=== PATIENT | male | born 1950 | race Caucasian/White ===

== ENCOUNTER 2017-06-16 20:15 | Emergency (ER) | payer OTHER ==
[~2017-06-16] VITALS: Ht 182.9 cm; Wt 80.1 kg
[~2017-06-16 20:15] MED LIST: ALLO100T PO; AMLO5TAB2 PO; ERGO500037 PO; HYDR12.55 PO; LOSA1TAB PO; NICO1DIS8 TD
[2017-06-16 20:16] VITALS: Ht 182.9 cm; Wt 80.1 kg
[2017-06-16] MEDS ORDERED: SODIUM CHLORIDE 0.9% 1000ML 1,000 ML IV STA (20:25)
[2017-06-16 20:27] VITALS: O2SAT 96
[2017-06-16 20:42] VITALS: TEMP 36.6
[2017-06-16 20:54] LABS: BASO % 0.5 %; BASO ABS # 0.05 K/uL (0-0.2); EOS % 7.1 %; EOS ABS # 0.75 K/uL (0-0.5); HEMATOCRIT 31.7 % (42-52); HEMOGLOBIN 10.7 g/dL (14.0-18.0); IG# 0.03 K/uL (0.00-0.02); LYMPH % 9.6 %; LYMPH ABS # 1.02 K/uL (1.2-3.4); MEAN CELL VOLUME 81.5 fL (80-100); MEAN CORPUSCULAR HEMOGLOBIN 27.5 pg (25-34); MEAN CORPUSCULAR HGB CONC 33.8 g/dl (32-36); MONO % 5.6 %; NEUT % 76.9 %; NEUT ABS # 8.18 K/uL (1.4-6.5); PLATELET COUNT 267 K/uL (130-400); RED CELL DISTRIBUTION WIDTH CV 16.9 % (11.5-14.5); RED CELL DISTRIBUTION WIDTH SD 50.8 fL (36.4-46.3); WHITE BLOOD COUNT 10.63 K/uL (4.8-10.8)
[2017-06-16 21:08] LABS: INR 0.9 (0.9-1.1); PTT PATIENT 24.5 SECONDS (21.0-31.0)
[2017-06-16 21:13] LABS: ALBUMIN 3.4 gm/dl (3.4-5.0); ALT/SGPT 14 U/L (12-78); BLOOD UREA NITROGEN 49 mg/dl (7-18); CALCIUM 8.6 mg/dl (8.5-10.1); CARBON DIOXIDE 22 mmol/L (21-32); CREATININE 3.49 mg/dl (0.60-1.40); GLUCOSE 79 mg/dl (70-99); LIPASE 309 U/L (73-393); POTASSIUM 4.6 mmol/L (3.5-5.1); SODIUM 133 mmol/L (136-145)
--- NOTE | 2017-06-16 21:14 | DIAGNOSTIC IMAGING REPORT ---
CT SCAN OF THE BRAIN WITHOUT IV CONTRAST CLINICAL HISTORY: Near syncope. COMPARISON STUDY: CT of the brain dated 09/03/2012. TECHNIQUE: Unenhanced axial CT scan of the brain is performed from the vertex to the skull base. A dose lowering technique was utilized adhering to the principles of ALARA. CT DOSE: 614.27 mGy.cm FINDINGS: Brain parenchyma: There are age-related involutional changes noting minimal subcortical and periventricular microangiopathic change. Left frontal and left temporal encephalomalacia is consistent with a remote insult. There is associated ex vacuo dilatation of the anterior horn of left lateral ventricle. There is no hemorrhage, mass effect, or evidence of acute territorial ischemia by CT criteria. Rosas-white matter is preserved. No extra-axial fluid collection is seen. Ventricles, sulci, cisterns: Prominent secondary to involutional change. Intracranial vasculature: There is minimal atherosclerotic calcification of the cavernous carotid arteries. Coils are suggested in the sylvian fissure along the course of the left middle cerebral artery. Calvarium: There are postoperative changes from left temporal craniotomy and craniectomy. Sinuses and mastoids: The visualized paranasal sinuses are clear. The mastoid air cells are well pneumatized. Orbits: The bony orbits are grossly intact. IMPRESSION: 1. There is no hemorrhage, mass effect, or evidence of acute territorial ischemia by CT criteria. 2. Postoperative changes involving the left convexity with foci of left frontal and left temporal encephalomalacia as above. Correlation with the patient's medical history will be required. Electronically signed by: Jeet Ramirez M.D. 06/16/2017 9:13 PM Dictated Date/Time: 06/16/2017 9:09 PM
[2017-06-16 21:24] LABS: ALKALINE PHOSPHATASE 60 U/L (45-117); AST/SGOT 10 U/L (15-37)
--- NOTE | 2017-06-16 21:30 | DIAGNOSTIC IMAGING REPORT ---
SINGLE VIEW CHEST CLINICAL HISTORY: Generalized weakness. Syncope. FINDINGS: An AP, portable, upright chest radiograph is compared to study dated 10/19/2011. The examination is degraded by portable technique and patient rotation. The heart is enlarged and there is atherosclerotic calcification of the thoracic aorta. Chronic interstitial thickening and apical scarring are similar to previous. Emphysematous change is suspected. No airspace consolidation or large pleural effusion is identified. Apparent density projecting over the left lateral lung base is likely related to overlying soft tissue density. No pneumothorax is seen. The skeletal structures are osteopenic. The bony thorax is grossly intact. IMPRESSION: 1. Cardiomegaly and suspect emphysema. No acute cardiopulmonary abnormality is seen. 2. Apparent increase in density overlying the lateral left lung bases is likely related to overlying soft tissue. Follow-up with a PA and lateral examination is recommended for reassessment. Electronically signed by: Jeet Ramirez M.D. 06/16/2017 9:29 PM Dictated Date/Time: 06/16/2017 9:27 PM
[2017-06-16] MEDS ORDERED: CALC0.2510 PO (21:50)
[2017-06-16 23:27] VITALS: BP 132/77; PULSE 75; O2SAT 95
--- NOTE | 2017-06-17 00:41 | EMERGENCY ROOM VISIT NOTE ---
History Report prepared by Joaquim: Robby Hoang Under the Supervision of: Dr. Melchor Whaley M.D. First contact with patient: 20:22 Chief Complaint: SYNCOPE (NEAR SYNCOPE) Stated Complaint: SYNCOPE - HX BRAIN ANEURISM History of Present Illness The patient is a 66 year old male who presents to the Emergency Room with complaints of a resolved near syncopal episode that occurred earlier today. The patient states that he was drinking some alcohol today and has not eaten food. He reports that he has been cold all day and has been sitting in front of the wood burner. The patient states that he felt like he had to burp, but reports he was not able to. He states that he went to play darts with his family, but was not able to hit near the dart board, which is unusual. The patient is accompanied by his daughter who states that the patient's nephew saw the patient fall to one knee and lower himself to the floor. He states that during this episode, he felt nauseous. She states that his eyes were glassy and his speech was slightly slurred. His daughter states that the patient's episode lasted for 15 minutes. The patient states that he is currently complaining of back pain, which he reports has been happening for two weeks. He reports that his legs have also been swelling more than normal for the last couple of weeks. The patient denies LOC, headache, fevers, chills, diaphoresis, visual changes, neck pain, chest pain, breathing difficulties, vomiting, abdominal pain, melena , hematochezia, urinary symptoms, numbness, weakness, lymphadenopathy, rash, or other complaints. He reports a history of PKD and an aneurysm in 2012. Source of History: patient, family Onset: earlier today Position: other (global) Quality: other (global) Timing: resolved Associated Symptoms: + nausea, + back pain Review of Systems See HPI for pertinent positives and negatives. A total of ten systems were reviewed and were otherwise negative. Past Medical & Surgical Medical Problems: (1) Benign hypertension (2) Emphysema (3) Polycystic kidney disease, adult type Family History Patient reports no known family medical history. Social History Smoking Status: Current Every Day Smoker Alcohol Use: occasionally Housing Status: lives with family Occupation Status: unemployed Current/Historical Medications Scheduled Amlodipine Besylate (Norvasc), 10 MG PO DAILY Calcitriol (Rocaltrol Cap), 0.25 MCG PO DAILY Sodium Bicarbonate (Antacid) (Sodium Bicarbonate), 1,300 MG PO TID Allergies Coded Allergies: Lisinopril (Unverified Adverse Reaction, Unknown, COUGH, 06/16/17) Physical Exam Vital Signs Date Time Temp Pulse Resp B/P (MAP) Pulse Ox O2 Delivery O2 Flow Rate FiO2 06/16/17 23:27 75 15 132/77 95 Room Air 06/16/17 23:20 74 21 06/16/17 23:05 74 20 06/16/17 23:00 72 18 06/16/17 22:32 77 16 132/87 98 Room Air 06/16/17 21:38 70 16 135/75 78 130/74 77 153/78 06/16/17 20:43 69 06/16/17 20:42 36.6 67 16 143/78 96 Room Air 06/16/17 20:27 96 Room Air 06/16/17 20:16 75 18 185/88 98 Room Air Physical Exam GENERAL: Awake, alert, well-appearing, in no distress HENT: Normocephalic, atraumatic. Oropharynx unremarkable. EYES: Normal conjunctiva. Sclera non-icteric. NECK: Supple. No nuchal rigidity. FROM. No JVD. RESPIRATORY: Clear to auscultation. CARDIAC: Regular rate, normal rhythm. Extremities warm and well perfused. Pulses equal. ABDOMEN: Soft, non-distended. No tenderness to palpation. No rebound or guarding. No masses. RECTAL: Deferred. MUSCULOSKELETAL: Chest examination reveals no tenderness. The back is symmetrical on inspection without obvious abnormality. There is no CVA tenderness to palpation. No joint edema. LOWER EXTREMITIES: Calves are equal size bilaterally and non-tender. 1+ edema. Chronic venous discoloration. NEURO: Normal sensorium. No sensory or motor deficits noted. SKIN: No rash or jaundice noted. Medical Decision & Procedures ER Provider Diagnostic Interpretation: Radiology results as stated below per my review and radiologist interpretation: SINGLE VIEW CHEST CLINICAL HISTORY: Generalized weakness. Syncope. FINDINGS: An AP, portable, upright chest radiograph is compared to study dated 10/19/2011. The examination is degraded by portable technique and patient rotation. The heart is enlarged and there is atherosclerotic calcification of the thoracic aorta. Chronic interstitial thickening and apical scarring are similar to previous. Emphysematous change is suspected. No airspace consolidation or large pleural effusion is identified. Apparent density projecting over the left lateral lung base is likely related to overlying soft tissue density. No pneumothorax is seen. The skeletal structures are osteopenic. The bony thorax is grossly intact. IMPRESSION: 1. Cardiomegaly and suspect emphysema. No acute cardiopulmonary abnormality is seen. 2. Apparent increase in density overlying the lateral left lung bases is likely related to overlying soft tissue. Follow-up with a PA and lateral examination is recommended for reassessment. Electronically signed by: Jeet Ramirez M.D. 06/16/2017 9:29 PM Dictated Date/Time: 06/16/2017 9:[address] SCAN OF THE BRAIN WITHOUT IV CONTRAST CLINICAL HISTORY: Near syncope. COMPARISON STUDY: CT of the brain dated 09/03/2012. TECHNIQUE: Unenhanced axial CT scan of the brain is performed from the vertex to the skull base. A dose lowering technique was utilized adhering to the principles of ALARA. CT DOSE: 614.27 mGy.cm FINDINGS: Brain parenchyma: There are age-related involutional changes noting minimal subcortical and periventricular microangiopathic change. Left frontal and left temporal encephalomalacia is consistent with a remote insult. There is associated ex vacuo dilatation of the anterior horn of left lateral ventricle. There is no hemorrhage, mass effect, or evidence of acute territorial ischemia by CT criteria. Rosas-white matter is preserved. No extra-axial fluid collection is seen. Ventricles, sulci, cisterns: Prominent secondary to involutional change. Intracranial vasculature: There is minimal atherosclerotic calcification of the cavernous carotid arteries. Coils are suggested in the sylvian fissure along the course of the left middle cerebral artery. Calvarium: There are postoperative changes from left temporal craniotomy and craniectomy. Sinuses and mastoids: The visualized paranasal sinuses are clear. The mastoid air cells are well pneumatized. Orbits: The bony orbits are grossly intact. IMPRESSION: 1. There is no hemorrhage, mass effect, or evidence of acute territorial ischemia by CT criteria. 2. Postoperative changes involving the left convexity with foci of left frontal and left temporal encephalomalacia as above. Correlation with the patient's medical history will be required. Electronically signed by: Jeet Ramirez M.D. 06/16/2017 9:13 PM Dictated Date/Time: 06/16/2017 9:09 PM Laboratory Results 06/16/17 20:35 Red Blood Count 3.89, Mean Corpuscular Volume 81.5, Mean Corpuscular Hemoglobin 27.5, Mean Corpuscular Hemoglobin Concent 33.8, Mean Platelet Volume 8.0, Neutrophils (%) (Auto) 76.9, Lymphocytes (%) (Auto) 9.6, Monocytes (%) (Auto) 5.6, Eosinophils (%) (Auto) 7.1, Basophils (%) (Auto) 0.5, Neutrophils # (Auto) 8.18, Lymphocytes # (Auto) 1.02, Monocytes # (Auto) 0.60, Eosinophils # (Auto) 0.75, Basophils # (Auto) 0.05 06/16/17 20:35 Test 06/16/17 20:35 White Blood Count 10.63 K/uL (4.8-10.8) Red Blood Count 3.89 M/uL (4.7-6.1) Hemoglobin 10.7 g/dL (14.0-18.0) Hematocrit 31.7 % (42-52) Mean Corpuscular Volume 81.5 fL (80-100) Mean Corpuscular Hemoglobin 27.5 pg (25-34) Mean Corpuscular Hemoglobin Concent 33.8 g/dl (32-36) Platelet Count 267 K/uL (130-400) Mean Platelet Volume 8.0 fL (7.4-10.4) Neutrophils (%) (Auto) 76.9 % Lymphocytes (%) (Auto) 9.6 % Monocytes (%) (Auto) 5.6 % Eosinophils (%) (Auto) 7.1 % Basophils (%) (Auto) 0.5 % Neutrophils # (Auto) 8.18 K/uL (1.4-6.5) Lymphocytes # (Auto) 1.02 K/uL (1.2-3.4) Monocytes # (Auto) 0.60 K/uL (0.11-0.59) Eosinophils # (Auto) 0.75 K/uL (0-0.5) Basophils # (Auto) 0.05 K/uL (0-0.2) RDW Standard Deviation 50.8 fL (36.4-46.3) RDW Coefficient of Variation 16.9 % (11.5-14.5) Immature Granulocyte % (Auto) 0.3 % Immature Granulocyte # (Auto) 0.03 K/uL (0.00-0.02) Prothrombin Time 9.9 SECONDS (9.0-12.0) Prothromb Time International Ratio 0.9 (0.9-1.1) Activated Partial Thromboplast Time 24.5 SECONDS (21.0-31.0) Partial Thromboplastin Ratio 0.9 Urine Color YELLOW Urine Appearance CLEAR (CLEAR) Urine pH 5.0 (4.5-7.5) Urine Specific Kennedy 1.015 (1.000-1.030) Urine Protein 2+ (NEG) Urine Glucose (UA) NEG (NEG) Urine Ketones NEG (NEG) Urine Occult Blood 1+ (NEG) Urine Nitrite NEG (NEG) Urine Bilirubin NEG (NEG) Urine Urobilinogen NEG (NEG) Urine Leukocyte Esterase TRACE (NEG) Urine WBC (Auto) 1-5 /hpf (0-5) Urine RBC (Auto) 0-4 /hpf (0-4) Urine Hyaline Casts (Auto) 0 /lpf (0-5) Urine Epithelial Cells (Auto) 5-10 /lpf (0-5) Urine Bacteria (Auto) NEG (NEG) Anion Gap 8.0 mmol/L (3-11) Est Creatinine Clear Calc Drug Dose 22.9 ml/min Estimated GFR () 20.0 Estimated GFR (Non- 17.2 BUN/Creatinine Ratio 14.2 (10-20) Calcium Level 8.6 mg/dl (8.5-10.1) Magnesium Level 2.5 mg/dl (1.8-2.4) Total Bilirubin 0.3 mg/dl (0.2-1) Direct Bilirubin < 0.1 mg/dl (0-0.2) Aspartate Amino Transf (AST/SGOT) 10 U/L (15-37) Alanine Aminotransferase (ALT/SGPT) 14 U/L (12-78) Alkaline Phosphatase 60 U/L (45-117) Total Protein 7.0 gm/dl (6.4-8.2) Albumin 3.4 gm/dl (3.4-5.0) Lipase 309 U/L (73-393) Thyroid Stimulating Hormone (TSH) 1.830 uIu/ml (0.300-4.500) Laboratory results reviewed by me Medications Administered Medications (Trade) Dose Ordered Sig/Santy Route Start Time Stop Time Status Last Admin Dose Admin Sodium Chloride 1,000 ml @ 125 mls/hr Q8H STAT IV 06/16/17 20:25 06/16/17 23:58 DC 06/16/17 21:43 125 MLS/HR ECG Indication: syncope Rate (beats per minute): 71 Rhythm: normal sinus Findings: 1st degree AV block, no acute ischemic change, other (Nonspecific IVCD) ED Course 2024: Ordered Sodium Chloride 1000 ml @ 125 mls/hr IV. 2034: The patient was evaluated in room B05. A complete history and physical exam was performed. 2325: I reevaluated the patient. Discussed results and discharge instructions: He verbalized understanding and agreement. The patient is ready for discharge. Medical Decision Prior records/ancillary studies reviewed. Triage Nursing notes reviewed and agree them. Additional history obtained from the family. The patient's history was concerning for near syncope. The patient did not eat today. He did consume some alcohol. This occurred after rising from a seated position. Differential diagnosis: Etiologies such as vasovagal event, infection, hypoglycemia, electrolyte abnormalities, cardiac sources, intracerebral event, toxicologic, neurologic, as well as others were entertained. Physical examination: As above. Nonfocal. ER treatment provided: IV hydration with normal saline On reassessment the patient felt better. The patient was able to ambulate without any recurrent symptoms. Diagnostics interpretation by me: ECG: Normal, without ischemia. No ectopy. The labs revealed an unremarkable CBC. Chemistry panel revealed chronic renal insufficiency. His creatinine is 3.4 and family states that is much better than usual. Urinalysis unremarkable. Imaging studies: CT scan and X-ray as above. No acute findings. The patient does not have any respiratory symptoms at this time. Patient was then notified of the recommended follow-up x-ray after discharge. This seems to be consistent with a near-syncopal event that likely occurred secondary to his not eating and consuming alcohol. He was not intoxicated in the emergency department. Clinically he did well. He was observed. He had resolution of symptoms prior to my seeing him. Family states he is doing well and it as at his baseline. He had no headache or symptoms to suggest subarachnoid hemorrhage. By the evaluation outlined above emergent etiologies such as infection, hypoglycemia, electrolyte abnormalities, cardiac sources, intracerebral event, toxicologic, neurologic,as well as others were deemed relatively unlikely. The patient and family were informed about the findings as listed above. All questions were answered and they were pleased with the treatment. Return instructions were outlined and the patient was discharged in stable condition. Outpatient prescription management: No change Referral: The patient was referred back to his primary care physician for follow-up in 2 to 3 days for a recheck of the current condition. Medication Reconcilliation Current Medication List: was personally reviewed by me Blood Pressure Screening Patient's blood pressure: Elevated blood pressure Blood pressure disposition: Referred to PCP Impression Primary Impression: Near syncope Scribe Attestation The scribe's documentation has been prepared under my direction and personally reviewed by me in its entirety. I confirm that the note above accurately reflects all work, treatment, procedures, and medical decision making performed by me. Departure Information Dispostion Home / Self-Care Referrals No Doctor, Assigned (PCP) José Jaime PA-C Forms HOME CARE DOCUMENTATION FORM, IMPORTANT VISIT INFORMATION Patient Instructions My [facility] Additional Instructions Rest. Drink plenty of fluids. Do not skip meals. Follow-up with your primary physician this week. Return to the ER for headache, passing out, difficulty breathing, chest pain, fevers, numbness, tingling, worsening of your condition, or as needed.
[2017-11-22] MEDS ORDERED: CALC0.5C2 PO (17:56)
[2017-11-22] MEDS ORDERED: METO50TA16 PO (17:58)
[2017-11-22] MEDS ORDERED: SODI650T8 PO (20:06)
[2017-12-14] MEDS ORDERED: AMLO10TA3 PO (10:57)
[2017-12-15] MEDS ORDERED: FLM4 PO (12:39)
== END 2017-06-16 23:45 | disposition home or self-care (01) ==
LOC: C.EDB 20:16
DX: R55 Syncope and collapse (principal); I44.0 Atrioventricular block, first degree; I10 Essential (primary) hypertension; J43.9 Emphysema, unspecified; Q61.3 Polycystic kidney, unspecified; F17.200 Nicotine dependence, unspecified, uncomplicated; Z79.899 Other long term (current) drug therapy; Z88.8 Allergy status to other drugs, medicaments and biological substances

== ENCOUNTER → 2017-09-09 | Outpatient (CLI) | payer OTHER ==
[~2017-09-09] MED LIST changes: -ALLO100T PO; +CALC0.2510 PO; -ERGO500037 PO; -HYDR12.55 PO; -LOSA1TAB PO; -NICO1DIS8 TD; +SODI650T8 PO
[2017-09-09 17:20] LABS: HEMATOCRIT 30.7 % (42-52); HEMOGLOBIN 10.3 g/dL (14.0-18.0); MEAN CELL VOLUME 79.9 fL (80-100); MEAN CORPUSCULAR HEMOGLOBIN 26.8 pg (25-34); MEAN CORPUSCULAR HGB CONC 33.6 g/dl (32-36); MEAN PLATELET VOLUME 8.5 fL (7.4-10.4); PLATELET COUNT 193 K/uL (130-400); RED CELL DISTRIBUTION WIDTH CV 18.9 % (11.5-14.5); RED CELL DISTRIBUTION WIDTH SD 55.3 fL (36.4-46.3); WHITE BLOOD COUNT 6.85 K/uL (4.8-10.8)
[2017-09-09 17:41] LABS: ALBUMIN 3.8 gm/dl (3.4-5.0); BLOOD UREA NITROGEN 57 mg/dl (7-18); CALCIUM 8.6 mg/dl (8.5-10.1); CARBON DIOXIDE 23 mmol/L (21-32); CREATININE 4.18 mg/dl (0.60-1.40); GLUCOSE 88 mg/dl (70-99); POTASSIUM 4.7 mmol/L (3.5-5.1); SODIUM 136 mmol/L (136-145)
[2017-09-09 17:46] LABS: PHOSPHORUS 4.2 mg/dl (2.5-4.9); TRANSFERRIN 243 mg/dl (200-360)
== END | disposition home or self-care (01) ==
LOC: C.LAB1850 15:55
PROVIDERS: ATTEND Internal Medicine Nephrology
DX: N18.9 Chronic kidney disease, unspecified (principal); E55.9 Vitamin D deficiency, unspecified

== ENCOUNTER → 2017-10-07 | Outpatient (CLI) | payer OTHER ==
[2017-10-07 17:20] LABS: HEMATOCRIT 29.6 % (42-52); HEMOGLOBIN 9.7 g/dL (14.0-18.0); MEAN CORPUSCULAR HEMOGLOBIN 26.9 pg (25-34); MEAN CORPUSCULAR HGB CONC 32.8 g/dl (32-36); MEAN PLATELET VOLUME 8.7 fL (7.4-10.4); PLATELET COUNT 208 K/uL (130-400); RED CELL DISTRIBUTION WIDTH CV 18.4 % (11.5-14.5); RED CELL DISTRIBUTION WIDTH SD 55.8 fL (36.4-46.3); WHITE BLOOD COUNT 5.14 K/uL (4.8-10.8)
[2017-10-07 21:07] LABS: ALBUMIN 3.6 gm/dl (3.4-5.0); BLOOD UREA NITROGEN 70 mg/dl (7-18); CALCIUM 8.4 mg/dl (8.5-10.1); CARBON DIOXIDE 25 mmol/L (21-32); CREATININE 4.67 mg/dl (0.60-1.40); GLUCOSE 81 mg/dl (70-99); PHOSPHORUS 5.4 mg/dl (2.5-4.9); POTASSIUM 4.9 mmol/L (3.5-5.1); SODIUM 137 mmol/L (136-145); URIC ACID 8.2 mg/dl (2.6-7.2)
== END | disposition home or self-care (01) ==
LOC: C.LABPBG 11:23
PROVIDERS: ATTEND Internal Medicine Nephrology
DX: M10.9 Gout, unspecified (principal); N18.9 Chronic kidney disease, unspecified

== ENCOUNTER 2019-04-28 16:46 | Inpatient (IN) ==
[2019-04-28] MEDS ORDERED: ALBUT/IPRATROP 3MG/0.5MG NEB 3 ML VIAL NEB ONE (16:55)
[2019-04-28] MEDS ORDERED: PIPERACILLIN/TAZOBACTAM 4.5 GM/120 ML BAG IV ONE (17:00)
[2019-04-28] MEDS ORDERED: LEVOFLOXACIN/D5W 750 MG/150 ML BAG IV STA (17:00)
[2019-04-28] MEDS ORDERED: PIPERACILL/TAZOBAC CONSULT ACTIVE PRN ×2 (17:00→20:06)
[2019-04-28] MEDS ORDERED: SODIUM CHLORIDE 0.9% 1000ML 500 ML IV ONE (17:00)
--- NOTE | 2019-04-28 17:08 | XRay Report ---
XR chest 1V portable CLINICAL HISTORY: Sepsis COMPARISON STUDY: 01/04/2019 FINDINGS: The heart is normal in size. There are right lower lung zone airspace opacities suspicious for pneumonia. There is no overt failure. 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 IMPRESSION: Right lower lobe airspace opacities suspicious for pneumonia. Clinical and radiographic f ollow-up is recommended. Electronically signed by: Gianfranco Mar M.D. 04/28/2019 5:07 PM
[2019-04-28 17:40] LABS: Basophils # (auto) 0.02 K/uL (0-0.2); Basophils % (auto) 0.2 %; Eosinophils # (auto) 0.03 K/uL (0-0.5); Eosinophils % (auto) 0.2 %; Hematocrit (blood only) 33.7 % (42-52); Hemoglobin 11.3 g/dL (14.0-18.0); Immature Granulocytes # (auto) 0.07 K/uL (0.00-0.02); Immature Granulocytes % (auto) 0.6 %; Lymphocytes # (auto) 0.82 K/uL (1.2-3.4); Lymphocytes % (auto) 6.5 %; Mean Corpuscular Hemoglobin 29.5 pg (25-34); Mean Corpuscular Hgb Conc 33.5 g/dL (32-36); Monocytes # (auto) 0.91 K/uL (0.11-0.59); Monocytes % (auto) 7.3 %; Neutrophils # (auto) 10.67 K/uL (1.4-6.5); Neutrophils % (auto) 85.2 %; Platelet Count 258 K/uL (130-400); RDW Coefficient of Variation 16.4 % (11.5-14.5); RDW Standard Deviation 53.3 fL (36.4-46.3); Red Blood Count 3.83 M/uL (4.7-6.1); White Blood Count 12.52 K/uL (4.8-10.8)
[2019-04-28 17:48] LABS: INR 1.1 (0.9-1.1); Partial Thromboplastin Time 26.9 Seconds (21.0-31.0); Prothrombin Time 10.9 Seconds (9.0-12.0)
[2019-04-28 17:48] LABS: Influenza A virus by PCR Neg for Influ A (Neg); Influenza B virus by PCR Neg for Influ B (Neg)
[2019-04-28 17:50] LABS: iSTAT Creatinine 12.9 mg/dl (0.6-1.3); iSTAT Hemoglobin 10.5 g/dl (14.0-18.0); iSTAT Ionized Calcium 1.22 mmol/l (1.12-1.32); iSTAT Potassium 3.3 mEq/L (3.3-5.0)
[2019-04-28 18:08] LABS: Alanine Aminotransferase 11 U/L (12-78); Albumin Globulin Ratio 0.7 (0.9-2); Albumin Level 2.6 gm/dl (3.4-5.0); Alkaline Phosphatase 43 U/L (45-117); Aspartate Aminotransferase 4 U/L (15-37); BUN Creatinine Ratio 5.6 (10-20); Bilirubin,Total 0.3 mg/dl (0.2-1); Blood Urea Nitrogen 67 mg/dl (7-18); Calcium 10.1 mg/dl (8.5-10.1); Carbon Dioxide 24 mmol/L (21-32); Chloride 99 mmol/L (98-107); Creatine Kinase 42 U/L (39-308); Creatinine Clr Calc Pharmacy 5.7 ml/min; Est GFR (African American) 4.4; Est GFR (Non-African American) 3.8; Globulin 3.8 gm/dl (2.5-4.0); Glucose 178 mg/dl (70-99); Magnesium 1.8 mg/dl (1.8-2.4); NT Pro B Type Natriuretic Pept 10883 pg/ml (0-900); Phosphorus 4.3 mg/dl (2.5-4.9); Potassium 3.3 mmol/L (3.5-5.1); Sodium 135 mmol/L (136-145); Total Protein 6.4 gm/dl (6.4-8.2); Troponin I < 0.015 ng/ml (0-0.045)
--- NOTE | 2019-04-28 18:46 | History & Physical Report ---
Date of Service April 28, 2019 Assessment & Plan (1) PNA (pneumonia): Noted on CXR Started on levaquin/zosyn in the ED, will continue zosyn Blood cx pending WBC elevated, monitor Flu neg (2) COPD (chronic obstructive pulmonary disease): No formal dx, but noted for wheezing and likely in exacerbation due to PNA nebs with BID mucomyst solumedrol 40mg BID Will need formal PFTs as outpt once recovered from PNA (3) Polycystic kidney disease, adult type: Currently awaiting transplant (4) Chronic kidney disease, stage 5: PD HS Follows with Dr. Cordon and Dr. Romo PD as at home Nephro c/s pending Has been working with nephro for elevated cr Cr 12.0 on admission, which is improved from recent 13.6 (5) PTSD (post-traumatic stress disorder): Pt has hx of marijuana use, started when he was in [place]. He states that he smokes 3-4x/day. Family is in the room and states that he tried to quit smoking completely and had terrible flashbacks. It was determined that the [facility] [place] helps control his PTSD and this should be continued. [facility] as [facility]. Pt states that he can go without for a few days and have no issues. Family states he will be fine during his admission without it. (6) Hypokalemia: Mild, will leave management to nephro (7) HTN (hypertension): continue home meds (8) Tobacco use disorder: Currently working towards cessation and down to 10 cigs/day Declines nicotine patch (9) DVT prophylaxis: Heparin for DVT proph History of Present Illness Primary Care Provider: Tj Avalos MD 68 y/o M c/o SOB and cough. Pt states he has been having issues for about the last 4 days and getting worse. He has been getting SOB with all ambulation and lately at rest. He is even SOB with prolonged conversation prior to arrival. He has not had any appetite and has had nothing to eat x2 days, which is not typical for him. Family states that he is usually quite active but he has not been able to do anything the last 2 days. Pt states he has never been sick like this in the past. Pt denies fever, chest pain, abd pain, n/v/c/d, LE pain or swelling. Pt was given abx, nebs, steroids in the ED and states that he feels a bit better than prior, but not much. He is no longer SOB with conversation, but has not been OOB. Pt does not wear home O2 or have hx of inhaler use. Pt has hx of marijuana use, started when he was in [place]. He states that he smokes 3-4x/day. Family is in the room and states that he tried to quit smoking completely and had terrible flashbacks. It was determined that the [place] helps control his PTSD and this should be continued. [facility] and [facility] are [facility] of his use as well. Pt states that he can go without for a few days and have no issues. Family states he will be fine during his admission without it. Allergies Allergy/AdvReac Type Severity Reaction Status Date / Time lisinopril AdvReac Unknown COUGH Verified 04/28/19 17:56 Home Medications Home Medications Medication Instructions Recorded Confirmed Type amlodipine 10 mg tablet 10 mg PO QAM 02/17/19 04/28/19 History acetaminophen [Tylenol Arthritis 1,300 mg PO QAM 04/19/19 04/28/19 History Pain] bumetanide 1 mg PO BID 04/19/19 04/28/19 History losartan 50 mg PO QAM 04/19/19 04/28/19 History sevelamer carbonate [Renvela] 2,400 mg PO TIDM 04/19/19 04/28/19 History tizanidine 4 mg PO Q6H PRN 04/19/19 04/28/19 History metoprolol tartrate 25 mg PO BID 04/28/19 04/28/19 History Past Med/Surg History Medical History CKD (chronic kidney disease) Social History Preferred Language: Nepali Feels Safe at Home: Yes Smoking Status: Current every day smoker Cigarettes Per Day: 10 ; Hx Alcohol Use: Yes Alcohol Intake Frequency Comment: None x2 years Hx Substance Use: Yes (daily marijuana use for PTSD) Review of Systems Review of Systems: Pertinent positives and negatives reviewed in HPI--all others negative Physical Exam Constitutional: WD/WN, vitals as above Eyes: normal visual munson by confrontation and + anicteric sclerae Neck: normal visual inspection and trachea midline Respiratory: normal respiratory effort; no respiratory distress Auscultation: + crackles and + wheezes Cardiovascular: Rate/Rhythm: regular rate and regular rhythm Gastrointestinal (Abdomen): Inspection/Auscultation: abdomen not distended Percussion/Palpation: abdomen soft; abdomen nontender Musculoskeletal: Head/Neck/Chest: normocephalic and head atraumatic negative for edema, peripheral pulses intact Skin: no rashes, warm and dry Neurologic: awake; not confused Speech / Cognition: normal speech Psychiatric: A+Ox3, euthymic affect Results & Data Vital Signs (Past 12 Hours) Vital Signs Temp Pulse Pulse Resp BP BP Pulse Ox 04/28/19 17:27 77 20 93 04/28/19 17:11 82 14 139/86 95 04/28/19 17:06 96 04/28/19 17:04 96 04/28/19 16:51 37.0 C 83 30 H 126/79 99 Diagnostic Findings CXR: RLL PNA Code Status & VTE Plan Code Status Full code. Daughter states he has a living will VTE Prophylaxis Plan VTE Prophylaxis will be ordered: Yes PG Care Time/CCT Total # of Minutes Spent Total Time Spent with Patient: Total time spent is greater than 50% in coordination of care (as documented) at patient's floor/unit and/or counseling patient:
[2019-04-28] MEDS: SEVELAMER HCL 800 MG TABLET PO SCH (19:07)
--- NOTE | 2019-04-28 19:42 | Emergency Department Note ---
Entered by Anh Chery acting as a scribe for History of Present Illness General Chief complaint: Shortness of Breath/Dyspnea Stated complaint: SOB,COUGH Time Seen by Provider: 04/28/19 16:47 History of Present Illness Provider complaint: shortness of breath Onset (ago): day(s) 2 Pain Consistency: + other (worsening) Maximum Pain Intensity: 0 Quality: + other (shortness of breath) Associated symptoms: + cough (productive cough with yellow phlegm), + weakness and + other (dialysis at night, still makes some urine, oxygen saturation 88% wh en he walks) Treatments prior to arrival: none The patient is a 68 year old male who presents to the ED with complaints of worsening shortness of breath that started 2 days ago. Per daughter, the patient has been weaker than usual for the past 2 days as well. The patient notes that he is on dialysis at night. The patient states that he still makes a little bit of urine. The patient states that he has had a productive cough with yellow phlegm. Per daughter, the patients oxygen saturation has been 88% when he walks. The patient denies receiving any treatments prior to arrival. Home Medications Home Medications Medication Instructions Recorded Confirmed Type amlodipine 10 mg tablet 10 mg PO QAM 02/17/19 04/28/19 History acetaminophen [Tylenol Arthritis 1,300 mg PO QAM 04/19/19 04/28/19 History Pain] bumetanide 1 mg PO BID 04/19/19 04/28/19 History losartan 50 mg PO QAM 04/19/19 04/28/19 History sevelamer carbonate [Renvela] 2,400 mg PO TIDM 04/19/19 04/28/19 History tizanidine 4 mg PO Q6H PRN 04/19/19 04/28/19 History metoprolol tartrate 25 mg PO BID 04/28/19 04/28/19 History Allergies Allergy/AdvReac Type Severity Reaction Status Date / Time lisinopril AdvReac Unknown COUGH Verified 04/28/19 17:56 Past Med/Surg History Medical History Polycystic kidney disease, adult type (Chronic 09/03/12) Benign prostate hyperplasia (Chronic) Secondary hyperparathyroidism (of renal origin) (Chronic) Intracranial hemorrhage (Resolved ~2014) Chronic kidney disease, stage 5 (Chronic) Anemia (Chronic) CKD (chronic kidney disease) Social History Preferred Language: Bruneian Communication Ability: Effective Genetic Technologist Required: No Beliefs That Will Affect Care: None marital status: Unknown Current Living Situation: Family Feels Safe at Home: Yes Smoking Status: Current every day smoker Tobacco Type: cigarettes ; Cigarettes Per Day: 10 ; Hx Alcohol Use: No Hx Substance Use: Yes substance use type: marijuana Last Used Substance: Hours (ago) Review of Systems See HPI for pertinent positives & negatives. and A total of 10 systems reviewed and were otherwise negative Physical Exam Vital Signs Vital Signs - 24 hr 04/28/19 16:51 04/28/19 17:04 04/28/19 17:06 Temperature 37.0 C Temperature Source Oral Sepsis Recent Fever Within 48 Hours No Sepsis New/Unexplained Change in Mental Status No Sepsis Action Taken by Nursing No Action Required Oxygen Flow Rate - Titration Pulse Oximetry Post Tiitration Pulse Rate 83 Pulse Rate [Apical] Pulse Rhythm Regular Pulse Rhythm [Apical] Pulse Strength Normal Pulse Strength [Apical] Respiratory Rate 30 H Respiratory Effort / Characteristics Non-Labored Respiratory Depth Normal Respiratory Pattern Regular Blood Pressure 126/79 Blood Pressure [Right Arm] Blood Pressure Mean 94 Blood Pressure Mean [Right Arm] Blood Pressure Position Sitting Blood Pressure Position [Right Arm] Pulse Oximetry 99 96 96 Oxygen Delivery Method Nasal Cannula Nasal Cannula Nasal Cannula Oxygen Flow Rate 2 2 2 04/28/19 17:11 04/28/19 17:27 04/28/19 18:48 Temperature Temperature Source Sepsis Recent Fever Within 48 Hours Sepsis New/Unexplained Change in Mental Status Sepsis Action Taken by Nursing Oxygen Flow Rate - Titration 3 Pulse Oximetry Post Tiitration 91 Pulse Rate Pulse Rate [Apical] 82 77 Pulse Rhythm Pulse Rhythm [Apical] Regular Pulse Strength Pulse Strength [Apical] Normal Respiratory Rate 14 20 Respiratory Effort / Characteristics Spontaneous Non-Labored Spontaneous Respiratory Depth Normal Respiratory Pattern Regular Blood Pressure Blood Pressure [Right Arm] 139/86 Blood Pressure Mean Blood Pressure Mean [Right Arm] 103 Blood Pressure Position Blood Pressure Position [Right Arm] Sitting Pulse Oximetry 95 93 88 L Oxygen Delivery Method Room Air Nasal Cannula Room Air Oxygen Flow Rate 3 GENERAL: Awake, alert, cachectic appearing, in no acute distress HENT: Normocephalic, atraumatic. Oropharynx unremarkable. EYES: Normal conjunctiva. Sclera non-icteric. NECK: Supple. No nuchal rigidity. FROM. No JVD. RESPIRATORY: Bilateral wheezing present. CARDIAC: Regular rate, normal rhythm. Extremities warm and well perfused. Pulses equal. ABDOMEN: Soft, non-distended. No tenderness to palpation. No rebound or guarding. No masses. RECTAL: Deferred. MUSCULOSKELETAL: Chest examination reveals no tenderness. The back is symmetrical on inspection without obvious abnormality. There is no CVA tenderness to palpation. No joint edema. LOWER EXTREMITIES: Calves are equal size bilaterally and non-tender. No edema. No discoloration. NEURO: Normal sensorium. No sensory or motor deficits noted. SKIN: No rash or jaundice noted. Course 1649: Past medical records reviewed. The patient was evaluated in room B12B. A complete history and physical exam was performed. 1815: I [facility] the [facility] She will evaluate the patient for further management. Consultations Consultation #1: I discussed the patient's case with Dr. Jung [facility] Hospitalist. She will evaluate the patient for further management. Time: 18:16 Administered Medications Acetaminophen (Tylenol) 1,000 mg PO QAM [facility] Stop: 05/29/19 08:59 Last Admin: 04/30/19 09:26 Dose: 1,000 mg Documented by: [id number] Admin: 04/29/19 08:35 Dose: 1,000 mg Documented by: [id number] Acetylcysteine (Mucomyst 20%) 5 ml INH BIDR [facility] Stop: 05/28/19 20:59 Last Admin: 04/30/19 19:18 Dose: 5 ml Documented by: [id number] Admin: 04/30/19 06:57 Dose: 5 ml Documented by: [id number] Admin: 04/29/19 19:24 Dose: 5 ml Documented by: [id number] Admin: 04/29/19 10:59 Dose: Not Given Documented by: [id number] Admin: 04/28/19 20:28 Dose: 5 ml Documented by: [id number] Albuterol (Duoneb) 3 ml NEB Q4R [facility] Stop: 05/28/19 20:05 Last Admin: 05/01/19 02:43 Dose: Not Given Documented by: [id number] Admin: 04/30/19 23:05 Dose: 3 ml Documented by: [id number] Admin: 04/30/19 19:18 Dose: 3 ml Documented by: [id number] Admin: 04/30/19 15:01 Dose: 3 ml Documented by: [id number] Admin: 04/30/19 10:46 Dose: 3 ml Documented by: [id number] Admin: 04/30/19 06:57 Dose: 3 ml Documented by: [id number] Admin: 04/30/19 03:16 Dose: 3 ml Documented by: [id number] Admin: 04/29/19 23:34 Dose: 3 ml Documented by: [id number] Admin: 04/29/19 19:25 Dose: 3 ml Documented by: [id number] Admin: 04/29/19 14:56 Dose: 3 ml Documented by: [id number] Admin: 04/29/19 10:59 Dose: 3 ml Documented by: [id number] Admin: 04/29/19 07:04 Dose: 3 ml Documented by: [id number] Admin: 04/29/19 03:36 Dose: 3 ml Documented by: [id number] Admin: 04/28/19 23:19 Dose: 3 ml Documented by: [id number] Admin: 04/28/19 20:27 Dose: 3 ml Documented by: [id number] Amlodipine Besylate (Norvasc) 10 mg PO QAM [facility] Stop: 05/29/19 08:59 Last Admin: 04/30/19 09:26 Dose: 10 mg Documented by: [id number] Admin: 04/29/19 08:34 Dose: 10 mg Documented by: [id number] Bumetanide (Bumex) 1 mg PO BID17 [facility] Stop: 05/28/19 20:59 Last Admin: 04/30/19 17:09 Dose: 1 mg Documented by: [id number] Admin: 04/30/19 09:28 Dose: 1 mg Documented by: [id number] Admin: 04/29/19 17:03 Dose: 1 mg Documented by: [id number] Admin: 04/29/19 08:34 Dose: 1 mg Documented by: [id number] Admin: 04/28/19 21:07 Dose: 1 mg Documented by: [id number] Heparin Sodium (Porcine) (Heparin Sodium (Porcine)) 5,000 units SQ Q8 [facility] Stop: 05/28/19 21:59 Last Admin: 04/30/19 22:34 Dose: 5,000 units Documented by: [id number] Cosigned by: [id number] Admin: 04/30/19 14:05 Dose: 5,000 units Documented by: [id number] Cosigned by: [id number] Admin: 04/30/19 06:20 Dose: 5,000 units Documented by: [id number] Cosigned by: [id number] Admin: 04/29/19 21:37 Dose: 5,000 units Documented by: [id number] Cosigned by: [id number] Admin: 04/29/19 14:22 Dose: 5,000 units Documented by: [id number] Cosigned by: [id number] Admin: 04/29/19 05:02 Dose: 5,000 units Documented by: [id number] Cosigned by: [id number] Admin: 04/28/19 21:07 Dose: 5,000 units Documented by: [id number] Cosigned by: [id number] Losartan Potassium (Cozaar) 50 mg PO QAM [facility] Stop: 05/29/19 08:59 Last Admin: 04/30/19 09:26 Dose: 50 mg Documented by: [id number] Admin: 04/29/19 08:34 Dose: 50 mg Documented by: [id number] Metoprolol Tartrate (Lopressor) 25 mg PO BID [facility] Stop: 05/28/19 20:59 Last Admin: 04/30/19 20:16 Dose: 25 mg Documented by: [id number] Admin: 04/30/19 09:27 Dose: 25 mg Documented by: [id number] Admin: 04/29/19 20:41 Dose: 25 mg Documented by: [id number] Admin: 04/29/19 08:34 Dose: 25 mg Documented by: [id number] Admin: 04/28/19 21:07 Dose: 25 mg Documented by: [id number] Ondansetron HCl (Zofran) 4 mg IV Q6H PRN PRN Reason: Nausea Stop: 05/28/19 20:05 Last Admin: 04/30/19 02:02 Dose: 4 mg Documented by: [id number] Sevelamer HCl (Renagel) 2,400 mg PO TIDM [facility] Stop: 05/29/19 07:59 Last Admin: 04/30/19 17:09 Dose: 2,400 mg Documented by: [id number] Admin: 04/30/19 11:54 Dose: 2,400 mg Documented by: [id number] Admin: 04/30/19 09:27 Dose: 2,400 mg Documented by: [id number] Admin: 04/29/19 17:04 Dose: 2,400 mg Documented by: [id number] Admin: 04/29/19 11:59 Dose: 2,400 mg Documented by: [id number] Admin: 04/28/19 19:07 Dose: 2,400 mg Documented by: [id number] Discontinued Medications Albuterol (Duoneb) 12 ml NEB ONE ONE Stop: 04/28/19 16:56 Last Admin: 04/28/19 17:27 Dose: 12 ml Documented by: [id number] Levofloxacin/Dextrose (Levaquin/D5w) 750 mg in 150 mls @ 100 mls/hr IV NOW STA Stop: 04/28/19 18:29 Last Infusion: 04/28/19 19:37 Dose: 0 mls/hr Documented by: [id number] Admin: 04/28/19 18:05 Dose: 100 mls/hr Documented by: [id number] Piperacillin Sod/Tazobactam Sod (Zosyn) 4.5 gm in 120 mls @ 240 mls/hr IV NOW ONE Stop: 04/28/19 17:29 Last Infusion: 04/28/19 18:05 Dose: 0 mls/hr Documented by: [id number] Admin: 04/28/19 17:25 Dose: 240 mls/hr Documented by: [id number] Sodium Chloride (Nss 1000ml) 500 mls @ 999 mls/hr IV .Q31M ONE Stop: 04/28/19 17:30 Last Infusion: 04/28/19 18:37 Dose: 0 mls/hr Documented by: [id number] Admin: 04/28/19 17:25 Dose: 999 mls/hr Documented by: [id number] Methylprednisolone 40 mg/ (Syringe) 0.64 mls @ 1.5 mls/min IV BID [facility] Stop: 05/28/19 20:59 Last Admin: 04/30/19 09:28 Dose: 1.5 mls/min Documented by: [id number] Admin: 04/29/19 20:42 Dose: 1.5 mls/min Documented by: [id number] Admin: 04/29/19 08:35 Dose: 1.5 mls/min Documented by: [id number] Admin: 04/28/19 21:06 Dose: 1.5 mls/min Documented by: [id number] Piperacillin Sod/Tazobactam (Sod 3.375 gm/ Dextrose) 115 mls @ 28.75 mls/hr IV Q12H [facility]; Protocol Stop: 04/30/19 23:55 Last Infusion: 04/30/19 18:07 Dose: 0 mls/hr Documented by: [id number] Admin: 04/30/19 14:05 Dose: 28.8 mls/hr Documented by: [id number] Infusion: 04/30/19 06:12 Dose: 0 mls/hr Documented by: [id number] Admin: 04/30/19 01:56 Dose: 28.8 mls/hr Documented by: [id number] Infusion: 04/29/19 18:36 Dose: 0 mls/hr Documented by: [id number] Admin: 04/29/19 14:28 Dose: 28.8 mls/hr Documented by: [id number] Infusion: 04/29/19 05:05 Dose: 0 mls/hr Documented by: [id number] Admin: 04/29/19 01:05 Dose: 28.8 mls/hr Documented by: [id number] Bumetanide 4 mg/ Syringe 16 mls @ 4 mls/min IV ONE ONE Stop: 04/28/19 20:43 Last Admin: 04/28/19 21:13 Dose: 4 mls/min Documented by: [id number] Magnesium Oxide (Mag-Ox) 400 mg PO ONE ONE Stop: 04/29/19 17:01 Last Admin: 04/29/19 17:21 Dose: 400 mg Documented by: [id number] Medical Decision Making Differential Diagnosis Differential diagnosis: Etiologies such as infections, reactive airway disease, COPD, pneumonia, pleural effusion, pulmonary edema, ARDS, pneumothorax, CHF, cardiac ischemia, cardiac tamponade, dysrhythmia, anemia, pulmonary embolism, musculoskeletal, gastrointestinal process, as well as others were entertained. Medical Records Attestation: I reviewed the patient's medical records. Home Medications Current Medication List: was personally reviewed by me Laboratory Data Attestation: I reviewed the patient's lab results. Result diagrams: 04/30/19 06:22 04/30/19 06:22 Lab Results 04/28/19 04/28/19 04/28/19 Range/Units 17:02 17:20 17:20 WBC 12.52 H (4.8-10.8) K/uL RBC 3.83 L (4.7-6.1) M/uL Hgb 11.3 L (14.0-18.0) g/dL POC Hgb (14.0-18.0) g/dl Hct 33.7 L (42-52) % POC Hct (42-52) % MCV 88.0 (80-100) fL MCH 29.5 (25-34) pg MCHC 33.5 (32-36) g/dL RDW Std Deviation 53.3 H (36.4-46.3) fL RDW Coeff of Giovana 16.4 H (11.5-14.5) % Plt Count 258 (130-400) K/uL MPV 9.0 (7.4-10.4) fL Immature Gran % (Auto) 0.6 % Neut % (Auto) 85.2 % Lymph % (Auto) 6.5 % Thayer % (Auto) 7.3 % Eos % (Auto) 0.2 % Baso % (Auto) 0.2 % Immature Gran # (Auto) 0.07 H (0.00-0.02) K/uL Neut # (Auto) 10.67 H (1.4-6.5) K/uL Lymph # (Auto) 0.82 L (1.2-3.4) K/uL Thayer # (Auto) 0.91 H (0.11-0.59) K/uL Eos # (Auto) 0.03 (0-0.5) K/uL Baso # (Auto) 0.02 (0-0.2) K/uL PT 10.9 (9.0-12.0) Seconds INR 1.1 (0.9-1.1) APTT 26.9 (21.0-31.0) Seconds PTT Ratio 1.0 POC Sodium (135-144) mEq/L Sodium (136-145) mmol/L POC Potassium (3.3-5.0) mEq/L Potassium (3.5-5.1) mmol/L POC Chloride (101-112) mEq/L Chloride (98-107) mmol/L Carbon Dioxide (21-32) mmol/L POC Total CO2 (24-31) mEq/l Anion Gap (3-11) POC Anion Gap (16-25) mmol/L POC BUN (7-18) mg/dl BUN (7-18) mg/dl Creatinine (0.6-1.4) mg/dl POC Creatinine (0.6-1.3) mg/dl Est Cr Clr Drug Dosing ml/min Est GFR ( Amer) Est GFR (Non-Af Amer) BUN/Creatinine Ratio (10-20) Glucose (70-99) mg/dl POC Glucose (other) (70-99) mg/dl Lactate (0.4-2.0) mmol/L Calcium (8.5-10.1) mg/dl POC Ioniz Calcium Sesar (1.12-1.32) mmol/l Phosphorus (2.5-4.9) mg/dl Magnesium (1.8-2.4) mg/dl Total Bilirubin (0.2-1) mg/dl AST (15-37) U/L ALT (12-78) U/L Alkaline Phosphatase (45-117) U/L Total Creatine Kinase (39-308) U/L CK-MB (CK-2) (0.5-3.6) ng/ml CK/CKMB % Calc (0-3.0) Troponin I (0-0.045) ng/ml NT-Pro-B Natriuret Pep (0-900) pg/ml Total Protein (6.4-8.2) gm/dl Albumin (3.4-5.0) gm/dl Globulin (2.5-4.0) gm/dl Albumin/Globulin Ratio (0.9-2) Influenza Type A (PCR) Neg for Influ A (Neg) Influenza Type B (PCR) Neg for Influ B (Neg) 04/28/19 04/28/19 04/28/19 Range/Units 17:20 17:20 17:36 WBC (4.8-10.8) K/uL RBC (4.7-6.1) M/uL Hgb (14.0-18.0) g/dL POC Hgb 10.5 L (14.0-18.0) g/dl Hct (42-52) % POC Hct 31 L (42-52) % MCV (80-100) fL MCH (25-34) pg MCHC (32-36) g/dL RDW Std Deviation (36.4-46.3) fL RDW Coeff of Giovana (11.5-14.5) % Plt Count (130-400) K/uL MPV (7.4-10.4) fL Immature Gran % (Auto) % Neut % (Auto) % Lymph % (Auto) % Thayer % (Auto) % Eos % (Auto) % Baso % (Auto) % Immature Gran # (Auto) (0.00-0.02) K/uL Neut # (Auto) (1.4-6.5) K/uL Lymph # (Auto) (1.2-3.4) K/uL Thayer # (Auto) (0.11-0.59) K/uL Eos # (Auto) (0-0.5) K/uL Baso # (Auto) (0-0.2) K/uL PT (9.0-12.0) Seconds INR (0.9-1.1) APTT (21.0-31.0) Seconds PTT Ratio POC Sodium 134 L (135-144) mEq/L Sodium 135 L (136-145) mmol/L POC Potassium 3.3 (3.3-5.0) mEq/L Potassium 3.3 L (3.5-5.1) mmol/L POC Chloride 98 L (101-112) mEq/L Chloride 99 (98-107) mmol/L Carbon Dioxide 24 (21-32) mmol/L POC Total CO2 23 L (24-31) mEq/l Anion Gap 12.0 H (3-11) POC Anion Gap 18.0 (16-25) mmol/L POC BUN 62 H (7-18) mg/dl BUN 67 H (7-18) mg/dl Creatinine 12.00 H* (0.6-1.4) mg/dl POC Creatinine 12.9 H* (0.6-1.3) mg/dl Est Cr Clr Drug Dosing 5.7 ml/min Est GFR ( Amer) 4.4 Est GFR (Non-Af Amer) 3.8 BUN/Creatinine Ratio 5.6 L (10-20) Glucose 178 H (70-99) mg/dl POC Glucose (other) 161 H (70-99) mg/dl Lactate 2.8 H* (0.4-2.0) mmol/L Calcium 10.1 (8.5-10.1) mg/dl POC Ioniz Calcium Sesar 1.22 (1.12-1.32) mmol/l Phosphorus 4.3 (2.5-4.9) mg/dl Magnesium 1.8 (1.8-2.4) mg/dl Total Bilirubin 0.3 (0.2-1) mg/dl AST 4 L (15-37) U/L ALT 11 L (12-78) U/L Alkaline Phosphatase 43 L (45-117) U/L Total Creatine Kinase 42 (39-308) U/L CK-MB (CK-2) 1.0 (0.5-3.6) ng/ml CK/CKMB % Calc 2.4 (0-3.0) Troponin I < 0.015 (0-0.045) ng/ml NT-Pro-B Natriuret Pep 23439 H (0-900) pg/ml Total Protein 6.4 (6.4-8.2) gm/dl Albumin 2.6 L (3.4-5.0) gm/dl Globulin 3.8 (2.5-4.0) gm/dl Albumin/Globulin Ratio 0.7 L (0.9-2) Influenza Type A (PCR) (Neg) Influenza Type B (PCR) (Neg) Imaging Data Radiologist's Impression: Radiology results as stated below per my review and the radiologist's interpretation: XR chest 1V portable CLINICAL HISTORY: Sepsis COMPARISON STUDY: 01/04/2019 FINDINGS: The heart is normal in size. There are right lower lung zone airspace opacities suspicious for pneumonia. There is no overt failure. There are no significant pleural effusions.[Underlying chronic lung disease is suspected. IMPRESSION: Right lower lobe airspace opacities suspicious for pneumonia. Clinical and radiographic follow-up is recommended. Electronically signed by: Gianfranco Mar M.D. 04/28/2019 5:07 PM Blood Pressure Blood Pressure Findings: Elevated blood pressure Blood Pressure Disposition: further management by hospitalist AP Narrative This is a 68-year-old male who presents emergency department in acute distress. Patient was placed into a trauma room and placed on oxygen. X-ray was immediately called and the patient appears to have a infiltrate on chest x-ray. For this reason blood cultures were obtained and the patient was started on breathing treatments. He was started on broad-spectrum antibiotics including Zosyn and Levaquin. I did discuss the case with the hospitalist service who agreed to admit the patient. Patient and family were in agreement with the treatment plan. Impression & Plan HTN (hypertension), PNA (pneumonia), COPD (chronic obstructive pulmonary disease), End-stage renal disease on peritoneal dialysis Discharge Plan Visit Data *Final* Discharge Date/Time: 04/28/19 19:36 Chief Complaint: Shortness of Breath/Dyspnea Stated Complaint: SOB,COUGH ED Provider: Pankaj Casillas Discharge Problem: HTN (hypertension), PNA (pneumonia), COPD (chronic obstructive pulmonary disease), End-stage renal disease on peritoneal dialysis Patient Disposition: Admitted As Inpatient Discharge Instructions Interventions: ED Discharge Assessment Last Done: 04/28/19 19:36 The scribe's documentation has been prepared under my direction and personally reviewed by me in its entirety. I confirm that the note above accurately reflects all work, treatment, procedures, and medical decision making performed by me.
[2019-04-28] MEDS ORDERED: ACETAMINOPHEN 325 MG TAB PO PRN (20:06)
[2019-04-28] MEDS ORDERED: ONDANSETRON INJ 2 MG/ML 2 ML VIAL IV PRN (20:06)
[2019-04-28] MEDS ORDERED: PIPERACILLIN/TAZOBACTAM 4.5 GM in DEXTROSE 5% 100 ML IV STA (20:06)
[2019-04-28] MEDS ORDERED: MAGNESIUM HYDROXIDE SUSP 30 ML UDC PO PRN (20:06)
[2019-04-28] MEDS ORDERED: TIZANIDINE HCL 4 MG TABLET PO PRN (20:06)
[2019-04-28] MEDS: ALBUT/IPRATROP 3MG/0.5MG NEB 3 ML VIAL NEB SCH ×2 (20:27→23:19)
[2019-04-28] MEDS: ACETYLCYSTEINE 20% INHAL SOLN 30ML***DISPENSED BY RESP. INH SCH (20:28)
[2019-04-28] MEDS ORDERED: BUMETANIDE 4 MG in SYRINGE 0 ML IV ONE (20:40)
[2019-04-28] MEDS: methylPREDNISolone 40 MG in SYRINGE 0 ML IV SCH (21:06)
[2019-04-28] MEDS: METOPROLOL TARTRATE 25 MG TAB PO SCH (21:07)
[2019-04-28] MEDS: HEPARIN SOD 5,000 UNIT/0.5 ML VIAL SQ SCH (21:07)
[2019-04-28] MEDS: BUMETANIDE 1 MG TAB PO SCH (21:07)
[2019-04-28 23:14] LABS: Appearance Urine Clear (Clear); Bilirubin Urine Negative (Negative); Blood Urine Trace (Negative); Color Urine Yellow; Glucose Urine UA Negative (Negative); Ketones Urine Negative (Negative); Leukocyte Esterase Urine Negative (Negative); Nitrite Urine Negative (Negative); Protein Urine 2+ (Negative); RBC Urine Automated 0-4 /hpf (0-4); Specific Gravity Urine 1.015 (1.000-1.030); Urobilinogen Urine Negative (Negative); pH Urine 5.5 (4.5-7.5)
[2019-04-28 23:46] LABS: Bacteria Urine Automated 1+ (Negative)
[2019-04-29] MEDS: PIPERACILLIN/TAZOBACTAM 3.375 GM in DEXTROSE 5% 100 ML IV SCH ×2 (01:05→14:28)
[2019-04-29] MEDS: ALBUT/IPRATROP 3MG/0.5MG NEB 3 ML VIAL NEB SCH ×6 (03:36→23:34)
[2019-04-29] MEDS: HEPARIN SOD 5,000 UNIT/0.5 ML VIAL SQ SCH ×3 (05:02→21:37)
[2019-04-29 07:17] LABS: Basophils # (auto) 0.01 K/uL (0-0.2); Basophils % (auto) 0.1 %; Hematocrit (blood only) 31.7 % (42-52); Hemoglobin 10.6 g/dL (14.0-18.0); Immature Granulocytes # (auto) 0.09 K/uL (0.00-0.02); Immature Granulocytes % (auto) 0.7 %; Lymphocytes # (auto) 0.83 K/uL (1.2-3.4); Lymphocytes % (auto) 6.4 %; Mean Corpuscular Hgb Conc 33.4 g/dL (32-36); Mean Corpuscular Volume 86.8 fL (80-100); Mean Platelet Volume 9.1 fL (7.4-10.4); Monocytes # (auto) 0.38 K/uL (0.11-0.59); Neutrophils # (auto) 11.56 K/uL (1.4-6.5); Neutrophils % (auto) 89.8 %; Platelet Count 258 K/uL (130-400); RDW Coefficient of Variation 15.9 % (11.5-14.5); RDW Standard Deviation 51.2 fL (36.4-46.3); Red Blood Count 3.65 M/uL (4.7-6.1); White Blood Count 12.87 K/uL (4.8-10.8)
[2019-04-29 07:59] LABS: BUN Creatinine Ratio 6.7 (10-20); Creatinine Clr Calc Pharmacy 6.4 ml/min; Est GFR (African American) 4.4; Est GFR (Non-African American) 3.8; Magnesium 1.7 mg/dl (1.8-2.4); Phosphorus 5.7 mg/dl (2.5-4.9)
[2019-04-29] MEDS: BUMETANIDE 1 MG TAB PO SCH ×2 (08:34→17:03)
[2019-04-29] MEDS: AMLODIPINE BESYLATE 5 MG TAB PO SCH (08:34)
[2019-04-29] MEDS: LOSARTAN POTASSIUM 50 MG TAB PO SCH (08:34)
[2019-04-29] MEDS: METOPROLOL TARTRATE 25 MG TAB PO SCH ×2 (08:34→20:41)
[2019-04-29] MEDS: ACETAMINOPHEN 500 MG TAB PO SCH (08:35)
[2019-04-29] MEDS: methylPREDNISolone 40 MG in SYRINGE 0 ML IV SCH ×2 (08:35→20:42)
[2019-04-29] MEDS: ACETYLCYSTEINE 20% INHAL SOLN 30ML***DISPENSED BY RESP. INH SCH ×2 (10:59→19:24)
--- NOTE | 2019-04-29 11:14 | Nephrology Consultation ---
Date of Consultation April 29, 2019 Assessment & Plan (1) End-stage renal disease on peritoneal dialysis: Sisi Redmond 68-year-old gentlemen with end-stage renal disease secondary to polycystic kidney disease, on CCPD for last almost 2 years. Dialysis has been has regular. His residual renal function has been decreasing lately and as a result BUN creatinine has been staying high. Recent PET test showed high average transporter and dialysis prescription was changed accordingly. Admitted to the hospital with right lower lobe pneumonia and currently on empiric antibiotic. --schedule for dialysis tonight with his home prescription with 5 exchanges, 2.5 liter dwell volume, feels time 10 minutes and drain time 25 minutes. Will use delflex 2.5 percent tonight and then continue on 1.5 percent from tomorrow as he missed dialysis yesterday. --avoid IV fluid, continue on renal diet, dose medications for GFR less than 10 --continue phosphate binder meal --start on boost 1 can t.i.d. Will follow Thank you for allowing me to participate in your patient's care. It was a pleasure to see Sisi (2) HTN (hypertension): (3) PNA (pneumonia): (4) Anemia: (5) Secondary hyperparathyroidism (of renal origin): (6) Polycystic kidney disease, adult type: History of Present Illness Reason for Consultation: End-stage renal disease, on peritoneal dialysis. Attending Physician: Otoniel Butts, History of Present Illness Sisi berry is a 68-year-old gentlemen with end-stage renal disease on PD, hypertension, polycystic kidney disease admitted to the hospital with pneumonia. Nephrology consult was requested to manage peritoneal dialysis while inpatient. Electronic medical records including labs and imaging are reviewed in detail during patient's visit. Sisi presented to the hospital yesterday with cough, fever, shortness of breath and generalized weakness. On admission chest x-ray showed right lower lobe infiltrate suggestive of pneumonia. He was found to have leukocytosis and was febrile with temperature 37.2. Started on empiric antibiotic with Zosyn and Levaquin. He continues to have cough and shortness of breath. Afebrile this morning. Has end-stage renal disease secondary to polycystic kidney disease, has been on peritoneal dialysis for last almost 2 years. He is also active on transplant list at [facility]. He dialysis via cycler with 5 exchanges per night. Still makes some urine however over last few months urine output somewhat dropped and BUN creatinine has been staying slightly higher than usual. Recent PET test showed high average transporter. His PD regimen was recently changed. Blood pressure and volume status has been acceptable. He did not have PD last night as he came [facility] floor late from ER and no one was notified prior to 8:30 pm. Allergies Allergy/AdvReac Type Severity Reaction Status Date / Time lisinopril AdvReac Unknown COUGH Verified 04/28/19 17:56 Home Medications Home Medications Medication Instructions Recorded Confirmed Type amlodipine 10 mg tablet 10 mg PO QAM 02/17/19 04/28/19 History acetaminophen [Tylenol Arthritis 1,300 mg PO QAM 04/19/19 04/28/19 History Pain] bumetanide 1 mg PO BID 04/19/19 04/28/19 History losartan 50 mg PO QAM 04/19/19 04/28/19 History sevelamer carbonate [Renvela] 2,400 mg PO TIDM 04/19/19 04/28/19 History tizanidine 4 mg PO Q6H PRN 04/19/19 04/28/19 History metoprolol tartrate 25 mg PO BID 04/28/19 04/28/19 History Patient History Medical History Polycystic kidney disease, adult type (Chronic 09/03/12) Benign prostate hyperplasia (Chronic) Secondary hyperparathyroidism (of renal origin) (Chronic) Intracranial hemorrhage (Resolved ~2014) Chronic kidney disease, stage 5 (Chronic) Anemia (Chronic) CKD (chronic kidney disease) Social History Preferred Language: Vietnamese Communication Ability: Effective Booth Manager Required: No Beliefs That Will Affect Care: None marital status: Unknown Current Living Situation: Family Feels Safe at Home: Yes Smoking Status: Current every day smoker Tobacco Type: cigarettes ; Cigarettes Per Day: 10 ; Hx Alcohol Use: No Hx Substance Use: Yes substance use type: marijuana Last Used Substance: Hours (ago) Review of Systems Review of Systems: All systems reviewed & are unremarkable except as noted in HPI & below Physical Exam Constitutional: WD/WN, vitals as above well developed and well nourished; no acute distress Eyes: PERRL, conjunctivae normal, anicteric sclerae ENMT: external ear and nose normal, oropharynx normal Ears: no hearing impairment Neck: trachea midline Respiratory: normal respiratory effort, lungs clear to auscultation no cough Auscultation: no crackles, no rales and no wheezes Cardiovascular: RRR, no murmur, no edema Gastrointestinal (Abdomen): normal bowel sounds, soft, nontender, no h epatosplenomegaly Percussion/Palpation: abdomen nontender, no guarding and abdomen not rigid Musculoskeletal: Extremities: extremities normal to inspection Gait: normal gait Skin: no rashes, warm and dry Neurologic: moves all extremities and awake Psychiatric: A+Ox3, euthymic affect Results & Data Vital Signs (Past 12 Hours) Vital Signs Temp Pulse Pulse Pulse Resp BP Pulse Ox 04/29/19 11:01 89 20 95 04/29/19 10:33 86 04/29/19 08:27 36.6 C 85 20 122/72 96 04/29/19 07:07 20 94 04/29/19 04:00 36.6 C 84 18 117/63 93 04/29/19 03:37 78 18 95 04/28/19 23:19 75 20 94 04/28/19 23:15 86 PG Care Time/CCT Total # of Minutes Spent Total Time Spent with Patient: Total time spent is greater than 50% in coordination of care (as documented) at patient's floor/unit and/or counseling patient:
[2019-04-29] MEDS: SEVELAMER HCL 800 MG TABLET PO SCH ×2 (11:59→17:04)
[2019-04-29] MEDS ORDERED: MAGNESIUM OXIDE 400 MG TAB PO ONE (17:00)
--- NOTE | 2019-04-29 17:06 | Hospitalist Progress Note ---
Date of Service April 29, 2019 Assessment & Plan (1) PNA (pneumonia): 68-year-old female was admitted on April 28, 2019 for cough and shortness of breath. Pneumonia: Progressive worsening for 4 days prior to admission. CXR suggestive of RLL PNA. Blood and urine cultures pending. Influenza negative. - Started on Zosyn q12h. Added flutter valve use TID. Suspected COPD: History of daily cigarette and marijuana use. Unclear if has formal prior diagnosis. Is not on supplemental oxygen at home. - Started on scheduled albuterol nebs as well as Mucomyst twice daily. Solu- Medrol 40 mg twice daily. - Likely benefit from repeat PFTs once pneumonia has resolved. Hypokalemia, hypomagnesemia: Admit K 3.3, monitoring. Admit mag 1.7, replaced, monitoring. At home is on sevelamer. Ongoing medical issues: - Hypertension: Continue home Bumex, metoprolol, amlodipine, losartan. - CKD stage V, polycystic kidney disease: Peritoneal dialysis nightly (overnight) at home. Currently awaiting transplant via [place]. Follows with Drs. Cordon and Clarissa. See related nephrology notes here. --- Recommended avoiding IVF. Start on Boost TID. - PTSD, tobacco use disorder: Related to service in [place]. Marijuana helps with flashbacks. Follows with [place]. Family notes he will be okay off of marijuana during this admission. Presently also on 10 cigarettes/day (down from prior approx. 2 ppd). - Back pain, arthritis: Tylenol prn. Code status: Full code. Diet: Regular. DVT prophy: Heparin. PT/OT: Deferred. Disbo: Admit to [facility] telemetry. (2) COPD (chronic obstructive pulmonary disease): (3) Hypokalemia: (4) Hypomagnesemia: (5) HTN (hypertension): (6) End-stage renal disease on peritoneal dialysis: (7) Polycystic kidney disease, adult type: (8) PTSD (post-traumatic stress disorder): (9) Tobacco use disorder: (10) Back pain: Supervising Physician Co-Signing Physician Notes Patient seen and examined with PGY-3 Dr. Duenas. Agree with history, exam findings, assessment and plan of care. In brief, Mr. Redmond is a 68 year old male male with hx of polycystic kidney with end-stage kidney disease doing PD each night, COPD, HTN, tobacco use admitted with community acquired pneumonia and COPD exacerbation. He is currently on zosyn to cover for pulmonary organisms. We have added azithro to cover atypicals as well as for COPD exacerbation. He is on scheduled and PRN nebs, steroids. Will start to taper steroids down to 40mg pred as he improves. Will start flutter valve. [facility], but would recommend having repeat PFTs once he is clinically improved. Hyponatremia (Na 131) likely secondary to lung process. Will continue to monitor. Will continue to try to wean O2 as his pulmonary status improves. Continue with PD per nephrology. Monitor electrolytes. Dispo: pending clinical improvement. Subjective Found patient both this morning and this afternoon resting very comfortably, wa tching television. Overall he says that he no longer has any chest pain. He says that his breathing has improved but is not anywhere near normal. He continues to cough up some yellowish phlegm. He does ask about the status of his peritoneal dialysis. Otherwise, he denies any acute overnight or other medical concerns. Review of Systems Review of Systems: General Appearance: Awake, alert & oriented, comfortable in general, NAD. CV: +S1S2 RRR, no murmur. Pulm: Diffuse wheezing and rhonchi throughout all lung [place]. Nasal cannula oxygen in place. Abdomen: +BS, soft, non-tender, non-distended. Extremities: No pedal edema or calf tenderness. Moving all extremities naturally and easily. Neuro: No gross neuro deficits. Physical Exam Physical Exam: 68-year-old female was admitted on April 28, 2019 for cough and shortness of breath. Pneumonia: Progressive worsening for 4 days prior to admission. CXR suggestive of RLL PNA. Blood and urine cultures pending. Influenza negative. - Started on Zosyn q12h. Added flutter valve use TID. Suspected COPD: History of daily cigarette and marijuana use. Unclear if has formal prior diagnosis. Is not on supplemental oxygen at home. - Started on scheduled albuterol nebs as well as Mucomyst twice daily. Solu- Medrol 40 mg twice daily. - Likely benefit from repeat PFTs once pneumonia has resolved. Hypokalemia, hypomagnesemia: Admit K 3.3, monitoring. Admit mag 1.7, replaced, monitoring. At home is on sevelamer. Ongoing medical issues: - Hypertension: Continue home Bumex, metoprolol, amlodipine, losartan. - CKD stage V, polycystic kidney disease: Peritoneal dialysis nightly (overnight) at home. Currently awaiting transplant via [place]. Follows with Drs. Cordon and Clarissa. See related nephrology notes here. --- Recommended avoiding IVF. Start on Boost TID. - PTSD, tobacco use disorder: Related to service in [employer]. Marijuana helps with flashbacks. Follows with [place]. Family notes he will be okay off of [employer] during this admission. Presently also on 10 cigarettes/day (down from prior approx. 2 ppd). - Back pain, arthritis: Tylenol prn. Code status: Full code. Diet: Regular. DVT prophy: Heparin. PT/OT: Deferred. Disbo: Admit to [facility] telemetry. Results & Data Vital Signs (Past 12 Hours) Vital Signs Temp Pulse Pulse Resp BP Pulse Ox 04/29/19 15:00 36.4 C L 81 18 126/70 04/29/19 14:57 74 16 90 04/29/19 12:00 36.3 C L 74 20 153/82 H 93 04/29/19 11:01 89 20 95 04/29/19 10:33 86 04/29/19 08:27 36.6 C 85 20 122/72 96 04/29/19 07:07 20 94 Laboratory Results 04/29/19 04/29/19 04/28/19 Range/Units 06:45 06:45 Unknown WBC 12.87 H (4.8-10.8) K/uL RBC 3.65 L (4.7-6.1) M/uL Hgb 10.6 L (14.0-18.0) g/dL POC Hgb (14.0-18.0) g/dl Hct 31.7 L (42-52) % POC Hct (42-52) % MCV 86.8 (80-100) fL MCH 29.0 (25-34) pg MCHC 33.4 (32-36) g/dL RDW Std Deviation 51.2 H (36.4-46.3) fL RDW Coeff of Giovana 15.9 H (11.5-14.5) % Plt Count 258 (130-400) K/uL MPV 9.1 (7.4-10.4) fL Immature Gran % (Auto) 0.7 % Neut % (Auto) 89.8 % Lymph % (Auto) 6.4 % Hays % (Auto) 3.0 % Eos % (Auto) 0.0 % Baso % (Auto) 0.1 % Immature Gran # (Auto) 0.09 H (0.00-0.02) K/uL Neut # (Auto) 11.56 H (1.4-6.5) K/uL Lymph # (Auto) 0.83 L (1.2-3.4) K/uL H[place] # (Auto) 0.38 (0.11-0.59) K/uL Eos # (Auto) 0.00 (0-0.5) K/uL Baso # (Auto) 0.01 (0-0.2) K/uL PT (9.0-12.0) Seconds INR (0.9-1.1) APTT (21.0-31.0) Seconds PTT Ratio POC Sodium (135-144) mEq/L Sodium 131 L (136-145) mmol/L POC Potassium (3.3-5.0) mEq/L Potassium 4.0 D (3.5-5.1) mmol/L POC Chloride (101-112) mEq/L Chloride 95 L (98-107) mmol/L Carbon Dioxide 21 (21-32) mmol/L POC Total CO2 (24-31) mEq/l Anion Gap 15.0 H (3-11) POC Anion Gap (16-25) mmol/L POC BUN (7-18) mg/dl BUN 81 H (7-18) mg/dl Creatinine 12.10 H* (0.6-1.4) mg/dl POC Creatinine (0.6-1.3) mg/dl Est Cr Clr Drug Dosing 6.4 ml/min Est GFR ( Amer) 4.4 Est GFR (Non-Af Amer) 3.8 BUN/Creatinine Ratio 6.7 L (10-20) Glucose 152 H (70-99) mg/dl POC Glucose (other) (70-99) mg/dl Lactate (0.4-2.0) mmol/L Calcium 10.0 (8.5-10.1) mg/dl POC Ioniz Calcium Sesar (1.12-1.32) mmol/l Phosphorus 5.7 H D (2.5-4.9) mg/dl Magnesium 1.7 L (1.8-2.4) mg/dl Total Bilirubin (0.2-1) mg/dl AST (15-37) U/L ALT (12-78) U/L Alkaline Phosphatase (45-117) U/L Total Creatine Kinase (39-308) U/L CK-MB (CK-2) (0.5-3.6) ng/ml CK/CKMB % Calc (0-3.0) Troponin I (0-0.045) ng/ml NT-Pro-B Natriuret Pep (0-900) pg/ml Total Protein (6.4-8.2) gm/dl Albumin (3.4-5.0) gm/dl Globulin (2.5-4.0) gm/dl Albumin/Globulin Ratio (0.9-2) Urine Color Yellow Urine Appearance Clear (Clear) Urine pH 5.5 (4.5-7.5) Ur Specific [place] 1.015 (1.000-1.030) Urine Protein 2+ H (Negative) Urine Glucose (UA) Negative (Negative) Urine Ketones Negative (Negative) Urine Blood Trace H (Negative) Urine Nitrite Negative (Negative) Urine Bilirubin Negative (Negative) Urine Urobilinogen Negative (Negative) Ur Leukocyte Esterase Negative (Negative) Urine WBC (Auto) 1-5 (0-5) /hpf Urine RBC (Auto) 0-4 (0-4) /hpf U Hyaline Cast (Auto) 1-5 (0-5) /lpf U Epithel Cells (Auto) 5-10 H (0-5) /lpf Urine Bacteria (Auto) 1+ H (Negative) Urine Yeast Not Reportable Influenza Type A (PCR) (Neg) Influenza Type B (PCR) (Neg) 04/28/19 04/28/19 04/28/19 Range/Units 19:11 17:36 17:20 WBC (4.8-10.8) K/uL RBC (4.7-6.1) M/uL Hgb (14.0-18.0) g/dL POC Hgb 10.5 L (14.0-18.0) g/dl Hct (42-52) % POC Hct 31 L (42-52) % MCV (80-100) fL MCH (25-34) pg MCHC (32-36) g/dL RDW Std Deviation (36.4-46.3) fL RDW Coeff of Giovana (11.5-14.5) % Plt Count (130-400) K/uL MPV (7.4-10.4) fL Immature Gran % (Auto) % Neut % (Auto) % Lymph % (Auto) % Hays % (Auto) % Eos % (Auto) % Baso % (Auto) % Immature Gran # (Auto) (0.00-0.02) K/uL Neut # (Auto) (1.4-6.5) K/uL Lymph # (Auto) (1.2-3.4) K/uL Hays # (Auto) (0.11-0.59) K/uL Eos # (Auto) (0-0.5) K/uL Baso # (Auto) (0-0.2) K/uL PT (9.0-12.0) Seconds INR (0.9-1.1) APTT (21.0-31.0) Seconds PTT Ratio POC Sodium 134 L (135-144) mEq/L Sodium (136-145) mmol/L POC Potassium 3.3 (3.3-5.0) mEq/L Potassium (3.5-5.1) mmol/L POC Chloride 98 L (101-112) mEq/L Chloride (98-107) mmol/L Carbon Dioxide (21-32) mmol/L POC Total CO2 23 L (24-31) mEq/l Anion Gap (3-11) POC Anion Gap 18.0 (16-25) mmol/L POC BUN 62 H (7-18) mg/dl BUN (7-18) mg/dl Creatinine (0.6-1.4) mg/dl POC Creatinine 12.9 H* (0.6-1.3) mg/dl Est Cr Clr Drug Dosing ml/min Est GFR ( Amer) Est GFR (Non-Af Amer) BUN/Creatinine Ratio (10-20) Glucose (70-99) mg/dl POC Glucose (other) 161 H (70-99) mg/dl Lactate 2.1 H* 2.8 H* (0.4-2.0) mmol/L Calcium (8.5-10.1) mg/dl POC Ioniz Calcium Sesar 1.22 (1.12-1.32) mmol/l Phosphorus (2.5-4.9) mg/dl Magnesium (1.8-2.4) mg/dl Total Bilirubin (0.2-1) mg/dl AST (15-37) U/L ALT (12-78) U/L Alkaline Phosphatase (45-117) U/L Total Creatine Kinase (39-308) U/L CK-MB (CK-2) (0.5-3.6) ng/ml CK/CKMB % Calc (0-3.0) Troponin I (0-0.045) ng/ml NT-Pro-B Natriuret Pep (0-900) pg/ml Total Protein (6.4-8.2) gm/dl Albumin (3.4-5.0) gm/dl Globulin (2.5-4.0) gm/dl Albumin/Globulin Ratio (0.9-2) Urine Color Urine Appearance (Clear) Urine pH (4.5-7.5) Ur Specific [place] (1.000-1.030) Urine Protein (Negative) Urine Glucose (UA) (Negative) Urine Ketones (Negative) Urine Blood (Negative) Urine Nitrite (Negative) Urine Bilirubin (Negative) Urine Urobilinogen (Negative) Ur Leukocyte Esterase (Negative) Urine WBC (Auto) (0-5) /hpf Urine RBC (Auto) (0-4) /hpf U Hyaline Cast (Auto) (0-5) /lpf U Epithel Cells (Auto) (0-5) /lpf Urine Bacteria (Auto) (Negative) Urine Yeast Influenza Type A (PCR) (Neg) Influenza Type B (PCR) (Neg) 04/28/19 04/28/19 04/28/19 Range/Units 17:20 17:20 17:20 WBC 12.52 H (4.8-10.8) K/uL RBC 3.83 L (4.7-6.1) M/uL Hgb 11.3 L (14.0-18.0) g/dL POC Hgb (14.0-18.0) g/dl Hct 33.7 L (42-52) % POC Hct (42-52) % MCV 88.0 (80-100) fL MCH 29.5 (25-34) pg MCHC 33.5 (32-36) g/dL RDW Std Deviation 53.3 H (36.4-46.3) fL RDW Coeff of Giovana 16.4 H (11.5-14.5) % Plt Count 258 (130-400) K/uL MPV 9.0 (7.4-10.4) fL Immature Gran % (Auto) 0.6 % Neut % (Auto) 85.2 % Lymph % (Auto) 6.5 % Hays % (Auto) 7.3 % Eos % (Auto) 0.2 % Baso % (Auto) 0.2 % Immature Gran # (Auto) 0.07 H (0.00-0.02) K/uL Neut # (Auto) 10.67 H (1.4-6.5) K/uL Lymph # (Auto) 0.82 L (1.2-3.4) K/uL [place] # (Auto) 0.91 H (0.11-0.59) K/uL Eos # (Auto) 0.03 (0-0.5) K/uL Baso # (Auto) 0.02 (0-0.2) K/uL PT 10.9 (9.0-12.0) Seconds INR 1.1 (0.9-1.1) APTT 26.9 (21.0-31.0) Seconds PTT Ratio 1.0 POC Sodium (135-144) mEq/L Sodium 135 L (136-145) mmol/L POC Potassium (3.3-5.0) mEq/L Potassium 3.3 L (3.5-5.1) mmol/L POC Chloride (101-112) mEq/L Chloride 99 (98-107) mmol/L Carbon Dioxide 24 (21-32) mmol/L POC Total CO2 (24-31) mEq/l Anion Gap 12.0 H (3-11) POC Anion Gap (16-25) mmol/L POC BUN (7-18) mg/dl BUN 67 H (7-18) mg/dl Creatinine 12.00 H* (0.6-1.4) mg/dl POC Creatinine (0.6-1.3) mg/dl Est Cr Clr Drug Dosing 5.7 ml/min Est GFR ( Amer) 4.4 Est GFR (Non-Af Amer) 3.8 BUN/Creatinine Ratio 5.6 L (10-20) Glucose 178 H (70-99) mg/dl POC Glucose (other) (70-99) mg/dl Lactate (0.4-2.0) mmol/L Calcium 10.1 (8.5-10.1) mg/dl POC Ioniz Calcium Sesar (1.12-1.32) mmol/l Phosphorus 4.3 (2.5-4.9) mg/dl Magnesium 1.8 (1.8-2.4) mg/dl Total Bilirubin 0.3 (0.2-1) mg/dl AST 4 L (15-37) U/L ALT 11 L (12-78) U/L Alkaline Phosphatase 43 L (45-117) U/L Total Creatine Kinase 42 (39-308) U/L CK-MB (CK-2) 1.0 (0.5-3.6) ng/ml CK/CKMB % Calc 2.4 (0-3.0) Troponin I < 0.015 (0-0.045) ng/ml NT-Pro-B Natriuret Pep 57693 H (0-900) pg/ml Total Protein 6.4 (6.4-8.2) gm/dl Albumin 2.6 L (3.4-5.0) gm/dl Globulin 3.8 (2.5-4.0) gm/dl Albumin/Globulin Ratio 0.7 L (0.9-2) Urine Color Urine Appearance (Clear) Urine pH (4.5-7.5) Ur Specific [place] (1.000-1.030) Urine Protein (Negative) Urine Glucose (UA) (Negative) Urine Ketones (Negative) Urine Blood (Negative) Urine Nitrite (Negative) Urine Bilirubin (Negative) Urine Urobilinogen (Negative) Ur Leukocyte Esterase (Negative) Urine WBC (Auto) (0-5) /hpf Urine RBC (Auto) (0-4) /hpf U Hyaline Cast (Auto) (0-5) /lpf U Epithel Cells (Auto) (0-5) /lpf Urine Bacteria (Auto) (Negative) Urine Yeast Influenza Type A (PCR) (Neg) Influenza Type B (PCR) (Neg) 04/28/19 Range/Units 17:02 WBC (4.8-10.8) K/uL RBC (4.7-6.1) M/uL Hgb (14.0-18.0) g/dL POC Hgb (14.0-18.0) g/dl Hct (42-52) % POC Hct (42-52) % MCV (80-100) fL MCH (25-34) pg MCHC (32-36) g/dL RDW Std Deviation (36.4-46.3) fL RDW Coeff of Giovana (11.5-14.5) % Plt Count (130-400) K/uL MPV (7.4-10.4) fL Immature Gran % (Auto) % Neut % (Auto) % Lymph % (Auto) % [place] % (Auto) % Eos % (Auto) % Baso % (Auto) % Immature Gran # (Auto) (0.00-0.02) K/uL Neut # (Auto) (1.4-6.5) K/uL Lymph # (Auto) (1.2-3.4) K/uL [place] # (Auto) (0.11-0.59) K/uL Eos # (Auto) (0-0.5) K/uL Baso # (Auto) (0-0.2) K/uL PT (9.0-12.0) Seconds INR (0.9-1.1) APTT (21.0-31.0) Seconds PTT Ratio POC Sodium (135-144) mEq/L Sodium (136-145) mmol/L POC Potassium (3.3-5.0) mEq/L Potassium (3.5-5.1) mmol/L POC Chloride (101-112) mEq/L Chloride (98-107) mmol/L Carbon Dioxide (21-32) mmol/L POC Total CO2 (24-31) mEq/l Anion Gap (3-11) POC Anion Gap (16-25) mmol/L POC BUN (7-18) mg/dl BUN (7-18) mg/dl Creatinine (0.6-1.4) mg/dl POC Creatinine (0.6-1.3) mg/dl Est Cr Clr Drug Dosing ml/min Est GFR ( Amer) Est GFR (Non-Af Amer) BUN/Creatinine Ratio (10-20) Glucose (70-99) mg/dl POC Glucose (other) (70-99) mg/dl Lactate (0.4-2.0) mmol/L Calcium (8.5-10.1) mg/dl POC Ioniz Calcium Sesar (1.12-1.32) mmol/l Phosphorus (2.5-4.9) mg/dl Magnesium (1.8-2.4) mg/dl Total Bilirubin (0.2-1) mg/dl AST (15-37) U/L ALT (12-78) U/L Alkaline Phosphatase (45-117) U/L Total Creatine Kinase (39-308) U/L CK-MB (CK-2) (0.5-3.6) ng/ml CK/CKMB % Calc (0-3.0) Troponin I (0-0.045) ng/ml NT-Pro-B Natriuret Pep (0-900) pg/ml Total Protein (6.4-8.2) gm/dl Albumin (3.4-5.0) gm/dl Globulin (2.5-4.0) gm/dl Albumin/Globulin Ratio (0.9-2) Urine Color Urine Appearance (Clear) Urine pH (4.5-7.5) Ur Specific [place] (1.000-1.030) Urine Protein (Negative) Urine Glucose (UA) (Negative) Urine Ketones (Negative) Urine Blood (Negative) Urine Nitrite (Negative) Urine Bilirubin (Negative) Urine Urobilinogen (Negative) Ur Leukocyte Esterase (Negative) Urine WBC (Auto) (0-5) /hpf Urine RBC (Auto) (0-4) /hpf U Hyaline Cast (Auto) (0-5) /lpf U Epithel Cells (Auto) (0-5) /lpf Urine Bacteria (Auto) (Negative) Urine Yeast Influenza Type A (PCR) Neg for Influ A (Neg) Influenza Type B (PCR) Neg for Influ B (Neg) Medications Administered Current Inpatient Medications [facility] [place]: 05/29/19 08:59 Last Admin: 04/29/19 08:35 Dose: 1,000 mg Documented by: Acetaminophen (Tylenol) 650 mg PO Q4H PRN PRN Reason: Pain or Fever Stop: 05/28/19 20:05 Acetylcysteine (Mucomyst 20%) 5 ml INH BIDR [facility] Stop: 05/28/19 20:59 Last Admin: 04/29/19 10:59 Dose: Not Given Documented by: Albuterol (Duoneb) 3 ml NEB Q4R [facility] Stop: 05/28/19 20:05 Last Admin: 04/29/19 14:56 Dose: 3 ml Documented by: Amlodipine Besylate (Norvasc) 10 mg PO QAM [facility] Stop: 05/29/19 08:59 Last Admin: 04/29/19 08:34 Dose: 10 mg Documented by: Bumetanide (Bumex) 1 mg PO BID17 [facility] Stop: 05/28/19 20:59 Last Admin: 04/29/19 08:34 Dose: 1 mg Documented by: Heparin Sodium (Porcine) (Heparin Sodium (Porcine)) 5,000 units SQ Q8 [facility] Stop: 05/28/19 21:59 Last Admin: 04/29/19 14:22 Dose: 5,000 units Documented by: Methylprednisolone 40 mg/ (Syringe) 0.64 mls @ 1.5 mls/min IV BID [facility] Stop: 05/28/19 20:59 Last Admin: 04/29/19 08:35 Dose: 1.5 mls/min Documented by: Piperacillin Sod/Tazobactam (Sod 3.375 gm/ Dextrose) 115 mls @ 28.75 mls/hr IV Q12H [facility]; Protocol Stop: 05/06/19 01:59 Last Admin: 04/29/19 14:28 Dose: 28.8 mls/hr Documented by: Losartan Potassium (Cozaar) 50 mg PO QAM [facility] Stop: 05/29/19 08:59 Last Admin: 04/29/19 08:34 Dose: 50 mg Documented by: Magnesium Hydroxide (Milk Of Magnesia) 30 ml PO Q12H PRN PRN Reason: Constipation Stop: 05/28/19 20:05 Metoprolol Tartrate (Lopressor) 25 mg PO BID [facility] Stop: 05/28/19 20:59 Last Admin: 04/29/19 08:34 Dose: 25 mg Documented by: Miscellaneous Information (Consult) 1 ea N/A UD PRN PRN Reason: Consult Stop: 05/28/19 20:05 Ondansetron HCl (Zofran) 4 mg IV Q6H PRN PRN Reason: Nausea Stop: 05/28/19 20:05 Sevelamer HCl (Renagel) 2,400 mg PO TIDM [facility] Stop: 05/29/19 07:59 Last Admin: 04/29/19 11:59 Dose: 2,400 mg Documented by: Tizanidine HCl (Zanaflex) 4 mg PO Q6H PRN PRN Reason: Muscle Spasm Stop: 05/28/19 20:05 Resident Activity Tracking Resident Involvement: Resident Care Provided Care Provided: Adult Hospital Medicine
[2019-04-30] MEDS: PIPERACILLIN/TAZOBACTAM 3.375 GM in DEXTROSE 5% 100 ML IV SCH ×2 (01:56→14:05)
[2019-04-30] MEDS: ALBUT/IPRATROP 3MG/0.5MG NEB 3 ML VIAL NEB SCH ×6 (03:16→23:05)
[2019-04-30] MEDS: HEPARIN SOD 5,000 UNIT/0.5 ML VIAL SQ SCH ×3 (06:20→22:34)
[2019-04-30 06:37] LABS: Hematocrit (blood only) 31.2 % (42-52); Hemoglobin 10.6 g/dL (14.0-18.0); Mean Corpuscular Hemoglobin 29.3 pg (25-34); Mean Corpuscular Volume 86.2 fL (80-100); Mean Platelet Volume 8.9 fL (7.4-10.4); Platelet Count 263 K/uL (130-400); RDW Coefficient of Variation 15.9 % (11.5-14.5); RDW Standard Deviation 51.4 fL (36.4-46.3); Red Blood Count 3.62 M/uL (4.7-6.1); White Blood Count 14.37 K/uL (4.8-10.8)
[2019-04-30] MEDS: ACETYLCYSTEINE 20% INHAL SOLN 30ML***DISPENSED BY RESP. INH SCH ×2 (06:57→19:18)
[2019-04-30 07:24] LABS: Albumin Level 2.4 gm/dl (3.4-5.0); BUN Creatinine Ratio 8.4 (10-20); Calcium 10.3 mg/dl (8.5-10.1); Creatinine Clr Calc Pharmacy 6.4 ml/min; Est GFR (African American) 4.8; Est GFR (Non-African American) 4.1; Phosphorus 6.3 mg/dl (2.5-4.9); Potassium 4.2 mmol/L (3.5-5.1)
[2019-04-30] MEDS: LOSARTAN POTASSIUM 50 MG TAB PO SCH (09:26)
[2019-04-30] MEDS: AMLODIPINE BESYLATE 5 MG TAB PO SCH (09:26)
[2019-04-30] MEDS: ACETAMINOPHEN 500 MG TAB PO SCH (09:26)
[2019-04-30] MEDS: METOPROLOL TARTRATE 25 MG TAB PO SCH ×2 (09:27→20:16)
[2019-04-30] MEDS: SEVELAMER HCL 800 MG TABLET PO SCH ×3 (09:27→17:09)
[2019-04-30] MEDS: BUMETANIDE 1 MG TAB PO SCH ×2 (09:28→17:09)
[2019-04-30] MEDS: methylPREDNISolone 40 MG in SYRINGE 0 ML IV SCH (09:28)
--- NOTE | 2019-04-30 11:28 | Nephrology Progress Note ---
Date of Service April 30, 2019 Assessment & Plan (1) End-stage renal disease on peritoneal dialysis: Sisi Redmond 68-year-old gentlemen with end-stage renal disease secondary to polycystic kidney disease, on CCPD for last almost 2 years. Dialysis has been has regular. His residual renal function has been decreasing lately and as a result BUN creatinine has been staying high. Recent PET test showed high average transporter and dialysis prescription was changed accordingly. Admitted to the hospital with right lower lobe pneumonia and currently on empiric antibiotic, overall doing better. --continue peritoneal dialysis with cycler with his home prescription with 5 exchanges, 2.5 liter dwell volume, fill time 10 minutes and drain time 25 minutes. Will use delflex 1.5 percent --avoid IV fluid, continue on renal diet, dose medications for GFR less than 10 --continue phosphate binder meal --conitnue on boost 1 can t.i.d. Will follow (2) HTN (hypertension): (3) PNA (pneumonia): (4) Anemia: (5) Secondary hyperparathyroidism (of renal origin): (6) Polycystic kidney disease, adult type: Subjective Sisi was seen and examined in his room this morning. Overall he is feeling better, denies any further episode of cough, shortness of Breath. Has been afebrile. Had dialysis last night Review of Systems Review of Systems: All systems reviewed & are unremarkable except as noted in HPI & below Physical Exam Constitutional: WD/WN, vitals as above no acute distress Eyes: PERRL, conjunctivae normal, anicteric sclerae ENMT: Ears: no hearing impairment Respiratory: no respiratory distress and no cough Auscultation: + rhonchi Cardiovascular: RRR, no murmur, no edema Gastrointestinal (Abdomen): Percussion/Palpation: abdomen nontender, no guarding and abdomen not rigid Skin: no rashes, warm and dry Neurologic: moves all extremities and awake Results & Data Vital Signs (Past 12 Hours) Vital Signs Temp Pulse Pulse Resp BP BP Pulse Ox 04/30/19 10:50 77 18 91 04/30/19 08:07 80 04/30/19 07:04 72 18 94 04/30/19 07:00 36.3 C L 85 18 122/58 L 91 04/30/19 04:14 36.4 C L 89 20 113/73 92 04/30/19 03:18 87 18 95 04/30/19 00:00 103 H 04/29/19 23:34 95 H 16 98 04/29/19 23:31 36.7 C 94 H 20 143/58 H 95 PG Care Time/CCT Total # of Minutes Spent Total Time Spent with Patient: Total time spent is greater than 50% in coordination of care (as documented) at patient's floor/unit and/or counseling patient:
--- NOTE | 2019-04-30 13:20 | Hospitalist Progress Note ---
Date of Service April 30, 2019 Assessment & Plan (1) PNA (pneumonia): 68-year-old female was admitted on April 28, 2019 for cough and shortness of breath. Pneumonia: Progressive worsening for 4 days prior to admission. CXR suggestive of RLL PNA. BCx with NGTD. UCx pending. Influenza negative. Ordered flutter valve use TID. 09Nov started on Zosyn q12h. 11Nov switch to Levaquin PO (renal dosing is 750 mg x 1 then 500 mg q 48h). Suspected COPD: History of daily cigarette and marijuana use. Unclear if he has formal prior diagnosis. Is not on supplemental oxygen at home. Admitted on scheduled albuterol nebs, Mucomyst BID, and solumedrol 40 mg BID. - Stopped solumedrol IV, switch to prednisone 40 mg PO daily. - Likely benefit from repeat PFTs once pneumonia has resolved. Hypokalemia, hypomagnesemia: Admit K 3.3, monitoring. Admit mag 1.7, replaced, monitoring. At home is on sevelamer. Ongoing medical issues: - Hypertension: Continue home Bumex, metoprolol, amlodipine, losartan. - CKD stage V, polycystic kidney disease: Peritoneal dialysis nightly (overnig ht) at home. Currently awaiting transplant via [place]. Follows with Drs. Cordon and Clarissa. See related nephrology notes here. --- Recommended avoiding IVF. Start on Boost TID. - PTSD, tobacco use disorder: Related to service in [place]. Marijuana helps with flashbacks. Follows with [place]. Family notes he will be okay off of marijuana during this admission. Presently also on 10 cigarettes/day (down from prior approx. 2 ppd). - Back pain, arthritis: Tylenol prn. Code status: Full code. Diet: Regular. DVT prophy: Heparin. PT/OT: Deferred. Dispo: [facility]. DC pending clinical improvement. (2) COPD (chronic obstructive pulmonary disease): (3) Hypokalemia: (4) Hypomagnesemia: (5) HTN (hypertension): (6) End-stage renal disease on peritoneal dialysis: (7) Polycystic kidney disease, adult type: (8) PTSD (post-traumatic stress disorder): (9) Tobacco use disorder: (10) Back pain: Supervising Physician Co-Signing Physician Notes Patient seen and examined with PGY-3 Dr. Duenas. Agree with history, exam findings, assessment and plan of care. In brief, Mr. Redmond is a 68 year old male male with hx of polycystic kidney with end-stage kidney disease doing PD each night, ?COPD, HTN, current tobacco use admitted with community acquired pneumonia and COPD exacerbation. He is cur rently on zosyn to cover for pulmonary organisms. He is clinically improving and off supplemental O2. Will plan to switch to levaquin tomorrow. Scheduled and prn nebs. Stop IV solumedrol and switch to PO prednisone 40mg. Given unclear hx of COPD and whether or not he has had formal PFTs recently, recommend PFTs once he is clinically improved. Hyponatremia stable likely secondary to ongoing pulmona ry process. Continue to monitor. Continue with PD per nephrology. Monitor electrolytes. Dispo: pending clinical improvement. If continues to improve, anticipate discharge Wednesday. Subjective Earlier this morning found the patient sleeping comfortably. On re-rounding, patient is awake, alert, eating some breakfast. He said overall that he still h as no chest pain. He notes his breathing continues to improve and that he is no longer coughing up yellowish phlegm. He says he continues to have some wheezing. He notes that his peritoneal dialysis went well and he denies any other acute concerns. Review of Systems Review of Systems: Per HPI as above. Physical Exam Physical Exam: General Appearance: Awake, alert & oriented, comfortable in general, NAD. CV: +S1S2 RRR, no murmur. Pulm: Diffuse wheezing throughout all lung munson (improved since yesterday). On room air. Abdomen: +BS, soft, non-tender, non-distended. Extremities: No pedal edema or calf tenderness. Moving all extremities naturally and easily. Neuro: No gross neuro deficits. Results & Data Vital Signs (Past 12 Hours) Vital Signs Temp Pulse Pulse Resp BP Pulse Ox 04/30/19 11:51 36.4 C L 77 18 136/72 91 04/30/19 10:50 77 18 91 04/30/19 08:07 80 04/30/19 07:04 72 18 94 04/30/19 07:00 36.3 C L 85 18 122/58 L 91 04/30/19 04:14 36.4 C L 89 20 113/73 92 04/30/19 03:18 87 18 95 Laboratory Results 04/30/19 04/30/19 04/30/19 Range/Units 06:22 06:22 06:22 WBC 14.37 H (4.8-10.8) K/uL RBC 3.62 L (4.7-6.1) M/uL Hgb 10.6 L (14.0-18.0) g/dL Hct 31.2 L (42-52) % MCV 86.2 (80-100) fL MCH 29.3 (25-34) pg MCHC 34.0 (32-36) g/dL RDW Std Deviation 51.4 H (36.4-46.3) fL RDW Coeff of Giovana 15.9 H (11.5-14.5) % Plt Count 263 (130-400) K/uL MPV 8.9 (7.4-10.4) fL Sodium 132 L (136-145) mmol/L Potassium 4.2 (3.5-5.1) mmol/L Chloride 95 L (98-107) mmol/L Carbon Dioxide 21 (21-32) mmol/L Anion Gap 16.0 H (3-11) BUN 94 H (7-18) mg/dl Creatinine 11.20 H* D (0.6-1.4) mg/dl Est Cr Clr Drug Dosing 6.4 ml/min Est GFR ( Amer) 4.8 Est GFR (Non-Af Amer) 4.1 BUN/Creatinine Ratio 8.4 L (10-20) Glucose 134 H (70-99) mg/dl Lactate 1.6 (0.4-2.0) mmol/L Calcium 10.3 H (8.5-10.1) mg/dl Phosphorus 6.3 H (2.5-4.9) mg/dl Magnesium 2.0 (1.8-2.4) mg/dl Albumin 2.4 L (3.4-5.0) gm/dl Medications Administered Current Inpatient Medications Acetamin[facility] ([facility]) [facility] Stop: 05/29/19 08:59 Last Admin: 04/30/19 09:26 Dose: 1,000 mg Documented by: Acetaminophen (Tylenol) 650 mg PO Q4H PRN PRN Reason: Pain or Fever Stop: 05/28/19 20:05 Acetylcysteine (Mucomyst 20%) 5 ml INH BIDR [facility] Stop: 05/28/19 20:59 Last Admin: 04/30/19 06:57 Dose: 5 ml Documented by: Albuterol (Duoneb) 3 ml NEB Q4R [facility] Stop: 05/28/19 20:05 Last Admin: 04/30/19 10:46 Dose: 3 ml Documented by: Amlodipine Besylate (Norvasc) 10 mg PO QAM [facility] Stop: 05/29/19 08:59 Last Admin: 04/30/19 09:26 Dose: 10 mg Documented by: Bumetanide (Bumex) 1 mg PO BID17 [facility] Stop: 05/28/19 20:59 Last Admin: 04/30/19 09:28 Dose: 1 mg Documented by: Heparin Sodium (Porcine) (Heparin Sodium (Porcine)) 5,000 units SQ Q8 [facility] Stop: 05/28/19 21:59 Last Admin: 04/30/19 06:20 Dose: 5,000 units Documented by: Piperacillin Sod/Tazobactam (Sod 3.375 gm/ Dextrose) 115 mls @ 28.75 mls/hr IV Q12H [facility]; Protocol Stop: 04/30/19 23:55 Last Infusion: 04/30/19 06:12 Dose: Infused Documented by: Levofloxacin (Levaquin) 750 mg PO TODAY@1100 N[place]ST[place]; Protocol Stop: 05/01/19 15:00 Levofloxacin (Levaquin) 500 mg PO Q2D@1100 N[place]STOR; Protocol Stop: 05/07/19 23:59 Losartan Potassium (Cozaar) 50 mg PO QAM [facility] Stop: 05/29/19 08:59 Last Admin: 04/30/19 09:26 Dose: 50 mg Documented by: Magnesium Hydroxide (Milk Of Magnesia) 30 ml PO Q12H PRN PRN Reason: Constipation Stop: 05/28/19 20:05 Metoprolol Tartrate (Lopressor) 25 mg PO BID [facility] Stop: 05/28/19 20:59 Last Admin: 04/30/19 09:27 Dose: 25 mg Documented by: Miscellaneous Information (Consult) 1 ea N/A UD PRN PRN Reason: Consult Stop: 04/30/19 23:55 Ondansetron HCl (Zofran) 4 mg IV Q6H PRN PRN Reason: Nausea Stop: 05/28/19 20:05 Last Admin: 04/30/19 02:02 Dose: 4 mg Documented by: Prednisone (Prednisone) 40 mg PO QAM [facility] Stop: 05/31/19 08:59 Sevelamer HCl (Renagel) 2,400 mg PO TIDM [facility] Stop: 05/29/19 07:59 Last Admin: 04/30/19 11:54 Dose: 2,400 mg Documented by: Tizanidine HCl (Zanaflex) 4 mg PO Q6H PRN PRN Reason: Muscle Spasm Stop: 05/28/19 20:05 Resident Activity Tracking Resident Involvement: Resident Care Provided Care Provided: Adult Hospital Medicine
[2019-05-01] MEDS: ALBUT/IPRATROP 3MG/0.5MG NEB 3 ML VIAL NEB SCH ×4 (02:43→14:53)
[2019-05-01] MEDS: HEPARIN SOD 5,000 UNIT/0.5 ML VIAL SQ SCH ×2 (05:37→13:55)
[2019-05-01 06:30] LABS: Hemoglobin 11.2 g/dL (14.0-18.0); Mean Corpuscular Hemoglobin 29.4 pg (25-34); Mean Corpuscular Hgb Conc 33.9 g/dL (32-36); Mean Corpuscular Volume 86.6 fL (80-100); Mean Platelet Volume 9.1 fL (7.4-10.4); Platelet Count 306 K/uL (130-400); RDW Coefficient of Variation 16.1 % (11.5-14.5); RDW Standard Deviation 50.6 fL (36.4-46.3); Red Blood Count 3.81 M/uL (4.7-6.1)
[2019-05-01] MEDS: ACETYLCYSTEINE 20% INHAL SOLN 30ML***DISPENSED BY RESP. INH SCH (07:06)
[2019-05-01 07:21] LABS: Albumin Level 2.4 gm/dl (3.4-5.0); BUN Creatinine Ratio 9.3 (10-20); Calcium 9.8 mg/dl (8.5-10.1); Creatinine Clr Calc Pharmacy 6.8 ml/min; Est GFR (African American) 5.1; Est GFR (Non-African American) 4.4; Phosphorus 6.4 mg/dl (2.5-4.9); Potassium 4.1 mmol/L (3.5-5.1)
[2019-05-01] MEDS: METOPROLOL TARTRATE 25 MG TAB PO SCH (07:56)
[2019-05-01] MEDS: SEVELAMER HCL 800 MG TABLET PO SCH ×3 (07:56→16:54)
[2019-05-01] MEDS: BUMETANIDE 1 MG TAB PO SCH ×2 (07:57→16:54)
[2019-05-01] MEDS: AMLODIPINE BESYLATE 5 MG TAB PO SCH (07:57)
[2019-05-01] MEDS: LOSARTAN POTASSIUM 50 MG TAB PO SCH (07:57)
[2019-05-01] MEDS: ACETAMINOPHEN 500 MG TAB PO SCH (08:02)
[2019-05-01] MEDS ORDERED: predniSONE 20 MG TAB PO SCH (09:00)
[2019-05-01] MEDS ORDERED: levoFLOXacin 750 MG TAB PO SCH (11:00)
--- NOTE | 2019-05-01 12:11 | Nephrology Progress Note ---
Date of Service May 01, 2019 Assessment & Plan (1) End-stage renal disease on peritoneal dialysis: Sisi Redmond 68-year-old male with end-stage renal disease secondary to polycystic kidney disease. Sisi has been on CCPD for approximately 2 years. Dialysis has been has regular. His residual renal function has been decreasing lately and as a result BUN creatinine has been staying high. Recent PET test showed high average transporter and dialysis prescription was changed accordingly. Admitted to the hospital with right lower lobe pneumonia and currently on empiric antibiotic, overall doing better. --Continue peritoneal dialysis with cycler with his home prescription with 5 ex changes, 2.5 liter dwell volume, fill time 10 minutes and drain time 25 minutes. Delflex 1.5%. --Renal diet --Medications appropriate for kidney function --Continue phosphate binder meal --Continue on boost 1 can t.i.d. (2) HTN (hypertension): (3) PNA (pneumonia): (4) Anemia: (5) Secondary hyperparathyroidism (of renal origin): (6) Polycystic kidney disease, adult type: Subjective No acute events overnight. PD exchanges were without complication. Overall, the patient feels well. The fluid was clear. No acute complaints or concerns. Tentative discharge today. Review of Systems Review of Systems: All systems reviewed & are unremarkable except as noted in HPI & below Physical Exam Constitutional: well developed; no acute distress Eyes: no scleral abnormality and no corneal abnormality ENMT: Mouth: no oral mucosal abnormality and oral mucous membranes not dry Neck: normal visual inspection Respiratory: normal respiratory effort Auscultation: lungs clear to auscultation bilaterally Cardiovascular: Rate/Rhythm: regular rate Heart Sounds: normal S1 and normal S2 Extremities: no edema Gastrointestinal (Abdomen): Percussion/Palpation: abdomen soft; abdomen nontender PD catheter intact Musculoskeletal: Extremities: no cyanosis and no clubbing Skin: normal turgor; no lesions Neurologic: Motor/Sensory: no tremor and no asterixis Psychiatric: Orientation: alert and oriented x 3 Results & Data Vital Signs (Past 12 Hours) Vital Signs Temp Pulse Pulse Pulse Pulse Pulse Pulse 05/01/19 11:41 75 05/01/19 11:30 77 76 74 79 05/01/19 09:35 05/01/19 07:25 76 05/01/19 07:20 36.9 C 91 H 05/01/19 07:06 85 05/01/19 04:00 36.6 C 87 Pulse Pulse Resp Resp Resp Resp Resp 05/01/19 11:41 18 05/01/19 11:30 75 78 18 24 24 24 05/01/19 09:35 05/01/19 07:25 05/01/19 07:20 20 05/01/19 07:06 18 05/01/19 04:00 20 Resp Resp BP BP Pulse Ox Pulse Ox Pulse Ox 05/01/19 11:41 91 05/01/19 11:30 20 18 90 84 L 05/01/19 09:35 92 05/01/19 07:25 05/01/19 07:20 135/75 90 05/01/19 07:06 91 05/01/19 04:00 135/69 90 Pulse Ox Pulse Ox Pulse Ox Pulse Ox 05/01/19 11:41 05/01/19 11:30 89 L 82 L 91 85 L 05/01/19 09:35 05/01/19 07:25 05/01/19 07:20 05/01/19 07:06 05/01/19 04:00 PG Care Time/CCT Total # of Minutes Spent Total Time Spent with Patient: Total time spent is greater than 50% in coordination of care (as documented) at patient's floor/unit and/or counseling patient: (1) HTN (hypertension) Hypertension type: unspecified Qualified Code(s): I10 - Essential (primary) hypertension (2) PNA (pneumonia) Laterality: right Lung location: middle lobe of lung Pneumonia type: due to unspecified organism Qualified Code(s): J18.1 - Lobar pneumonia, unspecified organism
--- NOTE | 2019-05-01 16:51 | Discharge Summary ---
Date of Service May 01, 2019 Admission HPI Per Admitting Provider 68 y/o M c/o SOB and cough. Pt states he has been having issues for about the last 4 days and getting worse. He has been getting SOB with all ambulation and lately at rest. He is even SOB with prolonged conversation prior to arrival. He has not had any appetite and has had nothing to eat x2 days, which is not typical for him. Family states that he is usually quite active but he has not been able to do anything the last 2 days. Pt states he has never been sick like this in the past. Pt denies fever, chest pain, abd pain, n/v/c/d, LE pain or swelling. Pt was given abx, nebs, steroids in the ED and states that he feels a bit better than prior, but not much. He is no longer SOB with conversation, but has not been OOB. Pt does not wear home O2 or have hx of inhaler use. Pt has hx of marijuana use, started when he was in [place]. He states that he smokes 3-4x/day. Family is in the room and states that he tried to quit smoking completely and had terrible flashbacks. It was determined that the marjuana helps control his PTSD and this should be continued. [facility] as well. Pt states that he can go without for a few days and have no issues. Family states he will be fine during his admission without it. Principal Diagnosis pna, copd Discharge Exam Constitutional WD/WN, vitals as above Eyes PERRL, conjunctivae normal, anicteric sclerae ENMT external ear and nose normal, oropharynx normal Respiratory normal respiratory effort Auscultation: + wheezes Cardiovascular RRR, no murmur, no edema Gastrointestinal (Abdomen) normal bowel sounds, soft, nontender, no hepatosplenomegaly Skin no rashes, warm and dry Psychiatric A+Ox3, euthymic affect Discharge Data Allergies Allergy/AdvReac Type Severity Reaction Status Date / Time lisinopril AdvReac Unknown COUGH Verified 04/28/19 17:56 Consultations 04/28/19 18:08 ED Decision to Admit Stat 04/28/19 20:06 Consult Case Management - Discharge Planning Routine Consult Nephrology Routine 05/01/19 10:42 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 The following is the medical management during stay here: Pneumonia: Progressive worsening for 4 days prior to admission. CXR suggestive of RLL PNA. BCx with NGTD. Influenza negative. Ordered flutter valve use TID. 09Nov started on Zosyn q12h. 11Nov switch to Levaquin PO. On d/c, 5 day course of Azithromycin. Suspected COPD: History of daily cigarette and marijuana use. Unclear if he has formal prior diagnosis. Is not on supplemental oxygen at home. Admitted on scheduled albuterol nebs, Mucomyst BID, and solumedrol 40 mg BID. - Stopped solumedrol IV, switch to prednisone 40 mg PO daily. Will do 12 day prednisone taper - Likely benefit from repeat PFTs once pneumonia has resolved. -given Rx for Spiriva for daily use and albuterol rescue inhaler -f/u appt with pulmonology 05/09 Ongoing medical issues: - Hypertension: Continue home Bumex, metoprolol, amlodipine, losartan. - CKD stage V, polycystic kidney disease: Currently awaiting transplant via [place]. Follows with Drs. Cordon and Clarissa. Nephrology was consulted and cont. peritoneal dialysis with cycler with his home prescription with 5 exchanges, 2.5 liter dwell volume, fill time 10 minutes and drain time 25 minutes. Delflex 1.5% - PTSD, tobacco use disorder: Related to service in [place]. Marijuana helps with flashbacks. Follows with [place]. Family noted he will be okay off of marijuana during this admission. Presently also on 10 cigarettes/day (down from prior approx. 2 ppd). - Back pain, arthritis: Tylenol prn. DVT prophy: Heparin. At time of d/c, pt had no other acute concerns or complaints. Total Time Total Time Spent Total Time Spent (In Minutes): >30 Discharge Plan Discharge Items Patient Disposition: Home - Self-Care Reason For Visit: PNA/COPD Discharge Diagnosis: copd exacerbation Activity: Per Instructions section Non-emergency contact: Primary Care Provider Call non-emergency contact if: you have any medication questions and your symptoms worsen Follow-up/Referrals: Kamilah Rush CRNP [Nurse Practitioner] - 05/09/19 2:00 pm (Please, follow up at [facility] Pulmonology Office with Kamilah Rush JEROME on WednesdayMay 09 at 2:00 pm (arrive 1:45 pm). *The office is located in [address] of [facility], next to this hospital. If you need to change or cancel this appointment, call the office at [phone].) Tj Avalos MD [Primary Care Provider] - Diet: Regular Addtl Attending Provider Instructions: You were admitted for concern of cough and shortness of breath. You were treated with antibiotics and steriods, which you will continue on discharge. Please follow the below instructions on discharge: -continue azithromycin antibiotic for 5 additional days (sent to [facility] pharmacy) -continue steroids in a tapered fashion as follows: 2 days of 40 mg, 3 days of 30 mg, 3 days of 20 mg, 3 days of 10 mg (sent to [facility] pharmacy) -you will start a new daily inhaler Spiriva and will also be given an albuterol (proair) rescue inhaler (sent to [facility] pharmacy) -you will require home Oxygen at 2L at rest and 4L on exertion/movement. This is a new requirement for you -you will follow up with your PCP within one week. They will coordinate any possible pulmonary function testing as an outpatient -you have a pulmonology appt 05/09 at 2pm Pending Studies at Discharge: No Stand-Alone Forms: My [facility], Smoking Cessation Medications and DC Order Prescriptions: New azithromycin 250 mg tablet See Rx Instructions .ROUTE .COMPLEX Qty: 6 RF: 0 prednisone 10 mg tablet 10 mg PO DAILY Qty: 30 RF: 0 Spiriva Respimat 1.25 mcg/actuation mist 2 puffs INH DAILY Qty: 4 RF: 2 albuterol sulfate [ProAir HFA] 90 mcg/actuation HFA aerosol inhaler 1 puffs INH Q6H PRN (Reason: shortness of breath or wheezing) Qty: 18 RF: 0 Continued amlodipine 10 mg tablet 10 mg PO QAM RF: 0 acetaminophen [Tylenol Arthritis Pain] 650 mg tablet extended release 1,300 mg PO QAM RF: 0 losartan 50 mg tablet 50 mg PO QAM RF: 0 tizanidine 4 mg Tablet 4 mg PO Q6H PRN (Reason: Muscle Spasm) RF: 0 bumetanide 1 mg tablet 1 mg PO BID RF: 0 sevelamer carbonate [Renvela] 800 mg tablet 2,400 mg PO TIDM RF: 0 metoprolol tartrate 50 mg tablet 25 mg PO BID RF: 0 Discharge Orders: Discharge Order (Routine); Ordered 05/01/19 Ordered By: Pipe Sharpe Admission Data Admit Date/Time: 04/28/19 18:42 Attending Provider: Trent Christianson Admit Provider: Payton Garza Primary Care Provider: Tj Avalos Other Providers: Payton Garza ; Pankaj Cordon ; Otoniel Butts Other Interventions: Discharge Summary Assessment (RN) Last Done: 05/01/19 17:24 Supervising Physician Co-Signing Physician Notes I personally examined the patient and verified all reyes points of history and exam, discussed case, and agree with decision making with Dr Sharpe. feeling better no SOB. discussed home oxygen, inhalers, etc for COPD he expressed good understanding. d/w respiratory after walk-test and set up home O2. dr sharpe called dtr at pt's request. vitals noted nad heent nc at mmm lungs overall clear no accessory muscles good effort no pallor or icterus COPD exacerbation -symmetric lung exam, questionable infiltrate on CXR at worst, overall picture behaving more as COPD exac than COPD exac'd by pneumonia -- and given his rather significant risks for quinolone related ADRs, will descalate Rx to zithromax to cover for atypicals but does not appear to need typical gram negative coverage -home on zithromax, tapering steroids -spiriva daily, albuterol prn -O2 -close PCP f/u Resident Activity Tracking Resident Involvement: Resident Care Provided Care Provided: Adult Hospital Medicine
--- NOTE | 2019-05-01 17:39 | Billing Data ---
Coding Level of Care Code D/C Day Management >30 mins
[2019-05-03] MEDS ORDERED: levoFLOXacin 500 MG TAB PO SCH (11:00)
== END 2019-05-01 18:02 | disposition home or self-care (01) | DRG 193 ==
LOC: ED 16:46 → 2N 18:42 → SUATTDRO 18:42 → 2N 19:36

== ENCOUNTER 2021-06-30 08:07 | Inpatient (IN) ==
[2021-06-30] MEDS ORDERED: PIPERACILL/TAZOBAC CONSULT ACTIVE PRN (08:15)
[2021-06-30] MEDS ORDERED: PIPERACILLIN/TAZOBACTAM 4.5 GM/120 ML BAG IV ONE (08:15)
--- NOTE | 2021-06-30 08:21 | Emergency Department Note ---
Impression & Plan PNA (pneumonia), Hypoxia, Chest pain, Acute renal failure ED Provider Note NAME: ALEX LAMAS AGE: 70 SEX: M : 1950 ARRIVES VIA: Ambulance INFORMANT: Patient, EMS, the patient's family ED PROVIDER(S): Michael Schulte DO CHIEF COMPLAINT: Difficulty breathing HPI: The patient is a 70-year-old male who presented to emergency department by ambulance for an evaluation of difficulty breathing. The patient has had subjective fever and rigors. He is also had multiple episodes where his legs became very weak and he fell to the ground. The patient has a history of cerebral aneurysm in the past but also has chronic renal failure on peritoneal dialysis. He also has a history of COPD. He was noted to have significant h ypoxia prior to arrival. He states he has had a cough. He called his primary care physician who recommended a COVID test. He was not seen by his primary care physician. He denies having any lower extremity swelling or pain. He does complain of significant right-sided chest and flank pain. He states he has had dialysis at night. He is noticed no cloudy or bloody fluid when he did his dialysis. He denies having any headache or neck pain. He states he has been taking all of his medications but did not take his medications this morning. He was noted to have an oxygen saturation of 70%. ALS placed supplemental oxygen and gave the patient a DuoNeb. ROS: See above HPI for pertinent positives & negatives. A total of 10 systems reviewed and were otherwise negative. PAST MEDICAL HISTORY: See Below PAST SURGICAL HISTORY: See Below FAMILY HISTORY: See Below SOCIAL HISTORY: See Below HOME MEDICATIONS: See Below ALLERGIES: See Below VITALS: See Below PHYSICAL EXAMINATION: GENERAL: The patient is awake and alert. He is very anxious appearing. EYES: The conjunctivae are clear. The pupils are round and reactive. EARS, NOSE, MOUTH AND THROAT: The nose is without any evidence of any deformity. NECK: The neck is nontender and supple. RESPIRATORY: Diminished breath sounds are noted in the left lung field. There were rales noted in the right lung field. There was tachypnea as well as mild conversational dyspnea. There appeared to be some crepitus over the right lower chest wall. CARDIOVASCULAR: Regular rate and rhythm noted there no murmurs rubs or gallops normal S1 normal S2. GASTROINTESTINAL: The abdomen is soft and nondistended. Dialysis catheter was noted in the lower abdomen. MUSCULOSKELETAL/EXTREMITIES: There is no evidence of gross deformity full range of motion is noted in the hips and shoulders. SKIN: Skin tear was noted in the upper arm. There was pedal edema bilaterally. NEUROLOGIC: Patient is awake alert and oriented x3. Strength is symmetric. MEDICAL DECISION MAKING: The patient is a 70-year-old male who presented to emergency department for an evaluation of difficulty breathing. The patient's daughter did provide most of the history prior to the patient's arrival. The patient was noted to have a fever and cough. He was noted to have hypoxia prior to arrival. He has been complaining of right-sided chest pain. He had a fall today because of generalized weakness. The patient suffered a skin tear to his right upper extremity. I discussed patient's laboratory and radiographic studies with him and his daughter. The patient was found no signs of pneumonia on chest x-ray. He was also found to have hypoxia with any exertion. Blood pressure was fluctuating he was treated with IV fluid and IV antibiotics in the emergency department but given his history of renal failure IV fluids were watched closely. The patient was feeling somewhat better on reevaluation. [facility] have agreed to evaluate the patient in the emergency department for further management and disposition. 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 Dialysis orders were placed. Triage Nursing notes reviewed. Prior medical records reviewed Vital Signs: reviewed and remarkable for hypoxia and hypotension. Differential diagnosis: Viral syndrome, otitis, pharyngitis, pneumonia, influenza, meningitis, urinary tract infection, sepsis, bacteremia, as well as other pathologies. ER treatment provided: See below Diagnostics interpreted by me: ECG: EKG was obtained in the emergency department. My interpretation is sinus tachycardia at 108 bpm. No PVCs were noted. Nonspecific ST segment depressions were noted. LVH was suggested by voltage criteria. This was compared to a tracing from October 01, 2019. No significant changes were noted. Cardiac Monitoring: An order was placed for continuous cardiac monitoring. The monitor shows a rate of 88 bpm with sinus rhythm. Laboratory studies: As stated above and show below. Imaging studies: See below Consultation(s): I discussed this case with Dr. Klein who [facility] ED COURSE: Procedures: none PDMP:reviewed and no issues Critical Care: I have personally spent greater than 45 minutes of critical care time in the direct management of this patient. This includes bedside care, interpretation of diagnostic studies, and testing, discussion with consultants, patient, and family members, and other required patient management activities. This 45 minutes is in excess of all separately billable procedures. Past Med/Surg History Medical History (Updated 06/30/21 @ 15:08 by Michael Schulte DO) Alzheimer disease Anemia Benign neoplasm of skin of nose Benign prostate hyperplasia CCPD (continuous cycling peritoneal dialysis) status port in place left abdomen--dialysis daily at home Chronic kidney disease, stage 5 Chronic obstructive pulmonary disease inhaler/nebulizer daily Gout Hemorrhoids Hypertension Intracranial hemorrhage 2013 [place] Low back pain On home oxygen therapy 2L N/C at hs Polycystic kidney disease, adult type (09/03/12) Rotator cuff sprain Secondary hyperparathyroidism (of renal origin) Tremor of both hands Surgical History History of cerebral aneurysm repair 2012 [facility] [place]--clips/coils in place History of colonoscopy History of tooth extraction all teeth Family History Other No family history of adverse response to anesthesia Denies family history of Myocardial infarction Social History Smoking Status: Former smoker Cigarettes Per Day: 10; Second Hand Exposure: Yes (granddaughter smokes); Hx Alcohol Use: No Hx Substance Use: No Preferred Language: Citizen Of [place] Communication Ability: Effective Medical Concierge Required: No Beliefs That Will Affect Care: None marital status: Unknown Current Living Situation: Family Current Living Situation Comment: Lives with granddaughter Feels Safe at Home: Yes Safety Concerns: Feels Safe At This Time Assistive Devices: Oxygen - Continuous Allergies Allergies Allergy/AdvReac Type Severity Reaction Status Date / Time lisinopril Allergy Mild COUGH Verified 06/30/21 09:32 Home Meds Home Medications Medication Instructions Recorded Confirmed sevelamer carbonate 800 mg tablet 2,400 mg PO TIDM 04/19/19 06/30/21 (Renvela) cetirizine 10 mg tablet 10 mg PO QAM 07/26/20 06/30/21 calcitriol 0.5 mcg capsule 1.5 mcg PO UD 06/30/21 06/30/21 gabapentin 100 mg capsule 100 mg PO HS 06/30/21 06/30/21 guaifenesin 600 mg tablet, 600 mg PO BID 06/30/21 06/30/21 extended release 12 hr (Mucinex) metoprolol succinate 50 mg 25 mg PO DAILY 06/30/21 06/30/21 tablet,extended release 24 hr polyethylene glycol 3350 17 17 g PO BID 06/30/21 06/30/21 gram/dose oral powder (Miralax) Previous Rx's Medication Instructions Recorded nebulizer accessories #1 ea 10/30/19 albuterol sulfate 90 mcg/actuation 1 inh INH Q6H PRN #18 gm 02/18/21 aerosol inhaler (ProAir HFA) ipratropium 0.5 mg-albuterol 3 mg 3 ml INH QAM #180 ml 02/18/21 (2.5 mg base)/3 mL nebulization soln tiotropium 2.5 mcg-olodaterol 2.5 2 puff INH QAM #4 g 02/18/21 mcg/actuation mist for inhalation (Stiolto Respimat) Results & Data (ED) Vital Signs Vital Signs - 24 hr 06/30/21 08:15 06/30/21 08:30 06/30/21 08:35 Temperature 37.8 C H Temperature Source Oral Pulse Rate 107 H Pulse Rate from SpO2 Sensor Respiratory Rate 23 Respiratory Effort / Characteristics Non-Labored Spontaneous Respiratory Depth Shallow Respiratory Pattern Tachypnea Blood Pressure 113/61 114/75 Blood Pressure Mean 78 88 Blood Pressure Position Lying Pulse Oximetry 83 L 83 L 88 L Oxygen Delivery Method Room Air Room Air Nasal Cannula Nasal Cannula Oxymask Oxygen Flow Rate 0 4 Sepsis Recent Fever Within 48 Hours Yes Sepsis New/Unexplained Change in Mental Status N/A Sepsis Action Taken by Nursing Physician Notified Oxygen Flow Rate - Titration 4 4 Pulse Oximetry Post Tiitration 88 L 91 06/30/21 08:45 06/30/21 09:15 06/30/21 09:30 Temperature Temperature Source Pulse Rate 102 H Pulse Rate from SpO2 Sensor 98 H Respiratory Rate 19 19 21 Respiratory Effort / Characteristics Non-Labored Spontaneous Non-Labored Spontaneous Respiratory Depth Respiratory Pattern Blood Pressure 95/55 L Blood Pressure Mean 68 Blood Pressure Position Pulse Oximetry 89 L 92 91 Oxygen Delivery Method Oxymask Oxymask Oxymask Oxygen Flow Rate 4 4 4 Sepsis Recent Fever Within 48 Hours Sepsis New/Unexplained Change in Mental Status Sepsis Action Taken by Nursing Oxygen Flow Rate - Titration Pulse Oximetry Post Tiitration 06/30/21 09:45 06/30/21 10:00 06/30/21 10:15 Temperature Temperature Source Pulse Rate 100 H Pulse Rate from SpO2 Sensor 100 H Respiratory Rate 19 17 19 Respiratory Effort / Characteristics Non-Labored Spontaneous Non-Labored Spontaneous Respiratory Depth Respiratory Pattern Blood Pressure 84/53 L Blood Pressure Mean 63 Blood Pressure Position Pulse Oximetry 92 86 L 90 Oxygen Delivery Method Oxymask Oxymask Oxymask Oxygen Flow Rate 4 5 4 Sepsis Recent Fever Within 48 Hours Sepsis New/Unexplained Change in Mental Status Sepsis Action Taken by Nursing Oxygen Flow Rate - Titration Pulse Oximetry Post Tiitration 06/30/21 10:30 06/30/21 10:45 06/30/21 11:00 Temperature Temperature Source Pulse Rate 101 H 93 H Pulse Rate from SpO2 Sensor 97 H 93 H Respiratory Rate 18 16 Respiratory Effort / Characteristics Non-Labored Spontaneous Respiratory Depth Respiratory Pattern Blood Pressure 81/49 L 89/52 L Blood Pressure Mean 59 64 Blood Pressure Position Pulse Oximetry 88 L 91 91 Oxygen Delivery Method Oxymask Oxymask Oxymask Oxygen Flow Rate 5 4 5 Sepsis Recent Fever Within 48 Hours Sepsis New/Unexplained Change in Mental Status Sepsis Action Taken by Nursing Oxygen Flow Rate - Titration Pulse Oximetry Post Tiitration 06/30/21 11:05 06/30/21 11:30 06/30/21 12:00 Temperature Temperature Source Pulse Rate 95 H 95 H 95 H Pulse Rate from SpO2 Sensor 96 H 95 H 95 H Respiratory Rate 22 16 17 Respiratory Effort / Characteristics Respiratory Depth Respiratory Pattern Blood Pressure 97/56 L 113/66 98/59 L Blood Pressure Mean 69 81 72 Blood Pressure Position Pulse Oximetry 91 92 92 Oxygen Delivery Method Oxygen Flow Rate Sepsis Recent Fever Within 48 Hours Sepsis New/Unexplained Change in Mental Status Sepsis Action Taken by Nursing Oxygen Flow Rate - Titration Pulse Oximetry Post Tiitration Home Medications Current Medication List: was personally reviewed by me Laboratory Data Attestation: I reviewed the patient's lab results. Result diagrams: 06/30/21 08:20 06/30/21 08:20 Lab Results 06/30/21 06/30/21 06/30/21 Range/Units 08:20 08:20 08:20 WBC 23.34 H (4.8-10.8) K/uL RBC 3.35 L (4.7-6.1) M/uL Hgb 10.3 L (14.0-18.0) g/dL Hct 30.6 L (42-52) % MCV 91.3 (80-100) fL MCH 30.7 (25-34) pg MCHC 33.7 (32-36) g/dL RDW Std Deviation 53.7 H (36.4-46.3) fL RDW Coeff of Giovana 16.0 H (11.5-14.5) % Plt Count 343 (130-400) K/uL MPV 10.4 (7.4-10.4) fL Immature Gran % (Auto) 1.0 % Neut % (Auto) 84.6 % Lymph % (Auto) 5.2 % [place] % (Auto) 6.8 % Eos % (Auto) 2.3 % Baso % (Auto) 0.1 % Neut # (Auto) 19.74 H (1.4-6.5) K/uL Lymph # (Auto) 1.22 (1.2-3.4) K/uL [place] # (Auto) 1.59 H (0.11-0.59) K/uL Eos # (Auto) 0.53 H (0-0.5) K/uL Baso # (Auto) 0.02 (0-0.2) K/uL Immature Gran # (Auto) 0.24 H (0.00-0.02) K/uL ESR 109 H (0-20) mm/hr PT 10.2 (9.0-12.0) Seconds INR 1.0 (0.9-1.1) APTT 27.2 (21.0-31.0) Seconds PTT Ratio 1.0 VBG pH (7.36-7.41) VBG pCO2 (38-50) mmHg VBG pO2 mmHg VBG HCO3 mmol/L VBG O2 Saturation % VBG Base Excess mEq/L Barometric Pressure mm/Hg Sodium (136-145) mmol/L Potassium (3.5-5.1) mmol/L Chloride (98-107) mmol/L Carbon Dioxide (21-32) mmol/L Anion Gap (3-11) BUN (7-18) mg/dl Creatinine (0.6-1.4) mg/dl Est Cr Clr Drug Dosing ml/min Est GFR ( Amer) ml/min Est GFR (Non-Af Amer) ml/min BUN/Creatinine Ratio (10-20) Glucose (70-99) mg/dl Lactate (0.4-2.0) mmol/L Calcium (8.5-10.1) mg/dl Magnesium (1.8-2.4) mg/dl Total Bilirubin (0.2-1) mg/dl AST (15-37) U/L ALT (12-78) Alkaline Phosphatase (45-117) U/L Troponin I (0-0.045) ng/ml C-Reactive Protein (0-0.29) mg/dl Total Protein (6.4-8.2) gm/dl Albumin (3.4-5.0) gm/dl Globulin (2.5-4.0) gm/dl Albumin/Globulin Ratio (0.9-2) Procalcitonin (0-0.5) ng/ml Specimen Hemolysis SARS-CoV-2 (PCR) (Negative) Influenza Type A (PCR) (Neg) Influenza Type B (PCR) (Neg) RSV (RT-PCR) (Neg) 06/30/21 06/30/21 06/30/21 Range/Units 08:20 08:20 08:20 WBC (4.8-10.8) K/uL RBC (4.7-6.1) M/uL Hgb (14.0-18.0) g/dL Hct (42-52) % MCV (80-100) fL MCH (25-34) pg MCHC (32-36) g/dL RDW Std Deviation (36.4-46.3) fL RDW Coeff of Giovana (11.5-14.5) % Plt Count (130-400) K/uL MPV (7.4-10.4) fL Immature Gran % (Auto) % Neut % (Auto) % Lymph % (Auto) % [place] % (Auto) % Eos % (Auto) % Baso % (Auto) % Neut # (Auto) (1.4-6.5) K/uL Lymph # (Auto) (1.2-3.4) K/uL [place] # (Auto) (0.11-0.59) K/uL Eos # (Auto) (0-0.5) K/uL Baso # (Auto) (0-0.2) K/uL Immature Gran # (Auto) (0.00-0.02) K/uL ESR (0-20) mm/hr PT (9.0-12.0) Seconds INR (0.9-1.1) APTT (21.0-31.0) Seconds PTT Ratio VBG pH (7.36-7.41) VBG pCO2 (38-50) mmHg VBG pO2 mmHg VBG HCO3 mmol/L VBG O2 Saturation % VBG Base Excess mEq/L Barometric Pressure mm/Hg Sodium 132 L (136-145) mmol/L Potassium (3.5-5.1) mmol/L Chloride 96 L (98-107) mmol/L Carbon Dioxide 24 (21-32) mmol/L Anion Gap 12.0 H (3-11) BUN 88 H (7-18) mg/dl Creatinine 8.85 H* (0.6-1.4) mg/dl Est Cr Clr Drug Dosing 8.4 ml/min Est GFR ( Amer) 6.3 ml/min Est GFR (Non-Af Amer) 5.4 ml/min BUN/Creatinine Ratio 9.8 L (10-20) Glucose 117 H (70-99) mg/dl Lactate 1.3 (0.4-2.0) mmol/L Calcium 9.5 (8.5-10.1) mg/dl Magnesium (1.8-2.4) mg/dl Total Bilirubin 0.7 (0.2-1) mg/dl AST (15-37) U/L ALT 20 (12-78) Alkaline Phosphatase 120 H (45-117) U/L Troponin I < 0.015 (0-0.045) ng/ml C-Reactive Protein 44.00 H (0-0.29) mg/dl Total Protein 6.4 (6.4-8.2) gm/dl Albumin 1.8 L (3.4-5.0) gm/dl Globulin 4.6 H (2.5-4.0) gm/dl Albumin/Globulin Ratio 0.4 L (0.9-2) Procalcitonin 20.61 H (0-0.5) ng/ml Specimen Hemolysis SARS-CoV-2 (PCR) (Negative) Influenza Type A (PCR) (Neg) Influenza Type B (PCR) (Neg) RSV (RT-PCR) (Neg) 06/30/21 06/30/21 06/30/21 Range/Units 08:20 09:26 09:30 WBC (4.8-10.8) K/uL RBC (4.7-6.1) M/uL Hgb (14.0-18.0) g/dL Hct (42-52) % MCV (80-100) fL MCH (25-34) pg MCHC (32-36) g/dL RDW Std Deviation (36.4-46.3) fL RDW Coeff of Giovana (11.5-14.5) % Plt Count (130-400) K/uL MPV (7.4-10.4) fL Immature Gran % (Auto) % Neut % (Auto) % Lymph % (Auto) % [place] % (Auto) % Eos % (Auto) % Baso % (Auto) % Neut # (Auto) (1.4-6.5) K/uL Lymph # (Auto) (1.2-3.4) K/uL [place] # (Auto) (0.11-0.59) K/uL Eos # (Auto) (0-0.5) K/uL Baso # (Auto) (0-0.2) K/uL Immature Gran # (Auto) (0.00-0.02) K/uL ESR (0-20) mm/hr PT (9.0-12.0) Seconds INR (0.9-1.1) APTT (21.0-31.0) Seconds PTT Ratio VBG pH 7.39 (7.36-7.41) VBG pCO2 38 (38-50) mmHg VBG pO2 40 mmHg VBG HCO3 22 mmol/L VBG O2 Saturation 73.1 % VBG Base Excess -2.2 mEq/L Barometric Pressure 737.5 mm/Hg Sodium (136-145) mmol/L Potassium 3.5 (3.5-5.1) mmol/L Chloride (98-107) mmol/L Carbon Dioxide (21-32) mmol/L Anion Gap (3-11) BUN (7-18) mg/dl Creatinine (0.6-1.4) mg/dl Est Cr Clr Drug Dosing ml/min Est GFR ( Amer) ml/min Est GFR (Non-Af Amer) ml/min BUN/Creatinine Ratio (10-20) Glucose (70-99) mg/dl Lactate (0.4-2.0) mmol/L Calcium (8.5-10.1) mg/dl Magnesium 2.0 (1.8-2.4) mg/dl Total Bilirubin (0.2-1) mg/dl AST 15 (15-37) U/L ALT (12-78) Alkaline Phosphatase (45-117) U/L Troponin I (0-0.045) ng/ml C-Reactive Protein (0-0.29) mg/dl Total Protein (6.4-8.2) gm/dl Albumin (3.4-5.0) gm/dl Globulin (2.5-4.0) gm/dl Albumin/Globulin Ratio (0.9-2) Procalcitonin (0-0.5) ng/ml Specimen Hemolysis SARS-CoV-2 (PCR) NEGATIVE (Negative) Influenza Type A (PCR) Negative (Neg) Influenza Type B (PCR) Negative (Neg) RSV (RT-PCR) Negative (Neg) Administered Medications Albuterol (Albut/Ipratrop 3mg/0.5mg Neb 3 Ml Vial) 3 ml INH QDR [facility]; Protocol Stop: 07/30/21 12:59 Last Admin: 06/30/21 15:01 Dose: 3 ml Documented by: [id number] Calcitriol (Calcitriol 0.25 Mcg Capsule) 1.5 mcg PO [id number] [facility] Stop: 07/30/21 12:59 Last Admin: 06/30/21 16:20 Dose: 1.5 mcg Documented by: [id number] Cetirizine HCl (Cetirizine Hcl 10 Mg Tablet) 10 mg PO QAM [facility] Stop: 07/30/21 12:54 Last Admin: 06/30/21 14:59 Dose: 10 mg Documented by: [id number] Guaifenesin (Guaifenesin 600 Mg Tabcr) 600 mg PO BID [facility] Stop: 07/30/21 12:54 Last Admin: 06/30/21 15:00 Dose: 600 mg Documented by: [id number] Sevelamer HCl (Sevelamer Hcl 800 Mg Tablet) 2,400 mg PO TIDM NÉSTOR Stop: 07/30/21 16:59 Last Admin: 06/30/21 16:24 Dose: 2,400 mg Documented by: [id number] Discontinued Medications Piperacillin Sod/Tazobactam Sod (Zosyn) 4.5 gm in 120 mls @ 240 mls/hr IV NOW ONE Stop: 06/30/21 08:44 Last Infusion: 06/30/21 10:06 Dose: 0 mls/hr Documented by: [id number] Admin: 06/30/21 09:30 Dose: 240 mls/hr Documented by: [id number] Sodium Chloride (Nss) 500 mls @ 999 mls/hr IV .Q31M ONE Stop: 06/30/21 09:15 Last Infusion: 06/30/21 10:06 Dose: 0 mls/hr Documented by: [id number] Admin: 06/30/21 09:36 Dose: 999 mls/hr Documented by: [id number] Vancomycin HCl 1,500 mg/ (Sodium Chloride) 530 mls @ 200 mls/hr IV NOW ONE Stop: 06/30/21 12:17 Last Infusion: 06/30/21 15:09 Dose: 0 mls/hr Documented by: [id number] Admin: 06/30/21 12:18 Dose: 200 mls/hr Documented by: [id number] Sodium Chloride (Nss 1000ml) 500 mls @ 999 mls/hr IV .Q31M ONE Stop: 06/30/21 10:57 Last Infusion: 06/30/21 11:09 Dose: 0 mls/hr Documented by: [id number] Admin: 06/30/21 10:37 Dose: 999 mls/hr Documented by: [id number] Azithromycin 500 mg/ Dextrose 255 mls @ 125 mls/hr IV ONE STA Stop: 06/30/21 13:25 Last Infusion: 06/30/21 15:09 Dose: 0 mls/hr Documented by: [id number] Admin: 06/30/21 12:18 Dose: 125 mls/hr Documented by: [id number] Morphine Sulfate (Morphine Sulfate 4 Mg/Ml 1 Ml Carp\Vial) 4 mg IV NOW STA Stop: 06/30/21 08:46 Last Admin: 06/30/21 09:35 Dose: 4 mg Documented by: [id number] Ondansetron HCl (Ondansetron Inj 2 Mg/Ml 2 Ml Vial) 4 mg IV NOW STA Stop: 06/30/21 08:46 Last Admin: 06/30/21 09:35 Dose: 4 mg Documented by: [id number] Imaging Data Radiologist's Impression: Abdomen/Pelvis CT 06/30/21 08:15 CT abd pelvis wo con CLINICAL HISTORY: right flank pain TECHNIQUE: Helical axial images of the abdomen and pelvis were obtained. Automated dose lowering techniques and/or adjustment according to patient size were utilized for this exam. This exam was performed without intravenous contrast. COMPARISON: Comparison is made to CT abdomen pelvis 02/03/2019 FINDINGS: Lower chest: For findings above the diaphragm, please see CT chest performed same day. Liver: Unremarkable. No focal lesions are seen. Gallbladder and biliary tree: No calcified gallstones. Normal caliber wall. No intra- or extrahepatic biliary ductal dilation. Pancreas: Unremarkable, no focal lesions. Spleen: Unremarkable. Adrenals: Bilateral adrenal thickening is unchanged. Kidneys and ureters: Multiple renal cysts are again seen, some with calcific components. Calcific components in a medial right renal cysts is new from prior exam. Bladder: Unremarkable. Reproductive organs: Unremarkable. Bowel: Unremarkable appearance of the bowel. The appendix is normal. Lymph nodes Retroperitoneal: Unremarkable. Mesenteric: Unremarkable. Pelvic: Unremarkable. Peritoneum: There is moderate ascites. A peritoneal drain is seen with its tip coiled in the pelvis. Vessels: Atherosclerotic calcifications are seen. Abdominal wall: Unremarkable. Bones: Unremarkable. IMPRESSION: 1. No evidence of hydronephrosis. Multiple cysts are again seen with some calcifications which have developed from the prior exam. 2. Moderate ascites. Peritoneal drain is in place. ACT 112: Negative or not required by law. Electronically signed by: Arthur Taylor M.D. 06/30/2021 9:[address] 06/30/21 08:15 CT OF THE CHEST WITHOUT IV CONTRAST CLINICAL HISTORY: Cough. Fall. COMPARISON STUDY: Chest CT February 03, 2019. Chest radiograph performed earlier today. TECHNIQUE: Axial images of the chest were obtained without IV contrast. Images were reviewed in the axial, sagittal, and coronal planes. IV contrast was not administered for this examination. Automated exposure control was utilized for the study. A dose lowering technique was utilized adhering to the principles of ALARA. FINDINGS: Moderate cardiomegaly is noted. There is no pericardial effusion. A enlarged right paratracheal lymph node on axial image 106 of 301 measures 2.3 x 1.9 cm. Mildly enlarged right hilar lymph node is present. There is no pneumothorax. A small right pleural effusion is noted. Lungs are suboptimally assessed due to respiratory motion. There is severe upper lobe predominant emphysema. Multifocal airspace opacities throughout the lungs are noted, most pronounced within the right middle and right lower lobes. Note is made of confluent airspace opacity within the right middle lobe or anterior segment of the right upper lobe. This likely has associated fissural fluid. Apparent locules of gas within this opacity likely reflect emphysematous lung although cavitation could appear similar. Additional nodular airspace opacities within the upper lobes are likely infectious. No acute fractures identified within visualized skeletal structures. Numerous cysts within visualized portions of the kidneys are noted. There is upper abdominal ascites. The abdomen and pelvis will be reported separately. Thoracic aorta is suboptimally assessed on this unenha nced exam but no evidence for traumatic injury. Mild dilatation of the ascending aorta, measuring 4.2 cm, is noted. IMPRESSION: 1. No acute traumatic findings within the chest on unenhanced exam. 2. Multiple foci of consolidation within the lungs suggestive of multifocal pneumonia. Confluent airspace opacity within the right middle lobe or anterior segment of the right upper lobe has associated fissural fluid and apparent locules of gas. This gas likely reflects emphysematous lung outlined by pleural fluid/consolidation. However, cavitation could appear similar. Additional airspace opacities are also likely infectious however are indeterminate. A follow-up chest CT in 2 months to ensure resolution is recommended to exclude the less likely possibility of a neoplastic process. 3. Mildly enlarged mediastinal and right hilar lymph nodes. These are likely reactive but can be assessed on follow-up CT. 4. Emphysema. 5. Small right pleural effusion. ACT 112: Negative or not required by law. Electronically signed by: Yunior Arroyo M.D. 06/30/2021 9:[address] 06/30/21 08:23 CT OF THE CERVICAL SPINE WITHOUT CONTRAST CLINICAL HISTORY: Fall. COMPARISON STUDY: Cervical spine CT September 03, 2012. TECHNIQUE: Helical axial images of the cervical spine were obtained without IV contrast. Sagittal and coronal reconstructions were viewed. Automated exposure control was utilized for the study. A dose lowering technique was utilized adhering to the principles of ALARA. FINDINGS: Alignment of the cervical spine is anatomic. Vertebral body heights are maintained. No acute cervical spine fracture or subluxation is present. There is no prevertebral edema. Facet joints are intact. Note is made of severe multilevel facet arthrosis. There is moderate multilevel disc space narrowing and osteophytosis within the cervical spine. Emphysema and suspected biapical scarring within the lung apices is partially imaged on this examination. The chest CT will be reported separately. IMPRESSION: No acute cervical spine fracture or subluxation. ACT 112: Negative or not required by law. Electronically signed by: Yunior Arroyo M.D. 06/30/2021 9:[address] 06/30/21 08:23 CT head/brain wo con CLINICAL HISTORY: fall Technique: Contiguous axial CT images of the head were acquired from the base of the skull to the vertex without intravenous contrast administration. Images were viewed in brain, subdural and bone windows. Automated dose lowering techniques and/or adjustment according to patient size were utilized for this exam. Comparison: Comparison is made to CT head 10/01/2019 Findings: The ventricles, basal cisterns, and cerebral sulci are normal. There is no acute intracranial hemorrhage or evidence of acute territorial infarction. Neither mass effect, shift of the midline structures, nor abnormal extra-axial fluid collections are shown. Encephalomalacia in the left periorbital frontal lobe is unchanged. Postsurgical changes are noted in the left frontal lobe, unchanged. Imaged portions of the paranasal sinuses and mastoid air cells are clear. The orbits appear normal. There are no acute fractures of the calvaria or scalp swelling. Impression: No acute intracranial hemorrhage, skull fractures, or scalp swelling. ACT 112: Negative or not required by law. Electronically signed by: Arthur Taylor M.D. 06/30/2021 9:30 AM Discharge Plan Visit Data Chief Complaint: Illness ED Provider: Michael Schulte Discharge Problem: PNA (pneumonia), Hypoxia, Chest pain, Acute renal failure Patient Disposition: Admitted As Inpatient Discharge Instructions Interventions: ED Discharge Assessment Last Done: 06/30/21 12:57 Discharge Problem: PNA (pneumonia) Qualifiers: Pneumonia type: due to unspecified organism Laterality: bilateral Lung location: unspecified part of lung Qualified Code(s): J18.9 - Pneumonia, unspecified organism Chest pain Qualifiers: Chest pain type: unspecified Qualified Code(s): R07.9 - Chest pain, unspecified Acute renal failure Qualifiers: Acute renal failure type: unspecified Qualified Code(s): N17.9 - Acute kidney failure, unspecified
[2021-06-30 08:37] LABS: Basophils # (auto) 0.02 K/uL (0-0.2); Basophils % (auto) 0.1 %; Eosinophils # (auto) 0.53 K/uL (0-0.5); Eosinophils % (auto) 2.3 %; Hematocrit (blood only) 30.6 % (42-52); Hemoglobin 10.3 g/dL (14.0-18.0); Immature Granulocytes # (auto) 0.24 K/uL (0.00-0.02); Lymphocytes # (auto) 1.22 K/uL (1.2-3.4); Lymphocytes % (auto) 5.2 %; Mean Corpuscular Hemoglobin 30.7 pg (25-34); Mean Corpuscular Hgb Conc 33.7 g/dL (32-36); Mean Corpuscular Volume 91.3 fL (80-100); Mean Platelet Volume 10.4 fL (7.4-10.4); Monocytes # (auto) 1.59 K/uL (0.11-0.59); Monocytes % (auto) 6.8 %; Neutrophils # (auto) 19.74 K/uL (1.4-6.5); Neutrophils % (auto) 84.6 %; Platelet Count 343 K/uL (130-400); RDW Standard Deviation 53.7 fL (36.4-46.3); Red Blood Count 3.35 M/uL (4.7-6.1); White Blood Count 23.34 K/uL (4.8-10.8)
[2021-06-30] MEDS ORDERED: ONDANSETRON INJ 2 MG/ML 2 ML VIAL IV STA (08:45)
[2021-06-30] MEDS ORDERED: MoRPHine SULFATE 4 MG/ML 1 ML CARP\\VIAL IV STA (08:45)
[2021-06-30] MEDS ORDERED: SODIUM CHLORIDE 0.9% 500 ML IV ONE (08:45)
[2021-06-30 08:47] LABS: Partial Thromboplastin Time 27.2 Seconds (21.0-31.0); Prothrombin Time 10.2 Seconds (9.0-12.0)
--- NOTE | 2021-06-30 08:50 | XRay Report ---
XR chest 1V portable HISTORY: 70 years-old Male SEPSIS sepsis. Acute chest trauma status post fall COMPARISON: Chest radiograph 10/01/2019 TECHNIQUE: Portable AP view of the chest FINDINGS: Cardiac silhouette is upper limits of normal in size. Atherosclerosis of the aorta. No pneumothorax o r large pleural effusion. Bilateral ill-defined interstitial opacities are similar to prior. There ar e patchy bilateral airspace densities, most pronounced within the right perihilar distribution and ri ght lung base. Degenerative changes of the shoulders and spine. IMPRESSION: Right infrahilar and right basilar predominant airspace opacities are suggestive of multi focal pneumonia. ACT 112: Negative or not required by law. The above report was generated using voice recognition software. It may contain grammatical, syntax o r spelling errors. Electronically signed by: Bethel Logan M.D. 06/30/2021 8:48 AM
[2021-06-30 09:30] LABS: Alanine Aminotransferase 20 (12-78); Albumin Globulin Ratio 0.4 (0.9-2); Albumin Level 1.8 gm/dl (3.4-5.0); Alkaline Phosphatase 120 U/L (45-117); BUN Creatinine Ratio 9.8 (10-20); Bilirubin,Total 0.7 mg/dl (0.2-1); Blood Urea Nitrogen 88 mg/dl (7-18); Calcium 9.5 mg/dl (8.5-10.1); Carbon Dioxide 24 mmol/L (21-32); Chloride 96 mmol/L (98-107); Creatinine Clr Calc Pharmacy 8.4 ml/min; Est GFR (African American) 6.3 ml/min; Est GFR (Non-African American) 5.4 ml/min; Globulin 4.6 gm/dl (2.5-4.0); Glucose 117 mg/dl (70-99); Sodium 132 mmol/L (136-145); Total Protein 6.4 gm/dl (6.4-8.2); Troponin I < 0.015 ng/ml (0-0.045)
--- NOTE | 2021-06-30 09:31 | CT Scan Report ---
CT head/brain wo con CLINICAL HISTORY: fall Technique: Contiguous axial CT images of the head were acquired from the base of the skull to the neena yesenia without intravenous contrast administration. Images were viewed in brain, subdural and [facility]. Automated dose lowering techniques and/or adjustment according to patient size were utilized for this exam. Comparison: Comparison is made to CT head 10/01/2019 Findings: The ventricles, basal cisterns, and cerebral sulci are normal. There is no acute intracranial hemorrh age or evidence of acute territorial infarction. Neither mass effect, shift of the midline structures , nor abnormal extra-axial fluid collections are shown. Encephalomalacia in the left periorbital fron ehsan lobe is unchanged. Postsurgical changes are noted in the left frontal lobe, unchanged. Imaged portions of the paranasal sinuses and mastoid air cells are clear. The orbits appear normal. There are no acute fractures of the calvaria or scalp swelling. Impression: No acute intracranial hemorrhage, skull fractures, or scalp swelling. ACT 112: Negative or not required by law. Electronically signed by: Arthur Taylor M.D. 06/30/2021 9:30 AM
--- NOTE | 2021-06-30 09:31 | CT Scan Report ---
CT OF THE CERVICAL SPINE WITHOUT CONTRAST CLINICAL HISTORY: Fall. COMPARISON STUDY: Cervical spine CT September 03, 2012. TECHNIQUE: Helical axial images of the cervical spine were obtained without IV contrast. Sagittal a nd coronal reconstructions were viewed. Automated exposure control was utilized for the study. A do se lowering technique was utilized adhering to the principles of ALARA. FINDINGS: Alignment of the cervical spine is anatomic. Vertebral body heights are maintained. No acut e cervical spine fracture or subluxation is present. There is no prevertebral edema. Facet joints are intact. Note is made of severe multilevel facet arthrosis. There is moderate multilevel disc space narrowing and osteophytosis within the cervical spine. Emphysema and suspected biapical scarring with in the lung apices is partially imaged on this examination. The chest CT will be reported separately. IMPRESSION: No acute cervical spine fracture or subluxation. ACT 112: Negative or not required by law. Electronically signed by: Yunior Arroyo M.D. 06/30/2021 9:29 AM
[2021-06-30] MEDS ORDERED: VANCOMYCIN HCL 1,500 MG in SODIUM CHLORIDE 0.9% 500 ML IV ONE (09:39)
[2021-06-30] MEDS ORDERED: VANCOMYCIN CONSULT ACTIVE PRN (09:39)
--- NOTE | 2021-06-30 09:46 | CT Scan Report ---
CT abd pelvis wo con CLINICAL HISTORY: right flank pain TECHNIQUE: Helical axial images of the abdomen and pelvis were obtained. Automated dose lowering tech niques and/or adjustment according to patient size were utilized for this exam. This exam was perfor med without intravenous contrast. COMPARISON: Comparison is made to CT abdomen pelvis 02/03/2019 FINDINGS: Lower chest: For findings above the diaphragm, please see CT chest performed same day. Liver: Unremarkable. No focal lesions are seen. Gallbladder and biliary tree: No calcified gallstones. Normal caliber wall. No intra- or extrahepatic biliary ductal dilation. Pancreas: Unremarkable, no focal lesions. Spleen: Unremarkable. Adrenals: Bilateral adrenal thickening is unchanged. Kidneys and ureters: Multiple renal cysts are again seen, some with calcific components. Calcific com ponents in a medial right renal cysts is new from prior exam. Bladder: Unremarkable. Reproductive organs: Unremarkable. Bowel: Unremarkable appearance of the bowel. The appendix is normal. Lymph nodes Retroperitoneal: Unremarkable. Mesenteric: Unremarkable. Pelvic: Unremarkable. Peritoneum: There is moderate ascites. A peritoneal drain is seen with its tip coiled in the pelvis. Vessels: Atherosclerotic calcifications are seen. Abdominal wall: Unremarkable. Bones: Unremarkable. IMPRESSION: 1. No evidence of hydronephrosis. Multiple cysts are again seen with some calcifications which have developed from the prior exam. 2. Moderate ascites. Peritoneal drain is in place. ACT 112: Negative or not required by law. Electronically signed by: Arthur Taylor M.D. 06/30/2021 9:44 AM
--- NOTE | 2021-06-30 09:53 | CT Scan Report ---
CT OF THE CHEST WITHOUT IV CONTRAST CLINICAL HISTORY: Cough. Fall. COMPARISON STUDY: Chest CT February 03, 2019. Chest radiograph performed earlier today. TECHNIQUE: Axial images of the chest were obtained without IV contrast. Images were reviewed in the axial, sagittal, and coronal planes. IV contrast was not administered for this examination. Automat ed exposure control was utilized for the study. A dose lowering technique was utilized adhering to t he principles of ALARA. FINDINGS: Moderate cardiomegaly is noted. There is no pericardial effusion. A enlarged right paratra cheal lymph node on axial image 106 of 301 measures 2.3 x 1.9 cm. Mildly enlarged right hilar lymph n ode is present. There is no pneumothorax. A small right pleural effusion is noted. Lungs are suboptim ally assessed due to respiratory motion. There is severe upper lobe predominant emphysema. Multifocal airspace opacities throughout the lungs are noted, most pronounced within the right middle and right lower lobes. Note is made of confluent airspace opacity within the right middle lobe or anterior seg ment of the right upper lobe. This likely has associated fissural fluid. Apparent locules of gas with in this opacity likely reflect emphysematous lung although cavitation could appear similar. Additiona l nodular airspace opacities within the upper lobes are likely infectious. No acute fractures identif ied within visualized skeletal structures. Numerous cysts within visualized portions of the kidneys a re noted. There is upper abdominal ascites. The abdomen and pelvis will be reported separately. Thora cic aorta is suboptimally assessed on this unenhanced exam but no evidence for traumatic injury. Mild dilatation of the ascending aorta, measuring 4.2 cm, is noted. IMPRESSION: 1. No acute traumatic findings within the chest on unenhanced exam. 2. Multiple foci of consolidation within the lungs suggestive of multifocal pneumonia. Confluent airs pace opacity within the right middle lobe or anterior segment of the right upper lobe has associated fissural fluid and apparent locules of gas. This gas likely reflects emphysematous lung outlined by p leural fluid/consolidation. However, cavitation could appear similar. Additional airspace opacities a re also likely infectious however are indeterminate. A follow-up chest CT in 2 months to ensure resol ution is recommended to exclude the less likely possibility of a neoplastic process. 3. Mildly enlarged mediastinal and right hilar lymph nodes. These are likely reactive but can be asse ssed on follow-up CT. 4. Emphysema. 5. Small right pleural effusion. ACT 112: Negative or not required by law. Electronically signed by: Yunior Arroyo M.D. 06/30/2021 9:52 AM
[2021-06-30 10:04] LABS: Base Excess VBG -2.2 mEq/L; Oxygen Saturation VBG 73.1 %; pH VBG 7.39 (7.36-7.41)
--- NOTE | 2021-06-30 10:09 | History & Physical Report ---
Date of Service June 30, 2021 Assessment & Plan (1) Sepsis: Plan: Lactate 1.3, avoiding aggressive fluid resuscitation given ESRD on dialysis Empiric antibiotics with vancomycin and Zosyn. Will add azithromycin given source suspected to be pneumonia. No abdominal pain to suggest SBP Follow up blood, urine and sputum cultures SARS-COV-2, RSV and influenza negative (2) Multifocal pneumonia: Plan: MRSA nose swab - if negative can discontinue vancomycin Continue Zosyn and azithromycin Incentive spirometry (3) Acute respiratory failure with hypoxia: Plan: Secondary to pneumonia as above. Aim O2 sats > 90% (4) COPD (chronic obstructive pulmonary disease): Plan: Continue Stiolto respimat or hospital formulary equivalent Does note appear to be in acute exacerbation therefore no need for routine nebulizers or steroids at this time (5) HTN (hypertension): Plan: Hold metoprolol in setting of relative hypotension (6) End-stage renal disease on peritoneal dialysis: Plan: Consult nephrology for dialysis management. Continue sevelamer Plan: VTE Prophylaxis - heparin 5000 units SQ BID Diet - Dialysis renal Disposition - admit to PCU Admission and Anticipated Discharge Date Admission Date: May 30, 2021 History of Present Illness Chief Complaint: Generalized illness, fall Primary Care Provider: Tj Avalos MD Sisi Redmond is a 70 year old male iwth ESRD on peritoneal dialysis who presents to the ER after a fall this morning and generalized illness. He reports first feeling unwell on (4 days ago) with a fever. Reportedly he was feeling better the next day just with taking Tylenol. However on Wednesday started having fevers again therefore took an influenza and COVID-19 test at [facility] with was subsequently negative. He slowly became more short of breath with pleuritic right anterior chest pain. he became increasingly weak in both legs and fell yesterday and today. Today he was so weak he was unable to lift himself back up therefore his daughter advised calling 911. He did not take any of his medications this morning. He has end stage renal disease on peritoneal dialysis with Dr Romo. He also has COPD with FEV1/FVC 56%. He denies any abdominal pain, change in bowels. In the ER he is currently requiring 4LPM O2 via nasal cannula. He was referred to medicine for admission and ongoing management of pneumonia and hypoxia. Allergies Allergy/AdvReac Type Severity Reaction Status Date / Time lisinopril Allergy Mild COUGH Verified 06/30/21 09:32 Home Medications Medication Instructions Recorded Confirmed Type sevelamer carbonate 800 mg tablet 2,400 mg PO TIDM 04/19/19 06/30/21 History (Renvela) nebulizer accessories #1 ea 10/30/19 11/27/20 Rx cetirizine 10 mg tablet 10 mg PO QAM 07/26/20 06/30/21 History albuterol sulfate 90 mcg/actuation 1 inh INH Q6H PRN #18 gm 02/18/21 06/30/21 Rx aerosol inhaler (ProAir HFA) ipratropium 0.5 mg-albuterol 3 mg 3 ml INH QAM #180 ml 02/18/21 06/30/21 Rx (2.5 mg base)/3 mL nebulization soln tiotropium 2.5 mcg-olodaterol 2.5 2 puff INH QAM #4 g 02/18/21 06/30/21 Rx mcg/actuation mist for inhalation (Stiolto Respimat) calcitriol 0.5 mcg capsule 1.5 mcg PO UD 06/30/21 06/30/21 History gabapentin 100 mg capsule 100 mg PO HS 06/30/21 06/30/21 History guaifenesin 600 mg tablet, 600 mg PO BID 06/30/21 06/30/21 History extended release 12 hr (Mucinex) metoprolol succinate 50 mg 25 mg PO DAILY 06/30/21 06/30/21 History tablet,extended release 24 hr polyethylene glycol 3350 17 17 g PO BID 06/30/21 06/30/21 History gram/dose oral powder (Miralax) Past Med/Surg History Medical History (Updated 07/01/21 @ 08:09 by Catrachito Klein MD) Alzheimer disease Anemia Benign neoplasm of skin of nose Benign prostate hyperplasia CCPD (continuous cycling peritoneal dialysis) status port in place left abdomen--dialysis daily at home Chronic kidney disease, stage 5 Chronic obstructive pulmonary disease inhaler/nebulizer daily Gout Hemorrhoids Hypertension Intracranial hemorrhage 2012 [place] Low back pain On home oxygen therapy 2L N/C at hs Polycystic kidney disease, adult type (09/03/12) Rotator cuff sprain Secondary hyperparathyroidism (of renal origin) Tremor of both hands Surgical History History of cerebral aneurysm repair 2012 [facility] [place]--clips/coils in place History of colonoscopy History of tooth extraction all teeth Family History Other No family history of adverse response to anesthesia Denies family history of Myocardial infarction Social History Smoking Status: Former smoker Cigarettes Per Day: 10; Second Hand Exposure: Yes (granddaughter smokes); Hx Alcohol Use: No Hx Substance Use: No Preferred Language: Japanese Communication Ability: Effective Shactor Required: No Beliefs That Will Affect Care: None marital status: Unknown Current Living Situation: Family Current Living Situation Comment: Lives with granddaughter Feels Safe at Home: Yes Safety Concerns: Feels Safe At This Time Assistive Devices: Oxygen - Continuous Review of Systems Review of Systems: All systems reviewed & are unremarkable except as noted in HPI & below Physical Exam Constitutional: WD/WN, vitals as above Neck: trachea midline, no thyromegaly Respiratory: Auscultation: + rhonchi (bilaterally throughout); no wheezes Cardiovascular: Rate/Rhythm: regular rhythm and + tachycardic Heart Sounds: no murmur Extremities: normal capillary refill; no calf tenderness and no pedal edema Gastrointestinal (Abdomen): Inspection/Auscultation: abdomen normal to inspection (peritoneal catheter in place without surrounding erythema) and normal bowel sounds Percussion/Palpation: + abdomen tender (mild right sided) and abdomen soft; no guarding and abdomen not rigid Musculoskeletal: no cyanosis or clubbing, extremities motor strength 5/5 Skin: no rashes, warm and dry Neurologic: moves all extremities and awake; no focal motor deficits (no lateralizing deficit) and not confused Psychiatric: A+Ox3, euthymic affect Results & Data Results & Data ([facility]) Vital Signs (Past 12 Hours) Vital Signs Temp Pulse Resp BP Pulse Ox 06/30/21 08:45 19 89 L 06/30/21 08:35 88 L 06/30/21 08:30 83 L 06/30/21 08:15 37.8 C H 107 H 23 113/61 83 L Laboratory Results Abnormal lab results 06/30/21 06/30/21 06/30/21 Range/Units 08:20 08:20 08:20 WBC 23.34 H (4.8-10.8) K/uL RBC 3.35 L (4.7-6.1) M/uL Hgb 10.3 L (14.0-18.0) g/dL Hct 30.6 L (42-52) % RDW Std Deviation 53.7 H (36.4-46.3) fL RDW Coeff of Giovana 16.0 H (11.5-14.5) % Neut # (Auto) 19.74 H (1.4-6.5) K/uL [place] # (Auto) 1.59 H (0.11-0.59) K/uL Eos # (Auto) 0.53 H (0-0.5) K/uL Immature Gran # (Auto) 0.24 H (0.00-0.02) K/uL ESR 109 H (0-20) mm/hr Sodium 132 L (136-145) mmol/L Chloride 96 L (98-107) mmol/L Anion Gap 12.0 H (3-11) BUN 88 H (7-18) mg/dl Creatinine 8.85 H* (0.6-1.4) mg/dl BUN/Creatinine Ratio 9.8 L (10-20) Glucose 117 H (70-99) mg/dl Alkaline Phosphatase 120 H (45-117) U/L C-Reactive Protein 44.00 H (0-0.29) mg/dl Albumin 1.8 L (3.4-5.0) gm/dl Globulin 4.6 H (2.5-4.0) gm/dl Albumin/Globulin Ratio 0.4 L (0.9-2) Procalcitonin (0-0.5) ng/ml 06/30/21 Range/Units 08:20 WBC (4.8-10.8) K/uL RBC (4.7-6.1) M/uL Hgb (14.0-18.0) g/dL Hct (42-52) % RDW Std Deviation (36.4-46.3) fL RDW Coeff of Giovana (11.5-14.5) % Neut # (Auto) (1.4-6.5) K/uL [place] # (Auto) (0.11-0.59) K/uL Eos # (Auto) (0-0.5) K/uL Immature Gran # (Auto) (0.00-0.02) K/uL ESR (0-20) mm/hr Sodium (136-145) mmol/L Chloride (98-107) mmol/L Anion Gap (3-11) BUN (7-18) mg/dl Creatinine (0.6-1.4) mg/dl BUN/Creatinine Ratio (10-20) Glucose (70-99) mg/dl Alkaline Phosphatase (45-117) U/L C-Reactive Protein (0-0.29) mg/dl Albumin (3.4-5.0) gm/dl Globulin (2.5-4.0) gm/dl Albumin/Globulin Ratio (0.9-2) Procalcitonin 20.61 H (0-0.5) ng/ml Diagnostic Findings CT head/brain wo con CLINICAL HISTORY: fall Technique: Contiguous axial CT images of the head were acquired from the base of the skull to the vertex without intravenous contrast administration. Images were viewed in brain, subdural and bone windows. Automated dose lowering techniques and/or adjustment according to patient size were utilized for this exam. Comparison: Comparison is made to CT head 10/01/2019 Findings: The ventricles, basal cisterns, and cerebral sulci are normal. There is no acute intracranial hemorrhage or evidence of acute territorial infarction. Neither mass effect, shift of the midline structures, nor abnormal extra-axial fluid collections are shown. Encephalomalacia in the left periorbital frontal lobe is unchanged. Postsurgical changes are noted in the left frontal lobe, unchanged. Imaged portions of the paranasal sinuses and mastoid air cells are clear. The orbits appear normal. There are no acute fractures of the calvaria or scalp swelling. Impression: No acute intracranial hemorrhage, skull fractures, or scalp swelling. CT OF THE CERVICAL SPINE WITHOUT CONTRAST CLINICAL HISTORY: Fall. COMPARISON STUDY: Cervical spine CT September 03, 2012. TECHNIQUE: Helical axial images of the cervical spine were obtained without IV contrast. Sagittal and coronal reconstructions were viewed. Automated exposure control was utilized for the study. A dose lowering technique was utilized adhering to the principles of ALARA. FINDINGS: Alignment of the cervical spine is anatomic. Vertebral body heights are maintained. No acute cervical spine fracture or subluxation is present. There is no prevertebral edema. Facet joints are intact. Note is made of severe multilevel facet arthrosis. There is moderate multilevel disc space narrowing and osteophytosis within the cervical spine. Emphysema and suspected biapical scarring within the lung apices is partially imaged on this examination. The chest CT will be reported separately. IMPRESSION: No acute cervical spine fracture or subluxation. XR chest 1V portable HISTORY: 70 years-old Male SEPSIS sepsis. Acute chest trauma status post fall COMPARISON: Chest radiograph 10/01/2019 TECHNIQUE: Portable AP view of the chest FINDINGS: Cardiac silhouette is upper limits of normal in size. Atherosclerosis of the aorta. No pneumothorax or large pleural effusion. Bilateral ill-defined interstitial opacities are similar to prior. There are patchy bilateral airspace densities, most pronounced within the right perihilar distribution and right lung base. Degenerative changes of the shoulders and spine. IMPRESSION: Right infrahilar and right basilar predominant airspace opacities are suggestive of multifocal pneumonia. CT OF THE CHEST WITHOUT IV CONTRAST CLINICAL HISTORY: Cough. Fall. COMPARISON STUDY: Chest CT February 03, 2019. Chest radiograph performed earlier today. TECHNIQUE: Axial images of the chest were obtained without IV contrast. Images were reviewed in the axial, sagittal, and coronal planes. IV contrast was not administered for this examination. Automated exposure control was utilized for the study. A dose lowering technique was utilized adhering to the principles of ALARA. FINDINGS: Moderate cardiomegaly is noted. There is no pericardial effusion. A enlarged right paratracheal lymph node on axial image 106 of 301 measures 2.3 x 1.9 cm. Mildly enlarged right hilar lymph node is present. There is no pneumothorax. A small right pleural effusion is noted. Lungs are suboptimally assessed due to respiratory motion. There is severe upper lobe predominant emphysema. Multifocal airspace opacities throughout the lungs are noted, most pronounced within the right middle and right lower lobes. Note is made of confluent airspace opacity within the right middle lobe or anterior segment of the right upper lobe. This likely has associated fissural fluid. Apparent locules of gas within this opacity likely reflect emphysematous lung although cavitation could appear similar. Additional nodular airspace opacities within the upper lobes are likely infectious. No acute fractures identified within visualized skeletal structures. Numerous cysts within visualized portions of the kidneys are noted. There is upper abdominal ascites. The abdomen and pelvis will be reported separately. Thoracic aorta is suboptimally assessed on this unenhanced exam but no evidence for traumatic injury. Mild dilatation of the ascending aorta, measuring 4.2 cm, is noted. IMPRESSION: 1. No acute traumatic findings within the chest on unenhanced exam. 2. Multiple foci of consolidation within the lungs suggestive of multifocal pneumonia. Confluent airspace opacity within the right middle lobe or anterior segment of the right upper lobe has associated fissural fluid and apparent locules of gas. This gas likely reflects emphysematous lung outlined by pleural fluid/consolidation. However, cavitation could appear similar. Additional airspace opacities are also likely infectious however are indeterminate. A follow-up chest CT in 2 months to ensure resolution is recommended to exclude the less likely possibility of a neoplastic process. 3. Mildly enlarged mediastinal and right hilar lymph nodes. These are likely reactive but can be assessed on follow-up CT. 4. Emphysema. 5. Small right pleural effusion. CT abd pelvis wo con CLINICAL HISTORY: right flank pain TECHNIQUE: Helical axial images of the abdomen and pelvis were obtained. Automated dose lowering techniques and/or adjustment according to patient size were utilized for this exam. This exam was performed without intravenous contrast. COMPARISON: Comparison is made to CT abdomen pelvis 02/03/2019 FINDINGS: Lower chest: For findings above the diaphragm, please see CT chest performed same day. Liver: Unremarkable. No focal lesions are seen. Gallbladder and biliary tree: No calcified gallstones. Normal caliber wall. No intra- or extrahepatic biliary ductal dilation. Pancreas: Unremarkable, no focal lesions. Spleen: Unremarkable. Adrenals: Bilateral adrenal thickening is unchanged. Kidneys and ureters: Multiple renal cysts are again seen, some with calcific components. Calcific components in a medial right renal cysts is new from prior exam. Bladder: Unremarkable. Reproductive organs: Unremarkable. Bowel: Unremarkable appearance of the bowel. The appendix is normal. Lymph nodes Retroperitoneal: Unremarkable. Mesenteric: Unremarkable. Pelvic: Unremarkable. Peritoneum: There is moderate ascites. A peritoneal drain is seen with its tip coiled in the pelvis. Vessels: Atherosclerotic calcifications are seen. Abdominal wall: Unremarkable. Bones: Unremarkable. IMPRESSION: 1. No evidence of hydronephrosis. Multiple cysts are again seen with some calcifications which have developed from the prior exam. 2. Moderate ascites. Peritoneal drain is in place. Medications Administered ER Medications Given: Zosyn 4.5g IV NSS 500ml bolus Morphine 4mg IV Ondansetron 4mg IV Vancomycin 1500mg IV ECG Indication: tachycardia Rate (beats per minute): 108 Findings: + PAC Comparison ECG Date: from (October 01, 2019) Change: the following changes noted (PACs now present) Code Status & VTE Plan Code Status Full VTE Prophylaxis Plan VTE Prophylaxis will be ordered: Yes PG Care Time/CCT Total # of Minutes Spent Total Time Spent with Patient: Total time spent is greater than 50% in coordination of care (as documented) at patient's floor/unit and/or counseling patient: Coding Level of Care Code 38909 Initial Inpt Care Lvl 3 Diagnoses Sepsis A41.9 Multifocal pneumonia J18.9 HTN (hypertension) I10 Hypertension type: unspecified COPD (chronic obstructive pulmonary disease) J44.9 COPD type: unspecified COPD End-stage renal disease on peritoneal dialysis N18.6; Z99.2 Acute respiratory failure with hypoxia J96.01 (1) COPD (chronic obstructive pulmonary disease) COPD type: unspecified COPD Qualified Code(s): J44.9 - Chronic obstructive pulmonary disease, unspecified (2) HTN (hypertension) Hypertension type: unspecified Qualified Code(s): I10 - Essential (primary) hypertension
[2021-06-30 10:18] LABS: Potassium 3.5 mmol/L (3.5-5.1)
[2021-06-30] MEDS ORDERED: SODIUM CHLORIDE 0.9% 1000ML 500 ML IV ONE (10:27)
--- NOTE | 2021-06-30 10:35 | Nephrology Consultation ---
Date of Consultation June 30, 2021 Assessment & Plan (1) End-stage renal disease on peritoneal dialysis: (2) HTN (hypertension): (3) PNA (pneumonia): Sisi Redmond 70-year-old gentlemen with ESRD secondary to polycystic kidney disease, on CCPD. Dialysis has been has regular. His residual renal function has been decreasing lately and as a result BUN creatinine has been staying high. Admitted to the hospital with fall with no fracture, right sided multifocal pneumonia and currently on empiric antibiotic. -- discussed with dialysis nurse, will drain the dwell which has been there from last night and change the transfer set as there has been concern for breech in sterile technique after a fall last night. Will schedule for dialysis tonight with his home prescription with 5 exchanges, 3 liter dwell volume, feels time 20 minutes and drain time 25 minutes. Will use delflex 1.5% --continue on renal diet, dose medications for GFR less than 10 --continue phosphate binder meal --Empiric antibiotic Will follow Thank you for allowing me to participate in your patient's care. It was a pleasure to see Sisi History of Present Illness Reason for Consultation: End-stage renal disease on peritoneal dialysis, admitted with pneumonia. History of Present Illness Sisi Redmond is a 70-year-old gentlemen with ESRD on PD, hypertension, polycystic kidney disease admitted to the hospital with pneumonia and fall at home. Nephrology consult was requested to manage peritoneal dialysis while inpatient. EMR records including labs and imaging are reviewed in detail during patient's visit, daughter and granddaughter was at bedside. Sisi presented to the hospital with 3-4 days history low-grade fever, cough, rigor, generalized weakness, shaking and tremor off and on. He also had several episodes of vomiting on and Wednesday. Symptoms started last but by Wednesday he was feeling better. he reports having normal p.o. intake. Did not have any significant cough or shortness of breath. However, last night around midnight he had a fall in his bathroom in EMS was called. His oxygen saturation was found to be in 70s. He also has been having some right-sided chest pain specially with cough. Did not have lower extremity swelling. He was placed on nasal cannula oxygen and oxygen saturation on arrival to ER was 83. CT head neck was negative for fracture. CT chest abdomen pelvis showed right-sided multifocal pneumonia, mildly enlarged mediastinal lymph node and some new calcification in cyst in right kidney since prior i maging. COVID test was negative. His still febrile with temperature of 37.8. Started on empiric antibiotic with Zosyn and Levaquin. Has ESRD secondary to polycystic kidney disease, has been on peritoneal dialysis for last almost 4 years. He is also active on transplant list at [facility]. He dialysis via cycler with 5 exchanges per night, 3 L dwell volume, dwell time [id number], fill time 20 min and drain time 25 min. Still makes some urine. He did have dialysis last night but his last dwell was still in while and he came to the hospital. PD effluent has been clear, denies abdomi nal pain. Denies constipation. Blood pressure and volume status has been acceptable. He is still febrile and feels shaky. also feels thirsty. Allergies Allergy/AdvReac Type Severity Reaction Status Date / Time lisinopril Allergy Mild COUGH Verified 06/30/21 09:32 Home Medications Medication Instructions Recorded Confirmed Type sevelamer carbonate 800 mg tablet 2,400 mg PO TIDM 04/19/19 06/30/21 History (Renvela) nebulizer accessories #1 ea 10/30/19 11/27/20 Rx cetirizine 10 mg tablet 10 mg PO QAM 07/26/20 06/30/21 History albuterol sulfate 90 mcg/actuation 1 inh INH Q6H PRN #18 gm 02/18/21 06/30/21 Rx aerosol inhaler (ProAir HFA) ipratropium 0.5 mg-albuterol 3 mg 3 ml INH QAM #180 ml 02/18/21 06/30/21 Rx (2.5 mg base)/3 mL nebulization soln tiotropium 2.5 mcg-olodaterol 2.5 2 puff INH QAM #4 g 02/18/21 06/30/21 Rx mcg/actuation mist for inhalation (Stiolto Respimat) calcitriol 0.5 mcg capsule 1.5 mcg PO UD 06/30/21 06/30/21 History gabapentin 100 mg capsule 100 mg PO HS 06/30/21 06/30/21 History guaifenesin 600 mg tablet, 600 mg PO BID 06/30/21 06/30/21 History extended release 12 hr (Mucinex) metoprolol succinate 50 mg 25 mg PO DAILY 06/30/21 06/30/21 History tablet,extended release 24 hr polyethylene glycol 3350 17 17 g PO BID 06/30/21 06/30/21 History gram/dose oral powder (Miralax) Patient History Medical History (Updated 06/30/21 @ 10:16 by Catrachito Klein MD) Alzheimer disease Anemia Benign neoplasm of skin of nose Benign prostate hyperplasia CCPD (continuous cycling peritoneal dialysis) status port in place left abdomen--dialysis daily at home Chronic kidney disease, stage 5 Chronic obstructive pulmonary disease inhaler/nebulizer daily Gout Hemorrhoids Hypertension Intracranial hemorrhage 2012 [place] Low back pain On home oxygen therapy 2L N/C at hs Polycystic kidney disease, adult type (09/03/12) Rotator cuff sprain Secondary hyperparathyroidism (of renal origin) Tremor of both hands Surgical History History of cerebral aneurysm repair 2012 [facility] [place]--clips/coils in place History of colonoscopy History of tooth extraction all teeth Family History Other No family history of adverse response to anesthesia Denies family history of Myocardial infarction Social History Smoking Status: Former smoker Cigarettes Per Day: 10; Second Hand Exposure: Yes (granddaughter smokes); Hx Alcohol Use: No Hx Substance Use: Yes Last Used Substance: Hours (ago) Preferred Language: Azeri Communication Ability: Effective Business Ethics Professor Required: No Beliefs That Will Affect Care: None marital status: Unknown Current Living Situation: Family Current Living Situation Comment: Lives with granddaughter Feels Safe at Home: Yes Assistive Devices: Denture - Upper, Denture - Lower, Glasses and Oxygen - at Night Review of Systems Review of Systems: detailed review of system was done and pertinent positives and negatives were mentioned above. Physical Exam Constitutional: WD/WN, vitals as above + ill appearing; no acute distress Eyes: + anicteric sclerae ENMT: Ears: no hearing impairment and no external ear abnormality Nose: nasal mucous membranes not dry Mouth: + dry oral mucous membranes Neck: normal visual inspection Thyroid: no thyromegaly Respiratory: normal respiratory effort and + cough; no respiratory distress Auscultation: + crackles ( At right base and mid lung field) Cardiovascular: Rate/Rhythm: regular rate and regular rhythm Heart Sounds: normal S1 and normal S2 Extremities: no edema Gastrointestinal (Abdomen): Inspection/Auscultation: abdomen normal to inspection and normal bowel sounds Percussion/Palpation: abdomen soft; abdomen nontender Musculoskeletal: Extremities: extremities normal to inspection Skin: normal turgor; no rashes Neurologic: no focal motor deficits and not confused Psychiatric: Orientation: alert and oriented x 3 Affect: euthymic affect Results & Data ([facility]) Vital Signs (Past 12 Hours) Vital Signs Temp Pulse Resp BP Pulse Ox 06/30/21 08:45 19 89 L 06/30/21 08:35 88 L 06/30/21 08:30 83 L 06/30/21 08:15 37.8 C H 107 H 23 113/61 83 L PG Care Time/CCT Total # of Minutes Spent Total Time Spent with Patient: Total time spent is greater than 50% in coordination of care (as documented) at patient's floor/unit and/or counseling patient: Coding Level of Care Code 03620 Inpt Consult Level 5 Diagnoses End-stage renal disease on peritoneal dialysis N18.6; Z99.2 HTN (hypertension) I10 Hypertension type: unspecified PNA (pneumonia) J18.1 Laterality: right Lung location: middle lobe of lung Pneumonia type: due to unspecified organism (1) HTN (hypertension) Hypertension type: unspecified Qualified Code(s): I10 - Essential (primary) hypertension (2) PNA (pneumonia) Laterality: right Lung location: middle lobe of lung Pneumonia type: due to unspecified organism Qualified Code(s): J18.1 - Lobar pneumonia, unspecified organism
[2021-06-30] MEDS ORDERED: AZITHROMYCIN 500 MG in DEXTROSE 5% 250 ML IV STA (11:23)
[2021-06-30 11:55] LABS: Influenza A virus by PCR Negative (Neg); Influenza B virus by PCR Negative (Neg); RSV by PCR Negative (Neg); SARS CoV2 RNA(COVID-19) InHosp NEGATIVE (Negative)
--- NOTE | 2021-06-30 11:59 | Electrocardiogram Report ---
Test Reason : Blood Pressure : / mmHG Vent. Rate : 108 BPM Atrial Rate : 108 BPM P-R Int : 190 ms QRS Dur : 124 ms QT Int : 350 ms P-R-T Axes : 033 031 065 degrees QTc Int : 469 ms Sinus tachycardia with Premature atrial complexes Non-specific intra-ventricular conduction delay Nonspecific T wave abnormality Anterolateral leads Abnormal ECG When compared with ECG of 01-OCT-2019 13:13, Premature atrial complexes are now Present Vent. rate has increased BY 46 BPM Confirmed by Serjio Overton ([id number]) on 06/30/2021 11:59:17 AM Referred By: REFERRED SELF Confirmed By:Serjio Overton
[2021-06-30] MEDS ORDERED: ONDANSETRON INJ 2 MG/ML 2 ML VIAL IV PRN (12:55)
[2021-06-30] MEDS ORDERED: POLYETHYLENE (MIRALAX) 17 GM PACK PO PRN (12:55)
[2021-06-30 14:15] LABS: Appearance Urine Clear (Clear); Bilirubin Urine Negative (Negative); Blood Urine Negative (Negative); Cast Urine Automated 0 /lpf (0-5); Color Urine Yellow; Glucose Urine UA Negative (Negative); Ketones Urine Trace (Negative); Leukocyte Esterase Urine Trace (Negative); Nitrite Urine Negative (Negative); Protein Urine 1+ (Negative); RBC Urine Automated 0-4 /hpf (0-4); Specific Gravity Urine 1.018 (1.000-1.030); Urobilinogen Urine Negative (Negative)
[2021-06-30 14:31] LABS: Bacteria Urine Automated 1+ (Negative)
[2021-06-30] MEDS: CETIRIZINE HCL 10 MG TABLET PO SCH (14:59)
[2021-06-30] MEDS: guaiFENesin 600 MG TABCR PO SCH ×2 (15:00→21:32)
[2021-06-30] MEDS: ALBUT/IPRATROP 3MG/0.5MG NEB 3 ML VIAL INH SCH (15:01)
[2021-06-30] MEDS: CALCITRIOL 0.25 MCG CAPSULE PO SCH (16:20)
[2021-06-30] MEDS: SEVELAMER HCL 800 MG TABLET PO SCH (16:24)
[2021-06-30] MEDS: PIPERACILLIN/TAZOBACTAM 3.375 GM in DEXTROSE 5% 100 ML IV SCH (20:00)
[2021-06-30] MEDS: GABAPENTIN 100 MG CAP PO SCH (21:32)
[2021-06-30] MEDS: HEPARIN SOD 5,000 UNIT/0.5 ML VIAL SQ SCH (21:32)
[2021-06-30] MEDS: POLYETHYLENE (MIRALAX) 17 GM PACK PO SCH (21:32)
[2021-07-01 05:02] LABS: Basophils # (auto) 0.02 K/uL (0-0.2); Basophils % (auto) 0.1 %; Eosinophils # (auto) 0.38 K/uL (0-0.5); Eosinophils % (auto) 2.1 %; Hematocrit (blood only) 29.4 % (42-52); Hemoglobin 9.6 g/dL (14.0-18.0); Immature Granulocytes # (auto) 0.35 K/uL (0.00-0.02); Immature Granulocytes % (auto) 1.9 %; Lymphocytes # (auto) 1.07 K/uL (1.2-3.4); Lymphocytes % (auto) 5.9 %; Mean Corpuscular Hgb Conc 32.7 g/dL (32-36); Mean Corpuscular Volume 91.9 fL (80-100); Mean Platelet Volume 9.9 fL (7.4-10.4); Neutrophils # (auto) 15.36 K/uL (1.4-6.5); Platelet Count 282 K/uL (130-400); RDW Coefficient of Variation 15.8 % (11.5-14.5); RDW Standard Deviation 53.7 fL (36.4-46.3); White Blood Count 18.28 K/uL (4.8-10.8)
[2021-07-01] MEDS: ACETAMINOPHEN 325 MG TAB PO PRN ×2 (05:03→20:29)
[2021-07-01 05:34] LABS: BUN Creatinine Ratio 9.5 (10-20); Calcium 9.4 mg/dl (8.5-10.1); Creatinine Clr Calc Pharmacy 8.3 ml/min; Est GFR (African American) 6.3 ml/min; Est GFR (Non-African American) 5.4 ml/min; Potassium 3.5 mmol/L (3.5-5.1)
[2021-07-01] MEDS: ALBUT/IPRATROP 3MG/0.5MG NEB 3 ML VIAL INH SCH ×4 (07:41→20:00)
[2021-07-01] MEDS: POLYETHYLENE (MIRALAX) 17 GM PACK PO SCH ×3 (09:07→20:12)
[2021-07-01] MEDS: PIPERACILLIN/TAZOBACTAM 3.375 GM in DEXTROSE 5% 100 ML IV SCH (09:07)
[2021-07-01] MEDS: HEPARIN SOD 5,000 UNIT/0.5 ML VIAL SQ SCH ×2 (09:08→20:12)
[2021-07-01] MEDS: UMECLIDINIUM/VILANTEROL 62.5/25MCG 7 PUFFS/INHALER INH SCH (09:08)
[2021-07-01] MEDS: AZITHROMYCIN 250 MG TAB PO SCH (09:09)
[2021-07-01] MEDS: SEVELAMER HCL 800 MG TABLET PO SCH ×3 (09:09→17:54)
[2021-07-01] MEDS: CETIRIZINE HCL 10 MG TABLET PO SCH (09:09)
[2021-07-01] MEDS: guaiFENesin 600 MG TABCR PO SCH ×2 (09:09→20:12)
--- NOTE | 2021-07-01 11:09 | Hospitalist Progress Note ---
Date of Service July 01, 2021 Assessment & Plan (1) Sepsis: Plan: 2nd to #2. Follow blood and sputum cultures. Treat pneumonia with zosyn and azithromycin. Watch QTc carefully with latter antibiotic in light of ESRD. COVID, RSV, flu testing negative. (2) Multifocal pneumonia: Plan: Continue Zosyn and azithromycin. MRSA swab neg - stop vanco. RUL, RML, and MAURICE on CT. COVID/RSV/Flu negative. Cont supportive care. Follow cultures. (3) Acute respiratory failure with hypoxia: Plan: Secondary to pneumonia. Cont NC O2 or oxymask. Sats in low 90s given his COPD are acceptable. Schedule nebs qid to help with bronchospasm from COPD. (4) COPD (chronic obstructive pulmonary disease): Plan: Make nebs qid scheduled. Flutter valve. Incentive mark. Mucinex BID. Cont home inhalers. Not much in the way of wheeze/rhonchi this am; thus, defer on systemic IV ster oids. (5) HTN (hypertension): Plan: Cont to hold metoprolol in setting of sepsis BPs this am acceptable (6) End-stage renal disease on peritoneal dialysis: Plan: Appreciate [facility] for peritoneal dialysis management. Continue sevelamer. (7) Fall: Plan: 2nd to weakness in setting of sepsis/pneumonia. will need PT/OT when able. (8) Chest pain: Plan: he struck his chest when he fell at home in the bathroom. he also is having a component of pleuritic pain on the right c/w the location of his pneumonia. treat the pain as needed. pain is noncardiac. CT chest did not show bony injury/rib fractures. 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 again - suspect it is chronic. acute illness will make the tremor worse. No Rx. Treat the pneumonia. (11) DVT prophylaxis: Plan: heparin 5000 BID (12) Metabolic encephalopathy: Plan: vs baseline cognitive impairment?? supportive care, follow Plan: updated pt's daughter, Jenny, by phone repeat labs am Admission and Anticipated Discharge Date Admission Date: June 30, 2021 Subjective tele stable overnight patient reports cough and mild dyspnea has right-sided chest pain, pleuritic he did strike the right side of his chest when he fell at home yesterday did not hit head he states his "arms and legs are weak - especially his arms/hands" "I had to be fed this morning because of my hands" blames his weakness on his tremor, which he states has been present "only a few days" denies L sided chest pain prior to admission he was actively smoking at home declined nicoderm patch appetite fair no recent sick contacts no travel Review of Systems Review of Systems: gen - no fevers this am; ? chills vs tremors cv - chest pain, right sided pulm - cough, dyspnea; no hemoptysis GI - no abd pain or nausea or vomiting Physical Exam Physical Exam: gen - looks chronically unwell, frail, no distress, mild confusion HENT - MMM neck - no JVD heart - RRR, s1 s2 lungs - decreased BS right base, rales right base, clear on left, no wheeze abd - soft but protuberant (PD fluid), PD catheter c/d/i; NT, BS+ ext - pulses 1-2+ b/l, no edema psych - modestly confused neuro - tremors arms, but able to move all 4 limbs - no proximal or distal strength issues musculo - right shoulder - tender with active flexion/extension - chronic per patient Results & Data Results & Data ([facility]) Vital Signs (Past 12 Hours) Vital Signs Temp Pulse Pulse Resp BP BP Pulse Ox 07/01/21 10:40 90 20 98 07/01/21 08:44 36.6 C 90 24 07/01/21 08:13 36.6 C 90 24 114/63 92 07/01/21 07:44 91 H 20 89 L 07/01/21 03:30 84 15 94 07/01/21 03:00 84 14 91/53 L 92 07/01/21 01:34 37 C 07/01/21 00:45 80 07/01/21 00:30 89 24 93 07/01/21 00:00 91 H 15 103/57 L 91 06/30/21 23:30 89 16 90 Laboratory Results Laboratory Results - last 24 hr 06/30/21 06/30/21 06/30/21 09:30 13:45 19:45 WBC RBC Hgb Hct MCV MCH MCHC RDW Std Deviation RDW Coeff of Giovana Plt Count MPV Immature Gran % (Auto) Neut % (Auto) Lymph % (Auto) [place] % (Auto) Eos % (Auto) Baso % (Auto) Neut # (Auto) Lymph # (Auto) [place] # (Auto) Eos # (Auto) Baso # (Auto) Immature Gran # (Auto) Sodium Potassium Chloride Carbon Dioxide Anion Gap BUN Creatinine Est Cr Clr Drug Dosing Est GFR ( Amer) Est GFR (Non-Af Amer) BUN/Creatinine Ratio Glucose Calcium Urine Color Yellow Urine Appearance Clear Urine pH 5.0 Ur Specific [place] 1.018 Urine Protein 1+ H Urine Glucose (UA) Negative Urine Ketones Trace H Urine Blood Negative Urine Nitrite Negative Urine Bilirubin Negative Urine Urobilinogen Negative Ur Leukocyte Esterase Trace H Urine WBC (Auto) 1-5 Urine RBC (Auto) 0-4 U Hyaline Cast (Auto) 0 U Epithel Cells (Auto) 5-10 H Urine Bacteria (Auto) 1+ H Urine Yeast Not Reportable Nasal Screen MRSA (PCR) Negative SARS-CoV-2 (PCR) NEGATIVE Influenza Type A (PCR) Negative Influenza Type B (PCR) Negative RSV (RT-PCR) Negative 07/01/21 07/01/21 04:34 04:34 WBC 18.28 H RBC 3.20 L Hgb 9.6 L Hct 29.4 L MCV 91.9 MCH 30.0 MCHC 32.7 RDW Std Deviation 53.7 H RDW Coeff of Giovana 15.8 H Plt Count 282 MPV 9.9 Immature Gran % (Auto) 1.9 Neut % (Auto) 84.0 Lymph % (Auto) 5.9 [place] % (Auto) 6.0 Eos % (Auto) 2.1 Baso % (Auto) 0.1 Neut # (Auto) 15.36 H Lymph # (Auto) 1.07 L [place] # (Auto) 1.10 H Eos # (Auto) 0.38 Baso # (Auto) 0.02 Immature Gran # (Auto) 0.35 H Sodium 132 L Potassium 3.5 Chloride 97 L Carbon Dioxide 25 Anion Gap 10.0 BUN 85 H Creatinine 8.91 H* Est Cr Clr Drug Dosing 8.3 Est GFR ( Amer) 6.3 Est GFR (Non-Af Amer) 5.4 BUN/Creatinine Ratio 9.5 L Glucose 136 H Calcium 9.4 Urine Color Urine Appearance Urine pH Ur Specific [place] Urine Protein Urine Glucose (UA) Urine Ketones Urine Blood Urine Nitrite Urine Bilirubin Urine Urobilinogen Ur Leukocyte Esterase Urine WBC (Auto) Urine RBC (Auto) U Hyaline Cast (Auto) U Epithel Cells (Auto) Urine Bacteria (Auto) Urine Yeast Nasal Screen MRSA (PCR) SARS-CoV-2 (PCR) Influenza Type A (PCR) Influenza Type B (PCR) RSV (RT-PCR) PG Care Time/CCT Total # of Minutes Spent Total Time Spent with Patient: Total time spent is greater than 50% in coordination of care (as documented) at patient's floor/unit and/or counseling patient: Coding Level of Care Code 51800 Subseq Hosp Care Lvl 3 Diagnoses Sepsis A41.9 Multifocal pneumonia J18.9 Acute respiratory failure with hypoxia J96.01 COPD (chronic obstructive pulmonary disease) J44.9 COPD type: unspecified COPD HTN (hypertension) I10 Hypertension type: unspecified End-stage renal disease on peritoneal dialysis N18.6; Z99.2 Fall W19.XXXA Chest pain R07.9 Chest pain type: unspecified Tobacco use disorder F17.200 DVT prophylaxis Z29.9 Tremor R25.1 Metabolic encephalopathy G93.41 (1) COPD (chronic obstructive pulmonary disease) COPD type: unspecified COPD Qualified Code(s): J44.9 - Chronic obstructive pulmonary disease, unspecified (2) Chest pain Chest pain type: unspecified Qualified Code(s): R07.9 - Chest pain, unspecified (3) HTN (hypertension) Hypertension type: unspecified Qualified Code(s): I10 - Essential (primary) hypertension
--- NOTE | 2021-07-01 11:50 | Nephrology Progress Note ---
Date of Service July 01, 2021 Assessment & Plan (1) End-stage renal disease on peritoneal dialysis: (2) HTN (hypertension): (3) PNA (pneumonia): Plan: Sisi Redmond is a 70-year-old gentlemen with ESRD secondary to polycystic kidney disease, on CCPD. Dialysis has been has regular. His residual renal function has been decreasing lately and as a result BUN creatinine has been staying high. Admitted to the hospital with fall with no fracture, right sided multifocal pneumonia and currently on empiric antibiotic, negative COVID. --CCPD tonight with his home prescription with 5 exchanges, 3 liter dwell volume, feels time 20 minutes and drain time 25 minutes with delflex 1.5% --continue on renal diet, dose medications for GFR less than 10 --continue phosphate binder with meat meal, Boost 1 can TID --Epogen 23024 units x 1 dose today. Will follow Admission and Anticipated Discharge Date Admission Date: June 30, 2021 Subjective Sisi was seen and examined in ICU this morning. No overnight events. He continues to feel poorly but denies any significant shortness of breath. Blood pressure has been relatively stable. Appetite decent. Had dialysis overnight and had 1.4 L UF. Physical Exam Constitutional: WD/WN, vitals as above + ill appearing; no acute distress Eyes: + anicteric sclerae ENMT: Ears: no hearing impairment Mouth: + dry oral mucous membranes Neck: normal visual inspection Respiratory: no respiratory distress Auscultation: + crackles ( At right base and mid lung field) Cardiovascular: Rate/Rhythm: regular rate and regular rhythm Heart Sounds: normal S1 and normal S2 Extremities: no edema Musculoskeletal: Extremities: extremities normal to inspection Skin: + turgor decreased and + skin atrophy Neurologic: no focal motor deficits and not confused Psychiatric: Orientation: alert and oriented x 3 Affect: euthymic affect Results & Data ([facility]) Vital Signs (Past 12 Hours) Vital Signs Temp Pulse Pulse Resp BP BP Pulse Ox 07/01/21 10:40 90 20 98 07/01/21 08:44 36.6 C 90 24 07/01/21 08:13 36.6 C 90 24 114/63 92 07/01/21 07:44 91 H 20 89 L 07/01/21 03:30 84 15 94 07/01/21 03:00 84 14 91/53 L 92 07/01/21 01:34 37 C 07/01/21 00:45 80 07/01/21 00:30 89 24 93 07/01/21 00:00 91 H 15 103/57 L 91 PG Care Time/CCT Total # of Minutes Spent Total Time Spent with Patient: Total time spent is greater than 50% in coordination of care (as documented) at patient's floor/unit and/or counseling patient: Coding Level of Care Code 09230 Subseq Hosp Care Lvl 3 Diagnoses End-stage renal disease on peritoneal dialysis N18.6; Z99.2 HTN (hypertension) I10 Hypertension type: unspecified PNA (pneumonia) J18.9 Laterality: bilateral Lung location: unspecified part of lung Pneumonia type: due to unspecified organism (1) HTN (hypertension) Hypertension type: unspecified Qualified Code(s): I10 - Essential (primary) hypertension (2) PNA (pneumonia) Laterality: bilateral Lung location: unspecified part of lung Pneumonia type: due to unspecified organism Qualified Code(s): J18.9 - Pneumonia, unspecified organism
[2021-07-01] MEDS ORDERED: EPOETIN ALFA 10,000 UNITS/ML VIAL SQ SCH (12:00)
[2021-07-01] MEDS: PIPERACILLIN/TAZOBACTAM 4.5 GM in DEXTROSE 5% 100 ML IV SCH (20:11)
[2021-07-01] MEDS: GABAPENTIN 100 MG CAP PO SCH (20:13)
[2021-07-02] MEDS ORDERED: METOPROLOL TARTRATE 1 MG/ML VIAL IV PRN (02:33)
[2021-07-02] MEDS ORDERED: METOPROLOL TARTRATE 1 MG/ML VIAL IV ONE (02:33)
--- NOTE | 2021-07-02 02:40 | Communication Note ---
Date of Service: July 02, 2021 Called to bedside by nursing staff following sudden development of elevated heart rate to the 140s with an irregular rhythm and demonstration of concerns regarding STEMI on new EKG. Open my presentation to bedside, patient with heart rate maintained >130 with an irregular rhythm. Denying chest pain or shortness of breath, does have hip pain that has been present for several days and is unchanged at this time. Given this elevated HR and EKG concerns ordered stat Troponin, BMP, and Mag level. Additionally, ordered 5mg of IV lopressor to be given for HR maintained greater than 110. After first dose, patient had rapid improvement in his heart rate to the 80-100s with improvement in BP. EKG findings were discussed with the night attending and repeat EKG was taken at the lowered HR which remained relatively unchanged. Will await the lab studies, but in the setting of no chest pain think that the changes visualized on EKG are rate related at this time. Resident Activity Tracking Resident Involvement: Resident Care Provided Care Provided: Adult [facility]
[2021-07-02 02:59] LABS: Hematocrit (blood only) 31.1 % (42-52); Hemoglobin 10.3 g/dL (14.0-18.0); Mean Corpuscular Hemoglobin 30.5 pg (25-34); Mean Corpuscular Hgb Conc 33.1 g/dL (32-36); Mean Platelet Volume 10.2 fL (7.4-10.4); Platelet Count 294 K/uL (130-400); RDW Coefficient of Variation 15.8 % (11.5-14.5); RDW Standard Deviation 53.6 fL (36.4-46.3); Red Blood Count 3.38 M/uL (4.7-6.1)
[2021-07-02 03:38] LABS: BUN Creatinine Ratio 9.5 (10-20); Calcium 8.9 mg/dl (8.5-10.1); Creatinine Clr Calc Pharmacy 8.3 ml/min; Est GFR (African American) 6.2 ml/min; Est GFR (Non-African American) 5.4 ml/min; Magnesium 1.8 mg/dl (1.7-2.4); Potassium 3.5 mmol/L (3.5-5.1); Troponin I 0.05 ng/ml (0-0.04)
[2021-07-02] MEDS: ALBUT/IPRATROP 3MG/0.5MG NEB 3 ML VIAL INH SCH ×4 (07:38→20:13)
[2021-07-02] MEDS: CALCITRIOL 0.25 MCG CAPSULE PO SCH (07:51)
[2021-07-02] MEDS: AZITHROMYCIN 250 MG TAB PO SCH (07:52)
[2021-07-02] MEDS: CETIRIZINE HCL 10 MG TABLET PO SCH (07:52)
[2021-07-02] MEDS: SEVELAMER HCL 800 MG TABLET PO SCH ×3 (07:52→18:26)
[2021-07-02] MEDS: HEPARIN SOD 5,000 UNIT/0.5 ML VIAL SQ SCH ×2 (07:53→21:48)
[2021-07-02] MEDS: UMECLIDINIUM/VILANTEROL 62.5/25MCG 7 PUFFS/INHALER INH SCH (07:53)
[2021-07-02] MEDS: guaiFENesin 600 MG TABCR PO SCH ×2 (07:53→21:48)
[2021-07-02] MEDS: PIPERACILLIN/TAZOBACTAM 4.5 GM in DEXTROSE 5% 100 ML IV SCH ×2 (07:57→21:46)
[2021-07-02] MEDS: POLYETHYLENE (MIRALAX) 17 GM PACK PO SCH ×2 (07:57→21:50)
--- NOTE | 2021-07-02 08:26 | Electrocardiogram Report ---
Test Reason : Blood Pressure : / mmHG Vent. Rate : 114 BPM Atrial Rate : 094 BPM P-R Int : 000 ms QRS Dur : 118 ms QT Int : 344 ms P-R-T Axes : 000 044 078 degrees QTc Int : 474 ms Atrial fibrillation with rapid ventricular response Non-specific intra-ventricular conduction delay Minor ST elevation in multiple leads, consdier pericarditis Abnormal ECG When compared with ECG of 30-JUN-2021 08:16, Atrial fibrillation has replaced Sinus rhythm ST elevation in multiple leads now present Confirmed by Serjio Overton ([id number]) on 07/02/2021 8:26:10 AM Referred By: REFERRED SELF Confirmed By:Serjio Overton
--- NOTE | 2021-07-02 08:27 | Electrocardiogram Report ---
Test Reason : Blood Pressure : / mmHG Vent. Rate : 099 BPM Atrial Rate : 066 BPM P-R Int : 000 ms QRS Dur : 124 ms QT Int : 366 ms P-R-T Axes : 000 029 073 degrees QTc Int : 469 ms Atrial fibrillation Non-specific intra-ventricular conduction delay Minor ST elevation in multiple leads, consdier pericarditis Abnormal ECG When compared with ECG of 02-JUL-2021 02:16, No significant change was found Confirmed by Serjio Overton ([id number]) on 07/02/2021 8:26:51 AM Referred By: REFERRED SELF Confirmed By:Serjio Overton
[2021-07-02] MEDS ORDERED: POTASSIUM CHLORIDE CRTAB 20 MEQ TABCR PO STA (08:33)
[2021-07-02] MEDS ORDERED: MAGNESIUM OXIDE 400 MG TAB PO ONE (08:33)
--- NOTE | 2021-07-02 11:19 | XCELERA ---
[id number]
--- NOTE | 2021-07-02 11:43 | Nephrology Progress Note ---
Date of Service July 02, 2021 Assessment & Plan (1) End-stage renal disease on peritoneal dialysis: (2) HTN (hypertension): (3) PNA (pneumonia): Plan: Sisi Redmond is a 70-year-old gentlemen with ESRD secondary to polycystic kidney disease, on CCPD. Dialysis has been has regular. His residual renal function has been decreasing lately and as a result BUN creatinine has been staying high. Admitted to the hospital with fall with no fracture, right sided multifocal pneumonia and currently on empiric antibiotic, negative COVID. Peritoneal dialysis has been uneventful, has been having more than 1 L of UF with their flex 1.5%. Blood pressure slightly improved and staying relatively stable. Overall clinically doing better. --CCPD tonight with with 5 exchanges, 3 liter dwell volume, feels time 20 minutes and drain time 25 minutes with delflex 1.5% --continue on renal diet, dose medications for GFR less than 10 --continue phosphate binder with meat meal, Boost 1 can TID --Epogen [id number] units x 1 dose given on 07/01/2021 Will follow Admission and Anticipated Discharge Date Admission Date: June 30, 2021 Abraham Laird was seen in ICU this morning. Had an episode of AFib with RVR last night, rate became controlled with metoprolol and converted to sinus rhythm. Still requiring around 5 L of nasal cannula oxygen to maintain saturation above 92 however clinically seems doing better. Leukocytosis improving. Blood pressure stable. Review of Systems Review of Systems: detailed review of system was done and pertinent positives and negatives were mentioned above. Physical Exam Constitutional: WD/WN, vitals as above + ill appearing; no acute distress Eyes: + anicteric sclerae ENMT: Ears: no hearing impairment Neck: normal visual inspection Respiratory: no respiratory distress Auscultation: + crackles ( At right base and mid lung field) Cardiovascular: Rate/Rhythm: regular rate and regular rhythm Heart Sounds: normal S1 and normal S2 Extremities: no edema Musculoskeletal: Extremities: extremities normal to inspection Skin: + turgor decreased and + skin atrophy Neurologic: no focal motor deficits and not confused Psychiatric: Orientation: alert and oriented x 3 Affect: euthymic affect Results & Data ([facility]) Vital Signs (Past 12 Hours) Vital Signs Temp Pulse Pulse Resp BP Pulse Ox 07/02/21 11:32 92 H 23 95 07/02/21 09:09 96 07/02/21 08:05 36.5 C 93 H 22 07/02/21 08:00 94 H 21 108/65 07/02/21 07:38 90 18 95 07/02/21 07:00 90 14 118/65 94 07/02/21 06:00 91 H 14 103/67 94 07/02/21 05:00 93 H 14 110/69 95 07/02/21 04:16 36.7 C 07/02/21 04:05 102 H 15 91/57 L 93 07/02/21 04:00 95 H 15 94 07/02/21 03:00 94 H 19 115/65 93 07/02/21 02:49 91 H 24 101/69 93 07/02/21 02:45 103 H 21 94 07/02/21 02:44 88 29 H 94 07/02/21 02:43 99 H 21 94 07/02/21 02:42 100 H 22 94 07/02/21 02:41 100 H 20 93 07/02/21 02:40 88 23 104/64 92 07/02/21 02:39 103 H 27 H 91 07/02/21 02:38 110 H 27 H 90 07/02/21 02:37 116 H 25 H 89 L 07/02/21 02:36 122 H 26 H 104/64 87 L 07/02/21 02:35 125 H 31 H 95/68 L 07/02/21 02:34 123 H 32 H 07/02/21 02:33 129 H 25 H 07/02/21 02:32 124 H 28 H 90 07/02/21 02:31 119 H 25 H 90 07/02/21 02:30 133 H 22 90 07/02/21 02:29 117 H 18 91 07/02/21 02:28 122 H 19 90 07/02/21 02:27 123 H 24 90 07/02/21 02:26 121 H 20 90 07/02/21 02:25 122 H 19 90 07/02/21 02:24 125 H 17 90 07/02/21 02:23 130 H 23 89 L 07/02/21 02:22 115 H 18 89 L 07/02/21 02:21 121 H 19 89 L 07/02/21 02:20 111 H 23 90 07/02/21 02:19 129 H 24 89 L 07/02/21 02:18 124 H 21 89 L 07/02/21 02:17 128 H 27 H 89 L 07/02/21 02:16 123 H 25 H 89 L 07/02/21 02:15 119 H 27 H 89 L 07/02/21 00:59 84 PG Care Time/CCT Total # of Minutes Spent Total Time Spent with Patient: Total time spent is greater than 50% in coordination of care (as documented) at patient's floor/unit and/or counseling patient: Coding Level of Care Code 83656 Subseq Hosp Care Lvl 3 Diagnoses End-stage renal disease on peritoneal dialysis N18.6; Z99.2 HTN (hypertension) I10 Hypertension type: unspecified PNA (pneumonia) J18.9 Laterality: bilateral Lung location: unspecified part of lung Pneumonia type: due to unspecified organism (1) HTN (hypertension) Hypertension type: unspecified Qualified Code(s): I10 - Essential (primary) hypertension (2) PNA (pneumonia) Laterality: bilateral Lung location: unspecified part of lung Pneumonia type: due to unspecified organism Qualified Code(s): J18.9 - Pneumonia, unspecified organism
--- NOTE | 2021-07-02 12:03 | Hospitalist Progress Note ---
Date of Service July 02, 2021 Assessment & Plan (1) Sepsis: Plan: 2nd to #2. WBC count improved. Blood and sputum cultures are negative. Cont zosyn. Stop azithromycin - QTc borderline prolonged. use doxycycline 100mg BID in koffi for atypical coverage. COVID, RSV, flu testing negative. (2) Multifocal pneumonia: Plan: No significant clinical improvement yet but expect such in the next 24 hours. Continue Zosyn. Convert azithromycin over to doxycycline. RUL, RML, and MAURICE on CT. COVID/RSV/Flu negative. Cont supportive care. Follow cultures. (3) PAF (paroxysmal atrial fibrillation): Plan: occurred overnight - spontaneously resolved obtain EKG now that he is in sinus rhythm keep on telemetry uncertain if he is anticoagulant candidate given his prior intracerebral aneurysm and he does have remaining aneurysms resume metoprolol when able (4) Acute respiratory failure with hypoxia: Plan: Secondary to pneumonia. Cont NC O2 or oxymask. Sats in low 90s given his COPD are acceptable. Cont Schedule nebs qid. (5) COPD (chronic obstructive pulmonary disease): Plan: Albuterol nebs qid. Flutter valve. Incentive mark. Mucinex BID. Cont home inhalers. Cont to defer on systemic IV steroids. (6) HTN (hypertension): Plan: Cont to hold metoprolol in setting of sepsis BPs this am remain acceptable Given his PAF hopefully we can resume the metoprolol soon (7) End-stage renal disease on peritoneal dialysis: Plan: Appreciate [facility] nephrology for peritoneal dialysis management. Continue sevelamer. (8) Fall: Plan: Just prior to admission. 2nd to weakness in setting of sepsis/pneumonia. PT, OT. (9) Chest pain: Plan: he struck his chest when he fell at home in the bathroom. pain is over the right chest. he also is having a component of pleuritic pain on the right c/w the location of his pneumonia. treat the pain as needed. CT chest did not show bony injury/rib fractures. minimal troponin rise - likely myocardial demand ischemia rather than ACS. 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 acute illness will make the tremor worse. No Rx. Treat the pneumonia. could consider primidone or similar. (12) DVT prophylaxis: Plan: heparin 5000 BID (13) Metabolic encephalopathy: Plan: vs baseline cognitive impairment cont supportive care (14) History of cerebral aneurysm repair: Plan: early , at [facility], [place], operated by [facility] previous CTA head with small 3x4mm aneurysm nothing to do at this time (15) Abnormal EKG: Plan: mild ST segment elevation in lead I, inferior leads, and minimally the anterior leads when he was in rapid a.fib never had ischemic symptoms troponin scantly elevated recheck EKG now that he is in NSR Plan: updated pt's daughter, Jenny, by phone once again this evening Admission and Anticipated Discharge Date Admission Date: June 30, 2021 Subjective patient had episode of rapid a.fib last pm. converted to NSR spontaneously. rapid a.fib lasted about 1 hour. during the episode never had chest pain or ischemic symptoms. this am during rounds he denies any substernal chest pain or left-sided chest pain. he has mild pleuritic pain over the right chest. continues with cough. no dyspnea at rest. some sputum production. appetite remains poor. he is very weak. spoke with daughter - patient had ruptured intracerebral aneurysm requiring coiling procedure years ago at [facility], [place], operated by [facility]. Review of Systems Review of Systems: gen - no fevers, no chills pulm - no hemoptysis GI - no vomiting or pain CV - mild pleuritic pain over right chest w/ deep breaths Physical Exam Physical Exam: gen - looks chronically unwell, frail, no distress, mild confusion still HENT - MMM neck - no JVD heart - RRR, s1 s2, no murmur lungs - markedly decreased BS right base, minimal rales right base, clear on left, no wheeze abd - soft but protuberant 2nd PD fluid, PD catheter c/d/i; NT, BS+ ext - pulses 1-2+ b/l, no edema psych - still confused neuro - tremors arms Results & Data Results & Data ([facility]) Vital Signs (Past 12 Hours) Vital Signs Temp Pulse Pulse Resp BP Pulse Ox 07/02/21 11:32 92 H 23 95 07/02/21 09:09 96 07/02/21 08:05 36.5 C 93 H 22 07/02/21 08:00 94 H 21 108/65 07/02/21 07:38 90 18 95 07/02/21 07:00 90 14 118/65 94 07/02/21 06:00 91 H 14 103/67 94 07/02/21 05:00 93 H 14 110/69 95 07/02/21 04:16 36.7 C 07/02/21 04:05 102 H 15 91/57 L 93 07/02/21 04:00 95 H 15 94 07/02/21 03:00 94 H 19 115/65 93 07/02/21 02:49 91 H 24 101/69 93 07/02/21 02:45 103 H 21 94 07/02/21 02:44 88 29 H 94 07/02/21 02:43 99 H 21 94 07/02/21 02:42 100 H 22 94 07/02/21 02:41 100 H 20 93 07/02/21 02:40 88 23 104/64 92 07/02/21 02:39 103 H 27 H 91 07/02/21 02:38 110 H 27 H 90 07/02/21 02:37 116 H 25 H 89 L 07/02/21 02:36 122 H 26 H 104/64 87 L 07/02/21 02:35 125 H 31 H 95/68 L 07/02/21 02:34 123 H 32 H 07/02/21 02:33 129 H 25 H 07/02/21 02:32 124 H 28 H 90 07/02/21 02:31 119 H 25 H 90 07/02/21 02:30 133 H 22 90 07/02/21 02:29 117 H 18 91 07/02/21 02:28 122 H 19 90 07/02/21 02:27 123 H 24 90 07/02/21 02:26 121 H 20 90 07/02/21 02:25 122 H 19 90 07/02/21 02:24 125 H 17 90 07/02/21 02:23 130 H 23 89 L 07/02/21 02:22 115 H 18 89 L 07/02/21 02:21 121 H 19 89 L 07/02/21 02:20 111 H 23 90 07/02/21 02:19 129 H 24 89 L 07/02/21 02:18 124 H 21 89 L 07/02/21 02:17 128 H 27 H 89 L 07/02/21 02:16 123 H 25 H 89 L 07/02/21 02:15 119 H 27 H 89 L 07/02/21 00:59 84 Laboratory Results Laboratory Results - last 24 hr 07/01/21 07/01/21 07/02/21 04:34 13:54 02:45 WBC 13.20 H RBC 3.38 L Hgb 10.3 L Hct 31.1 L MCV 92.0 MCH 30.5 MCHC 33.1 RDW Std Deviation 53.6 H RDW Coeff of Giovana 15.8 H Plt Count 294 MPV 10.2 Sodium Potassium Chloride Carbon Dioxide Anion Gap BUN Creatinine Est Cr Clr Drug Dosing Est GFR ( Amer) Est GFR (Non-Af Amer) BUN/Creatinine Ratio Glucose Calcium Magnesium Total Creatine Kinase 78 Troponin I C-Reactive Protein TSH Random Vancomycin 12.8 07/02/21 07/02/21 07/02/21 02:45 10:21 10:21 WBC RBC Hgb Hct MCV MCH MCHC RDW Std Deviation RDW Coeff of Giovana Plt Count MPV Sodium 133 L Potassium 3.5 Chloride 93 L Carbon Dioxide 24 Anion Gap 16 H BUN 85 H Creatinine 8.94 H* Est Cr Clr Drug Dosing 8.3 Est GFR ( Amer) 6.2 Est GFR (Non-Af Amer) 5.4 BUN/Creatinine Ratio 9.5 L Glucose 137 H Calcium 8.9 Magnesium 1.8 Total Creatine Kinase Troponin I 0.05 H* 0.05 H* C-Reactive Protein 41.89 H TSH 1.155 Random Vancomycin Diagnostic Findings echo - normal EF, normal wall motion, mild , mildly dilated inferior vena cava PG Care Time/CCT Total # of Minutes Spent Total Time Spent with Patient: Total time spent is greater than 50% in coordination of care (as documented) at patient's floor/unit and/or counseling patient: Coding Level of Care Code 77289 Subseq Hosp Care Lvl 3 Diagnoses Sepsis A41.9 Multifocal pneumonia J18.9 Acute respiratory failure with hypoxia J96.01 COPD (chronic obstructive pulmonary disease) J44.9 COPD type: unspecified COPD HTN (hypertension) I10 Hypertension type: unspecified End-stage renal disease on peritoneal dialysis N18.6; Z99.2 Fall W19.XXXA Chest pain R07.9 Chest pain type: unspecified Tobacco use disorder F17.200 Tremor R25.1 DVT prophylaxis Z29.9 Metabolic encephalopathy G93.41 PAF (paroxysmal atrial fibrillation) I48.0 History of cerebral aneurysm repair Z98.890; Z86.79 Abnormal EKG R94.31 (1) COPD (chronic obstructive pulmonary disease) COPD type: unspecified COPD Qualified Code(s): J44.9 - Chronic obstructive pulmonary disease, unspecified (2) Chest pain Chest pain type: unspecified Qualified Code(s): R07.9 - Chest pain, unspecified (3) HTN (hypertension) Hypertension type: unspecified Qualified Code(s): I10 - Essential (primary) hypertension
[2021-07-02] MEDS: GABAPENTIN 100 MG CAP PO SCH (21:48)
[2021-07-03 05:58] LABS: Hematocrit (blood only) 29.7 % (42-52); Hemoglobin 9.6 g/dL (14.0-18.0); Mean Corpuscular Hemoglobin 29.9 pg (25-34); Mean Corpuscular Hgb Conc 32.3 g/dL (32-36); Mean Corpuscular Volume 92.5 fL (80-100); Mean Platelet Volume 9.8 fL (7.4-10.4); Platelet Count 337 K/uL (130-400); RDW Coefficient of Variation 15.4 % (11.5-14.5); RDW Standard Deviation 52.5 fL (36.4-46.3); Red Blood Count 3.21 M/uL (4.7-6.1); White Blood Count 11.99 K/uL (4.8-10.8)
[2021-07-03 06:44] LABS: BUN Creatinine Ratio 9.5 (10-20); Calcium 9.1 mg/dl (8.5-10.1); Creatinine Clr Calc Pharmacy 7.2 ml/min; Est GFR (African American) 6.7 ml/min; Est GFR (Non-African American) 5.7 ml/min; Potassium 3.7 mmol/L (3.5-5.1)
[2021-07-03] MEDS: ALBUT/IPRATROP 3MG/0.5MG NEB 3 ML VIAL INH SCH ×4 (07:15→20:44)
[2021-07-03] MEDS: SEVELAMER HCL 800 MG TABLET PO SCH ×3 (07:56→16:35)
[2021-07-03] MEDS: PIPERACILLIN/TAZOBACTAM 4.5 GM in DEXTROSE 5% 100 ML IV SCH ×2 (07:56→21:00)
[2021-07-03] MEDS: UMECLIDINIUM/VILANTEROL 62.5/25MCG 7 PUFFS/INHALER INH SCH (07:57)
[2021-07-03] MEDS: DOXYCYCLINE HYCLATE 100 MG in DEXTROSE 5% 100 ML IV SCH ×2 (08:02→22:22)
[2021-07-03] MEDS: guaiFENesin 600 MG TABCR PO SCH ×2 (08:03→21:08)
[2021-07-03] MEDS: CETIRIZINE HCL 10 MG TABLET PO SCH (08:03)
[2021-07-03] MEDS: HEPARIN SOD 5,000 UNIT/0.5 ML VIAL SQ SCH ×2 (08:06→21:09)
[2021-07-03] MEDS: POLYETHYLENE (MIRALAX) 17 GM PACK PO SCH ×2 (08:07→21:32)
--- NOTE | 2021-07-03 09:58 | Nephrology Progress Note ---
Date of Service July 03, 2021 Assessment & Plan (1) End-stage renal disease on peritoneal dialysis: (2) HTN (hypertension): (3) PNA (pneumonia): Plan: Sisi Redmond is a 70-year-old gentlemen with ESRD secondary to polycystic kidney disease, on CCPD. Dialysis has been has regular. His residual renal function has been decreasing lately and as a result BUN creatinine has been staying high. Admitted to the hospital with fall with no fracture, right sided multifocal pneumonia and currently on Zosyn, negative COVID. Peritoneal dialysis has been uneventful, has been having more than 1 L of UF with their flex 1.5%. Blood pressure staying relatively stable. --CCPD tonight with with 5 exchanges, 3 liter dwell volume, feels time 20 minutes and drain time 25 minutes with delflex 1.5% --continue on renal diet, dose medications for GFR less than 10 --change calcitriol to 0.25 mcg MWF, continue Renvela 3 tab TID with meat meal, Boost 1 can TID --Epogen 08437 units x 1 dose given on 07/01/2021 Will follow Admission and Anticipated Discharge Date Admission Date: June 30, 2021 Abraham Laird was seen in ICU this morning. Still requiring around 5 L of nasal cannula oxygen to maintain saturation above 92 and easily desaturates off of NC O2. c/o back pain , minimally responsive to Tylenol. Still feels shaky. Blood pressure stable. Review of Systems Review of Systems: detailed review of system was done and pertinent positives and negatives were mentioned above. Physical Exam Constitutional: WD/WN, vitals as above + ill appearing; no acute distress Eyes: + anicteric sclerae ENMT: Ears: no hearing impairment Neck: normal visual inspection Respiratory: no respiratory distress Auscultation: + crackles ( At right base and mid lung field) Cardiovascular: Rate/Rhythm: regular rate and regular rhythm Heart Sounds: normal S1 and normal S2 Extremities: no edema Musculoskeletal: Extremities: extremities normal to inspection Skin: + turgor decreased and + skin atrophy Neurologic: no focal motor deficits and not confused Psychiatric: Orientation: alert and oriented x 3 Affect: euthymic affect Results & Data ([facility]) Vital Signs (Past 12 Hours) Vital Signs Temp Pulse Pulse Resp BP Pulse Ox 07/03/21 07:57 36.6 C 96 H 22 07/03/21 07:15 90 20 91 07/03/21 00:57 96 H 07/03/21 00:00 36.7 C 98 H 19 104/57 L 92 PG Care Time/CCT Total # of Minutes Spent Total Time Spent with Patient: Total time spent is greater than 50% in coordination of care (as documented) at patient's floor/unit and/or counseling patient: Coding Level of Care Code 07601 Subseq Hosp Care Lvl 3 Diagnoses End-stage renal disease on peritoneal dialysis N18.6; Z99.2 HTN (hypertension) I10 Hypertension type: unspecified PNA (pneumonia) J18.9 Laterality: bilateral Lung location: unspecified part of lung Pneumonia type: due to unspecified organism (1) HTN (hypertension) Hypertension type: unspecified Qualified Code(s): I10 - Essential (primary) hypertension (2) PNA (pneumonia) Laterality: bilateral Lung location: unspecified part of lung Pneumonia type: due to unspecified organism Qualified Code(s): J18.9 - Pneumonia, unspecified organism
--- NOTE | 2021-07-03 11:42 | XRay Report ---
XR chest 1V portable CLINICAL HISTORY: R sided pneumonia, b/l wheeze; eval effusion/edema. COMPARISON STUDY: 06/30/[address] of the chest from 06/30/2021 TECHNIQUE: 1 view of the chest FINDINGS: Single frontal view of the chest demonstrates the cardiomediastinal silhouette to be within normal li mits. Compared to the previous examination, sharply defined fluid is seen within the minor fissure. T his also evidence for left pleural effusion. There is evidence for minimal left basilar atelectasis. No definite confluent alveolar opacities are identified. There is no evidence for vascular congestion . There is no acute osseous pathology. IMPRESSION: Compared to the previous studies, fluid is again seen within the right minor fissure whic h is now sharply defined. Small left pleural effusion is also present with left basilar atelectasis. There are no focal alveolar opacities. ACT 112: Negative or not required by law. Electronically signed by: Da Samson M.D. 07/03/2021 11:41 AM
[2021-07-03] MEDS: methylPREDNISolone 40 MG in SYRINGE 0 ML IV SCH ×2 (11:47→21:08)
[2021-07-03] MEDS: METOPROLOL TARTRATE 1 MG/ML VIAL IV PRN ×4 (12:30→23:55)
--- NOTE | 2021-07-03 13:01 | Hospitalist Progress Note ---
Date of Service July 03, 2021 Assessment & Plan (1) Sepsis: Plan: 2nd to #2. WBC count markedly improved. Blood and sputum cultures are negative. Cont zosyn. Day #4. Doxycycline 100mg BID in koffi for atypical coverage. Day #1. COVID, RSV, flu testing negative. will repeat a cxr today. repeat CRP in am. (2) Multifocal pneumonia: Plan: Slight/modest improvement overnight. Continue Zosyn. Start doxycycline. Cont supportive care. (3) PAF (paroxysmal atrial fibrillation): Plan: 2 episodes since admission. Symptomatic from such. Responds nicely to lopressor for rate control, but BPs are low-normal, and AV jose eduardo agents may be difficult to continue. Likely NOT an anticoagulation candidate given prior cerebral aneurysm w rupture. He also has a 2nd aneurysm on prior CTA head. Will consult cardiology - antiarrhythmic? (4) Paroxysmal atrial flutter: Plan: 2:1 conduction. Good response to lopressor IV, but ongoing use of such may be challenging due to low-normal BPs. Consult cardiology for their opinion. See #3 above. (5) Acute respiratory failure with hypoxia: Plan: Secondary to pneumonia. Cont NC O2 or oxymask. Sats in low 90s given his COPD are acceptable. Cont Schedule nebs qid. Add IV solumedrol for bronchospasm/wheezing/COPD exacerbation. (6) COPD (chronic obstructive pulmonary disease): Plan: with exacerbation. Add solumedrol 40mg IV BID. Cont albuterol nebs qid. Cont Flutter valve and incentive mark. Mucinex BID. Cont home inhalers. NC O2. (7) HTN (hypertension): Plan: If BPs will allow would resume his beta spencer. Hold for now. (8) End-stage renal disease on peritoneal dialysis: Plan: Appreciate [facility] [place] for [place] dialysis management. Continue sevelamer. (9) Fall: Plan: Just prior to admission. 2nd to weakness in setting of sepsis/pneumonia. PT, OT. Fortunately no bony injuries from this fall. (10) Chest pain: Plan: he struck his chest when he fell at home in the bathroom. pain is primarily over the right chest. he also is having a component of pleuritic pain on the right c/w the location of his pneumonia. treat the pain as needed. CT chest did not show bony injury/rib fractures. minimal troponin rise - likely myocardial demand ischemia rather than ACS. (11) Tobacco use disorder: Plan: declines nicoderm patch field counsel to quit (12) Tremor: Plan: per the EMR this is chronic. acute illness will make the tremor worse. No Rx at this time but could consider primidone or similar as outpatient. (13) DVT prophylaxis: Plan: heparin 5000 BID (14) Metabolic encephalopathy: Plan: vs baseline cognitive impairment cont supportive care mental status was stable today (15) History of cerebral aneurysm repair: Plan: early , at [facility] previous CTA head with small 3x4mm aneurysm nothing to do at this time (16) Abnormal EKG: Plan: mild ST segment elevation in lead I, inferior leads, and minimally the anterior leads when he was in rapid a.fib never had ischemic symptoms troponin scantly elevated repeat EKG this am - minimal ST segment elevation inferior leads EKG findings not c/w acute [place] cardiology will be consulting for PAFib/flutter Plan: updated pt's daughter, Jenny, by phone last pm left message for Jenny this evening Admission and Anticipated Discharge Date Admission Date: June 30, 2021 Subjective pt had uneventful night slept comfortably no orthopnea continues to cough energy modestly better appetite modestly better only has chest tightness/discomfort when he takes a deep breath or cough (R chest more so than L chest) following my AM rounds I was contacted by the pt's nurse patient developed rapid a.flutter, 2:1 conduction lopressor 5mg IV x 1 was given HR improved to <100 by the time of my reassessment upon my arrival it appeared he had gone from a.flutter to a.fib he stated he had palpitations when he went into rapid a.flutter he also felt a little dizzy NO chest pain Review of Systems Review of Systems: gen - no fevers or chills pulm - no hemoptysis, mild sputum otherwise CV - no central chest pain GI - no abd pain, N/V or diarrhea Physical Exam Physical Exam: gen - mild comfortable tachypnea, coughing, awake, alert; he overall looks better to me today HENT - MMM neck - no JVD heart - tachy, irregular, s1 s2, no murmur lungs - markedly decreased BS right base, minimal rales right base; b/l wheezes today (expiratory); tachypnea, subtle retractions chest - no reproducible chest wall tenderness to palpation abd - soft, PD catheter c/d/i, NT, BS+, no HSM ext - pulses 2+ b/l, no edema neuro - less tremors of arms today Results & Data Results & Data ([facility]) Vital Signs (Past 12 Hours) Vital Signs Temp Pulse Pulse Resp BP Pulse Ox 07/03/21 12:30 147 H 108/76 07/03/21 11:19 93 H 18 92 07/03/21 07:57 36.6 C 96 H 22 07/03/21 07:15 90 20 91 Laboratory Results Laboratory Results - last 24 hr 07/02/21 07/03/21 07/03/21 19:03 05:32 05:32 WBC 11.99 H RBC 3.21 L Hgb 9.6 L Hct 29.7 L MCV 92.5 MCH 29.9 MCHC 32.3 RDW Std Deviation 52.5 H RDW Coeff of Giovana 15.4 H Plt Count 337 MPV 9.8 Sodium 135 L Potassium 3.7 Chloride 95 L Carbon Dioxide 24 Anion Gap 16 H BUN 80 H Creatinine 8.46 H* D Est Cr Clr Drug Dosing 7.2 Est GFR ( Amer) 6.7 Est GFR (Non-Af Amer) 5.7 BUN/Creatinine Ratio 9.5 L Glucose 132 H Calcium 9.1 Troponin I 0.05 H* Diagnostic Findings EKG early this am - NSR, [address] segment elevation inferior leads EKG mid-day - rapid a.flutter PG Care Time/CCT Total # of Minutes Spent Total Time Spent with Patient: Total time spent is greater than 50% in coordination of care (as documented) at patient's floor/unit and/or counseling patient: Coding Level of Care Code 30782 Subseq Hosp Care Lvl 3 Diagnoses Sepsis A41.9 Multifocal pneumonia J18.9 PAF (paroxysmal atrial fibrillation) I48.0 Acute respiratory failure with hypoxia J96.01 COPD (chronic obstructive pulmonary disease) J44.9 COPD type: unspecified COPD HTN (hypertension) I10 Hypertension type: unspecified End-stage renal disease on peritoneal dialysis N18.6; Z99.2 Fall W19.XXXA Chest pain R07.9 Chest pain type: unspecified Tobacco use disorder F17.200 Tremor R25.1 DVT prophylaxis Z29.9 Metabolic encephalopathy G93.41 History of cerebral aneurysm repair Z98.890; Z86.79 Abnormal EKG R94.31 Paroxysmal atrial flutter I48.92 (1) COPD (chronic obstructive pulmonary disease) COPD type: unspecified COPD Qualified Code(s): J44.9 - Chronic obstructive pulmonary disease, unspecified (2) Chest pain Chest pain type: unspecified Qualified Code(s): R07.9 - Chest pain, unspecified (3) HTN (hypertension) Hypertension type: unspecified Qualified Code(s): I10 - Essential (primary) hypertension
--- NOTE | 2021-07-03 14:26 | Electrocardiogram Report ---
Test Reason : Blood Pressure : / mmHG Vent. Rate : 093 BPM Atrial Rate : 093 BPM P-R Int : 172 ms QRS Dur : 144 ms QT Int : 366 ms P-R-T Axes : -19 015 081 degrees QTc Int : 455 ms Normal sinus rhythm Non-specific intra-ventricular conduction block Minor ST elevation in Inferior leads Abnormal ECG When compared with ECG of 02-JUL-2021 02:43, Sinus rhythm has replaced Atrial fibrillation ST elevation in multiple leads less pronounced Confirmed by Serjio Overton ([id number]) on 07/03/2021 2:26:26 PM Referred By: REFERRED SELF Confirmed By:Serjio Overton
--- NOTE | 2021-07-03 14:44 | Electrocardiogram Report ---
Test Reason : Blood Pressure : / mmHG Vent. Rate : 147 BPM Atrial Rate : 294 BPM P-R Int : 000 ms QRS Dur : 114 ms QT Int : 370 ms P-R-T Axes : 000 -20 198 degrees QTc Int : 579 ms Atrial flutter with 2:1 A-V conduction Low voltage QRS Minor Non-specific intra-ventricular conduction delay Minor ST elevation in Inferior leads Abnormal ECG When compared with ECG of 03-JUL-2021 05:04, Atrial flutter has replaced Sinus rhythm Vent. rate has increased BY 54 BPM Confirmed by Serjio Overton ([id number]) on 07/03/2021 2:44:19 PM Referred By: REFERRED SELF Confirmed By:Serjio Overton
[2021-07-03] MEDS: SENNA 8.6 MG TAB PO SCH (14:57)
--- NOTE | 2021-07-03 16:35 | Cardiology Consultation ---
Date of Consultation July 03, 2021 Assessment & Plan (1) PAF (paroxysmal atrial fibrillation): (2) Acute respiratory failure with hypoxia: (3) Pulmonary emphysema: (4) PNA (pneumonia): (5) End-stage renal disease on peritoneal dialysis: 70-year-old man with COPD admitted with pneumonia who has experienced recurrent atrial tachydysrhythmias (atrial fibrillation then atrial flutter). Although his symptoms are not severe (palpitations), his episode of atrial flutter today is particular concerning, since he would not likely tolerate an extended period of marked tachycardia (147 bpm) with his respiratory failure and comorbidities. He is not an anticoagulation candidate due to intracranial coils to treat a cerebral aneurysm/hemorrhage. Given the likelihood he would poorly tolerate sustained atrial tachydysrhythmias as well as contraindication to anticoagulation, feel he is best managed by proceeding directly to antiarrhythmic therapy. Recommend amiodarone loading at 200 mg 3 times daily while in hospital, could be discharged on 200 mg twice daily with further tapering in the future. If he has recurrent atrial tachydysrhythmia while orally loading amiodarone, he could receive additional IV metoprolol (which was effective today) or if necessary IV amiodarone. Dr. Serna will be rounding tomorrow, I will ask him to check on this patient's rhythm status. History of Present Illness Reason for Consultation: PAF/flutter Requesting Physician: Catrachito Kennedy Attending Physician: Catrachito Kennedy History of Present Illness 70-year-old man with with no apparent cardiac history but with end-stage renal disease (peritoneal dialysis), COPD, intracranial hemorrhage secondary to aneurysm (Rx with coils/anticoagulation contraindicated), who was admitted 06/30/2021 with pneumonia and subsequently demonstrated several episodes of atrial fibrillation/flutter with rapid ventricular response. His last episode was mid-day today, atrial flutter with ventricular rate 147 bpm persisting for about an hour before responding to a single dose of IV metoprolol. He has been in sinus rhythm since that time. He notes a sense of tachypalpitations during the dysrhythmia but denies chest pain. He is dyspneic due to his pneumonia, not obviously worsened during dysrhythmia. At the time of my evaluation he was resting quietly, he felt fatigued and mildly dyspneic but was in no acute distress. Allergies Allergy/AdvReac Type Severity Reaction Status Date / Time lisinopril Allergy Mild COUGH Verified 06/30/21 09:32 Home Medications Medication Instructions Recorded Confirmed Type sevelamer carbonate 800 mg tablet 2,400 mg PO TIDM 04/19/19 06/30/21 History (Renvela) nebulizer accessories #1 ea 10/30/19 11/27/20 Rx cetirizine 10 mg tablet 10 mg PO QAM 07/26/20 06/30/21 History albuterol sulfate 90 mcg/actuation 1 inh INH Q6H PRN #18 gm 02/18/21 06/30/21 Rx aerosol inhaler (ProAir HFA) ipratropium 0.5 mg-albuterol 3 mg 3 ml INH QAM #180 ml 02/18/21 06/30/21 Rx (2.5 mg base)/3 mL nebulization soln tiotropium 2.5 mcg-olodaterol 2.5 2 puff INH QAM #4 g 02/18/21 06/30/21 Rx mcg/actuation mist for inhalation (Stiolto Respimat) calcitriol 0.5 mcg capsule 1.5 mcg PO UD 06/30/21 06/30/21 History gabapentin 100 mg capsule 100 mg PO HS 06/30/21 06/30/21 History guaifenesin 600 mg tablet, 600 mg PO BID 06/30/21 06/30/21 History extended release 12 hr (Mucinex) metoprolol succinate 50 mg 25 mg PO DAILY 06/30/21 06/30/21 History tablet,extended release 24 hr polyethylene glycol 3350 17 17 g PO BID 06/30/21 06/30/21 History gram/dose oral powder (Miralax) Patient History Medical History (Updated 07/03/21 @ 16:17 by Serjio Overton MD) Alzheimer disease Anemia Benign neoplasm of skin of nose Benign prostate hyperplasia CCPD (continuous cycling peritoneal dialysis) status port in place left abdomen--dialysis daily at home Chronic kidney disease, stage 5 Chronic obstructive pulmonary disease inhaler/nebulizer daily Diverticulosis Gout Hemorrhoids Hypercalcemia Hypertension Intracranial hemorrhage 2013 [place] Low back pain On home oxygen therapy 2L N/C at hs Polycystic kidney disease, adult type (09/03/12) Rotator cuff sprain Secondary hyperparathyroidism (of renal origin) Secondary hyperparathyroidism of renal origin Tremor of both hands Vitamin D deficiency Surgical History (Updated 07/02/21 @ 12:03 by Catrachito Kennedy) History of cerebral aneurysm repair 2012 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 Hemoglobin 9.6. Serial troponins <0.015, 0.05, 0.05, 0.05. Diagnostic Findings ECG on admission showed sinus tachycardia 108 bpm, minor interventricular conduction delay, PACs, nonspecific T wave abnormality anterolateral leads. Compared with 10/01/2019 ECG, PACs were new and ventricular rate increased by 46 bpm. Second ECG 2 days later showed atrial fibrillation with rapid ventricular response of 114 bpm, minor ST elevation in multiple leads noted, consider pericarditis. ECG early today showed sinus rhythm with minor ST elevation in the inferior leads (less pronounced than prior ECG). ECG midday today showed atrial flutter with 2 1 AV conduction and ventricular rate of 147 bpm. Echocardiogram yesterday showed EF 60 to 65% with mild LVH, mild/MR, mildly dilated IVC. PG Care Time/CCT Total # of Minutes Spent Total Time Spent with Patient: Total time spent is greater than 50% in coordination of care (as documented) at patient's floor/unit and/or counseling patient: Coding Level of Care Code 27287 Inpt Consult Level 4 Diagnoses PAF (paroxysmal atrial fibrillation) I48.0 Pulmonary emphysema J43.9 PNA (pneumonia) J18.9 Laterality: bilateral Lung location: unspecified part of lung Pneumonia type: due to unspecified organism Acute respiratory failure with hypoxia J96.01 End-stage renal disease on peritoneal dialysis N18.6; Z99.2 (1) PNA (pneumonia) Laterality: bilateral Lung location: unspecified part of lung Pneumonia type: due to unspecified organism Qualified Code(s): J18.9 - Pneumonia, unspecified organism
[2021-07-03] MEDS: AMIODARONE 200 MG TAB PO SCH (19:19)
[2021-07-03] MEDS: GABAPENTIN 100 MG CAP PO SCH (21:09)
[2021-07-03] MEDS: ACETAMINOPHEN 325 MG TAB PO PRN (22:01)
[2021-07-04] MEDS ORDERED: METOPROLOL TARTRATE 1 MG/ML VIAL IV PRN (00:19)
[2021-07-04] MEDS ORDERED: LACTATED RINGER'S 500 ML IV ONE (01:01)
[2021-07-04] MEDS ORDERED: 0.2 MICRON FILTER SET 1 EA IV ONE ×3 (01:44→08:30)
[2021-07-04] MEDS ORDERED: AMIODARONE / D5W 150 MG/100 ML BAG IV STA ×2 (01:44→02:46)
[2021-07-04 03:57] LABS: BUN Creatinine Ratio 10.1 (10-20); Calcium 9.4 mg/dl (8.5-10.1); Creatinine Clr Calc Pharmacy 7.2 ml/min; Est GFR (African American) 6.7 ml/min; Est GFR (Non-African American) 5.8 ml/min; Potassium 4.2 mmol/L (3.5-5.1)
[2021-07-04 03:58] LABS: BUN Creatinine Ratio 10.2 (10-20); Calcium 9.4 mg/dl (8.5-10.1); Creatinine Clr Calc Pharmacy 7.2 ml/min; Est GFR (African American) 6.7 ml/min; Est GFR (Non-African American) 5.8 ml/min; Magnesium 1.9 mg/dl (1.7-2.4); Phosphorus 6.3 mg/dl (2.5-4.9); Potassium 4.2 mmol/L (3.5-5.1)
[2021-07-04] MEDS: ALBUT/IPRATROP 3MG/0.5MG NEB 3 ML VIAL INH SCH ×4 (07:18→19:56)
[2021-07-04] MEDS ORDERED: EPOETIN ALFA 10,000 UNITS/ML VIAL SQ ONE (08:30)
[2021-07-04] MEDS: DOXYCYCLINE HYCLATE 100 MG in DEXTROSE 5% 100 ML IV SCH ×2 (08:30→21:26)
[2021-07-04] MEDS: methylPREDNISolone 40 MG in SYRINGE 0 ML IV SCH (08:34)
[2021-07-04] MEDS: SENNA 8.6 MG TAB PO SCH (08:34)
[2021-07-04] MEDS: SEVELAMER HCL 800 MG TABLET PO SCH ×3 (08:34→17:28)
[2021-07-04] MEDS: guaiFENesin 600 MG TABCR PO SCH ×2 (08:34→20:26)
[2021-07-04] MEDS: UMECLIDINIUM/VILANTEROL 62.5/25MCG 7 PUFFS/INHALER INH SCH (08:35)
[2021-07-04] MEDS: CALCITRIOL 0.25 MCG CAPSULE PO SCH (08:35)
[2021-07-04] MEDS: CETIRIZINE HCL 10 MG TABLET PO SCH (08:36)
[2021-07-04] MEDS: HEPARIN SOD 5,000 UNIT/0.5 ML VIAL SQ SCH ×2 (08:36→20:27)
[2021-07-04] MEDS: AMIODARONE / D5W 360 MG/200 ML BAG IV SCH ×2 (08:37→20:22)
[2021-07-04] MEDS: POLYETHYLENE (MIRALAX) 17 GM PACK PO SCH ×2 (08:47→20:31)
[2021-07-04] MEDS: AMIODARONE 200 MG TAB PO SCH ×3 (09:27→17:29)
--- NOTE | 2021-07-04 09:53 | Cardiology Progress Note ---
Date of Service July 04, 2021 Assessment & Plan (1) Paroxysmal atrial flutter: (2) PAF (paroxysmal atrial fibrillation): Plan: 1. He has intermittent atrial flutter and atrial fibrillation, no sinus rhythm since yesterday. During atrial flutter the rate is quite fast as he is in 2-1 atrial flutter, with atrial fibrillation the rate is little bit better but still fast. At this point I would agree with using intravenous amiodarone, that is more likely to hold him in sinus rhythm and more likely to convert him. Agree with using 0.5mg/h without a load since he got several 150 mg loads during the night. If given with oral amiodarone 200 mg 3 times daily that will be 1320 mg/day which is acceptable and will bring him to a therapeutic level more quickly, hopefully in several days although it can take longer. His blood pressure is little bit on the low side so I would avoid diltiazem, he probably has elevated catecholamines under the situation so a little bit of beta-blockade might be beneficial but we should avoid high doses I am going to place him on low doses of intravenous metoprolol which hopefully will not affect his blood pressure much. Admission and Anticipated Discharge Date Admission Date: June 30, 2021 Subjective He is supine in bed with a oxygen mask on, he tells me he is feeling fairly well, at least from the cardiac standpoint. He denies palpitations, chest discomfort. He does not appear to be in respiratory distress. Physical Exam Physical Exam: Constitutional: Alert, cooperative and in only mild distress. Pulmonary: Scattered crackles and rhonchi bilaterally. Cardiac: Irregular rapid rhythm with no murmur, gallop or rub. Abdomen: Soft, nontender with normal bowel sounds. Extremities: No edema. Results & Data ([facility]) Vital Signs (Past 12 Hours) Vital Signs Temp Pulse Pulse Resp BP BP BP 07/04/21 07:49 36.6 C 136 H 22 97/75 L 07/04/21 07:18 108 H 20 07/04/21 06:22 94 H 17 94/57 L 07/04/21 06:19 86 15 07/04/21 06:00 126 H 25 H 84/66 L 07/04/21 05:40 92 H 18 07/04/21 05:30 121 H 17 07/04/21 05:20 108 H 16 07/04/21 05:10 123 H 14 07/04/21 05:01 122 H 15 95/67 L 07/04/21 05:00 122 H 20 07/04/21 04:00 119 H 19 99/76 L 07/04/21 03:21 93 H 07/04/21 03:05 120 H 18 99/71 L 07/04/21 03:00 121 H 20 07/04/21 02:35 120 H 15 92/64 L 07/04/21 02:21 115 H 99/70 L 07/04/21 02:00 126 H 17 99/70 L 07/04/21 01:41 127 H 14 105/69 07/04/21 01:26 127 H 102/74 07/04/21 01:25 127 H 15 102/74 07/04/21 01:00 128 H 23 78/59 L 07/04/21 00:52 126 H 78/59 L 07/04/21 00:43 97 H 21 87/57 L 07/04/21 00:25 130 H 07/04/21 00:03 101/64 07/04/21 00:00 117 H 21 101/64 07/03/21 23:59 36.8 C 101 H 24 93/62 L 07/03/21 23:58 99 H 17 93/62 L 07/03/21 23:57 135 H 21 89/69 L 07/03/21 23:55 136 H 07/03/21 23:34 100 H 07/03/21 23:00 109 H 18 101/52 L 07/03/21 22:01 126 H 112/66 07/03/21 22:00 125 H 29 H Pulse Ox 07/04/21 07:49 89 L 07/04/21 07:18 97 07/04/21 06:22 92 07/04/21 06:19 90 07/04/21 06:00 91 07/04/21 05:40 90 07/04/21 05:30 90 07/04/21 05:20 92 07/04/21 05:10 92 07/04/21 05:01 93 07/04/21 05:00 93 07/04/21 04:00 91 07/04/21 03:21 07/04/21 03:05 91 07/04/21 03:00 91 07/04/21 02:35 93 07/04/21 02:21 07/04/21 02:00 93 07/04/21 01:41 93 07/04/21 01:26 07/04/21 01:25 93 07/04/21 01:00 91 07/04/21 00:52 07/04/21 00:43 92 07/04/21 00:25 07/04/21 00:03 07/04/21 00:00 92 07/03/21 23:59 91 07/03/21 23:58 91 07/03/21 23:57 90 07/03/21 23:55 07/03/21 23:34 07/03/21 23:00 89 L 07/03/21 22:01 07/03/21 22:00 86 L Laboratory Results Comprehensive Metabolic Panel 07/04/21 07/04/21 Range/Units 02:58 02:58 Sodium 130 L 129 L (136-145) mmol/L Potassium 4.2 4.2 (3.5-5.1) mmol/L Chloride 92 L 92 L (98-107) mmol/L Carbon Dioxide 22 22 (21-32) mmol/L BUN 85 H 86 H (6-23) mg/dl Creatinine 8.45 H* 8.45 H* (0.6-1.4) mg/dl Glucose 185 H 185 H (70-99) mg/dl Calcium 9.4 9.4 (8.5-10.1) mg/dl Intake and Output 07/03/21 07/04/21 07/04/21 22:59 06:59 14:59 Intake Total 360 / 1640 810 / 1640 Output Total 350 / 1338 Balance 810 / 302 Intake: IV 120 / 1160 810 / 1160 Amiodarone / D5w 150 mg In 100 200 / 200 ml @ 600 mls/hr IV NOW STA Rx#: [id number] Doxycycline Hyclate 100 mg In 110 / 220 Dextrose 5% 100 ml @ 50 mls/hr IV BID [facility] Rx#:[id number] Lactated Ringer's 500 ml @ 999 500 / 500 mls/hr IV .Q31M ONE Rx#: [id number] Piperacillin/Tazobactam 4.5 gm 120 / 240 In Dextrose 5% 100 ml @ 200 mls /hr IV Q12H [facility] Rx#:[id number] Oral 240 / 480 Output: Urine 350 / 425 Other: Weight 62.8 kg Diagnostic Findings Telemetry: Atrial fibrillation and atrial flutter overnight, during atrial flutter the rate is quite fast, during atrial fibrillation it is somewhat rapid as well. PG Care Time/CCT Total # of Minutes Spent Total Time Spent with Patient: Total time spent is greater than 50% in coordination of care (as documented) at patient's floor/unit and/or counseling patient: Coding Level of Care Code 48140 Subseq Hosp Care Lvl 3 Diagnoses Paroxysmal atrial flutter I48.92 PAF (paroxysmal atrial fibrillation) I48.0
[2021-07-04] MEDS ORDERED: METOPROLOL TARTRATE 1 MG/ML VIAL IV SCH (10:00)
--- NOTE | 2021-07-04 10:05 | Nephrology Progress Note ---
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 Dialysis has been has regular. His residual renal function has been decreasing lately and as a result BUN creatinine has been staying high. Admitted to the hospital with fall with no fracture, right sided multifocal pneumonia and currently on Zosyn, negative COVID. Peritoneal dialysis has been uneventful, has been having more than 1 L of UF with their flex 1.5%. Blood pressure staying relatively stable. -- had 2.4 L of UF overnight with double flex 1.5%. Since he has been having decent UF with Delflex 1.5%, will continue with that. CCPD tonight with with 5 exchanges, 3 liter dwell volume, feels time 20 minutes and drain time 25 minutes with delflex 1.5% --continue on renal diet, dose medications for GFR less than 10 -- calcitriol to 0.25 mcg MWF, continue Renvela 3 tab TID with meat meal, Boost 1 can TID --Epogen 99259 units x 1 dose given on 07/01/2021 and 07/04/20 Will follow Admission and Anticipated Discharge Date Admission Date: June 30, 2021 Subjective Sisi was seen in ICU this morning.He feels his breathing is slightly better today although his oxygen requirement went up to 7 L. started on amiodarone for a flutter with heart rate around 120's. did not have any bowel movement since admission, although on multiple stool softener and Laxative. Blood pressure relatively low stable. UF around 1 to 1.5 L on Delflex 1.5%, last night UF 2.4 L. Review of Systems Review of Systems: detailed review of system was done and pertinent positives and negatives were mentioned above. Physical Exam Constitutional: WD/WN, vitals as above + ill appearing; no acute distress Eyes: + anicteric sclerae ENMT: Ears: no hearing impairment Neck: normal visual inspection Respiratory: no respiratory distress Auscultation: + crackles ( At right base and mid lung field) Cardiovascular: Rate/Rhythm: regular rate and regular rhythm Heart Sounds: normal S1 and normal S2 Extremities: no edema Musculoskeletal: Extremities: extremities normal to inspection Skin: + turgor decreased and + skin atrophy Neurologic: no focal motor deficits and not confused Psychiatric: Orientation: alert and oriented x 3 Affect: euthymic affect Results & Data ([facility]) Vital Signs (Past 12 Hours) Vital Signs Temp Pulse Pulse Resp BP BP BP 07/04/21 09:00 95 H 26 H 105/70 07/04/21 08:00 138 H 28 H 95/63 L 07/04/21 07:49 36.6 C 136 H 22 97/75 L 07/04/21 07:43 136 H 27 H 97/75 L 07/04/21 07:18 108 H 20 07/04/21 07:00 96 H 17 98/67 L 07/04/21 06:22 94 H 17 94/57 L 07/04/21 06:19 86 15 07/04/21 06:00 126 H 25 H 84/66 L 07/04/21 05:40 92 H 18 07/04/21 05:30 121 H 17 07/04/21 05:20 108 H 16 07/04/21 05:10 123 H 14 07/04/21 05:01 122 H 15 95/67 L 07/04/21 05:00 122 H 20 07/04/21 04:00 119 H 19 99/76 L 07/04/21 03:21 93 H 07/04/21 03:05 120 H 18 99/71 L 07/04/21 03:00 121 H 20 07/04/21 02:35 120 H 15 92/64 L 07/04/21 02:21 115 H 99/70 L 07/04/21 02:00 126 H 17 99/70 L 07/04/21 01:41 127 H 14 105/69 07/04/21 01:26 127 H 102/74 07/04/21 01:25 127 H 15 102/74 07/04/21 01:00 128 H 23 78/59 L 07/04/21 00:52 126 H 78/59 L 07/04/21 00:43 97 H 21 87/57 L 07/04/21 00:25 130 H 07/04/21 00:03 101/64 07/04/21 00:00 117 H 21 101/64 07/03/21 23:59 36.8 C 101 H 24 93/62 L 07/03/21 23:58 99 H 17 93/62 L 07/03/21 23:57 135 H 21 89/69 L 07/03/21 23:55 136 H 07/03/21 23:34 100 H 07/03/21 23:00 109 H 18 101/52 L Pulse Ox 07/04/21 09:00 89 L 07/04/21 08:00 89 L 07/04/21 07:49 89 L 07/04/21 07:43 87 L 07/04/21 07:18 97 07/04/21 07:00 91 07/04/21 06:22 92 07/04/21 06:19 90 07/04/21 06:00 91 07/04/21 05:40 90 07/04/21 05:30 90 07/04/21 05:20 92 07/04/21 05:10 92 07/04/21 05:01 93 07/04/21 05:00 93 07/04/21 04:00 91 07/04/21 03:21 07/04/21 03:05 91 07/04/21 03:00 91 07/04/21 02:35 93 07/04/21 02:21 07/04/21 02:00 93 07/04/21 01:41 93 07/04/21 01:26 07/04/21 01:25 93 07/04/21 01:00 91 07/04/21 00:52 07/04/21 00:43 92 07/04/21 00:25 07/04/21 00:03 07/04/21 00:00 92 07/03/21 23:59 91 07/03/21 23:58 91 07/03/21 23:57 90 07/03/21 23:55 07/03/21 23:34 07/03/21 23:00 89 L PG Care Time/CCT Total # of Minutes Spent Total Time Spent with Patient: Total time spent is greater than 50% in coordination of care (as documented) at patient's floor/unit and/or counseling patient: Coding Level of Care Code 63950 Subseq Hosp Care Lvl 3 Diagnoses End-stage renal disease on peritoneal dialysis N18.6; Z99.2 HTN (hypertension) I10 Hypertension type: unspecified PNA (pneumonia) J18.9 Laterality: bilateral Lung location: unspecified part of lung Pneumonia type: due to unspecified organism (1) HTN (hypertension) Hypertension type: unspecified Qualified Code(s): I10 - Essential (primary) hypertension (2) PNA (pneumonia) Laterality: bilateral Lung location: unspecified part of lung Pneumonia type: due to unspecified organism Qualified Code(s): J18.9 - Pneumonia, unspecified organism
--- NOTE | 2021-07-04 10:29 | Hospitalist Progress Note ---
Date of Service July 04, 2021 Assessment & Plan (1) Sepsis: Plan: 2nd to #2. resolving. wbc count normalized. CRP had been 44; now 20 today. Blood and sputum cultures are negative. Cont zosyn. Day #5. Doxycycline 100mg BID in koffi for atypical coverage. Day #2. COVID, RSV, flu testing negative. (2) Multifocal pneumonia: Plan: Improving clinically - lung exam is improved, CRP is down significantly, no fevers, appetite better, strength is better. Cont Zosyn - day #5. Leave until tomorrow then can likely narrow the spectrum whether IV/PO. Continue doxycycline, day #2. had received 2 doses of zithromax prior to the doxycycline. Cont supportive care. Cont pulmonary toilet. Treat COPD exacerbation. I had on-call pulmonary review his CT scan - lobar pneumonia present; no locu lated gas. He will need repeat CT chest in 6-8 weeks, however, to re-evaluate the right lung. (3) PAF (paroxysmal atrial fibrillation): Plan: Multiple episodes since admission. He does seem symptomatic from such. Responds nicely to lopressor for rate control, but BPs are low-normal, and AV jose eduardo agents may be difficult to continue. Likely NOT an anticoagulation candidate given prior cerebral aneurysm w rupture. He also has a 2nd aneurysm on prior CTA head. Appreciate cardiology consult and recs. PO amiodarone 200mg TID started 07/03/21. Ongoing runs of meaghan/pool - spoke with Dr Stokes - start amiodarone infusion at 0.5mg/min; ok to cont the PO amiodarone. Best option is to try to keep him in NSR since we cannot anticoagulate. (4) Paroxysmal atrial flutter: Plan: 2:1 conduction. Good response to lopressor IV, but ongoing use of such may be challenging due to low-normal BPs. See #3 above. (5) Acute respiratory failure with hypoxia: Plan: Secondary to pneumonia. Cont NC O2 or oxymask. Sats in low 90s given his COPD are acceptable. Cont Schedule nebs qid. Cont IV abx. Cont IV steroids. Slight increase in FiO2 requirements today, but he looks better than yesterday and feels much better. (6) COPD (chronic obstructive pulmonary disease): Plan: with exacerbation. Solumedrol 40mg IV BID started 07/03. Due to clinical improvement and less wheezing - lower dose to 30mg IV BID. Cont albuterol nebs qid. Cont Flutter valve and incentive mark. Mucinex BID. Cont home inhalers. NC O2. Sats 90-92% are acceptable on supplemental O2. (7) HTN (hypertension): Plan: Dr Stokes placing him on lopressor 2.5mg IV q6h for #3/#4 which will also Rx his HTN. (8) End-stage renal disease on peritoneal dialysis: Plan: Appreciate [facility] nephrology for peritoneal dialysis management. Continue sevelamer. Volume status looks appropriate/euvolemic. (9) Fall: Plan: Just prior to admission. 2nd to weakness in setting of sepsis/pneumonia. PT, OT when able. Fortunately no bony injuries from this fall. I spoke with nursing - hoping to get him OOB to chair today. (10) Chest pain: Plan: he struck his chest when he fell at home in the bathroom. pain is primarily over the right chest. he also is having a component of pleuritic pain on the right c/w the location of his pneumonia. treat the pain as needed. CT chest did not show bony injury/rib fractures. minimal troponin rise - likely myocardial demand ischemia rather than ACS. (11) Tobacco use disorder: Plan: declines nicoderm patch outreach counselor to quit (12) Tremor: Plan: per the EMR this is chronic. acute illness will make the tremor worse. No Rx at this time but could consider primidone or similar as outpatient. (13) DVT prophylaxis: Plan: heparin 5000 BID (14) Metabolic encephalopathy: Plan: resolved (15) History of cerebral aneurysm repair: Plan: early , at [facility] previous CTA head with small 3x4mm aneurysm nothing to do at this time (16) Abnormal EKG: Plan: mild ST segment elevation in lead I, inferior leads, and minimally the anterior leads when he was in rapid a.fib never had ischemic symptoms troponin scantly elevated repeat EKG this am - minimal ST segment elevation inferior leads EKG findings not c/w acute VT troponin not c/w STEMI (17) Elevated troponin: Plan: likely myocardial demand ischemia from rapid a.fib/flutter, sepsis, and pneumonia doubt ACS Plan: left message for Jenny his daughter last evening will attempt to call her today and give her update Admission and Anticipated Discharge Date Admission Date: June 30, 2021 Subjective events of overnight noted converted back into a.flutter and some fib; mainly flutter amiodarone 150mg IV x 2 doses given overnight multiple doses of IV lopressor also given rates this am still high I spoke with Dr Stokes - plan - start amiodarone drip at 0.5mg/min; cont PO amiodarone during my rounds patient states he slept well overnight ate a decent breakfast "I feel better today" more energy legs/arms feel stronger tremors are better - was able to feed himself today cough - some sputum but no hemoptysis "I'm not huffing and puffing as much" no chest pain no abd pain Review of Systems Review of Systems: gen - no fevers or chills cv - no orthopnea pulm - no dyspnea at rest GI - constipation; no N/V musculo - less aches neuro - generalized weakness is better Physical Exam Physical Exam: gen - looks better today; tachypnea improved; constitution seems better today HENT - MMM, no thrush neck - no JVD heart - regular rate, irregular, s1 s2, 1/6 systolic murmur RUSB lungs - improved airation right base, mild rales right base; b/l wheezes improved today; tachypnea resolved; scant rales L base abd - soft, PD catheter c/d/i, NT, BS+, no HSM ext - pulses 2+ b/l, no edema neuro - less tremors of arms today; strength 5/5 of b/l legs; left arm strength 5/5; right arm strength 4-5/5 (mainly due to R shoulder pain) psych - very awake, very alert Results & Data Results & Data ([facility]) Vital Signs (Past 12 Hours) Vital Signs Temp Pulse Pulse Resp BP BP BP 07/04/21 09:00 95 H 26 H 105/70 07/04/21 08:00 138 H 28 H 95/63 L 07/04/21 07:49 36.6 C 136 H 22 97/75 L 07/04/21 07:43 136 H 27 H 97/75 L 07/04/21 07:18 108 H 20 07/04/21 07:00 96 H 17 98/67 L 01/14/22 06:22 94 H 17 94/57 L 07/04/21 06:19 86 15 07/04/21 06:00 126 H 25 H 84/66 L 07/04/21 05:40 92 H 18 07/04/21 05:30 121 H 17 07/04/21 05:20 108 H 16 07/04/21 05:10 123 H 14 07/04/21 05:01 122 H 15 95/67 L 07/04/21 05:00 122 H 20 07/04/21 04:00 119 H 19 99/76 L 07/04/21 03:21 93 H 07/04/21 03:05 120 H 18 99/71 L 07/04/21 03:00 121 H 20 07/04/21 02:35 120 H 15 92/64 L 07/04/21 02:21 115 H 99/70 L 07/04/21 02:00 126 H 17 99/70 L 07/04/21 01:41 127 H 14 105/69 07/04/21 01:26 127 H 102/74 07/04/21 01:25 127 H 15 102/74 07/04/21 01:00 128 H 23 78/59 L 07/04/21 00:52 126 H 78/59 L 07/04/21 00:43 97 H 21 87/57 L 07/04/21 00:25 130 H 07/04/21 00:03 101/64 07/04/21 00:00 117 H 21 101/64 07/03/21 23:59 36.8 C 101 H 24 93/62 L 07/03/21 23:58 99 H 17 93/62 L 07/03/21 23:57 135 H 21 89/69 L 07/03/21 23:55 136 H 07/03/21 23:34 100 H 07/03/21 23:00 109 H 18 101/52 L Pulse Ox 07/04/21 09:00 89 L 07/04/21 08:00 89 L 07/04/21 07:49 89 L 07/04/21 07:43 87 L 07/04/21 07:18 97 07/04/21 07:00 91 07/04/21 06:22 92 07/04/21 06:19 90 07/04/21 06:00 91 07/04/21 05:40 90 07/04/21 05:30 90 07/04/21 05:20 92 07/04/21 05:10 92 07/04/21 05:01 93 07/04/21 05:00 93 07/04/21 04:00 91 07/04/21 03:21 07/04/21 03:05 91 07/04/21 03:00 91 07/04/21 02:35 93 07/04/21 02:21 07/04/21 02:00 93 07/04/21 01:41 93 07/04/21 01:26 07/04/21 01:25 93 07/04/21 01:00 91 07/04/21 00:52 07/04/21 00:43 92 07/04/21 00:25 07/04/21 00:03 07/04/21 00:00 92 07/03/21 23:59 91 07/03/21 23:58 91 07/03/21 23:57 90 07/03/21 23:55 07/03/21 23:34 07/03/21 23:00 89 L Laboratory Results Laboratory Results - last 24 hr 07/04/21 07/04/21 02:58 02:58 Sodium 130 L 129 L Potassium 4.2 4.2 Chloride 92 L 92 L Carbon Dioxide 22 22 Anion Gap 16 H 15 H BUN 85 H 86 H Creatinine 8.45 H* 8.45 H* Est Cr Clr Drug Dosing 7.2 7.2 Est GFR ( Amer) 6.7 6.7 Est GFR (Non-Af Amer) 5.8 5.8 BUN/Creatinine Ratio 10.1 10.2 Glucose 185 H 185 H Calcium 9.4 9.4 Phosphorus 6.3 H Magnesium 1.9 C-Reactive Protein 20.77 H Diagnostic Findings blood cx's negative PG Care Time/CCT Total # of Minutes Spent Total Time Spent with Patient: Total time spent is greater than 50% in coordination of care (as documented) at patient's floor/unit and/or counseling patient: Coding Level of Care Code 23980 Subseq Hosp Care Lvl 3 Diagnoses Sepsis A41.9 Multifocal pneumonia J18.9 PAF (paroxysmal atrial fibrillation) I48.0 Paroxysmal atrial flutter I48.92 Acute respiratory failure with hypoxia J96.01 COPD (chronic obstructive pulmonary disease) J44.9 COPD type: unspecified COPD HTN (hypertension) I10 Hypertension type: unspecified End-stage renal disease on peritoneal dialysis N18.6; Z99.2 Fall W19.XXXA Chest pain R07.9 Chest pain type: unspecified Tobacco use disorder F17.200 Tremor R25.1 DVT prophylaxis Z29.9 Metabolic encephalopathy G93.41 History of cerebral aneurysm repair Z98.890; Z86.79 Abnormal EKG R94.31 Elevated troponin R77.8 (1) COPD (chronic obstructive pulmonary disease) COPD type: unspecified COPD Qualified Code(s): J44.9 - Chronic obstructive pulmonary disease, unspecified (2) Chest pain Chest pain type: unspecified Qualified Code(s): R07.9 - Chest pain, unspecified (3) HTN (hypertension) Hypertension type: unspecified Qualified Code(s): I10 - Essential (primary) hypertension
[2021-07-04] MEDS: PIPERACILLIN/TAZOBACTAM 4.5 GM in DEXTROSE 5% 100 ML IV SCH ×2 (10:52→20:21)
[2021-07-04 12:47] LABS: Estimated Average Glucose 120 mg/dl; Hemoglobin A1C 5.8 % (4.5-5.6)
[2021-07-04] MEDS: ADVANCED PROBIOTIC 1250 MG CAPSULE PO SCH (13:43)
[2021-07-04] MEDS: METOPROLOL TARTRATE 1 MG/ML VIAL IV SCH (17:29)
--- NOTE | 2021-07-04 18:16 | Electrocardiogram Report ---
Test Reason : Blood Pressure : / mmHG Vent. Rate : 078 BPM Atrial Rate : 078 BPM P-R Int : 200 ms QRS Dur : 076 ms QT Int : 384 ms P-R-T Axes : 050 -09 -09 degrees QTc Int : 437 ms Poor data quality, interpretation may be adversely affected Normal sinus rhythm Nonspecific ST abnormality Abnormal ECG When compared with ECG of 02-JUL-2021 02:43, Sinus rhythm has replaced Atrial fibrillation Questionable change in QRS duration Confirmed by Quinn Stokes ([id number]) on 07/04/2021 6:16:17 PM Referred By: REFERRED SELF Confirmed By:Quinn Stokes
[2021-07-04] MEDS: GABAPENTIN 100 MG CAP PO SCH (20:26)
[2021-07-04] MEDS: methylPREDNISolone 30 MG in SYRINGE 0 ML IV SCH (20:26)
[2021-07-05] MEDS: METOPROLOL TARTRATE 1 MG/ML VIAL IV SCH ×4 (00:05→17:31)
[2021-07-05 05:30] LABS: Hematocrit (blood only) 32.2 % (42-52); Hemoglobin 10.6 g/dL (14.0-18.0); Mean Corpuscular Hgb Conc 32.9 g/dL (32-36); Mean Corpuscular Volume 91.2 fL (80-100); Mean Platelet Volume 10.1 fL (7.4-10.4); Platelet Count 497 K/uL (130-400); RDW Coefficient of Variation 15.1 % (11.5-14.5); RDW Standard Deviation 50.4 fL (36.4-46.3); Red Blood Count 3.53 M/uL (4.7-6.1); White Blood Count 17.37 K/uL (4.8-10.8)
[2021-07-05 06:01] LABS: BUN Creatinine Ratio 10.4 (10-20); Calcium 9.4 mg/dl (8.5-10.1); Creatinine Clr Calc Pharmacy 7.9 ml/min; Est GFR (African American) 7.3 ml/min; Est GFR (Non-African American) 6.3 ml/min
[2021-07-05] MEDS: ALBUT/IPRATROP 3MG/0.5MG NEB 3 ML VIAL INH SCH ×4 (07:21→19:55)
[2021-07-05] MEDS: AMIODARONE / D5W 360 MG/200 ML BAG IV SCH (07:31)
[2021-07-05] MEDS: ADVANCED PROBIOTIC 1250 MG CAPSULE PO SCH (07:32)
[2021-07-05] MEDS: methylPREDNISolone 30 MG in SYRINGE 0 ML IV SCH (07:32)
[2021-07-05] MEDS: POLYETHYLENE (MIRALAX) 17 GM PACK PO SCH ×2 (07:32→20:30)
[2021-07-05] MEDS: SENNA 8.6 MG TAB PO SCH (07:32)
[2021-07-05] MEDS: HEPARIN SOD 5,000 UNIT/0.5 ML VIAL SQ SCH ×2 (07:33→20:30)
[2021-07-05] MEDS: DOXYCYCLINE HYCLATE 100 MG in DEXTROSE 5% 100 ML IV SCH ×2 (07:33→20:28)
[2021-07-05] MEDS: guaiFENesin 600 MG TABCR PO SCH ×2 (07:33→20:29)
[2021-07-05] MEDS: SEVELAMER HCL 800 MG TABLET PO SCH ×3 (07:33→17:31)
[2021-07-05] MEDS: CETIRIZINE HCL 10 MG TABLET PO SCH (07:33)
[2021-07-05] MEDS: PIPERACILLIN/TAZOBACTAM 4.5 GM in DEXTROSE 5% 100 ML IV SCH ×2 (07:34→19:40)
[2021-07-05] MEDS: UMECLIDINIUM/VILANTEROL 62.5/25MCG 7 PUFFS/INHALER INH SCH (07:34)
[2021-07-05] MEDS: AMIODARONE 200 MG TAB PO SCH ×3 (07:34→17:31)
--- NOTE | 2021-07-05 07:56 | Hospitalist Progress Note ---
Date of Service July 05, 2021 Assessment & Plan (1) Sepsis: Plan: 2nd to #2. resolving. wbc count up slightly at 17k, due to Solu Medrol?, no fever CRP had been 44; now 20 today. Blood and sputum cultures are negative. Cont zosyn. Day #6 Doxycycline 100mg BID in koffi for atypical coverage. Day #3 COVID, RSV, flu testing negative. (2) Multifocal pneumonia: Plan: Improving clinically - lung exam is improved, CRP is down significantly, no fevers, appetite better, strength is better. Cont Zosyn - day #6 of 7 Continue doxycycline, day #3 Cont supportive care. Cont pulmonary toilet. Treat COPD exacerbation. He will need repeat CT chest in 6-8 weeks he has lobar pneumonia, but not loculated, no air pockets (3) PAF (paroxysmal atrial fibrillation): Plan: Multiple episodes since admission. He does seem symptomatic from such. Responds nicely to lopressor for rate control, but BPs are low-normal, and AV jose eduardo agents may be difficult to continue. Likely NOT an anticoagulation candidate given prior cerebral aneurysm w rupture (HIGH RISK) He also has a 2nd aneurysm on prior CTA head. Appreciate cardiology consult and recs. PO amiodarone 200mg TID started 07/03/21, continue drip today per Dr. Ramirez and attempt to stop drip tomorrow Best option is to try to keep him in NSR since we cannot anticoagulate. (4) Paroxysmal atrial flutter: Plan: 2:1 conduction. Good response to lopressor IV, but ongoing use of such may be challenging due to low-normal BPs. continue Amiodarone See #3 above. (5) Acute respiratory failure with hypoxia: Plan: Secondary to pneumonia. Cont NC O2 or oxymask. Sats in low 90s given his COPD are acceptable. Cont Schedule nebs qid. Cont IV abx. Cont IV steroids, Solu Medrol 30q12, cut to 20 q12 today stable on 5L (6) COPD (chronic obstructive pulmonary disease): Plan: with exacerbation. Solumedrol 40mg IV BID started 07/03. Due to clinical improvement and less wheezing - lower dose to 20mg IV BID. Cont albuterol nebs qid. Cont Flutter valve and incentive mark. Mucinex BID. Cont home inhalers. NC O2. Sats 90-92% are acceptable on supplemental O2. (7) HTN (hypertension): Plan: Dr Stokes placing him on lopressor 2.5mg IV q6h for #3/#4 which will also Rx his HTN. (8) End-stage renal disease on peritoneal dialysis: Plan: Appreciate [facility] nephrology for peritoneal dialysis management. Continue sevelamer. Volume status looks appropriate/euvolemic. (9) Fall: Plan: Just prior to admission. 2nd to weakness in setting of sepsis/pneumonia. PT, OT when able. Fortunately no bony injuries from this fall. (10) Chest pain: Plan: he struck his chest when he fell at home in the bathroom. pain is primarily over the right chest. he also is having a component of pleuritic pain on the right c/w the location of his pneumonia. treat the pain as needed. CT chest did not show bony injury/rib fractures. minimal troponin rise - likely myocardial demand ischemia rather than ACS. (11) Tobacco use disorder: Plan: declines nicoderm patch financial services counselor to quit (12) Tremor: Plan: per the EMR this is chronic. acute illness will make the tremor worse. No Rx at this time but could consider primidone or similar as outpatient. (13) DVT prophylaxis: Plan: heparin 5000 BID (14) Metabolic encephalopathy: Plan: resolved (15) History of cerebral aneurysm repair: Plan: early , at [facility] previous CTA head with small 3x4mm aneurysm nothing to do at this time (16) Abnormal EKG: Plan: mild ST segment elevation in lead I, inferior leads, and minimally the anterior leads when he was in rapid a.fib never had ischemic symptoms troponin scantly elevated repeat EKG this am - minimal ST segment elevation inferior leads EKG findings not c/w acute MN troponin not c/w STEMI (17) Elevated troponin: Plan: likely myocardial demand ischemia from rapid a.fib/flutter, sepsis, and pneumonia doubt ACS Admission and Anticipated Discharge Date Admission Date: June 30, 2021 Subjective patient having a good day he is breathing easier, eating better, had a BM today and last night no fever, he has an intermittent cough with yellow sputum appreciate note from Dr. Ramirez, keep on Amio drip today appreciate note from Dr. Cordon, tolerating PD well, plan for session this evening Review of Systems Review of Systems: All systems reviewed & are unremarkable except as noted in Subjective Physical Exam Physical Exam: General: well developed, thin male, no acute distress, comfortable Neck: supple, trachea midline, normal thyroid Lungs: clear to auscultation bilaterally, no wheezing, normal respiratory effort, no accessory muscle use, no distress, + barrel chested Heart: regular S1 and S2, no murmur, peripheral pulses normal, capillary refill normal, no edema Abdomen: soft, NT, ND, + BS, no hepatomegaly, normal to percussion Extremities: normal in appearance, no cyanosis, no petechiae, strength is 5/5 bilaterally Neuro: awake, cooperative, moves all extremities, no focal motor deficits, CN II-XII intact, sensation in extremities intact, normal speech Skin: warm, dry, no rash, normal turgor Psych: Awake, alert oriented x 3, euthymic affect Results & Data Results & Data ([facility]) Vital Signs (Past 12 Hours) Vital Signs Temp Pulse Pulse Resp BP BP BP 07/05/21 07:24 64 18 07/05/21 05:23 91 H 109/83 07/05/21 04:30 36.4 C L 91 H 17 109/83 07/05/21 01:49 85 07/05/21 00:05 128 H 110/62 07/05/21 00:00 36.4 C L 129 H 16 110/62 07/04/21 19:58 36.3 C L 118 H 18 99/61 L 07/04/21 19:56 109 H 22 Pulse Ox 07/05/21 07:24 99 07/05/21 05:23 07/05/21 04:30 93 07/05/21 01:49 07/05/21 00:05 07/05/21 00:00 94 07/04/21 19:58 94 07/04/21 19:56 89 L Laboratory Results Laboratory Results - last 24 hr 07/03/21 07/05/21 07/05/21 05:32 05:18 05:18 WBC 17.37 H RBC 3.53 L Hgb 10.6 L Hct 32.2 L MCV 91.2 MCH 30.0 MCHC 32.9 RDW Std Deviation 50.4 H RDW Coeff of Giovana 15.1 H Plt Count 497 H MPV 10.1 Sodium 130 L Potassium 4.0 Chloride 91 L Carbon Dioxide 23 Anion Gap 16 H BUN 81 H Creatinine 7.81 H* D Est Cr Clr Drug Dosing 7.9 Est GFR ( Amer) 7.3 Est GFR (Non-Af Amer) 6.3 BUN/Creatinine Ratio 10.4 Glucose 170 H Estimat Average Glucose 120 Hemoglobin A1c 5.8 H Calcium 9.4 Medications Administered Current Inpatient Medications Acetaminophen (Acetaminophen 325 Mg Tab) 650 mg PO Q4H PRN PRN Reason: Pain or Fever Stop: 07/30/21 12:54 Last Admin: 07/03/21 22:01 Dose: 650 mg Documented by: Albuterol (Albut/Ipratrop 3mg/0.5mg Neb 3 Ml Vial) 3 ml INH QIDR [facility]; Protocol Stop: 07/31/21 10:59 Last Admin: 07/05/21 07:21 Dose: 3 ml Documented by: Amiodarone HCl (Amiodarone 200 Mg Tab) 200 mg PO TIDM [facility] Stop: 08/02/21 16:59 Last Admin: 07/05/21 07:34 Dose: 200 mg Documented by: Calcitriol (Calcitriol 0.25 Mcg Capsule) 0.25 mcg PO MoWeFr@0900 [facility] Stop: 08/03/21 08:59 Last Admin: 07/04/21 08:35 Dose: 0.25 mcg Documented by: Cetirizine HCl (Cetirizine Hcl 10 Mg Tablet) 10 mg PO QAM [facility] Stop: 07/30/21 12:54 Last Admin: 07/05/21 07:33 Dose: 10 mg Documented by: Gabapentin (Gabapentin 100 Mg Cap) 100 mg PO HS [facility] Stop: 07/30/21 20:59 Last Admin: 07/04/21 20:26 Dose: 100 mg Documented by: Guaifenesin (Guaifenesin 600 Mg Tabcr) 600 mg PO BID [facility] Stop: 07/30/21 12:54 Last Admin: 07/05/21 07:33 Dose: 600 mg Documented by: Heparin Sodium (Porcine) (Heparin Sod 5,000 Unit/0.5 Ml Vial) 5,000 units SQ BID [facility] Stop: 07/30/21 20:59 Last Admin: 07/05/21 07:33 Dose: 5,000 units Documented by: Doxycycline Hyclate 100 mg/ (Dextrose) 110 mls @ 50 mls/hr IV BID [facility] Stop: 07/10/21 08:59 Last Admin: 07/05/21 07:33 Dose: 50 mls/hr Documented by: Piperacillin Sod/Tazobactam (Sod 4.5 gm/ Dextrose) 120 mls @ 200 mls/hr IV Q12H [facility]; Protocol Stop: 07/07/21 19:59 Last Admin: 07/05/21 07:34 Dose: 200 mls/hr Documented by: Amiodarone HCl/Dextrose (Nexterone / D5w) 360 mg in 200 mls @ 16.667 mls/hr IV .Q12H [facility] Stop: 08/03/21 08:29 Last Admin: 07/05/21 07:31 Dose: 0.5 mg/min, 16.7 mls/hr Documented by: Methylprednisolone 30 mg/ (Syringe) 0.48 mls @ 1.5 mls/min IV BID [facility] Stop: 08/03/21 20:59 Last Admin: 07/05/21 07:32 Dose: 1.5 mls/min Documented by: Lactobacillus Acidoph/Casei/Rhamnos (Advanced Probiotic 1250 Mg Capsule) 2 cap PO DAILY [facility] Stop: 08/03/21 10:59 Last Admin: 07/05/21 07:32 Dose: 2 cap Documented by: Metoprolol Tartrate (Metoprolol Tartrate 1 Mg/Ml Vial) 5 mg IV Q6 [facility] Stop: 08/03/21 17:59 Last Admin: 07/05/21 05:23 Dose: 5 mg Documented by: Miscellaneous Information (Piperacill/Tazobac Consult Active) 1 ea N/A UD PRN PRN Reason: Consult Stop: 07/30/21 08:14 Ondansetron HCl (Ondansetron Inj 2 Mg/Ml 2 Ml Vial) 4 mg IV Q6H PRN PRN Reason: Nausea Stop: 07/30/21 12:54 Polyethylene Glycol (Polyethylene (Miralax) 17 Gm Pack) 17 gm PO BID [facility] Stop: 07/30/21 20:59 Last Admin: 07/05/21 07:32 Dose: 17 gm Documented by: Polyethylene Glycol (Polyethylene (Miralax) 17 Gm Pack) 17 gm PO DAILY PRN PRN Reason: Constipation Stop: 07/30/21 12:54 Sennosides (Senna 8.6 Mg Tab) 17.2 mg PO QAM [facility] Stop: 08/02/21 11:14 Last Admin: 07/05/21 07:32 Dose: 17.2 mg Documented by: Sevelamer HCl (Sevelamer Hcl 800 Mg Tablet) 2,400 mg PO TIDM [facility] Stop: 07/30/21 16:59 Last Admin: 07/05/21 07:33 Dose: 2,400 mg Documented by: Umeclidinium/Vilanterol (Umeclidinium/Vilanterol 62.5/25mcg 7 Puffs/Inhaler) 1 puffs INH QAM [facility] Stop: 07/31/21 08:59 Last Admin: 07/05/21 07:34 Dose: 1 puffs Documented by: PG Care Time/CCT Total # of Minutes Spent Total Time Spent with Patient: Total time spent is greater than 50% in coordination of care (as documented) at patient's floor/unit and/or counseling patient: Coding Level of Care Code 11219 Subseq Hosp Care Lvl 3 Diagnoses Sepsis A41.9 Multifocal pneumonia J18.9 PAF (paroxysmal atrial fibrillation) I48.0 Paroxysmal atrial flutter I48.92 Acute respiratory failure with hypoxia J96.01 COPD (chronic obstructive pulmonary disease) J44.9 COPD type: unspecified COPD HTN (hypertension) I10 Hypertension type: unspecified End-stage renal disease on peritoneal dialysis N18.6; Z99.2 Fall W19.XXXA Chest pain R07.9 Chest pain type: unspecified Tobacco use disorder F17.200 Tremor R25.1 DVT prophylaxis Z29.9 Metabolic encephalopathy G93.41 History of cerebral aneurysm repair Z98.890; Z86.79 Abnormal EKG R94.31 Elevated troponin R77.8 (1) COPD (chronic obstructive pulmonary disease) COPD type: unspecified COPD Qualified Code(s): J44.9 - Chronic obstructive pulmonary disease, unspecified (2) Chest pain Chest pain type: unspecified Qualified Code(s): R07.9 - Chest pain, unspecified (3) HTN (hypertension) Hypertension type: unspecified Qualified Code(s): I10 - Essential (primary) hypertension
--- NOTE | 2021-07-05 10:11 | Nephrology Progress Note ---
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 Maintained on CCPD. Admitted s/p fall with right sided multifocal pneumonia. PD clearances have been acceptable. Tolerating HD well. Rx 1.5% Deflex x 5 exchanges of 2 L dwell. Calcitriol to 0.25 mcg MWF, continue Renvela 3 tab TID with meat meal, Boost 1 can TID Epogen 56248 units x 1 dose given on 07/01/2021 and 07/04/20 Medications are appropriately dosed for PD. (2) HTN (hypertension): Plan: Volume status acceptable. BP running slightly low but acceptable following adjustement per cardiology. Amio gtt infusing. (3) PNA (pneumonia): Plan: Medications appropriate for PD. Admission and Anticipated Discharge Date Admission Date: June 30, 2021 Subjective No acute events overnight. Tolerated complete PD treatment without complications. No fevers or chills. No chest pain or palpitations. Sisi reports some improvement in breathing. Review of Systems Review of Systems: All systems reviewed & are unremarkable except as noted in HPI & below Physical Exam Constitutional: well developed and + thin; no acute distress Eyes: no scleral abnormality and no corneal abnormality ENMT: Mouth: no oral mucosal abnormality and oral mucous membranes not dry Neck: normal visual inspection and trachea midline Respiratory: + tachypneic Auscultation: lungs clear to auscultation bilaterally Cardiovascular: Rate/Rhythm: + tachycardic Heart Sounds: normal S1 and normal S2 Extremities: no edema Gastrointestinal (Abdomen): Percussion/Palpation: abdomen nontender PD catheter exit site clean Musculoskeletal: Extremities: no cyanosis and no clubbing Skin: normal turgor; no lesions Neurologic: Motor/Sensory: no tremor and no asterixis Psychiatric: Orientation: alert and oriented x 3 Results & Data ([facility]) Vital Signs (Past 12 Hours) Vital Signs Temp Pulse Pulse Resp BP BP BP 07/05/21 09:06 63 07/05/21 08:01 36.5 C 105 H 18 07/05/21 07:24 64 18 07/05/21 05:23 91 H 109/83 07/05/21 04:30 36.4 C L 91 H 17 109/83 07/05/21 01:49 85 07/05/21 00:05 128 H 110/62 07/05/21 00:00 36.4 C L 129 H 16 110/62 Pulse Ox 07/05/21 09:06 07/05/21 08:01 07/05/21 07:24 99 07/05/21 05:23 07/05/21 04:30 93 07/05/21 01:49 07/05/21 00:05 07/05/21 00:00 94 Laboratory Results Laboratory Results - last 24 hr 07/03/21 07/05/21 07/05/21 05:32 05:18 05:18 WBC 17.37 H RBC 3.53 L Hgb 10.6 L Hct 32.2 L MCV 91.2 MCH 30.0 MCHC 32.9 RDW Std Deviation 50.4 H RDW Coeff of Giovana 15.1 H Plt Count 497 H MPV 10.1 Sodium 130 L Potassium 4.0 Chloride 91 L Carbon Dioxide 23 Anion Gap 16 H BUN 81 H Creatinine 7.81 H* D Est Cr Clr Drug Dosing 7.9 Est GFR ( Amer) 7.3 Est GFR (Non-Af Amer) 6.3 BUN/Creatinine Ratio 10.4 Glucose 170 H Estimat Average Glucose 120 Hemoglobin A1c 5.8 H Calcium 9.4 PG Care Time/CCT Total # of Minutes Spent Total Time Spent with Patient: Total time spent is greater than 50% in coordination of care (as documented) at patient's floor/unit and/or counseling patient: Coding Level of Care Code 97476 Subseq Hosp Care Lvl 3 Diagnoses End-stage renal disease on peritoneal dialysis N18.6; Z99.2 HTN (hypertension) I10 Hypertension type: unspecified PNA (pneumonia) J18.9 Laterality: bilateral Lung location: unspecified part of lung Pneumonia type: due to unspecified organism (1) HTN (hypertension) Hypertension type: unspecified Qualified Code(s): I10 - Essential (primary) hypertension (2) PNA (pneumonia) Laterality: bilateral Lung location: unspecified part of lung Pneumonia type: due to unspecified organism Qualified Code(s): J18.9 - Pneumonia, unspecified organism
--- NOTE | 2021-07-05 10:31 | Cardiology Progress Note ---
Date of Service July 05, 2021 Assessment & Plan Admission and Anticipated Discharge Date Admission Date: June 30, 2021 Subjective Patient was seen for Dr. Baptiste. He denies any chest pain chest pressure chest heaviness. He notes his shortness of breath seems to be improving. Denies any lightheadedness or dizziness. He is unaware of any palpitations or fluttering. He denies any chest tightness or chest pressure. He has no lower extremity edema. I did inquire as to whether he has been able to get volume off with his peritoneal dialysis and he notes he just plugs himself and and wakes up in the morning. Results & Data ([facility]) Vital Signs (Past 12 Hours) Vital Signs Temp Pulse Pulse Resp BP BP BP 07/05/21 09:06 63 07/05/21 08:01 36.5 C 105 H 18 07/05/21 07:24 64 18 07/05/21 05:23 91 H 109/83 07/05/21 04:30 36.4 C L 91 H 17 109/83 07/05/21 01:49 85 07/05/21 00:05 128 H 110/62 07/05/21 00:00 36.4 C L 129 H 16 110/62 Pulse Ox 07/05/21 09:06 07/05/21 08:01 07/05/21 07:24 99 07/05/21 05:23 07/05/21 04:30 93 07/05/21 01:49 07/05/21 00:05 07/05/21 00:00 94 He is awake alert and oriented x3 he looks chronically ill HEENT: 2+ carotid upstrokes Lungs: Globally decreased breath sounds no rales rhonchi or wheezing Heart: Irregular rate and rhythm there were no appreciable murmurs Abdomen: Soft nontender nondistended positive bowel sounds Extremities: No clubbing cyanosis or edema IMPRESSIONS: (1) PAF (paroxysmal atrial fibrillation) and Atrial flutter (2) Acute respiratory failure with hypoxia: (3) Pulmonary emphysema: (4) PNA (pneumonia): (5) End-stage renal disease on peritoneal dialys6. 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 I would continue with another 24 hours of IV amiodarone overlapped with p.o. amiodarone. He is receiving 200 mg 3 times daily. At rest his rates have improved when he starts to move around his heart rates in atrial flutter due to increase. We cannot use digoxin given his end-stage renal disease and With his borderline blood pressures and need for peritoneal dialysis the use of AV jose eduardo blockers may be challenging. In reviewing the notes anticoagulation given his history of intracranial hemorrhage has been considered too high risk. Hopefully his rates will continue to remain relatively stable and we can stop his IV amiodarone tomorrow and just leave him on p.o. amiodarone. Overall he appears euvolemic. He notes he had about a 10 pound weight loss at home before he came to the hospital and notes he just had no appetite is unclear as to the etiology of this.
[2021-07-05] MEDS: GABAPENTIN 100 MG CAP PO SCH (20:29)
[2021-07-05] MEDS: methylPREDNISolone 20 MG in SYRINGE 0 ML IV SCH (20:31)
[2021-07-06] MEDS: AMIODARONE / D5W 360 MG/200 ML BAG IV SCH ×2 (00:01→10:38)
[2021-07-06] MEDS: METOPROLOL TARTRATE 1 MG/ML VIAL IV SCH ×2 (00:01→05:57)
[2021-07-06] MEDS: POLYETHYLENE (MIRALAX) 17 GM PACK PO SCH ×2 (08:09→21:29)
[2021-07-06] MEDS: UMECLIDINIUM/VILANTEROL 62.5/25MCG 7 PUFFS/INHALER INH SCH (08:11)
[2021-07-06] MEDS: SENNA 8.6 MG TAB PO SCH (08:11)
[2021-07-06] MEDS: PIPERACILLIN/TAZOBACTAM 4.5 GM in DEXTROSE 5% 100 ML IV SCH ×2 (08:12→20:20)
[2021-07-06] MEDS: CETIRIZINE HCL 10 MG TABLET PO SCH (08:12)
[2021-07-06] MEDS: DOXYCYCLINE HYCLATE 100 MG in DEXTROSE 5% 100 ML IV SCH ×2 (08:12→21:22)
[2021-07-06] MEDS: ADVANCED PROBIOTIC 1250 MG CAPSULE PO SCH (08:12)
[2021-07-06] MEDS: HEPARIN SOD 5,000 UNIT/0.5 ML VIAL SQ SCH ×2 (08:12→21:26)
[2021-07-06] MEDS: AMIODARONE 200 MG TAB PO SCH ×3 (08:12→16:34)
[2021-07-06] MEDS: guaiFENesin 600 MG TABCR PO SCH ×2 (08:12→21:26)
[2021-07-06] MEDS: SEVELAMER HCL 800 MG TABLET PO SCH ×3 (08:12→16:34)
[2021-07-06] MEDS: methylPREDNISolone 20 MG in SYRINGE 0 ML IV SCH ×2 (08:12→21:26)
[2021-07-06] MEDS: ALBUT/IPRATROP 3MG/0.5MG NEB 3 ML VIAL INH SCH ×2 (08:19→19:57)
[2021-07-06 08:20] LABS: Hematocrit (blood only) 34.2 % (42-52); Hemoglobin 11.1 g/dL (14.0-18.0); Mean Corpuscular Hemoglobin 29.4 pg (25-34); Mean Corpuscular Hgb Conc 32.5 g/dL (32-36); Mean Corpuscular Volume 90.7 fL (80-100); Mean Platelet Volume 10.1 fL (7.4-10.4); Platelet Count 524 K/uL (130-400); RDW Coefficient of Variation 15.1 % (11.5-14.5); RDW Standard Deviation 49.6 fL (36.4-46.3); Red Blood Count 3.77 M/uL (4.7-6.1); White Blood Count 13.97 K/uL (4.8-10.8)
[2021-07-06 08:54] LABS: Creatinine Clr Calc Pharmacy 8.4 ml/min; Est GFR (African American) 7.8 ml/min; Est GFR (Non-African American) 6.8 ml/min
[2021-07-06 09:07] LABS: BUN Creatinine Ratio 12.2 (10-20); Calcium 9.1 mg/dl (8.5-10.1); Magnesium 1.9 mg/dl (1.7-2.4); Phosphorus 6.9 mg/dl (2.5-4.9)
--- NOTE | 2021-07-06 11:30 | Cardiology Progress Note ---
Date of Service July 06, 2021 Assessment & Plan Admission and Anticipated Discharge Date Admission Date: June 30, 2021 Subjective He is feeling much better this morning. He notes his shortness of breath has improved. He does describe feeling that he is thirsty and that his mouth is dry. He denies any lightheadedness or dizziness. He denies any chest tightness or chest pressure. He has no lower extremity edema. Results & Data ([facility]) Vital Signs (Past 12 Hours) Vital Signs Temp Pulse Pulse Resp BP BP Pulse Ox 07/06/21 09:07 37.6 C H 68 18 07/06/21 08:43 66 18 96 07/06/21 08:39 36.6 C 67 20 80/59 L 90 07/06/21 05:57 68 98/56 L 07/06/21 04:20 36.4 C L 86 20 109/66 91 07/06/21 00:26 80 07/06/21 00:01 107 H 122/83 He is awake alert and oriented x3 he looks chronically ill HEENT: 2+ carotid upstrokes Lungs: Globally decreased breath sounds no rales rhonchi or wheezing Heart: Irregular rate and rhythm there were no appreciable murmurs Abdomen: Soft nontender nondistended positive bowel sounds Extremities: No clubbing cyanosis or edema; significant decrease skin turgor IMPRESSIONS: (1) PAF (paroxysmal atrial fibrillation) and Atrial flutter (2) Acute respiratory failure with hypoxia: (3) Pulmonary emphysema: (4) PNA (pneumonia): (5) End-stage renal disease on peritoneal dialys6. 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 amiodarone. His blood pressure is low and if you look at his skin turgor which in which he appears very dry as well as he is -1400 cc he probably needs some v olume back. We will wait for nephrology to see him this morning to make a recommendation. In the meantime with his low blood pressure his beta-blockers are being held. Currently there are IV we can switch him over to p.o. with appropriate blood pressure holds. He is not on anticoagulation due to his history of intracranial hemorrhage. Clinically he does not sound like he is in heart failure nor does he look like he is in heart failure. Not any cardiology will return tomorrow to continue his care.
--- NOTE | 2021-07-06 12:53 | Nephrology Progress Note ---
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 Maintained on CCPD. Admitted s/p fall with right sided multifocal pneumonia. PD clearances have been acceptable. Tolerating dialysis well. Rx 1.5% Deflex x 5 exchanges of 2 L dwell. No change to current Rx. Minimal dextrose solution to discourage UF. Calcitriol to 0.25 mcg MWF, continue Renvela 3 tab TID with meat meal, Boost 1 can TID Epogen 59590 units x 1 dose given on 07/01/2021 and 07/04/20 Medications are appropriately dosed for PD. Encourage oral fluids. IVF can be added as needed for orthostatic hypotension or signs of dehydration. (2) HTN (hypertension): Plan: Volume status acceptable. BP running slightly low but acceptable. Out of bed and monitor for orthostatic symptoms. (3) PNA (pneumonia): Plan: Medications appropriate for PD. Admission and Anticipated Discharge Date Admission Date: June 30, 2021 Subjective No acute events overnight. Dyspnea continues to improve. Overall, Sisi feels well. No complications with PD overnight. Tolerating exchanges well. Effluent clear. No chest pain or palpitations. No edema. No fevers or chills. Review of Systems Review of Systems: All systems reviewed & are unremarkable except as noted in HPI & below Physical Exam Constitutional: well developed and + thin; no acute distress Eyes: no scleral abnormality and no corneal abnormality ENMT: Mouth: no oral mucosal abnormality and oral mucous membranes not dry Neck: normal visual inspection and trachea midline Respiratory: normal respiratory effort Auscultation: lungs clear to auscultation bilaterally Cardiovascular: Rate/Rhythm: regular rate Heart Sounds: normal S1 and normal S2 Vessels: + JVD Extremities: no edema Gastrointestinal (Abdomen): Percussion/Palpation: abdomen nontender Musculoskeletal: Extremities: no cyanosis and no clubbing Skin: + turgor decreased; no lesions Neurologic: Motor/Sensory: no tremor and no asterixis Psychiatric: Orientation: alert and oriented x 3 Results & Data ([facility]) Vital Signs (Past 12 Hours) Vital Signs Temp Pulse Pulse Resp BP BP Pulse Ox 07/06/21 12:32 36.5 C 66 18 107/65 92 07/06/21 09:07 37.6 C H 68 18 07/06/21 08:43 66 18 96 07/06/21 08:39 36.6 C 67 20 80/59 L 90 07/06/21 05:57 68 98/56 L 07/06/21 04:20 36.4 C L 86 20 109/66 91 Laboratory Results Laboratory Results - last 24 hr 07/06/21 07/06/21 08:07 08:07 WBC 13.97 H RBC 3.77 L Hgb 11.1 L Hct 34.2 L MCV 90.7 MCH 29.4 MCHC 32.5 RDW Std Deviation 49.6 H RDW Coeff of Giovana 15.1 H Plt Count 524 H MPV 10.1 Sodium 131 L Potassium 4.0 Chloride 92 L Carbon Dioxide 24 Anion Gap 15 H BUN 90 H Creatinine 7.40 H* D Est Cr Clr Drug Dosing 8.4 Est GFR ( Amer) 7.8 Est GFR (Non-Af Amer) 6.8 BUN/Creatinine Ratio 12.2 Glucose 128 H Calcium 9.1 Phosphorus 6.9 H Magnesium 1.9 PG Care Time/CCT Total # of Minutes Spent Total Time Spent with Patient: Total time spent is greater than 50% in coordination of care (as documented) at patient's floor/unit and/or counseling patient: Coding Level of Care Code 85753 Subseq Hosp Care Lvl 3 Diagnoses End-stage renal disease on peritoneal dialysis N18.6; Z99.2 HTN (hypertension) I10 Hypertension type: unspecified PNA (pneumonia) J18.9 Laterality: bilateral Lung location: unspecified part of lung Pneumonia type: due to unspecified organism (1) HTN (hypertension) Hypertension type: unspecified Qualified Code(s): I10 - Essential (primary) hypertension (2) PNA (pneumonia) Laterality: bilateral Lung location: unspecified part of lung Pneumonia type: due to unspecified organism Qualified Code(s): J18.9 - Pneumonia, unspecified organism
--- NOTE | 2021-07-06 14:57 | Hospitalist Progress Note ---
Date of Service July 06, 2021 Assessment & Plan (1) Sepsis: Plan: 2nd to #2. resolving. wbc down to 13k Blood and sputum cultures are negative. Cont zosyn. Day #7 Doxycycline 100mg BID in koffi for atypical coverage. Day #4 COVID, RSV, flu testing negative complete 10 days of antibiotics given lobar pneumonia, need 3 more days (2) Multifocal pneumonia: Plan: Improving clinically - lung exam is improved, CRP is down significantly, no fevers, appetite better, strength is better. Cont Zosyn - day #7 of 10 Continue doxycycline, day #4 of 7 (had 3 days of Zithromax prior) Cont supportive care. Cont pulmonary toilet. Treat COPD exacerbation. He will need repeat CT chest in 6-8 weeks he has lobar pneumonia, but not loculated, no air pockets (3) PAF (paroxysmal atrial fibrillation): Plan: Multiple episodes since admission. He does seem symptomatic from such. Responds nicely to lopressor for rate control, but BPs are low-normal, and AV jose eduardo agents may be difficult to continue. Likely NOT an anticoagulation candidate given prior cerebral aneurysm w rupture (HIGH RISK) He also has a 2nd aneurysm on prior CTA head. Appreciate cardiology consult and recs. PO amiodarone 200mg TID started 07/03/21 amiodarone drip stopped 07/05/21 Best option is to try to keep him in NSR since we cannot anticoagulate. (4) Paroxysmal atrial flutter: Plan: 2:1 conduction. Good response to lopressor IV, but ongoing use of such may be challenging due to low-normal BPs. continue Amiodarone See #3 above. (5) Acute respiratory failure with hypoxia: Plan: Secondary to pneumonia. Cont NC O2 or oxymask. Sats in low 90s given his COPD are acceptable. Cont Schedule nebs qid. Cont IV abx. Cont IV steroids, Solu Medrol 30q12, cut to 20 q12 on 07/04/21 stable on 5L again today (6) COPD (chronic obstructive pulmonary disease): Plan: with exacerbation. Solumedrol 40mg IV BID started 07/03. Due to clinical improvement and less wheezing - lower dose to 20mg IV BID. Cont albuterol nebs qid. Cont Flutter valve and incentive mark. Mucinex BID. Cont home inhalers. NC O2. Sats 90-92% are acceptable on supplemental O2. (7) HTN (hypertension): Plan: metoprolol 12.5mg BID (8) End-stage renal disease on peritoneal dialysis: Plan: Appreciate [facility] nephrology for peritoneal dialysis management. Continue sevelamer. Volume status looks appropriate/euvolemic. (9) Fall: Plan: Just prior to admission. 2nd to weakness in setting of sepsis/pneumonia. PT, OT Fortunately no bony injuries from this fall. (10) Tobacco use disorder: Plan: declines nicoderm patch apprise counselor to quit (11) Tremor: Plan: per the EMR this is chronic. acute illness will make the tremor worse. No Rx at this time but could consider primidone or similar as outpatient. (12) DVT prophylaxis: Plan: heparin 5000 BID (13) Metabolic encephalopathy: Plan: resolved (14) History of cerebral aneurysm repair: Plan: early , at [facility], [place] previous CTA head with small 3x4mm aneurysm nothing to do at this time (15) Abnormal EKG: Plan: mild ST segment elevation in lead I, inferior leads, and minimally the anterior leads when he was in rapid a.fib never had ischemic symptoms troponin scantly elevated repeat EKG this am - minimal ST segment elevation inferior leads EKG findings not c/w acute AL troponin not c/w STEMI (16) Elevated troponin: Plan: likely myocardial demand ischemia from rapid a.fib/flutter, sepsis, and pneumon ia doubt ACS Admission and Anticipated Discharge Date Admission Date: June 30, 2021 Subjective patient doing well, stable on 5L, eating well off amiodarone drip BP stable, no fever had a BM yesterday, nothing today did not get OOB today Review of Systems Review of Systems: All systems reviewed & are unremarkable except as noted in Subjective Constitutional: + fatigue and + weakness Respiratory: + cough and + dyspnea on exertion; no sputum production Physical Exam Physical Exam: General: well developed, thin male, no acute distress, comfortable Neck: supple, trachea midline, normal thyroid Lungs: clear to auscultation bilaterally, no wheezing, normal respiratory effort, no accessory muscle use, no distress, + barrel chested Heart: regular S1 and S2, no murmur, peripheral pulses normal, capillary refill normal, no edema Abdomen: soft, NT, ND, + BS, no hepatomegaly, normal to percussion Extremities: normal in appearance, no cyanosis, no petechiae, strength is 5/5 bilaterally Neuro: awake, cooperative, moves all extremities, no focal motor deficits, CN II-XII intact, sensation in extremities intact, normal speech Skin: warm, dry, no rash, normal turgor Psych: Awake, alert oriented x 3, euthymic affect Results & Data Results & Data ([facility]) Vital Signs (Past 12 Hours) Vital Signs Temp Pulse Pulse Resp BP BP Pulse Ox 07/06/21 12:32 36.5 C 66 18 107/65 92 07/06/21 09:07 37.6 C H 68 18 07/06/21 08:43 66 18 96 07/06/21 08:39 36.6 C 67 20 80/59 L 90 07/06/21 05:57 68 98/56 L 07/06/21 04:20 36.4 C L 86 20 109/66 91 Laboratory Results Laboratory Results - last 24 hr 07/06/21 07/06/21 08:07 08:07 WBC 13.97 H RBC 3.77 L Hgb 11.1 L Hct 34.2 L MCV 90.7 MCH 29.4 MCHC 32.5 RDW Std Deviation 49.6 H RDW Coeff of Giovana 15.1 H Plt Count 524 H MPV 10.1 Sodium 131 L Potassium 4.0 Chloride 92 L Carbon Dioxide 24 Anion Gap 15 H BUN 90 H Creatinine 7.40 H* D Est Cr Clr Drug Dosing 8.4 Est GFR ( Amer) 7.8 Est GFR (Non-Af Amer) 6.8 BUN/Creatinine Ratio 12.2 Glucose 128 H Calcium 9.1 Phosphorus 6.9 H Magnesium 1.9 Medications Administered Current Inpatient Medications Acetaminophen (Acetaminophen 325 Mg Tab) 650 mg PO Q4H PRN PRN Reason: Pain or Fever Stop: 07/30/21 12:54 Last Admin: 07/03/21 22:01 Dose: 650 mg Documented by: Albuterol (Albut/Ipratrop 3mg/0.5mg Neb 3 Ml Vial) 3 ml INH BIDR [facility]; Protocol Stop: 08/05/21 18:59 Amiodarone HCl (Amiodarone 200 Mg Tab) 200 mg PO TIDM [facility] Stop: 08/02/21 16:59 Last Admin: 07/06/21 11:41 Dose: 200 mg Documented by: Calcitriol (Calcitriol 0.25 Mcg Capsule) 0.25 mcg PO MoWeFr@0900 NÉSTOR Stop: 08/03/21 08:59 Last Admin: 07/04/21 08:35 Dose: 0.25 mcg Documented by: Cetirizine HCl (Cetirizine Hcl 10 Mg Tablet) 10 mg PO QAM NÉSTOR Stop: 07/30/21 12:54 Last Admin: 07/06/21 08:12 Dose: 10 mg Documented by: Gabapentin (Gabapentin 100 Mg Cap) 100 mg PO HS NÉSTOR Stop: 07/30/21 20:59 Last Admin: 07/05/21 20:29 Dose: 100 mg Documented by: Guaifenesin (Guaifenesin 600 Mg Tabcr) 600 mg PO BID [facility] Stop: 07/30/21 12:54 Last Admin: 07/06/21 08:12 Dose: 600 mg Documented by: Heparin Sodium (Porcine) (Heparin Sod 5,000 Unit/0.5 Ml Vial) 5,000 units SQ BID NÉSTOR Stop: 07/30/21 20:59 Last Admin: 07/06/21 08:12 Dose: 5,000 units Documented by: Doxycycline Hyclate 100 mg/ (Dextrose) 110 mls @ 50 mls/hr IV BID NÉSTOR Stop: 07/10/21 08:59 Last Infusion: 07/06/21 10:38 Dose: Infused Documented by: Piperacillin Sod/Tazobactam (Sod 4.5 gm/ Dextrose) 120 mls @ 200 mls/hr IV Q12H [facility]; Protocol Stop: 07/07/21 19:59 Last Infusion: 07/06/21 08:56 Dose: Infused Documented by: Methylprednisolone 20 mg/ (Syringe) 0.32 mls @ 1.5 mls/min IV BID [facility] Stop: 08/04/21 20:59 Last Admin: 07/06/21 08:12 Dose: 1.5 mls/min Documented by: Lactobacillus Acidoph/Casei/Rhamnos (Advanced Probiotic 1250 Mg Capsule) 2 cap PO DAILY NÉSTOR Stop: 08/03/21 10:59 Last Admin: 07/06/21 08:12 Dose: 2 cap Documented by: Metoprolol Tartrate (Metoprolol Tartrate 25 Mg Tab) 12.5 mg PO BID [facility] Stop: 08/05/21 20:59 Miscellaneous Information (Piperacill/Tazobac Consult Active) 1 ea N/A UD PRN PRN Reason: Consult Stop: 07/30/21 08:14 Ondansetron HCl (Ondansetron Inj 2 Mg/Ml 2 Ml Vial) 4 mg IV Q6H PRN PRN Reason: Nausea Stop: 07/30/21 12:54 Polyethylene Glycol (Polyethylene (Miralax) 17 Gm Pack) 17 gm PO BID [facility] Stop: 07/30/21 20:59 Last Admin: 07/06/21 08:09 Dose: Not Given Documented by: Polyethylene Glycol (Polyethylene (Miralax) 17 Gm Pack) 17 gm PO DAILY PRN PRN Reason: Constipation Stop: 07/30/21 12:54 Sennosides (Senna 8.6 Mg Tab) 17.2 mg PO QAM [facility] Stop: 08/02/21 11:14 Last Admin: 07/06/21 08:11 Dose: 17.2 mg Documented by: Sevelamer HCl (Sevelamer Hcl 800 Mg Tablet) 2,400 mg PO TIDM [facility] Stop: 07/30/21 16:59 Last Admin: 07/06/21 11:42 Dose: 2,400 mg Documented by: Umeclidinium/Vilanterol (Umeclidinium/Vilanterol 62.5/25mcg 7 Puffs/Inhaler) 1 puffs INH QAM [facility] Stop: 07/31/21 08:59 Last Admin: 07/06/21 08:11 Dose: 1 puffs Documented by: PG Care Time/CCT Total # of Minutes Spent Total Time Spent with Patient: Total time spent is greater than 50% in coordination of care (as documented) at patient's floor/unit and/or counseling patient: Coding Level of Care Code 88633 Subseq Hosp Care Lvl 3 Diagnoses Sepsis A41.9 Multifocal pneumonia J18.9 PAF (paroxysmal atrial fibrillation) I48.0 Paroxysmal atrial flutter I48.92 Acute respiratory failure with hypoxia J96.01 COPD (chronic obstructive pulmonary disease) J44.9 COPD type: unspecified COPD HTN (hypertension) I10 Hypertension type: unspecified End-stage renal disease on peritoneal dialysis N18.6; Z99.2 Fall W19.XXXA Tobacco use disorder F17.200 Tremor R25.1 DVT prophylaxis Z29.9 Metabolic encephalopathy G93.41 History of cerebral aneurysm repair Z98.890; Z86.79 Abnormal EKG R94.31 Elevated troponin R77.8 (1) COPD (chronic obstructive pulmonary disease) COPD type: unspecified COPD Qualified Code(s): J44.9 - Chronic obstructive pulmonary disease, unspecified (2) HTN (hypertension) Hypertension type: unspecified Qualified Code(s): I10 - Essential (primary) hypertension
[2021-07-06] MEDS: GABAPENTIN 100 MG CAP PO SCH (21:25)
[2021-07-06] MEDS: METOPROLOL TARTRATE 25 MG TAB PO SCH (21:26)
[2021-07-07] MEDS: ALBUT/IPRATROP 3MG/0.5MG NEB 3 ML VIAL INH SCH ×2 (07:16→19:34)
[2021-07-07] MEDS: guaiFENesin 600 MG TABCR PO SCH ×2 (09:02→21:18)
[2021-07-07] MEDS: SEVELAMER HCL 800 MG TABLET PO SCH ×3 (09:03→17:18)
[2021-07-07] MEDS: ADVANCED PROBIOTIC 1250 MG CAPSULE PO SCH (09:03)
[2021-07-07] MEDS: METOPROLOL TARTRATE 25 MG TAB PO SCH ×2 (09:03→21:16)
[2021-07-07] MEDS: SENNA 8.6 MG TAB PO SCH (09:03)
[2021-07-07] MEDS: CETIRIZINE HCL 10 MG TABLET PO SCH (09:04)
[2021-07-07] MEDS: AMIODARONE 200 MG TAB PO SCH ×3 (09:04→17:18)
[2021-07-07] MEDS: HEPARIN SOD 5,000 UNIT/0.5 ML VIAL SQ SCH ×2 (09:05→21:18)
[2021-07-07] MEDS: CALCITRIOL 0.25 MCG CAPSULE PO SCH (09:08)
[2021-07-07] MEDS: UMECLIDINIUM/VILANTEROL 62.5/25MCG 7 PUFFS/INHALER INH SCH (09:09)
[2021-07-07] MEDS: PIPERACILLIN/TAZOBACTAM 4.5 GM in DEXTROSE 5% 100 ML IV SCH ×2 (09:16→22:04)
[2021-07-07] MEDS: methylPREDNISolone 20 MG in SYRINGE 0 ML IV SCH ×2 (09:17→21:16)
[2021-07-07] MEDS: DOXYCYCLINE HYCLATE 100 MG in DEXTROSE 5% 100 ML IV SCH ×3 (09:18→19:57)
[2021-07-07] MEDS: POLYETHYLENE (MIRALAX) 17 GM PACK PO SCH ×2 (09:19→21:18)
--- NOTE | 2021-07-07 09:44 | Hospitalist Progress Note ---
Date of Service July 07, 2021 Assessment & Plan (1) Sepsis: Plan: 2nd to #2. resolving. Blood and sputum cultures are negative. Cont zosyn. Day #8 Doxycycline 100mg BID in koffi for atypical coverage. Day #5 COVID, RSV, flu testing negative complete 10 days of antibiotics given lobar pneumonia, need 2 more days (2) Multifocal pneumonia: Plan: Improving clinically - lung exam is improved, CRP is down significantly, no fevers, appetite better, strength is better. Cont Zosyn - day #8 of 10 Continue doxycycline, day #5 of 7 (had 3 days of Zithromax prior) Cont supportive care. Cont pulmonary toilet. Treat COPD exacerbation. He will need repeat CT chest in 6-8 weeks he has lobar pneumonia, but not loculated, no air pockets still on 5L, will get portable CXR today to assess consolidation (3) PAF (paroxysmal atrial fibrillation): Plan: Multiple episodes since admission. He does seem symptomatic from such. Responds nicely to lopressor for rate control, but BPs are low-normal, and AV jose eduardo agents may be difficult to continue. Likely NOT an anticoagulation candidate given prior cerebral aneurysm w rupture (HIGH RISK) He also has a 2nd aneurysm on prior CTA head. Appreciate cardiology consult and recs. PO amiodarone 200mg TID started 07/03/21 amiodarone drip stopped 07/05/21 metoprolol 12.5mg BID he remains in afib/aflutter today, rates in 60-70's (4) Paroxysmal atrial flutter: Plan: 2:1 conduction and 3:1 conduction continue Amiodarone 200mg TID Lopressor 12.5mg BID See #3 above. (5) Acute respiratory failure with hypoxia: Plan: Secondary to pneumonia. Cont NC O2 or oxymask. Sats in low 90s given his COPD are acceptable. Cont Schedule nebs qid. Cont IV abx. Cont IV steroids, Solu Medrol 30q12, cut to 20 q12 on 07/04/21 stable on 5L again today repeat CXR (6) COPD (chronic obstructive pulmonary disease): Plan: with exacerbation. Solumedrol 20mg IV BID. Cont albuterol nebs qid. Cont Flutter valve and incentive mark. Mucinex BID. Cont home inhalers. NC O2. Sats 90-92% are acceptable on supplemental O2. (7) HTN (hypertension): Plan: metoprolol 12.5mg BID (8) End-stage renal disease on peritoneal dialysis: Plan: Appreciate [facility] [place] dialysis management. Continue sevelamer. Volume status looks appropriate/euvolemic check BMP today (9) Fall: Plan: Just prior to admission. 2nd to weakness in setting of sepsis/pneumonia. PT, OT Fortunately no bony injuries from this fall. (10) Tobacco use disorder: Plan: declines nicoderm patch family and marriage counsellor to quit (11) History of cerebral aneurysm repair: Plan: early , at [facility] previous CTA head with small 3x4mm aneurysm nothing to do at this time (12) DVT prophylaxis: Plan: heparin 5000 BID Admission and Anticipated Discharge Date Admission Date: June 30, 2021 Subjective patient doing well, he is eating more, breathing easier, has a dry cough no fever/chills, he is sleeping well, tolerating PD he sat up in a chair, says he is not comfortable in a chair will get labs and CXR today on monitor he continues to be in aflutter with 2:1 and 3:1 conduction Review of Systems Review of Systems: All systems reviewed & are unremarkable except as noted in Subjective Constitutional: + fatigue and + weakness; no fever Respiratory: + cough and + dyspnea on exertion; no dyspnea and no sputum production Cardiovascular: no chest pain, no palpitations and no edema Gastrointestinal: no abdominal pain, no nausea, no vomiting, no constipation and no diarrhea/loose stools Physical Exam Physical Exam: General: well developed, thin male, no acute distress, comfortable Neck: supple, trachea midline, normal thyroid Lungs: clear to auscultation bilaterally, no wheezing, normal respiratory effort, no accessory muscle use, no distress, + barrel chested Heart: irregular irregular S1 and S2, no murmur, peripheral pulses normal, capillary refill normal, no edema Abdomen: soft, NT, ND, + BS, no hepatomegaly, normal to percussion Extremities: normal in appearance, no cyanosis, no petechiae, strength is 5/5 bilaterally Neuro: awake, cooperative, moves all extremities, no focal motor deficits, CN II-XII intact, sensation in extremities intact, normal speech Skin: warm, dry, no rash, normal turgor Psych: Awake, alert oriented x 3, euthymic affect Results & Data Results & Data ([facility]) Vital Signs (Past 12 Hours) Vital Signs Temp Pulse Pulse Resp BP Pulse Ox 07/07/21 09:00 36.5 C 85 17 07/07/21 07:37 89 L 07/07/21 07:34 36.5 C 85 17 107/65 85 L 07/07/21 07:17 66 07/07/21 07:16 80 18 95 07/07/21 04:33 36.5 C 79 20 124/75 96 07/07/21 00:10 108 H 07/06/21 23:47 36.5 C 75 18 153/55 H 94 Medications Administered Current Inpatient Medications Acetaminophen (Acetaminophen 325 Mg Tab) 650 mg PO Q4H PRN PRN Reason: Pain or Fever Stop: 07/30/21 12:54 Last Admin: 07/03/21 22:01 Dose: 650 mg Documented by: Albuterol (Albut/Ipratrop 3mg/0.5mg Neb 3 Ml Vial) 3 ml INH BIDR [facility]; Protocol Stop: 08/05/21 18:59 Last Admin: 07/07/21 07:16 Dose: 3 ml Documented by: Amiodarone HCl (Amiodarone 200 Mg Tab) 200 mg PO TIDM [facility] Stop: 08/02/21 16:59 Last Admin: 07/07/21 09:04 Dose: 200 mg Documented by: Calcitriol (Calcitriol 0.25 Mcg Capsule) 0.25 mcg PO MoWeFr@0900 [facility] Stop: 08/03/21 08:59 Last Admin: 07/07/21 09:08 Dose: 0.25 mcg Documented by: Cetirizine HCl (Cetirizine Hcl 10 Mg Tablet) 10 mg PO QAM [facility] Stop: 07/30/21 12:54 Last Admin: 07/07/21 09:04 Dose: 10 mg Documented by: Gabapentin (Gabapentin 100 Mg Cap) 100 mg PO HS [facility] Stop: 07/30/21 20:59 Last Admin: 07/06/21 21:25 Dose: 100 mg Documented by: Guaifenesin (Guaifenesin 600 Mg Tabcr) 600 mg PO BID [facility] Stop: 07/30/21 12:54 Last Admin: 07/07/21 09:02 Dose: 600 mg Documented by: Heparin Sodium (Porcine) (Heparin Sod 5,000 Unit/0.5 Ml Vial) 5,000 units SQ BID [facility] Stop: 07/30/21 20:59 Last Admin: 07/07/21 09:05 Dose: 5,000 units Documented by: Doxycycline Hyclate 100 mg/ (Dextrose) 110 mls @ 50 mls/hr IV BID [facility] Stop: 07/10/21 08:59 Last Admin: 07/07/21 09:18 Dose: Not Given Documented by: Piperacillin Sod/Tazobactam (Sod 4.5 gm/ Dextrose) 120 mls @ 200 mls/hr IV Q12H [facility]; Protocol Stop: 07/07/21 19:59 Last Admin: 07/07/21 09:16 Dose: 200 mls/hr Documented by: Methylprednisolone 20 mg/ (Syringe) 0.32 mls @ 1.5 mls/min IV BID [facility] Stop: 08/04/21 20:59 Last Admin: 07/07/21 09:17 Dose: 1.5 mls/min Documented by: Lactobacillus Acidoph/Casei/Rhamnos (Advanced Probiotic 1250 Mg Capsule) 2 cap PO DAILY [facility] Stop: 08/03/21 10:59 Last Admin: 07/07/21 09:03 Dose: 2 cap Documented by: Metoprolol Tartrate (Metoprolol Tartrate 25 Mg Tab) 12.5 mg PO BID [facility] Stop: 08/05/21 20:59 Last Admin: 07/07/21 09:03 Dose: 12.5 mg Documented by: Miscellaneous Information (Piperacill/Tazobac Consult Active) 1 ea N/A UD PRN PRN Reason: Consult Stop: 07/30/21 08:14 Ondansetron HCl (Ondansetron Inj 2 Mg/Ml 2 Ml Vial) 4 mg IV Q6H PRN PRN Reason: Nausea Stop: 07/30/21 12:54 Polyethylene Glycol (Polyethylene (Miralax) 17 Gm Pack) 17 gm PO BID [facility] Stop: 07/30/21 20:59 Last Admin: 07/07/21 09:19 Dose: Not Given Documented by: Polyethylene Glycol (Polyethylene (Miralax) 17 Gm Pack) 17 gm PO DAILY PRN PRN Reason: Constipation Stop: 07/30/21 12:54 Sennosides (Senna 8.6 Mg Tab) 17.2 mg PO QAM [facility] Stop: 08/02/21 11:14 Last Admin: 07/07/21 09:03 Dose: 17.2 mg Documented by: Sevelamer HCl (Sevelamer Hcl 800 Mg Tablet) 2,400 mg PO TIDM [facility] Stop: 07/30/21 16:59 Last Admin: 07/07/21 09:03 Dose: 2,400 mg Documented by: Umeclidinium/Vilanterol (Umeclidinium/Vilanterol 62.5/25mcg 7 Puffs/Inhaler) 1 puffs INH QAM [facility] Stop: 07/31/21 08:59 Last Admin: 07/07/21 09:09 Dose: 1 puffs Documented by: PG Care Time/CCT Total # of Minutes Spent Total Time Spent with Patient: Total time spent is greater than 50% in coordination of care (as documented) at patient's floor/unit and/or counseling patient: Coding Level of Care Code 88827 Subseq Hosp Care Lvl 3 Diagnoses Sepsis A41.9 Multifocal pneumonia J18.9 PAF (paroxysmal atrial fibrillation) I48.0 Paroxysmal atrial flutter I48.92 Acute respiratory failure with hypoxia J96.01 COPD (chronic obstructive pulmonary disease) J44.9 COPD type: unspecified COPD HTN (hypertension) I10 Hypertension type: unspecified End-stage renal disease on peritoneal dialysis N18.6; Z99.2 Fall W19.XXXA Tobacco use disorder F17.200 DVT prophylaxis Z29.9 History of cerebral aneurysm repair Z98.890; Z86.79 (1) COPD (chronic obstructive pulmonary disease) COPD type: unspecified COPD Qualified Code(s): J44.9 - Chronic obstructive pulmonary disease, unspecified (2) HTN (hypertension) Hypertension type: unspecified Qualified Code(s): I10 - Essential (primary) hypertension
--- NOTE | 2021-07-07 10:21 | XRay Report ---
XR chest 1V portable CLINICAL HISTORY: follow up lobar pneumonia TECHNIQUE: Single frontal radiograph of the chest was obtained. Comparison: Comparison is made to chest one view 07/03/2021 FINDINGS: No lines and tubes are seen. Calcified aortic knob is seen. Diffuse emphysematous changes are again s een. Redemonstration of focal opacity in the right midlung which may represent atelectasis or consoli dation. No evidence of pleural effusion or pneumothorax. IMPRESSION: Stable exam with redemonstration of right midlung focal opacity. ACT 112: Negative or not required by law. Electronically signed by: Arthur Taylor M.D. 07/07/2021 10:19 AM
[2021-07-07 10:31] LABS: Hematocrit (blood only) 33.6 % (42-52); Hemoglobin 10.9 g/dL (14.0-18.0); Mean Corpuscular Hemoglobin 29.5 pg (25-34); Mean Corpuscular Hgb Conc 32.4 g/dL (32-36); Mean Corpuscular Volume 90.8 fL (80-100); Mean Platelet Volume 10.3 fL (7.4-10.4); Platelet Count 612 K/uL (130-400); RDW Coefficient of Variation 15.2 % (11.5-14.5); RDW Standard Deviation 50.2 fL (36.4-46.3); White Blood Count 11.25 K/uL (4.8-10.8)
[2021-07-07 10:56] LABS: BUN Creatinine Ratio 10.3 (10-20); Calcium 9.3 mg/dl (8.5-10.1); Creatinine Clr Calc Pharmacy 8.3 ml/min; Est GFR (African American) 6.5 ml/min; Est GFR (Non-African American) 5.6 ml/min; Potassium 4.1 mmol/L (3.5-5.1)
[2021-07-07 11:15] LABS: C Reactive Protein 41.89 mg/dl (0-0.5)
--- NOTE | 2021-07-07 11:15 | Cardiology Progress Note ---
Date of Service July 07, 2021 Assessment & Plan (1) Paroxysmal atrial flutter: (2) History of cerebral aneurysm repair: (3) Multifocal pneumonia: (4) End-stage renal disease on peritoneal dialysis: Plan: Rhythm remains atrial flutter but with good rate control. Switched from IV to oral amiodarone 200 mg 3 times daily. Depending upon degree of rate control, could reduce amiodarone to 200 mg twice daily sometime in the next week. Not an anticoagulation candidate given cerebral aneurysm/hemorrhage history. Since he had been in and out of atrial fibrillation/flutter during this hospitalization, continue amiodarone with hopes of reverting to sinus. If he d oes not, would need to weigh the risks/benefits of a short period of anticoagulation (few weeks) followed by electrical cardioversion vs. allowing chronic atrial dysrhythmia (better lower risk than A. fib for thromboembolic event). Admission and Anticipated Discharge Date Admission Date: June 30, 2021 Subjective No complaints, states that he is steadily feeling better. He was able to have his oxygen flow rate reduced earlier today. Denies chest pain, palpitations, or dyspnea at rest. Telemetry showed atrial flutter with controlled ventricular response (70-80 bpm). Physical Exam Physical Exam: Appears chronically ill but not acutely distressed. BP normotensive today. Pulse 80 bpm and slightly irregular. Skin: no generalized lesions. HEENT: unremarkable. Neck: no JVD or carotid bruits. Lungs: Barrel chest with decreased/tubular breath sounds, no obvious wheezing or crackles. No accessory muscle use. Cardiac: Slightly irregular rhythm, no obvious murmur or gallop. Abdomen: benign. Extremities: no edema, pulses intact. Neurologic: normal affect and interaction, nonfocal. Results & Data ([facility]) Vital Signs (Past 12 Hours) Vital Signs Temp Pulse Pulse Resp BP Pulse Ox 07/07/21 09:00 97.7 F 85 17 07/07/21 07:37 89 L 07/07/21 07:34 97.7 F 85 17 107/65 85 L 07/07/21 07:17 66 07/07/21 07:16 80 18 95 07/07/21 04:33 97.7 F 79 20 124/75 96 07/07/21 00:10 108 H 07/06/21 23:47 97.7 F 75 18 153/55 H 94 Laboratory Results Sodium 131, potassium 4.1, BUN 89, creatinine 8.64. PG Care Time/CCT Total # of Minutes Spent Total Time Spent with Patient: Total time spent is greater than 50% in coordination of care (as documented) at patient's floor/unit and/or counseling patient: Coding Level of Care Code 12193 Subseq Hosp Care Lvl 3 Diagnoses Paroxysmal atrial flutter I48.92 History of cerebral aneurysm repair Z98.890; Z86.79 Multifocal pneumonia J18.9 End-stage renal disease on peritoneal dialysis N18.6; Z99.2
--- NOTE | 2021-07-07 11:15 | Nephrology Progress Note ---
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 Maintained on CCPD. Admitted s/p fall with right sided multifocal pneumonia. PD clearances have been acceptable. Tolerating dialysis well. Rx 1.5% Deflex x 5 exchanges of 2 L dwell. No change to current Rx. Minimal dextrose solution to discourage UF. Calcitriol to 0.25 mcg MWF. Continue Renvela 3 tab TID with meals. Boost 1 can TID. Epogen 10239 units x 1 dose given on 07/01/2021 and 07/04/20. Medications are appropriately dosed for PD. Encourage oral fluids. IVF can be added as needed for orthostatic hypotension or signs of dehydration. (2) HTN (hypertension): Plan: Volume status acceptable. BP running slightly low but acceptable. Out of bed and monitor for orthostatic symptoms. (3) PNA (pneumonia): Plan: Medications appropriate for PD. Admission and Anticipated Discharge Date Admission Date: June 30, 2021 Subjective No acute events overnight. No complications with PD. Exchanges comfortable. Effluent clear. Abdomen benign. +BM. No constipation. No chest pain or palpitations. Weakness noted. Denies lightheadedness, dizziness, syncope, or presyncope. Review of Systems Review of Systems: All systems reviewed & are unremarkable except as noted in HPI & below Physical Exam Constitutional: well developed and + thin; no acute distress Eyes: no scleral abnormality and no corneal abnormality ENMT: Mouth: no oral mucosal abnormality and oral mucous membranes not dry Neck: normal visual inspection and trachea midline Respiratory: normal respiratory effort Auscultation: lungs clear to auscultation bilaterally Cardiovascular: Rate/Rhythm: regular rate Heart Sounds: normal S1 and normal S2 Vessels: + JVD Extremities: no edema Gastrointestinal (Abdomen): Percussion/Palpation: abdomen nontender Musculoskeletal: Extremities: no cyanosis and no clubbing Skin: + turgor decreased; no lesions Neurologic: Motor/Sensory: no tremor and no asterixis Psychiatric: Orientation: alert and oriented x 3 Results & Data ([facility]) Vital Signs (Past 12 Hours) Vital Signs Temp Pulse Pulse Resp BP Pulse Ox 07/07/21 09:00 36.5 C 85 17 07/07/21 07:37 89 L 07/07/21 07:34 36.5 C 85 17 107/65 85 L 07/07/21 07:17 66 07/07/21 07:16 80 18 95 07/07/21 04:33 36.5 C 79 20 124/75 96 07/07/21 00:10 108 H 07/06/21 23:47 36.5 C 75 18 153/55 H 94 Laboratory Results Laboratory Results - last 24 hr 07/07/21 07/07/21 09:54 09:54 WBC 11.25 H RBC 3.70 L Hgb 10.9 L Hct 33.6 L MCV 90.8 MCH 29.5 MCHC 32.4 RDW Std Deviation 50.2 H RDW Coeff of Giovana 15.2 H Plt Count 612 H MPV 10.3 Sodium 131 L Potassium 4.1 Chloride 90 L Carbon Dioxide 25 Anion Gap 16 H BUN 89 H Creatinine 8.64 H* D Est Cr Clr Drug Dosing 8.3 Est GFR ( Amer) 6.5 Est GFR (Non-Af Amer) 5.6 BUN/Creatinine Ratio 10.3 Glucose 147 H Calcium 9.3 PG Care Time/CCT Total # of Minutes Spent Total Time Spent with Patient: Total time spent is greater than 50% in coordination of care (as documented) at patient's floor/unit and/or counseling patient: Coding Level of Care Code 50516 Subseq Hosp Care Lvl 3 Diagnoses End-stage renal disease on peritoneal dialysis N18.6; Z99.2 HTN (hypertension) I10 Hypertension type: unspecified PNA (pneumonia) J18.9 Laterality: bilateral Lung location: unspecified part of lung Pneumonia type: due to unspecified organism (1) HTN (hypertension) Hypertension type: unspecified Qualified Code(s): I10 - Essential (primary) hypertension (2) PNA (pneumonia) Laterality: bilateral Lung location: unspecified part of lung Pneumonia type: due to unspecified organism Qualified Code(s): J18.9 - Pneumonia, unspecified organism
[2021-07-07 12:12] LABS: C Reactive Protein 20.77 mg/dl (0-0.5)
[2021-07-07] MEDS: GABAPENTIN 100 MG CAP PO SCH (21:18)
[2021-07-08 06:36] LABS: Hematocrit (blood only) 33.3 % (42-52); Hemoglobin 11.1 g/dL (14.0-18.0); Mean Corpuscular Hemoglobin 29.9 pg (25-34); Mean Corpuscular Hgb Conc 33.3 g/dL (32-36); Mean Corpuscular Volume 89.8 fL (80-100); Mean Platelet Volume 10.4 fL (7.4-10.4); Platelet Count 697 K/uL (130-400); RDW Coefficient of Variation 15.3 % (11.5-14.5); RDW Standard Deviation 49.6 fL (36.4-46.3); Red Blood Count 3.71 M/uL (4.7-6.1); White Blood Count 12.89 K/uL (4.8-10.8)
[2021-07-08 07:09] LABS: BUN Creatinine Ratio 10.6 (10-20); Calcium 8.9 mg/dl (8.5-10.1); Creatinine Clr Calc Pharmacy 8.2 ml/min; Est GFR (African American) 7.1 ml/min; Est GFR (Non-African American) 6.1 ml/min
[2021-07-08] MEDS: ALBUT/IPRATROP 3MG/0.5MG NEB 3 ML VIAL INH SCH ×2 (07:32→19:46)
[2021-07-08] MEDS: UMECLIDINIUM/VILANTEROL 62.5/25MCG 7 PUFFS/INHALER INH SCH (07:37)
[2021-07-08] MEDS: guaiFENesin 600 MG TABCR PO SCH ×2 (07:39→21:15)
[2021-07-08] MEDS: AMIODARONE 200 MG TAB PO SCH ×3 (07:39→16:38)
[2021-07-08] MEDS: SEVELAMER HCL 800 MG TABLET PO SCH ×3 (07:39→16:38)
[2021-07-08] MEDS: CETIRIZINE HCL 10 MG TABLET PO SCH (07:40)
[2021-07-08] MEDS: METOPROLOL TARTRATE 25 MG TAB PO SCH ×2 (07:40→21:15)
[2021-07-08] MEDS: HEPARIN SOD 5,000 UNIT/0.5 ML VIAL SQ SCH ×2 (07:40→21:15)
[2021-07-08] MEDS: ADVANCED PROBIOTIC 1250 MG CAPSULE PO SCH (07:40)
[2021-07-08] MEDS: SENNA 8.6 MG TAB PO SCH (07:41)
[2021-07-08] MEDS: POLYETHYLENE (MIRALAX) 17 GM PACK PO SCH (07:41)
[2021-07-08] MEDS: methylPREDNISolone 20 MG in SYRINGE 0 ML IV SCH (07:46)
[2021-07-08] MEDS: DOXYCYCLINE HYCLATE 100 MG in DEXTROSE 5% 100 ML IV SCH ×2 (07:46→22:25)
--- NOTE | 2021-07-08 09:07 | Hospitalist Progress Note ---
Date of Service July 08, 2021 Assessment & Plan (1) Sepsis: Plan: 2nd to #2. resolving. Blood and sputum cultures are negative. Cont zosyn. Day #9 Doxycycline 100mg BID in koffi for atypical coverage. Day #6 COVID, RSV, flu testing negative complete 10 days of antibiotics given lobar pneumonia, need 1 more day (2) Multifocal pneumonia: Plan: Improving clinically - lung exam is improved, CRP is down significantly, no fevers, appetite better, strength is better. Cont Zosyn - day #9 of 10 Continue doxycycline, day #6 of 7 (had 3 days of Zithromax prior) Cont supportive care. Cont pulmonary toilet. Treat COPD exacerbation. He will need repeat CT chest in 6-8 weeks he has lobar pneumonia, but not loculated, no air pockets down to room air repeat CXR on 07/07 showed improvement in consolidation (3) PAF (paroxysmal atrial fibrillation): Plan: Multiple episodes since admission. He does seem symptomatic from such. Responds nicely to lopressor for rate control, but BPs are low-normal, and AV jose eduardo agents may be difficult to continue. Likely NOT an anticoagulation candidate given prior cerebral aneurysm w rupture (HIGH RISK) He also has a 2nd aneurysm on prior CTA head. Appreciate cardiology consult and recs. PO amiodarone 200mg TID started 07/03/21 amiodarone drip stopped 07/05/21 metoprolol 12.5mg BID he remains in afib/aflutter today, rates in 60-70's (4) Paroxysmal atrial flutter: Plan: 2:1 conduction and 3:1 conduction continue Amiodarone 200mg TID Lopressor 12.5mg BID See #3 above. (5) Acute respiratory failure with hypoxia: Plan: Secondary to pneumonia. Cont NC O2 or oxymask. Sats in low 90s given his COPD are acceptable. Cont Schedule nebs qid. Cont IV abx. Cont IV steroids, Solu Medrol 30q12, cut to 20 q12 on 07/04/21 down to room air today repeat CXR (6) COPD (chronic obstructive pulmonary disease): Plan: with exacerbation. Solumedrol 20mg IV BID, cut to 10mg BID this evening and tomorrow AM and then stop Cont albuterol nebs qid. Cont Flutter valve and incentive mark. Mucinex BID. Cont home inhalers. NC O2. Sats are stable on room air (7) HTN (hypertension): Plan: metoprolol 12.5mg BID (8) End-stage renal disease on peritoneal dialysis: Plan: Appreciate [facility] nephrology for peritoneal dialysis management. Continue sevelamer. Volume status looks appropriate/euvolemic check BMP daily, Na is a little low today (9) Fall: Plan: Just prior to admission. 2nd to weakness in setting of sepsis/pneumonia. PT, OT Fortunately no bony injuries from this fall therapy recommending rehab, try for [facility] tomorrow (10) Tobacco use disorder: Plan: declines nicoderm patch counseling psychologist to quit (11) History of cerebral aneurysm repair: Plan: early , at [facility], [place], operated by [facility] previous CTA head with small 3x4mm aneurysm nothing to do at this time no anticoagulation (12) DVT prophylaxis: Plan: heparin 5000 BID Admission and Anticipated Discharge Date Admission Date: June 30, 2021 Subjective patient looks great today, he is on room air, sitting up in a chair, breathing comfortably, minimal cough no fever/chills, no nausea, has some loose stools past two days eating well, no complaints he said he felt weak with therapy, discussed that we are getting him to [facility] if he is approved sent message to case management Review of Systems Review of Systems: All systems reviewed & are unremarkable except as noted in Subjective Constitutional: + weakness; no fever, no chills and no fatigue Respiratory: no cough and no dyspnea Cardiovascular: no chest pain and no edema Gastrointestinal: + diarrhea/loose stools; no abdominal pain, no nausea, no vomiting and no constipation Musculoskeletal: + muscle weakness Physical Exam Physical Exam: General: well developed, thin male, no acute distress, comfortable Neck: supple, trachea midline, normal thyroid Lungs: clear to auscultation bilaterally, no wheezing, normal respiratory effort, no accessory muscle use, no distress, + barrel chested Heart: irregular irregular S1 and S2, no murmur, peripheral pulses normal, capillary refill normal, no edema Abdomen: soft, NT, ND, + BS, no hepatomegaly, normal to percussion Extremities: normal in appearance, no cyanosis, no petechiae, strength is 5/5 bilaterally Neuro: awake, cooperative, moves all extremities, no focal motor deficits, CN II-XII intact, sensation in extremities intact, normal speech Skin: warm, dry, no rash, normal turgor Psych: Awake, alert oriented x 3, euthymic affect Results & Data Results & Data ([facility]) Vital Signs (Past 12 Hours) Vital Signs Temp Pulse Pulse Resp BP BP Pulse Ox 07/08/21 08:27 36.4 C L 65 19 07/08/21 08:06 36.4 C L 65 19 107/66 93 07/08/21 07:32 63 18 90 07/08/21 04:21 36.6 C 87 18 140/70 92 07/08/21 02:43 92 07/08/21 00:00 89 07/07/21 23:05 36.4 C L 75 20 109/68 92 Laboratory Results Laboratory Results - last 24 hr 07/02/21 07/04/21 07/07/21 02:45 02:58 09:54 WBC 11.25 H RBC 3.70 L Hgb 10.9 L Hct 33.6 L MCV 90.8 MCH 29.5 MCHC 32.4 RDW Std Deviation 50.2 H RDW Coeff of Giovana 15.2 H Plt Count 612 H MPV 10.3 Sodium Potassium Chloride Carbon Dioxide Anion Gap BUN Creatinine Est Cr Clr Drug Dosing Est GFR ( Amer) Est GFR (Non-Af Amer) BUN/Creatinine Ratio Glucose Calcium C-Reactive Protein 41.89 H 20.77 H 07/07/21 07/08/21 07/08/21 09:54 05:49 05:49 WBC 12.89 H RBC 3.71 L Hgb 11.1 L Hct 33.3 L MCV 89.8 MCH 29.9 MCHC 33.3 RDW Std Deviation 49.6 H RDW Coeff of Giovana 15.3 H Plt Count 697 H MPV 10.4 Sodium 131 L 128 L Potassium 4.1 4.0 Chloride 90 L 91 L Carbon Dioxide 25 22 Anion Gap 16 H 15 H BUN 89 H 85 H Creatinine 8.64 H* D 8.05 H* D Est Cr Clr Drug Dosing 8.3 8.2 Est GFR ( Amer) 6.5 7.1 Est GFR (Non-Af Amer) 5.6 6.1 BUN/Creatinine Ratio 10.3 10.6 Glucose 147 H 170 H Calcium 9.3 8.9 C-Reactive Protein Medications Administered Current Inpatient Medications Acetaminophen (Acetaminophen 325 Mg Tab) 650 mg PO Q4H PRN PRN Reason: Pain or Fever Stop: 07/30/21 12:54 Last Admin: 07/03/21 22:01 Dose: 650 mg Documented by: Albuterol (Albut/Ipratrop 3mg/0.5mg Neb 3 Ml Vial) 3 ml INH BIDR [facility]; Protocol Stop: 08/05/21 18:59 Last Admin: 07/08/21 07:32 Dose: 3 ml Documented by: Amiodarone HCl (Amiodarone 200 Mg Tab) 200 mg PO TIDM [facility] Stop: 08/02/21 16:59 Last Admin: 07/08/21 07:39 Dose: 200 mg Documented by: Calcitriol (Calcitriol 0.25 Mcg Capsule) 0.25 mcg PO MoWeFr@0900 [facility] Stop: 08/03/21 08:59 Last Admin: 07/07/21 09:08 Dose: 0.25 mcg Documented by: Cetirizine HCl (Cetirizine Hcl 10 Mg Tablet) 10 mg PO QAM [facility] Stop: 07/30/21 12:54 Last Admin: 07/08/21 07:40 Dose: 10 mg Documented by: Gabapentin (Gabapentin 100 Mg Cap) 100 mg PO HS [facility] Stop: 07/30/21 20:59 Last Admin: 07/07/21 21:18 Dose: 100 mg Documented by: Guaifenesin (Guaifenesin 600 Mg Tabcr) 600 mg PO BID [facility] Stop: 07/30/21 12:54 Last Admin: 07/08/21 07:39 Dose: 600 mg Documented by: Heparin Sodium (Porcine) (Heparin Sod 5,000 Unit/0.5 Ml Vial) 5,000 units SQ BID [facility] Stop: 07/30/21 20:59 Last Admin: 07/08/21 07:40 Dose: 5,000 units Documented by: Doxycycline Hyclate 100 mg/ (Dextrose) 110 mls @ 50 mls/hr IV BID [facility] Stop: 07/10/21 08:59 Last Admin: 07/08/21 07:46 Dose: 50 mls/hr Documented by: Piperacillin Sod/Tazobactam (Sod 4.5 gm/ Dextrose) 120 mls @ 200 mls/hr IV Q12H [facility]; Protocol Stop: 07/10/21 23:59 Last Infusion: 07/07/21 22:52 Dose: Infused Documented by: Methylprednisolone 20 mg/ (Syringe) 0.32 mls @ 1.5 mls/min IV BID [facility] Stop: 08/04/21 20:59 Last Admin: 07/08/21 07:46 Dose: 1.5 mls/min Documented by: Lactobacillus Acidoph/Casei/Rhamnos (Advanced Probiotic 1250 Mg Capsule) 2 cap PO DAILY [facility] Stop: 08/03/21 10:59 Last Admin: 07/08/21 07:40 Dose: 2 cap Documented by: Metoprolol Tartrate (Metoprolol Tartrate 25 Mg Tab) 12.5 mg PO BID [facility] Stop: 08/05/21 20:59 Last Admin: 07/08/21 07:40 Dose: 12.5 mg Documented by: Miscellaneous Information (Piperacill/Tazobac Consult Active) 1 ea N/A UD PRN PRN Reason: Consult Stop: 07/30/21 08:14 Ondansetron HCl (Ondansetron Inj 2 Mg/Ml 2 Ml Vial) 4 mg IV Q6H PRN PRN Reason: Nausea Stop: 07/30/21 12:54 Polyethylene Glycol (Polyethylene (Miralax) 17 Gm Pack) 17 gm PO BID [facility] Stop: 07/30/21 20:59 Last Admin: 07/08/21 07:41 Dose: Not Given Documented by: Polyethylene Glycol (Polyethylene (Miralax) 17 Gm Pack) 17 gm PO DAILY PRN PRN Reason: Constipation Stop: 07/30/21 12:54 Sennosides (Senna 8.6 Mg Tab) 17.2 mg PO QAM [facility] Stop: 08/02/21 11:14 Last Admin: 07/08/21 07:41 Dose: Not Given Documented by: Sevelamer HCl (Sevelamer Hcl 800 Mg Tablet) 2,400 mg PO TIDM [facility] Stop: 07/30/21 16:59 Last Admin: 07/08/21 07:39 Dose: 2,400 mg Documented by: Umeclidinium/Vilanterol (Umeclidinium/Vilanterol 62.5/25mcg 7 Puffs/Inhaler) 1 puffs INH QAM [facility] Stop: 07/31/21 08:59 Last Admin: 07/08/21 07:37 Dose: 1 puffs Documented by: PG Care Time/CCT Total # of Minutes Spent Total Time Spent with Patient: Total time spent is greater than 50% in coordination of care (as documented) at patient's floor/unit and/or counseling patient: Coding Level of Care Code 19829 Subseq Hosp Care Lvl 3 Diagnoses Sepsis A41.9 Multifocal pneumonia J18.9 PAF (paroxysmal atrial fibrillation) I48.0 Paroxysmal atrial flutter I48.92 Acute respiratory failure with hypoxia J96.01 COPD (chronic obstructive pulmonary disease) J44.9 COPD type: unspecified COPD HTN (hypertension) I10 Hypertension type: unspecified End-stage renal disease on peritoneal dialysis N18.6; Z99.2 Fall W19.XXXA Tobacco use disorder F17.200 History of cerebral aneurysm repair Z98.890; Z86.79 DVT prophylaxis Z29.9 (1) COPD (chronic obstructive pulmonary disease) COPD type: unspecified COPD Qualified Code(s): J44.9 - Chronic obstructive pulmonary disease, unspecified (2) HTN (hypertension) Hypertension type: unspecified Qualified Code(s): I10 - Essential (primary) hypertension
--- NOTE | 2021-07-08 10:18 | Cardiology Progress Note ---
Date of Service July 08, 2021 Assessment & Plan (1) Paroxysmal atrial flutter: (2) History of cerebral aneurysm repair: (3) Multifocal pneumonia: (4) End-stage renal disease on peritoneal dialysis: Plan: Rhythm remains atrial flutter but with good rate control. On oral amiodarone 200 mg 3 times daily. Around 07/10/2021 he will have received loading doses of amiodarone for a week, could then decrease to amiodarone 200 mg twice daily. Not an anticoagulation candidate given cerebral aneurysm/hemorrhage history. Since he had been in and out of atrial fibrillation/flutter during this hospitalization, continue amiodarone both for rate control and with hopes of reverting to sinus. Will sign off from cardiology standpoint, please have patient follow-up with me 1 to 3 weeks post-hospital discharge for adjustment of his rate/rhythm control medication regimen. Thank you. Admission and Anticipated Discharge Date Admission Date: June 30, 2021 Subjective Patient had no complaints, notes that he continues to improve. Denies chest pain, palpitations, or dyspnea at rest. Telemetry continues to show atrial flutter with controlled ventricular response (70-80 bpm). Physical Exam Physical Exam: Appears chronically ill but not acutely distressed. BP normotensive. Pulse 80 bpm and slightly irregular. Skin: no generalized lesions. HEENT: unremarkable. Neck: no JVD or carotid bruits. Lungs: Barrel chest with decreased/tubular breath sounds, no obvious wheezing or crackles. No accessory muscle use. Cardiac: Slightly irregular rhythm, no obvious murmur or gallop. Abdomen: benign. Extremities: no edema, pulses intact. Neurologic: normal affect and interaction, nonfocal. Results & Data ([facility]) Vital Signs (Past 12 Hours) Vital Signs Temp Pulse Pulse Resp BP BP Pulse Ox 07/08/21 08:27 97.5 F L 65 19 07/08/21 08:06 97.5 F L 65 19 107/66 93 07/08/21 07:32 63 18 90 07/08/21 04:21 97.9 F 87 18 140/70 92 07/08/21 02:43 92 07/08/21 00:00 89 07/07/21 23:05 97.5 F L 75 20 109/68 92 Laboratory Results Sodium 128, potassium 4.0, BUN 85, creatinine 8.05. PG Care Time/CCT Total # of Minutes Spent Total Time Spent with Patient: Total time spent is greater than 50% in coordination of care (as documented) at patient's floor/unit and/or counseling patient: Coding Level of Care Code 53914 Subseq Hosp Care Lvl 3 Diagnoses Paroxysmal atrial flutter I48.92 History of cerebral aneurysm repair Z98.890; Z86.79 Multifocal pneumonia J18.9 End-stage renal disease on peritoneal dialysis N18.6; Z99.2
--- NOTE | 2021-07-08 10:45 | Nephrology Progress Note ---
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 Maintained on CCPD. Admitted s/p fall with right sided multifocal pneumonia. PD clearances have been acceptable. Tolerating dialysis well. Rx 1.5% Deflex x 5 exchanges of 2 L dwell. No change to current Rx. Minimal dextrose solution to discourage UF. Calcitriol to 0.25 mcg MWF. Continue Renvela 3 tab TID with meals. Boost 1 can TID. Epogen 50848 units x 1 dose given on 07/01/2021 and 07/04/20. Medications are appropriately dosed for PD. Encourage oral fluids. IVF can be added as needed for orthostatic hypotension or signs of dehydration. (2) HTN (hypertension): Plan: Volume status acceptable. BP running slightly low but acceptable. Out of bed and monitor for orthostatic symptoms. (3) PNA (pneumonia): Plan: Medications appropriate for PD. Admission and Anticipated Discharge Date Admission Date: June 30, 2021 Subjective No acute events overnight. No complications with PD. No complaints this AM. Rate controlled flutter on monitor. Review of Systems Review of Systems: All systems reviewed & are unremarkable except as noted in HPI & below Physical Exam Constitutional: well developed and + thin; no acute distress Eyes: no scleral abnormality and no corneal abnormality ENMT: Mouth: no oral mucosal abnormality and oral mucous membranes not dry Neck: normal visual inspection and trachea midline Respiratory: normal respiratory effort Auscultation: lungs clear to auscultation bilaterally Cardiovascular: Rate/Rhythm: regular rate Heart Sounds: normal S1 and normal S2 Vessels: + JVD Extremities: no edema Gastrointestinal (Abdomen): Percussion/Palpation: abdomen nontender Musculoskeletal: Extremities: no cyanosis and no clubbing Skin: + turgor decreased; no lesions Neurologic: Motor/Sensory: no tremor and no asterixis Psychiatric: Orientation: alert and oriented x 3 Results & Data ([facility]) Vital Signs (Past 12 Hours) Vital Signs Temp Pulse Pulse Resp BP BP Pulse Ox 07/08/21 08:27 36.4 C L 65 19 07/08/21 08:06 36.4 C L 65 19 107/66 93 07/08/21 07:32 63 18 90 07/08/21 04:21 36.6 C 87 18 140/70 92 07/08/21 02:43 92 01/18/22 00:00 89 07/07/21 23:05 36.4 C L 75 20 109/68 92 Laboratory Results Laboratory Results - last 24 hr 07/02/21 07/04/21 07/07/21 02:45 02:58 09:54 WBC RBC Hgb Hct MCV MCH MCHC RDW Std Deviation RDW Coeff of Giovana Plt Count MPV Sodium 131 L Potassium 4.1 Chloride 90 L Carbon Dioxide 25 Anion Gap 16 H BUN 89 H Creatinine 8.64 H* D Est Cr Clr Drug Dosing 8.3 Est GFR ( Amer) 6.5 Est GFR (Non-Af Amer) 5.6 BUN/Creatinine Ratio 10.3 Glucose 147 H Calcium 9.3 C-Reactive Protein 41.89 H 20.77 H 07/08/21 07/08/21 05:49 05:49 WBC 12.89 H RBC 3.71 L Hgb 11.1 L Hct 33.3 L MCV 89.8 MCH 29.9 MCHC 33.3 RDW Std Deviation 49.6 H RDW Coeff of Giovana 15.3 H Plt Count 697 H MPV 10.4 Sodium 128 L Potassium 4.0 Chloride 91 L Carbon Dioxide 22 Anion Gap 15 H BUN 85 H Creatinine 8.05 H* D Est Cr Clr Drug Dosing 8.2 Est GFR ( Amer) 7.1 Est GFR (Non-Af Amer) 6.1 BUN/Creatinine Ratio 10.6 Glucose 170 H Calcium 8.9 C-Reactive Protein PG Care Time/CCT Total # of Minutes Spent Total Time Spent with Patient: Total time spent is greater than 50% in coordination of care (as documented) at patient's floor/unit and/or counseling patient: Coding Level of Care Code 86995 Subseq Hosp Care Lvl 3 Diagnoses End-stage renal disease on peritoneal dialysis N18.6; Z99.2 HTN (hypertension) I10 Hypertension type: unspecified PNA (pneumonia) J18.9 Laterality: bilateral Lung location: unspecified part of lung Pneumonia type: due to unspecified organism (1) HTN (hypertension) Hypertension type: unspecified Qualified Code(s): I10 - Essential (primary) hypertension (2) PNA (pneumonia) Laterality: bilateral Lung location: unspecified part of lung Pneumonia type: due to unspecified organism Qualified Code(s): J18.9 - Pneumonia, unspecified organism
[2021-07-08] MEDS: PIPERACILLIN/TAZOBACTAM 4.5 GM in DEXTROSE 5% 100 ML IV SCH ×2 (10:51→21:11)
[2021-07-08] MEDS ORDERED: methylPREDNISolone 10 MG in SYRINGE 0 ML IV SCH (21:00)
[2021-07-08] MEDS: GABAPENTIN 100 MG CAP PO SCH (21:17)
[2021-07-09] MEDS: methylPREDNISolone 10 MG in SYRINGE 0 ML IV SCH ×3 (00:40→21:13)
[2021-07-09] MEDS: ADVANCED PROBIOTIC 1250 MG CAPSULE PO SCH (07:16)
[2021-07-09] MEDS: CETIRIZINE HCL 10 MG TABLET PO SCH (07:16)
[2021-07-09] MEDS: guaiFENesin 600 MG TABCR PO SCH ×2 (07:16→21:11)
[2021-07-09] MEDS: METOPROLOL TARTRATE 25 MG TAB PO SCH ×2 (07:16→21:13)
[2021-07-09] MEDS: DOXYCYCLINE HYCLATE 100 MG in DEXTROSE 5% 100 ML IV SCH ×2 (07:16→21:49)
[2021-07-09] MEDS: CALCITRIOL 0.25 MCG CAPSULE PO SCH (07:16)
[2021-07-09] MEDS: SEVELAMER HCL 800 MG TABLET PO SCH ×3 (07:17→16:35)
[2021-07-09] MEDS: HEPARIN SOD 5,000 UNIT/0.5 ML VIAL SQ SCH ×2 (07:17→21:13)
[2021-07-09] MEDS: UMECLIDINIUM/VILANTEROL 62.5/25MCG 7 PUFFS/INHALER INH SCH (07:17)
[2021-07-09] MEDS: ALBUT/IPRATROP 3MG/0.5MG NEB 3 ML VIAL INH SCH ×2 (07:35→19:16)
[2021-07-09] MEDS: PIPERACILLIN/TAZOBACTAM 4.5 GM in DEXTROSE 5% 100 ML IV SCH ×2 (09:43→21:00)
[2021-07-09] MEDS: AMIODARONE 200 MG TAB PO SCH ×3 (09:43→16:35)
[2021-07-09 10:34] LABS: Albumin Level 2.7 gm/dl (3.4-5.0); Calcium 8.8 mg/dl (8.5-10.1); Creatinine Clr Calc Pharmacy 8.7 ml/min; Est GFR (African American) 6.9 ml/min; Potassium 4.2 mmol/L (3.5-5.1)
--- NOTE | 2021-07-09 12:11 | Hospitalist Progress Note ---
Date of Service July 09, 2021 Assessment & Plan (1) Sepsis: Plan: 2nd to #2. resolving. Blood and sputum cultures are negative. Cont zosyn. Day #10 Doxycycline 100mg BID in koffi for atypical coverage. Day #7 COVID, RSV, flu testing negative complete 10 days of antibiotics today (2) Multifocal pneumonia: Plan: Improving clinically - lung exam is improved, CRP is down significantly, no f iesha, appetite better, strength is better. Cont Zosyn - day #10 Continue doxycycline, day #7 (had 3 days of Zithromax prior) Cont supportive care. Cont pulmonary toilet. Treat COPD exacerbation. He will need repeat CT chest in 6-8 weeks he has lobar pneumonia, but not loculated, no air pockets down to room air repeat CXR on 07/07 showed improvement in consolidation (3) PAF (paroxysmal atrial fibrillation): Plan: Multiple episodes since admission. He does seem symptomatic from such. Responds nicely to lopressor for rate control, but BPs are low-normal, and AV jose eduardo agents may be difficult to continue. Likely NOT an anticoagulation candidate given prior cerebral aneurysm w rupture (HIGH RISK) He also has a 2nd aneurysm on prior CTA head. Appreciate cardiology consult and recs. PO amiodarone 200mg TID started 07/03/21 amiodarone drip stopped 07/05/21 metoprolol 12.5mg BID he remains in afib/aflutter today, rates in 60-70's (4) Paroxysmal atrial flutter: Plan: 2:1 conduction and 3:1 conduction continue Amiodarone 200mg TID Lopressor 12.5mg BID See #3 above. (5) Acute respiratory failure with hypoxia: Plan: Secondary to pneumonia. Cont NC O2 or oxymask. Sats in low 90s given his COPD are acceptable. Cont Schedule nebs qid. Cont IV abx. Cont IV steroids, Solu Medrol 10 q12, stop on discharge down to room air today repeat CXR (6) COPD (chronic obstructive pulmonary disease): Plan: with exacerbation. Solumedrol 10mg IV BID, stop on discharge Cont albuterol nebs qid. Cont Flutter valve and incentive mark. Mucinex BID. Cont home inhalers. NC O2. Sats are stable on room air (7) HTN (hypertension): Plan: metoprolol 12.5mg BID (8) End-stage renal disease on peritoneal dialysis: Plan: Appreciate [facility] nephrology for peritoneal dialysis management. Continue sevelamer. Volume status looks appropriate/euvolemic check BMP daily, Na is a little low at 127 but stable (9) Fall: Plan: Just prior to admission. 2nd to weakness in setting of sepsis/pneumonia. PT, OT Fortunately no bony injuries from this fall therapy recommending rehab, try for [facility] tomorrow, no beds today (10) Tobacco use disorder: Plan: declines nicoderm patch tariff counsel to quit (11) History of cerebral aneurysm repair: Plan: early , at [facility] previous CTA head with small 3x4mm aneurysm nothing to do at this time no anticoagulation (12) DVT prophylaxis: Plan: heparin 5000 BID Admission and Anticipated Discharge Date Admission Date: June 30, 2021 Subjective patient doing great, no fever, breathing well on room air, minimal cough eating well, c/o loose stools, will give a dose of Imodium labs reviewed no beds at [facility] today, try to get him there tomorrow Review of Systems Review of Systems: All systems reviewed & are unremarkable except as noted in Subjective Gastrointestinal: + diarrhea/loose stools Physical Exam Physical Exam: General: well developed, thin male, no acute distress, comfortable Neck: supple, trachea midline, normal thyroid Lungs: clear to auscultation bilaterally, no wheezing, normal respiratory effort, no accessory muscle use, no distress, + barrel chested Heart: irregular irregular S1 and S2, no murmur, peripheral pulses normal, capillary refill normal, no edema Abdomen: soft, NT, ND, + BS, no hepatomegaly, normal to percussion Extremities: normal in appearance, no cyanosis, no petechiae, strength is 5/5 bilaterally Neuro: awake, cooperative, moves all extremities, no focal motor deficits, CN II-XII intact, sensation in extremities intact, normal speech Skin: warm, dry, no rash, normal turgor Psych: Awake, alert oriented x 3, euthymic affect Results & Data Results & Data ([facility]) Vital Signs (Past 12 Hours) Vital Signs Temp Pulse Pulse Resp BP Pulse Ox 07/09/21 08:15 36.8 C 61 18 07/09/21 08:00 36.8 C 61 18 130/67 93 07/09/21 07:35 64 18 91 07/09/21 03:53 36.6 C 82 18 120/75 90 07/09/21 02:16 81 Laboratory Results Laboratory Results - last 24 hr 07/09/21 09:42 Sodium 127 L Potassium 4.2 Chloride 90 L Carbon Dioxide 23 Anion Gap 14 H BUN 82 H Creatinine 8.20 H* Est Cr Clr Drug Dosing 8.7 Est GFR ( Amer) 6.9 Est GFR (Non-Af Amer) 6.0 BUN/Creatinine Ratio 10.0 Glucose 102 H Calcium 8.8 Phosphorus 6.0 H Albumin 2.7 L Medications Administered Current Inpatient Medications Acetaminophen (Acetaminophen 325 Mg Tab) 650 mg PO Q4H PRN PRN Reason: Pain or Fever Stop: 07/30/21 12:54 Last Admin: 07/03/21 22:01 Dose: 650 mg Documented by: Albuterol (Albut/Ipratrop 3mg/0.5mg Neb 3 Ml Vial) 3 ml INH BIDR [facility]; Protocol Stop: 08/05/21 18:59 Last Admin: 07/09/21 07:35 Dose: 3 ml Documented by: Amiodarone HCl (Amiodarone 200 Mg Tab) 200 mg PO TIDM [facility] Stop: 08/02/21 16:59 Last Admin: 07/09/21 09:43 Dose: 200 mg Documented by: Calcitriol (Calcitriol 0.25 Mcg Capsule) 0.25 mcg PO MoWeFr@0900 [facility] Stop: 08/03/21 08:59 Last Admin: 07/09/21 07:16 Dose: 0.25 mcg Documented by: Cetirizine HCl (Cetirizine Hcl 10 Mg Tablet) 10 mg PO QAM [facility] Stop: 07/30/21 12:54 Last Admin: 07/09/21 07:16 Dose: 10 mg Documented by: Gabapentin (Gabapentin 100 Mg Cap) 100 mg PO HS [facility] Stop: 07/30/21 20:59 Last Admin: 07/08/21 21:17 Dose: 100 mg Documented by: Guaifenesin (Guaifenesin 600 Mg Tabcr) 600 mg PO BID [facility] Stop: 07/30/21 12:54 Last Admin: 07/09/21 07:16 Dose: 600 mg Documented by: Heparin Sodium (Porcine) (Heparin Sod 5,000 Unit/0.5 Ml Vial) 5,000 units SQ BID [facility] Stop: 07/30/21 20:59 Last Admin: 07/09/21 07:17 Dose: 5,000 units Documented by: Doxycycline Hyclate 100 mg/ (Dextrose) 110 mls @ 50 mls/hr IV BID [facility] Stop: 07/10/21 08:59 Last Infusion: 07/09/21 09:28 Dose: Infused Documented by: Piperacillin Sod/Tazobactam (Sod 4.5 gm/ Dextrose) 120 mls @ 200 mls/hr IV Q12H [facility]; Protocol Stop: 07/10/21 23:59 Last Infusion: 07/09/21 10:19 Dose: Infused Documented by: Methylprednisolone 10 mg/ (Syringe) 0.25 mls @ 1.5 mls/min IV BID [facility] Stop: 08/07/21 20:59 Last Admin: 07/09/21 07:21 Dose: 1.5 mls/min Documented by: Lactobacillus Acidoph/Casei/Rhamnos (Advanced Probiotic 1250 Mg Capsule) 2 cap PO DAILY [facility] Stop: 08/03/21 10:59 Last Admin: 07/09/21 07:16 Dose: 2 cap Documented by: Metoprolol Tartrate (Metoprolol Tartrate 25 Mg Tab) 12.5 mg PO BID [facility] Stop: 08/05/21 20:59 Last Admin: 07/09/21 07:16 Dose: 12.5 mg Documented by: Miscellaneous Information (Piperacill/Tazobac Consult Active) 1 ea N/A UD PRN PRN Reason: Consult Stop: 07/30/21 08:14 Ondansetron HCl (Ondansetron Inj 2 Mg/Ml 2 Ml Vial) 4 mg IV Q6H PRN PRN Reason: Nausea Stop: 07/30/21 12:54 Polyethylene Glycol (Polyethylene (Miralax) 17 Gm Pack) 17 gm PO DAILY PRN PRN Reason: Constipation Stop: 07/30/21 12:54 Sevelamer HCl (Sevelamer Hcl 800 Mg Tablet) 2,400 mg PO TIDM [facility] Stop: 07/30/21 16:59 Last Admin: 07/09/21 07:17 Dose: 2,400 mg Documented by: Umeclidinium/Vilanterol (Umeclidinium/Vilanterol 62.5/25mcg 7 Puffs/Inhaler) 1 puffs INH QAM [facility] Stop: 07/31/21 08:59 Last Admin: 07/09/21 07:17 Dose: 1 puffs Documented by: PG Care Time/CCT Total # of Minutes Spent Total Time Spent with Patient: Total time spent is greater than 50% in coordination of care (as documented) at patient's floor/unit and/or counseling patient: Coding Level of Care Code 62082 Subseq Hosp Care Lvl 2 Diagnoses Sepsis A41.9 Multifocal pneumonia J18.9 PAF (paroxysmal atrial fibrillation) I48.0 Paroxysmal atrial flutter I48.92 Acute respiratory failure with hypoxia J96.01 COPD (chronic obstructive pulmonary disease) J44.9 COPD type: unspecified COPD HTN (hypertension) I10 Hypertension type: unspecified End-stage renal disease on peritoneal dialysis N18.6; Z99.2 Fall W19.XXXA Tobacco use disorder F17.200 History of cerebral aneurysm repair Z98.890; Z86.79 DVT prophylaxis Z29.9 (1) COPD (chronic obstructive pulmonary disease) COPD type: unspecified COPD Qualified Code(s): J44.9 - Chronic obstructive pulmonary disease, unspecified (2) HTN (hypertension) Hypertension type: unspecified Qualified Code(s): I10 - Essential (primary) hypertension
[2021-07-09] MEDS ORDERED: LOPERAMIDE HCL 2 MG CAP PO PRN (12:13)
--- NOTE | 2021-07-09 12:42 | Nephrology Progress Note ---
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 Maintained on CCPD. PD clearances have been acceptable. Tolerating dialysis well. Rx 1.5% Deflex x 5 exchanges w/ 2 L x 90 min dwell. No change to current Rx. Calcitriol to 0.25 mcg MWF. Continue Renvela 3 tab TID with meals. Boost 1 can TID. Epogen 36644 units x 1 dose given on 07/01/2021 and 07/04/20. Medications are appropriately dosed for PD. (2) HTN (hypertension): Plan: Volume status acceptable. BP acceptable. (3) PNA (pneumonia): Plan: Medications appropriate for PD. Admission and Anticipated Discharge Date Admission Date: June 30, 2021 Subjective No acute events overnight. No complications with PD. Overall, feels well. Weakness noted. Review of Systems Review of Systems: All systems reviewed & are unremarkable except as noted in HPI & below Physical Exam Constitutional: well developed and + thin; no acute distress Eyes: no scleral abnormality and no corneal abnormality ENMT: Mouth: no oral mucosal abnormality and oral mucous membranes not dry Neck: normal visual inspection and trachea midline Respiratory: normal respiratory effort Auscultation: lungs clear to auscultation bilaterally Cardiovascular: Rate/Rhythm: regular rate Heart Sounds: normal S1 and normal S2 Vessels: + JVD Extremities: no edema Gastrointestinal (Abdomen): Percussion/Palpation: abdomen nontender Musculoskeletal: Extremities: no cyanosis and no clubbing Skin: + turgor decreased; no lesions Neurologic: Motor/Sensory: no tremor and no asterixis Psychiatric: Orientation: alert and oriented x 3 Results & Data ([facility]) Vital Signs (Past 12 Hours) Vital Signs Temp Pulse Pulse Resp BP Pulse Ox 07/09/21 08:15 36.8 C 61 18 07/09/21 08:00 36.8 C 61 18 130/67 93 07/09/21 07:35 64 18 91 07/09/21 03:53 36.6 C 82 18 120/75 90 07/09/21 02:16 81 Laboratory Results Laboratory Results - last 24 hr 07/09/21 09:42 Sodium 127 L Potassium 4.2 Chloride 90 L Carbon Dioxide 23 Anion Gap 14 H BUN 82 H Creatinine 8.20 H* Est Cr Clr Drug Dosing 8.7 Est GFR ( Amer) 6.9 Est GFR (Non-Af Amer) 6.0 BUN/Creatinine Ratio 10.0 Glucose 102 H Calcium 8.8 Phosphorus 6.0 H Albumin 2.7 L PG Care Time/CCT Total # of Minutes Spent Total Time Spent with Patient: Total time spent is greater than 50% in coordination of care (as documented) at patient's floor/unit and/or counseling patient: Coding Level of Care Code 80289 Subseq Hosp Care Lvl 3 Diagnoses End-stage renal disease on peritoneal dialysis N18.6; Z99.2 HTN (hypertension) I10 Hypertension type: unspecified PNA (pneumonia) J18.9 Laterality: bilateral Lung location: unspecified part of lung Pneumonia type: due to unspecified organism (1) HTN (hypertension) Hypertension type: unspecified Qualified Code(s): I10 - Essential (primary) hypertension (2) PNA (pneumonia) Laterality: bilateral Lung location: unspecified part of lung Pneumonia type: due to unspecified organism Qualified Code(s): J18.9 - Pneumonia, unspecified organism
[2021-07-09] MEDS: GABAPENTIN 100 MG CAP PO SCH (21:11)
[2021-07-10] MEDS: ALBUT/IPRATROP 3MG/0.5MG NEB 3 ML VIAL INH SCH ×2 (07:45→19:30)
[2021-07-10] MEDS: CETIRIZINE HCL 10 MG TABLET PO SCH (08:12)
[2021-07-10] MEDS: ADVANCED PROBIOTIC 1250 MG CAPSULE PO SCH (08:12)
[2021-07-10] MEDS: guaiFENesin 600 MG TABCR PO SCH ×2 (08:12→20:53)
[2021-07-10] MEDS: SEVELAMER HCL 800 MG TABLET PO SCH ×3 (08:12→17:19)
[2021-07-10] MEDS: METOPROLOL TARTRATE 25 MG TAB PO SCH ×2 (08:13→20:55)
[2021-07-10] MEDS: methylPREDNISolone 10 MG in SYRINGE 0 ML IV SCH (08:13)
[2021-07-10] MEDS: PIPERACILLIN/TAZOBACTAM 4.5 GM in DEXTROSE 5% 100 ML IV SCH ×2 (08:13→20:50)
[2021-07-10] MEDS: HEPARIN SOD 5,000 UNIT/0.5 ML VIAL SQ SCH ×2 (08:13→20:54)
[2021-07-10] MEDS: AMIODARONE 200 MG TAB PO SCH ×3 (08:13→17:18)
[2021-07-10] MEDS: UMECLIDINIUM/VILANTEROL 62.5/25MCG 7 PUFFS/INHALER INH SCH (08:13)
--- NOTE | 2021-07-10 09:47 | Nephrology Progress Note ---
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 Maintained on CCPD. PD clearances have been acceptable. Tolerating dialysis well. Rx 1.5% Deflex x 5 exchanges w/ 2 L x 90 min dwell. No change to current Rx. Calcitriol to 0.25 mcg MWF. Continue Renvela 3 tab TID with meals. Boost 1 can TID. Epogen 37894 units x 1 dose given on 07/01/2021 and 07/04/20. Medications are appropriately dosed for PD. (2) HTN (hypertension): Plan: Volume status acceptable. BP controlled. (3) PNA (pneumonia): Plan: Medications appropriate for PD. Admission and Anticipated Discharge Date Admission Date: June 30, 2021 Subjective No acute events overnight. No complications with PD. Overall, feels well. Hoping to be discharged to rehab. 3/5 exchanges performed overnight due to power loss during treatment. Drained empty this AM. Effluent clear. Plan of care reviewed with strategic sourcing manager. Review of Systems Review of Systems: All systems reviewed & are unremarkable except as noted in HPI & below Physical Exam Constitutional: well developed and + thin; no acute distress Eyes: no scleral abnormality and no corneal abnormality ENMT: Mouth: no oral mucosal abnormality and oral mucous membranes not dry Neck: normal visual inspection and trachea midline Respiratory: normal respiratory effort Auscultation: lungs clear to auscultation bilaterally Cardiovascular: Rate/Rhythm: regular rate Heart Sounds: normal S1 and normal S2 Vessels: + JVD Extremities: no edema Gastrointestinal (Abdomen): Percussion/Palpation: abdomen nontender Musculoskeletal: Extremities: no cyanosis and no clubbing Skin: + turgor decreased; no lesions Neurologic: Motor/Sensory: no tremor and no asterixis Psychiatric: Orientation: alert and oriented x 3 Results & Data ([facility]) Vital Signs (Past 12 Hours) Vital Signs Temp Pulse Pulse Resp BP Pulse Ox 07/10/21 07:46 72 18 94 07/10/21 07:05 36.4 C L 112 H 16 126/73 93 07/09/21 21:52 36.3 C L 103 H 18 139/79 91 Laboratory Results Laboratory Results - last 24 hr 07/09/21 09:42 Sodium 127 L Potassium 4.2 Chloride 90 L Carbon Dioxide 23 Anion Gap 14 H BUN 82 H Creatinine 8.20 H* Est Cr Clr Drug Dosing 8.7 Est GFR ( Amer) 6.9 Est GFR (Non-Af Amer) 6.0 BUN/Creatinine Ratio 10.0 Glucose 102 H Calcium 8.8 Phosphorus 6.0 H Albumin 2.7 L PG Care Time/CCT Total # of Minutes Spent Total Time Spent with Patient: Total time spent is greater than 50% in coordination of care (as documented) at patient's floor/unit and/or counseling patient: Coding Level of Care Code 27465 Subseq Hosp Care Lvl 3 Diagnoses End-stage renal disease on peritoneal dialysis N18.6; Z99.2 HTN (hypertension) I10 Hypertension type: unspecified PNA (pneumonia) J18.9 Laterality: bilateral Lung location: unspecified part of lung Pneumonia type: due to unspecified organism (1) HTN (hypertension) Hypertension type: unspecified Qualified Code(s): I10 - Essential (primary) hypertension (2) PNA (pneumonia) Laterality: bilateral Lung location: unspecified part of lung Pneumonia type: due to unspecified organism Qualified Code(s): J18.9 - Pneumonia, unspecified organism
--- NOTE | 2021-07-10 12:12 | Hospitalist Progress Note ---
Date of Service July 10, 2021 Assessment & Plan (1) Sepsis: Plan: 2nd to #2. resolving. Blood and sputum cultures are negative. completed full course of Zosyn and Doxycycline COVID, RSV, flu testing negative (2) Multifocal pneumonia: Plan: Improving clinically - lung exam is improved, CRP is down significantly, no fevers, appetite better, strength is better. completed full course of Zosyn and Doxycycline while admitted Treat COPD exacerbation. He will need repeat CT chest in 6-8 weeks he has lobar pneumonia, but not loculated, no air pockets down to room air repeat CXR on 07/07 showed improvement in consolidation (3) PAF (paroxysmal atrial fibrillation): Plan: Multiple episodes since admission. He does seem symptomatic from such. Responds nicely to lopressor for rate control, but BPs are low-normal, and AV jose eduardo agents may be difficult to continue. Likely NOT an anticoagulation candidate given prior cerebral aneurysm w rupture (HIGH RISK) He also has a 2nd aneurysm on prior CTA head. Appreciate cardiology consult and recs. PO amiodarone 200mg TID started 07/03/21 will decrease to 200mg BID today, 07/10 amiodarone drip stopped 07/05/21 metoprolol 12.5mg BID he remains in afib/aflutter today, rates in 60-70's should follow up with [facility] cardiology (4) Paroxysmal atrial flutter: Plan: 2:1 conduction and 3:1 conduction continue Amiodarone 200mg bid Lopressor 12.5mg BID See #3 above. (5) Acute respiratory failure with hypoxia: Plan: Secondary to pneumonia. Cont NC O2 or oxymask. Sats in low 90s given his COPD are acceptable. Cont Schedule nebs qid. Cont IV abx. stop Solu Medrol today down to room air (6) COPD (chronic obstructive pulmonary disease): Plan: with exacerbation. Solumedrol 10mg IV BID, stop 07/10 Cont albuterol nebs qid. Cont Flutter valve and incentive mark. Mucinex BID. Cont home inhalers. NC O2. Sats are stable on room air (7) HTN (hypertension): Plan: metoprolol 12.5mg BID (8) End-stage renal disease on peritoneal dialysis: Plan: Appreciate [facility] nephrology for peritoneal dialysis management. Continue sevelamer. Volume status looks appropriate/euvolemic check BMP daily (9) Fall: Plan: Just prior to admission. 2nd to weakness in setting of sepsis/pneumonia. PT, OT Fortunately no bony injuries from this fall therapy recommending rehab, try for [facility] tomorrow, no beds today (10) Tobacco use disorder: Plan: declines nicoderm patch certified travel counselor to quit (11) History of cerebral aneurysm repair: Plan: early , at [facility] previous CTA head with small 3x4mm aneurysm nothing to do at this time no anticoagulation (12) DVT prophylaxis: Plan: heparin 5000 BID Admission and Anticipated Discharge Date Admission Date: June 30, 2021 Subjective patient doing well, sitting up in chair, breathing comfortably on room air vitals and labs stable d/w CM, now [facility] cannot take him due to PD, looking into alternative options Review of Systems Review of Systems: All systems reviewed & are unremarkable except as noted in Subjective Constitutional: + weakness Musculoskeletal: + muscle weakness Physical Exam Physical Exam: General: well developed, thin male, no acute distress, comfortable Neck: supple, trachea midline, normal thyroid Lungs: clear to auscultation bilaterally, no wheezing, normal respiratory effort, no accessory muscle use, no distress, + barrel chested Heart: irregular irregular S1 and S2, no murmur, peripheral pulses normal, capillary refill normal, no edema Abdomen: soft, NT, ND, + BS, no hepatomegaly, normal to percussion Extremities: normal in appearance, no cyanosis, no petechiae, strength is 5/5 bilaterally Neuro: awake, cooperative, moves all extremities, no focal motor deficits, CN II-XII intact, sensation in extremities intact, normal speech Skin: warm, dry, no rash, normal turgor Psych: Awake, alert oriented x 3, euthymic affect Results & Data Results & Data ([facility]) Vital Signs (Past 12 Hours) Vital Signs Temp Pulse Pulse Resp BP Pulse Ox 07/10/21 08:15 36.4 C L 72 18 07/10/21 07:46 72 18 94 07/10/21 07:05 36.4 C L 112 H 16 126/73 93 PG Care Time/CCT Total # of Minutes Spent Total Time Spent with Patient: Total time spent is greater than 50% in coordination of care (as documented) at patient's floor/unit and/or counseling patient: Coding Level of Care Code 70613 Subseq Hosp Care Lvl 3 Diagnoses Sepsis A41.9 Multifocal pneumonia J18.9 PAF (paroxysmal atrial fibrillation) I48.0 Paroxysmal atrial flutter I48.92 Acute respiratory failure with hypoxia J96.01 COPD (chronic obstructive pulmonary disease) J44.9 COPD type: unspecified COPD HTN (hypertension) I10 Hypertension type: unspecified End-stage renal disease on peritoneal dialysis N18.6; Z99.2 Fall W19.XXXA Tobacco use disorder F17.200 History of cerebral aneurysm repair Z98.890; Z86.79 DVT prophylaxis Z29.9 (1) COPD (chronic obstructive pulmonary disease) COPD type: unspecified COPD Qualified Code(s): J44.9 - Chronic obstructive pulmonary disease, unspecified (2) HTN (hypertension) Hypertension type: unspecified Qualified Code(s): I10 - Essential (primary) hypertension
[2021-07-10] MEDS: GABAPENTIN 100 MG CAP PO SCH (20:53)
[2021-07-11] MEDS: ALBUT/IPRATROP 3MG/0.5MG NEB 3 ML VIAL INH SCH ×2 (07:11→19:54)
[2021-07-11] MEDS: CALCITRIOL 0.25 MCG CAPSULE PO SCH (07:44)
[2021-07-11] MEDS: ADVANCED PROBIOTIC 1250 MG CAPSULE PO SCH (07:44)
[2021-07-11] MEDS: CETIRIZINE HCL 10 MG TABLET PO SCH (07:44)
[2021-07-11] MEDS: AMIODARONE 200 MG TAB PO SCH ×2 (07:44→16:28)
[2021-07-11] MEDS: guaiFENesin 600 MG TABCR PO SCH ×2 (07:45→20:52)
[2021-07-11] MEDS: SEVELAMER HCL 800 MG TABLET PO SCH ×3 (07:45→16:28)
[2021-07-11] MEDS: HEPARIN SOD 5,000 UNIT/0.5 ML VIAL SQ SCH ×2 (07:45→20:52)
[2021-07-11] MEDS: METOPROLOL TARTRATE 25 MG TAB PO SCH ×2 (07:45→20:51)
[2021-07-11] MEDS: UMECLIDINIUM/VILANTEROL 62.5/25MCG 7 PUFFS/INHALER INH SCH (08:32)
--- NOTE | 2021-07-11 10:03 | Nephrology Progress Note ---
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 Maintained on CCPD. PD clearances have been acceptable. Tolerating dialysis well. Rx 1.5% Deflex x 5 exchanges w/ 2 L x 90 min dwell. No change to current Rx. Calcitriol to 0.25 mcg MWF. Continue Renvela 3 tab TID with meals. Boost 1 can TID. Epogen 82822 units x 1 dose given on 07/01/2021 and 07/04/20. Medications are appropriately dosed for PD. (2) HTN (hypertension): Plan: Volume status acceptable. BP controlled. (3) Debility: Plan: Care coordination working on placement at rehab but unfortunately I do not know of any facilities able to support PD. Admission and Anticipated Discharge Date Admission Date: June 30, 2021 Subjective No acute events overnight. Tolerated PD without complications. Unfortunately, PD not able to be provided at [facility]. Sisi remains hopeful that he can arrange rehab prior to returning home due to notable weakness. Review of Systems Review of Systems: All systems reviewed & are unremarkable except as noted in HPI & below Physical Exam Constitutional: well developed and + thin; no acute distress Eyes: no scleral abnormality and no corneal abnormality ENMT: Mouth: no oral mucosal abnormality and oral mucous membranes not dry Neck: normal visual inspection and trachea midline Respiratory: normal respiratory effort Auscultation: lungs clear to auscultation bilaterally Cardiovascular: Rate/Rhythm: regular rate Heart Sounds: normal S1 and normal S2 Extremities: no edema Gastrointestinal (Abdomen): Percussion/Palpation: abdomen nontender Musculoskeletal: Extremities: no cyanosis and no clubbing PD catheter with clean exit site Skin: + turgor decreased; no lesions Neurologic: Motor/Sensory: no tremor and no asterixis Psychiatric: Orientation: alert and oriented x 3 Results & Data ([facility]) Vital Signs (Past 12 Hours) Vital Signs Temp Pulse Resp BP Pulse Ox 07/11/21 07:39 36.2 C L 60 18 107/61 94 07/11/21 07:11 60 18 93 07/10/21 22:14 36.3 C L 102 H 18 113/67 91 PG Care Time/CCT Total # of Minutes Spent Total Time Spent with Patient: Total time spent is greater than 50% in coordination of care (as documented) at patient's floor/unit and/or counseling patient: Coding Level of Care Code 92984 Subseq Hosp Care Lvl 3 Diagnoses End-stage renal disease on peritoneal dialysis N18.6; Z99.2 HTN (hypertension) I10 Hypertension type: unspecified Debility R53.81 (1) HTN (hypertension) Hypertension type: unspecified Qualified Code(s): I10 - Essential (primary) hypertension
[2021-07-11] MEDS: GABAPENTIN 100 MG CAP PO SCH (20:52)
--- NOTE | 2021-07-11 21:42 | Hospitalist Progress Note ---
Date of Service July 11, 2021 Assessment & Plan (1) Sepsis: Plan: 2nd to #2. resolving. Blood and sputum cultures are negative. completed full course of Zosyn and Doxycycline COVID, RSV, flu testing negative (2) Multifocal pneumonia: Plan: Improving clinically - lung exam is improved, CRP is down significantly, no fevers, appetite better, strength is better. completed full course of Zosyn and Doxycycline while admitted Treat COPD exacerbation. He will need repeat CT chest in 6-8 weeks he has lobar pneumonia, but not loculated, no air pockets down to room air repeat CXR on 07/07 showed improvement in consolidation (3) PAF (paroxysmal atrial fibrillation): Plan: Multiple episodes since admission. He does seem symptomatic from such. Responds nicely to lopressor for rate control, but BPs are low-normal, and AV jose eduardo agents may be difficult to continue. NOT an anticoagulation candidate given prior cerebral aneurysm w rupture (HIGH RISK) He also has a 2nd aneurysm on prior CTA head. Appreciate cardiology consult and recs. PO amiodarone 200mg TID started 07/03/21 will decrease to 200mg BID 07/10 amiodarone drip stopped 07/05/21 metoprolol 12.5mg BID he remains in afib/aflutter, rates in 60-70's plan on discharge: amiodarone 200mg BID and metoprolol 12.5mg BID no anticoagulation should follow up with [facility] cardiology (4) Paroxysmal atrial flutter: Plan: 2:1 conduction and 3:1 conduction continue Amiodarone 200mg bid Lopressor 12.5mg BID See #3 above. (5) Acute respiratory failure with hypoxia: Plan: Secondary to pneumonia. Cont NC O2 or oxymask. Sats in low 90s given his COPD are acceptable. Cont Schedule nebs qid. Cont IV abx. stop Solu Medrol today down to room air (6) COPD (chronic obstructive pulmonary disease): Plan: with exacerbation. Solumedrol 10mg IV BID, stop 07/10 Cont albuterol nebs qid. Cont Flutter valve and incentive mark. Mucinex BID. Cont home inhalers. NC O2. Sats are stable on room air (7) HTN (hypertension): Plan: metoprolol 12.5mg BID (8) End-stage renal disease on peritoneal dialysis: Plan: Appreciate [facility] nephrology for peritoneal dialysis management. Continue sevelamer. Volume status looks appropriate/euvolemic check BMP daily (9) Fall: Plan: Just prior to admission. 2nd to weakness in setting of sepsis/pneumonia. PT, OT Fortunately no bony injuries from this fall therapy recommending rehab, looking into SNF options (10) Tobacco use disorder: Plan: declines nicoderm patch christian counselor to quit (11) History of cerebral aneurysm repair: Plan: early , at [facility] previous CTA head with small 3x4mm aneurysm nothing to do at this time no anticoagulation (12) DVT prophylaxis: Plan: heparin 5000 BID Plan: go to SNF once there is a bed available Admission and Anticipated Discharge Date Admission Date: June 30, 2021 Subjective patient doing well, no complaints he understands [facility] cannot provide PD due to nursing issues looking into SNF rehab he is eating well, breathing well, no fever Review of Systems Review of Systems: All systems reviewed & are unremarkable except as noted in Subjective Constitutional: + weakness Musculoskeletal: + muscle weakness Physical Exam Physical Exam: General: well developed, thin male, no acute distress, comforta ble Neck: supple, trachea midline, normal thyroid Lungs: clear to auscultation bilaterally, no wheezing, normal respiratory effort, no accessory muscle use, no distress, + barrel chested Heart: irregular irregular S1 and S2, no murmur, peripheral pulses normal, capillary refill normal, no edema Abdomen: soft, NT, ND, + BS, no hepatomegaly, normal to percussion Extremities: normal in appearance, no cyanosis, no petechiae, strength is 5/5 bilaterally Neuro: awake, cooperative, moves all extremities, no focal motor deficits, CN II-XII intact, sensation in extremities intact, normal speech Skin: warm, dry, no rash, normal turgor Psych: Awake, alert oriented x 3, euthymic affect Results & Data Results & Data ([facility]) Vital Signs (Past 12 Hours) Vital Signs Temp Pulse Pulse Resp BP Pulse Ox 07/11/21 20:40 36.5 C 87 116 H 20 115/78 07/11/21 19:54 87 22 96 07/11/21 15:56 36.4 C L 96 H 17 114/73 96 Medications Administered Current Inpatient Medications Acetaminophen (Acetaminophen 325 Mg Tab) 650 mg PO Q4H PRN PRN Reason: Pain or Fever Stop: 07/30/21 12:54 Last Admin: 07/03/21 22:01 Dose: 650 mg Documented by: Albuterol (Albut/Ipratrop 3mg/0.5mg Neb 3 Ml Vial) 3 ml INH BIDR [facility]; Protocol Stop: 08/05/21 18:59 Last Admin: 07/11/21 19:54 Dose: 3 ml Documented by: Amiodarone HCl (Amiodarone 200 Mg Tab) 200 mg PO BIDM [facility] Stop: 08/09/21 16:59 Last Admin: 07/11/21 16:28 Dose: 200 mg Documented by: Calcitriol (Calcitriol 0.25 Mcg Capsule) 0.25 mcg PO MoWeFr@0900 [facility] Stop: 08/03/21 08:59 Last Admin: 07/11/21 07:44 Dose: 0.25 mcg Documented by: Cetirizine HCl (Cetirizine Hcl 10 Mg Tablet) 10 mg PO QAM [facility] Stop: 07/30/21 12:54 Last Admin: 07/11/21 07:44 Dose: 10 mg Documented by: Gabapentin (Gabapentin 100 Mg Cap) 100 mg PO HS [facility] Stop: 07/30/21 20:59 Last Admin: 07/11/21 20:52 Dose: 100 mg Documented by: Guaifenesin (Guaifenesin 600 Mg Tabcr) 600 mg PO BID [facility] Stop: 07/30/21 12:54 Last Admin: 07/11/21 20:52 Dose: 600 mg Documented by: Heparin Sodium (Porcine) (Heparin Sod 5,000 Unit/0.5 Ml Vial) 5,000 units SQ BID [facility] Stop: 07/30/21 20:59 Last Admin: 07/11/21 20:52 Dose: 5,000 units Documented by: Lactobacillus Acidoph/Casei/Rhamnos (Advanced Probiotic 1250 Mg Capsule) 2 cap PO DAILY [facility] Stop: 08/03/21 10:59 Last Admin: 07/11/21 07:44 Dose: 2 cap Documented by: Loperamide HCl (Loperamide Hcl 2 Mg Cap) 2 mg PO Q6 PRN PRN Reason: Diarrhea Stop: 08/08/21 12:12 Metoprolol Tartrate (Metoprolol Tartrate 25 Mg Tab) 12.5 mg PO BID [facility] Stop: 08/05/21 20:59 Last Admin: 07/11/21 20:51 Dose: 12.5 mg Documented by: Ondansetron HCl (Ondansetron Inj 2 Mg/Ml 2 Ml Vial) 4 mg IV Q6H PRN PRN Reason: Nausea Stop: 07/30/21 12:54 Polyethylene Glycol (Polyethylene (Miralax) 17 Gm Pack) 17 gm PO DAILY PRN PRN Reason: Constipation Stop: 07/30/21 12:54 Sevelamer HCl (Sevelamer Hcl 800 Mg Tablet) 2,400 mg PO TIDM [facility] Stop: 07/30/21 16:59 Last Admin: 07/11/21 16:28 Dose: 2,400 mg Documented by: Umeclidinium/Vilanterol (Umeclidinium/Vilanterol 62.5/25mcg 7 Puffs/Inhaler) 1 puffs INH QAM [facility] Stop: 07/31/21 08:59 Last Admin: 07/11/21 08:32 Dose: 1 puffs Documented by: PG Care Time/CCT Total # of Minutes Spent Total Time Spent with Patient: Total time spent is greater than 50% in coordination of care (as documented) at patient's floor/unit and/or counseling patient: Coding Level of Care Code 47517 Subseq Hosp Care Lvl 2 Diagnoses Sepsis A41.9 Multifocal pneumonia J18.9 PAF (paroxysmal atrial fibrillation) I48.0 Paroxysmal atrial flutter I48.92 Acute respiratory failure with hypoxia J96.01 COPD (chronic obstructive pulmonary disease) J44.9 COPD type: unspecified COPD HTN (hypertension) I10 Hypertension type: unspecified End-stage renal disease on peritoneal dialysis N18.6; Z99.2 Fall W19.XXXA Tobacco use disorder F17.200 History of cerebral aneurysm repair Z98.890; Z86.79 DVT prophylaxis Z29.9 (1) COPD (chronic obstructive pulmonary disease) COPD type: unspecified COPD Qualified Code(s): J44.9 - Chronic obstructive p ulmonary disease, unspecified (2) HTN (hypertension) Hypertension type: unspecified Qualified Code(s): I10 - Essential (primary) hypertension
[2021-07-12] MEDS: ALBUT/IPRATROP 3MG/0.5MG NEB 3 ML VIAL INH SCH ×2 (08:02→20:10)
[2021-07-12] MEDS: ACETAMINOPHEN 325 MG TAB PO PRN (09:37)
[2021-07-12] MEDS: UMECLIDINIUM/VILANTEROL 62.5/25MCG 7 PUFFS/INHALER INH SCH (09:42)
[2021-07-12] MEDS: METOPROLOL TARTRATE 25 MG TAB PO SCH ×2 (09:42→20:40)
[2021-07-12] MEDS: guaiFENesin 600 MG TABCR PO SCH ×2 (09:43→20:37)
[2021-07-12] MEDS: ADVANCED PROBIOTIC 1250 MG CAPSULE PO SCH (09:43)
[2021-07-12] MEDS: CETIRIZINE HCL 10 MG TABLET PO SCH (09:43)
[2021-07-12] MEDS: AMIODARONE 200 MG TAB PO SCH ×2 (09:43→17:23)
[2021-07-12] MEDS: SEVELAMER HCL 800 MG TABLET PO SCH ×3 (09:43→17:23)
[2021-07-12] MEDS: HEPARIN SOD 5,000 UNIT/0.5 ML VIAL SQ SCH ×2 (09:44→20:37)
--- NOTE | 2021-07-12 10:08 | Nephrology Progress Note ---
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 Maintained on NCCPD * Rx 1.5% Deflex x 5 exchanges w/ 2 L x 90 min dwell. No change to current Rx. * Calcitriol to 0.25 mcg MWF. Continue Renvela 3 tab TID with meals. Boost 1 can TID. * Epogen 34068 units x 1 dose given on 07/01/2021 and 07/04/20. (2) HTN (hypertension): Plan: * Volume status acceptable. BP controlled (3) Debility: Plan: * Care coordination working on placement at rehab. May need to explore options near his home in [facility] Admission and Anticipated Discharge Date Admission Date: June 30, 2021 Subjective Mr. Redmond was evaluated in his hospital room this morning. He was completing NCCPD therapy at the time of my evaluation. He reports that his breathing is improved but he still remains weak. He has had no complications w/ NCCPD therapy. He had net 1.1L UF overnight Review of Systems Constitutional: + weakness; no fever Eyes: no problem reported Ear, Nose, Mouth, Throat: no problem reported Respiratory: no cough and no dyspnea Cardiovascular: no chest pain, no palpitations and no edema Gastrointestinal: no abdominal pain, no nausea, no vomiting and no diarrhea/loose stools Genitourinary: no dysuria, no urinary hesitancy or no hematuria Musculoskeletal: no back pain Integumentary: no rash Neurologic: no falls, no dizziness and no confusion Physical Exam Constitutional: + thin and + frail appearing Eyes: PERRL, conjunctivae normal, anicteric sclerae ENMT: external ear and nose normal, oropharynx normal Neck: trachea midline, no thyromegaly Respiratory: Auscultation: + crackles (R base) Cardiovascular: RRR, no murmur, no edema Gastrointestinal (Abdomen): normal bowel sounds, soft, nontender, no hepatosplenomegaly PD exit site is clean and without erythema or drainage Skin: no rashes, warm and dry Neurologic: awake; not confused Results & Data ([facility]) Vital Signs (Past 12 Hours) Vital Signs Temp Pulse Resp BP Pulse Ox 07/12/21 08:04 74 18 92 07/12/21 07:35 36.7 C 109 H 16 125/72 91 07/11/21 22:58 115 H 07/11/21 22:06 36.5 C 121 H 18 122/88 93 Laboratory Results PRP pending PG Care Time/CCT Total # of Minutes Spent Total Time Spent with Patient: Total time spent is greater than 50% in coordination of care (as documented) at patient's floor/unit and/or counseling patient: Coding Level of Care Code 59283 Subseq Hosp Care Lvl 3 Diagnoses End-stage renal disease on peritoneal dialysis N18.6; Z99.2 HTN (hypertension) I10 Hypertension type: unspecified Debility R53.81 (1) HTN (hypertension) Hypertension type: unspecified Qualified Code(s): I10 - Essential (primary) hypertension
[2021-07-12 10:56] LABS: Eosinophils # (auto) 0.29 K/uL (0-0.5); Eosinophils % (auto) 2.9 %; Hematocrit (blood only) 31.3 % (42-52); Hemoglobin 10.4 g/dL (14.0-18.0); Immature Granulocytes # (auto) 0.12 K/uL (0.00-0.02); Immature Granulocytes % (auto) 1.2 %; Lymphocytes # (auto) 0.77 K/uL (1.2-3.4); Lymphocytes % (auto) 7.7 %; Mean Corpuscular Hgb Conc 33.2 g/dL (32-36); Mean Corpuscular Volume 90.2 fL (80-100); Mean Platelet Volume 9.8 fL (7.4-10.4); Monocytes # (auto) 1.09 K/uL (0.11-0.59); Monocytes % (auto) 10.9 %; Neutrophils % (auto) 77.3 %; Platelet Count 556 K/uL (130-400); RDW Coefficient of Variation 16.1 % (11.5-14.5); Red Blood Count 3.47 M/uL (4.7-6.1); White Blood Count 9.97 K/uL (4.8-10.8)
[2021-07-12 11:17] LABS: BUN Creatinine Ratio 11.2 (10-20); Calcium 8.2 mg/dl (8.5-10.1); Creatinine Clr Calc Pharmacy 8.9 ml/min; Est GFR (African American) 7.2 ml/min; Est GFR (Non-African American) 6.2 ml/min; Potassium 4.1 mmol/L (3.5-5.1)
[2021-07-12] MEDS: GABAPENTIN 100 MG CAP PO SCH (20:37)
--- NOTE | 2021-07-12 21:09 | Hospitalist Progress Note ---
Date of Service July 12, 2021 Assessment & Plan (1) Sepsis: Plan: 2nd to #2. resolved. wbc count normalized. CRP normalized. Blood and sputum cultures were negative. Completed full courses of IV zosyn and IV doxycycline. Now off abx. COVID, RSV, flu testing negative at admission. Off O2. (2) Multifocal pneumonia: Plan: Clinically resolved. Completed full course of abx as above. He will need repeat CT chest in 6-8 weeks to re-evaluate the right lung. O2 has been weaned off. (3) PAF (paroxysmal atrial fibrillation): Plan: Multiple symptomatic episodes since admission (was symptomatic at fast rates). Seen by cardiology earlier in stay - s/p amiodarone infusion with PO load. Amiodarone now 200mg BID. Also on low-dose metoprolol 12.5mg BID. Rate control is very good. Still in fib, but again rates are acceptable. Likely NOT an anticoagulation candidate given prior cerebral aneurysm w rupture. He also has a 2nd aneurysm on prior CTA head. (4) Paroxysmal atrial flutter: Plan: 2:1 conduction. See #3 above. (5) Acute respiratory failure with hypoxia: Plan: Secondary to pneumonia. Resolved. (6) COPD (chronic obstructive pulmonary disease): Plan: with exacerbation. resolved. completed IV/PO steroid course. Cont albuterol nebs BID. Cont Flutter valve and incentive mark. Mucinex BID. Cont home inhalers. (7) HTN (hypertension): Plan: controlled (8) End-stage renal disease on peritoneal dialysis: Plan: Appreciate [facility] nephrology for peritoneal dialysis management. Continue sevelamer. Volume status looks appropriate/euvolemic today. (9) Fall: Plan: Just prior to admission. 2nd to weakness in setting of sepsis/pneumonia. cont PT/OT. (10) Chest pain: Plan: resolved was 2nd to trauma from his pre-admission fall (11) Tobacco use disorder: Plan: ip counsel to quit (12) Tremor: Plan: per the EMR this is chronic. No Rx at this time but could consider primidone or similar as outpatient. (13) DVT prophylaxis: Plan: heparin 5000 BID (14) Metabolic encephalopathy: Plan: resolved (15) History of cerebral aneurysm repair: Plan: early , at [facility] previous CTA head with small 3x4mm aneurysm nothing to do at this time (16) Elevated troponin: Plan: likely myocardial demand ischemia from rapid a.fib/flutter, sepsis, and pneumonia doubt ACS this was earlier in his stay (17) Hyponatremia: Plan: defer Rx to nephrology BMP am Plan: update family tomorrow dispo - SNF for rehab Admission and Anticipated Discharge Date Admission Date: June 30, 2021 Subjective pt sitting at side of bed states he feels well wanted to walk to the sink to "take my teeth out" and get ready for bed asked for stool softeners offers no complaints - he feels well Review of Systems Review of Systems: gen - feeling good, appetite is robust cv - no pain pulm - no dyspnea; minimal cough Gi - no abd pain Physical Exam Physical Exam: gen - looks very good, NAD, walked to sink with walker and did well (needed supervision from me only) HENT - MMM, no thrush neck - no JVD heart - regular rate, irregular, s1 s2, 1/6 systolic murmur RUSB lungs - no wheezes; minimal rales R base; CTA otherwise abd - soft, PD catheter c/d/i, NT, BS+, no HSM ext - pulses 2+ b/l, no edema Results & Data Results & Data ([facility]) Vital Signs (Past 12 Hours) Vital Signs Temp Pulse Pulse Resp BP Pulse Ox 07/12/21 20:42 36.5 C 109 H 18 137/79 91 07/12/21 20:10 90 18 93 07/12/21 09:15 36.7 C 109 H 16 Laboratory Results labs reviewed including cbc, bmp crp markedly improved from prior PG Care Time/CCT Total # of Minutes Spent Total Time Spent with Patient: Total time spent is greater than 50% in coordination of care (as documented) at patient's floor/unit and/or counseling patient: Coding Level of Care Code 01299 Subseq Hosp Care Lvl 2 Diagnoses Sepsis A41.9 Multifocal pneumonia J18.9 PAF (paroxysmal atrial fibrillation) I48.0 Paroxysmal atrial flutter I48.92 Acute respiratory failure with hypoxia J96.01 COPD (chronic obstructive pulmonary disease) J44.9 COPD type: unspecified COPD HTN (hypertension) I10 Hypertension type: unspecified End-stage renal disease on peritoneal dialysis N18.6; Z99.2 Fall W19.XXXA Chest pain R07.9 Chest pain type: unspecified Tobacco use disorder F17.200 Tremor R25.1 DVT prophylaxis Z29.9 Metabolic encephalopathy G93.41 History of cerebral aneurysm repair Z98.890; Z86.79 Elevated troponin R77.8 Hyponatremia E87.1 (1) COPD (chronic obstructive pulmonary disease) COPD type: unspecified COPD Qualified Code(s): J44.9 - Chronic obstructive pulmonary disease, unspecified (2) Chest pain Chest pain type: unspecified Qualified Code(s): R07.9 - Chest pain, unspecified (3) HTN (hypertension) Hypertension type: unspecified Qualified Code(s): I10 - Essential (primary) hypertension
[2021-07-13 06:50] LABS: Hematocrit (blood only) 30.5 % (42-52); Hemoglobin 10.1 g/dL (14.0-18.0); Mean Corpuscular Hemoglobin 30.1 pg (25-34); Mean Corpuscular Hgb Conc 33.1 g/dL (32-36); Mean Platelet Volume 9.5 fL (7.4-10.4); Platelet Count 497 K/uL (130-400); RDW Coefficient of Variation 16.2 % (11.5-14.5); Red Blood Count 3.35 M/uL (4.7-6.1); White Blood Count 8.44 K/uL (4.8-10.8)
[2021-07-13 07:19] LABS: BUN Creatinine Ratio 11.3 (10-20); Calcium 8.2 mg/dl (8.5-10.1); Creatinine Clr Calc Pharmacy 9.1 ml/min; Est GFR (African American) 7.1 ml/min; Est GFR (Non-African American) 6.1 ml/min
[2021-07-13] MEDS: ALBUT/IPRATROP 3MG/0.5MG NEB 3 ML VIAL INH SCH ×2 (07:24→19:52)
[2021-07-13] MEDS: UMECLIDINIUM/VILANTEROL 62.5/25MCG 7 PUFFS/INHALER INH SCH (08:18)
[2021-07-13] MEDS: METOPROLOL TARTRATE 25 MG TAB PO SCH ×2 (08:19→20:10)
[2021-07-13] MEDS: SEVELAMER HCL 800 MG TABLET PO SCH ×3 (08:19→17:14)
[2021-07-13] MEDS: CETIRIZINE HCL 10 MG TABLET PO SCH (08:20)
[2021-07-13] MEDS: AMIODARONE 200 MG TAB PO SCH ×2 (08:20→17:13)
[2021-07-13] MEDS: ADVANCED PROBIOTIC 1250 MG CAPSULE PO SCH (08:20)
[2021-07-13] MEDS: guaiFENesin 600 MG TABCR PO SCH ×2 (08:20→20:10)
--- NOTE | 2021-07-13 08:49 | Nephrology Progress Note ---
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 Maintained on NCCPD * Rx 1.5% Deflex x 5 exchanges w/ 2 L x 80 min dwell * Will change to 1.5% + 2.5% dialysate to improve UF. Outpatient EDW 72 kg, patient has hyponatremia * Calcitriol to 0.25 mcg MWF. Continue Renvela 3 tab TID with meals. Boost 1 can TID. (2) Hyponatremia: Plan: * 3 kg above outpatient EDW. Will adjust NCCPD to increase UF * Will provide NaCl 1 g po BID x 2 doses and liberalize Na in diet (3) Anemia: Plan: * Epogen 99450 units x 1 dose given on 07/01/2021 and 07/04/20 (4) HTN (hypertension): Plan: * BP controlled (5) Debility: Plan: * Care coordination working on placement at rehab. May need to explore options near his home in [facility] Admission and Anticipated Discharge Date Admission Date: June 30, 2021 Subjective Mr. Redmond was evaluated in his hospital room this morning. He was completing NCCPD therapy at the time of my evaluation. He reports that his breathing is improved but he still remains weak. He has had no complications w/ NCCPD therapy Review of Systems Constitutional: + weakness; no fever Eyes: no problem reported Ear, Nose, Mouth, Throat: no problem reported Respiratory: no cough and no dyspnea Cardiovascular: no chest pain, no palpitations and no edema Gastrointestinal: no abdominal pain, no nausea, no vomiting and no diarrhea/loose stools Genitourinary: no dysuria, no urinary hesitancy or no hematuria Musculoskeletal: no back pain Integumentary: no rash Neurologic: no falls, no dizziness and no confusion Physical Exam Constitutional: + thin and + frail appearing Eyes: PERRL, conjunctivae normal, anicteric sclerae ENMT: external ear and nose normal, oropharynx normal Neck: trachea midline, no thyromegaly Respiratory: Auscultation: + crackles (R base) Cardiovascular: RRR, no murmur, no edema Gastrointestinal (Abdomen): normal bowel sounds, soft, nontender, no hepatosplenomegaly Skin: no rashes, warm and dry Neurologic: awake; not confused Results & Data ([facility]) Vital Signs (Past 12 Hours) Vital Signs Temp Pulse Pulse Resp BP Pulse Ox 07/13/21 07:25 83 18 93 07/13/21 07:21 36.5 C 92 H 16 129/73 94 07/12/21 22:25 36.5 C 109 H 18 137/79 Laboratory Results Laboratory Tests 07/13/21 07/13/21 05:54 05:54 WBC 8.44 Hgb 10.1 L Hct 30.5 L Plt Count 497 H Sodium 126 L Potassium 4.0 Chloride 96 L Carbon Dioxide 22 BUN 91 H Creatinine 8.06 H* Glucose 111 H Calcium 8.2 L PG Care Time/CCT Total # of Minutes Spent Total Time Spent with Patient: Total time spent is greater than 50% in coordination of care (as documented) at patient's floor/unit and/or counseling patient: Coding Level of Care Code 81103 Subseq Hosp Care Lvl 3 Diagnoses End-stage renal disease on peritoneal dialysis N18.6; Z99.2 HTN (hypertension) I10 Hypertension type: unspecified Debility R53.81 Anemia D64.9 Anemia type: unspecified type Hyponatremia E87.1 (1) HTN (hypertension) Hypertension type: unspecified Qualified Code(s): I10 - Essential (primary) hypertension (2) Anemia Anemia type: unspecified type Qualified Code(s): D64.9 - Anemia, unspecified
[2021-07-13] MEDS: HEPARIN SOD 5,000 UNIT/0.5 ML VIAL SQ SCH ×2 (09:08→20:10)
[2021-07-13] MEDS: DOCUSATE SODIUM 100 MG CAP PO SCH ×2 (10:23→20:10)
[2021-07-13] MEDS: SODIUM CHLORIDE 1 GM TABLET PO SCH ×2 (10:23→20:10)
[2021-07-13] MEDS: SENNA 8.6 MG TAB PO SCH (10:23)
[2021-07-13] MEDS: GABAPENTIN 100 MG CAP PO SCH (20:10)
[2021-07-13] MEDS: MELATONIN 3 MG TAB PO SCH (21:21)
--- NOTE | 2021-07-13 22:19 | Hospitalist Progress Note ---
Date of Service July 13, 2021 Assessment & Plan (1) Sepsis: Plan: 2nd to #2. resolved. Completed full courses of IV zosyn and IV doxycycline. Now off abx. COVID, RSV, flu testing negative at admission. Off O2. (2) Multifocal pneumonia: Plan: b/l, but RML was worst area of infection. Clinically resolved Completed full course of abx as above. He will need repeat CT chest in 6-8 weeks to re-evaluate the right lung. O2 has been weaned off. (3) PAF (paroxysmal atrial fibrillation): Plan: Multiple symptomatic episodes since admission (was symptomatic at fast rates). Seen by cardiology earlier in stay - s/p amiodarone infusion with PO load. Amiodarone now 200mg BID. Also on low-dose metoprolol 12.5mg BID. Rate control is very good. Still in fib, but again rates are acceptable. Likely NOT an anticoagulation candidate given prior cerebral aneurysm w rupture. He also has a 2nd aneurysm on prior CTA head. (4) Paroxysmal atrial flutter: Plan: 2:1 conduction. See #3 above. (5) Acute respiratory failure with hypoxia: Plan: Secondary to pneumonia. Resolved. (6) COPD (chronic obstructive pulmonary disease): Plan: with exacerbation. resolved. completed IV/PO steroid course. Cont albuterol nebs BID. Cont Flutter valve and incentive mark. Mucinex BID. Cont home inhalers. (7) HTN (hypertension): Plan: controlled (8) End-stage renal disease on peritoneal dialysis: Plan: Appreciate [facility] nephrology for peritoneal dialysis management. Continue sevelamer. (9) Fall: Plan: Just prior to admission. 2nd to weakness in setting of sepsis/pneumonia. weakness has improved but needs ongoing PT/OT and rehab post-discharge. (10) Chest pain: Plan: right sided, present on admission. resolved. was 2nd to trauma from his pre-admission fall (11) Tobacco use disorder: Plan: counseled to quit (12) Tremor: Plan: per the EMR this is chronic. No Rx at this time but could consider primidone or similar as outpatient. (13) DVT prophylaxis: Plan: heparin 5000 BID (14) Metabolic encephalopathy: Plan: resolved (15) History of cerebral aneurysm repair: Plan: early , at [facility] previous CTA head with small 3x4mm aneurysm nothing to do at this time (16) Elevated troponin: Plan: likely myocardial demand ischemia from rapid a.fib/flutter, sepsis, and pneumonia doubt ACS this was earlier in his stay (17) Hyponatremia: Plan: defer Rx to nephrology Salt tabs added today BMP am fortunately does not appear symptomatic from the low Na Plan: dispo - SNF for rehab insomnia -- add melatonin 3mg HS scheduled Admission and Anticipated Discharge Date Admission Date: June 30, 2021 Subjective pt only w/ complaints of insomnia last pm otherwise eating well no dyspnea no cough no c/o pain any location watching football during the encounter today Review of Systems Review of Systems: gen - no fevers or chills cv - no chest pain or orthopnea gi - no pain, no N/V pulm - no cough or dyspnea Physical Exam Physical Exam: gen - NAD, sitting in chair comfortably HENT - MMM, no thrush neck - no JVD heart - regular rate, irregular, s1 s2, 1/6 systolic murmur RUSB lungs - no wheezes; no rales; CTA b/l abd - soft, NT, BS+, no HSM ext - pulses 2+ b/l, no edema Results & Data Results & Data ([facility]) Vital Signs (Past 12 Hours) Vital Signs Temp Pulse Pulse Resp BP Pulse Ox 07/13/21 21:24 36.3 C L 84 18 146/80 H 91 07/13/21 19:52 82 18 92 07/13/21 18:52 36.6 C 80 18 133/74 07/13/21 16:55 36.7 C 77 16 131/67 91 07/13/21 10:30 36.3 C L 78 18 Laboratory Results Laboratory Results - last 24 hr 07/13/21 07/13/21 05:54 05:54 WBC 8.44 RBC 3.35 L Hgb 10.1 L Hct 30.5 L MCV 91.0 MCH 30.1 MCHC 33.1 RDW Std Deviation 53.0 H RDW Coeff of Giovana 16.2 H Plt Count 497 H MPV 9.5 Sodium 126 L Potassium 4.0 Chloride 96 L Carbon Dioxide 22 Anion Gap 8 BUN 91 H Creatinine 8.06 H* Est Cr Clr Drug Dosing 9.1 Est GFR ( Amer) 7.1 Est GFR (Non-Af Amer) 6.1 BUN/Creatinine Ratio 11.3 Glucose 111 H Calcium 8.2 L PG Care Time/CCT Total # of Minutes Spent Total Time Spent with Patient: Total time spent is greater than 50% in coordination of care (as documented) at patient's floor/unit and/or counseling patient: Coding Level of Care Code 82722 Subseq Hosp Care Lvl 2 Diagnoses Sepsis A41.9 Multifocal pneumonia J18.9 PAF (paroxysmal atrial fibrillation) I48.0 Paroxysmal atrial flutter I48.92 Acute respiratory failure with hypoxia J96.01 COPD (chronic obstructive pulmonary disease) J44.9 COPD type: unspecified COPD HTN (hypertension) I10 Hypertension type: unspecified End-stage renal disease on peritoneal dialysis N18.6; Z99.2 Fall W19.XXXA Chest pain R07.9 Chest pain type: unspecified Tobacco use disorder F17.200 Tremor R25.1 DVT prophylaxis Z29.9 Metabolic encephalopathy G93.41 History of cerebral aneurysm repair Z98.890; Z86.79 Elevated troponin R77.8 Hyponatremia E87.1 (1) COPD (chronic obstructive pulmonary disease) COPD type: unspecified COPD Qualified Code(s): J44.9 - Chronic obstructive pulmonary disease, unspecified (2) Chest pain Chest pain type: unspecified Qualified Code(s): R07.9 - Chest pain, unspecified (3) HTN (hypertension) Hypertension type: unspecified Qualified Code(s): I10 - Essential (primary) hypertension
[2021-07-14 06:56] LABS: BUN Creatinine Ratio 10.9 (10-20); Calcium 8.3 mg/dl (8.5-10.1); Creatinine Clr Calc Pharmacy 9.2 ml/min; Est GFR (African American) 7.5 ml/min; Est GFR (Non-African American) 6.5 ml/min
[2021-07-14] MEDS: ALBUT/IPRATROP 3MG/0.5MG NEB 3 ML VIAL INH SCH ×2 (07:59→19:28)
--- NOTE | 2021-07-14 08:54 | Hospitalist Progress Note ---
Date of Service July 14, 2021 Assessment & Plan (1) Sepsis: Plan: 2nd to #2. resolved. Completed full courses of IV zosyn and IV doxycycline. Now off abx 93% on RA COVID, RSV, flu testing negative at admission. (2) Multifocal pneumonia: Plan: b/l, but RML was worst area of infection. Clinically resolved Completed full course of abx as above. He will need repeat CT chest in 6-8 weeks to re-evaluate the right lung. O2 has been weaned off and remains stable on room air (3) PAF (paroxysmal atrial fibrillation): Plan: Multiple symptomatic episodes since admission (was symptomatic at fast rates). Seen by cardiology earlier in stay - s/p amiodarone infusion with PO load. Amiodarone now 200mg BID. Also on low-dose metoprolol 12.5mg BID -- previously on metoprolol succinate 25mg daily --? if needing to switch to long acting for rate control. Possibly transition in AM Rate control is very good. Still in fib, but again rates are acceptable. Likely NOT an anticoagulation candidate given prior cerebral aneurysm w rupture. He also has a 2nd aneurysm on prior CTA head. (4) Paroxysmal atrial flutter: Plan: 2:1 conduction. See #3 above. consider switching to succinate in AM as above (5) Acute respiratory failure with hypoxia: Plan: Secondary to pneumonia. Resolved. (6) COPD (chronic obstructive pulmonary disease): Plan: with exacerbation. resolved. completed IV/PO steroid course. Cont albuterol nebs BID. Cont Flutter valve and incentive mark. Mucinex BID. Cont home inhalers. 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 (9) Fall: Plan: Just prior to admission. 2nd to weakness in setting of sepsis/pneumonia. weakness has improved but needs ongoing PT/OT and rehab post-discharge --> may be candidate for home with therapy per most recent eval . Will contact CM and monitor/see if able (10) Chest pain: Plan: right sided, present on admission. resolved. was 2nd to trauma from his pre-admission fall (11) Tobacco use disorder: Plan: counseled to quit (12) Tremor: Plan: per the EMR this is chronic. No Rx at this time but could consider primidone or similar as outpatient. Ammonia wnl. Seems like essential tremor. Able to undertake tasks without difficulty but stated nepho may have mention something about having neuro see in future. --> Discussed with nepho and did not state this but did rec to decrease gabapentin to 100mg QOD/maybe medication related? (13) Metabolic encephalopathy: Plan: resolved (14) History of cerebral aneurysm repair: Plan: early , at [facility] previous CTA head with small 3x4mm aneurysm nothing to do at this time (15) Elevated troponin: Plan: likely myocardial demand ischemia from rapid a.fib/flutter, sepsis, and pneumonia doubt ACS this was earlier in his stay (16) Hyponatremia: Plan: defer Rx to nephrology Salt tabs added 07/13, repeat Na 132 from 126 BMP am fortunately does not appear symptomatic from the low Na (17) DVT prophylaxis: Plan: heparin 5000 BID while inpatient Plan: dispo - SNF for rehab but may be able to go to home with home therapy pending OT eval as PT stated improvement. CM aware and following insomnia -- add melatonin 3mg HS scheduled Admission and Anticipated Discharge Date Admission Date: June 30, 2021 Supervising Physician Co-Signing Physician Notes Attending Attestation - Chart reviewed, care plan d/w KENNEDI Saavedra. I agree with the reyes components of her documentation. Catrachito Kennedy MD Subjective patient evaluated this morning PD last evening, tolerated well seen by nephrology this morning and did discuss tremor has been present for several weeks/months but worsened after fall. decreased with activity, worse at rest. will check mag/ammonia level for completeness but will check with nephro as patient questioned if needed to see neuro? breathing stable, no further sputum production. on room air no fever, chills, chest pain, shortness of breath, abd pain, nausea, vomiting just moved bowels this morning. anxious as awaiting rehab but needing facility to accommodate PD. Review of Systems Review of Systems: All systems reviewed & are unremarkable except as noted in HPI & below Physical Exam Physical Exam: gen - NAD, sitting up at side of the bed, no acute distress HENT - MMM, no thrush neck - no JVD heart - regular rate, irregular, s1 s2, 1/6 systolic murmur RUSB lungs - no wheezes; no rales; CTA b/l abd - soft, NT, BS+, no HSM, +PD catheter intact/no erythema/tenderness ext - pulses 2+ b/l, no edema Results & Data Results & Data ([facility]) Vital Signs (Past 12 Hours) Vital Signs Temp Pulse Pulse Resp BP Pulse Ox 07/14/21 08:10 36.5 C 69 16 07/14/21 07:59 71 16 93 07/14/21 07:39 36.5 C 69 16 146/72 H 94 07/13/21 21:24 36.3 C L 84 18 146/80 H 91 Laboratory Results 07/14/21 07/14/21 07/14/21 Range/Units 10:33 10:33 05:58 Sodium 132 L (136-145) mmol/L Potassium 4.0 (3.5-5.1) mmol/L Chloride 96 L (98-107) mmol/L Carbon Dioxide 23 (21-32) mmol/L Anion Gap 13 H (3-11) BUN 83 H (6-23) mg/dl Creatinine 7.64 H* D (0.6-1.4) mg/dl Est Cr Clr Drug Dosing 9.2 ml/min Est GFR ( Amer) 7.5 ml/min Est GFR (Non-Af Amer) 6.5 ml/min BUN/Creatinine Ratio 10.9 (10-20) Glucose 113 H (70-99(Fasting)) mg/dl Calcium 8.3 L (8.5-10.1) mg/dl Magnesium 1.9 (1.7-2.4) mg/dl Ammonia 15.0 L (18-72) umol/L PG Care Time/CCT Total # of Minutes Spent Total Time Spent with Patient: Total time spent is greater than 50% in coordination of care (as documented) at patient's floor/unit and/or counseling patient: Coding Level of Care Code 59475 Subseq Hosp Care Lvl 2 Diagnoses Sepsis A41.9 Multifocal pneumonia J18.9 PAF (paroxysmal atrial fibrillation) I48.0 Paroxysmal atrial flutter I48.92 Acute respiratory failure with hypoxia J96.01 COPD (chronic obstructive pulmonary disease) J44.9 COPD type: unspecified COPD HTN (hypertension) I10 Hypertension type: unspecified End-stage renal disease on peritoneal dialysis N18.6; Z99.2 Fall W19.XXXA Chest pain R07.9 Chest pain type: unspecified Tobacco use disorder F17.200 Tremor R25.1 DVT prophylaxis Z29.9 Metabolic encephalopathy G93.41 History of cerebral aneurysm repair Z98.890; Z86.79 Elevated troponin R77.8 Hyponatremia E87.1 (1) COPD (chronic obstructive pulmonary disease) COPD type: unspecified COPD Qualified Code(s): J44.9 - Chronic obstructive pulmonary disease, unspecified (2) Chest pain Chest pain type: unspecified Qualified Code(s): R07.9 - Chest pain, unspecified (3) HTN (hypertension) Hypertension type: unspecified Qualified Code(s): I10 - Essential (primary) hypertension
--- NOTE | 2021-07-14 09:22 | Nephrology Progress Note ---
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 Maintained on NCCPD * Rx 1.5% Deflex x 5 exchanges w/ 2 L x 80 min dwell * Will provide NCCPD therapy tonight according to chronic outpatient orders * Patient is high average transporter and still has significant residual renal function contributing to his KT/V * Calcitriol to 0.25 mcg MWF. Continue Renvela 3 tab TID with meals. Boost 1 can TID (2) Hyponatremia: Plan: * Now at EDW. Will reduce dialysate concentration to 1.5% * Will provide NaCl 1 g po BID x 2 doses and liberalize Na in diet (3) Anemia: Plan: * Epogen 87877 units x 1 dose given on 07/01/2021 and 07/04/20 (4) HTN (hypertension): Plan: * BP controlled (5) Tremor: Plan: * Recommend reducing Gabapentin to 100 mg po QOD (6) Debility: Plan: * Care coordination working on placement at rehab. May need to explore options near his home in [facility] Admission and Anticipated Discharge Date Admission Date: June 30, 2021 Subjective Mr. Redmond was evaluated in his hospital room this morning. He completed NCCPD therapy last night w/ 1200 cc UF. Mr. eRdmond is anxious to begin physical therapy. He denies dyspnea but does c/o LE weakness and tremor Review of Systems Constitutional: + weakness; no fever Eyes: no problem reported Ear, Nose, Mouth, Throat: no problem reported Respiratory: no cough and no dyspnea Cardiovascular: no chest pain, no palpitations and no edema Gastrointestinal: no abdominal pain, no nausea, no vomiting and no diarrhea/loose stools Genitourinary: no dysuria, no urinary hesitancy or no hematuria Musculoskeletal: no back pain Integumentary: no rash Neurologic: no falls, no dizziness and no confusion Physical Exam Constitutional: + thin and + frail appearing Eyes: PERRL, conjunctivae normal, anicteric sclerae ENMT: external ear and nose normal, oropharynx normal Neck: trachea midline, no thyromegaly Respiratory: normal respiratory effort, lungs clear to auscultation Cardiovascular: RRR, no murmur, no edema Gastrointestinal (Abdomen): normal bowel sounds, soft, nontender, no hepatosplenomegaly Skin: no rashes, warm and dry Neurologic: awake; not confused Results & Data ([facility]) Vital Signs (Past 12 Hours) Vital Signs Temp Pulse Pulse Resp BP Pulse Ox 07/14/21 08:10 36.5 C 69 16 07/14/21 07:59 71 16 93 07/14/21 07:39 36.5 C 69 16 146/72 H 94 07/13/21 21:24 36.3 C L 84 18 146/80 H 91 Laboratory Results Laboratory Tests 07/14/21 05:58 Sodium 132 L Potassium 4.0 Chloride 96 L Carbon Dioxide 23 BUN 83 H Creatinine 7.64 H* D Glucose 113 H Calcium 8.3 L PG Care Time/CCT Total # of Minutes Spent Total Time Spent with Patient: Total time spent is greater than 50% in coordination of care (as documented) at patient's floor/unit and/or counseling patient: Coding Level of Care Code 14714 Subseq Hosp Care Lvl 3 Diagnoses End-stage renal disease on peritoneal dialysis N18.6; Z99.2 Hyponatremia E87.1 Anemia D64.9 Anemia type: unspecified type HTN (hypertension) I10 Hypertension type: unspecified Debility R53.81 Tremor R25.1 (1) Anemia Anemia type: unspecified type Qualified Code(s): D64.9 - Anemia, unspecified (2) HTN (hypertension) Hypertension type: unspecified Qualified Code(s): I10 - Essential (primary) hypertension
[2021-07-14] MEDS: UMECLIDINIUM/VILANTEROL 62.5/25MCG 7 PUFFS/INHALER INH SCH (09:30)
[2021-07-14] MEDS: METOPROLOL TARTRATE 25 MG TAB PO SCH ×2 (09:31→20:55)
[2021-07-14] MEDS: ADVANCED PROBIOTIC 1250 MG CAPSULE PO SCH (09:31)
[2021-07-14] MEDS: DOCUSATE SODIUM 100 MG CAP PO SCH ×2 (09:32→20:55)
[2021-07-14] MEDS: CALCITRIOL 0.25 MCG CAPSULE PO SCH (09:32)
[2021-07-14] MEDS: CETIRIZINE HCL 10 MG TABLET PO SCH (09:32)
[2021-07-14] MEDS: SENNA 8.6 MG TAB PO SCH (09:32)
[2021-07-14] MEDS: AMIODARONE 200 MG TAB PO SCH ×2 (09:32→17:26)
[2021-07-14] MEDS: SEVELAMER HCL 800 MG TABLET PO SCH ×3 (09:32→17:26)
[2021-07-14] MEDS: SODIUM CHLORIDE 1 GM TABLET PO SCH ×2 (09:48→20:54)
[2021-07-14] MEDS: HEPARIN SOD 5,000 UNIT/0.5 ML VIAL SQ SCH ×2 (09:48→20:55)
[2021-07-14] MEDS: guaiFENesin 600 MG TABCR PO SCH ×2 (10:39→20:54)
[2021-07-14] MEDS: MELATONIN 3 MG TAB PO SCH (20:54)
[2021-07-14] MEDS ORDERED: GABAPENTIN 100 MG CAP PO SCH (21:00)
[2021-07-15 07:01] LABS: BUN Creatinine Ratio 10.8 (10-20); Calcium 8.3 mg/dl (8.5-10.1); Creatinine Clr Calc Pharmacy 9.3 ml/min; Est GFR (African American) 7.3 ml/min; Est GFR (Non-African American) 6.3 ml/min
[2021-07-15] MEDS: ALBUT/IPRATROP 3MG/0.5MG NEB 3 ML VIAL INH SCH (07:37)
--- NOTE | 2021-07-15 08:08 | Hospitalist Progress Note ---
Date of Service July 15, 2021 Assessment & Plan Admission and Anticipated Discharge Date Admission Date: June 30, 2021 Results & Data Results & Data ([facility]) Vital Signs (Past 12 Hours) Vital Signs Temp Pulse Pulse Resp BP Pulse Ox 07/15/21 07:37 68 18 90 07/15/21 07:31 36.3 C L 70 16 123/56 L 91 07/14/21 22:22 36.8 C 81 16 108/57 L 90 Laboratory Results 07/15/21 07/14/21 07/14/21 Range/Units 05:34 10:33 10:33 Sodium 130 L (136-145) mmol/L Potassium 4.0 (3.5-5.1) mmol/L Chloride 97 L (98-107) mmol/L Carbon Dioxide 23 (21-32) mmol/L Anion Gap 10 (3-11) BUN 85 H (6-23) mg/dl Creatinine 7.84 H* (0.6-1.4) mg/dl Est Cr Clr Drug Dosing 9.3 ml/min Est GFR ( Amer) 7.3 ml/min Est GFR (Non-Af Amer) 6.3 ml/min BUN/Creatinine Ratio 10.8 (10-20) Glucose 123 H (70-99(Fasting)) mg/dl Calcium 8.3 L (8.5-10.1) mg/dl Magnesium 1.9 (1.7-2.4) mg/dl Ammonia 15.0 L (18-72) umol/L PG Care Time/CCT Total # of Minutes Spent Total Time Spent with Patient: Total time spent is greater than 50% in coordination of care (as documented) at patient's floor/unit and/or counseling patient: Coding
[2021-07-15] MEDS ORDERED: SODIUM CHLORIDE 1 GM TABLET PO SCH (09:00)
[2021-07-15] MEDS ORDERED: METOPROLOL SUCC 25MG EXT REL TAB PO SCH (09:00)
[2021-07-15] MEDS: AMIODARONE 200 MG TAB PO SCH (09:25)
[2021-07-15] MEDS: CETIRIZINE HCL 10 MG TABLET PO SCH (09:26)
[2021-07-15] MEDS: SEVELAMER HCL 800 MG TABLET PO SCH ×2 (09:26→13:12)
[2021-07-15] MEDS: DOCUSATE SODIUM 100 MG CAP PO SCH (09:27)
[2021-07-15] MEDS: ADVANCED PROBIOTIC 1250 MG CAPSULE PO SCH (09:27)
[2021-07-15] MEDS: HEPARIN SOD 5,000 UNIT/0.5 ML VIAL SQ SCH (09:27)
[2021-07-15] MEDS: guaiFENesin 600 MG TABCR PO SCH (09:27)
[2021-07-15] MEDS: SENNA 8.6 MG TAB PO SCH (09:28)
[2021-07-15] MEDS: UMECLIDINIUM/VILANTEROL 62.5/25MCG 7 PUFFS/INHALER INH SCH (09:28)
--- NOTE | 2021-07-15 09:43 | Nephrology Progress Note ---
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 Maintained on NCCPD * Rx 1.5% Deflex x 5 exchanges w/ 2 L x 80 min dwell, EDW 72 kg * Will provide NCCPD therapy tonight using a combination 1.5% + 2.5% dialysate * Patient is high average transporter and still has significant residual renal function contributing to his KT/V * Calcitriol to 0.25 mcg MWF. Continue Renvela 3 tab TID with meals. Boost 1 can TID (2) Hyponatremia: Plan: * Remains above EDW of 72kg. Will provide NCCPD therapy tonight using a combination 1.5% + 2.5% dialysate * Will provide NaCl 1 g po BID x 2 doses and liberalize Na in diet (3) Anemia: Plan: * Epogen 32319 units x 1 dose given on 07/01/2021 and 07/04/20 (4) HTN (hypertension): Plan: * BP controlled (5) Tremor: Plan: * Gabapentin dose has been reduced to 100 mg po QOD (6) Debility: Plan: * Care coordination working on placement at rehab. May need to explore options near his home in [facility] Admission and Anticipated Discharge Date Admission Date: June 30, 2021 Subjective Mr. Redmond was evaluated in his hospital room this morning. He completed NCCPD therapy last night w/ 980 cc UF. Mr. Redmond continues to experience tremors but was able to ambulate in the hallway yesterday Review of Systems Constitutional: + weakness; no fever Eyes: no problem reported Ear, Nose, Mouth, Throat: no problem reported Respiratory: no cough and no dyspnea Cardiovascular: no chest pain, no palpitations and no edema Gastrointestinal: no abdominal pain, no nausea, no vomiting and no diarrhea/loose stools Genitourinary: no dysuria, no urinary hesitancy or no hematuria Musculoskeletal: no back pain Integumentary: no rash Neurologic: no falls, no dizziness and no confusion Physical Exam Constitutional: + thin and + frail appearing Eyes: PERRL, conjunctivae normal, anicteric sclerae ENMT: external ear and nose normal, oropharynx normal Neck: trachea midline, no thyromegaly Respiratory: normal respiratory effort, lungs clear to auscultation Auscultation: + crackles (R base) Cardiovascular: RRR, no murmur, no edema Gastrointestinal (Abdomen): normal bowel sounds, soft, nontender, no hepatosplenomegaly Skin: no rashes, warm and dry Neurologic: awake; not confused Results & Data ([facility]) Vital Signs (Past 12 Hours) Vital Signs Temp Pulse Pulse Resp BP Pulse Ox 07/15/21 07:37 68 18 90 07/15/21 07:31 36.3 C L 70 16 123/56 L 91 07/14/21 22:22 36.8 C 81 16 108/57 L 90 Laboratory Results Laboratory Tests 07/15/21 05:34 Sodium 130 L Potassium 4.0 Chloride 97 L Carbon Dioxide 23 BUN 85 H Creatinine 7.84 H* Glucose 123 H Calcium 8.3 L PG Care Time/CCT Total # of Minutes Spent Total Time Spent with Patient: Total time spent is greater than 50% in coordination of care (as documented) at patient's floor/unit and/or counseling patient: Coding Level of Care Code 96644 Subseq Hosp Care Lvl 3 Diagnoses End-stage renal disease on peritoneal dialysis N18.6; Z99.2 Hyponatremia E87.1 Anemia D64.9 Anemia type: unspecified type HTN (hypertension) I10 Hypertension type: unspecified Tremor R25.1 Debility R53.81 (1) Anemia Anemia type: unspecified type Qualified Code(s): D64.9 - Anemia, unspecified (2) HTN (hypertension) Hypertension type: unspecified Qualified Code(s): I10 - Essential (primary) hypertension
--- NOTE | 2021-07-15 13:56 | Discharge Summary ---
Date of Service July 15, 2021 Admission HPI Per Admitting Provider Sisi Redmond is a 70 year old male iwth ESRD on peritoneal dialysis who presents to the ER after a fall this morning and generalized illness. He reports first feeling unwell on (4 days ago) with a fever. Reportedly he was feeling better the next day just with taking Tylenol. However on Wednesday started having fevers again therefore took an influenza and COVID-19 test at [facility] with was subsequently negative. He slowly became more short of breath with pleuritic right anterior chest pain. he became increasingly weak in both legs and fell yesterday and today. Today he was so weak he was unable to lift himself back up therefore his daughter advised calling 911. He did not take any of his medications this morning. He has end stage renal disease on peritoneal dialysis with Dr Romo. He also has COPD with FEV1/FVC 56%. He denies any abdominal pain, change in bowels. In the ER he is currently requiring 4LPM O2 via nasal cannula. He was referred to medicine for admission and ongoing management of pneumonia and hypoxia. Admission Exam Per Admitting Provider Constitutional: WD/WN, vitals as above Neck: trachea midline, no thyromegaly Respiratory: Auscultation: + rhonchi (bilaterally throughout); no wheezes Cardiovascular: Rate/Rhythm: regular rhythm and + tachycardic Heart Sounds: no murmur Extremities: normal capillary refill; no calf tenderness and no pedal edema Gastrointestinal (Abdomen): Inspection/Auscultation: abdomen normal to inspection (peritoneal catheter in place without surrounding erythema) and normal bowel sounds Percussion/Palpation: + abdomen tender (mild right sided) and abdomen soft; no guarding and abdomen not rigid Musculoskeletal: no cyanosis or clubbing, extremities motor strength 5/5 Skin: no rashes, warm and dry Neurologic: moves all extremities and awake; no focal motor deficits (no lateralizing deficit) and not confused Psychiatric: A+Ox3, euthymic affect Principal Diagnosis Sepsis, Pneumonia Discharge Exam General-- well developed, chronically ill appearing male sitting up at side of the bed, NAD HEENT: head normocephalic, atraumatic, pupils equal and reactive Neck- no JVD Resp: CTAB, no w/c/r, on room air CV: irregular, 1/6 SEB RUSB, no edema GI: +BS, soft, non-tender, +PD catheter Ext/MSK: moves all extremities, no focal deficits, CN intact Skin: cool, dry Pscyh: alert, oriented x 3, pleasant and cooperative Discharge Data Allergies Allergy/AdvReac Type Severity Reaction Status Date / Time lisinopril AdvReac Mild COUGH Verified 07/08/21 09:22 Consultations 06/30/21 10:38 ED Decision to Admit Stat 06/30/21 10:40 Consult Nephrology Routine 07/03/21 12:58 Consult Cardiology Routine Ordered Studies Abdomen/Pelvis CT 06/30/21 08:15 CT abd pelvis wo con CLINICAL HISTORY: right flank pain TECHNIQUE: Helical axial images of the abdomen and pelvis were obtained. Automated dose lowering techniques and/or adjustment according to patient size were utilized for this exam. This exam was performed without intravenous contrast. COMPARISON: Comparison is made to CT abdomen pelvis 02/03/2019 FINDINGS: Lower chest: For findings above the diaphragm, please see CT chest performed same day. Liver: Unremarkable. No focal lesions are seen. Gallbladder and biliary tree: No calcified gallstones. Normal caliber wall. No intra- or extrahepatic biliary ductal dilation. Pancreas: Unremarkable, no focal lesions. Spleen: Unremarkable. Adrenals: Bilateral adrenal thickening is unchanged. Kidneys and ureters: Multiple renal cysts are again seen, some with calcific components. Calcific components in a medial right renal cysts is new from prior exam. Bladder: Unremarkable. Reproductive organs: Unremarkable. Bowel: Unremarkable appearance of the bowel. The appendix is normal. Lymph nodes Retroperitoneal: Unremarkable. Mesenteric: Unremarkable. Pelvic: Unremarkable. Peritoneum: There is moderate ascites. A peritoneal drain is seen with its tip coiled in the pelvis. Vessels: Atherosclerotic calcifications are seen. Abdominal wall: Unremarkable. Bones: Unremarkable. IMPRESSION: 1. No evidence of hydronephrosis. Multiple cysts are again seen with some calcifications which have developed from the prior exam. 2. Moderate ascites. Peritoneal drain is in place. ACT 112: Negative or not required by law. Electronically signed by: Arthur Taylor M.D. 06/30/2021 9:[address] 06/30/21 08:15 CT OF THE CHEST WITHOUT IV CONTRAST CLINICAL HISTORY: Cough. Fall. COMPARISON STUDY: Chest CT February 03, 2019. Chest radiograph performed earlier today. TECHNIQUE: Axial images of the chest were obtained without IV contrast. Images were reviewed in the axial, sagittal, and coronal planes. IV contrast was not administered for this examination. Automated exposure control was utilized for the study. A dose lowering technique was utilized adhering to the principles of ALARA. FINDINGS: Moderate cardiomegaly is noted. There is no pericardial effusion. A enlarged right paratracheal lymph node on axial image 106 of 301 measures 2.3 x 1.9 cm. Mildly enlarged right hilar lymph node is present. There is no pneumothorax. A small right pleural effusion is noted. Lungs are suboptimally assessed due to respiratory motion. There is severe upper lobe predominant emphysema. Multifocal airspace opacities throughout the lungs are noted, most pronounced within the right middle and right lower lobes. Note is made of confluent airspace opacity within the right middle lobe or anterior segment of the right upper lobe. This likely has associated fissural fluid. Apparent locules of gas within this opacity likely reflect emphysematous lung although cavitation could appear similar. Additional nodular airspace opacities within the upper lobes are likely infectious. No acute fractures identified within visualized skeletal structures. Numerous cysts within visualized portions of the kidneys are noted. There is upper abdominal ascites. The abdomen and pelvis will be reported separately. Thoracic aorta is suboptimally assessed on this unenhanced exam but no evidence for traumatic injury. Mild dilatation of the ascending aorta, measuring 4.2 cm, is noted. IMPRESSION: 1. No acute traumatic findings within the chest on unenhanced exam. 2. Multiple foci of consolidation within the lungs suggestive of multifocal pneumonia. Confluent airspace opacity within the right middle lobe or anterior segment of the right upper lobe has associated fissural fluid and apparent locules of gas. This gas likely reflects emphysematous lung outlined by pleural fluid/consolidation. However, cavitation could appear similar. Additional airspace opacities are also likely infectious however are indeterminate. A follow-up chest CT in 2 months to ensure resolution is recommended to exclude the less likely possibility of a neoplastic process. 3. Mildly enlarged mediastinal and right hilar lymph nodes. These are likely reactive but can be assessed on follow-up CT. 4. Emphysema. 5. Small right pleural effusion. ACT 112: Negative or not required by law. Electronically signed by: Yunior Arroyo M.D. 06/30/2021 9:52 AM Chest X-Ray 06/30/21 08:15 XR chest 1V portable HISTORY: 70 years-old Male SEPSIS sepsis. Acute chest trauma status post fall COMPARISON: Chest radiograph 10/01/2019 TECHNIQUE: Portable AP view of the chest FINDINGS: Cardiac silhouette is upper limits of normal in size. Atherosclerosis of the aorta. No pneumothorax or large pleural effusion. Bilateral ill-defined interstitial opacities are similar to prior. There are patchy bilateral airspace densities, most pronounced within the right perihilar distribution and right lung base. Degenerative changes of the shoulders and spine. IMPRESSION: Right infrahilar and right basilar predominant airspace opacities are suggestive of multifocal pneumonia. ACT 112: Negative or not required by law. The above report was generated using voice recognition software. It may contain grammatical, syntax or spelling errors. Electronically signed by: Bethel Logan M.D. 06/30/2021 8:[address] 06/30/21 08:23 CT OF THE CERVICAL SPINE WITHOUT CONTRAST CLINICAL HISTORY: Fall. COMPARISON STUDY: Cervical spine CT September 03, 2012. TECHNIQUE: Helical axial images of the cervical spine were obtained without IV contrast. Sagittal and coronal reconstructions were viewed. Automated exposure control was utilized for the study. A dose lowering technique was utilized adhering to the principles of ALARA. FINDINGS: Alignment of the cervical spine is anatomic. Vertebral body heights ar e maintained. No acute cervical spine fracture or subluxation is present. There is no prevertebral edema. Facet joints are intact. Note is made of severe multilevel facet arthrosis. There is moderate multilevel disc space narrowing and osteophytosis within the cervical spine. Emphysema and suspected biapical scarring within the lung apices is partially imaged on this examination. The chest CT will be reported separately. IMPRESSION: No acute cervical spine fracture or subluxation. ACT 112: Negative or not required by law. Electronically signed by: Yunior Arroyo M.D. 06/30/2021 9:[address] 06/30/21 08:23 CT head/brain wo con CLINICAL HISTORY: fall Technique: Contiguous axial CT images of the head were acquired from the base of the skull to the vertex without intravenous contrast administration. Images were viewed in brain, subdural and bone windows. Automated dose lowering techniques and/or adjustment according to patient size were utilized for this exam. Comparison: Comparison is made to CT head 10/01/2019 Findings: The ventricles, basal cisterns, and cerebral sulci are normal. There is no acute intracranial hemorrhage or evidence of acute territorial infarction. Neither mass effect, shift of the midline structures, nor abnormal extra-axial fluid collections are shown. Encephalomalacia in the left periorbital frontal lobe is unchanged. Postsurgical changes are noted in the left frontal lobe, unchanged. Imaged portions of the paranasal sinuses and mastoid air cells are clear. The orbits appear normal. There are no acute fractures of the calvaria or scalp swelling. Impression: No acute intracranial hemorrhage, skull fractures, or scalp swelling. ACT 112: Negative or not required by law. Electronically signed by: Arthur Taylor M.D. 06/30/2021 9:30 AM Chest X-Ray 07/03/21 11:12 XR chest 1V portable CLINICAL HISTORY: R sided pneumonia, b/l wheeze; eval effusion/edema. COMPARISON STUDY: 06/30/[address] of the chest from 06/30/2021 TECHNIQUE: 1 view of the chest FINDINGS: Single frontal view of the chest demonstrates the cardiomediastinal silhouette t o be within normal limits. Compared to the previous examination, sharply defined fluid is seen within the minor fissure. This also evidence for left pleural effusion. There is evidence for minimal left basilar atelectasis. No definite confluent alveolar opacities are identified. There is no evidence for vascular congestion. There is no acute osseous pathology. IMPRESSION: Compared to the previous studies, fluid is again seen within the right minor fissure which is now sharply defined. Small left pleural effusion is also present with left basilar atelectasis. There are no focal alveolar opaci ties. ACT 112: Negative or not required by law. Electronically signed by: Da Samson M.D. 07/03/2021 11:41 AM Chest X-Ray 07/07/21 09:38 XR chest 1V portable CLINICAL HISTORY: follow up lobar pneumonia TECHNIQUE: Single frontal radiograph of the chest was obtained. Comparison: Comparison is made to chest one view 07/03/2021 FINDINGS: No lines and tubes are seen. Calcified aortic knob is seen. Diffuse emphysematous changes are again seen. Redemonstration of focal opacity in the right midlung which may represent atelectasis or consolidation. No evidence of pleural effusion or pneumothorax. IMPRESSION: Stable exam with redemonstration of right midlung focal opacity. ACT 112: Negative or not required by law. Electronically signed by: Arthur Taylor M.D. 07/07/2021 10:19 AM Hospital Course (1) Sepsis: 2nd to #2. resolved. Completed full courses of IV zosyn and IV doxycycline while inpatient and remained stable on room air. 2step prior to d/c without needs COVID, RSV, flu testing negative at admission. (2) Multifocal pneumonia: b/l, but RML was worst area of infection. Clinically resolved and received couse Zosyn/Doxy while inpatient Nurse navigator to arrange for repeat CT 6-8 weeks for re-eval R lung O2 has been weaned off and remains stable on room air. 2 step without needs (3) PAF (paroxysmal atrial fibrillation): Multiple symptomatic episodes since admission (was symptomatic at fast rates). Seen by cardiology earlier in stay - s/p amiodarone infusion with PO load. Amiodarone now 200mg BID. Also on low-dose metoprolol 12.5mg BID -- previously on metoprolol succinate 25mg daily -- switched back to succinate prior to discharge Rates controlled, still in afib Likely NOT an anticoagulation candidate given prior cerebral aneurysm w rupture. He also has a 2nd aneurysm on prior CTA head -- needing BP control --> Arrange for follow up with Dr Overton in the next 2 weeks for continued monitoring/adjustments of amiodarone in future (4) Paroxysmal atrial flutter: 2:1 conduction. See #3 above. (5) Acute respiratory failure with hypoxia: Secondary to pneumonia. Resolved. (6) COPD (chronic obstructive pulmonary disease): with exacerbation. resolved. completed IV/PO steroid course. Cont albuterol nebs BID. Cont Flutter valve and incentive mark. Mucinex BID. Cont home inhalers. (7) HTN (hypertension): controlled (8) End-stage renal disease on peritoneal dialysis: Appreciate [facility] [place] management -- adjustm ents made today, liberalized salt given continued hyponatremia and to liberalize at d/c. Patient added ZERO salt to foods prior and only got sodium from the foods. able to increase at d/c Continued sevelamer. To call his RN per Dr Underwood about d/c and they will arrange follow up care (9) Fall: Just prior to admission. 2nd to weakness in setting of sepsis/pneumonia. weakness has improved but needs ongoing PT/OT and rehab post-discharge --> may be candidate for home with therapy per most recent eval and this was arranged. Also provided with rx for walker. (10) Chest pain: right sided, present on admission. resolved. was 2nd to trauma from his pre-admission fall (11) Tobacco use disorder: counseled to quit (12) Tremor: per the EMR this is chronic. No Rx at this time but could consider primidone or similar as outpatient. Ammonia wnl. Seems like essential tremor. Able to undertake tasks without difficulty but stated nepho may have mention something about having neuro see in future. --> Discussed with nepho and did not state this but did rec to decrease gabapentin to 100mg QOD/maybe medication related? -- changed at d/c also could be from the chronic hyponatremia-- to f/u at d/c with nephro. if continues despite improvement with above consider neuro workup but did not seem to interfere with activities (13) Metabolic encephalopathy: resolved (14) History of cerebral aneurysm repair: early , at [facility] [place], operated by [facility] previous CTA head with small 3x4mm aneurysm nothing to do at this time (15) Elevated troponin: likely myocardial demand ischemia from rapid a.fib/flutter, sepsis, and pneumonia doubt ACS this was earlier in his stay (16) Hyponatremia: defer Rx to nephrology Salt tabs added 07/13, repeat Na 130, prior 126 fortunately does not appear symptomatic from the low Na outside of possible tremor? (17) DVT prophylaxis: heparin 5000 BID while inpatient insomnia -- add melatonin 3mg HS scheduled while inpatient I certify that this patient is under my care and that I, or a physicians assistant financial accountant working with me, had a face to-face encounter that meets the home health [id number] encounter requirements with this patient. The encounter with the patient was in whole, or in part, for the following medical condition, which is the primary reason for home health care (list medical condition): RN, PT I certify that, based on my findings, the following services are medically necessary home health services: My clinical findings support the need for the above services because: PT Assessment for Endurance / Balance / Strength PT Eval for Safety and Mobility PT Eval for Safety, Gait Training, Assistive Devices PT Gait and Balance Training, Strengthening and Safety Skilled Nsg Assessment S/S to Report to Provider Further, I certify that my clinical findings support that this patient is homebound (i.e. absences from home require considerable and taxing effort and are for medical reasons or orthodoxy services or infrequently or of short duration when for other reasons) because: Assistance of 1 Person for Ambulation/Activities Certification for Home Health Services: Based on the above findings, I certify that this patient is confined to the home and needs intermittent care home care, physical therapy and/or speech therapy or continues to need occupational therapy. The patient is under my care, and I have initiated the establishment of the plan of care. This patient will be followed by a physician who will periodically review the plan of care. Total Time Total Time Spent Total Time Spent (In Minutes): 50 Discharge Plan Discharge Items Patient Disposition: Home - Home Health Services Reason For Visit: SEPSIS,MULTIFOCAL PNEUMONIA Discharge Diagnosis: Sepsis, Pneumonia Goals: You have been hospitalized for an acute medical problem. During your stay at [facility], we have made an effort to correct the problem that brought you to the hospital while keeping you as comfortable as possible. Medications were used to bring your condition under control and your discharge instructions will include directions for any medications you should take after leaving the hospital. Please make sure you see your Primary Care Provider as part of your follow up plan. Activity: As commented below Activity Comment: advance with therapy as tolerated Non-emergency contact: Primary Care Provider, Carbonation Equipment Operator and Early Childhood Call non-emergency contact if: you have any medication questions, your symptoms worsen, your pain is not controlled and you have a fever Follow-up/Referrals: Serjio Overton MD [Physician] - 07/31/21 10:30 am () Elroy Underwood MD [Physician] - 07/22/21 1:30 pm Tj Avalos MD [Primary Care Provider] - ([facility] Diet: Dialysis Renal and Heart Healthy Addtl Attending Provider Instructions: You have been hospitalized for sepsis due to a multifocal pneumonia. You completed a course of antibiotics while inpatient as well as steroids for COPD, and these have finished without need for further antibiotics at discharge. You should continue to use the incentive spirometer and flutter valve to ensure taking deep breaths, and improvement in breathing. You will need repeat cat scan of your chest in 6-8 weeks to ensure resolution. This can be done by your PCP. You were seen by cardiology for fast heart rate and started on amiodarone which will be continued 200mg by mouth twice daily. You will need to have follow up with Dr Overton in 1-3 weeks after discharge. You were seen by nephrology for your peritoneal dialysis and per Dr Underwood, are able to liberalize salt in your diet as this lower levels have been from reduced intake, and can also be contributing to tremors, which should improve as levels are increasing. You will need to contact your nurse to notify of discharge so that they can continue to assist with needs regarding this. You have been evaluated by therapy and initially during beginning part of the stay had recommendations for acute rehab but you have made progress and arrangements have been made for home health. Your gabapentin has also been decreased to every other night, to help with tremor/falls as well to see if this is effective. If increased pain/neuropathy you may need to increase back to once daily in the evening. Please return to the emergency department for any fever, chest pain, increased shortness of breath, or for any other symptoms concerning for you. Please follow up with PCP in the next 7-10 days to monitor your progress after discharge. It has been a pleasure being a part of the medical team providing for you while you have been in the hospital. Take care! Pending Studies at Discharge: No Stand-Alone Forms: [facility], Smoking Cessation Medications and DC Order Prescriptions: New amiodarone 200 mg Tablet 200 mg PO BIDM 30 Days Qty: 60 RF: 1 Continued (DME) nebulizer accessories Kit See Rx Instructions .ROUTE .MEDSUPPLY Qty: 1 RF: 3 albuterol sulfate [ProAir HFA] 90 mcg/actuation HFA aerosol inhaler 1 inh INH Q6H PRN (Reason: shortness of breath or wheezing) Qty: 18 RF: 3 ipratropium-albuterol 0.5 mg-3 mg(2.5 mg base)/3 mL solution for nebulization 3 ml INH QAM Qty: 180 RF: 5 Stiolto Respimat 2.5-2.5 mcg/actuation mist 2 puff INH QAM Qty: 4 RF: 5 sevelamer carbonate [Renvela] 800 mg tablet 2,400 mg PO TIDM RF: 0 cetirizine 10 mg tablet 10 mg PO QAM RF: 0 metoprolol succinate 50 mg tablet extended release 24 hr 25 mg PO DAILY RF: 0 calcitriol 0.5 mcg capsule 1.5 mcg PO UD RF: 0 polyethylene glycol 3350 [Miralax] 17 gram/dose Powder 17 g PO BID RF: 0 guaifenesin [Mucinex] 600 mg Tablet Extended Release 12hr 600 mg PO BID RF: 0 Changed gabapentin 100 mg capsule 100 mg PO Q2D Qty: 0 RF: 0 Discharge Orders: Discharge Order (Routine); Ordered 07/15/21 Ordered By: Jessica Saavedra Admission Data Admit Date/Time: 06/30/21 12:13 Attending Provider: Catrachito Kennedy Admit Provider: Catrachito Klein Primary Care Provider: Tj Avalos Other Providers: [facility] ; Catrachito Klein ; Radha Romo ; Serjio Overton ; [facility] Other Interventions: Discharge Summary Assessment (RN) Last Done: 07/15/21 13:50 Supervising Physician Co-Signing Physician Notes Attending Attestation and Discharge Note: Pt seen/examined, chart reviewed, discharge care plan d/w PA Jessica Saavedra. I agree with the reyes components of her discharge documentation. 70yo male with ESRD on home PD, prior h/o brain aneurysm with rupture/bleeding, and COPD who presented with acute hypoxic resp failure 2nd to multifocal pneumonia, treated with broad-spectrum IV antibiotics. Peak O2 requirement was 10 Liters. Also treated for COPD exacerbation with steroids/bronchodilators. O2 ultimately weaned to room air. Stay was complicated by rapid a.fib/flutter requiring consultation with cardiology and initiation of IV/PO amiodarone. Rates were controlled with amiodarone/metoprolol. He is not a candidate due to prior intracerebral hemorrhage from aneurysm rupture. Plan initially was for rehab at SNF; however, patient made good improvement in his strength/walking and ultimately was able to return home. [facility] [place] PD recommendations while here. Discharge Exam - gen - NAD mouth - MMM neck - no JVD heart - irregular, s1 s2 lungs - minimal rales on Right, none on Left; no wheezes abd - soft NT ND BS+; PD catheter in place, insertion site clean ext - no edema, pulses 1-2+ b/l Of note - the patient completed his entire course of antibiotics while hospitalized. Catrachito Kennedy MD
== END 2021-07-15 16:13 | disposition home health service (06) | DRG 871 ==
LOC: ED 08:07 → EDINP 12:13 → SUATTDRO 12:13 → 1E 12:57 → 2S 07-06 18:45 → 3E 07-09 15:44

== ENCOUNTER 2022-08-29 14:22 | Inpatient (IN) ==
--- NOTE | 2022-08-29 14:43 | Emergency Department Note ---
Impression & Plan Symptomatic bradycardia, End-stage renal disease on peritoneal dialysis, HTN (hypertension) ED Provider Note NAME: ALEX LAMAS AGE: 72 SEX: M : 1950 ARRIVES VIA: Walk-In INFORMANT: Patient, ED PROVIDER(S): Juancarlos Murrieta MD CHIEF COMPLAINT: Weakness, legs gave out MEDICAL DECISION MAKING: Patient presents from home due to concern for leg weakness. The patient did have blood work completed and IV was established pacer pads were placed as the patient was bradycardic in the 30s. Patient reports that he does not take anything to lower his heart rate. Per review the patient's medication list he is on amiodarone. I did review the patient's medication list with the patient's family member at bedside. The patient was switched to Coreg 2 weeks ago but still takes amiodarone. Patient's blood work shows normal white count hemoglobin of 12.8 normal platelet count. Kidney function creat at 12 but the patient has had received peritoneal dialysis. Potassium is normal. Patient's calcium is low. Patient was ordered a second gram of calcium gluconate. Phosphorus is elevated. Mag is normal. Troponin 128. Chest x-ray is negative. Believe this is likely demand related given the patient's significant bradycardia. COVID-negative. I did speak with the on-call hospitalist service Dr. Rodriguez and the patient was admitted to the medicine service. Patient's heart rate has improved after receiving additional medications from the 30s now into the high 40s low 50s. Given the patient's significant symptomatic bradycardia upon presentation do believe the patient would benefit from admission at this time. Critical Care: I have personally spent 35 minutes of critical care time in direct management of this patient. This includes bedside care, interpretation of diagnostic studies, and testing, discussion with consultants, patient, and family members, and other require inpatient management activities. This 35 minutes is in excess of all separately billable procedures. Prior /Outside records reviewed: Did review the patient's discharge summary from [facility] in June 2021. The patient is a 70-year-old with a known history of ESRD on peritoneal dialysis. Patient does follow with Dr. Dewey and also has a history of COPD. I also did review the patient's most recent potassium completed within the last month which was in the fours. Differential diagnosis: Infection, dehydration, metabolic abnormality, hypo/hyperglycemia, electrolyte disturbance, anemia, hypoxia, arrhythmia, dehydration, hyperkalemia among others were considered Diagnostics, as interpreted by me: ECG: Sinus with bradycardia, ventricular rate of 31, prolonged WA wide QRS, left bundle branch block pattern appear to be P waves before each QRS. Repeat EKG interpreted by me Sinus bradycardia with first-degree AV block, ventricular rate of 39 prolonged WA, wide QRS prolonged QT. Repeat EKG interpreted by me Sinus bradycardia with first-degree AV block, ventricular rate 46 prolonged WA, wide QRS and prolonged QT. Ventricular rate has increased. Cardiac monitoring: An order was placed for continuous cardiac monitoring. The monitor shows a rate of 32 with bradycardic and regular rhythm. Patient was placed on pulse oximetry Medical decision rules: None Imaging studies: See below HPI: Patient presents from home due to concern for weakness. The patient did have some weakness to where his legs gave out today. Patient states that at rest he feels okay but with any sort of exertion or activity seems to worsen. Patient denies any nausea vomiting or diarrhea. The patient does follow with Dr. Romo. Patient does not believe that he takes anything to lower the heart rate. The patient did not take any extra doses but did take his medications today. Review of the patient's medication list does show that he is on metoprolol as well as amiodarone. Patient denies any nausea vomiting or diarrhea no infectious symptoms. The patient does undergo peritoneal dialysis nightly. The patient does not have an AV fistula and does not undergo hemodialysis. The patient does make a small amount of urine. Patient states that his appetite has been okay. PAST MEDICAL HISTORY: See Below PAST SURGICAL HISTORY: See Below SOCIAL HISTORY: See Below HOME MEDICATIONS: See Below ALLERGIES: See Below VITALS: See Below PHYSICAL EXAMINATION: GENERAL: NAD, wearing a mask, non-toxic. Wearing glasses. EYE EXAM: Normal conjunctiva. PERRL, no anisocoria and EOM's grossly intact w/o pain. NECK: Supple, no nuchal rigidity, no adenopathy, non-tender. No signs of meningismus. FROM of the neck with good chin to chest and neck extension. No stridor. LUNGS: Clear to auscultation. Normal chest wall mechanics. HEART: Bradycardic and regular, no MRG. ABDOMEN: Abdomen soft, PD catheter within the left lower quadrant, bandage in place, no active drainage or TTP non-tender, normo-active bowel sounds, no masses, no rebound or guarding. BACK: No CVA TTP. SKIN: No rashes and no bruising. UPPER EXTREMITIES: Upper extremities are grossly normal. LOWER EXTREMITIES: Grossly normal, no edema. NEURO EXAM: A&O x3, cranial nerves II-XII grossly intact, normal speech, moves all 4 extremities. Past Med/Surg History Medical History (Updated 08/30/22 @ 10:52 by Juancarlos Murrieta MD) Alzheimer disease Anemia Benign neoplasm of skin of nose removed once Benign prostate hyperplasia CCPD (continuous cycling peritoneal dialysis) status port in place left abdomen--dialysis daily at home; second port that has been placed for dialysis. Chronic obstructive pulmonary disease inhaler/nebulizer daily Diverticulosis Gout hx Hemorrhoids "not currently flared" History of marijuana use daily Hx of atrial flutter 06/2021, hospitalized w/pneumonia for almost 3 weeks; dx atrial flutter- currently amiodarone; f/u dr. adkins, al Hypercalcemia Hypertension Intracranial hemorrhage 2012 Low back pain On home oxygen therapy 2L N/C at hs Polycystic kidney disease, adult type (09/03/12) Secondary hyperparathyroidism of renal origin Tremor of both hands Vitamin D deficiency Surgical History History of cerebral aneurysm repair 2012 [facility] [place]--clips/coils in place History of colonoscopy History of tooth extraction all teeth Family History Other No family history of adverse response to anesthesia Denies family history of Myocardial infarction Social History Smoking Status: Former smoker Second Hand Exposure: No; Do You Dip or Chew Tobacco: No; Tobacco Cessation Education Requested by Patient: No Hx Alcohol Use: No Hx Substance Use: No Preferred Language: Bengali Communication Ability: Effective Blind Escort Required: No Beliefs That Will Affect Care: None marital status: Single Current Living Situation: Spouse Current Living Situation Comment: Patient lives with granddaughter, Leti, and granddaughter spouse and kids How many Children do You have: 1 Other Information That Helps Us Care for You: No Feels Safe at Home: Yes Safety Concerns: Feels Safe At This Time Assistive Devices: None Allergies Allergies Allergy/AdvReac Type Severity Reaction Status Date / Time lisinopril AdvReac Mild COUGH Verified 08/29/22 17:36 Home Meds Home Medications Medication Instructions Recorded Confirmed calcitriol 0.5 mcg capsule 1 mcg PO QAM 06/30/21 08/29/22 polyethylene glycol 3350 17 17 g PO BID 06/30/21 08/29/22 gram/dose oral powder (Miralax) docusate sodium 100 mg capsule 400 mg PO BID 07/31/21 08/29/22 (Colace) cinacalcet 30 mg tablet (Sensipar) 30 mg PO DAILY 03/27/22 08/29/22 diphenhydramine HCl 50 mg capsule 50 mg PO HS 03/27/22 08/29/22 guaifenesin 1,200 mg tablet, 1,200 mg PO BID 03/27/22 08/29/22 extended release 12 hr (Mucinex) acetaminophen 650 mg 1,300 mg PO Q12H 08/29/22 08/29/22 tablet,extended release albuterol sulfate 90 mcg/actuation 2 inh inhalation Q6H PRN shortness 08/29/22 08/29/22 aerosol inhaler (ProAir HFA) of breath or wheezing amiodarone 200 mg tablet 200 mg PO DAILY 08/29/22 08/29/22 carvedilol 25 mg tablet 25 mg PO BID 08/29/22 08/29/22 epinephrine 0.3 mg/0.3 mL 0.3 mg IM Q4H PRN as directed 08/29/22 08/29/22 injection, auto-injector (EpiPen) ipratropium 0.5 mg-albuterol 3 mg 3 ml inhalation QAM 08/29/22 08/29/22 (2.5 mg base)/3 mL nebulization soln Previous Rx's Medication Instructions Recorded nebulizer accessories #1 ea 10/30/19 tiotropium 2.5 mcg-olodaterol 2.5 2 puff inhalation QAM #4 grams 02/18/21 mcg/actuation mist for inhalation (Stiolto Respimat) gabapentin 100 mg capsule 100 mg PO Q2D #0 caps 07/15/21 Results & Data (ED) Vital Signs Vital Signs - 24 hr 08/29/22 14:26 08/29/22 14:37 08/29/22 14:57 Temperature 36.6 C Temperature Source Temporal Artery Scan Pulse Rate 49 L 35 L Pulse Rate [Finger] Respiratory Rate 18 Respiratory Effort / Characteristics Non-Labored Spontaneous Respiratory Depth Normal Blood Pressure 116/55 L Blood Pressure [Left Arm] Blood Pressure Mean 75 Blood Pressure Mean [Left Arm] Pulse Oximetry 97 Oxygen Delivery Method Room Air Sepsis Recent Fever Within 48 Hours No Sepsis New/Unexplained Change in Mental Status N/A No Sepsis Action Taken by Nursing No Action Required No Action Required 08/29/22 14:23 08/29/22 14:53 Temperature Temperature Source Pulse Rate 43 L Pulse Rate [Finger] 42 L Respiratory Rate 16 16 Respiratory Effort / Characteristics Respiratory Depth Blood Pressure Blood Pressure [Left Arm] 131/63 Blood Pressure Mean Blood Pressure Mean [Left Arm] 85 Pulse Oximetry 95 95 Oxygen Delivery Method Sepsis Recent Fever Within 48 Hours Sepsis New/Unexplained Change in Mental Status Sepsis Action Taken by [facility] Medications Current Medication List: was personally reviewed by me Laboratory Data Attestation: I reviewed the patient's lab results. 08/30/22 04:25 08/30/22 04:25 Lab Results 08/29/22 08/29/22 08/29/22 Range/Units 14:44 14:44 14:44 WBC 6.90 (4.8-10.8) K/ul RBC 4.37 L (4.70-6.10) M/uL Hgb 12.8 L (14.0-18.0) g/dl POC Hgb (14.0-18.0) g/dl Hct 40.4 L (42.0-52.0) % POC Hct (42-52) % MCV 92.4 (80.0-100.0) fL MCH 29.3 (25.0-34.0) pg MCHC 31.7 L (32.0-36.0) g/dL RDW Std Deviation 52.2 H (36.4-46.3) fL RDW Coeff of Giovana 15.3 H (11.5-14.5) % Plt Count 298 (130-400) K/uL MPV 11.1 (9.4-12.4) fL Immature Gran % (Auto) 0.3 % Neut % (Auto) 67.8 % Lymph % (Auto) 12.2 % Sibley % (Auto) 11.4 % Eos % (Auto) 7.0 % Baso % (Auto) 1.3 % Neut # (Auto) 4.68 (1.40-6.50) K/uL Lymph # (Auto) 0.84 L (1.2-3.4) K/uL Sibley # (Auto) 0.79 H (0.11-0.59) K/uL Eos # (Auto) 0.48 (0-0.50) K/uL Baso # (Auto) 0.09 (0-0.2) K/uL Immature Gran # (Auto) 0.02 (0.01-0.20) K/uL POC Sodium (135-144) mmol/L Sodium 140 (136-145) mmol/L POC Potassium (3.3-5.0) mmol/L Potassium 4.3 (3.5-5.1) mmol/L POC Chloride (101-112) mmol/L Chloride 97 L (98-107) mmol/L Carbon Dioxide 27 (21-32) mmol/L POC Total CO2 (24-31) mmol/L Anion Gap 16 H (3-11) POC Anion Gap (16-25) mmol/L POC BUN (7-18) mg/dl BUN 81 H (6-23) mg/dl Creatinine 12.19 H* (0.6-1.4) mg/dl POC Creatinine (0.6-1.3) mg/dl Est Cr Clr Drug Dosing 6.0 ml/min Est GFR ( Amer) 4.2 ml/min Est GFR (Non-Af Amer) 3.6 ml/min BUN/Creatinine Ratio 6.6 L (10-20) Glucose 82 (70-99(Fasting)) mg/dl POC Glucose (other) (70-99) mg/dl Calcium 7.7 L (8.5-10.1) mg/dl POC Ioniz Calcium Sesar (1.12-1.32) mmol/l Phosphorus 7.3 H (2.5-4.9) mg/dl Magnesium 2.1 (1.7-2.4) mg/dl Total Bilirubin 0.4 (0.2-1.0) mg/dl AST 7 L (13-39) U/L ALT 9 (7-52) U/L Alkaline Phosphatase 83 (34-104) U/L Troponin I High Sens 128.1 H* (0-20) pg/ml Total Protein 6.3 (6.0-8.3) gm/dl Albumin 3.6 (3.4-5.0) gm/dl Globulin 2.7 (2.5-4.0) gm/dl Albumin/Globulin Ratio 1.3 (0.9-2) TSH 3.003 (0.300-4.500) uIu/ml SARS-CoV-2, RNA, NAAT (NEGATIVE) 08/29/22 08/29/22 Range/Units 14:49 15:12 WBC (4.8-10.8) K/ul RBC (4.70-6.10) M/uL Hgb (14.0-18.0) g/dl POC Hgb 14.3 (14.0-18.0) g/dl Hct (42.0-52.0) % POC Hct 42 (42-52) % MCV (80.0-100.0) fL MCH (25.0-34.0) pg MCHC (32.0-36.0) g/dL RDW Std Deviation (36.4-46.3) fL RDW Coeff of Giovana (11.5-14.5) % Plt Count (130-400) K/uL MPV (9.4-12.4) fL Immature Gran % (Auto) % Neut % (Auto) % Lymph % (Auto) % Sibley % (Auto) % Eos % (Auto) % Baso % (Auto) % Neut # (Auto) (1.40-6.50) K/uL Lymph # (Auto) (1.2-3.4) K/uL Sibley # (Auto) (0.11-0.59) K/uL Eos # (Auto) (0-0.50) K/uL Baso # (Auto) (0-0.2) K/uL Immature Gran # (Auto) (0.01-0.20) K/uL POC Sodium 139 (135-144) mmol/L Sodium (136-145) mmol/L POC Potassium 4.3 (3.3-5.0) mmol/L Potassium (3.5-5.1) mmol/L POC Chloride 98 L (101-112) mmol/L Chloride (98-107) mmol/L Carbon Dioxide (21-32) mmol/L POC Total CO2 26 (24-31) mmol/L Anion Gap (3-11) POC Anion Gap 20.0 (16-25) mmol/L POC BUN 70 H (7-18) mg/dl BUN (6-23) mg/dl Creatinine (0.6-1.4) mg/dl POC Creatinine 13.7 H* (0.6-1.3) mg/dl Est Cr Clr Drug Dosing ml/min Est GFR ( Amer) ml/min Est GFR (Non-Af Amer) ml/min BUN/Creatinine Ratio (10-20) Glucose (70-99(Fasting)) mg/dl POC Glucose (other) 83 (70-99) mg/dl Calcium (8.5-10.1) mg/dl POC Ioniz Calcium Sesar 0.92 L (1.12-1.32) mmol/l Phosphorus (2.5-4.9) mg/dl Magnesium (1.7-2.4) mg/dl Total Bilirubin (0.2-1.0) mg/dl AST (13-39) U/L ALT (7-52) U/L Alkaline Phosphatase (34-104) U/L Troponin I High Sens (0-20) pg/ml Total Protein (6.0-8.3) gm/dl Albumin (3.4-5.0) gm/dl Globulin (2.5-4.0) gm/dl Albumin/Globulin Ratio (0.9-2) TSH (0.300-4.500) uIu/ml SARS-CoV-2, RNA, NAAT NEGATIVE (NEGATIVE) Administered Medications Amiodarone HCl (Amiodarone 200 Mg Tab) 200 mg PO DAILY NÉSTOR Stop: 09/29/22 08:59 Last Admin: 08/30/22 08:13 Dose: Not Given Documented By: OO Calcitriol (Calcitriol 0.25 Mcg Capsule) 1 mcg PO QAM NÉSTOR Stop: 09/29/22 08:59 Last Admin: 08/30/22 08:10 Dose: 1 mcg Documented By: OO Docusate Sodium (Docusate Sodium 100 Mg Cap) 400 mg PO BID NÉSTOR Stop: 09/28/22 20:59 Last Admin: 08/30/22 08:13 Dose: Not Given Documented By: Admin: 08/29/22 21:38 Dose: 400 mg Documented By: NAHED Gabapentin (Gabapentin 100 Mg Cap) 100 mg PO Q2D NÉSTOR Stop: 09/28/22 19:59 Last Admin: 08/29/22 21:39 Dose: 100 mg Documented By: NAHED Guaifenesin (Guaifenesin 600 Mg Tabcr) 1,200 mg PO BID NÉSTOR Stop: 09/28/22 20:59 Last Admin: 08/30/22 08:11 Dose: 1,200 mg Documented By: Admin: 08/29/22 21:39 Dose: 1,200 mg Documented By: NAHED Polyethylene Glycol (Polyethylene (Miralax) 17 Gm Pack) 17 gm PO BID NÉSTOR Stop: 09/28/22 20:59 Last Admin: 08/30/22 08:13 Dose: Not Given Documented By: Admin: 08/29/22 21:41 Dose: Not Given Documented By: NAHED Umeclidinium/Vilanterol (Umeclidinium/Vilanterol 62.5/25mcg 7 Puffs/Inhaler) 1 puffs INH QAM NÉSTOR Stop: 09/29/22 08:59 Last Admin: 08/30/22 08:13 Dose: 1 puffs Documented By: AUGUSTINA Discontinued Medications Magnesium Sulfate/Dextrose (Magnesium Sulfate / D5w) 1 gm in 100 mls @ 200 mls/hr IV NOW STA Stop: 08/29/22 15:24 Last Infusion: 08/29/22 15:49 Dose: 0 mls/hr Documented By: Admin: 08/29/22 14:58 Dose: 200 mls/hr Documented By: DANNY Calcium Gluconate () 1,000 mg in 60 mls @ 240 mls/hr IV NOW STA Stop: 08/29/22 16:08 Last Infusion: 08/29/22 17:22 Dose: 0 mls/hr Documented By: Admin: 08/29/22 16:06 Dose: 240 mls/hr Documented By: DANNY Calcium Gluconate () 1,000 mg in 60 mls @ 240 mls/hr IV NOW STA Stop: 08/29/22 17:00 Last Infusion: 08/29/22 18:24 Dose: 0 mls/hr Documented By: Admin: 08/29/22 17:15 Dose: 240 mls/hr Documented By: DANNY Magnesium Sulfate/Dextrose (Magnesium Sulfate 1gm / D5w Bag) Confirm Administered Dose 1 gm IV .STK-MED ONE Stop: 08/29/22 14:57 Last Admin: 08/29/22 15:09 Dose: Not Given Documented By: DANNY Imaging Data Radiologist's Impression: Chest X-Ray 08/29/22 14:53 XR chest 1V portable CLINICAL HISTORY: weakness TECHNIQUE: Single frontal radiograph of the chest was obtained. Comparison: Comparison is made to chest radiograph 07/07/2021 FINDINGS: No lines and tubes are seen. Cardiomegaly is noted. The aortic arch is armando cified. The lungs are clear. No evidence of pleural effusion or pneumothorax. IMPRESSION: No acute chest disease. ACT 112: Negative or not required by law. Electronically signed by: Arthur Taylor M.D. 08/29/2022 3:27 PM Discharge Plan Visit Data Chief Complaint: Illness Stated Complaint: WEAKNESS, SHAKY - ON DIALYSIS ED Provider: Juancarlos Murrieta Discharge Problem: Symptomatic bradycardia, End-stage renal disease on peritoneal dialysis, HTN (hypertension) Patient Disposition: Admitted As Inpatient Discharge Instructions Interventions: ED Discharge Assessment Last Done: 08/29/22 18:29
[2022-08-29] MEDS ORDERED: MAGNESIUM SULFATE / D5W 1 GM/100 ML BAG IV STA (14:55)
[2022-08-29] MEDS ORDERED: MAGNESIUM SULFATE 1GM / D5W BAG IV ONE (14:56)
[2022-08-29 15:02] LABS: iSTAT Creatinine 13.7 mg/dl (0.6-1.3); iSTAT Hemoglobin 14.3 g/dl (14.0-18.0); iSTAT Ionized Calcium 0.92 mmol/l (1.12-1.32); iSTAT Potassium 4.3 mmol/L (3.3-5.0)
--- NOTE | 2022-08-29 15:28 | XRay Report ---
XR chest 1V portable CLINICAL HISTORY: weakness TECHNIQUE: Single frontal radiograph of the chest was obtained. Comparison: Comparison is made to chest radiograph 07/07/2021 FINDINGS: No lines and tubes are seen. Cardiomegaly is noted. The aortic arch is calcified. The lungs are clear . No evidence of pleural effusion or pneumothorax. IMPRESSION: No acute chest disease. ACT 112: Negative or not required by law. Electronically signed by: Arthur Taylor M.D. 08/29/2022 3:27 PM
[2022-08-29] MEDS ORDERED: CALCIUM GLUCONATE 1,000 MG/60 ML BAG IV STA ×2 (15:54→16:46)
[2022-08-29 15:57] LABS: Basophils # (auto) 0.09 K/uL (0-0.2); Basophils % (auto) 1.3 %; Eosinophils # (auto) 0.48 K/uL (0-0.50); Hematocrit (blood only) 40.4 % (42.0-52.0); Hemoglobin 12.8 g/dl (14.0-18.0); Immature Granulocytes # (auto) 0.02 K/uL (0.01-0.20); Immature Granulocytes % (auto) 0.3 %; Lymphocytes # (auto) 0.84 K/uL (1.2-3.4); Lymphocytes % (auto) 12.2 %; Mean Corpuscular Hemoglobin 29.3 pg (25.0-34.0); Mean Corpuscular Hgb Conc 31.7 g/dL (32.0-36.0); Mean Corpuscular Volume 92.4 fL (80.0-100.0); Mean Platelet Volume 11.1 fL (9.4-12.4); Monocytes # (auto) 0.79 K/uL (0.11-0.59); Monocytes % (auto) 11.4 %; Neutrophils # (auto) 4.68 K/uL (1.40-6.50); Neutrophils % (auto) 67.8 %; Platelet Count 298 K/uL (130-400); RDW Coefficient of Variation 15.3 % (11.5-14.5); RDW Standard Deviation 52.2 fL (36.4-46.3); Red Blood Count 4.37 M/uL (4.70-6.10)
[2022-08-29 16:24] LABS: Albumin Globulin Ratio 1.3 (0.9-2); Albumin Level 3.6 gm/dl (3.4-5.0); BUN Creatinine Ratio 6.6 (10-20); Bilirubin,Total 0.4 mg/dl (0.2-1.0); Calcium 7.7 mg/dl (8.5-10.1); Est GFR (African American) 4.2 ml/min; Est GFR (Non-African American) 3.6 ml/min; Globulin 2.7 gm/dl (2.5-4.0); Phosphorus 7.3 mg/dl (2.5-4.9); Potassium 4.3 mmol/L (3.5-5.1); Total Protein 6.3 gm/dl (6.0-8.3); Troponin I High Sensitivity 128.1 pg/ml (0-20)
[2022-08-29 17:17] LABS: Magnesium 2.1 mg/dl (1.7-2.4)
--- NOTE | 2022-08-29 18:47 | History & Physical Report ---
Date of Service August 29, 2022 Assessment & Plan (1) Bradycardia: Plan: Noted on admission to have HR 30s, received calcium gluconate and magnesium sulfate IV in ER for electrolyte disturbance and patient's HR in 50s on my exam. Is on Coreg BID, will hold this. Suspect this may be contributory to patient's weakness. However, it is worth noting that patient was recommended for SNF rehab on admission in 2021, however could not find facility willing to assume care of peritoneal dialysis and was discharged home with home health PT. Cardiology consult appreciated. Telemetry for cardiac monitoring, pace if HR <30. (2) End-stage renal disease on peritoneal dialysis: Plan: On nightly peritoneal dialysis, admission creatinine 12 with K of 4.3. Case personally discussed with Nephrology (Dr. Cordon) and appreciate recommendations: for dialysis tomorrow, unable to arrange this evening. Renal dosing for all medications. Dialysis renal diet. (3) COPD (chronic obstructive pulmonary disease): Plan: History, not on supplemental oxygen at home, and not requiring oxygen on admission. CXR without acute process. Continue albuterol prn, formulary equivalent daily inhalers, and Mucinex. 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 On daily amiodarone therapy, will continue this. Telemetry as above. (5) Intracranial hemorrhage: Plan: History of, Hgb stable and in fact higher than it has been in recent checks. Continue Auryxia for iron deficiency. CT Head without evidence of acute process. (6) HTN (hypertension): Plan: BP 150s systolic on admission. Holding Coreg for bradycardia. (7) Alzheimer disease: Plan: Performs most ADLs at home but is forgetful about certain things. Delirium precautions. (8) Secondary hyperparathyroidism (of renal origin): Plan: Continue Sensipar. Plan FULL CODE SCDs for DVT ppx, defer Lovenox given Hx ICH x2 Dialysis renal diet Telemetry status History of Present Illness Chief Complaint: Arm and leg weakness Primary Care Provider: Mia St 72-year-old male past medical history significant for COPD not on chronic oxygen, ESRD on peritoneal dialysis nightly, history of cerebral aneurysm/hemorrhage, paroxysmal A-fib not on chronic anticoagulation, anemia of chronic disease, dementia presented to the ER for 24-48 hours of bilateral leg>arm weakness, without associated vision changes, dysarthria, dysphagia. He also denies associated sensation of lightheadedness, and did not recently passed out. Denies chest pain, shortness of breath, nausea. In the ER patient was noted to be bradycardic in the 30s, did have pacer pads placed but not initiated, was also given magnesium and calcium gluconate. Heart rate improved to the 50s by the time of my evaluation. Chest x-ray did not show any evidence of acute chest disease. Lab work notable for a hemoglobin of 12.8 (actually significantly higher than previous readings), K4.3, creatinine 12.19 (wide baseline on dialysis), calcium 7.7 with an iCal of 0.92, troponin 128.1, TSH normal. On review of MAR, patient has a prior history of being on metoprolol, however do not see any recent fills for this medication. He is on amiodarone 200 mg daily, and carvedilol 25 mg twice daily. Allergies Allergy/AdvReac Type Severity Reaction Status Date / Time lisinopril AdvReac Mild COUGH Verified 08/29/22 17:36 Home Medications Medication Instructions Recorded Confirmed Type nebulizer accessories #1 ea 10/30/19 08/29/22 Rx tiotropium 2.5 mcg-olodaterol 2.5 2 puff inhalation QAM #4 grams 02/18/21 08/29/22 Rx mcg/actuation mist for inhalation (Stiolto Respimat) calcitriol 0.5 mcg capsule 1 mcg PO QAM 06/30/21 08/29/22 History polyethylene glycol 3350 17 17 g PO BID 06/30/21 08/29/22 History gram/dose oral powder (Miralax) gabapentin 100 mg capsule 100 mg PO Q2D #0 caps 07/15/21 08/29/22 Rx docusate sodium 100 mg capsule 400 mg PO BID 07/31/21 08/29/22 History (Colace) cinacalcet 30 mg tablet (Sensipar) 30 mg PO DAILY 03/27/22 08/29/22 History diphenhydramine HCl 50 mg capsule 50 mg PO HS 03/27/22 08/29/22 History ferric citrate 210 mg iron tablet 420 mg PO TIDM 03/27/22 08/29/22 History (Auryxia) guaifenesin 1,200 mg tablet, 1,200 mg PO BID 03/27/22 08/29/22 History extended release 12 hr (Mucinex) acetaminophen 650 mg 1,300 mg PO Q12H 08/29/22 08/29/22 History tablet,extended release albuterol sulfate 90 mcg/actuation 2 inh inhalation Q6H PRN shortness 08/29/22 08/29/22 History aerosol inhaler (ProAir HFA) of breath or wheezing amiodarone 200 mg tablet 200 mg PO DAILY 08/29/22 08/29/22 History carvedilol 25 mg tablet 25 mg PO BID 08/29/22 08/29/22 History epinephrine 0.3 mg/0.3 mL 0.3 mg IM Q4H PRN as directed 08/29/22 08/29/22 History injection, auto-injector (EpiPen) ipratropium 0.5 mg-albuterol 3 mg 3 ml inhalation QAM 08/29/22 08/29/22 History (2.5 mg base)/3 mL nebulization soln Past Med/Surg History Medical History (Updated 08/29/22 @ 19:43 by Estefania Yap DO) Alzheimer disease Anemia Benign neoplasm of skin of nose removed once Benign prostate hyperplasia CCPD (continuous cycling peritoneal dialysis) status port in place left abdomen--dialysis daily at home; second port that has been placed for dialysis. Chronic kidney disease, stage 5 End stage-currently on transplant list for the [place]. Chronic obstructive pulmonary disease inhaler/nebulizer daily Diverticulosis Gout hx Hemorrhoids "not currently flared" History of marijuana use daily Hx of atrial flutter 06/2021, hospitalized w/pneumonia for almost 3 weeks; dx atrial flutter- currently amiodarone; f/u dr. ad[place], [place] Hypercalcemia Hypertension Intracranial hemorrhage 2012 Low back pain On home oxygen therapy 2L N/C at hs Polycystic kidney disease, adult type (09/03/12) Secondary hyperparathyroidism of renal origin Tremor of both hands Vitamin D deficiency Surgical History History of cerebral aneurysm repair 2012 [facility] [place]--clips/coils in place History of colonoscopy History of tooth extraction all teeth Family History Other No family history of adverse response to anesthesia Denies family history of Myocardial infarction Social History Smoking Status: Never smoker Second Hand Exposure: No; Hx Alcohol Use: No Hx Substance Use: No Preferred Language: Thai Communication Ability: Effective Paper Baler Required: No Beliefs That Will Affect Care: None marital status: Single Current Living Situation: Family Current Living Situation Comment: Patient lives with granddaughter, Leti, and granddaughter spouse and kids How many Children do You have: 1 Other Information That Helps Us Care for You: No Feels Safe at Home: Yes Safety Concerns: Feels Safe At This Time Assistive Devices: Denture - Upper, Denture - Lower and Glasses Review of Systems Review of Systems: All systems reviewed & are unremarkable except as noted in Subjective Physical Exam Constitutional: WD/WN, vitals as above Respiratory: normal respiratory effort, lungs clear to auscultation Cardiovascular: RRR, no murmur, no edema (Bradycardia) Gastrointestinal (Abdomen): normal bowel sounds, soft, nontender, no hepatosplenomegaly Skin: no rashes, warm and dry Neurologic: 5 out of 5 strength bilateral upper extremities, 5 out of 5 strength bilateral lower extremities when lying flat, But reports some weakness with standing up Psychiatric: A+Ox3, euthymic affect Results & Data Results & Data ([facility]) Vital Signs (Past 12 Hours) Vital Signs Temp Pulse Pulse Resp BP BP Pulse Ox 08/29/22 14:53 43 L 16 95 08/29/22 14:23 42 L 16 131/63 95 08/29/22 14:57 35 L 08/29/22 14:26 36.6 C 49 L 18 116/55 L 97 O2 Del Method 08/29/22 14:53 08/29/22 14:23 08/29/22 14:57 08/29/22 14:26 Room Air PG Care Time/CCT Total # of Minutes Spent Total Time Spent with Patient: Total time spent is greater than 50% in coordination of care (as documented) at patient's floor/unit and/or counseling patient: Coding Level of Care Code 82648 INT INP/OBS CARE 3/75MIN Diagnoses Bradycardia R00.1 End-stage renal disease on peritoneal dialysis N18.6; Z99.2 COPD (chronic obstructive pulmonary disease) J44.9 COPD type: unspecified COPD PAF (paroxysmal atrial fibrillation) I48.0 Intracranial hemorrhage I62.9 HTN (hypertension) I10 Hypertension type: unspecified Alzheimer disease G30.9; F02.80 Secondary hyperparathyroidism (of renal origin) N25.81 (3) COPD (chronic obstructive pulmonary disease) COPD type: unspecified COPD Qualified Code(s): J44.9 - Chronic obstructive pulmonary disease, unspecified (6) HTN (hypertension) Hypertension type: unspecified Qualified Code(s): I10 - Essential (primary) hypertension
[2022-08-29] MEDS ORDERED: ALBUTEROL HFA 8 GM INHALER INH PRN (19:09)
[2022-08-29] MEDS ORDERED: ACETAMINOPHEN 325 MG TAB PO PRN (19:09)
--- NOTE | 2022-08-29 19:29 | CT Scan Report ---
CT head/brain wo con CLINICAL HISTORY: upper/lower extremity weakness hx ICH Technique: Contiguous axial CT images of the head were acquired from the base of the skull to the neena yesenia without intravenous contrast administration. Images were viewed in brain, subdural and [facility]. Automated dose lowering techniques and/or adjustment according to patient size were utilized for this exam. Comparison: Comparison is made to CT head 06/30/2021 Findings: Areas of decreased attenuation are present in the periventricular and subcortical white matter bilate rally consistent with small vessel ischemic disease. Generalized cerebral atrophy with commensurate e nlargement of the ventricles, sulci, and cisterns is also present. There is no acute intracranial hem orrhage or evidence of acute territorial infarction. No shift of the midline structures, mass effect, or extra-axial abnormalities are shown. Atherosclerotic calcifications are present in the intracran ial segments of the internal carotid arteries. Postresection changes are seen in the left frontotempo ral region. Focal encephalomalacia is also noted in the left frontal lobe, unchanged. Imaged portions of the paranasal sinuses and mastoid air cells are clear. The orbits appear normal. There are no acute fractures of the calvaria or scalp swelling. Impression: No acute intracranial hemorrhage, no evidence of acute territorial infarction or other acute intracra nial disease process. ACT 112: Negative or not required by law. Electronically signed by: Arthur Taylor M.D. 08/29/2022 7:27 PM
--- NOTE | 2022-08-29 20:13 | Nephrology Consultation ---
Date of Consultation August 29, 2022 Assessment & Plan (1) End-stage renal disease on peritoneal dialysis: NCCPD. Rx 5 exchanges with 80 minute dwell. 2.5.%/1.5% split bath. EDW 74 kg. Treatment will be held overnight. Document I/O's and repeat metabolic profile tomorrow AM. Renal diet. Clearance has been acceptable. Electrolytes controlled. Volume status euvolemic. BP slightly elevated at the time of my assessment. Hypotension noted with bradycardia earlier this evening. Carvedilol held. (2) Bradycardia: Cardiology consultation pending. Carvedilol held. (3) Secondary hyperparathyroidism (of renal origin): Continue calcitriol and Sensipar per home Rx. PTH >1100. Low phosphorus diet. may use Phoslo instead of Auryxia while admitted. (4) Anemia: Chronic, stable. Recent screening colonoscopy reviewed. Maintained on Auryxia at home - not formulary at [facility]. History of Present Illness Reason for Consultation: ESRD on PD Requesting Physician: Estefania Guajardo DO Attending Physician: Estefania Guajardo DO History of Present Illness Mr. 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 He is maintained on PD through [facility] under the care of Dr. Romo. Sisi performs CCPD x 7 nights per week. PD Rx is 5 cycles with 3000 ml fill and dwell time of 0 minutes. His EDW is 74 kg. For the past couple weeks, he has been using 1 bag of 2.5% dextrose and 2 bags of 1.5%. Typical nightly UF ~1.5 L. Sisi reports that his weight has been stable but BP low the past couple of days. He denies any bloody, cloudy, or fibrinous effluent. He denies any abdominal pain or discomfort. PD catheter exit site has been clean. Hemoglobin stable at 11.4 earlier this month. Complications of CKD include hyperphosphatemia and sPTH. PTH >1000. Sisi started dialysis in December 2017 following catheter placement by Dr. Yeboah. He is active on the transplant list at [facility] but was inactivated due to issues during follow up. Sisi is actively working on relisting through [facility] and recently completed a cardiac catheterization at the end of July as part of his transplant evaluation. Colonoscopy also recently updated. Medical history also notable for h/o intracranial hemorrhage due to brain aneurysm, hypertension, gout, BPH, atrial fibrillation, and COPD. He presented to the hospital with weakness in his arms and legs. Symptoms started yesterday. Some heaviness predominately in the right arm reported. Throughout the day today, weakness in his legs progressively increased. Sisi presented to the hospital for additional evaluation. Telemetry demonstrating sinus bradycardia. Carvedilol held. Sisi has been admitted for observation. Serum electrolytes normal. Volume status is acceptable. He feels slightly dehydrated. Appetite is good. He denies GI complaints. We discussed dialysis this evening and opted to hold treatment tonight. He was appreciative of this. SNF rehab was recommended on admission in 2021 but there was no facility willing to assume care of peritoneal dialysis and Sisi was discharged home with home health PT. He feels that he has been doing well at home and only started to develop concerns related to weakness in his legs within the past couple of days. I discussed the plan of care with Dr. guajardo this evening. Allergies Allergy/AdvReac Type Severity Reaction Status Date / Time lisinopril AdvReac Mild COUGH Verified 08/29/22 17:36 Home Medications Medication Instructions Recorded Confirmed Type nebulizer accessories #1 ea 10/30/19 08/29/22 Rx tiotropium 2.5 mcg-olodaterol 2.5 2 puff inhalation QAM #4 grams 02/18/21 08/29/22 Rx mcg/actuation mist for inhalation (Stiolto Respimat) calcitriol 0.5 mcg capsule 1 mcg PO QAM 06/30/21 08/29/22 History polyethylene glycol 3350 17 17 g PO BID 06/30/21 08/29/22 History gram/dose oral powder (Miralax) gabapentin 100 mg capsule 100 mg PO Q2D #0 caps 07/15/21 08/29/22 Rx docusate sodium 100 mg capsule 400 mg PO BID 07/31/21 08/29/22 History (Colace) cinacalcet 30 mg tablet (Sensipar) 30 mg PO DAILY 03/27/22 08/29/22 History diphenhydramine HCl 50 mg capsule 50 mg PO HS 03/27/22 08/29/22 History ferric citrate 210 mg iron tablet 420 mg PO TIDM 03/27/22 08/29/22 History (Auryxia) guaifenesin 1,200 mg tablet, 1,200 mg PO BID 03/27/22 08/29/22 History extended release 12 hr (Mucinex) acetaminophen 650 mg 1,300 mg PO Q12H 08/29/22 08/29/22 History tablet,extended release albuterol sulfate 90 mcg/actuation 2 inh inhalation Q6H PRN shortness 08/29/22 08/29/22 History aerosol inhaler (ProAir HFA) of breath or wheezing amiodarone 200 mg tablet 200 mg PO DAILY 08/29/22 08/29/22 History carvedilol 25 mg tablet 25 mg PO BID 08/29/22 08/29/22 History epinephrine 0.3 mg/0.3 mL 0.3 mg IM Q4H PRN as directed 08/29/22 08/29/22 History injection, auto-injector (EpiPen) ipratropium 0.5 mg-albuterol 3 mg 3 ml inhalation QAM 08/29/22 08/29/22 History (2.5 mg base)/3 mL nebulization soln Patient History Medical History (Updated 08/29/22 @ 20:25 by Pankaj Cordon DO) Alzheimer disease Anemia Benign neoplasm of skin of nose removed once Benign prostate hyperplasia CCPD (continuous cycling peritoneal dialysis) status port in place left abdomen--dialysis daily at home; second port that has been placed for dialysis. Chronic obstructive pulmonary disease inhaler/nebulizer daily Diverticulosis Gout hx Hemorrhoids "not currently flared" History of marijuana use daily Hx of atrial flutter 06/2021, hospitalized w/pneumonia for almost 3 weeks; dx atrial flutter- currently amiodarone; f/u dr. adkins, [place] Hypercalcemia Hypertension Intracranial hemorrhage 2012 Low back pain On home oxygen therapy 2L N/C at hs Polycystic kidney disease, adult type (09/03/12) Secondary hyperparathyroidism of renal origin Tremor of both hands Vitamin D deficiency Surgical History History of cerebral aneurysm repair 2012 [facility] [place]--clips/coils in place History of colonoscopy History of tooth extraction all teeth Family History Other No family history of adverse response to anesthesia Denies family history of Myocardial infarction Social History Smoking Status: Never smoker Second Hand Exposure: No; Hx Alcohol Use: No Hx Substance Use: No Preferred Language: [place] Communication Ability: Effective Messenger Floorperson Required: No Beliefs That Will Affect Care: None marital status: Single Current Living Situation: Family Current Living Situation Comment: Patient lives with granddaughter, Leti, and granddaughter spouse and kids How many Children do You have: 1 Other Information That Helps Us Care for You: No Feels Safe at Home: Yes Safety Concerns: Feels Safe At This Time Assistive Devices: Denture - Upper, Denture - Lower and Glasses Review of Systems Review of Systems: All systems reviewed & are unremarkable except as noted in HPI & below Physical Exam Constitutional: well developed and + thin; no acute distress Eyes: + anicteric sclerae; no corneal abnormality ENMT: Mouth: no oral mucosal abnormality and oral mucous membranes not dry Neck: normal visual inspection and trachea midline Respiratory: normal respiratory effort Auscultation: lungs clear to auscultation bilaterally Cardiovascular: Rate/Rhythm: regular rate Heart Sounds: normal S1, normal S2 and + murmur Extremities: no edema Gastrointestinal (Abdomen): Inspection/Auscultation: + abdomen distended and normal bowel sounds Percussion/Palpation: abdomen soft; abdomen nontender PD catheter with clean dressing intact Musculoskeletal: Extremities: no cyanosis and no clubbing Skin: + turgor decreased; no jaundice Neurologic: Motor/Sensory: no tremor and no asterixis Psychiatric: Orientation: alert and oriented x 3 Results & Data ([facility]) Vital Signs (Past 12 Hours) Vital Signs Temp Pulse Pulse Resp BP BP Pulse Ox 08/29/22 18:29 51 L 16 156/96 H 96 08/29/22 14:53 43 L 16 95 08/29/22 14:23 42 L 16 131/63 95 08/29/22 14:57 35 L 08/29/22 14:26 36.6 C 49 L 18 116/55 L 97 O2 Del Method 08/29/22 18:29 Room Air 08/29/22 14:53 08/29/22 14:23 08/29/22 14:57 08/29/22 14:26 Room Air Laboratory Results Laboratory Results - last 24 hr 03/05/1308/29/22 08/29/22 14:44 14:44 14:44 WBC 6.90 RBC 4.37 L Hgb 12.8 L POC Hgb Hct 40.4 L POC Hct MCV 92.4 MCH 29.3 MCHC 31.7 L RDW Std Deviation 52.2 H RDW Coeff of Giovana 15.3 H Plt Count 298 MPV 11.1 Immature Gran % (Auto) 0.3 Neut % (Auto) 67.8 Lymph % (Auto) 12.2 Milam % (Auto) 11.4 Eos % (Auto) 7.0 Baso % (Auto) 1.3 Neut # (Auto) 4.68 Lymph # (Auto) 0.84 L Milam # (Auto) 0.79 H Eos # (Auto) 0.48 Baso # (Auto) 0.09 Immature Gran # (Auto) 0.02 POC Sodium Sodium 140 POC Potassium Potassium 4.3 POC Chloride Chloride 97 L Carbon Dioxide 27 POC Total CO2 Anion Gap 16 H POC Anion Gap POC BUN BUN 81 H Creatinine 12.19 H* POC Creatinine Est Cr Clr Drug Dosing 6.0 Est GFR ( Amer) 4.2 Est GFR (Non-Af Amer) 3.6 BUN/Creatinine Ratio 6.6 L Glucose 82 POC Glucose (other) Calcium 7.7 L POC Ioniz Calcium Sesar Phosphorus 7.3 H Magnesium 2.1 Total Bilirubin 0.4 AST 7 L ALT 9 Alkaline Phosphatase 83 Troponin I High Sens 128.1 H* Total Protein 6.3 Albumin 3.6 Globulin 2.7 Albumin/Globulin Ratio 1.3 TSH 3.003 SARS-CoV-2, RNA, NAAT 08/29/22 08/29/22 08/29/22 14:49 15:12 20:04 WBC RBC Hgb POC Hgb 14.3 Hct POC Hct 42 MCV MCH MCHC RDW Std Deviation RDW Coeff of Giovana Plt Count MPV Immature Gran % (Auto) Neut % (Auto) Lymph % (Auto) Milam % (Auto) Eos % (Auto) Baso % (Auto) Neut # (Auto) Lymph # (Auto) Milam # (Auto) Eos # (Auto) Baso # (Auto) Immature Gran # (Auto) POC Sodium 139 Sodium POC Potassium 4.3 Potassium POC Chloride 98 L Chloride Carbon Dioxide POC Total CO2 26 Anion Gap POC Anion Gap 20.0 POC BUN 70 H BUN Creatinine POC Creatinine 13.7 H* Est Cr Clr Drug Dosing Est GFR ( Amer) Est GFR (Non-Af Amer) BUN/Creatinine Ratio Glucose POC Glucose (other) 83 Calcium POC Ioniz Calcium Sesar 0.92 L Phosphorus Magnesium Total Bilirubin AST ALT Alkaline Phosphatase Troponin I High Sens Pending Total Protein Albumin Globulin Albumin/Globulin Ratio TSH SARS-CoV-2, RNA, NAAT NEGATIVE ECG Rate (beats per minute): 39 Additional Comments: Marked sinus bradycardia with 1st degree A-V block Non-specific intra- ventricular conduction block PG Care Time/CCT Total # of Minutes Spent Total Time Spent with Patient: Total time spent is greater than 50% in coordination of care (as documented) at patient's floor/unit and/or counseling patient: Coding Level of Care Code 01923 IN/OBS CONSULT LVL 4,60M Diagnoses End-stage renal disease on peritoneal dialysis N18.6; Z99.2 Bradycardia R00.1 Secondary hyperparathyroidism (of renal origin) N25.81 Anemia D64.9 Anemia type: unspecified type (4) Anemia Anemia type: unspecified type Qualified Code(s): D64.9 - Anemia, unspecified
[2022-08-29] MEDS: DOCUSATE SODIUM 100 MG CAP PO SCH (21:38)
[2022-08-29] MEDS: GABAPENTIN 100 MG CAP PO SCH (21:39)
[2022-08-29] MEDS: guaiFENesin 600 MG TABCR PO SCH (21:39)
[2022-08-29] MEDS: POLYETHYLENE (MIRALAX) 17 GM PACK PO SCH (21:41)
[2022-08-29 23:38] LABS: Appearance Urine Clear (Clear); Bacteria Urine Automated Negative (Negative); Bilirubin Urine Negative (Negative); Blood Urine Negative (Negative); Color Urine Yellow; Glucose Urine UA Negative (Negative); Ketones Urine Trace (Negative); Leukocyte Esterase Urine Trace (Negative); Nitrite Urine Negative (Negative); Protein Urine 2+ (Negative); RBC Urine Automated 0-4 /hpf (0-4); Specific Gravity Urine 1.019 (1.000-1.030); Urobilinogen Urine Negative (Negative)
[2022-08-30 05:01] LABS: Hematocrit (blood only) 35.5 % (42.0-52.0); Hemoglobin 11.5 g/dl (14.0-18.0); Mean Corpuscular Hemoglobin 29.2 pg (25.0-34.0); Mean Corpuscular Hgb Conc 32.4 g/dL (32.0-36.0); Mean Corpuscular Volume 90.1 fL (80.0-100.0); Mean Platelet Volume 10.4 fL (9.4-12.4); Platelet Count 256 K/uL (130-400); RDW Coefficient of Variation 15.1 % (11.5-14.5); RDW Standard Deviation 49.6 fL (36.4-46.3); Red Blood Count 3.94 M/uL (4.70-6.10); White Blood Count 7.63 K/ul (4.8-10.8)
[2022-08-30 05:21] LABS: BUN Creatinine Ratio 7.8 (10-20); Calcium 7.4 mg/dl (8.5-10.1); Creatinine Clr Calc Pharmacy 5.8 ml/min; Est GFR (African American) 4.2 ml/min; Est GFR (Non-African American) 3.6 ml/min; Magnesium 2.2 mg/dl (1.7-2.4); Phosphorus 8.2 mg/dl (2.5-4.9); Potassium 4.5 mmol/L (3.5-5.1)
--- NOTE | 2022-08-30 07:09 | Hospitalist Progress Note ---
Date of Service August 30, 2022 Assessment & Plan (1) Bradycardia: Plan: Noted on admission to have HR 30s, received calcium gluconate and magnesium sulfate IV in ER for electrolyte disturbance and patient's HR in 50s on my exam. Is on Coreg BID prior to admission, discontinue this. Suspect this may be contributory to patient's weakness. However, it is worth noting that patient was recommended for SNF rehab on admission in 2021, however could not find facility willing to assume care of peritoneal dialysis and was discharged home with home health PT. Telemetry for cardiac monitoring, pace if HR <30. Cardiology consult appreciated, continue monitoring IA interval and see if patient develops worsening heart block, otherwise hold Coreg. (2) End-stage renal disease on peritoneal dialysis: Plan: On nightly peritoneal dialysis, admission creatinine 12 with K of 4.3. Case personally discussed with Nephrology (Dr. Cordon) and appreciate recommendations: Dialysis nightly Renal dosing for all medications. Dialysis renal diet. Given calcium gluconate IV, and will start calcium acetate p.o. 3 times daily. (3) COPD (chronic obstructive pulmonary disease): Plan: History, not on supplemental oxygen at home, and not requiring oxygen on admission. CXR without acute process. Continue albuterol prn, formulary equivalent daily inhalers, and Mucinex. 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 On daily amiodarone therapy, will continue this. Telemetry as above. (5) Intracranial hemorrhage: Plan: History of, Hgb stable and in fact higher than it has been in recent checks. Continue PhosLo (calcium acetate). CT Head without evidence of acute process. (6) HTN (hypertension): Plan: BP 150s systolic on admission. Discontinue Coreg given bradycardia. Have started amlodipine 2.5 mg daily for hypertension. (7) Alzheimer disease: Plan: Performs most ADLs at home but is forgetful about certain things. Delirium precautions. (8) Secondary hyperparathyroidism (of renal origin): Plan: Continue Sensipar. (9) Leg weakness: Plan: New onset leg weakness without back pain, however with history of intermittent leg weakness in the past. Possible source of this is bradycardia, however will also check CT noncon of the L spine (MRI not possible at this time, history of metal/rust in his eyes, history of coils in brain and unknown if MRI safe). If increased concern requiring MRI patient would need orbit X-Rays and record of coils from [facility] [place]). PT and OT evaluations when able. Plan FULL CODE SCDs for DVT ppx, defer Lovenox given Hx ICH x2 Dialysis renal diet Telemetry status Admission and Anticipated Discharge Date Admission Date: August 29, 2022 Subjective No acute events overnight, patient does report that he continues to have bilateral lower extremity weakness compared to his baseline. No reports of back pain or leg pain. No reports of lightheadedness. Review of Systems Review of Systems: All systems reviewed & are unremarkable except as noted in Subjective Physical Exam Constitutional: WD/WN, vitals as above Respiratory: normal respiratory effort, lungs clear to auscultation Cardiovascular: RRR, no murmur, no edema (Bradycardia) Gastrointestinal (Abdomen): normal bowel sounds, soft, nontender, no hepatosplenomegaly Skin: no rashes, warm and dry Neurologic: 4 out of 5 strength bilateral upper extremities, 4 out of 5 strength bilateral lower extremities when lying flat Psychiatric: A+Ox3, euthymic affect Results & Data Results & Data ([facility]) Vital Signs (Past 12 Hours) Vital Signs Temp Pulse Pulse Pulse Resp BP BP 08/30/22 06:17 36.6 C 61 17 132/74 08/30/22 03:55 36.7 C 66 18 119/69 08/30/22 01:50 57 L 08/29/22 23:32 36.5 C 57 L 12 144/80 H 08/29/22 19:09 36.7 C 51 L 12 163/83 H 08/29/22 19:09 08/29/22 21:20 60 12 137/74 08/29/22 18:29 51 L 16 156/96 H Pulse Ox Pulse Ox O2 Del Method O2 Del Method 08/30/22 06:17 94 Room Air 08/30/22 03:55 92 Room Air 08/30/22 01:50 08/29/22 23:32 95 Room Air 08/29/22 19:09 98 Room Air 08/29/22 19:09 98 Room Air 08/29/22 21:20 98 Room Air 08/29/22 18:29 96 Room Air PG Care Time/CCT Total # of Minutes Spent Total Time Spent with Patient: Total time spent is greater than 50% in coordination of care (as documented) at patient's floor/unit and/or counseling patient: Coding Level of Care Code 52157 SUB INP/OBS CARE 3/50MIN Diagnoses Bradycardia R00.1 End-stage renal disease on peritoneal dialysis N18.6; Z99.2 COPD (chronic obstructive pulmonary disease) J44.9 COPD type: unspecified COPD PAF (paroxysmal atrial fibrillation) I48.0 Intracranial hemorrhage I62.9 HTN (hypertension) I10 Hypertension type: unspecified Alzheimer disease G30.9; F02.80 Secondary hyperparathyroidism (of renal origin) N25.81 Leg weakness R29.898 (3) COPD (chronic obstructive pulmonary disease) COPD type: unspecified COPD Qualified Code(s): J44.9 - Chronic obstructive pulmonary disease, unspecified (6) HTN (hypertension) Hypertension type: unspecified Qualified Code(s): I10 - Essential (primary) hypertension
[2022-08-30] MEDS: CALCITRIOL 0.25 MCG CAPSULE PO SCH (08:10)
[2022-08-30] MEDS: guaiFENesin 600 MG TABCR PO SCH ×2 (08:11→20:22)
[2022-08-30] MEDS: POLYETHYLENE (MIRALAX) 17 GM PACK PO SCH ×2 (08:13→20:21)
[2022-08-30] MEDS: AMIODARONE 200 MG TAB PO SCH (08:13)
[2022-08-30] MEDS: DOCUSATE SODIUM 100 MG CAP PO SCH ×2 (08:13→20:21)
[2022-08-30] MEDS: UMECLIDINIUM/VILANTEROL 62.5/25MCG 7 PUFFS/INHALER INH SCH (08:13)
--- NOTE | 2022-08-30 10:29 | Electrocardiogram Report ---
Test Reason : Blood Pressure : / mmHG Vent. Rate : 031 BPM Atrial Rate : 031 BPM P-R Int : 258 ms QRS Dur : 136 ms QT Int : 612 ms P-R-T Axes : 000 071 081 degrees QTc Int : 439 ms Poor data quality, interpretation may be adversely affected Marked sinus bradycardia with 1st degree A-V block Non-specific intra-ventricular conduction block Abnormal ECG When compared with ECG of 03-JUL-2021 12:16, Sinus rhythm has replaced Atrial flutter Vent. rate has decreased BY 116 BPM QRS duration has increased T wave inversion no longer evident in Inferior leads T wave inversion no longer evident in Lateral leads Confirmed by Rene Ramirez ([id number]) on 08/30/2022 10:29:40 AM Referred By: REFERRED SELF Confirmed By:Rene Ramirez
--- NOTE | 2022-08-30 10:31 | Electrocardiogram Report ---
Test Reason : Blood Pressure : / mmHG Vent. Rate : 039 BPM Atrial Rate : 039 BPM P-R Int : 328 ms QRS Dur : 144 ms QT Int : 590 ms P-R-T Axes : 096 061 074 degrees QTc Int : 474 ms Marked sinus bradycardia with 1st degree A-V block Non-specific intra-ventricular conduction block Abnormal ECG When compared with ECG of 03-JUL-2021 12:16, No significant change was found Confirmed by Rene Ramirez ([id number]) on 08/30/2022 10:31:23 AM Referred By: REFERRED SELF Confirmed By:Rene Ramirez
--- NOTE | 2022-08-30 10:34 | Electrocardiogram Report ---
Test Reason : Blood Pressure : / mmHG Vent. Rate : 046 BPM Atrial Rate : 046 BPM P-R Int : 360 ms QRS Dur : 146 ms QT Int : 568 ms P-R-T Axes : 034 046 073 degrees QTc Int : 497 ms Sinus bradycardia with 1st degree A-V block Non-specific intra-ventricular conduction block Abnormal ECG When compared with ECG of 29-AUG-2022 15:13, (unconfirmed) No significant change was found Confirmed by Rene Ramirez ([id number]) on 08/30/2022 10:33:59 AM Referred By: REFERRED SELF Confirmed By:Rene Ramirez
--- NOTE | 2022-08-30 11:53 | Cardiology Consultation ---
Date of Consultation August 30, 2022 History of Present Illness Reason for Consultation: Marked sinus bradycardia with a first-degree AV block with associated weakness Attending Physician: Estefania Yap, DO History of Present Illness The story is obtained both from the patient and his granddaughter who is with him she notes that he has had progressive weakness in his legs over the last 24 to 48 hours. He does not really do much other than walk 20 [address] to their garage. He lives on 1 floor and does not really leave the house otherwise. She notes when he went to get up from bed yesterday his legs were incredibly weak and did not support him. This is happened once before when he had pneumonia but he has had no fevers or chills or cough or any other symptoms to suggest he is having a pneumonia. He was found to be excessively bradycardic in the ER. He denies any chest pain or chest pressure. He has mild chronic dyspnea which is unchanged he does at times. Short of breath talking in sentences which is not unusual for him according to his granddaughter. He is unaware of any palpitations or fluttering when he had atrial flutter earlier in June he had no palpitations that he can remember. He has no lower extremity edema. He denies any abdominal pain on peritoneal dialysis and denies any fevers or chills or redness around his PD catheter sites. Rest of a complete review of systems is negative Allergies Allergy/AdvReac Type Severity Reaction Status Date / Time lisinopril AdvReac Mild COUGH Verified 08/29/22 17:36 Home Medications Medication Instructions Recorded Confirmed Type nebulizer accessories #1 ea 10/30/19 08/29/22 Rx tiotropium 2.5 mcg-olodaterol 2.5 2 puff inhalation QAM #4 grams 02/18/21 08/29/22 Rx mcg/actuation mist for inhalation (Stiolto Respimat) calcitriol 0.5 mcg capsule 1 mcg PO QAM 06/30/21 08/29/22 History polyethylene glycol 3350 17 17 g PO BID 06/30/21 08/29/22 History gram/dose oral powder (Miralax) gabapentin 100 mg capsule 100 mg PO Q2D #0 caps 07/15/21 08/29/22 Rx docusate sodium 100 mg capsule 400 mg PO BID 07/31/21 08/29/22 History (Colace) cinacalcet 30 mg tablet (Sensipar) 30 mg PO DAILY 03/27/22 08/29/22 History diphenhydramine HCl 50 mg capsule 50 mg PO HS 03/27/22 08/29/22 History guaifenesin 1,200 mg tablet, 1,200 mg PO BID 03/27/22 08/29/22 History extended release 12 hr (Mucinex) acetaminophen 650 mg 1,300 mg PO Q12H 08/29/22 08/29/22 History tablet,extended release albuterol sulfate 90 mcg/actuation 2 inh inhalation Q6H PRN shortness 08/29/22 08/29/22 History aerosol inhaler (ProAir HFA) of breath or wheezing amiodarone 200 mg tablet 200 mg PO DAILY 08/29/22 08/29/22 History carvedilol 25 mg tablet 25 mg PO BID 08/29/22 08/29/22 History epinephrine 0.3 mg/0.3 mL 0.3 mg IM Q4H PRN as directed 08/29/22 08/29/22 History injection, auto-injector (EpiPen) ipratropium 0.5 mg-albuterol 3 mg 3 ml inhalation QAM 08/29/22 08/29/22 History (2.5 mg base)/3 mL nebulization soln Patient History Medical History Alzheimer disease Anemia Benign neoplasm of skin of nose removed once Benign prostate hyperplasia CCPD (continuous cycling peritoneal dialysis) status port in place left abdomen--dialysis daily at home; second port that has been placed for dialysis. Chronic obstructive pulmonary disease inhaler/nebulizer daily Diverticulosis Gout hx Hemorrhoids "not currently flared" History of marijuana use daily Hx of atrial flutter 06/2021, hospitalized w/pneumonia for almost 3 weeks; dx atrial flutter- currently amiodarone; f/u dr. [place] Hypercalcemia Hypertension Intracranial hemorrhage 2012 Low back pain On home oxygen therapy 2L N/C at hs Polycystic kidney disease, adult type (09/03/12) Secondary hyperparathyroidism of renal origin Tremor of both hands Vitamin D deficiency Surgical History History of cerebral aneurysm repair 2012 [facility] [place]--clips/coils in place History of colonoscopy History of tooth extraction all teeth Family History Other No family history of adverse response to anesthesia Denies family history of Myocardial infarction Social History Smoking Status: Former smoker Second Hand Exposure: No; Do You Dip or Chew Tobacco: No; Tobacco Cessation Education Requested by Patient: No Hx Alcohol Use: No Hx Substance Use: No Preferred Language: Lao Communication Ability: Effective Collar Sewer Required: No Beliefs That Will Affect Care: None marital status: Single Current Living Situation: Spouse Current Living Situation Comment: Patient lives with granddaughter, Leti, and granddaughter spouse and kids How many Children do You have: 1 Other Information That Helps Us Care for You: No Feels Safe at Home: Yes Safety Concerns: Feels Safe At This Time Assistive Devices: None Results & Data ([facility]) Vital Signs (Past 12 Hours) Vital Signs Temp Pulse Pulse Pulse Resp BP Pulse Ox 08/30/22 07:35 61 08/30/22 06:17 36.6 C 61 17 132/74 94 08/30/22 03:55 36.7 C 66 18 119/69 92 08/30/22 01:50 57 L 08/29/22 23:32 36.5 C 57 L 12 144/80 H 95 O2 Del Method 08/30/22 07:35 08/30/22 06:17 Room Air 08/30/22 03:55 Room Air 08/30/22 01:50 08/29/22 23:32 Room Air he is awake alert and oriented x3 he looks older than his stated age HEENT: 2+ carotid upstrokes Lungs: Markedly decreased breath sounds with rhonchitic sounds bilaterally Heart: Regular rate and rhythm (bradycardic) with a soft 2 out of 6 holosystolic murmur at the apex Abdomen: Soft nontender nondistended positive bowel sounds Extremities: No clubbing cyanosis or edema Psychiatric: His affect appeared appropriate Skin: His skin turgor appeared decreased IMPRESSIONS: A. marked Sinus Bradycardia with a long first degree AVB b. Weakness in his legs c. HTN (1) Paroxysmal atrial flutter: maintaining NSR on Amio (2) History of cerebral aneurysm repair: Can not be on AC (3) End-stage renal disease on peritoneal dialysis: Hopefully his leg weakness is purely related to marked sinus bradycardia. He was on high-dose carvedilol to help with his blood pressure in combination with amiodarone to reduce his risk of 8 recurrent atrial flutter as he cannot be on anticoagulation. I would agree with stopping his beta-blockers completely. At this point his heart rate seems to be coming up and he has no lightheadedness or dizziness. He has not tried to walk though. If you look his baseline AR interval is about 250 ms when he left the hospital previously his first EKG here was about 250 ms now is approaching 350 ms. He is at increased risk of having high degree AV block given his prolonged AR interval. This will need to be watched during this hospitalization and hopefully with holding his beta-spencer as his AR interval will decline. For now I would leave him on amiodarone to reduce his risk of recurrent atrial flutter as he cannot be on anticoagulation and with his multiple risk factors the stroke risk would be high. His granddaughter was concerned that they were using Coreg to treat his blood pressure. I did start amlodipine 2-1/2 mg daily it does not appear that he was allergic to it in any way. He has no lower extremity edema either if he needs a dose tonight he can be started this evening otherwise I would start it tomorrow. His blood pressure today are well controlled. Not any cardiology will return tomorrow to continue with his care
--- NOTE | 2022-08-30 12:51 | Nephrology Progress Note ---
Date of Service August 30, 2022 Assessment & Plan (1) End-stage renal disease on peritoneal dialysis: Plan: NCCPD. Rx 5 exchanges with 80 minute dwell. 2.5.%/1.5% split bath. EDW 74 kg. Orders for this evening entered into the EHR and reviewed with the teacher of the deaf/hard of hearing. Document I/O's and repeat metabolic profile tomorrow AM. Renal diet. Clearance has been acceptable. Electrolytes controlled. Volume status remains euvolemic. (2) Bradycardia: Plan: Cardiology consultation appreciated. Improved heart rate noted. Carvedilol has been held. Remains on amiodarone. (3) Secondary hyperparathyroidism (of renal origin): Plan: Continue calcitriol per home Rx. No Sensipar while inpatient. IV calcium supplementation provided. Discussed the importance of management of hyperphosphatemia. Low phosphorus diet. Phoslo 2 tab QAC instead of Auryxia while inpatient. (4) Anemia: Plan: Chronic, stable. Recent screening colonoscopy reviewed. Maintained on Auryxia at home - not formulary at [facility]. PATRICK therapy not required. Admission and Anticipated Discharge Date Admission Date: August 29, 2022 Subjective No acute events overnight. Sisi was resting comfortably in bed this morning. He continues to endorse lower extremity weakness. No pain. No upper extremity symptoms this AM. Denies lightheadedness, dizziness, syncope, or presyncope. Review of Systems Review of Systems: All systems reviewed & are unremarkable except as noted in HPI & below Physical Exam Constitutional: well developed and + thin; no acute distress Eyes: + anicteric sclerae; no corneal abnormality ENMT: Mouth: no oral mucosal abnormality and oral mucous membranes not dry Neck: normal visual inspection and trachea midline Respiratory: normal respiratory effort Auscultation: lungs clear to auscultation bilaterally Cardiovascular: Rate/Rhythm: regular rate Heart Sounds: normal S1, normal S2 and + murmur Extremities: no edema Gastrointestinal (Abdomen): Inspection/Auscultation: + abdomen distended and normal bowel sounds Percussion/Palpation: abdomen soft; abdomen nontender Musculoskeletal: Extremities: no cyanosis and no clubbing Skin: + turgor decreased; no jaundice Neurologic: Motor/Sensory: no tremor and no asterixis Psychiatric: Orientation: alert and oriented x 3 Results & Data ([facility]) Vital Signs (Past 12 Hours) Vital Signs Temp Pulse Pulse Resp BP Pulse Ox O2 Del Method 03/12/23 12:16 36.5 C 71 19 128/65 93 Room Air 08/30/22 07:35 61 08/30/22 06:17 36.6 C 61 17 132/74 94 Room Air 08/30/22 03:55 36.7 C 66 18 119/69 92 Room Air 08/30/22 01:50 57 L Laboratory Results Laboratory Results - last 24 hr 08/29/22 08/29/22 08/29/22 14:44 14:44 14:44 WBC 6.90 RBC 4.37 L Hgb 12.8 L POC Hgb Hct 40.4 L POC Hct MCV 92.4 MCH 29.3 MCHC 31.7 L RDW Std Deviation 52.2 H RDW Coeff of Giovana 15.3 H Plt Count 298 MPV 11.1 Immature Gran % (Auto) 0.3 Neut % (Auto) 67.8 Lymph % (Auto) 12.2 Stephenson % (Auto) 11.4 Eos % (Auto) 7.0 Baso % (Auto) 1.3 Neut # (Auto) 4.68 Lymph # (Auto) 0.84 L Stephenson # (Auto) 0.79 H Eos # (Auto) 0.48 Baso # (Auto) 0.09 Immature Gran # (Auto) 0.02 POC Sodium Sodium 140 POC Potassium Potassium 4.3 POC Chloride Chloride 97 L Carbon Dioxide 27 POC Total CO2 Anion Gap 16 H POC Anion Gap POC BUN BUN 81 H Creatinine 12.19 H* POC Creatinine Est Cr Clr Drug Dosing 6.0 Est GFR ( Amer) 4.2 Est GFR (Non-Af Amer) 3.6 BUN/Creatinine Ratio 6.6 L Glucose 82 POC Glucose (other) Calcium 7.7 L POC Ioniz Calcium Sesar Ionized Calcium Phosphorus 7.3 H Magnesium 2.1 Total Bilirubin 0.4 AST 7 L ALT 9 Alkaline Phosphatase 83 Troponin I High Sens 128.1 H* Total Protein 6.3 Albumin 3.6 Globulin 2.7 Albumin/Globulin Ratio 1.3 TSH 3.003 Urine Color Urine Appearance Urine pH Ur Specific [place] Urine Protein Urine Glucose (UA) Urine Ketones Urine Blood Urine Nitrite Urine Bilirubin Urine Urobilinogen Ur Leukocyte Esterase Urine WBC (Auto) Urine RBC (Auto) U Hyaline Cast (Auto) U Epithel Cells (Auto) Urine Bacteria (Auto) Urine Yeast SARS-CoV-2, RNA, NAAT 08/29/22 08/29/22 08/29/22 14:49 15:12 20:04 WBC RBC Hgb POC Hgb 14.3 Hct POC Hct 42 MCV MCH MCHC RDW Std Deviation RDW Coeff of Giovana Plt Count MPV Immature Gran % (Auto) Neut % (Auto) Lymph % (Auto) Stephenson % (Auto) Eos % (Auto) Baso % (Auto) Neut # (Auto) Lymph # (Auto) Stephenson # (Auto) Eos # (Auto) Baso # (Auto) Immature Gran # (Auto) POC Sodium 139 Sodium POC Potassium 4.3 Potassium POC Chloride 98 L Chloride Carbon Dioxide POC Total CO2 26 Anion Gap POC Anion Gap 20.0 POC BUN 70 H BUN Creatinine POC Creatinine 13.7 H* Est Cr Clr Drug Dosing Est GFR ( Amer) Est GFR (Non-Af Amer) BUN/Creatinine Ratio Glucose POC Glucose (other) 83 Calcium POC Ioniz Calcium Sesar 0.92 L Ionized Calcium Phosphorus Magnesium Total Bilirubin AST ALT Alkaline Phosphatase Troponin I High Sens 120.8 H* Total Protein Albumin Globulin Albumin/Globulin Ratio TSH Urine Color Urine Appearance Urine pH Ur Specific [place] Urine Protein Urine Glucose (UA) Urine Ketones Urine Blood Urine Nitrite Urine Bilirubin Urine Urobilinogen Ur Leukocyte Esterase Urine WBC (Auto) Urine RBC (Auto) U Hyaline Cast (Auto) U Epithel Cells (Auto) Urine Bacteria (Auto) Urine Yeast SARS-CoV-2, RNA, NAAT NEGATIVE 08/29/22 08/30/22 08/30/22 23:25 04:25 04:25 WBC 7.63 RBC 3.94 L Hgb 11.5 L POC Hgb Hct 35.5 L POC Hct MCV 90.1 MCH 29.2 MCHC 32.4 RDW Std Deviation 49.6 H RDW Coeff of Giovana 15.1 H Plt Count 256 MPV 10.4 Immature Gran % (Auto) Neut % (Auto) Lymph % (Auto) Stephenson % (Auto) Eos % (Auto) Baso % (Auto) Neut # (Auto) Lymph # (Auto) Stephenson # (Auto) Eos # (Auto) Baso # (Auto) Immature Gran # (Auto) POC Sodium Sodium 137 POC Potassium Potassium 4.5 POC Chloride Chloride 99 Carbon Dioxide 21 POC Total CO2 Anion Gap 17 H POC Anion Gap POC BUN BUN 96 H Creatinine 12.27 H* POC Creatinine Est Cr Clr Drug Dosing 5.8 Est GFR ( Amer) 4.2 Est GFR (Non-Af Amer) 3.6 BUN/Creatinine Ratio 7.8 L Glucose 96 POC Glucose (other) Calcium 7.4 L POC Ioniz Calcium Sesar Ionized Calcium Phosphorus 8.2 H Magnesium 2.2 Total Bilirubin AST ALT Alkaline Phosphatase Troponin I High Sens Total Protein Albumin Globulin Albumin/Globulin Ratio TSH Urine Color Yellow Urine Appearance Clear Urine pH 5.0 Ur Specific [place] 1.019 Urine Protein 2+ H Urine Glucose (UA) Negative Urine Ketones Trace H Urine Blood Negative Urine Nitrite Negative Urine Bilirubin Negative Urine Urobilinogen Negative Ur Leukocyte Esterase Trace H Urine WBC (Auto) 1-5 Urine RBC (Auto) 0-4 U Hyaline Cast (Auto) 1-5 U Epithel Cells (Auto) 10-20 H Urine Bacteria (Auto) Negative Urine Yeast Not Reportable SARS-CoV-2, RNA, NAAT 08/30/22 04:25 WBC RBC Hgb POC Hgb Hct POC Hct MCV MCH MCHC RDW Std Deviation RDW Coeff of Giovana Plt Count MPV Immature Gran % (Auto) Neut % (Auto) Lymph % (Auto) Stephen[place] % (Auto) Eos % (Auto) Baso % (Auto) Neut # (Auto) Lymph # (Auto) Stephenson # (Auto) Eos # (Auto) Baso # (Auto) Immature Gran # (Auto) POC Sodium Sodium POC Potassium Potassium POC Chloride Chloride Carbon Dioxide POC Total CO2 Anion Gap POC Anion Gap POC BUN BUN Creatinine POC Creatinine Est Cr Clr Drug Dosing Est GFR ( Amer) Est GFR (Non-Af Amer) BUN/Creatinine Ratio Glucose POC Glucose (other) Calcium POC Ioniz Calcium Sesar Ionized Calcium 0.91 L Phosphorus Magnesium Total Bilirubin AST ALT Alkaline Phosphatase Troponin I High Sens Total Protein Albumin Globulin Albumin/Globulin Ratio TSH Urine Color Urine Appearance Urine pH Ur Specific [place] Urine Protein Urine Glucose (UA) Urine Ketones Urine Blood Urine Nitrite Urine Bilirubin Urine Urobilinogen Ur Leukocyte Esterase Urine WBC (Auto) Urine RBC (Auto) U Hyaline Cast (Auto) U Epithel Cells (Auto) Urine Bacteria (Auto) Urine Yeast SARS-CoV-2, RNA, NAAT PG Care Time/CCT Total # of Minutes Spent Total Time Spent with Patient: Total time spent is greater than 50% in coordination of care (as documented) at patient's floor/unit and/or counseling patient: Coding Level of Care Code 29945 SUB INP/OBS CARE Diagnoses End-stage renal disease on peritoneal dialysis N18.6; Z99.2 Bradycardia R00.1 Secondary hyperparathyroidism (of renal origin) N25.81 Anemia D64.9 Anemia type: unspecified type (4) Anemia Anemia type: unspecified type Qualified Code(s): D64.9 - Anemia, unspecified
[2022-08-30] MEDS ORDERED: STAT IV STA (12:52)
[2022-08-30] MEDS ORDERED: CALCIUM GLUCONATE 10% 1,000 MG in DEXTROSE 5% 50 ML IV ONE (12:52)
--- NOTE | 2022-08-30 17:44 | CT Scan Report ---
CT SCAN OF THE LUMBAR SPINE WITHOUT IV CONTRAST CLINICAL HISTORY: Lower extremity weakness. COMPARISON STUDY: Abdominal CT dated 06/30/2021. TECHNIQUE: CT scan of the lumbar spine is performed from the lower thoracic spine to the sacrum. Imag es are reviewed in the axial, sagittal, and coronal planes. IV contrast was not administered for this examination. A dose lowering technique was utilized adhering to the principles of ALARA. CT DOSE: 714.32 mGy.cm FINDINGS: The skeletal structures are heterogeneously osteopenic. There is no evidence of acute fract ure or malalignment involving the lumbar spine. There is a minimal chronic superior endplate compress ion deformity of L2. Vertebral body height is otherwise maintained throughout the lumbar spine. Align ment is preserved. The transverse and spinous processes appear intact. There is no spondylolysis. No lytic or blastic lesion is seen. There is advanced degenerative disc space narrowing at L4-L5 with pa rtial bony fusion. Moderate to severe disc space narrowing is seen at L5-S1. Mild narrowing is seen a t the remaining lumbar levels. Posterior disc osteophyte complexes are seen at all lumbar levels. The re is a mild central canal stenosis at L4-L5. There is no CT evidence of high-grade central canal yolanda nosis. The visualized sacrum and bony pelvis appear intact. Partial bony fusion is noted in the right sacroiliac joint. The paraspinous soft tissues are normal as imaged. There is advanced atherosclerot ic calcification of the abdominal aorta which is normal in caliber. The kidneys are enlarged and atro phic, and infiltrated by numerous cysts. The appearance is typical for autosomal dominant polycystic kidney disease. Calcifications are noted in both kidneys. There is no retroperitoneal lymphadenopathy . A catheter is partially visualized in the pelvis. IMPRESSION: 1. No acute bony abnormality is seen involving the lumbar spine. 2. Osteopenia with chronic/spondylotic change as above. 3. Again seen is evidence of autosomal dominant polycystic kidney disease. 4. Additional findings as above. ACT 112: Negative or not required by law. Dictated: 08/30/2022 5:02 PM Transcribed: 08/30/2022 5:22 PM Dacia [id number] TO_Yoane Electronically signed by: Jeet Ramirez M.D. 08/30/2022 5:43 PM
[2022-08-30] MEDS: CALCIUM ACETATE 667 MG CAP/TAB PO SCH (18:17)
[2022-08-31 05:53] LABS: Hematocrit (blood only) 37.5 % (42.0-52.0); Hemoglobin 12.3 g/dl (14.0-18.0); Mean Corpuscular Hemoglobin 29.1 pg (25.0-34.0); Mean Corpuscular Hgb Conc 32.8 g/dL (32.0-36.0); Mean Corpuscular Volume 88.9 fL (80.0-100.0); Mean Platelet Volume 10.5 fL (9.4-12.4); Platelet Count 250 K/uL (130-400); RDW Coefficient of Variation 14.9 % (11.5-14.5); RDW Standard Deviation 48.5 fL (36.4-46.3); Red Blood Count 4.22 M/uL (4.70-6.10); White Blood Count 8.32 K/ul (4.8-10.8)
[2022-08-31 06:07] LABS: BUN Creatinine Ratio 7.3 (10-20); Calcium 8.1 mg/dl (8.5-10.1); Creatinine Clr Calc Pharmacy 6.2 ml/min; Est GFR (African American) 4.5 ml/min; Est GFR (Non-African American) 3.9 ml/min; Magnesium 2.1 mg/dl (1.7-2.4); Phosphorus 7.8 mg/dl (2.5-4.9); Potassium 4.1 mmol/L (3.5-5.1)
[2022-08-31] MEDS: guaiFENesin 600 MG TABCR PO SCH ×2 (09:00→20:02)
[2022-08-31] MEDS: POLYETHYLENE (MIRALAX) 17 GM PACK PO SCH ×2 (09:00→20:01)
[2022-08-31] MEDS: amLODIPine BESYLATE 5 MG TAB PO SCH (09:01)
[2022-08-31] MEDS: DOCUSATE SODIUM 100 MG CAP PO SCH ×2 (09:01→20:01)
[2022-08-31] MEDS: CALCITRIOL 0.25 MCG CAPSULE PO SCH (09:01)
[2022-08-31] MEDS: AMIODARONE 200 MG TAB PO SCH (09:01)
[2022-08-31] MEDS: CALCIUM ACETATE 667 MG CAP/TAB PO SCH ×3 (09:02→17:12)
[2022-08-31] MEDS: UMECLIDINIUM/VILANTEROL 62.5/25MCG 7 PUFFS/INHALER INH SCH (09:06)
--- NOTE | 2022-08-31 09:50 | Nephrology Progress Note ---
Date of Service August 31, 2022 Assessment & Plan (1) End-stage renal disease on peritoneal dialysis: Plan: NCCPD. Rx 5 exchanges with 80 minute dwell. 2.5.%/1.5% split bath per home Rx. EDW 74 kg. Orders for this evening entered into the EHR and reviewed with the teddy jones RN. Will resume split bath tonight. Positive fluid balance with 1.5% last evening. Document I/O's and repeat metabolic profile tomorrow AM. Renal diet. Electrolytes controlled. Volume status remains acceptable. (2) Bradycardia: Plan: Cardiology consultation appreciated. Improved heart rate noted. Carvedilol has been held. Remains on amiodarone. (3) Secondary hyperparathyroidism (of renal origin): Plan: Continue calcitriol per home Rx. No Sensipar while inpatient. IV calcium supplementation provided and serum calcium improved. Low phosphorus diet. Phoslo 2 tab QAC while inpatient; resume Auryxia at discharge. (4) Anemia: Plan: Chronic, stable. PATRICK not required. Admission and Anticipated Discharge Date Admission Date: August 29, 2022 Subjective No acute events overnight. Sisi was sleeping comfortably in bed this AM. He denies shortness of breath. No chest pain or palpitations. Out of bed to bathroom this morning and denies any lightheadedness, dizziness, syncope or presyncope. No GI issues. 2 bowel movements yesterday. No constipation reported. PD exchanges uncomplicated. Effluent clear. Positive fluid balance at end of treatment this AM. Review of Systems Review of Systems: All systems reviewed & are unremarkable except as noted in HPI & below Physical Exam Constitutional: well developed and + thin; no acute distress Eyes: + anicteric sclerae Neck: normal visual inspection and trachea midline Respiratory: normal respiratory effort Auscultation: lungs clear to auscultation bilaterally and + rales (few basilar) Cardiovascular: Rate/Rhythm: regular rate Heart Sounds: normal S1, normal S2 and + murmur Extremities: no edema Gastrointestinal (Abdomen): Percussion/Palpation: abdomen soft; abdomen nontender Musculoskeletal: Extremities: no cyanosis and no clubbing Skin: + turgor decreased; no jaundice Neurologic: Motor/Sensory: no tremor and no asterixis Psychiatric: Orientation: alert and cooperative Results & Data ([facility]) Vital Signs (Past 12 Hours) Vital Signs Temp Pulse Pulse Pulse Resp BP Pulse Ox 03/13/23 07:53 36.5 C 78 18 08/31/22 06:55 36.5 C 78 18 159/76 H 95 08/31/22 00:00 62 08/31/22 03:18 36.4 C L 75 18 149/85 H 94 08/30/22 23:25 36.5 C 64 18 160/85 H 94 O2 Del Method 08/31/22 07:53 08/31/22 06:55 Room Air 08/31/22 00:00 08/31/22 03:18 Room Air 08/30/22 23:25 Room Air Laboratory Results Laboratory Results - last 24 hr 08/31/22 08/31/22 05:28 05:28 WBC 8.32 RBC 4.22 L Hgb 12.3 L Hct 37.5 L MCV 88.9 MCH 29.1 MCHC 32.8 RDW Std Deviation 48.5 H RDW Coeff of Giovana 14.9 H Plt Count 250 MPV 10.5 Sodium 136 Potassium 4.1 Chloride 98 Carbon Dioxide 20 L Anion Gap 18 H BUN 84 H Creatinine 11.47 H* D Est Cr Clr Drug Dosing 6.2 Est GFR ( Amer) 4.5 Est GFR (Non-Af Amer) 3.9 BUN/Creatinine Ratio 7.3 L Glucose 137 H Calcium 8.1 L Phosphorus 7.8 H Magnesium 2.1 PG Care Time/CCT Total # of Minutes Spent Total Time Spent with Patient: Total time spent is greater than 50% in coordination of care (as documented) at patient's floor/unit and/or counseling patient: Coding Level of Care Code 73797 SUB INP/OBS CARE 3/50MIN Diagnoses End-stage renal disease on peritoneal dialysis N18.6; Z99.2 Bradycardia R00.1 Secondary hyperparathyroidism (of renal origin) N25.81 Anemia D64.9 Anemia type: unspecified type (4) Anemia Anemia type: unspecified type Qualified Code(s): D64.9 - Anemia, unspecified
--- NOTE | 2022-08-31 14:50 | Hospitalist Progress Note ---
Date of Service August 31, 2022 Assessment & Plan (1) Bradycardia: Plan: Noted on admission to have HR 30s, received calcium gluconate and magnesium sulfate IV in ER for electrolyte disturbance and patient's HR in 50s on my exam. Is on Coreg BID prior to admission, continue to hold this as patient's heart rate is improving with heart rate in the 70s over the last 24 hours. Telemetry for cardiac monitoring, pace if HR <30. Cardiology consult appreciated, continue monitoring ID interval and see if patient develops worsening heart block, continue holding Coreg, can also consider holding amiodarone if develops more significant bradycardia or more evidence of advanced heart block. Suspect bradycardia as primary cause of patient's weakness. However, it is worth noting that patient was recommended for SNF rehab on admission in 2021, however could not find facility willing to assume care of peritoneal dialysis and was discharged home with home health PT. (2) End-stage renal disease on peritoneal dialysis: Plan: On nightly peritoneal dialysis, admission creatinine 12 with K of 4.3. Case personally discussed with Nephrology (Dr. Cordon) and appreciate recommendations: Dialysis nightly Renal dosing for all medications. Dialysis renal diet. Given calcium gluconate IV, and will continue calcium acetate p.o. 3 times daily. (3) COPD (chronic obstructive pulmonary disease): Plan: History, not on supplemental oxygen at home, and not requiring oxygen on admission. CXR without acute process. Continue albuterol prn, formulary equivalent daily inhalers, and Mucinex. 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 On daily amiodarone therapy, will continue this for now and can discontinue if develops clinically significant bradycardia despite holding Coreg. Telemetry as above. (5) Intracranial hemorrhage: Plan: History of, Hgb stable at 12.3 and in fact higher than it has been in recent checks. Continue PhosLo (calcium acetate). CT Head without evidence of acute process. (6) HTN (hypertension): Plan: BP 150s systolic on admission. Discontinue Coreg given bradycardia. Have started amlodipine 2.5 mg daily for hypertension, and can titrate as necessary. (7) Alzheimer disease: Plan: Performs most ADLs at home but is forgetful about certain things. Delirium precautions. PT and OT evaluations prior to discharge. (8) Secondary hyperparathyroidism (of renal origin): Plan: Continue Sensipar. (9) Leg weakness: Plan: New onset leg weakness without back pain, however with history of intermittent leg weakness in the past. CT Noncon of the lumbar spine performed to further evaluate lower extremity weakness, unable to use IV contrast due to renal dysfunction, no acute process identified. PT and OT evaluations when able. Plan FULL CODE SCDs for DVT ppx, defer Lovenox given Hx ICH x2 Dialysis renal diet Telemetry status Admission and Anticipated Discharge Date Admission Date: August 29, 2022 Subjective Overnight without any acute events, patient reports that his leg weakness is somewhat better today than it was yesterday. No symptoms of lightheadedness today. On telemetry last night heart rate was in the 70s per personal review of telemetry Review of Systems Review of Systems: All systems reviewed & are unremarkable except as noted in Subjective Physical Exam Constitutional: WD/WN, vitals as above Respiratory: normal respiratory effort, lungs clear to auscultation Cardiovascular: RRR, no murmur, no edema Gastrointestinal (Abdomen): normal bowel sounds, soft, nontender, no hepatosplenomegaly Skin: no rashes, warm and dry Psychiatric: A+Ox3, euthymic affect Results & Data Results & Data ([facility]) Vital Signs (Past 12 Hours) Vital Signs Temp Pulse Pulse Pulse Resp BP Pulse Ox 08/31/22 12:46 36.4 C L 75 18 117/77 93 08/31/22 08:00 73 08/31/22 07:53 36.5 C 78 18 08/31/22 06:55 36.5 C 78 18 159/76 H 95 08/31/22 03:18 36.4 C L 75 18 149/85 H 94 O2 Del Method 08/31/22 12:46 Room Air 08/31/22 08:00 08/31/22 07:53 08/31/22 06:55 Room Air 08/31/22 03:18 Room Air Coding Level of Care Code 41876 SUB INP/OBS CARE 3/50MIN Diagnoses Bradycardia R00.1 End-stage renal disease on peritoneal dialysis N18.6; Z99.2 COPD (chronic obstructive pulmonary disease) J44.9 COPD type: unspecified COPD PAF (paroxysmal atrial fibrillation) I48.0 Intracranial hemorrhage I62.9 HTN (hypertension) I10 Hypertension type: unspecified Alzheimer disease G30.9; F02.80 Secondary hyperparathyroidism (of renal origin) N25.81 Leg weakness R29.898 (3) COPD (chronic obstructive pulmonary disease) COPD type: unspecified COPD Qualified Code(s): J44.9 - Chronic obstructive pulmonary disease, unspecified (6) HTN (hypertension) Hypertension type: unspecified Qualified Code(s): I10 - Essential (primary) hypertension
--- NOTE | 2022-08-31 16:48 | Cardiology Progress Note ---
Date of Service August 31, 2022 Assessment & Plan (1) Bradycardia: (2) HTN (hypertension): (3) Paroxysmal atrial flutter: (4) PAF (paroxysmal atrial fibrillation): Plan ASSESSMENT/PLAN: 1. Bradycardia: Sinus bradycardia with marked first-degree AV block. Heart rate has improved with discontinuation of beta-spencer. Can continue amiodarone however if has more significant bradycardia or evidence of more advanced heart block, would discontinue amiodarone. Believes that weakness has improved and therefore may have been related to bradycardia. Still has uncontrollable jerking movements of upper and lower extremities. Check Lyme antibodies. No obvious indication for pacemaker at this time but continue to monitor for high grade AV block or pauses. On discharge, would recommend 30-day event monitor and close follow-up with his primary picking supervisor, Dr. Overton. 2. Paroxysmal atrial flutter/fibrillation: Noted during previous hospitalization. This prompted amiodarone. Sinus rhythm currently. Monitor TSH and transaminase levels while on amiodarone. Not on anticoagulation therapy given history of cerebral aneurysm/hemorrhage. Long-term management as per Dr. Overton. 3. Hypertension: Blood pressure has been normotensive and mildly hypertensive. Most recent blood pressure readings today have been normotensive. No changes made at this time. 4. Uncontrollable movements: As per primary service. Lyme titers as above. 5. Disposition: Follow-up with Dr. Overton after discharge. Recommend outpatient event monitor as above. Please call with any other questions or concerns. Plan of care communicated with primary hospitalist, Dr. Yap. Admission and Anticipated Discharge Date Admission Date: August 29, 2022 Subjective Patient seen earlier today. He had no specific cardiology complaints. He denies chest pain, shortness of breath, syncope, near syncope, palpitations, edema, or bleeding. He states that he continues to have jerking/uncontrollable shaking movements and is unsteady on his feet. He believes that the weakness has improved however. He was alone in his hospital room. Physical Exam Physical Exam: Gen.: No acute distress. Alert. HEENT: Anicteric sclera. Neck: No JVD. Cardiac: No ventricular heave. Regular. Normal S1-S2. 1/6 early peaking systolic ejection murmur. No rubs or gallops. Pulmonary: Clear to auscultation bilaterally without wheezes, rales, or rhonchi. Abdomen: Soft, nontender, nondistended, with normoactive bowel sounds. No bruits noted. Extremities: 2+ radial pulses bilaterally. 1+ posterior tibialis pulses bilaterally. No edema or cyanosis. Results & Data ([facility]) Vital Signs (Past 12 Hours) Vital Signs Temp Pulse Pulse Pulse Resp BP Pulse Ox 08/31/22 16:08 36.4 C L 71 20 136/75 92 08/31/22 15:37 73 08/31/22 12:46 36.4 C L 75 18 117/77 93 08/31/22 08:00 73 08/31/22 07:53 36.5 C 78 18 08/31/22 06:55 36.5 C 78 18 159/76 H 95 O2 Del Method 08/31/22 16:08 Room Air 08/31/22 15:37 08/31/22 12:46 Room Air 08/31/22 08:00 08/31/22 07:53 08/31/22 06:55 Room Air Laboratory Results Laboratory Results - last 24 hr 08/31/22 08/31/22 05:28 05:28 WBC 8.32 RBC 4.22 L Hgb 12.3 L Hct 37.5 L MCV 88.9 MCH 29.1 MCHC 32.8 RDW Std Deviation 48.5 H RDW Coeff of Giovana 14.9 H Plt Count 250 MPV 10.5 Sodium 136 Potassium 4.1 Chloride 98 Carbon Dioxide 20 L Anion Gap 18 H BUN 84 H Creatinine 11.47 H* D Est Cr Clr Drug Dosing 6.2 Est GFR ( Amer) 4.5 Est GFR (Non-Af Amer) 3.9 BUN/Creatinine Ratio 7.3 L Glucose 137 H Calcium 8.1 L Phosphorus 7.8 H Magnesium 2.1 Diagnostic Findings Telemetry personally reviewed: No significant pauses. Sinus rhythm. Varying AL interval without obvious dropped beats. First-degree AV block. ECG personally reviewed 08/31/2022 at 8:19 AM: Probable sinus rhythm with first- degree AV block 73 bpm. IVCB. Nephrology and hospitalist progress notes reviewed. Initial cardiology consultation report reviewed. Cardiac cath report from 08/14/2022 reviewed: No significant CAD. Labs reviewed: Mild anemia. End-stage renal disease. Medications Administered Current Inpatient Medications Acetaminophen (Acetaminophen 325 Mg Tab) 650 mg PO Q4H PRN PRN Reason: Pain or Fever Stop: 09/28/22 19:08 Albuterol (Albuterol Hfa 8 Gm Inhaler) 2 puffs INH Q6H PRN PRN Reason: shortness of breath or wheezing Stop: 09/28/22 19:08 Amiodarone HCl (Amiodarone 200 Mg Tab) 200 mg PO DAILY NÉSTOR Stop: 09/29/22 08:59 Last Admin: 08/31/22 09:01 Dose: 200 mg Amlodipine Besylate (Amlodipine Besylate 5 Mg Tab) 2.5 mg PO QAM [facility] Stop: 09/30/22 08:59 Last Admin: 08/31/22 09:01 Dose: 2.5 mg Calcitriol (Calcitriol 0.25 Mcg Capsule) 1 mcg PO QAM [facility] Stop: 09/29/22 08:59 Last Admin: 08/31/22 09:01 Dose: 1 mcg Calcium Acetate (Calcium Acetate 667 Mg Cap/Tab) 1,334 mg PO TIDM [facility] Stop: 09/29/22 16:59 Last Admin: 08/31/22 12:23 Dose: 1,334 mg Docusate Sodium (Docusate Sodium 100 Mg Cap) 400 mg PO BID [facility] Stop: 09/28/22 20:59 Last Admin: 08/31/22 09:01 Dose: 400 mg Gabapentin (Gabapentin 100 Mg Cap) 100 mg PO Q2D [facility] Stop: 09/28/22 19:59 Last Admin: 08/29/22 21:39 Dose: 100 mg Guaifenesin (Guaifenesin 600 Mg Tabcr) 1,200 mg PO BID [facility] Stop: 09/28/22 20:59 Last Admin: 08/31/22 09:00 Dose: 1,200 mg Polyethylene Glycol (Polyethylene (Miralax) 17 Gm Pack) 17 gm PO BID [facility] Stop: 09/28/22 20:59 Last Admin: 08/31/22 09:00 Dose: 17 gm Umeclidinium/Vilanterol (Umeclidinium/Vilanterol 62.5/25mcg 7 Puffs/Inhaler) 1 puffs INH QAM [facility] Stop: 09/29/22 08:59 Last Admin: 08/31/22 09:06 Dose: 1 puffs PG Care Time/CCT Total # of Minutes Spent Total Time Spent with Patient: Total time spent is greater than 50% in coordination of care (as documented) at patient's floor/unit and/or counseling patient: Coding Level of Care Code 38674 SUB INP/OBS CARE 235MIN Diagnoses Bradycardia R00.1 HTN (hypertension) I10 Hypertension type: unspecified Paroxysmal atrial flutter I48.92 PAF (paroxysmal atrial fibrillation) I48.0 (2) HTN (hypertension) Hypertension type: unspecified Qualified Code(s): I10 - Essential (primary) hypertension
[2022-08-31] MEDS: GABAPENTIN 100 MG CAP PO SCH (20:02)
--- NOTE | 2022-09-01 06:04 | Electrocardiogram Report ---
Test Reason : Blood Pressure : / mmHG Vent. Rate : 073 BPM Atrial Rate : 312 BPM P-R Int : 000 ms QRS Dur : 144 ms QT Int : 462 ms P-R-T Axes : 000 078 079 degrees QTc Int : 508 ms Poor data quality, interpretation may be adversely affected Possible Sinus rhythm with 1st degree AV block Non-specific intra-ventricular conduction block Abnormal ECG When compared with ECG of 30-AUG-2022 07:29, No significant change Confirmed by Cruz Godfrey [id number]) on 09/01/2022 6:04:35 AM Referred By: REFERRED SELF Confirmed By:Cruz Godfrey
[2022-09-01 06:44] LABS: BUN Creatinine Ratio 7.1 (10-20); Calcium 8.3 mg/dl (8.5-10.1); Creatinine Clr Calc Pharmacy 6.8 ml/min; Est GFR (African American) 4.9 ml/min; Est GFR (Non-African American) 4.2 ml/min; Phosphorus 7.5 mg/dl (2.5-4.9)
[2022-09-01 07:47] LABS: Lyme Ab IgG w/WB Rflx Negative (Negative); Lyme Ab IgM w/WB Rflx Negative (Negative)
[2022-09-01] MEDS: CALCIUM ACETATE 667 MG CAP/TAB PO SCH ×3 (08:25→17:07)
[2022-09-01] MEDS: amLODIPine BESYLATE 5 MG TAB PO SCH (08:27)
[2022-09-01] MEDS: AMIODARONE 200 MG TAB PO SCH (08:27)
[2022-09-01] MEDS: CALCITRIOL 0.25 MCG CAPSULE PO SCH (08:29)
[2022-09-01] MEDS: guaiFENesin 600 MG TABCR PO SCH ×2 (08:29→19:16)
[2022-09-01] MEDS: DOCUSATE SODIUM 100 MG CAP PO SCH ×2 (08:30→19:17)
[2022-09-01] MEDS: UMECLIDINIUM/VILANTEROL 62.5/25MCG 7 PUFFS/INHALER INH SCH (08:32)
[2022-09-01] MEDS: POLYETHYLENE (MIRALAX) 17 GM PACK PO SCH ×2 (08:33→19:17)
--- NOTE | 2022-09-01 10:01 | Nephrology Progress Note ---
Date of Service September 01, 2022 Assessment & Plan (1) End-stage renal disease on peritoneal dialysis: Plan: NCCPD. Rx 5 exchanges with 80 minute dwell. 2.5.%/1.5% split bath per home Rx. EDW 74 kg. Orders for this evening entered into the EHR and reviewed with the teddy jones RN. Volume status appears reasonably controlled this AM. Document I/O's and daily renal profile while inpatient. Renal diet. Electrolytes controlled. Medications appropriately dosed for PD. (2) Bradycardia: Plan: Cardiology consultation appreciated. Improved heart rate noted. Carvedilol has been held. Remains on amiodarone. (3) Secondary hyperparathyroidism (of renal origin): Plan: Continue calcitriol per home Rx. No Sensipar while inpatient. IV calcium supplementation provided and serum calcium improved. Low phosphorus diet. Phoslo 2 tab QAC while inpatient; resume Auryxia at discharge. (4) Anemia: Plan: Chronic, stable. PATRICK not required. Admission and Anticipated Discharge Date Admission Date: August 29, 2022 Subjective No acute events overnight. PD exchanges completed without complications. Effluent clear. Tolerating dialysis well. Unfortunately, weakness in legs was improving yesterday but Sisi reports some noted unsteadiness this AM. He had difficulty walking to the bathroom. Denies pain. Some increased tremors in his hands also reported. Denies lightheadedness, dizziness, syncope, or presyncope. No chest pain or palpitations. Denies notable dyspnea. No abdominal pain or discomfort. Review of Systems Review of Systems: All systems reviewed & are unremarkable except as noted in HPI & below Physical Exam Constitutional: well developed and + thin; no acute distress Eyes: + anicteric sclerae; no corneal abnormality ENMT: Mouth: no oral mucosal abnormality and oral mucous membranes not dry Neck: normal visual inspection and trachea midline Respiratory: normal respiratory effort Auscultation: lungs clear to auscultation bilaterally and + rales (few basilar) Cardiovascular: Rate/Rhythm: regular rate Heart Sounds: normal S1, normal S2 and + murmur Extremities: no edema Gastrointestinal (Abdomen): Inspection/Auscultation: + abdomen distended and normal bowel sounds Percussion/Palpation: abdomen soft; abdomen nontender Musculoskeletal: Extremities: no cyanosis and no clubbing Skin: + turgor decreased; no jaundice Neurologic: Motor/Sensory: + tremor (subtle resting tremor in hands); no fasciculations and no asterixis Psychiatric: Orientation: alert, oriented x 3 and cooperative Results & Data ([facility]) Vital Signs (Past 12 Hours) Vital Signs Temp Pulse Pulse Pulse Resp BP Pulse Ox 09/01/22 08:07 36.5 C 72 17 09/01/22 08:07 36.5 C 72 17 141/75 H 93 09/01/22 07:25 79 09/01/22 02:46 36.3 C L 79 20 155/81 H 92 08/31/22 23:37 63 144/87 H 08/31/22 23:10 36.3 C L 72 20 184/89 H 93 O2 Del Method 09/01/22 08:07 09/01/22 08:07 Room Air 09/01/22 07:25 09/01/22 02:46 Room Air 08/31/22 23:37 08/31/22 23:10 Room Air Laboratory Results Laboratory Results - last 24 hr 09/01/22 09/01/22 05:55 05:55 Sodium 135 L Potassium 4.0 Chloride 98 Carbon Dioxide 20 L Anion Gap 17 H BUN 76 H Creatinine 10.74 H* D Est Cr Clr Drug Dosing 6.8 Est GFR ( Amer) 4.9 Est GFR (Non-Af Amer) 4.2 BUN/Creatinine Ratio 7.1 L Glucose 118 H Calcium 8.3 L Phosphorus 7.5 H Lyme Disease IgG Ab Negative Lyme Disease IgM Ab Negative PG Care Time/CCT Total # of Minutes Spent Total Time Spent with Patient: Total time spent is greater than 50% in coordination of care (as documented) at patient's floor/unit and/or counseling patient: Coding Level of Care Code 00310 SUB INP/OBS CARE 3/50MIN Diagnoses End-stage renal disease on peritoneal dialysis N18.6; Z99.2 Bradycardia R00.1 Secondary hyperparathyroidism (of renal origin) N25.81 Anemia D64.9 Anemia type: unspecified type (4) Anemia Anemia type: unspecified type Qualified Code(s): D64.9 - Anemia, unspecified
[2022-09-01 14:38] LABS: C Reactive Protein 3.42 mg/dl (0-0.5)
--- NOTE | 2022-09-01 15:14 | CT Scan Report ---
CT SCAN OF THE CERVICAL SPINE CLINICAL HISTORY: Bilateral lower extremity weakness. COMPARISON STUDY: CT of the cervical spine dated 06/30/2021. TECHNIQUE: CT scan of the cervical spine is performed from the skull base to the upper thoracic spine . Images are reviewed in the axial, sagittal, and coronal planes. IV contrast was not administered fo r this examination. A dose lowering technique was utilized adhering to the principles of ALARA. CT DOSE: 1301.63 mGy.cm FINDINGS: Skeletal structures: The skeletal structures are osteopenic. There is no evidence of fracture or subl uxation involving the cervical spine. Vertebral body height and alignment are maintained throughout t he cervical spine. There is a minimal chronic superior endplate compression deformity of T1. There is straightening of the cervical lordosis. Anterior osteophytes are seen throughout. The odontoid proce ss and lateral masses are intact. The atlantoaxial articulation is preserved noting productive degene rative change. The spinous processes appear intact. There is moderate multilevel cervical spondylosis . Uncovertebral and facet arthropathy contributes to neuroforaminal narrowing at several levels. This is moderate to severe bilaterally at C3-C4, on the left at C4-C5, bilaterally at C5-C6, and bilatera lly at C6-C7. Intervertebral discs: There is moderate disc space narrowing at C5-C6 and C6-C7. Mild narrowing is se en at the remaining cervical levels. Central canal: Grossly patent. Soft tissues: The prevertebral and paraspinous soft tissues are within normal limits. There is athero sclerotic calcification of the carotid bulbs. Calvarium: The visualized calvarium at the skull base appears intact. Brain parenchyma: Partially visualized brain parenchyma at the skull base is within normal limits. Sinuses and mastoids: The visualized paranasal sinuses are clear. There is trace right mastoid effusi on. The left mastoid air cells are well pneumatized. Lung apices: Emphysematous change and fibrosis is noted at both apices. IMPRESSION: 1. No acute bony abnormality is seen involving the cervical spine. 2. Osteopenia and spondylitic change as above. ACT 112: Negative or not required by law. Electronically signed by: Jeet Ramirez M.D. 09/01/2022 3:13 PM
--- NOTE | 2022-09-01 15:43 | CT Scan Report ---
CT SCAN OF THE THORACIC SPINE WITHOUT IV CONTRAST CLINICAL HISTORY: Bilateral lower extremity weakness. COMPARISON STUDY: Chest CT dated 06/30/2021. TECHNIQUE: CT scan of the thoracic spine is performed from the lower cervical spine to the upper lumb ar spine. Images are reviewed in the axial, sagittal, and coronal planes. IV contrast was not adminis tered for this examination. A dose lowering technique was utilized adhering to the principles of MUSA Gibbs. FINDINGS: The skeletal structures are osteopenic. There is no evidence of acute fracture or malalignm ent. There are minimal chronic superior endplate compression deformities of T1, T2, T3, T4, T5, and L 1. No retropulsed fragments are identified. Vertebral body height is otherwise maintained. Alignment is preserved. Anterior osteophytes are seen throughout. There is mild hyperkyphosis. The transverse a nd spinous processes appear intact. No lytic or blastic lesion is seen. There is mild multilevel dege nerative disc space narrowing. There is no CT evidence of large disc herniation or high-grade central canal stenosis. Calcification of the posterior aspect of the thecal sac is similar to previous. The paraspinous soft tissues are normal as visualized. The posterior ribs are intact as visualized. The h eart is enlarged and there is advanced atherosclerotic calcification of the visualized thoracic aorta . Advanced emphysematous change is seen throughout both lungs with apical fibrosis. There are adjacen t irregular right upper lobe pulmonary nodules on images #99 and #122. These measure 1.7 and 1.2 cm. There are 1.0 and 0.6 cm nodules in the left upper lobe seen on image #100. These have increased in s ize and confluence as compared to the 06/30/2021 examination. There are enlarged mediastinal nodes whi ch contain calcifications. These measure up to 1.7 cm in short axis. There are also calcification-con taining right hilar nodes. There is a tiny hiatal hernia. The visualized kidneys appear enlarged and are infiltrated by numerous cysts suggestive of autosomal dominant polycystic kidney disease. Nodular ity of the adrenal glands is unchanged. These meet CT criteria for fat-containing adenomas. IMPRESSION: 1. No acute bony abnormality is seen involving the thoracic spine. 2. Mild chronic compression deformities with degenerative change and hyperkyphosis as above. 3. Cardiomegaly and advanced emphysema. 4. Irregular bilateral upper lobe nodular opacities are detailed above. Although these could be on in flammatory basis, these have increased in size and confluence as compared to the 06/30/[address] a nd the appearance is more suspicious for multifocal neoplasm. Pulmonology follow-up is recommended. 5. Findings suggest autosomal dominant polycystic kidney disease. 6. Mildly enlarged mediastinal lymph nodes are pathologically indeterminate. 7. Additional findings as above. ACT 112: Negative or not required by law. Dictated: 09/01/2022 3:20 PM Transcribed: 09/01/2022 3:33 PM Berna [id number] TO_Gerry Electronically signed by: Jeet Ramirez M.D. 09/01/2022 3:41 PM
--- NOTE | 2022-09-01 19:36 | Hospitalist Progress Note ---
Date of Service September 01, 2022 Assessment & Plan (1) Leg weakness: Plan: bilateral legs did have b/l arm weakness prior to admission and/or earlier in the stay but the arms today were normal with respect to the legs - the weakness has been waxing/waning since admission strength was better yesterday than today no evidence that the weakness is due to any joint disease CPK checked - wnl; doubt myopathy or myositis sed rate/crp minimally elevated B12 level wnl Lyme screen negative CT c-spine, t-spine, and l-spine with DJD but no severe spinal stenosis to account for b/l symptoms CT head without acute pathology b/l stroke is possible given prior h/o a.flutter but would be unusual just to affect the legs (and especially bilaterally) no spinal cord level to suggest transverse myelitis patellar reflexes are intact arguing against GBS paraneoplastic syndrome? neuromuscular junction disease? other? I don't see any obvious infectious source/cause that would cause generalized weakness I contacted Dr Hernandez from neurology who will provide consultation in the am MRI brain requested from Dr Hernandez due to the aneurysm clip being 10 years old it is likely non-ferromagnetic however I can't prove that at this time I have contacted her neurosurgeon in [place] to get more information on the aneurysm clip to see if it is MR compatible hopefully it is MR compatible and we can proceed with MR brain (2) History of cerebral aneurysm repair: Plan: 2012 s/p clipping aneurysm was L MCA frontotemporal encephalomalacia on left noted on CT head this admission no ICH on CT head this admission either previous CTA head at [facility] - 2019 - stable L MCA clips; 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 was previous coreg usage masking his symptoms a bit as he reports the jerks have worsened while here?? (4) Bradycardia: Plan: Noted on admission to have HR 30s Now resolved with stopping his coreg remains on amiodarone without any further bradycardia appreciate cardiology assistance (5) End-stage renal disease on peritoneal dialysis: Plan: On nightly peritoneal dialysis appreciate recs from Dr Cordon - [facility] Nephrology Defer calcium/phos management to Dr Cordon noted -- dose adjustments in calcitriol and phoslo trend BMP/ca/phos levels (6) COPD (chronic obstructive pulmonary disease): Plan: no exacerbation at this time mild wheezing but no pulmonary symptoms today cont usual maintenance inhalers. (7) PAF (paroxysmal atrial fibrillation): Plan: Not on chronic anticoagulation due to history of ICH from aneurysm (2012). Cont amiodarone to maintain NSR. Only d/c amiodarone if he develops clinically significant bradycardia despite holding Coreg. (8) HTN (hypertension): Plan: Controlled with use of amlodipine in koffi of coreg. (9) Alzheimer disease: (10) Secondary hyperparathyroidism (of renal origin): Plan: Continue phosphate binders. Noted the change in calcium acetate dose as recommended by Dr Cordon. Plan daughter, grand-daughters updated at bedside Admission and Anticipated Discharge Date Admission Date: August 29, 2022 Subjective tele overnight - HRs now >60 consistently; no further bradycardia no dysrhythmia although patient was able to ambulate with a walker yesterday to the bathroom he had considerable difficulty with such today per PT notes he had tremors/myoclonic type jerks of his arms/legs during therapy he was quite weak during ambulation trials PT notes indicate he walked ~15 feet with rolling walker patient reports his "legs felt rubbery" while walking today and felt like "both legs could go out" states his arms feel pretty good today able to self-feed and perform other ADLs with arms denies any recent illness appetite is robust denies significant back pain, groin pain, hip pain or knee pain denies ankle or foot pain b/l denies neck pain or any injury denies headaches he has h/o intracerebral hemorrhage on left from ruptured aneurysm s/p clipping at [facility] in [address] Jose Armando Gunderson and K[facility]ED[facility] no [facility] since the 2013 event to family's knowledge he has not had a recent MRI brain - just CTs or CTAs with respect to the jerks of his arms/legs he states that this is new as well - started about the time of his arm/leg weakness denies any recent changes in meds or new meds denies myalgias Review of Systems Review of Systems: gen - no fevers or chills cv - no cp, no orthopnea pulm - no cough or dyspnea GI - no abd pain or N/V - on nightly PD, denies abd pain; PD fluid has been clear Physical Exam Physical Exam: gen - NAD, pleasant; occasional myoclonic jerks of arms; none seen in legs mouth - MMM, no lesions neck - no JVD heart - RRR, s1 s2, 1/6 SEB lungs - mild exp wheezing b/l; no rales abd - soft NT ND BS+; PD catheter in place, clean ext - no edema, pulses 2+ b/l neuro - strength b/l arms 5/5; no pronator drift; no proximal muscle weakness of arms/shoulders;; b/l hip flexion about 4/5; b/l ankle dorsiflexion/plantarflexion about 5/5; patellar reflexes 2+ b/l; arm reflexes 2+ b/l; achilles reflexes 0 b/l; sensation intact to light touch x 4 exts; speech clear/fluent; no facial droop musculo - no joint effusions of small/large joints of upper or lower exts skin - no rash psych - a/o x 3 Results & Data Results & Data ([facility]) Vital Signs (Past 12 Hours) Vital Signs Temp Pulse Pulse Pulse Pulse Resp BP 09/01/22 17:55 36.6 C 81 77 18 136/65 09/01/22 15:00 80 09/01/22 15:58 36.6 C 81 18 134/74 09/01/22 11:46 36.7 C 71 18 122/60 09/01/22 08:07 36.5 C 72 17 09/01/22 08:07 36.5 C 72 17 141/75 H Pulse Ox O2 Del Method 09/01/22 17:55 09/01/22 15:00 09/01/22 15:58 94 Room Air 09/01/22 11:46 91 Room Air 09/01/22 08:07 09/01/22 08:07 93 Room Air Laboratory Results Laboratory Results - last 24 hr 03/14/23 03/14/23 03/14/23 05:55 05:55 13:58 ESR 45 H Sodium 135 L Potassium 4.0 Chloride 98 Carbon Dioxide 20 L Anion Gap 17 H BUN 76 H Creatinine 10.74 H* D Est Cr Clr Drug Dosing 6.8 Est GFR ( Amer) 4.9 Est GFR (Non-Af Amer) 4.2 BUN/Creatinine Ratio 7.1 L Glucose 118 H Calcium 8.3 L Phosphorus 7.5 H Total Creatine Kinase C-Reactive Protein Vitamin B12 Lyme Disease IgG Ab Negative Lyme Disease IgM Ab Negative 09/01/22 09/01/22 13:58 13:58 ESR Sodium Potassium Chloride Carbon Dioxide Anion Gap BUN Creatinine Est Cr Clr Drug Dosing Est GFR ( Amer) Est GFR (Non-Af Amer) BUN/Creatinine Ratio Glucose Calcium Phosphorus Total Creatine Kinase 23 L C-Reactive Protein 3.42 H Vitamin B12 653 Lyme Disease IgG Ab Lyme Disease IgM Ab Diagnostic Findings Cervical Spine CT 09/01/22 13:17 CT SCAN OF THE CERVICAL SPINE CLINICAL HISTORY: Bilateral lower extremity weakness. COMPARISON STUDY: CT of the cervical spine dated 06/30/2021. TECHNIQUE: CT scan of the cervical spine is performed from the skull base to the upper thoracic spine. Images are reviewed in the axial, sagittal, and coronal planes. IV contrast was not administered for this examination. A dose lowering technique was utilized adhering to the principles of ALARA. CT DOSE: 1301.63 mGy.cm FINDINGS: Skeletal structures: The skeletal structures are osteopenic. There is no evidence of fracture or subluxation involving the cervical spine. Vertebral body height and alignment are maintained throughout the cervical spine. There is a minimal chronic superior endplate compression deformity of T1. There is straightening of the cervical lordosis. Anterior osteophytes are seen throughout. The odontoid process and lateral masses are intact. The atlantoaxial articulation is preserved noting productive degenerative change. The spinous processes appear intact. There is moderate multilevel cervical spondylosis. Uncovertebral and facet arthropathy contributes to neuroforaminal narrowing at several levels. This is moderate to severe bilaterally at C3-C4, on the left at C4-C5, bilaterally at C5-C6, and bilaterally at C6-C7. Intervertebral discs: There is moderate disc space narrowing at C5-C6 and C6-C7. Mild narrowing is seen at the remaining cervical levels. Central canal: Grossly patent. Soft tissues: The prevertebral and paraspinous soft tissues are within normal limits. There is atherosclerotic calcification of the carotid bulbs. Calvarium: The visualized calvarium at the skull base appears intact. Brain parenchyma: Partially visualized brain parenchyma at the skull base is within normal limits. Sinuses and mastoids: The visualized paranasal sinuses are clear. There is trace right mastoid effusion. The left mastoid air cells are well pneumatized. Lung apices: Emphysematous change and fibrosis is noted at both apices. IMPRESSION: 1. No acute bony abnormality is seen involving the cervical spine. 2. Osteopenia and spondylitic change as above. ACT 112: Negative or not required by law. Electronically signed by: Jeet Ramirez M.D. 09/01/2022 3:[address] 09/01/22 13:17 CT SCAN OF THE THORACIC SPINE WITHOUT IV CONTRAST CLINICAL HISTORY: Bilateral lower extremity weakness. COMPARISON STUDY: Chest CT dated 06/30/2021. TECHNIQUE: CT scan of the thoracic spine is performed from the lower cervical spine to the upper lumbar spine. Images are reviewed in the axial, sagittal, and coronal planes. IV contrast was not administered for this examination. A dose lowering technique was utilized adhering to the principles of ALARA. FINDINGS: The skeletal structures are osteopenic. There is no evidence of acute fracture or malalignment. There are minimal chronic superior endplate compression deformities of T1, T2, T3, T4, T5, and L1. No retropulsed fragments are identified. Vertebral body height is otherwise maintained. Alignment is preserved. Anterior osteophytes are seen throughout. There is mild hyperkyphosis. The transverse and spinous processes appear intact. No lytic or blastic lesion is seen. There is mild multilevel degenerative disc space narrowing. There is no CT evidence of large disc herniation or high-grade central canal stenosis. Calcification of the posterior aspect of the thecal sac is similar to previous. The paraspinous soft tissues are normal as visualized. The posterior ribs are intact as visualized. The heart is enlarged and there is advanced atherosclerotic calcification of the visualized thoracic aorta. Advanced emphysematous change is seen throughout both lungs with apical fibrosis. There are adjacent irregular right upper lobe pulmonary nodules on images #99 and #122. These measure 1.7 and 1.2 cm. There are 1.0 and 0.6 cm nod ules in the left upper lobe seen on image #100. These have increased in size and confluence as compared to the 06/30/2021 examination. There are enlarged mediastinal nodes which contain calcifications. These measure up to 1.7 cm in short axis. There are also calcification-containing right hilar nodes. There is a tiny hiatal hernia. The visualized kidneys appear enlarged and are infiltrated by numerous cysts suggestive of autosomal dominant polycystic kidney disease. Nodularity of the adrenal glands is unchanged. These meet CT criteria for fat- containing adenomas. IMPRESSION: 1. No acute bony abnormality is seen involving the thoracic spine. 2. Mild chronic compression deformities with degenerative change and hyperkyphosis as above. 3. Cardiomegaly and advanced emphysema. 4. Irregular bilateral upper lobe nodular opacities are detailed above. Although these could be on inflammatory basis, these have increased in size and confluence as compared to the 06/30/[address] and the appearance is more suspicious for multifocal neoplasm. Pulmonology follow-up is recommended. 5. Findings suggest autosomal dominant polycystic kidney disease. 6. Mildly enlarged mediastinal lymph nodes are pathologically indeterminate. 7. Additional findings as above. ACT 112: Negative or not required by law. Dictated: 09/01/2022 3:20 PM Transcribed: 09/01/2022 3:33 PM Berna [id number] TO_Gerry Electronically signed by: Jeet Ramirez M.D. 09/01/2022 3:41 PM PG Care Time/CCT Total # of Minutes Spent Total Time Spent with Patient: Total time spent is greater than 50% in coordination of care (as documented) at patient's floor/unit and/or counseling patient: Coding Level of Care Code 60496 SUB INP/OBS CARE 3/50MIN Diagnoses Leg weakness R29.898 History of cerebral aneurysm repair Z98.890; Z86.79 Myoclonic jerking G25.3 Bradycardia R00.1 End-stage renal disease on peritoneal dialysis N18.6; Z99.2 COPD (chronic obstructive pulmonary disease) J44.9 COPD type: unspecified COPD PAF (paroxysmal atrial fibrillation) I48.0 HTN (hypertension) I10 Hypertension type: unspecified Alzheimer disease G30.9; F02.80 Secondary hyperparathyroidism (of renal origin) N25.81 (6) COPD (chronic obstructive pulmonary disease) COPD type: unspecified COPD Qualified Code(s): J44.9 - Chronic obstructive pulmonary disease, unspecified (8) HTN (hypertension) Hypertension type: unspecified Qualified Code(s): I10 - Essential (primary) hypertension
[2022-09-02 06:51] LABS: BUN Creatinine Ratio 7.5 (10-20); Calcium 8.6 mg/dl (8.5-10.1); Creatinine Clr Calc Pharmacy 7.1 ml/min; Est GFR (African American) 5.2 ml/min; Est GFR (Non-African American) 4.5 ml/min; Potassium 4.1 mmol/L (3.5-5.1)
[2022-09-02] MEDS: CALCIUM ACETATE 667 MG CAP/TAB PO SCH ×3 (08:13→17:09)
[2022-09-02] MEDS: guaiFENesin 600 MG TABCR PO SCH ×2 (08:14→21:05)
[2022-09-02] MEDS: amLODIPine BESYLATE 5 MG TAB PO SCH (08:14)
[2022-09-02] MEDS: DOCUSATE SODIUM 100 MG CAP PO SCH ×2 (08:15→21:05)
[2022-09-02] MEDS: AMIODARONE 200 MG TAB PO SCH (08:16)
[2022-09-02] MEDS: UMECLIDINIUM/VILANTEROL 62.5/25MCG 7 PUFFS/INHALER INH SCH (08:16)
[2022-09-02] MEDS: POLYETHYLENE (MIRALAX) 17 GM PACK PO SCH ×2 (08:16→21:04)
[2022-09-02] MEDS: CALCITRIOL 0.25 MCG CAPSULE PO SCH (08:16)
--- NOTE | 2022-09-02 10:40 | Nephrology Progress Note ---
Date of Service September 02, 2022 Assessment & Plan (1) End-stage renal disease on peritoneal dialysis: Plan: NCCPD. Rx 5 exchanges with 80 minute dwell. 2.5.%/1.5% split bath. EDW 74 kg. Orders for this evening entered into the EHR and reviewed with the slate trimmer. Volume status euvolemic. Clearance acceptable. Document I/O's and daily renal profile while inpatient. Renal diet. Electrolytes controlled. Medications appropriately dosed for PD. (2) Bradycardia: Plan: Improved heart rate noted. Carvedilol has been held. Remains on amiodarone. (3) Secondary hyperparathyroidism (of renal origin): Plan: Calcitriol increased to 1.25 daily. No Sensipar while inpatient. Low phosphorus diet. Phoslo 3 tab QAC while inpatient; resume Auryxia at discharge. (4) Anemia: Plan: Chronic, stable. PATRICK not required. Admission and Anticipated Discharge Date Admission Date: August 29, 2022 Subjective No acute events overnight. Sleeping comfortably in bed this AM. Sisi states that he has not been out of bed so he cannot comment on LE weakness this AM. Shakiness and tremor in arms seems to have improved. Appetite is good. To lerating PD well. No complications with dialysis reported. Denies constipation. Review of Systems Review of Systems: All systems reviewed & are unremarkable except as noted in HPI & below Physical Exam Constitutional: well developed; no acute distress Eyes: no scleral abnormality and no corneal abnormality ENMT: Mouth: no oral mucosal abnormality and oral mucous membranes not dry Neck: normal visual inspection and trachea midline Respiratory: normal respiratory effort Auscultation: lungs clear to auscultation bilaterally Cardiovascular: Rate/Rhythm: regular rate Heart Sounds: normal S1 and normal S2 Extremities: no edema Musculoskeletal: Extremities: no cyanosis and no clubbing Skin: normal turgor; no lesions Neurologic: Motor/Sensory: no tremor and no asterixis Psychiatric: Orientation: alert and oriented x 3 Results & Data Vital Signs (Past 12 Hours) Vital Signs Temp Pulse Pulse Pulse Resp BP Pulse Ox 09/02/22 08:18 36.7 C 83 19 09/02/22 07:42 36.7 C 83 19 127/76 91 09/02/22 07:42 76 09/02/22 03:06 36.8 C 83 20 157/81 H 92 09/01/22 23:04 36.4 C L 81 18 157/91 H 93 O2 Del Method 09/02/22 08:18 09/02/22 07:42 Room Air 09/02/22 07:42 09/02/22 03:06 Room Air 09/01/22 23:04 Room Air Laboratory Results Laboratory Results - last 24 hr 09/01/22 09/01/22 09/01/22 13:58 13:58 13:58 ESR 45 H Sodium Potassium Chloride Carbon Dioxide Anion Gap BUN Creatinine Est Cr Clr Drug Dosing Est GFR ( Amer) Est GFR (Non-Af Amer) BUN/Creatinine Ratio Glucose Calcium Total Creatine Kinase 23 L C-Reactive Protein 3.42 H Vitamin B12 653 09/02/22 05:56 ESR Sodium 137 Potassium 4.1 Chloride 99 Carbon Dioxide 22 Anion Gap 16 H BUN 77 H Creatinine 10.29 H* D Est Cr Clr Drug Dosing 7.1 Est GFR ( Amer) 5.2 Est GFR (Non-Af Amer) 4.5 BUN/Creatinine Ratio 7.5 L Glucose 100 H Calcium 8.6 Total Creatine Kinase C-Reactive Protein Vitamin B12 PG Care Time/CCT Total # of Minutes Spent Total Time Spent with Patient: Total time spent is greater than 50% in coordination of care (as documented) at patient's floor/unit and/or counseling patient: Coding Level of Care Code 54969 SUB INP/OBS CARE 3/50MIN Diagnoses End-stage renal disease on peritoneal dialysis N18.6; Z99.2 Bradycardia R00.1 Secondary hyperparathyroidism (of renal origin) N25.81 Anemia D64.9 Anemia type: unspecified type (4) Anemia Anemia type: unspecified type Qualified Code(s): D64.9 - Anemia, unspecified
--- NOTE | 2022-09-02 12:58 | Neurology Consultation ---
Date of Consultation September 02, 2022 Assessment & Plan (1) Leg weakness: Plan NEUROLOGY CONSULTATION Assessment & Plan: Impression: overall picture does not suggestive of central etiology for his subjective mild b/l leg hip flexion weakness. it appears peripheral in nature and suggestion of deconditioning and perhaps his bradycardia contributing to subjective feeling of weak. not suspecting myositis either at this point. As per myoclonic movements, presentation suggestive of benign myoclonic jerks, which is benign in nature and if wants to try med, can try neurontin 300mg po bid-tid prn for symptomatic treatment. Recommendations: -aggressive physical therapy and conditioning exercise to improve general muscle strength. - i do not feel he needs mri brain at this point as his neuro exam and clinical picture does not fit the BREAKER OFF lesion. -no need for EMG at this point, unless his feels still weak in next 2-3 weeks then, can consider outpatient EMG/NCS of lower ext. not much else to add from neurology. please call again if new question. Dr. Melchor Hernandez MD [facility] Neurology Chief Complaint: weakness History of Present Illness: pt feels his strength is improved and arm is no longer weak. his legs are slightly feeling weak but able to move without issue. CT imaging of spine and brain negative. pt with occasional myoclonic like jerks, also in sleep too. normal coordination. no pain in muscles. Admission/Initial HPI documentation: 72-year-old male past medical history significant for COPD not on chronic oxygen, ESRD on peritoneal dialysis nightly, history of cerebral aneurysm/hemorrhage, paroxysmal A-fib not on chronic anticoagulation, anemia of chronic disease, dementia presented to the ER for 24- 48 hours of bilateral leg>arm weakness, without associated vision changes, dysarthria, dysphagia. He also denies associated sensation of lightheadedness, and did not recently passed out. Denies chest pain, shortness of breath, nausea. In the ER patient was noted to be bradycardic in the 30s, did have pacer pads placed but not initiated, was also given magnesium and calcium gluconate. Heart rate improved to the 50s by the time of my evaluation. Chest x-ray did not show any evidence of acute chest disease. Lab work notable for a hemoglobin of 12.8 (actually significantly higher than previous readings), K4.3, creatinine 12.19 (wide baseline on dialysis), calcium 7.7 with an iCal of 0.92, troponin 128.1, TSH normal. On review of MAR, patient has a prior history of being on metoprolol, however do not see any recent fills for this medication. He is on amiodarone 200 mg daily, and carvedilol 25 mg twice daily. Past Medical History: See chart Meds: See chart I personally reviewed all of the medications Social & Family History: See chart Review of Systems: Per initial HPI on admission. Physical Exam: GEN: NAD HEENT: Normocephalic Neuro: Mental status:A & O x 3.No dysarthria or aphasia.No neglect. Fluent speech. No apraxia Cranial Nerves:II-XII intact Motor:reduced muscle mass b/l lower ext.,5/5 strength upper limbs b/l. 5-/5 hip flexion but otherwise 5/5 at the knee and distal feet b/l. no problem sitting to standing without using hands from the bed. Coordination:Intact FTN testing Reflexes:+1 throughout, down going toes molly Sensation: Intact x 4 extremities to touch Gait: able to take few steps without problem. Chart reviewed I have spent more than 50% educating patient about potential diagnosis and neurological evaluation and coordinating care with patient's treatment team. Total time spent (including chart review and coordination of care): 80 min (this includes chart review). History of Present Illness Attending Physician: Catrachito Kennedy Allergies Allergy/AdvReac Type Severity Reaction Status Date / Time lisinopril AdvReac Mild COUGH Verified 08/29/22 17:36 Home Medications Medication Instructions Recorded Confirmed Type nebulizer accessories #1 ea 10/30/19 08/29/22 Rx tiotropium 2.5 mcg-olodaterol 2.5 2 puff inhalation QAM #4 grams 02/18/21 08/29/22 Rx mcg/actuation mist for inhalation (Stiolto Respimat) calcitriol 0.5 mcg capsule 1 mcg PO QAM 06/30/21 08/29/22 History polyethylene glycol 3350 17 17 g PO BID 06/30/21 08/29/22 History gram/dose oral powder (Miralax) gabapentin 100 mg capsule 100 mg PO Q2D #0 caps 07/15/21 08/29/22 Rx docusate sodium 100 mg capsule 400 mg PO BID 07/31/21 08/29/22 History (Colace) cinacalcet 30 mg tablet (Sensipar) 30 mg PO DAILY 03/27/22 08/29/22 History diphenhydramine HCl 50 mg capsule 50 mg PO HS 03/27/22 08/29/22 History guaifenesin 1,200 mg tablet, 1,200 mg PO BID 03/27/22 08/29/22 History extended release 12 hr (Mucinex) acetaminophen 650 mg 1,300 mg PO Q12H 08/29/22 08/29/22 History tablet,extended release albuterol sulfate 90 mcg/actuation 2 inh inhalation Q6H PRN shortness 08/29/22 08/29/22 History aerosol inhaler (ProAir HFA) of breath or wheezing amiodarone 200 mg tablet 200 mg PO DAILY 08/29/22 08/29/22 History carvedilol 25 mg tablet 25 mg PO BID 08/29/22 08/29/22 History epinephrine 0.3 mg/0.3 mL 0.3 mg IM Q4H PRN as directed 08/29/22 08/29/22 Histo ry injection, auto-injector (EpiPen) ipratropium 0.5 mg-albuterol 3 mg 3 ml inhalation QAM 08/29/22 08/29/22 History (2.5 mg base)/3 mL nebulization soln Patient History Medical History Alzheimer disease Anemia Benign neoplasm of skin of nose removed once Benign prostate hyperplasia CCPD (continuous cycling peritoneal dialysis) status port in place left abdomen--dialysis daily at home; second port that has been placed for dialysis. Chronic obstructive pulmonary disease inhaler/nebulizer daily Diverticulosis Gout hx Hemorrhoids "not currently flared" History of marijuana use daily Hx of atrial flutter 06/2021, hospitalized w/pneumonia for almost 3 weeks; dx atrial flutter- currently amiodarone; f/u dr. [place] Hypercalcemia Hypertension Intracranial hemorrhage 2012 Low back pain On home oxygen therapy 2L N/C at hs Polycystic kidney disease, adult type (09/03/12) Secondary hyperparathyroidism of renal origin Tremor of both hands Vitamin D deficiency Surgical History History of cerebral aneurysm repair 2012 [facility] [place]--clips/coils in place History of colonoscopy History of tooth extraction all teeth Family History Other No family history of adverse response to anesthesia Denies family history of Myocardial infarction Social History Smoking Status: Former smoker Second Hand Exposure: No; Do You Dip or Chew Tobacco: No; Tobacco Cessation Education Requested by Patient: No Hx Alcohol Use: No Hx Substance Use: No Preferred Language: Afghan Communication Ability: Effective Pump Operator Required: No Beliefs That Will Affect Care: None marital status: Single Current Living Situation: Spouse Current Living Situation Comment: Patient lives with granddaughter, Leti, and granddaughter spouse and kids How many Children do You have: 1 Other Information That Helps Us Care for You: No Feels Safe at Home: Yes Safety Concerns: Feels Safe At This Time Assistive Devices: None Results & Data Vital Signs (Past 12 Hours) Vital Signs Temp Pulse Pulse Pulse Resp BP Pulse Ox 09/02/22 12:19 36.8 C 79 19 142/75 H 92 09/02/22 08:18 36.7 C 83 19 09/02/22 07:42 36.7 C 83 19 127/76 91 09/02/22 07:42 76 09/02/22 03:06 36.8 C 83 20 157/81 H 92 O2 Del Method 09/02/22 12:19 Room Air 09/02/22 08:18 09/02/22 07:42 Room Air 09/02/22 07:42 09/02/22 03:06 Room Air
--- NOTE | 2022-09-02 20:24 | Hospitalist Progress Note ---
Date of Service September 02, 2022 Assessment & Plan (1) Leg weakness: Plan: bilateral legs IMPROVED/resolved also had b/l arm weakness prior to admission and/or earlier in the stay but the arms remain wnl weakness of legs had been waxing/waning since admission but strength is near- normal today extensive w/u - CT head, CT cervical spine, CT thoracic spine, CT lumbar spine without spinal cord abnormalities/stenosis/impingement and CT head without ICH/acute CVA/etc CPK, B12, Lyme - normal or negative sed rate/crp minimally elevated -- doubt any inflammatory process present causing weakness no spinal cord level to suggest transverse myelitis patellar reflexes are intact arguing against GBS no infectioous process present causing weaknes appreciate neuro consult from Dr Hernandez no further imaging recommended he felt that deconditioning played a role in weakness can't rule out that recently low calcium contributed to the weakness as well as myoclonic jerks cont PT/OT rehab post-d/c (2) History of cerebral aneurysm repair: Plan: 08/[address] - 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 noted by the family's report he likely has had CTAs head/neck at [facility] more recently see #1 above (3) Myoclonic jerking: Plan: recent Fe studies did not show iron deficiency mag and K wnl calcium had been mildly low but improved could consider ammonia level but doubt it would be elevated given his normal mentation, etc the jerking does not look like seizure activity appreciate neurology consultation they recommend modest increase in gabapentin for this benign but bothersome issue will increase to 200mg of gabapentin at HS every other day (4) Bradycardia: Plan: Noted on admission to have HR 30s Now resolved with stopping his coreg remains on amiodarone without any further bradycardia appreciate cardiology assistance (5) End-stage renal disease on peritoneal dialysis: Plan: On nightly peritoneal dialysis appreciate recs from Dr Cordon [place] [facility] [facility] Defer calcium/phos management to Dr Cordon noted -- dose adjustments in calcitriol and phoslo calcium improved while here (6) COPD (chronic obstructive pulmonary disease): Plan: no exacerbation at this time cont usual maintenance inhalers (7) PAF (paroxysmal atrial fibrillation): Plan: Not on chronic anticoagulation due to history of ICH from aneurysm (2012). Cont amiodarone to maintain NSR. Only d/c amiodarone if he develops clinically significant bradycardia despite holding Coreg. (8) HTN (hypertension): Plan: Controlled with use of amlodipine in koffi of coreg. 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 Noted the change in calcium acetate dose as recommended by Dr Cordon. Plan daughter updated by phone this evening dispo - rehab post-d/c Admission and Anticipated Discharge Date Admission Date: August 29, 2022 Subjective patient had a "good day" today walked 70 feet with walker x 2 [address] hallway today strength in legs was much better tremors/myoclonic jerks were better today as well robust appetite denies dyspnea, cp or abd pain tele overnight wnl he is very receptive to obtaining rehab post-d/c Review of Systems Review of Systems: gen - no fevers cv - no cp, no orthopnea pulm - mild baseline wheezing with VAZQUEZ but no change from usual, chronic symptoms GI - no pain/nausea/emesis Physical Exam Physical Exam: gen - NAD, pleasant, sitting at side of bed; looks good today; no myoclonic jerks of any limb noted today mouth - MMM, no lesions neck - no JVD heart - RRR, s1 s2, 1/6 SEB LSB lungs - mild exp wheezing b/l - unchanged; no rales abd - soft NT ND BS+ ext - no edema, pulses 2+ b/l neuro - strength b/l arms 5/5; b/l hip flexion today now normal - just about 5/5; plantarflexion/dorsiflexion of feet 5/5 b/l psych - a/o x 3 Results & Data Results & Data Vital Signs (Past 12 Hours) Vital Signs Temp Pulse Pulse Pulse Resp BP Pulse Ox 09/02/22 19:33 36.5 C 77 18 150/82 H 92 09/02/22 17:45 36.5 C 83 18 134/81 09/02/22 16:46 36.5 C 77 18 134/81 91 09/02/22 15:00 76 09/02/22 12:19 36.8 C 79 19 142/75 H 92 O2 Del Method 09/02/22 19:33 Room Air 09/02/22 17:45 09/02/22 16:46 Room Air 09/02/22 15:00 09/02/22 12:19 Room Air Laboratory Results Laboratory Results - last 24 hr 09/02/22 05:56 Sodium 137 Potassium 4.1 Chloride 99 Carbon Dioxide 22 Anion Gap 16 H BUN 77 H Creatinine 10.29 H* D Est Cr Clr Drug Dosing 7.1 Est GFR ( Amer) 5.2 Est GFR (Non-Af Amer) 4.5 BUN/Creatinine Ratio 7.5 L Glucose 100 H Calcium 8.6 PG Care Time/CCT Total # of Minutes Spent Total Time Spent with Patient: Total time spent is greater than 50% in coordination of care (as documented) at patient's floor/unit and/or counseling patient: Coding Level of Care Code 61543 SUB INP/OBS CARE 2/35MIN Diagnoses Leg weakness R29.898 History of cerebral aneurysm repair Z98.890; Z86.79 Myoclonic jerking G25.3 Bradycardia R00.1 End-stage renal disease on peritoneal dialysis N18.6; Z99.2 COPD (chronic obstructive pulmonary disease) J44.9 COPD type: unspecified COPD PAF (paroxysmal atrial fibrillation) I48.0 HTN (hypertension) I10 Hypertension type: unspecified Alzheimer disease G30.9; F02.80 Secondary hyperparathyroidism (of renal origin) N25.81 (6) COPD (chronic obstructive pulmonary disease) COPD type: unspecified COPD Qualified Code(s): J44.9 - Chronic obstructive pulmonary disease, unspecified (8) HTN (hypertension) Hypertension type: unspecified Qualified Code(s): I10 - Essential (primary) hypertension
[2022-09-02] MEDS ORDERED: GABAPENTIN 100 MG CAP PO SCH (21:00)
[2022-09-02] MEDS: GABAPENTIN 100 MG CAP PO SCH (21:00)
[2022-09-03] MEDS: DOCUSATE SODIUM 100 MG CAP PO SCH ×2 (08:38→21:16)
[2022-09-03] MEDS: guaiFENesin 600 MG TABCR PO SCH ×2 (08:39→21:17)
[2022-09-03] MEDS: AMIODARONE 200 MG TAB PO SCH (08:40)
[2022-09-03] MEDS: CALCIUM ACETATE 667 MG CAP/TAB PO SCH ×3 (08:40→18:03)
[2022-09-03] MEDS: CALCITRIOL 0.25 MCG CAPSULE PO SCH (08:40)
[2022-09-03] MEDS: amLODIPine BESYLATE 5 MG TAB PO SCH (08:40)
[2022-09-03] MEDS: UMECLIDINIUM/VILANTEROL 62.5/25MCG 7 PUFFS/INHALER INH SCH (08:41)
[2022-09-03] MEDS: POLYETHYLENE (MIRALAX) 17 GM PACK PO SCH ×2 (08:44→21:17)
--- NOTE | 2022-09-03 10:03 | Nephrology Progress Note ---
Date of Service September 03, 2022 Assessment & Plan (1) End-stage renal disease on peritoneal dialysis: Plan: NCCPD. Rx 5 exchanges with 80 minute dwell. 2.5.%/1.5% split bath. EDW 74 kg. Orders for this evening entered into the EHR and reviewed with the kick press operator. Volume status euvolemic. Clearance acceptable. Document I/O's and daily weight. Repeat renal profile tomrorow AM. Renal diet. Medications appropriately dosed for PD. (2) Bradycardia: Plan: Carvedilol has been held. Remains on amiodarone. HR acceptable. (3) Secondary hyperparathyroidism (of renal origin): Plan: Calcitriol 1.25 daily. No Sensipar while inpatient. Low phosphorus diet. Phoslo 3 tab QAC while inpatient; resume Auryxia at discharge. (4) Anemia: Plan: Chronic, stable. PATRICK not required. Admission and Anticipated Discharge Date Admission Date: August 29, 2022 Subjective No acute events overnight. Tolerated PD without complications. Weight stable. Denies any fluid retention or edema. Sisi reports a good day yesterday. Tremors have resolved. Strength in his legs improved. Unfortunately, this AM his tremors have returned. He is experiencing some fasciculations in his hands and upper extremities. He slept well last night. Review of Systems Review of Systems: All systems reviewed & are unremarkable except as noted in HPI & below Physical Exam Constitutional: well developed and + thin; no acute distress Eyes: + anicteric sclerae; no corneal abnormality ENMT: Mouth: no oral mucosal abnormality and oral mucous membranes not dry Neck: normal visual inspection and trachea midline Respiratory: normal respiratory effort Auscultation: lungs clear to auscultation bilaterally Cardiovascular: Rate/Rhythm: regular rate Heart Sounds: normal S1, normal S2 and + murmur Extremities: no edema Gastrointestinal (Abdomen): Inspection/Auscultation: + abdomen distended and normal bowel sounds Percussion/Palpation: abdomen soft; abdomen nontender Musculoskeletal: Extremities: no cyanosis and no clubbing Skin: normal turgor and + turgor decreased; no lesions and no jaundice Neurologic: Motor/Sensory: + tremor; no asterixis Psychiatric: Orientation: alert, oriented x 3 and cooperative Results & Data Vital Signs (Past 12 Hours) Vital Signs Temp Pulse Pulse Pulse Pulse Resp BP 09/03/22 07:35 36.6 C 81 18 09/03/22 06:48 36.6 C 81 18 131/78 09/03/22 02:43 36.6 C 88 18 134/72 09/02/22 23:00 84 09/02/22 22:48 36.4 C L 86 18 144/78 H Pulse Ox O2 Del Method 09/03/22 07:35 09/03/22 06:48 92 Room Air 09/03/22 02:43 92 Room Air 09/02/22 23:00 09/02/22 22:48 94 Room Air PG Care Time/CCT Total # of Minutes Spent Total Time Spent with Patient: Total time spent is greater than 50% in coordination of care (as documented) at patient's floor/unit and/or counseling patient: Coding Level of Care Code 66117 SUB INP/OBS CARE 3/50MIN Diagnoses End-stage renal disease on peritoneal dialysis N18.6; Z99.2 Bradycardia R00.1 Secondary hyperparathyroidism (of renal origin) N25.81 Anemia D64.9 Anemia type: unspecified type (4) Anemia Anemia type: unspecified type Qualified Code(s): D64.9 - Anemia, unspecified
--- NOTE | 2022-09-03 19:59 | Hospitalist Progress Note ---
Date of Service September 03, 2022 Assessment & Plan (1) Leg weakness: Plan: bilateral legs resolved also had b/l arm weakness prior to admission and/or earlier in the stay but the arms remain wnl extensive w/u - CT head, CT cervical spine, CT thoracic spine, CT lumbar spine without spinal cord abnormalities/stenosis/impingement and CT head without ICH/acute CVA/etc CPK, B12, Lyme - normal or negative sed rate/crp minimally elevated -- doubt any inflammatory process present causing weakness no spinal cord level to suggest transverse myelitis patellar reflexes are intact arguing against GBS no infectious process present causing weakness appreciate neuro consult from Dr Hernandez no further imaging recommended he felt that deconditioning played a role in weakness as well can't rule out that recently low calcium contributed to the weakness cont PT/OT rehab post-d/c - [facility]? 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 will ask neurology to re-eval in am was coreg masking an essential tremor and now that coreg has been d/c his symptoms are worse??? other? (4) Bradycardia: Plan: Noted on admission to have HR 30s Now resolved with stopping his coreg remains on amiodarone without any further bradycardia appreciate cardiology assistance (5) End-stage renal disease on peritoneal dialysis: Plan: On nightly peritoneal dialysis appreciate recs from Dr Cordon - [facility] [place] [facility] Defer calcium/phos management to Dr Cordon noted -- dose adjustments in calcitriol and phoslo calcium improved/normalized while here (6) COPD (chronic obstructive pulmonary disease): Plan: no exacerbation at this time cont usual maintenance inhalers (7) PAF (paroxysmal atrial fibrillation): Plan: Not on chronic anticoagulation due to history of ICH from aneurysm (2012). Cont amiodarone to maintain NSR. Only d/c amiodarone if he develops clinically significant bradycardia despite holding Coreg. (8) HTN (hypertension): Plan: Controlled with use of amlodipine in koffi of coreg. 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 Noted the change in calcium acetate dose as recommended by Dr Cordon. Plan daughter updated by phone yesterday evening dispo - rehab post-d/c Admission and Anticipated Discharge Date Admission Date: August 29, 2022 Subjective patient states he had a good night overnight but then woke up and have the "twitches" of his arms/legs it lasted a good part of the morning then got better by afternoon despite such his strength remains very good in his legs no new concerns eating well awaiting rehab tele overnight - no bradycardia no dysrhythmia Review of Systems Review of Systems: cv - no chest pain, no orthopnea pulm - no dyspnea; mild chronic cough GI - no abd pain/N/V Physical Exam Physical Exam: gen - NAD, pleasant, no myoclonic jerks during my visit mouth - MMM, no lesions neck - no JVD heart - RRR, s1 s2, 1/6 SEB LSB lungs - mild exp wheezing b/l - scattered; no rales abd - soft NT ND BS+ ext - no edema, pulses 2+ b/l neuro - strength b/l arms 5/5; b/l hip flexion remains 5/5; 5/5 strength b/l feet/ankles psych - a/o x 3 Results & Data Results & Data Vital Signs (Past 12 Hours) Vital Signs Temp Pulse Pulse Resp BP Pulse Ox O2 Del Method 09/03/22 19:12 36.6 C 82 19 165/90 H 93 Room Air 09/03/22 18:18 36.6 C 75 18 149/81 H 09/03/22 15:40 36.6 C 75 18 149/81 H 93 Room Air 09/03/22 11:39 36.5 C 77 18 140/79 92 Room Air PG Care Time/CCT Total # of Minutes Spent Total Time Spent with Patient: Total time spent is greater than 50% in coordination of care (as documented) at patient's floor/unit and/or counseling patient: Coding Level of Care Code 03708 SUB INP/OBS CARE 2/35MIN Diagnoses Leg weakness R29.898 History of cerebral aneurysm repair Z98.890; Z86.79 Myoclonic jerking G25.3 Bradycardia R00.1 End-stage renal disease on peritoneal dialysis N18.6; Z99.2 COPD (chronic obstructive pulmonary disease) J44.9 COPD type: unspecified COPD PAF (paroxysmal atrial fibrillation) I48.0 HTN (hypertension) I10 Hypertension type: unspecified Alzheimer disease G30.9; F02.80 Secondary hyperparathyroidism (of renal origin) N25.81 (6) COPD (chronic obstructive pulmonary disease) COPD type: unspecified COPD Qualified Code(s): J44.9 - Chronic obstructive pulmonary disease, unspecified (8) HTN (hypertension) Hypertension type: unspecified Qualified Code(s): I10 - Essential (primary) hypertension
[2022-09-04 06:30] LABS: Hematocrit (blood only) 35.1 % (42.0-52.0); Hemoglobin 11.5 g/dl (14.0-18.0)
[2022-09-04 06:52] LABS: Albumin Level 3.2 gm/dl (3.4-5.0); BUN Creatinine Ratio 7.5 (10-20); Calcium 8.9 mg/dl (8.5-10.1); Creatinine Clr Calc Pharmacy 7.5 ml/min; Est GFR (African American) 5.5 ml/min; Est GFR (Non-African American) 4.7 ml/min; Phosphorus 5.5 mg/dl (2.5-4.9)
[2022-09-04] MEDS: CALCITRIOL 0.25 MCG CAPSULE PO SCH (08:30)
[2022-09-04] MEDS: amLODIPine BESYLATE 5 MG TAB PO SCH (08:30)
[2022-09-04] MEDS: guaiFENesin 600 MG TABCR PO SCH ×2 (08:30→20:49)
[2022-09-04] MEDS: DOCUSATE SODIUM 100 MG CAP PO SCH ×2 (08:31→20:49)
[2022-09-04] MEDS: AMIODARONE 200 MG TAB PO SCH (08:31)
[2022-09-04] MEDS: CALCIUM ACETATE 667 MG CAP/TAB PO SCH ×3 (08:31→17:28)
[2022-09-04] MEDS: UMECLIDINIUM/VILANTEROL 62.5/25MCG 7 PUFFS/INHALER INH SCH (09:20)
--- NOTE | 2022-09-04 10:45 | Nephrology Progress Note ---
Date of Service September 04, 2022 Assessment & Plan (1) End-stage renal disease on peritoneal dialysis: Plan: NCCPD. Rx 5 exchanges with 80 minute dwell. 2.5.%/1.5% split bath. EDW 74 kg. Orders for this evening entered into the EHR and reviewed with the hotel supplies salesperson. Volume status euvolemic. Clearance acceptable. Document I/O's and daily weight. Monitor daily renal profile while inpatient. Renal diet. Medications appropriately dosed for PD. (2) Bradycardia: Plan: Carvedilol has been held. Remains on amiodarone. HR acceptable. (3) Secondary hyperparathyroidism (of renal origin): Plan: Calcitriol 1.25 daily. No Sensipar while inpatient. Low phosphorus diet. Phoslo 3 tab QAC while inpatient; resume Auryxia at discharge. (4) Anemia: Plan: Chronic, stable. PATRICK not required. Admission and Anticipated Discharge Date Admission Date: August 29, 2022 Subjective No acute events overnight. Sleeping comfortably in bed this morning. No complaints. Tolerated PD well. Review of Systems Review of Systems: All systems reviewed & are unremarkable except as noted in HPI & below Physical Exam Constitutional: well developed and + thin; no acute distress Eyes: + anicteric sclerae; no scleral abnormality and no corneal abnormality ENMT: Mouth: no oral mucosal abnormality and oral mucous membranes not dry Neck: normal visual inspection and trachea midline Respiratory: normal respiratory effort Auscultation: lungs clear to auscultation bilaterally and + rales (few basilar) Cardiovascular: Rate/Rhythm: regular rate Heart Sounds: normal S1, normal S2 and + murmur Extremities: no edema Gastrointestinal (Abdomen): Inspection/Auscultation: + abdomen distended and normal bowel sounds Percussion/Palpation: abdomen soft; abdomen nontender Musculoskeletal: Extremities: no cyanosis and no clubbing Skin: normal turgor and + turgor decreased; no lesions and no jaundice Neurologic: Motor/Sensory: + tremor; no fasciculations and no asterixis Psychiatric: Orientation: alert, oriented x 3 and cooperative Results & Data Vital Signs (Past 12 Hours) Vital Signs Temp Pulse Pulse Pulse Resp BP Pulse Ox 09/04/22 08:13 36.3 C L 81 18 142/77 H 93 09/04/22 07:25 36.5 C 81 18 09/04/22 03:51 36.5 C 81 18 144/85 H 92 09/03/22 23:00 36.5 C 75 18 171/89 H 91 09/03/22 23:00 77 O2 Del Method 09/04/22 08:13 Room Air 09/04/22 07:25 09/04/22 03:51 Room Air 09/03/22 23:00 Room Air 09/03/22 23:00 Laboratory Results Laboratory Results - last 24 hr 09/04/22 09/04/22 09/04/22 05:43 05:43 07:09 Hgb 11.5 L Hct 35.1 L Sodium 135 L Potassium 4.0 Chloride 98 Carbon Dioxide 23 Anion Gap 14 H BUN 74 H Creatinine 9.82 H* D Est Cr Clr Drug Dosing 7.5 Est GFR ( Amer) 5.5 Est GFR (Non-Af Amer) 4.7 BUN/Creatinine Ratio 7.5 L Glucose 105 H Calcium 8.9 Phosphorus 5.5 H Iron 92 TIBC 212 L Unsaturated IBC 120 L Transferrin % Sat 43 Ferritin Pending Ammonia 35.0 Albumin 3.2 L PG Care Time/CCT Total # of Minutes Spent Total Time Spent with Patient: Total time spent is greater than 50% in coordination of care (as documented) at patient's floor/unit and/or counseling patient: Coding Level of Care Code 05554 SUB INP/OBS CARE 3/50MIN Diagnoses End-stage renal disease on peritoneal dialysis N18.6; Z99.2 Bradycardia R00.1 Secondary hyperparathyroidism (of renal origin) N25.81 Anemia D64.9 Anemia type: unspecified type (4) Anemia Anemia type: unspecified type Qualified Code(s): D64.9 - Anemia, unspecified
[2022-09-04] MEDS: POLYETHYLENE (MIRALAX) 17 GM PACK PO SCH ×2 (10:59→20:49)
--- NOTE | 2022-09-04 11:58 | Neurology Progress Note ---
Date of Service September 04, 2022 Assessment & Plan (1) Myoclonic jerking: Plan Myoclonic jerking likely related to metabolic abnormality, chronic renal failure. No evidence of liver disease on recent lab evaluation. Healed area of left frontal encephalomalacia related to previous subarachnoid hemorrhage, aneurysm clipping, not likely responsible for his myoclonic jerking. These movements do not appear to be consistent with seizures. Although I see that gabapentin has been recommended for patient's myoclonus, this medication may not be optimal for this type of abnormal movement. I usually find Keppra more effective and would recommend discontinuing the gabapentin in favor of a low-dose of Keppra, [address] Kennedy. Admission and Anticipated Discharge Date Admission Date: August 29, 2022 Subjective Follow-up for myoclonus I was asked by Dr. Kennedy to reevaluate this patient regarding his abnormal involuntary movements. The patient was seen [address] Hernandez, [facility] neurology regarding leg weakness. Patient also noted to have myoclonic movements and a trial of gabapentin was recommended. Patient's weakness and myoclonic jerking occur in the context of COPD and end-stage renal disease on peritoneal dialysis. History also notable for cerebral aneurysm/hemorrhage, paroxysmal atrial fibrillation, not on anticoagulation, anemia, and perhaps dementia. The patient remarks that his weakness seems to be improving. He denies significant myalgia or generalized muscle pain at this time. He continues to endorse episodic, brief jerking movements of the upper limbs, sometimes the legs, not specifically stimulus induced. Review of Systems Constitutional: + fatigue; no fever Neurologic: as per Subjective / HPI and + abnormal movements; no headache(s) Results & Data Vital Signs (Past 12 Hours) Vital Signs Temp Pulse Pulse Resp BP Pulse Ox O2 Del Method 09/04/22 11:41 36.4 C L 79 18 146/78 H 93 Room Air 09/04/22 08:13 36.3 C L 81 18 142/77 H 93 Room Air 09/04/22 07:25 36.5 C 81 18 09/04/22 03:51 36.5 C 81 18 144/85 H 92 Room Air Laboratory Results Sodium 135, potassium 4.0, BUN 74, creatinine 9.82, glucose 105, calcium 8.9, ammonia 35.0, transaminases 1 week ago normal, total CK23 Diagnostic Findings CT of the head completed August 29, 2022 in the context of weakness, history of intracranial hemorrhage was negative for acute findings, no hemorrhage or acute infarct. There is generalized atrophy and focal encephalomalacia within the left frontal lobe. With evidence of what looks like an old aneurysm clip per my review of the images. Exam (Neuro) Neurologic: Oriented to:: Person and Place; negative Time Memory: Remote Intact; negative Short Term Intact Attention: Span Intact and Concentration Intact Speech Fluency: negative Dysarthria or Dysfluency Fund of Knowledge: Vocabulary Cranial Nerves: Normal II, III, IV, , V, VII, VIII, IX, X, XI and XII Motor Strength: Normal Lower Extremities and Normal Upper Extremities Sensation: Light Touch Intact Coordination: negative Finger- Nose Abnormal Details: Negative myoclonus observed with outstretched arms, both hands PG Care Time/CCT Total # of Minutes Spent Total Time Spent with Patient: Total time spent is greater than 50% in coordination of care (as documented) at patient's floor/unit and/or counseling patient: Coding Level of Care Code 04687 SUB INP/OBS CARE 2/35MIN Diagnoses Myoclonic jerking G25.3
[2022-09-04] MEDS: levETIRAcetam 250 MG TAB PO SCH (15:22)
[2022-09-04 15:30] LABS: Ferritin 515.5 ng/ml (8-388)
--- NOTE | 2022-09-04 18:35 | Hospitalist Progress Note ---
Date of Service September 04, 2022 Assessment & Plan (1) Leg weakness: Plan: bilateral legs resolved also had b/l arm weakness prior to admission and/or earlier in the stay but the arms remain wnl extensive w/u - CT head, CT cervical spine, CT thoracic spine, CT lumbar spine without spinal cord abnormalities/stenosis/impingement and CT head without ICH/acute CVA/etc CPK, B12, Lyme - normal or negative sed rate/crp minimally elevated -- doubt any inflammatory process present causing weakness no spinal cord level to suggest transverse myelitis patellar reflexes are intact arguing against GBS no infectious process present causing weakness appreciate neuro consult no further imaging recommended he felt that deconditioning played a role in weakness as well can't rule out that recently low calcium contributed to the weakness cont PT/OT likely to [facility] rehab early this coming week (2) History of cerebral aneurysm repair: Plan: 08/2012 - [facility] s/p clipping aneurysm was L MCA frontotemporal encephalomalacia on left noted on CT head this admission no ICH on CT head this admission either previous CTA head at [facility] - 2019 - stable L MCA clips; 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 noted by the family's report he likely has had CTAs head/neck at [facility] more recently see #1 above we received information from [place] regarding the clip - it appears it is MR compatible if he ever needed MR imaging (3) Myoclonic jerking: Plan: recent Fe studies did not show iron deficiency mag and K wnl calcium had been mildly low at admission but resolved ammonia level wnl the jerking does not look like seizure activity appreciate neurology consultation today from Dr Fletcher he advised using keppra 250mg daily in koffi of gabapentin may work better for the jerks finally, was coreg masking an essential tremor and now that coreg has been d/c his symptoms are worse??? (4) Bradycardia: Plan: Noted on admission to have HR 30s Now resolved with stopping his coreg remains on amiodarone without any further bradycardia appreciate cardiology assistance (5) End-stage renal disease on peritoneal dialysis: Plan: On nightly peritoneal dialysis appreciate recs from Dr Cordon - [facility] Nephrology Defer calcium/phos management to Dr Cordon noted -- dose adjustments in calcitriol and phoslo calcium improved/normalized while here (6) COPD (chronic obstructive pulmonary disease): Plan: no exacerbation at this time cont usual maintenance inhalers (7) PAF (paroxysmal atrial fibrillation): Plan: Not on chronic anticoagulation due to history of ICH from aneurysm (2012). Cont amiodarone to maintain NSR. Only d/c amiodarone if he develops clinically significant bradycardia despite holding Coreg. (8) HTN (hypertension): Plan: Controlled with use of amlodipine in koffi of coreg. 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 Noted the change in calcium acetate dose as recommended by Dr Cordon. Plan daughter updated in person today re: change in meds for myoclonic jerkings dispo - rehab post-d/c Admission and Anticipated Discharge Date Admission Date: August 29, 2022 Subjective tele - NSR, no bradycardia feels good no muscle weakness twitches/jerks much better today eating well no new complaints Review of Systems Review of Systems: gen - good energy, feels good cv - no cp, no orthopnea pulm - no dyspnea or VAZQUEZ; occasional cough GI - no pain/N/V Physical Exam Physical Exam: gen - NAD, no myoclonic jerks seen during my visit mouth - MMM, no lesions neck - no JVD heart - RRR, s1 s2, 1/6 SEB LSB lungs - mild exp wheezing b/l - scattered - no change from prior exams; no rales abd - soft NT ND BS+; PD catheter hooked up to his PD machine ext - no edema, pulses 2+ b/l neuro - strength b/l arms 5/5; b/l hip flexion remains 5/5; 5/5 strength b/l feet/ankles - no change psych - a/o x 3 Results & Data Results & Data Vital Signs (Past 12 Hours) Vital Signs Temp Pulse Resp BP Pulse Ox O2 Del Method 09/04/22 18:06 36.6 C 79 18 161/86 H 09/04/22 15:46 36.6 C 79 18 161/86 H 91 Room Air 09/04/22 15:41 Room Air 09/04/22 11:41 36.4 C L 79 18 146/78 H 93 Room Air 09/04/22 08:13 36.3 C L 81 18 142/77 H 93 Room Air 09/04/22 07:25 36.5 C 81 18 Laboratory Results Laboratory Results - last 24 hr 09/04/22 09/04/22 09/04/22 05:43 05:43 07:09 Hgb 11.5 L Hct 35.1 L Sodium 135 L Potassium 4.0 Chloride 98 Carbon Dioxide 23 Anion Gap 14 H BUN 74 H Creatinine 9.82 H* D Est Cr Clr Drug Dosing 7.5 Est GFR ( Amer) 5.5 Est GFR (Non-Af Amer) 4.7 BUN/Creatinine Ratio 7.5 L Glucose 105 H Calcium 8.9 Phosphorus 5.5 H Iron 92 TIBC 212 L Unsaturated IBC 120 L Transferrin % Sat 43 Ferritin 515.5 H Ammonia 35.0 Albumin 3.2 L PG Care Time/CCT Total # of Minutes Spent Total Time Spent with Patient: Total time spent is greater than 50% in coordination of care (as documented) at patient's floor/unit and/or counseling patient: Coding Level of Care Code 51561 SUB INP/OBS CARE 2/35MIN Diagnoses Leg weakness R29.898 History of cerebral aneurysm repair Z98.890; Z86.79 Myoclonic jerking G25.3 Bradycardia R00.1 End-stage renal disease on peritoneal dialysis N18.6; Z99.2 COPD (chronic obstructive pulmonary disease) J44.9 COPD type: unspecified COPD PAF (paroxysmal atrial fibrillation) I48.0 HTN (hypertension) I10 Hypertension type: unspecified Alzheimer disease G30.9; F02.80 Secondary hyperparathyroidism (of renal origin) N25.81 (6) COPD (chronic obstructive pulmonary disease) COPD type: unspecified COPD Qualified Code(s): J44.9 - Chronic obstructive pulmonary disease, unspecified (8) HTN (hypertension) Hypertension type: unspecified Qualified Code(s): I10 - Essential (primary) hypertension
[2022-09-05] MEDS: DOCUSATE SODIUM 100 MG CAP PO SCH ×2 (08:21→20:45)
[2022-09-05] MEDS: UMECLIDINIUM/VILANTEROL 62.5/25MCG 7 PUFFS/INHALER INH SCH (08:21)
[2022-09-05] MEDS: levETIRAcetam 250 MG TAB PO SCH (08:21)
[2022-09-05] MEDS: amLODIPine BESYLATE 5 MG TAB PO SCH (08:22)
[2022-09-05] MEDS: AMIODARONE 200 MG TAB PO SCH (08:22)
[2022-09-05] MEDS: guaiFENesin 600 MG TABCR PO SCH ×2 (08:22→20:45)
[2022-09-05] MEDS: CALCIUM ACETATE 667 MG CAP/TAB PO SCH ×3 (08:22→18:20)
[2022-09-05] MEDS: CALCITRIOL 0.25 MCG CAPSULE PO SCH (08:22)
[2022-09-05] MEDS: POLYETHYLENE (MIRALAX) 17 GM PACK PO SCH ×2 (08:27→20:45)
--- NOTE | 2022-09-05 09:17 | Nephrology Progress Note ---
Date of Service September 05, 2022 Assessment & Plan (1) End-stage renal disease on peritoneal dialysis: Plan: * Volume status and electrolyte balance are acceptable this morning * No complications w/ NCCPD therapy overnight. 1.3 L UF obtained * Outpatient NCCPD Rx: 5 exchanges with 80 minute dwell. 2.5.%/1.5% split bath. EDW 74 kg * Will reorder NCCPD tonight using 1.5% Delflex. No change to current prescription (2) Bradycardia: Plan: * Corrected following discontinuation of Carvedilol * Patient remains on Amiodarone for management of atrial fibrillation/flutter (3) Secondary hyperparathyroidism (of renal origin): Plan: * Continue Calcitriol 1.25 daily * Sensipar is not available on hospital formulary * Continue Phoslo 3 tab QAC while inpatient. Resume Auryxia when discharged (4) Anemia: Plan: * Hgb is acceptable. No acute indication for PATRICK therapy Admission and Anticipated Discharge Date Admission Date: August 29, 2022 Subjective Mr. Redmond was evaluated in his hospital room this morning. He reports no complications w/ PD therapy. Effluent is clear. Net 1300 cc UF obtained overnight. No abdominal discomfort or dyspnea Review of Systems Constitutional: no fever Eyes: no problem reported Ear, Nose, Mouth, Throat: no problem reported Respiratory: no problem reported Cardiovascular: no chest pain Physical Exam Constitutional: not in distress Eyes: PERRL, conjunctivae normal, anicteric sclerae ENMT: external ear and nose normal, oropharynx normal Neck: trachea midline, no thyromegaly Respiratory: normal respiratory effort, lungs clear to auscultation Cardiovascular: RRR, no murmur, no edema Gastrointestinal (Abdomen): normal bowel sounds, soft, nontender, no hepatosplenomegaly PD exit site w/ clean, dry dressing applied. PD catheter is capped and appears intact Neurologic: awake; not confused Speech / Cognition: normal speech Results & Data Vital Signs (Past 12 Hours) Vital Signs Temp Pulse Pulse Pulse Resp BP Pulse Ox 09/05/22 07:00 82 09/05/22 08:28 36.8 C 73 18 135/81 95 09/05/22 04:00 36.8 C 76 18 148/80 H 94 09/04/22 23:00 84 09/04/22 23:32 36.5 C 88 18 148/86 H 93 O2 Del Method 09/05/22 07:00 09/05/22 08:28 Room Air 09/05/22 04:00 Room Air 09/04/22 23:00 09/04/22 23:32 Room Air Laboratory Results Laboratory Tests 09/05/22 09/05/22 09:32 09:32 WBC 6.73 Hgb 11.8 L Hct 36.4 L Plt Count 219 Sodium 136 Potassium 4.2 Chloride 98 Carbon Dioxide 25 BUN 80 H Creatinine 10.14 H* D Glucose 126 H Calcium 9.1 PG Care Time/CCT Total # of Minutes Spent Total Time Spent with Patient: Total time spent is greater than 50% in coordination of care (as documented) at patient's floor/unit and/or counseling patient: Coding Level of Care Code 79339 SUB INP/OBS CARE 3/50MIN Diagnoses End-stage renal disease on peritoneal dialysis N18.6; Z99.2 Bradycardia R00.1 Secondary hyperparathyroidism (of renal origin) N25.81 Anemia D64.9 Anemia type: unspecified type (4) Anemia Anemia type: unspecified type Qualified Code(s): D64.9 - Anemia, unspecified
[2022-09-05 10:05] LABS: Hematocrit (blood only) 36.4 % (42.0-52.0); Hemoglobin 11.8 g/dl (14.0-18.0); Mean Corpuscular Hemoglobin 29.4 pg (25.0-34.0); Mean Corpuscular Hgb Conc 32.4 g/dL (32.0-36.0); Mean Corpuscular Volume 90.5 fL (80.0-100.0); Mean Platelet Volume 10.8 fL (9.4-12.4); Platelet Count 219 K/uL (130-400); RDW Coefficient of Variation 14.7 % (11.5-14.5); RDW Standard Deviation 49.1 fL (36.4-46.3); Red Blood Count 4.02 M/uL (4.70-6.10); White Blood Count 6.73 K/ul (4.8-10.8)
[2022-09-05 10:31] LABS: Calcium 9.1 mg/dl (8.5-10.1); Potassium 4.2 mmol/L (3.5-5.1)
[2022-09-05 10:38] LABS: BUN Creatinine Ratio 7.9 (10-20); Creatinine Clr Calc Pharmacy 7.2 ml/min; Est GFR (African American) 5.3 ml/min; Est GFR (Non-African American) 4.5 ml/min
--- NOTE | 2022-09-05 20:16 | Hospitalist Progress Note ---
Date of Service September 05, 2022 Assessment & Plan (1) Leg weakness: Plan: bilateral legs --resolved also had b/l arm weakness prior to admission and/or earlier in the stay -- resolved extensive w/u - CT head, CT cervical spine, CT thoracic spine, CT lumbar spine without spinal cord abnormalities/stenosis/impingement and CT head without ICH/acute CVA/etc CPK, B12, Lyme - normal or negative sed rate/crp minimally elevated no spinal cord level to suggest transverse myelitis patellar reflexes intact arguing against GBS no infectious process present causing weakness recent low calcium may have contributed to the weakness cont PT/OT PT today stated he can likely return home - walked 250 feet x 2, performed all exercises independently, etc (2) History of cerebral aneurysm repair: Plan: 08/2012 - [facility] s/p clipping aneurysm was L MCA frontotemporal encephalomalacia on left noted on CT head this admission no ICH on CT head this admission either previous CTA head at [facility] - 2019 - stable L MCA clips; 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 noted by the family's report he likely has had CTAs head/neck at [facility] more recently see #1 above we received information from [place] regarding the clip - it appears it is MR compatible if he ever needed MR imaging (3) Myoclonic jerking: Plan: recent Fe studies did not show iron deficiency mag and K wnl calcium had been mildly low at admission but resolved ammonia level wnl the jerking does not look like seizure activity appreciate neurology consultation from Dr Fletcher he advised using keppra 250mg daily in koffi of gabapentin this has worked well -- jerks are fully resolved and he is tolerating the keppra w/o side effects finally, was coreg masking an essential tremor and now that coreg has been d/c his symptoms are worse??? (4) Bradycardia: Plan: Noted on admission to have HR 30s Resolved with stopping his coreg remains on amiodarone without any further bradycardia appreciate cardiology assistance (5) End-stage renal disease on peritoneal dialysis: Plan: On nightly peritoneal dialysis appreciate recs from Dr Cordon and Dr Underwood - [facility] Nephrology Defer calcium/phos management to nephrology calcium improved/normalized while here (6) COPD (chronic obstructive pulmonary disease): Plan: no exacerbation at this time cont usual maintenance inhalers (7) PAF (paroxysmal atrial fibrillation): Plan: Not on chronic anticoagulation due to history of ICH from aneurysm (2012). Cont amiodarone to maintain NSR. (8) HTN (hypertension): Plan: Controlled with use of amlodipine in koffi of coreg. 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 Noted the change in calcium acetate dose as recommended by nephrology. Plan daughter updated in person yesterday will ask OT to re-eval tomorrow on Wednesday if OT feels he can return home we may be able to d/c him home rather than having to go to rehab Admission and Anticipated Discharge Date Admission Date: August 29, 2022 Subjective tele overnight - NSR; no sinus cony he "feels great" with PT today walked 250 feet x 2; PT feels he can return home rather than having to attend rehab has not had OT in a couple of days NO LEG weakness NO myoclonic jerks eating well sleeping ok mild wheezing but no significant change from baseline COPD symptoms anxious to go home Review of Systems Review of Systems: gen - no fevers ; no excess sedation from keppra cv - no cp GI - no abd pain, nausea or emesis pulm - no major cough Physical Exam Physical Exam: gen - NAD, no myoclonic jerks seen, looks great mouth - MMM, no lesions neck - no JVD heart - RRR, s1 s2 lungs - mild exp wheezing b/l - scattered - no change from prior exams; no rales ; no increased work of breathing abd - soft NT ND BS+ ext - no edema, pulses 2+ b/l neuro - b/l hip flexion remains 5/5; 5/5 strength b/l feet/ankles psych - a/o x 3 Results & Data Results & Data Vital Signs (Past 12 Hours) Vital Signs Temp Pulse Pulse Resp BP Pulse Ox O2 Del Method 09/05/22 19:46 36.8 C 90 18 149/88 H 93 Room Air 09/05/22 16:57 36.8 C 81 20 146/71 H 92 Room Air 09/05/22 13:15 36.4 C L 76 20 138/77 93 Room Air 09/05/22 08:28 36.8 C 73 18 09/05/22 08:28 36.8 C 73 18 135/81 95 Room Air Laboratory Results Laboratory Results - last 24 hr 09/05/22 09/05/22 09:32 09:32 WBC 6.73 RBC 4.02 L Hgb 11.8 L Hct 36.4 L MCV 90.5 MCH 29.4 MCHC 32.4 RDW Std Deviation 49.1 H RDW Coeff of Giovana 14.7 H Plt Count 219 MPV 10.8 Sodium 136 Potassium 4.2 Chloride 98 Carbon Dioxide 25 Anion Gap 13 H BUN 80 H Creatinine 10.14 H* D Est Cr Clr Drug Dosing 7.2 Est GFR ( Amer) 5.3 Est GFR (Non-Af Amer) 4.5 BUN/Creatinine Ratio 7.9 L Glucose 126 H Calcium 9.1 PG Care Time/CCT Total # of Minutes Spent Total Time Spent with Patient: Total time spent is greater than 50% in coordination of care (as documented) at patient's floor/unit and/or counseling patient: Coding Level of Care Code 60006 SUB INP/OBS CARE 07/15MIN Diagnoses Leg weakness R29.898 History of cerebral aneurysm repair Z98.890; Z86.79 Myoclonic jerking G25.3 Bradycardia R00.1 End-stage renal disease on peritoneal dialysis N18.6; Z99.2 COPD (chronic obstructive pulmonary disease) J44.9 COPD type: unspecified COPD PAF (paroxysmal atrial fibrillation) I48.0 HTN (hypertension) I10 Hypertension type: unspecified Alzheimer disease G30.9; F02.80 Secondary hyperparathyroidism (of renal origin) N25.81 (6) COPD (chronic obstructive pulmonary disease) COPD type: unspecified COPD Qualified Code(s): J44.9 - Chronic obstructive pulmonary disease, unspecified (8) HTN (hypertension) Hypertension type: unspecified Qualified Code(s): I10 - Essential (primary) hypertension
[2022-09-06 07:51] LABS: BUN Creatinine Ratio 8.5 (10-20); Calcium 9.8 mg/dl (8.5-10.1); Creatinine Clr Calc Pharmacy 7.8 ml/min; Est GFR (African American) 5.7 ml/min; Potassium 4.1 mmol/L (3.5-5.1)
[2022-09-06] MEDS: DOCUSATE SODIUM 100 MG CAP PO SCH (09:00)
[2022-09-06] MEDS: UMECLIDINIUM/VILANTEROL 62.5/25MCG 7 PUFFS/INHALER INH SCH (09:00)
[2022-09-06] MEDS: guaiFENesin 600 MG TABCR PO SCH (09:00)
[2022-09-06] MEDS: levETIRAcetam 250 MG TAB PO SCH (09:01)
[2022-09-06] MEDS: CALCITRIOL 0.25 MCG CAPSULE PO SCH (09:01)
[2022-09-06] MEDS: CALCIUM ACETATE 667 MG CAP/TAB PO SCH ×3 (09:01→18:12)
[2022-09-06] MEDS: amLODIPine BESYLATE 5 MG TAB PO SCH (09:01)
[2022-09-06] MEDS: AMIODARONE 200 MG TAB PO SCH (09:02)
[2022-09-06] MEDS: POLYETHYLENE (MIRALAX) 17 GM PACK PO SCH (09:02)
--- NOTE | 2022-09-06 10:01 | Nephrology Progress Note ---
Date of Service September 06, 2022 Assessment & Plan (1) End-stage renal disease on peritoneal dialysis: Plan: * Volume status and electrolyte balance are acceptable this morning * No complications w/ NCCPD therapy overnight * Outpatient NCCPD Rx: 5 exchanges, 80 minute dwell, 2.5%/1.5% split dialysate, EDW 74 kg * Will reorder NCCPD tonight using 1.5% Delflex. No change to current prescription (2) Bradycardia: Plan: * Corrected following discontinuation of Carvedilol * Patient remains on Amiodarone for management of atrial fibrillation/flutter (3) Secondary hyperparathyroidism (of renal origin): Plan: * Serum Ca trending up rapidly. Reduce Calcitriol to 0.5 mcg daily during hospitalization * Sensipar is not available on hospital formulary * Will need to resume Calcitriol 1 mcg po daily once Sensipar 30 mg daily is restarted as outpatient * Continue Phoslo 3 tab QAC while inpatient. Resume Auryxia when discharged (4) Anemia: Plan: * Hgb is acceptable. No acute indication for PATRICK therapy Admission and Anticipated Discharge Date Admission Date: August 29, 2022 Subjective Mr. Redmond was evaluated in his hospital room this morning. He reports no complications w/ PD therapy. Effluent is clear. No abdominal discomfort or dyspnea Review of Systems Constitutional: no fever Eyes: no problem reported Ear, Nose, Mouth, Throat: no problem reported Respiratory: no problem reported Cardiovascular: no chest pain Physical Exam Constitutional: not in distress Eyes: PERRL, conjunctivae normal, anicteric sclerae ENMT: external ear and nose normal, oropharynx normal Neck: trachea midline, no thyromegaly Respiratory: normal respiratory effort, lungs clear to auscultation Cardiovascular: RRR, no murmur, no edema Gastrointestinal (Abdomen): normal bowel sounds, soft, nontender, no hepatosplenomegaly Neurologic: awake; not confused Speech / Cognition: normal speech Results & Data Vital Signs (Past 12 Hours) Vital Signs Temp Pulse Pulse Pulse Resp BP Pulse Ox 09/06/22 08:42 36.4 C L 87 19 148/82 H 93 09/06/22 07:00 75 09/06/22 03:57 36.8 C 88 17 162/82 H 92 09/05/22 23:00 77 09/05/22 23:14 36.5 C 81 18 160/88 H 95 O2 Del Method 09/06/22 08:42 Room Air 09/06/22 07:00 09/06/22 03:57 Room Air 09/05/22 23:00 09/05/22 23:14 Room Air Laboratory Results Laboratory Tests 09/04/22 09/06/22 05:43 06:55 Sodium 136 Potassium 4.1 Chloride 98 Carbon Dioxide 26 BUN 80 H Creatinine 9.45 H* D Glucose 107 H Calcium 9.8 Transferrin % Sat 43 Ferritin 515.5 H PG Care Time/CCT Total # of Minutes Spent Total Time Spent with Patient: Total time spent is greater than 50% in coordination of care (as documented) at patient's floor/unit and/or counseling patient: Coding Level of Care Code 36141 SUB INP/OBS CARE 3/50MIN Diagnoses End-stage renal disease on peritoneal dialysis N18.6; Z99.2 Bradycardia R00.1 Secondary hyperparathyroidism (of renal origin) N25.81 Anemia D64.9 Anemia type: unspecified type (4) Anemia Anemia type: unspecified type Qualified Code(s): D64.9 - Anemia, unspecified
--- NOTE | 2022-09-06 18:16 | Discharge Summary ---
Date of Service September 06, 2022 Admission HPI Per Admitting Provider 72-year-old male past medical history significant for COPD not on chronic oxygen, ESRD on peritoneal dialysis nightly, history of cerebral aneurysm/hemorrhage, paroxysmal A-fib not on chronic anticoagulation, anemia of chronic disease, dementia presented to the ER for 24-48 hours of bilateral leg>arm weakness, without associated vision changes, dysarthria, dysphagia. He also denies associated sensation of lightheadedness, and did not recently passed out. Denies chest pain, shortness of breath, nausea. In the ER patient was noted to be bradycardic in the 30s, did have pacer pads placed but not initiated, was also given magnesium and calcium gluconate. Heart rate improved to the 50s by the time of my evaluation. Chest x-ray did not show any evidence of acute chest disease. Lab work notable for a hemoglobin of 12.8 (actually significantly higher than previous readings), K4.3, creatinine 12.19 (wide baseline on dialysis), calcium 7.7 with an iCal of 0.92, troponin 128.1, TSH normal. On review of MAR, patient has a prior history of being on metoprolol, however do not see any recent fills for this medication. He is on amiodarone 200 mg daily, and carvedilol 25 mg twice daily. Discharge Exam gen - NAD, no myoclonic jerks seen, looks great mouth - MMM, no lesions neck - no JVD heart - RRR, s1 s2 lungs - mild exp wheezing b/l - scattered - no change from prior exams; no rales ; no increased work of breathing abd - soft NT ND BS+ ext - no edema, pulses 2+ b/l neuro - b/l hip flexion remains 5/5; 5/5 strength b/l feet/ankles psych - a/o x 3 Discharge Data Allergies Allergy/AdvReac Type Severity Reaction Status Date / Time lisinopril AdvReac Mild COUGH Verified 08/29/22 17:36 Consultations 08/29/22 17:25 ED Decision to Admit Stat 08/29/22 18:11 Consult Nephrology Routine 08/29/22 19:09 Consult Cardiology Routine 09/01/22 16:00 Consult Neurology Routine Ordered Studies 08/29/22 18:38 CT head/brain wo con Stat 08/30/22 11:09 CT lumbar spine wo con Routine 09/01/22 13:17 CT cervical spine wo con Routine CT thoracic spine wo con Routine Hospital Course (1) Leg weakness: bilateral legs --resolved also had b/l arm weakness prior to admission and/or earlier in the stay -- resolved extensive w/u - CT head, CT cervical spine, CT thoracic spine, CT lumbar spine without spinal cord abnormalities/stenosis/impingement and CT head without ICH/acute CVA/etc CPK, B12, Lyme - normal or negative sed rate/crp minimally elevated no spinal cord level to suggest transverse myelitis patellar reflexes intact arguing against GBS no infectious process present causing weakness recent low calcium may have contributed to the weakness cont PT/OT PT today stated he can likely return home - walked 250 feet x 2, performed all exercises independently, etc (2) History of cerebral aneurysm repair: 08/2012 - [facility] s/p clipping aneurysm was L MCA frontotemporal encephalomalacia on left noted on CT head this admission no ICH on CT head this admission either previous CTA head at [facility] - 2019 - stable L MCA clips; 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 noted by the family's report he likely has had CTAs head/neck at [facility] more recently see #1 above we received information from [place] regarding the clip - it appears it is MR compatible if he ever needed MR imaging (3) Myoclonic jerking: recent Fe studies did not show iron deficiency mag and K wnl calcium had been mildly low at admission but resolved ammonia level wnl the jerking does not look like seizure activity appreciate neurology consultation from Dr Fletcher he advised using keppra 250mg daily in koffi of gabapentin this has worked well -- jerks are fully resolved and he is tolerating the keppra w/o side effects finally, was coreg masking an essential tremor and now that coreg has been d/c his symptoms are worse??? (4) Bradycardia: Noted on admission to have HR 30s Resolved with stopping his coreg remains on amiodarone without any further bradycardia appreciate cardiology assistance (5) End-stage renal disease on peritoneal dialysis: On nightly peritoneal dialysis appreciate recs from Dr Cordon and Dr Underwood - [facility] Nephrology Defer calcium/phos management to nephrology calcium improved/normalized while here (6) COPD (chronic obstructive pulmonary disease): no exacerbation at this time cont usual maintenance inhalers (7) PAF (paroxysmal atrial fibrillation): Not on chronic anticoagulation due to history of ICH from aneurysm (2013). Cont amiodarone to maintain NSR. (8) HTN (hypertension): Controlled with use of amlodipine in koffi of coreg. 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 Noted the change in calcium acetate dose as recommended by nephrology. Plan daughter updated in person yesterday will ask OT to re-eval tomorrow on Wednesday if OT feels he can return home we may be able to d/c him home rather than having to go to rehab Discharge Plan Discharge Items Patient Disposition: Home - Self-Care Reason For Visit: Weakness Discharge Diagnosis: 1. weakness - likely combination of bradycardia (low heart rate) and hypocalcemia (low calcium level) - resolved 2. hypocalcemia - resolved 3. bradycardia - resolved 4. benign myoclonic jerks of arms/legs - improved significantly 5. pulmonary nodules of lungs - follow-up needed for these 6. end-stage renal disease on peritoneal dialysis Activity: Resume your previous activity Non-emergency contact: Primary Care Provider and Open Developer Operator Call non-emergency contact if: you have any medication questions and your symptoms worsen Follow-up/Referrals: [facility] Nephrology [Provider Group] (see one of the providers at [facility] Nep hrology in 1 week) Rian Woods MD [Physician] - (please follow-up with Dr Woods or one of his pulmonary partners at [facility] Pulmonary office for pulmonary nodules & COPD (last seen in 2020)) [address] M.D. [Primary Care Provider] - Diet: Dialysis Renal Fluids: 1500ml (6 cups) Diet Comment: avoid high phosphorus containing foods (see handout) Addtl Attending Provider Instructions: Mr Redmond, You were admitted to [facility] due to significant weakness of your arms & legs - particularly your legs - as well as jerks/twitches of your limbs. Your weakness gradually improved while here with use of PT/OT, correction of low calcium levels, and treatment of your myoclonic jerks. A series of CT scans were taken of your head, neck, middle portion of your back, and your low back. These CTs did not show anything that would have caused your weakness of your legs. You were seen by neurology and it was felt that the weakness may have been a combination of the low heart rate as well as the low calcium levels. Both issues resolved while here. Cardiology recommended discontinuation of your carvedilol medication. Once the carvedilol was stopped your heart rate ret We ultimately substituted a medication called "keppra" (levetiracetam) for your gabapentin. The keppra worked very well at controlling your myoclonic jerks/twitches. You received dialysis assistance by the [facility] nephrology team while here. They also assisted in normalizing your calcium levels that had been low. PT/OT worked with you and initially there was concern you needed to go to rehab after discharge. However, you are now strong and walking well and can return home with your family. Finally, a CT scan during this stay showed nodules in the upper portions of both lungs. These will need to be followed by pulmonary after discharge. We will set you up to see [facility]monary after discharge to address this. Recommendations - 1. keppra (levetiracetam) 250mg once daily to treat myoclonic jerks / muscle twitches. 2. amlodipine 2.5mg once daily for high blood pressure. 3. STOP carvedilol. 4. STOP gabapentin. 5. for calcium and phosphorus management take the following - * Auryxia (ferric citrate) 2 tablets three times daily with meals * calcitriol 1mcg daily * cinacalcet (Sensipar) 30mg daily Your calcium and phosphorus levels will be checked after discharge. I have given you written prescriptions for your the new medications listed above that can be filled at a local pharmacy (while you wait for the [place] pharmacy to send your long-term prescriptions to your home). Return to [facility] if - * your weakness returns * you have worsening shortness of breath * you have chest pains * you have fever over 100 degrees * you have recurrent muscular twitches / myoclonic jerking * any other concerns It was our pleasure to care for you at [facility]! -Dr Kennedy Pending Studies at Discharge: No Stand-Alone Forms: My [facility], Smoking Cessation Medications and DC Order Prescriptions: New amlodipine [Norvasc] 5 mg Tablet 2.5 mg PO QAM Qty: 10 0RF levetiracetam [Keppra] 250 mg Tablet 250 mg PO QAM Qty: 10 0RF Auryxia 210 mg iron tablet 420 mg PO TIDWMEAL Qty: 1 0RF Rx Instructions: administer with a meal amlodipine 2.5 mg tablet 2.5 mg PO DAILY Qty: 30 2RF levetiracetam [Keppra] 250 mg tablet 250 mg PO DAILY Qty: 30 2RF Continued (DME) nebulizer accessories Kit See Rx Instructions .ROUTE .MEDSUPPLY Qty: 1 3RF Rx Instructions: nebulizer kit Stiolto Respimat 2.5-2.5 mcg/actuation mist 2 puff INH QAM Qty: 4 5RF docusate sodium [Colace] 100 mg capsule 400 mg PO BID calcitriol 0.5 mcg capsule 1 mcg PO QAM polyethylene glycol 3350 [Miralax] 17 gram/dose Powder 17 g PO BID amiodarone 200 mg Tablet 200 mg PO DAILY albuterol sulfate [ProAir HFA] 90 mcg/actuation HFA aerosol inhaler 2 inh INH Q6H PRN (Reason: shortness of breath or wheezing) acetaminophen [Tylenol Arthritis] 650 mg Tablet Extended Release 1,300 mg PO Q12H ipratropium-albuterol 0.5 mg-3 mg(2.5 mg base)/3 mL solution for nebulization 3 ml INHALATION QAM epinephrine [EpiPen] 0.3 mg/0.3 mL Auto-Injector 0.3 mg IM Q4H PRN (Reason: as directed) diphenhydramine HCl 50 mg Capsule 50 mg PO HS cinacalcet [Sensipar] 30 mg Tablet 30 mg PO DAILY Mucinex 1,200 mg Tablet Extended Release 12hr 1,200 mg PO BID Discontinued gabapentin 100 mg capsule 100 mg PO Q2D Qty: 0 0RF carvedilol 25 mg Tablet 25 mg PO BID Rx Instructions: must administer with a meal/food Discharge Orders: Discharge Order (Routine); Ordered 09/06/22 Ordered By: Catrachito Tes/Other Patient Handouts: ED Diet for Chronic Kidney Disease Admission Data Admit Date/Time: 08/29/22 17:33 Attending Provider: Catrachito Kennedy Admit Provider: Estefania Yap Primary Care Provider: Mia St Other Providers: Pankaj Cordon ; Estefania Yap ; Rene Ramirez ; [facility] ; Melchor Hernandez Coding Diagnoses Leg weakness R29.898 History of cerebral aneurysm repair Z98.890; Z86.79 Myoclonic jerking G25.3 Bradycardia R00.1 End-stage renal disease on peritoneal dialysis N18.6; Z99.2 COPD (chronic obstructive pulmonary disease) J44.9 COPD type: unspecified COPD PAF (paroxysmal atrial fibrillation) I48.0 HTN (hypertension) I10 Hypertension type: unspecified Alzheimer disease G30.9; F02.80 Secondary hyperparathyroidism (of renal origin) N25.81
[2022-09-07] MEDS ORDERED: CALCITRIOL 0.25 MCG CAPSULE PO SCH ×2 (09:00)
== END 2022-09-06 19:26 | disposition home or self-care (01) | DRG 555 ==
LOC: ED 14:22 → 4W 17:33 → SUATTDRO 17:33 → 4W 18:29

== ENCOUNTER 2022-10-30 19:57 | Inpatient (IN) ==
[2022-10-30 21:31] LABS: Basophils # (auto) 0.11 K/uL (0-0.2); Basophils % (auto) 1.5 %; Eosinophils # (auto) 0.49 K/uL (0-0.50); Eosinophils % (auto) 6.7 %; Hematocrit (blood only) 29.5 % (42.0-52.0); Hemoglobin 9.8 g/dl (14.0-18.0); Immature Granulocytes # (auto) 0.06 K/uL (0.01-0.20); Immature Granulocytes % (auto) 0.8 %; Lymphocytes # (auto) 1.09 K/uL (1.2-3.4); Lymphocytes % (auto) 14.9 %; Mean Corpuscular Hemoglobin 29.6 pg (25.0-34.0); Mean Corpuscular Hgb Conc 33.2 g/dL (32.0-36.0); Mean Corpuscular Volume 89.1 fL (80.0-100.0); Mean Platelet Volume 9.7 fL (9.4-12.4); Monocytes # (auto) 0.74 K/uL (0.11-0.59); Monocytes % (auto) 10.1 %; Neutrophils # (auto) 4.84 K/uL (1.40-6.50); Platelet Count 252 K/uL (130-400); RDW Coefficient of Variation 20.2 % (11.5-14.5); RDW Standard Deviation 65.5 fL (36.4-46.3); Red Blood Count 3.31 M/uL (4.70-6.10); White Blood Count 7.33 K/ul (4.8-10.8)
[2022-10-30 21:48] LABS: Alanine Aminotransferase 7 U/L (7-52); Albumin Globulin Ratio 1.2 (0.9-2); Albumin Level 3.3 gm/dl (3.4-5.0); Alkaline Phosphatase 55 U/L (34-104); Anion Gap 20 (3-11); Aspartate Aminotransferase 8 U/L (13-39); BUN Creatinine Ratio 6.8 (10-20); Bilirubin,Total 0.4 mg/dl (0.2-1.0); Blood Urea Nitrogen 78 mg/dl (6-23); Calcium 8.3 mg/dl (8.6-10.3); Carbon Dioxide 19 mmol/L (21-32); Chloride 97 mmol/L (98-107); Est GFR (African American) 4.5 ml/min; Est GFR (Non-African American) 3.9 ml/min; Globulin 2.8 gm/dl (2.5-4.0); Glucose 82 mg/dl (70-99(Fasting)); Potassium 4.5 mmol/L (3.5-5.1); Sodium 136 mmol/L (136-145); Total Protein 6.1 gm/dl (6.0-8.3); Troponin I High Sensitivity 38.4 pg/ml (0-20)
[2022-10-30 21:55] LABS: Anisocytosis Present; Hypersegmented Neutrophils 1+; Polychromasia 1+
--- NOTE | 2022-10-30 23:03 | CT Scan Report ---
Exam(s): CT HEAD Without Contrast EXAM: CT Head Without Intravenous Contrast CLINICAL HISTORY: Reason for exam: confusion. TECHNIQUE: Axial computed tomography images of the head/brain without intravenous contrast. CTDI is 36.79 mGy and DLP is 702.46 mGy-cm. Automated exposure control was utilized for the study. A dose lowering technique was utilized adhering to the principles of ALARA. COMPARISON: CT head, 08/29/22 FINDINGS: There is evidence of old left frontotemporal craniotomy. There is encephalomalacia involving the anterior left frontal lobe with aneurysm clip suggested in the region of the distal left M1 segment. There is mild ex vacuo enlargement of the frontal horn of the left lateral ventricle. There is stable parenchymal hypodensity along the parafalcine bilateral frontal lobe suggesting old bilateral TRUE territory infarcts. Rosas-white matter differentiation is otherwise maintained. There is no acute intracranial hemorrhage or abnormal extra-axial fluid collection. There is no mass-effect or midline shift. There is no hydrocephalus. Generalized parenchymal volume loss is noted. There is no skull fracture. Sinuses and mastoid air cells are clear. Intracranial atherosclerosis is noted. IMPRESSION: No evidence of acute intracranial process. Electronically signed by: Sae Richardson M.D. 10/30/22 23:01 PM
[2022-10-30 23:15] LABS: Appearance Urine Clear (Clear); Bacteria Urine Automated Negative (Negative); Bilirubin Urine Negative (Negative); Blood Urine Negative (Negative); Cast Urine Automated 0 /lpf (0-5); Color Urine Yellow; Glucose Urine UA Negative (Negative); Ketones Urine Negative (Negative); Leukocyte Esterase Urine Negative (Negative); Nitrite Urine Negative (Negative); Protein Urine 1+ (Negative); RBC Urine Automated 0-4 /hpf (0-4); Specific Gravity Urine 1.019 (1.000-1.030); Urobilinogen Urine Negative (Negative); pH Urine 5.5 (4.5-7.5)
[2022-10-31 00:10] LABS: Adenovirus PCR Not Detected (NotDetected); Bordetella parapertussis PCR Not Detected (NotDetected); Bordetella pertussis PCR Not Detected (NotDetected); Chlamydia pneumoniae PCR Not Detected (NotDetected); Coronavirus 229E PCR Not Detected (NotDetected); Coronavirus CoV-2 (COVID19)PCR Not Detected (NotDetected); Coronavirus HKU1 PCR Not Detected (NotDetected); Coronavirus NL63 PCR Not Detected (NotDetected); Coronavirus OC43PCR Not Detected (NotDetected); Human Metapneumovirus PCR Not Detected (NotDetected); Influenza A PCR Not Detected (NotDetected); Influenza B PCR Not Detected (NotDetected); Mycoplasma pneumoniae PCR Not Detected (NotDetected); Parainfluenza Virus 1 PCR Not Detected (NotDetected); Parainfluenza Virus 2 PCR Not Detected (NotDetected); Parainfluenza Virus 3 PCR Not Detected (NotDetected); Parainfluenza Virus 4 PCR Not Detected (NotDetected); Respiratory Syncytial VirusPCR Not Detected (NotDetected); Rhinovirus/Enterovirus PCR Not Detected (NotDetected)
--- NOTE | 2022-10-31 00:56 | History & Physical Report ---
Date of Service October 31, 2022 Assessment & Plan (1) AMS (altered mental status): (2) End-stage renal disease on peritoneal dialysis: (3) PTSD (post-traumatic stress disorder): (4) Tobacco use disorder: (5) Pulmonary emphysema: (6) Benign prostate hyperplasia: (7) Hx of atrial flutter: (8) Seizure disorder: (9) Ambulatory dysfunction: (10) Intracranial hemorrhage: (11) History of cerebral aneurysm repair: Plan SDAT/intermittent confusion/progressive decline/history of left MCA aneurysm rupture and repair in 2012- Family reports difficulty in being able to care for him at home Will consult sr. social media & mobile manager Does not have any focal issues, but describes lower extremities intermittently feeling weak and not being able to carry his weight, affecting his ambulation Denies any low back pain We will consult PT/OT CT of head negative for acute changes Paroxysmal atrial fibrillation/hypertension- Continue amiodarone 200 mg daily and amlodipine 2.5 mg daily Seizure disorder- Continue Keppra ESRD on peritoneal dialysis- There may be an issue with patient being able to perform dialysis at home Continue Cinacalcet, ferric citrate, calcitriol, Consult nephrology, follows with Dr. Romo COPD- Continue usual inhalers History of Present Illness Chief Complaint: The patient is brought to the emergency department by family due to confusion and intermittent episodes with bilateral lower extremity weakness causing ambulatory dysfunction. Family reports that because of his general decline, his family is having more difficulty caring for him at home. Primary Care Provider: Jennifer Castrejon The patient is a 72-year-old male with a past medical history including ESRD on PD, history of left-sided craniotomy for clipping of a ruptured left MCA bifurcation aneurysm on 09/04/2012, pulmonary nodules, PTSD, tobacco use disorder, pneumonia, COPD, current tobacco user, marijuana user, multifocal pneumonia, metabolic encephalopathy, tremor, polycystic kidney disease adult type, BPH, and progressive general debility. The patient was primarily concerned about progressive lower extremity weakness affecting ambulation, and has been having some progressive issues with confusion and general debilitation. The patient denied any issues with headache, vision change, hearing change, focal weakness in arms or legs. Allergies Allergy/AdvReac Type Severity Reaction Status Date / Time lisinopril AdvReac Mild COUGH Verified 10/31/22 00:40 Home Medications Medication Instructions Recorded Confirmed Type tiotropium 2.5 mcg-olodaterol 2.5 2 puff inhalation QAM #4 grams 02/18/21 10/31/22 Rx mcg/actuation mist for inhalation (Stiolto Respimat) calcitriol 0.5 mcg capsule 1 mcg PO QAM 06/30/21 10/31/22 History polyethylene glycol 3350 17 17 g PO BID 06/30/21 10/31/22 History gram/dose oral powder (Miralax) docusate sodium 100 mg capsule 400 mg PO BID 07/31/21 10/31/22 History (Colace) cinacalcet 30 mg tablet (Sensipar) 30 mg PO DAILY 03/27/22 10/31/22 History guaifenesin 1,200 mg tablet, 1,200 mg PO BID 03/27/22 10/31/22 History extended release 12 hr (Mucinex) acetaminophen 650 mg 1,300 mg PO Q12H 08/29/22 10/31/22 History tablet,extended release albuterol sulfate 90 mcg/actuation 2 inh inhalation Q6H PRN shortness 08/29/22 10/31/22 History aerosol inhaler (ProAir HFA) of breath or wheezing amiodarone 200 mg tablet 200 mg PO DAILY 08/29/22 10/31/22 History epinephrine 0.3 mg/0.3 mL 0.3 mg IM Q4H PRN as directed 08/29/22 10/31/22 History injection, auto-injector (EpiPen) ipratropium 0.5 mg-albuterol 3 mg 3 ml inhalation BID 08/29/22 10/31/22 History (2.5 mg base)/3 mL nebulization soln amlodipine 2.5 mg tablet 2.5 mg PO DAILY #30 tabs 09/06/22 10/31/22 Rx ferric citrate 210 mg iron tablet 420 mg PO TIDWMEAL #1 tab 09/06/22 10/31/22 Rx (Auryxia) levetiracetam 250 mg tablet 250 mg PO QAM #10 tabs 09/06/22 10/31/22 Rx (Keppra) diphenhydramine HCl 25 mg capsule 50 mg PO DAILY 10/31/22 10/31/22 History (Benadryl) Past Med/Surg History Medical History (Updated 10/31/22 @ 05:03 by Solomon Espinosa MD) Alzheimer disease Anemia Benign neoplasm of skin of nose removed once Benign prostate hyperplasia Bradycardia CCPD (continuous cycling peritoneal dialysis) status port in place left abdomen--dialysis daily at home; second port that has been placed for dialysis. Chronic obstructive pulmonary disease inhaler/nebulizer daily COPD (chronic obstructive pulmonary disease) Diverticulosis End-stage renal disease on peritoneal dialysis Gout hx Hemorrhoids "not currently flared" History of marijuana use daily HTN (hypertension) Hx of atrial flutter 06/2021, hospitalized w/pneumonia for almost 3 weeks; dx atrial flutter- currently amiodarone; f/u dr. adkins, mo Hypercalcemia Hypertension Intracranial hemorrhage 2012 Low back pain Myoclonic jerking On home oxygen therapy 2L N/C at hs PAF (paroxysmal atrial fibrillation) Paroxysmal atrial flutter Polycystic kidney disease, adult type (09/03/12) Ruptured middle cerebral artery aneurysm Secondary hyperparathyroidism (of renal origin) Secondary hyperparathyroidism of renal origin Seizure disorder Tremor of both hands Vitamin D deficiency Surgical History (Updated 10/31/22 @ 05:03 by Solomon Espinosa MD) History of cerebral aneurysm repair 2012 [facility]--clip in place; clip IS MRI COMPATIBLE History of colonoscopy History of tooth extraction all teeth Family History Other No family history of adverse response to anesthesia Denies family history of Myocardial infarction Social History Smoking Status: Former smoker Second Hand Exposure: No; Do You Dip or Chew Tobacco: No; Hx Alcohol Use: No Hx Substance Use: No Preferred Language: [place] Island[place] Communication Ability: Impaired Communication Ability Comment: pt can sign own consent Chief Substation Operator Required: No Beliefs That Will Affect Care: None marital status: Single Current Living Situation: Family Current Living Situation Comment: lives w/ grandaughter, her & kids How many Children do You have: 1 Feels Safe at Home: Yes Assistive Devices: None Review of Systems Review of Systems: The patient denies chest pain, palpitations, shortness of breath, dyspnea on exertion, cough, lower extremity swelling, sore throat, fevers, chills, sweats, nausea, vomiting, diarrhea , constipation, abdominal pain, pelvic pain, blood in urine or stool, dysuria, urinary frequency or urgency, lightheadedness, dizziness, headache loss of consciousness, rash, abnormal bruising or bleeding, focal or generalized weakness, numbness or tingling in arms, generalized arth ralgias or myalgias, back or neck pain, or night sweats. The review of systems is otherwise negative other than for that already noted above, and at least 10 systems have been reviewed. Physical Exam Physical Exam: The patient is awake, alert and oriented 3, well developed and well nourished, normocephalic and atraumatic, lying in bed and in no acute distress. HEENT--PERRL, EOMI, mucous membranes and oropharynx normal. Neck--supple. No JVD. No bruits. Thyroid normal, trachea midline, no adenopathy . Heart--normal S1 and S2. No murmurs, rubs or gallops. Lungs--clear bilaterally, no respiratory distress, no accessory muscle use. Abdomen--normal bowel sounds and soft. Nontender. Nondistended, no hernias or masses, no organomegaly. Extremities--no cyanosis or clubbing. No edema. There are good distal pulses b/l. Dermatologic--normal skin turgor, normal color, no abnormal lymph nodes, no rash. Neurologic--cranial nerves II through XII grossly intact. Rheumatologic--normal range of motion. Psychiatric--normal affect. Results & Data Results & Data Vital Signs (Past 12 Hours) Vital Signs Pulse Pulse Resp BP Pulse Ox O2 Del Method 10/30/22 23:07 79 18 167/87 H 98 Room Air 10/30/22 21:00 75 Laboratory Results Laboratory Results WBC 7.33 K/ul (4.8-10.8) 10/30/22 20:45 RBC 3.31 M/uL (4.70-6.10) L 10/30/22 20:45 Hgb 9.8 g/dl (14.0-18.0) L 10/30/22 20:45 Hct 29.5 % (42.0-52.0) L 10/30/22 20:45 MCV 89.1 fL (80.0-100.0) 10/30/22 20:45 MCH 29.6 pg (25.0-34.0) 10/30/22 20:45 MCHC 33.2 g/dL (32.0-36.0) 10/30/22 20:45 RDW Std Deviation 65.5 fL (36.4-46.3) H 10/30/22 20:45 RDW Coeff of Giovana 20.2 % (11.5-14.5) H 10/30/22 20:45 Plt Count 252 K/uL (130-400) 10/30/22 20:45 MPV 9.7 fL (9.4-12.4) 10/30/22 20:45 Immature Gran % (Auto) 0.8 % 10/30/22 20:45 Neut % (Auto) 66.0 % 10/30/22 20:45 Lymph % (Auto) 14.9 % 10/30/22 20:45 [place] % (Auto) 10.1 % 10/30/22 20:45 Eos % (Auto) 6.7 % 10/30/22 20:45 Baso % (Auto) 1.5 % 10/30/22 20:45 Neut # (Auto) 4.84 K/uL (1.40-6.50) 10/30/22 20:45 Lymph # (Auto) 1.09 K/uL (1.2-3.4) L 10/30/22 20:45 [place] # (Auto) 0.74 K/uL (0.11-0.59) H 10/30/22 20:45 Eos # (Auto) 0.49 K/uL (0-0.50) 10/30/22 20:45 Baso # (Auto) 0.11 K/uL (0-0.2) 10/30/22 20:45 Immature Gran # (Auto) 0.06 K/uL (0.01-0.20) 10/30/22 20:45 Hypersegmented Neuts 1+ 10/30/22 20:45 Polychromasia 1+ 10/30/22 20:45 Anisocytosis Present 10/30/22 20:45 ESR 69 mm/hr (0-20) H 10/30/22 22:37 Sodium 136 mmol/L (136-145) 10/30/22 20:45 Potassium 4.5 mmol/L (3.5-5.1) 10/30/22 20:45 Chloride 97 mmol/L (98-107) L 10/30/22 20:45 Carbon Dioxide 19 mmol/L (21-32) L 10/30/22 20:45 Anion Gap 20 (3-11) H 10/30/22 20:45 BUN 78 mg/dl (6-23) H 10/30/22 20:45 Creatinine 11.54 mg/dl (0.6-1.4) H* 10/30/22 20:45 Est Cr Clr Drug Dosing Not Reportable 10/30/22 20:45 Est GFR ( Amer) 4.5 ml/min 10/30/22 20:45 Est GFR (Non-Af Amer) 3.9 ml/min 10/30/22 20:45 BUN/Creatinine Ratio 6.8 (10-20) L 10/30/22 20:45 Glucose 82 mg/dl (70-99(Fasting)) 10/30/22 20:45 Lactate 1.0 mmol/L (0.4-2.0) 10/30/22 22:37 Calcium 8.3 mg/dl (8.6-10.3) L 10/30/22 20:45 Magnesium 2.0 mg/dl (1.7-2.4) 10/30/22 20:45 Total Bilirubin 0.4 mg/dl (0.2-1.0) 10/30/22 20:45 AST 8 U/L (13-39) L 10/30/22 20:45 ALT 7 U/L (7-52) 10/30/22 20:45 Alkaline Phosphatase 55 U/L (34-104) 10/30/22 20:45 Troponin I High Sens 38.4 pg/ml (0-20) H 10/30/22 20:45 Total Protein 6.1 gm/dl (6.0-8.3) 10/30/22 20:45 Albumin 3.3 gm/dl (3.4-5.0) L 10/30/22 20:45 Globulin 2.8 gm/dl (2.5-4.0) 10/30/22 20:45 Albumin/Globulin Ratio 1.2 (0.9-2) 10/30/22 20:45 TSH 2.124 uIu/ml (0.300-4.500) 10/30/22 20:45 Urine Color Yellow 10/30/22 21:22 Urine Appearance Clear (Clear) 10/30/22 21:22 Urine pH 5.5 (4.5-7.5) 10/30/22 21: Ur Specific [place] 1.019 (1.000-1.030) 10/30/22 21: Urine Protein 1+ (Negative) H 10/30/22 21:22 Urine Glucose (UA) Negative (Negative) 10/30/22 21: Urine Ketones Negative (Negative) 10/30/22 21: Urine Blood Negative (Negative) 10/30/22 21: Urine Nitrite Negative (Negative) 10/30/22 21: Urine Bilirubin Negative (Negative) 10/30/22 21: Urine Urobilinogen Negative (Negative) 10/30/22 21: Ur Leukocyte Esterase Negative (Negative) 10/30/22 21: Urine WBC (Auto) 1-5 /hpf (0-5) 10/30/22 21: Urine RBC (Auto) 0-4 /hpf (0-4) 10/30/22 21:22 U Hyaline Cast (Auto) 0 /lpf (0-5) 10/30/22 21: U Epithel Cells (Auto) 5-10 /lpf (0-5) H 10/30/22 21:22 Urine Bacteria (Auto) Negative (Negative) 10/30/22 21:22 Adenovirus (PCR) Not Detected (NotDetected) 10/30/22 23:11 B. pertussis DNA (PCR) Not Detected (NotDetected) 10/30/22 23:11 B.parapertussis DNA PCR Not Detected (NotDetected) 10/30/22 23:11 C. pneumoniae DNA (PCR) Not Detected (NotDetected) 10/30/22 23:11 Coronavirus OC43 (PCR) Not Detected (NotDetected) 10/30/22 23:11 Coronavirus HKU1 (PCR) Not Detected (NotDetected) 10/30/22 23:11 Coronavirus 229E (PCR) Not Detected (NotDetected) 10/30/22 23:11 SARS-CoV-2 (PCR) Not Detected (NotDetected) 10/30/22 23:11 Coronavirus NL63 (PCR) Not Detected (NotDetected) 10/30/22 23:11 Human Metapneumovir PCR Not Detected (NotDetected) 10/30/22 23:11 Influenza Type A (PCR) Not Detected (NotDetected) 10/30/22 23:11 Influenza Type B (PCR) Not Detected (NotDetected) 10/30/22 23:11 M. pneumoniae (PCR) Not Detected (NotDetected) 10/30/22 23:11 Parainfluenza 1 (PCR) Not Detected (NotDetected) 10/30/22 23:11 Parainfluenza 2 (PCR) Not Detected (NotDetected) 10/30/22 23:11 Parainfluenza 3 (PCR) Not Detected (NotDetected) 10/30/22 23:11 Parainfluenza 4 (PCR) Not Detected (NotDetected) 10/30/22 23:11 RSV (PCR) Not Detected (NotDetected) 10/30/22 23:11 Entero/Rhino (PCR) Not Detected (NotDetected) 10/30/22 23:[address] 10/30/22 20:48 Exam(s): CT HEAD Without Contrast EXAM: CT Head Without Intravenous Contrast CLINICAL HISTORY: Reason for exam: confusion. TECHNIQUE: Axial computed tomography images of the head/brain without intravenous contrast. CTDI is 36.79 mGy and DLP is 702.46 mGy-cm. Automated exposure control was utilized for the study. A dose lowering technique was utilized adhering to the principles of ALARA. COMPARISON: CT head, 08/29/22 FINDINGS: There is evidence of old left frontotemporal craniotomy. There is encephalomalacia involving the anterior left frontal lobe with aneurysm clip suggested in the region of the distal left M1 segment. There is mild ex vacuo enlargement of the frontal horn of the left lateral ventricle. There is stable parenchymal hypodensity along the parafalcine bilateral frontal lobe suggesting old bilateral TRUE territory infarcts. Rosas-white matter differentiation is otherwise maintained. There is no acute intracranial hemorrhage or abnormal extra-axial fluid collection. There is no mass-effect or midline shift. There is no hydrocephalus. Generalized parenchymal volume loss is noted. There is no skull fracture. Sinuses and mastoid air cells are clear. Intracranial atherosclerosis is noted. IMPRESSION: No evidence of acute intracranial process. Electronically signed by: Sae Richardson M.D. 10/30/22 23:01 PM Code Status & VTE Plan Code Status Full code VTE Prophylaxis Plan VTE Prophylaxis will be ordered: Yes PG Care Time/CCT Total # of Minutes Spent Total Time Spent with Patient: Total time spent is greater than 50% in coordination of care (as documented) at patient's floor/unit and/or counseling patient: Coding Level of Care Code 54477 INT INP/OBS CARE 3/75MIN Diagnoses AMS (altered mental status) R41.82 End-stage renal disease on peritoneal dialysis N18.6; Z99.2 PTSD (post-traumatic stress disorder) F43.10 Tobacco use disorder F17.200 Pulmonary emphysema J43.9 Benign prostate hyperplasia N40.0 Hx of atrial flutter Z86.79 Seizure disorder G40.909 Ambulatory dysfunction R26.2 Intracranial hemorrhage I62.9 History of cerebral aneurysm repair Z98.890; Z86.79
[2022-10-31] MEDS ORDERED: ONDANSETRON INJ 2 MG/ML 2 ML VIAL IV PRN (02:11)
[2022-10-31] MEDS ORDERED: ALBUTEROL HFA 8 GM INHALER INH PRN (02:11)
[2022-10-31] MEDS ORDERED: ACETAMINOPHEN 325 MG TAB PO PRN (02:11)
--- NOTE | 2022-10-31 03:15 | Emergency Department Note ---
Impression & Plan AMS (altered mental status), ESRD on dialysis, Pain of scalp ED Provider Note INFORMANT: Patient and family ED PROVIDER(S): Melchor Whaley MD CHIEF COMPLAINT: Confusion PLAN: Disposition: Admitted Condition: Good Outpatient prescription management: none Referral: None MEDICAL DECISION MAKING: Patient presented because of confusion. On physical examination he had tender ness over the temporal artery distribution. He denied global headache. He noted no similar aspect compared to his issue a decade ago regarding his ICH/aneurysm issue. Patient had a mild amount of confusion on examination but had no focal findings. Family notes he is not doing well at home and they are having difficulty caring for him due to his confusion. The patient had an unremarkable head CT. His CBC revealed no leukocytosis. Patient's ESR is elevated. In light of the tenderness over the temporal artery this is concerning. Patient had a nonischemic ECG. Urinalysis was unremarkable. Patient does have a mild elevation of his troponin but also significant elevation of creatinine consistent with his end-stage renal disease. Patient is going to require further management in the hospital. I discussed this with family. Patient and family in agreement. Consultation was made with Dr. Solomon Espinosa of the [facility] service. Patient was evaluated in the ER for further management. Discussed with purchasing manager After review of the information above and other included data, I feel the patient requires admission. Triage Nursing notes reviewed and agree them. Vital Signs: reviewed and remarkable for hypertension Prior /Outside records reviewed: Prior hospital admission record reviewed regarding his sepsis Differential diagnosis: Infection, hypoglycemia, electrolyte abnormalities, overdose, toxicologic, cardiac sources, intracerebral event, neurologic, trauma, as well as other pathologies. Diagnostics, as interpreted by me: ECG: Twelve-lead ECG reveals sinus rhythm with first-degree AV block at 76 bpm. Nonspecific interventricular conduction block present. No T elevation. Cardiac Monitoring: Cardiac monitoring ordered by me: The patient was placed on continuous cardiac monitoring and observed. It revealed a normal sinus rhythm at 79 beats per minute without ectopy or evidence of dysrhythmia. Medical decision rules: none Imaging studies: Head CT: A noncontrast CT scan of the head was performed and was negative for tumor, fracture, intracranial hemorrhage, or other acute pathology. Old appearing areas of encephalomalacia in the frontal lobes noted. Insert refer HPI: The patient is a 72year old male who presents to the Emergency Room with complaints of confusion. Family is present and helps with the history. They note that for the last 24 hours the patient seems to be confused. Granddaughter notes that he has had issues with his Keppra medication. He may have taken too much and then has stopped taking it. Patient also did not do his peritoneal dialysis last night. The patient also notes the following associated symptoms, a tender bump on the right scalp just above the ear, generalized weakness. Patient denies trauma. The patient has taken no medication for relieving factors. Current pain is rated as 0 /10. Patient has a history of a coil aneurysm. He notes no headache. Pt denies LOC, headache, fevers, chills, diaphoresis, visual changes, neck pain, chest pain, breathing difficulties, nausea, vomiting, abdominal pain, back pain, melena, hematochezia, new urinary symptoms, numbness, rash, or other complaints. PAST MEDICAL HISTORY: See Below, pneumonia, sepsis PAST SURGICAL HISTORY: See Below, coiled intracerebral aneurysm SOCIAL HISTORY: See Below, smoker HOME MEDICATIONS: See Below ALLERGIES: See Below VITALS: See Below PHYSICAL EXAMINATION: GENERAL: Awake, alert, nontoxic-appearing, in no distress HENT: Normocephalic, atraumatic. Oropharynx unremarkable. There is tenderness to palpation over the superior aspect of the temporal artery with a small mild palpable nodule. No fluctuance. No overlying cellulitis. No zoster. EYES: Normal conjunctiva. Sclera non-icteric. NECK: Inspection normal. Non-tender. Supple. No nuchal rigidity. FROM. No masses. RESPIRATORY: Clear to auscultation. No wheezes. No rales. Normal respiratory effort. CARDIAC: Normal rate. Normal rhythm. No murmurs. No rubs. Extremities warm and well perfused. Pulses equal. No JVD. GI: Soft, non-distended. No tenderness to palpation. No rebound or guarding. No masses. RECTAL: Deferred. MUSCULOSKELETAL: Atraumatic. Chest examination reveals no tenderness. The back is symmetrical on inspection without obvious abnormality. There is no CVA tende rness to palpation. No joint edema. LOWER EXTREMITIES: Calves are equal size bilaterally and non-tender. No edema. No discoloration. NEURO: Mildly confused sensorium. No focal sensory or motor deficits noted. SKIN: No rash or jaundice noted. Past Med/Surg History Medical History (Updated 10/31/22 @ 03:15 by Melchor Whaley MD) Alzheimer disease Anemia Benign neoplasm of skin of nose removed once Benign prostate hyperplasia Bradycardia CCPD (continuous cycling peritoneal dialysis) status port in place left abdomen--dialysis daily at home; second port that has been placed for dialysis. Chronic obstructive pulmonary disease inhaler/nebulizer daily COPD (chronic obstructive pulmonary disease) Diverticulosis End-stage renal disease on peritoneal dialysis Gout hx Hemorrhoids "not currently flared" History of marijuana use daily HTN (hypertension) Hx of atrial flutter 06/2021, hospitalized w/pneumonia for almost 3 weeks; dx atrial flutter- currently amiodarone; f/u dr. ad[place], [place] Hypercalcemia Hypertension Intracranial hemorrhage 2012 Low back pain Myoclonic jerking On home oxygen therapy 2L N/C at hs PAF (paroxysmal atrial fibrillation) Paroxysmal atrial flutter Polycystic kidney disease, adult type (09/03/12) Secondary hyperparathyroidism (of renal origin) Secondary hyperparathyroidism of renal origin Tremor of both hands Vitamin D deficiency Surgical History (Updated 09/14/22 @ 11:09 by Catrachito Kennedy MD) History of cerebral aneurysm repair 2012 [facility] [place]--clip in place; clip IS MRI COMPATIBLE History of colonoscopy History of tooth extraction all teeth Family History Other No family history of adverse response to anesthesia Denies family history of Myocardial infarction Social History Smoking Status: Current every day smoker Second Hand Exposure: No; Do You Dip or Chew Tobacco: No; Hx Alcohol Use: No Hx Substance Use: No Preferred Language: Tanzanian Communication Ability: Effective Communication Ability Comment: pt can sign own consent Lead Software Architect Required: No Beliefs That Will Affect Care: None marital status: Single Current Living Situation: Spouse Current Living Situation Comment: Patient lives with granddaughter, Leti, and granddaughter spouse and kids How many Children do You have: 1 Feels Safe at Home: Yes Assistive Devices: None Allergies Allergies Allergy/AdvReac Type Severity Reaction Status Date / Time lisinopril AdvReac Mild COUGH Verified 10/31/22 00:40 Home Meds Home Medications Medication Instructions Recorded Confirmed calcitriol 0.5 mcg capsule 1 mcg PO QAM 06/30/21 10/31/22 polyethylene glycol 3350 17 17 g PO BID 06/30/21 10/31/22 gram/dose oral powder (Miralax) docusate sodium 100 mg capsule 400 mg PO BID 07/31/21 10/31/22 (Colace) cinacalcet 30 mg tablet (Sensipar) 30 mg PO DAILY 03/27/22 10/31/22 guaifenesin 1,200 mg tablet, 1,200 mg PO BID 03/27/22 10/31/22 extended release 12 hr (Mucinex) acetaminophen 650 mg 1,300 mg PO Q12H 08/29/22 10/31/22 tablet,extended release albuterol sulfate 90 mcg/actuation 2 inh inhalation Q6H PRN shortness 08/29/22 10/31/22 aerosol inhaler (ProAir HFA) of breath or wheezing amiodarone 200 mg tablet 200 mg PO DAILY 08/29/22 10/31/22 epinephrine 0.3 mg/0.3 mL 0.3 mg IM Q4H PRN as directed 08/29/22 10/31/22 injection, auto-injector (EpiPen) ipratropium 0.5 mg-albuterol 3 mg 3 ml inhalation BID 08/29/22 10/31/22 (2.5 mg base)/3 mL nebulization soln diphenhydramine HCl 25 mg capsule 50 mg PO DAILY 10/31/22 10/31/22 (Benadryl) Previous Rx's Medication Instructions Recorded tiotropium 2.5 mcg-olodaterol 2.5 2 puff inhalation QAM #4 grams 02/18/21 mcg/actuation mist for inhalation (Stiolto Respimat) amlodipine 2.5 mg tablet 2.5 mg PO DAILY #30 tabs 09/06/22 ferric citrate 210 mg iron tablet 420 mg PO TIDWMEAL #1 tab 09/06/22 (Auryxia) levetiracetam 250 mg tablet 250 mg PO QAM #10 tabs 09/06/22 (Keppra) Results & Data (ED) Vital Signs Vital Signs - 24 hr 10/30/22 21:00 10/30/22 23:03 10/30/22 23:07 Pulse Rate 75 Pulse Rate [Apical] 79 Respiratory Rate 18 Respiratory Effort / Characteristics Non-Labored Spontaneous Respiratory Depth Normal Blood Pressure [Left Arm] 167/87 H Blood Pressure Mean [Left Arm] 113 Pulse Oximetry 98 Oxygen Delivery Method Room Air Sepsis Recent Fever Within 48 Hours No Sepsis New/Unexplained Change in Mental Status N/A Sepsis Action Taken by Nursing No Action Required Laboratory Data 10/30/22 20:45 10/30/22 20:45 Lab Results 10/30/22 10/30/22 10/30/22 Range/Units 20:45 20:45 20:45 WBC 7.33 (4.8-10.8) K/ul RBC 3.31 L (4.70-6.10) M/uL Hgb 9.8 L (14.0-18.0) g/dl Hct 29.5 L (42.0-52.0) % MCV 89.1 (80.0-100.0) fL MCH 29.6 (25.0-34.0) pg MCHC 33.2 (32.0-36.0) g/dL RDW Std Deviation 65.5 H (36.4-46.3) fL RDW Coeff of Giovana 20.2 H (11.5-14.5) % Plt Count 252 (130-400) K/uL MPV 9.7 (9.4-12.4) fL Immature Gran % (Auto) 0.8 % Neut % (Auto) 66.0 % Lymph % (Auto) 14.9 % Warrick % (Auto) 10.1 % Eos % (Auto) 6.7 % Baso % (Auto) 1.5 % Neut # (Auto) 4.84 (1.40-6.50) K/uL Lymph # (Auto) 1.09 L (1.2-3.4) K/uL Warrick # (Auto) 0.74 H (0.11-0.59) K/uL Eos # (Auto) 0.49 (0-0.50) K/uL Baso # (Auto) 0.11 (0-0.2) K/uL Immature Gran # (Auto) 0.06 (0.01-0.20) K/uL Hypersegmented Neuts 1+ Polychromasia 1+ Anisocytosis Present ESR (0-20) mm/hr Sodium 136 (136-145) mmol/L Potassium 4.5 (3.5-5.1) mmol/L Chloride 97 L (98-107) mmol/L Carbon Dioxide 19 L (21-32) mmol/L Anion Gap 20 H (3-11) BUN 78 H (6-23) mg/dl Creatinine 11.54 H* (0.6-1.4) mg/dl Est Cr Clr Drug Dosing Not Reportable Est GFR ( Amer) 4.5 ml/min Est GFR (Non-Af Amer) 3.9 ml/min BUN/Creatinine Ratio 6.8 L (10-20) Glucose 82 (70-99(Fasting)) mg/dl Lactate (0.4-2.0) mmol/L Calcium 8.3 L (8.6-10.3) mg/dl Magnesium 2.0 (1.7-2.4) mg/dl Total Bilirubin 0.4 (0.2-1.0) mg/dl AST 8 L (13-39) U/L ALT 7 (7-52) U/L Alkaline Phosphatase 55 (34-104) U/L Troponin I High Sens 38.4 H (0-20) pg/ml Total Protein 6.1 (6.0-8.3) gm/dl Albumin 3.3 L (3.4-5.0) gm/dl Globulin 2.8 (2.5-4.0) gm/dl Albumin/Globulin Ratio 1.2 (0.9-2) TSH 2.124 (0.300-4.500) uIu/ml Urine Color Urine Appearance (Clear) Urine pH (4.5-7.5) Ur Specific Pierron (1.000-1.030) Urine Protein (Negative) Urine Glucose (UA) (Negative) Urine Ketones (Negative) Urine Blood (Negative) Urine Nitrite (Negative) Urine Bilirubin (Negative) Urine Urobilinogen (Negative) Ur Leukocyte Esterase (Negative) Urine WBC (Auto) (0-5) /hpf Urine RBC (Auto) (0-4) /hpf U Hyaline Cast (Auto) (0-5) /lpf U Epithel Cells (Auto) (0-5) /lpf Urine Bacteria (Auto) (Negative) Adenovirus (PCR) (NotDetected) B. pertussis DNA (PCR) (NotDetected) B.parapertussis DNA PCR (NotDetected) C. pneumoniae DNA (PCR) (NotDetected) Coronavirus OC43 (PCR) (NotDetected) Coronavirus HKU1 (PCR) (NotDetected) Coronavirus 229E (PCR) (NotDetected) SARS-CoV-2 (PCR) (NotDetected) Coronavirus NL63 (PCR) (NotDetected) Human Metapneumovir PCR (NotDetected) Influenza Type A (PCR) (NotDetected) Influenza Type B (PCR) (NotDetected) M. pneumoniae (PCR) (NotDetected) Parainfluenza 1 (PCR) (NotDetected) Parainfluenza 2 (PCR) (NotDetected) Parainfluenza 3 (PCR) (NotDetected) Parainfluenza 4 (PCR) (NotDetected) RSV (PCR) (NotDetected) Entero/Rhino (PCR) (NotDetected) 10/30/22 10/30/22 10/30/22 Range/Units 21:22 22:37 22:37 WBC (4.8-10.8) K/ul RBC (4.70-6.10) M/uL Hgb (14.0-18.0) g/dl Hct (42.0-52.0) % MCV (80.0-100.0) fL MCH (25.0-34.0) pg MCHC (32.0-36.0) g/dL RDW Std Deviation (36.4-46.3) fL RDW Coeff of Giovana (11.5-14.5) % Plt Count (130-400) K/uL MPV (9.4-12.4) fL Immature Gran % (Auto) % Neut % (Auto) % Lymph % (Auto) % Warrick % (Auto) % Eos % (Auto) % Baso % (Auto) % Neut # (Auto) (1.40-6.50) K/uL Lymph # (Auto) (1.2-3.4) K/uL Warrick # (Auto) (0.11-0.59) K/uL Eos # (Auto) (0-0.50) K/uL Baso # (Auto) (0-0.2) K/uL Immature Gran # (Auto) (0.01-0.20) K/uL Hypersegmented Neuts Polychromasia Anisocytosis ESR 69 H (0-20) mm/hr Sodium (136-145) mmol/L Potassium (3.5-5.1) mmol/L Chloride (98-107) mmol/L Carbon Dioxide (21-32) mmol/L Anion Gap (3-11) BUN (6-23) mg/dl Creatinine (0.6-1.4) mg/dl Est Cr Clr Drug Dosing Est GFR ( Amer) ml/min Est GFR (Non-Af Amer) ml/min BUN/Creatinine Ratio (10-20) Glucose (70-99(Fasting)) mg/dl Lactate 1.0 (0.4-2.0) mmol/L Calcium (8.6-10.3) mg/dl Magnesium (1.7-2.4) mg/dl Total Bilirubin (0.2-1.0) mg/dl AST (13-39) U/L ALT (7-52) U/L Alkaline Phosphatase (34-104) U/L Troponin I High Sens (0-20) pg/ml Total Protein (6.0-8.3) gm/dl Albumin (3.4-5.0) gm/dl Globulin (2.5-4.0) gm/dl Albumin/Globulin Ratio (0.9-2) TSH (0.300-4.500) uIu/ml Urine Color Yellow Urine Appearance Clear (Clear) Urine pH 5.5 (4.5-7.5) Ur Specific Pierron 1.019 (1.000-1.030) Urine Protein 1+ H (Negative) Urine Glucose (UA) Negative (Negative) Urine Ketones Negative (Negative) Urine Blood Negative (Negative) Urine Nitrite Negative (Negative) Urine Bilirubin Negative (Negative) Urine Urobilinogen Negative (Negative) Ur Leukocyte Esterase Negative (Negative) Urine WBC (Auto) 1-5 (0-5) /hpf Urine RBC (Auto) 0-4 (0-4) /hpf U Hyaline Cast (Auto) 0 (0-5) /lpf U Epithel Cells (Auto) 5-10 H (0-5) /lpf Urine Bacteria (Auto) Negative (Negative) Adenovirus (PCR) (NotDetected) B. pertussis DNA (PCR) (NotDetected) B.parapertussis DNA PCR (NotDetected) C. pneumoniae DNA (PCR) (NotDetected) Coronavirus OC43 (PCR) (NotDetected) Coronavirus HKU1 (PCR) (NotDetected) Coronavirus 229E (PCR) (NotDetected) SARS-CoV-2 (PCR) (NotDetected) Coronavirus NL63 (PCR) (NotDetected) Human Metapneumovir PCR (NotDetected) Influenza Type A (PCR) (NotDetected) Influenza Type B (PCR) (NotDetected) M. pneumoniae (PCR) (NotDetected) Parainfluenza 1 (PCR) (NotDetected) Parainfluenza 2 (PCR) (NotDetected) Parainfluenza 3 (PCR) (NotDetected) Parainfluenza 4 (PCR) (NotDetected) RSV (PCR) (NotDetected) Entero/Rhino (PCR) (NotDetected) 10/30/22 Range/Units 23:11 WBC (4.8-10.8) K/ul RBC (4.70-6.10) M/uL Hgb (14.0-18.0) g/dl Hct (42.0-52.0) % MCV (80.0-100.0) fL MCH (25.0-34.0) pg MCHC (32.0-36.0) g/dL RDW Std Deviation (36.4-46.3) fL RDW Coeff of Giovana (11.5-14.5) % Plt Count (130-400) K/uL MPV (9.4-12.4) fL Immature Gran % (Auto) % Neut % (Auto) % Lymph % (Auto) % Warrick % (Auto) % Eos % (Auto) % Baso % (Auto) % Neut # (Auto) (1.40-6.50) K/uL Lymph # (Auto) (1.2-3.4) K/uL Warrick # (Auto) (0.11-0.59) K/uL Eos # (Auto) (0-0.50) K/uL Baso # (Auto) (0-0.2) K/uL Immature Gran # (Auto) (0.01-0.20) K/uL Hypersegmented Neuts Polychromasia Anisocytosis ESR (0-20) mm/hr Sodium (136-145) mmol/L Potassium (3.5-5.1) mmol/L Chloride (98-107) mmol/L Carbon Dioxide (21-32) mmol/L Anion Gap (3-11) BUN (6-23) mg/dl Creatinine (0.6-1.4) mg/dl Est Cr Clr Drug Dosing Est GFR ( Amer) ml/min Est GFR (Non-Af Amer) ml/min BUN/Creatinine Ratio (10-20) Glucose (70-99(Fasting)) mg/dl Lactate (0.4-2.0) mmol/L Calcium (8.6-10.3) mg/dl Magnesium (1.7-2.4) mg/dl Total Bilirubin (0.2-1.0) mg/dl AST (13-39) U/L ALT (7-52) U/L Alkaline Phosphatase (34-104) U/L Troponin I High Sens (0-20) pg/ml Total Protein (6.0-8.3) gm/dl Albumin (3.4-5.0) gm/dl Globulin (2.5-4.0) gm/dl Albumin/Globulin Ratio (0.9-2) TSH (0.300-4.500) uIu/ml Urine Color Urine Appearance (Clear) Urine pH (4.5-7.5) Ur Specific Pierron (1.000-1.030) Urine Protein (Negative) Urine Glucose (UA) (Negative) Urine Ketones (Negative) Urine Blood (Negative) Urine Nitrite (Negative) Urine Bilirubin (Negative) Urine Urobilinogen (Negative) Ur Leukocyte Esterase (Negative) Urine WBC (Auto) (0-5) /hpf Urine RBC (Auto) (0-4) /hpf U Hyaline Cast (Auto) (0-5) /lpf U Epithel Cells (Auto) (0-5) /lpf Urine Bacteria (Auto) (Negative) Adenovirus (PCR) Not Detected (NotDetected) B. pertussis DNA (PCR) Not Detected (NotDetected) B.parapertussis DNA PCR Not Detected (NotDetected) C. pneumoniae DNA (PCR) Not Detected (NotDetected) Coronavirus OC43 (PCR) Not Detected (NotDetected) Coronavirus HKU1 (PCR) Not Detected (NotDetected) Coronavirus 229E (PCR) Not Detected (NotDetected) SARS-CoV-2 (PCR) Not Detected (NotDetected) Coronavirus NL63 (PCR) Not Detected (NotDetected) Human Metapneumovir PCR Not Detected (NotDetected) Influenza Type A (PCR) Not Detected (NotDetected) Influenza Type B (PCR) Not Detected (NotDetected) M. pneumoniae (PCR) Not Detected (NotDetected) Parainfluenza 1 (PCR) Not Detected (NotDetected) Parainfluenza 2 (PCR) Not Detected (NotDetected) Parainfluenza 3 (PCR) Not Detected (NotDetected) Parainfluenza 4 (PCR) Not Detected (NotDetected) RSV (PCR) Not Detected (NotDetected) Entero/Rhino (PCR) Not Detected (NotDetected) Imaging Data Radiologist's Impression: Head CT 10/30/22 20:48 Exam(s): CT HEAD Without Contrast EXAM: CT Head Without Intravenous Contrast CLINICAL HISTORY: Reason for exam: confusion. TECHNIQUE: Axial computed tomography images of the head/brain without intravenous contrast. CTDI is 36.79 mGy and DLP is 702.46 mGy-cm. Automated exposure control was utilized for the study. A dose lowering technique was utilized adhering to the principles of ALARA. COMPARISON: CT head, 08/29/22 FINDINGS: There is evidence of old left frontotemporal craniotomy. There is encephalomalacia involving the anterior left frontal lobe with aneurysm clip suggested in the region of the distal left M1 segment. There is mild ex vacuo enlargement of the frontal horn of the left lateral ventricle. There is stable parenchymal hypodensity along the parafalcine bilateral frontal lobe suggesting old bilateral TRUE territory infarcts. Rosas-white matter differentiation is otherwise maintained. There is no acute intracranial hemorrhage or abnormal extra-axial fluid collection. There is no mass-effect or midline shift. There is no hydrocephalus. Generalized parenchymal volume loss is noted. There is no skull fracture. Sinuses and mastoid air cells are clear. Intracranial atherosclerosis is noted. IMPRESSION: No evidence of acute intracranial process. Electronically signed by: Sae Richardson M.D. 10/30/22 23:01 PM Discharge Plan Visit Data Chief Complaint: Confusion Stated Complaint: CONFUSION, WEAKNESS ED Provider: Melchor Whaley Discharge Problem: AMS (altered mental status), ESRD on dialysis, Pain of scalp Patient Disposition: Admitted As Inpatient Discharge Instructions Interventions: ED Discharge Assessment Last Done: 10/31/22 01:19
[2022-10-31] MEDS: ALBUT/IPRATROP 3MG/0.5MG NEB 3 ML VIAL INH SCH ×2 (07:33→19:10)
[2022-10-31 07:48] LABS: Basophils # (auto) 0.09 K/uL (0-0.2); Basophils % (auto) 1.3 %; Eosinophils # (auto) 0.49 K/uL (0-0.50); Hemoglobin 9.8 g/dl (14.0-18.0); Immature Granulocytes # (auto) 0.05 K/uL (0.01-0.20); Immature Granulocytes % (auto) 0.7 %; Lymphocytes # (auto) 0.84 K/uL (1.2-3.4); Mean Corpuscular Hemoglobin 28.9 pg (25.0-34.0); Mean Corpuscular Hgb Conc 31.6 g/dL (32.0-36.0); Mean Corpuscular Volume 91.4 fL (80.0-100.0); Mean Platelet Volume 9.9 fL (9.4-12.4); Monocytes # (auto) 0.65 K/uL (0.11-0.59); Monocytes % (auto) 9.3 %; Neutrophils # (auto) 4.87 K/uL (1.40-6.50); Neutrophils % (auto) 69.7 %; Platelet Count 233 K/uL (130-400); RDW Coefficient of Variation 20.1 % (11.5-14.5); RDW Standard Deviation 67.1 fL (36.4-46.3); Red Blood Count 3.39 M/uL (4.70-6.10); White Blood Count 6.99 K/ul (4.8-10.8)
[2022-10-31 08:01] LABS: Albumin Level 3.2 gm/dl (3.4-5.0); BUN Creatinine Ratio 6.7 (10-20); Calcium 8.4 mg/dl (8.6-10.3); Creatinine Clr Calc Pharmacy 6.2 ml/min; Est GFR (African American) 4.3 ml/min; Est GFR (Non-African American) 3.7 ml/min; Phosphorus 7.8 mg/dl (2.5-4.9); Potassium 4.4 mmol/L (3.5-5.1)
[2022-10-31 08:27] LABS: Anisocytosis Present; Polychromasia 1+; Schistocytes 1+
[2022-10-31] MEDS: amLODIPine BESYLATE 5 MG TAB PO SCH (08:44)
[2022-10-31] MEDS: guaiFENesin 600 MG TABCR PO SCH ×2 (08:44→22:10)
[2022-10-31] MEDS: DOCUSATE SODIUM 100 MG CAP PO SCH ×2 (08:45→22:10)
[2022-10-31] MEDS: AMIODARONE 200 MG TAB PO SCH (08:45)
[2022-10-31] MEDS: CALCITRIOL 0.25 MCG CAPSULE PO SCH (08:46)
[2022-10-31] MEDS: UMECLIDINIUM/VILANTEROL 62.5/25MCG 7 PUFFS/INHALER INH SCH (08:46)
[2022-10-31] MEDS: levETIRAcetam 250 MG TAB PO SCH (08:46)
[2022-10-31] MEDS: CINACALCET HCL 30 MG TAB PO SCH (08:46)
[2022-10-31] MEDS: HEPARIN SOD 5,000 UNIT/0.5 ML VIAL SQ SCH ×2 (08:49→22:11)
[2022-10-31] MEDS ORDERED: diphenhydrAMINE Capsule 25 MG CAP PO SCH (09:00)
--- NOTE | 2022-10-31 09:01 | XRay Report ---
XR chest 1V portable CLINICAL HISTORY: AMS TECHNIQUE: Single frontal radiograph of the chest was obtained. Comparison: Comparison is made to chest radiograph 08/29/2022 FINDINGS: No lines and tubes are seen. Cardiomegaly is noted. The aortic arch is calcified. The lungs are clear . No evidence of pleural effusion or pneumothorax. IMPRESSION: No acute chest disease. ACT 112: Negative or not required by law. Electronically signed by: Arthur Taylor M.D. 10/31/2022 8:59 AM
[2022-10-31] MEDS: POLYETHYLENE (MIRALAX) 17 GM PACK PO SCH ×2 (10:37→22:09)
--- NOTE | 2022-10-31 11:34 | Nephrology Consultation ---
Date of Consultation October 31, 2022 Assessment & Plan (1) End-stage renal disease on peritoneal dialysis: CCPD nightly: 5 exchanges or 3000 ml, 80 minute dwell time. EDW 74 kg. Tolerating treatments well. Orders for tonight have been entered into the EHR and reviewed with the tool die maker. Clearance acceptable. Volume status controlled. Medications appropriately dosed for PD. Monitor metabolic profile daily while inpatient. Document daily weight. Renal diet. (2) Polycystic kidney disease, adult type: Records reviewed. Denies symptomatic enlargement. L spine CT reviewed. (3) History of cerebral aneurysm repair: CT head reviewed. BP acceptable. s/p craniotomy and clipping MCA 2012. (4) Ambulatory dysfunction: Evaluation per hospitalist service. Etiology unclear. PT/OT pending. History of Present Illness Reason for Consultation: ESRD on PD Requesting Physician: Malachi Peoples MD Attending Physician: Malachi Peoples MD History of Present Illness Mr. 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 He is maintained on PD through [facility] under the care of Dr. Romo. Sisi performs CCPD x 7 nights per week. PD Rx is 5 cycles with 3000 ml fill and dwell time of 80 minutes. His EDW is 74 kg. He has been using 1 bag of 2.5% dextrose and 2 bags of 1.5%. He denies any bloody, cloudy, or fibrinous effluent. He denies any abdominal pain or discomfort. PD catheter exit site has been clean. Complications of CKD include hyperphosphatemia and sPTH. Calcitriol increased during recent admission at [facility] in August. Sisi had presented to the hospital with weakness and his evaluation demonstrated hypocalcemia and bradycardia. Carvedilol was discontinued during the admission. Sisi started dialysis in December 2017 following catheter placement by Dr. Yeboah. He has been listed for transplant at [facility] but was inactivated due to continued marijuana use. [facility] and recently completed a cardiac catheterization at the end of July as part of his transplant evaluation. Colonoscopy recently completed with removal of a large polyp. Medical history also notable for h/o intracranial hemorrhage due to brain aneurysm, hypertension, gout, BPH, atrial fibrillation, and COPD. He presented to the hospital with weakness and episodes of reported confusion. Records indicate progressive ambulatory dysfunction and general decline. Some heaviness predominately in the left leg reported. Weakness in his legs was a symptom reported when Sisi presented to [facility] in August and seems to have progressively increased. Serum electrolytes normal. Volume status is acceptable. Last PD treatment completed on Wednesday evening. Appetite is good. He denies GI complaints. SNF rehab was recommended on admission in 2021 and his most recent admission but there was no facility willing to assume care of peritoneal dialysis and Sisi was discharged home with home health PT. Allergies Allergy/AdvReac Type Severity Reaction Status Date / Time lisinopril AdvReac Mild COUGH Verified 10/31/22 00:40 Home Medications Medication Instructions Recorded Confirmed Type tiotropium 2.5 mcg-olodaterol 2.5 2 puff inhalation QAM #4 grams 02/18/21 10/31/22 Rx mcg/actuation mist for inhalation (Stiolto Respimat) calcitriol 0.5 mcg capsule 1 mcg PO QAM 06/30/21 10/31/22 History polyethylene glycol 3350 17 17 g PO BID 06/30/21 10/31/22 History gram/dose oral powder (Miralax) docusate sodium 100 mg capsule 400 mg PO BID 07/31/21 10/31/22 History (Colace) cinacalcet 30 mg tablet (Sensipar) 30 mg PO DAILY 03/27/22 10/31/22 History guaifenesin 1,200 mg tablet, 1,200 mg PO BID 03/27/22 10/31/22 History extended release 12 hr (Mucinex) acetaminophen 650 mg 1,300 mg PO Q12H 08/29/22 10/31/22 History tablet,extended release albuterol sulfate 90 mcg/actuation 2 inh inhalation Q6H PRN shortness 08/29/22 10/31/22 History aerosol inhaler (ProAir HFA) of breath or wheezing amiodarone 200 mg tablet 200 mg PO DAILY 08/29/22 10/31/22 History epinephrine 0.3 mg/0.3 mL 0.3 mg IM Q4H PRN as directed 08/29/22 10/31/22 History injection, auto-injector (EpiPen) ipratropium 0.5 mg-albuterol 3 mg 3 ml inhalation BID 08/29/22 10/31/22 History (2.5 mg base)/3 mL nebulization soln amlodipine 2.5 mg tablet 2.5 mg PO DAILY #30 tabs 09/06/22 10/31/22 Rx ferric citrate 210 mg iron tablet 420 mg PO TIDWMEAL #1 tab 09/06/22 10/31/22 Rx (Auryxia) levetiracetam 250 mg tablet 250 mg PO QAM #10 tabs 09/06/22 10/31/22 Rx (Keppra) diphenhydramine HCl 25 mg capsule 50 mg PO DAILY 10/31/22 10/31/22 History (Benadryl) Patient History Medical History Alzheimer disease Anemia Benign neoplasm of skin of nose removed once Benign prostate hyperplasia Bradycardia CCPD (continuous cycling peritoneal dialysis) status port in place left abdomen--dialysis daily at home; second port that has been placed for dialysis. Chronic obstructive pulmonary disease inhaler/nebulizer daily COPD (chronic obstructive pulmonary disease) Diverticulosis End-stage renal disease on peritoneal dialysis Gout hx Hemorrhoids "not currently flared" History of marijuana use daily HTN (hypertension) Hx of atrial flutter 06/2021, hospitalized w/pneumonia for almost 3 weeks; dx atrial flutter- currently amiodarone; f/u dr. adkins, or Hypercalcemia Hypertension Intracranial hemorrhage 2012 Low back pain Myoclonic jerking On home oxygen therapy 2L N/C at hs PAF (paroxysmal atrial fibrillation) Paroxysmal atrial flutter Polycystic kidney disease, adult type (09/03/12) Ruptured middle cerebral artery aneurysm Secondary hyperparathyroidism (of renal origin) Secondary hyperparathyroidism of renal origin Seizure disorder Tremor of both hands Vitamin D deficiency Surgical History History of cerebral aneurysm repair 2012 [facility] [place]--clip in place; clip IS MRI COMPATIBLE History of colonoscopy History of tooth extraction all teeth Family History Other No family history of adverse response to anesthesia Denies family history of Myocardial infarction Social History Smoking Status: Former smoker Second Hand Exposure: No; Do You Dip or Chew Tobacco: No; Tobacco Cessation Education Requested by Patient: No Hx Alcohol Use: No Hx Substance Use: No Preferred Language: Polish Communication Ability: Impaired Communication Ability Comment: pt can sign own consent Package Maker Required: No Beliefs That Will Affect Care: None marital status: Single Current Living Situation: Family Current Living Situation Comment: lives w/ rula, her & kids How many Children do You have: 1 Other Information That Helps Us Care for You: No Feels Safe at Home: Yes Safety Concerns: Feels Safe At This Time Assistive Devices: None Assistive Devices Comment: states he has home oxygen for bedtime but does not use it Review of Systems Review of Systems: All systems reviewed & are unremarkable except as noted in HPI & below Constitutional: + fatigue Physical Exam Constitutional: well developed and + thin; no acute distress Eyes: + anicteric sclerae; no corneal abnormality ENMT: Mouth: no oral mucosal abnormality and oral mucous membranes not dry Neck: normal visual inspection and trachea midline Respiratory: normal respiratory effort Auscultation: lungs clear to auscultation bilaterally Cardiovascular: Rate/Rhythm: regular rate Heart Sounds: normal S1, normal S2 and + murmur Extremities: no edema Gastrointestinal (Abdomen): Inspection/Auscultation: + abdomen distended and normal bowel sounds Percussion/Palpation: abdomen soft; abdomen nontender PD catheter with clean dressing intact Musculoskeletal: Extremities: no cyanosis and no clubbing Skin: + turgor decreased; no jaundice Neurologic: Motor/Sensory: no tremor and no asterixis Psychiatric: Orientation: alert and oriented x 3 Results & Data Vital Signs (Past 12 Hours) Vital Signs Temp Pulse Pulse Resp BP Pulse Ox O2 Del Method 10/31/22 07:48 36.3 C L 75 18 145/83 H 98 Room Air 10/31/22 07:22 67 10/31/22 03:37 36.5 C 72 18 152/79 H 95 Room Air 10/31/22 02:28 74 10/31/22 02:28 36.5 C 77 16 175/85 H 94 Room Air Laboratory Results Laboratory Results - last 24 hr 10/30/22 10/30/22 10/30/22 20:45 20:45 20:45 WBC 7.33 RBC 3.31 L Hgb 9.8 L Hct 29.5 L MCV 89.1 MCH 29.6 MCHC 33.2 RDW Std Deviation 65.5 H RDW Coeff of Giovana 20.2 H Plt Count 252 MPV 9.7 Immature Gran % (Auto) 0.8 Neut % (Auto) 66.0 Lymph % (Auto) 14.9 [place] % (Auto) 10.1 Eos % (Auto) 6.7 Baso % (Auto) 1.5 Neut # (Auto) 4.84 Lymph # (Auto) 1.09 L [place] # (Auto) 0.74 H Eos # (Auto) 0.49 Baso # (Auto) 0.11 Immature Gran # (Auto) 0.06 Hypersegmented Neuts 1+ Polychromasia 1+ Anisocytosis Present Schistocytes ESR Sodium 136 Potassium 4.5 Chloride 97 L Carbon Dioxide 19 L Anion Gap 20 H BUN 78 H Creatinine 11.54 H* Est Cr Clr Drug Dosing Not Reportable Est GFR ( Amer) 4.5 Est GFR (Non-Af Amer) 3.9 BUN/Creatinine Ratio 6.8 L Glucose 82 Lactate Calcium 8.3 L Phosphorus Magnesium 2.0 Total Bilirubin 0.4 AST 8 L ALT 7 Alkaline Phosphatase 55 Troponin I High Sens 38.4 H Total Protein 6.1 Albumin 3.3 L Globulin 2.8 Albumin/Globulin Ratio 1.2 TSH 2.124 Urine Color Urine Appearance Urine pH Ur Specific [place] Urine Protein Urine Glucose (UA) Urine Ketones Urine Blood Urine Nitrite Urine Bilirubin Urine Urobilinogen Ur Leukocyte Esterase Urine WBC (Auto) Urine RBC (Auto) U Hyaline Cast (Auto) U Epithel Cells (Auto) Urine Bacteria (Auto) Adenovirus (PCR) B. pertussis DNA (PCR) B.parapertussis DNA PCR C. pneumoniae DNA (PCR) Coronavirus OC43 (PCR) Coronavirus HKU1 (PCR) Coronavirus 229E (PCR) SARS-CoV-2 (PCR) Coronavirus NL63 (PCR) Human Metapneumovir PCR Influenza Type A (PCR) Influenza Type B (PCR) M. pneumoniae (PCR) Parainfluenza 1 (PCR) Parainfluenza 2 (PCR) Parainfluenza 3 (PCR) Parainfluenza 4 (PCR) RSV (PCR) Entero/Rhino (PCR) 10/30/22 10/30/22 10/30/22 21:22 22:37 22:37 WBC RBC Hgb Hct MCV MCH MCHC RDW Std Deviation RDW Coeff of Giovana Plt Count MPV Immature Gran % (Auto) Neut % (Auto) Lymph % (Auto) [place] % (Auto) Eos % (Auto) Baso % (Auto) Neut # (Auto) Lymph # (Auto) [place] # (Auto) Eos # (Auto) Baso # (Auto) Immature Gran # (Auto) Hypersegmented Neuts Polychromasia Anisocytosis Schistocytes ESR 69 H Sodium Potassium Chloride Carbon Dioxide Anion Gap BUN Creatinine Est Cr Clr Drug Dosing Est GFR ( Amer) Est GFR (Non-Af Amer) BUN/Creatinine Ratio Glucose Lactate 1.0 Calcium Phosphorus Magnesium Total Bilirubin AST ALT Alkaline Phosphatase Troponin I High Sens Total Protein Albumin Globulin Albumin/Globulin Ratio TSH Urine Color Yellow Urine Appearance Clear Urine pH 5.5 Ur Specific [place] 1.019 Urine Protein 1+ H Urine Glucose (UA) Negative Urine Ketones Negative Urine Blood Negative Urine Nitrite Negative Urine Bilirubin Negative Urine Urobilinogen Negative Ur Leukocyte Esterase Negative Urine WBC (Auto) 1-5 Urine RBC (Auto) 0-4 U Hyaline Cast (Auto) 0 U Epithel Cells (Auto) 5-10 H Urine Bacteria (Auto) Negative Adenovirus (PCR) B. pertussis DNA (PCR) B.parapertussis DNA PCR C. pneumoniae DNA (PCR) Coronavirus OC43 (PCR) Coronavirus HKU1 (PCR) Coronavirus 229E (PCR) SARS-CoV-2 (PCR) Coronavirus NL63 (PCR) Human Metapneumovir PCR Influenza Type A (PCR) Influenza Type B (PCR) M. pneumoniae (PCR) Parainfluenza 1 (PCR) Parainfluenza 2 (PCR) Parainfluenza 3 (PCR) Parainfluenza 4 (PCR) RSV (PCR) Entero/Rhino (PCR) 10/30/22 10/31/22 10/31/22 23:11 06:49 06:49 WBC 6.99 RBC 3.39 L Hgb 9.8 L Hct 31.0 L MCV 91.4 MCH 28.9 MCHC 31.6 L RDW Std Deviation 67.1 H RDW Coeff of Giovana 20.1 H Plt Count 233 MPV 9.9 Immature Gran % (Auto) 0.7 Neut % (Auto) 69.7 Lymph % (Auto) 12.0 [place] % (Auto) 9.3 Eos % (Auto) 7.0 Baso % (Auto) 1.3 Neut # (Auto) 4.87 Lymph # (Auto) 0.84 L [place] # (Auto) 0.65 H Eos # (Auto) 0.49 Baso # (Auto) 0.09 Immature Gran # (Auto) 0.05 Hypersegmented Neuts Polychromasia 1+ Anisocytosis Present Schistocytes 1+ ESR Sodium 136 Potassium 4.4 Chloride 96 L Carbon Dioxide 20 L Anion Gap 20 H BUN 80 H Creatinine 11.91 H* D Est Cr Clr Drug Dosing 6.2 Est GFR ( Amer) 4.3 Est GFR (Non-Af Amer) 3.7 BUN/Creatinine Ratio 6.7 L Glucose 77 Lactate Calcium 8.4 L Phosphorus 7.8 H Magnesium Total Bilirubin AST ALT Alkaline Phosphatase Troponin I High Sens Total Protein Albumin 3.2 L Globulin Albumin/Globulin Ratio TSH Urine Color Urine Appearance Urine pH Ur Specific [place] Urine Protein Urine Glucose (UA) Urine Ketones Urine Blood Urine Nitrite Urine Bilirubin Urine Urobilinogen Ur Leukocyte Esterase Urine WBC (Auto) Urine RBC (Auto) U Hyaline Cast (Auto) U Epithel Cells (Auto) Urine Bacteria (Auto) Adenovirus (PCR) Not Detected B. pertussis DNA (PCR) Not Detected B.parapertussis DNA PCR Not Detected C. pneumoniae DNA (PCR) Not Detected Coronavirus OC43 (PCR) Not Detected Coronavirus HKU1 (PCR) Not Detected Coronavirus 229E (PCR) Not Detected SARS-CoV-2 (PCR) Not Detected Coronavirus NL63 (PCR) Not Detected Human Metapneumovir PCR Not Detected Influenza Type A (PCR) Not Detected Influenza Type B (PCR) Not Detected M. pneumoniae (PCR) Not Detected Parainfluenza 1 (PCR) Not Detected Parainfluenza 2 (PCR) Not Detected Parainfluenza 3 (PCR) Not Detected Parainfluenza 4 (PCR) Not Detected RSV (PCR) Not Detected Entero/Rhino (PCR) Not Detected Diagnostic Findings XR chest 1V portable FINDINGS: No lines and tubes are seen. Cardiomegaly is noted. The aortic arch is calcified. The lungs are clear. No evidence of pleural effusion or pneumothorax. IMPRESSION: No acute chest disease. CT SCAN OF THE LUMBAR SPINE WITHOUT IV CONTRAST FINDINGS: The skeletal structures are heterogeneously osteopenic. There is no evidence of acute fracture or malalignment involving the lumbar spine. There is a minimal chronic superior endplate compression deformity of L2. Vertebral body height is otherwise maintained throughout the lumbar spine. Alignment is preserved. The transverse and spinous processes appear intact. There is no spondylolysis. No lytic or blastic lesion is seen. There is advanced degenerative disc space narrowing at L4-L5 with partial bony fusion. Moderate to severe disc space narrowing is seen at L5-S1. Mild narrowing is seen at the remaining lumbar levels. Posterior disc osteophyte complexes are seen at all lumbar levels. There is a mild central canal stenosis at L4-L5. There is no CT evidence of high-grade central canal stenosis. The visualized sacrum and bony pelvis appear intact. Partial bony fusion is noted in the right sacroiliac joint. The paraspinous soft tissues are normal as imaged. There is advanced atherosclerotic calcification of the abdominal aorta which is normal in caliber. The kidneys are enlarged and atrophic, and infiltrated by numerous cysts. The appearance is typical for autosomal dominant polycystic kidney disease. Bill cifications are noted in both kidneys. There is no retroperitoneal lymphadenopathy. A catheter is partially visualized in the pelvis. IMPRESSION: 1. No acute bony abnormality is seen involving the lumbar spine. 2. Osteopenia with chronic/spondylotic change as above. 3. Autosomal dominant polycystic kidney disease. PG Care Time/CCT Total # of Minutes Spent Total Time Spent with Patient: Total time spent is greater than 50% in coordination of care (as documented) at patient's floor/unit and/or counseling patient: Coding Level of Care Code 12390 IN/OBS CONSULT LVL 4,60M Diagnoses End-stage renal disease on peritoneal dialysis N18.6; Z99.2 Polycystic kidney disease, adult type Q61.2 History of cerebral aneurysm repair Z98.890; Z86.79 Ambulatory dysfunction R26.2
--- NOTE | 2022-10-31 13:17 | Hospitalist Progress Note ---
Date of Service October 31, 2022 Assessment & Plan (1) AMS (altered mental status): Plan: - Presented with worsening altered mental status x 24 hours at home. - Granddaughter reports that patient is independent, able to care for himself at home on a routine basis. - U/a was negative; CXR neg for PNA. - Head CT 10/30 with on acute intracranial process. Recommend repeating CT brain on 11/01 to evaluate for acute changes, as he did not have initial changes on CT head in the past with intracranial hemorrhage. - He has not completed at home dialysis for 2 days, will resume this evening per nephrology. - Recommend holding home Benadryl 50 mg qhs to evaluate for improvement. - Granddaughter does report that patient has not been taking Keppra as prescribed, recommend monitoring Keppra level in the AM. - PT/OT consult to evaluate for discharge planning. - ?Insomnia leading to confusion - recommend Zyprexa 2.5 mg this evening. - Of note, he was admitted in August/2022 for leg weakness - CT head and spine imaging all negative. CPK, B12, Lyme negative. Neurology evaluated with negative work up. Hypocalcemia and sinus bradycardia were likely contributing to weakness during admission. (2) End-stage renal disease on peritoneal dialysis: Plan: - Receives peritoneal dialysis at home but this has not been completed over the last two evenings. - Plan to resume this evening. Nephrology following. - Monitor daily labs, renally dose all meds. (3) PTSD (post-traumatic stress disorder): Plan: - Stable. (4) Pulmonary emphysema: Plan: - Continue supportive care, on room air. (5) Hx of atrial flutter: Plan: - Does not take anticoagulation due to h/o ICH from aneurysm. - Remains on Amiodarone. (6) Seizure disorder: Plan: - Myoclonic jerking noted during admission in August/2022, neurology recommended discontinuing Gabapentin and starting Keppra 250 mg daily. - His granddaughter reports patient has not been taking Keppra, will monitor level in the AM. - Consider EEG for evaluation along with neurology consult. (7) Ambulatory dysfunction: Plan: - ?etiology, PT/OT consulted. - Recent spinal imaging in August/2022 negative. (8) Intracranial hemorrhage: Plan: - August/2012, [facility], [place]. 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 Of note, clip is MRI compatible if MRI is required. - CT head neg on admission, plan to repeat on 11/01/22. - Anticoagulation contraindicated. (9) History of cerebral aneurysm repair: Plan: As noted above. (10) HTN (hypertension): Plan: - Continue home Amlodipine as prescribed. - BP has been elevated, 150-170's. (11) Alzheimer disease: Plan: - Possibly contributing to decline. (12) Secondary hyperparathyroidism (of renal origin): Plan: - Continue home meds. (13) Anemia: Plan: - Hgb decreased to 9.8 during this admission, prior baseline >11 gm/dL. - Anemia of renal insufficiency vs. other. Recommend monitoring anemia panel in the AM. (14) Pulmonary nodules: Plan: - Irregular bilateral upper lobe opacities noted on CT T spine August/2022. - Recommend follow up CT chest as outpatient. DVT ppx: Heparin 5,000 units q12hr. Code status: FULL CODE Dispo: Discharge pending PT/OT consults and improvement in mental status. Admission and Anticipated Discharge Date Admission Date: October 31, 2022 Subjective Mr. Redmond is a 72 y/o male who presented to the hospital with altered mental status. Discussed his case with his granddaughter Leti today. She reports his baseline mental status is stable, is able to care for himself at home. She returned home from work on , and found that her grandfather did not have dentures in place - when she asked him why, he was not able to answer. She noticed that evening, around 2:30 AM, that he was not connected to his home dialysis machine. She found him in the garage, peeing into a solo cup by the chest freezer. The patient remained in the garage until 4 PM on Wednesday, blankly staring into space. She elected to bring him to the ER after she discovered he was having a conversation on his cellphone, which was not connected to another line. She reports that he has not been taking Keppra at home as prescribed, has more than 50% of pills left in his bottle. He has not completed at home dialysis since Wed. Patient was sitting up in bed during my rounds visit, reports being admitted due to weakness in legs. He was not able to answer further questions. Review of Systems Review of Systems: Unable to obtain due to confusion. Physical Exam Physical Exam: Constitutional: Elderly male, no acute distress Respiratory: Lung sounds were generally clear bilaterally. Cardiovascular: Heart was RRR without significant murmur, gallops or rubs. Musculoskeletal System: The musculoskeletal system seemed concordant with age. Skin: The skin was negative for jaundice. Neurologic Exam: Patient was not alert to person or place. Extremities: Negative for edema or erythema Results & Data Results & Data Vital Signs (Past 12 Hours) Vital Signs Temp Pulse Pulse Resp BP Pulse Ox O2 Del Method 10/31/22 11:43 36.9 C 77 18 161/71 H 96 Room Air 10/31/22 07:48 36.3 C L 75 18 145/83 H 98 Room Air 10/31/22 07:22 67 10/31/22 03:37 36.5 C 72 18 152/79 H 95 Room Air 10/31/22 02:28 74 10/31/22 02:28 36.5 C 77 16 175/85 H 94 Room Air Laboratory Results 10/31/22 10/31/22 10/30/22 Range/Units 06:49 06:49 23:11 WBC 6.99 (4.8-10.8) K/ul RBC 3.39 L (4.70-6.10) M/uL Hgb 9.8 L (14.0-18.0) g/dl Hct 31.0 L (42.0-52.0) % MCV 91.4 (80.0-100.0) fL MCH 28.9 (25.0-34.0) pg MCHC 31.6 L (32.0-36.0) g/dL RDW Std Deviation 67.1 H (36.4-46.3) fL RDW Coeff of Giovana 20.1 H (11.5-14.5) % Plt Count 233 (130-400) K/uL MPV 9.9 (9.4-12.4) fL Immature Gran % (Auto) 0.7 % Neut % (Auto) 69.7 % Lymph % (Auto) 12.0 % [place] % (Auto) 9.3 % Eos % (Auto) 7.0 % Baso % (Auto) 1.3 % Neut # (Auto) 4.87 (1.40-6.50) K/uL Lymph # (Auto) 0.84 L (1.2-3.4) K/uL [place] # (Auto) 0.65 H (0.11-0.59) K/uL Eos # (Auto) 0.49 (0-0.50) K/uL Baso # (Auto) 0.09 (0-0.2) K/uL Immature Gran # (Auto) 0.05 (0.01-0.20) K/uL Hypersegmented Neuts Polychromasia 1+ Anisocytosis Present Schistocytes 1+ ESR (0-20) mm/hr Sodium 136 (136-145) mmol/L Potassium 4.4 (3.5-5.1) mmol/L Chloride 96 L (98-107) mmol/L Carbon Dioxide 20 L (21-32) mmol/L Anion Gap 20 H (3-11) BUN 80 H (6-23) mg/dl Creatinine 11.91 H* D (0.6-1.4) mg/dl Est Cr Clr Drug Dosing 6.2 Est GFR ( Amer) 4.3 ml/min Est GFR (Non-Af Amer) 3.7 ml/min BUN/Creatinine Ratio 6.7 L (10-20) Glucose 77 (70-99(Fasting)) mg/dl Lactate (0.4-2.0) mmol/L Calcium 8.4 L (8.6-10.3) mg/dl Phosphorus 7.8 H (2.5-4.9) mg/dl Magnesium (1.7-2.4) mg/dl Total Bilirubin (0.2-1.0) mg/dl AST (13-39) U/L ALT (7-52) U/L Alkaline Phosphatase (34-104) U/L Troponin I High Sens (0-20) pg/ml Total Protein (6.0-8.3) gm/dl Albumin 3.2 L (3.4-5.0) gm/dl Globulin (2.5-4.0) gm/dl Albumin/Globulin Ratio (0.9-2) TSH (0.300-4.500) uIu/ml Urine Color Urine Appearance (Clear) Urine pH (4.5-7.5) Ur Specific [place] (1.000-1.030) Urine Protein (Negative) Urine Glucose (UA) (Negative) Urine Ketones (Negative) Urine Blood (Negative) Urine Nitrite (Negative) Urine Bilirubin (Negative) Urine Urobilinogen (Negative) Ur Leukocyte Esterase (Negative) Urine WBC (Auto) (0-5) /hpf Urine RBC (Auto) (0-4) /hpf U Hyaline Cast (Auto) (0-5) /lpf U Epithel Cells (Auto) (0-5) /lpf Urine Bacteria (Auto) (Negative) Adenovirus (PCR) Not Detected (NotDetected) B. pertussis DNA (PCR) Not Detected (NotDetected) B.parapertussis DNA PCR Not Detected (NotDetected) C. pneumoniae DNA (PCR) Not Detected (NotDetected) Coronavirus OC43 (PCR) Not Detected (NotDetected) Coronavirus HKU1 (PCR) Not Detected (NotDetected) Coronavirus 229E (PCR) Not Detected (NotDetected) SARS-CoV-2 (PCR) Not Detected (NotDetected) Coronavirus NL63 (PCR) Not Detected (NotDetected) Human Metapneumovir PCR Not Detected (NotDetected) Influenza Type A (PCR) Not Detected (NotDetected) Influenza Type B (PCR) Not Detected (NotDetected) M. pneumoniae (PCR) Not Detected (NotDetected) Parainfluenza 1 (PCR) Not Detected (NotDetected) Parainfluenza 2 (PCR) Not Detected (NotDetected) Parainfluenza 3 (PCR) Not Detected (NotDetected) Parainfluenza 4 (PCR) Not Detected (NotDetected) RSV (PCR) Not Detected (NotDetected) Entero/Rhino (PCR) Not Detected (NotDetected) 10/30/22 10/30/22 10/30/22 Range/Units 22:37 22:37 21:22 WBC (4.8-10.8) K/ul RBC (4.70-6.10) M/uL Hgb (14.0-18.0) g/dl Hct (42.0-52.0) % MCV (80.0-100.0) fL MCH (25.0-34.0) pg MCHC (32.0-36.0) g/dL RDW Std Deviation (36.4-46.3) fL RDW Coeff of Giovana (11.5-14.5) % Plt Count (130-400) K/uL MPV (9.4-12.4) fL Immature Gran % (Auto) % Neut % (Auto) % Lymph % (Auto) % [place] % (Auto) % Eos % (Auto) % Baso % (Auto) % Neut # (Auto) (1.40-6.50) K/uL Lymph # (Auto) (1.2-3.4) K/uL [place] # (Auto) (0.11-0.59) K/uL Eos # (Auto) (0-0.50) K/uL Baso # (Auto) (0-0.2) K/uL Immature Gran # (Auto) (0.01-0.20) K/uL Hypersegmented Neuts Polychromasia Anisocytosis Schistocytes ESR 69 H (0-20) mm/hr Sodium (136-145) mmol/L Potassium (3.5-5.1) mmol/L Chloride (98-107) mmol/L Carbon Dioxide (21-32) mmol/L Anion Gap (3-11) BUN (6-23) mg/dl Creatinine (0.6-1.4) mg/dl Est Cr Clr Drug Dosing Est GFR ( Amer) ml/min Est GFR (Non-Af Amer) ml/min BUN/Creatinine Ratio (10-20) Glucose (70-99(Fasting)) mg/dl Lactate 1.0 (0.4-2.0) mmol/L Calcium (8.6-10.3) mg/dl Phosphorus (2.5-4.9) mg/dl Magnesium (1.7-2.4) mg/dl Total Bilirubin (0.2-1.0) mg/dl AST (13-39) U/L ALT (7-52) U/L Alkaline Phosphatase (34-104) U/L Troponin I High Sens (0-20) pg/ml Total Protein (6.0-8.3) gm/dl Albumin (3.4-5.0) gm/dl Globulin (2.5-4.0) gm/dl Albumin/Globulin Ratio (0.9-2) TSH (0.300-4.500) uIu/ml Urine Color Yellow Urine Appearance Clear (Clear) Urine pH 5.5 (4.5-7.5) Ur Specific [place] 1.019 (1.000-1.030) Urine Protein 1+ H (Negative) Urine Glucose (UA) Negative (Negative) Urine Ketones Negative (Negative) Urine Blood Negative (Negative) Urine Nitrite Negative (Negative) Urine Bilirubin Negative (Negative) Urine Urobilinogen Negative (Negative) Ur Leukocyte Esterase Negative (Negative) Urine WBC (Auto) 1-5 (0-5) /hpf Urine RBC (Auto) 0-4 (0-4) /hpf U Hyaline Cast (Auto) 0 (0-5) /lpf U Epithel Cells (Auto) 5-10 H (0-5) /lpf Urine Bacteria (Auto) Negative (Negative) Adenovirus (PCR) (NotDetected) B. pertussis DNA (PCR) (NotDetected) B.parapertussis DNA PCR (NotDetected) C. pneumoniae DNA (PCR) (NotDetected) Coronavirus OC43 (PCR) (NotDetected) Coronavirus HKU1 (PCR) (NotDetected) Coronavirus 229E (PCR) (NotDetected) SARS-CoV-2 (PCR) (NotDetected) Coronavirus NL63 (PCR) (NotDetected) Human Metapneumovir PCR (NotDetected) Influenza Type A (PCR) (NotDetected) Influenza Type B (PCR) (NotDetected) M. pneumoniae (PCR) (NotDetected) Parainfluenza 1 (PCR) (NotDetected) Parainfluenza 2 (PCR) (NotDetected) Parainfluenza 3 (PCR) (NotDetected) Parainfluenza 4 (PCR) (NotDetected) RSV (PCR) (NotDetected) Entero/Rhino (PCR) (NotDetected) 10/30/22 10/30/22 10/30/22 Range/Units 20:45 20:45 20:45 WBC 7.33 (4.8-10.8) K/ul RBC 3.31 L (4.70-6.10) M/uL Hgb 9.8 L (14.0-18.0) g/dl Hct 29.5 L (42.0-52.0) % MCV 89.1 (80.0-100.0) fL MCH 29.6 (25.0-34.0) pg MCHC 33.2 (32.0-36.0) g/dL RDW Std Deviation 65.5 H (36.4-46.3) fL RDW Coeff of Giovana 20.2 H (11.5-14.5) % Plt Count 252 (130-400) K/uL MPV 9.7 (9.4-12.4) fL Immature Gran % (Auto) 0.8 % Neut % (Auto) 66.0 % Lymph % (Auto) 14.9 % [place] % (Auto) 10.1 % Eos % (Auto) 6.7 % Baso % (Auto) 1.5 % Neut # (Auto) 4.84 (1.40-6.50) K/uL Lymph # (Auto) 1.09 L (1.2-3.4) K/uL [place] # (Auto) 0.74 H (0.11-0.59) K/uL Eos # (Auto) 0.49 (0-0.50) K/uL Baso # (Auto) 0.11 (0-0.2) K/uL Immature Gran # (Auto) 0.06 (0.01-0.20) K/uL Hypersegmented Neuts 1+ Polychromasia 1+ Anisocytosis Present Schistocytes ESR (0-20) mm/hr Sodium 136 (136-145) mmol/L Potassium 4.5 (3.5-5.1) mmol/L Chloride 97 L (98-107) mmol/L Carbon Dioxide 19 L (21-32) mmol/L Anion Gap 20 H (3-11) BUN 78 H (6-23) mg/dl Creatinine 11.54 H* (0.6-1.4) mg/dl Est Cr Clr Drug Dosing Not Reportable Est GFR ( Amer) 4.5 ml/min Est GFR (Non-Af Amer) 3.9 ml/min BUN/Creatinine Ratio 6.8 L (10-20) Glucose 82 (70-99(Fasting)) mg/dl Lactate (0.4-2.0) mmol/L Calcium 8.3 L (8.6-10.3) mg/dl Phosphorus (2.5-4.9) mg/dl Magnesium 2.0 (1.7-2.4) mg/dl Total Bilirubin 0.4 (0.2-1.0) mg/dl AST 8 L (13-39) U/L ALT 7 (7-52) U/L Alkaline Phosphatase 55 (34-104) U/L Troponin I High Sens 38.4 H (0-20) pg/ml Total Protein 6.1 (6.0-8.3) gm/dl Albumin 3.3 L (3.4-5.0) gm/dl Globulin 2.8 (2.5-4.0) gm/dl Albumin/Globulin Ratio 1.2 (0.9-2) TSH 2.124 (0.300-4.500) uIu/ml Urine Color Urine Appearance (Clear) Urine pH (4.5-7.5) Ur Specific [place] (1.000-1.030) Urine Protein (Negative) Urine Glucose (UA) (Negative) Urine Ketones (Negative) Urine Blood (Negative) Urine Nitrite (Negative) Urine Bilirubin (Negative) Urine Urobilinogen (Negative) Ur Leukocyte Esterase (Negative) Urine WBC (Auto) (0-5) /hpf Urine RBC (Auto) (0-4) /hpf U Hyaline Cast (Auto) (0-5) /lpf U Epithel Cells (Auto) (0-5) /lpf Urine Bacteria (Auto) (Negative) Adenovirus (PCR) (NotDetected) B. pertussis DNA (PCR) (NotDetected) B.parapertussis DNA PCR (NotDetected) C. pneumoniae DNA (PCR) (NotDetected) Coronavirus OC43 (PCR) (NotDetected) Coronavirus HKU1 (PCR) (NotDetected) Coronavirus 229E (PCR) (NotDetected) SARS-CoV-2 (PCR) (NotDetected) Coronavirus NL63 (PCR) (NotDetected) Human Metapneumovir PCR (NotDetected) Influenza Type A (PCR) (NotDetected) Influenza Type B (PCR) (NotDetected) M. pneumoniae (PCR) (NotDetected) Parainfluenza 1 (PCR) (NotDetected) Parainfluenza 2 (PCR) (NotDetected) Parainfluenza 3 (PCR) (NotDetected) Parainfluenza 4 (PCR) (NotDetected) RSV (PCR) (NotDetected) Entero/Rhino (PCR) (NotDetected) PG Care Time/CCT Total # of Minutes Spent Total Time Spent with Patient: Total time spent is greater than 50% in coordination of care (as documented) at patient's floor/unit and/or counseling patient: Coding Level of Care Code 21973 SUB INP/OBS CARE 2/35MIN Diagnoses AMS (altered mental status) R41.82 End-stage renal disease on peritoneal dialysis N18.6; Z99.2 PTSD (post-traumatic stress disorder) F43.10 Pulmonary emphysema J43.9 Hx of atrial flutter Z86.79 Seizure disorder G40.909 Ambulatory dysfunction R26.2 Intracranial hemorrhage I62.9 History of cerebral aneurysm repair Z98.890; Z86.79 HTN (hypertension) I10 Hypertension type: unspecified Alzheimer disease G30.9; F02.80 Secondary hyperparathyroidism (of renal origin) N25.81 Anemia D64.9 Anemia type: unspecified type Pulmonary nodules R91.8 (10) HTN (hypertension) Hypertension type: unspecified Qualified Code(s): I10 - Essential (primary) hypertension (13) Anemia Anemia type: unspecified type Qualified Code(s): D64.9 - Anemia, unspecified
[2022-10-31] MEDS ORDERED: OLANZAPINE 2.5 MG TAB PO SCH (21:00)
[2022-11-01] MEDS ORDERED: MELATONIN 3 MG TAB PO PRN (01:03)
[2022-11-01 07:13] LABS: Basophils # (auto) 0.06 K/uL (0-0.2); Basophils % (auto) 0.9 %; Eosinophils # (auto) 0.46 K/uL (0-0.50); Eosinophils % (auto) 6.6 %; Hematocrit (blood only) 27.1 % (42.0-52.0); Immature Granulocytes # (auto) 0.03 K/uL (0.01-0.20); Immature Granulocytes % (auto) 0.4 %; Lymphocytes # (auto) 0.88 K/uL (1.2-3.4); Lymphocytes % (auto) 12.6 %; Mean Corpuscular Hemoglobin 29.3 pg (25.0-34.0); Mean Corpuscular Hgb Conc 33.2 g/dL (32.0-36.0); Mean Corpuscular Volume 88.3 fL (80.0-100.0); Mean Platelet Volume 9.3 fL (9.4-12.4); Monocytes # (auto) 0.83 K/uL (0.11-0.59); Monocytes % (auto) 11.9 %; Neutrophils # (auto) 4.72 K/uL (1.40-6.50); Neutrophils % (auto) 67.6 %; Platelet Count 194 K/uL (130-400); RDW Standard Deviation 65.3 fL (36.4-46.3); Red Blood Count 3.07 M/uL (4.70-6.10); White Blood Count 6.98 K/ul (4.8-10.8)
[2022-11-01] MEDS: ALBUT/IPRATROP 3MG/0.5MG NEB 3 ML VIAL INH SCH ×2 (07:15→19:41)
[2022-11-01 07:32] LABS: BUN Creatinine Ratio 6.9 (10-20); Calcium 8.3 mg/dl (8.6-10.3); Creatinine Clr Calc Pharmacy 7.1 ml/min; Est GFR (African American) 5.1 ml/min; Est GFR (Non-African American) 4.4 ml/min; Magnesium 1.8 mg/dl (1.7-2.4); Phosphorus 6.7 mg/dl (2.5-4.9); Potassium 3.6 mmol/L (3.5-5.1)
[2022-11-01 07:48] LABS: Ferritin 656.4 ng/ml (8-388)
[2022-11-01] MEDS: AMIODARONE 200 MG TAB PO SCH (08:28)
[2022-11-01] MEDS: levETIRAcetam 250 MG TAB PO SCH (08:28)
[2022-11-01] MEDS: CALCITRIOL 0.25 MCG CAPSULE PO SCH (08:28)
[2022-11-01] MEDS: guaiFENesin 600 MG TABCR PO SCH ×2 (08:28→21:25)
[2022-11-01] MEDS: CINACALCET HCL 30 MG TAB PO SCH (08:28)
[2022-11-01] MEDS: UMECLIDINIUM/VILANTEROL 62.5/25MCG 7 PUFFS/INHALER INH SCH (08:29)
[2022-11-01] MEDS: HEPARIN SOD 5,000 UNIT/0.5 ML VIAL SQ SCH ×2 (08:29→21:26)
[2022-11-01] MEDS: DOCUSATE SODIUM 100 MG CAP PO SCH ×2 (08:29→21:26)
[2022-11-01] MEDS: amLODIPine BESYLATE 5 MG TAB PO SCH (08:30)
--- NOTE | 2022-11-01 10:04 | Hospitalist Progress Note ---
Date of Service November 01, 2022 Assessment & Plan (1) AMS (altered mental status): Plan: - Presented with worsening altered mental status x 24 hours at home. AMS persists this morning with increased lethargy. - Granddaughter reports that patient is independent, able to care for himself at home on a routine basis. - Does have a history of Alzheimer's disease - U/a was negative; CXR neg for PNA. - Head CT 10/30 with on acute intracranial process. Recommended repeating CT brain on 11/01 to evaluate for acute changes, as he did not have initial changes on CT head in the past with intracranial hemorrhage. - He has not completed at home dialysis for 2 days upon admission. This was resumed last evening. Nephrology is following. Creatinine this morning noted to be 10.37. - Benadryl 50 mg qhs held to evaluate for improvement. - Granddaughter does report that patient has not been taking Keppra as prescribed, Keppra level is pending. - ? Insomnia leading to confusion - Zyprexa 2.5 mg initiated last evening.---patient with lethargy this AM. CT repeated and negative for acute abnormalities with no evidence of hemorrhage or acute infarct. Hold Zyprexa as a possible contributor to excessive somnolence today.---somnolence improved this afternoon. Plan for EEG, lumbar puncture, and neurology consult tomorrow. - PT/OT consult to evaluate for discharge planning. - Of note, he was admitted in August/2022 for leg weakness - CT head and spine imaging all negative. CPK, B12, Lyme negative. Neurology evaluated with negative work up. Hypocalcemia and sinus bradycardia were likely contributing to weakness during admission. (2) End-stage renal disease on peritoneal dialysis: Plan: - Receives peritoneal dialysis at home; resumed last evening after a 2 day hiatus. Cr of 10.37 this morning. - Nephrology following. - Monitor daily labs, renally dose all meds. (3) PTSD (post-traumatic stress disorder): Plan: - Stable (4) Pulmonary emphysema: Plan: - Continue supportive care, on room air. (5) Hx of atrial flutter: Plan: - Does not take anticoagulation due to h/o ICH from aneurysm. - Remains on Amiodarone. (6) Seizure disorder: Plan: - Myoclonic jerking noted during admission in August/2022, neurology recommended discontinuing Gabapentin and starting Keppra 250 mg daily. - His granddaughter reports patient has not been taking Keppra, Keppra level is pending. - Plan for EEG and neurology consultation tomorrow due to increased somnolence and lethargy today (although resolved this afternoon). ? related to Zyprexa (7) Ambulatory dysfunction: Plan: - ? etiology, PT/OT consulted. - Recent spinal imaging in August/2022 negative. (8) Intracranial hemorrhage: Plan: - August/2012, [facility], [place]. 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 Of note, clip is MRI compatible if MRI is required. - CT head neg on admission, repeat 11/01 negative as well - Anticoagulation contraindicated. (9) History of cerebral aneurysm repair: Plan: As above (10) Secondary hyperparathyroidism: Plan: - renal origin - continue home meds (11) Pulmonary nodules: Plan: - Irregular bilateral upper lobe opacities noted on CT T spine August/2022. - Recommend follow up CT chest as outpatient. Plan - Hgb decreased to 9.0 today, prior baseline >11 gm/dL. - Anemia of renal insufficiency vs. other---iron normal at 41 and ferritin e levated at 656.4. - Monitor Admission and Anticipated Discharge Date Admission Date: October 31, 2022 Subjective 72 year old male admitted for altered mental status. Patient noted to be more lethargic today. Sleeping upon my arrival. He was arousable, able to state correct name and location, but unable to stay awake. He is scheduled for repeat CT of the head today. Review of Systems Review of Systems: Unobtainable due to cognitive status Physical Exam Physical Exam: Patient lethargic, sleeping during the visit. Arousable to answer name and location, but unable to stay awake. Constitutional: average body habitus and + lethargic ENMT: Ears: no hearing impairment Neck: normal visual inspection Respiratory: normal respiratory effort, lungs clear to auscultation Cardiovascular: Rate/Rhythm: regular rate and regular rhythm Gastrointestinal (Abdomen): Inspection/Auscultation: normal bowel sounds Percussion/Palpation: abdomen soft; abdomen nontender Musculoskeletal: Head/Neck/Chest: normocephalic and head atraumatic Psychiatric: Orientation: oriented to person and oriented to place Results & Data Results & Data Vital Signs (Past 12 Hours) Vital Signs Temp Pulse Pulse Pulse Resp BP Pulse Ox 11/01/22 08:50 36.5 C 74 18 11/01/22 07:31 73 11/01/22 07:29 36.5 C 74 18 183/88 H 97 11/01/22 07:17 76 18 96 11/01/22 04:00 36.4 C L 79 18 177/88 H 94 11/01/22 00:23 72 10/31/22 23:00 36.5 C 81 19 183/80 H 94 O2 Del Method 11/01/22 08:50 11/01/22 07:31 11/01/22 07:29 Room Air 11/01/22 07:17 Room Air 11/01/22 04:00 Room Air 11/01/22 00:23 10/31/22 23:00 Room Air PG Care Time/CCT Total # of Minutes Spent Total Time Spent with Patient: Total time spent is greater than 50% in coordination of care (as documented) at patient's floor/unit and/or counseling patient: Coding Level of Care Code 39215 SUB INP/OBS CARE 2/35MIN Diagnoses AMS (altered mental status) R41.82 End-stage renal disease on peritoneal dialysis N18.6; Z99.2 PTSD (post-traumatic stress disorder) F43.10 Pulmonary emphysema J43.9 Hx of atrial flutter Z86.79 Seizure disorder G40.909 Ambulatory dysfunction R26.2 Intracranial hemorrhage I62.9 History of cerebral aneurysm repair Z98.890; Z86.79 Secondary hyperparathyroidism N25.81 Pulmonary nodules R91.8
--- NOTE | 2022-11-01 13:33 | CT Scan Report ---
CT head/brain wo con CLINICAL HISTORY: Re-eval for changes, h/o intracranial hemorrhage Technique: Contiguous axial CT images of the head were acquired from the base of the skull to the neena yesenia without intravenous contrast administration. Images were viewed in brain, subdural and bone [facility]. Automated dose lowering techniques and/or adjustment according to patient size were utilized for this exam. Comparison: Comparison is made to CT head 10/30/2022 Findings: Bilateral frontal hypodensities are unchanged from prior exam likely reflecting chronic encephalomala roberta. No acute abnormalities are seen. Postsurgical changes are again seen in the left frontotemporal region. Imaged portions of the paranasal sinuses and mastoid air cells are clear. The orbits appear normal. There are no acute fractures of the calvaria or scalp swelling. Impression: No acute abnormalities and in particular no evidence of hemorrhage or acute infarct. ACT 112: Negative or not required by law. Electronically signed by: Arthur Taylor M.D. 11/01/2022 1:32 PM
[2022-11-01] MEDS: POLYETHYLENE (MIRALAX) 17 GM PACK PO SCH ×2 (14:17→21:24)
--- NOTE | 2022-11-01 15:24 | Nephrology Progress Note ---
Date of Service November 01, 2022 Assessment & Plan (1) End-stage renal disease on peritoneal dialysis: Plan: CCPD nightly: 5 exchanges or 3000 ml, 80 minute dwell time. EDW 74 kg. Tolerating treatments well. Orders for tonight have been entered into the EHR and reviewed with the county superintendent of schools. Clearance acceptable. Volume status controlled. Medications appropriately dosed for PD. Monitor metabolic profile daily while inpatient. Document daily weight. Renal diet. (2) Polycystic kidney disease, adult type: Plan: Records reviewed. Denies symptomatic enlargement. (3) History of cerebral aneurysm repair: Plan: s/p craniotomy and clipping MCA 2012. (4) Ambulatory dysfunction: Admission and Anticipated Discharge Date Admission Date: October 31, 2022 Abraham Laird was seen and evaluated with his daughter (Nancy) and granddaughter (Leti) at the bedside this afternoon. Unfortunately, he continues to struggle with confusion. Symptoms appear to wax and wane. Concerning behaviors include calling and texting overnight and incomprehensible communication. However, Sisi states that he slept well last night. He had a few hours of quality sleep with Zyprexa. Unfortunately, since Wednesday, he has been struggling with persistent overall change in mental status from baseline. He tolerated HD well. No complications with treatment reported. No fevers or chills. Denies abdominal pain. Denies co nstipation. Appetite fair. No chest pain or palpitations. Mild persistent tremor. Review of Systems Review of Systems: All systems reviewed & are unremarkable except as noted in HPI & below Physical Exam Constitutional: well developed and + thin; no acute distress Eyes: + anicteric sclerae; no corneal abnormality Neck: normal visual inspection and trachea midline Respiratory: normal respiratory effort Auscultation: lungs clear to auscultation bilaterally Cardiovascular: Rate/Rhythm: regular rate Extremities: no edema Musculoskeletal: Extremities: no cyanosis and no clubbing Skin: + turgor decreased; no jaundice Neurologic: Motor/Sensory: no tremor and no asterixis Psychiatric: Orientation: alert and oriented x 3 Results & Data Vital Signs (Past 12 Hours) Vital Signs Temp Pulse Pulse Pulse Resp BP Pulse Ox 11/01/22 11:00 36.7 C 76 18 167/77 H 95 11/01/22 08:50 36.5 C 74 18 11/01/22 07:31 73 11/01/22 07:29 36.5 C 74 18 183/88 H 97 11/01/22 07:17 76 18 96 11/01/22 04:00 36.4 C L 79 18 177/88 H 94 O2 Del Method 11/01/22 11:00 Room Air 11/01/22 08:50 11/01/22 07:31 11/01/22 07:29 Room Air 11/01/22 07:17 Room Air 11/01/22 04:00 Room Air Laboratory Results Laboratory Results - last 24 hr 11/01/22 11/01/22 11/01/22 06:39 06:39 06:39 WBC 6.98 RBC 3.07 L Hgb 9.0 L Hct 27.1 L MCV 88.3 MCH 29.3 MCHC 33.2 RDW Std Deviation 65.3 H RDW Coeff of Giovana 20.0 H Plt Count 194 MPV 9.3 L Immature Gran % (Auto) 0.4 Neut % (Auto) 67.6 Lymph % (Auto) 12.6 Preston % (Auto) 11.9 Eos % (Auto) 6.6 Baso % (Auto) 0.9 Neut # (Auto) 4.72 Lymph # (Auto) 0.88 L Preston # (Auto) 0.83 H Eos # (Auto) 0.46 Baso # (Auto) 0.06 Immature Gran # (Auto) 0.03 Sodium 136 Potassium 3.6 Chloride 97 L Carbon Dioxide 24 Anion Gap 15 H BUN 72 H Creatinine 10.37 H* D Est Cr Clr Drug Dosing 7.1 Est GFR ( Amer) 5.1 Est GFR (Non-Af Amer) 4.4 BUN/Creatinine Ratio 6.9 L Glucose 128 H Calcium 8.3 L Phosphorus 6.7 H Magnesium 1.8 Iron 41 Unsaturated IBC 122 L Ferritin 656.4 H Albumin 3.0 L Vitamin B12 Folate Levetiracetam 11/01/22 11/01/22 06:39 06:39 WBC RBC Hgb Hct MCV MCH MCHC RDW Std Deviation RDW Coeff of Giovana Plt Count MPV Immature Gran % (Auto) Neut % (Auto) Lymph % (Auto) Preston % (Auto) Eos % (Auto) Baso % (Auto) Neut # (Auto) Lymph # (Auto) Preston # (Auto) Eos # (Auto) Baso # (Auto) Immature Gran # (Auto) Sodium Potassium Chloride Carbon Dioxide Anion Gap BUN Creatinine Est Cr Clr Drug Dosing Est GFR ( Amer) Est GFR (Non-Af Amer) BUN/Creatinine Ratio Glucose Calcium Phosphorus Magnesium Iron Unsaturated IBC Ferritin Albumin Vitamin B12 742 Folate 6.70 Levetiracetam Pending PG Care Time/CCT Total # of Minutes Spent Total Time Spent with Patient: Total time spent is greater than 50% in coordination of care (as documented) at patient's floor/unit and/or counseling patient: Coding Level of Care Code 56124 SUB INP/OBS CARE 3/50MIN Diagnoses End-stage renal disease on peritoneal dialysis N18.6; Z99.2 Polycystic kidney disease, adult type Q61.2 History of cerebral aneurysm repair Z98.890; Z86.79 Ambulatory dysfunction R26.2
[2022-11-01] MEDS ORDERED: THIAMINE HCL 200 MG in SODIUM CHLORIDE 0.9% 50 ML IV STA (16:07)
[2022-11-01] MEDS ORDERED: hydrOXYzine HCl 25 MG TAB PO PRN (18:36)
--- NOTE | 2022-11-01 20:17 | Electrocardiogram Report ---
Test Reason : Blood Pressure : / mmHG Vent. Rate : 076 BPM Atrial Rate : 076 BPM P-R Int : 266 ms QRS Dur : 128 ms QT Int : 478 ms P-R-T Axes : 076 041 083 degrees QTc Int : 537 ms Poor data quality, interpretation may be adversely affected Sinus rhythm with 1st degree A-V block Non-specific intra-ventricular conduction block Abnormal ECG When compared with ECG of 31-AUG-2022 08:19, Sinus rhythm is now Present Confirmed by Quinn Stokes ([id number]) on 11/01/2022 8:17:28 PM Referred By: REFERRED SELF Confirmed By:Quinn Stokes
[2022-11-01] MEDS: QUEtiapine FUMARATE 25 MG TABLET PO SCH (21:25)
[2022-11-01] MEDS: MELATONIN 3 MG TAB PO SCH (21:26)
[2022-11-02] MEDS: ALBUT/IPRATROP 3MG/0.5MG NEB 3 ML VIAL INH SCH ×2 (07:27→19:54)
[2022-11-02 08:06] LABS: Basophils # (auto) 0.05 K/uL (0-0.2); Basophils % (auto) 0.8 %; Eosinophils # (auto) 0.41 K/uL (0-0.50); Eosinophils % (auto) 6.3 %; Hematocrit (blood only) 29.4 % (42.0-52.0); Hemoglobin 9.6 g/dl (14.0-18.0); Immature Granulocytes # (auto) 0.04 K/uL (0.01-0.20); Immature Granulocytes % (auto) 0.6 %; Lymphocytes # (auto) 0.79 K/uL (1.2-3.4); Lymphocytes % (auto) 12.1 %; Mean Corpuscular Hemoglobin 29.2 pg (25.0-34.0); Mean Corpuscular Hgb Conc 32.7 g/dL (32.0-36.0); Mean Corpuscular Volume 89.4 fL (80.0-100.0); Mean Platelet Volume 9.7 fL (9.4-12.4); Monocytes # (auto) 0.84 K/uL (0.11-0.59); Monocytes % (auto) 12.9 %; Neutrophils # (auto) 4.38 K/uL (1.40-6.50); Neutrophils % (auto) 67.3 %; Platelet Count 163 K/uL (130-400); RDW Coefficient of Variation 19.9 % (11.5-14.5); RDW Standard Deviation 65.5 fL (36.4-46.3); Red Blood Count 3.29 M/uL (4.70-6.10); White Blood Count 6.51 K/ul (4.8-10.8)
[2022-11-02] MEDS: AMIODARONE 200 MG TAB PO SCH (08:24)
[2022-11-02] MEDS: amLODIPine BESYLATE 5 MG TAB PO SCH (08:24)
[2022-11-02] MEDS: CALCITRIOL 0.25 MCG CAPSULE PO SCH (08:25)
[2022-11-02] MEDS: DOCUSATE SODIUM 100 MG CAP PO SCH ×2 (08:26→20:01)
[2022-11-02] MEDS: guaiFENesin 600 MG TABCR PO SCH ×2 (08:26→20:02)
[2022-11-02] MEDS: CINACALCET HCL 30 MG TAB PO SCH (08:26)
[2022-11-02] MEDS: THIAMINE HCL 100 MG TAB PO SCH (08:27)
[2022-11-02] MEDS: levETIRAcetam 250 MG TAB PO SCH (08:27)
[2022-11-02] MEDS: HEPARIN SOD 5,000 UNIT/0.5 ML VIAL SQ SCH ×2 (08:27→20:02)
[2022-11-02] MEDS: UMECLIDINIUM/VILANTEROL 62.5/25MCG 7 PUFFS/INHALER INH SCH (08:28)
[2022-11-02] MEDS: POLYETHYLENE (MIRALAX) 17 GM PACK PO SCH ×2 (08:29→20:03)
[2022-11-02 08:33] LABS: BUN Creatinine Ratio 6.4 (10-20); Calcium 8.6 mg/dl (8.6-10.3); Creatinine Clr Calc Pharmacy 7.5 ml/min; Est GFR (African American) 5.5 ml/min; Est GFR (Non-African American) 4.7 ml/min; Magnesium 1.8 mg/dl (1.7-2.4); Potassium 3.6 mmol/L (3.5-5.1)
--- NOTE | 2022-11-02 10:28 | Neurology Consultation ---
Date of Consultation November 02, 2022 Assessment & Plan (1) AMS (altered mental status): (2) Asterixis: (3) History of cerebral aneurysm repair: (4) Tremor: (5) End-stage renal disease on peritoneal dialysis: Plan patient was admitted with a history of new onset confusion over several days worsening each day. There was sleep deprivation and lack of regular medication usage or peritoneal dialysis. Currently, he seems fairly intact mentally although he seems somewhat flat affect me. He is answering questions well and has no aphasia or focal neurologic findings. He has no meningeal signs and is not delirious. I suspect that he worsened quickly when not taking medicines or using his peritoneal dialysis. Even with dialysis in hospital, his BUN and creatinine are markedly elevated. in addition, he may have an early, underlying dementia from chronic vascular disease or chronic alcohol use in the past. he had what was described as myoclonic jerking in August. According to his granddaughter, levetiracetam did help but he has not been taking it. On examination I did not see any tremor but I did see asterixis. This would be from his renal disease. He has no hepatic disease. An EEG was obtained today and showed Focal slowing in the right fronto central temporal head region, which could indicate a structural abnormality in that location. No potentially epileptogenic discharges were seen. My drug of choice for myoclonic jerking would be valproic acid, although levetiracetam is indicated. 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 Apparently this clip is supposed to be MRI compatible, although there is some concern. It would be very unusual to put an aneurysm clip in that was not MRI compatible in the year 2012. Recommendations: 1. consider either continuing levetiracetam ( 250 milligram immediate release twice daily, or, as an outpatient, 500 milligram ER once daily ) or switch to valproic acid ER 500 milligrams once daily. 2. consider hemodialysis instead of peritoneal dialysis 3. this patient will need home health to ensure proper medication taking on a regular basis. 4. MRI of the brain would be Indicated, particularly with the focal findings on EEG. Check with [facility] to see if his particular clip is MRI compatible 5. Increase activity as able. Overall, I spent a total of 90 minutes with this case including review of records, review of CT films, report generation, direct evaluation the patient at bedside, and discussion of the case with patient at bedside and Dr. Peoples, including differential diagnosis and treatment options. History of Present Illness Reason for Consultation: Patient is a 72-year-old, who I was asked to see at the request of Dr. Peoples, for neurologic evaluation regarding altered mental status and abnormal involuntary movements. Requesting Physician: Dr. Peoples. Attending Physician: Malachi Peoples MD History of Present Illness The patient has a history of end-stage renal disease ( polycystic kidneys) on peritoneal dialysis for about 5 years. He does this overnight each night. He also has a history of a left middle cerebral artery aneurysm repair at [facility] in 2012. 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 he has a history of COPD. In August of this year, he was seen by Neurology for abnormal leg weakness and involuntary movements that seemed to be myoclonic jerks. He was initiated on gabapentin but this was discontinued. Dr. Fletcher initiated him on levetiracetam September 04. he had been doing very well on this, with less jerking and shaking. The patient has been living with his granddaughter, Leti, and usually he does very well and is interactive. starting October 28 the patient has been doing a little bit worse. On October 29 he was found at 4 p.m. to be just getting out and he was acting a little confused. That night he apparently never went to bed and never took dialysis. When he was checked on he was more confused and he was brought to the emergency room on October 30. He was described as confused with no focal neurologic findings. Laboratory studies revealed a mild anemia and an elevated BUN and creatinine ( 78 and 11.5). Lactate was normal as was urinalysis and a bio fire. TSH was normal. CT scan of the head was unremarkable and I reviewed this film. He has postop changes in the left frontotemporal head region He was continued on peritoneal dialysis and his BUN and creatinine are improved to 63 and 9.8. The patient's granddaughter states that he is much better in the morning and gets more confused by the end of the day. There is concern the peritoneal dialysis is not adequate any longer. today's hemoglobin hematocrit were 9.6 and 29.4 ( similar to admission) Currently he has no pain or headaches. He feels weak all over. He says he gets some abnormal shakes. Repeat CT scan of the head November 01 was unchanged. B12 and folate were unremarkable. Allergies Allergy/AdvReac Type Severity Reaction Status Date / Time lisinopril AdvReac Mild COUGH Verified 10/31/22 00:40 Home Medications Medication Instructions Recorded Confirmed Type tiotropium 2.5 mcg-olodaterol 2.5 2 puff inhalation QAM #4 grams 02/18/21 10/31/22 Rx mcg/actuation mist for inhalation (Stiolto Respimat) calcitriol 0.5 mcg capsule 1 mcg PO QAM 06/30/21 10/31/22 History polyethylene glycol 3350 17 17 g PO BID 06/30/21 10/31/22 History gram/dose oral powder (Miralax) docusate sodium 100 mg capsule 400 mg PO BID 07/31/21 10/31/22 History (Colace) cinacalcet 30 mg tablet (Sensipar) 30 mg PO DAILY 03/27/22 10/31/22 History guaifenesin 1,200 mg tablet, 1,200 mg PO BID 03/27/22 10/31/22 History extended release 12 hr (Mucinex) acetaminophen 650 mg 1,300 mg PO Q12H 08/29/22 10/31/22 History tablet,extended release albuterol sulfate 90 mcg/actuation 2 inh inhalation Q6H PRN shortness 08/29/22 10/31/22 History aerosol inhaler (ProAir HFA) of breath or wheezing amiodarone 200 mg tablet 200 mg PO DAILY 08/29/22 10/31/22 History epinephrine 0.3 mg/0.3 mL 0.3 mg IM Q4H PRN as directed 08/29/22 10/31/22 History injection, auto-injector (EpiPen) ipratropium 0.5 mg-albuterol 3 mg 3 ml inhalation BID 08/29/22 10/31/22 History (2.5 mg base)/3 mL nebulization soln amlodipine 2.5 mg tablet 2.5 mg PO DAILY #30 tabs 09/06/22 10/31/22 Rx ferric citrate 210 mg iron tablet 420 mg PO TIDWMEAL #1 tab 09/06/22 10/31/22 Rx (Auryxia) levetiracetam 250 mg tablet 250 mg PO QAM #10 tabs 09/06/22 10/31/22 Rx (Keppra) diphenhydramine HCl 25 mg capsule 50 mg PO DAILY 10/31/22 10/31/22 History (Benadryl) Patient History Medical History Alzheimer disease Anemia Benign neoplasm of skin of nose removed once Benign prostate hyperplasia Bradycardia CCPD (continuous cycling peritoneal dialysis) status port in place left abdomen--dialysis daily at home; second port that has been placed for dialysis. Chronic obstructive pulmonary disease inhaler/nebulizer daily COPD (chronic obstructive pulmonary disease) Diverticulosis End-stage renal disease on peritoneal dialysis Gout hx Hemorrhoids "not currently flared" History of marijuana use daily HTN (hypertension) Hx of atrial flutter 06/2021, hospitalized w/pneumonia for almost 3 weeks; dx atrial flutter- currently amiodarone; f/u dr. adkins, tx Hypercalcemia Hypertension Intracranial hemorrhage 2012 Low back pain Myoclonic jerking On home oxygen therapy 2L N/C at hs PAF (paroxysmal atrial fibrillation) Paroxysmal atrial flutter Polycystic kidney disease, adult type (09/03/12) Ruptured middle cerebral artery aneurysm Secondary hyperparathyroidism (of renal origin) Secondary hyperparathyroidism of renal origin Seizure disorder Tremor of both hands Vitamin D deficiency Surgical History History of cerebral aneurysm repair 2012 [facility] [place]--clip in place; clip IS MRI COMPATIBLE History of colonoscopy History of tooth extraction all teeth Family History Mother , age 65 of cancer Cancer Father , age 60 from a tree falling on him No problems noted. 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) Hx Substance Use: No Preferred Language: Honduran Communication Ability: Impaired Communication Ability Comment: pt can sign own consent Commercial Announcer Required: No Beliefs That Will Affect Care: None marital status: Single Current Living Situation: Family Current Living Situation Comment: lives w/ grandvelvet, her & kids How many Children do You have: 1 Other Information That Helps Us Care for You: No Feels Safe at Home: Yes Safety Concerns: Feels Safe At This Time Assistive Devices: None Assistive Devices Comment: states he has home oxygen for bedtime but does not use it Review of Systems Constitutional: + fatigue and + weakness; no fever Eyes: no diplopia, no eye pain and no worsening vision Ear, Nose, Mouth, Throat: no ear pain, no tinnitus, no hearing loss, no dizziness, no snoring, no hoarseness and no dysphagia Respiratory: no cough and no dyspnea Cardiovascular: no chest pain, no palpitations and no lightheadedness Gastrointestinal: no abdominal pain, no nausea and no vomiting Musculoskeletal: no back pain, no neck pain, no radicular pain, no joint pain and no myalgia Integumentary: no rash and no lesions Neurologic: no gait abnormality, no localized weakness, no generalized weakness, no tingling, no numbness, no tremor(s), no abnormal movements, no headache(s), no abnormal speech, no confusion and no memory loss Psychiatric: no depression, no irritability, no anxiety, no difficulty concentrating, no confusion and no hallucinations Endocrine: no fatigue and no flushing Hematologic / Lymphatic: no easy bleeding and no easy bruising Allergy / Immunological: no urticaria and no problem reported Exam (Neuro) Physical Exam: The patient is right-handed. The patient is awake, alert, and attentive. Speech is normal without any aphasia or dysarthria. The patient can name objects, repeat phrases, and has normal spontaneous speech. Mentation and thought processes are intact, with orientation to person, place and time, and normal fund of knowledge. Attention and concentration are normal. mood seemed reasonable but affect was somewhat flat. He did not speak unless spoken to, but when asked questions he did answer them quite well. General appearance and grooming are normal. Short and long- term memory seemed reasonably intact with conversation. Pupils are 2 mm bilaterally and reactive to light. Extraocular eye muscles are intact without nystagmus. Visual acuity and visual munson seem normal grossly to confrontation. There are no deficits to sensation in the face in all 3 distributions of the fifth cranial nerve bilaterally. Corneal reflexes are positive bilaterally. Facial strength and symmetry was normal bilaterally. Hearing seems normal bilaterally. Palate moves well without asymmetry. There is normal sternocleidomastoid and trapezius (shoulder shrug) strength bilaterally. Tongue is midline with good strength bilaterally. Neck has a full range of motion without discomfort. There are no cervical bruits bilaterally. There are no cranial or ocular bruits. Heart is without murmur. There is a regular rhythm and rate. Cervical, thoracic, and lumbar spine are nontender to palpation. Gait is narrow based, with good arm swing, turns, and stance. Stance sitting in bed was normal as well. With outstretched arms there is no drift. There are no resting, postural, or action tremors. However, the patient had asterixis with outstretched arms bilaterally. There is no ataxia with finger to nose testing. There is good facility in the hands. No other abnormal involuntary movements are noted. Motor strength is 5/5 diffusely in the arms bilaterally including deltoids, biceps, triceps, brachioradialis, wrist flexors and extensors, electrical tester, and intrinsic hand muscles. Motor strength is 5/5 diffusely in the legs bilaterally including hip flexors, quadriceps, hamstrings, gastrocnemius, tibialis anterior, tibialis posterior, and Peroneii muscles. Toe extensors are normal and there is good bulk in the extensor digitorum brevis muscles bilaterally. The limbs have good tone without rigidity or spasticity. There is no atrophy noted in the muscles. Muscle bulk is normal, there is no tenderness to palpation, no myotonia to percussion, and no fasciculations seen. Sensory examination is intact to touch and pin throughout all 4 limbs diffusely. Reflexes are 1/4 in the biceps, triceps, brachioradialis, quadriceps, and Achilles tendons bilaterally. There is no clonus bilaterally. Toes are downgoing with plantar stimulation bilaterally. Peripheral pulses are present and of normal quality distally in all 4 limbs. There is no peripheral edema noted in the limbs. Results & Data Vital Signs (Past 12 Hours) Vital Signs Temp Pulse Pulse Pulse Resp BP Pulse Ox 11/02/22 07:51 36.4 C L 54 L 20 180/86 H 95 11/02/22 07:27 71 18 94 11/02/22 06:01 81 11/02/22 04:17 36.6 C 79 18 149/77 H 95 11/02/22 02:58 82 11/02/22 02:04 11/01/22 23:30 36.7 C 82 18 153/78 H 94 O2 Del Method 11/02/22 07:51 Room Air 11/02/22 07:27 Room Air 11/02/22 06:01 11/02/22 04:17 Room Air 11/02/22 02:58 11/02/22 02:04 Room Air 11/01/22 23:30 Room Air PG Care Time/CCT Total # of Minutes Spent Total Time Spent with Patient: Total time spent is greater than 50% in coordination of care (as documented) at patient's floor/unit and/or counseling patient: Coding Level of Care Code 75491 INT INP/OBS CARE 3/75MIN Diagnoses AMS (altered mental status) R41.82 Asterixis R27.8 History of cerebral aneurysm repair Z98.890; Z86.79 Tremor R25.1 End-stage renal disease on peritoneal dialysis N18.6; Z99.2 Time Spent (min) 90
--- NOTE | 2022-11-02 10:43 | Nephrology Progress Note ---
Date of Service November 02, 2022 Assessment & Plan (1) End-stage renal disease on peritoneal dialysis: Plan: CCPD nightly: 5 exchanges x 3000 ml, 80 minute dwell time. EDW 74 kg. Tolerating treatments well. Orders for tonight have been entered into the EHR and reviewed with the rod filler. Clearance acceptable. Volume status controlled. Medications appropriately dosed for PD. Monitor metabolic profile daily while inpatient. Document daily weight. Renal diet. (2) Polycystic kidney disease, adult type: Plan: Records reviewed. Denies symptomatic enlargement. (3) History of cerebral aneurysm repair: Plan: s/p craniotomy and clipping [facility] 2012. (4) Ambulatory dysfunction: Plan: I discussed the case with Dr. Villanueva this morning. Potential conversion from Keppra to Depakote. Admission and Anticipated Discharge Date Admission Date: October 31, 2022 Subjective No acute events overnight. Tolerated PD without complications. Reports improved sleep quality. Resting comfortably in bed this AM. No BM today but denies feeling constipated. Overall, Sisi feels well. Denies fluid retention or edema. Review of Systems Review of Systems: All systems reviewed & are unremarkable except as noted in HPI & below Constitutional: + weakness Physical Exam Constitutional: well developed and + thin; no acute distress Eyes: + anicteric sclerae; no corneal abnormality ENMT: Mouth: no oral mucosal abnormality and oral mucous membranes not dry Neck: normal visual inspection and trachea midline Respiratory: normal respiratory effort Auscultation: lungs clear to auscultation bilaterally Cardiovascular: Rate/Rhythm: regular rate Heart Sounds: normal S1, normal S2 and + murmur Extremities: no edema Gastrointestinal (Abdomen): Inspection/Auscultation: + abdomen distended and normal bowel sounds Percussion/Palpation: abdomen soft; abdomen nontender Musculoskeletal: Extremities: no cyanosis and no clubbing Skin: + turgor decreased; no jaundice Neurologic: Motor/Sensory: no tremor and no asterixis Psychiatric: Orientation: alert and oriented x 3 Results & Data Vital Signs (Past 12 Hours) Vital Signs Temp Pulse Pulse Pulse Resp BP Pulse Ox 11/02/22 07:51 36.4 C L 54 L 20 180/86 H 95 11/02/22 07:27 71 18 94 11/02/22 06:01 81 11/02/22 04:17 36.6 C 79 18 149/77 H 95 11/02/22 02:58 82 11/02/22 02:04 11/01/22 23:30 36.7 C 82 18 153/78 H 94 O2 Del Method 11/02/22 07:51 Room Air 11/02/22 07:27 Room Air 11/02/22 06:01 11/02/22 04:17 Room Air 11/02/22 02:58 11/02/22 02:04 Room Air 11/01/22 23:30 Room Air Laboratory Results Laboratory Results - last 24 hr 11/02/22 11/02/22 07:47 07:47 WBC 6.51 RBC 3.29 L Hgb 9.6 L Hct 29.4 L MCV 89.4 MCH 29.2 MCHC 32.7 RDW Std Deviation 65.5 H RDW Coeff of Giovana 19.9 H Plt Count 163 MPV 9.7 Immature Gran % (Auto) 0.6 Neut % (Auto) 67.3 Lymph % (Auto) 12.1 [place] % (Auto) 12.9 Eos % (Auto) 6.3 Baso % (Auto) 0.8 Neut # (Auto) 4.38 Lymph # (Auto) 0.79 L [place] # (Auto) 0.84 H Eos # (Auto) 0.41 Baso # (Auto) 0.05 Immature Gran # (Auto) 0.04 Sodium 137 Potassium 3.6 Chloride 98 Carbon Dioxide 26 Anion Gap 13 H BUN 63 H Creatinine 9.79 H* D Est Cr Clr Drug Dosing 7.5 Est GFR ( Amer) 5.5 Est GFR (Non-Af Amer) 4.7 BUN/Creatinine Ratio 6.4 L Glucose 103 H Calcium 8.6 Phosphorus 7.0 H Magnesium 1.8 Albumin 3.0 L PG Care Time/CCT Total # of Minutes Spent Total Time Spent with Patient: Total time spent is greater than 50% in coordination of care (as documented) at patient's floor/unit and/or counseling patient: Coding Level of Care Code 83306 SUB INP/OBS CARE 3/50MIN Diagnoses End-stage renal disease on peritoneal dialysis N18.6; Z99.2 Polycystic kidney disease, adult type Q61.2 History of cerebral aneurysm repair Z98.890; Z86.79 Ambulatory dysfunction R26.2
--- NOTE | 2022-11-02 10:46 | Electroencephalogram ---
EEG Procedure Note Date of Service November 02, 2022 Start / End Times Start Time: 1014 End Time: [address] Peoples History 72-year-old with history of acute encephalopathy and seizure-like activity including myoclonic jerks. Home Medication List Medication Instructions Recorded Confirmed Type tiotropium 2.5 mcg-olodaterol 2.5 2 puff inhalation QAM #4 grams 02/18/21 10/31/22 Rx mcg/actuation mist for inhalation (Stiolto Respimat) calcitriol 0.5 mcg capsule 1 mcg PO QAM 06/30/21 10/31/22 History polyethylene glycol 3350 17 17 g PO BID 06/30/21 10/31/22 History gram/dose oral powder (Miralax) docusate sodium 100 mg capsule 400 mg PO BID 07/31/21 10/31/22 History (Colace) cinacalcet 30 mg tablet (Sensipar) 30 mg PO DAILY 03/27/22 10/31/22 History guaifenesin 1,200 mg tablet, 1,200 mg PO BID 03/27/22 10/31/22 History extended release 12 hr (Mucinex) acetaminophen 650 mg 1,300 mg PO Q12H 08/29/22 10/31/22 History tablet,extended release albuterol sulfate 90 mcg/actuation 2 inh inhalation Q6H PRN shortness 08/29/22 10/31/22 History aerosol inhaler (ProAir HFA) of breath or wheezing amiodarone 200 mg tablet 200 mg PO DAILY 08/29/22 10/31/22 History epinephrine 0.3 mg/0.3 mL 0.3 mg IM Q4H PRN as directed 08/29/22 10/31/22 History injection, auto-injector (EpiPen) ipratropium 0.5 mg-albuterol 3 mg 3 ml inhalation BID 08/29/22 10/31/22 History (2.5 mg base)/3 mL nebulization soln amlodipine 2.5 mg tablet 2.5 mg PO DAILY #30 tabs 09/06/22 10/31/22 Rx ferric citrate 210 mg iron tablet 420 mg PO TIDWMEAL #1 tab 09/06/22 10/31/22 Rx (Auryxia) levetiracetam 250 mg tablet 250 mg PO QAM #10 tabs 09/06/22 10/31/22 Rx (Keppra) diphenhydramine HCl 25 mg capsule 50 mg PO DAILY 10/31/22 10/31/22 History (Benadryl) Inpatient Medication List Albuterol (Albut/Ipratrop 3mg/0.5mg Neb 3 Ml Vial) 3 ml INH BIDR NÉSTOR; Protocol Stop: 11/30/22 06:59 Last Admin: 11/02/22 07:27 Dose: 3 ml Documented By: Admin: 11/01/22 19:41 Dose: Not Given Documented By: Admin: 11/01/22 07:15 Dose: 3 ml Documented By: Admin: 10/31/22 19:10 Dose: Not Given Documented By: Admin: 10/31/22 07:33 Dose: 3 ml Documented By: AYE Amiodarone HCl (Amiodarone 200 Mg Tab) 200 mg PO DAILY NÉSTOR Stop: 11/30/22 08:59 Last Admin: 11/02/22 08:24 Dose: 200 mg Documented By: Admin: 11/01/22 08:28 Dose: 200 mg Documented By: Admin: 10/31/22 08:45 Dose: 200 mg Documented By: CARINE Amlodipine Besylate (Amlodipine Besylate 5 Mg Tab) 2.5 mg PO DAILY NÉSTOR Stop: 11/30/22 08:59 Last Admin: 11/02/22 08:24 Dose: 2.5 mg Documented By: Admin: 11/01/22 08:30 Dose: 2.5 mg Documented By: Admin: 10/31/22 08:44 Dose: 2.5 mg Documented By: CARINE Calcitriol (Calcitriol 0.25 Mcg Capsule) 1 mcg PO QAM NÉSTOR Stop: 11/30/22 08:59 Last Admin: 11/02/22 08:25 Dose: 1 mcg Documented By: Admin: 11/01/22 08:28 Dose: 1 mcg Documented By: Admin: 10/31/22 08:46 Dose: 1 mcg Documented By: CARINE Cinacalcet (Cinacalcet Hcl 30 Mg Tab) 30 mg PO DAILY NÉSTOR Stop: 11/30/22 08:59 Last Admin: 11/02/22 08:26 Dose: 30 mg Documented By: Admin: 11/01/22 08:28 Dose: 30 mg Documented By: Admin: 10/31/22 08:46 Dose: 30 mg Documented By: CARINE Diphenhydramine HCl (Diphenhydramine Capsule 25 Mg Cap) 50 mg PO DAILY NÉSTOR Stop: 11/30/22 08:59 Last Admin: 10/31/22 08:48 Dose: 50 mg Documented By: CARINE Docusate Sodium (Docusate Sodium 100 Mg Cap) 400 mg PO BID NÉSTOR Stop: 11/30/22 08:59 Last Admin: 11/02/22 08:26 Dose: 400 mg Documented By: Admin: 11/01/22 21:26 Dose: 400 mg Documented By: Admin: 11/01/22 08:29 Dose: 400 mg Documented By: Admin: 10/31/22 22:10 Dose: Not Given Documented By: Admin: 10/31/22 08:45 Dose: 400 mg Documented By: CARINE Guaifenesin (Guaifenesin 600 Mg Tabcr) 1,200 mg PO BID NÉSTOR Stop: 11/30/22 08:59 Last Admin: 11/02/22 08:26 Dose: 1,200 mg Documented By: Admin: 11/01/22 21:25 Dose: 1,200 mg Documented By: Admin: 11/01/22 08:28 Dose: 1,200 mg Documented By: Admin: 10/31/22 22:10 Dose: 1,200 mg Documented By: Admin: 10/31/22 08:44 Dose: 1,200 mg Documented By: CARINE Heparin Sodium (Porcine) (Heparin Sod 5,000 Unit/0.5 Ml Vial) 5,000 units SQ Q12 NÉSTOR Stop: 11/30/22 08:59 Last Admin: 11/02/22 08:27 Dose: 5,000 units Documented By: Admin: 11/01/22 21:26 Dose: 5,000 units Documented By: Admin: 11/01/22 08:29 Dose: 5,000 units Documented By: Admin: 10/31/22 22:11 Dose: 5,000 units Documented By: Admin: 10/31/22 08:49 Dose: 5,000 units Documented By: CARINE Levetiracetam (Levetiracetam 250 Mg Tab) 250 mg PO QAM [facility] Stop: 11/30/22 08:59 Last Admin: 11/02/22 08:27 Dose: 250 mg Documented By: Admin: 11/01/22 08:28 Dose: 250 mg Documented By: Admin: 10/31/22 08:46 Dose: 250 mg Documented By: CARINE Melatonin (Melatonin 3 Mg Tab) 3 mg PO HS PRN PRN Reason: Sleep Stop: 12/01/22 01:02 Last Admin: 11/01/22 01:29 Dose: 3 mg Documented By: LORAINE Melatonin (Melatonin 3 Mg Tab) 3 mg PO HS NÉSTOR Stop: 12/01/22 20:59 Last Admin: 11/01/22 21:26 Dose: 3 mg Documented By: YAMINI Miscellaneous (Ferric Citrate [Auryxia]: Order Awaiting Action) 1 each N/A QS NÉSTOR Stop: 11/30/22 07:59 Last Admin: 11/02/22 08:28 Dose: Not Given Documented By: Admin: 11/02/22 00:59 Dose: Not Given Documented By: Admin: 11/01/22 17:31 Dose: Not Given Documented By: Admin: 11/01/22 08:30 Dose: Not Given Documented By: Admin: 11/01/22 01:02 Dose: Not Given Documented By: Admin: 10/31/22 18:08 Dose: Not Given Documented By: Admin: 10/31/22 08:57 Dose: Not Given Documented By: CARINE Polyethylene Glycol (Polyethylene (Miralax) 17 Gm Pack) 17 gm PO BID NÉSTOR Stop: 11/30/22 08:59 Last Admin: 11/02/22 08:29 Dose: Not Given Documented By: Admin: 11/01/22 21:24 Dose: Not Given Documented By: Admin: 11/01/22 14:17 Dose: Not Given Documented By: Admin: 10/31/22 22:09 Dose: Not Given Documented By: Admin: 10/31/22 10:37 Dose: Not Given Documented By: CARINE Quetiapine Fumarate (Quetiapine Fumarate 25 Mg Tablet) 25 mg PO HS [facility] Stop: 12/01/22 20:59 Last Admin: 11/01/22 21:25 Dose: 25 mg Documented By: YAMINI Thiamine HCl (Thiamine Hcl 100 Mg Tab) 100 mg PO QAM N[facility]STOR Stop: 12/02/22 08:59 Last Admin: 11/02/22 08:27 Dose: 100 mg Documented By: CHARLY Umeclidinium/Vilanterol (Umeclidinium/Vilanterol 62.5/25mcg 7 Puffs/Inhaler) 1 puffs INH QAM NÉSTOR Stop: 11/30/22 08:59 Last Admin: 11/02/22 08:28 Dose: 1 puffs Documented By: Admin: 11/01/22 08:29 Dose: 1 puffs Documented By: Admin: 10/31/22 08:46 Dose: 1 puffs Documented By: CARINE Discontinued Medications Thiamine HCl 200 mg/ Sodium (Chloride) 52 mls @ 210 mls/hr IV NOW STA Stop: 11/01/22 16:21 Last Infusion: 11/01/22 17:57 Dose: 0 mls/hr Documented By: Admin: 11/01/22 17:24 Dose: 210 mls/hr Documented By: CARINE Olanzapine (Olanzapine 2.5 Mg Tab) 2.5 mg PO HS NÉSTOR Stop: 11/01/22 20:59 Last Admin: 10/31/22 22:11 Dose: 2.5 mg Documented By: [facility] Description This is a 21 electrode EEG with a single channel dedicated to limited EKG. The electrodes were placed in accordance with the International 10-20 system. Interpretation The predominant background activity consists of a fairly well modulated 9 Hz activity, of up to 50 mV in amplitude,seen symmetrically distributed over the posterior head regions bilaterally. This activity attenuates some with eye- opening and other alerting procedures. Photic stimulation was performed and elicited no change in the background activity and no abnormal responses were seen. Hyperventilation was not performed. A mild to moderate amount of muscle and movement artifact activity contaminated the recording (He really would not hold still), and hindered interpretation from time to time, but not to any significant degree overall. Throughout the waking portion of the recording, no potentially epileptogenic discharges were seen. However, there was some higher amplitude slow activity in the right frontotemporal central head regions compared to the left throughout the entire recording. The patient entered the drowsy state occasionally, with no further activation. In summary, this EEG was abnormal during wakefulness and brief periods of d rowsiness. although no potentially epileptogenic activity was noted there was a continuous focal slowing in the right frontal temporal central head region compared to the left. Clinical Correlation The absence of potentially epileptogenic activity does not exclude a seizure disorder, since interictally, EEGs can be normal. The focal slowing could indicate a structural lesion in the right fronto Centro temporal head region. Clinical correlation is required. [facility] EEG Procedure Codes Indication for Procedure (1) Seizure disorder: Neurology Neurology: 49642 EEG include record awake & drowsy
[2022-11-02] MEDS: FERRIC CITRATE 210 MG PO SCH (17:08)
--- NOTE | 2022-11-02 19:37 | Hospitalist Progress Note ---
Date of Service November 02, 2022 Assessment & Plan (1) AMS (altered mental status): Plan: - Presented with worsening altered mental status x 24 hours at home. - Granddaughter reports that patient is independent, able to care for himself at home on a routine basis. - U/a was negative; CXR neg for PNA. - Head CT 10/30 with on acute intracranial process. Recommend repeating CT brain on 11/01 to evaluate for acute changes, as he did not have initial changes on CT head in the past with intracranial hemorrhage. - EEG did show right-sided changes will initiate MRI scan daughter confirms that aneurysm clipping are MRI compatible - PT/OT consult to evaluate for discharge planning family is interested in [facility] for further strengthening of gait and balance. - ?Insomnia leading to confusion -patient had good response with Seroquel and melatonin we will continue these medications - Of note, he was admitted in August/2022 for leg weakness - CT head and spine imaging all negative. CPK, B12, Lyme negative. Neurology evaluated with negative work up. Hypocalcemia and sinus bradycardia were likely contributing to weakness during admission. (2) End-stage renal disease on peritoneal dialysis: Plan: - Receives peritoneal dialysis at home but this has not been completed over the last two evenings. - Plan to resume this evening. Nephrology following. - Monitor daily labs, renally dose all meds. (3) PTSD (post-traumatic stress disorder): Plan: - Stable. (4) Pulmonary emphysema: Plan: - Continue supportive care, on room air. (5) Hx of atrial flutter: Plan: - Does not take anticoagulation due to h/o ICH from aneurysm. - Remains on Amiodarone. (6) Seizure disorder: Plan: - Myoclonic jerking noted during admission in August/2022, neurology feels jerking may be related to vascular brain disease and not necessarily asterixis or tremor however did recommend changing from Keppra to Depakote due to reduced possibility of metabolic encephalopathy with Depakote dose recommended for 250 twice daily which could be changed to extended release as an outpatient at 500 once a day - EEG performed 11/02/2022 focal slowing in the right frontocentral temporal head region recommending MRI to rule out structural lesion (7) Ambulatory dysfunction: Plan: - ?etiology, PT/OT consulted. -Consideration of inpatient rehab referral (8) Intracranial hemorrhage: Plan: - August/2012, [facility] [place]. 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 Of note, clips are MRI compatible - CT head neg on admission, plan to repeat on 11/01/22. - Anticoagulation contraindicated. (9) History of cerebral aneurysm repair: Plan: As noted above. (10) HTN (hypertension): Plan: - Continue home Amlodipine as prescribed. - (11) Alzheimer disease: Plan: - Possibly contributing to decline. (12) Secondary hyperparathyroidism (of renal origin): Plan: - Continue home meds. (13) Anemia: Plan: - Chronic anemia of chronic disease stable (14) Pulmonary nodules: Plan: - Irregular bilateral upper lobe opacities noted on CT T spine August/2022. - Recommend follow up CT chest as outpatient. DVT ppx: Heparin 5,000 units q12hr. Code status: FULL CODE Admission and Anticipated Discharge Date Admission Date: October 31, 2022 Subjective pt is less confused today, did ambulate with rolling walker, did have a better night sleep itching still present Physical Exam Physical Exam: Alert appropriate Is weekend however and has back pain which causes him to stoop when he walks Has some tremor which might be related to previous vascular neurological disease Results & Data Results & Data Vital Signs (Past 12 Hours) Vital Signs Temp Pulse Pulse Resp BP Pulse Ox O2 Del Method 11/02/22 16:27 98.2 F 75 18 160/82 H 91 Room Air 11/02/22 14:15 82 11/02/22 08:30 Room Air 11/02/22 11:11 97.5 F L 88 19 156/92 H 97 Room Air 11/02/22 07:51 97.5 F L 54 L 20 11/02/22 07:51 97.5 F L 54 L 20 180/86 H 95 Room Air Laboratory Results Reviewed CBC Reviewed PRP Personally discussed case with Dr. Villanueva neurology consultation and initiate changes recommended by him PG Care Time/CCT Total # of Minutes Spent Total Time Spent with Patient: Total time spent is greater than 50% in coordination of care (as documented) at patient's floor/unit and/or counseling patient: Coding Level of Care Code 90509 SUB INP/OBS CARE 3/50MIN Diagnoses AMS (altered mental status) R41.82 End-stage renal disease on peritoneal dialysis N18.6; Z99.2 PTSD (post-traumatic stress disorder) F43.10 Pulmonary emphysema J43.9 Hx of atrial flutter Z86.79 Seizure disorder G40.909 Ambulatory dysfunction R26.2 Intracranial hemorrhage I62.9 History of cerebral aneurysm repair Z98.890; Z86.79 HTN (hypertension) I10 Hypertension type: unspecified Alzheimer disease G30.9; F02.80 Secondary hyperparathyroidism (of renal origin) N25.81 Anemia D64.9 Anemia type: unspecified type Pulmonary nodules R91.8 (10) HTN (hypertension) Hypertension type: unspecified Qualified Code(s): I10 - Essential (primary) hypertension (13) Anemia Anemia type: unspecified type Qualified Code(s): D64.9 - Anemia, unspecified
[2022-11-02] MEDS: QUEtiapine FUMARATE 25 MG TABLET PO SCH (20:01)
[2022-11-02] MEDS: MELATONIN 3 MG TAB PO SCH (20:02)
[2022-11-02] MEDS: DIVALPROEX DELAY RELEASE 250 MG TABEC PO SCH (20:21)
[2022-11-03] MEDS: ALBUT/IPRATROP 3MG/0.5MG NEB 3 ML VIAL INH SCH (07:06)
[2022-11-03] MEDS: FERRIC CITRATE 210 MG PO SCH ×2 (08:48→12:28)
[2022-11-03] MEDS: POLYETHYLENE (MIRALAX) 17 GM PACK PO SCH (08:48)
[2022-11-03] MEDS: amLODIPine BESYLATE 5 MG TAB PO SCH (08:50)
[2022-11-03] MEDS: AMIODARONE 200 MG TAB PO SCH (08:50)
[2022-11-03] MEDS: CINACALCET HCL 30 MG TAB PO SCH (08:51)
[2022-11-03] MEDS: DIVALPROEX DELAY RELEASE 250 MG TABEC PO SCH (08:51)
[2022-11-03] MEDS: CALCITRIOL 0.25 MCG CAPSULE PO SCH (08:51)
[2022-11-03] MEDS: guaiFENesin 600 MG TABCR PO SCH (08:52)
[2022-11-03] MEDS: THIAMINE HCL 100 MG TAB PO SCH (08:52)
[2022-11-03] MEDS: HEPARIN SOD 5,000 UNIT/0.5 ML VIAL SQ SCH (08:52)
[2022-11-03] MEDS: UMECLIDINIUM/VILANTEROL 62.5/25MCG 7 PUFFS/INHALER INH SCH (08:53)
[2022-11-03] MEDS: DOCUSATE SODIUM 100 MG CAP PO SCH (08:59)
--- NOTE | 2022-11-03 12:42 | Nephrology Progress Note ---
Date of Service November 03, 2022 Assessment & Plan (1) End-stage renal disease on peritoneal dialysis: Plan: CCPD nightly: 5 exchanges x 3000 ml, 80 minute dwell time. EDW 74 kg. Tolerating treatments well. Orders for tonight have been entered into the EHR and reviewed with the crossbow maker. Clearance acceptable. Volume status controlled. Medications appropriately dosed for PD. Monitor metabolic profile daily while inpatient. Document daily weight. Renal diet. (2) Polycystic kidney disease, adult type: Plan: Records reviewed. Denies symptomatic enlargement. (3) History of cerebral aneurysm repair: Plan: s/p craniotomy and clipping [facility] 2012. (4) Ambulatory dysfunction: Plan: Neurology consultation appreciated. Keppra to Depakote conversion. Admission and Anticipated Discharge Date Admission Date: October 31, 2022 Subjective No acute events overnight. No complaints this AM. Sisi feels well. He reports improvement in tremors. States that he slept well last night. Tolerated PD. Denies constipation. Exchanges clear. Review of Systems Review of Systems: All systems reviewed & are unremarkable except as noted in HPI & below Physical Exam Constitutional: well developed and + thin; no acute distress Eyes: + anicteric sclerae; no corneal abnormality ENMT: Mouth: no oral mucosal abnormality and oral mucous membranes not dry Neck: normal visual inspection and trachea midline Respiratory: normal respiratory effort Auscultation: lungs clear to auscultation bilaterally Cardiovascular: Rate/Rhythm: regular rate Heart Sounds: normal S1, normal S2 and + murmur Extremities: no edema Gastrointestinal (Abdomen): Inspection/Auscultation: + abdomen distended and normal bowel sounds Percussion/Palpation: abdomen soft; abdomen nontender Musculoskeletal: Extremities: no cyanosis and no clubbing Skin: + turgor decreased; no jaundice Neurologic: Motor/Sensory: no tremor and no asterixis Psychiatric: Orientation: alert and oriented x 3 Results & Data Vital Signs (Past 12 Hours) Vital Signs Temp Pulse Pulse Pulse Resp BP Pulse Ox 11/03/22 08:00 71 11/03/22 11:02 36.5 C 85 18 163/90 H 96 11/03/22 08:00 11/03/22 07:45 36.6 C 80 18 11/03/22 07:32 36.5 C 81 18 163/81 H 93 11/03/22 07:06 79 18 94 11/03/22 03:35 36.7 C 81 18 185/85 H 92 O2 Del Method 11/03/22 08:00 11/03/22 11:02 Room Air 11/03/22 08:00 Room Air 11/03/22 07:45 11/03/22 07:32 Room Air 11/03/22 07:06 Room Air 11/03/22 03:35 Room Air Laboratory Results Laboratory Results - last 24 hr 11/03/22 06:26 Magnesium 1.8 PG Care Time/CCT Total # of Minutes Spent Total Time Spent with Patient: Total time spent is greater than 50% in coordination of care (as documented) at patient's floor/unit and/or counseling patient: Coding Level of Care Code 21678 SUB INP/OBS CARE 3/50MIN Diagnoses End-stage renal disease on peritoneal dialysis N18.6; Z99.2 Polycystic kidney disease, adult type Q61.2 History of cerebral aneurysm repair Z98.890; Z86.79 Ambulatory dysfunction R26.2
--- NOTE | 2022-11-03 17:22 | Discharge Summary ---
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 The patient was primarily concerned about progressive lower extremity weakness affecting ambulation, and has been having some progressive issues with confusion and general debilitation. The patient denied any issues with headache, vision change, hearing change, focal weakness in arms or legs. Principal Diagnosis Encephalopathy possibly due to sleep deprivation Abnormal EEG with right frontal slowing pending outpatient MRI scan work-up [facility] from [facility] Discharge Exam Patient appears better every day as he is getting good sleep in the evening and he is having reliable peritoneal dialysis Discharge Data Allergies Allergy/AdvReac Type Severity Reaction Status Date / Time lisinopril AdvReac Mild COUGH Verified 10/31/22 00:40 Consultations 10/31/22 01:24 ED Decision to Admit Stat 10/31/22 02:11 Consult Nephrology Routine 11/02/22 07:44 Consult Neurology Routine Ordered Studies 10/30/22 20:48 CT head/brain wo con Stat 11/01/22 08:00 CT Brain [CT head/brain wo con] Routine Hospital Course (1) AMS (altered mental status): - Presented with worsening altered mental status x 24 hours at home. - Granddaughter reports that patient is independent, able to care for himself at home on a routine basis. - U/a was negative; CXR neg for PNA. - Head CT 10/30 with on acute intracranial process. Recommend repeating CT brain on 11/01 to evaluate for acute changes, as he did not have initial changes on CT head in the past with intracranial hemorrhage. - EEG did show right-sided changes will initiate MRI scan daughter confirms that aneurysm clipping are MRI compatible however MRI will not perform these without documented descriptions of Blake serial number of clips this is pending. Subsequently patient be transferred to [facility] we will try to get this information and have an outpatient MRI arranged to neurology office. - ?Insomnia leading to confusion -patient had good response with Seroquel and melatonin we will continue these medications patient discharged on both with drug holidays occasionally during the week - Of note, he was admitted in August/2022 for leg weakness - CT head and spine imaging all negative. CPK, B12, Lyme negative. Neurology evaluated with negative work up. Hypocalcemia and sinus bradycardia were likely contributing to weakness during admission. (2) End-stage renal disease on peritoneal dialysis: - Receives peritoneal dialysis at home but this has not been completed over the last two evenings. - Peritoneal dialysis continues however discussion of hemodialysis could be undertaken (3) PTSD (post-traumatic stress disorder): - Stable. Chronic continue home medications (4) Pulmonary emphysema: Chronic and stable not requiring supplemental oxygen (5) Hx of atrial flutter: - Does not take anticoagulation due to h/o ICH from aneurysm. - Remains on Amiodarone. Chronic and stable at this time (6) Seizure disorder: - Myoclonic jerking noted during admission in August/2022, neurology feels jerking may be related to vascular brain disease and not necessarily asterixis or tremor however did recommend changing from Keppra to Depakote due to reduced possibility of metabolic encephalopathy with Depakote dose recommended for 250 twice daily which could be changed to extended release as an outpatient at 500 once a day - EEG performed 11/02/2022 focal slowing in the right frontocentral temporal head region recommending MRI to rule out structural lesion (7) Intracranial hemorrhage: - August/2012, [place], [place]. 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 Of note, clips are MRI compatible - CT head neg on admission, plan to repeat on 11/01/22. -Plans to have documentation of description of clips brought in and scanned to his medical record (8) Anemia: - Chronic anemia of chronic disease stable (9) Pulmonary nodules: - Irregular bilateral upper lobe opacities noted on CT T spine August/2022. - Recommend follow up CT chest as outpatient. DVT ppx: Heparin 5,000 units q12hr. Code status: FULL CODE Total Time Total Time Spent Total Time Spent (In Minutes): It required greater than 30 minutes to prepare this patient for discharge Discharge Plan Discharge Items Patient Disposition: Transfer Inpatient Rehab Fac Reason For Visit: CONFUSION Discharge Diagnosis: encephalopathy insomnia possible medication reactoin Activity: Per Instructions section Activity Comment: per PT?OT Non-emergency contact: Primary Care Provider and Neurologist Call non-emergency contact if: your symptoms worsen Follow-up/Referrals: Jennifer Shanks D.O. [Primary Care Provider] - Diet: Dialysis Renal Addtl Attending Provider Instructions: There have been a few changes made to her regimen after visiting with Dr. Villanueva. Certainly is encouraging you to CT scans that were unremarkable however Dr. Villanueva wish to change your medication from Keppra to Depakote. Depakote can be changed to long-acting form at 500 they are Keppra 250 twice daily. Additionally your EEG did show some slowing in the right frontal area we attempted to get MRI scan while you are in the hospital however there was some need for further documentation that your clips are MRI compatible which we do believe they are. I did give your information to Dr. Villanueva for the hopeful we have his office staff arrange for an outpatient MRI including any prior authorizations that would be required. I do not believe this is vital to your care at this moment but will impact her care for future if any changes are seen on this MRI scan in the meantime we will continue to support you with guideline based medical therapy One of your bigger issues with sleep deprivation Seroquel and melatonin seem to be doing a nice job with sleep if you ever find yourself tired and perhaps consider going to bed without these medications that would be acceptable trying to give your self 1 or 2 days off a week without needing these medications to help sleep that will prolong their effect on improving your sleep Pending Studies at Discharge: No Stand-Alone Forms: My [facility] Skilled Items Patient informed of condition?: Yes DNR: No Discharge Level of Care: Acute rehab Communicable Disease: No Discharge Prognosis: Stable Lines: None Urinary Catheter: No Medications and DC Order Prescriptions: New quetiapine 25 mg Tablet 25 mg PO HS Qty: 30 0RF divalproex 250 mg Tablet,Delayed Release (Dr/Ec) 250 mg PO BID Qty: 60 0RF thiamine HCl (vitamin B1) 100 mg Tablet 100 mg PO QAM Qty: 30 0RF melatonin 3 mg Tablet 3 mg PO HS Qty: 30 0RF Continued Stiolto Respimat 2.5-2.5 mcg/actuation mist 2 puff INH QAM Qty: 4 5RF docusate sodium [Colace] 100 mg capsule 400 mg PO BID calcitriol 0.5 mcg capsule 1 mcg PO QAM polyethylene glycol 3350 [Miralax] 17 gram/dose Powder 17 g PO BID amiodarone 200 mg Tablet 200 mg PO DAILY albuterol sulfate [ProAir HFA] 90 mcg/actuation HFA aerosol inhaler 2 inh INH Q6H PRN (Reason: shortness of breath or wheezing) acetaminophen 650 mg Tablet Extended Release 1,300 mg PO Q12H ipratropium-albuterol 0.5 mg-3 mg(2.5 mg base)/3 mL solution for nebulization 3 ml INHALATION BID epinephrine [EpiPen] 0.3 mg/0.3 mL Auto-Injector 0.3 mg IM Q4H PRN (Reason: as directed) Auryxia 210 mg iron tablet 420 mg PO TIDWMEAL Qty: 1 0RF Rx Instructions: administer with a meal amlodipine 2.5 mg tablet 2.5 mg PO DAILY Qty: 30 2RF cinacalcet [Sensipar] 30 mg Tablet 30 mg PO DAILY Mucinex 1,200 mg Tablet Extended Release 12hr 1,200 mg PO BID diphenhydramine HCl [Benadryl] 25 mg Capsule 50 mg PO DAILY Discontinued levetiracetam [Keppra] 250 mg Tablet 250 mg PO QAM Qty: 10 0RF Discharge Orders: Discharge Order (Routine); Ordered 11/03/22 Ordered By: Malachi Peoples Admission Data Admit Date/Time: 10/31/22 00:55 Attending Provider: Malachi Peoples Admit Provider: Solomon Espinosa Primary Care Provider: Jennifer Shanks Other Providers: Solomon Espinosa ; Radha Romo ; [facility] ; Julio Villanueva ; [facility] Other Interventions: Discharge Summary Assessment (RN) Last Done: 11/03/22 13:12 Coding Level of Care Code 47065 INP/OBS DISCH >30 MIN Diagnoses AMS (altered mental status) R41.82 End-stage renal disease on peritoneal dialysis N18.6; Z99.2 PTSD (post-traumatic stress disorder) F43.10 Pulmonary emphysema J43.9 Hx of atrial flutter Z86.79 Seizure disorder G40.909 Intracranial hemorrhage I62.9 Anemia D64.9 Anemia type: unspecified type Pulmonary nodules R91.8
== END 2022-11-03 14:26 | DRG 70 ==
LOC: ED 19:57 → SUATTDRO 10-31 00:55 → 2N 10-31 00:55 → 2W 11-01 10:11

== ENCOUNTER 2022-11-17 19:34 | Inpatient (IN) ==
[2022-11-17] MEDS ORDERED: SODIUM CHLORIDE 0.9% 1000ML 1,000 ML IV SCH (19:45)
[2022-11-17] MEDS ORDERED: SODIUM CHLORIDE 0.9% 500 ML IV SCH (19:45)
[2022-11-17 20:29] LABS: Eosinophils # (auto) 0.54 K/uL (0-0.50); Eosinophils % (auto) 5.3 %; Hematocrit (blood only) 33.7 % (42.0-52.0); Immature Granulocytes # (auto) 0.11 K/uL (0.01-0.20); Immature Granulocytes % (auto) 1.1 %; Lymphocytes # (auto) 0.99 K/uL (1.2-3.4); Lymphocytes % (auto) 9.6 %; Mean Corpuscular Hgb Conc 32.6 g/dL (32.0-36.0); Mean Corpuscular Volume 91.8 fL (80.0-100.0); Mean Platelet Volume 9.7 fL (9.4-12.4); Monocytes # (auto) 1.28 K/uL (0.11-0.59); Monocytes % (auto) 12.5 %; Neutrophils # (auto) 7.25 K/uL (1.40-6.50); Neutrophils % (auto) 70.5 %; Platelet Count 355 K/uL (130-400); RDW Coefficient of Variation 19.3 % (11.5-14.5); RDW Standard Deviation 65.8 fL (36.4-46.3); Red Blood Count 3.67 M/uL (4.70-6.10); White Blood Count 10.27 K/ul (4.8-10.8)
[2022-11-17 20:48] LABS: Albumin Level 3.3 gm/dl (3.4-5.0); BUN Creatinine Ratio 7.3 (10-20); Bilirubin,Total 0.4 mg/dl (0.2-1.0); Calcium 9.4 mg/dl (8.6-10.3); Creatinine Clr Calc Pharmacy 7.8 ml/min; Est GFR (Non-African American) 3.5 ml/min; Globulin 3.2 gm/dl (2.5-4.0); Magnesium 2.1 mg/dl (1.7-2.4); Potassium 4.4 mmol/L (3.5-5.1); Total Protein 6.5 gm/dl (6.0-8.3)
[2022-11-17 20:54] LABS: Troponin I High Sensitivity 87.3 pg/ml (0-20)
[2022-11-17] MEDS ORDERED: SODIUM CHLORIDE 0.9% 500 ML IV ONE (21:00)
--- NOTE | 2022-11-18 00:53 | Emergency Department Note ---
Impression & Plan End-stage renal disease on peritoneal dialysis ED Provider Note CHIEF COMPLAINT: Weakness, itchy, fall HISTORY OF PRESENT ILLNESS: This 72-year-old male patient with past medical history of cerebral aneurysm repair, intracranial hemorrhage, seizure disorder, atrial flutter, end-stage renal disease on peritoneal dialysis, emphysema presents to the emergency department with his daughters stating that he has had some decline in mental status, been very weak, itchy and had a fall today. The patient has apparently been periodically very confused. He has not been eating much and has had generalized tremors periodically. Patient is currently on Depakote for these "shakes." Apparently the patient became confused this evening and took a second dose of his morning medications this afternoon including amiodarone, amlodipine, Depakote and stool softener. Patient's daughter try to get the patient up out of bed, he became very shaky and one of his "episodes" and fell. The was broken by his granddaughter, family states he did not hit his head. He did not lose consciousness and complains only of his chronic low back pain. Patient's family also mentions that his peritoneal dialysis machine has been dysfunctional periodically. Family was unable to drain the dialysate this evening. REVIEW OF SYSTEMS: A review of systems was performed with positives and pertinent negatives listed in the history of present illness. 10 systems were reviewed and are otherwise negative. ALLERGIES: see below MEDICATIONS: see below PMH: see below SOCIAL HISTORY: see below DDx: Dehydration, metabolic abnormality, hypo/hyperglycemia, electrolyte disturbance, anemia, hypoxia, cardiac sources, intracerebral event, toxicologic, neurologic, as well as other pathologies. PHYSICAL EXAM: Vital signs reviewed. General: Chronically ill-appearing 72-year-old male, in no significant distress. HEENT: No scleral icterus, PERRLA, neck supple. Skin growth at the tip of the nose. Cardiovascular: Regular rate and rhythm, no extra sounds. Pulmonary: Clear to auscultation bilaterally, normal work of breathing. Abdomen: Soft, nontender, nondistended, positive bowel sounds. Musculoskeletal: Atraumatic, no peripheral edema. Neurologic: Patient awake alert and generally answers questions appropriately. Skin: Warm, dry, no rash EMERGENCY DEPARTMENT COURSE/MDM: This patient was evaluated and appeared to be in no significant distress. IV access was obtained and laboratory work was drawn. External medical records were reviewed. Chest x-ray was performed and reveals no evidence of focal lung consolidation or failure. There is evidence of emphysema. Laboratory work is concerning for elevated BUN at 93, likely explaining the patient's itchiness. Patient's daughter at expressed her concern over retained dialysate as the machine was broken. Troponin is noted to be slightly elevated. EKG reveals first-degree AV block with normal ST segments. Given the patient's presentation after weakness/fall and difficulty with his dialysis and likely some volume depletion, his case was discussed with the hospitalist service to evaluate the patient for further management. Patient family were informed of the findings, plan and agreed. MONITORING: An order for cardiac monitoring was placed and the patient is noted to be in a sinus rhythm with first-degree AV block at 73 bpm. RADIOLOGY: Chest x-ray to my interpretation reveals evidence of cardiomegaly, emphysema. No focal lung consolidation or failure. Otherwise defer to radiology. EKG: To my interpretation reveals a sinus rhythm with first-degree AV block at 74 bpm, normal ST segments, no PVC, no PAC. Nonspecific intraventricular conduction block. QTc is 483. When compared to previous dated October 30, 2022, QT has shortened DISPOSITION: Admission Past Med/Surg History Medical History (Updated 11/19/22 @ 00:08 by Amber Taveras MD) Alzheimer disease Anemia Benign neoplasm of skin of nose removed once Benign prostate hyperplasia Bradycardia CCPD (continuous cycling peritoneal dialysis) status port in place left abdomen--dialysis daily at home; second port that has been placed for dialysis. Chronic obstructive pulmonary disease inhaler/nebulizer daily Confusion COPD (chronic obstructive pulmonary disease) Diverticulosis End-stage renal disease on peritoneal dialysis Gout hx Hemorrhoids "not currently flared" History of marijuana use daily HTN (hypertension) Hx of atrial flutter 06/2021, hospitalized w/pneumonia for almost 3 weeks; dx atrial flutter- currently amiodarone; f/u dr. adkins, [place] Hypercalcemia Hypertension Intracranial hemorrhage 2012 Low back pain Myoclonic jerking On home oxygen therapy 2L N/C at hs PAF (paroxysmal atrial fibrillation) Paroxysmal atrial flutter Polycystic kidney disease, adult type (09/03/12) Ruptured middle cerebral artery aneurysm Secondary hyperparathyroidism (of renal origin) Secondary hyperparathyroidism of renal origin Seizure disorder Tremor of both hands Vitamin D deficiency Surgical History History of cerebral aneurysm repair 2012 [facility] Presby--clip in place; clip IS MRI COMPATIBLE History of colonoscopy History of tooth extraction all teeth Family History Mother , age 65 of cancer Cancer Father , age 60 from a tree falling on him No problems noted. 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) Hx Substance Use: No Preferred Language: Niuean Communication Ability: Effective Communication Ability Comment: pt can sign own consent Institutional Custodian Required: No Beliefs That Will Affect Care: Spiritual marital status: Single Current Living Situation: Family Current Living Situation Comment: lives w/ grandautoña, her & kids How many Children do You have: 1 Feels Safe at Home: Yes Assistive Devices: Walker Allergies Allergies Allergy/AdvReac Type Severity Reaction Status Date / Time lisinopril AdvReac Mild COUGH Verified 10/31/22 00:40 Home Meds Home Medications Medication Instructions Recorded Confirmed calcitriol 0.5 mcg capsule 1 mcg PO QAM 06/30/21 11/17/22 polyethylene glycol 3350 17 17 g PO BID 06/30/21 11/17/22 gram/dose oral powder (Miralax) docusate sodium 100 mg capsule 400 mg PO BID 07/31/21 11/17/22 (Colace) cinacalcet 30 mg tablet (Sensipar) 30 mg PO BID 03/27/22 11/17/22 guaifenesin 1,200 mg tablet, 1,200 mg PO BID 03/27/22 11/17/22 extended release 12 hr (Mucinex) epinephrine 0.3 mg/0.3 mL 0.3 mg IM Q4H PRN as directed 08/29/22 11/17/22 injection, auto-injector (EpiPen) ipratropium 0.5 mg-albuterol 3 mg 3 ml inhalation BID 08/29/22 11/17/22 (2.5 mg base)/3 mL nebulization soln acetaminophen 650 mg 650 mg PO Q12H 11/17/22 11/17/22 tablet,extended release (Tylenol Arthritis Pain) amiodarone 200 mg tablet 200 mg PO DAILY 11/17/22 11/17/22 divalproex 500 mg tablet,delayed 500 mg PO QAM 11/17/22 11/17/22 release melatonin 5 mg tablet 5 mg PO HS 11/17/22 11/17/22 Previous Rx's Medication Instructions Recorded tiotropium 2.5 mcg-olodaterol 2.5 2 puff inhalation QAM #4 grams 02/18/21 mcg/actuation mist for inhalation (Stiolto Respimat) amlodipine 2.5 mg tablet 2.5 mg PO DAILY #30 tabs 09/06/22 ferric citrate 210 mg iron tablet 420 mg PO TIDWMEAL #1 tab 09/06/22 (Auryxia) quetiapine 25 mg tablet 25 mg PO HS #30 tabs 11/03/22 thiamine HCl (vitamin B1) 100 mg 100 mg PO QAM #30 tabs 11/03/22 tablet Results & Data (ED) Vital Signs Vital Signs - 24 hr 11/17/22 19:35 11/17/22 20:01 11/17/22 19:51 Temperature 36.7 C Temperature Source Temporal Artery Scan Pulse Rate 75 73 Pulse Rate [Apical] Pulse Rate from SpO2 Sensor Respiratory Rate 18 Respiratory Effort / Characteristics Non-Labored Spontaneous Respiratory Depth Normal Respiratory Pattern Blood Pressure 135/77 Blood Pressure [Right Arm] Blood Pressure Mean 96 Blood Pressure Mean [Right Arm] Blood Pressure Position Sitting Pulse Oximetry 95 95 Oxygen Delivery Method Room Air Room Air Sepsis Recent Fever Within 48 Hours No Sepsis New/Unexplained Change in Mental Status No Sepsis Action Taken by Nursing No Action Required 11/17/22 20:09 11/17/22 19:52 11/17/22 19:57 Temperature Temperature Source Pulse Rate 73 Pulse Rate [Apical] Pulse Rate from SpO2 Sensor Respiratory Rate 21 13 Respiratory Effort / Characteristics Respiratory Depth Respiratory Pattern Blood Pressure 149/80 H Blood Pressure [Right Arm] Blood Pressure Mean 103 Blood Pressure Mean [Right Arm] Blood Pressure Position Pulse Oximetry 96 Oxygen Delivery Method Room Air Sepsis Recent Fever Within 48 Hours Sepsis New/Unexplained Change in Mental Status Sepsis Action Taken by Nursing 11/17/22 19:57 11/17/22 20:00 11/17/22 20:00 Temperature Temperature Source Pulse Rate 72 73 Pulse Rate [Apical] Pulse Rate from SpO2 Sensor 74 Respiratory Rate 15 21 Respiratory Effort / Characteristics Respiratory Depth Respiratory Pattern Blood Pressure 150/76 H Blood Pressure [Right Arm] Blood Pressure Mean 100 Blood Pressure Mean [Right Arm] Blood Pressure Position Pulse Oximetry 93 Oxygen Delivery Method Sepsis Recent Fever Within 48 Hours Sepsis New/Unexplained Change in Mental Status Sepsis Action Taken by Nursing 11/17/22 20:30 11/17/22 20:30 11/17/22 21:00 Temperature Temperature Source Pulse Rate 73 75 Pulse Rate [Apical] Pulse Rate from SpO2 Sensor 74 76 Respiratory Rate 23 25 H Respiratory Effort / Characteristics Respiratory Depth Respiratory Pattern Blood Pressure 158/82 H Blood Pressure [Right Arm] Blood Pressure Mean 107 Blood Pressure Mean [Right Arm] Blood Pressure Position Pulse Oximetry 95 90 Oxygen Delivery Method Room Air Sepsis Recent Fever Within 48 Hours Sepsis New/Unexplained Change in Mental Status Sepsis Action Taken by Nursing 11/17/22 21:01 11/17/22 21:01 11/17/22 21:30 Temperature Temperature Source Pulse Rate 75 Pulse Rate [Apical] Pulse Rate from SpO2 Sensor 101 H Respiratory Rate 18 Respiratory Effort / Characteristics Respiratory Depth Respiratory Pattern Blood Pressure 159/81 H 170/89 H Blood Pressure [Right Arm] Blood Pressure Mean 107 116 Blood Pressure Mean [Right Arm] Blood Pressure Position Pulse Oximetry 89 L Oxygen Delivery Method Sepsis Recent Fever Within 48 Hours Sepsis New/Unexplained Change in Mental Status Sepsis Action Taken by Nursing 11/17/22 21:30 11/17/22 21:30 11/17/22 21:50 Temperature Temperature Source Pulse Rate 72 Pulse Rate [Apical] Pulse Rate from SpO2 Sensor 74 Respiratory Rate 22 Respiratory Effort / Characteristics Respiratory Depth Respiratory Pattern Blood Pressure 170/89 H 165/79 H Blood Pressure [Right Arm] Blood Pressure Mean 116 107 Blood Pressure Mean [Right Arm] Blood Pressure Position Pulse Oximetry 95 Oxygen Delivery Method Sepsis Recent Fever Within 48 Hours Sepsis New/Unexplained Change in Mental Status Sepsis Action Taken by Nursing 11/17/22 21:50 11/17/22 21:50 11/17/22 22:00 Temperature Temperature Source Pulse Rate 73 Pulse Rate [Apical] Pulse Rate from SpO2 Sensor 73 Respiratory Rate 22 Respiratory Effort / Characteristics Respiratory Depth Respiratory Pattern Blood Pressure 166/101 H 163/77 H Blood Pressure [Right Arm] Blood Pressure Mean 122 105 Blood Pressure Mean [Right Arm] Blood Pressure Position Pulse Oximetry 95 Oxygen Delivery Method Sepsis Recent Fever Within 48 Hours Sepsis New/Unexplained Change in Mental Status Sepsis Action Taken by Nursing 11/17/22 22:00 11/17/22 22:30 11/17/22 23:00 Temperature Temperature Source Pulse Rate 71 75 Pulse Rate [Apical] 74 Pulse Rate from SpO2 Sensor 72 Respiratory Rate 16 18 21 Respiratory Effort / Characteristics Non-Labored Spontaneous Respiratory Depth Normal Respiratory Pattern Regular Blood Pressure Blood Pressure [Right Arm] 161/82 H Blood Pressure Mean Blood Pressure Mean [Right Arm] 108 Blood Pressure Position Pulse Oximetry 94 94 95 Oxygen Delivery Method Room Air Room Air Sepsis Recent Fever Within 48 Hours Sepsis New/Unexplained Change in Mental Status Sepsis Action Taken by Nursing 11/17/22 23:54 Temperature Temperature Source Pulse Rate 81 Pulse Rate [Apical] Pulse Rate from SpO2 Sensor Respiratory Rate Respiratory Effort / Characteristics Respiratory Depth Respiratory Pattern Blood Pressure Blood Pressure [Right Arm] Blood Pressure Mean Blood Pressure Mean [Right Arm] Blood Pressure Position Pulse Oximetry Oxygen Delivery Method Sepsis Recent Fever Within 48 Hours Sepsis New/Unexplained Change in Mental Status Sepsis Action Taken by Intermediate Medications Current Medication List: was personally reviewed by me Laboratory Data Attestation: I reviewed the patient's lab results. 11/17/22 19:58 11/17/22 19:58 Lab Results 11/17/22 11/17/22 11/17/22 Range/Units 19:58 19:58 19:58 WBC 10.27 (4.8-10.8) K/ul RBC 3.67 L (4.70-6.10) M/uL Hgb 11.0 L (14.0-18.0) g/dl Hct 33.7 L (42.0-52.0) % MCV 91.8 (80.0-100.0) fL MCH 30.0 (25.0-34.0) pg MCHC 32.6 (32.0-36.0) g/dL RDW Std Deviation 65.8 H (36.4-46.3) fL RDW Coeff of Giovana 19.3 H (11.5-14.5) % Plt Count 355 (130-400) K/uL MPV 9.7 (9.4-12.4) fL Immature Gran % (Auto) 1.1 % Neut % (Auto) 70.5 % Lymph % (Auto) 9.6 % Putnam % (Auto) 12.5 % Eos % (Auto) 5.3 % Baso % (Auto) 1.0 % Neut # (Auto) 7.25 H (1.40-6.50) K/uL Lymph # (Auto) 0.99 L (1.2-3.4) K/uL Putnam # (Auto) 1.28 H (0.11-0.59) K/uL Eos # (Auto) 0.54 H (0-0.50) K/uL Baso # (Auto) 0.10 (0-0.2) K/uL Immature Gran # (Auto) 0.11 (0.01-0.20) K/uL Sodium 137 (136-145) mmol/L Potassium 4.4 (3.5-5.1) mmol/L Chloride 94 L (98-107) mmol/L Carbon Dioxide 20 L (21-32) mmol/L Anion Gap 23 H (3-11) BUN 92 H (6-23) mg/dl Creatinine 12.64 H* (0.6-1.4) mg/dl Est Cr Clr Drug Dosing 7.8 ml/min Est GFR ( Amer) 4.0 ml/min Est GFR (Non-Af Amer) 3.5 ml/min BUN/Creatinine Ratio 7.3 L (10-20) Glucose 92 (70-99(Fasting)) mg/dl Calcium 9.4 (8.6-10.3) mg/dl Magnesium 2.1 (1.7-2.4) mg/dl Total Bilirubin 0.4 (0.2-1.0) mg/dl AST 10 L (13-39) U/L ALT 12 (7-52) U/L Alkaline Phosphatase 53 (34-104) U/L Troponin I High Sens 87.3 H* (0-20) pg/ml Total Protein 6.5 (6.0-8.3) gm/dl Albumin 3.3 L (3.4-5.0) gm/dl Globulin 3.2 (2.5-4.0) gm/dl Albumin/Globulin Ratio 1.0 (0.9-2) TSH 1.599 (0.300-4.500) uIu/ml SARS-CoV-2, RNA, NAAT (NEGATIVE) 11/17/22 Range/Units 19:59 WBC (4.8-10.8) K/ul RBC (4.70-6.10) M/uL Hgb (14.0-18.0) g/dl Hct (42.0-52.0) % MCV (80.0-100.0) fL MCH (25.0-34.0) pg MCHC (32.0-36.0) g/dL RDW Std Deviation (36.4-46.3) fL RDW Coeff of Giovana (11.5-14.5) % Plt Count (130-400) K/uL MPV (9.4-12.4) fL Immature Gran % (Auto) % Neut % (Auto) % Lymph % (Auto) % Putnam % (Auto) % Eos % (Auto) % Baso % (Auto) % Neut # (Auto) (1.40-6.50) K/uL Lymph # (Auto) (1.2-3.4) K/uL [place]nam # (Auto) (0.11-0.59) K/uL Eos # (Auto) (0-0.50) K/uL Baso # (Auto) (0-0.2) K/uL Immature Gran # (Auto) (0.01-0.20) K/uL Sodium (136-145) mmol/L Potassium (3.5-5.1) mmol/L Chloride (98-107) mmol/L Carbon Dioxide (21-32) mmol/L Anion Gap (3-11) BUN (6-23) mg/dl Creatinine (0.6-1.4) mg/dl Est Cr Clr Drug Dosing ml/min Est GFR ( Amer) ml/min Est GFR (Non-Af Amer) ml/min BUN/Creatinine Ratio (10-20) Glucose (70-99(Fasting)) mg/dl Calcium (8.6-10.3) mg/dl Magnesium (1.7-2.4) mg/dl Total Bilirubin (0.2-1.0) mg/dl AST (13-39) U/L ALT (7-52) U/L Alkaline Phosphatase (34-104) U/L Troponin I High Sens (0-20) pg/ml Total Protein (6.0-8.3) gm/dl Albumin (3.4-5.0) gm/dl Globulin (2.5-4.0) gm/dl Albumin/Globulin Ratio (0.9-2) TSH (0.300-4.500) uIu/ml SARS-CoV-2, RNA, NAAT NEGATIVE (NEGATIVE) Administered Medications Acetaminophen (Acetaminophen 325 Mg Tab) 650 mg PO Q4H PRN PRN Reason: Pain or Fever Stop: 12/18/22 03:30 Last Admin: 11/18/22 03:55 Dose: 650 mg Documented By: MAITE Acetaminophen (Acetaminophen 325 Mg Tab) 650 mg PO BID [facility] Stop: 12/18/22 08:59 Last Admin: 11/18/22 20:37 Dose: 650 mg Documented By: Admin: 11/18/22 08:33 Dose: 650 mg Documented By: JAVON Albuterol (Albut/Ipratrop 3mg/0.5mg Neb 3 Ml Vial) 3 ml INH BIDR [facility]; Protocol Stop: 12/18/22 06:59 Last Admin: 11/18/22 19:31 Dose: Not Given Documented By: Admin: 11/18/22 07:26 Dose: 3 ml Documented By: EDMUNDO Amiodarone HCl (Amiodarone 200 Mg Tab) 200 mg PO DAILY [facility] Stop: 12/18/22 08:59 Last Admin: 11/18/22 08:33 Dose: 200 mg Documented By: JAVON Amlodipine Besylate (Amlodipine Besylate 5 Mg Tab) 2.5 mg PO DAILY [facility] Stop: 12/18/22 08:59 Last Admin: 11/18/22 08:38 Dose: 2.5 mg Documented By: JAVON Calcitriol (Calcitriol 0.25 Mcg Capsule) 1 mcg PO QAM [facility] Stop: 12/18/22 08:59 Last Admin: 11/18/22 08:45 Dose: 1 mcg Documented By: JAVON Cinacalcet (Cinacalcet Hcl 30 Mg Tab) 30 mg PO BID [facility] Stop: 12/18/22 08:59 Last Admin: 11/18/22 20:37 Dose: 30 mg Documented By: Admin: 11/18/22 08:40 Dose: 30 mg Documented By: JAVON Divalproex Sodium (Divalproex Delay Release 500 Mg Tab) 500 mg PO QAM [facility] Stop: 12/18/22 08:59 Last Admin: 11/18/22 08:40 Dose: 500 mg Documented By: JAVON Docusate Sodium (Docusate Sodium 100 Mg Cap) 400 mg PO BID [facility] Stop: 12/18/22 08:59 Last Admin: 11/18/22 20:03 Dose: Not Given Documented By: Admin: 11/18/22 08:41 Dose: 400 mg Documented By: JAVON Guaifenesin (Guaifenesin 600 Mg Tabcr) 1,200 mg PO BID [facility] Stop: 12/18/22 08:59 Last Admin: 11/18/22 20:36 Dose: 1,200 mg Documented By: Admin: 11/18/22 08:42 Dose: 1,200 mg Documented By: JAVON Heparin Sodium (Porcine) (Heparin Sod 5,000 Unit/0.5 Ml Vial) 5,000 units SQ Q12 [facility] Stop: 12/18/22 20:59 Last Admin: 11/18/22 20:50 Dose: 5,000 units Documented By: ROBERT Iron Sucrose 200 mg/ Sodium (Chloride) 110 mls @ 220 mls/hr IV DAILY [facility] Stop: 11/22/22 09:29 Last Infusion: 11/18/22 18:16 Dose: 0 mls/hr Documented By: Admin: 11/18/22 17:46 Dose: 220 mls/hr Documented By: KATELYNN Miscellaneous (Auryxia~Order Awaiting Action) 1 each N/A QS [facility] Stop: 12/18/22 07:59 Last Admin: 11/18/22 16:05 Dose: Not Given Documented By: Admin: 11/18/22 08:16 Dose: Not Given Documented By: JAVON Polyethylene Glycol (Polyethylene (Miralax) 17 Gm Pack) 17 gm PO BID [facility] Stop: 12/18/22 08:59 Last Admin: 11/18/22 20:03 Dose: Not Given Documented By: Admin: 11/18/22 08:43 Dose: 17 gm Documented By: JAVON Quetiapine Fumarate (Quetiapine Fumarate 25 Mg Tablet) 25 mg PO HS [facility] Stop: 12/18/22 20:59 Last Admin: 11/18/22 20:37 Dose: 25 mg Documented By: ROBERT Thiamine HCl (Thiamine Hcl 100 Mg Tab) 100 mg PO QAM [facility] Stop: 12/18/22 08:59 Last Admin: 11/18/22 08:43 Dose: 100 mg Documented By: JAVON Umeclidinium/Vilanterol (Umeclidinium/Vilanterol 62.5/25mcg 7 Puffs/Inhaler) 1 puffs INH QAM [facility] Stop: 12/18/22 08:59 Last Admin: 11/18/22 08:44 Dose: 1 puffs Documented By: JAVON Discontinued Medications Sodium Chloride (Nss 1000ml) 1,000 mls @ 125 mls/hr IV .Q8H [facility] Stop: 11/18/22 03:44 Last Infusion: 11/18/22 04:11 Dose: 0 mls/hr Documented By: Admin: 11/17/22 20:07 Dose: 125 mls/hr Documented By: AMIRAH Sodium Chloride (Nss) 500 mls @ 999 mls/hr IV .Q31M [facility] Stop: 11/17/22 20:15 Last Admin: 11/17/22 20:12 Dose: Not Given Documented By: AMIRAH Sodium Chloride (Nss) 500 mls @ 999 mls/hr IV .Q31M [facility] Stop: 11/17/22 21:30 Last Infusion: 11/17/22 22:34 Dose: 0 mls/hr Documented By: Admin: 11/17/22 21:23 Dose: 999 mls/hr Documented By: AMIRAH Imaging Data Radiologist's Impression: Chest X-Ray 11/17/22 19:45 XR chest 1V portable CLINICAL HISTORY: weakness TECHNIQUE: Single frontal radiograph of the chest was obtained. Comparison: Comparison is made to chest radiograph 10/30/2022 FINDINGS: No lines and tubes are seen. Cardiomegaly is noted. The aortic arch is calcified. Emphysematous changes are seen without acute airspace opacity. No evidence of pleural effusion or pneumothorax. IMPRESSION: No acute chest disease. ACT 112: Negative or not required by law. Electronically signed by: Arthur Taylor M.D. 11/18/2022 8:03 AM Discharge Plan Visit Data Chief Complaint: Fall Stated Complaint: FALL, DOUBLE DOSE OF MEDS ED Provider: Amber Taveras Discharge Problem: End-stage renal disease on peritoneal dialysis Patient Disposition: Admitted As Inpatient Discharge Instructions Interventions: ED Discharge Assessment Last Done: 11/18/22 15:37
[2022-11-18] MEDS ORDERED: NON-FORMULARY MEDICATION (Acetaminophen [Tylenol Arthritis Pain] 650 mg Tablet Extended Re PO SCH (03:31)
[2022-11-18] MEDS ORDERED: EPINEPHrine ADULT AUTO-INJECT 0.3 MG SYR IM PRN (03:31)
[2022-11-18] MEDS ORDERED: MELATONIN 3 MG TAB PO PRN (03:40)
[2022-11-18] MEDS: ACETAMINOPHEN 325 MG TAB PO PRN (03:55)
[2022-11-18 04:15] LABS: Appearance Urine Cloudy (Clear); Bacteria Urine Automated Negative (Negative); Bilirubin Urine Negative (Negative); Blood Urine Trace (Negative); Color Urine Yellow; Epithelial Cell Urine Auto 0-5 /lpf (0-5); Glucose Urine UA Negative (Negative); Ketones Urine Trace (Negative); Leukocyte Esterase Urine 2+ (Negative); Nitrite Urine Negative (Negative); Protein Urine 2+ (Negative); RBC Urine Automated 0-4 /hpf (0-4); Specific Gravity Urine 1.019 (1.000-1.030); Urobilinogen Urine Negative (Negative); WBC Urine Automated >30 /hpf (0-5)
--- NOTE | 2022-11-18 05:59 | History & Physical Report ---
Date of Service November 18, 2022 Assessment & Plan (1) Metabolic encephalopathy: Plan: Patient brought into ED with complaints of intermittent confusion and generalized weakness with recent fall. Patient not reported to have any head impact and mental status has improved upon evaluation in ED Patient has been having difficulty with this PD catheter drainage and has not been receiving his dialysis treatments as per family. nephrology evaluation to assist with further management with peritoneal dialysis as patient's BUN/creatinine has worsened. Patient also found to be clinically dry and started on IV fluids with close monitoring of his input and output check TSH and B12 level (2) End-stage renal disease on peritoneal dialysis: Plan: Patient has a history of ESRD on peritoneal dialysis regimen. Patient's family however reports that patient has been having difficulty with his PD catheter drainage and has not had good treatments over the past few days. Nephrology input (3) Ambulatory dysfunction: Plan: Patient reported to have generalized weakness and fall. Obtain PT OT eval (4) COPD exacerbation: Plan: No evidence of acute exacerbation noted Continue bronchodilators as needed Admission and Anticipated Discharge Date Admission Date: November 18, 2022 History of Present Illness Chief Complaint: Patient presents to ED with complaints of generalized weakness and fall Primary Care Provider: Jennifer Castrejon This is a 72-year-old male with past medical history significant history of intracranial hemorrhage status post cerebral aneurysm repair, history of end- stage renal disease on peritoneal dialysis, seizure disorder, atrial fibrillation, history of COPD who presents to the emergency department with complaints of generalized weakness and fall. Patient has been reported to have had progressive decline in his functional status and hence was brought in by his daughter as to the ED for further evaluation. Patient has not been eating well as per family and has been having symptoms of itchiness and periodic confusion as per family. Patient also has been having concerns with his peritoneal dialysis catheter drainage and patient's family had reported that they were unable to drain the dialysate from the prior exchange as well. Patient had become confused and had taken an additional dose of his amiodarone amlodipine and Depakote as per family and subsequently patient was reported to have become weak and shaky and had slid down on the floor. Family had denied any head injury during this episode and patient was brought into ED for further evaluation. Upon evaluation in the ED patient mental status had improved but patient continues to report generalized weakness and fatigue symptoms. At the time of my evaluation in the ED, patient's mental status had improved but patient continues to report generalized weakness Allergies Allergy/AdvReac Type Severity Reaction Status Date / Time lisinopril AdvReac Mild COUGH Verified 10/31/22 00:40 Home Medications Medication Instructions Recorded Confirmed Type tiotropium 2.5 mcg-olodaterol 2.5 2 puff inhalation QAM #4 grams 02/18/21 Rx mcg/actuation mist for inhalation (Stiolto Respimat) calcitriol 0.5 mcg capsule 1 mcg PO QAM 06/30/21 11/17/22 History polyethylene glycol 3350 17 17 g PO BID 06/30/21 11/17/22 History gram/dose oral powder (Miralax) docusate sodium 100 mg capsule 400 mg PO BID 07/31/21 11/17/22 History (Colace) cinacalcet 30 mg tablet (Sensipar) 30 mg PO BID 03/27/22 11/17/22 History guaifenesin 1,200 mg tablet, 1,200 mg PO BID 03/27/22 11/17/22 History extended release 12 hr (Mucinex) epinephrine 0.3 mg/0.3 mL 0.3 mg IM Q4H PRN as directed 08/29/22 11/17/22 Hist ory injection, auto-injector (EpiPen) ipratropium 0.5 mg-albuterol 3 mg 3 ml inhalation BID 08/29/22 11/17/22 History (2.5 mg base)/3 mL nebulization soln amlodipine 2.5 mg tablet 2.5 mg PO DAILY #30 tabs 09/06/22 11/17/22 Rx ferric citrate 210 mg iron tablet 420 mg PO TIDWMEAL #1 tab 09/06/22 11/17/22 Rx (Auryxia) quetiapine 25 mg tablet 25 mg PO HS #30 tabs 11/03/22 11/17/22 Rx thiamine HCl (vitamin B1) 100 mg 100 mg PO QAM #30 tabs 11/03/22 11/17/22 Rx tablet acetaminophen 650 mg 650 mg PO Q12H 11/17/22 11/17/22 History tablet,extended release (Tylenol Arthritis Pain) amiodarone 200 mg tablet 200 mg PO DAILY 11/17/22 11/17/22 History divalproex 500 mg tablet,delayed 500 mg PO QAM 11/17/22 11/17/22 History release melatonin 5 mg tablet 5 mg PO HS 11/17/22 11/17/22 History Past Med/Surg History Medical History Alzheimer disease Anemia Benign neoplasm of skin of nose removed once Benign prostate hyperplasia Bradycardia CCPD (continuous cycling peritoneal dialysis) status port in place left abdomen--dialysis daily at home; second port that has been placed for dialysis. Chronic obstructive pulmonary disease inhaler/nebulizer daily COPD (chronic obstructive pulmonary disease) Diverticulosis End-stage renal disease on peritoneal dialysis Gout hx Hemorrhoids "not currently flared" History of marijuana use daily HTN (hypertension) Hx of atrial flutter 06/2021, hospitalized w/pneumonia for almost 3 weeks; dx atrial flutter- currently amiodarone; f/u dr. ad[place] Hypercalcemia Hypertension Intracranial hemorrhage 2012 Low back pain Myoclonic jerking On home oxygen therapy 2L N/C at hs PAF (paroxysmal atrial fibrillation) Paroxysmal atrial flutter Polycystic kidney disease, adult type (09/03/12) Ruptured middle cerebral artery aneurysm Secondary hyperparathyroidism (of renal origin) Secondary hyperparathyroidism of renal origin Seizure disorder Tremor of both hands Vitamin D deficiency Surgical History History of cerebral aneurysm repair 2012 [facility]--clip in place; clip IS MRI COMPATIBLE History of colonoscopy History of tooth extraction all teeth Family History Mother , age 65 of cancer Cancer Father , age 60 from a tree falling on him No problems noted. 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 No wheezing Cardiac-no palpitations, no chest pain, GI-poor p.o. intake reported - no dysuria, no hematuria Musculoskeletal- no muscle tenderness Skin-no bruising, no rashes, no pruritus Neuro- generalized weakness reported Physical Exam Physical Exam: Head and ENT no thyroid enlargement trachea midline Cardiovascular S1-S2 are normal no S3 Lungs bilateral air entry fair no wheezing Abdomen soft mild distention noted no rebound tenderness PD catheter in site Extremity shows trace edema Neurologically no focal deficits, Skin shows no rash no cyanosis Results & Data Results & Data Vital Signs (Past 12 Hours) Vital Signs Temp Pulse Pulse Resp BP BP Pulse Ox 11/18/22 03:31 82 20 168/82 H 93 11/18/22 03:31 11/18/22 03:31 11/18/22 01:24 74 16 162/91 H 96 11/17/22 23:54 81 11/17/22 23:00 74 21 161/82 H 95 11/17/22 22:30 75 18 94 11/17/22 22:00 71 16 94 11/17/22 22:00 163/77 H 11/17/22 21:50 73 22 95 11/17/22 21:50 166/101 H 11/17/22 21:50 165/79 H 11/17/22 21:30 72 22 95 11/17/22 21:30 170/89 H 11/17/22 21:30 170/89 H 11/17/22 21:01 159/81 H 11/17/22 21:01 75 18 89 L 11/17/22 21:00 75 25 H 90 11/17/22 20:30 73 23 95 11/17/22 20:30 158/82 H 11/17/22 20:00 73 21 11/17/22 20:00 150/76 H 11/17/22 19:57 72 15 93 11/17/22 19:57 149/80 H 11/17/22 19:52 73 13 05/30/23 20:09 21 96 11/17/22 19:51 73 11/17/22 20:01 95 11/17/22 19:35 36.7 C 75 18 135/77 95 Pulse Ox O2 Del Method O2 Del Method 11/18/22 03:31 Room Air 11/18/22 03:31 91 Room Air 11/18/22 03:31 Room Air 11/18/22 01:24 Room Air 11/17/22 23:54 11/17/22 23:00 Room Air 11/17/22 22:30 Room Air 11/17/22 22:00 11/17/22 22:00 11/17/22 21:50 11/17/22 21:50 11/17/22 21:50 11/17/22 21:30 11/17/22 21:30 11/17/22 21:30 11/17/22 21:01 11/17/22 21:01 11/17/22 21:00 11/17/22 20:30 Room Air 11/17/22 20:30 11/17/22 20:00 11/17/22 20:00 11/17/22 19:57 11/17/22 19:57 11/17/22 19:52 11/17/22 20:09 Room Air 11/17/22 19:51 11/17/22 20:01 Room Air 11/17/22 19:35 Room Air Laboratory Results Short CBC 11/17/22 Range/Units 19:58 WBC 10.27 (4.8-10.8) K/ul Hgb 11.0 L (14.0-18.0) g/dl Hct 33.7 L (42.0-52.0) % Plt Count 355 (130-400) K/uL BMP 11/17/22 19:58 Sodium 137 Potassium 4.4 Chloride 94 L Carbon Dioxide 20 L BUN 92 H Creatinine 12.64 H* Glucose 92 Calcium 9.4 Liver Function 11/17/22 Range/Units 19:58 Total Bilirubin 0.4 (0.2-1.0) mg/dl AST 10 L (13-39) U/L ALT 12 (7-52) U/L Alkaline Phosphatase 53 (34-104) U/L Albumin 3.3 L (3.4-5.0) gm/dl Urine 11/18/22 Range/Units 03:44 Urine Color Yellow Urine Appearance Cloudy A (Clear) Urine pH 5.0 (4.5-7.5) Ur Specific [place] 1.019 (1.000-1.030) Urine Protein 2+ H (Negative) Urine Glucose (UA) Negative (Negative) Code Status & VTE Plan VTE Prophylaxis Plan VTE Prophylaxis will be ordered: Yes PG Care Time/CCT Total # of Minutes Spent Total Time Spent with Patient: Total time spent is greater than 50% in coordination of care (as documented) at patient's floor/unit and/or counseling patient: Coding Level of Care Code 78056 INT INP/OBS CARE MIN Diagnoses Metabolic encephalopathy G93.41 End-stage renal disease on peritoneal dialysis N18.6; Z99.2 Ambulatory dysfunction R26.2 COPD exacerbation J44.1
[2022-11-18] MEDS: ALBUT/IPRATROP 3MG/0.5MG NEB 3 ML VIAL INH SCH ×2 (07:26→19:31)
--- NOTE | 2022-11-18 08:04 | XRay Report ---
XR chest 1V portable CLINICAL HISTORY: weakness TECHNIQUE: Single frontal radiograph of the chest was obtained. Comparison: Comparison is made to chest radiograph 10/30/2022 FINDINGS: No lines and tubes are seen. Cardiomegaly is noted. The aortic arch is calcified. Emphysematous torres es are seen without acute airspace opacity. No evidence of pleural effusion or pneumothorax. IMPRESSION: No acute chest disease. ACT 112: Negative or not required by law. Electronically signed by: Arthur Taylor M.D. 11/18/2022 8:03 AM
--- NOTE | 2022-11-18 08:23 | Electrocardiogram Report ---
Test Reason : Blood Pressure : / mmHG Vent. Rate : 074 BPM Atrial Rate : 074 BPM P-R Int : 240 ms QRS Dur : 136 ms QT Int : 436 ms P-R-T Axes : 002 044 078 degrees QTc Int : 483 ms Sinus rhythm with 1st degree A-V block Non-specific intra-ventricular conduction block Abnormal ECG When compared with ECG of 30-OCT-2022 21:00, No significant change Confirmed by Serjio Overton ([id number]) on 11/18/2022 8:23:23 AM Referred By: REFERRED SELF Confirmed By:Serjio Overton
[2022-11-18] MEDS: AMIODARONE 200 MG TAB PO SCH (08:33)
[2022-11-18] MEDS: ACETAMINOPHEN 325 MG TAB PO SCH ×2 (08:33→20:37)
[2022-11-18] MEDS: amLODIPine BESYLATE 5 MG TAB PO SCH (08:38)
[2022-11-18] MEDS: DIVALPROEX DELAY RELEASE 500 MG TAB PO SCH (08:40)
[2022-11-18] MEDS: CINACALCET HCL 30 MG TAB PO SCH ×2 (08:40→20:37)
[2022-11-18] MEDS: DOCUSATE SODIUM 100 MG CAP PO SCH ×2 (08:41→20:03)
[2022-11-18] MEDS: guaiFENesin 600 MG TABCR PO SCH ×2 (08:42→20:36)
[2022-11-18] MEDS: THIAMINE HCL 100 MG TAB PO SCH (08:43)
[2022-11-18] MEDS: POLYETHYLENE (MIRALAX) 17 GM PACK PO SCH ×2 (08:43→20:03)
[2022-11-18] MEDS: UMECLIDINIUM/VILANTEROL 62.5/25MCG 7 PUFFS/INHALER INH SCH (08:44)
[2022-11-18] MEDS: CALCITRIOL 0.25 MCG CAPSULE PO SCH (08:45)
[2022-11-18 08:46] LABS: HCO3 VBG 18 mmol/L; PCO2 VBG 39 mmHg (38-50); PO2 VBG 43 mmHg; pH VBG 7.26 (7.36-7.41)
[2022-11-18 08:51] LABS: Basophils # (auto) 0.12 K/uL (0-0.2); Basophils % (auto) 1.2 %; Hematocrit (blood only) 32.9 % (42.0-52.0); Hemoglobin 10.4 g/dl (14.0-18.0); Immature Granulocytes # (auto) 0.09 K/uL (0.01-0.20); Immature Granulocytes % (auto) 0.9 %; Lymphocytes # (auto) 1.17 K/uL (1.2-3.4); Lymphocytes % (auto) 11.7 %; Mean Corpuscular Hemoglobin 29.1 pg (25.0-34.0); Mean Corpuscular Hgb Conc 31.6 g/dL (32.0-36.0); Mean Corpuscular Volume 91.9 fL (80.0-100.0); Mean Platelet Volume 9.7 fL (9.4-12.4); Monocytes # (auto) 0.97 K/uL (0.11-0.59); Monocytes % (auto) 9.7 %; Neutrophils # (auto) 6.99 K/uL (1.40-6.50); Neutrophils % (auto) 69.5 %; Platelet Count 323 K/uL (130-400); RDW Standard Deviation 64.4 fL (36.4-46.3); Red Blood Count 3.58 M/uL (4.70-6.10); White Blood Count 10.04 K/ul (4.8-10.8)
[2022-11-18 09:11] LABS: Albumin Level 3.2 gm/dl (3.4-5.0); Bilirubin,Total 0.4 mg/dl (0.2-1.0); Calcium 8.6 mg/dl (8.6-10.3); Magnesium 1.9 mg/dl (1.7-2.4); Potassium 4.3 mmol/L (3.5-5.1)
[2022-11-18 09:19] LABS: Albumin Globulin Ratio 1.1 (0.9-2); BUN Creatinine Ratio 7.2 (10-20); Creatinine Clr Calc Pharmacy 5.1 ml/min; Est GFR (African American) 4.2 ml/min; Est GFR (Non-African American) 3.6 ml/min; Globulin 2.9 gm/dl (2.5-4.0); Total Protein 6.1 gm/dl (6.0-8.3)
[2022-11-18 10:00] LABS: Iron 26 mcg/dl (35-175); Total Iron Binding Cap Calc 176 mcg/dl (250-450); Transferrin (FE) Percent Satur 15 % (20-50); Unsaturated Iron Binding Cap 150 mcg/dl (155-355)
--- NOTE | 2022-11-18 15:55 | Communication Note ---
Date of Service: November 18, 2022 Patient for a permcath insertion at 0800 tomorrow
--- NOTE | 2022-11-18 16:54 | Nephrology Consultation ---
Date of Consultation November 18, 2022 Assessment & Plan (1) ESRD on dialysis: (2) Secondary hyperparathyroidism: (3) Anemia: (4) AMS (altered mental status): (5) Confusion: Plan 72 year-old gentlemen with ESRD secondary to polycystic kidney disease, on CCPD. Dialysis has been has regular. Admitted to the hospital yesterday after at home last night he was noted to be confused, taking his medications wrong specially taking extra dose last night including amiodarone, amlodipine, Depakote and stool softener. He was also very weak, itchy and had a fall while he was doing his peritoneal dialysis. --discussed with family and patient that although his changes in mental status and confusion is most likely unrelated to the PD as his clearances has been at goal, however with his confusion and frequent fall, PD seems unsafe for him to be able to do on his own at this point. Will stop PD for now but leave the catheter. Get TDC and start on HD starting tomorrow. Based on the response, will decide in future whether he can go back to PD or not. If not then, he will need AVF. --dialysis with dialysis nurse, will drain the remaining dwell and send for culture. --left arm nephrology precaution, continue on renal diet, dose medications for GFR less than 10 --continue phosphate binder with meal --venofer Will follow Thanks for the consult. History of Present Illness Attending Physician: Radha Boyce MD History of Present Illness Sisi Redmond is a 70-year-old gentlemen with ESRD on PD, hypertension, polycystic kidney disease admitted to the hospital with confusion and AMS at home. Nephrology consult was requested to manage dialysis while inpatient. EMR records including labs and imaging are reviewed in detail during patient's visit, discussed with granddaughter over telephone. Sisi was brought to ER by his daughter after at home last night he was noted to be somewhat confused, last evening he took a second dose of his morning medications including amiodarone, amlodipine, Depakote and stool softener. He was also very weak, itchy and had a fall while he was doing his peritoneal dialysis. He has been periodically very confused. Recent admitted to [facility] from 10/31/22 to 11/03/22 with similar symptoms and w/u was unremarkable and upon discharge he was sent to [facility] where he stayed for 1 week. However, family did not feel there was any improvement in his symptoms since he got discharged from rehab. He has not been eating much and has had generalized tremors periodically.He did not lose consciousness and complains only of his chronic low back pain. chest x-ray on arrival was otherwise unremarkable. Labs are at his baseline and except metabolic acidosis, creatinine was 12 and BUN 88. Has ESRD secondary to polycystic kidney disease, has been on peritoneal dialysis for last almost 4 years. He is also active on transplant list at [facility]. He dialysis via cycler with 5 exchanges per night, 3 L dwell volume, dwell time [id number], fill time 20 min and drain time 25 min. Still makes some urine. He did have dialysis last night but his last dwell was still in while and he came to the hospital. PD effluent has been clear, denies abdominal pain. Denies constipation. Blood pressure and volume status has been acceptable. During evaluation he was otherwise feeling well, denied any symptoms. He denied any confusion although he admitted that others has been concerned about his memory and cognition. Allergies Allergy/AdvReac Type Severity Reaction Status Date / Time lisinopril AdvReac Mild COUGH Verified 10/31/22 00:40 Home Medications Medication Instructions Recorded Confirmed Type tiotropium 2.5 mcg-olodaterol 2.5 2 puff inhalation QAM #4 grams 02/18/21 11/17/22 Rx mcg/actuation mist for inhalation (Stiolto Respimat) calcitriol 0.5 mcg capsule 1 mcg PO QAM 06/30/21 11/17/22 History polyethylene glycol 3350 17 17 g PO BID 06/30/21 11/17/22 History gram/dose oral powder (Miralax) docusate sodium 100 mg capsule 400 mg PO BID 07/31/21 11/17/22 History (Colace) cinacalcet 30 mg tablet (Sensipar) 30 mg PO BID 03/27/22 11/17/22 History guaifenesin 1,200 mg tablet, 1,200 mg PO BID 03/27/22 11/17/22 History extended release 12 hr (Mucinex) epinephrine 0.3 mg/0.3 mL 0.3 mg IM Q4H PRN as directed 08/29/22 11/17/22 History injection, auto-injector (EpiPen) ipratropium 0.5 mg-albuterol 3 mg 3 ml inhalation BID 08/29/22 11/17/22 History (2.5 mg base)/3 mL nebulization soln amlodipine 2.5 mg tablet 2.5 mg PO DAILY #30 tabs 09/06/22 11/17/22 Rx ferric citrate 210 mg iron tablet 420 mg PO TIDWMEAL #1 tab 09/06/22 11/17/22 Rx (Auryxia) quetiapine 25 mg tablet 25 mg PO HS #30 tabs 11/03/22 11/17/22 Rx thiamine HCl (vitamin B1) 100 mg 100 mg PO QAM #30 tabs 11/03/22 11/17/22 Rx tablet acetaminophen 650 mg 650 mg PO Q12H 11/17/22 11/17/22 History tablet,extended release (Tylenol Arthritis Pain) amiodarone 200 mg tablet 200 mg PO DAILY 11/17/22 11/17/22 History divalproex 500 mg tablet,delayed 500 mg PO QAM 11/17/22 11/17/22 History release melatonin 5 mg tablet 5 mg PO HS 11/17/22 11/17/22 History Patient History Medical History (Updated 11/18/22 @ 16:56 by Radha Romo MD) Alzheimer disease Anemia Benign neoplasm of skin of nose removed once Benign prostate hyperplasia Bradycardia CCPD (continuous cycling peritoneal dialysis) status port in place left abdomen--dialysis daily at home; second port that has been placed for dialysis. Chronic obstructive pulmonary disease inhaler/nebulizer daily Confusion COPD (chronic obstructive pulmonary disease) Diverticulosis End-stage renal disease on peritoneal dialysis Gout hx Hemorrhoids "not currently flared" History of marijuana use daily HTN (hypertension) Hx of atrial flutter 06/2021, hospitalized w/pneumonia for almost 3 weeks; dx atrial flutter- currently amiodarone; f/u dr. ad[place], [place] Hypercalcemia Hypertension Intracranial hemorrhage 2012 Low back pain Myoclonic jerking On home oxygen therapy 2L N/C at hs PAF (paroxysmal atrial fibrillation) Paroxysmal atrial flutter Polycystic kidney disease, adult type (09/03/12) Ruptured middle cerebral artery aneurysm Secondary hyperparathyroidism (of renal origin) Secondary hyperparathyroidism of renal origin Seizure disorder Tremor of both hands Vitamin D deficiency Surgical History History of cerebral aneurysm repair 2012 [facility]--clip in place; clip IS MRI COMPATIBLE History of colonoscopy History of tooth extraction all teeth Family History Mother , age 65 of cancer Cancer Father , age 60 from a tree falling on him No problems noted. 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 Physical Exam Constitutional: WD/WN, vitals as above no acute distress Eyes: + anicteric sclerae Neck: normal visual inspection Respiratory: no respiratory distress Auscultation: lungs clear to auscultation bilaterally Cardiovascular: Rate/Rhythm: regular rate and regular rhythm Heart Sounds: normal S1 and normal S2 Extremities: no edema Gastrointestinal (Abdomen): Inspection/Auscultation: abdomen normal to inspection and normal bowel sounds Percussion/Palpation: abdomen soft; abdomen nontender Musculoskeletal: Extremities: extremities normal to inspection Skin: no rashes, warm and dry Neurologic: no focal motor deficits Psychiatric: Orientation: alert and oriented x 3 Affect: euthymic affect he was awake alert and oriented and most of the questions answered appropriately. Results & Data Vital Signs (Past 12 Hours) Vital Signs Temp Pulse Pulse Resp BP BP Pulse Ox 11/18/22 15:57 36.4 C L 77 20 174/78 H 99 11/18/22 15:06 76 11/18/22 15:30 75 16 11/18/22 15:00 77 18 11/18/22 15:00 162/94 H 11/18/22 14:46 74 15 11/18/22 13:30 72 21 11/18/22 13:00 74 17 11/18/22 12:30 74 17 11/18/22 12:30 157/97 H 11/18/22 12:00 73 19 11/18/22 12:00 149/104 H 11/18/22 11:30 74 16 11/18/22 11:30 161/100 H 11/18/22 11:01 182/123 H 11/18/22 11:01 75 14 11/18/22 11:00 75 20 11/18/22 10:30 73 17 11/18/22 10:30 170/80 H 11/18/22 10:00 75 17 11/18/22 10:00 167/85 H 11/18/22 09:31 77 18 11/18/22 09:31 168/104 H 11/18/22 09:30 77 17 11/18/22 09:01 172/98 H 11/18/22 09:01 78 19 11/18/22 09:00 80 20 11/18/22 08:37 77 22 11/18/22 08:37 152/94 H 11/18/22 07:30 75 16 11/18/22 07:00 72 17 11/18/22 07:00 166/78 H 11/18/22 06:30 71 17 11/18/22 06:30 145/72 H 11/18/22 06:00 72 15 11/18/22 06:00 160/60 H 11/18/22 05:31 75 22 11/18/22 05:31 156/91 H 11/18/22 05:30 74 20 11/18/22 05:01 74 21 11/18/22 05:01 159/116 H 11/18/22 05:00 74 22 11/18/22 10:00 75 19 167/85 H 95 11/18/22 09:30 77 19 168/104 H 94 11/18/22 07:46 78 178/99 H 94 11/18/22 07:28 73 18 91 11/18/22 06:58 73 O2 Del Method 11/18/22 15:57 Room Air 11/18/22 15:06 11/18/22 15:30 11/18/22 15:00 11/18/22 15:00 11/18/22 14:46 11/18/22 13:30 11/18/22 13:00 11/18/22 12:30 11/18/22 12:30 11/18/22 12:00 11/18/22 12:00 11/18/22 11:30 11/18/22 11:30 11/18/22 11:01 11/18/22 11:01 11/18/22 11:00 11/18/22 10:30 11/18/22 10:30 11/18/22 10:00 11/18/22 10:00 11/18/22 09:31 11/18/22 09:31 11/18/22 09:30 11/18/22 09:01 11/18/22 09:01 11/18/22 09:00 11/18/22 08:37 11/18/22 08:37 11/18/22 07:30 11/18/22 07:00 11/18/22 07:00 11/18/22 06:30 11/18/22 06:30 11/18/22 06:00 11/18/22 06:00 11/18/22 05:31 11/18/22 05:31 11/18/22 05:30 11/18/22 05:01 11/18/22 05:01 11/18/22 05:00 11/18/22 10:00 Room Air 11/18/22 09:30 Room Air 11/18/22 07:46 Room Air 11/18/22 07:28 Room Air 11/18/22 06:58 PG Care Time/CCT Total # of Minutes Spent Total Time Spent with Patient: Total time spent is greater than 50% in coordination of care (as documented) at patient's floor/unit and/or counseling patient: Coding Level of Care Code 47128 INT INP/OBS CARE 3/75MIN Diagnoses ESRD on dialysis N18.6; Z99.2 Secondary hyperparathyroidism N25.81 Anemia D64.9 Anemia type: unspecified type AMS (altered mental status) R41.82 Confusion R41.0 (3) Anemia Anemia type: unspecified type Qualified Code(s): D64.9 - Anemia, unspecified
[2022-11-18] MEDS: IRON SUCROSE 200 MG in 0.9 % SODIUM CHLORIDE 100 ML IV SCH (17:46)
--- NOTE | 2022-11-18 17:51 | Hospitalist Progress Note ---
Date of Service November 18, 2022 Assessment & Plan (1) Metabolic encephalopathy: Plan: Patient is a 72-year-old male with past medical history of end-stage renal disease on dialysis secondary to polycystic kidney disease peritoneal who presented to the emergency department for confusion and weakness. Patient has improved with minimal intervention and is being seen by nephrology who recommended switching to hemodialysis. -Nephrology feels that confusion is not due to peritoneal dialysis/uremia as patient is meeting clearance goals -Current dialysis catheter drained and sent for culture -Urine sent to culture, if positive treat with antibiotics given main symptom being confusion/weakness in an elderly patient -B12 and TSH within normal limits. -VBG showing acidosis at 7.26. likely contributing to MS change -reassess in am (2) High anion gap metabolic acidosis: Plan: -VBG showing acidosis at 7.26 -Anion gap of 26 -Could be playing a part in metabolic encephalopathy as above -Suspect secondary to uremia -Should improve with dialysis. -No indication for bicarb at this time (3) End-stage renal disease on peritoneal dialysis: Plan: -Patient has a history of ESRD on peritoneal dialysis regimen. -Patient's family however reports that patient has been having difficulty with his PD catheter drainage and has not had good treatments over the past few days. -Given confusion, nephrology feels that he should be converted to hemodialysis as they cannot perform peritoneal dialysis safely at home with this confusion -Vascular surgery consulted for catheter placement tomorrow. N.p.o. after midnight. (4) Ambulatory dysfunction: Plan: -Patient reported to have generalized weakness and fall. -Obtain PT OT eval, appreciate recommendations. (5) COPD (chronic obstructive pulmonary disease): Plan: -No evidence of acute exacerbation at this time -continue LAMA/LABA Plan Diet: Renal diet, heart healthy. N.p.o. after midnight. DVT prophylaxis: Heparin Disposition: [facility] with telemetry, Catheter placement tomorrow CODE STATUS: Full code Admission and Anticipated Discharge Date Admission Date: November 18, 2022 Supervising Physician Co-Signing Physician Notes Resident Physician Supervision Note: I independently interviewed and examined the patient and verified the reyes history and physical, reviewed labs and image studies and agree with resident findings and care plan. Subjective Patient seen at bedside this morning. No acute events reported overnight. Patient is currently alert and oriented x3 and reports that he is feeling well. Recognizes that he came in for decline in mental status and weakness over the past 24 to 48 hours. Reports improvement today. It seems that the patient is concerned that peritoneal dialysis catheter is not functioning appropriately. Review of Systems Review of Systems: All systems reviewed & are unremarkable except as noted in HPI & below Physical Exam Constitutional: WD/WN, vitals as above Eyes: + anicteric sclerae Neck: normal visual inspection Respiratory: normal respiratory effort, lungs clear to auscultation Cardiovascular: RRR, no murmur, no edema Gastrointestinal (Abdomen): Inspection/Auscultation: abdomen normal to inspection and normal bowel sounds Musculoskeletal: Head/Neck/Chest: normocephalic and head atraumatic Skin: no rashes, warm and dry Neurologic: moves all extremities Psychiatric: Orientation: alert and oriented x 3 Results & Data Results & Data Vital Signs (Past 12 Hours) Vital Signs Temp Pulse Pulse Resp BP BP Pulse Ox 11/18/22 15:57 36.4 C L 77 20 174/78 H 99 11/18/22 15:06 76 11/18/22 15:30 75 16 11/18/22 15:00 77 18 11/18/22 15:00 162/94 H 11/18/22 14:46 74 15 11/18/22 13:30 72 21 11/18/22 13:00 74 17 11/18/22 12:30 74 17 11/18/22 12:30 157/97 H 11/18/22 12:00 73 19 11/18/22 12:00 149/104 H 11/18/22 11:30 74 16 11/18/22 11:30 161/100 H 11/18/22 11:01 182/123 H 11/18/22 11:01 75 14 11/18/22 11:00 75 20 11/18/22 10:30 73 17 11/18/22 10:30 170/80 H 11/18/22 10:00 75 17 11/18/22 10:00 167/85 H 11/18/22 09:31 77 18 11/18/22 09:31 168/104 H 11/18/22 09:30 77 17 11/18/22 09:01 172/98 H 11/18/22 09:01 78 19 11/18/22 09:00 80 20 11/18/22 08:37 77 22 11/18/22 08:37 152/94 H 11/18/22 07:30 75 16 11/18/22 07:00 72 17 11/18/22 07:00 166/78 H 11/18/22 06:30 71 17 11/18/22 06:30 145/72 H 11/18/22 06:00 72 15 11/18/22 06:00 160/60 H 11/18/22 05:31 75 22 11/18/22 05:31 156/91 H 11/18/22 10:00 75 19 167/85 H 95 11/18/22 09:30 77 19 168/104 H 94 11/18/22 07:46 78 178/99 H 94 11/18/22 07:28 73 18 91 11/18/22 06:58 73 O2 Del Method 11/18/22 15:57 Room Air 11/18/22 15:06 11/18/22 15:30 11/18/22 15:00 11/18/22 15:00 11/18/22 14:46 11/18/22 13:30 11/18/22 13:00 11/18/22 12:30 11/18/22 12:30 11/18/22 12:00 11/18/22 12:00 11/18/22 11:30 11/18/22 11:30 11/18/22 11:01 11/18/22 11:01 11/18/22 11:00 11/18/22 10:30 11/18/22 10:30 11/18/22 10:00 11/18/22 10:00 11/18/22 09:31 11/18/22 09:31 11/18/22 09:30 11/18/22 09:01 11/18/22 09:01 11/18/22 09:00 11/18/22 08:37 11/18/22 08:37 11/18/22 07:30 11/18/22 07:00 11/18/22 07:00 11/18/22 06:30 11/18/22 06:30 11/18/22 06:00 11/18/22 06:00 11/18/22 05:31 11/18/22 05:31 11/18/22 10:00 Room Air 11/18/22 09:30 Room Air 11/18/22 07:46 Room Air 11/18/22 07:28 Room Air 11/18/22 06:58 (5) COPD (chronic obstructive pulmonary disease) COPD type: unspecified COPD Qualified Code(s): J44.9 - Chronic obstructive pulmonary disease, unspecified
[2022-11-18] MEDS: QUEtiapine FUMARATE 25 MG TABLET PO SCH (20:37)
[2022-11-18] MEDS: HEPARIN SOD 5,000 UNIT/0.5 ML VIAL SQ SCH (20:50)
[2022-11-19] MEDS ORDERED: ceFAZolin 2000MG 2,000 MG/15 ML SYR IV SCH (06:00)
[2022-11-19] MEDS: ALBUT/IPRATROP 3MG/0.5MG NEB 3 ML VIAL INH SCH ×2 (07:17→19:21)
[2022-11-19] MEDS ORDERED: HEPARIN SOD (PORCINE) 5,000 UNITS/ML VIAL ONE (07:41)
[2022-11-19] MEDS ORDERED: LIDOCAINE 1% LOCAL 20 ML VIAL ONE (07:42)
[2022-11-19] MEDS ORDERED: MIDAZOLAM HCL 1 MG/ML 2ML VIAL ONE (07:43)
[2022-11-19] MEDS ORDERED: fentaNYL citrate PF 100 MCG/2 ML VIAL ONE (07:43)
[2022-11-19] MEDS ORDERED: D5W AND 1/4NSS 1,000 ML IV SCH (07:45)
--- NOTE | 2022-11-19 07:48 | Consultation ---
Date of Consultation November 19, 2022 Assessment & Plan (1) End-stage renal disease on peritoneal dialysis: Patient for insertion of permcath. I have discussed the risks options and benefits of the procedure with the patient. The patient understands the risks options and benefits and agrees to the procedure. History of Present Illness Reason for Consultation: End stage renal disease, unable to do PD Attending Physician: Radha Boyce MD History of Present Illness This is a 72yo male who does PD at home. Due to falls and instability, he is unable to do PD at this time. Consult was ordered to place a permcath to do hemodialysis at this time. Allergies Allergy/AdvReac Type Severity Reaction Status Date / Time lisinopril AdvReac Mild COUGH Verified 10/31/22 00:40 Home Medications Medication Instructions Recorded Confirmed Type tiotropium 2.5 mcg-olodaterol 2.5 2 puff inhalation QAM #4 grams 02/18/21 11/17/22 Rx mcg/actuation mist for inhalation (Stiolto Respimat) calcitriol 0.5 mcg capsule 1 mcg PO QAM 06/30/21 11/17/22 History polyethylene glycol 3350 17 17 g PO BID 06/30/21 11/17/22 History gram/dose oral powder (Miralax) docusate sodium 100 mg capsule 400 mg PO BID 07/31/21 11/17/22 History (Colace) cinacalcet 30 mg tablet (Sensipar) 30 mg PO BID 03/27/22 11/17/22 History guaifenesin 1,200 mg tablet, 1,200 mg PO BID 03/27/22 11/17/22 History extended release 12 hr (Mucinex) epinephrine 0.3 mg/0.3 mL 0.3 mg IM Q4H PRN as directed 08/29/22 11/17/22 History injection, auto-injector (EpiPen) ipratropium 0.5 mg-albuterol 3 mg 3 ml inhalation BID 08/29/22 11/17/22 History (2.5 mg base)/3 mL nebulization soln amlodipine 2.5 mg tablet 2.5 mg PO DAILY #30 tabs 09/06/22 11/17/22 Rx ferric citrate 210 mg iron tablet 420 mg PO TIDWMEAL #1 tab 09/06/22 11/17/22 Rx (Auryxia) quetiapine 25 mg tablet 25 mg PO HS #30 tabs 11/03/22 11/17/22 Rx thiamine HCl (vitamin B1) 100 mg 100 mg PO QAM #30 tabs 11/03/22 11/17/22 Rx tablet acetaminophen 650 mg 650 mg PO Q12H 11/17/22 11/17/22 History tablet,extended release (Tylenol Arthritis Pain) amiodarone 200 mg tablet 200 mg PO DAILY 11/17/22 11/17/22 History divalproex 500 mg tablet,delayed 500 mg PO QAM 11/17/22 11/17/22 History release melatonin 5 mg tablet 5 mg PO HS 11/17/22 11/17/22 History Patient History Medical History Alzheimer disease Anemia Benign neoplasm of skin of nose removed once Benign prostate hyperplasia Bradycardia CCPD (continuous cycling peritoneal dialysis) status port in place left abdomen--dialysis daily at home; second port that has been placed for dialysis. Chronic obstructive pulmonary disease inhaler/nebulizer daily Confusion COPD (chronic obstructive pulmonary disease) Diverticulosis End-stage renal disease on peritoneal dialysis Gout hx Hemorrhoids "not currently flared" History of marijuana use daily HTN (hypertension) Hx of atrial flutter 06/2021, hospitalized w/pneumonia for almost 3 weeks; dx atrial flutter- currently amiodarone; f/u dr. adkins, [place] Hypercalcemia Hypertension Intracranial hemorrhage 2012 Low back pain Myoclonic jerking On home oxygen therapy 2L N/C at hs PAF (paroxysmal atrial fibrillation) Paroxysmal atrial flutter Polycystic kidney disease, adult type (09/03/12) Ruptured middle cerebral artery aneurysm Secondary hyperparathyroidism (of renal origin) Secondary hyperparathyroidism of renal origin Seizure disorder Tremor of both hands Vitamin D deficiency Surgical History History of cerebral aneurysm repair 2013 [facility] [place]--clip in place; clip IS MRI COMPATIBLE History of colonoscopy History of tooth extraction all teeth Family History Mother , age 65 of cancer Cancer Father , age 60 from a tree falling on him No problems noted. 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) Hx Substance Use: No Preferred Language: German Communication Ability: Effective Communication Ability Comment: pt can sign own consent Clinical Operations Consultant Required: No Beliefs That Will Affect Care: Spiritual marital status: Single Current Living Situation: Family Current Living Situation Comment: lives w/ rula, her & kids How many Children do You have: 1 Feels Safe at Home: Yes Assistive Devices: Walker Review of Systems Review of Systems: All systems reviewed & are unremarkable except as noted in HPI & below Physical Exam Constitutional: WD/WN, vitals as above Respiratory: normal respiratory effort, lungs clear to auscultation Cardiovascular: Rate/Rhythm: regular rate and regular rhythm Gastrointestinal (Abdomen): Inspection/Auscultation: abdomen normal to inspec tion Percussion/Palpation: abdomen soft; abdomen nontender Musculoskeletal: no cyanosis or clubbing, extremities motor strength 5/5 Neurologic: CN's II-XI intact bilaterally and moves all extremities Psychiatric: Orientation: alert and oriented x 3 Results & Data Vital Signs (Past 12 Hours) Vital Signs Temp Pulse Pulse Resp BP Pulse Ox O2 Del Method 11/19/22 06:34 36.5 C 75 20 185/77 H 95 Room Air 11/19/22 03:31 11/19/22 03:12 36.4 C L 77 18 161/84 H 92 Room Air 11/18/22 23:57 73 11/18/22 23:34 36.4 C L 84 18 167/78 H 90 Room Air 11/18/22 21:44 Room Air 11/18/22 19:50 36.5 C 74 18 183/79 H 97 Room Air O2 Del Method 11/19/22 06:34 11/19/22 03:31 Room Air 11/19/22 03:12 11/18/22 23:57 11/18/22 23:34 11/18/22 21:44 11/18/22 19:50
--- NOTE | 2022-11-19 07:49 | Pre Anesthesia Assessment ---
Date of Service November 19, 2022 Pre Sedation Assessment Vital Signs Temp Pulse Pulse Pulse Resp BP BP 11/19/22 06:34 36.5 C 75 20 185/77 H 11/19/22 03:31 11/19/22 03:12 36.4 C L 77 18 161/84 H 11/18/22 23:57 73 11/18/22 23:34 36.4 C L 84 18 167/78 H 11/18/22 21:44 11/18/22 19:50 36.5 C 74 18 183/79 H 11/18/22 15:57 36.4 C L 77 20 174/78 H 11/18/22 15:06 76 11/18/22 15:30 75 16 11/18/22 15:00 77 18 11/18/22 15:00 162/94 H 11/18/22 14:46 74 15 11/18/22 13:30 72 21 11/18/22 13:00 74 17 11/18/22 12:30 74 17 11/18/22 12:30 157/97 H 11/18/22 12:00 73 19 11/18/22 12:00 149/104 H 11/18/22 11:30 74 16 11/18/22 11:30 161/100 H 11/18/22 11:01 182/123 H 11/18/22 11:01 75 14 11/18/22 11:00 75 20 11/18/22 10:30 73 17 11/18/22 10:30 170/80 H 11/18/22 10:00 75 17 11/18/22 10:00 167/85 H 11/18/22 09:31 77 18 11/18/22 09:31 168/104 H 11/18/22 09:30 77 17 11/18/22 09:01 172/98 H 11/18/22 09:01 78 19 11/18/22 09:00 80 20 11/18/22 08:37 77 22 11/18/22 08:37 152/94 H 11/18/22 10:00 75 19 167/85 H 11/18/22 09:30 77 19 168/104 H Pulse Ox O2 Del Method O2 Del Method 11/19/22 06:34 95 Room Air 11/19/22 03:31 Room Air 11/19/22 03:12 92 Room Air 11/18/22 23:57 11/18/22 23:34 90 Room Air 11/18/22 21:44 Room Air 11/18/22 19:50 97 Room Air 11/18/22 15:57 99 Room Air 11/18/22 15:06 11/18/22 15:30 11/18/22 15:00 11/18/22 15:00 11/18/22 14:46 11/18/22 13:30 11/18/22 13:00 11/18/22 12:30 11/18/22 12:30 11/18/22 12:00 11/18/22 12:00 11/18/22 11:30 11/18/22 11:30 11/18/22 11:01 11/18/22 11:01 11/18/22 11:00 11/18/22 10:30 11/18/22 10:30 11/18/22 10:00 11/18/22 10:00 11/18/22 09:31 11/18/22 09:31 11/18/22 09:30 11/18/22 09:01 11/18/22 09:01 11/18/22 09:00 11/18/22 08:37 11/18/22 08:37 11/18/22 10:00 95 Room Air 11/18/22 09:30 94 Room Air Cardiovascular RRR, no murmur, no edema Respiratory normal respiratory effort, lungs clear to auscultation Pre-Sedation Airway Assessment Smoking Status: Never smoker Hx Sleep Apnea: No Short, Thick Neck: No Thyromental Distance: > or= 3.5 Finger Breadths Oral Cavity: + WNL Mallampati Class: II ASA: ASA3 NPO Status Date of Last Intake of Fluids: 11/18/22 Time of Last Intake of Fluids: 21:00 Date of Last Intake of Solid Food: 11/18/22 Time of Last Intake of Solid Foods: 19:00 Procedure Planning Contraindications for Sedation: none Current Medications Reviewed: Yes Notes The planned sedation has been discussed with the patient. Informed Consent was obtained. I have identified the patient, determined the appropriateness of sedation and have assessed the patient immediately prior to the procedure. All medicine(s) and interventions are by my order.
[2022-11-19] MEDS ORDERED: EPOETIN ALFA 4,000 UNIT/ML VIAL IV SCH (08:14)
--- NOTE | 2022-11-19 08:42 | Post Anesthesia Assessment ---
Date of Service November 19, 2022 Post Sedation Assessment Vital Signs Temp Pulse Pulse Pulse Resp BP BP 11/19/22 08:40 77 16 159/73 H 11/19/22 08:35 76 16 132/69 11/19/22 08:30 77 16 157/76 H 11/19/22 08:25 76 16 146/74 H 11/19/22 08:20 78 16 166/94 H 11/19/22 08:15 78 16 166/94 H 11/19/22 08:10 78 16 179/85 H 11/19/22 06:34 36.5 C 75 20 185/77 H 11/19/22 03:31 11/19/22 03:12 36.4 C L 77 18 161/84 H 11/18/22 23:57 73 11/18/22 23:34 36.4 C L 84 18 167/78 H 11/18/22 21:44 11/18/22 19:50 36.5 C 74 18 183/79 H 11/18/22 15:57 36.4 C L 77 20 174/78 H 11/18/22 15:06 76 11/18/22 15:30 75 16 11/18/22 15:00 77 18 11/18/22 15:00 162/94 H 11/18/22 14:46 74 15 11/18/22 13:30 72 21 11/18/22 13:00 74 17 11/18/22 12:30 74 17 11/18/22 12:30 157/97 H 11/18/22 12:00 73 19 11/18/22 12:00 149/104 H 11/18/22 11:30 74 16 11/18/22 11:30 161/100 H 11/18/22 11:01 182/123 H 11/18/22 11:01 75 14 11/18/22 11:00 75 20 11/18/22 10:30 73 17 11/18/22 10:30 170/80 H 11/18/22 10:00 75 17 11/18/22 10:00 167/85 H 11/18/22 09:31 77 18 11/18/22 09:31 168/104 H 11/18/22 09:30 77 17 11/18/22 09:01 172/98 H 11/18/22 09:01 78 19 11/18/22 09:00 80 20 11/18/22 10:00 75 19 167/85 H 11/18/22 09:30 77 19 168/104 H Pulse Ox O2 Del Method O2 Del Method O2 Flow Rate 11/19/22 08:40 100 Oxymask 4 11/19/22 08:35 98 Oxymask 4 11/19/22 08:30 98 Oxymask 4 11/19/22 08:25 98 Oxymask 4 11/19/22 08:20 98 Oxymask 4 11/19/22 08:15 98 Oxymask 4 11/19/22 08:10 98 Oxymask 4 11/19/22 06:34 95 Room Air 11/19/22 03:31 Room Air 11/19/22 03:12 92 Room Air 11/18/22 23:57 11/18/22 23:34 90 Room Air 11/18/22 21:44 Room Air 11/18/22 19:50 97 Room Air 11/18/22 15:57 99 Room Air 11/18/22 15:06 11/18/22 15:30 11/18/22 15:00 11/18/22 15:00 11/18/22 14:46 11/18/22 13:30 11/18/22 13:00 11/18/22 12:30 11/18/22 12:30 11/18/22 12:00 11/18/22 12:00 11/18/22 11:30 11/18/22 11:30 11/18/22 11:01 11/18/22 11:01 11/18/22 11:00 11/18/22 10:30 11/18/22 10:30 11/18/22 10:00 11/18/22 10:00 11/18/22 09:31 11/18/22 09:31 11/18/22 09:30 11/18/22 09:01 11/18/22 09:01 11/18/22 09:00 11/18/22 10:00 95 Room Air 11/18/22 09:30 94 Room Air Recovery Score Activity: Moves 4 extremities Respiration: Deep Breath/Cough Circulation: +/-20% PreAnes Value Consciousness: Arouseable (by name) Oxygen Saturation: O2 needed for >90% Post Anesthesia Score: 8 Discharge Sedation Level of Care: Fast Track Phase II Post Sedation Plan On clinical assessment, the patient appears to have tolerated the sedation without complications. Patient is recovering as anticipated. Patient will continue to be monitored by nursing and may be discharged when sedation discharge criteria are met per below protocol. Upon Completions of procedure up to 15 minutes continue every 5 minute vital signs and the P.A.R. score; then discharge to a Phase I or Fast Track to Phase II per the following guidelines: * Discharge Patient to appropriate Phase II area if PAR is 8 or greater or return to pre- procedure baseline. The post - procedure orders will be as directed. * If PAR score is less than 8 or not return to pre-procedure baseline then patient will follow Phase I monitoring till PAR is reached for Phase II. The Phase I may be done in procedure room or may call to secure a Phase I area. * If naloxone or flumazenil are used for reversal, hold in Phase I for continued monitoring from when last reversal dose was given for a minimum of 60 minutes or longer pending the nurse and/or physician discretion of patient condition before discharge to Phase II. Please call the Sedation Physician to re-evaluate and complete post-note for discharge to Phase II area. Do NOT discharge from procedure sedation or Phase 1 until post- sedation evaluation note is complete by procedure /sedation MD Sedation Discharge Instructions to be given to the patient at discharge to home.
--- NOTE | 2022-11-19 08:45 | Procedure Note ---
Angiogram Post Procedure Fluoroscopy Time (minutes): 0 Conscious Sedation Time (minutes): 26 Radiation (mGy): 0 Contrast: 0 Post Operative Report Pre & Post Diagnosis Operation Date: 11/19/22 07:50 Pre-Op Diagnosis: End Stage Renal Disease Post-Op Diagnosis: End Stage Renal Disease I identified the patient and participated in the time-out.: Yes Procedure Operation Date: 11/19/22 07:50 Actual Procedures p Perm Catheter Insertion, Left Internal Jugular Approach, Ultrasound Localization of Left Internal Jugular Vein, Fluroscopy for Positioning, Moderate Sedation [id number](Left) - Chip Yeboah MD Surgeon Chip Yeboah MD Lumber Tripper none Estimated Blood Loss 3 Findings Consistent with Post-Op Diagnosis Specimens none Anesthesia Type RN Sedation Complications none Disposition Accompanied Patient To Recovery: No Disposition: Recovery Room Indications This is a 72-year-old gentleman who is on peritoneal dialysis. He was admitted with increased confusion and falling. Due to this peritoneal dialysis was discontinued and was it was recommended to place him on hemodialysis until his problems resolved. For access a PermCath was recommended. I have discussed the risks options and benefits of the procedure with the patient. The patient understands the risks options and benefits and agrees to the procedure. Description of Procedure Patient was taken to the angio suite and placed in the supine position. The right side of the neck and chest wall were prepped and draped in a sterile manner. The patient was identified and a timeout performed. Ultrasound was used to image the right internal jugular vein being that he had a temporary dialysis catheter in the past. The right internal jugular vein was not patent. We then prepped the left side of the neck and chest wall. Local anesthesia was then administered to the appropriate areas of the neck and chest wall. Ultrasound was then used to locate the left internal jugular vein. The vein compressed easily, had no filing defects, and was patent. The vein was then punctured under direct ultrasound imaging. A guidewire was then passed centrally under fluoroscopic imaging. A stab wound was then made in the anterior chest wall and a 23 cm permcath was passed from the stab wound on the chest wall to the puncture site on the neck. The puncture site was then dilated till the 14Fr peel away sheath was inserted. The permcath was then inserted through the sheath to a central position in the distal superior vena cava. The peel away sheath was then removed. The catheter was then sutured in place using nylon sutures. The puncture was then closed using a 4-0 Vicryl subcuticular suture. Dermabond was used for a dressing on the puncture site. Both ports aspirated and flushed easily and were then packed with heparin. A sterile dressing was applied to the catheter. The patient left the operation room in satisfactory condition and tolerated the procedure well. All needle and sponge counts were correct at the end of the procedure. I attest to the content of the Intraoperative Record and any orders documented therein. Any exceptions are noted below.
[2022-11-19] MEDS: IRON SUCROSE 200 MG in 0.9 % SODIUM CHLORIDE 100 ML IV SCH (10:50)
[2022-11-19 11:07] LABS: HBSAG NON-REACTIVE (NON-REACTIVE); Hepatitis B Surface Ab, Quant <5 mIU/mL (> OR = 10)
--- NOTE | 2022-11-19 11:31 | Nephrology Progress Note ---
Date of Service November 19, 2022 Assessment & Plan (1) ESRD on dialysis: (2) Secondary hyperparathyroidism: (3) Anemia: (4) AMS (altered mental status): (5) Confusion: Plan 72 year-old gentlemen with ESRD secondary to polycystic kidney disease, on CCPD. Dialysis has been has regular. Admitted to the hospital yesterday after at home last night he was noted to be confused, taking his medications wrong specially taking extra dose last night including amiodarone, amlodipine, Depakote and stool softener. He was also very weak, itchy and had a fall while he was doing his peritoneal dialysis. Had TDC on 11/19/22 --Plan for first HD today, continue to keep off of PD at this time ( because of his confusion and frequent fall, PD seems unsafe for him to be able to do on his own, not because PD catheter was having malfunction, leave the catheter for now). Based on the response, will decide in future whether he can go back to PD or not. If not then, he will need AVF. --left arm nephrology precaution, continue on renal diet, dose medications for GFR less than 10 --continue phosphate binder with meal --venofer --consult case management to set up outpt dialysis at [facility] Will follow Admission and Anticipated Discharge Date Admission Date: November 18, 2022 Subjective Sisi was seen during HD this am, he had TDC this am. BP acceptable. Review of Systems Review of Systems: detailed review of system was done and pertinent positives and negatives are mentioned above. Physical Exam Constitutional: WD/WN, vitals as above no acute distress Eyes: + anicteric sclerae Neck: normal visual inspection Respiratory: no respiratory distress Auscultation: lungs clear to auscultation bilaterally Cardiovascular: Rate/Rhythm: regular rate and regular rhythm Heart Sounds: normal S1 and normal S2 Extremities: + vascular access device (left IJ TDC.); no edema Musculoskeletal: Extremities: extremities normal to inspection Skin: no rashes, warm and dry Neurologic: no focal motor deficits Psychiatric: Orientation: alert and oriented x 3 Affect: euthymic affect Results & Data Vital Signs (Past 12 Hours) Vital Signs Temp Pulse Pulse Pulse Resp BP BP 11/19/22 11:00 89 124/72 11/19/22 10:30 86 112/59 L 11/19/22 10:00 77 149/71 H 11/19/22 09:30 72 123/64 11/19/22 09:21 77 126/67 11/19/22 09:15 36.5 C 71 11/19/22 08:45 76 16 159/73 H 11/19/22 08:40 77 16 159/73 H 11/19/22 08:35 76 16 132/69 11/19/22 08:30 77 16 157/76 H 11/19/22 08:25 76 16 146/74 H 11/19/22 08:20 78 16 166/94 H 11/19/22 08:15 78 16 166/94 H 11/19/22 08:10 78 16 179/85 H 11/19/22 06:34 36.5 C 75 20 185/77 H 11/19/22 03:31 11/19/22 03:12 36.4 C L 77 18 161/84 H 11/18/22 23:57 73 11/18/22 23:34 36.4 C L 84 18 167/78 H Pulse Ox O2 Del Method O2 Del Method O2 Flow Rate 11/19/22 11:00 11/19/22 10:30 11/19/22 10:00 11/19/22 09:30 11/19/22 09:21 11/19/22 09:15 11/19/22 08:45 100 Oxymask 4 11/19/22 08:40 100 Oxymask 4 11/19/22 08:35 98 Oxymask 4 11/19/22 08:30 98 Oxymask 4 11/19/22 08:25 98 Oxymask 4 11/19/22 08:20 98 Oxymask 4 11/19/22 08:15 98 Oxymask 4 11/19/22 08:10 98 Oxymask 4 11/19/22 06:34 95 Room Air 11/19/22 03:31 Room Air 11/19/22 03:12 92 Room Air 11/18/22 23:57 11/18/22 23:34 90 Room Air PG Care Time/CCT Total # of Minutes Spent Total Time Spent with Patient: Total time spent is greater than 50% in coordination of care (as documented) at patient's floor/unit and/or counseling patient: Coding Level of Care Code 16011 SUB INP/OBS CARE 3/50MIN Diagnoses ESRD on dialysis N18.6; Z99.2 Secondary hyperparathyroidism N25.81 Anemia D64.9 Anemia type: unspecified type AMS (altered mental status) R41.82 Confusion R41.0 (3) Anemia Anemia type: unspecified type Qualified Code(s): D64.9 - Anemia, unspecified
[2022-11-19] MEDS: AMIODARONE 200 MG TAB PO SCH (14:20)
[2022-11-19] MEDS: ACETAMINOPHEN 325 MG TAB PO SCH ×2 (14:20→22:40)
[2022-11-19] MEDS: amLODIPine BESYLATE 5 MG TAB PO SCH (14:21)
[2022-11-19] MEDS: CALCITRIOL 0.25 MCG CAPSULE PO SCH (14:21)
[2022-11-19] MEDS: CINACALCET HCL 30 MG TAB PO SCH ×2 (14:22→22:35)
[2022-11-19] MEDS: DOCUSATE SODIUM 100 MG CAP PO SCH ×2 (14:24→22:35)
[2022-11-19] MEDS: DIVALPROEX DELAY RELEASE 500 MG TAB PO SCH (14:24)
[2022-11-19] MEDS: HEPARIN SOD 5,000 UNIT/0.5 ML VIAL SQ SCH ×2 (14:24→22:35)
[2022-11-19] MEDS: guaiFENesin 600 MG TABCR PO SCH ×2 (14:24→22:33)
[2022-11-19] MEDS: THIAMINE HCL 100 MG TAB PO SCH (14:25)
[2022-11-19] MEDS: POLYETHYLENE (MIRALAX) 17 GM PACK PO SCH ×3 (14:25→22:09)
[2022-11-19 14:43] LABS: Hematocrit (blood only) 32.9 % (42.0-52.0); Hemoglobin 10.8 g/dl (14.0-18.0); Mean Corpuscular Hemoglobin 29.8 pg (25.0-34.0); Mean Corpuscular Hgb Conc 32.8 g/dL (32.0-36.0); Mean Corpuscular Volume 90.6 fL (80.0-100.0); Platelet Count 317 K/uL (130-400); RDW Coefficient of Variation 18.6 % (11.5-14.5); RDW Standard Deviation 62.1 fL (36.4-46.3); Red Blood Count 3.63 M/uL (4.70-6.10); White Blood Count 7.29 K/ul (4.8-10.8)
[2022-11-19 15:04] LABS: BUN Creatinine Ratio 5.7 (10-20); C Reactive Protein 20.74 mg/dl (0-0.5); Calcium 8.6 mg/dl (8.6-10.3); Creatinine Clr Calc Pharmacy 7.9 ml/min; Est GFR (African American) 7.1 ml/min; Est GFR (Non-African American) 6.1 ml/min; Magnesium 1.9 mg/dl (1.7-2.4); Potassium 3.9 mmol/L (3.5-5.1)
--- NOTE | 2022-11-19 16:58 | Hospitalist Progress Note ---
Date of Service November 19, 2022 Assessment & Plan (1) Metabolic encephalopathy: Plan: Patient is a 72-year-old male with past medical history of end-stage renal disease on dialysis secondary to polycystic kidney disease peritoneal who presented to the emergency department for confusion and weakness. Patient has improved with minimal intervention and is being seen by nephrology who recommended switching to hemodialysis. -Nephrology feels that confusion is not due to peritoneal dialysis/uremia as patient is meeting clearance goals -Current dialysis catheter drained and sent for culture, WBC seen but no organism -UA was positive for leukocyte Esterase and white blood cells but patient is asymptomatic, culture negative (<1000 colonies) -B12 and TSH within normal limits. -VBG showing acidosis at 7.26 on admission likely having some affect on MS. Repeat VBG in AM (2) High anion gap metabolic acidosis: Plan: -VBG showing acidosis at 7.26, recheck vbg in am now that dialysis has been achieved -Anion gap of 26 on admission -Could be playing a part in metabolic encephalopathy as above -Suspect secondary to uremia -Should improve with dialysis. -No indication for bicarb at this time (3) End-stage renal disease on peritoneal dialysis: Plan: -Patient has a history of ESRD on peritoneal dialysis regimen. -Patient's family however reports that patient has been having difficulty with his PD catheter drainage and has not had good treatments over the past few days. -Per nephro - since unable to comply with PD due to mental status - switch to HD -Pt given HD today, PD catheter remains as there is no malfunction per nephro -Will see how pt does on HD, may require AVF if needs to stay on HD over PD -S/p HD this on 11/19/22 (4) Ambulatory dysfunction: Plan: -Patient reported to have generalized weakness and fall. -Obtain PT OT eval, appreciate recommendations. (5) COPD (chronic obstructive pulmonary disease): Plan: -No evidence of acute exacerbation at this time -continue LAMA/LABA Plan Diet: Renal diet, heart healthy. DVT prophylaxis: Heparin Disposition: [facility] with telemetry CODE STATUS: Full code Admission and Anticipated Discharge Date Admission Date: November 18, 2022 Supervising Physician Co-Signing Physician Notes Resident Physician Supervision Note: I independently interviewed and examined the patient and verified the reyes history and physical, reviewed labs and image studies and agree with resident findings and care plan. Subjective Patient seen at bedside this afternoon after having hemodialysis. Patient appears well. Alert and oriented x3. No new complaints at this time. Review of Systems Review of Systems: All systems reviewed & are unremarkable except as noted in HPI & below Physical Exam Constitutional: WD/WN, vitals as above Eyes: + anicteric sclerae Neck: normal visual inspection Respiratory: normal respiratory effort, lungs clear to auscultation Cardiovascular: RRR, no murmur, no edema Gastrointestinal (Abdomen): Inspection/Auscultation: abdomen normal to inspection and normal bowel sounds Musculoskeletal: Head/Neck/Chest: normocephalic and head atraumatic Skin: no rashes, warm and dry Neurologic: moves all extremities Psychiatric: Orientation: alert and oriented x 3 Results & Data Results & Data Vital Signs (Past 12 Hours) Vital Signs Temp Pulse Pulse Pulse Pulse Resp BP 11/19/22 14:15 91 H 18 11/19/22 13:18 85 11/19/22 13:00 36.5 C 89 18 11/19/22 14:16 91 H 11/19/22 12:20 36.6 C 90 11/19/22 12:00 87 105/63 11/19/22 11:30 85 116/67 11/19/22 07:41 71 11/19/22 11:00 89 124/72 11/19/22 10:30 86 112/59 L 11/19/22 10:00 77 149/71 H 11/19/22 09:30 72 123/64 11/19/22 09:21 77 126/67 11/19/22 09:15 36.5 C 71 11/19/22 08:45 76 16 11/19/22 08:40 77 16 11/19/22 08:35 76 16 11/19/22 08:30 77 16 11/19/22 08:25 76 16 11/19/22 08:20 78 16 11/19/22 08:15 78 16 11/19/22 08:10 78 16 11/19/22 06:34 36.5 C 75 20 BP Pulse Ox O2 Del Method O2 Flow Rate 11/19/22 14:15 162/80 H 91 Room Air 11/19/22 13:18 11/19/22 13:00 142/75 H 92 Room Air 11/19/22 14:16 162/80 H 93 Room Air 06/01/23 12:20 129/69 11/19/22 12:00 11/19/22 11:30 11/19/22 07:41 11/19/22 11:00 11/19/22 10:30 11/19/22 10:00 11/19/22 09:30 11/19/22 09:21 11/19/22 09:15 11/19/22 08:45 159/73 H 100 Oxymask 4 11/19/22 08:40 159/73 H 100 Oxymask 4 11/19/22 08:35 132/69 98 Oxymask 4 11/19/22 08:30 157/76 H 98 Oxymask 4 11/19/22 08:25 146/74 H 98 Oxymask 4 11/19/22 08:20 166/94 H 98 Oxymask 4 11/19/22 08:15 166/94 H 98 Oxymask 4 11/19/22 08:10 179/85 H 98 Oxymask 4 11/19/22 06:34 185/77 H 95 Room Air (5) COPD (chronic obstructive pulmonary disease) COPD type: unspecified COPD Qualified Code(s): J44.9 - Chronic obstructive pulmonary disease, unspecified
[2022-11-19] MEDS: UMECLIDINIUM/VILANTEROL 62.5/25MCG 7 PUFFS/INHALER INH SCH (18:19)
[2022-11-19] MEDS: QUEtiapine FUMARATE 25 MG TABLET PO SCH (22:35)
--- NOTE | 2022-11-20 05:25 | Hospitalist Progress Note ---
Date of Service November 20, 2022 Assessment & Plan (1) Metabolic encephalopathy: Plan: Sisi is a 72-year-old male with past medical history of ESRD secondary to PKD on home PD at time of admission who presented to the emergency department for confusion and weakness, subsequently found to have progressive renal dysfunction. Patient has improved with minimal intervention and is being seen by nephrology who recommended switching to hemodialysis. Weakness, Ambulatory Dysfunction Metabolic Encephalopathy -- Resolved - Presented with confusion and weakness ongoing over several days with a fall; also took extra doses of home medications (in this state) prior to coming in - Likely multifactorial: acidemia, some degree of uremia - Work-up as follows: - No leukocytosis, interestingly CRP 20.7 and PCT 26.1 on admission though +ESRD; BCX, UCX negative - BUN 92 / Cr 12.6 on admission (notable jump from prior) - HCO3 20 / Cl 94 / AG 23 on admission (in setting of uremia) - TSH, B12 within normal limits - Dialysis drain with mild WBCs, though no organisms seen; culture pending - Improved with HD that was initiated while here. - Unsafe to resume PD at home at this time. May consider in near future pending progress - Disposition plans pending. PT, OT. Anion-gap Metabolic Acidosis -- acidosis resolved, AG improving s/p HD - AG 23 with HCO3 20 with VBG 7.26 on admission -- pH now normalized, AG downtrending - Suspect largely secondary to uremia - Improved following initiation of HD - Likely contributing to encephalopathy ESRD - Patient has a history of ESRD on PD at home prior to admission; though family notes he has been having difficulty with catheter at home with poor drainage/treatment completion BMET - Nephrology following: Continue HD for now; not yet safe to resume PD given confusion. - Venofer given while here - Continue phosphate binder - [facility] for outpatient dialysis upon discharge COPD - Continue home inhalers Diet: Renal diet, heart healthy. DVT prophylaxis: Heparin [facility] CODE STATUS: Full code (2) High anion gap metabolic acidosis: (3) End-stage renal disease on peritoneal dialysis: (4) Ambulatory dysfunction: (5) COPD (chronic obstructive pulmonary disease): Admission and Anticipated Discharge Date Admission Date: November 18, 2022 Supervising Physician Co-Signing Physician Notes Resident Physician Supervision Note: I independently interviewed and examined the patient and verified the reyes history and physical, reviewed labs and image studies and agree with resident findings and care plan. Subjective NAEO. Feeling great this morning. Appetite is strong. No n/v. Review of Systems Review of Systems: as per HPI Physical Exam Physical Exam: General: 72-year old male who is alert, oriented, and is in NAD. HEENT: NCAT. - Eyes - Sclera are white, anicteric, and without injection. - Mouth - MMM - Neck - supple, no appreciable JVD Cardiac: Normal rate and regular rhythm; S1 and S2 present with no murmur detected Pulmonary: Good respiratory effort with symmetric expansion of the chest. No use of accessory muscles. Lungs were CTAB Abdominal: Normoactive bowel sounds. Abdomen was soft, nondistended, and non-tender to palpation. Extremities: Upper and lower extremities are warm and well perfused. No peripheral edema in the lower extremities bilaterally Results & Data Results & Data Vital Signs (Past 12 Hours) Vital Signs Temp Pulse Pulse Pulse Resp BP Pulse Ox 11/20/22 04:17 36.6 C 78 20 146/78 H 92 11/20/22 03:00 11/20/22 00:25 84 11/19/22 23:48 36.4 C L 77 20 145/76 H 94 11/19/22 23:14 11/19/22 20:06 36.6 C 74 20 148/68 H 94 11/19/22 19:21 74 16 94 O2 Del Method O2 Del Method 11/20/22 04:17 Room Air 11/20/22 03:00 Room Air 11/20/22 00:25 11/19/22 23:48 Room Air 11/19/22 23:14 Room Air 11/19/22 20:06 Room Air 11/19/22 19:21 Room Air Resident Activity Tracking Resident Involvement: Resident Care Provided Care Provided: Adult Hospital Medicine (5) COPD (chronic obstructive pulmonary disease) COPD type: unspecified COPD Qualified Code(s): J44.9 - Chronic obstructive pulmonary disease, unspecified
[2022-11-20] MEDS: ALBUT/IPRATROP 3MG/0.5MG NEB 3 ML VIAL INH SCH ×2 (07:16→19:23)
[2022-11-20 07:49] LABS: Base Excess VBG -1.5 mEq/L; HCO3 VBG 24 mmol/L; Oxygen Saturation VBG < 60.0 %; PCO2 VBG 41 mmHg (38-50); PO2 VBG 38 mmHg; pH VBG 7.37 (7.36-7.41)
[2022-11-20 08:00] LABS: Hematocrit (blood only) 34.8 % (42.0-52.0); Hemoglobin 11.3 g/dl (14.0-18.0); Mean Corpuscular Hemoglobin 29.4 pg (25.0-34.0); Mean Corpuscular Hgb Conc 32.5 g/dL (32.0-36.0); Mean Corpuscular Volume 90.4 fL (80.0-100.0); Mean Platelet Volume 9.3 fL (9.4-12.4); Nucleated RBC # (auto) 0.02 K/uL (0-0.12); Nucleated RBC % (auto) 0.3 %; Platelet Count 287 K/uL (130-400); RDW Coefficient of Variation 18.9 % (11.5-14.5); RDW Standard Deviation 61.7 fL (36.4-46.3); Red Blood Count 3.85 M/uL (4.70-6.10)
[2022-11-20 08:17] LABS: Albumin Level 3.1 gm/dl (3.4-5.0); BUN Creatinine Ratio 5.7 (10-20); Calcium 8.9 mg/dl (8.6-10.3); Creatinine Clr Calc Pharmacy 6.6 ml/min; Est GFR (African American) 5.6 ml/min; Est GFR (Non-African American) 4.9 ml/min; Magnesium 1.9 mg/dl (1.7-2.4); Phosphorus 6.5 mg/dl (2.5-4.9); Potassium 3.9 mmol/L (3.5-5.1)
[2022-11-20] MEDS: IRON SUCROSE 200 MG in 0.9 % SODIUM CHLORIDE 100 ML IV SCH (08:48)
[2022-11-20] MEDS: ACETAMINOPHEN 325 MG TAB PO SCH ×2 (08:56→20:26)
[2022-11-20] MEDS: AMIODARONE 200 MG TAB PO SCH (08:57)
[2022-11-20] MEDS: POLYETHYLENE (MIRALAX) 17 GM PACK PO SCH ×2 (08:58→20:21)
[2022-11-20] MEDS: amLODIPine BESYLATE 5 MG TAB PO SCH (09:00)
[2022-11-20] MEDS: CALCITRIOL 0.25 MCG CAPSULE PO SCH (09:01)
[2022-11-20] MEDS: DIVALPROEX DELAY RELEASE 500 MG TAB PO SCH (09:01)
[2022-11-20] MEDS: CALCIUM CARBONATE 500 MG CHEWABLE TAB PO SCH ×3 (09:01→17:41)
[2022-11-20] MEDS: CINACALCET HCL 30 MG TAB PO SCH ×2 (09:01→20:20)
[2022-11-20] MEDS: DOCUSATE SODIUM 100 MG CAP PO SCH ×2 (09:01→20:27)
[2022-11-20] MEDS: UMECLIDINIUM/VILANTEROL 62.5/25MCG 7 PUFFS/INHALER INH SCH (09:02)
[2022-11-20] MEDS: guaiFENesin 600 MG TABCR PO SCH ×2 (09:02→20:20)
[2022-11-20] MEDS: THIAMINE HCL 100 MG TAB PO SCH (09:02)
[2022-11-20] MEDS: HEPARIN SOD 5,000 UNIT/0.5 ML VIAL SQ SCH ×2 (09:15→20:20)
--- NOTE | 2022-11-20 15:09 | Nephrology Progress Note ---
Date of Service November 20, 2022 Assessment & Plan (1) ESRD on dialysis: (2) Secondary hyperparathyroidism: (3) Anemia: (4) AMS (altered mental status): (5) Confusion: Plan 72 year-old gentlemen with ESRD secondary to polycystic kidney disease, on CCPD. Dialysis has been has regular. Admitted to the hospital yesterday after at home last night he was noted to be confused, taking his medications wrong specially taking extra dose last night including amiodarone, amlodipine, Depakote and stool softener. He was also very weak, itchy and had a fall while he was doing his peritoneal dialysis. Had TDC on 11/19/22 am and had first HD. --Plan for next HD tomorrow, continue to keep off of PD at this time ( because of his confusion and frequent fall, PD seems unsafe for him to be able to do on his own, not because PD catheter was having malfunction, leave the catheter for now). Based on the response, will decide in future whether he can go back to PD or not. If not then, he will need AVF. --left arm nephrology precaution, continue on renal diet, dose medications for GFR less than 10 --continue phosphate binder with meal --on venofer --waiting on Rehab and set up outpt dialysis at [facility] Will follow Admission and Anticipated Discharge Date Admission Date: November 18, 2022 Abraham Laird was seen and evaluated this morning. Overall he is feeling well, denies any symptoms/concerns, no confusion, electrolyte acceptable. BP improved, tolerated HD yesterday. Review of Systems Review of Systems: detailed review of system was done and pertinent positives and negatives are mentioned above. Physical Exam Constitutional: WD/WN, vitals as above no acute distress Eyes: + anicteric sclerae Neck: normal visual inspection Respiratory: no respiratory distress Auscultation: lungs clear to auscultation bilaterally Cardiovascular: Rate/Rhythm: regular rate and regular rhythm Heart Sounds: normal S1 and normal S2 Extremities: + vascular access device (left IJ TDC.); no edema Musculoskeletal: Extremities: extremities normal to inspection Skin: no rashes, warm and dry Neurologic: no focal motor deficits Psychiatric: Orientation: alert and oriented x 3 Affect: euthymic affect Results & Data Vital Signs (Past 12 Hours) Vital Signs Temp Pulse Pulse Pulse Resp BP Pulse Ox 11/20/22 11:45 36.4 C L 87 16 113/66 92 11/20/22 09:37 36.3 C L 85 134/63 93 11/20/22 08:51 36.6 C 80 16 123/64 91 11/20/22 08:09 36.6 C 81 16 148/80 H 99 11/20/22 07:50 82 11/20/22 07:17 82 18 96 11/20/22 04:17 36.6 C 78 20 146/78 H 92 O2 Del Method 11/20/22 11:45 Room Air 11/20/22 09:37 Room Air 11/20/22 08:51 Room Air 11/20/22 08:09 Nebulizer 11/20/22 07:50 11/20/22 07:17 Room Air 11/20/22 04:17 Room Air PG Care Time/CCT Total # of Minutes Spent Total Time Spent with Patient: Total time spent is greater than 50% in coordination of care (as documented) at patient's floor/unit and/or counseling patient: Coding Level of Care Code 41807 SUB INP/OBS CARE 2/35MIN Diagnoses ESRD on dialysis N18.6; Z99.2 Secondary hyperparathyroidism N25.81 Anemia D64.9 Anemia type: unspecified type AMS (altered mental status) R41.82 Confusion R41.0 (3) Anemia Anemia type: unspecified type Qualified Code(s): D64.9 - Anemia, unspecified
[2022-11-20] MEDS: QUEtiapine FUMARATE 25 MG TABLET PO SCH (20:20)
[2022-11-20] MEDS: ACETAMINOPHEN 325 MG TAB PO PRN (23:00)
[2022-11-21] MEDS: ALBUT/IPRATROP 3MG/0.5MG NEB 3 ML VIAL INH SCH ×2 (07:27→19:03)
--- NOTE | 2022-11-21 08:11 | Hospitalist Progress Note ---
Date of Service November 21, 2022 Assessment & Plan (1) Metabolic encephalopathy: Plan: Sisi is a 72-year-old male with past medical history of ESRD secondary to PKD on home PD at time of admission who presented to the emergency department for confusion and weakness, subsequently found to have progressive renal dysfunction. Patient has improved with minimal intervention and is being seen by nephrology who recommended switching to hemodialysis. Weakness, Ambulatory Dysfunction Metabolic Encephalopathy -- Resolved - Presented with confusion and weakness ongoing over several days with a fall; also took extra doses of home medications (in this state) prior to coming in - Suspect largely secondary to acidemia and uremia. Infectious and metabolic work-up otherwise returning negative. - Resolved with initiation of HD - Disposition plans pending. PT, OT. Anion-gap Metabolic Acidosis -- acidosis resolved, AG improving s/p HD - AG 23 with HCO3 20 with VBG 7.26 on admission -- pH now normalized, AG downtrending - Suspect largely secondary to uremia - Improved following initiation of HD - Likely contributing to encephalopathy ESRD - Patient has a history of ESRD on PD at home prior to admission; though family notes he has been having difficulty with catheter at home with poor drainage/treatment completion [employer] - Nephrology following: Continue HD for now - Unsafe to resume PD at home at this time. May consider in near future pending progress and re-evaluations of mental status. - Venofer given while here, phosphate binder ongoing - [facility] for outpatient dialysis upon discharge COPD - Continue home inhalers Diet: Renal diet, heart healthy. DVT prophylaxis: Heparin Disposition: [facility] with telemetry, case management working on discharge disposition CODE STATUS: Full code (2) High anion gap metabolic acidosis: (3) End-stage renal disease on peritoneal dialysis: (4) Ambulatory dysfunction: (5) COPD (chronic obstructive pulmonary disease): Admission and Anticipated Discharge Date Admission Date: November 18, 2022 Supervising Physician Co-Signing Physician Notes Resident Physician Supervision Note: I independently interviewed and examined the patient and verified the reyes history and physical, reviewed labs and image studies and agree with resident findings and care plan. Subjective Feeling fine. Ready for dialysis. Denies pain and dyspnea. Answers questions appropriately. Review of Systems Review of Systems: as per HPI Physical Exam Physical Exam: General: 72-year old male who is alert, oriented, and is in NAD. HEENT: NCAT. - Eyes - Sclera are white, anicteric, and without injection. - Mouth - MMM - Neck - supple, no appreciable JVD Cardiac: Normal rate and regular rhythm; S1 and S2 present with no murmur detected Pulmonary: Good respiratory effort with symmetric expansion of the chest. No use of accessory muscles. Lungs were CTAB Abdominal: Normoactive bowel sounds. Abdomen was soft, nondistended, and non- tender to palpation. Extremities: Upper and lower extremities are warm and well perfused. No peripheral edema in the lower extremities bilaterally Results & Data Results & Data Vital Signs (Past 12 Hours) Vital Signs Temp Pulse Pulse Resp BP Pulse Ox O2 Del Method 11/21/22 07:59 36.5 C 71 18 153/78 H 94 Room Air 11/21/22 07:27 89 16 91 Room Air 11/21/22 03:56 36.9 C 78 18 157/82 H 93 Room Air 11/20/22 22:03 75 11/20/22 23:44 36.5 C 72 18 156/77 H 91 Room Air Resident Activity Tracking Resident Involvement: Resident Care Provided Care Provided: Adult Hospital Medicine (5) COPD (chronic obstructive pulmonary disease) COPD type: unspecified COPD Qualified Code(s): J44.9 - Chronic obstructive pulmonary disease, unspecified
[2022-11-21] MEDS: CALCIUM CARBONATE 500 MG CHEWABLE TAB PO SCH ×3 (08:22→17:39)
[2022-11-21] MEDS: ACETAMINOPHEN 325 MG TAB PO SCH ×2 (08:23→20:54)
[2022-11-21] MEDS: CALCITRIOL 0.25 MCG CAPSULE PO SCH (08:24)
[2022-11-21] MEDS: DIVALPROEX DELAY RELEASE 500 MG TAB PO SCH (08:24)
[2022-11-21] MEDS: CINACALCET HCL 30 MG TAB PO SCH ×2 (08:24→20:55)
[2022-11-21 08:25] LABS: Basophils # (auto) 0.07 K/uL (0-0.2); Basophils % (auto) 0.8 %; Eosinophils # (auto) 0.55 K/uL (0-0.50); Hematocrit (blood only) 29.3 % (42.0-52.0); Hemoglobin 9.7 g/dl (14.0-18.0); Immature Granulocytes # (auto) 0.25 K/uL (0.01-0.20); Immature Granulocytes % (auto) 2.7 %; Lymphocytes # (auto) 0.85 K/uL (1.2-3.4); Lymphocytes % (auto) 9.3 %; Mean Corpuscular Hemoglobin 29.4 pg (25.0-34.0); Mean Corpuscular Hgb Conc 33.1 g/dL (32.0-36.0); Mean Corpuscular Volume 88.8 fL (80.0-100.0); Mean Platelet Volume 9.8 fL (9.4-12.4); Monocytes # (auto) 1.32 K/uL (0.11-0.59); Monocytes % (auto) 14.5 %; Neutrophils # (auto) 6.08 K/uL (1.40-6.50); Neutrophils % (auto) 66.7 %; Platelet Count 241 K/uL (130-400); RDW Coefficient of Variation 17.7 % (11.5-14.5); RDW Standard Deviation 57.7 fL (36.4-46.3); White Blood Count 9.12 K/ul (4.8-10.8)
[2022-11-21] MEDS: HEPARIN SOD 5,000 UNIT/0.5 ML VIAL SQ SCH ×2 (08:25→20:55)
[2022-11-21] MEDS: THIAMINE HCL 100 MG TAB PO SCH (08:25)
[2022-11-21] MEDS: guaiFENesin 600 MG TABCR PO SCH ×2 (08:25→20:54)
[2022-11-21] MEDS: POLYETHYLENE (MIRALAX) 17 GM PACK PO SCH ×2 (08:25→20:55)
[2022-11-21] MEDS: UMECLIDINIUM/VILANTEROL 62.5/25MCG 7 PUFFS/INHALER INH SCH (08:26)
[2022-11-21 08:50] LABS: BUN Creatinine Ratio 6.5 (10-20); Calcium 8.5 mg/dl (8.6-10.3); Creatinine Clr Calc Pharmacy 6.1 ml/min; Est GFR (African American) 5.3 ml/min; Est GFR (Non-African American) 4.5 ml/min; Magnesium 1.8 mg/dl (1.7-2.4); Phosphorus 7.5 mg/dl (2.5-4.9); Potassium 3.9 mmol/L (3.5-5.1)
[2022-11-21] MEDS ORDERED: EPOETIN ALFA 10,000 UNITS/ML VIAL IV STA (09:11)
[2022-11-21] MEDS: IRON SUCROSE 200 MG in 0.9 % SODIUM CHLORIDE 100 ML IV SCH (09:46)
--- NOTE | 2022-11-21 10:57 | Nephrology Progress Note ---
Date of Service November 21, 2022 Assessment & Plan (1) ESRD on dialysis: (2) Secondary hyperparathyroidism: (3) Anemia: (4) AMS (altered mental status): (5) Confusion: Plan 72 year-old gentlemen with ESRD secondary to polycystic kidney disease, on CCPD. Dialysis has been has regular. Admitted to the hospital yesterday after at home last night he was noted to be confused, taking his medications wrong specially taking extra dose last night including amiodarone, amlodipine, Depakote and stool softener. He was also very weak, itchy and had a fall while he was doing his peritoneal dialysis. Had TDC on 11/19/22 am and had first HD. Tolerating dialysis today, tolerating UF. Blood pressure control. Otherwise asymptomatic. --continue on intermittent hemodialysis, to keep off of PD at this time ( because of his confusion and frequent fall, PD seems unsafe for him to be able to do on his own, not because PD catheter was having malfunction, leave the catheter for now). Based on the response, will decide in future whether he can go back to PD or not. If not then, he will need AVF. --left arm nephrology precaution, continue on renal diet, dose medications for GFR less than 10 --continue phosphate binder with meal --on venofer --waiting on Rehab and set up outpt dialysis at [facility] Will follow Admission and Anticipated Discharge Date Admission Date: November 18, 2022 Abraham Laird was seen and evaluated this morning during dialysis. Overall he is feeling well, denies any symptoms/concerns, no confusion, electrolyte acceptable. BP im proved. Review of Systems Review of Systems: detailed review of system was done and pertinent positives and negatives are mentioned above. Physical Exam Constitutional: WD/WN, vitals as above no acute distress Eyes: + anicteric sclerae Neck: normal visual inspection Respiratory: no respiratory distress Auscultation: lungs clear to auscultation bilaterally Cardiovascular: Rate/Rhythm: regular rate and regular rhythm Heart Sounds: normal S1 and normal S2 Extremities: + vascular access device (left IJ TDC.); no edema Musculoskeletal: Extremities: extremities normal to inspection Skin: no rashes, warm and dry Neurologic: no focal motor deficits Psychiatric: Orientation: alert and oriented x 3 Affect: euthymic affect Results & Data Vital Signs (Past 12 Hours) Vital Signs Temp Pulse Pulse Pulse Resp BP BP 06/03/23 10:30 78 111/63 11/21/22 10:00 80 144/79 H 11/21/22 09:30 80 144/79 H 11/21/22 09:24 36.5 C 79 11/21/22 07:59 36.5 C 71 18 153/78 H 11/21/22 07:27 89 16 11/21/22 03:56 36.9 C 78 18 157/82 H 11/20/22 23:44 36.5 C 72 18 156/77 H Pulse Ox O2 Del Method 11/21/22 10:30 11/21/22 10:00 11/21/22 09:30 11/21/22 09:24 11/21/22 07:59 94 Room Air 11/21/22 07:27 91 Room Air 11/21/22 03:56 93 Room Air 11/20/22 23:44 91 Room Air PG Care Time/CCT Total # of Minutes Spent Total Time Spent with Patient: Total time spent is greater than 50% in coordination of care (as documented) at patient's floor/unit and/or counseling patient: Coding Level of Care Code 10074 SUB INP/OBS CARE 2/35MIN Diagnoses ESRD on dialysis N18.6; Z99.2 Secondary hyperparathyroidism N25.81 Anemia D64.9 Anemia type: unspecified type AMS (altered mental status) R41.82 Confusion R41.0 (3) Anemia Anemia type: unspecified type Qualified Code(s): D64.9 - Anemia, unspecified
[2022-11-21] MEDS: AMIODARONE 200 MG TAB PO SCH (14:57)
[2022-11-21] MEDS: amLODIPine BESYLATE 5 MG TAB PO SCH (14:58)
[2022-11-21] MEDS: DOCUSATE SODIUM 100 MG CAP PO SCH ×2 (14:59→20:54)
[2022-11-21] MEDS: MELATONIN 3 MG TAB PO PRN (20:54)
[2022-11-21] MEDS: QUEtiapine FUMARATE 25 MG TABLET PO SCH (20:56)
[2022-11-22] MEDS: ALBUT/IPRATROP 3MG/0.5MG NEB 3 ML VIAL INH SCH ×2 (07:20→19:40)
--- NOTE | 2022-11-22 07:47 | Hospitalist Progress Note ---
Date of Service November 22, 2022 Assessment & Plan (1) Metabolic encephalopathy: Plan: Sisi is a 72-year-old male with past medical history of ESRD secondary to PKD on home PD at time of admission who presented to the emergency department for confusion and weakness, subsequently found to have progressive renal dysfunction. Patient has improved with minimal intervention and is being seen by nephrology who recommended switching to hemodialysis. Weakness, Ambulatory Dysfunction Metabolic Encephalopathy -- Resolved - Presented with confusion and weakness ongoing over several days with a fall; also took extra doses of home medications (in this state) prior to coming in - Suspect largely secondary to acidemia and uremia. Infectious and metabolic work-up otherwise returning negative. 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 May consider in near future pending progress and re-evaluations of mental status. - Venofer given while here, phosphate binder ongoing - [facility] for outpatient dialysis upon discharge COPD - Continue home inhalers Insomnia - currently receiving melatonin 15 mg HS PRN - cautious to add more sedating agents in the setting of his age and Alzheimer's; will trial small dose of hydroxyzine (10 mg) HS PRN Diet: Renal diet, heart healthy DVT prophylaxis: Heparin Disposition: [facility] with telemetry, case management working on discharge disposition CODE STATUS: Full code (2) High anion gap metabolic acidosis: (3) End-stage renal disease on peritoneal dialysis: (4) Ambulatory dysfunction: (5) COPD (chronic obstructive pulmonary disease): Admission and Anticipated Discharge Date Admission Date: November 18, 2022 Supervising Physician Co-Signing Physician Notes Resident Physician Supervision Note: I independently interviewed and examined the patient and verified the reyes history and physical, reviewed labs and image studies and agree with resident findings and care plan. Subjective Pt doing well. Sitting in bed eating muffins with family at bedside. Family is concerned about his sleep pattern as he awoke this morning at 2 AM and has been up since then. No other concerns. Review of Systems Review of Systems: As per HPI Physical Exam Physical Exam: Constitutional: well appearing, no acute distress HEENT: normocephalic, no conjunctival injection CV: RRR, no murmur, no LE edema Respiratory: CTA bilaterally. No rhonchi, wheezes, or crackles. No increased work of breathing MSK: no gross deformities noted Skin: warm, dry, no rashes Psych: mood and affect congruent Results & Data Results & Data Vital Signs (Past 12 Hours) Vital Signs Temp Pulse Pulse Resp BP Pulse Ox O2 Del Method 11/22/22 07:21 74 18 93 Room Air 11/22/22 03:54 36.4 C L 81 18 171/80 H 93 Room Air 11/21/22 20:00 Room Air 11/21/22 23:00 36.3 C L 82 19 156/73 H 94 Room Air Resident Activity Tracking Resident Involvement: Resident Care Provided Care Provided: Adult Hospital Medicine (5) COPD (chronic obstructive pulmonary disease) COPD type: unspecified COPD Qualified Code(s): J44.9 - Chronic obstructive pulmonary disease, unspecified
[2022-11-22 08:41] LABS: Hematocrit (blood only) 32.8 % (42.0-52.0); Hemoglobin 10.5 g/dl (14.0-18.0); Mean Corpuscular Hemoglobin 29.7 pg (25.0-34.0); Mean Corpuscular Volume 92.9 fL (80.0-100.0); Mean Platelet Volume 9.9 fL (9.4-12.4); Platelet Count 262 K/uL (130-400); RDW Coefficient of Variation 18.6 % (11.5-14.5); RDW Standard Deviation 63.1 fL (36.4-46.3); Red Blood Count 3.53 M/uL (4.70-6.10); White Blood Count 10.63 K/ul (4.8-10.8)
[2022-11-22] MEDS: AMIODARONE 200 MG TAB PO SCH (09:02)
[2022-11-22] MEDS: amLODIPine BESYLATE 5 MG TAB PO SCH (09:02)
[2022-11-22 09:03] LABS: Creatinine Clr Calc Pharmacy 10.2 ml/min; Est GFR (African American) 8.6 ml/min; Est GFR (Non-African American) 7.4 ml/min
[2022-11-22] MEDS: CALCITRIOL 0.25 MCG CAPSULE PO SCH (09:03)
[2022-11-22 09:04] LABS: BUN Creatinine Ratio 5.2 (10-20); Calcium 8.9 mg/dl (8.6-10.3); Magnesium 1.8 mg/dl (1.7-2.4); Phosphorus 6.4 mg/dl (2.5-4.9); Potassium 3.9 mmol/L (3.5-5.1)
[2022-11-22] MEDS: guaiFENesin 600 MG TABCR PO SCH ×2 (09:04→20:54)
[2022-11-22] MEDS: CINACALCET HCL 30 MG TAB PO SCH ×2 (09:04→20:53)
[2022-11-22] MEDS: DIVALPROEX DELAY RELEASE 500 MG TAB PO SCH (09:04)
[2022-11-22] MEDS: HEPARIN SOD 5,000 UNIT/0.5 ML VIAL SQ SCH ×2 (09:04→20:53)
[2022-11-22] MEDS: THIAMINE HCL 100 MG TAB PO SCH (09:05)
[2022-11-22] MEDS: IRON SUCROSE 200 MG in 0.9 % SODIUM CHLORIDE 100 ML IV SCH (09:05)
[2022-11-22] MEDS: UMECLIDINIUM/VILANTEROL 62.5/25MCG 7 PUFFS/INHALER INH SCH (09:06)
[2022-11-22] MEDS: ACETAMINOPHEN 325 MG TAB PO SCH ×2 (10:04→20:57)
[2022-11-22] MEDS: CALCIUM CARBONATE 500 MG CHEWABLE TAB PO SCH ×3 (10:04→17:36)
[2022-11-22] MEDS: DOCUSATE SODIUM 100 MG CAP PO SCH ×2 (10:05→20:57)
[2022-11-22] MEDS: NEPHROCAPS PO SCH (10:05)
[2022-11-22] MEDS: POLYETHYLENE (MIRALAX) 17 GM PACK PO SCH ×2 (10:06→21:19)
--- NOTE | 2022-11-22 11:34 | Nephrology Progress Note ---
Date of Service November 22, 2022 Assessment & Plan (1) ESRD on dialysis: (2) Secondary hyperparathyroidism: (3) Anemia: (4) AMS (altered mental status): (5) Confusion: Plan 72 year-old gentlemen with ESRD secondary to polycystic kidney disease, on CCPD. Dialysis has been has regular. Admitted to the hospital yesterday after at home last night he was noted to be confused, taking his medications wrong specially taking extra dose last night including amiodarone, amlodipine, Depakote and stool softener. He was also very weak, itchy and had a fall while he was doing his peritoneal dialysis. Had TDC on 11/19/22 am and had first HD. --continue on intermittent hemodialysis, keep off of PD at this time ( because of his confusion and frequent fall, PD seems unsafe for him to be able to do on his own, not because PD catheter was having malfunction, leave the catheter for now). Based on the response, will decide in future whether he can go back to PD or not. If not then, he will need AVF. --left arm nephrology precaution, continue on renal diet, dose medications for GFR less than 10 --continue phosphate binder with meal --on venofer --waiting on Rehab and set up outpt dialysis at [facility] Will follow Admission and Anticipated Discharge Date Admission Date: November 18, 2022 Abraham Laird was seen and evaluated this morning. Overall he is feeling well, denies any symptoms/concerns, no confusion, electrolyte acceptable. BP slightly elevated, usually improves with UF. Review of Systems Review of Systems: detailed review of system was done and pertinent positives and negatives are mentioned above. Physical Exam Constitutional: WD/WN, vitals as above no acute distress Eyes: + anicteric sclerae Neck: normal visual inspection Respiratory: no respiratory distress Auscultation: lungs clear to auscultation bilaterally Cardiovascular: Rate/Rhythm: regular rate and regular rhythm Heart Sounds: normal S1 and normal S2 Extremities: + vascular access device (left IJ TDC.); no edema Musculoskeletal: Extremities: extremities normal to inspection Skin: no rashes, warm and dry Neurologic: no focal motor deficits Psychiatric: Orientation: alert and oriented x 3 Affect: euthymic affect Results & Data Vital Signs (Past 12 Hours) Vital Signs Temp Pulse Pulse Resp BP Pulse Ox O2 Del Method 11/22/22 08:14 36.6 C 71 18 169/77 H 93 Room Air 11/22/22 07:21 74 18 93 Room Air 11/22/22 03:54 36.4 C L 81 18 171/80 H 93 Room Air PG Care Time/CCT Total # of Minutes Spent Total Time Spent with Patient: Total time spent is greater than 50% in coordination of care (as documented) at patient's floor/unit and/or counseling patient: Coding Level of Care Code 06443 SUB INP/OBS CARE 2/35MIN Diagnoses ESRD on dialysis N18.6; Z99.2 Secondary hyperparathyroidism N25.81 Anemia D64.9 Anemia type: unspecified type AMS (altered mental status) R41.82 Confusion R41.0 (3) Anemia Anemia type: unspecified type Qualified Code(s): D64.9 - Anemia, unspecified
[2022-11-22] MEDS ORDERED: hydrOXYzine HCl 10 MG TAB PO PRN (13:09)
[2022-11-22] MEDS: QUEtiapine FUMARATE 25 MG TABLET PO SCH (20:53)
[2022-11-22] MEDS: MELATONIN 3 MG TAB PO PRN (21:00)
[2022-11-23] MEDS: ALBUT/IPRATROP 3MG/0.5MG NEB 3 ML VIAL INH SCH ×2 (07:11→19:14)
[2022-11-23 08:04] LABS: Hematocrit (blood only) 31.4 % (42.0-52.0); Hemoglobin 10.2 g/dl (14.0-18.0); Mean Corpuscular Hemoglobin 29.6 pg (25.0-34.0); Mean Corpuscular Hgb Conc 32.5 g/dL (32.0-36.0); Mean Platelet Volume 10.3 fL (9.4-12.4); Platelet Count 232 K/uL (130-400); RDW Coefficient of Variation 18.1 % (11.5-14.5); RDW Standard Deviation 59.4 fL (36.4-46.3); Red Blood Count 3.45 M/uL (4.70-6.10); White Blood Count 9.95 K/ul (4.8-10.8)
--- NOTE | 2022-11-23 08:19 | Hospitalist Progress Note ---
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 Patient has improved with minimal intervention and is being seen by nephrology who recommended switching to hemodialysis. Weakness, Ambulatory Dysfunction Metabolic Encephalopathy -- Resolved - Presented with confusion and weakness ongoing over several days with a fall; also took extra doses of home medications (in this state) prior to coming in - Suspect largely secondary to acidemia and uremia. Infectious and metabolic work-up otherwise returning negative. 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 May consider in near future pending progress and re-evaluations of mental status. - Venofer given while here, phosphate binder ongoing - [facility] for outpatient dialysis upon discharge COPD - Continue home inhalers Insomnia - currently receiving melatonin 15 mg HS PRN - cautious to add more sedating agents in the setting of his age and Alzheimer's; will trial small dose of hydroxyzine (10 mg) HS PRN Diet: Renal diet, heart healthy DVT prophylaxis: Heparin Disposition: [facility] with telemetry, case management working on discharge disposition and will contact [facility] tomorrow morning. CODE STATUS: Full code (2) High anion gap metabolic acidosis: (3) End-stage renal disease on peritoneal dialysis: (4) Ambulatory dysfunction: (5) COPD (chronic obstructive pulmonary disease): Admission and Anticipated Discharge Date Admission Date: November 18, 2022 Supervising Physician Co-Signing Physician Notes I personally examined the patient and verified all reyes points of history and exam, discussed case, and agree with decision making with Dr Vides Getting dialysis whenever I see him. Sleeping comfortably. No new issues noted. Vitals noted, in general he is sleeping and in no distress. Breathing unlabored no accessory muscle use good effort. Skin shows no rashes no pallor or icterus. Uremic encephalopathyimproved with dialysis. HD ongoing. Working on SNF/rehab. Overall stable once bed available. Otherwise as above. Hyponatremiafollow Subjective Patient was seen at the bedside this morning with only acute complaint of itchiness across whole back which he's had since coming in. Denies shortness of breath or chest pain. Will go to hemodialysis today. Eating well this morning. Review of Systems Review of Systems: As per HPI Physical Exam Constitutional: WD/WN, vitals as above Respiratory: normal respiratory effort, lungs clear to auscultation Cardiovascular: RRR, no murmur, no edema Gastrointestinal (Abdomen): normal bowel sounds, soft, nontender, no hepat osplenomegaly Skin: no rashes, warm and dry No rashes visualized at the back. Psychiatric: A+Ox3, euthymic affect Results & Data Results & Data Vital Signs (Past 12 Hours) Vital Signs Temp Pulse Pulse Resp BP Pulse Ox O2 Del Method 11/23/22 07:11 73 14 91 Room Air 11/22/22 22:22 36.6 C 76 16 161/84 H 93 Room Air FiO2 11/23/22 07:11 21 11/22/22 22:22 Resident Activity Tracking Resident Involvement: Resident Care Provided Care Provided: Adult Hospital Medicine (5) COPD (chronic obstructive pulmonary disease) COPD type: unspecified COPD Qualified Code(s): J44.9 - Chronic obstructive pulmonary disease, unspecified
[2022-11-23 08:21] LABS: Calcium 8.5 mg/dl (8.6-10.3); Potassium 4.1 mmol/L (3.5-5.1)
[2022-11-23 08:32] LABS: BUN Creatinine Ratio 5.9 (10-20); Creatinine Clr Calc Pharmacy 8.6 ml/min; Est GFR (African American) 6.9 ml/min
[2022-11-23] MEDS: AMIODARONE 200 MG TAB PO SCH (08:52)
[2022-11-23] MEDS: THIAMINE HCL 100 MG TAB PO SCH (08:52)
[2022-11-23] MEDS: CINACALCET HCL 30 MG TAB PO SCH ×2 (08:52→21:24)
[2022-11-23] MEDS: NEPHROCAPS PO SCH (08:52)
[2022-11-23] MEDS: guaiFENesin 600 MG TABCR PO SCH ×2 (08:52→21:23)
[2022-11-23] MEDS: DIVALPROEX DELAY RELEASE 500 MG TAB PO SCH (08:53)
[2022-11-23] MEDS: amLODIPine BESYLATE 5 MG TAB PO SCH (08:53)
[2022-11-23] MEDS: CALCITRIOL 0.25 MCG CAPSULE PO SCH (08:53)
[2022-11-23] MEDS: HEPARIN SOD 5,000 UNIT/0.5 ML VIAL SQ SCH ×2 (08:53→21:25)
[2022-11-23] MEDS: UMECLIDINIUM/VILANTEROL 62.5/25MCG 7 PUFFS/INHALER INH SCH (08:54)
[2022-11-23] MEDS: DOCUSATE SODIUM 100 MG CAP PO SCH ×2 (08:56→21:27)
[2022-11-23] MEDS: ACETAMINOPHEN 325 MG TAB PO SCH ×2 (08:57→21:27)
[2022-11-23] MEDS: CALCIUM CARBONATE 500 MG CHEWABLE TAB PO SCH ×3 (08:57→17:24)
[2022-11-23] MEDS: POLYETHYLENE (MIRALAX) 17 GM PACK PO SCH ×2 (08:57→21:25)
[2022-11-23] MEDS ORDERED: EPOETIN ALFA 4,000 UNIT/ML VIAL IV SCH (09:00)
[2022-11-23] MEDS ORDERED: hydrOXYzine HCl 10 MG TAB PO PRN (09:32)
--- NOTE | 2022-11-23 12:40 | Nephrology Progress Note ---
Date of Service November 23, 2022 Assessment & Plan (1) ESRD on dialysis: Plan: Orders for HD today entered into the EHR and reviewed with HD RN. Patient seen and evaluated during hemodialysis. Sisi tolerated treatment well. TDC functioning well. Catheter placed by Dr. Yeboah on November 19. Medications appropriately dosed for IHD. Plan to continue IHD MWF. Outpatient HD to be arranged at discharge with [facility]. Leave PD catheter in place for now. (2) Secondary hyperparathyroidism: Plan: Continue phosphate binder with meal. Renal diet. Calcitriol 1 mcg QAM. (3) Anemia: Plan: Epogen 4000 units provided with HD today. (4) AMS (altered mental status): (5) Confusion: Admission and Anticipated Discharge Date Admission Date: November 18, 2022 Subjective No acute events overnight. Sisi was seen and evaluated during hemodialysis. Tolerating treatment well. Treatment disrupted twice due to short loss of power but resumed quickly both times without need to stop treatment. Alll blood returned to patient. TDC functioning well. Review of Systems Review of Systems: All systems reviewed & are unremarkable except as noted in HPI & below Physical Exam Constitutional: WD/WN, vitals as above no acute distress Eyes: + anicteric sclerae Neck: normal visual inspection Respiratory: no respiratory distress Auscultation: lungs clear to auscultation bilaterally Cardiovascular: Rate/Rhythm: regular rate and regular rhythm Heart Sounds: normal S1 and normal S2 Extremities: + vascular access device (left IJ TDC.); no edema Musculoskeletal: Extremities: extremities normal to inspection Skin: no rashes, warm and dry Neurologic: no focal motor deficits Psychiatric: Orientation: alert and oriented x 3 Affect: euthymic affect Results & Data Vital Signs (Past 12 Hours) Vital Signs Temp Pulse Pulse Pulse Resp BP BP 11/23/22 11:00 880 H 125/68 11/23/22 10:45 78 106/61 11/23/22 10:30 80 95/53 L 11/23/22 10:00 76 144/81 H 11/23/22 09:51 76 146/80 H 11/23/22 09:45 36.5 C 77 11/23/22 09:39 167/82 H 11/23/22 08:00 11/23/22 08:30 36.7 C 78 18 198/88 H 11/23/22 07:11 73 14 Pulse Ox O2 Del Method FiO2 11/23/22 11:00 11/23/22 10:45 11/23/22 10:30 11/23/22 10:00 11/23/22 09:51 11/23/22 09:45 11/23/22 09:39 11/23/22 08:00 Room Air 11/23/22 08:30 95 Room Air 11/23/22 07:11 91 Room Air 21 PG Care Time/CCT Total # of Minutes Spent Total Time Spent with Patient: Total time spent is greater than 50% in coordination of care (as documented) at patient's floor/unit and/or counseling patient: Coding Level of Care Code 89475 SUB INP/OBS CARE 3/50MIN Diagnoses ESRD on dialysis N18.6; Z99.2 Secondary hyperparathyroidism N25.81 Anemia D64.9 Anemia type: unspecified type AMS (altered mental status) R41.82 Confusion R41.0 (3) Anemia Anemia type: unspecified type Qualified Code(s): D64.9 - Anemia, unspecified
[2022-11-23] MEDS: hydrOXYzine HCl 10 MG TAB PO PRN ×2 (14:13→21:24)
--- NOTE | 2022-11-23 15:59 | Billing Data ---
Date of Service November 23, 2022 Coding Level of Care Code 32593 SUB INP/OBS CARE
[2022-11-23] MEDS ORDERED: CALCIUM CARBONATE 500 MG CHEWABLE TAB PO ONE (20:12)
[2022-11-23] MEDS: QUEtiapine FUMARATE 25 MG TABLET PO SCH (21:24)
[2022-11-23] MEDS: MELATONIN 3 MG TAB PO PRN (21:32)
--- NOTE | 2022-11-24 06:42 | Hospitalist Progress Note ---
Date of Service November 24, 2022 Assessment & Plan (1) Metabolic encephalopathy: Plan: Sisi is a 72-year-old male with past medical history of ESRD secondary to PKD on home PD at time of admission who presented to the emergency department for confusion and weakness, subsequently found to have progressive renal dysfunction. Patient has improved with minimal intervention and is being seen by nephrology who recommended switching to hemodialysis. Weakness, Ambulatory Dysfunction Metabolic Encephalopathy -- Resolved - Presented with confusion and weakness ongoing over several days with a fall; also took extra doses of home medications (in this state) prior to coming in - Suspect largely secondary to acidemia and uremia. Infectious and metabolic work-up otherwise returning negative. 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 May consider in near future pending progress and re-evaluations of mental status. - Venofer given while here, phosphate binder ongoing - [facility] for outpatient dialysis upon discharge COPD - Continue home inhalers Insomnia - currently receiving melatonin 15 mg HS PRN - cautious to add more sedating agents in the setting of his age and Alzheimer's; will trial small dose of hydroxyzine (10 mg) HS PRN Diet: Renal diet, heart healthy DVT prophylaxis: Heparin Disposition: [facility] with telemetry, case management working on discharge disposition and will contact [facility] tomorrow morning. CODE STATUS: Full code (2) High anion gap metabolic acidosis: (3) End-stage renal disease on peritoneal dialysis: (4) Ambulatory dysfunction: (5) COPD (chronic obstructive pulmonary disease): Admission and Anticipated Discharge Date Admission Date: November 18, 2022 Supervising Physician Co-Signing Physician Notes I personally examined the patient and verified all reyes points of history and exam, discussed case, and agree with decision making with Dr Vides sleeping comfortably whenever i see him. No new issues noted. Vitals noted, in general he is sleeping and in no distress. Breathing unlabored no accessory muscle use good effort. Skin shows no rashes no pallor or icterus. Uremic encephalopathyimproved with dialysis. HD ongoing. Working on SNF/rehab. Overall stable once bed available. Otherwise as above. no new issues today while pending SNF Hyponatremiafollow, improved Subjective Patient seen at the bedside this morning saying he still has some itching at the back. The hydroxyzine helps somewhat until it wears off at night. He has not yet gotten his morning dose and is still having some itching. Review of Systems Review of Systems: As per HPI Physical Exam Constitutional: WD/WN, vitals as above Respiratory: normal respiratory effort, lungs clear to auscultation Cardiovascular: RRR, no murmur, no edema Gastrointestinal (Abdomen): normal bowel sounds, soft, nontender, no hepatosplenomegaly Skin: no rashes, warm and dry Psychiatric: A+Ox3, euthymic affect Results & Data Results & Data Vital Signs (Past 12 Hours) Vital Signs Temp Pulse Resp BP Pulse Ox O2 Del Method 11/24/22 04:05 36.4 C L 75 18 163/86 H 94 Room Air 11/23/22 20:30 Room Air 11/23/22 19:15 76 18 93 Room Air Resident Activity Tracking Resident Involvement: Resident Care Provided Care Provided: Adult Hospital Medicine (5) COPD (chronic obstructive pulmonary disease) COPD type: unspecified COPD Qualified Code(s): J44.9 - Chronic obstructive pulmonary disease, unspecified
[2022-11-24] MEDS: ALBUT/IPRATROP 3MG/0.5MG NEB 3 ML VIAL INH SCH ×2 (06:50→19:17)
[2022-11-24] MEDS: CALCIUM CARBONATE 500 MG CHEWABLE TAB PO SCH ×3 (07:23→17:23)
[2022-11-24] MEDS: ACETAMINOPHEN 325 MG TAB PO SCH ×2 (07:24→20:31)
[2022-11-24] MEDS: CALCITRIOL 0.25 MCG CAPSULE PO SCH (08:10)
[2022-11-24] MEDS: AMIODARONE 200 MG TAB PO SCH (08:11)
[2022-11-24] MEDS: amLODIPine BESYLATE 5 MG TAB PO SCH (08:11)
[2022-11-24] MEDS: guaiFENesin 600 MG TABCR PO SCH ×2 (08:11→20:32)
[2022-11-24] MEDS: NEPHROCAPS PO SCH (08:11)
[2022-11-24] MEDS: CINACALCET HCL 30 MG TAB PO SCH ×2 (08:11→20:31)
[2022-11-24] MEDS: HEPARIN SOD 5,000 UNIT/0.5 ML VIAL SQ SCH ×2 (08:12→20:32)
[2022-11-24] MEDS: THIAMINE HCL 100 MG TAB PO SCH (08:12)
[2022-11-24] MEDS: UMECLIDINIUM/VILANTEROL 62.5/25MCG 7 PUFFS/INHALER INH SCH (08:13)
[2022-11-24] MEDS: DIVALPROEX DELAY RELEASE 500 MG TAB PO SCH (08:13)
[2022-11-24] MEDS: POLYETHYLENE (MIRALAX) 17 GM PACK PO SCH ×2 (08:15→20:33)
[2022-11-24] MEDS: DOCUSATE SODIUM 100 MG CAP PO SCH ×2 (08:20→20:31)
[2022-11-24 08:23] LABS: Basophils % (auto) 0.9 %; Eosinophils # (auto) 0.54 K/uL (0-0.50); Hematocrit (blood only) 30.4 % (42.0-52.0); Hemoglobin 9.8 g/dl (14.0-18.0); Immature Granulocytes # (auto) 0.23 K/uL (0.01-0.20); Immature Granulocytes % (auto) 2.1 %; Lymphocytes # (auto) 1.18 K/uL (1.2-3.4); Lymphocytes % (auto) 10.9 %; Mean Corpuscular Hemoglobin 29.8 pg (25.0-34.0); Mean Corpuscular Hgb Conc 32.2 g/dL (32.0-36.0); Mean Corpuscular Volume 92.4 fL (80.0-100.0); Mean Platelet Volume 10.1 fL (9.4-12.4); Monocytes # (auto) 1.48 K/uL (0.11-0.59); Monocytes % (auto) 13.7 %; Neutrophils % (auto) 67.4 %; Platelet Count 254 K/uL (130-400); RDW Coefficient of Variation 18.5 % (11.5-14.5); RDW Standard Deviation 61.7 fL (36.4-46.3); Red Blood Count 3.29 M/uL (4.70-6.10); White Blood Count 10.83 K/ul (4.8-10.8)
[2022-11-24 08:52] LABS: BUN Creatinine Ratio 4.9 (10-20); Calcium 9.2 mg/dl (8.6-10.3); Creatinine Clr Calc Pharmacy 13.2 ml/min; Est GFR (African American) 11.7 ml/min; Est GFR (Non-African American) 10.1 ml/min; Potassium 3.9 mmol/L (3.5-5.1)
[2022-11-24] MEDS: hydrOXYzine HCl 10 MG TAB PO PRN ×2 (09:26→20:32)
--- NOTE | 2022-11-24 10:48 | Nephrology Progress Note ---
Date of Service November 24, 2022 Assessment & Plan (1) ESRD on dialysis: Plan: Completed HD yesterday with adequate UF and clearance. Volume status acceptable. Electrolytes controlled. TDC functioning well. Catheter placed by Dr. Yeboah on November 19. Medications appropriately dosed for IHD. Plan to continue IHD MWF. Outpatient HD to be arranged at discharge with [facility]. Leave PD catheter in place for now. (2) Secondary hyperparathyroidism: Plan: Renal diet. Calcitriol 1 mcg QAM. (3) Anemia: Plan: Epogen 4000 units provided with HD yesterday. (4) AMS (altered mental status): (5) Confusion: Admission and Anticipated Discharge Date Admission Date: November 18, 2022 Subjective No acute events overnight. Sisi was sleeping in his hospital bed this morning. Tolerated HD yesterday without complications. Sleeping but opened eyes to voice for me and answered questions before drifting back to sleep. Lethargic. No fevers or chills. Review of Systems Review of Systems: All systems reviewed & are unremarkable except as noted in HPI & below Physical Exam Constitutional: WD/WN, vitals as above + thin and + frail appearing; no acute distress Eyes: + anicteric sclerae ENMT: Mouth: + dry oral mucous membranes Neck: normal visual inspection Respiratory: no respiratory distress Auscultation: lungs clear to auscultation bilaterally Cardiovascular: Rate/Rhythm: regular rate and regular rhythm Heart Sounds: normal S1 and normal S2 Extremities: + vascular access device (left IJ TDC.); no edema Musculoskeletal: Extremities: extremities normal to inspection Skin: no rashes, warm and dry Neurologic: no focal motor deficits Psychiatric: Orientation: alert and oriented x 3 Affect: euthymic affect Results & Data Vital Signs (Past 12 Hours) Vital Signs Temp Pulse Pulse Resp BP Pulse Ox O2 Del Method 11/24/22 07:40 36.3 C L 76 18 159/77 H 95 Room Air 11/24/22 06:51 78 16 95 Room Air 11/24/22 04:05 36.4 C L 75 18 163/86 H 94 Room Air Laboratory Results Laboratory Results - last 24 hr 11/24/22 11/24/22 07:24 07:24 WBC 10.83 H RBC 3.29 L Hgb 9.8 L Hct 30.4 L MCV 92.4 MCH 29.8 MCHC 32.2 RDW Std Deviation 61.7 H RDW Coeff of Giovana 18.5 H Plt Count 254 MPV 10.1 Immature Gran % (Auto) 2.1 Neut % (Auto) 67.4 Lymph % (Auto) 10.9 Johnson % (Auto) 13.7 Eos % (Auto) 5.0 Baso % (Auto) 0.9 Neut # (Auto) 7.30 H Lymph # (Auto) 1.18 L Johnson # (Auto) 1.48 H Eos # (Auto) 0.54 H Baso # (Auto) 0.10 Immature Gran # (Auto) 0.23 H Sodium 131 L Potassium 3.9 Chloride 92 L Carbon Dioxide 28 Anion Gap 11 BUN 26 H D Creatinine 5.26 H* D Est Cr Clr Drug Dosing 13.2 Est GFR ( Amer) 11.7 Est GFR (Non-Af Amer) 10.1 BUN/Creatinine Ratio 4.9 L Glucose 83 Calcium 9.2 PG Care Time/CCT Total # of Minutes Spent Total Time Spent with Patient: Total time spent is greater than 50% in coordination of care (as documented) at patient's floor/unit and/or counseling patient: Coding Level of Care Code 98833 SUB INP/OBS CARE 3/50MIN Diagnoses ESRD on dialysis N18.6; Z99.2 Secondary hyperparathyroidism N25.81 Anemia D64.9 Anemia type: unspecified type AMS (altered mental status) R41.82 Confusion R41.0 (3) Anemia Anemia type: unspecified type Qualified Code(s): D64.9 - Anemia, unspecified
--- NOTE | 2022-11-24 19:42 | Billing Data ---
Date of Service November 24, 2022 Coding Level of Care Code 64106 SUB INP/OBS CARE
[2022-11-24] MEDS: QUEtiapine FUMARATE 25 MG TABLET PO SCH (20:31)
[2022-11-24] MEDS: MELATONIN 3 MG TAB PO PRN (20:35)
[2022-11-24] MEDS ORDERED: diphenhydrAMINE Capsule 25 MG CAP PO ONE (23:07)
[2022-11-25] MEDS: ALBUT/IPRATROP 3MG/0.5MG NEB 3 ML VIAL INH SCH ×2 (07:03→19:39)
--- NOTE | 2022-11-25 08:21 | Hospitalist Progress Note ---
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 Patient has improved with minimal intervention and is being seen by nephrology who recommended switching to hemodialysis. Weakness, Ambulatory Dysfunction Metabolic Encephalopathy -- Resolved - Presented with confusion and weakness ongoing over several days with a fall; also took extra doses of home medications (in this state) prior to coming in - Suspect largely secondary to acidemia and uremia. Infectious and metabolic work-up otherwise returning negative. 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 May consider in near future pending progress and re-evaluations of mental status. - Venofer given while here, phosphate binder ongoing - [facility] for outpatient dialysis upon discharge Pruritus: -Itchiness still not well controlled with hydroxyzine 10mg BID. -Will trial triamcinolone 0.1% oint to back BID as well as eucerin to prevent drying out. Wrist pain: -most likely tendonitis or tenosynovitis. -Ordered wrist splint for patient to use. COPD - Continue home inhalers Insomnia - currently receiving melatonin 15 mg HS PRN - cautious to add more sedating agents in the setting of his age and Alzheime r's; will trial small dose of hydroxyzine (10 mg) HS PRN Diet: Renal diet, heart healthy DVT prophylaxis: Heparin Disposition: [facility] with telemetry, case management working on discharge disposition and will contact [facility] tomorrow morning. CODE STATUS: Full code (2) High anion gap metabolic acidosis: (3) End-stage renal disease on peritoneal dialysis: (4) Ambulatory dysfunction: (5) COPD (chronic obstructive pulmonary disease): Admission and Anticipated Discharge Date Admission Date: November 18, 2022 Supervising Physician Co-Signing Physician Notes I personally examined the patient and verified all reyes points of history and exam, discussed case, and agree with decision making with Dr Vides At dialysis when I see him. Some right wrist pain. Also notes that his back is quite itchy. Vitals noted, in general he is awake and playing a game on his phone. No distress. Breathing unlabored no accessory muscle use good effort. Skin shows no rashes no pallor or icterus. Right wrist with some pain in his thumb flexor tendon consistent with a tendinitis. Skin on his back is fairly dry. Uremic encephalopathyimproved with dialysis. HD ongoing. Working on SNF/rehab. Overall stable once bed available. Otherwise as above. Cock up splint or thumb spica splint for wrist tendinitis to help with symptoms, moisturize and topical steroid to help with his dry skin and itching so that we can minimize the need for antihistamines Hyponatremiafollow, improved Subjective Patient doing well this morning, still with itchy back. Also has some minor pain at the R lateral wrist. Review of Systems Review of Systems: As per HPI Physical Exam Constitutional: WD/WN, vitals as above Respiratory: normal respiratory effort, lungs clear to auscultation Cardiovascular: RRR, no murmur, no edema Gastrointestinal (Abdomen): normal bowel sounds, soft, nontender, no hepatosplenomegaly Musculoskeletal: +Sridevi at R wrist. Skin: no rashes, warm and dry Psychiatric: A+Ox3, euthymic affect Results & Data Results & Data Vital Signs (Past 12 Hours) Vital Signs Temp Pulse Pulse Resp BP Pulse Ox O2 Del Method 11/25/22 07:57 Room Air 11/25/22 07:38 36.4 C L 81 18 169/84 H 94 Room Air 11/25/22 07:04 78 18 96 Room Air 11/24/22 21:00 36.5 C 84 18 174/81 H 95 Room Air Resident Activity Tracking Resident Involvement: Resident Care Provided Care Provided: Adult [facility] Medicine (5) COPD (chronic obstructive pulmonary disease) COPD type: unspecified COPD Qualified Code(s): J44.9 - Chronic obstructive pulmonary disease, unspecified
[2022-11-25] MEDS: CINACALCET HCL 30 MG TAB PO SCH ×2 (08:22→20:27)
[2022-11-25] MEDS: NEPHROCAPS PO SCH (08:23)
[2022-11-25] MEDS: AMIODARONE 200 MG TAB PO SCH (08:23)
[2022-11-25] MEDS: THIAMINE HCL 100 MG TAB PO SCH (08:24)
[2022-11-25] MEDS: CALCITRIOL 0.25 MCG CAPSULE PO SCH (08:24)
[2022-11-25] MEDS: guaiFENesin 600 MG TABCR PO SCH ×2 (08:25→20:27)
[2022-11-25] MEDS: DIVALPROEX DELAY RELEASE 500 MG TAB PO SCH (08:25)
[2022-11-25] MEDS: POLYETHYLENE (MIRALAX) 17 GM PACK PO SCH ×2 (08:26→20:28)
[2022-11-25] MEDS: UMECLIDINIUM/VILANTEROL 62.5/25MCG 7 PUFFS/INHALER INH SCH (08:26)
[2022-11-25] MEDS: amLODIPine BESYLATE 5 MG TAB PO SCH (08:32)
[2022-11-25] MEDS: CALCIUM CARBONATE 500 MG CHEWABLE TAB PO SCH ×4 (08:33→18:09)
[2022-11-25] MEDS: DOCUSATE SODIUM 100 MG CAP PO SCH ×2 (08:33→20:33)
[2022-11-25] MEDS: ACETAMINOPHEN 325 MG TAB PO SCH ×2 (08:34→20:33)
[2022-11-25] MEDS: HEPARIN SOD 5,000 UNIT/0.5 ML VIAL SQ SCH ×2 (08:37→20:26)
--- NOTE | 2022-11-25 11:37 | Nephrology Progress Note ---
Date of Service November 25, 2022 Assessment & Plan (1) ESRD on dialysis: Plan: Orders for HD today entered into the EHR and reviewed with HD RN. Sisi was seen and evaluated during dialysis. He is tolerating treatment well. Adequate clearance. UF goal 1 L. BP acceptable. TDC functioning well. Catheter placed by Dr. Yeboah on November 19. Medications appropriately dosed for IHD. Plan to continue IHD MWF. Outpatient HD to be arranged at discharge with [facility]. Leave PD catheter in place for now. (2) Secondary hyperparathyroidism: Plan: Renal diet. Calcitriol 1 mcg QAM. (3) Anemia: Plan: Epogen 4000 units provided with HD 11/23/22. (4) AMS (altered mental status): (5) Confusion: Admission and Anticipated Discharge Date Admission Date: November 18, 2022 Subjective No acute events overnight. Sisi was seen and evaluated during HD this AM. He denies any complaints or concerns. Review of Systems Review of Systems: All systems reviewed & are unremarkable except as noted in HPI & below Physical Exam Constitutional: + thin and + frail appearing; no acute distress Eyes: + anicteric sclerae ENMT: Mouth: + dry oral mucous membranes Neck: normal visual inspection Respiratory: no respiratory distress Auscultation: lungs clear to auscultation bilaterally Cardiovascular: Rate/Rhythm: regular rate and regular rhythm Heart Sounds: normal S1 and normal S2 Extremities: + vascular access device (left IJ TDC.); no edema Musculoskeletal: Extremities: extremities normal to inspection Skin: no rashes, warm and dry Neurologic: no focal motor deficits Psychiatric: Orientation: alert and oriented x 3 Affect: euthymic affect Results & Data Vital Signs (Past 12 Hours) Vital Signs Temp Pulse Pulse Pulse Resp BP BP 11/25/22 11:00 85 119/73 11/25/22 10:30 79 159/78 H 11/25/22 10:00 79 124/66 11/25/22 09:30 80 146/77 H 11/25/22 09:09 81 167/79 H 11/25/22 09:04 36.4 C L 82 11/25/22 07:57 11/25/22 07:38 36.4 C L 81 18 169/84 H 11/25/22 07:04 78 18 Pulse Ox O2 Del Method 11/25/22 11:00 11/25/22 10:30 11/25/22 10:00 11/25/22 09:30 11/25/22 09:09 11/25/22 09:04 11/25/22 07:57 Room Air 11/25/22 07:38 94 Room Air 11/25/22 07:04 96 Room Air PG Care Time/CCT Total # of Minutes Spent Total Time Spent with Patient: Total time spent is greater than 50% in coordination of care (as documented) at patient's floor/unit and/or counseling patient: Coding Level of Care Code 87418 SUB INP/OBS CARE 3/50MIN Diagnoses ESRD on dialysis N18.6; Z99.2 Secondary hyperparathyroidism N25.81 Anemia D64.9 Anemia type: unspecified type AMS (altered mental status) R41.82 Confusion R41.0 (3) Anemia Anemia type: unspecified type Qualified Code(s): D64.9 - Anemia, unspecified
[2022-11-25] MEDS: hydrOXYzine HCl 10 MG TAB PO PRN ×2 (13:46→20:27)
[2022-11-25 15:17] LABS: Hematocrit (blood only) 32.8 % (42.0-52.0); Hemoglobin 10.4 g/dl (14.0-18.0); Mean Corpuscular Hemoglobin 30.1 pg (25.0-34.0); Mean Corpuscular Hgb Conc 31.7 g/dL (32.0-36.0); Mean Corpuscular Volume 94.8 fL (80.0-100.0); Mean Platelet Volume 10.2 fL (9.4-12.4); Platelet Count 242 K/uL (130-400); RDW Coefficient of Variation 18.7 % (11.5-14.5); RDW Standard Deviation 63.7 fL (36.4-46.3); Red Blood Count 3.46 M/uL (4.70-6.10); White Blood Count 13.47 K/ul (4.8-10.8)
[2022-11-25 15:42] LABS: BUN Creatinine Ratio 4.1 (10-20); Calcium 9.3 mg/dl (8.6-10.3); Est GFR (African American) 18.1 ml/min; Est GFR (Non-African American) 15.6 ml/min
--- NOTE | 2022-11-25 17:16 | Billing Data ---
Date of Service November 25, 2022 Coding Level of Care Code 64920 SUB INP/OBS CARE
[2022-11-25] MEDS: QUEtiapine FUMARATE 25 MG TABLET PO SCH (20:27)
[2022-11-25] MEDS: EUCERIN CR 120 GM JAR EXT SCH (20:28)
[2022-11-25] MEDS: TRIAMCINOLONE ACET 0.1% OINT 80 GM TUBE EXT SCH (20:29)
[2022-11-25] MEDS: MELATONIN 3 MG TAB PO PRN (20:34)
[2022-11-25] MEDS ORDERED: TRIAMCINOLONE ACET 0.1% OINT 454 GM EXT SCH (21:00)
[2022-11-26] MEDS: ALBUT/IPRATROP 3MG/0.5MG NEB 3 ML VIAL INH SCH ×2 (07:34→19:25)
[2022-11-26] MEDS: AMIODARONE 200 MG TAB PO SCH (08:08)
[2022-11-26] MEDS: guaiFENesin 600 MG TABCR PO SCH ×2 (08:08→21:13)
[2022-11-26] MEDS: DIVALPROEX DELAY RELEASE 500 MG TAB PO SCH (08:09)
[2022-11-26] MEDS: CINACALCET HCL 30 MG TAB PO SCH ×2 (08:09→21:15)
[2022-11-26] MEDS: THIAMINE HCL 100 MG TAB PO SCH (08:09)
[2022-11-26] MEDS: amLODIPine BESYLATE 5 MG TAB PO SCH (08:10)
[2022-11-26] MEDS: CALCITRIOL 0.25 MCG CAPSULE PO SCH (08:10)
[2022-11-26] MEDS: NEPHROCAPS PO SCH (08:10)
[2022-11-26] MEDS: TRIAMCINOLONE ACET 0.1% OINT 80 GM TUBE EXT SCH ×2 (08:11→21:26)
[2022-11-26] MEDS: UMECLIDINIUM/VILANTEROL 62.5/25MCG 7 PUFFS/INHALER INH SCH (08:11)
[2022-11-26] MEDS: EUCERIN CR 120 GM JAR EXT SCH ×2 (08:12→21:14)
[2022-11-26] MEDS: DOCUSATE SODIUM 100 MG CAP PO SCH ×2 (08:19→21:15)
[2022-11-26] MEDS: CALCIUM CARBONATE 500 MG CHEWABLE TAB PO SCH ×3 (08:19→17:16)
[2022-11-26] MEDS: ACETAMINOPHEN 325 MG TAB PO SCH ×2 (08:20→21:25)
[2022-11-26] MEDS: POLYETHYLENE (MIRALAX) 17 GM PACK PO SCH ×2 (08:21→21:24)
[2022-11-26] MEDS: HEPARIN SOD 5,000 UNIT/0.5 ML VIAL SQ SCH ×2 (08:22→21:14)
--- NOTE | 2022-11-26 10:13 | Hospitalist Progress Note ---
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 Patient has improved with minimal intervention and is being seen by nephrology who recommended switching to hemodialysis. Weakness, Ambulatory Dysfunction Metabolic Encephalopathy -- Resolved - Presented with confusion and weakness ongoing over several days with a fall; also took extra doses of home medications (in this state) prior to coming in - Suspect largely secondary to acidemia and uremia. Infectious and metabolic work-up otherwise returning negative. 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 May consider in near future pending progress and re-evaluations of mental status. - Venofer given while here, phosphate binder ongoing - [facility] for outpatient dialysis upon discharge Pruritus: -Itchiness still not well controlled with hydroxyzine 10mg BID. -Will trial triamcinolone 0.1% oint to back BID as well as eucerin to prevent drying out. -Increased hydroxyzine to 10mg TID PRN while the above topical regimen takes effect. Wrist pain: -most likely tendonitis or tenosynovitis. -Ordered wrist splint for patient to use. COPD - Continue home inhalers Insomnia - currently receiving melatonin 15 mg HS PRN - cautious to add more sedating agents in the setting of his age and Alzheimer's; will trial small dose of hydroxyzine (10 mg) HS PRN Diet: Renal diet, heart healthy DVT prophylaxis: Heparin Disposition: [facility] with telemetry, case management working on discharge disposition and will contact [facility] tomorrow morning. CODE STATUS: Full code (2) High anion gap metabolic acidosis: (3) End-stage renal disease on peritoneal dialysis: (4) Ambulatory dysfunction: (5) COPD (chronic obstructive pulmonary disease): Admission and Anticipated Discharge Date Admission Date: November 18, 2022 Supervising Physician Co-Signing Physician Notes I personally examined the patient and verified all reyes points of history and exam, discussed case, and agree with decision making with Dr Vides feeling ok wrist hurts less itching doing a bit better. Vitals noted, in general he is awake and playing a game on his phone. No distress. Breathing unlabored no accessory muscle use good effort. Skin shows no rashes no pallor or icterus. Uremic encephalopathyimproved with dialysis. HD ongoing. Still working on SNF/rehab. Overall stable once bed available. Otherwise as above. Cock up splint or thumb spica splint for wrist tendinitis to help with symptoms, moisturize and topical steroid to help with his dry skin and itching so that we can minimize the need for antihistamines Hyponatremiafollow, improved for SNF when set up Subjective Patient seen at bedside still with itching. Says when he goes to bed he takes the medication (probably around 9PM) and then he wakes up around 12AM with the itching returned. Review of Systems Review of Systems: As per HPI Physical Exam Constitutional: WD/WN, vitals as above Respiratory: normal respiratory effort, lungs clear to auscultation Cardiovascular: RRR, no murmur, no edema Gastrointestinal (Abdomen): normal bowel sounds, soft, nontender, no hepatosplenomegaly Skin: no rashes, warm and dry Psychiatric: A+Ox3, euthymic affect Results & Data Results & Data Vital Signs (Past 12 Hours) Vital Signs Temp Pulse Resp BP Pulse Ox O2 Del Method 11/26/22 09:08 87 136/67 11/26/22 07:15 Room Air 11/26/22 07:34 18 Room Air 11/26/22 07:22 36.4 C L 84 18 186/89 H 93 Room Air Resident Activity Tracking Resident Involvement: Resident Care Provided Care Provided: Adult Hospital Medicine (5) COPD (chronic obstructive pulmonary disease) COPD type: unspecified COPD Qualified Code(s): J44.9 - Chronic obstructive pulmonary disease, unspecified
--- NOTE | 2022-11-26 12:09 | Nephrology Progress Note ---
Date of Service November 26, 2022 Assessment & Plan (1) ESRD on dialysis: Plan: Adequate clearance with HD. Volume status reasonably controlled. BP fluctuating but improved on recheck this AM. TDC functioning well. Catheter placed by Dr. Yeboah on November 19. Medications appropriately dosed for IHD. Plan to continue IHD MWF. Outpatient HD to be arranged at [facility] with [facility]. Sisi and his family have expressed that they are unlikely to return to PD in the future and are resolved to PD catheter removal when convenient. (2) Secondary hyperparathyroidism: Plan: Renal diet. Calcitriol 1 mcg QAM. (3) Anemia: Plan: Epogen 4000 units provided with HD 11/23/22. Admission and Anticipated Discharge Date Admission Date: November 18, 2022 Subjective No acute events overnight. Sisi tolerated HD well yesterday. He reports feeling exhausted after treatments but otherwise tolerating well. Sleep schedule has been disrupted. Sisi was seen and evaluated with his granddaughter at the [facility]. Sleep habits were discussed. Overall appears to be tolerating dialysis well. Primary complaint is chronic diffuse itch. Review of Systems Review of Systems: All systems reviewed & are unremarkable except as noted in HPI & below Physical Exam Constitutional: WD/WN, vitals as above + thin; no acute distress Eyes: + anicteric sclerae Neck: normal visual inspection IJ TDC Respiratory: no respiratory distress Auscultation: lungs clear to auscultation bilaterally Cardiovascular: Rate/Rhythm: regular rate and regular rhythm Heart Sounds: normal S1 and normal S2 Extremities: + pedal edema and + vascular access device (left IJ TDC.) Musculoskeletal: Extremities: extremities normal to inspection Skin: no rashes, warm and dry Neurologic: no focal motor deficits Psychiatric: Orientation: alert Affect: euthymic affect Results & Data Vital Signs (Past 12 Hours) Vital Signs Temp Pulse Resp BP Pulse Ox O2 Del Method 11/26/22 09:08 87 136/67 11/26/22 07:15 Room Air 11/26/22 07:34 18 Room Air 11/26/22 07:22 36.4 C L 84 18 186/89 H 93 Room Air Laboratory Results Laboratory Results - last 24 hr 11/25/22 11/25/22 15:01 15:01 WBC 13.47 H RBC 3.46 L Hgb 10.4 L Hct 32.8 L MCV 94.8 MCH 30.1 MCHC 31.7 L RDW Std Deviation 63.7 H RDW Coeff of Giovana 18.7 H Plt Count 242 MPV 10.2 Sodium 135 L Potassium 4.0 Chloride 99 Carbon Dioxide 26 Anion Gap 10 BUN 15 Creatinine 3.65 H D Est Cr Clr Drug Dosing 19.0 Est GFR ( Amer) 18.1 Est GFR (Non-Af Amer) 15.6 BUN/Creatinine Ratio 4.1 L Glucose 123 H Calcium 9.3 PG Care Time/CCT Total # of Minutes Spent Total Time Spent with Patient: Total time spent is greater than 50% in coordination of care (as documented) at patient's floor/unit and/or counseling patient: Coding Level of Care Code 37287 SUB INP/OBS CARE 3/50MIN Diagnoses ESRD on dialysis N18.6; Z99.2 Secondary hyperparathyroidism N25.81 Anemia D64.9 Anemia type: unspecified type (3) Anemia Anemia type: unspecified type Qualified Code(s): D64.9 - Anemia, unspecified
[2022-11-26] MEDS: hydrOXYzine HCl 10 MG TAB PO PRN (13:06)
[2022-11-26] MEDS: SEVELAMER HCL 800 MG TABLET PO SCH (17:13)
--- NOTE | 2022-11-26 17:33 | Billing Data ---
Date of Service November 26, 2022 Coding Level of Care Code 43003 SUB INP/OBS CARE
[2022-11-26] MEDS: MELATONIN 3 MG TAB PO PRN (21:26)
[2022-11-26] MEDS: QUEtiapine FUMARATE 25 MG TABLET PO SCH (22:13)
--- NOTE | 2022-11-27 07:15 | Hospitalist Progress Note ---
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 Patient has improved with minimal intervention and is being seen by nephrology who recommended switching to hemodialysis. Weakness, ambulatory dysfunction, metabolic encephalopathy - resolved - Presented with confusion and weakness ongoing over several days with a fall; also took extra doses of home medications (in this state) prior to coming in - Suspect largely secondary to acidemia and uremia. Infectious and metabolic work-up otherwise returning negative. 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 May consider in near future pending progress and re-evaluations of mental status - Venofer given while here, phosphate binder ongoing - [facility] for outpatient dialysis upon discharge Pruritus - Itchiness still not well controlled with hydroxyzine 10mg BID - Will trial triamcinolone 0.1% oint to back BID as well as eucerin to prevent drying out - Increased hydroxyzine to 10mg TID PRN while the above topical regimen takes effect Wrist pain - Most likely tendonitis or tenosynovitis - Ordered wrist splint for patient to use COPD - Continue home regimen Insomnia - Currently receiving melatonin 15 mg HS PRN - Cautious to add more sedating agents in the setting of his age and Alzheimer's; will trial small dose of hydroxyzine (10 mg) HS PRN Diet: renal diet, heart healthy DVT ppx: heparin Disposition: med/telemetry, discharge is pending SNF placement; assisting Code status: full (2) High anion gap metabolic acidosis: (3) End-stage renal disease on peritoneal dialysis: (4) Ambulatory dysfunction: (5) COPD (chronic obstructive pulmonary disease): Admission and Anticipated Discharge Date Admission Date: November 18, 2022 Supervising Physician Co-Signing Physician Notes I personally examined the patient and verified all reyes points of history and exam, discussed case, and agree with decision making with Dr Vides only real complaint is itchy back. seen at HD today. Vitals noted, in general he is awake and playing a game on his phone. No distress. Breathing unlabored no accessory muscle use good effort. Skin shows no rashes no pallor or icterus. Uremic encephalopathyimproved with dialysis. HD ongoing. case management still working on SNF/rehab. Overall stable once bed available. Otherwise as above. moisturizer/topical triamcinolone for itching to try to minimize need for systemic antihistamines. Hyponatremiafollow for SNF when set up Subjective Patient seen and evaluated at bedside this morning. Patient feels well this morning and has no complaints. Patient's only concern is finding a bed for placement. Patient denies CP, SOB, abdominal pain, nausea, vomiting, lightheadedness, dizziness, and diarrhea. Review of Systems Review of Systems: See HPI Physical Exam Physical Exam: Constitutional: well-appearing, no acute distress CV: extremities well-perfused Resp: breathing non-labored Neuro: alert, oriented, no focal neurologic deficit appreciated Results & Data Results & Data Vital Signs (Past 12 Hours) Vital Signs Temp Pulse Pulse Resp BP Pulse Ox O2 Del Method 11/26/22 20:46 36.7 C 83 18 153/73 H 90 Room Air 11/26/22 19:25 86 19 92 Room Air Resident Activity Tracking Resident Involvement: Resident Care Provided Care Provided: Adult Hospital Medicine (5) COPD (chronic obstructive pulmonary disease) COPD type: unspecified COPD Qualified Code(s): J44.9 - Chronic obstructive pulmonary disease, unspecified
[2022-11-27] MEDS: ALBUT/IPRATROP 3MG/0.5MG NEB 3 ML VIAL INH SCH ×2 (07:23→19:24)
[2022-11-27 08:05] LABS: Basophils # (auto) 0.11 K/uL (0-0.2); Basophils % (auto) 1.1 %; Eosinophils # (auto) 0.45 K/uL (0-0.50); Eosinophils % (auto) 4.5 %; Hematocrit (blood only) 27.8 % (42.0-52.0); Hemoglobin 8.9 g/dl (14.0-18.0); Lymphocytes # (auto) 0.75 K/uL (1.2-3.4); Lymphocytes % (auto) 7.6 %; Mean Corpuscular Hemoglobin 29.9 pg (25.0-34.0); Mean Corpuscular Volume 93.3 fL (80.0-100.0); Mean Platelet Volume 9.8 fL (9.4-12.4); Monocytes # (auto) 1.32 K/uL (0.11-0.59); Monocytes % (auto) 13.3 %; Neutrophils % (auto) 72.5 %; Platelet Count 223 K/uL (130-400); RDW Coefficient of Variation 18.3 % (11.5-14.5); RDW Standard Deviation 62.8 fL (36.4-46.3); Red Blood Count 2.98 M/uL (4.70-6.10); White Blood Count 9.93 K/ul (4.8-10.8)
[2022-11-27 08:46] LABS: BUN Creatinine Ratio 6.4 (10-20); Calcium 9.2 mg/dl (8.6-10.3); Creatinine Clr Calc Pharmacy 10.3 ml/min; Est GFR (African American) 8.7 ml/min; Est GFR (Non-African American) 7.5 ml/min; Phosphorus 7.2 mg/dl (2.5-4.9)
[2022-11-27] MEDS: CALCIUM CARBONATE 500 MG CHEWABLE TAB PO SCH ×3 (08:59→18:06)
[2022-11-27] MEDS: SEVELAMER HCL 800 MG TABLET PO SCH ×3 (08:59→18:06)
[2022-11-27] MEDS ORDERED: EPOETIN ALFA 20,000 UNITS/ML VIAL IV ONE (10:10)
--- NOTE | 2022-11-27 10:10 | Nephrology Progress Note ---
Date of Service November 27, 2022 Assessment & Plan (1) ESRD on dialysis: Plan: Remains on HD MWF. Orders for treatment today entered into the EHR and reviewed with HD RN. Qb at goal. Clearance acceptable. Tolerating UF goal of ~2 L. TDC functioning well. Catheter placed by Dr. Yeboah on November 19. Medications appropriately dosed for IHD. Plan to continue IHD MWF. Outpatient HD to be arranged at discharge with [facility]. PD catheter removal to be coordinated with Dr. Yeboah when he returns from vacation. (2) Secondary hyperparathyroidism: Plan: Renal diet. Calcitriol 1 mcg QAM. Auryxia not available while inpatient and substituted with Renvela 1 tab QAC. (3) Anemia: Plan: Epogen 4000 units provided with HD 11/23/22. Venofer 100 mg IV and Epogen 52152 units to be provided with HD today. Admission and Anticipated Discharge Date Admission Date: November 18, 2022 Subjective No acute events overnight. Sisi was seen and evaluated during hemodialysis this morning. He is tolerating treatment well. Overall, he feels well. He continues to report exhaustion from hemodialysis treatments but he is otherwise tolerating HD well. He would like to have PD catheter removed when able but the catheter is not bothersome to him. Review of Systems Review of Systems: All systems reviewed & are unremarkable except as noted in HPI & below Physical Exam Constitutional: WD/WN, vitals as above + thin and + frail appearing; no acute distress Eyes: + anicteric sclerae ENMT: Mouth: + dry oral mucous membranes Neck: normal visual inspection Respiratory: no respiratory distress Auscultation: lungs clear to auscultation bilaterally Cardiovascular: Rate/Rhythm: regular rate and regular rhythm Heart Sounds: normal S1 and normal S2 Extremities: + pedal edema and + vascular access device (left IJ TDC.); no edema Musculoskeletal: Extremities: extremities normal to inspection Skin: no rashes, warm and dry Neurologic: no focal motor deficits Psychiatric: Orientation: alert and oriented x 3 Affect: euthymic affect Results & Data Vital Signs (Past 12 Hours) Vital Signs Temp Pulse Pulse Resp BP Pulse Ox O2 Del Method 11/27/22 07:33 36.6 C 77 16 158/83 H 100 Room Air 11/27/22 07:24 80 16 93 Room Air Laboratory Results Laboratory Results - last 24 hr 11/27/22 11/27/22 07:45 07:45 WBC 9.93 RBC 2.98 L Hgb 8.9 L Hct 27.8 L MCV 93.3 MCH 29.9 MCHC 32.0 RDW Std Deviation 62.8 H RDW Coeff of Giovana 18.3 H Plt Count 223 MPV 9.8 Immature Gran % (Auto) 1.0 Neut % (Auto) 72.5 Lymph % (Auto) 7.6 Jerome % (Auto) 13.3 Eos % (Auto) 4.5 Baso % (Auto) 1.1 Neut # (Auto) 7.20 H Lymph # (Auto) 0.75 L Jerome # (Auto) 1.32 H Eos # (Auto) 0.45 Baso # (Auto) 0.11 Immature Gran # (Auto) 0.10 Sodium 131 L Potassium 5.0 D Chloride 97 L Carbon Dioxide 22 Anion Gap 12 H BUN 43 H D Creatinine 6.73 H* D Est Cr Clr Drug Dosing 10.3 Est GFR ( Amer) 8.7 Est GFR (Non-Af Amer) 7.5 BUN/Creatinine Ratio 6.4 L Glucose 83 Calcium 9.2 Phosphorus 7.2 H PG Care Time/CCT Total # of Minutes Spent Total Time Spent with Patient: Total time spent is greater than 50% in coordination of care (as documented) at patient's floor/unit and/or counseling patient: Coding Level of Care Code 12057 SUB INP/OBS CARE 3/50MIN Diagnoses ESRD on dialysis N18.6; Z99.2 Secondary hyperparathyroidism N25.81 Anemia D64.9 Anemia type: unspecified type (3) Anemia Anemia type: unspecified type Qualified Code(s): D64.9 - Anemia, unspecified
[2022-11-27] MEDS ORDERED: IRON SUCROSE 100 MG in SYRINGE 0 ML IV ONE (10:15)
[2022-11-27] MEDS: AMIODARONE 200 MG TAB PO SCH (13:29)
[2022-11-27] MEDS: NEPHROCAPS PO SCH (13:29)
[2022-11-27] MEDS: HEPARIN SOD 5,000 UNIT/0.5 ML VIAL SQ SCH ×2 (13:29→21:12)
[2022-11-27] MEDS: THIAMINE HCL 100 MG TAB PO SCH (13:29)
[2022-11-27] MEDS: CALCITRIOL 0.25 MCG CAPSULE PO SCH (13:30)
[2022-11-27] MEDS: guaiFENesin 600 MG TABCR PO SCH ×2 (13:30→21:10)
[2022-11-27] MEDS: amLODIPine BESYLATE 5 MG TAB PO SCH (13:30)
[2022-11-27] MEDS: DIVALPROEX DELAY RELEASE 500 MG TAB PO SCH (13:30)
[2022-11-27] MEDS: CINACALCET HCL 30 MG TAB PO SCH ×2 (13:30→21:10)
[2022-11-27] MEDS: POLYETHYLENE (MIRALAX) 17 GM PACK PO SCH ×2 (13:31→21:12)
[2022-11-27] MEDS: ACETAMINOPHEN 325 MG TAB PO SCH ×2 (13:31→21:11)
[2022-11-27] MEDS: UMECLIDINIUM/VILANTEROL 62.5/25MCG 7 PUFFS/INHALER INH SCH (13:31)
[2022-11-27] MEDS: DOCUSATE SODIUM 100 MG CAP PO SCH ×2 (13:31→21:09)
[2022-11-27] MEDS: TRIAMCINOLONE ACET 0.1% OINT 80 GM TUBE EXT SCH ×2 (13:31→20:39)
[2022-11-27] MEDS: EUCERIN CR 120 GM JAR EXT SCH ×2 (13:31→20:39)
--- NOTE | 2022-11-27 17:09 | Billing Data ---
Date of Service November 27, 2022 Coding Level of Care Code 34824 SUB INP/OBS CARE
[2022-11-27] MEDS: QUEtiapine FUMARATE 25 MG TABLET PO SCH (21:11)
[2022-11-28 06:58] LABS: BUN Creatinine Ratio 6.9 (10-20); Calcium 9.5 mg/dl (8.6-10.3); Creatinine Clr Calc Pharmacy 12.2 ml/min; Est GFR (African American) 10.6 ml/min; Est GFR (Non-African American) 9.1 ml/min
[2022-11-28 07:04] LABS: Hematocrit (blood only) 28.9 % (42.0-52.0); Hemoglobin 9.1 g/dl (14.0-18.0); Mean Corpuscular Hemoglobin 29.8 pg (25.0-34.0); Mean Corpuscular Hgb Conc 31.5 g/dL (32.0-36.0); Mean Corpuscular Volume 94.8 fL (80.0-100.0); Mean Platelet Volume 9.8 fL (9.4-12.4); Platelet Count 230 K/uL (130-400); RDW Coefficient of Variation 18.4 % (11.5-14.5); RDW Standard Deviation 63.7 fL (36.4-46.3); Red Blood Count 3.05 M/uL (4.70-6.10); White Blood Count 8.44 K/ul (4.8-10.8)
[2022-11-28] MEDS: ALBUT/IPRATROP 3MG/0.5MG NEB 3 ML VIAL INH SCH ×2 (07:20→19:27)
--- NOTE | 2022-11-28 08:31 | Nephrology Progress Note ---
Date of Service November 28, 2022 Assessment & Plan (1) ESRD on dialysis: Plan: * Transitioned from PD to HD due to progressive azotemia, mental status changes * Dialyzed yesterday for 2 L UF without complication * No acute indication for HD today. Will reassess in am * L IJ TCC placed 11/19/[address] Yeboah. Patient will need PD catheter removal and AVF creation as outpatient * Recheck PRP in an * Case management to set up outpatient HD at [facility] * Awaiting placement at [facility] or [facility] (2) Secondary hyperparathyroidism: Plan: * Continue renal diet * Continue calcitriol 1 mcg po QAM * Auryxia not available while inpatient and substituted with Renvela 1 tab QAC (3) Anemia: Plan: * Epogen 4000 units provided with HD 11/23/22 * Venofer 100 mg IV and Epogen 20,000 units to be provided with HD 11/27/22 Admission and Anticipated Discharge Date Admission Date: November 18, 2022 Subjective Mr. Redmond was evaluated in his hospital room this morning. He was A&O x3. He reported ambulating in the the hallway this morning. Mr. Redmond indicates that he is subjectively improved since transitioning from PD to HD. Review of Systems Constitutional: no fever Eyes: no worsening vision Ear, Nose, Mouth, Throat: no problem reported Respiratory: no cough and no dyspnea Cardiovascular: no chest pain Gastrointestinal: no abdominal pain, no nausea, no vomiting and no diarrhea/loose stools Physical Exam Constitutional: not in distress Eyes: PERRL, conjunctivae normal, anicteric sclerae Neck: trachea midline, no thyromegaly L IJ TCC w/ clean, dry dressing Respiratory: normal respiratory effort, lungs clear to auscultation Cardiovascular: RRR, no murmur, no edema Gastrointestinal (Abdomen): normal bowel sounds, soft, nontender, no hepatosplenomegaly Skin: no rashes, warm and dry Neurologic: Speech / Cognition: normal speech and normal cognition Results & Data Vital Signs (Past 12 Hours) Vital Signs Temp Pulse Resp BP Pulse Ox O2 Del Method 11/28/22 07:30 Room Air 11/28/22 07:38 36.3 C L 83 16 174/89 H 95 Room Air 11/28/22 07:20 83 16 95 Room Air 06/09/23 20:40 Room Air 11/27/22 20:55 36.6 C 86 18 173/86 H 93 Room Air Laboratory Results Laboratory Tests 11/28/22 11/28/22 06:20 06:20 WBC 8.44 Hgb 9.1 L Hct 28.9 L Plt Count 230 Sodium 135 L Potassium 5.0 Chloride 100 Carbon Dioxide 23 BUN 39 H Creatinine 5.69 H* D Glucose 79 Calcium 9.5 PG Care Time/CCT Total # of Minutes Spent Total Time Spent with Patient: Total time spent is greater than 50% in coordination of care (as documented) at patient's floor/unit and/or counseling patient: Coding Level of Care Code 41673 SUB INP/OBS CARE 3/50MIN Diagnoses ESRD on dialysis N18.6; Z99.2 Secondary hyperparathyroidism N25.81 Anemia D64.9 Anemia type: unspecified type (3) Anemia Anemia type: unspecified type Qualified Code(s): D64.9 - Anemia, unspecified
[2022-11-28] MEDS: CINACALCET HCL 30 MG TAB PO SCH ×2 (09:08→20:27)
[2022-11-28] MEDS: SEVELAMER HCL 800 MG TABLET PO SCH ×3 (09:08→17:40)
[2022-11-28] MEDS: ACETAMINOPHEN 325 MG TAB PO SCH ×2 (09:08→20:32)
[2022-11-28] MEDS: CALCIUM CARBONATE 500 MG CHEWABLE TAB PO SCH ×3 (09:08→17:40)
[2022-11-28] MEDS: guaiFENesin 600 MG TABCR PO SCH ×2 (09:08→20:26)
[2022-11-28] MEDS: amLODIPine BESYLATE 5 MG TAB PO SCH (09:09)
[2022-11-28] MEDS: AMIODARONE 200 MG TAB PO SCH (09:09)
[2022-11-28] MEDS: CALCITRIOL 0.25 MCG CAPSULE PO SCH (09:09)
[2022-11-28] MEDS: NEPHROCAPS PO SCH (09:09)
[2022-11-28] MEDS: THIAMINE HCL 100 MG TAB PO SCH (09:09)
[2022-11-28] MEDS: DIVALPROEX DELAY RELEASE 500 MG TAB PO SCH (09:10)
[2022-11-28] MEDS: DOCUSATE SODIUM 100 MG CAP PO SCH ×2 (09:10→20:32)
[2022-11-28] MEDS: EUCERIN CR 120 GM JAR EXT SCH ×2 (09:10→20:29)
[2022-11-28] MEDS: HEPARIN SOD 5,000 UNIT/0.5 ML VIAL SQ SCH ×2 (09:10→20:28)
[2022-11-28] MEDS: POLYETHYLENE (MIRALAX) 17 GM PACK PO SCH ×2 (09:10→20:25)
[2022-11-28] MEDS: UMECLIDINIUM/VILANTEROL 62.5/25MCG 7 PUFFS/INHALER INH SCH (09:10)
[2022-11-28] MEDS: TRIAMCINOLONE ACET 0.1% OINT 80 GM TUBE EXT SCH ×2 (09:10→20:28)
--- NOTE | 2022-11-28 09:38 | Hospitalist Progress Note ---
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 Patient has improved with minimal intervention and is being seen by nephrology who recommended switching to hemodialysis. Weakness, ambulatory dysfunction, metabolic encephalopathy - resolved - Presented with confusion and weakness ongoing over several days with a fall; also took extra doses of home medications (in this state) prior to coming in - Suspect largely secondary to acidemia and uremia. Infectious and metabolic work-up otherwise returning negative. - Resolved with initiation of HD - Disposition plans pending rehab/outpatient dialysis. Appreciate CM support and assistance with dispo planning. 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 May consider in near future pending progress and re-evaluations of mental status - Venofer given while here, phosphate binder ongoing - [facility] for outpatient dialysis upon discharge Pruritus - Itchiness improved, but still not resolved w/ hydroxyzine 10mg TID prn - Continue trial of hydroxyzine + triamcinolone 0.1% oint to back BID as well as eucerin to prevent drying out Wrist pain - Most likely tendonitis or tenosynovitis - Ordered wrist splint for patient to use COPD - Continue home regimen Insomnia - Currently receiving melatonin 15 mg HS PRN - Cautious to add more sedating agents in the setting of his age and Alzheimer's; will trial small dose of hydroxyzine (10 mg) HS PRN Diet: renal diet, heart healthy DVT ppx: heparin Disposition: med/telemetry, discharge is pending SNF placement; CM assisting Code status: full (2) High anion gap metabolic acidosis: (3) End-stage renal disease on peritoneal dialysis: (4) Ambulatory dysfunction: (5) COPD (chronic obstructive pulmonary disease): Admission and Anticipated Discharge Date Admission Date: November 18, 2022 Supervising Physician Co-Signing Physician Notes I personally examined the patient and verified all reyes points of history and exam, discussed case, and agree with decision making with Dr Stein no complaints today. Vitals noted, in general he is awake and playing a game on his phone. No distress. Breathing unlabored no accessory muscle use good effort. Skin shows no rashes no pallor or icterus. Uremic encephalopathyimproved with dialysis. HD ongoing and being set up for outpt. case management still working on SNF/rehab. Overall stable once bed available. Otherwise as above. moisturizer/topical triamcinolone for itching to try to minimize need for systemic antihistamines. Hyponatremiafollow periodically for SNF when set up Subjective Patient seen and evaluated at bedside this morning. Patient feels well this morning. Is currently eating breakfast, sitting in chair at bedside. Notes persistent back itching but states that it has improved with the increased frequency of hydroxyzine to TID (however, states that the hydroxyzine "doesn't last long"). Has no other complaints. Review of Systems Review of Systems: See HPI Physical Exam Physical Exam: GENERAL: No acute distress. Vital signs reviewed as above. EYES: Anicteric sclerae. HENT: Moist mucous membranes. RESPIRATORY: No acute respiratory distress. No audible wheezing. EXTREMITIES: No gross deformities. NEUROLOGIC: Awake and alert. Results & Data Results & Data Vital Signs (Past 12 Hours) Vital Signs Temp Pulse Resp BP Pulse Ox O2 Del Method 11/28/22 07:30 Room Air 11/28/22 07:38 36.3 C L 83 16 174/89 H 95 Room Air 11/28/22 07:20 83 16 95 Room Air Laboratory Results 11/28/22 11/28/22 11/27/22 Range/Units 06:20 06:20 15:30 WBC 8.44 (4.8-10.8) K/ul RBC 3.05 L (4.70-6.10) M/uL Hgb 9.1 L (14.0-18.0) g/dl Hct 28.9 L (42.0-52.0) % MCV 94.8 (80.0-100.0) fL MCH 29.8 (25.0-34.0) pg MCHC 31.5 L (32.0-36.0) g/dL RDW Std Deviation 63.7 H (36.4-46.3) fL RDW Coeff of Giovana 18.4 H (11.5-14.5) % Plt Count 230 (130-400) K/uL MPV 9.8 (9.4-12.4) fL Sodium 135 L (136-145) mmol/L Potassium 5.0 (3.5-5.1) mmol/L Chloride 100 (98-107) mmol/L Carbon Dioxide 23 (21-32) mmol/L Anion Gap 12 H (3-11) BUN 39 H (6-23) mg/dl Creatinine 5.69 H* D (0.6-1.4) mg/dl Est Cr Clr Drug Dosing 12.2 ml/min Est GFR ( Amer) 10.6 ml/min Est GFR (Non-Af Amer) 9.1 ml/min BUN/Creatinine Ratio 6.9 L (10-20) Glucose 79 (70-99(Fasting)) mg/dl Osmolality (280-300) mOsm/kg Calcium 9.5 (8.6-10.3) mg/dl Urine Osmolality (500-800) mOsm/kg Ur Random Sodium 58 mmol/L 11/27/22/03/13 Range/Units 15:30 14:52 WBC (4.8-10.8) K/ul RBC (4.70-6.10) M/uL Hgb (14.0-18.0) g/dl Hct (42.0-52.0) % MCV (80.0-100.0) fL MCH (25.0-34.0) pg MCHC (32.0-36.0) g/dL RDW Std Deviation (36.4-46.3) fL RDW Coeff of Giovana (11.5-14.5) % Plt Count (130-400) K/uL MPV (9.4-12.4) fL Sodium (136-145) mmol/L Potassium (3.5-5.1) mmol/L Chloride (98-107) mmol/L Carbon Dioxide (21-32) mmol/L Anion Gap (3-11) BUN (6-23) mg/dl Creatinine (0.6-1.4) mg/dl Est Cr Clr Drug Dosing ml/min Est GFR ( Amer) ml/min Est GFR (Non-Af Amer) ml/min BUN/Creatinine Ratio (10-20) Glucose (70-99(Fasting)) mg/dl Osmolality 291 (280-300) mOsm/kg Calcium (8.6-10.3) mg/dl Urine Osmolality 224 L (500-800) mOsm/kg Ur Random Sodium mmol/L Resident Activity Tracking Resident Involvement: Resident Care Provided Care Provided: Adult [facility] (5) COPD (chronic obstructive pulmonary disease) COPD type: unspecified COPD Qualified Code(s): J44.9 - Chronic obstructive pulmonary disease, unspecified
--- NOTE | 2022-11-28 18:08 | Billing Data ---
Date of Service November 28, 2022 Coding Level of Care Code 69753 SUB INP/OBS CARE
[2022-11-28] MEDS: QUEtiapine FUMARATE 25 MG TABLET PO SCH (20:27)
[2022-11-28] MEDS: MELATONIN 3 MG TAB PO PRN (21:29)
[2022-11-29] MEDS: hydrOXYzine HCl 10 MG TAB PO PRN (01:25)
[2022-11-29] MEDS: ACETAMINOPHEN 325 MG TAB PO PRN (01:25)
[2022-11-29 06:37] LABS: Hematocrit (blood only) 28.5 % (42.0-52.0); Hemoglobin 9.1 g/dl (14.0-18.0); Mean Corpuscular Hemoglobin 29.8 pg (25.0-34.0); Mean Corpuscular Hgb Conc 31.9 g/dL (32.0-36.0); Mean Corpuscular Volume 93.4 fL (80.0-100.0); Mean Platelet Volume 10.1 fL (9.4-12.4); Platelet Count 238 K/uL (130-400); RDW Coefficient of Variation 17.9 % (11.5-14.5); RDW Standard Deviation 61.7 fL (36.4-46.3); Red Blood Count 3.05 M/uL (4.70-6.10); White Blood Count 9.03 K/ul (4.8-10.8)
[2022-11-29 07:06] LABS: BUN Creatinine Ratio 7.2 (10-20); Calcium 9.9 mg/dl (8.6-10.3); Creatinine Clr Calc Pharmacy 9.3 ml/min; Est GFR (African American) 7.6 ml/min; Est GFR (Non-African American) 6.6 ml/min; Potassium 5.3 mmol/L (3.5-5.1)
[2022-11-29] MEDS: ALBUT/IPRATROP 3MG/0.5MG NEB 3 ML VIAL INH SCH ×2 (07:12→19:10)
[2022-11-29] MEDS ORDERED: SODIUM ZIRCONIUM CYCLOSILICATE 10 GM PACKET PO ONE (08:23)
--- NOTE | 2022-11-29 08:26 | Nephrology Progress Note ---
Date of Service November 29, 2022 Assessment & Plan (1) ESRD on dialysis: Plan: * Transitioned from PD to HD due to progressive azotemia, mental status changes * Serum potassium is mildly elevated. Will provide one dose of Lokelma this am * Will schedule next HD for am * L IJ TCC placed 11/19/[address] Yeboah. Patient will need PD catheter removal and AVF creation as outpatient * Case management to set up outpatient HD at [facility] * Awaiting placement at [facility] or [facility] (2) Secondary hyperparathyroidism: Plan: * Continue renal diet * Continue calcitriol 1 mcg po QAM * Auryxia not available while inpatient and substituted with Renvela 1 tab QAC (3) Anemia: Plan: * Epogen 4000 units provided with HD 11/23/22 * Venofer 100 mg IV and Epogen 20,000 units to be provided with HD 11/27/22 Admission and Anticipated Discharge Date Admission Date: November 18, 2022 Subjective Mr. Redmond was evaluated in his hospital room this morning. He indicates that he is subjectively improved since transitioning from PD to HD. Mr. Redmond is anxious to leave the hospital Review of Systems Constitutional: no fever Eyes: no worsening vision Ear, Nose, Mouth, Throat: no problem reported Respiratory: no cough and no dyspnea Cardiovascular: no chest pain Gastrointestinal: no abdominal pain, no nausea, no vomiting and no diarrhea/loose stools Physical Exam Constitutional: not in distress Eyes: PERRL, conjunctivae normal, anicteric sclerae Neck: trachea midline, no thyromegaly L IJ TCC w/ clean, dry dressing Respiratory: normal respiratory effort, lungs clear to auscultation Cardiovascular: Rate/Rhythm: regular rate and regular rhythm Extremities: + edema (1+ pretibial pitting edema) Gastrointestinal (Abdomen): normal bowel sounds, soft, nontender, no hepatosplenomegaly Skin: no rashes, warm and dry Neurologic: Speech / Cognition: normal speech and normal cognition Results & Data Vital Signs (Past 12 Hours) Vital Signs Temp Pulse Pulse Pulse Resp BP Pulse Ox 11/29/22 07:35 36.8 C 83 16 170/76 H 94 11/29/22 07:20 36.5 C 83 18 169/87 H 96 11/29/22 07:12 75 16 93 11/28/22 20:30 11/28/22 22:07 36.5 C 83 18 160/82 H 93 O2 Del Method 11/29/22 07:35 Room Air 11/29/22 07:20 Room Air 11/29/22 07:12 Room Air 11/28/22 20:30 Room Air 11/28/22 22:07 Room Air Laboratory Results Laboratory Tests 11/29/22 11/29/22 05:58 05:58 WBC 9.03 Hgb 9.1 L Hct 28.5 L Plt Count 238 Sodium 132 L Potassium 5.3 H Chloride 97 L Carbon Dioxide 22 BUN 54 H Creatinine 7.46 H* D Glucose 79 Calcium 9.9 PG Care Time/CCT Total # of Minutes Spent Total Time Spent with Patient: Total time spent is greater than 50% in coordination of care (as documented) at patient's floor/unit and/or counseling patient: Coding Level of Care Code 02934 SUB INP/OBS CARE 3/50MIN Diagnoses ESRD on dialysis N18.6; Z99.2 Secondary hyperparathyroidism N25.81 Anemia D64.9 Anemia type: unspecified type (3) Anemia Anemia type: unspecified type Qualified Code(s): D64.9 - Anemia, unspecified
[2022-11-29] MEDS: AMIODARONE 200 MG TAB PO SCH (09:11)
[2022-11-29] MEDS: amLODIPine BESYLATE 5 MG TAB PO SCH (09:11)
[2022-11-29] MEDS: NEPHROCAPS PO SCH (09:11)
[2022-11-29] MEDS: THIAMINE HCL 100 MG TAB PO SCH (09:11)
[2022-11-29] MEDS: CINACALCET HCL 30 MG TAB PO SCH ×2 (09:12→21:26)
[2022-11-29] MEDS: CALCITRIOL 0.25 MCG CAPSULE PO SCH (09:12)
[2022-11-29] MEDS: SEVELAMER HCL 800 MG TABLET PO SCH ×3 (09:12→17:38)
[2022-11-29] MEDS: DIVALPROEX DELAY RELEASE 500 MG TAB PO SCH (09:12)
[2022-11-29] MEDS: guaiFENesin 600 MG TABCR PO SCH ×2 (09:13→21:25)
[2022-11-29] MEDS: HEPARIN SOD 5,000 UNIT/0.5 ML VIAL SQ SCH ×2 (09:14→21:25)
[2022-11-29] MEDS: POLYETHYLENE (MIRALAX) 17 GM PACK PO SCH ×2 (09:14→21:26)
[2022-11-29] MEDS: TRIAMCINOLONE ACET 0.1% OINT 80 GM TUBE EXT SCH ×2 (09:16→21:26)
[2022-11-29] MEDS: EUCERIN CR 120 GM JAR EXT SCH ×2 (09:17→21:27)
[2022-11-29] MEDS: ACETAMINOPHEN 325 MG TAB PO SCH ×2 (09:22→21:24)
[2022-11-29] MEDS: DOCUSATE SODIUM 100 MG CAP PO SCH ×2 (09:22→21:26)
[2022-11-29] MEDS: CALCIUM CARBONATE 500 MG CHEWABLE TAB PO SCH ×3 (09:22→17:38)
[2022-11-29] MEDS: UMECLIDINIUM/VILANTEROL 62.5/25MCG 7 PUFFS/INHALER INH SCH (09:53)
--- NOTE | 2022-11-29 10:16 | XRay Report ---
XR chest 1V portable CLINICAL HISTORY: pain TECHNIQUE: Single frontal radiograph of the chest was obtained. Comparison: Comparison is made to chest radiograph 11/17/2022 FINDINGS: Dual lumen venous catheter is seen. Cardiomegaly is noted. The aortic arch is calcified. Multifocal a irspace opacities are seen. No evidence of pleural effusion or pneumothorax. IMPRESSION: Multifocal airspace opacities may represent atelectasis, pneumonia, and/or aspiration. Stable cardiom egaly. ACT 112: Negative or not required by law. Electronically signed by: Arthur Taylor M.D. 11/29/2022 10:13 AM
[2022-11-29] MEDS: cefTRIAXone SODIUM 2,000 MG in DEXTROSE 5% 50 ML IV SCH (11:52)
--- NOTE | 2022-11-29 12:45 | Ultrasound Report ---
US abdomen ltd ascites CLINICAL HISTORY: abdominal edema, hx of peritoneal dialysis TECHNIQUE: Real-time grayscale sonographic images of the abdomen were obtained. Comparison: None available at the time of this dictation. FINDINGS/IMPRESSION: Trace ascites is seen. ACT 112: Negative or not required by law. Electronically signed by: Arthur Taylor M.D. 11/29/2022 12:44 PM
--- NOTE | 2022-11-29 13:01 | Hospitalist Progress Note ---
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 Patient has improved with minimal intervention and is being seen by nephrology who recommended switching to hemodialysis. Pneumonia - Pt w/ acute complaint of back pain and generalized edema on 11/29 - CXR 11/29: Multifocal airspace opacities may represent atelectasis, pneumonia, and/or aspiration. Stable cardiomegaly. - Patient started on ceftriaxone 11/29; plan for 7 day total course of abx therapy - MRSA nares ordered, pending Abdominal distension and generalized edema - Abdominal US: trace ascites - Continue to monitor Weakness, ambulatory dysfunction, metabolic encephalopathy - Presented with confusion and weakness ongoing over several days with a fall; also took extra doses of home medications (in this state) prior to coming in - Suspect largely secondary to acidemia and uremia. Infectious and metabolic work-up otherwise negative vianey dmission. - Metabolic encephalopathy resolved with initiation of HD - Disposition plans pending rehab/outpatient dialysis. Appreciate CM support and assistance with dispo planning. 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 May consider in near future pending progress and re-evaluations of mental status - Venofer given while here, phosphate binder ongoing - [facility] for outpatient dialysis upon discharge Pruritus - Itchiness improved, but still not resolved w/ hydroxyzine 10mg TID prn - Continue trial of hydroxyzine + triamcinolone 0.1% oint to back BID as well as eucerin to prevent drying out Wrist pain - Most likely tendonitis or tenosynovitis - Ordered wrist splint for patient to use COPD - Continue home regimen Insomnia - Currently receiving melatonin 15 mg HS PRN - Cautious to add more sedating agents in the setting of his age and Alzheimer's - Discussion with family regarding sleep concerns (including day/night switch); environmental factors discussed Diet: renal diet, heart healthy DVT ppx: heparin Disposition: med/telemetry, discharge is pending SNF placement; CM assisting Code status: full (2) High anion gap metabolic acidosis: (3) End-stage renal disease on peritoneal dialysis: (4) Ambulatory dysfunction: (5) COPD (chronic obstructive pulmonary disease): Admission and Anticipated Discharge Date Admission Date: November 18, 2022 Supervising Physician Co-Signing Physician Notes I personally examined the patient and verified all reyes points of history and exam, discussed case, and agree with decision making with Dr Stein When seen by resident physician this morning, family, resident had both noted that patient's abdomen seemed much larger and more distended, and he had more leg swelling. Even more than that, he was complaining of a periscapular pain on the left side. Somewhat difficult history, seem to be a bit more labored breathing although he denies shortness of breath. Given and limited history from the patientfairly broad secondary work-up launchedultrasound abdomen only showed trace ascites but chest x-ray consistent with pneumoniawith the most dense area of a multifocal consolidation being seen in the area on the left corresponding with his periscapular pain. Vitals noted, in general he is sleeping a good bit, awakens a little, appears to be a little bit more labored breathing than the last week but still on room air and otherwise in no distress. His abdomen is somewhat distended in a way that feels more consistent with gaseous distention, he has bilateral lower extremity symmetric 2+ edema. No rashes pallor or icterus or focal neurodeficits. Pneumoniaappears to have developed a secondary pneumoniaour differential was fairly broad given his vague and fairly diffuse complaints, and we considered VTEbut without significant hypoxia, no distress, no tachycardia, and pharmacologic DVT prophylaxis, this was deemed unlikely. Considered SBP given that he used to use peritoneal dialysis, but than 9 although distended exam and trace ascites only on ultrasound made this extremely unlikely. Chest x-ray to evaluate for pleuritic reasons for his periscapular pain yielded pneumonia, which fit the clinical picture the best. Given no sepsis/severe sepsis/septic shockceftriaxone started. Given his overall clinical stability, I doubt MRSA coverage will be needed, but to rule out needwe are repeating a MRSA nares (of note earlier this hospital stay it was negative). With the remainder of the work-up being negative, I suspect his abdominal distention is gaseouswhether it be from a degree of constipation, or more likely (since he is moving his bowels) from swallowing air with his somewhat more labored breathing, and then the increased lower extremity edema is probably venous stasis mediated from being sicker, as well as from the abdominal distention. Continue to follow all of the above closelyas obviously his differentials are currently a "work in progress"but he appears most consistent with a pneumonia, and treatment has been started. Uremic encephalopathyimproved with dialysis. HD ongoing and being set up for outpt. case management still working on SNF/rehab. Overall stable once bed available. Otherwise as above. moisturizer/topical triamcinolone for itching to try to minimize need for systemic antihistamines. [id number] today Delirium/dementia extensive discussion with family, educated, answered all quest ions the best my ability, offered anticipatory guidance, empathy, and support. for SNF when set up Subjective Patient seen and evaluated at bedside this morning. Family member also at bedside. Patient notes acute onset of BLE and BUE swelling as well as acute left upper back pain at scapular region. Patient notes that he woke up feeling at baseline this morning and these symptoms started a bit after waking up. Family member also notes abdominal distension/swelling. Patient denies CP, SOB, BROWER, lightheadedness, nausea, vomiting, or abdominal pain. Review of Systems Review of Systems: See HPI Physical Exam Physical Exam: GENERAL: No acute distress. Elderly male, appears fatigued, sitting on side of bed. Vital signs reviewed as above. EYES: Anicteric sclerae. HENT: Moist mucous membranes. RESPIRATORY: + crackles bilaterally, most prominent left base. Normal respiratory effort. No increased work of breathing. CARDIOVASCULAR: Regular rate and rhythm. No murmurs. ABDOMEN: + abdominal distension. No tenderness to palpation. Normal bowel sounds. EXTREMITIES: BLE edema 3+, pitting. BUE with trace pitting edema. MSK: + tenderness to palpation at inferior border of left scapula SKIN: Warm, dry. NEUROLOGIC: Alert. Normal speech. No focal neurological deficits. PSYCHIATRIC: Cooperative. Appropriate mood and affect. Results & Data Results & Data Vital Signs (Past 12 Hours) Vital Signs Temp Pulse Pulse Pulse Resp BP Pulse Ox 11/29/22 07:30 11/29/22 07:35 36.8 C 83 16 170/76 H 94 11/29/22 07:20 36.5 C 83 18 169/87 H 96 11/29/22 07:12 75 16 93 O2 Del Method 11/29/22 07:30 Room Air 11/29/22 07:35 Room Air 11/29/22 07:20 Room Air 11/29/22 07:12 Room Air Laboratory Results 11/29/22 11/29/22 Range/Units 05:58 05:58 WBC 9.03 (4.8-10.8) K/ul RBC 3.05 L (4.70-6.10) M/uL Hgb 9.1 L (14.0-18.0) g/dl Hct 28.5 L (42.0-52.0) % MCV 93.4 (80.0-100.0) fL MCH 29.8 (25.0-34.0) pg MCHC 31.9 L (32.0-36.0) g/dL RDW Std Deviation 61.7 H (36.4-46.3) fL RDW Coeff of Giovana 17.9 H (11.5-14.5) % Plt Count 238 (130-400) K/uL MPV 10.1 (9.4-12.4) fL Sodium 132 L (136-145) mmol/L Potassium 5.3 H (3.5-5.1) mmol/L Chloride 97 L (98-107) mmol/L Carbon Dioxide 22 (21-32) mmol/L Anion Gap 13 H (3-11) BUN 54 H (6-23) mg/dl Creatinine 7.46 H* D (0.6-1.4) mg/dl Est Cr Clr Drug Dosing 9.3 ml/min Est GFR ( Amer) 7.6 ml/min Est GFR (Non-Af Amer) 6.6 ml/min BUN/Creatinine Ratio 7.2 L (10-20) Glucose 79 (70-99(Fasting)) mg/dl Calcium 9.9 (8.6-10.3) mg/dl Diagnostic Findings [facility], [place] [phone] XRay Report Patient:ALEX LAMAS Admit Date:11/18/22 MR#:[id number] Address1: [address] Acct ID:[id number] Address2: Date:[address] [facility] Zip:[place] [address] Age:72 Location:3N Sex:M Room/Bed:[facility] Att Phy:Trent Christianson D.O. Diagnosis:PD MALFUNCTION Danelle Phy:Jennifer Shanks DO Service Date:11/29/22 Fam Phy: Interpreting Phy:Arthur Taylor MDAdmit Phy:Kevin Medina MD Ordering Phy:Sonam Stein DO cc: ~ XR chest 1V portable CLINICAL HISTORY: pain TECHNIQUE: Single frontal radiograph of the chest was obtained. Comparison: Comparison is made to chest radiograph 11/17/2022 FINDINGS: Dual lumen venous catheter is seen. Cardiomegaly is noted. The aortic arch is calcified. Multifocal airspace opacities are seen. No evidence of pleural effusion or pneumothorax. IMPRESSION: Multifocal airspace opacities may represent atelectasis, pneumonia, and/or aspiration. Stable cardiomegaly. ACT 112: Negative or not required by law. Electronically signed by: Arthur Taylor M.D. 11/29/2022 10:13 AM Dictated:11/29/221007 Transcribed: 11/29/22 [address] [facility], [place] [phone] Ultrasound Report Patient:ALEX LAMAS Admit Date:11/18/22 MR#:[id number] Address1:[facility] [address] Acct ID:[id number] Address2: Date:[address] [facility] Zip:[place] [address] Age:72 Location:3N Sex:M Room/Bed:[facility] Att Phy:Trent Christianson D.O. Diagnosis:PD MALFUNCTION Danelle Phy:Jennifer Shanks DO Service Date:11/29/22 Fam Phy: Interpreting Phy:Arthur Taylor MDAdmit Phy:Kevin Medina MD Ordering Phy:Sonam Stein DO cc: ~ US abdomen ltd ascites CLINICAL HISTORY: abdominal edema, hx of peritoneal dialysis TECHNIQUE: Real-time grayscale sonographic images of the abdomen were obtained. Comparison: None available at the time of this dictation. FINDINGS/IMPRESSION: Trace ascites is seen. ACT 112: Negative or not required by law. Electronically signed by: Arthur Taylor M.D. 11/29/2022 12:44 PM Dictated:11/29/22 124 Transcribed: 11/29/22 124 Resident Activity Tracking Resident Involvement: Resident Care Provided Care Provided: Adult Hospital Medicine (5) COPD (chronic obstructive pulmonary disease) COPD type: unspecified COPD Qualified Code(s): J44.9 - Chronic obstructive pulmonary disease, unspecified
--- NOTE | 2022-11-29 17:58 | Billing Data ---
Date of Service November 29, 2022 Coding Level of Care Code 74844 SUB INP/OBS CARE MIN
[2022-11-29] MEDS: QUEtiapine FUMARATE 25 MG TABLET PO SCH (21:26)
[2022-11-29] MEDS: MELATONIN 3 MG TAB PO PRN (21:26)
[2022-11-30] MEDS ORDERED: SODIUM CHLORIDE 0.9% 1000ML 1,000 ML IV PRN (07:00)
[2022-11-30 07:11] LABS: Basophils # (auto) 0.11 K/uL (0-0.2); Basophils % (auto) 1.2 %; Eosinophils # (auto) 0.39 K/uL (0-0.50); Eosinophils % (auto) 4.4 %; Immature Granulocytes # (auto) 0.07 K/uL (0.01-0.20); Immature Granulocytes % (auto) 0.8 %; Lymphocytes # (auto) 0.71 K/uL (1.2-3.4); Mean Corpuscular Hemoglobin 30.3 pg (25.0-34.0); Mean Corpuscular Hgb Conc 32.1 g/dL (32.0-36.0); Mean Corpuscular Volume 94.3 fL (80.0-100.0); Mean Platelet Volume 10.5 fL (9.4-12.4); Monocytes # (auto) 1.09 K/uL (0.11-0.59); Monocytes % (auto) 12.3 %; Neutrophils # (auto) 6.49 K/uL (1.40-6.50); Neutrophils % (auto) 73.3 %; Platelet Count 243 K/uL (130-400); RDW Coefficient of Variation 18.1 % (11.5-14.5); RDW Standard Deviation 62.5 fL (36.4-46.3); Red Blood Count 2.97 M/uL (4.70-6.10); White Blood Count 8.86 K/ul (4.8-10.8)
[2022-11-30] MEDS: ALBUT/IPRATROP 3MG/0.5MG NEB 3 ML VIAL INH SCH ×2 (07:20→19:07)
[2022-11-30 07:30] LABS: BUN Creatinine Ratio 7.2 (10-20); Creatinine Clr Calc Pharmacy 7.7 ml/min; Est GFR (Non-African American) 5.2 ml/min; Potassium 5.7 mmol/L (3.5-5.1)
[2022-11-30] MEDS ORDERED: HEPARIN SOD (PORCINE) 1000 UNIT/ML IV SCH (08:00)
[2022-11-30] MEDS: CALCIUM CARBONATE 500 MG CHEWABLE TAB PO SCH ×3 (08:31→17:25)
[2022-11-30] MEDS: CINACALCET HCL 30 MG TAB PO SCH ×2 (08:32→20:42)
[2022-11-30] MEDS: guaiFENesin 600 MG TABCR PO SCH ×2 (08:33→20:42)
[2022-11-30] MEDS: SEVELAMER HCL 800 MG TABLET PO SCH ×3 (08:34→17:25)
[2022-11-30] MEDS: AMIODARONE 200 MG TAB PO SCH (08:34)
[2022-11-30] MEDS: amLODIPine BESYLATE 5 MG TAB PO SCH (08:35)
[2022-11-30] MEDS: DIVALPROEX DELAY RELEASE 500 MG TAB PO SCH (08:36)
[2022-11-30] MEDS: THIAMINE HCL 100 MG TAB PO SCH (08:36)
[2022-11-30] MEDS: CALCITRIOL 0.25 MCG CAPSULE PO SCH (08:36)
[2022-11-30] MEDS: NEPHROCAPS PO SCH (08:36)
[2022-11-30] MEDS: EUCERIN CR 120 GM JAR EXT SCH ×2 (08:37→20:47)
[2022-11-30] MEDS: TRIAMCINOLONE ACET 0.1% OINT 80 GM TUBE EXT SCH ×2 (08:38→20:47)
[2022-11-30] MEDS: HEPARIN SOD 5,000 UNIT/0.5 ML VIAL SQ SCH ×2 (08:38→20:46)
[2022-11-30] MEDS: POLYETHYLENE (MIRALAX) 17 GM PACK PO SCH ×2 (08:40→20:41)
[2022-11-30] MEDS: DOCUSATE SODIUM 100 MG CAP PO SCH ×2 (08:40→20:41)
[2022-11-30] MEDS: ACETAMINOPHEN 325 MG TAB PO SCH ×2 (08:40→20:40)
[2022-11-30] MEDS: UMECLIDINIUM/VILANTEROL 62.5/25MCG 7 PUFFS/INHALER INH SCH (08:41)
--- NOTE | 2022-11-30 09:05 | Nephrology Progress Note ---
Date of Service November 30, 2022 Assessment & Plan (1) ESRD on dialysis: Plan: * Transitioned from PD to HD due to progressive azotemia, mental status changes * L IJ TCC placed 11/19/[address] Yeboah. Patient will need PD catheter removal and AVF creation as outpatient * Will provide HD today. If I&O are correct, patient is 9 L volume positive. Blood pressure is elevated and PE is c/w volume overload. 11/29 CXR did show patchy bilateral infiltrates. Management discussed w/ HD set staff fitter. Will increase time to 4 hours today and attempt 4 L UF. Will order follow up CXR for am * Case management to set up outpatient HD at [facility] * Awaiting placement at [facility] or [facility] (2) Secondary hyperparathyroidism: Plan: * Continue renal diet * Continue calcitriol 1 mcg po QAM * Auryxia not available while inpatient and substituted with Renvela 1 tab QAC (3) Anemia: Plan: * Will provide PATRICK w/ HD today Admission and Anticipated Discharge Date Admission Date: November 18, 2022 Subjective Mr. Redmond was evaluated in his hospital room this morning. He c/o mild dyspnea and progressive LE swelling Review of Systems Constitutional: no fever Eyes: no worsening vision Ear, Nose, Mouth, Throat: no problem reported Respiratory: no cough and no dyspnea Cardiovascular: no chest pain Gastrointestinal: no abdominal pain, no nausea, no vomiting and no diarrhea/loose stools Physical Exam Constitutional: not in distress Eyes: PERRL, conjunctivae normal, anicteric sclerae Neck: trachea midline, no thyromegaly Respiratory: normal respiratory effort, lungs clear to auscultation Cardiovascular: RRR, no murmur, no edema Rate/Rhythm: regular rate and regular rhythm Extremities: + edema (1+ pretibial pitting edema) Gastrointestinal (Abdomen): normal bowel sounds, soft, nontender, no hepatosplenomegaly Skin: no rashes, warm and dry Neurologic: Speech / Cognition: normal speech and normal cognition Results & Data Vital Signs (Past 12 Hours) Vital Signs Temp Pulse Resp BP Pulse Ox O2 Del Method 11/30/22 07:50 36.5 C 82 16 185/70 H 90 Room Air 11/30/22 07:21 82 18 90 Room Air Laboratory Results Laboratory Tests 11/30/22 11/30/22 06:36 06:36 WBC 8.86 Hgb 9.0 L Hct 28.0 L Plt Count 243 Sodium 131 L Potassium 5.7 H Chloride 95 L Carbon Dioxide 22 BUN 65 H Creatinine 9.07 H* D Glucose 81 Calcium 10.0 PG Care Time/CCT Total # of Minutes Spent Total Time Spent with Patient: Total time spent is greater than 50% in coordination of care (as documented) at patient's floor/unit and/or counseling patient: Coding Level of Care Code 26981 SUB INP/OBS CARE 3/50MIN Diagnoses ESRD on dialysis N18.6; Z99.2 Secondary hyperparathyroidism N25.81 Anemia D64.9 Anemia type: unspecified type (3) Anemia Anemia type: unspecified type Qualified Code(s): D64.9 - Anemia, unspecified
[2022-11-30] MEDS ORDERED: EPOETIN ALFA 10,000 UNITS/ML VIAL SQ ONE (09:07)
--- NOTE | 2022-11-30 10:41 | Hospitalist Progress Note ---
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 Patient has improved with minimal intervention and is being seen by nephrology who recommended switching to hemodialysis. Pneumonia - Pt w/ acute complaint of back pain and generalized edema on 11/29 - CXR 11/29: Multifocal airspace opacities may represent atelectasis, pneumonia, and/or aspiration. Stable cardiomegaly. - Patient started on ceftriaxone 11/29; plan for 7 day total course of abx therapy - MRSA nares negative. Abdominal distension and generalized edema - Abdominal US: trace ascites. - Continue to monitor Weakness, ambulatory dysfunction, metabolic encephalopathy - Presented with confusion and weakness ongoing over several days with a fall; also took extra doses of home medications (in this state) prior to coming in - Suspect largely secondary to acidemia and uremia. Infectious and metabolic work-up otherwise negative on admission. - Metabolic encephalopathy resolved with initiation of HD - Disposition plans pending rehab/outpatient dialysis. Appreciate CM support and assistance with dispo planning. 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 May consider in near future pending progress and re-evaluations of mental status - Venofer given while here, phosphate binder ongoing - [facility] for outpatient dialysis upon discharge Pruritus - Itchiness improved, but still not resolved w/ hydroxyzine 10mg TID prn - Continue trial of hydroxyzine + triamcinolone 0.1% oint to back BID as well as eucerin to prevent drying out Wrist pain - Most likely tendonitis or tenosynovitis - Ordered wrist splint for patient to use COPD - Continue home regimen Insomnia - Currently receiving melatonin 15 mg HS PRN - Cautious to add more sedating agents in the setting of his age and Alzheimer's - Discussion with family regarding sleep concerns (including day/night switch); environmental factors discussed Diet: renal diet, heart healthy DVT ppx: heparin Disposition: med/telemetry, discharge is pending SNF placement; CM assisting Code status: full (2) High anion gap metabolic acidosis: (3) End-stage renal disease on peritoneal dialysis: (4) Ambulatory dysfunction: (5) COPD (chronic obstructive pulmonary disease): Admission and Anticipated Discharge Date Admission Date: November 18, 2022 Supervising Physician Co-Signing Physician Notes Attending attestation Pt seen and examined in concert with Dr. Vides. In agreement with the documented findings as noted in the resident documentation with any exceptions or additions as noted here. No acute complaints ,tolerated HD well today. On examination, S1/S2 nl RRR no MCG. CTAB. Abd NT/ND BS+ve Weakness, ambulatory dysfunction - PT/OT - pending coordination for outpatient rehab/dialysis Else see resident documentation as noted. Subjective Patient seen at the bedside with only complaint being itching, he is also itching to go to the rehab facility to continue his journey. No overnight events. Review of Systems Review of Systems: See HPI Physical Exam Constitutional: WD/WN, vitals as above Respiratory: normal respiratory effort, lungs clear to auscultation Cardiovascular: RRR, no murmur, no edema Gastrointestinal (Abdomen): normal bowel sounds, soft, nontender, no hepatosplenomegaly Skin: no rashes, warm and dry Psychiatric: A+Ox3, euthymic affect Results & Data Results & Data Vital Signs (Past 12 Hours) Vital Signs Temp Pulse Pulse Pulse Resp BP BP 11/30/22 10:00 81 183/93 H 11/30/22 09:45 36.5 C 79 11/30/22 08:00 11/30/22 07:50 36.5 C 82 16 185/70 H 11/30/22 07:21 82 18 Pulse Ox O2 Del Method 11/30/22 10:00 11/30/22 09:45 11/30/22 08:00 Room Air 11/30/22 07:50 90 Room Air 11/30/22 07:21 90 Room Air Resident Activity Tracking Resident Involvement: Resident Care Provided Care Provided: Adult Hospital Medicine (5) COPD (chronic obstructive pulmonary disease) COPD type: unspecified COPD Qualified Code(s): J44.9 - Chronic obstructive pulmonary disease, unspecified
[2022-11-30] MEDS: HEPARIN SOD (PORCINE) 1000 UNIT/ML IV SCH (11:19)
[2022-11-30] MEDS: hydrOXYzine HCl 10 MG TAB PO PRN (14:24)
[2022-11-30] MEDS: cefTRIAXone SODIUM 2,000 MG in DEXTROSE 5% 50 ML IV SCH (14:25)
[2022-11-30] MEDS: QUEtiapine FUMARATE 25 MG TABLET PO SCH (20:42)
[2022-11-30] MEDS: MELATONIN 3 MG TAB PO PRN (20:45)
[2022-12-01] MEDS: ALBUT/IPRATROP 3MG/0.5MG NEB 3 ML VIAL INH SCH ×2 (06:57→19:26)
--- NOTE | 2022-12-01 07:19 | Hospitalist Progress Note ---
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 Patient has improved with minimal intervention and is being seen by nephrology who recommended switching to hemodialysis. Pneumonia - Pt w/ acute complaint of back pain and generalized edema on 11/29 - CXR 11/29: Multifocal airspace opacities may represent atelectasis, pneumonia, and/or aspiration. Stable cardiomegaly. - Patient started on ceftriaxone 11/29; plan for 7 day total course of abx therapy - MRSA nares negative. Abdominal distension and generalized edema - Abdominal US: trace ascites. - Continue to monitor Weakness, ambulatory dysfunction, metabolic encephalopathy - Presented with confusion and weakness ongoing over several days with a fall; also took extra doses of home medications (in this state) prior to coming in - Suspect largely secondary to acidemia and uremia. Infectious and metabolic work-up otherwise negative on admission. - Metabolic encephalopathy resolved with initiation of HD - Disposition plans pending rehab/outpatient dialysis. Appreciate CM support and assistance with dispo planning. AGMA - acidosis resolved, AG improving s/p HD - AG 23 with HCO3 20 with VBG 7.26 on admission -- pH and AG now normalized - Suspect largely secondary to uremia - Improved following initiation of HD - Likely contributing to encephalopathy ESRD - Patient has a history of ESRD on PD at home prior to admission; though family notes he has been having difficulty with catheter at home with poor drainage/treatment completion [employer] - Nephrology following: continue HD for now - Unsafe to resume PD at home at this time. May consider in near future pending progress and re-evaluations of mental status - Venofer given while here, phosphate binder ongoing - [facility] for outpatient dialysis upon discharge Pruritus - Itchiness improved, but still not resolved w/ hydroxyzine 10mg TID prn - Hydroxyzine has had temporary relief but made patient a little more drowsy during the day. - Topical agents have not worked up to this date. - Will trial anti-histamine - loratadine q48hr ESRD dosing. Wrist pain - Most likely tendonitis or tenosynovitis - Ordered wrist splint for patient to use COPD - Continue home regimen Insomnia - Currently receiving melatonin 15 mg HS PRN - Cautious to add more sedating agents in the setting of his age and Alzheimer's - Discussion with family regarding sleep concerns (including day/night switch); environmental factors discussed Diet: renal diet, heart healthy DVT ppx: heparin Disposition: med/telemetry, discharge is pending SNF placement; CM assisting Code status: full (2) High anion gap metabolic acidosis: (3) End-stage renal disease on peritoneal dialysis: (4) Ambulatory dysfunction: (5) COPD (chronic obstructive pulmonary disease): Admission and Anticipated Discharge Date Admission Date: November 18, 2022 Supervising Physician Co-Signing Physician Notes ATTESTATION I also saw the patient and confirmed reyes portions of the history and exam. I agree with the impression and plan in the resident documentation, and as summarized below. No complaints today except for an itchy back. Overall he is feeling stronger when compared to admission EXAM 148/74, 82, 18, 36.7, 93% on room air Alert and oriented. No acute distress appreciated. He is seated at the edge of the bed Heart regular rate and rhythm Respirations nonlabored Skin on the back without rash/lesion; no drying appreciated DATA Labs Hemoglobin 9, platelet count 243 Sodium 134, potassium 4.7, BUN 31, creatinine 5.7 Imaging Chest x-ray from this morning shows emphysematous changes, cardiomegaly with pulmonary vascular congestion and mild pulmonary edema IMPRESSION & PLAN End-stage renal disease on dialysis Previously on peritoneal dialysis but transition to hemodialysis secondary to progressive azotemia, mental status changes, and overall failure to thrive Appreciate nephrology consultation Appearance on x-ray suggest slight fluid overload, will be addressed via dialysis today; he does not seem to be symptomatic in terms of dyspnea Pruritus Add loratadine 10 mg every other day (renal dosing) Use hydroxyzine 12.5 mg p.o. every 8 hours as needed -we will try to limit due to sedation Additional per resident documentation Subjective Patient seen at the bedtime this morning still with complaint of itching at the back. No other acute complaints stating he feels well. Review of Systems Review of Systems: See HPI Physical Exam Constitutional: WD/WN, vitals as above Respiratory: normal respiratory effort, lungs clear to auscultation Cardiovascular: RRR, no murmur, no edema Gastrointestinal (Abdomen): normal bowel sounds, soft, nontender, no hepatosplenomegaly Skin: no rashes, warm and dry Psychiatric: A+Ox3, euthymic affect Results & Data Results & Data Vital Signs (Past 12 Hours) Vital Signs Temp Pulse Resp BP Pulse Ox O2 Del Method 12/01/22 06:58 81 18 94 Room Air 11/30/22 20:54 36.3 C L 91 H 20 140/64 90 Room Air 11/30/22 19:35 Room Air Resident Activity Tracking Resident Involvement: Resident Care Provided Care Provided: Adult Hospital Medicine (5) COPD (chronic obstructive pulmonary disease) COPD type: unspecified COPD Qualified Code(s): J44.9 - Chronic obstructive pulmonary disease, unspecified
--- NOTE | 2022-12-01 07:52 | XRay Report ---
XR chest 1V portable HISTORY: 72 years-old Male pulmonary edema acute shortness of breath COMPARISON: 11/29/2022, 06/30/2021. TECHNIQUE: AP view of the chest FINDINGS: Cardiac silhouette is enlarged. Unchanged asymmetric right hilar prominence. Dual-lumen hemodialysis catheter distal tip is again noted within the expected location of the mid SVC. Atherosclerosis of th e aorta. Biapical pleural parenchymal scarring with chronic reticular interstitial densities and emph ysema. No pneumothorax, pleural effusion or lobar airspace consolidation. Pulmonary vascular congesti on. Degenerative changes of the shoulders and spine. IMPRESSION: 1. Emphysema with chronic interstitial coarsening. 2. Cardiomegaly with pulmonary vascular congestion and possible mild pulmonary edema. ACT 112: Negative or not required by law. The above report was generated using voice recognition software. It may contain grammatical, syntax o r spelling errors. Electronically signed by: Bethel Logan M.D. 12/01/2022 7:51 AM
[2022-12-01] MEDS: CALCIUM CARBONATE 500 MG CHEWABLE TAB PO SCH ×3 (08:01→17:59)
[2022-12-01] MEDS: CINACALCET HCL 30 MG TAB PO SCH ×2 (08:02→21:14)
[2022-12-01] MEDS: HEPARIN SOD 5,000 UNIT/0.5 ML VIAL SQ SCH ×2 (08:02→21:15)
[2022-12-01] MEDS: ACETAMINOPHEN 325 MG TAB PO SCH ×2 (08:02→21:13)
[2022-12-01] MEDS: EUCERIN CR 120 GM JAR EXT SCH ×2 (08:03→21:14)
[2022-12-01] MEDS: TRIAMCINOLONE ACET 0.1% OINT 80 GM TUBE EXT SCH ×2 (08:03→21:14)
[2022-12-01] MEDS: SEVELAMER HCL 800 MG TABLET PO SCH ×3 (08:03→17:59)
[2022-12-01] MEDS: guaiFENesin 600 MG TABCR PO SCH ×2 (08:04→21:13)
[2022-12-01] MEDS: CALCITRIOL 0.25 MCG CAPSULE PO SCH (08:04)
[2022-12-01] MEDS: AMIODARONE 200 MG TAB PO SCH (08:04)
[2022-12-01] MEDS: amLODIPine BESYLATE 5 MG TAB PO SCH (08:04)
[2022-12-01] MEDS: NEPHROCAPS PO SCH (08:05)
[2022-12-01] MEDS: THIAMINE HCL 100 MG TAB PO SCH (08:05)
[2022-12-01] MEDS: DOCUSATE SODIUM 100 MG CAP PO SCH ×2 (08:05→21:08)
[2022-12-01] MEDS: hydrOXYzine HCl 10 MG TAB PO PRN ×2 (08:05→17:59)
[2022-12-01] MEDS: POLYETHYLENE (MIRALAX) 17 GM PACK PO SCH ×2 (08:05→21:08)
[2022-12-01] MEDS: DIVALPROEX DELAY RELEASE 500 MG TAB PO SCH (08:05)
[2022-12-01] MEDS: UMECLIDINIUM/VILANTEROL 62.5/25MCG 7 PUFFS/INHALER INH SCH (08:39)
[2022-12-01 08:43] LABS: Hematocrit (blood only) 28.6 % (42.0-52.0); Mean Corpuscular Hemoglobin 29.9 pg (25.0-34.0); Mean Corpuscular Hgb Conc 31.5 g/dL (32.0-36.0); Mean Platelet Volume 10.6 fL (9.4-12.4); Platelet Count 243 K/uL (130-400); RDW Standard Deviation 62.4 fL (36.4-46.3); Red Blood Count 3.01 M/uL (4.70-6.10); White Blood Count 6.83 K/ul (4.8-10.8)
[2022-12-01 09:00] LABS: BUN Creatinine Ratio 5.4 (10-20); Calcium 9.4 mg/dl (8.6-10.3); Creatinine Clr Calc Pharmacy 12.2 ml/min; Est GFR (African American) 10.6 ml/min; Est GFR (Non-African American) 9.1 ml/min; Potassium 4.7 mmol/L (3.5-5.1)
--- NOTE | 2022-12-01 10:13 | Nephrology Progress Note ---
Date of Service December 01, 2022 Assessment & Plan (1) ESRD on dialysis: Plan: * Transitioned from PD to HD due to progressive azotemia, mental status changes * L IJ TCC placed 11/19/[address] Yeboah. Patient will need PD catheter removal and AVF creation as outpatient * 12/01/22 CXR shows patchy pulmonary edema is mildly improved * Will schedule next HD for am and attempt additional 4 L UF * Case management to set up outpatient HD at [facility] * Awaiting placement at [facility] or [facility] (2) Secondary hyperparathyroidism: Plan: * Continue renal diet * Continue calcitriol 1 mcg po QAM * Auryxia not available while inpatient and substituted with Renvela 1 tab QAC (3) Anemia: Plan: * PATRICK provided w/ HD 11/30/22 Admission and Anticipated Discharge Date Admission Date: November 18, 2022 Subjective Mr. Redmond was evaluated in his hospital room this morning. He was dialyzed yesterday for 4 L UF without complication. Mr. Redmond notes that his LE swelling is improved. Review of Systems Constitutional: no fever Eyes: no worsening vision Ear, Nose, Mouth, Throat: no problem reported Respiratory: no cough and no dyspnea Cardiovascular: no chest pain Gastrointestinal: no abdominal pain, no nausea, no vomiting and no diarrhea/loose stools Physical Exam Constitutional: not in distress Eyes: PERRL, conjunctivae normal, anicteric sclerae Neck: trachea midline, no thyromegaly Respiratory: normal respiratory effort, lungs clear to auscultation Cardiovascular: RRR, no murmur, no edema Rate/Rhythm: regular rate and regular rhythm Extremities: + edema (1+ pretibial pitting edema) Gastrointestinal (Abdomen): normal bowel sounds, soft, nontender, no he patosplenomegaly Skin: no rashes, warm and dry Neurologic: Speech / Cognition: normal speech and normal cognition Results & Data Vital Signs (Past 12 Hours) Vital Signs Temp Pulse Resp BP Pulse Ox O2 Del Method 12/01/22 08:00 Room Air 12/01/22 07:51 36.5 C 83 18 151/75 H 93 Room Air 12/01/22 06:58 81 18 94 Room Air Laboratory Results Laboratory Tests 12/01/22 12/01/22 07:13 07:13 WBC 6.83 Hgb 9.0 L Hct 28.6 L Plt Count 243 Sodium 134 L Potassium 4.7 Chloride 100 Carbon Dioxide 22 BUN 31 H D Creatinine 5.71 H* D Est GFR (Non-Af Amer) 9.1 Glucose 73 Calcium 9.4 Diagnostic Findings 12/01/22 CXR: patchy pulmonary edema appear mildly improved PG Care Time/CCT Total # of Minutes Spent Total Time Spent with Patient: Total time spent is greater than 50% in coordination of care (as documented) at patient's floor/unit and/or counseling patient: Coding Level of Care Code 92891 SUB INP/OBS CARE 3/50MIN Diagnoses ESRD on dialysis N18.6; Z99.2 Secondary hyperparathyroidism N25.81 Anemia D64.9 Anemia type: unspecified type (3) Anemia Anemia type: unspecified type Qualified Code(s): D64.9 - Anemia, unspecified
[2022-12-01] MEDS: MELATONIN 3 MG TAB PO PRN (21:12)
[2022-12-01] MEDS: QUEtiapine FUMARATE 25 MG TABLET PO SCH (21:14)
[2022-12-02] MEDS ORDERED: SODIUM CHLORIDE 0.9% 1000ML 1,000 ML IV PRN (07:00)
[2022-12-02] MEDS ORDERED: HEPARIN SOD (PORCINE) 1000 UNIT/ML IV ONE (07:00)
[2022-12-02] MEDS: ALBUT/IPRATROP 3MG/0.5MG NEB 3 ML VIAL INH SCH ×2 (07:26→19:30)
--- NOTE | 2022-12-02 08:02 | Hospitalist Progress Note ---
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 Patient has improved with minimal intervention and is being seen by nephrology who recommended switching to hemodialysis. Pneumonia - Pt w/ acute complaint of back pain and generalized edema on 11/29 - CXR 11/29: Multifocal airspace opacities may represent atelectasis, pneumonia, and/or aspiration. Stable cardiomegaly. - Patient started on ceftriaxone 11/29; plan for 7 day total course of abx therapy - MRSA nares negative. Abdominal distension and generalized edema - Abdominal US: trace ascites. - Continue to monitor Weakness, ambulatory dysfunction, metabolic encephalopathy - Presented with confusion and weakness ongoing over several days with a fall; also took extra doses of home medications (in this state) prior to coming in - Suspect largely secondary to acidemia and uremia. Infectious and metabolic work-up otherwise negative on admission. - Metabolic encephalopathy resolved with initiation of HD - Disposition plans pending rehab/outpatient dialysis. Appreciate CM support and assistance with dispo planning. AGMA - acidosis resolved, AG improving s/p HD - AG 23 with HCO3 20 with VBG 7.26 on admission -- pH and AG now normalized - Suspect largely secondary to uremia - Improved following initiation of HD - Likely contributing to encephalopathy ESRD - Patient has a history of ESRD on PD at home prior to admission; though family notes he has been having difficulty with catheter at home with poor drainage/treatment completion [employer] - Nephrology following: continue HD for now - Unsafe to resume PD at home at this time. May consider in near future pending progress and re-evaluations of mental status - Venofer given while here, phosphate binder ongoing - [facility] for outpatient dialysis upon discharge Pruritus - Itchiness improved, but still not resolved w/ hydroxyzine 10mg TID prn - Hydroxyzine has had temporary relief but made patient a little more drowsy during the day. - Topical agents have not worked up to this date. - Will trial anti-histamine - loratadine 10mg q48hr ESRD dosing. Wrist pain - Most likely tendonitis or tenosynovitis - Ordered wrist splint for patient to use COPD - Continue home regimen Insomnia - Currently receiving melatonin 15 mg HS PRN - Cautious to add more sedating agents in the setting of his age and Alzheimer's - Discussion with family regarding sleep concerns (including day/night switch); environmental factors discussed Diet: renal diet, heart healthy DVT ppx: heparin Disposition: med/telemetry, discharge is pending SNF placement; CM assisting Code status: full (2) High anion gap metabolic acidosis: (3) End-stage renal disease on peritoneal dialysis: (4) Ambulatory dysfunction: (5) COPD (chronic obstructive pulmonary disease): Admission and Anticipated Discharge Date Admission Date: November 18, 2022 Supervising Physician Co-Signing Physician Notes ATTESTATION I also saw the patient and confirmed reyes portions of the history and exam. I agree with the impression and plan in the resident documentation, and as summarized below. Patient seen during hemodialysis this morning. Per the dialysis staff, patient had some disorientation/confusion, that may have been actually a dream (thought he was in the [place], looking to go to the bathroom). In the resident's exam earlier this morning, he was alert and oriented. EXAM 159/85, 73, 19, 36.8, 91% room air Heart regular rate and rhythm Respirations nonlabored DATA Labs Hemoglobin stable at 9.4, platelet count 249 Sodium 132, potassium 5, BUN 44, creatinine 7.51 IMPRESSION & PLAN End-stage renal disease on dialysis Previously on peritoneal dialysis but transition to hemodialysis secondary to progressive azotemia, mental status changes, and overall failure to thrive Appearance on x-ray suggest slight fluid overload, will be addressed via dialysis today; he does not seem to be symptomatic in terms of dyspnea Repeat chest x-ray in a.m. Awaiting placement; case management arranging outpatient hemodialysis Pruritus Add loratadine 10 mg every other day (renal dosing) Use hydroxyzine 12.5 mg p.o. every 8 hours as needed -we will try to limit due to sedation Additional per resident documentation Subjective Patient seen at the bedside this morning without any acute complaints other than the back itching. No overnight events, he will go to dialysis today. Review of Systems Review of Systems: See HPI Physical Exam Constitutional: WD/WN, vitals as above Respiratory: normal respiratory effort, lungs clear to auscultation Cardiovascular: RRR, no murmur, no edema Gastrointestinal (Abdomen): normal bowel sounds, soft, nontender, no hepatosplenomegaly Skin: no rashes, warm and dry Psychiatric: A+Ox3, euthymic affect Results & Data Results & Data Vital Signs (Past 12 Hours) Vital Signs Temp Pulse Resp BP Pulse Ox O2 Del Method O2 Flow Rate 12/02/22 07:33 36.7 C 89 19 177/90 H 95 Oxymask 3 12/02/22 07:28 80 18 93 Room Air 12/01/22 21:00 Room Air 12/01/22 20:42 36.6 C 81 18 145/81 H 95 Oxymask 2 Resident Activity Tracking Resident Involvement: Resident Care Provided Care Provided: Adult Hospital Medicine (5) COPD (chronic obstructive pulmonary disease) COPD type: unspecified COPD Qualified Code(s): J44.9 - Chronic obstructive pulmonary disease, unspecified
[2022-12-02] MEDS: DIVALPROEX DELAY RELEASE 500 MG TAB PO SCH (08:09)
[2022-12-02] MEDS: SEVELAMER HCL 800 MG TABLET PO SCH ×3 (08:09→18:00)
[2022-12-02] MEDS: amLODIPine BESYLATE 5 MG TAB PO SCH (08:09)
[2022-12-02] MEDS: THIAMINE HCL 100 MG TAB PO SCH (08:10)
[2022-12-02] MEDS: guaiFENesin 600 MG TABCR PO SCH ×2 (08:10→19:57)
[2022-12-02] MEDS: CINACALCET HCL 30 MG TAB PO SCH ×2 (08:10→19:58)
[2022-12-02] MEDS: CALCITRIOL 0.25 MCG CAPSULE PO SCH (08:10)
[2022-12-02] MEDS: AMIODARONE 200 MG TAB PO SCH (08:10)
[2022-12-02] MEDS: HEPARIN SOD 5,000 UNIT/0.5 ML VIAL SQ SCH ×2 (08:11→19:59)
[2022-12-02] MEDS: NEPHROCAPS PO SCH (08:11)
[2022-12-02] MEDS: EUCERIN CR 120 GM JAR EXT SCH ×2 (08:12→19:59)
[2022-12-02] MEDS: UMECLIDINIUM/VILANTEROL 62.5/25MCG 7 PUFFS/INHALER INH SCH (08:12)
[2022-12-02] MEDS: POLYETHYLENE (MIRALAX) 17 GM PACK PO SCH ×2 (08:15→19:59)
[2022-12-02] MEDS: ACETAMINOPHEN 325 MG TAB PO SCH ×2 (08:15→19:58)
[2022-12-02] MEDS: CALCIUM CARBONATE 500 MG CHEWABLE TAB PO SCH ×3 (08:15→18:00)
[2022-12-02] MEDS: DOCUSATE SODIUM 100 MG CAP PO SCH ×2 (08:15→19:58)
[2022-12-02] MEDS: TRIAMCINOLONE ACET 0.1% OINT 80 GM TUBE EXT SCH ×2 (08:16→19:59)
[2022-12-02 08:31] LABS: Hematocrit (blood only) 29.6 % (42.0-52.0); Hemoglobin 9.4 g/dl (14.0-18.0); Mean Corpuscular Hemoglobin 29.7 pg (25.0-34.0); Mean Corpuscular Hgb Conc 31.8 g/dL (32.0-36.0); Mean Corpuscular Volume 93.4 fL (80.0-100.0); Mean Platelet Volume 9.8 fL (9.4-12.4); Platelet Count 249 K/uL (130-400); RDW Coefficient of Variation 17.7 % (11.5-14.5); RDW Standard Deviation 60.9 fL (36.4-46.3); Red Blood Count 3.17 M/uL (4.70-6.10); White Blood Count 7.12 K/ul (4.8-10.8)
--- NOTE | 2022-12-02 08:50 | Nephrology Progress Note ---
Date of Service December 02, 2022 Assessment & Plan (1) ESRD on dialysis: Plan: * Transitioned from PD to HD due to progressive azotemia, mental status changes * L IJ TCC placed 11/19/[address] Yeboah. Patient will need PD catheter removal and AVF creation as outpatient * 12/01/22 CXR shows patchy pulmonary edema is mildly improved * Will schedule HD today and attempt additional 4 L UF. HD RN notified * Case management to set up outpatient HD at [facility] * Awaiting placement at [facility] or [facility] (2) Secondary hyperparathyroidism: Plan: * Continue renal diet * Continue calcitriol 1 mcg po QAM * Auryxia not available while inpatient and substituted with Renvela 1 tab QAC (3) Anemia: Plan: * PATRICK provided w/ HD 11/30/22 Admission and Anticipated Discharge Date Admission Date: November 18, 2022 Subjective Mr. Redmond was evaluated in his hospital room this morning. He was breathing comfortably on O2 at 3 L/min. Mr. Redmond notes that his LE swelling is mildly improved Review of Systems Constitutional: no fever Eyes: no worsening vision Ear, Nose, Mouth, Throat: no problem reported Respiratory: no cough and no dyspnea Cardiovascular: no chest pain Gastrointestinal: no abdominal pain, no nausea, no vomiting and no diarrhea/loose stools Physical Exam Constitutional: not in distress Eyes: PERRL, conjunctivae normal, anicteric sclerae Neck: trachea midline, no thyromegaly Respiratory: normal respiratory effort, lungs clear to auscultation Cardiovascular: RRR, no murmur, no edema Rate/Rhythm: regular rate and regular rhythm Extremities: + edema (1+ pretibial pitting edema) Gastrointestinal (Abdomen): normal bowel sounds, soft, nontender, no hepatosplenomegaly Skin: no rashes, warm and dry Neurologic: Speech / Cognition: normal speech and normal cognition Results & Data Vital Signs (Past 12 Hours) Vital Signs Temp Pulse Resp BP Pulse Ox O2 Del Method O2 Flow Rate 12/02/22 07:33 36.7 C 89 19 177/90 H 95 Oxymask 3 12/02/22 07:28 80 18 93 Room Air 12/01/22 21:00 Room Air Laboratory Results Laboratory Tests 12/02/22 12/02/22 08:03 08:03 WBC 7.12 Hgb 9.4 L Hct 29.6 L Plt Count 249 Sodium 132 L Potassium 5.0 Chloride 98 Carbon Dioxide 21 BUN 44 H Creatinine 7.51 H* D Glucose 82 Calcium 10.1 PG Care Time/CCT Total # of Minutes Spent Total Time Spent with Patient: Total time spent is greater than 50% in coordination of care (as documented) at patient's floor/unit and/or counseling patient: Coding Level of Care Code 68668 SUB INP/OBS CARE 3/50MIN Diagnoses ESRD on dialysis N18.6; Z99.2 Secondary hyperparathyroidism N25.81 Anemia D64.9 Anemia type: unspecified type (3) Anemia Anemia type: unspecified type Qualified Code(s): D64.9 - Anemia, unspecified
[2022-12-02 08:55] LABS: BUN Creatinine Ratio 5.9 (10-20); Calcium 10.1 mg/dl (8.6-10.3); Creatinine Clr Calc Pharmacy 9.2 ml/min; Est GFR (African American) 7.6 ml/min; Est GFR (Non-African American) 6.5 ml/min
[2022-12-02] MEDS: HEPARIN SOD (PORCINE) 1000 UNIT/ML IV SCH ×2 (09:36→10:35)
[2022-12-02] MEDS: LORATADINE 10 MG TAB PO SCH (13:09)
[2022-12-02] MEDS: QUEtiapine FUMARATE 25 MG TABLET PO SCH (19:59)
[2022-12-02] MEDS: MELATONIN 3 MG TAB PO PRN (20:00)
[2022-12-03] MEDS: ALBUT/IPRATROP 3MG/0.5MG NEB 3 ML VIAL INH SCH ×2 (07:01→19:22)
--- NOTE | 2022-12-03 07:36 | Hospitalist Progress Note ---
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 Patient has improved with minimal intervention and is being seen by nephrology who recommended switching to hemodialysis. Pneumonia - Pt w/ acute complaint of back pain and generalized edema on 11/29 - CXR 11/29: Multifocal airspace opacities may represent atelectasis, pneumonia, and/or aspiration. Stable cardiomegaly. - Patient started on ceftriaxone 11/29; plan for 7 day total course of abx therapy - MRSA nares negative. Abdominal distension and generalized edema - Abdominal US: trace ascites. - Continue to monitor Weakness, ambulatory dysfunction, metabolic encephalopathy - Presented with confusion and weakness ongoing over several days with a fall; also took extra doses of home medications (in this state) prior to coming in - Suspect largely secondary to acidemia and uremia. Infectious and metabolic work-up otherwise negative on admission. - Metabolic encephalopathy resolved with initiation of HD - Disposition plans pending rehab/outpatient dialysis. Appreciate CM support and assistance with dispo planning. AGMA - acidosis resolved, AG improving s/p HD - AG 23 with HCO3 20 with VBG 7.26 on admission -- pH and AG now normalized - Suspect largely secondary to uremia - Improved following initiation of HD - Likely contributing to encephalopathy ESRD - Patient has a history of ESRD on PD at home prior to admission; though family notes he has been having difficulty with catheter at home with poor drainage/treatment completion [employer] - Nephrology following: continue HD for now - Unsafe to resume PD at home at this time. May consider in near future pending progress and re-evaluations of mental status - Venofer given while here, phosphate binder ongoing - [facility] for outpatient dialysis upon discharge Pruritus - Itchiness improved, but still not resolved w/ hydroxyzine 10mg TID prn - Hydroxyzine has had temporary relief but made patient a little more drowsy during the day. - Topical agents have not worked up to this date. - Will trial anti-histamine - loratadine 10mg q48hr ESRD dosing. Wrist pain - Most likely tendonitis or tenosynovitis - Ordered wrist splint for patient to use COPD - Continue home regimen Insomnia - Currently receiving melatonin 15 mg HS PRN - Cautious to add more sedating agents in the setting of his age and Alzheimer's - Discussion with family regarding sleep concerns (including day/night switch); environmental factors discussed Diet: renal diet, heart healthy DVT ppx: heparin Disposition: med/telemetry, discharge is pending SNF placement; CM assisting Code status: full (2) High anion gap metabolic acidosis: (3) End-stage renal disease on peritoneal dialysis: (4) Ambulatory dysfunction: (5) COPD (chronic obstructive pulmonary disease): Supervising Physician Co-Signing Physician Notes ATTESTATION I also saw the patient and confirmed reyes portions of the history and exam. I agree with the impression and plan in the resident documentation, and as summarized below. Patient is undergoing physical therapy today; ambulating in the hallway with a walker, 1 person assist as well for stability. EXAM 149/73, 75, 17, 36.5, 93% on room air Heart regular rate Respirations nonlabored DATA Labs Hemoglobin 9, platelet count 252 Sodium 135, potassium 4.5, BUN 26, creatinine 5.57 Imaging A one-view portable chest x-ray taken this morning shows mild pulmonary edema, slightly improved compared to previous IMPRESSION & PLAN End-stage renal disease on dialysis Previously on peritoneal dialysis but transition to hemodialysis secondary to progressive azotemia, mental status changes, and overall failure to thrive Awaiting placement; case management arranging outpatient hemodialysis Pruritus Loratadine 10 mg every other day (renal dosing) Use hydroxyzine 12.5 mg p.o. every 8 hours as needed -we will try to limit due to sedation Additional per resident documentation Subjective Patient seen at the bedside this morning still having some itching at the back despite anti-histamine use. No other complaints or overnight events. Review of Systems Review of Systems: See HPI Physical Exam Constitutional: WD/WN, vitals as above Respiratory: normal respiratory effort, lungs clear to auscultation Cardiovascular: RRR, no murmur, no edema Gastrointestinal (Abdomen): normal bowel sounds, soft, nontender, no hepatosplenomegaly Skin: no rashes, warm and dry Psychiatric: A+Ox3, euthymic affect Results & Data Results & Data Vital Signs (Past 12 Hours) Vital Signs Temp Pulse Resp BP Pulse Ox Pulse Ox O2 Del Method 12/03/22 07:02 79 16 97 Oxymask 12/03/22 03:19 94 12/02/22 21:42 36.9 C 81 18 165/72 H 93 Room Air 12/02/22 20:00 Room Air O2 Del Method O2 Flow Rate 12/03/22 07:02 2 12/03/22 03:19 Room Air 12/02/22 21:42 12/02/22 20:00 Resident Activity Tracking Resident Involvement: Resident Care Provided Care Provided: Adult Hospital Medicine (5) COPD (chronic obstructive pulmonary disease) COPD type: unspecified COPD Qualified Code(s): J44.9 - Chronic obstructive pulmonary disease, unspecified
--- NOTE | 2022-12-03 07:58 | XRay Report ---
XR chest 1V portable CLINICAL HISTORY: Follow-up pulmonary edema. COMPARISON STUDY: Chest radiograph December 01, 2022. Chest CT June 30, 2021. FINDINGS: A dual-lumen left internal jugular [id number] remains in place. Cardiomegaly is again no fidel. There is no pneumothorax or pleural effusion. Mild interstitial thickening persists. Apparent sl ight interval increase is noted. This may be technical. No definite consolidation. IMPRESSION: Interstitial thickening which favors mild pulmonary edema, stable to slightly increased since prior exam. Cardiomegaly. ACT 112: Negative or not required by law. Electronically signed by: Yunior Arroyo M.D. 12/03/2022 7:56 AM
--- NOTE | 2022-12-03 08:10 | Nephrology Progress Note ---
Date of Service December 03, 2022 Assessment & Plan (1) ESRD on dialysis: Plan: * Transitioned from PD to HD due to progressive azotemia, mental status changes * L IJ TCC placed 11/19/[address] Yeboah. Patient will need PD catheter removal and AVF creation as outpatient * Volume status is improved. Electrolyte balance is acceptable * Will plan next HD for am * Case management to set up outpatient HD at [facility] * Awaiting placement (2) Secondary hyperparathyroidism: Plan: * Continue renal diet * Continue calcitriol 1 mcg po QAM * Auryxia not available while inpatient and substituted with Renvela 1 tab QAC (3) Anemia: Plan: * PATRICK provided w/ HD 11/30/22 Admission and Anticipated Discharge Date Admission Date: November 18, 2022 Subjective Mr. Redmond was evaluated in his hospital room this morning. He was breathing comfortably on RA and reports that his LE swelling has improved. HD was completed yesterday for 4 L UF. Review of Systems Constitutional: no fever Eyes: no worsening vision Ear, Nose, Mouth, Throat: no problem reported Respiratory: no cough and no dyspnea Cardiovascular: no chest pain Gastrointestinal: no abdominal pain, no nausea, no vomiting and no diarrhea/loose stools Physical Exam Constitutional: not in distress Eyes: PERRL, conjunctivae normal, anicteric sclerae Neck: trachea midline, no thyromegaly R IJ TCC w/ clean, dry dressing Respiratory: normal respiratory effort, lungs clear to auscultation Cardiovascular: RRR, no murmur, no edema Rate/Rhythm: regular rate and regular rhythm Extremities: + edema (1+ pretibial pitting edema) Gastrointestinal (Abdomen): normal bowel sounds, soft, nontender, no hepatosplenomegaly PD catheter remains in place w/ clean, dry dressing Skin: no rashes, warm and dry Neurologic: Speech / Cognition: normal speech and normal cognition Results & Data Vital Signs (Past 12 Hours) Vital Signs Temp Pulse Resp BP Pulse Ox Pulse Ox O2 Del Method 12/03/22 07:02 79 16 97 Oxymask 12/03/22 03:19 94 12/02/22 21:42 36.9 C 81 18 165/72 H 93 Room Air O2 Del Method O2 Flow Rate 12/03/22 07:02 2 12/03/22 03:19 Room Air 12/02/22 21:42 Laboratory Results Laboratory Tests 12/02/22 12/02/22 08:03 08:03 WBC 7.12 Hgb 9.4 L Hct 29.6 L Plt Count 249 Sodium 132 L Potassium 5.0 Chloride 98 Carbon Dioxide 21 BUN 44 H Creatinine 7.51 H* D Glucose 82 Calcium 10.1 PG Care Time/CCT Total # of Minutes Spent Total Time Spent with Patient: Total time spent is greater than 50% in coordination of care (as documented) at patient's floor/unit and/or counseling patient: Coding Level of Care Code 81396 SUB INP/OBS CARE 3/50MIN Diagnoses ESRD on dialysis N18.6; Z99.2 Secondary hyperparathyroidism N25.81 Anemia D64.9 Anemia type: unspecified type (3) Anemia Anemia type: unspecified type Qualified Code(s): D64.9 - Anemia, unspecified
[2022-12-03 08:31] LABS: Hematocrit (blood only) 29.4 % (42.0-52.0); Mean Corpuscular Hemoglobin 29.7 pg (25.0-34.0); Mean Corpuscular Hgb Conc 30.6 g/dL (32.0-36.0); Mean Platelet Volume 9.8 fL (9.4-12.4); Platelet Count 252 K/uL (130-400); RDW Coefficient of Variation 17.9 % (11.5-14.5); RDW Standard Deviation 63.9 fL (36.4-46.3); Red Blood Count 3.03 M/uL (4.70-6.10)
[2022-12-03 08:55] LABS: BUN Creatinine Ratio 4.7 (10-20); Calcium 9.4 mg/dl (8.6-10.3); Creatinine Clr Calc Pharmacy 12.5 ml/min; Est GFR (African American) 10.9 ml/min; Est GFR (Non-African American) 9.4 ml/min; Potassium 4.5 mmol/L (3.5-5.1)
[2022-12-03] MEDS: TRIAMCINOLONE ACET 0.1% OINT 80 GM TUBE EXT SCH ×2 (09:05→19:58)
[2022-12-03] MEDS: EUCERIN CR 120 GM JAR EXT SCH ×2 (09:05→19:58)
[2022-12-03] MEDS: DOCUSATE SODIUM 100 MG CAP PO SCH ×2 (09:05→19:57)
[2022-12-03] MEDS: amLODIPine BESYLATE 5 MG TAB PO SCH (09:06)
[2022-12-03] MEDS: SEVELAMER HCL 800 MG TABLET PO SCH ×3 (09:06→17:29)
[2022-12-03] MEDS: POLYETHYLENE (MIRALAX) 17 GM PACK PO SCH ×2 (09:06→19:58)
[2022-12-03] MEDS: HEPARIN SOD 5,000 UNIT/0.5 ML VIAL SQ SCH ×2 (09:06→19:55)
[2022-12-03] MEDS: CALCIUM CARBONATE 500 MG CHEWABLE TAB PO SCH ×3 (09:07→17:29)
[2022-12-03] MEDS: NEPHROCAPS PO SCH (09:07)
[2022-12-03] MEDS: DIVALPROEX DELAY RELEASE 500 MG TAB PO SCH (09:08)
[2022-12-03] MEDS: guaiFENesin 600 MG TABCR PO SCH ×2 (09:08→19:56)
[2022-12-03] MEDS: CALCITRIOL 0.25 MCG CAPSULE PO SCH (09:08)
[2022-12-03] MEDS: ACETAMINOPHEN 325 MG TAB PO SCH ×2 (09:09→19:59)
[2022-12-03] MEDS: CINACALCET HCL 30 MG TAB PO SCH ×2 (09:09→19:57)
[2022-12-03] MEDS: AMIODARONE 200 MG TAB PO SCH (09:10)
[2022-12-03] MEDS: THIAMINE HCL 100 MG TAB PO SCH (09:10)
[2022-12-03] MEDS: UMECLIDINIUM/VILANTEROL 62.5/25MCG 7 PUFFS/INHALER INH SCH (09:10)
[2022-12-03] MEDS: QUEtiapine FUMARATE 25 MG TABLET PO SCH (19:56)
[2022-12-04] MEDS: hydrOXYzine HCl 10 MG TAB PO PRN ×2 (06:09→12:48)
[2022-12-04] MEDS ORDERED: SODIUM CHLORIDE 0.9% 1000ML 1,000 ML IV PRN (07:00)
[2022-12-04] MEDS ORDERED: HEPARIN SOD (PORCINE) 1000 UNIT/ML IV SCH (07:00)
[2022-12-04] MEDS ORDERED: EPOETIN ALFA 10,000 UNITS/ML VIAL IV SCH (07:00)
[2022-12-04] MEDS: ALBUT/IPRATROP 3MG/0.5MG NEB 3 ML VIAL INH SCH ×3 (07:18→19:37)
--- NOTE | 2022-12-04 07:23 | Hospitalist Progress Note ---
Date of Service December 04, 2022 Assessment & Plan Admission and Anticipated Discharge Date Admission Date: November 18, 2022 Results & Data Results & Data Vital Signs (Past 12 Hours) Vital Signs Temp Pulse Pulse Resp BP Pulse Ox O2 Del Method 12/04/22 07:07 36.4 C L 75 16 175/88 H 93 Room Air 12/03/22 19:52 36.7 C 78 18 142/69 H 93 Room Air
[2022-12-04] MEDS: CALCIUM CARBONATE 500 MG CHEWABLE TAB PO SCH ×3 (07:31→17:00)
[2022-12-04] MEDS: SEVELAMER HCL 800 MG TABLET PO SCH ×3 (07:31→17:00)
[2022-12-04] MEDS: ACETAMINOPHEN 325 MG TAB PO SCH ×2 (07:31→19:24)
[2022-12-04] MEDS: NEPHROCAPS PO SCH (07:34)
[2022-12-04] MEDS: LORATADINE 10 MG TAB PO SCH (07:35)
[2022-12-04] MEDS: UMECLIDINIUM/VILANTEROL 62.5/25MCG 7 PUFFS/INHALER INH SCH (07:36)
[2022-12-04] MEDS: TRIAMCINOLONE ACET 0.1% OINT 80 GM TUBE EXT SCH ×2 (07:37→19:27)
[2022-12-04] MEDS: HEPARIN SOD 5,000 UNIT/0.5 ML VIAL SQ SCH ×2 (07:37→19:27)
[2022-12-04] MEDS: DOCUSATE SODIUM 100 MG CAP PO SCH ×2 (07:38→19:24)
[2022-12-04] MEDS: EUCERIN CR 120 GM JAR EXT SCH ×2 (07:38→19:27)
--- NOTE | 2022-12-04 08:42 | Nephrology Progress Note ---
Date of Service December 04, 2022 Assessment & Plan (1) ESRD on dialysis: Plan: * Transitioned from PD to HD due to progressive azotemia, mental status changes * L IJ TCC placed 11/19/[address] Yeboah. Patient will need PD catheter removal and AVF creation as outpatient * Volume status is improved. Electrolyte balance is acceptable * HD today. Will attempt 4L UF. Orders have been entered into EMR and HD RN notified * Case management to set up outpatient HD at [facility] * Awaiting placement (2) Secondary hyperparathyroidism: Plan: * Continue renal diet * Continue calcitriol 1 mcg po QAM * Auryxia not available while inpatient and substituted with Renvela 1 tab QAC (3) Anemia: Plan: * Will provide PATRICK w/ HD today Admission and Anticipated Discharge Date Admission Date: November 18, 2022 Subjective Mr. Redmond was evaluated in his hospital room this morning. He was breathing comfortably on RA and reports that his LE swelling has improved. He is awaiting HD this morning. Review of Systems Constitutional: no fever Eyes: no worsening vision Ear, Nose, Mouth, Throat: no problem reported Respiratory: no cough and no dyspnea Cardiovascular: no chest pain Gastrointestinal: no abdominal pain, no nausea, no vomiting and no diarrhea/loose stools Physical Exam Constitutional: not in distress Eyes: PERRL, conjunctivae normal, anicteric sclerae Neck: trachea midline, no thyromegaly Respiratory: normal respiratory effort, lungs clear to auscultation Cardiovascular: RRR, no murmur, no edema Rate/Rhythm: regular rate and regular rhythm Extremities: + edema (1+ pretibial pitting edema) Gastrointestinal (Abdomen): normal bowel sounds, soft, nontender, no hepatosplenomegaly Skin: no rashes, warm and dry Neurologic: Speech / Cognition: normal speech and normal cognition Results & Data Vital Signs (Past 12 Hours) Vital Signs Temp Pulse Resp BP Pulse Ox O2 Del Method 12/04/22 08:17 36.4 C L 83 12/04/22 07:07 36.4 C L 75 16 175/88 H 93 Room Air Laboratory Results Laboratory Tests 12/03/22 12/03/22 08:04 08:04 WBC 8.20 Hgb 9.0 L Hct 29.4 L Plt Count 252 Sodium 135 L Potassium 4.5 Chloride 102 Carbon Dioxide 23 BUN 26 H Creatinine 5.57 H* D Glucose 86 PG Care Time/CCT Total # of Minutes Spent Total Time Spent with Patient: Total time spent is greater than 50% in coordination of care (as documented) at patient's floor/unit and/or counseling patient: Coding Level of Care Code 30978 SUB INP/OBS CARE 3/50MIN Diagnoses ESRD on dialysis N18.6; Z99.2 Secondary hyperparathyroidism N25.81 Anemia D64.9 Anemia type: unspecified type (3) Anemia Anemia type: unspecified type Qualified Code(s): D64.9 - Anemia, unspecified
[2022-12-04] MEDS: HEPARIN SOD (PORCINE) 1000 UNIT/ML IV SCH ×2 (09:34→10:35)
[2022-12-04] MEDS: guaiFENesin 600 MG TABCR PO SCH ×2 (12:40→19:25)
[2022-12-04] MEDS: POLYETHYLENE (MIRALAX) 17 GM PACK PO SCH ×2 (12:40→19:26)
[2022-12-04] MEDS: CINACALCET HCL 30 MG TAB PO SCH ×2 (12:46→19:23)
[2022-12-04] MEDS: CALCITRIOL 0.25 MCG CAPSULE PO SCH (12:46)
[2022-12-04] MEDS: THIAMINE HCL 100 MG TAB PO SCH (12:47)
[2022-12-04] MEDS: AMIODARONE 200 MG TAB PO SCH (12:47)
[2022-12-04] MEDS: amLODIPine BESYLATE 5 MG TAB PO SCH (12:47)
[2022-12-04] MEDS: DIVALPROEX DELAY RELEASE 500 MG TAB PO SCH (12:47)
[2022-12-04] MEDS ORDERED: hydrOXYzine HCl 10 MG TAB PO ONE (13:45)
--- NOTE | 2022-12-04 15:22 | Hospitalist Progress Note ---
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 Patient has improved with minimal intervention and is being seen by nephrology who recommended switching to hemodialysis. Abdominal distension and generalized edema - Abdominal US: trace ascites. - Continue to monitor Weakness, ambulatory dysfunction, metabolic encephalopathy - Presented with confusion and weakness ongoing over several days with a fall; also took extra doses of home medications (in this state) prior to coming in - Suspect largely secondary to acidemia and uremia. Infectious and metabolic work-up otherwise negative on admission. - Metabolic encephalopathy resolved with initiation of HD - Disposition plans pending rehab/outpatient dialysis. Appreciate CM support and assistance with dispo planning. 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 May consider in near future pending progress and re-evaluations of mental status - Venofer given while here, phosphate binder ongoing - [facility] for outpatient dialysis upon discharge Possible pneumonia - Pt w/ acute complaint of back pain and generalized edema on 11/29 - CXR 11/29:Multifocal airspace opacities may represent atelectasis, pneumonia, and/or aspiration. Stable cardiomegaly. - MRSA nares negative. - Patient's symptoms resolved and repeat CXR was not suggestive of pneumonia, and so patient was not treated for this; we will continue to monitor symptoms and intervene if indicated Pruritus - Itchiness improved, but still not resolved w/ hydroxyzine 10mg TID prn - Hydroxyzine has had temporary relief but made patient a little more drowsy during the day. - Topical agents have not worked up to this date. - Will trial anti-histamine - loratadine 10mg q48hr ESRD dosing. Wrist pain - Most likely tendonitis or tenosynovitis - Ordered wrist splint for patient to use COPD - Continue home regimen Insomnia - Currently receiving melatonin 15 mg HS PRN - Cautious to add more sedating agents in the setting of his age and Alzheimer's - Discussion with family regarding sleep concerns (including day/night switch); environmental factors discussed Diet: renal diet, heart healthy DVT ppx: heparin Disposition: med/telemetry, discharge is pending SNF placement; CM assisting Code status: full (2) Acute respiratory failure with hypoxia: (3) COPD (chronic obstructive pulmonary disease): Admission and Anticipated Discharge Date Admission Date: November 18, 2022 Supervising Physician Co-Signing Physician Notes Attending attestation Pt seen and examined in concert with Dr. Santos. In agreement with the documented findings as noted in the resident documentation with any exceptions or additions as noted here. No acute complaints, tolerating POI well at bedside. On examination, S1/S2 nl RRR no MCG. CTAB. Abd NT/ND BS+ve Weakness, ambulatory dysfunction - PT/OT consult - continue participation and placement to rehab facility ESRD on HD, h/o PD - nephrology consult - HD as scheduled and for resumption of outpatient regimen on discharge Pneumonia - no recurrence of sx, O2 demand nor worsening/changing symptoms, fevers. Monitor for recurrent symptoms, exam findings. Pruritis - ongoing, can increase hydroxyzine, see if we have ammonium lactate Else see resident documentation as noted. Subjective Patient seen and evaluated at bedside this morning. Patient reports his back is still itchy but not terribly bothersome. Otherwise patient feels well and has no additional complaints. Patient denies CP, SOB, abdominal pain, nausea, vomiting, lightheadedness, dizziness, and diarrhea. Review of Systems Review of Systems: See HPI Physical Exam Physical Exam: Constitutional: well-appearing, no acute distress CV: regular rhythm, no murmur appreciated, extremities well-perfused, no LE edema Resp: CTABL, no wheezes/rales/rhonchi appreciated, no increased work of breathing GI: soft, nondistended, nontender, BS normoactive Skin: growth under tip of nose appreciated Neuro: alert, oriented, no focal neurologic deficit appreciated Results & Data Results & Data Vital Signs (Past 12 Hours) Vital Signs Temp Pulse Pulse Resp BP BP Pulse Ox 12/04/22 14:55 36.8 C 80 16 132/73 93 12/04/22 12:29 36.8 C 77 134/74 12/04/22 12:00 74 152/76 H 12/04/22 11:30 73 111/61 12/04/22 11:00 77 115/49 L 12/04/22 10:30 81 140/70 12/04/22 10:00 81 149/71 H 12/04/22 09:30 84 143/77 H 12/04/22 09:00 79 138/78 12/04/22 08:30 79 139/70 12/04/22 08:23 79 133/72 12/04/22 08:17 36.4 C L 83 12/04/22 07:07 36.4 C L 75 16 175/88 H 93 O2 Del Method 12/04/22 14:55 Room Air 12/04/22 12:29 12/04/22 12:00 12/04/22 11:30 12/04/22 11:00 12/04/22 10:30 12/04/22 10:00 12/04/22 09:30 12/04/22 09:00 12/04/22 08:30 12/04/22 08:23 12/04/22 08:17 12/04/22 07:07 Room Air Resident Activity Tracking Resident Involvement: Resident Care Provided Care Provided: Adult Hospital Medicine (3) COPD (chronic obstructive pulmonary disease) COPD type: unspecified COPD Qualified Code(s): J44.9 - Chronic obstructive pulmonary disease, unspecified
[2022-12-04] MEDS: QUEtiapine FUMARATE 25 MG TABLET PO SCH (19:26)
[2022-12-05 06:44] LABS: Hematocrit (blood only) 30.7 % (42.0-52.0); Hemoglobin 9.7 g/dl (14.0-18.0); Mean Corpuscular Hemoglobin 30.3 pg (25.0-34.0); Mean Corpuscular Hgb Conc 31.6 g/dL (32.0-36.0); Mean Corpuscular Volume 95.9 fL (80.0-100.0); Mean Platelet Volume 9.8 fL (9.4-12.4); Platelet Count 282 K/uL (130-400); RDW Coefficient of Variation 18.2 % (11.5-14.5); RDW Standard Deviation 63.9 fL (36.4-46.3)
[2022-12-05 07:12] LABS: BUN Creatinine Ratio 5.2 (10-20); Calcium 9.8 mg/dl (8.6-10.3); Creatinine Clr Calc Pharmacy 13.3 ml/min; Est GFR (African American) 11.8 ml/min; Est GFR (Non-African American) 10.2 ml/min; Potassium 4.9 mmol/L (3.5-5.1)
[2022-12-05] MEDS: ALBUT/IPRATROP 3MG/0.5MG NEB 3 ML VIAL INH SCH ×2 (07:19→19:23)
[2022-12-05] MEDS: CALCIUM CARBONATE 500 MG CHEWABLE TAB PO SCH ×3 (07:49→17:37)
[2022-12-05] MEDS: NEPHROCAPS PO SCH (07:49)
[2022-12-05] MEDS: SEVELAMER HCL 800 MG TABLET PO SCH ×3 (07:49→17:37)
[2022-12-05] MEDS: AMIODARONE 200 MG TAB PO SCH (07:50)
[2022-12-05] MEDS: amLODIPine BESYLATE 5 MG TAB PO SCH (07:50)
[2022-12-05] MEDS: CALCITRIOL 0.25 MCG CAPSULE PO SCH (07:50)
[2022-12-05] MEDS: HEPARIN SOD 5,000 UNIT/0.5 ML VIAL SQ SCH ×2 (07:51→19:38)
[2022-12-05] MEDS: guaiFENesin 600 MG TABCR PO SCH ×2 (07:51→19:39)
[2022-12-05] MEDS: DIVALPROEX DELAY RELEASE 500 MG TAB PO SCH (07:51)
[2022-12-05] MEDS: ACETAMINOPHEN 325 MG TAB PO SCH ×2 (07:52→19:38)
[2022-12-05] MEDS: DOCUSATE SODIUM 100 MG CAP PO SCH ×2 (07:52→19:37)
[2022-12-05] MEDS: CINACALCET HCL 30 MG TAB PO SCH ×2 (07:52→19:40)
[2022-12-05] MEDS: THIAMINE HCL 100 MG TAB PO SCH (07:52)
[2022-12-05] MEDS: UMECLIDINIUM/VILANTEROL 62.5/25MCG 7 PUFFS/INHALER INH SCH (07:53)
[2022-12-05] MEDS: TRIAMCINOLONE ACET 0.1% OINT 80 GM TUBE EXT SCH ×2 (07:53→19:41)
[2022-12-05] MEDS: EUCERIN CR 120 GM JAR EXT SCH ×2 (07:53→19:41)
[2022-12-05] MEDS: POLYETHYLENE (MIRALAX) 17 GM PACK PO SCH ×2 (07:54→19:37)
[2022-12-05] MEDS: hydrOXYzine HCl 10 MG TAB PO PRN (07:54)
--- NOTE | 2022-12-05 07:55 | Hospitalist Progress Note ---
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 Patient has improved with minimal intervention and is being seen by nephrology who recommended switching to hemodialysis. Abdominal distension and generalized edema - Abdominal US: trace ascites. - Continue to monitor Weakness, ambulatory dysfunction, metabolic encephalopathy - Presented with confusion and weakness ongoing over several days with a fall; also took extra doses of home medications (in this state) prior to coming in - Suspect largely secondary to acidemia and uremia. Infectious and metabolic work-up otherwise negative on admission. - Metabolic encephalopathy resolved with initiation of HD - Disposition plans pending rehab/outpatient dialysis. Appreciate CM support and assistance with dispo planning. 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 May consider in near future pending progress and re-evaluations of mental status - Venofer given while here, phosphate binder ongoing - [facility] for outpatient dialysis upon discharge - Will contact Nephro regarding fluid in catheter to ensure no concern -- likely benign serous fluid Abnormal CXR with initial concern for pneumonia - Pt w/ acute complaint of back pain and generalized edema on 11/29 - CXR 11/29:Multifocal airspace opacities may represent atelectasis, pneumonia, and/or aspiration. Stable cardiomegaly. - MRSA nares negative. - Patient's symptoms resolved and repeat CXR was not suggestive of pneumonia, and so patient was not treated for this; we will continue to monitor symptoms and intervene if indicated Pruritus - Itchiness improved, but still not resolved w/ hydroxyzine 10mg TID prn - Hydroxyzine has had temporary relief but made patient a little more drowsy during the day. - Topical agents have not worked up to this date. - Will trial anti-histamine - loratadine 10mg q48hr ESRD dosing. Wrist pain - Most likely tendonitis or tenosynovitis - Ordered wrist splint for patient to use COPD - Continue home regimen Insomnia - Currently receiving melatonin 15 mg HS PRN - Cautious to add more sedating agents in the setting of his age and Alzheimer's - Discussion with family regarding sleep concerns (including day/night switch); environmental factors discussed Diet: renal diet, heart healthy DVT ppx: heparin Disposition: med/telemetry, discharge is pending SNF placement; CM assisting Code status: full (2) Acute respiratory failure with hypoxia: (3) COPD (chronic obstructive pulmonary disease): Admission and Anticipated Discharge Date Admission Date: November 18, 2022 Supervising Physician Co-Signing Physician Notes Attending attestation Pt seen and examined in concert with Dr. Santos. In agreement with the documented findings as noted in the resident documentation with any exceptions or additions as noted here. No acute complaints, family at bedside and tolerating POI well. Overall, pruritis has improved overnight with increased dose of hydroxyzine On examination, S1/S2 nl RRR no MCG. CTAB. Abd NT/ND BS+ve Weakness, ambulatory dysfunction - PT/OT consult - continue participation and placement to rehab facility ESRD on HD, h/o PD - nephrology consult - HD as scheduled and for resumption of outpatient regimen on discharge Pruritis - improved w/ increased hydroxyzine, continue present regimen and consider daytime dose if somnolence is not too big of a barrier Else see resident documentation as noted. Subjective Patient seen and evaluated at bedside this morning. He noted a small amount of dark yellot to brownish fluid at the end of his dialysis cath that he has never seen before. Patient denies CP, SOB, abdominal pain, nausea, vomiting, lightheadedness, dizziness, and diarrhea. Review of Systems Review of Systems: See HPI Physical Exam Physical Exam: Constitutional: well-appearing, no acute distress CV: regular rhythm, no murmur appreciated, extremities well-perfused, no LE edema Resp: CTABL, no wheezes/rales/rhonchi appreciated, no increased work of breathing GI: soft, nondistended, nontender, BS normoactive Skin: growth under tip of nose appreciated Neuro: alert, oriented, no focal neurologic deficit appreciated Results & Data Results & Data Vital Signs (Past 12 Hours) Vital Signs Temp Pulse Pulse Resp BP Pulse Ox O2 Del Method 12/05/22 07:19 76 16 97 Room Air 12/04/22 20:40 36.8 C 87 20 133/76 93 Room Air Resident Activity Tracking Resident Involvement: Resident Care Provided Care Provided: Adult Hospital Medicine (3) COPD (chronic obstructive pulmonary disease) COPD type: unspecified COPD Qualified Code(s): J44.9 - Chronic obstructive pulmonary disease, unspecified
--- NOTE | 2022-12-05 14:12 | Nephrology Progress Note ---
Date of Service December 05, 2022 Assessment & Plan (1) ESRD on dialysis: (2) Secondary hyperparathyroidism: (3) Anemia: (4) AMS (altered mental status): (5) Confusion: Plan 72 year-old gentlemen with ESRD secondary to polycystic kidney disease, on HD via rt IJ TDC. ( was on CCPD, waiting for PD catheter to be remover). . Admitted to the hospital confused, taking his medications wrong, very weak, fall at home while he was doing his peritoneal dialysis. Had TDC on 11/19/22 and transition to HD due to difficulty continuing with PD with ongoing confusion and fall. waiting on PD catheter removal once vascular surgeon is available. has been tolerating hemodialysis, volume status improved with UF challenge. Currently waiting for long-term care facility placement with availability of transportation to dialysis center. The. -- plan for dialysis Wednesday, eventually will need AV fistula placement and PD catheter removal as an outpatient. --left arm nephrology precaution, continue on renal diet, dose medications for GFR less than 10 --continue phosphate binder with meal Will follow Admission and Anticipated Discharge Date Admission Date: November 18, 2022 Abraham Laird was seen and evaluated this morning. Overall he is feeling well, denies any symptoms/concerns, no confusion, electrolyte acceptable. BP slightly elevated, usually improves with UF. Review of Systems Review of Systems: detailed review of system was otherwise unremarkable. Physical Exam Constitutional: WD/WN, vitals as above no acute distress Eyes: + anicteric sclerae Neck: normal visual inspection Respiratory: no respiratory distress Auscultation: lungs clear to auscult ation bilaterally Cardiovascular: Rate/Rhythm: regular rate and regular rhythm Heart Sounds: normal S1 and normal S2 Extremities: + vascular access device (left IJ TDC.); no edema Musculoskeletal: Extremities: extremities normal to inspection Skin: no rashes, warm and dry Neurologic: no focal motor deficits Psychiatric: Orientation: alert and oriented x 3 Affect: euthymic affect Results & Data Vital Signs (Past 12 Hours) Vital Signs Temp Pulse Pulse Resp BP Pulse Ox O2 Del Method 12/05/22 07:51 36.6 C 79 17 164/73 H 95 Room Air 12/05/22 07:19 76 16 97 Room Air PG Care Time/CCT Total # of Minutes Spent Total Time Spent with Patient: Total time spent is greater than 50% in coordination of care (as documented) at patient's floor/unit and/or counseling patient: Coding Level of Care Code 35518 SUB INP/OBS CARE MIN Diagnoses ESRD on dialysis N18.6; Z99.2 Secondary hyperparathyroidism N25.81 Anemia D64.9 Anemia type: unspecified type AMS (altered mental status) R41.82 Confusion R41.0 (3) Anemia Anemia type: unspecified type Qualified Code(s): D64.9 - Anemia, unspecified
[2022-12-05] MEDS: QUEtiapine FUMARATE 25 MG TABLET PO SCH (19:40)
[2022-12-06 06:18] LABS: Basophils # (auto) 0.17 K/uL (0-0.2); Basophils % (auto) 2.2 %; Eosinophils # (auto) 0.72 K/uL (0-0.50); Eosinophils % (auto) 9.1 %; Hematocrit (blood only) 29.2 % (42.0-52.0); Hemoglobin 9.3 g/dl (14.0-18.0); Immature Granulocytes # (auto) 0.09 K/uL (0.01-0.20); Immature Granulocytes % (auto) 1.1 %; Lymphocytes # (auto) 1.23 K/uL (1.2-3.4); Lymphocytes % (auto) 15.6 %; Mean Corpuscular Hemoglobin 30.3 pg (25.0-34.0); Mean Corpuscular Hgb Conc 31.8 g/dL (32.0-36.0); Mean Corpuscular Volume 95.1 fL (80.0-100.0); Mean Platelet Volume 9.8 fL (9.4-12.4); Monocytes # (auto) 0.98 K/uL (0.11-0.59); Monocytes % (auto) 12.4 %; Neutrophils % (auto) 59.6 %; Platelet Count 270 K/uL (130-400); RDW Coefficient of Variation 18.4 % (11.5-14.5); RDW Standard Deviation 63.7 fL (36.4-46.3); Red Blood Count 3.07 M/uL (4.70-6.10); White Blood Count 7.89 K/ul (4.8-10.8)
[2022-12-06 06:41] LABS: BUN Creatinine Ratio 5.4 (10-20); Calcium 9.8 mg/dl (8.6-10.3); Creatinine Clr Calc Pharmacy 9.6 ml/min; Est GFR (African American) 7.9 ml/min; Est GFR (Non-African American) 6.8 ml/min; Potassium 5.2 mmol/L (3.5-5.1)
[2022-12-06] MEDS: ALBUT/IPRATROP 3MG/0.5MG NEB 3 ML VIAL INH SCH ×2 (07:33→19:12)
[2022-12-06] MEDS: AMIODARONE 200 MG TAB PO SCH (08:30)
[2022-12-06] MEDS: amLODIPine BESYLATE 5 MG TAB PO SCH (08:30)
[2022-12-06] MEDS: THIAMINE HCL 100 MG TAB PO SCH (08:30)
[2022-12-06] MEDS: UMECLIDINIUM/VILANTEROL 62.5/25MCG 7 PUFFS/INHALER INH SCH (08:30)
[2022-12-06] MEDS: CINACALCET HCL 30 MG TAB PO SCH ×2 (08:30→19:25)
[2022-12-06] MEDS: CALCITRIOL 0.25 MCG CAPSULE PO SCH (08:32)
[2022-12-06] MEDS: NEPHROCAPS PO SCH (08:32)
[2022-12-06] MEDS: DIVALPROEX DELAY RELEASE 500 MG TAB PO SCH (08:32)
[2022-12-06] MEDS: LORATADINE 10 MG TAB PO SCH (08:32)
[2022-12-06] MEDS: CALCIUM CARBONATE 500 MG CHEWABLE TAB PO SCH ×3 (08:33→17:20)
[2022-12-06] MEDS: SEVELAMER HCL 800 MG TABLET PO SCH ×3 (08:33→17:20)
[2022-12-06] MEDS: DOCUSATE SODIUM 100 MG CAP PO SCH ×2 (08:34→19:27)
[2022-12-06] MEDS: ACETAMINOPHEN 325 MG TAB PO SCH ×2 (08:34→19:26)
[2022-12-06] MEDS: EUCERIN CR 120 GM JAR EXT SCH ×2 (08:35→19:24)
[2022-12-06] MEDS: HEPARIN SOD 5,000 UNIT/0.5 ML VIAL SQ SCH ×2 (08:36→19:27)
[2022-12-06] MEDS: TRIAMCINOLONE ACET 0.1% OINT 80 GM TUBE EXT SCH ×2 (08:36→19:25)
[2022-12-06] MEDS: POLYETHYLENE (MIRALAX) 17 GM PACK PO SCH ×2 (08:37→19:27)
[2022-12-06] MEDS: guaiFENesin 600 MG TABCR PO SCH ×2 (08:37→19:26)
[2022-12-06] MEDS ORDERED: SODIUM ZIRCONIUM CYCLOSILICATE 10 GM PACKET PO STA (10:11)
--- NOTE | 2022-12-06 10:23 | Hospitalist Progress Note ---
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 ESRD - HD placed this admission. Uremia and HAGMA resolved. - Unsafe to resume PD at home at this time. May consider in near future pending progress and re-evaluations of mental status - s/p Venofer, phosphate binder ongoing - [facility] for outpatient dialysis upon discharge - Reached out to nephrology about patient reporting fluid at end of dialysis cath 12/05. Nephrology aware, not a concern. Weakness, ambulatory dysfunction, metabolic encephalopathy - Presented with confusion and weakness ongoing over several days with a fall; also took extra doses of home medications (in this state) prior to coming in - Suspect largely secondary to acidemia and uremia. Infectious and metabolic work-up otherwise negative on admission. - Metabolic encephalopathy resolved with initiation of HD - Disposition plans pending rehab/outpatient dialysis. Appreciate CM support and assistance with dispo planning. Paroxysmal atrial fibrillation - Not on anticoagulation. Hx of ICH. Will defer to outpatient cardiology. Abdominal ascites, trace - Noted on abd US. Chronic, had hx of peritoneal drain in past. Prior peritoneal dialysis. HTN - Continue home amlodipine 2.5 mg Hypervolemia -Subjective generalized edema admission and cxr w/ mild pulmonary edema Wrist pain - Most likely tendonitis or tenosynovitis - Ordered wrist splint for patient to use COPD - Continue home regimen Insomnia - melatonin 15 mg HS PRN Diet: HH/dialysis renal DVT ppx: SQ heparin Code: full Dispo: med surg, pending placement (2) Acute respiratory failure with hypoxia: (3) COPD (chronic obstructive pulmonary disease): (4) HTN (hypertension): Admission and Anticipated Discharge Date Admission Date: November 18, 2022 Supervising Physician Co-Signing Physician Notes Attending attestation Pt seen and examined in concert with Dr. Wright. In agreement with the documented findings as noted in the resident documentation with any exceptions or additions as noted here. No acute complaints. On examination, S1/S2 nl RRR no MCG. CTAB. Abd NT/ND BS+ve Weakness, ambulatory dysfunction - PT/OT consult - continue participation and placement to rehab facility ESRD on HD, h/o PD - nephrology consult - HD as scheduled and for resumption of outpatient regimen on discharge Pruritis - continue hydroxyzine and consider daytime dose if somnolence is not too big of a barrier Else see resident documentation as noted. Subjective No complaints. Eating breakfast. No f/c, lightheadedness, cp, sob, abd pain, urinary symptoms. States dialysis will be tomorrow. Review of Systems Review of Systems: All systems reviewed & are unremarkable except as noted in HPI & below Physical Exam Physical Exam: General: Grossly A&O. NAD. Cooperative. HEENT: Atraumatic, normocephalic. Pulm: CTAB. -wheezes, -rales, -rhonchi. No accessory muscle us. Cardiac: RRR, -mrg. 1+ edema on R. states BLe much improved. Abdominal: Nontender, nondistended, soft. Inte catheter sites on upper chest and abd w/o surrouncding erythema outside of the c/d/i bandage Results & Data Results & Data Vital Signs (Past 12 Hours) Vital Signs Temp Pulse Resp BP Pulse Ox O2 Del Method 12/06/22 09:05 76 94 Room Air 12/06/22 07:10 36.4 C L 78 18 170/86 H 93 Room Air 12/06/22 07:35 88 18 91 Room Air Resident Activity Tracking Resident Involvement: Resident Care Provided Care Provided: Adult Hospital Medicine (3) COPD (chronic obstructive pulmonary disease) COPD type: unspecified COPD Qualified Code(s): J44.9 - Chronic obstructive pulmonary disease, unspecified (4) HTN (hypertension) Hypertension type: unspecified Qualified Code(s): I10 - Essential (primary) hypertension
--- NOTE | 2022-12-06 12:48 | Nephrology Progress Note ---
Date of Service December 06, 2022 Assessment & Plan (1) ESRD on dialysis: (2) Secondary hyperparathyroidism: (3) Anemia: (4) AMS (altered mental status): (5) Confusion: Plan 72 year-old gentlemen with ESRD secondary to polycystic kidney disease, on HD via rt IJ TDC. ( was on CCPD, waiting for PD catheter to be remover). . Admitted to the hospital confused, taking his medications wrong, very weak, fall at home while he was doing his peritoneal dialysis. Had TDC on 11/19/22 and transition to HD due to difficulty continuing with PD with ongoing confusion and fall. waiting on PD catheter removal once vascular surgeon is available. has been tolerating hemodialysis, volume status improved with UF challenge. Currently waiting for long-term care facility placement with availability of transportation to dialysis center. Overall clinically stable, waiting on placement. --dialysis tomorrow, eventually will need AV fistula placement and PD catheter removal as an outpatient. --left arm nephrology precaution, continue on renal diet, dose medications for GFR less than 10 --continue phosphate binder with meal --PATRICK [id number] units with HD tomorrow Will follow Admission and Anticipated Discharge Date Admission Date: November 18, 2022 Review of Systems Review of Systems: detailed review of system was otherwise unremarkable. Physical Exam Constitutional: WD/WN, vitals as above no acute distress Eyes: + anicteric sclerae Neck: normal visual inspection Respiratory: no respiratory distress Auscultation: lungs clear to auscultation bilaterally Cardiovascular: Rate/Rhythm: regular rate and regular rhythm Heart Sounds: normal S1 and normal S2 Extremities: + vascular access device (left IJ TDC.); no edema Gastrointestinal (Abdomen): Inspection/Auscultation: abdomen normal to inspection Percussion/Palpation: abdomen soft; abdomen nontender PD catheter in place Musculoskeletal: Extremities: extremities normal to inspection Skin: no rashes, warm and dry Neurologic: no focal motor deficits Psychiatric: Orientation: alert and oriented x 3 Affect: euthymic affect Results & Data Vital Signs (Past 12 Hours) Vital Signs Temp Pulse Resp BP Pulse Ox O2 Del Method 12/06/22 09:05 76 94 Room Air 12/06/22 07:10 36.4 C L 78 18 170/86 H 93 Room Air 12/06/22 07:35 88 18 91 Room Air PG Care Time/CCT Total # of Minutes Spent Total Time Spent with Patient: Total time spent is greater than 50% in coordination of care (as documented) at patient's floor/unit and/or counseling patient: Coding Level of Care Code 76235 SUB INP/OBS CARE 2MIN Diagnoses ESRD on dialysis N18.6; Z99.2 Secondary hyperparathyroidism N25.81 Anemia D64.9 Anemia type: unspecified type AMS (altered mental status) R41.82 Confusion R41.0 (3) Anemia Anemia type: unspecified type Qualified Code(s): D64.9 - Anemia, unspecified
[2022-12-06] MEDS: QUEtiapine FUMARATE 25 MG TABLET PO SCH (19:26)
[2022-12-07] MEDS: ALBUT/IPRATROP 3MG/0.5MG NEB 3 ML VIAL INH SCH ×2 (07:17→19:21)
[2022-12-07 07:45] LABS: Basophils # (auto) 0.17 K/uL (0-0.2); Basophils % (auto) 1.9 %; Eosinophils # (auto) 0.67 K/uL (0-0.50); Eosinophils % (auto) 7.3 %; Hematocrit (blood only) 31.4 % (42.0-52.0); Immature Granulocytes # (auto) 0.09 K/uL (0.01-0.20); Lymphocytes % (auto) 8.7 %; Mean Corpuscular Hemoglobin 30.4 pg (25.0-34.0); Mean Corpuscular Hgb Conc 31.8 g/dL (32.0-36.0); Mean Corpuscular Volume 95.4 fL (80.0-100.0); Mean Platelet Volume 10.1 fL (9.4-12.4); Monocytes # (auto) 0.95 K/uL (0.11-0.59); Monocytes % (auto) 10.4 %; Neutrophils # (auto) 6.47 K/uL (1.40-6.50); Neutrophils % (auto) 70.7 %; Platelet Count 297 K/uL (130-400); RDW Coefficient of Variation 18.5 % (11.5-14.5); RDW Standard Deviation 63.7 fL (36.4-46.3); Red Blood Count 3.29 M/uL (4.70-6.10); White Blood Count 9.15 K/ul (4.8-10.8)
[2022-12-07 08:09] LABS: Albumin Globulin Ratio 1.4 (0.9-2); Albumin Level 3.5 gm/dl (3.4-5.0); BUN Creatinine Ratio 6.5 (10-20); Bilirubin,Total 0.4 mg/dl (0.2-1.0); Calcium 9.8 mg/dl (8.6-10.3); Creatinine Clr Calc Pharmacy 7.7 ml/min; Est GFR (African American) 6.1 ml/min; Est GFR (Non-African American) 5.2 ml/min; Globulin 2.5 gm/dl (2.5-4.0); Magnesium 2.2 mg/dl (1.7-2.4); Potassium 5.5 mmol/L (3.5-5.1)
--- NOTE | 2022-12-07 08:10 | Hospitalist Progress Note ---
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 ESRD - HD placed this admission. Uremia and HAGMA resolved. - Unsafe to resume PD at home at this time. May consider in near future pending progress and re-evaluations of mental status - s/p Venofer, phosphate binder ongoing - [facility] for outpatient dialysis upon discharge - Unfortunately today HD failed, vascular surgery is unavailable until December 28 and interventional radiology, general surgery unable to assist. - Per nephrology, patient will need transfer. Call placed to [facility], awaiting return call from hospitalist - Repeat K 5.7 this afternoon - Called and updated plan with patient's daughter Weakness, ambulatory dysfunction, metabolic encephalopathy - Presented with confusion and weakness ongoing over several days with a fall; also took extra doses of home medications (in this state) prior to coming in - Suspect largely secondary to acidemia and uremia. Infectious and metabolic work-up otherwise negative on admission. - Metabolic encephalopathy resolved with initiation of HD Paroxysmal atrial fibrillation - Not on anticoagulation. Hx of ICH. Will defer to outpatient cardiology. Abdominal ascites, trace - Noted on abd US. Chronic, had hx of peritoneal drain in past. Prior peritoneal dialysis. HTN - Continue home amlodipine 2.5 mg Hypervolemia -Subjective generalized edema admission and cxr w/ mild pulmonary edema Wrist pain - Most likely tendonitis or tenosynovitis - Ordered wrist splint for patient to use COPD - Continue home regimen Insomnia - melatonin 15 mg HS PRN Diet: HH/dialysis renal DVT ppx: SQ heparin Code: full Dispo: med surg, pending placement (2) Acute respiratory failure with hypoxia: (3) COPD (chronic obstructive pulmonary disease): (4) HTN (hypertension): Admission and Anticipated Discharge Date Admission Date: November 18, 2022 Supervising Physician Co-Signing Physician Notes I personally examined the patient and verified all reyes points of history and exam, discussed case, and agree with decision making with Dr Hand feeling ok. bored. later updated that HD access went bad - d/w IR, surgery - no ability to get anything other than emergency access here. dr hand d/w family - prefer tx to [facility] (as was also rec'd by nephrology) vitals noted nad heent nc at mmm breathing unlabored no accessory muscles good effort skin no rashes no pallor or icterus neuro no focal deficits Weakness, ambulatory dysfunction - PT/OT consult - continue participation and placement to rehab facility ESRD on HD, h/o PD - HD access failed - hyperkalemia - can't get access here - transfer. additional patiromer given Pruritis - continue hydroxyzine and consider daytime dose if somnolence is not too big of a barrier otherwise as above Subjective 12/07: Patient seen and examined at bedside. No overnight events. Patient notes some increased swelling in his right ankle. Denies shortness of breath or chest pain. Patient went to dialysis this afternoon but session was not completed due to failure of CVC. Review of Systems Review of Systems: As per above Physical Exam Constitutional: WD/WN, vitals as above Eyes: Anicteric sclerae ENMT: External ears and nose normal, moist mucous membranes Respiratory: normal respiratory effort, lungs clear to auscultation Cardiovascular: Rate/Rhythm: regular rate and regular rhythm +1 lower extremity edema bilaterally, R>L Skin: no rashes, warm and dry Psychiatric: A+Ox3, euthymic affect Results & Data Results & Data Vital Signs (Past 12 Hours) Vital Signs Temp Pulse Pulse Resp BP Pulse Ox O2 Del Method 12/07/22 07:06 36.4 C 79 16 176/75 H 97 Room Air 12/07/22 07:18 80 18 96 Room Air 12/06/22 22:00 36.6 C 79 20 158/79 H 95 Room Air Resident Activity Tracking Resident Involvement: Resident Care Provided Care Provided: Adult Hospital Medicine (3) COPD (chronic obstructive pulmonary disease) COPD type: unspecified COPD Qualified Code(s): J44.9 - Chronic obstructive pulmonary disease, unspecified (4) HTN (hypertension) Hypertension type: unspecified Qualified Code(s): I10 - Essential (primary) hypertension
[2022-12-07] MEDS: amLODIPine BESYLATE 5 MG TAB PO SCH (08:49)
[2022-12-07] MEDS: DIVALPROEX DELAY RELEASE 500 MG TAB PO SCH (08:49)
[2022-12-07] MEDS: THIAMINE HCL 100 MG TAB PO SCH (08:49)
[2022-12-07] MEDS: NEPHROCAPS PO SCH (08:50)
[2022-12-07] MEDS: CALCITRIOL 0.25 MCG CAPSULE PO SCH (08:51)
[2022-12-07] MEDS: DOCUSATE SODIUM 100 MG CAP PO SCH ×2 (08:51→21:07)
[2022-12-07] MEDS: HEPARIN SOD 5,000 UNIT/0.5 ML VIAL SQ SCH ×2 (08:51→21:06)
[2022-12-07] MEDS: guaiFENesin 600 MG TABCR PO SCH ×2 (08:52→21:07)
[2022-12-07] MEDS: SEVELAMER HCL 800 MG TABLET PO SCH ×3 (08:53→16:55)
[2022-12-07] MEDS: CALCIUM CARBONATE 500 MG CHEWABLE TAB PO SCH ×3 (08:53→16:55)
[2022-12-07] MEDS: AMIODARONE 200 MG TAB PO SCH (08:53)
[2022-12-07] MEDS: CINACALCET HCL 30 MG TAB PO SCH ×2 (08:53→21:08)
[2022-12-07] MEDS: ACETAMINOPHEN 325 MG TAB PO SCH ×2 (08:54→21:09)
[2022-12-07] MEDS: TRIAMCINOLONE ACET 0.1% OINT 80 GM TUBE EXT SCH ×2 (08:57→21:03)
[2022-12-07] MEDS: EUCERIN CR 120 GM JAR EXT SCH ×2 (08:57→21:02)
[2022-12-07] MEDS: POLYETHYLENE (MIRALAX) 17 GM PACK PO SCH ×2 (08:58→21:11)
[2022-12-07] MEDS: UMECLIDINIUM/VILANTEROL 62.5/25MCG 7 PUFFS/INHALER INH SCH (08:58)
[2022-12-07] MEDS ORDERED: EPOETIN ALFA 10,000 UNITS/ML VIAL IV ONE (09:00)
--- NOTE | 2022-12-07 10:35 | Nephrology Progress Note ---
Date of Service December 07, 2022 Assessment & Plan (1) ESRD on dialysis: (2) Secondary hyperparathyroidism: (3) Anemia: (4) AMS (altered mental status): (5) Confusion: Plan 72 year-old gentlemen with ESRD secondary to polycystic kidney disease, on HD via rt IJ TDC. ( was on CCPD, waiting for PD catheter to be remover). Admitted to the hospital confused, taking his medications wrong, very weak, fall at home while he was doing his peritoneal dialysis. Had TDC on 11/19/22 and transition to HD due to difficulty continuing with PD with ongoing confusion and fall. waiting on PD catheter removal once vascular surgeon is available. has been tolerating hemodialysis, volume status improved with UF challenge. Currently waiting for long-term care facility placement with availability of transportation to dialysis center. Overall clinically stable, waiting on placement. Potassium was 5.5. --dialysis This afternoon with 2 K bath, aim for UF 3 L as tolerated and challenge weight, eventually will need AV fistula placement and PD catheter removal as an outpatient. spoke with vascular surgery this morning and plan to keep him on schedule for AV fistula and removal of PD catheter in mid December the. --left arm nephrology precaution, continue on renal diet, dose medications for GFR less than 10 --continue phosphate binder with meal, low-potassium diet. --PATRICK [id number] units with HD tomorrow Will follow Admission and Anticipated Discharge Date Admission Date: November 18, 2022 Abraham Laird was seen and evaluated this morning. Overall he is feeling well, denies any symptoms/concerns, no confusion. potassium high at 5.5 despite getting 1 dose of locale my yesterday. BP slightly elevated, usually improves with UF. Review of Systems Review of Systems: detailed review of system was otherwise unremarkable. Physical Exam Constitutional: WD/WN, vitals as above no acute distress Eyes: + anicteric sclerae Neck: normal visual inspection Respiratory: no respiratory distress Auscultation: lungs clear to auscultation bilaterally Cardiovascular: Rate/Rhythm: regular rate and regular rhythm Heart Sounds: normal S1 and normal S2 Extremities: + edema and + vascular access device (left IJ TDC.) Gastrointestinal (Abdomen): Inspection/Auscultation: abdomen normal to inspection Percussion/Palpation: abdomen soft; abdomen nontender PD catheter in place Musculoskeletal: Extremities: extremities normal to inspection Skin: no rashes, warm and dry Neurologic: no focal motor deficits Psychiatric: Orientation: alert and oriented x 3 Affect: euthymic affect Results & Data Vital Signs (Past 12 Hours) Vital Signs Temp Pulse Resp BP Pulse Ox O2 Del Method 12/07/22 07:06 36.4 C 79 16 176/75 H 97 Room Air 12/07/22 07:18 80 18 96 Room Air PG Care Time/CCT Total # of Minutes Spent Total Time Spent with Patient: Total time spent is greater than 50% in coordination of care (as documented) at patient's floor/unit and/or counseling patient: Coding Level of Care Code 76757 SUB INP/OBS CARE 2/35MIN Diagnoses ESRD on dialysis N18.6; Z99.2 Secondary hyperparathyroidism N25.81 Anemia D64.9 Anemia type: unspecified type AMS (altered mental status) R41.82 Confusion R41.0 (3) Anemia Anemia type: unspecified type Qualified Code(s): D64.9 - Anemia, unspecified
[2022-12-07 16:50] LABS: BUN Creatinine Ratio 6.5 (10-20); Calcium 9.7 mg/dl (8.6-10.3); Creatinine Clr Calc Pharmacy 7.6 ml/min; Est GFR (African American) 5.9 ml/min; Est GFR (Non-African American) 5.1 ml/min; Potassium 5.7 mmol/L (3.5-5.1)
--- NOTE | 2022-12-07 19:02 | Billing Data ---
Date of Service December 07, 2022 Coding Level of Care Code 08475 IN/OBS DISCH 30 MIN/LESS
[2022-12-07] MEDS ORDERED: PATIROMER CALCIUM SORBITEX 8.4 GM PACK PO ONE (19:15)
[2022-12-07] MEDS: MELATONIN 3 MG TAB PO PRN (21:03)
[2022-12-07] MEDS: QUEtiapine FUMARATE 25 MG TABLET PO SCH (21:09)
[2022-12-08] MEDS: ALBUT/IPRATROP 3MG/0.5MG NEB 3 ML VIAL INH SCH ×2 (07:32→19:34)
--- NOTE | 2022-12-08 07:44 | Hospitalist Progress Note ---
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 ESRD - HD placed this admission. Uremia and HAGMA resolved. - Unsafe to resume PD at home at this time. May consider in near future pending progress and re-evaluations of mental status - s/p Venofer, phosphate binder ongoing - [facility] for outpatient dialysis upon discharge - HD failed yesterday and planning towards transfer, however repeat dialysis session today successful so transfer so longer needed. -K today 5.8 (pre-dialysis) -Repeat BMP tomorrow a.m. Weakness, ambulatory dysfunction, metabolic encephalopathy - Presented with confusion and weakness ongoing over several days with a fall; also took extra doses of home medications (in this state) prior to coming in - Suspect largely secondary to acidemia and uremia. Infectious and metabolic work-up otherwise negative on admission. - Metabolic encephalopathy resolved with initiation of HD Paroxysmal atrial fibrillation - Not on anticoagulation. Hx of ICH. Will defer to outpatient cardiology. Abdominal ascites, trace - Noted on abd US. Chronic, had hx of peritoneal drain in past. Prior peritoneal dialysis. HTN - Continue home amlodipine 2.5 mg Hypervolemia -Subjective generalized edema admission and cxr w/ mild pulmonary edema Wrist pain - Most likely tendonitis or tenosynovitis - Ordered wrist splint for patient to use COPD - Continue home regimen Insomnia - melatonin 15 mg HS PRN Diet: HH/dialysis renal DVT ppx: SQ heparin Code: full Dispo: med surg, pending placement (2) Acute respiratory failure with hypoxia: (3) COPD (chronic obstructive pulmonary disease): (4) HTN (hypertension): Admission and Anticipated Discharge Date Admission Date: November 18, 2022 Supervising Physician Co-Signing Physician Notes I personally examined the patient and verified all reyes points of history and exam, discussed case, and agree with decision making with Dr Rashid Dialysis nurse was able to get dialysis catheter working again, and he is actually been doing quite well on dialysis. After discussion with dialysis nurse who also discussed with nephrology, fortunately the need for transfer for dialysis access was abated vitals noted nad resting during dialysis heent nc at mmm breathing unlabored no accessory muscles good effort skin no rashes no pallor or icterus neuro no focal deficits Weakness, ambulatory dysfunction - PT/OT consult - continue participation and placement to SNF ESRD on HD, h/o PD - HD access failed - hyperkalemia -additional procurement was given, but now is tolerating dialysis againno need for transfer, current access working. Pruritis - continue hydroxyzine and consider daytime dose if somnolence is not too big of a barrier otherwise as above Subjective 12/08: Patient seen and examined at bedside. No acute events overnight. Patient complains of swelling in both lower legs as well as an itchy back. Denies chest pain or shortness of breath. Review of Systems Review of Systems: As per above Physical Exam Constitutional: WD/WN, vitals as above Eyes: Anicteric sclerae ENMT: External ears and nose normal. Moist mucous membranes Respiratory: normal respiratory effort, lungs clear to auscultation Cardiovascular: Rate/Rhythm: regular rate and regular rhythm Skin: no rashes, warm and dry Psychiatric: A+Ox3, euthymic affect Results & Data Results & Data Vital Signs (Past 12 Hours) Vital Signs Temp Pulse Resp BP Pulse Ox O2 Del Method 12/08/22 07:32 80 18 94 Room Air 12/07/22 20:47 36.9 C 84 16 155/79 H 95 Room Air Resident Activity Tracking Resident Involvement: Resident Care Provided Care Provided: Adult Hospital Medicine (3) COPD (chronic obstructive pulmonary disease) COPD type: unspecified COPD Qualified Code(s): J44.9 - Chronic obstructive pulmonary disease, unspecified (4) HTN (hypertension) Hypertension type: unspecified Qualified Code(s): I10 - Essential (primary) hypertension
[2022-12-08 07:47] LABS: BUN Creatinine Ratio 6.6 (10-20); Calcium 10.2 mg/dl (8.6-10.3); Est GFR (African American) 5.4 ml/min; Est GFR (Non-African American) 4.7 ml/min; Potassium 5.8 mmol/L (3.5-5.1)
[2022-12-08 07:50] LABS: Hematocrit (blood only) 29.6 % (42.0-52.0); Hemoglobin 9.5 g/dl (14.0-18.0); Mean Corpuscular Hemoglobin 30.5 pg (25.0-34.0); Mean Corpuscular Hgb Conc 32.1 g/dL (32.0-36.0); Mean Corpuscular Volume 95.2 fL (80.0-100.0); Mean Platelet Volume 9.8 fL (9.4-12.4); Platelet Count 284 K/uL (130-400); RDW Coefficient of Variation 18.5 % (11.5-14.5); RDW Standard Deviation 64.6 fL (36.4-46.3); Red Blood Count 3.11 M/uL (4.70-6.10); White Blood Count 7.87 K/ul (4.8-10.8)
[2022-12-08] MEDS ORDERED: PATIROMER CALCIUM SORBITEX 8.4 GM PACK PO STA (08:31)
--- NOTE | 2022-12-08 09:07 | Billing Data ---
Date of Service December 07, 2022 Coding Level of Care Code 56724 SUB INP/OBS CARE 3/50MIN Comment disregard 12/07 <30min dc
[2022-12-08] MEDS ORDERED: ALTEPLASE, RECOMBINANT 1 MG/ML 2ML VIAL INSTIL ONE ×2 (09:09→09:11)
[2022-12-08] MEDS: HEPARIN SOD 5,000 UNIT/0.5 ML VIAL SQ SCH ×2 (09:24→21:53)
[2022-12-08] MEDS: DOCUSATE SODIUM 100 MG CAP PO SCH ×2 (09:29→21:48)
[2022-12-08] MEDS: POLYETHYLENE (MIRALAX) 17 GM PACK PO SCH ×2 (09:30→21:53)
[2022-12-08] MEDS: CALCIUM CARBONATE 500 MG CHEWABLE TAB PO SCH ×3 (09:31→18:07)
[2022-12-08] MEDS: SEVELAMER HCL 800 MG TABLET PO SCH ×3 (09:31→18:07)
[2022-12-08] MEDS: LORATADINE 10 MG TAB PO SCH (09:32)
[2022-12-08] MEDS: THIAMINE HCL 100 MG TAB PO SCH (09:32)
[2022-12-08] MEDS: AMIODARONE 200 MG TAB PO SCH (09:33)
[2022-12-08] MEDS: guaiFENesin 600 MG TABCR PO SCH ×2 (09:33→21:48)
[2022-12-08] MEDS: CALCITRIOL 0.25 MCG CAPSULE PO SCH (09:33)
[2022-12-08] MEDS: DIVALPROEX DELAY RELEASE 500 MG TAB PO SCH (09:33)
[2022-12-08] MEDS: NEPHROCAPS PO SCH (09:34)
[2022-12-08] MEDS: CINACALCET HCL 30 MG TAB PO SCH ×2 (09:34→21:50)
[2022-12-08] MEDS: ACETAMINOPHEN 325 MG TAB PO SCH ×2 (09:35→21:50)
[2022-12-08] MEDS: UMECLIDINIUM/VILANTEROL 62.5/25MCG 7 PUFFS/INHALER INH SCH (09:36)
[2022-12-08] MEDS ORDERED: SODIUM CHLORIDE 0.9% 1000ML 1,000 ML IV PRN (10:22)
--- NOTE | 2022-12-08 15:51 | Nephrology Progress Note ---
Date of Service December 08, 2022 Assessment & Plan (1) ESRD on dialysis: (2) Secondary hyperparathyroidism: (3) Anemia: (4) AMS (altered mental status): (5) Confusion: Plan 72 year-old gentlemen with ESRD secondary to polycystic kidney disease, on HD via rt IJ TDC. ( was on CCPD, waiting for PD catheter to be remover). Admitted to the hospital confused, taking his medications wrong, very weak, fall at home while he was doing his peritoneal dialysis. Had TDC on 11/19/22 and transition to HD due to difficulty continuing with PD with ongoing confusion and fall. waiting on PD catheter removal once vascular surgeon is available. has been tolerating hemodialysis, volume status improved with UF challenge. Currently waiting for long-term care facility placement with availability of transportation to dialysis center. Overall clinically stable, waiting on placement. Potassium was 5.8. --dialysis today with 2 K bath, aim for UF 3 L as tolerated and challenge weight, eventually will need AV fistula placement and PD catheter removal as an outpatient. spoke with vascular surgery this morning and plan to keep him on schedule for AV fistula and removal of PD catheter in mid December the. --left arm nephrology precaution, continue on renal diet, dose medications for GFR less than 10 --continue phosphate binder with meal, low-potassium diet. -- plan for dialysis again tomorrow as his regular schedule. Will follow Admission and Anticipated Discharge Date Admission Date: November 18, 2022 Subjective Karley was seen this morning, he denied any shortness of breath or chest pain but was concerned with abdominal distension, worsening lower extremity edema and overall weight gain. Potassium worsened to 5.8 this morning. Well where waiting for transfer to [facility] as tunneled dialysis catheter did not work yesterday after multiple dry, decided to give it another try and fortunately this time for dialysis catheter worked. Review of Systems Review of Systems: detailed review of system was otherwise unremarkable. Physical Exam Constitutional: WD/WN, vitals as above no acute distress Eyes: + anicteric sclerae Neck: normal visual inspection Respiratory: no respiratory distress Auscultation: lungs clear to auscultation bilaterally Cardiovascular: Rate/Rhythm: regular rate and regular rhythm Heart Sounds: normal S1 and normal S2 Extremities: + edema and + vascular access device (left IJ TDC.) Gastrointestinal (Abdomen): Inspection/Auscultation: abdomen normal to inspection Percussion/Palpation: abdomen soft; abdomen nontender PD catheter in place Musculoskeletal: Extremities: extremities normal to inspection Skin: no rashes, warm and dry Neurologic: no focal motor deficits Psychiatric: Orientation: alert and oriented x 3 Affect: euthymic affect Results & Data Vital Signs (Past 12 Hours) Vital Signs Temp Pulse Pulse Pulse Resp BP BP 12/08/22 15:23 36.8 C 74 20 150/72 H 12/08/22 15:02 36.5 C 81 133/72 12/08/22 14:30 82 149/75 H 12/08/22 14:00 85 154/83 H 12/08/22 13:30 72 125/69 12/08/22 12:30 83 104/68 12/08/22 13:00 89 156/87 H 12/08/22 12:00 84 129/67 12/08/22 11:30 86 113/66 12/08/22 11:00 83 154/91 H 12/08/22 10:50 80 170/91 H 12/08/22 10:13 36.5 C 79 12/08/22 08:13 36.3 C L 78 17 176/77 H 12/08/22 07:32 80 18 Pulse Ox O2 Del Method 12/08/22 15:23 95 Room Air 12/08/22 15:02 12/08/22 14:30 12/08/22 14:00 12/08/22 13:30 12/08/22 12:30 12/08/22 13:00 12/08/22 12:00 12/08/22 11:30 12/08/22 11:00 12/08/22 10:50 12/08/22 10:13 12/08/22 08:13 96 Room Air 12/08/22 07:32 94 Room Air PG Care Time/CCT Total # of Minutes Spent Total Time Spent with Patient: Total time spent is greater than 50% in coordination of care (as documented) at patient's floor/unit and/or counseling patient: Coding Level of Care Code 76521 SUB INP/OBS CARE 3/50MIN Diagnoses ESRD on dialysis N18.6; Z99.2 Secondary hyperparathyroidism N25.81 Anemia D64.9 Anemia type: unspecified type AMS (altered mental status) R41.82 Confusion R41.0 (3) Anemia Anemia type: unspecified type Qualified Code(s): D64.9 - Anemia, unspecified
[2022-12-08] MEDS: amLODIPine BESYLATE 5 MG TAB PO SCH (15:56)
[2022-12-08] MEDS: EUCERIN CR 120 GM JAR EXT SCH ×2 (16:03→21:47)
[2022-12-08] MEDS: TRIAMCINOLONE ACET 0.1% OINT 80 GM TUBE EXT SCH ×2 (16:04→21:47)
[2022-12-08] MEDS: PATIROMER CALCIUM SORBITEX 8.4 GM PACK PO SCH (16:05)
[2022-12-08 16:57] LABS: BUN Creatinine Ratio 5.1 (10-20); Creatinine Clr Calc Pharmacy 15.3 ml/min; Est GFR (Non-African American) 12.1 ml/min; Magnesium 1.9 mg/dl (1.7-2.4); Phosphorus 3.7 mg/dl (2.5-4.9)
--- NOTE | 2022-12-08 18:57 | Billing Data ---
Date of Service December 08, 2022 Coding Level of Care Code 13555 SUB INP/OBS CARE MIN
[2022-12-08] MEDS: MELATONIN 3 MG TAB PO PRN (21:46)
[2022-12-08] MEDS: QUEtiapine FUMARATE 25 MG TABLET PO SCH (21:49)
[2022-12-09] MEDS: ALBUT/IPRATROP 3MG/0.5MG NEB 3 ML VIAL INH SCH ×2 (06:59→19:11)
[2022-12-09] MEDS: UMECLIDINIUM/VILANTEROL 62.5/25MCG 7 PUFFS/INHALER INH SCH (07:56)
[2022-12-09] MEDS: EUCERIN CR 120 GM JAR EXT SCH ×2 (07:56→19:39)
[2022-12-09] MEDS: CALCIUM CARBONATE 500 MG CHEWABLE TAB PO SCH ×3 (07:57→17:57)
[2022-12-09] MEDS: CALCITRIOL 0.25 MCG CAPSULE PO SCH (07:57)
[2022-12-09] MEDS: DOCUSATE SODIUM 100 MG CAP PO SCH ×2 (07:57→19:41)
[2022-12-09] MEDS: SEVELAMER HCL 800 MG TABLET PO SCH ×3 (07:58→17:57)
[2022-12-09] MEDS: AMIODARONE 200 MG TAB PO SCH (07:58)
[2022-12-09] MEDS: DIVALPROEX DELAY RELEASE 500 MG TAB PO SCH (07:58)
[2022-12-09] MEDS: CINACALCET HCL 30 MG TAB PO SCH ×2 (07:58→19:41)
[2022-12-09] MEDS: HEPARIN SOD 5,000 UNIT/0.5 ML VIAL SQ SCH ×3 (07:59→19:41)
[2022-12-09] MEDS: ACETAMINOPHEN 325 MG TAB PO SCH ×2 (07:59→19:40)
[2022-12-09] MEDS: guaiFENesin 600 MG TABCR PO SCH ×2 (08:00→19:41)
[2022-12-09] MEDS: THIAMINE HCL 100 MG TAB PO SCH (08:00)
[2022-12-09] MEDS: NEPHROCAPS PO SCH (08:00)
[2022-12-09] MEDS: TRIAMCINOLONE ACET 0.1% OINT 80 GM TUBE EXT SCH ×2 (08:01→19:40)
[2022-12-09 08:11] LABS: Hemoglobin 8.9 g/dl (14.0-18.0); Mean Corpuscular Hemoglobin 30.7 pg (25.0-34.0); Mean Corpuscular Hgb Conc 31.8 g/dL (32.0-36.0); Mean Corpuscular Volume 96.6 fL (80.0-100.0); Mean Platelet Volume 10.2 fL (9.4-12.4); Platelet Count 216 K/uL (130-400); RDW Coefficient of Variation 18.6 % (11.5-14.5); RDW Standard Deviation 65.4 fL (36.4-46.3)
[2022-12-09] MEDS: POLYETHYLENE (MIRALAX) 17 GM PACK PO SCH ×2 (08:11→19:39)
[2022-12-09 08:32] LABS: Calcium 9.2 mg/dl (8.6-10.3); Creatinine Clr Calc Pharmacy 11.6 ml/min; Est GFR (African American) 9.9 ml/min; Est GFR (Non-African American) 8.6 ml/min; Phosphorus 5.3 mg/dl (2.5-4.9); Potassium 4.6 mmol/L (3.5-5.1)
--- NOTE | 2022-12-09 08:36 | Hospitalist Progress Note ---
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 ESRD - HD placed this admission. Uremia and HAGMA resolved. - Unsafe to resume PD at home at this time - s/p Venofer, phosphate binder ongoing - [facility] for outpatient dialysis upon discharge - HD failed on Wednesday and was planning towards transfer, however repeat dialysis session yesterday and today was successful so transfer so longer needed. - Per nephrology: planning towards AV fistula and removal of PD catheter in mid December. Weakness, ambulatory dysfunction, metabolic encephalopathy - Presented with confusion and weakness ongoing over several days with a fall; also took extra doses of home medications (in this state) prior to coming in - Suspect largely secondary to acidemia and uremia. Infectious and metabolic work-up otherwise negative on admission. - Metabolic encephalopathy resolved with initiation of HD Paroxysmal atrial fibrillation - Not on anticoagulation. Hx of ICH. Will defer to outpatient cardiology. Abdominal ascites, trace - Noted on abd US. Chronic, had hx of peritoneal drain in past. Prior peritoneal dialysis. HTN - Continue home amlodipine 2.5 mg Hypervolemia -Subjective generalized edema admission and cxr w/ mild pulmonary edema Wrist pain - Most likely tendonitis or tenosynovitis - Ordered wrist splint for patient to use COPD - Continue home regimen Insomnia - melatonin 15 mg HS PRN Diet: HH/dialysis renal DVT ppx: SQ heparin Code: full Dispo: med surg, pending placement (2) Acute respiratory failure with hypoxia: (3) COPD (chronic obstructive pulmonary disease): (4) HTN (hypertension): Admission and Anticipated Discharge Date Admission Date: November 18, 2022 Supervising Physician Co-Signing Physician Notes I personally examined the patient and verified all reyes points of history and exam, discussed case, and agree with decision making with Dr Rashid having HD again no issues. for SNF tomorrow vitals noted nad resting during dialysis heent nc at mmm breathing unlabored no accessory muscles good effort skin no rashes no pallor or icterus neuro no focal deficits Weakness, ambulatory dysfunction - PT/OT consult - continue participation and placement to SNF (tomorrow!) ESRD on HD, h/o PD - continue HD Pruritis - continue hydroxyzine and consider daytime dose if somnolence is not too big of a barrier otherwise as above Subjective 12/09: Patient seen and examined at bedside. No acute events overnight. He is undergoing dialysis this morning, is eating his breakfast without issue. Notes that his abdomen and ankles look less swollen today. Denies chest pain or shortness of breath. Review of Systems Review of Systems: As per above Physical Exam Constitutional: WD/WN, vitals as above ENMT: Moist mucous membranes Respiratory: normal respiratory effort, lungs clear to auscultation Cardiovascular: Rate/Rhythm: regular rate and regular rhythm +1 bilateral lower extremity edema, equal Gastrointestinal (Abdomen): Abdomen soft, mild distention Skin: no rashes, warm and dry Psychiatric: A+Ox3, euthymic affect Results & Data Results & Data Vital Signs (Past 12 Hours) Vital Signs Temp Pulse Pulse Resp BP Pulse Ox O2 Del Method 12/09/22 07:50 36.3 C L 76 18 161/81 H 94 Room Air 12/09/22 07:00 74 19 92 Room Air 12/08/22 21:57 36.8 C 79 16 146/71 H 96 Room Air Resident Activity Tracking Resident Involvement: Resident Care Provided Care Provided: Adult Hospital Medicine (3) COPD (chronic obstructive pulmonary disease) COPD type: unspecified COPD Qualified Code(s): J44.9 - Chronic obstructive pulmonary disease, unspecified (4) HTN (hypertension) Hypertension type: unspecified Qualified Code(s): I10 - Essential (primary) hypertension
[2022-12-09] MEDS: hydrOXYzine HCl 10 MG TAB PO PRN ×2 (08:50→20:15)
--- NOTE | 2022-12-09 12:20 | Nephrology Progress Note ---
Date of Service December 09, 2022 Assessment & Plan (1) ESRD on dialysis: (2) Secondary hyperparathyroidism: (3) Anemia: (4) AMS (altered mental status): (5) Confusion: Plan 72 year-old gentlemen with ESRD secondary to polycystic kidney disease, on HD via rt IJ TDC. ( was on CCPD, waiting for PD catheter to be remover). Admitted to the hospital confused, taking his medications wrong, very weak, fall at home while he was doing his peritoneal dialysis. Had TDC on 11/19/22 and transition to HD due to difficulty continuing with PD with ongoing confusion and fall. waiting on PD catheter removal once vascular surgeon is available. has been tolerating hemodialysis, volume status improved with UF challenge. Currently waiting for long-term care facility placement with availability of transportation to dialysis center. Overall clinically stable, waiting on placement. --dialysis today, UF 3 L as tolerated and challenge weight, eventually will need AV fistula placement and PD catheter removal as an outpatient. spoke with vascular surgery this morning and plan to keep him on schedule for AV fistula and removal of PD catheter in mid December. --left arm nephrology precaution, continue on renal diet, dose medications for GFR less than 10 --continue phosphate binder with meal, low-potassium diet. Will follow Admission and Anticipated Discharge Date Admission Date: November 18, 2022 Abraham Laird was seen this morning during HD, tolerating HD, , he denied any shortness of breath or chest pain, LE edema improved. BP acceptable. Review of Systems Review of Systems: detailed review of system was otherwise unremarkable. Physical Exam Constitutional: WD/WN, vitals as above no acute distress Eyes: + anicteric sclerae Neck: normal visual inspection Respiratory: no respiratory distress Auscultation: lungs clear to auscultation bilaterally Cardiovascular: Rate/Rhythm: regular rate and regular rhythm Heart Sounds: normal S1 and normal S2 Extremities: + edema and + vascular access device (left IJ TDC.) Gastrointestinal (Abdomen): Inspection/Auscultation: abdomen normal to inspect ion Percussion/Palpation: abdomen soft; abdomen nontender PD catheter in place Musculoskeletal: Extremities: extremities normal to inspection Skin: no rashes, warm and dry Neurologic: no focal motor deficits Psychiatric: Orientation: alert and oriented x 3 Affect: euthymic affect Results & Data Vital Signs (Past 12 Hours) Vital Signs Temp Pulse Pulse Resp BP BP Pulse Ox 12/09/22 12:00 82 108/66 12/09/22 11:30 80 108/45 L 12/09/22 11:00 80 147/81 H 12/09/22 10:30 78 128/82 12/09/22 10:00 79 140/63 12/09/22 09:38 80 137/78 12/09/22 09:35 36.6 C 83 12/09/22 07:50 36.3 C L 76 18 161/81 H 94 12/09/22 07:00 74 19 92 O2 Del Method 12/09/22 12:00 12/09/22 11:30 12/09/22 11:00 12/09/22 10:30 12/09/22 10:00 12/09/22 09:38 12/09/22 09:35 12/09/22 07:50 Room Air 12/09/22 07:00 Room Air PG Care Time/CCT Total # of Minutes Spent Total Time Spent with Patient: Total time spent is greater than 50% in coordination of care (as documented) at patient's floor/unit and/or counseling patient: Coding Level of Care Code 17295 SUB INP/OBS CARE 235MIN Diagnoses ESRD on dialysis N18.6; Z99.2 Secondary hyperparathyroidism N25.81 Anemia D64.9 Anemia type: unspecified type AMS (altered mental status) R41.82 Confusion R41.0 (3) Anemia Anemia type: unspecified type Qualified Code(s): D64.9 - Anemia, unspecified
[2022-12-09] MEDS: amLODIPine BESYLATE 5 MG TAB PO SCH (14:15)
[2022-12-09] MEDS: PATIROMER CALCIUM SORBITEX 8.4 GM PACK PO SCH (15:22)
--- NOTE | 2022-12-09 17:23 | Billing Data ---
Date of Service December 09, 2022 Coding Level of Care Code 37653 SUB INP/OBS CARE
[2022-12-09] MEDS: QUEtiapine FUMARATE 25 MG TABLET PO SCH (19:42)
[2022-12-09] MEDS: MELATONIN 3 MG TAB PO PRN (20:57)
[2022-12-10 06:54] LABS: Hematocrit (blood only) 31.3 % (42.0-52.0); Hemoglobin 9.9 g/dl (14.0-18.0); Red Blood Count 3.27 M/uL (4.70-6.10); White Blood Count 6.25 K/ul (4.8-10.8)
[2022-12-10 06:55] LABS: Mean Corpuscular Hemoglobin 30.3 pg (25.0-34.0); Mean Corpuscular Hgb Conc 31.6 g/dL (32.0-36.0); Mean Corpuscular Volume 95.7 fL (80.0-100.0); Mean Platelet Volume 9.8 fL (9.4-12.4); Platelet Count 223 K/uL (130-400); RDW Coefficient of Variation 18.4 % (11.5-14.5)
[2022-12-10] MEDS: ALBUT/IPRATROP 3MG/0.5MG NEB 3 ML VIAL INH SCH (07:02)
[2022-12-10 07:28] LABS: BUN Creatinine Ratio 4.4 (10-20); Calcium 9.5 mg/dl (8.6-10.3); Creatinine Clr Calc Pharmacy 14.5 ml/min; Est GFR (African American) 13.8 ml/min; Est GFR (Non-African American) 11.9 ml/min
[2022-12-10] MEDS: HEPARIN SOD 5,000 UNIT/0.5 ML VIAL SQ SCH (09:05)
[2022-12-10] MEDS: DOCUSATE SODIUM 100 MG CAP PO SCH (09:06)
[2022-12-10] MEDS: POLYETHYLENE (MIRALAX) 17 GM PACK PO SCH (09:06)
[2022-12-10] MEDS: CALCIUM CARBONATE 500 MG CHEWABLE TAB PO SCH ×2 (09:07→12:50)
[2022-12-10] MEDS: UMECLIDINIUM/VILANTEROL 62.5/25MCG 7 PUFFS/INHALER INH SCH (09:07)
[2022-12-10] MEDS: TRIAMCINOLONE ACET 0.1% OINT 80 GM TUBE EXT SCH (09:08)
[2022-12-10] MEDS: EUCERIN CR 120 GM JAR EXT SCH (09:08)
[2022-12-10] MEDS: SEVELAMER HCL 800 MG TABLET PO SCH ×2 (09:08→12:50)
[2022-12-10] MEDS: amLODIPine BESYLATE 5 MG TAB PO SCH (09:09)
[2022-12-10] MEDS: AMIODARONE 200 MG TAB PO SCH (09:09)
[2022-12-10] MEDS: ACETAMINOPHEN 325 MG TAB PO SCH (09:09)
[2022-12-10] MEDS: CALCITRIOL 0.25 MCG CAPSULE PO SCH (09:10)
[2022-12-10] MEDS: DIVALPROEX DELAY RELEASE 500 MG TAB PO SCH (09:10)
[2022-12-10] MEDS: guaiFENesin 600 MG TABCR PO SCH (09:10)
[2022-12-10] MEDS: NEPHROCAPS PO SCH (09:10)
[2022-12-10] MEDS: LORATADINE 10 MG TAB PO SCH (09:10)
[2022-12-10] MEDS: CINACALCET HCL 30 MG TAB PO SCH (09:11)
[2022-12-10] MEDS: THIAMINE HCL 100 MG TAB PO SCH (09:11)
--- NOTE | 2022-12-10 09:49 | Discharge Summary ---
Date of Service December 10, 2022 Admission HPI Per Admitting Provider This is a 72-year-old male with past medical history significant history of intracranial hemorrhage status post cerebral aneurysm repair, history of end- stage renal disease on peritoneal dialysis, seizure disorder, atrial fibrillation, history of COPD who presents to the emergency department with complaints of generalized weakness and fall. Patient has been reported to have had progressive decline in his functional status and hence was brought in by his daughter as to the ED for further evaluation. Patient has not been eating well as per family and has been having symptoms of itchiness and periodic confusion as per family. Patient also has been having concerns with his peritoneal dialysis catheter drainage and patient's family had reported that they were unable to drain the dialysate from the prior exchange as well. Patient had become confused and had taken an additional dose of his amiodarone amlodipine and Depakote as per family and subsequently patient was reported to have become weak and shaky and had slid down on the floor. Family had denied any head injury during this episode and patient was brought into ED for further evaluation. Upon evaluation in the ED patient mental status had improved but patient continues to report generalized weakness and fatigue symptoms. At the time of my evaluation in the ED, patient's mental status had improved but patient continues to report generalized weakness Admission Exam Per Admitting Provider Head and ENT no thyroid enlargement trachea midline Cardiovascular S1-S2 are normal no S3 Lungs bilateral air entry fair no wheezing Abdomen soft mild distention noted no rebound tenderness PD catheter in site Extremity shows trace edema Neurologically no focal deficits, Skin shows no rash no cyanosis Principal Diagnosis PD Failure Discharge Exam Constitutional WD/WN, vitals as above ENMT Moist mucous membranes Respiratory normal respiratory effort, lungs clear to auscultation Cardiovascular Rate/Rhythm: regular rate and regular rhythm Symmetrical +1 bilateral lower extremity edema Gastrointestinal (Abdomen) Abdomen soft, mild distension Skin no rashes, warm and dry Psychiatric A+Ox3, euthymic affect Discharge Data Allergies Allergy/AdvReac Type Severity Reaction Status Date / Time lisinopril AdvReac Mild COUGH Verified 10/31/22 00:40 Consultations 11/18/22 00:02 ED Decision to Admit Stat 11/18/22 03:31 Consult Nephrology Routine 11/18/22 09:11 Consult Vascular Surgery Routine Procedures Performed Operation Date: 11/19/22 07:50 Actual Procedures p Perm Catheter Insertion, Left Internal Jugular Approach, Ultrasound Localization of Left Internal Jugular Vein, Fluroscopy for Positioning, Moderate Sedation [id number](Left) - Chip Yeboah MD Ordered Studies 11/19/22 07:12 EV cvc insrt tunnel wo prt/university registrar Routine US EV guide vascular access Routine 11/29/22 10:31 US abdomen ltd ascites Urgent Chest X-Ray 11/17/22 19:45 XR chest 1V portable CLINICAL HISTORY: weakness TECHNIQUE: Single frontal radiograph of the chest was obtained. Comparison: Comparison is made to chest radiograph 10/30/2022 FINDINGS: No lines and tubes are seen. Cardiomegaly is noted. The aortic arch is calcified. Emphysematous changes are seen without acute airspace opacity. No evidence of pleural effusion or pneumothorax. IMPRESSION: No acute chest disease. ACT 112: Negative or not required by law. Electronically signed by: Arthur Taylor M.D. 11/18/2022 8:03 AM Chest X-Ray 11/29/22 09:48 XR chest 1V portable CLINICAL HISTORY: pain TECHNIQUE: Single frontal radiograph of the chest was obtained. Comparison: Comparison is made to chest radiograph 11/17/2022 FINDINGS: Dual lumen venous catheter is seen. Cardiomegaly is noted. The aortic arch is calcified. Multifocal airspace opacities are seen. No evidence of pleural effusion or pneumothorax. IMPRESSION: Multifocal airspace opacities may represent atelectasis, pneumonia, and/or aspiration. Stable cardiomegaly. ACT 112: Negative or not required by law. Electronically signed by: Arthur Taylor M.D. 11/29/2022 10:13 AM Abdomen Ultrasound 11/29/22 10:31 abdomen ltd ascites CLINICAL HISTORY: abdominal edema, hx of peritoneal dialysis TECHNIQUE: Real-time grayscale sonographic images of the abdomen were obtained. Comparison: None available at the time of this dictation. FINDINGS/IMPRESSION: Trace ascites is seen. ACT 112: Negative or not required by law. Electronically signed by: Arthur Taylor M.D. 11/29/2022 12:44 PM Chest X-Ray 12/01/22 06:00 XR chest 1V portable HISTORY: 72 years-old Male pulmonary edema acute shortness of breath COMPARISON: 11/29/2022, 06/30/2021. TECHNIQUE: AP view of the chest FINDINGS: Cardiac silhouette is enlarged. Unchanged asymmetric right hilar prominence. Dual-lumen hemodialysis catheter distal tip is again noted within the expected location of the mid SVC. Atherosclerosis of the aorta. Biapical pleural parenchymal scarring with chronic reticular interstitial densities and emphysema. No pneumothorax, pleural effusion or lobar airspace consolidation. Pulmonary vascular congestion. Degenerative changes of the shoulders and spine. IMPRESSION: 1. Emphysema with chronic interstitial coarsening. 2. Cardiomegaly with pulmonary vascular congestion and possible mild pulmonary edema. ACT 112: Negative or not required by law. The above report was generated using voice recognition software. It may contain grammatical, syntax or spelling errors. Electronically signed by: Bethel Logan M.D. 12/01/2022 7:51 AM Chest X-Ray 12/03/22 08:52 XR chest 1V portable CLINICAL HISTORY: Follow-up pulmonary edema. COMPARISON STUDY: Chest radiograph December 01, 2022. Chest CT June 30, 2021. FINDINGS: A dual-lumen left internal jugular [id number] remains in place. Cardiomegaly is again noted. There is no pneumothorax or pleural effusion. Mild interstitial thickening persists. Apparent slight interval increase is noted. This may be technical. No definite consolidation. IMPRESSION: Interstitial thickening which favors mild pulmonary edema, stable to slightly increased since prior exam. Cardiomegaly. ACT 112: Negative or not required by law. Electronically signed by: Yunior Arroyo M.D. 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 ESRD Patient presented with uremia due to failure of PD treatment at home. HD placed this admission. Uremia and HAGMA resolved. Unsafe to resume PD at home at this time. Patient is s/p Venofer, phosphate binder ongoing. On 12/07, patient had failure of HD catheter, dialysis session unable to be completed. Vascular surgery did not have current coverage at [facility] so arrangements were made to transfer patient to [facility]. However, the next day another dialysis session was successfully completed so transfer was cancelled. Additional dialysis sessions completed without issue. [facility] for outpatient dialysis upon discharge. Per nephrology, patient to follow up with vascular surgery in December after discharge for placement of AV fistula and removal of PD catheter. * Continue on dialysis Wednesday, Wednesday, Wednesday, with [facility] [place] Nurse and gave dialysis order and patient will be there tomorrow for dialysis. * Left arm nephrology precaution, continue on renal diet, dose medications for GFR less than 10 * Continue phosphate binder with meal, low-potassium diet. Weakness, ambulatory dysfunction, metabolic encephalopathy Presented with confusion and weakness ongoing over several days with a fall; also took extra doses of home medications (while altered) prior to coming in. Suspect largely secondary to acidemia and uremia. Infectious and metabolic work- up otherwise negative on admission. Metabolic encephalopathy resolved with initiation of HD. Patient is alert and oriented. Paroxysmal atrial fibrillation Not on anticoagulation. Hx of ICH. Will defer to outpatient cardiology. Abdominal ascites, trace Noted on abd US. Chronic, had hx of peritoneal drain in past. Prior peritoneal dialysis. HTN Continue home amlodipine 2.5 mg Hypervolemia Subjective generalized edema admission and cxr w/ mild pulmonary edema. Some improvement noted upon regular dialysis treatments Wrist pain Most likely tendonitis or tenosynovitis. Ordered wrist splint for patient to use COPD Continue home regimen Insomnia Melatonin 15 mg HS PRN Pruritus Has had intermittent itchiness on his back, can continue hydroxyzine, moisturizer PRN for symptoms Patient was full code during this hospital admission. (2) Acute respiratory failure with hypoxia: (3) COPD (chronic obstructive pulmonary disease): (4) HTN (hypertension): Total Time Total Time Spent Total Time Spent (In Minutes): .<30 Discharge Plan Discharge Items Patient Disposition: [facility] Reason For Visit: PD MALFUNCTION Discharge Diagnosis: PD Malfunction Activity: Per Instructions section Non-emergency contact: Primary Care Provider and Almond Grinder Call non-emergency contact if: you have any medication questions and your symptoms worsen Follow-up/Referrals: Jennifer Shanks, Joseph.O. 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 ESRD Patient presented with uremia due to failure of PD treatment at home. HD placed this admission. Uremia and HAGMA resolved. Unsafe to resume PD at home at this time. Patient is s/p Venofer, phosphate binder ongoing. On 12/07, patient had failure of HD catheter, dialysis session unable to be completed. Vascular surgery did not have current coverage at [facility] so arrangements were made to transfer patient to [facility]. However, the next day another dialysis session was successfully completed so transfer was cancelled. Additional dialysis sessions completed without issue. [facility] for outpatient dialysis upon discharge. Per nephrology, patient to follow up with vascular surgery in December a fter discharge for placement of AV fistula and removal of PD catheter. * Continue on dialysis Wednesday, Wednesday, Wednesday, with [facility] [place] Nurse and gave dialysis order and patient will be there tomorrow for dialysis. * Left arm nephrology precaution, continue on renal diet, dose medications for GFR less than 10 * Continue phosphate binder with meal, low-potassium diet. Weakness, ambulatory dysfunction, metabolic encephalopathy Presented with confusion and weakness ongoing over several days with a fall; also took extra doses of home medications (while altered) prior to coming in. Suspect largely secondary to acidemia and uremia. Infectious and metabolic work- up otherwise negative on admission. Metabolic encephalopathy resolved with initiation of HD. Patient is alert and oriented. Paroxysmal atrial fibrillation Not on anticoagulation. Hx of ICH. Will defer to outpatient cardiology. Abdominal ascites, trace Noted on abd US. Chronic, had hx of peritoneal drain in past. Prior peritoneal dialysis. HTN Continue home amlodipine 2.5 mg Hypervolemia Subjective generalized edema admission and cxr w/ mild pulmonary edema. Some improvement noted upon regular dialysis treatments Wrist pain Most likely tendonitis or tenosynovitis. Ordered wrist splint for patient to use COPD Continue home regimen Insomnia Melatonin 15 mg HS PRN Pruritus Has had intermittent itchiness on his back, can continue hydroxyzine, moisturizer PRN for symptoms Patient was full code during this hospital admission. Pending Studies at Discharge: No Stand-Alone Forms: My [employer] Skilled Items Patient informed of condition?: Yes DNR: No Discharge Level of Care: Skilled Communicable Disease: No Discharge Prognosis: Stable Lines: None Urinary Catheter: No Medications and DC Order Prescriptions: New melatonin 3 mg Tablet 15 mg PO HSZ PRNQty: 0 0RF triamcinolone acetonide 0.1 % Ointment 1 applic EXT BID Qty: 0 0RF calcium carbonate [Tums] 200 mg calcium (500 mg) Tablet,Chewable 500 mg PO TIDM Qty: 0 0RF Renal Caps 1 mg Capsule 1 cap PO QAM Qty: 0 0RF hydroxyzine HCl 10 mg Tablet 10 mg PO TID PRNQty: 0 0RF calcitriol 0.25 mcg Capsule 1 mcg PO QAM Qty: 0 0RF loratadine [Wal-itin] 10 mg Tablet 10 mg PO Q2D Qty: 0 0RF Dermacerin Cream 1 applic EXT BID Qty: 0 0RF Continued Stiolto Respimat 2.5-2.5 mcg/actuation mist 2 puff INH QAM Qty: 4 5RF docusate sodium [Colace] 100 mg capsule 400 mg PO BID polyethylene glycol 3350 [Miralax] 17 gram/dose Powder 17 g PO BID ipratropium-albuterol 0.5 mg-3 mg(2.5 mg base)/3 mL solution for nebulization 3 ml INHALATION BID epinephrine [EpiPen] 0.3 mg/0.3 mL Auto-Injector 0.3 mg IM Q4H PRN (Reason: as directed) Auryxia 210 mg iron tablet 420 mg PO TIDWMEAL Qty: 1 0RF Rx Instructions: administer with a meal amlodipine 2.5 mg tablet 2.5 mg PO DAILY Qty: 30 2RF divalproex 500 mg tablet,delayed release (DR/EC) 500 mg PO QAM amiodarone 200 mg Tablet 200 mg PO DAILY acetaminophen [Tylenol Arthritis Pain] 650 mg Tablet Extended Release 650 mg PO Q12H cinacalcet [Sensipar] 30 mg Tablet 30 mg PO BID Mucinex 1,200 mg Tablet Extended Release 12hr 1,200 mg PO BID quetiapine 25 mg Tablet 25 mg PO HS Qty: 30 0RF thiamine HCl (vitamin B1) 100 mg Tablet 100 mg PO QAM Qty: 30 0RF Discontinued calcitriol 0.5 mcg capsule 1 mcg PO QAM melatonin 5 mg Tablet 5 mg PO HS Discharge Orders: Discharge Order (Routine); Ordered 12/10/22 Ordered By: Lanie Tse/Other Patient Handouts: Coping with Kidney Failure Admission Data Admit Date/Time: 11/18/22 00:30 Attending Provider: Trent Christianson Admit Provider: Kevin Medina Primary Care Provider: Jennifer Shanks Other Providers: Ramone Gallardo ; [facility] ; [facility] ; Kevin Medina ; Elroy Underwood ; Radha Romo ; Pankaj Cordon ; Precious Skinner ; Chip Yeboah ; [facility] ; [facility] Other Interventions: Discharge Summary Assessment (RN) Last Done: 12/10/22 15:20 Supervising Physician Co-Signing Physician Notes I personally examined the patient and verified all reyes points of history and exam, discussed case, and agree with decision making with Dr Rashid for SNF today. no new complaints. excited to see lloyd vitals noted nad resting during dialysis heent nc at mmm breathing unlabored no accessory muscles good effort skin no rashes no pallor or icterus neuro no focal deficits Weakness, ambulatory dysfunction - for SNF ESRD on HD, h/o PD - continue HD as outpt otherwise as above
--- NOTE | 2022-12-10 11:11 | Nephrology Progress Note ---
Date of Service December 10, 2022 Assessment & Plan (1) ESRD on dialysis: (2) Secondary hyperparathyroidism: (3) Anemia: (4) AMS (altered mental status): (5) Confusion: Plan 72 year-old gentlemen with ESRD secondary to polycystic kidney disease, on HD via rt IJ TDC. ( was on CCPD, waiting for PD catheter to be remover). Admitted to the hospital confused, taking his medications wrong, very weak, fall at home while he was doing his peritoneal dialysis. Had TDC on 11/19/22 and transition to HD due to difficulty continuing with PD with ongoing confusion and fall. waiting on PD catheter removal once vascular surgeon is available. has been tolerating hemodialysis, volume status improved with UF challenge. Currently waiting for long-term care facility placement with availability of transportation to dialysis center. Overall clinically stable, waiting on DC today. --had dialysis yesterday, continue on dialysis Wednesday, Wednesday, Wednesday, discussed with [facility] [place] Nurse and gave dialysis order and patient will be there tomorrow for dialysis. --left arm nephrology precaution, continue on renal diet, dose medications for GFR less than 10 --continue phosphate binder with meal, low-potassium diet. Admission and Anticipated Discharge Date Admission Date: November 18, 2022 Abraham Laird was seen this morning with his granddaughter Leti at bedside, he denied any shortness of breath or chest pain. had dialysis yesterday had 3 L UF. Blood pressure better controlled volume status improved significantly. Overall doing well. Waiting for discharge to [facility] today. Review of Systems Review of Systems: detailed review of system was otherwise unremarkable. Physical Exam Constitutional: WD/WN, vitals as above no acute distress Eyes: + anicteric sclerae Neck: normal visual inspection Respiratory: no respiratory distress Auscultation: lungs clear to auscultation bilaterally Cardiovascular: Rate/Rhythm: regular rate and regular rhythm Heart Sounds: normal S1 and normal S2 Extremities: + edema and + vascular access device (left IJ TDC.) Gastrointestinal (Abdomen): Inspection/Auscultation: abdomen normal to inspection Percussion/Palpation: abdomen soft; abdomen nontender PD catheter in place Musculoskeletal: Extremities: extremities normal to inspection Skin: no rashes, warm and dry Neurologic: no focal motor deficits Psychiatric: Orientation: alert and oriented x 3 Affect: euthymic affect Results & Data Vital Signs (Past 12 Hours) Vital Signs Temp Pulse Pulse Resp BP Pulse Ox O2 Del Method 12/10/22 08:05 Room Air 12/10/22 07:05 36.8 C 75 18 124/62 99 Nebulizer 12/10/22 07:03 81 18 95 Room Air PG Care Time/CCT Total # of Minutes Spent Total Time Spent with Patient: Total time spent is greater than 50% in coordination of care (as documented) at patient's floor/unit and/or counseling patient: Coding Level of Care Code 68578 SUB INP/OBS CARE 2/35MIN Diagnoses ESRD on dialysis N18.6; Z99.2 Secondary hyperparathyroidism N25.81 Anemia D64.9 Anemia type: unspecified type AMS (altered mental status) R41.82 Confusion R41.0 (3) Anemia Anemia type: unspecified type Qualified Code(s): D64.9 - Anemia, unspecified
[2022-12-10] MEDS: PATIROMER CALCIUM SORBITEX 8.4 GM PACK PO SCH (14:48)
--- NOTE | 2022-12-10 18:15 | Billing Data ---
Date of Service December 10, 2022 Coding Level of Care Code 19639 IN/OBS DISCH 30 MIN/LESS
== END 2022-12-10 15:16 | DRG 673 ==
LOC: ED 19:34 → EDINP 11-18 00:30 → SUATTDRO 11-18 00:30 → 2W 11-18 15:37 → 3N 11-22 12:55

== ENCOUNTER 2023-02-18 18:35 | Inpatient (IN) ==
--- NOTE | 2023-02-18 20:02 | Emergency Department Note ---
History of Present Illness General Chief complaint: Abdominal Pain Stated complaint: ABDOMINAL PAIN, COVID POS Time Seen by Provider: 02/18/23 19:45 History of Present Illness Maximum Pain Intensity: 10 72-year-old male presents emergency department reportedly was changed over from peritoneal dialysis to hemodialysis and currently has a dialysis catheter present in the left subclavian. Patient's had abdominal distention for the past 2 months now. Today the patient had cough cold congestion symptoms and due to the abdominal distention he was complaining of some abdominal pain when he coughed. Patient was tested for COVID and was COVID-positive. Patient states that he gets dialysis Wednesday and is due for dialysis tomorrow without any skipped dialysis this week. Patient has no other complaints no nausea no vomiting no fever. No other mitigating or alleviating factors Home Medications Medication Instructions Recorded Confirmed Type tiotropium 2.5 mcg-olodaterol 2.5 2 puff inhalation QAM #4 grams 02/18/21 02/18/23 Rx mcg/actuation mist for inhalation (Stiolto Respimat) polyethylene glycol 3350 17 17 g PO BID PRN Constipation 06/30/21 02/18/23 History gram/dose oral powder (Miralax) docusate sodium 100 mg capsule 400 mg PO BID 07/31/21 02/18/23 History (Colace) cinacalcet 30 mg tablet (Sensipar) 30 mg PO QAM 03/27/22 02/18/23 History epinephrine 0.3 mg/0.3 mL 0.3 mg IM Q4H PRN as directed 08/29/22 02/18/23 History injection, auto-injector (EpiPen) ipratropium 0.5 mg-albuterol 3 mg 3 ml inhalation QS PRN Shortness 08/29/22 02/18/23 History (2.5 mg base)/3 mL nebulization Of Breath Or Wheezing soln amlodipine 2.5 mg tablet 2.5 mg PO DAILY #30 tabs 09/06/22 02/18/23 Rx ferric citrate 210 mg iron tablet 420 mg PO TIDWMEAL #1 tab 09/06/22 02/18/23 Rx (Auryxia) amiodarone 200 mg tablet 200 mg PO QPM 11/17/22 02/18/23 History divalproex 500 mg tablet,delayed 500 mg PO QAM 11/17/22 02/18/23 History release loratadine 10 mg tablet (Wal-itin) 10 mg PO Q2D #0 tabs 12/10/22 02/18/23 Rx triamcinolone acetonide 0.1 % 1 applic EXT BID #0 grams 12/10/22 02/18/23 Rx topical ointment vitamin B complex and vitamin C 1 cap PO QAM #0 caps 12/10/22 02/18/23 Rx no.20-folic acid 1 mg capsule (Renal Caps) acetaminophen 325 mg tablet 650 mg PO Q4 PRN Fever Or Pain 01/05/23 02/18/23 History (Tylenol) cholecalciferol (vitamin D3) 125 5,000 unit PO QPM 01/05/23 02/18/23 History mcg (5,000 unit) capsule melatonin 3 mg tablet 15 mg PO HS 01/05/23 02/18/23 History thiamine HCl (vitamin B1) 100 mg 100 mg PO QAM 01/05/23 02/18/23 History tablet bisacodyl 5 mg tablet,delayed 5 mg PO DAILY PRN Constipation 02/18/23 02/18/23 History release (Dulcolax (bisacodyl)) famotidine 40 mg tablet 40 mg PO DAILY 02/18/23 02/18/23 History guaifenesin 1,200 mg tablet, 1,200 mg PO BID PRN Congestion 02/18/23 02/18/23 History extended release 12 hr (Mucinex) hydroxyzine HCl 10 mg tablet 20 mg PO TID PRN .itchy 02/18/23 02/18/23 History nut.tx.imp.renal fxn,lac-reduc 1 ea PO BID 02/18/23 02/18/23 History 0.04 gram-1.8 kcal/mL oral liquid (Suplena Carb Steady) tramadol 50 mg tablet 50 mg PO Q6H PRN .Mod pain 02/18/23 02/18/23 History trazodone 50 mg tablet 50 mg PO HS 02/18/23 02/18/23 History Allergies Allergy/AdvReac Type Severity Reaction Status Date / Time lisinopril AdvReac Mild COUGH Verified 02/18/23 21:01 Past Med/Surg History Medical History Abdominal pain determined by examination Alzheimer disease Anemia Ascites Benign neoplasm of skin of nose removed once Benign prostate hyperplasia Bladder mass Bradycardia CCPD (continuous cycling peritoneal dialysis) status port in place left abdomen--dialysis daily at home; second port that has been placed for dialysis. Chronic obstructive pulmonary disease inhaler/nebulizer daily Cirrhosis of liver Confusion COPD (chronic obstructive pulmonary disease) Diverticulosis End-stage renal disease on peritoneal dialysis Gout hx Hemorrhoids "not currently flared" History of marijuana use daily HTN (hypertension) Hx of atrial flutter 06/2021, hospitalized w/pneumonia for almost 3 weeks; dx atrial flutter-currently amiodarone; f/u dr. adkins, [place] Hypercalcemia Hypertension Intracranial hemorrhage 2012 Low back pain Myoclonic jerking On home oxygen therapy 2L N/C at hs PAF (paroxysmal atrial fibrillation) Paroxysmal atrial flutter Polycystic kidney disease, adult type (09/03/12) Ruptured middle cerebral artery aneurysm Secondary hyperparathyroidism (of renal origin) Secondary hyperparathyroidism of renal origin Seizure disorder Tremor of both hands Vitamin D deficiency Surgical History History of cerebral aneurysm repair 2012 [facility] Presby--clip in place; clip IS MRI COMPATIBLE History of colonoscopy History of tooth extraction all teeth Family History Mother , age 65 of cancer Cancer Father , age 60 from a tree falling on him No problems noted. 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) Hx Substance Use: No Preferred Language: Telugu Communication Ability: Effective Communication Ability Comment: pt can sign own consent [employer] Required: No Beliefs That Will Affect Care: Spiritual marital status: Single Current Living Situation: Family Current Living Situation Comment: lives w/ grandaughter, her & kids How many Children do You have: 1 Feels Safe at Home: Yes Assistive Devices: Walker Review of Systems A total of 10 systems reviewed and were otherwise negative Respiratory: + cough and + dyspnea Gastrointestinal: + bloating Physical Exam Vital Signs Vital Signs - 24 hr 02/18/23 18:55 02/18/23 20:28 02/18/23 18:55 Temperature 37.3 C Temperature Source Oral Pulse Rate 85 90 Pulse Rate from SpO2 Sensor Pulse Rhythm Regular Regular Pulse Strength Normal Respiratory Rate 22 21 Respiratory Effort / Characteristics Non-Labored Spontaneous Respiratory Depth Normal Respiratory Pattern Regular Blood Pressure 136/74 Blood Pressure Mean 94 Blood Pressure Position Sitting Pulse Oximetry 95 94 Oxygen Delivery Method Room Air Nasal Cannula Oxygen Flow Rate 2 Sepsis Recent Fever Within 48 Hours No Sepsis New/Unexplained Change in Mental Status No Sepsis Action Taken by Nursing No Action Required 02/18/23 18:56 02/18/23 18:56 02/18/23 19:00 Temperature Temperature Source Pulse Rate 89 Pulse Rate from SpO2 Sensor 89 Pulse Rhythm Pulse Strength Respiratory Rate 18 Respiratory Effort / Characteristics Respiratory Depth Respiratory Pattern Blood Pressure 136/80 136/74 Blood Pressure Mean 120 96 Blood Pressure Position Pulse Oximetry 95 Oxygen Delivery Method Oxygen Flow Rate Sepsis Recent Fever Within 48 Hours Sepsis New/Unexplained Change in Mental Status Sepsis Action Taken by Nursing 02/18/23 19:00 02/18/23 19:10 02/18/23 19:20 Temperature Temperature Source Pulse Rate 88 90 Pulse Rate from SpO2 Sensor 88 Pulse Rhythm Pulse Strength Respiratory Rate 19 14 30 H Respiratory Effort / Characteristics Respiratory Depth Respiratory Pattern Blood Pressure Blood Pressure Mean Blood Pressure Position Pulse Oximetry 93 Oxygen Delivery Method Oxygen Flow Rate Sepsis Recent Fever Within 48 Hours Sepsis New/Unexplained Change in Mental Status Sepsis Action Taken by Nursing 02/18/23 19:30 02/18/23 19:30 02/18/23 19:40 Temperature Temperature Source Pulse Rate 84 157 H Pulse Rate from SpO2 Sensor 84 83 Pulse Rhythm Pulse Strength Respiratory Rate 15 28 H Respiratory Effort / Characteristics Respiratory Depth Respiratory Pattern Blood Pressure 141/78 H Blood Pressure Mean 106 Blood Pressure Position Pulse Oximetry 95 93 Oxygen Delivery Method Oxygen Flow Rate Sepsis Recent Fever Within 48 Hours Sepsis New/Unexplained Change in Mental Status Sepsis Action Taken by Nursing 02/18/23 19:51 02/18/23 20:00 02/18/23 20:00 Temperature Temperature Source Pulse Rate Pulse Rate from SpO2 Sensor 84 83 Pulse Rhythm Pulse Strength Respiratory Rate Respiratory Effort / Characteristics Respiratory Depth Respiratory Pattern Blood Pressure 112/84 Blood Pressure Mean 93 Blood Pressure Position Pulse Oximetry 92 95 Oxygen Delivery Method Oxygen Flow Rate Sepsis Recent Fever Within 48 Hours Sepsis New/Unexplained Change in Mental Status Sepsis Action Taken by Nursing 02/18/23 20:14 02/18/23 20:20 02/18/23 20:30 Temperature Temperature Source Pulse Rate Pulse Rate from SpO2 Sensor 86 81 Pulse Rhythm Pulse Strength Respiratory Rate Respiratory Effort / Characteristics Respiratory Depth Respiratory Pattern Blood Pressure Blood Pressure Mean Blood Pressure Position Pulse Oximetry 91 92 92 Oxygen Delivery Method Oxygen Flow Rate Sepsis Recent Fever Within 48 Hours Sepsis New/Unexplained Change in Mental Status Sepsis Action Taken by Nursing 02/18/23 20:31 02/18/23 20:31 02/18/23 19:15 Temperature Temperature Source Pulse Rate 85 Pulse Rate from SpO2 Sensor 82 Pulse Rhythm Pulse Strength Respiratory Rate Respiratory Effort / Characteristics Respiratory Depth Respiratory Pattern Blood Pressure Blood Pressure Mean 112 Blood Pressure Position Pulse Oximetry 93 Oxygen Delivery Method Oxygen Flow Rate Sepsis Recent Fever Within 48 Hours Sepsis New/Unexplained Change in Mental Status Sepsis Action Taken by Nursing GENERAL: Patient is awake alert in no acute distress patient is resting comfortably and showing no signs of anxiety EYES: The conjunctivae are clear. The pupils are round and reactive. EARS, NOSE, MOUTH AND THROAT: The nose is without any evidence of any deformity. Mucous membranes are moist. Tongue is midline. NECK: The neck is nontender and supple. RESPIRATORY: Normal respiratory effort is noted there is no evidence of wheezing rhonchi or rales CARDIOVASCULAR: Regular rate and rhythm noted there no murmurs rubs or gallops normal S1 normal S2. Chest wall; there is a left subclavian dialysis catheter present GASTROINTESTINAL: The abdomen is soft. Abdomen is nontender. Distended BACK: No midline tenderness or or step-off noted range of motion in flexion extension as well as rotation no signs of muscle spasm noted MUSCULOSKELETAL/EXTREMITIES: There is no evidence of gross deformity full range of motion is noted in the hips and shoulders. SKIN: There is no obvious evidence of any rash. There are no petechiae, pallor or cyanosis noted. NEUROLOGIC: Patient is awake alert and oriented x3 strength is symmetric Course Reevaluation(s) Reevaluation #1: Patient is resting in no distress on repeat examination, normotensive Time: 23:23 Consultations Consultation #1: Case discussed with the [facility] hospitalist for admission for COVID and sepsis Time: 23:23 Administered Medications Discontinued Medications Ceftriaxone Sodium (Rocephin) 2,000 mg in 70 mls @ 140 mls/hr IV NOW STA Stop: 02/18/23 22:45 Last Admin: 02/18/23 22:45 Dose: 140 mls/hr Documented By: DUONG Medical Decision Making Medical Records Attestation: I reviewed the patient's medical records. Home Medications Current Medication List: was personally reviewed by Laboratory Data Attestation: I reviewed the patient's lab results. Labs interpreted by me patient has an elevated creatinine of 6.72 which is around his typical baseline with a history of end-stage renal disease 02/18/23 20:20 02/18/23 20:20 Lab Results 02/18/23 02/18/23 02/18/23 Range/Units 20:20 20:20 20:20 WBC 5.32 (4.8-10.8) K/ul RBC 3.65 L (4.70-6.10) M/uL Hgb 11.4 L (14.0-18.0) g/dl Hct 34.1 L (42.0-52.0) % MCV 93.4 (80.0-100.0) fL MCH 31.2 (25.0-34.0) pg MCHC 33.4 (32.0-36.0) g/dL RDW Std Deviation 52.2 H (36.4-46.3) fL RDW Coeff of Giovana 15.4 H (11.5-14.5) % Plt Count 238 (130-400) K/uL MPV 9.3 L (9.4-12.4) fL Immature Gran % (Auto) 0.4 % Neut % (Auto) 72.4 % Lymph % (Auto) 9.6 % [place] % (Auto) 16.2 % Eos % (Auto) 0.6 % Baso % (Auto) 0.8 % Neut # (Auto) 3.86 (1.40-6.50) K/uL Lymph # (Auto) 0.51 L (1.20-3.40) K/uL [place] # (Auto) 0.86 H (0.11-0.59) K/uL Eos # (Auto) 0.03 (0.00-0.50) K/uL Baso # (Auto) 0.04 (0.00-0.20) K/uL Immature Gran # (Auto) 0.02 (0.01-0.20) K/uL PT 11.1 (9.0-12.0) Seconds INR 1.0 (0.9-1.1) APTT 30.4 (21.0-31.0) Seconds PTT Ratio 1.1 Sodium 137 (136-145) mmol/L Potassium 4.8 (3.5-5.1) mmol/L Chloride 102 (98-107) mmol/L Carbon Dioxide 26 (21-32) mmol/L Anion Gap 9 (3-11) BUN 46 H (6-23) mg/dl Creatinine 6.72 H* (0.6-1.4) mg/dl Est Cr Clr Drug Dosing 10.9 ml/min Est GFR ( Amer) 8.7 ml/min Est GFR (Non-Af Amer) 7.5 ml/min BUN/Creatinine Ratio 6.8 L (10-20) Glucose 112 H (70-99(Fasting)) mg/dl Lactate (0.4-2.0) mmol/L Calcium 9.1 (8.6-10.3) mg/dl Magnesium 2.1 (1.7-2.4) mg/dl Total Bilirubin 0.4 (0.2-1.0) mg/dl Direct Bilirubin 0.0 (0-0.2) mg/dl AST 16 (13-39) U/L ALT 10 (7-52) U/L Alkaline Phosphatase 50 (34-104) U/L Total Protein 5.4 L (6.0-8.3) gm/dl Albumin 3.1 L (3.4-5.0) gm/dl Procalcitonin (0-0.5) ng/ml SARS-CoV-2, RNA, NAAT (NEGATIVE) 02/18/23 02/18/23 02/18/23 Range/Units 20:20 20:20 20:52 WBC (4.8-10.8) K/ul RBC (4.70-6.10) M/uL Hgb (14.0-18.0) g/dl Hct (42.0-52.0) % MCV (80.0-100.0) fL MCH (25.0-34.0) pg MCHC (32.0-36.0) g/dL RDW Std Deviation (36.4-46.3) fL RDW Coeff of Giovana (11.5-14.5) % Plt Count (130-400) K/uL MPV (9.4-12.4) fL Immature Gran % (Auto) % Neut % (Auto) % Lymph % (Auto) % [place] % (Auto) % Eos % (Auto) % Baso % (Auto) % Neut # (Auto) (1.40-6.50) K/uL Lymph # (Auto) (1.20-3.40) K/uL [place] # (Auto) (0.11-0.59) K/uL Eos # (Auto) (0.00-0.50) K/uL Baso # (Auto) (0.00-0.20) K/uL Immature Gran # (Auto) (0.01-0.20) K/uL PT (9.0-12.0) Seconds INR (0.9-1.1) APTT (21.0-31.0) Seconds PTT Ratio Sodium (136-145) mmol/L Potassium (3.5-5.1) mmol/L Chloride (98-107) mmol/L Carbon Dioxide (21-32) mmol/L Anion Gap (3-11) BUN (6-23) mg/dl Creatinine (0.6-1.4) mg/dl Est Cr Clr Drug Dosing ml/min Est GFR ( Amer) ml/min Est GFR (Non-Af Amer) ml/min BUN/Creatinine Ratio (10-20) Glucose (70-99(Fasting)) mg/dl Lactate 0.7 (0.4-2.0) mmol/L Calcium (8.6-10.3) mg/dl Magnesium (1.7-2.4) mg/dl Total Bilirubin (0.2-1.0) mg/dl Direct Bilirubin (0-0.2) mg/dl AST (13-39) U/L ALT (7-52) U/L Alkaline Phosphatase (34-104) U/L Total Protein (6.0-8.3) gm/dl Albumin (3.4-5.0) gm/dl Procalcitonin 1.11 H (0-0.5) ng/ml SARS-CoV-2, RNA, NAAT POSITIVE A* (NEGATIVE) Imaging Data Attestation: I personally reviewed and interpreted this imaging study as fo llows: My Impression: Chest x-ray interpreted by me cardiomegaly Radiologist's Impression: Chest X-Ray 02/18/23 19:46 SINGLE VIEW CHEST CLINICAL HISTORY: Sepsis. FINDINGS: 2 AP, portable, upright chest radiographs are compared to study dated 12/03/2022 and correlated with chest CT dated 06/30/2021.. A left-sided central venous catheter is in place. The heart is enlarged noting atherosclerotic calcification of the thoracic aorta. There is pulmonary vascular congestion. Emphysema and chronic interstitial thickening is similar to previous. Bilateral airspace opacities are observed. There is bibasilar scarring/atelectasis. Fibrotic change is noted at the apices. No large pleural effusion or pneumothorax is seen. The skeletal structures are osteopenic. The bony thorax is grossly intact. IMPRESSION: 1. Cardiomegaly and emphysema with pulmonary vascular congestion. 2. Bilateral airspace opacities likely represent mild pulmonary edema. Correlate clinically for evidence of a superimposed infectious/inflammatory pneumonitis. Radiographic follow-up to resolution is recommended. 3. No large pleural effusion is identified. ACT 112: Negative or not required by law. Electronically signed by: Jeet Ramirez M.D. 02/18/2023 10:06 PM ECG Data Attestation: I personally reviewed and interpreted this ECG as follows: MDM Narrative Medical decision making differential diagnosis includes COVID, pneumonia, CHF, electrolyte abnormality, worsening CKD, ascites Plan is to check sepsis labs, COVID Patient is COVID-positive, has an elevated procalcitonin as well, patient may be septic with COVID, the case was discussed with the [facility] hospitalist for admission Impression & Plan COVID-19, SIRS (systemic inflammatory response syndrome), CKD (chronic kidney disease) Discharge Plan Visit Data Chief Complaint: Abdominal Pain Stated Complaint: ABDOMINAL PAIN, COVID POS ED Provider: José Cottrell Discharge Problem: COVID-19, SIRS (systemic inflammatory response syndrome), CKD (chronic kidney disease) Patient Disposition: Admitted As Inpatient Forms Stand Alone Forms: My [facility] Prescriptions Prescriptions: No Action Stiolto Respimat 2.5-2.5 mcg/actuation mist 2 puff INH QAM Qty: 4 5RF docusate sodium [Colace] 100 mg capsule 400 mg PO BID polyethylene glycol 3350 [Miralax] 17 gram/dose Powder 17 g PO BID PRN (Reason: Constipation) ipratropium-albuterol 0.5 mg-3 mg(2.5 mg base)/3 mL solution for nebulization 3 ml INHALATION QS PRN (Reason: Shortness Of Breath Or Wheezing) Rx Instructions: ALSO LOW 02 SATS epinephrine [EpiPen] 0.3 mg/0.3 mL Auto-Injector 0.3 mg IM Q4H PRN (Reason: as directed) Auryxia 210 mg iron tablet 420 mg PO TIDWMEAL Qty: 1 0RF Rx Instructions: administer with a meal amlodipine 2.5 mg tablet 2.5 mg PO DAILY Qty: 30 2RF divalproex 500 mg tablet,delayed release (DR/EC) 500 mg PO QAM amiodarone 200 mg Tablet 200 mg PO QPM triamcinolone acetonide 0.1 % Ointment 1 applic EXT BID Qty: 0 0RF Renal Caps 1 mg Capsule 1 cap PO QAM Qty: 0 0RF loratadine [Wal-itin] 10 mg Tablet 10 mg PO Q2D Qty: 0 0RF trazodone 50 mg Tablet 50 mg PO HS famotidine 40 mg Tablet 40 mg PO DAILY tramadol 50 mg Tablet 50 mg PO Q6H PRN (Reason: .Mod pain) bisacodyl [Dulcolax (bisacodyl)] 5 mg Tablet,Delayed Release (Dr/Ec) 5 mg PO DAILY PRN (Reason: Constipation) Suplena Carb Steady 0.04 gram-1.8 kcal/mL liquid 1 ea PO BID Rx Instructions: 120ml per dose hydroxyzine HCl 10 mg Tablet 20 mg PO TID PRN (Reason: .itchy) Mucinex 1,200 mg Tablet Extended Release 12hr 1,200 mg PO BID PRN (Reason: Congestion) cinacalcet [Sensipar] 30 mg Tablet 30 mg PO QAM acetaminophen [Tylenol] 325 mg Tablet 650 mg PO Q4 PRN (Reason: Fever Or Pain) thiamine HCl (vitamin B1) 100 mg tablet 100 mg PO QAM cholecalciferol (vitamin D3) 125 mcg (5,000 unit) capsule 5,000 unit PO QPM Rx Instructions: after supper melatonin 3 mg tablet 15 mg PO HS Referrals Referrals: Naveed Jerry MD [Primary Care Provider] -
[2023-02-18 20:49] LABS: Basophils # (auto) 0.04 K/uL (0.00-0.20); Basophils % (auto) 0.8 %; Eosinophils # (auto) 0.03 K/uL (0.00-0.50); Eosinophils % (auto) 0.6 %; Hematocrit (blood only) 34.1 % (42.0-52.0); Hemoglobin 11.4 g/dl (14.0-18.0); Immature Granulocytes # (auto) 0.02 K/uL (0.01-0.20); Immature Granulocytes % (auto) 0.4 %; Lymphocytes # (auto) 0.51 K/uL (1.20-3.40); Lymphocytes % (auto) 9.6 %; Mean Corpuscular Hemoglobin 31.2 pg (25.0-34.0); Mean Corpuscular Hgb Conc 33.4 g/dL (32.0-36.0); Mean Corpuscular Volume 93.4 fL (80.0-100.0); Mean Platelet Volume 9.3 fL (9.4-12.4); Monocytes # (auto) 0.86 K/uL (0.11-0.59); Monocytes % (auto) 16.2 %; Neutrophils # (auto) 3.86 K/uL (1.40-6.50); Neutrophils % (auto) 72.4 %; Platelet Count 238 K/uL (130-400); RDW Coefficient of Variation 15.4 % (11.5-14.5); RDW Standard Deviation 52.2 fL (36.4-46.3); Red Blood Count 3.65 M/uL (4.70-6.10); White Blood Count 5.32 K/ul (4.8-10.8)
[2023-02-18 21:17] LABS: Albumin Level 3.1 gm/dl (3.4-5.0); BUN Creatinine Ratio 6.8 (10-20); Bilirubin,Total 0.4 mg/dl (0.2-1.0); Calcium 9.1 mg/dl (8.6-10.3); Creatinine Clr Calc Pharmacy 10.9 ml/min; Est GFR (African American) 8.7 ml/min; Est GFR (Non-African American) 7.5 ml/min; Magnesium 2.1 mg/dl (1.7-2.4); Potassium 4.8 mmol/L (3.5-5.1); Total Protein 5.4 gm/dl (6.0-8.3)
[2023-02-18 21:19] LABS: Partial Thromboplastin Ratio 1.1; Partial Thromboplastin Time 30.4 Seconds (21.0-31.0); Prothrombin Time 11.1 Seconds (9.0-12.0)
--- NOTE | 2023-02-18 22:09 | XRay Report ---
SINGLE VIEW CHEST CLINICAL HISTORY: Sepsis. FINDINGS: 2 AP, portable, upright chest radiographs are compared to study dated 12/03/2022 and correla fidel with chest CT dated 06/30/2021.. A left-sided central venous catheter is in place. The heart is en larged noting atherosclerotic calcification of the thoracic aorta. There is pulmonary vascular conges tion. Emphysema and chronic interstitial thickening is similar to previous. Bilateral airspace opacit ies are observed. There is bibasilar scarring/atelectasis. Fibrotic change is noted at the apices. No large pleural effusion or pneumothorax is seen. The skeletal structures are osteopenic. The bony tho rax is grossly intact. IMPRESSION: 1. Cardiomegaly and emphysema with pulmonary vascular congestion. 2. Bilateral airspace opacities likely represent mild pulmonary edema. Correlate clinically for evide nce of a superimposed infectious/inflammatory pneumonitis. Radiographic follow-up to resolution is re commended. 3. No large pleural effusion is identified. ACT 112: Negative or not required by law. Electronically signed by: Jeet Ramirez M.D. 02/18/2023 10:06 PM
--- NOTE | 2023-02-18 22:10 | History & Physical Report ---
Date of Service February 18, 2023 Assessment & Plan (1) COVID-19: Plan: -COVID-19 positive on admission. -CXR bilateral airspace opacity w/ mild pulmonary edema. -No oxygen saturation dips on chart review however placed on 2L nasal cannula. -CBC, CMP grossly unremarkable. Procal 1.11. -Given 1 dose of CTX in the ED. -Will start on dexamethasone 6mg IV daily due to O2 requirement. Will hold off on remdesivir at this time since patient vitals otherwise stable. -Continue home Stiolto respimat, pulmicort respules, incentive spirometry, flutter valve. -Admit to med/tele for monitoring. (2) Abdominal pain determined by examination: Plan: -abdominal pain for about 1 month. Distended on exam. -CT A&P from 02/10, large amount of ascites w/ mesenteric edema, anasarca. -Will obtain US abdomen ascites limited for evaluation if drainable. (3) COPD (chronic obstructive pulmonary disease): Plan: -Continue home COPD inhalers, pulm respule, incentive spirometry, flutter valve as above. (4) ESRD on dialysis: Plan: -MWF dialysis. -Electrolytes WNL. -Due tomorrow for dialysis. -Consulted nephrology for dialysis management. (5) HTN (hypertension): Plan: -continue home amlodipine. (6) Bladder mass: Plan: -Hx of bladder mass seen on CT from 02/10. -Urology plans to do in office cystoscopy based on note [facility] today. (7) Anemia: Plan: -Hgb 11.4, at baseline. -Continue to monitor AM CBC (8) PTSD (post-traumatic stress disorder): Plan: -Noted (9) DVT prophylaxis: Plan: -Heparin 5k BID SQ. (10) Hx of atrial flutter: Plan: -Continue home amiodarone. Plan 72 year old male admitted for COVID-19 infection. History of Present Illness Chief Complaint: Cough, difficulty with breathing Primary Care Provider: Naveed Jerry MD Sisi is a 72 year old male w/ PmHx intracranial hemorrhage s/p cerebral aneurysm repair, ESRD on HD MWF, seizure disorder, atrial fibrillation, history of COPD presenting to the emergency department for 2-3 days of cough and increasing shortness of breath. Patient states that his abdomen has been distended for the past month or so. A few days ago he started to feel more short of breath and developed a deep cough. He also developed abdominal muscular pain that comes about with the deep cough. He denies fevers, chills, chest pain, constipation, diarrhea, dysuria, frequency. In the ED he was found to be positive for COVID-19. WBC 5.32, Hgb 11.4, PT/INR normal, electrolytes WNL, lactate 0.7, mag 2.1, procal 1.11. CXR w/ cardiomegaly and emphysema w/ pulmonary vascular congestion; b/l airspace opacities liekly mild pulmonary edema, correlate clinically for evidence of superimposed infectious/inflammatory pneumonitis. He was put on 2L O2 in the ED, otherwise hemodynamically stable. Allergies Allergy/AdvReac Type Severity Reaction Status Date / Time lisinopril AdvReac Mild COUGH Verified 02/18/23 21:01 Home Medications Medication Instructions Recorded Confirmed Type tiotropium 2.5 mcg-olodaterol 2.5 2 puff inhalation QAM #4 grams 02/18/21 02/18/23 Rx mcg/actuation mist for inhalation (Stiolto Respimat) polyethylene glycol 3350 17 17 g PO BID PRN Constipation 06/30/21 02/18/23 History gram/dose oral powder (Miralax) docusate sodium 100 mg capsule 400 mg PO BID 07/31/21 02/18/23 History (Colace) cinacalcet 30 mg tablet (Sensipar) 30 mg PO QAM 03/27/22 02/18/23 History epinephrine 0.3 mg/0.3 mL 0.3 mg IM Q4H PRN as directed 08/29/22 02/18/23 History injection, auto-injector (EpiPen) ipratropium 0.5 mg-albuterol 3 mg 3 ml inhalation QS PRN Shortness 08/29/22 02/18/23 History (2.5 mg base)/3 mL nebulization Of Breath Or Wheezing soln amlodipine 2.5 mg tablet 2.5 mg PO DAILY #30 tabs 09/06/22 02/18/23 Rx ferric citrate 210 mg iron tablet 420 mg PO TIDWMEAL #1 tab 09/06/22 02/18/23 Rx (Auryxia) amiodarone 200 mg tablet 200 mg PO QPM 11/17/22 02/18/23 History divalproex 500 mg tablet,delayed 500 mg PO QAM 11/17/22 02/18/23 History release loratadine 10 mg tablet (Wal-itin) 10 mg PO Q2D #0 tabs 12/10/22 02/18/23 Rx triamcinolone acetonide 0.1 % 1 applic EXT BID #0 grams 12/10/22 02/18/23 Rx topical ointment vitamin B complex and vitamin C 1 cap PO QAM #0 caps 12/10/22 02/18/23 Rx no.20-folic acid 1 mg capsule (Renal Caps) acetaminophen 325 mg tablet 650 mg PO Q4 PRN Fever Or Pain 01/05/23 02/18/23 History (Tylenol) cholecalciferol (vitamin D3) 125 5,000 unit PO QPM 01/05/23 02/18/23 History mcg (5,000 unit) capsule melatonin 3 mg tablet 15 mg PO HS 01/05/23 02/18/23 History thiamine HCl (vitamin B1) 100 mg 100 mg PO QAM 01/05/23 02/18/23 History tablet bisacodyl 5 mg tablet,delayed 5 mg PO DAILY PRN Constipation 02/18/23 02/18/23 History release (Dulcolax (bisacodyl)) famotidine 40 mg tablet 40 mg PO DAILY 02/18/23 02/18/23 History guaifenesin 1,200 mg tablet, 1,200 mg PO BID PRN Congestion 02/18/23 02/18/23 Hi story extended release 12 hr (Mucinex) hydroxyzine HCl 10 mg tablet 20 mg PO TID PRN .itchy 02/18/23 02/18/23 History nut.tx.imp.renal fxn,lac-reduc 1 ea PO BID 02/18/23 02/18/23 History 0.04 gram-1.8 kcal/mL oral liquid (Suplena Carb Steady) tramadol 50 mg tablet 50 mg PO Q6H PRN .Mod pain 02/18/23 02/18/23 History trazodone 50 mg tablet 50 mg PO HS 02/18/23 02/18/23 History Past Med/Surg History Medical History Abdominal pain determined by examination Alzheimer disease Anemia Ascites Benign neoplasm of skin of nose removed once Benign prostate hyperplasia Bladder mass Bradycardia CCPD (continuous cycling peritoneal dialysis) status port in place left abdomen--dialysis daily at home; second port that has been placed for dialysis. Chronic obstructive pulmonary disease inhaler/nebulizer daily Cirrhosis of liver Confusion COPD (chronic obstructive pulmonary disease) Diverticulosis End-stage renal disease on peritoneal dialysis Gout hx Hemorrhoids "not currently flared" History of marijuana use daily HTN (hypertension) Hx of atrial flutter 06/2021, hospitalized w/pneumonia for almost 3 weeks; dx atrial flutter- currently amiodarone; f/u dr. adkins, dc Hypercalcemia Hypertension Intracranial hemorrhage 2012 Low back pain Myoclonic jerking On home oxygen therapy 2L N/C at hs PAF (paroxysmal atrial fibrillation) Paroxysmal atrial flutter Polycystic kidney disease, adult type (09/03/12) Ruptured middle cerebral artery aneurysm Secondary hyperparathyroidism (of renal origin) Secondary hyperparathyroidism of renal origin Seizure disorder Tremor of both hands Vitamin D deficiency Surgical History History of cerebral aneurysm repair 2012 [facility] Presby--clip in place; clip IS MRI COMPATIBLE History of colonoscopy History of tooth extraction all teeth Family History Mother , age 65 of cancer Cancer Father , age 60 from a tree falling on him No problems noted. Other No family history of adverse response to anesthesia Denies family history of Myocardial infarction Social History Smoking Status: Former smoker Age Started Using Tobacco: 16; Age Quit Using Tobacco: 71; packs per day: 1; Second Hand Exposure: No; Do You Dip or Chew Tobacco: No; Hx Alcohol Use: No Hx Substance Use: No Preferred Language: Occitan Communication Ability: Effective Communication Ability Comment: pt can sign own consent Back Shoe Cutter Required: No Beliefs That Will Affect Care: Spiritual marital status: Single Current Living Situation: [facility] Current Living Situation Comment: lives w/ grandaughter, her & kids How many Children do You have: 1 Other Information That Helps Us Care for You: No Feels Safe at Home: Yes Safety Concerns: Feels Safe At This Time Assistive Devices: Denture - Upper, Denture - Lower, Glasses, Oxygen - Continuous and Walker Review of Systems Review of Systems: As per HPI. Physical Exam Constitutional: WD/WN, vitals as above Eyes: PERRL, conjunctivae normal, anicteric sclerae Respiratory: bilateral expiratory wheezing. Cardiovascular: Rate/Rhythm: regular rate and regular rhythm Heart Sounds: normal S1 and normal S2 Gastrointestinal (Abdomen): BS+, distended, non-tender, pliable Psychiatric: A+Ox3, euthymic affect Results & Data Results & Data Vital Signs (Past 12 Hours) Vital Signs Temp Pulse Resp BP Pulse Ox O2 Del Method O2 Flow Rate 02/18/23 19:15 85 02/18/23 20:31 93 02/18/23 20:30 92 02/18/23 20:20 92 02/18/23 20:14 91 02/18/23 20:00 95 02/18/23 20:00 112/84 02/18/23 19:51 92 02/18/23 19:40 157 H 28 H 93 02/18/23 19:30 84 15 95 02/18/23 19:30 141/78 H 02/18/23 19:20 30 H 02/18/23 19:10 90 14 02/18/23 19:00 88 19 93 02/18/23 19:00 136/74 02/18/23 18:56 89 18 95 02/18/23 18:56 136/80 02/18/23 18:55 90 21 02/18/23 20:28 94 Nasal Cannula 2 02/18/23 18:55 37.3 C 85 22 136/74 95 Room Air Supervising Physician Co-Signing Physician Notes Attending addendum: I have physically seen this patient, have supervised the medical residents activities, and agree with the H&P unless as otherwise noted. Assessment and Plan: COPD exacerbation/COVID-19 infection- Dexamethasone 6 mg IV daily Nasal cannula oxygen, titrate to keep pulse ox 90-92% Continue Stiolto Respimat, Pulmicort rest feels, incentive spirometry and flutter valve Guaifenesin extended release 600 mg p.o. twice daily Add azithromycin 500 mg IV daily ESRD on HD- Wednesday, Wednesday and Wednesday Consult nephrology Bladder mass- Noted on CT on 02/10 Future plans for cystoscopy urology, would be difficult to do now with current pulmonary state Remainder of orders and notations as noted Resident Activity Tracking Resident Involvement: Resident Care Provided Care Provided: Adult Hospital Medicine (3) COPD (chronic obstructive pulmonary disease) COPD type: unspecified COPD Qualified Code(s): J44.9 - Chronic obstructive pulmonary disease, unspecified (5) HTN (hypertension) Hypertension type: unspecified Qualified Code(s): I10 - Essential (primary) hypertension (7) Anemia Anemia type: unspecified type Qualified Code(s): D64.9 - Anemia, unspecified
[2023-02-18] MEDS ORDERED: cefTRIAXone SODIUM 2,000 MG/70 ML BAG IV STA (22:16)
[2023-02-19] MEDS ORDERED: POLYETHYLENE (MIRALAX) 17 GM PACK PO PRN (00:22)
[2023-02-19] MEDS ORDERED: guaiFENesin 600 MG TABCR PO PRN (00:22)
[2023-02-19] MEDS ORDERED: bisacodyL 5 MG TABEC PO PRN (00:22)
[2023-02-19] MEDS ORDERED: ALBUT/IPRATROP 3MG/0.5MG NEB 3 ML VIAL INH PRN (00:22)
[2023-02-19] MEDS ORDERED: ONDANSETRON INJ 2 MG/ML 2 ML VIAL IV PRN (00:22)
[2023-02-19 03:58] LABS: Appearance Urine Clear (Clear); Bacteria Urine Automated Negative (Negative); Bilirubin Urine Negative (Negative); Blood Urine Negative (Negative); Color Urine Yellow; Epithelial Cell Urine Auto >30 /lpf (0-5); Glucose Urine UA Negative (Negative); Ketones Urine Negative (Negative); Leukocyte Esterase Urine Negative (Negative); Nitrite Urine Negative (Negative); RBC Urine Automated 0-4 /hpf (0-4); Specific Gravity Urine 1.014 (1.000-1.030); Urobilinogen Urine Negative (Negative); pH Urine >= 9.0 (4.5-7.5)
[2023-02-19 04:22] LABS: Protein Urine 2+ (Negative)
[2023-02-19 04:43] LABS: Basophils # (auto) 0.04 K/uL (0.00-0.20); Basophils % (auto) 0.8 %; Eosinophils # (auto) 0.07 K/uL (0.00-0.50); Eosinophils % (auto) 1.4 %; Hematocrit (blood only) 34.9 % (42.0-52.0); Hemoglobin 11.5 g/dl (14.0-18.0); Immature Granulocytes # (auto) 0.03 K/uL (0.01-0.20); Immature Granulocytes % (auto) 0.6 %; Lymphocytes # (auto) 0.75 K/uL (1.20-3.40); Lymphocytes % (auto) 14.6 %; Mean Corpuscular Hemoglobin 30.9 pg (25.0-34.0); Mean Corpuscular Volume 93.8 fL (80.0-100.0); Mean Platelet Volume 9.5 fL (9.4-12.4); Monocytes # (auto) 1.05 K/uL (0.11-0.59); Monocytes % (auto) 20.5 %; Neutrophils # (auto) 3.19 K/uL (1.40-6.50); Neutrophils % (auto) 62.1 %; Platelet Count 251 K/uL (130-400); RDW Coefficient of Variation 15.3 % (11.5-14.5); RDW Standard Deviation 53.1 fL (36.4-46.3); Red Blood Count 3.72 M/uL (4.70-6.10); White Blood Count 5.13 K/ul (4.8-10.8)
[2023-02-19 05:02] LABS: BUN Creatinine Ratio 6.7 (10-20); Calcium 9.2 mg/dl (8.6-10.3); Est GFR (African American) 7.8 ml/min; Est GFR (Non-African American) 6.8 ml/min
--- NOTE | 2023-02-19 05:44 | Billing Data ---
Date of Service February 19, 2023 Coding Level of Care Code 14261 INT INP/OBS CARE
--- NOTE | 2023-02-19 06:50 | Ultrasound Report ---
US abdomen ltd ascites CLINICAL HISTORY: Abdominal distention. COMPARISON STUDY: CT of the abdomen and pelvis February 10, 2023. TECHNIQUE: Sonography of the abdomen and pelvis was performed to assess for ascites. FINDINGS: Large volume abdominal and pelvic ascites is noted. IMPRESSION: Large volume ascites within the abdomen and pelvis. ACT 112: Negative or not required by law. Electronically signed by: Yunior Arroyo M.D. 02/19/2023 6:48 AM
[2023-02-19] MEDS: BUDESONIDE 0.5 MG/2 ML VIAL (PULMICORT) NEB SCH ×2 (07:09→19:41)
[2023-02-19] MEDS: amLODIPine BESYLATE 5 MG TAB PO SCH (08:28)
[2023-02-19] MEDS: dexAMETHasone 6 MG in SYRINGE 0 ML IV SCH (08:31)
[2023-02-19] MEDS: DIVALPROEX DELAY RELEASE 500 MG TAB PO SCH (08:31)
[2023-02-19] MEDS: guaiFENesin 600 MG TABCR PO SCH ×2 (08:31→22:13)
[2023-02-19] MEDS: THIAMINE HCL 100 MG TAB PO SCH (08:31)
[2023-02-19] MEDS: LORATADINE 10 MG TAB PO SCH (08:31)
[2023-02-19] MEDS: NEPHROCAPS PO SCH (08:31)
[2023-02-19] MEDS: CINACALCET HCL 30 MG TAB PO SCH (08:31)
[2023-02-19] MEDS: FAMOTIDINE 40 MG TABLET PO SCH (08:31)
[2023-02-19] MEDS: DOCUSATE SODIUM 100 MG CAP PO SCH ×2 (08:32→22:13)
[2023-02-19] MEDS: UMECLIDINIUM/VILANTEROL 62.5/25MCG 7 PUFFS/INHALER INH SCH (08:32)
[2023-02-19] MEDS: HEPARIN SOD 5,000 UNIT/0.5 ML VIAL SQ SCH ×2 (08:38→22:12)
[2023-02-19] MEDS ORDERED: [UNRECOGNIZED DRUG - OTHER] PO SCH (09:00)
[2023-02-19] MEDS ORDERED: NUT TX IMP RENAL FXN LAC REDUC PO SCH (09:00)
[2023-02-19] MEDS: AZITHROMYCIN 500 MG in DEXTROSE 5% 250 ML IV SCH (09:39)
--- NOTE | 2023-02-19 12:38 | Nephrology Consultation ---
Date of Consultation February 19, 2023 Assessment & Plan (1) ESRD on dialysis: MWF HD at [facility]. Rx: 4 hours 180 optiflux 400/800 via TDC. EDW 75.5 kg. Orders for HD entered into EHR today and communicated to dialysis Rx. Medications appropriate for IHD. (2) Anemia: Chronic, stable. Not requiring PATRICK therapy. (3) COVID-19: Maintained on dexamethasone. Symptomatically improving. (4) Bladder mass: Urology evaluation scheduled. (5) Cirrhosis of liver: Imaging reviewed. (6) Ascites: May benefit from diagnostic/therapeutic paracentesis. Will defer to hospitalist. History of Present Illness Reason for Consultation: ESRD Requesting Physician: Solomon Espinosa MD Attending Physician: Solomon Espinosa MD History of Present Illness Mr. 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 He is maintained on HD at [facility] under the care of Dr. Romo. Sisi dialyzes MWF. He completed his last treatment on Wednesday without complications. Outpatient Rx: 4 hours on a 180 optiflux at Qb 400 Qd 800, 2 K 35 HCO3. Sisi dialyzes via at L IJ catheter. EDW has been 75.5 kg. He left HD at 77.8 kg on Wednesday s/p UF 2.3 L. Sisi was previously on PD. He transitioned modality due to signs of progressive dementia and difficulty completing dialysis treatments at home. He has been tolerating HD well. Since PD catheter was removed, he has had persistent abdominal distention from ascites. He also has evidence of concerning bladder mass noted on CT. He is scheduled for outpatient cystoscopy with urology. Medical history also notable for h/o intracranial hemorrhage due to brain aneurysm, hypertension, gout, BPH, atrial fibrillation, and COPD. He presented to the ER with cough and chest congestion. Sisi tested positive for COVID. He is being managed with dexamethasone. The patient was seen and evaluated in the ER this morning. Hemodialysis was coordinated. Allergies Allergy/AdvReac Type Severity Reaction Status Date / Time lisinopril AdvReac Mild COUGH Verified 02/18/23 21:01 Home Medications Medication Instructions Recorded Confirmed Type tiotropium 2.5 mcg-olodaterol 2.5 2 puff inhalation QAM #4 grams 02/18/21 02/18/23 Rx mcg/actuation mist for inhalation (Stiolto Respimat) polyethylene glycol 3350 17 17 g PO BID PRN Constipation 06/30/21 02/18/23 History gram/dose oral powder (Miralax) docusate sodium 100 mg capsule 400 mg PO BID 07/31/21 02/18/23 History (Colace) cinacalcet 30 mg tablet (Sensipar) 30 mg PO QAM 03/27/22 02/18/23 History epinephrine 0.3 mg/0.3 mL 0.3 mg IM Q4H PRN as directed 08/29/22 02/18/23 History injection, auto-injector (EpiPen) ipratropium 0.5 mg-albuterol 3 mg 3 ml inhalation QS PRN Shortness 08/29/22 02/18/23 History (2.5 mg base)/3 mL nebulization Of Breath Or Wheezing soln amlodipine 2.5 mg tablet 2.5 mg PO DAILY #30 tabs 09/06/22 02/18/23 Rx ferric citrate 210 mg iron tablet 420 mg PO TIDWMEAL #1 tab 09/06/22 02/18/23 Rx (Auryxia) amiodarone 200 mg tablet 200 mg PO QPM 11/17/22 02/18/23 History divalproex 500 mg tablet,delayed 500 mg PO QAM 11/17/22 02/18/23 History release loratadine 10 mg tablet (Wal-itin) 10 mg PO Q2D #0 tabs 12/10/22 02/18/23 Rx triamcinolone acetonide 0.1 % 1 applic EXT BID #0 grams 12/10/22 02/18/23 Rx topical ointment vitamin B complex and vitamin C 1 cap PO QAM #0 caps 12/10/22 02/18/23 Rx no.20-folic acid 1 mg capsule (Renal Caps) acetaminophen 325 mg tablet 650 mg PO Q4 PRN Fever Or Pain 01/05/23 02/18/23 History (Tylenol) cholecalciferol (vitamin D3) 125 5,000 unit PO QPM 01/05/23 02/18/23 History mcg (5,000 unit) capsule melatonin 3 mg tablet 15 mg PO HS 01/05/23 02/18/23 History thiamine HCl (vitamin B1) 100 mg 100 mg PO QAM 01/05/23 02/18/23 History tablet bisacodyl 5 mg tablet,delayed 5 mg PO DAILY PRN Constipation 02/18/23 02/18/23 History release (Dulcolax (bisacodyl)) famotidine 40 mg tablet 40 mg PO DAILY 02/18/23 02/18/23 History guaifenesin 1,200 mg tablet, 1,200 mg PO BID PRN Congestion 02/18/23 02/18/23 History extended release 12 hr (Mucinex) hydroxyzine HCl 10 mg tablet 20 mg PO TID PRN .itchy 02/18/23 02/18/23 History nut.tx.imp.renal fxn,lac-reduc 1 ea PO BID 02/18/23 02/18/23 History 0.04 gram-1.8 kcal/mL oral liquid (Suplena Carb Steady) tramadol 50 mg tablet 50 mg PO Q6H PRN .Mod pain 02/18/23 02/18/23 History trazodone 50 mg tablet 50 mg PO HS 02/18/23 02/18/23 History Patient History Medical History (Updated 02/19/23 @ 12:49 by Pankaj Cordon DO) Abdominal pain determined by examination Alzheimer disease Anemia Ascites Benign neoplasm of skin of nose removed once Benign prostate hyperplasia Bladder mass Bradycardia CCPD (continuous cycling peritoneal dialysis) status port in place left abdomen--dialysis daily at home; second port that has been placed for dialysis. Chronic obstructive pulmonary disease inhaler/nebulizer daily Cirrhosis of liver Confusion COPD (chronic obstructive pulmonary disease) Diverticulosis Gout hx Hemorrhoids "not currently flared" History of marijuana use daily HTN (hypertension) Hx of atrial flutter 06/2021, hospitalized w/pneumonia for almost 3 weeks; dx atrial flutter- currently amiodarone; f/u dr. adkins, archana Hypercalcemia Hypertension Intracranial hemorrhage 2012 Low back pain Myoclonic jerking On home oxygen therapy 2L N/C at hs PAF (paroxysmal atrial fibrillation) Paroxysmal atrial flutter Polycystic kidney disease, adult type (09/03/12) Ruptured middle cerebral artery aneurysm Secondary hyperparathyroidism (of renal origin) Secondary hyperparathyroidism of renal origin Seizure disorder Tremor of both hands Vitamin D deficiency Surgical History History of cerebral aneurysm repair 2012 [facility] [place]--clip in place; clip IS MRI COMPATIBLE History of colonoscopy History of tooth extraction all teeth Family History Mother , age 65 of cancer Cancer Father , age 60 from a tree falling on him No problems noted. Other No family history of adverse response to anesthesia Denies family history of Myocardial infarction Social History Smoking Status: Former smoker Age Started Using Tobacco: 16; Age Quit Using Tobacco: 71; packs per day: 1; Second Hand Exposure: No; Do You Dip or Chew Tobacco: No; Hx Alcohol Use: No Hx Substance Use: No Preferred Language: Vietnamese Communication Ability: Effective Communication Ability Comment: pt can sign own consent Superintendent Required: No Beliefs That Will Affect Care: Spiritual marital status: Single Current Living Situation: Long Term Current Living Situation Comment: lives w/ grandautoña, her & kids How many Children do You have: 1 Other Information That Helps Us Care for You: No Feels Safe at Home: Yes Safety Concerns: Feels Safe At This Time Assistive Devices: Oxygen - Continuous and Walker Review of Systems Review of Systems: All systems reviewed & are unremarkable except as noted in HPI & below Constitutional: + fatigue; no fever and no chills Respiratory: + cough, + change in sputum and + dyspnea Physical Exam Constitutional: WD/WN, vitals as above + thin and + frail appearing; no acute distress Eyes: + anicteric sclerae ENMT: Mouth: + dry oral mucous membranes Neck: normal visual inspection Respiratory: no respiratory distress Auscultation: lungs clear to auscultation bilaterally and + rhonchi Cardiovascular: Rate/Rhythm: regular rate and regular rhythm Heart Sounds: normal S1 and normal S2 Extremities: + pedal edema and + vascular access device (left IJ TDC.); no edema Musculoskeletal: Extremities: extremities normal to inspection Skin: no rashes, warm and dry Neurologic: no focal motor deficits Psychiatric: Orientation: alert and oriented x 3 Affect: euthymic affect Results & Data Vital Signs (Past 12 Hours) Vital Signs Temp Pulse Pulse Resp BP Pulse Ox Pulse Ox 02/19/23 11:32 83 22 147/98 H 95 02/19/23 07:09 78 20 96 02/19/23 07:06 82 02/19/23 03:48 88 22 159/85 H 93 02/19/23 03:25 02/19/23 03:24 95 02/19/23 02:40 37.0 C 84 16 153/88 H 92 O2 Del Method O2 Del Method O2 Flow Rate O2 Flow Rate 02/19/23 11:32 Nasal Cannula 02/19/23 07:09 Nasal Cannula 4 02/19/23 07:06 02/19/23 03:48 Nasal Cannula 4 02/19/23 03:25 Nasal Cannula 3 02/19/23 03:24 Nasal Cannula 3 02/19/23 02:40 Nasal Cannula 3 Laboratory Results Laboratory Results - last 24 hr 02/18/23 02/18/23 02/18/23 20:20 20:20 20:20 WBC 5.32 RBC 3.65 L Hgb 11.4 L Hct 34.1 L MCV 93.4 MCH 31.2 MCHC 33.4 RDW Std Deviation 52.2 H RDW Coeff of Giovana 15.4 H Plt Count 238 MPV 9.3 L Immature Gran % (Auto) 0.4 Neut % (Auto) 72.4 Lymph % (Auto) 9.6 Charles % (Auto) 16.2 Eos % (Auto) 0.6 Baso % (Auto) 0.8 Neut # (Auto) 3.86 Lymph # (Auto) 0.51 L [place] # (Auto) 0.86 H Eos # (Auto) 0.03 Baso # (Auto) 0.04 Immature Gran # (Auto) 0.02 PT 11.1 INR 1.0 APTT 30.4 PTT Ratio 1.1 Sodium 137 Potassium 4.8 Chloride 102 Carbon Dioxide 26 Anion Gap 9 BUN 46 H Creatinine 6.72 H* Est Cr Clr Drug Dosing 10.9 Est GFR ( Amer) 8.7 Est GFR (Non-Af Amer) 7.5 BUN/Creatinine Ratio 6.8 L Glucose 112 H Lactate Calcium 9.1 Magnesium 2.1 Total Bilirubin 0.4 Direct Bilirubin 0.0 AST 16 ALT 10 Alkaline Phosphatase 50 Total Protein 5.4 L Albumin 3.1 L Procalcitonin Urine Color Urine Appearance Urine pH Ur Specific [place] Urine Protein Urine Glucose (UA) Urine Ketones Urine Blood Urine Nitrite Urine Bilirubin Urine Urobilinogen Ur Leukocyte Esterase Urine WBC (Auto) Urine RBC (Auto) U Hyaline Cast (Auto) U Epithel Cells (Auto) Urine Bacteria (Auto) Nasal Screen MRSA (PCR) SARS-CoV-2, RNA, NAAT 02/18/23 02/18/23 02/18/23 20:20 20:20 20:52 WBC RBC Hgb Hct MCV MCH MCHC RDW Std Deviation RDW Coeff of Giovana Plt Count MPV Immature Gran % (Auto) Neut % (Auto) Lymph % (Auto) Charles % (Auto) Eos % (Auto) Baso % (Auto) Neut # (Auto) Lymph # (Auto) Charles # (Auto) Eos # (Auto) Baso # (Auto) Immature Gran # (Auto) PT INR APTT PTT Ratio Sodium Potassium Chloride Carbon Dioxide Anion Gap BUN Creatinine Est Cr Clr Drug Dosing Est GFR ( Amer) Est GFR (Non-Af Amer) BUN/Creatinine Ratio Glucose Lactate 0.7 Calcium Magnesium Total Bilirubin Direct Bilirubin AST ALT Alkaline Phosphatase Total Protein Albumin Procalcitonin 1.11 H Urine Color Urine Appearance Urine pH Ur Specific [place] Urine Protein Urine Glucose (UA) Urine Ketones Urine Blood Urine Nitrite Urine Bilirubin Urine Urobilinogen Ur Leukocyte Esterase Urine WBC (Auto) Urine RBC (Auto) U Hyaline Cast (Auto) U Epithel Cells (Auto) Urine Bacteria (Auto) Nasal Screen MRSA (PCR) SARS-CoV-2, RNA, NAAT POSITIVE A* 02/19/23 02/19/23 02/19/23 03:12 03:40 03:59 WBC 5.13 RBC 3.72 L Hgb 11.5 L Hct 34.9 L MCV 93.8 MCH 30.9 MCHC 33.0 RDW Std Deviation 53.1 H RDW Coeff of Giovana 15.3 H Plt Count 251 MPV 9.5 Immature Gran % (Auto) 0.6 Neut % (Auto) 62.1 Lymph % (Auto) 14.6 Charles % (Auto) 20.5 Eos % (Auto) 1.4 Baso % (Auto) 0.8 Neut # (Auto) 3.19 Lymph # (Auto) 0.75 L [place] # (Auto) 1.05 H Eos # (Auto) 0.07 Baso # (Auto) 0.04 Immature Gran # (Auto) 0.03 PT INR APTT PTT Ratio Sodium Potassium Chloride Carbon Dioxide Anion Gap BUN Creatinine Est Cr Clr Drug Dosing Est GFR ( Amer) Est GFR (Non-Af Amer) BUN/Creatinine Ratio Glucose Lactate Calcium Magnesium Total Bilirubin Direct Bilirubin AST ALT Alkaline Phosphatase Total Protein Albumin Procalcitonin Urine Color Yellow Urine Appearance Clear Urine pH >= 9.0 H Ur Specific [place] 1.014 Urine Protein 2+ H Urine Glucose (UA) Negative Urine Ketones Negative Urine Blood Negative Urine Nitrite Negative Urine Bilirubin Negative Urine Urobilinogen Negative Ur Leukocyte Esterase Negative Urine WBC (Auto) 5-10 H Urine RBC (Auto) 0-4 U Hyaline Cast (Auto) 1-5 U Epithel Cells (Auto) >30 H Urine Bacteria (Auto) Negative Nasal Screen MRSA (PCR) Positive A SARS-CoV-2, RNA, NAAT 02/19/23 03:59 WBC RBC Hgb Hct MCV MCH MCHC RDW Std Deviation RDW Coeff of Giovana Plt Count MPV Immature Gran % (Auto) Neut % (Auto) Lymph % (Auto) [place] % (Auto) Eos % (Auto) Baso % (Auto) Neut # (Auto) Lymph # (Auto) Charles # (Auto) Eos # (Auto) Baso # (Auto) Immature Gran # (Auto) PT INR APTT PTT Ratio Sodium 136 Potassium 5.0 Chloride 101 Carbon Dioxide 25 Anion Gap 10 BUN 49 H Creatinine 7.30 H* D Est Cr Clr Drug Dosing 10.0 Est GFR ( Amer) 7.8 Est GFR (Non-Af Amer) 6.8 BUN/Creatinine Ratio 6.7 L Glucose 96 Lactate Calcium 9.2 Magnesium Total Bilirubin Direct Bilirubin AST ALT Alkaline Phosphatase Total Protein Albumin Procalcitonin Urine Color Urine Appearance Urine pH Ur Specific [place] Urine Protein Urine Glucose (UA) Urine Ketones Urine Blood Urine Nitrite Urine Bilirubin Urine Urobilinogen Ur Leukocyte Esterase Urine WBC (Auto) Urine RBC (Auto) U Hyaline Cast (Auto) U Epithel Cells (Auto) Urine Bacteria (Auto) Nasal Screen MRSA (PCR) SARS-CoV-2, RNA, NAAT Diagnostic Findings US abdomen ltd ascites CLINICAL HISTORY: Abdominal distention. COMPARISON STUDY: CT of the abdomen and pelvis February 10, 2023. TECHNIQUE: Sonography of the abdomen and pelvis was performed to assess for ascites. FINDINGS: Large volume abdominal and pelvic ascites is noted. IMPRESSION: Large volume ascites within the abdomen and pelvis. SINGLE VIEW CHEST CLINICAL HISTORY: Sepsis. FINDINGS: 2 AP, portable, upright chest radiographs are compared to study dated 12/03/2022 and correlated with chest CT dated 06/30/2021.. A left-sided central venous catheter is in place. The heart is enlarged noting atherosclerotic calcification of the thoracic aorta. There is pulmonary vascular congestion. Emphysema and chronic interstitial thickening is similar to previous. Bilateral airspace opacities are observed. There is bibasilar scarring/atelectasis. Fibrotic change is noted at the apices. No large pleural effusion or pneumothorax is seen. The skeletal structures are osteopenic. The bony thorax is grossly intact. IMPRESSION: 1. Cardiomegaly and emphysema with pulmonary vascular congestion. 2. Bilateral airspace opacities likely represent mild pulmonary edema. Correlate clinically for evidence of a superimposed infectious/inflammatory pneumonitis. Radiographic follow-up to resolution is recommended. 3. No large pleural effusion is identified. PG Care Time/CCT Total # of Minutes Spent Total Time Spent with Patient: Total time spent is greater than 50% in coordination of care (as documented) at patient's floor/unit and/or counseling patient: Coding Level of Care Code 52303 IN/OBS CONSULT LVL 4,60M Diagnoses ESRD on dialysis N18.6; Z99.2 Anemia D64.9 Anemia type: unspecified type COVID-19 U07.1 Bladder mass N32.89 Cirrhosis of liver K74.60 Ascites R18.8 (2) Anemia Anemia type: unspecified type Qualified Code(s): D64.9 - Anemia, unspecified
[2023-02-19] MEDS ORDERED: HEPARIN SOD (PORCINE) 1000 UNIT/ML IV ONE (12:51)
[2023-02-19] MEDS: CHOLECALCIFEROL 5,000 UNITS 125 MCG TAB PO SCH (18:11)
--- NOTE | 2023-02-19 18:22 | Hospitalist Progress Note ---
Date of Service February 19, 2023 Assessment & Plan (1) COVID-19: Plan: -COVID-19 positive on admission. -CXR bilateral airspace opacity w/ mild pulmonary edema. -No oxygen saturation dips on chart review however placed on 2L nasal cannula. -CBC, CMP grossly unremarkable. Procal 1.11. Continue dexamethasone 6mg IV daily due to O2 requirement. Will hold off on remdesivir at this time since patient vitals otherwise stable. -Continue home Stiolto respimat, pulmicort respules, incentive spirometry, flutter valve. -Admit to med/tele for monitoring. (2) Abdominal pain determined by examination: Plan: -abdominal pain for about 1 month. Distended on exam. -CT A&P from 02/10, large amount of ascites w/ mesenteric edema, anasarca. -US abdomen showed large volume ascites. Consider paracentesis on Wednesday if the patient is still here (3) COPD (chronic obstructive pulmonary disease): Plan: -Continue home COPD inhalers, pulm respule, incentive spirometry, flutter valve as above. (4) ESRD on dialysis: Plan: -MWF dialysis. -Electrolytes WNL. - nephrology on board for dialysis management. (5) HTN (hypertension): Plan: -continue home amlodipine. (6) Bladder mass: Plan: -Hx of bladder mass seen on CT from 02/10. -Urology plans to do in office cystoscopy based on note from 02/18. (7) Anemia: Plan: -Hgb 11.4, at baseline. -Continue to monitor AM CBC (8) PTSD (post-traumatic stress disorder): Plan: -Noted (9) DVT prophylaxis: Plan: -Heparin 5k BID SQ. (10) Hx of atrial flutter: Plan: -Continue home amiodarone. Plan 72 year old male admitted for COVID-19 infection. Admission and Anticipated Discharge Date Admission Date: February 18, 2023 Subjective patient feels better overall. Less short of breath. Coughing less. using 4 L of oxygen. Does not use any oxygen at home. Review of Systems Review of Systems: All systems reviewed & are unremarkable except as noted in Subjective Physical Exam Physical Exam: General: Awake, conversant Heart: S1, S2/regular rate and rhythm, no murmur rubs or gallops Lungs: Clear to auscultation bilaterally. Normal effort Abdomen: Soft/nontender/ distended. No hepatosplenomegaly Extremities: No clubbing/cyanosis. No edema Behavior: Appropriate, cooperative Results & Data Results & Data Vital Signs (Past 12 Hours) Vital Signs Temp Pulse Pulse Resp BP BP Pulse Ox 02/19/23 16:55 86 167/84 H 02/19/23 16:55 36.5 C 86 167/84 H 02/19/23 16:51 36.5 C 87 162/89 H 02/19/23 16:45 86 153/83 H 02/19/23 16:30 87 159/84 H 02/19/23 16:11 89 160/86 H 02/19/23 15:12 82 02/19/23 16:00 88 154/86 H 02/19/23 15:45 89 156/75 H 02/19/23 15:30 88 155/91 H 02/19/23 15:15 86 165/85 H 02/19/23 15:00 71 156/90 H 02/19/23 14:45 80 164/85 H 02/19/23 12:30 36.5 C 83 18 171/84 H 97 02/19/23 13:00 79 02/19/23 14:16 82 165/75 H 02/19/23 14:30 82 174/91 H 02/19/23 14:00 82 162/86 H 02/19/23 13:50 83 171/87 H 02/19/23 13:30 80 138/90 02/19/23 13:20 36.5 C 82 02/19/23 13:20 80 140/90 02/19/23 13:15 36.5 C 82 142/99 H 02/19/23 11:32 83 22 147/98 H 95 02/19/23 07:09 78 20 96 02/19/23 07:06 82 O2 Del Method O2 Flow Rate 02/19/23 16:55 02/19/23 16:55 02/19/23 16:51 02/19/23 16:45 02/19/23 16:30 02/19/23 16:11 02/19/23 15:12 02/19/23 16:00 02/19/23 15:45 02/19/23 15:30 02/19/23 15:15 02/19/23 15:00 02/19/23 14:45 02/19/23 12:30 Nasal Cannula 4 02/19/23 13:00 02/19/23 14:16 02/19/23 14:30 02/19/23 14:00 02/19/23 13:50 02/19/23 13:30 02/19/23 13:20 02/19/23 13:20 02/19/23 13:15 02/19/23 11:32 Nasal Cannula 02/19/23 07:09 Nasal Cannula 4 02/19/23 07:06 Laboratory Results Abnormal lab results 02/18/23 02/18/23 02/18/23 Range/Units 20:20 20:20 20:20 RBC 3.65 L (4.70-6.10) M/uL Hgb 11.4 L (14.0-18.0) g/dl Hct 34.1 L (42.0-52.0) % RDW Std Deviation 52.2 H (36.4-46.3) fL RDW Coeff of Giovana 15.4 H (11.5-14.5) % MPV 9.3 L (9.4-12.4) fL Lymph # (Auto) 0.51 L (1.20-3.40) K/uL [place] # (Auto) 0.86 H (0.11-0.59) K/uL BUN 46 H (6-23) mg/dl Creatinine 6.72 H* (0.6-1.4) mg/dl BUN/Creatinine Ratio 6.8 L (10-20) Glucose 112 H (70-99(Fasting)) mg/dl Total Protein 5.4 L (6.0-8.3) gm/dl Albumin 3.1 L (3.4-5.0) gm/dl Procalcitonin 1.11 H (0-0.5) ng/ml Urine pH (4.5-7.5) Urine Protein (Negative) Urine WBC (Auto) (0-5) /hpf U Epithel Cells (Auto) (0-5) /lpf Nasal Screen MRSA (PCR) (Negative) SARS-CoV-2, RNA, NAAT (NEGATIVE) 02/18/23 02/19/23 02/19/23 Range/Units 20:52 03:12 03:40 RBC (4.70-6.10) M/uL Hgb (14.0-18.0) g/dl Hct (42.0-52.0) % RDW Std Deviation (36.4-46.3) fL RDW Coeff of Giovana (11.5-14.5) % MPV (9.4-12.4) fL Lymph # (Auto) (1.20-3.40) K/uL [place] # (Auto) (0.11-0.59) K/uL BUN (6-23) mg/dl Creatinine (0.6-1.4) mg/dl BUN/Creatinine Ratio (10-20) Glucose (70-99(Fasting)) mg/dl Total Protein (6.0-8.3) gm/dl Albumin (3.4-5.0) gm/dl Procalcitonin (0-0.5) ng/ml Urine pH >= 9.0 H (4.5-7.5) Urine Protein 2+ H (Negative) Urine WBC (Auto) 5-10 H (0-5) /hpf U Epithel Cells (Auto) >30 H (0-5) /lpf Nasal Screen MRSA (PCR) Positive A (Negative) SARS-CoV-2, RNA, NAAT POSITIVE A* (NEGATIVE) 02/19/23 02/19/23 Range/Units 03:59 03:59 RBC 3.72 L (4.70-6.10) M/uL Hgb 11.5 L (14.0-18.0) g/dl Hct 34.9 L (42.0-52.0) % RDW Std Deviation 53.1 H (36.4-46.3) fL RDW Coeff of Giovana 15.3 H (11.5-14.5) % MPV (9.4-12.4) fL Lymph # (Auto) 0.75 L (1.20-3.40) K/uL [place] # (Auto) 1.05 H (0.11-0.59) K/uL BUN 49 H (6-23) mg/dl Creatinine 7.30 H* D (0.6-1.4) mg/dl BUN/Creatinine Ratio 6.7 L (10-20) Glucose (70-99(Fasting)) mg/dl Total Protein (6.0-8.3) gm/dl Albumin (3.4-5.0) gm/dl Procalcitonin (0-0.5) ng/ml Urine pH (4.5-7.5) Urine Protein (Negative) Urine WBC (Auto) (0-5) /hpf U Epithel Cells (Auto) (0-5) /lpf Nasal Screen MRSA (PCR) (Negative) SARS-CoV-2, RNA, NAAT (NEGATIVE) Diagnostic Findings Chest X-Ray 02/18/23 19:46 SINGLE VIEW CHEST CLINICAL HISTORY: Sepsis. FINDINGS: 2 AP, portable, upright chest radiographs are compared to study dated 12/03/2022 and correlated with chest CT dated 06/30/2021.. A left-sided central venous catheter is in place. The heart is enlarged noting atherosclerotic calcification of the thoracic aorta. There is pulmonary vascular congestion. Emphysema and chronic interstitial thickening is similar to previous. Bilateral airspace opacities are observed. There is bibasilar scarring/atelectasis. F ibrotic change is noted at the apices. No large pleural effusion or pneumothorax is seen. The skeletal structures are osteopenic. The bony thorax is grossly intact. IMPRESSION: 1. Cardiomegaly and emphysema with pulmonary vascular congestion. 2. Bilateral airspace opacities likely represent mild pulmonary edema. Correlate clinically for evidence of a superimposed infectious/inflammatory pneumonitis. Radiographic follow-up to resolution is recommended. 3. No large pleural effusion is identified. ACT 112: Negative or not required by law. Electronically signed by: Jeet Ramirez M.D. 02/18/2023 10:06 PM Abdomen Ultrasound 02/19/23 00:22 abdomen ltd ascites CLINICAL HISTORY: Abdominal distention. COMPARISON STUDY: CT of the abdomen and pelvis February 10, 2023. TECHNIQUE: Sonography of the abdomen and pelvis was performed to assess for ascites. FINDINGS: Large volume abdominal and pelvic ascites is noted. IMPRESSION: Large volume ascites within the abdomen and pelvis. ACT 112: Negative or not required by law. Electronically signed by: Yunior Arroyo M.D. 02/19/2023 6:48 AM PG Care Time/CCT Total # of Minutes Spent Total Time Spent with Patient: Total time spent is greater than 50% in coordination of care (as documented) at patient's floor/unit and/or counseling patient: Coding Level of Care Code 43383 SUB INP/OBS CARE MIN Diagnoses COVID-19 U07.1 Abdominal pain determined by examination R10.9 COPD (chronic obstructive pulmonary disease) J44.9 COPD type: unspecified COPD ESRD on dialysis N18.6; Z99.2 HTN (hypertension) I10 Hypertension type: unspecified Bladder mass N32.89 Anemia D64.9 Anemia type: unspecified type PTSD (post-traumatic stress disorder) F43.10 DVT prophylaxis Z29.9 Hx of atrial flutter Z86.79 (3) COPD (chronic obstructive pulmonary disease) COPD type: unspecified COPD Qualified Code(s): J44.9 - Chronic obstructive pulmonary disease, unspecified (5) HTN (hypertension) Hypertension type: unspecified Qualified Code(s): I10 - Essential (primary) hypertension (7) Anemia Anemia type: unspecified type Qualified Code(s): D64.9 - Anemia, unspecified
[2023-02-19] MEDS: MELATONIN 3 MG TAB PO SCH (22:13)
[2023-02-19] MEDS: traZODone HCL 50 MG TAB PO SCH (22:13)
[2023-02-19] MEDS: AMIODARONE 200 MG TAB PO SCH (22:13)
[2023-02-20] MEDS: BUDESONIDE 0.5 MG/2 ML VIAL (PULMICORT) NEB SCH ×2 (07:22→18:54)
--- NOTE | 2023-02-20 08:54 | Nephrology Progress Note ---
Date of Service February 20, 2023 Assessment & Plan (1) ESRD on dialysis: Plan: * Volume status and electrolyte balance are acceptable. No acute indication for HD today * Outpatient HD Rx? MWF HD at [facility] - 4 hours 180 optiflux 400/800 via L IJ TCC. EDW 75.5 kg (2) Anemia: Plan: * Chronic, stable. Not requiring PATRICK therapy. (3) COVID-19: Plan: * Maintained on dexamethasone. Symptomatically improving. (4) Bladder mass: Plan: * Urology evaluation scheduled. (5) Cirrhosis of liver: Plan: * Large volume of ascites on CT. Primary service considering paracentesis on Wednesday Admission and Anticipated Discharge Date Admission Date: February 18, 2023 Subjective Mr. Redmond was evaluated in his hospital room this morning. He was dialyzed yesterday without complication. Mr. Redmond reports that he is breathing comfortably on RA. He voiced no new medical concerns. Review of Systems Constitutional: no fever Eyes: no problem reported Ear, Nose, Mouth, Throat: no problem reported Respiratory: + dyspnea on exertion; no cough Cardiovascular: no chest pain Gastrointestinal: no abdominal pain, no vomiting and no diarrhea/loose stools Physical Exam Constitutional: not in distress Eyes: PERRL, conjunctivae normal, anicteric sclerae ENMT: external ear and nose normal, oropharynx normal Neck: trachea midline, no thyromegaly L IJ TCC w/ clean, dry dressing Respiratory: Auscultation: + rales Cardiovascular: RRR, no murmur, no edema Gastrointestinal (Abdomen): normal bowel sounds, soft, nontender, no hepatosplenomegaly Neurologic: Speech / Cognition: normal speech and normal cognition Results & Data Vital Signs (Past 12 Hours) Vital Signs Temp Pulse Resp BP Pulse Ox O2 Del Method O2 Flow Rate 02/20/23 07:42 36.6 C 80 21 158/80 H 93 Room Air 02/20/23 07:23 76 18 94 Room Air 2 02/20/23 04:03 36.7 C 76 16 149/76 H 91 Nasal Cannula 4 02/19/23 23:42 36.7 C 112 H 18 157/90 H 96 Nasal Cannula 4 02/19/23 23:04 Room Air Laboratory Results Laboratory Tests 02/20/23 02/20/23 08:35 08:35 WBC 4.39 L Hgb 11.5 L Hct 36.2 L Plt Count 238 Sodium 139 Potassium 4.6 Chloride 103 Carbon Dioxide 27 BUN 44 H Creatinine 6.43 H* D Glucose 126 H Calcium 9.4 PG Care Time/CCT Total # of Minutes Spent Total Time Spent with Patient: Total time spent is greater than 50% in coordination of care (as documented) at patient's floor/unit and/or counseling patient: Coding Level of Care Code 85875 SUB INP/OBS CARE 3/50MIN Diagnoses ESRD on dialysis N18.6; Z99.2 Anemia D64.9 Anemia type: unspecified type COVID-19 U07.1 Bladder mass N32.89 Cirrhosis of liver K74.60 (2) Anemia Anemia type: unspecified type Qualified Code(s): D64.9 - Anemia, unspecified
[2023-02-20 09:11] LABS: Basophils # (auto) 0.04 K/uL (0.00-0.20); Basophils % (auto) 0.9 %; Eosinophils # (auto) 0.17 K/uL (0.00-0.50); Eosinophils % (auto) 3.9 %; Hematocrit (blood only) 36.2 % (42.0-52.0); Hemoglobin 11.5 g/dl (14.0-18.0); Immature Granulocytes # (auto) 0.02 K/uL (0.01-0.20); Immature Granulocytes % (auto) 0.5 %; Lymphocytes # (auto) 0.79 K/uL (1.20-3.40); Mean Corpuscular Hemoglobin 30.7 pg (25.0-34.0); Mean Corpuscular Hgb Conc 31.8 g/dL (32.0-36.0); Mean Corpuscular Volume 96.5 fL (80.0-100.0); Mean Platelet Volume 9.9 fL (9.4-12.4); Monocytes # (auto) 0.62 K/uL (0.11-0.59); Monocytes % (auto) 14.1 %; Neutrophils # (auto) 2.75 K/uL (1.40-6.50); Neutrophils % (auto) 62.6 %; Platelet Count 238 K/uL (130-400); RDW Coefficient of Variation 15.3 % (11.5-14.5); RDW Standard Deviation 53.9 fL (36.4-46.3); Red Blood Count 3.75 M/uL (4.70-6.10); White Blood Count 4.39 K/ul (4.8-10.8)
[2023-02-20] MEDS: dexAMETHasone 6 MG in SYRINGE 0 ML IV SCH (09:41)
[2023-02-20] MEDS: guaiFENesin 600 MG TABCR PO SCH ×2 (09:46→20:43)
[2023-02-20] MEDS: NEPHROCAPS PO SCH (09:46)
[2023-02-20] MEDS: DIVALPROEX DELAY RELEASE 500 MG TAB PO SCH (09:46)
[2023-02-20] MEDS: FAMOTIDINE 40 MG TABLET PO SCH (09:47)
[2023-02-20] MEDS: THIAMINE HCL 100 MG TAB PO SCH (09:47)
[2023-02-20] MEDS: CINACALCET HCL 30 MG TAB PO SCH (09:47)
[2023-02-20] MEDS: amLODIPine BESYLATE 5 MG TAB PO SCH (09:48)
[2023-02-20] MEDS: UMECLIDINIUM/VILANTEROL 62.5/25MCG 7 PUFFS/INHALER INH SCH (09:49)
[2023-02-20 09:50] LABS: Calcium 9.4 mg/dl (8.6-10.3); Potassium 4.6 mmol/L (3.5-5.1)
[2023-02-20] MEDS: DOCUSATE SODIUM 100 MG CAP PO SCH ×2 (09:51→20:51)
[2023-02-20 09:58] LABS: BUN Creatinine Ratio 6.8 (10-20); Creatinine Clr Calc Pharmacy 11.4 ml/min; Est GFR (African American) 9.1 ml/min; Est GFR (Non-African American) 7.9 ml/min
[2023-02-20] MEDS: AZITHROMYCIN 500 MG in DEXTROSE 5% 250 ML IV SCH (10:07)
[2023-02-20] MEDS: HEPARIN SOD 5,000 UNIT/0.5 ML VIAL SQ SCH ×2 (10:10→20:45)
--- NOTE | 2023-02-20 14:30 | Hospitalist Progress Note ---
Date of Service February 20, 2023 Assessment & Plan (1) COVID-19: Plan: - Pneumonia due to COVID 19 -COVID-19 positive on admission. -CXR bilateral airspace opacity w/ mild pulmonary edema. -No oxygen saturation dips on chart review however placed on 2L nasal cannula. -CBC, CMP grossly unremarkable. Procal 1.11. Continue dexamethasone 6mg IV daily due to O2 requirement. Will hold off on remdesivir at this time since patient vitals otherwise stable. -Continue home Stiolto respimat, pulmicort respules, incentive spirometry, flutter valve. clinically improving with improving shortness of breath, cough (2) Abdominal pain determined by examination: Plan: - abdominal pain is mostly cough induced. Less likely musculoskeletal. Ultrasound abdomen showed large volume ascites. Will consider paracentesis after the weekend (3) COPD (chronic obstructive pulmonary disease): Plan: -Continue home COPD inhalers, pulm respule, incentive spirometry, flutter valve as above. (4) ESRD on dialysis: Plan: -MWF dialysis. -Electrolytes WNL. - nephrology on board for dialysis management. (5) HTN (hypertension): Plan: -continue home amlodipine. (6) Bladder mass: Plan: -Hx of bladder mass seen on CT from 02/10. -Urology plans to do in office cystoscopy based on note from 02/18. (7) Anemia: Plan: -Hgb 11.4, at baseline. -Continue to monitor AM CBC (8) PTSD (post-traumatic stress disorder): Plan: -Noted (9) DVT prophylaxis: Plan: -Heparin 5k BID SQ. (10) Hx of atrial flutter: Plan: -Continue home amiodarone. (11) Ascites: Plan: seen on abdominal CT and ultrasound Liver nodules seen that suggest cirrhosis. No prior diagnosis of cirrhosis Ascites could be related to liver, possible urinary bladder malignancy, recent peritoneal dialysis catheter No fever, no leukocytosis, no abdominal pain Plan to proceed with diagnostic and therapeutic paracentesis early next week Plan 72 year old male admitted for COVID-19 infection. Admission and Anticipated Discharge Date Admission Date: February 18, 2023 Subjective patient is doing better from a breathing standpoint. Coughing less. Says that he has abdominal pain only when he coughs. He also states that his belly has been getting distended over the last 1 week. About a month ago he had his peritoneal dialysis catheter pulled and fluid was drained at that point. Review of Systems Review of Systems: All systems reviewed & are unremarkable except as noted in Subjective Physical Exam Physical Exam: General: Awake, conversant Heart: S1, S2/regular rate and rhythm, no murmur rubs or gallops Lungs: Clear to auscultation bilaterally. Normal effort Abdomen: Soft/nontender/ distended. No hepatosplenomegaly Extremities: No clubbing/cyanosis. No edema Behavior: Appropriate, cooperative Results & Data Results & Data Vital Signs (Past 12 Hours) Vital Signs Temp Pulse Pulse Resp BP Pulse Ox O2 Del Method 02/20/23 11:49 36.3 C L 77 20 158/87 H 92 Room Air 02/20/23 07:00 74 02/20/23 07:42 36.6 C 80 21 158/80 H 93 Room Air 02/20/23 07:23 76 18 94 Room Air 02/20/23 04:03 36.7 C 76 16 149/76 H 91 Nasal Cannula O2 Flow Rate 02/20/23 11:49 02/20/23 07:00 02/20/23 07:42 02/20/23 07:23 2 02/20/23 04:03 4 Laboratory Results Abnormal lab results 02/20/23 02/20/23 Range/Units 08:35 08:35 WBC 4.39 L (4.8-10.8) K/ul RBC 3.75 L (4.70-6.10) M/uL Hgb 11.5 L (14.0-18.0) g/dl Hct 36.2 L (42.0-52.0) % MCHC 31.8 L (32.0-36.0) g/dL RDW Std Deviation 53.9 H (36.4-46.3) fL RDW Coeff of Giovana 15.3 H (11.5-14.5) % Lymph # (Auto) 0.79 L (1.20-3.40) K/uL [place] # (Auto) 0.62 H (0.11-0.59) K/uL BUN 44 H (6-23) mg/dl Creatinine 6.43 H* D (0.6-1.4) mg/dl BUN/Creatinine Ratio 6.8 L (10-20) Glucose 126 H (70-99(Fasting)) mg/dl PG Care Time/CCT Total # of Minutes Spent Total Time Spent with Patient: Total time spent is greater than 50% in coordination of care (as documented) at patient's floor/unit and/or counseling patient: Coding Level of Care Code 39914 SUB INP/OBS CARE 2/35MIN Diagnoses COVID-19 U07.1 Abdominal pain determined by examination R10.9 COPD (chronic obstructive pulmonary disease) J44.9 COPD type: unspecified COPD ESRD on dialysis N18.6; Z99.2 HTN (hypertension) I10 Hypertension type: unspecified Bladder mass N32.89 Anemia D64.9 Anemia type: unspecified type PTSD (post-traumatic stress disorder) F43.10 DVT prophylaxis Z29.9 Hx of atrial flutter Z86.79 Ascites R18.8 (3) COPD (chronic obstructive pulmonary disease) COPD type: unspecified COPD Qualified Code(s): J44.9 - Chronic obstructive pulmonary disease, unspecified (5) HTN (hypertension) Hypertension type: unspecified Qualified Code(s): I10 - Essential (primary) hypertension (7) Anemia Anemia type: unspecified type Qualified Code(s): D64.9 - Anemia, unspecified
[2023-02-20] MEDS: ACETAMINOPHEN 325 MG TAB PO PRN (16:26)
[2023-02-20] MEDS: CHOLECALCIFEROL 5,000 UNITS 125 MCG TAB PO SCH (17:54)
[2023-02-20] MEDS: AMIODARONE 200 MG TAB PO SCH (20:44)
[2023-02-20] MEDS: MELATONIN 3 MG TAB PO SCH (20:51)
[2023-02-20] MEDS: traZODone HCL 50 MG TAB PO SCH (20:53)
[2023-02-21] MEDS: BUDESONIDE 0.5 MG/2 ML VIAL (PULMICORT) NEB SCH ×2 (07:16→19:06)
[2023-02-21 07:33] LABS: Basophils # (auto) 0.03 K/uL (0.00-0.20); Basophils % (auto) 0.8 %; Eosinophils # (auto) 0.14 K/uL (0.00-0.50); Eosinophils % (auto) 3.8 %; Hemoglobin 10.3 g/dl (14.0-18.0); Immature Granulocytes # (auto) 0.02 K/uL (0.01-0.20); Immature Granulocytes % (auto) 0.5 %; Lymphocytes % (auto) 27.3 %; Mean Corpuscular Hemoglobin 30.4 pg (25.0-34.0); Mean Corpuscular Hgb Conc 32.2 g/dL (32.0-36.0); Mean Corpuscular Volume 94.4 fL (80.0-100.0); Mean Platelet Volume 9.7 fL (9.4-12.4); Monocytes # (auto) 0.45 K/uL (0.11-0.59); Monocytes % (auto) 12.3 %; Neutrophils # (auto) 2.02 K/uL (1.40-6.50); Neutrophils % (auto) 55.3 %; Platelet Count 220 K/uL (130-400); RDW Coefficient of Variation 15.1 % (11.5-14.5); RDW Standard Deviation 52.2 fL (36.4-46.3); Red Blood Count 3.39 M/uL (4.70-6.10); White Blood Count 3.66 K/ul (4.8-10.8)
[2023-02-21] MEDS: amLODIPine BESYLATE 5 MG TAB PO SCH (07:58)
[2023-02-21] MEDS: THIAMINE HCL 100 MG TAB PO SCH (07:58)
[2023-02-21] MEDS: guaiFENesin 600 MG TABCR PO SCH ×2 (07:59→20:16)
[2023-02-21] MEDS: NEPHROCAPS PO SCH (07:59)
[2023-02-21] MEDS: DIVALPROEX DELAY RELEASE 500 MG TAB PO SCH (07:59)
[2023-02-21] MEDS: FAMOTIDINE 40 MG TABLET PO SCH (07:59)
[2023-02-21] MEDS: UMECLIDINIUM/VILANTEROL 62.5/25MCG 7 PUFFS/INHALER INH SCH (07:59)
[2023-02-21] MEDS: CINACALCET HCL 30 MG TAB PO SCH (07:59)
[2023-02-21] MEDS: DOCUSATE SODIUM 100 MG CAP PO SCH ×2 (08:00→20:27)
[2023-02-21] MEDS: LORATADINE 10 MG TAB PO SCH (08:00)
[2023-02-21] MEDS: HEPARIN SOD 5,000 UNIT/0.5 ML VIAL SQ SCH ×2 (08:01→20:27)
[2023-02-21] MEDS: AZITHROMYCIN 500 MG in DEXTROSE 5% 250 ML IV SCH (08:03)
[2023-02-21] MEDS: dexAMETHasone 6 MG in SYRINGE 0 ML IV SCH (08:04)
--- NOTE | 2023-02-21 08:37 | Nephrology Progress Note ---
Date of Service February 21, 2023 Assessment & Plan (1) ESRD on dialysis: Plan: * Volume status and electrolyte balance remain acceptable. No acute indication for HD today * Will schedule next HD for tomorrow * Outpatient HD Rx: [facility] HD [facility] - 4 hours 180 optiflux 400/800 via L IJ TCC. EDW 75.5 kg (2) Anemia: Plan: * Chronic, stable. Not requiring PATRICK therapy. (3) COVID-19: Plan: * Maintained on dexamethasone. Symptomatically improving. (4) Bladder mass: Plan: * Urology evaluation scheduled (5) Cirrhosis of liver: Plan: * Large volume of ascites on CT. Primary service considering paracentesis on Wednesday Admission and Anticipated Discharge Date Admission Date: February 18, 2023 Subjective Mr. Redmond was evaluated in his hospital room this morning. He was last dialyzed Wednesday without complication. Mr. Redmond reports a cough but notes that he is breathing comfortably on RA. He voiced no new medical concerns. Review of Systems Constitutional: no fever Eyes: no problem reported Ear, Nose, Mouth, Throat: no problem reported Respiratory: + dyspnea on exertion; no cough Cardiovascular: no chest pain Gastrointestinal: no abdominal pain, no vomiting and no diarrhea/loose stools Physical Exam Constitutional: not in distress Eyes: PERRL, conjunctivae normal, anicteric sclerae ENMT: external ear and nose normal, oropharynx normal Neck: trachea midline, no thyromegaly Respiratory: Auscultation: + rales Cardiovascular: RRR, no murmur, no edema Gastrointestinal (Abdomen): normal bowel sounds, soft, nontender, no hepatosplenomegaly Neurologic: Speech / Cognition: normal speech and normal cognition Results & Data Vital Signs (Past 12 Hours) Vital Signs Temp Pulse Pulse Resp BP Pulse Ox Pulse Ox 02/21/23 07:54 36.2 C L 20 161/80 H 96 02/21/23 07:16 76 18 92 02/21/23 03:00 91 02/20/23 22:00 88 02/20/23 23:00 36.3 C L 73 18 180/88 H 92 O2 Del Method O2 Del Method 02/21/23 07:54 02/21/23 07:16 Room Air 02/21/23 03:00 Room Air 02/20/23 22:00 02/20/23 23:00 Room Air Laboratory Results Laboratory Tests 02/21/23 02/21/23 07:05 07:05 WBC 3.66 L Hgb 10.3 L Hct 32.0 L Plt Count 220 Sodium 135 L Potassium 4.6 Chloride 100 Carbon Dioxide 26 BUN 55 H Creatinine 7.25 H* D Glucose 83 PG Care Time/CCT Total # of Minutes Spent Total Time Spent with Patient: Total time spent is greater than 50% in coordination of care (as documented) at patient's floor/unit and/or counseling patient: Coding Level of Care Code 42758 SUB INP/OBS CARE 3/50MIN Diagnoses ESRD on dialysis N18.6; Z99.2 Anemia D64.9 Anemia type: unspecified type COVID-19 U07.1 Bladder mass N32.89 Cirrhosis of liver K74.60 (2) Anemia Anemia type: unspecified type Qualified Code(s): D64.9 - Anemia, unspecified
[2023-02-21 09:00] LABS: BUN Creatinine Ratio 7.6 (10-20); Calcium 8.9 mg/dl (8.6-10.3); Creatinine Clr Calc Pharmacy 10.1 ml/min; Est GFR (African American) 7.9 ml/min; Est GFR (Non-African American) 6.8 ml/min; Potassium 4.6 mmol/L (3.5-5.1)
--- NOTE | 2023-02-21 16:28 | Hospitalist Progress Note ---
Date of Service February 21, 2023 Assessment & Plan (1) COVID-19: Plan: - Pneumonia due to COVID 19 -COVID-19 positive on admission. -CXR bilateral airspace opacity w/ mild pulmonary edema. -No oxygen saturation dips on chart review however placed on 2L nasal cannula. Patient is not needing any more oxygen any longer -CBC, CMP grossly unremarkable. Procal 1.11. Continue dexamethasone 6mg IV daily due to O2 requirement. Will hold off on remdesivir at this time since patient vitals otherwise stable. -Continue home Stiolto respimat, pulmicort respules, incentive spirometry, flutter valve. clinically improving with improving shortness of breath, cough (2) Abdominal pain determined by examination: Plan: - abdominal pain is mostly cough induced. Less likely musculoskeletal. Ultrasound abdomen showed large volume ascites. Will consider paracentesis after the weekend (3) COPD (chronic obstructive pulmonary disease): Plan: -Continue home COPD inhalers, pulm respule, incentive spirometry, flutter valve as above. (4) ESRD on dialysis: Plan: -MWF dialysis. -Electrolytes WNL. - nephrology on board for dialysis management. (5) HTN (hypertension): Plan: -continue home amlodipine. (6) Bladder mass: Plan: -Hx of bladder mass seen on CT from 02/10. -Urology plans to do in office cystoscopy based on note from 02/18. (7) Anemia: Plan: -Hgb 11.4, at baseline. -Continue to monitor AM CBC (8) PTSD (post-traumatic stress disorder): Plan: -Noted (9) DVT prophylaxis: Plan: -Heparin 5k BID SQ. (10) Hx of atrial flutter: Plan: -Continue home amiodarone. (11) Ascites: Plan: seen on abdominal CT and ultrasound Liver nodules seen that suggest cirrhosis. No prior diagnosis of cirrhosis Ascites could be related to liver, possible urinary bladder malignancy, recen t peritoneal dialysis catheter No fever, no leukocytosis, no abdominal pain Plan to proceed with diagnostic and therapeutic paracentesis early next week Plan 72 year old male admitted for COVID-19 infection. Admission and Anticipated Discharge Date Admission Date: February 18, 2023 Subjective Patient feels well. No shortness of breath. Cough is improved but still coughing. No abdominal pain. Belly distended. Review of Systems Review of Systems: All systems reviewed & are unremarkable except as noted in Subjective Physical Exam Physical Exam: General: Awake, conversant Heart: S1, S2/regular rate and rhythm, no murmur rubs or gallops Lungs: Clear to auscultation bilaterally. Normal effort Abdomen: Soft/nontender/ distended. No hepatosplenomegaly Extremities: No clubbing/cyanosis. No edema Behavior: Appropriate, cooperative Results & Data Results & Data Vital Signs (Past 12 Hours) Vital Signs Temp Pulse Pulse Resp BP Pulse Ox Pulse Ox 02/21/23 15:00 79 02/21/23 11:49 36.2 C L 94 H 20 150/79 H 02/21/23 11:49 96 02/21/23 08:00 73 02/21/23 08:00 02/21/23 07:54 36.2 C L 84 20 161/80 H 96 02/21/23 07:16 76 18 92 O2 Del Method O2 Del Method 02/21/23 15:00 02/21/23 11:49 Room Air 02/21/23 11:49 Room Air 02/21/23 08:00 02/21/23 08:00 Room Air 02/21/23 07:54 02/21/23 07:16 Room Air Laboratory Results Abnormal lab results 02/21/23 02/21/23 Range/Units 07:05 07:05 WBC 3.66 L (4.8-10.8) K/ul RBC 3.39 L (4.70-6.10) M/uL Hgb 10.3 L (14.0-18.0) g/dl Hct 32.0 L (42.0-52.0) % RDW Std Deviation 52.2 H (36.4-46.3) fL RDW Coeff of Giovana 15.1 H (11.5-14.5) % Lymph # (Auto) 1.00 L (1.20-3.40) K/uL Sodium 135 L (136-145) mmol/L BUN 55 H (6-23) mg/dl Creatinine 7.25 H* D (0.6-1.4) mg/dl BUN/Creatinine Ratio 7.6 L (10-20) PG Care Time/CCT Total # of Minutes Spent Total Time Spent with Patient: Total time spent is greater than 50% in coordination of care (as documented) at patient's floor/unit and/or counseling patient: Coding Level of Care Code 98586 SUB INP/OBS CARE MIN Diagnoses COVID-19 U07.1 Abdominal pain determined by examination R10.9 COPD (chronic obstructive pulmonary disease) J44.9 COPD type: unspecified COPD ESRD on dialysis N18.6; Z99.2 HTN (hypertension) I10 Hypertension type: unspecified Bladder mass N32.89 Anemia D64.9 Anemia type: unspecified type PTSD (post-traumatic stress disorder) F43.10 DVT prophylaxis Z29.9 Hx of atrial flutter Z86.79 Ascites R18.8 (3) COPD (chronic obstructive pulmonary disease) COPD type: unspecified COPD Qualified Code(s): J44.9 - Chronic obstructive pulmonary disease, unspecified (5) HTN (hypertension) Hypertension type: unspecified Qualified Code(s): I10 - Essential (primary) hypertension (7) Anemia Anemia type: unspecified type Qualified Code(s): D64.9 - Anemia, unspecified
[2023-02-21] MEDS: CHOLECALCIFEROL 5,000 UNITS 125 MCG TAB PO SCH (16:47)
[2023-02-21] MEDS: AMIODARONE 200 MG TAB PO SCH (20:16)
[2023-02-21] MEDS: traZODone HCL 50 MG TAB PO SCH (20:17)
[2023-02-21] MEDS: MELATONIN 3 MG TAB PO SCH (20:17)
[2023-02-21] MEDS: ACETAMINOPHEN 325 MG TAB PO PRN (23:18)
[2023-02-22] MEDS ORDERED: HEPARIN SOD (PORCINE) 1000 UNIT/ML IV ONE (07:00)
[2023-02-22] MEDS ORDERED: SODIUM CHLORIDE 0.9% 1,000 ML IV PRN (07:00)
[2023-02-22] MEDS ORDERED: HEPARIN SOD (PORCINE) 1000 UNIT/ML IV SCH (07:00)
[2023-02-22] MEDS ORDERED: EPOETIN ALFA 10,000 UNITS/ML VIAL IV ONE (07:00)
[2023-02-22] MEDS: BUDESONIDE 0.5 MG/2 ML VIAL (PULMICORT) NEB SCH ×2 (07:20→19:07)
--- NOTE | 2023-02-22 09:18 | Nephrology Progress Note ---
Date of Service February 22, 2023 Assessment & Plan (1) ESRD on dialysis: Plan: * Outpatient HD Rx: MWF HD at [facility] [place] - 4 hours 180 optiflux 400/800 via L IJ TCC. EDW 75.5 kg * Will provide HD today. Orders entered into EMR and HD RN notified * Patient is near EDW. Will only attempt 2L UF (2) Anemia: Plan: * Chronic, stable. Not requiring PATRICK therapy. (3) COVID-19: Plan: * Maintained on dexamethasone. Symptomatically improving. (4) Bladder mass: Plan: * Urology evaluation scheduled (5) Cirrhosis of liver: Plan: * Large volume of ascites on CT. Primary service considering paracentesis today Admission and Anticipated Discharge Date Admission Date: February 18, 2023 Subjective Mr. Redmond was evaluated in his hospital room this morning. He reports a cough but notes that he is breathing comfortably on RA. He voiced no new medical concerns. Review of Systems Constitutional: no fever Eyes: no problem reported Ear, Nose, Mouth, Throat: no problem reported Respiratory: + cough and + dyspnea on exertion Cardiovascular: no chest pain Gastrointestinal: no abdominal pain, no vomiting and no diarrhea/loose stools Physical Exam Constitutional: not in distress Eyes: PERRL, conjunctivae normal, anicteric sclerae ENMT: external ear and nose normal, oropharynx normal Neck: trachea midline, no thyromegaly Respiratory: Auscultation: + rales Cardiovascular: RRR, no murmur, no edema Gastrointestinal (Abdomen): normal bowel sounds, soft, nontender, no hepatosplenomegaly Neurologic: Speech / Cognition: normal speech and normal cognition Results & Data Vital Signs (Past 12 Hours) Vital Signs Temp Pulse Pulse Resp BP Pulse Ox O2 Del Method 02/22/23 07:50 36.4 C L 77 18 162/84 H 93 Room Air 02/22/23 07:22 72 16 94 Room Air 02/22/23 02:33 36.3 C L 84 20 142/87 H 90 Room Air 02/21/23 23:31 77 02/21/23 23:24 Room Air 02/21/23 22:37 36.5 C 77 20 121/84 97 Room Air Laboratory Results No labs today PG Care Time/CCT Total # of Minutes Spent Total Time Spent with Patient: Total time spent is greater than 50% in coordination of care (as documented) at patient's floor/unit and/or counseling patient: Coding Level of Care Code 45842 SUB INP/OBS CARE 50MIN Diagnoses ESRD on dialysis N18.6; Z99.2 Anemia D64.9 Anemia type: unspecified type COVID-19 U07.1 Bladder mass N32.89 Cirrhosis of liver K74.60 (2) Anemia Anemia type: unspecified type Qualified Code(s): D64.9 - Anemia, unspecified
[2023-02-22] MEDS: AZITHROMYCIN 500 MG in DEXTROSE 5% 250 ML IV SCH (13:16)
[2023-02-22] MEDS: dexAMETHasone 6 MG in SYRINGE 0 ML IV SCH (13:16)
[2023-02-22] MEDS: THIAMINE HCL 100 MG TAB PO SCH (13:17)
[2023-02-22] MEDS: amLODIPine BESYLATE 5 MG TAB PO SCH (13:17)
[2023-02-22] MEDS: NEPHROCAPS PO SCH (13:17)
[2023-02-22] MEDS: DIVALPROEX DELAY RELEASE 500 MG TAB PO SCH (13:18)
[2023-02-22] MEDS: CINACALCET HCL 30 MG TAB PO SCH (13:18)
[2023-02-22] MEDS: guaiFENesin 600 MG TABCR PO SCH ×2 (13:19→20:28)
[2023-02-22] MEDS: DOCUSATE SODIUM 100 MG CAP PO SCH ×2 (13:19→20:27)
[2023-02-22] MEDS: FAMOTIDINE 40 MG TABLET PO SCH (13:19)
[2023-02-22] MEDS: UMECLIDINIUM/VILANTEROL 62.5/25MCG 7 PUFFS/INHALER INH SCH (13:20)
[2023-02-22] MEDS: HEPARIN SOD 5,000 UNIT/0.5 ML VIAL SQ SCH ×2 (13:20→20:33)
--- NOTE | 2023-02-22 15:51 | Electrocardiogram Report ---
Test Reason : Blood Pressure : / mmHG Vent. Rate : 090 BPM Atrial Rate : 090 BPM P-R Int : 228 ms QRS Dur : 118 ms QT Int : 388 ms P-R-T Axes : 038 001 065 degrees QTc Int : 474 ms Sinus rhythm with 1st degree A-V block Inferior infarct , age undetermined Abnormal ECG When compared with ECG of 17-NOV-2022 19:47, QRS duration has decreased Confirmed by Cruz Godfrey ([id number]) on 02/22/2023 3:50:59 PM Referred By: Ana Jones Confirmed By:Cruz Godfrey
--- NOTE | 2023-02-22 15:55 | Electrocardiogram Report ---
Test Reason : Blood Pressure : / mmHG Vent. Rate : 081 BPM Atrial Rate : 081 BPM P-R Int : 230 ms QRS Dur : 114 ms QT Int : 410 ms P-R-T Axes : 093 -03 062 degrees QTc Int : 476 ms Sinus rhythm with 1st degree A-V block Inferior infarct (cited on or before 18-FEB-2023) Abnormal ECG When compared with ECG of 18-FEB-2023 18:47, No significant change was found Confirmed by Cruz Godfrey ([id number] on 02/22/2023 3:55:16 PM Referred By: Ana Jones Confirmed By:Cruz Godfrey
[2023-02-22] MEDS: CHOLECALCIFEROL 5,000 UNITS 125 MCG TAB PO SCH (16:44)
--- NOTE | 2023-02-22 17:23 | Hospitalist Progress Note ---
Date of Service February 22, 2023 Assessment & Plan (1) COVID-19: Plan: - Pneumonia due to COVID 19 -COVID-19 positive on admission. -CXR bilateral airspace opacity w/ mild pulmonary edema. -No oxygen saturation dips on chart review however placed on 2L nasal cannula. Patient is not needing any more oxygen any longer -CBC, CMP grossly unremarkable. Procal 1.11. Continue dexamethasone 6mg IV daily due to O2 requirement. Will hold off on remdesivir at this time since patient vitals otherwise stable. -Continue home Stiolto respimat, pulmicort respules, incentive spirometry, flutter valve. clinically improving with improving shortness of breath, cough (2) Abdominal pain determined by examination: Plan: - abdominal pain is mostly cough induced. Less likely musculoskeletal. Ultrasound abdomen showed large volume ascites. Will consider paracentesis after the weekend (3) COPD (chronic obstructive pulmonary disease): Plan: -Continue home COPD inhalers, pulm respule, incentive spirometry, flutter valve as above. (4) ESRD on dialysis: Plan: -MWF dialysis. -Electrolytes WNL. - nephrology on board for dialysis management. (5) HTN (hypertension): Plan: -continue home amlodipine. (6) Bladder mass: Plan: -Hx of bladder mass seen on CT from 02/10. -Urology plans to do in office cystoscopy based on note from 02/18. (7) Anemia: Plan: -Hgb 11.4, at baseline. -Continue to monitor AM CBC (8) PTSD (post-traumatic stress disorder): Plan: -Noted (9) DVT prophylaxis: Plan: -Heparin 5k BID SQ. (10) Hx of atrial flutter: Plan: -Continue home amiodarone. (11) Ascites: Plan: seen on abdominal CT and ultrasound Liver nodules seen that suggest cirrhosis. No prior diagnosis of cirrhosis Ascites could be related to liver, possible urinary bladder malignancy, recen t peritoneal dialysis catheter No fever, no leukocytosis, no abdominal pain Plan to proceed with diagnostic and therapeutic paracentesis Tomorrow Ordered IR paracentesis Ordered ascitic fluid labs Admission and Anticipated Discharge Date Admission Date: February 18, 2023 Subjective patient feels well. Denies chest pain or shortness of breath. Complains of belly swelling. No pain in the belly. Review of Systems Review of Systems: All systems reviewed & are unremarkable except as noted in Subjective Physical Exam Physical Exam: General: Awake, conversant Heart: S1, S2/regular rate and rhythm, no murmur rubs or gallops Lungs: Clear to auscultation bilaterally. Normal effort Abdomen: Soft/nontender/ distended. No hepatosplenomegaly Extremities: No clubbing/cyanosis. No edema Behavior: Appropriate, cooperative Results & Data Results & Data Vital Signs (Past 12 Hours) Vital Signs Temp Pulse Pulse Pulse Resp BP BP 02/22/23 16:00 79 02/22/23 15:54 36.4 C L 72 18 153/83 H 02/22/23 13:10 36.5 C 77 148/71 H 02/22/23 12:30 79 127/78 02/22/23 12:00 79 133/76 02/22/23 11:30 77 126/77 02/22/23 11:00 02/22/23 11:00 77 121/66 02/22/23 10:30 77 144/75 H 02/22/23 10:00 79 122/65 02/22/23 09:30 78 88/52 L 02/22/23 09:15 76 124/70 02/22/23 08:00 02/22/23 08:55 36.5 C 77 02/22/23 07:50 36.4 C L 77 18 162/84 H 02/22/23 07:22 72 16 Pulse Ox O2 Del Method O2 Del Method 02/22/23 16:00 02/22/23 15:54 92 Room Air 02/22/23 13:10 02/22/23 12:30 02/22/23 12:00 02/22/23 11:30 02/22/23 11:00 Room Air 02/22/23 11:00 02/22/23 10:30 02/22/23 10:00 02/22/23 09:30 02/22/23 09:15 02/22/23 08:00 Room Air 02/22/23 08:55 02/22/23 07:50 93 Room Air 02/22/23 07:22 94 Room Air PG Care Time/CCT Total # of Minutes Spent Total Time Spent with Patient: Total time spent is greater than 50% in coordination of care (as documented) at patient's floor/unit and/or counseling patient: Coding Level of Care Code 61685 SUB INP/OBS CARE MIN Diagnoses COVID-19 U07.1 Abdominal pain determined by examination R10.9 COPD (chronic obstructive pulmonary disease) J44.9 COPD type: unspecified COPD ESRD on dialysis N18.6; Z99.2 HTN (hypertension) I10 Hypertension type: unspecified Bladder mass N32.89 Anemia D64.9 Anemia type: unspecified type PTSD (post-traumatic stress disorder) F43.10 DVT prophylaxis Z29.9 Hx of atrial flutter Z86.79 Ascites R18.8 (3) COPD (chronic obstructive pulmonary disease) COPD type: unspecified COPD Qualified Code(s): J44.9 - Chronic obstructive pulmonary disease, unspecified (5) HTN (hypertension) Hypertension type: unspecified Qualified Code(s): I10 - Essential (primary) hypertension (7) Anemia Anemia type: unspecified type Qualified Code(s): D64.9 - Anemia, unspecified
[2023-02-22] MEDS: MELATONIN 3 MG TAB PO SCH (20:27)
[2023-02-22] MEDS: AMIODARONE 200 MG TAB PO SCH (20:28)
[2023-02-22] MEDS: traZODone HCL 50 MG TAB PO SCH (20:32)
[2023-02-23] MEDS: BUDESONIDE 0.5 MG/2 ML VIAL (PULMICORT) NEB SCH ×2 (07:10→19:12)
[2023-02-23 07:48] LABS: Hematocrit (blood only) 34.6 % (42.0-52.0); Hemoglobin 11.5 g/dl (14.0-18.0); Mean Corpuscular Hemoglobin 30.4 pg (25.0-34.0); Mean Corpuscular Hgb Conc 33.2 g/dL (32.0-36.0); Mean Corpuscular Volume 91.5 fL (80.0-100.0); Mean Platelet Volume 10.3 fL (9.4-12.4); Platelet Count 248 K/uL (130-400); RDW Coefficient of Variation 14.8 % (11.5-14.5); RDW Standard Deviation 50.1 fL (36.4-46.3); Red Blood Count 3.78 M/uL (4.70-6.10); White Blood Count 5.03 K/ul (4.8-10.8)
[2023-02-23 08:09] LABS: BUN Creatinine Ratio 6.4 (10-20); Calcium 9.1 mg/dl (8.6-10.3); Creatinine Clr Calc Pharmacy 10.8 ml/min; Est GFR (Non-African American) 7.8 ml/min; Potassium 4.5 mmol/L (3.5-5.1)
--- NOTE | 2023-02-23 08:48 | Nephrology Progress Note ---
Date of Service February 23, 2023 Assessment & Plan (1) ESRD on dialysis: Plan: * Outpatient HD Rx: MWF HD at [facility] [place] - 4 hours 180 optiflux 400/800 via L IJ TCC. EDW 75.5 kg * Dialysis provided yesterday. UF reduced to 2.5 L due to relative hypotension * No acute indication for HD today. Will provide next treatment in am (2) Anemia: Plan: * Chronic, stable. Not requiring PATRICK therapy. (3) COVID-19: Plan: * Maintained on dexamethasone. Symptomatically improving. (4) Bladder mass: Plan: * Urology evaluation scheduled (5) Cirrhosis of liver: Plan: * Large volume of ascites on CT. Primary service considering paracentesis today Admission and Anticipated Discharge Date Admission Date: February 18, 2023 Subjective Mr. Redmond was evaluated in his hospital room this morning. He reports that his cough and breathing are improved. He is awaiting paracentesis Review of Systems Constitutional: no fever Eyes: no problem reported Ear, Nose, Mouth, Throat: no problem reported Respiratory: + cough and + dyspnea on exertion Cardiovascular: no chest pain Gastrointestinal: + problem reported (distention); no abdominal pain, no vomiting and no diarrhea/loose stools Physical Exam Constitutional: not in distress Eyes: PERRL, conjunctivae normal, anicteric sclerae ENMT: external ear and nose normal, oropharynx normal Neck: trachea midline, no thyromegaly Respiratory: Auscultation: + rales Cardiovascular: RRR, no murmur, no edema Gastrointestinal (Abdomen): Inspection/Auscultation: + abdomen distended and + hypoactive bowel sounds Neurologic: Speech / Cognition: normal speech and normal cognition Results & Data Vital Signs (Past 12 Hours) Vital Signs Temp Pulse Pulse Pulse Resp BP Pulse Ox 02/23/23 07:37 36.4 C L 80 18 166/90 H 96 02/23/23 07:12 73 18 92 02/23/23 07:00 79 02/23/23 03:00 36.3 C L 74 20 167/88 H 93 02/22/23 23:00 36.3 C L 98 H 20 167/86 H 93 02/22/23 23:00 71 O2 Del Method 02/23/23 07:37 Room Air 02/23/23 07:12 Room Air 02/23/23 07:00 02/23/23 03:00 Room Air 02/22/23 23:00 Room Air 02/22/23 23:00 Laboratory Results Laboratory Tests 02/23/23 02/23/23 06:59 06:59 WBC 5.03 Hgb 11.5 L Hct 34.6 L Plt Count 248 Sodium 130 L Potassium 4.5 Chloride 96 L Carbon Dioxide 24 BUN 42 H Creatinine 6.52 H* D Glucose 88 PG Care Time/CCT Total # of Minutes Spent Total Time Spent with Patient: Total time spent is greater than 50% in coordination of care (as documented) at patient's floor/unit and/or counseling patient: Coding Level of Care Code 33285 SUB INP/OBS CARE 3/50MIN Diagnoses ESRD on dialysis N18.6; Z99.2 Anemia D64.9 Anemia type: unspecified type COVID-19 U07.1 Bladder mass N32.89 Cirrhosis of liver K74.60 (2) Anemia Anemia type: unspecified type Qualified Code(s): D64.9 - Anemia, unspecified
[2023-02-23] MEDS: guaiFENesin 600 MG TABCR PO SCH ×2 (09:06→20:50)
[2023-02-23] MEDS: AZITHROMYCIN 500 MG in DEXTROSE 5% 250 ML IV SCH (09:06)
[2023-02-23] MEDS: UMECLIDINIUM/VILANTEROL 62.5/25MCG 7 PUFFS/INHALER INH SCH (09:06)
[2023-02-23] MEDS: HEPARIN SOD 5,000 UNIT/0.5 ML VIAL SQ SCH ×2 (09:07→20:48)
[2023-02-23] MEDS: NEPHROCAPS PO SCH (09:07)
[2023-02-23] MEDS: CINACALCET HCL 30 MG TAB PO SCH (09:07)
[2023-02-23] MEDS: amLODIPine BESYLATE 5 MG TAB PO SCH (09:08)
[2023-02-23] MEDS: THIAMINE HCL 100 MG TAB PO SCH (09:08)
[2023-02-23] MEDS: LORATADINE 10 MG TAB PO SCH (09:08)
[2023-02-23] MEDS: FAMOTIDINE 40 MG TABLET PO SCH (09:08)
[2023-02-23] MEDS: DOCUSATE SODIUM 100 MG CAP PO SCH ×2 (09:10→20:52)
[2023-02-23] MEDS: DIVALPROEX DELAY RELEASE 500 MG TAB PO SCH (09:10)
[2023-02-23] MEDS: dexAMETHasone 6 MG in SYRINGE 0 ML IV SCH (09:10)
[2023-02-23] MEDS: FERRIC CITRATE 210 MG TAB PO SCH ×2 (13:04→17:37)
--- NOTE | 2023-02-23 15:56 | Ultrasound Report ---
ULTRASOUND-GUIDED PARACENTESIS CLINICAL HISTORY: Ascites PROCEDURE: Procedure and risks were explained. Informed consent was obtained. A final timeout was com pleted. The right lower quadrant was prepped and draped in sterile fashion. 1% buffered lidocaine was utilized for skin anesthesia. Utilizing ultrasound guidance, a 5 Wolof safety centesis catheter was advanced into the right lower quadrant pocket of ascites. Ultrasound images were obtained. A total of 1 L of yellow ascites fluid w as removed and sent to the lab for analysis. The catheter was removed and Band-Aid applied. The patie nt tolerated the procedure well. Vital signs will be monitored postprocedure. IMPRESSION: Ultrasound-guided paracentesis as above. Performed, dictated, and signed by Leonides Gross PA-C; to be co-signed by Dr. Jef Avery. Electronically signed by: Jef Avery M.D. 02/23/2023 3:56 PM
--- NOTE | 2023-02-23 16:42 | Hospitalist Progress Note ---
Date of Service February 23, 2023 Assessment & Plan (1) COVID-19: Plan: - Pneumonia due to COVID 19 -COVID-19 positive on admission. -CXR bilateral airspace opacity w/ mild pulmonary edema. -No oxygen saturation dips on chart review however placed on 2L nasal cannula. Patient is not needing any more oxygen any longer -CBC, CMP grossly unremarkable. Procal 1.11. Continue dexamethasone 6mg IV daily due to O2 requirement. Will hold off on remdesivir at this time since patient vitals otherwise stable. -Continue home Stiolto respimat, pulmicort respules, incentive spirometry, flutter valve. clinically improving with improving shortness of breath, cough (2) Abdominal pain determined by examination: Plan: - abdominal pain is mostly cough induced. Less likely musculoskeletal. Ultrasound abdomen showed large volume ascites. Patient had paracentesis done today Ordered serum albumin level along with ascitic fluid analysis tests (3) COPD (chronic obstructive pulmonary disease): Plan: -Continue home COPD inhalers, pulm respule, incentive spirometry, flutter valve as above. (4) ESRD on dialysis: Plan: -MWF dialysis. -Electrolytes WNL. - nephrology on board for dialysis management. (5) HTN (hypertension): Plan: -continue home amlodipine. (6) Bladder mass: Plan: -Hx of bladder mass seen on CT from 02/10. -Urology plans to do in office cystoscopy based on note from 02/18. (7) Anemia: Plan: -Hgb 11.4, at baseline. -Continue to monitor AM CBC (8) PTSD (post-traumatic stress disorder): Plan: -Noted (9) DVT prophylaxis: Plan: -Heparin 5k BID SQ. (10) Hx of atrial flutter: Plan: -Continue home amiodarone. (11) Ascites: Plan: seen on abdominal CT and ultrasound Liver nodules seen that suggest cirrhosis. No prior diagnosis of cirrhosis Ascites could be related to liver, possible urinary bladder malignancy, recent peritoneal dialysis catheter No fever, no leukocytosis, no abdominal pain patient had paracentesis done today by IR Ordered ascitic fluid labs Admission and Anticipated Discharge Date Admission Date: February 18, 2023 Subjective patient feels well. Denies chest pain or shortness of breath. He is on room air. Review of Systems Review of Systems: All systems reviewed & are unremarkable except as noted in Subjective Physical Exam Physical Exam: General: Awake, conversant Heart: S1, S2/regular rate and rhythm, no murmur rubs or gallops Lungs: Clear to auscultation bilaterally. Normal effort Abdomen: Soft/nontender/ distended. No hepatosplenomegaly Extremities: No clubbing/cyanosis. No edema Behavior: Appropriate, cooperative Results & Data Results & Data Vital Signs (Past 12 Hours) Vital Signs Temp Pulse Pulse Pulse Resp BP Pulse Ox 02/23/23 16:08 37.1 C 83 16 127/71 97 02/23/23 11:00 02/23/23 11:56 36.6 C 85 20 130/87 96 02/23/23 08:00 02/23/23 07:37 36.4 C L 80 18 166/90 H 96 02/23/23 07:12 73 18 92 02/23/23 07:00 79 Pulse Ox O2 Del Method O2 Del Method 02/23/23 16:08 Room Air 02/23/23 11:00 97 Room Air 02/23/23 11:56 Room Air 02/23/23 08:00 Room Air 02/23/23 07:37 Room Air 02/23/23 07:12 Room Air 02/23/23 07:00 PG Care Time/CCT Total # of Minutes Spent Total Time Spent with Patient: Total time spent is greater than 50% in coordination of care (as documented) at patient's floor/unit and/or counseling patient: Coding Level of Care Code 90622 SUB INP/OBS CARE 2/35MIN Diagnoses COVID-19 U07.1 Abdominal pain determined by examination R10.9 COPD (chronic obstructive pulmonary disease) J44.9 COPD type: unspecified COPD ESRD on dialysis N18.6; Z99.2 HTN (hypertension) I10 Hypertension type: unspecified Bladder mass N32.89 Anemia D64.9 Anemia type: unspecified type PTSD (post-traumatic stress disorder) F43.10 DVT prophylaxis Z29.9 Hx of atrial flutter Z86.79 Ascites R18.8 (3) COPD (chronic obstructive pulmonary disease) COPD type: unspecified COPD Qualified Code(s): J44.9 - Chronic obstructive pulmonary disease, unspecified (5) HTN (hypertension) Hypertension type: unspecified Qualified Code(s): I10 - Essential (primary) hypertension (7) Anemia Anemia type: unspecified type Qualified Code(s): D64.9 - Anemia, unspecified
[2023-02-23 17:03] LABS: Albumin Peritoneal Fluid 2.1 gm/dl
[2023-02-23 17:09] LABS: Total Protein Peritoneal Fluid 3.7 gm/dl
[2023-02-23 17:36] LABS: Appearance Peritoneal Fluid Clear; Basophils, Fluid 1 %; Color Peritoneal Fluid Yellow; Lymphocytes, Fluid 26 %; Mono,Macrophage,Mesothelial 72 %; Neutrophils, Fluid 1 %; RBC Peritoneal Fluid Auto < 2000 /uL; WBC Peritoneal Fluid Auto 145 /ul (0-300)
[2023-02-23] MEDS: CHOLECALCIFEROL 5,000 UNITS 125 MCG TAB PO SCH (17:37)
[2023-02-23 17:40] LABS: Albumin Level 3.3 gm/dl (3.4-5.0); Bilirubin Direct 0.1 mg/dl (0-0.2); Bilirubin,Total 0.4 mg/dl (0.2-1.0); Total Protein 6.1 gm/dl (6.0-8.3)
[2023-02-23] MEDS: AMIODARONE 200 MG TAB PO SCH (20:49)
[2023-02-23] MEDS: MELATONIN 3 MG TAB PO SCH (20:53)
[2023-02-23] MEDS: traZODone HCL 50 MG TAB PO SCH (20:54)
[2023-02-24] MEDS ORDERED: HEPARIN SOD (PORCINE) 1000 UNIT/ML IV ONE (07:00)
[2023-02-24] MEDS ORDERED: SODIUM CHLORIDE 0.9% 1,000 ML IV PRN (07:00)
[2023-02-24] MEDS: BUDESONIDE 0.5 MG/2 ML VIAL (PULMICORT) NEB SCH ×2 (07:28→19:24)
[2023-02-24] MEDS: FERRIC CITRATE 210 MG TAB PO SCH ×3 (09:08→17:20)
[2023-02-24] MEDS: AZITHROMYCIN 500 MG in DEXTROSE 5% 250 ML IV SCH (09:08)
[2023-02-24] MEDS: NEPHROCAPS PO SCH (09:09)
[2023-02-24] MEDS: amLODIPine BESYLATE 5 MG TAB PO SCH (09:09)
[2023-02-24] MEDS: HEPARIN SOD 5,000 UNIT/0.5 ML VIAL SQ SCH ×2 (09:09→21:04)
[2023-02-24] MEDS: DIVALPROEX DELAY RELEASE 500 MG TAB PO SCH (09:09)
[2023-02-24] MEDS: hydrOXYzine HCl 10 MG TAB PO PRN (09:09)
[2023-02-24] MEDS: FAMOTIDINE 40 MG TABLET PO SCH (09:10)
[2023-02-24] MEDS: dexAMETHasone 6 MG in SYRINGE 0 ML IV SCH (09:10)
[2023-02-24] MEDS: UMECLIDINIUM/VILANTEROL 62.5/25MCG 7 PUFFS/INHALER INH SCH (09:10)
[2023-02-24] MEDS: guaiFENesin 600 MG TABCR PO SCH ×2 (09:10→21:17)
[2023-02-24] MEDS: CINACALCET HCL 30 MG TAB PO SCH (09:10)
[2023-02-24] MEDS: THIAMINE HCL 100 MG TAB PO SCH (09:10)
[2023-02-24] MEDS: DOCUSATE SODIUM 100 MG CAP PO SCH ×2 (09:13→21:16)
--- NOTE | 2023-02-24 09:14 | Nephrology Progress Note ---
Date of Service February 24, 2023 Assessment & Plan (1) ESRD on dialysis: Plan: * Outpatient HD Rx: MWF HD at [facility] [place] - 4 hours 180 optiflux 400/800 via L IJ TCC. EDW 75.5 kg * Will provide chronic maintenance HD today. Patient is near EDW. Will limit UF to 1 L (2) Anemia: Plan: * Chronic, stable. Not requiring PATRICK therapy. (3) COVID-19: Plan: * Maintained on dexamethasone. Symptomatically improving. (4) Bladder mass: Plan: * Urology evaluation scheduled (5) Cirrhosis of liver: Plan: * s/p 1L paracentesis 02/23/23 Admission and Anticipated Discharge Date Admission Date: February 18, 2023 Subjective Mr. Redmond was evaluated in his hospital room this morning. He reports that his cough and breathing are improved. Abdominal discomfort has improved following paracentesis Review of Systems Constitutional: no fever Eyes: no problem reported Ear, Nose, Mouth, Throat: no problem reported Respiratory: + cough and + dyspnea on exertion Cardiovascular: no chest pain Gastrointestinal: + problem reported (distention); no abdominal pain, no vomiting and no diarrhea/loose stools Physical Exam Constitutional: not in distress Eyes: PERRL, conjunctivae normal, anicteric sclerae ENMT: external ear and nose normal, oropharynx normal Neck: trachea midline, no thyromegaly Respiratory: Auscultation: lungs clear to auscultation bilaterally Cardiovascular: RRR, no murmur, no edema Gastrointestinal (Abdomen): normal bowel sounds, soft, nontender, no hepatosplenomegaly Neurologic: Speech / Cognition: normal speech and normal cognition Results & Data Vital Signs (Past 12 Hours) Vital Signs Temp Pulse Pulse Pulse Resp BP Pulse Ox 02/24/23 07:30 36.3 C L 72 18 163/93 H 97 02/24/23 07:30 71 18 97 02/24/23 07:00 71 02/24/23 02:50 36.3 C L 74 16 132/69 94 02/24/23 01:01 75 02/23/23 22:51 36.5 C 72 20 131/69 95 O2 Del Method 02/24/23 07:30 Room Air 02/24/23 07:30 Room Air 02/24/23 07:00 02/24/23 02:50 Room Air 02/24/23 01:01 02/23/23 22:51 Room Air PG Care Time/CCT Total # of Minutes Spent Total Time Spent with Patient: Total time spent is greater than 50% in coordination of care (as documented) at patient's floor/unit and/or counseling patient: Coding Level of Care Code 64380 SUB INP/OBS CARE 3/50MIN Diagnoses ESRD on dialysis N18.6; Z99.2 Anemia D64.9 Anemia type: unspecified type COVID-19 U07.1 Bladder mass N32.89 Cirrhosis of liver K74.60 (2) Anemia Anemia type: unspecified type Qualified Code(s): D64.9 - Anemia, unspecified
[2023-02-24] MEDS: HEPARIN SOD (PORCINE) 1000 UNIT/ML IV SCH (14:34)
--- NOTE | 2023-02-24 15:34 | Hospitalist Progress Note ---
Date of Service February 24, 2023 Assessment & Plan (1) COVID-19: Plan: - Pneumonia due to COVID 19 -COVID-19 positive on admission. -CXR bilateral airspace opacity w/ mild pulmonary edema. -No oxygen saturation dips on chart review however placed on 2L nasal cannula. Patient is not needing any more oxygen any longer -CBC, CMP grossly unremarkable. Procal 1.11. Continue dexamethasone 6mg IV daily Until discharge -Continue home Stiolto respimat, pulmicort respules, incentive spirometry, flutter valve. clinically improving with improving shortness of breath, cough (2) Abdominal pain determined by examination: Plan: - abdominal pain is mostly cough induced. Less likely musculoskeletal. Ultrasound abdomen showed large volume ascites. Patient had paracentesis done today Ordered serum albumin level along with ascitic fluid analysis tests (3) COPD (chronic obstructive pulmonary disease): Plan: -Continue home COPD inhalers, pulm respule, incentive spirometry, flutter valve as above. (4) ESRD on dialysis: Plan: -MWF dialysis. -Electrolytes WNL. - nephrology on board for dialysis management. (5) HTN (hypertension): Plan: -continue home amlodipine. (6) Bladder mass: Plan: -Hx of bladder mass seen on CT from 02/10. -Urology plans to do in office cystoscopy based on note from 02/18. (7) Anemia: Plan: -Hgb 11.4, at baseline. -Continue to monitor AM CBC (8) PTSD (post-traumatic stress disorder): Plan: -Noted (9) DVT prophylaxis: Plan: -Heparin 5k BID SQ. (10) Hx of atrial flutter: Plan: -Continue home amiodarone. (11) Ascites: Plan: seen on abdominal CT and ultrasound Liver nodules seen that suggest cirrhosis. No prior diagnosis of cirrhosis Ascites could be related to liver, possible urinary bladder malignancy, recent peritoneal dialysis catheter No fever, no leukocytosis, no abdominal pain paracentesis done peritoneal fluid analysis Does not suggest SBP. Further tests pending. Can be followed up on by PCP. Plan Likely discharge tomorrow when [facility] will be able to take him back. Admission and Anticipated Discharge Date Admission Date: February 18, 2023 Subjective patient feels well. Denies chest pain or shortness of breath. Feels much better now that fluid has been removed from his belly. Review of Systems Review of Systems: All systems reviewed & are unremarkable except as noted in Subjective Physical Exam Physical Exam: General: Awake, conversant Heart: S1, S2/regular rate and rhythm, no murmur rubs or gallops Lungs: Clear to auscultation bilaterally. Normal effort Abdomen: Soft/nontender/ distended. No hepatosplenomegaly Extremities: No clubbing/cyanosis. No edema Behavior: Appropriate, cooperative Results & Data Results & Data Vital Signs (Past 12 Hours) Vital Signs Temp Pulse Pulse Pulse Resp BP BP 02/24/23 15:00 67 131/68 02/24/23 14:30 71 125/56 L 02/24/23 14:00 67 124/68 02/24/23 13:30 69 106/61 02/24/23 13:00 70 104/71 02/24/23 12:30 70 137/87 02/24/23 12:11 36.3 C L 70 02/24/23 11:00 02/24/23 07:30 36.3 C L 72 18 163/93 H 02/24/23 07:30 71 18 02/24/23 07:00 71 Pulse Ox Pulse Ox O2 Del Method O2 Del Method 02/24/23 15:00 02/24/23 14:30 02/24/23 14:00 02/24/23 13:30 02/24/23 13:00 02/24/23 12:30 02/24/23 12:11 02/24/23 11:00 95 Room Air 02/24/23 07:30 97 Room Air 02/24/23 07:30 97 Room Air 02/24/23 07:00 Laboratory Results Abnormal lab results 02/23/23 Range/Units 16:57 Albumin 3.3 L (3.4-5.0) gm/dl PG Care Time/CCT Total # of Minutes Spent Total Time Spent with Patient: Total time spent is greater than 50% in coordination of care (as documented) at patient's floor/unit and/or counseling patient: Coding Level of Care Code 64746 SUB INP/OBS CARE 2/35MIN Diagnoses COVID-19 U07.1 Abdominal pain determined by examination R10.9 COPD (chronic obstructive pulmonary disease) J44.9 COPD type: unspecified COPD ESRD on dialysis N18.6; Z99.2 HTN (hypertension) I10 Hypertension type: unspecified Bladder mass N32.89 Anemia D64.9 Anemia type: unspecified type PTSD (post-traumatic stress disorder) F43.10 DVT prophylaxis Z29.9 Hx of atrial flutter Z86.79 Ascites R18.8 (3) COPD (chronic obstructive pulmonary disease) COPD type: unspecified COPD Qualified Code(s): J44.9 - Chronic obstructive pulmonary disease, unspecified (5) HTN (hypertension) Hypertension type: unspecified Qualified Code(s): I10 - Essential (primary) hypertension (7) Anemia Anemia type: unspecified type Qualified Code(s): D64.9 - Anemia, unspecified
[2023-02-24] MEDS: CHOLECALCIFEROL 5,000 UNITS 125 MCG TAB PO SCH (17:20)
[2023-02-24] MEDS: AMIODARONE 200 MG TAB PO SCH (21:00)
[2023-02-24] MEDS: MELATONIN 3 MG TAB PO SCH (21:16)
[2023-02-24] MEDS: traZODone HCL 50 MG TAB PO SCH (21:16)
[2023-02-25] MEDS: BUDESONIDE 0.5 MG/2 ML VIAL (PULMICORT) NEB SCH (07:14)
[2023-02-25] MEDS: NEPHROCAPS PO SCH (07:59)
[2023-02-25] MEDS: FAMOTIDINE 40 MG TABLET PO SCH (08:00)
[2023-02-25] MEDS: CINACALCET HCL 30 MG TAB PO SCH (08:00)
[2023-02-25] MEDS: THIAMINE HCL 100 MG TAB PO SCH (08:00)
[2023-02-25] MEDS: LORATADINE 10 MG TAB PO SCH (08:00)
[2023-02-25] MEDS: FERRIC CITRATE 210 MG TAB PO SCH (08:00)
[2023-02-25] MEDS: guaiFENesin 600 MG TABCR PO SCH (08:00)
[2023-02-25] MEDS: AZITHROMYCIN 500 MG in DEXTROSE 5% 250 ML IV SCH (08:00)
[2023-02-25] MEDS: dexAMETHasone 6 MG in SYRINGE 0 ML IV SCH (08:00)
[2023-02-25] MEDS: amLODIPine BESYLATE 5 MG TAB PO SCH (08:00)
[2023-02-25 08:01] LABS: Hematocrit (blood only) 33.7 % (42.0-52.0); Hemoglobin 11.3 g/dl (14.0-18.0); Mean Corpuscular Hemoglobin 30.6 pg (25.0-34.0); Mean Corpuscular Hgb Conc 33.5 g/dL (32.0-36.0); Mean Corpuscular Volume 91.3 fL (80.0-100.0); Mean Platelet Volume 10.3 fL (9.4-12.4); Platelet Count 273 K/uL (130-400); RDW Standard Deviation 49.8 fL (36.4-46.3); Red Blood Count 3.69 M/uL (4.70-6.10); White Blood Count 5.59 K/ul (4.8-10.8)
[2023-02-25] MEDS: DOCUSATE SODIUM 100 MG CAP PO SCH (08:01)
[2023-02-25] MEDS: UMECLIDINIUM/VILANTEROL 62.5/25MCG 7 PUFFS/INHALER INH SCH (08:01)
[2023-02-25] MEDS: HEPARIN SOD 5,000 UNIT/0.5 ML VIAL SQ SCH (08:01)
[2023-02-25] MEDS: hydrOXYzine HCl 10 MG TAB PO PRN (08:01)
[2023-02-25] MEDS: DIVALPROEX DELAY RELEASE 500 MG TAB PO SCH (08:03)
[2023-02-25 08:30] LABS: BUN Creatinine Ratio 5.3 (10-20); Calcium 8.6 mg/dl (8.6-10.3); Creatinine Clr Calc Pharmacy 11.5 ml/min; Est GFR (African American) 9.2 ml/min; Potassium 4.4 mmol/L (3.5-5.1)
--- NOTE | 2023-02-25 08:32 | Nephrology Progress Note ---
Date of Service February 25, 2023 Assessment & Plan (1) ESRD on dialysis: Plan: * Outpatient HD Rx: MWF HD at [facility] - 4 hours 180 optiflux 400/800 via L IJ TCC. EDW 75.5 kg * Will schedule next HD for am. If discharge is anticipated, please have Mr. Redmond resume outpatient HD at [facility] on Wednesday (2) Anemia: Plan: * Chronic, stable. Not requiring PATRICK therapy. (3) COVID-19: Plan: * Symptomatically improved. Will require steroid taper (4) Bladder mass: Plan: * Outpatient Urology evaluation scheduled (5) Cirrhosis of liver: Plan: * s/p 1L paracentesis 02/23/23 Admission and Anticipated Discharge Date Admission Date: February 18, 2023 Subjective Mr. Redmond was evaluated in his hospital room this morning. He is now breathing comfortably on RA. He reports that his cough has improved Review of Systems Constitutional: no fever Eyes: no problem reported Ear, Nose, Mouth, Throat: no problem reported Respiratory: + cough Cardiovascular: no chest pain Gastrointestinal: no abdominal pain, no vomiting and no diarrhea/loose stools Physical Exam Constitutional: not in distress Eyes: PERRL, conjunctivae normal, anicteric sclerae ENMT: external ear and nose normal, oropharynx normal Neck: trachea midline, no thyromegaly Respiratory: Auscultation: lungs clear to auscultation bilaterally and + rales Cardiovascular: RRR, no murmur, no edema Gastrointestinal (Abdomen): normal bowel sounds, soft, nontender, no hepatosplenomegaly Inspection/Auscultation: + hypoactive bowel sounds Neurologic: Speech / Cognition: normal speech and normal cognition Results & Data Vital Signs (Past 12 Hours) Vital Signs Temp Pulse Pulse Pulse Resp BP Pulse Ox 02/25/23 07:53 36.4 C L 74 20 185/93 H 94 02/25/23 07:14 74 18 93 02/25/23 03:52 36.4 C L 71 18 177/86 H 91 02/25/23 00:16 71 02/25/23 00:02 36.4 C L 73 18 175/87 H 94 02/24/23 22:27 O2 Del Method 02/25/23 07:53 Room Air 02/25/23 07:14 Room Air 02/25/23 03:52 Room Air 02/25/23 00:16 02/25/23 00:02 Room Air 02/24/23 22:27 Room Air Laboratory Results Laboratory Tests 02/25/23 02/25/23 07:13 07:13 WBC 5.59 Hgb 11.3 L Hct 33.7 L Plt Count 273 Sodium 134 L Potassium 4.4 Chloride 100 Carbon Dioxide 23 BUN 34 H Creatinine 6.38 H* Glucose 77 PG Care Time/CCT Total # of Minutes Spent Total Time Spent with Patient: Total time spent is greater than 50% in coordination of care (as documented) at patient's floor/unit and/or counseling patient: Coding Level of Care Code 51952 SUB INP/OBS CARE 3/50MIN Diagnoses ESRD on dialysis N18.6; Z99.2 Anemia D64.9 Anemia type: unspecified type COVID-19 U07.1 Bladder mass N32.89 Cirrhosis of liver K74.60 (2) Anemia Anemia type: unspecified type Qualified Code(s): D64.9 - Anemia, unspecified
--- NOTE | 2023-02-25 12:00 | Discharge Summary ---
Date of Service February 25, 2023 Admission HPI Per Admitting Provider Sisi is a 72 year old male w/ PmHx intracranial hemorrhage s/p cerebral aneurysm repair, ESRD on HD MWF, seizure disorder, atrial fibrillation, history of COPD presenting to the emergency department for 2-3 days of cough and increasing shortness of breath. Patient states that his abdomen has been distended for the past month or so. A few days ago he started to feel more short of breath and developed a deep cough. He also developed abdominal muscular pain that comes about with the deep cough. He denies fevers, chills, chest pain, constipation, diarrhea, dysuria, frequency. In the ED he was found to be positive for COVID-19. WBC 5.32, Hgb 11.4, PT/INR normal, electrolytes WNL, lactate 0.7, mag 2.1, procal 1.11. CXR w/ cardiomegaly and emphysema w/ pulmonary vascular congestion; b/l airspace opacities liekly mild pulmonary edema, correlate clinically for evidence of superimposed infectious/inflammatory pneumonitis. He was put on 2L O2 in the ED, otherwise hemodynamically stable. Admission Exam Per Admitting Provider Constitutional: WD/WN, vitals as above Eyes: PERRL, conjunctivae normal, anicteric sclerae Respiratory: bilateral expiratory wheezing. Cardiovascular: Rate/Rhythm: regular rate and regular rhythm Heart Sounds: normal S1 and normal S2 Gastrointestinal (Abdomen): BS+, distended, non-tender, pliable Psychiatric: A+Ox3, euthymic affect Principal Diagnosis COVID-pneumonia Ascites due to unclear etiology. Labs pending Discharge Exam General: Awake, conversant Heart: S1, S2/regular rate and rhythm, no murmur rubs or gallops Lungs: Clear to auscultation bilaterally. Normal effort Abdomen: Soft/nontender/ distended. No hepatosplenomegaly Extremities: No clubbing/cyanosis. No edema Behavior: Appropriate, cooperative Discharge Data Allergies Allergy/AdvReac Type Severity Reaction Status Date / Time lisinopril AdvReac Mild COUGH Verified 02/18/23 21:01 Consultations 02/18/23 21:50 ED Decision to Admit Stat 02/19/23 00:22 Consult Nephrology Routine Procedures Performed paracentesis done by IR on 02/23/23 Ordered Studies 02/19/23 00:22 US abdomen ltd ascites Routine 02/23/23 IR paracentesis abd w/img US Routine Hospital Course (1) COVID-19: - Pneumonia due to COVID 19 -COVID-19 positive on admission. -CXR bilateral airspace opacity w/ mild pulmonary edema. -No oxygen saturation dips on chart review however placed on 2L nasal cannula. Patient is not needing any more oxygen any longer -CBC, CMP grossly unremarkable. Procal 1.11. discontinue Decadron today -Continue home Stiolto respimat, pulmicort respules, incentive spirometry, flutter valve. clinically improving with improving shortness of breath, cough (2) Abdominal pain determined by examination: - abdominal pain is mostly cough induced. Most likely musculoskeletal. Ultrasound abdomen showed large volume ascites. Patient had paracentesis done 02/23/2023 (3) COPD (chronic obstructive pulmonary disease): -Continue home COPD inhalers, pulm respule, incentive spirometry, flutter valve as above. (4) ESRD on dialysis: -MWF dialysis. -Electrolytes WNL. - nephrology on board for dialysis management. (5) HTN (hypertension): -continue home amlodipine. (6) Bladder mass: -Hx of bladder mass seen on CT from 02/10. -Urology plans to do in office cystoscopy based on note from 02/18. (7) Anemia: -Hgb 11.4, at baseline. -Continue to monitor AM CBC (8) PTSD (post-traumatic stress disorder): -Noted (9) DVT prophylaxis: (10) Hx of atrial flutter: -Continue home amiodarone. (11) Ascites: seen on abdominal CT and ultrasound Liver nodules seen that suggest cirrhosis. No prior diagnosis of cirrhosis Ascites could be related to liver, possible urinary bladder malignancy, recent peritoneal dialysis catheter No fever, no leukocytosis, no abdominal pain paracentesis done peritoneal fluid analysis Does not suggest SBP. labs suggestive of portal hypertension Further tests pending. Can be followed up on by PCP. Plan discharged Total Time Total Time Spent Total Time Spent (In Minutes): 35 Discharge Plan Discharge Items Patient Disposition: Transfer [facility] Reason For Visit: COVID Discharge Diagnosis: COVID-pneumonia Ascites Activity: Resume your previous activity Non-emergency contact: Primary Care Provider Call non-emergency contact if: you have any medication questions and your symptoms worsen Follow-up/Referrals: Naveed Jerry MD [Primary Care Provider] - Diet: Dialysis Renal Addtl Attending Provider Instructions: Advised to follow-up with PCP at shelter Your PCP will follow-up on the results of the peritoneal fluid analysis Pending Studies at Discharge: Yes Studies:: peritoneal fluid analysis results Stand-Alone Forms: My [facility] Skilled Items Patient informed of condition?: Yes DNR: No Discharge Level of Care: Skilled Communicable Disease: Yes Discharge Prognosis: Improving Lines: Mid-Line Urinary Catheter: No Medications and DC Order Prescriptions: Continued Stiolto Respimat 2.5-2.5 mcg/actuation mist 2 puff INH QAM Qty: 4 5RF docusate sodium [Colace] 100 mg capsule 400 mg PO BID polyethylene glycol 3350 [Miralax] 17 gram/dose Powder 17 g PO BID PRN (Reason: Constipation) ipratropium-albuterol 0.5 mg-3 mg(2.5 mg base)/3 mL solution for nebulization 3 ml INHALATION QS PRN (Reason: Shortness Of Breath Or Wheezing) Rx Instructions: ALSO LOW 02 SATS epinephrine [EpiPen] 0.3 mg/0.3 mL Auto-Injector 0.3 mg IM Q4H PRN (Reason: as directed) Auryxia 210 mg iron tablet 420 mg PO TIDWMEAL Qty: 1 0RF Rx Instructions: administer with a meal amlodipine 2.5 mg tablet 2.5 mg PO DAILY Qty: 30 2RF divalproex 500 mg tablet,delayed release (DR/EC) 500 mg PO QAM amiodarone 200 mg Tablet 200 mg PO QPM triamcinolone acetonide 0.1 % Ointment 1 applic EXT BID Qty: 0 0RF Renal Caps 1 mg Capsule 1 cap PO QAM Qty: 0 0RF loratadine [Wal-itin] 10 mg Tablet 10 mg PO Q2D Qty: 0 0RF trazodone 50 mg Tablet 50 mg PO HS famotidine 40 mg Tablet 40 mg PO DAILY tramadol 50 mg Tablet 50 mg PO Q6H PRN (Reason: .Mod pain) bisacodyl [Dulcolax (bisacodyl)] 5 mg Tablet,Delayed Release (Dr/Ec) 5 mg PO DAILY PRN (Reason: Constipation) Suplena Carb Steady 0.04 gram-1.8 kcal/mL liquid 1 ea PO BID Rx Instructions: 120ml per dose hydroxyzine HCl 10 mg Tablet 20 mg PO TID PRN (Reason: .itchy) Mucinex 1,200 mg Tablet Extended Release 12hr 1,200 mg PO BID PRN (Reason: Congestion) cinacalcet [Sensipar] 30 mg Tablet 30 mg PO QAM acetaminophen [Tylenol] 325 mg Tablet 650 mg PO Q4 PRN (Reason: Fever Or Pain) thiamine HCl (vitamin B1) 100 mg tablet 100 mg PO QAM cholecalciferol (vitamin D3) 125 mcg (5,000 unit) capsule 5,000 unit PO QPM Rx Instructions: after supper melatonin 3 mg tablet 15 mg PO HS Discharge Orders: Discharge Order (Routine); Ordered 02/25/23 Ordered By: Amber Aranda Admission Data Admit Date/Time: 02/18/23 23:12 Attending Provider: Amber Aranda Admit Provider: Chip Vides Primary Care Provider: Naveed Jerry Other Providers: Solomon Espinosa Kevin C. Other Interventions: Discharge Summary Assessment (RN) Last Done: 02/25/23 10:13 Coding Level of Care Code 67705 INP/OBS DISCH >30 MIN Diagnoses COVID-19 U07.1 Abdominal pain determined by examination R10.9 COPD (chronic obstructive pulmonary disease) J44.9 COPD type: unspecified COPD ESRD on dialysis N18.6; Z99.2 HTN (hypertension) I10 Hypertension type: unspecified Bladder mass N32.89 Anemia D64.9 Anemia type: unspecified type PTSD (post-traumatic stress disorder) F43.10 DVT prophylaxis Z29.9 Hx of atrial flutter Z86.79 Ascites R18.8
[2023-02-26] MEDS ORDERED: HEPARIN SOD (PORCINE) 1000 UNIT/ML IV SCH (07:00)
[2023-02-26] MEDS ORDERED: HEPARIN SOD (PORCINE) 1000 UNIT/ML IV ONE (07:00)
[2023-02-26] MEDS ORDERED: SODIUM CHLORIDE 0.9% 1,000 ML IV PRN (07:00)
== END 2023-02-25 12:39 | DRG 177 ==
LOC: ED 18:35 → SUATTDRO 23:12 → EDINP 23:12 → 2S 02-19 00:23

== ENCOUNTER 2023-04-27 14:37 | Inpatient (IN) ==
[2023-04-27 15:13] LABS: Basophils # (auto) 0.07 K/uL (0.00-0.20); Basophils % (auto) 0.9 %; Eosinophils # (auto) 0.37 K/uL (0.00-0.50); Eosinophils % (auto) 4.8 %; Hematocrit (blood only) 33.3 % (42.0-52.0); Hemoglobin 10.7 g/dl (14.0-18.0); Immature Granulocytes # (auto) 0.09 K/uL (0.01-0.20); Immature Granulocytes % (auto) 1.2 %; Lymphocytes # (auto) 1.77 K/uL (1.20-3.40); Lymphocytes % (auto) 23.1 %; Mean Corpuscular Hemoglobin 30.6 pg (25.0-34.0); Mean Corpuscular Hgb Conc 32.1 g/dL (32.0-36.0); Mean Corpuscular Volume 95.1 fL (80.0-100.0); Mean Platelet Volume 9.9 fL (9.4-12.4); Monocytes # (auto) 1.17 K/uL (0.11-0.59); Monocytes % (auto) 15.3 %; Neutrophils % (auto) 54.7 %; Platelet Count 276 K/uL (130-400); RDW Coefficient of Variation 15.3 % (11.5-14.5); RDW Standard Deviation 53.1 fL (36.4-46.3); White Blood Count 7.67 K/ul (4.8-10.8)
--- NOTE | 2023-04-27 15:19 | XRay Report ---
SINGLE VIEW CHEST CLINICAL HISTORY: Atypical chest pain. FINDINGS: An AP, portable, upright chest radiograph is compared to study dated 02/18/2023 and correlat ed with chest CT dated 06/30/2021.. A left subclavian central venous catheter is in place. The heart i s enlarged noting atherosclerotic calcification of the thoracic aorta. There is pulmonary vascular co ngestion. Bilateral airspace opacities likely represent interstitial edema. Emphysema and chronic int erstitial thickening similar to previous. No large pleural effusion or pneumothorax is seen. The skel etal structures are osteopenic. The bony thorax is grossly intact. IMPRESSION: 1. Cardiomegaly and emphysema with evidence of congestive failure. 2. Mild bilateral airspace opacities likely represent pulmonary edema. Correlate clinically for evide nce of a superimposed infectious/inflammatory pneumonitis. Radiographic follow-up to resolution is re commended. ACT 112: Negative or not required by law. Electronically signed by: Jeet Ramirez M.D. 04/27/2023 3:17 PM
--- NOTE | 2023-04-27 15:21 | Electrocardiogram Report ---
Test Reason : Blood Pressure : / mmHG Vent. Rate : 086 BPM Atrial Rate : 086 BPM P-R Int : 238 ms QRS Dur : 128 ms QT Int : 408 ms P-R-T Axes : 046 022 072 degrees QTc Int : 488 ms Sinus rhythm with 1st degree A-V block Otherwise Normal ECG When compared with ECG of 08-MAR-2023 17:31, No significant change Confirmed by Michael Maddox ([id number]) on 04/27/2023 3:20:52 PM Referred By: Confirmed By:Michael Maddox
[2023-04-27 15:26] LABS: Albumin Globulin Ratio 1.2 (0.9-2); Albumin Level 3.1 gm/dl (3.4-5.0); BUN Creatinine Ratio 9.4 (10-20); Bilirubin,Total 0.3 mg/dl (0.2-1.0); Calcium 9.3 mg/dl (8.6-10.3); Creatinine Clr Calc Pharmacy 11.1 ml/min; Est GFR (African American) 9.3 ml/min; Globulin 2.6 gm/dl (2.5-4.0); Potassium 4.4 mmol/L (3.5-5.1); Total Protein 5.7 gm/dl (6.0-8.3)
--- NOTE | 2023-04-27 15:28 | Emergency Department Note ---
Impression & Plan Chest pain, Abdominal ascites, UGIB (upper gastrointestinal bleed), Partial obstruction of small intestine, Elevated troponin I level, Abdominal pain, acute, epigastric ED Provider Note NAME: ALEX LAMAS AGE: 72 SEX: M : 1950 ARRIVES VIA: Walk-In INFORMANT: Patient, ED PROVIDER(S): Michael Schulte DO CHIEF COMPLAINT: Chest pain HPI: The patient is a 72-year-old male who presented to the emergency department for an evaluation of chest pain. The patient was receiving paracentesis with interventional radiology. He developed acute substernal chest pain. He denies having any difficulty breathing. He denies having any lower extremity swelling that is new. He does have a history of atrial flutter. He does take blood thinners. He denies having any changes to his medications at this time. ROS: See above HPI for pertinent positives & negatives. A total of 10 systems reviewed and were otherwise negative. PAST MEDICAL HISTORY: See Below PAST SURGICAL HISTORY: See Below FAMILY HISTORY: See Below SOCIAL HISTORY: See Below HOME MEDICATIONS: See Below ALLERGIES: See Below VITALS: See Below PHYSICAL EXAMINATION: GENERAL: Patient is awake alert in no acute distress patient is resting comfortably and showing no signs of anxiety EYES: The conjunctivae are clear. The pupils are round and reactive. EARS, NOSE, MOUTH AND THROAT: The nose is without any evidence of any deformity. NECK: The neck is nontender and supple. RESPIRATORY: Diminished breath sounds are noted throughout. Rales were noted at the bases right greater than left. CARDIOVASCULAR: Regular rate and rhythm noted there no murmurs rubs or gallops normal S1 normal S2. GASTROINTESTINAL: The abdomen is distended. There is diffuse tenderness to palpation but no guarding rigidity. Rectal exam revealed no stool but it was trace heme positive. MUSCULOSKELETAL/EXTREMITIES: There is no evidence of gross deformity full range of motion is noted in the hips and shoulders. SKIN: Pedal edema was noted bilaterally. NEUROLOGIC: Patient is awake alert and oriented x3. MEDICAL DECISION MAKING: The patient is a 72-year-old male who presented to the emergency department for an evaluation of chest pain. The patient received paracentesis today because of ongoing abdominal ascites. He started noticing chest pain and was sent directly to the emergency department from radiology. The patient was found have reproducible epigastric abdominal pain. EKG showed no change from previous and troponin was elevated but upon trending it was not increasing. I do feel as presentation is more consistent with an abdominal source. He did have an episode of emesis which was very dark. Stool was heme positive but only weakly so. I discussed patient's laboratory and radiographic studies with him. Given his history of liver and renal problems I do feel the patient requires further inpatient management. I did discuss his condition at length with his daughter. She states that he is a DNR and would not want aggressive measures. I will discuss his condition with the on-call [facility] hospitalist. Triage Nursing notes reviewed. Prior medical records reviewed Vital Signs: reviewed and remarkable for no significant abnormalities Differential diagnosis: Cardiac ischemia, aortic dissection, pulmonary embolism, pneumothorax, pneumonia, pericarditis, myocarditis, esophageal rupture, GERD, cholecystitis, pancreatitis, musculoskeletal, as well as other pathologies. ER treatment provided: See below Diagnostics interpreted by me: ECG: EKG was obtained in the emergency department. My interpretation is sinus rhythm at 86 bpm. First-degree AV block was noted. There is no acute ST segment abnormalities. There were no PVCs. This was compared to a tracing from March 08, 2023, no significant changes were noted. Cardiac Monitoring: An order was placed for continuous cardiac monitoring. The monitor shows a rate of 87 bpm with sinus rhythm. Laboratory studies: As stated above and show below. Imaging studies: See below. Radiographic imaging was reviewed by myself Consultation(s): [facility]. Past Med/Surg History Medical History Bladder mass Cirrhosis of liver Ascites Confusion Ruptured middle cerebral artery aneurysm Seizure disorder Myoclonic jerking Bradycardia History of marijuana use daily Hx of atrial flutter 06/2021, hospitalized w/pneumonia for almost 3 weeks; dx atrial flutter- currently amiodarone; f/u dr. adkins, [place] Paroxysmal atrial flutter Vitamin D deficiency Hypercalcemia Diverticulosis PAF (paroxysmal atrial fibrillation) Gout hx CCPD (continuous cycling peritoneal dialysis) status port in place left abdomen--dialysis daily at home; second port that has been placed for dialysis. Tremor of both hands Alzheimer disease Hypertension On home oxygen therapy 2L N/C at hs Low back pain Hemorrhoids "not currently flared" Benign neoplasm of skin of nose removed once COPD (chronic obstructive pulmonary disease) HTN (hypertension) Anemia Intracranial hemorrhage 2012 Secondary hyperparathyroidism (of renal origin) Benign prostate hyperplasia Polycystic kidney disease, adult type (09/03/12) Surgical History History of colonoscopy History of tooth extraction all teeth History of cerebral aneurysm repair 2012 [facility] [place]--clip in place; clip IS MRI COMPATIBLE Family History Mother , age 65 of cancer Cancer Father , age 60 from a tree falling on him No problems noted. Other No family history of adverse response to anesthesia Denies family history of Myocardial infarction Social History Smoking Status: Former smoker Tobacco Type: Cigarettes Age Started Using Tobacco: 16; Age Quit Using Tobacco: 71; packs per day: 1; Second Hand Exposure: No; Do You Dip or Chew Tobacco: No; Hx Alcohol Use: No Hx Substance Use: No Preferred Language: Chinese Communication Ability: Effective Communication Ability Comment: pt can sign own consent User Interface Engineer Required: No Beliefs That Will Affect Care: None marital status: Single Current Living Situation: Shelter Current Living Situation Comment: granddaughter and grandson How many Children do You have: 1 Feels Safe at Home: Yes Assistive Devices: Oxygen - Continuous Allergies Allergies Allergy/AdvReac Type Severity Reaction Status Date / Time lisinopril AdvReac Intermediate COUGH Verified 04/27/23 15:11 Home Meds Home Medications Medication Instructions Recorded Confirmed polyethylene glycol 3350 17 17 g PO DAILY Constipation 06/30/21 04/27/23 gram/dose oral powder (Miralax) docusate sodium 100 mg capsule 400 mg PO BID 07/31/21 04/27/23 (Colace) cinacalcet 30 mg tablet (Sensipar) 30 mg PO QAM 03/27/22 04/27/23 epinephrine 0.3 mg/0.3 mL 0.3 mg IM Q4H PRN as directed 08/29/22 04/27/23 injection, auto-injector (EpiPen) ipratropium 0.5 mg-albuterol 3 mg 3 ml inhalation QS PRN Shortness 08/29/22 04/27/23 (2.5 mg base)/3 mL nebulization Of Breath Or Wheezing soln amiodarone 200 mg tablet 200 mg PO QPM 11/17/22 04/27/23 divalproex 500 mg tablet,delayed 500 mg PO QAM 11/17/22 04/27/23 release acetaminophen 325 mg tablet 650 mg PO Q4 PRN Fever Or Pain 01/05/23 04/27/23 (Tylenol) cholecalciferol (vitamin D3) 125 5,000 unit PO QPM 01/05/23 04/27/23 mcg (5,000 unit) capsule thiamine HCl (vitamin B1) 100 mg 100 mg PO QAM 01/05/23 04/27/23 tablet bisacodyl 5 mg tablet,delayed 5 mg PO DAILY PRN Constipation 02/18/23 04/27/23 release (Dulcolax (bisacodyl)) guaifenesin 1,200 mg tablet, 1,200 mg PO BID PRN Congestion 02/18/23 04/27/23 extended release 12 hr (Mucinex) hydroxyzine HCl 10 mg tablet 20 mg PO TID PRN Itching 02/18/23 04/27/23 tramadol 50 mg tablet 50 mg PO Q6H PRN Pain, Moderate 02/18/23 04/27/23 trazodone 50 mg tablet 50 mg PO HS 02/18/23 04/27/23 famotidine 20 mg tablet 20 mg PO DIRECTED 04/27/23 04/27/23 melatonin 5 mg tablet 15 mg PO HS 04/27/23 04/27/23 vitamin B complex and vitamin C 1 cap PO DAILY 04/27/23 04/27/23 no.20-folic acid 1 mg capsule (Virt-Caps) Previous Rx's Medication Instructions Recorded tiotropium 2.5 mcg-olodaterol 2.5 2 puff inhalation QAM #4 grams 02/18/21 mcg/actuation mist for inhalation (Stiolto Respimat) amlodipine 2.5 mg tablet 2.5 mg PO DAILY #30 tabs 09/06/22 ferric citrate 210 mg iron tablet 420 mg (2 x 210 mg iron) PO 09/06/22 (Auryxia) TIDWMEAL #1 tab loratadine 10 mg tablet (Wal-itin) 10 mg PO Q2D #0 tabs 12/10/22 Results & Data (ED) Vital Signs Vital Signs - 24 hr 04/27/23 14:45 04/27/23 14:53 04/27/23 15:00 Temperature 36.6 C Temperature Source Oral Pulse Rate 87 90 89 Pulse Rate [Apical] Pulse Rhythm Regular Pulse Rhythm [Apical] Respiratory Rate 20 20 Respiratory Effort / Characteristics Respiratory Depth Normal Respiratory Pattern Regular Blood Pressure 152/102 H Blood Pressure [Left Arm] Blood Pressure Mean 118 Blood Pressure Mean [Left Arm] Blood Pressure Position Lying Blood Pressure Position [Left Arm] Pulse Oximetry 98 96 Oxygen Delivery Method Nasal Cannula Nasal Cannula Oxygen Flow Rate 3 3 Sepsis Recent Fever Within 48 Hours No Sepsis New/Unexplained Change in Mental Status N/A Sepsis Action Taken by Nursing No Action Required 04/27/23 15:16 04/27/23 16:26 04/27/23 17:39 Temperature Temperature Source Pulse Rate Pulse Rate [Apical] 86 100 H 87 Pulse Rhythm Pulse Rhythm [Apical] Regular Respiratory Rate 20 18 22 Respiratory Effort / Characteristics Non-Labored Respiratory Depth Normal Normal Normal Respiratory Pattern Blood Pressure Blood Pressure [Left Arm] 157/77 H 160/86 H 120/61 Blood Pressure Mean Blood Pressure Mean [Left Arm] 103 110 80 Blood Pressure Position Blood Pressure Position [Left Arm] Lying Lying Lying Pulse Oximetry 98 93 97 Oxygen Delivery Method Nasal Cannula Nasal Cannula Nasal Cannula Oxygen Flow Rate 3 3 3 Sepsis Recent Fever Within 48 Hours Sepsis New/Unexplained Change in Mental Status Sepsis Action Taken by Shelter Medications Current Medication List: was personally reviewed by me Laboratory Data Attestation: I reviewed the patient's lab results. 04/27/23 14:45 04/27/23 14:45 Lab Results 04/27/23 04/27/23 04/27/23 Range/Units 14:45 16:35 Unknown WBC 7.67 (4.8-10.8) K/ul RBC 3.50 L (4.70-6.10) M/uL Hgb 10.7 L (14.0-18.0) g/dl Hct 33.3 L (42.0-52.0) % MCV 95.1 (80.0-100.0) fL MCH 30.6 (25.0-34.0) pg MCHC 32.1 (32.0-36.0) g/dL RDW Std Deviation 53.1 H (36.4-46.3) fL RDW Coeff of Giovana 15.3 H (11.5-14.5) % Plt Count 276 (130-400) K/uL MPV 9.9 (9.4-12.4) fL Immature Gran % (Auto) 1.2 % Neut % (Auto) 54.7 % Lymph % (Auto) 23.1 % Cooke % (Auto) 15.3 % Eos % (Auto) 4.8 % Baso % (Auto) 0.9 % Neut # (Auto) 4.20 (1.40-6.50) K/uL Lymph # (Auto) 1.77 (1.20-3.40) K/uL Cooke # (Auto) 1.17 H (0.11-0.59) K/uL Eos # (Auto) 0.37 (0.00-0.50) K/uL Baso # (Auto) 0.07 (0.00-0.20) K/uL Immature Gran # (Auto) 0.09 (0.01-0.20) K/uL PT 10.9 (9.0-12.0) Seconds INR 1.0 (0.9-1.1) APTT 26.2 (21.0-31.0) Seconds PTT Ratio 0.9 Sodium 137 (136-145) mmol/L Potassium 4.4 (3.5-5.1) mmol/L Chloride 99 (98-107) mmol/L Carbon Dioxide 32 (21-32) mmol/L Anion Gap 6 (3-11) BUN 60 H (6-23) mg/dl Creatinine 6.35 H* (0.6-1.4) mg/dl Est Cr Clr Drug Dosing 11.1 ml/min Est GFR ( Amer) 9.3 ml/min Est GFR (Non-Af Amer) 8.0 ml/min BUN/Creatinine Ratio 9.4 L (10-20) Glucose 73 (70-99(Fasting)) mg/dl Calcium 9.3 (8.6-10.3) mg/dl Total Bilirubin 0.3 (0.2-1.0) mg/dl AST 14 (13-39) U/L ALT 8 (7-52) U/L Alkaline Phosphatase 48 (34-104) U/L Troponin I High Sens 21.2 H 21.4 H (0-20) pg/ml Total Protein 5.7 L (6.0-8.3) gm/dl Albumin 3.1 L (3.4-5.0) gm/dl Globulin 2.6 (2.5-4.0) gm/dl Albumin/Globulin Ratio 1.2 (0.9-2) Lipase 16 (11-82) U/L SARS-CoV-2 (PCR) NEGATIVE (Negative) Influenza Type A (PCR) Negative (Neg) Influenza Type B (PCR) Negative (Neg) RSV (RT-PCR) Negative (Neg) Administered Medications Discontinued Medications Aspirin (Aspirin Chew 324 Mg) 324 mg PO NOW STA Stop: 04/27/23 16:01 Last Admin: 04/27/23 16:23 Dose: 324 mg Documented By: FAHAD Pantoprazole Sodium 40 mg/ (Syringe) 10 mls @ 5 mls/min IV NOW ONE Stop: 04/27/23 16:47 Last Admin: 04/27/23 17:37 Dose: 5 mls/min Documented By: FAHAD Famotidine (Pepcid 20mg Iv Push) 20 mg in 5 mls @ 2.5 mls/min IV NOW STA Stop: 04/27/23 16:47 Last Admin: 04/27/23 17:07 Dose: 2.5 mls/min Documented By: CHAUNCEY Morphine Sulfate (Morphine Sulfate 4 Mg/Ml 1 Ml Carp\\Vial) 4 mg IV NOW STA Stop: 04/27/23 16:16 Last Admin: 04/27/23 16:23 Dose: 4 mg Documented By: FAHAD Ondansetron HCl (Ondansetron Inj 2 Mg/Ml 2 Ml Vial) 4 mg IV NOW STA Stop: 04/27/23 16:16 Last Admin: 04/27/23 16:23 Dose: 4 mg Documented By: FAHAD Imaging Data Attestation: I personally reviewed and interpreted this imaging study as follows: My Impression: 1 view chest x-ray was obtained in the emergency department. My interpretation is cardiomegaly, final report below. CT of the abdomen and pelvis was obtained in the emergency department. My interpretation is dilated gastric shadow, dilated small bowel, no free air, final report below Radiologist's Impression: Chest X-Ray 04/27/23 14:46 SINGLE VIEW CHEST CLINICAL HISTORY: Atypical chest pain. FINDINGS: An AP, portable, upright chest radiograph is compared to study dated 02/18/2023 and correlated with chest CT dated 06/30/2021.. A left subclavian central venous catheter is in place. The heart is enlarged noting atherosclerotic calcification of the thoracic aorta. There is pulmonary vascular congestion. Bilateral airspace opacities likely represent interstitial edema. Emphysema and chronic interstitial thickening similar to previous. No large pleural effusion or pneumothorax is seen. The skeletal structures are osteopenic. The bony thorax is grossly intact. IMPRESSION: 1. Cardiomegaly and emphysema with evidence of congestive failure. 2. Mild bilateral airspace opacities likely represent pulmonary edema. Correlate clinically for evidence of a superimposed infectious/inflammatory pneumonitis. Radiographic follow-up to resolution is recommended. ACT 112: Negative or not required by law. Electronically signed by: Jeet Ramirez M.D. 04/27/2023 3:17 PM Abdomen/Pelvis CT 04/27/23 16:[address] WITHOUT CONTRAST CT DOSE: 1030.49 mGy.cm HISTORY: Nausea. Vomiting. Generalized abdominal pain. TECHNIQUE: Multiaxial CT images of the abdomen and pelvis were performed without contrast. A dose lowering technique was utilized adhering to the principles of ALARA. COMPARISON STUDY: Abdomen and pelvis CT 02/10/2023. FINDINGS: Patchy and linear densities within the lung bases. This favors subsegmental atelectasis. A superimposed pneumonitis would be difficult to exclude. No pneumoperitoneum. No pneumatosis. No acute fractures identified. The heart is enlarged. Mild body wall edema noted. Mildly distended and fluid-filled distal esophagus. The stomach is also moderately distended and filled with gas and fluid. Multiple mildly distended gas and fluid-filled loops of proximal to mid small bowel measure up to 3.6 cm in diameter. The majority of the ileal loops are decompressed. Therefore, this could represent a partial small bowel obstruction. The exact transition point is not clearly identified on this study. Moderate fecal retention. Normal appendix. There is a small amount of ascites remaining status post paracentesis. A 1 cm right posterior bladder wall lesion is better appreciated on the prior CT examination. The prostate gland is mildly enlarged. No retroperitoneal or pelvic lymphadenopathy. Calcified plaque within the normal caliber abdominal aorta. The no hepatic or splenic masses. The gallbladder as unremarkable. The pancreas remains atrophic with mild dilatation of the main pancreatic duct measuring up to 4 mm. Normal adrenal glands. Multiple simple and complex cysts again noted within the kidneys. No hydronephrosis. This remains unchanged. The majority of the cysts demonstrate peripheral calcification. IMPRESSION: 1. Distended and fluid-filled distal esophagus, stomach, and proximal to mid small bowel. The majority of the ileal loops are decompressed. There is gas and stool remaining within the colon. Therefore, this favors a partial small bowel obstruction. The exact transition point is not clearly identified. 2. Small amount of ascites which has improved status post paracentesis. 3. Patchy and linear bibasilar densities. This favors subsegmental atelectasis. A superimposed pneumonia would be difficult to exclude. 4. Mild dilatation of the main pancreatic duct measuring 4 mm. 5. The right posterior bladder wall lesion is better appreciated on the prior CT examination. 6. Additional findings as described above. ACT 112: Negative or not required by law. Electronically signed by: Jef Avery M.D. 04/27/2023 5:32 PM Discharge Plan Visit Data Chief Complaint: Chest Pain Stated Complaint: CHEST MARY ED Provider: Michael Schulte Discharge Problem: Chest pain, Abdominal ascites, UGIB (upper gastrointestinal bleed), Partial obstruction of small intestine, Elevated troponin I level, Abdominal pain, acute, epigastric Patient Disposition: Being Evaluated by Hospitalist Forms Stand Alone Forms: [facility] Prescriptions Prescriptions: No Action Stiolto Respimat 2.5-2.5 mcg/actuation mist 2 puff INH QAM Qty: 4 5RF docusate sodium [Colace] 100 mg capsule 400 mg PO BID polyethylene glycol 3350 [Miralax] 17 gram/dose Powder 17 g PO DAILY ipratropium-albuterol 0.5 mg-3 mg(2.5 mg base)/3 mL solution for nebulization 3 ml INHALATION QS PRN (Reason: Shortness Of Breath Or Wheezing) Rx Instructions: ALSO LOW 02 SATS epinephrine [EpiPen] 0.3 mg/0.3 mL Auto-Injector 0.3 mg IM Q4H PRN (Reason: as directed) Auryxia 210 mg iron tablet 420 mg PO TIDWMEAL Qty: 1 0RF Rx Instructions: administer with a meal amlodipine 2.5 mg tablet 2.5 mg PO DAILY Qty: 30 2RF Rx Instructions: HOLD FOR SBP < 120 divalproex 500 mg tablet,delayed release (DR/EC) 500 mg PO QAM amiodarone 200 mg Tablet 200 mg PO QPM loratadine [Wal-itin] 10 mg Tablet 10 mg PO Q2D Qty: 0 0RF trazodone 50 mg Tablet 50 mg PO HS tramadol 50 mg Tablet 50 mg PO Q6H PRN (Reason: Pain, Moderate) bisacodyl [Dulcolax (bisacodyl)] 5 mg Tablet,Delayed Release (Dr/Ec) 5 mg PO DAILY PRN (Reason: Constipation) hydroxyzine HCl 10 mg Tablet 20 mg PO TID PRN (Reason: Itching) guaifenesin [Mucinex] 1,200 mg Tablet Extended Release 12hr 1,200 mg PO BID PRN (Reason: Congestion) cinacalcet [Sensipar] 30 mg Tablet 30 mg PO QAM acetaminophen [Tylenol] 325 mg Tablet 650 mg PO Q4 MDD 3 GRAMS APAP/24 HOURS PRN (Reason: Fever Or Pain) thiamine HCl (vitamin B1) 100 mg tablet 100 mg PO QAM cholecalciferol (vitamin D3) 125 mcg (5,000 unit) capsule 5,000 unit PO QPM Rx Instructions: after supper famotidine 20 mg Tablet 20 mg PO DIRECTED Rx Instructions: TAKES DAILY ON WEDNESDAY, WEDNESDAY, & WEDNESDAY EVENING AFTER DIALYSIS. Virt-Caps 1 mg Capsule 1 cap PO DAILY melatonin 5 mg Tablet 15 mg PO HS Referrals Referrals: Maximo Taylor MD [Primary Care Provider] - Discharge Problem: Chest pain Qualifiers: Chest pain type: unspecified Qualified Code(s): R07.9 - Chest pain, unspecified Abdominal ascites Qualifiers: Ascites type: other type Qualified Code(s): R18.8 - Other ascites
[2023-04-27 15:29] LABS: Troponin I High Sensitivity 21.2 pg/ml (0-20)
[2023-04-27 15:33] LABS: Partial Thromboplastin Ratio 0.9; Partial Thromboplastin Time 26.2 Seconds (21.0-31.0); Prothrombin Time 10.9 Seconds (9.0-12.0)
[2023-04-27] MEDS ORDERED: ASPIRIN CHEW 324 MG PO STA (16:00)
[2023-04-27] MEDS ORDERED: ONDANSETRON INJ 2 MG/ML 2 ML VIAL IV STA (16:15)
[2023-04-27] MEDS ORDERED: MoRPHine SULFATE 4 MG/ML 1 ML CARP\\VIAL IV STA (16:15)
[2023-04-27 16:22] LABS: Influenza A virus by PCR Negative (Neg); Influenza B virus by PCR Negative (Neg); RSV by PCR Negative (Neg); SARS CoV2 RNA(COVID-19) Ceph NEGATIVE (Negative)
[2023-04-27] MEDS ORDERED: FAMOTIDINE 20MG IV PUSH 20 MG/5 ML SYR IV STA (16:46)
[2023-04-27] MEDS ORDERED: PANTOprazole 40 MG in SYRINGE 0 ML IV ONE (16:46)
--- NOTE | 2023-04-27 17:34 | CT Scan Report ---
ABDOMEN AND PELVIS CT WITHOUT CONTRAST CT DOSE: 1030.49 mGy.cm HISTORY: Nausea. Vomiting. Generalized abdominal pain. TECHNIQUE: Multiaxial CT images of the abdomen and pelvis were performed without contrast. A dose lo wering technique was utilized adhering to the principles of ALARA. COMPARISON STUDY: Abdomen and pelvis CT 02/10/2023. FINDINGS: Patchy and linear densities within the lung bases. This favors subsegmental atelectasis. A superimposed pneumonitis would be difficult to exclude. No pneumoperitoneum. No pneumatosis. No acute fractures identified. The heart is enlarged. Mild body wall edema noted. Mildly distended and fluid- filled distal esophagus. The stomach is also moderately distended and filled with gas and fluid. Mult iple mildly distended gas and fluid-filled loops of proximal to mid small bowel measure up to 3.6 cm in diameter. The majority of the ileal loops are decompressed. Therefore, this could represent a part ial small bowel obstruction. The exact transition point is not clearly identified on this study. Mode rate fecal retention. Normal appendix. There is a small amount of ascites remaining status post parac entesis. A 1 cm right posterior bladder wall lesion is better appreciated on the prior CT examination . The prostate gland is mildly enlarged. No retroperitoneal or pelvic lymphadenopathy. Calcified plaq ue within the normal caliber abdominal aorta. The no hepatic or splenic masses. The gallbladder as un remarkable. The pancreas remains atrophic with mild dilatation of the main pancreatic duct measuring up to 4 mm. Normal adrenal glands. Multiple simple and complex cysts again noted within the kidneys. No hydronephrosis. This remains unchanged. The majority of the cysts demonstrate peripheral calcifica tion. IMPRESSION: 1. Distended and fluid-filled distal esophagus, stomach, and proximal to mid small bowel. The majorit y of the ileal loops are decompressed. There is gas and stool remaining within the colon. Therefore, this favors a partial small bowel obstruction. The exact transition point is not clearly identified. 2. Small amount of ascites which has improved status post paracentesis. 3. Patchy and linear bibasilar densities. This favors subsegmental atelectasis. A superimposed pneumo angela would be difficult to exclude. 4. Mild dilatation of the main pancreatic duct measuring 4 mm. 5. The right posterior bladder wall lesion is better appreciated on the prior CT examination. 6. Additional findings as described above. ACT 112: Negative or not required by law. Electronically signed by: Jef Avery M.D. 04/27/2023 5:32 PM
--- NOTE | 2023-04-27 18:13 | History & Physical Report ---
Date of Service April 27, 2023 Assessment & Plan (1) Small bowel obstruction: Plan: NPO, will defer IV fluids due to ESRD and pulmonary edema on imaging Will avoid NG tube for now given liver cirrhosis with most recent EGD in 2019 therefore cannot confirm no varices but if recurrent vomiting recommend placement Consult general surgery (2) Acute upper GI bleed: Plan: Some concern for this given mildly heme positive stool and possible coffee ground vomiting Given liver cirrhosis (altohugh no varices on EGD in 2020) would usually treat with octreotide and ceftriaxone in addition to pantoprazole however this diagnosis is only possible and hemoglobin appears stable. As long as hemoglobin is stable will treat as heart burn with IV pantoprazole and IV famotidine (3) ESRD (end stage renal disease) on dialysis: Plan: Consult nephrology Pulmonary edema to be managed by dialysis (4) Anemia: Plan: Appears stable and chronic presumably due to ESRD Ferritin, Fe studies, B12, folate, retic count with AM labs (5) Elevated troponin: Plan: Stable. Chest pain does not represent ACS. Now resolved most likely reflux. (6) Chest pain: Plan: Suspect heartburn. Pantoprazole and famotidine as above. Now resolved. (7) Cirrhosis of liver: Plan: s/p paracentesis today (8) HTN (hypertension): Plan: Hold amlodipine while NPO (9) COPD (chronic obstructive pulmonary disease): Plan: Continue his routine inhalers (10) Chronic respiratory failure with hypoxia: Plan: Patient reports chronic 3lPM O2 use although I could not find a 2 step confirming this. Last admission in March he appeared to be on 2LPM O2. (11) Paroxysmal atrial flutter: Plan: Hold amiodarone while NPO, If he developed a. flutter recommend IV amiodarone while NPO Plan VTE Prophylaxis - deferred in setting of possible GI bleed Diet - NPO Disposition - admit to PCU Admission and Anticipated Discharge Date Admission Date: April 27, 2023 History of Present Illness Chief Complaint: Nausea, vomiting Primary Care Provider: Maximo Taylor MD Sisi Redmond is a 72 year old male who presents to the ER from interventional radiology following outpatient paracentesis after developing chest pain near the end of the procedure and nausea and vomiting. Vomiting dark brown vomitus per triage note. Stool mildly heme positive. Patient unable to give me much of a history as appears tired. He reports feeling well prior to paracentesis today and confirms he was vomiting after this. He denies any current chest or abdominal pain. No respiratory or urinary symptoms. No recent change in bowels. We discussed possible NG tube but given no current nausea and possibility of varices since his last EGD will hold off currently. He reports using 3LPM O2 chronically and does not feel short of breath. Allergies Allergy/AdvReac Type Severity Reaction Status Date / Time lisinopril AdvReac Intermediate COUGH Verified 04/27/23 15:11 Home Medications Medication Instructions Recorded Confirmed Type tiotropium 2.5 mcg-olodaterol 2.5 2 puff inhalation QAM #4 grams 02/18/21 04/27/23 Rx mcg/actuation mist for inhalation (Stiolto Respimat) polyethylene glycol 3350 17 17 g PO DAILY Constipation 06/30/21 04/27/23 History gram/dose oral powder (Miralax) docusate sodium 100 mg capsule 400 mg PO BID 07/31/21 04/27/23 History (Colace) cinacalcet 30 mg tablet (Sensipar) 30 mg PO QAM 03/27/22 04/27/23 History epinephrine 0.3 mg/0.3 mL 0.3 mg IM Q4H PRN as directed 08/29/22 04/27/23 History injection, auto-injector (EpiPen) ipratropium 0.5 mg-albuterol 3 mg 3 ml inhalation QS PRN Shortness 08/29/22 04/27/23 History (2.5 mg base)/3 mL nebulization Of Breath Or Wheezing soln amlodipine 2.5 mg tablet 2.5 mg PO DAILY #30 tabs 09/06/22 04/27/23 Rx ferric citrate 210 mg iron tablet 420 mg (2 x 210 mg iron) PO 09/06/22 04/27/23 Rx (Auryxia) TIDWMEAL #1 tab amiodarone 200 mg tablet 200 mg PO QPM 11/17/22 04/27/23 History divalproex 500 mg tablet,delayed 500 mg PO QAM 11/17/22 04/27/23 History release loratadine 10 mg tablet (Wal-itin) 10 mg PO Q2D #0 tabs 12/10/22 04/27/23 Rx acetaminophen 325 mg tablet 650 mg PO Q4 PRN Fever Or Pain 01/05/23 04/27/23 History (Tylenol) cholecalciferol (vitamin D3) 125 5,000 unit PO QPM 01/05/23 04/27/23 History mcg (5,000 unit) capsule thiamine HCl (vitamin B1) 100 mg 100 mg PO QAM 01/05/23 04/27/23 History tablet bisacodyl 5 mg tablet,delayed 5 mg PO DAILY PRN Constipation 02/18/23 04/27/23 History release (Dulcolax (bisacodyl)) guaifenesin 1,200 mg tablet, 1,200 mg PO BID PRN Congestion 02/18/23 04/27/23 History extended release 12 hr (Mucinex) hydroxyzine HCl 10 mg tablet 20 mg PO TID PRN Itching 02/18/23 04/27/23 History tramadol 50 mg tablet 50 mg PO Q6H PRN Pain, Moderate 02/18/23 04/27/23 History trazodone 50 mg tablet 50 mg PO HS 02/18/23 04/27/23 History famotidine 20 mg tablet 20 mg PO DIRECTED 04/27/23 04/27/23 History melatonin 5 mg tablet 15 mg PO HS 04/27/23 04/27/23 History vitamin B complex and vitamin C 1 cap PO DAILY 04/27/23 04/27/23 History no.20-folic acid 1 mg capsule (Virt-Caps) Past Med/Surg History Medical History Bladder mass Cirrhosis of liver Ascites Confusion Ruptured middle cerebral artery aneurysm Seizure disorder Myoclonic jerking Bradycardia History of marijuana use daily Hx of atrial flutter 06/2021, hospitalized w/pneumonia for almost 3 weeks; dx atrial flutter- currently amiodarone; f/u [place] Paroxysmal atrial flutter Vitamin D deficiency Hypercalcemia Diverticulosis PAF (paroxysmal atrial fibrillation) Gout hx CCPD (continuous cycling peritoneal dialysis) status port in place left abdomen--dialysis daily at home; second port that has been placed for dialysis. Tremor of both hands Alzheimer disease Hypertension On home oxygen therapy 2L N/C at hs Low back pain Hemorrhoids "not currently flared" Benign neoplasm of skin of nose removed once COPD (chronic obstructive pulmonary disease) HTN (hypertension) Anemia Intracranial hemorrhage 2012 Secondary hyperparathyroidism (of renal origin) Benign prostate hyperplasia Polycystic kidney disease, adult type (09/03/12) Surgical History History of colonoscopy History of tooth extraction all teeth History of cerebral aneurysm repair 2012 [facility] [place]--clip in place; clip IS MRI COMPATIBLE Family History Mother , age 65 of cancer Cancer Father , age 60 from a tree falling on him No problems noted. Other No family history of adverse response to anesthesia Denies family history of Myocardial infarction Social History Smoking Status: Former smoker Tobacco Type: Cigarettes Age Started Using Tobacco: 16; Age Quit Using Tobacco: 71; packs per day: 1; Second Hand Exposure: No; Do You Dip or Chew Tobacco: No; Hx Alcohol Use: No Hx Substance Use: Yes Last Used Substance: Unknown Last Used Substance Other:: last used 2-3 months ago Preferred Language: Grenadian Communication Ability: Effective Communication Ability Comment: pt can sign own consent Nutrition Specialist Required: No Beliefs That Will Affect Care: None marital status: Single Current Living Situation: [facility] Current Living Situation Comment: granddaughter and grandson How many Children do You have: 1 Feels Safe at Home: Yes Safety Concerns: Feels Safe At This Time Assistive Devices: None Review of Systems Review of Systems: All systems reviewed & are unremarkable except as noted in HPI & below Physical Exam Constitutional: well developed; + not well nourished and no acute distress Eyes: PERRL, conjunctivae normal, anicteric sclerae ENMT: Mouth: + dry oral mucous membranes Neck: trachea midline, no thyromegaly Respiratory: normal respiratory effort, lungs clear to auscultation Cardiovascular: Rate/Rhythm: regular rate and regular rhythm Heart Sounds: + murmur (apical holosystolic) Vessels: no JVD Extremities: normal capillary refill and + pedal edema (1+ b/l equal); no calf tenderness Gastrointestinal (Abdomen): Inspection/Auscultation: + abdomen distended Percussion/Palpation: abdomen soft; abdomen nontender, no guarding and abdomen not rigid Musculoskeletal: no cyanosis or clubbing, extremities motor strength 5/5 Skin: no rashes, warm and dry Neurologic: moves all extremities, awake and + confused Psychiatric: Orientation: alert and oriented to person; + not oriented to place and + not oriented to time Results & Data Results & Data Vital Signs (Past 12 Hours) Vital Signs Temp Pulse Pulse Resp BP BP Pulse Ox 04/27/23 17:39 87 22 120/61 97 04/27/23 16:26 100 H 18 160/86 H 93 04/27/23 15:16 86 20 157/77 H 98 04/27/23 15:00 89 04/27/23 14:53 90 20 96 04/27/23 14:45 36.6 C 87 20 152/102 H 98 O2 Del Method O2 Flow Rate 04/27/23 17:39 Nasal Cannula 3 04/27/23 16:26 Nasal Cannula 3 04/27/23 15:16 Nasal Cannula 3 04/27/23 15:00 04/27/23 14:53 Nasal Cannula 3 04/27/23 14:45 Nasal Cannula 3 Laboratory Results Abnormal lab results 04/27/23 04/27/23 Range/Units 14:45 16:35 RBC 3.50 L (4.70-6.10) M/uL Hgb 10.7 L (14.0-18.0) g/dl Hct 33.3 L (42.0-52.0) % RDW Std Deviation 53.1 H (36.4-46.3) fL RDW Coeff of Giov[place] 15.3 H (11.5-14.5) % [place] # (Auto) 1.17 H (0.11-0.59) K/uL BUN 60 H (6-23) mg/dl Creatinine 6.35 H* (0.6-1.4) mg/dl BUN/Creatinine Ratio 9.4 L (10-20) Troponin I High Sens 21.2 H 21.4 H (0-20) pg/ml Total Protein 5.7 L (6.0-8.3) gm/dl Albumin 3.1 L (3.4-5.0) gm/dl Diagnostic Findings SINGLE VIEW CHEST CLINICAL HISTORY: Atypical chest pain. FINDINGS: An AP, portable, upright chest radiograph is compared to study dated 02/18/2023 and correlated with chest CT dated 06/30/2021.. A left subclavian central venous catheter is in place. The heart is enlarged noting ath erosclerotic calcification of the thoracic aorta. There is pulmonary vascular congestion. Bilateral airspace opacities likely represent interstitial edema. Emphysema and chronic interstitial thickening similar to previous. No large pleural effusion or pneumothorax is seen. The skeletal structures are osteopenic. The bony thorax is grossly intact. IMPRESSION: 1. Cardiomegaly and emphysema with evidence of congestive failure. 2. Mild bilateral airspace opacities likely represent pulmonary edema. Correlate clinically for evidence of a superimposed infectious/inflammatory pneumonitis. Radiographic follow-up to resolution is recommended. ABDOMEN AND PELVIS CT WITHOUT CONTRAST CT DOSE: 1030.49 mGy.cm HISTORY: Nausea. Vomiting. Generalized abdominal pain. TECHNIQUE: Multiaxial CT images of the abdomen and pelvis were performed without contrast. A dose lowering technique was utilized adhering to the principles of ALARA. COMPARISON STUDY: Abdomen and pelvis CT 02/10/2023. FINDINGS: Patchy and linear densities within the lung bases. This favors subsegmental atelectasis. A superimposed pneumonitis would be difficult to exclude. No pneumoperitoneum. No pneumatosis. No acute fractures identified. The heart is enlarged. Mild body wall edema noted. Mildly distended and fluid-filled distal esophagus. The stomach is also moderately distended and filled with gas and fluid. Multiple mildly distended gas and fluid-filled loops of proximal to mid small bowel measure up to 3.6 cm in diameter. The majority of the ileal loops are decompressed. Therefore, this could represent a partial small bowel obstruction. The exact transition point is not clearly identified on this study. Moderate fecal retention. Normal appendix. There is a small amount of ascites remaining status post paracentesis. A 1 cm right posterior bladder wall lesion is better appreciated on the prior CT examination. The prostate gland is mildly enlarged. No retroperitoneal or pelvic lymphadenopathy. Calcified plaque within the normal caliber abdominal aorta. The no hepatic or splenic masses. The gallbladder as unremarkable. The pancreas remains atrophic with mild dilatation of the main pancreatic duct measuring up to 4 mm. Normal adrenal glands. Multiple simple and complex cysts again noted within the kidneys. No hydronephrosis. This remains unchanged. The majority of the cysts demonstrate peripheral calcification. IMPRESSION: 1. Distended and fluid-filled distal esophagus, stomach, and proximal to mid small bowel. The majority of the ileal loops are decompressed. There is gas and stool remaining within the colon. Therefore, this favors a partial small bowel obstruction. The exact transition point is not clearly identified. 2. Small amount of ascites which has improved status post paracentesis. 3. Patchy and linear bibasilar densities. This favors subsegmental atelectasis. A superimposed pneumonia would be difficult to exclude. 4. Mild dilatation of the main pancreatic duct measuring 4 mm. 5. The right posterior bladder wall lesion is better appreciated on the prior CT examination. 6. Additional findings as described above. Medications Administered ER Medications Given: ASA 324mg Morphine 4mg IV Ondansetron 4mg IV Pantoprazole 40mg IV Famotidine 20mg IV ECG Rate (beats per minute): 86 Rhythm: normal sinus Findings: + 1st degree AV block Comparison ECG Date: from (March 08, 2023) Change: no significant change Code Status & VTE Plan Code Status Full VTE Prophylaxis Plan VTE Prophylaxis will be ordered: No PG Care Time/CCT Total # of Minutes Spent Total Time Spent with Patient: Total time spent is greater than 50% in coordination of care (as documented) at patient's floor/unit and/or counseling patient: Coding Level of Care Code 22819 INT INP/OBS CARE 3/75MIN Diagnoses Small bowel obstruction K56.609 Acute upper GI bleed K92.2 ESRD (end stage renal disease) on dialysis N18.6; Z99.2 Anemia N18.6; D63.1; Z99.2 Anemia type: due to chronic kidney disease Chronic kidney disease stage: on chronic dialysis Elevated troponin R77.8 Chest pain R07.9 Chest pain type: unspecified Cirrhosis of liver K74.60 HTN (hypertension) I10 Hypertension type: unspecified COPD (chronic obstructive pulmonary disease) J44.9 COPD type: unspecified COPD Chronic respiratory failure with hypoxia J96.11 Paroxysmal atrial flutter I48.92 (4) Anemia Anemia type: due to chronic kidney disease Chronic kidney disease stage: on chronic dialysis Qualified Code(s): N18.6 - End stage renal disease; D63.1 - Anemia in chronic kidney disease; Z99.2 - Dependence on renal dialysis (6) Chest pain Chest pain type: unspecified Qualified Code(s): R07.9 - Chest pain, un specified (8) HTN (hypertension) Hypertension type: unspecified Qualified Code(s): I10 - Essential (primary) hypertension (9) COPD (chronic obstructive pulmonary disease) COPD type: unspecified COPD Qualified Code(s): J44.9 - Chronic obstructive pulmonary disease, unspecified
[2023-04-27 19:21] LABS: Hematocrit (blood only) 31.3 % (42.0-52.0); Hemoglobin 10.1 g/dl (14.0-18.0); Mean Corpuscular Hemoglobin 30.5 pg (25.0-34.0); Mean Corpuscular Hgb Conc 32.3 g/dL (32.0-36.0); Mean Corpuscular Volume 94.6 fL (80.0-100.0); Mean Platelet Volume 9.6 fL (9.4-12.4); Platelet Count 257 K/uL (130-400); RDW Standard Deviation 52.3 fL (36.4-46.3); Red Blood Count 3.31 M/uL (4.70-6.10); White Blood Count 7.88 K/ul (4.8-10.8)
[2023-04-27] MEDS ORDERED: ACETAMINOPHEN 1,000 MG/100 ML VIAL IV PRN (21:38)
[2023-04-27] MEDS: AMIODARONE 200 MG TAB PO SCH (22:00)
[2023-04-27] MEDS: MELATONIN 3 MG TAB PO SCH (22:01)
[2023-04-27] MEDS: PANTOprazole 40 MG in SYRINGE 0 ML IV SCH (22:12)
[2023-04-27] MEDS: FAMOTIDINE 20 MG in SYRINGE 3 ML IV SCH (22:12)
[2023-04-28 00:48] LABS: Hematocrit (blood only) 31.2 % (42.0-52.0); Hemoglobin 10.2 g/dl (14.0-18.0); Mean Corpuscular Hemoglobin 30.8 pg (25.0-34.0); Mean Corpuscular Hgb Conc 32.7 g/dL (32.0-36.0); Mean Corpuscular Volume 94.3 fL (80.0-100.0); Mean Platelet Volume 9.4 fL (9.4-12.4); Platelet Count 269 K/uL (130-400); RDW Coefficient of Variation 14.8 % (11.5-14.5); RDW Standard Deviation 51.5 fL (36.4-46.3); Red Blood Count 3.31 M/uL (4.70-6.10); White Blood Count 7.91 K/ul (4.8-10.8)
[2023-04-28] MEDS ORDERED: ONDANSETRON INJ 2 MG/ML 2 ML VIAL IV STA (04:50)
[2023-04-28] MEDS ORDERED: HYDROmorphone INJ 0.5 MG/0.5 ML SYR IV STA (05:26)
[2023-04-28 07:48] LABS: Hematocrit (blood only) 32.9 % (42.0-52.0); Hemoglobin 10.6 g/dl (14.0-18.0); Mean Corpuscular Hemoglobin 30.6 pg (25.0-34.0); Mean Corpuscular Hgb Conc 32.2 g/dL (32.0-36.0); Mean Corpuscular Volume 95.1 fL (80.0-100.0); Mean Platelet Volume 9.7 fL (9.4-12.4); Platelet Count 305 K/uL (130-400); RDW Coefficient of Variation 14.8 % (11.5-14.5); RDW Standard Deviation 51.5 fL (36.4-46.3); Red Blood Count 3.46 M/uL (4.70-6.10); Reticulocyte % 1.6 % (0.5-2.0); Reticulocytes # 0.05 10^6/uL (0.02-0.10); White Blood Count 9.27 K/ul (4.8-10.8)
[2023-04-28 08:08] LABS: Albumin Level 2.6 gm/dl (3.4-5.0); Bilirubin,Total 0.4 mg/dl (0.2-1.0); Calcium 8.8 mg/dl (8.6-10.3); Potassium 5.3 mmol/L (3.5-5.1)
--- NOTE | 2023-04-28 08:17 | Surgery Consultation ---
Date of Consultation April 28, 2023 Assessment & Plan (1) Small bowel obstruction: partial SBO agree with IVF ng if recurrent vomiting poor surgical candidate Present on Admission?: Yes History of Present Illness Attending Physician: Catrachito Klein MD History of Present Illness This is a 72 year old male who presented to the ER from interventional radiology following outpatient paracentesis for ascites associated with cirrhosis. He developed chest pain near the end of the procedure. He also had some nausea and vomiting, dark brown vomitus per triage note. He claims BMs have been dark. Currently not had a BM since yesterday. Some flatus. He denies any current chest or abdominal pain. No respiratory or urinary symptoms. A CT scan shows possible partial SBO. Allergies Allergy/AdvReac Type Severity Reaction Status Date / Time lisinopril AdvReac Intermediate COUGH Verified 04/27/23 15:11 Home Medications Medication Instructions Recorded Confirmed Type tiotropium 2.5 mcg-olodaterol 2.5 2 puff inhalation QAM #4 grams 02/18/21 04/27/23 Rx mcg/actuation mist for inhalation (Stiolto Respimat) polyethylene glycol 3350 17 17 g PO DAILY Constipation 06/30/21 04/27/23 History gram/dose oral powder (Miralax) docusate sodium 100 mg capsule 400 mg PO BID 07/31/21 04/27/23 History (Colace) cinacalcet 30 mg tablet (Sensipar) 30 mg PO QAM 03/27/22 04/27/23 History epinephrine 0.3 mg/0.3 mL 0.3 mg IM Q4H PRN as directed 08/29/22 04/27/23 History injection, auto-injector (EpiPen) ipratropium 0.5 mg-albuterol 3 mg 3 ml inhalation QS PRN Shortness 08/29/22 1 06/27/22 History (2.5 mg base)/3 mL nebulization Of Breath Or Wheezing soln amlodipine 2.5 mg tablet 2.5 mg PO DAILY #30 tabs 09/06/22 04/27/23 Rx ferric citrate 210 mg iron tablet 420 mg (2 x 210 mg iron) PO 09/06/22 04/27/23 Rx (Auryxia) TIDWMEAL #1 tab amiodarone 200 mg tablet 200 mg PO QPM 11/17/22 04/27/23 History divalproex 500 mg tablet,delayed 500 mg PO QAM 11/17/22 04/27/23 History release loratadine 10 mg tablet (Wal-itin) 10 mg PO Q2D #0 tabs 12/10/22 04/27/23 Rx acetaminophen 325 mg tablet 650 mg PO Q4 PRN Fever Or Pain 01/05/23 04/27/23 History (Tylenol) cholecalciferol (vitamin D3) 125 5,000 unit PO QPM 01/05/23 04/27/23 History mcg (5,000 unit) capsule thiamine HCl (vitamin B1) 100 mg 100 mg PO QAM 01/05/23 04/27/23 History tablet bisacodyl 5 mg tablet,delayed 5 mg PO DAILY PRN Constipation 02/18/23 04/27/23 History release (Dulcolax (bisacodyl)) guaifenesin 1,200 mg tablet, 1,200 mg PO BID PRN Congestion 02/18/23 04/27/23 History extended release 12 hr (Mucinex) hydroxyzine HCl 10 mg tablet 20 mg PO TID PRN Itching 02/18/23 04/27/23 History tramadol 50 mg tablet 50 mg PO Q6H PRN Pain, Moderate 02/18/23 04/27/23 History trazodone 50 mg tablet 50 mg PO HS 02/18/23 04/27/23 History famotidine 20 mg tablet 20 mg PO DIRECTED 04/27/23 04/27/23 History melatonin 5 mg tablet 15 mg PO HS 04/27/23 04/27/23 History vitamin B complex and vitamin C 1 cap PO DAILY 04/27/23 04/27/23 History no.20-folic acid 1 mg capsule (Virt-Caps) Patient History Medical History Bladder mass Cirrhosis of liver Ascites Confusion Ruptured middle cerebral artery aneurysm Seizure disorder Myoclonic jerking Bradycardia History of marijuana use daily Hx of atrial flutter 06/2021, hospitalized w/pneumonia for almost 3 weeks; dx atrial flutter- currently amiodarone; f/[place] Paroxysmal atrial flutter Vitamin D deficiency Hypercalcemia Diverticulosis PAF (paroxysmal atrial fibrillation) Gout hx CCPD (continuous cycling peritoneal dialysis) status port in place left abdomen--dialysis daily at home; second port that has been placed for dialysis. Tremor of both hands Alzheimer disease Hypertension On home oxygen therapy 2L N/C at hs Low back pain Hemorrhoids "not currently flared" Benign neoplasm of skin of nose removed once COPD (chronic obstructive pulmonary disease) HTN (hypertension) Anemia Intracranial hemorrhage 2012 Secondary hyperparathyroidism (of renal origin) Benign prostate hyperplasia Polycystic kidney disease, adult type (09/03/12) Surgical History History of colonoscopy History of tooth extraction all teeth History of cerebral aneurysm repair 2012 [facility] [place]--clip in place; clip IS MRI COMPATIBLE Family History Mother , age 65 of cancer Cancer Father , age 60 from a tree falling on him No problems noted. Other No family history of adverse response to anesthesia Denies family history of Myocardial infarction Social History Smoking Status: Former smoker Tobacco Type: Cigarettes Age Started Using Tobacco: 16; Age Quit Using Tobacco: 71; packs per day: 1; Second Hand Exposure: No; Do You Dip or Chew Tobacco: No; Hx Alcohol Use: No Hx Substance Use: Yes Last Used Substance: Unknown Last Used Substance Other:: last used 2-3 months ago Preferred Language: Maltese Communication Ability: Effective Communication Ability Comment: pt can sign own consent Countersinker Required: No Beliefs That Will Affect Care: None marital status: Single Current Living Situation: Jail Current Living Situation Comment: granddaughter and grandson How many Children do You have: 1 Feels Safe at Home: Yes Safety Concerns: Feels Safe At This Time Assistive Devices: None Review of Systems Constitutional: + weakness and + anorexia; no fever and no chills Eyes: no problem reported Ear, Nose, Mouth, Throat: no problem reported Respiratory: + dyspnea; no cough Cardiovascular: + chest pain Gastrointestinal: + abdominal pain, + nausea, + vomiting, + coffee ground emesis and + melena Genitourinary: no dysuria Musculoskeletal: no back pain and no neck pain Integumentary: no lesions Neurologic: + generalized weakness; no localized wea kness Psychiatric: + depression; no behavioral changes Hematologic / Lymphatic: + easy bruising; no easy bleeding Physical Exam Constitutional: + ill appearing; no acute distress Eyes: PERRL ENMT: external ear and nose normal, oropharynx normal Neck: trachea midline Respiratory: normal respiratory effort, lungs clear to auscultation Cardiovascular: RRR, no murmur, no edema Gastrointestinal (Abdomen): Inspection/Auscultation: abdomen normal to inspection, + abdomen distended and normal bowel sounds Percussion/Palpation: + abdomen tender and abdomen soft; no guarding and abdomen not rigid Musculoskeletal: Head/Neck/Chest: normocephalic and head atraumatic Skin: no rashes, warm and dry Psychiatric: Orientation: alert and oriented x 3 Results & Data Vital Signs (Past 12 Hours) Vital Signs Temp Pulse Pulse Resp BP Pulse Ox O2 Del Method 04/28/23 03:01 36.5 C 89 18 134/75 94 Nasal Cannula 04/27/23 22:36 36.5 C 83 18 127/63 93 Nasal Cannula 04/27/23 20:32 83 04/27/23 20:32 Nasal Cannula 04/27/23 20:32 36.5 C 83 18 138/76 95 Nasal Cannula O2 Flow Rate 04/28/23 03:01 04/27/23 22:36 3 04/27/23 20:32 04/27/23 20:32 3 04/27/23 20:32 3 Diagnostic Findings ABDOMEN AND PELVIS CT WITHOUT CONTRAST CT DOSE: 1030.49 mGy.cm HISTORY: Nausea. Vomiting. Generalized abdominal pain. TECHNIQUE: Multiaxial CT images of the abdomen and pelvis were performed without contrast. A dose lowering technique was utilized adhering to the principles of ALARA. COMPARISON STUDY: Abdomen and pelvis CT 02/10/2023. FINDINGS: Patchy and linear densities within the lung bases. This favors subsegmental atelectasis. A superimposed pneumonitis would be difficult to exclude. No pneumoperitoneum. No pneumatosis. No acute fractures identified. The heart is enlarged. Mild body wall edema noted. Mildly distended and fluid-filled distal esophagus. The stomach is also moderately distended and filled with gas and fluid. Multiple mildly distended gas and fluid-filled loops of proximal to mid small bowel measure up to 3.6 cm in diameter. The majority of the ileal loops are decompressed. Therefore, this could represent a partial small bowel obstruction. The exact transition point is not clearly identified on this study. Moderate fecal retention. Normal appendix. There is a small amount of ascites remaining status post paracentesis. A 1 cm right posterior bladder wall lesion is better appreciated on the prior CT examination. The prostate gland is mildly enlarged. No retroperitoneal or pelvic lymphadenopathy. Calcified plaque within the normal caliber abdominal aorta. The no hepatic or splenic masses. The gallbladder as unremarkable. The pancreas remains atrophic with mild dilatation of the main pancreatic duct measuring up to 4 mm. Normal adrenal glands. Multiple simple and complex cysts again noted within the kidneys. No hydronephrosis. This remains unchanged. The majority of the cysts demonstrate peripheral calcification. IMPRESSION: 1. Distended and fluid-filled distal esophagus, stomach, and proximal to mid small bowel. The majority of the ileal loops are decompressed. There is gas and stool remaining within the colon. Therefore, this favors a partial small bowel obstruction. The exact transition point is not clearly identified. 2. Small amount of ascites which has improved status post paracentesis. 3. Patchy and linear bibasilar densities. This favors subsegmental atelectasis. A superimposed pneumonia would be difficult to exclude. 4. Mild dilatation of the main pancreatic duct measuring 4 mm. 5. The right posterior bladder wall lesion is better appreciated on the prior CT examination. 6. Additional findings as described above.
[2023-04-28 08:21] LABS: Albumin Globulin Ratio 1.2 (0.9-2); BUN Creatinine Ratio 9.3 (10-20); Creatinine Clr Calc Pharmacy 9.3 ml/min; Est GFR (African American) 7.6 ml/min; Est GFR (Non-African American) 6.6 ml/min; Globulin 2.2 gm/dl (2.5-4.0); Total Protein 4.8 gm/dl (6.0-8.3)
[2023-04-28 08:26] LABS: Folate (Folic Acid),Ser orPlas > 22.30 ng/ml (>5.38)
[2023-04-28 08:27] LABS: Vitamin B12 477 pg/ml (180-914)
[2023-04-28] MEDS ORDERED: MoRPHine SULFATE 2 MG/ML CARP IV PRN (08:31)
[2023-04-28] MEDS ORDERED: PROCHLORPERAZINE 5 MG in SYRINGE 4 ML IV PRN (08:31)
[2023-04-28] MEDS ORDERED: PROMETHAZINE HCL INJ 25 MG/ML 1 ML VIAL IM PRN (08:31)
[2023-04-28] MEDS ORDERED: MoRPHine SULFATE 4 MG/ML 1 ML CARP\\VIAL IV PRN (08:31)
[2023-04-28] MEDS ORDERED: SODIUM CHLORIDE 0.45 % 1,000 ML IV SCH (08:45)
[2023-04-28] MEDS: UMECLIDINIUM/VILANTEROL 62.5/25MCG 7 PUFFS/INHALER INH SCH (09:04)
[2023-04-28] MEDS: FAMOTIDINE 20 MG in SYRINGE 3 ML IV SCH ×2 (09:08→20:52)
[2023-04-28] MEDS ORDERED: SODIUM CHLORIDE 0.9% 1,000 ML IV PRN (09:20)
--- NOTE | 2023-04-28 09:20 | Nephrology Consultation ---
Date of Consultation April 28, 2023 Assessment & Plan (1) ESRD (end stage renal disease) on dialysis: * Will provide HD today according to chronic outpatient orders. Orders have been placed in EMR and HD RN notified * Outpatient HD Rx: [facility] MWF 4 hr, 2K, 35 HCO3, F-180NR, Qb400/Qd800, EDW 75.7kg, L IJ TCC * Monitor PRP (2) Partial obstruction of small intestine: * Conservative management * Surgery following but poor surgical candidate (3) HTN (hypertension): * Blood pressure is currently acceptable. Will monitor (4) Anemia: * Hgb 10.6. No acute indication for PATRICK during HD today History of Present Illness Reason for Consultation: ESKD on IHD Attending Physician: Trent Christianson, History of Present Illness Mr. Redmond is a 72 year old male who is seen at the request of Dr. Christianson to provide inpatient HD and assist w/ medical management. Information for the HPI is obtained from patient interview and review of the EMR. 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 He is on IHD at [facility] under the care of Dr. Romo (MWF 4 hr, 2K, 35 HCO3, F-180NR, Qb400/Qd800, EDW 75.7kg, L IJ TCC). Mr. Redmond had previously been on PD. His peritoneal catheter has been removed and he transitioned back to HD due to progressive dementia and difficulty completing dialysis treatments at home. Mr. Redmond has a h/o recurrent abdominal ascites requiring periodic paracentesis. He underwent paracentesis by VIR yesterday but developed chest discomfort, N&V following the procedure. Patient was transferred to the [facility] where ECG revealed 1st degree AVB but no ischemic change, troponin was stable at 21, CXR had mild pulmonary edema, noncontrast abdominal CT revealed a partial small bowel obstruction. General surgery has recommended NG if recurrent vomiting but conservative management as patient is a poor surgical candidate. 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 Allergies Allergy/AdvReac Type Severity Reaction Status Date / Time lisinopril AdvReac Intermediate COUGH Verified 04/27/23 15:11 Home Medications Medication Instructions Recorded Confirmed Type tiotropium 2.5 mcg-olodaterol 2.5 2 puff inhalation QAM #4 grams 02/18/21 04/27/23 Rx mcg/actuation mist for inhalation (Stiolto Respimat) polyethylene glycol 3350 17 17 g PO DAILY Constipation 06/30/21 04/27/23 History gram/dose oral powder (Miralax) docusate sodium 100 mg capsule 400 mg PO BID 07/31/21 04/27/23 History (Colace) cinacalcet 30 mg tablet (Sensipar) 30 mg PO QAM 03/27/22 04/27/23 History epinephrine 0.3 mg/0.3 mL 0.3 mg IM Q4H PRN as directed 08/29/22 04/27/23 History injection, auto-injector (EpiPen) ipratropium 0.5 mg-albuterol 3 mg 3 ml inhalation QS PRN Shortness 08/29/22 04/27/23 History (2.5 mg base)/3 mL nebulization Of Breath Or Wheezing soln amlodipine 2.5 mg tablet 2.5 mg PO DAILY #30 tabs 09/06/22 04/27/23 Rx ferric citrate 210 mg iron tablet 420 mg (2 x 210 mg iron) PO 09/06/22 04/27/23 Rx (Auryxia) TIDWMEAL #1 tab amiodarone 200 mg tablet 200 mg PO QPM 11/17/22 04/27/23 History divalproex 500 mg tablet,delayed 500 mg PO QAM 11/17/22 04/27/23 History release loratadine 10 mg tablet (Wal-itin) 10 mg PO Q2D #0 tabs 12/10/22 04/27/23 Rx acetaminophen 325 mg tablet 650 mg PO Q4 PRN Fever Or Pain 01/05/23 04/27/23 History (Tylenol) cholecalciferol (vitamin D3) 125 5,000 unit PO QPM 01/05/23 04/27/23 History mcg (5,000 unit) capsule thiamine HCl (vitamin B1) 100 mg 100 mg PO QAM 01/05/23 04/27/23 History tablet bisacodyl 5 mg tablet,delayed 5 mg PO DAILY PRN Constipation 02/18/23 04/27/23 History release (Dulcolax (bisacodyl)) guaifenesin 1,200 mg tablet, 1,200 mg PO BID PRN Congestion 02/18/23 04/27/23 History extended release 12 hr (Mucinex) hydroxyzine HCl 10 mg tablet 20 mg PO TID PRN Itching 02/18/23 04/27/23 History tramadol 50 mg tablet 50 mg PO Q6H PRN Pain, Moderate 02/18/23 04/27/23 History trazodone 50 mg tablet 50 mg PO HS 02/18/23 04/27/23 History famotidine 20 mg tablet 20 mg PO DIRECTED 04/27/23 04/27/23 History melatonin 5 mg tablet 15 mg PO HS 04/27/23 04/27/23 History vitamin B complex and vitamin C 1 cap PO DAILY 04/27/23 04/27/23 History no.20-folic acid 1 mg capsule (Virt-Caps) Patient History Medical History Bladder mass Cirrhosis of liver Ascites Confusion Ruptured middle cerebral artery aneurysm Seizure disorder Myoclonic jerking Bradycardia History of marijuana use daily Hx of atrial flutter 06/2021, hospitalized w/pneumonia for almost 3 weeks; dx atrial flutter- currently amiodarone; f/u dr. [place], [place] Paroxysmal atrial flutter Vitamin D deficiency Hypercalcemia Diverticulosis PAF (paroxysmal atrial fibrillation) Gout hx CCPD (continuous cycling peritoneal dialysis) status port in place left abdomen--dialysis daily at home; second port that has been placed for dialysis. Tremor of both hands Alzheimer disease Hypertension On home oxygen therapy 2L N/C at hs Low back pain Hemorrhoids "not currently flared" Benign neoplasm of skin of nose removed once COPD (chronic obstructive pulmonary disease) HTN (hypertension) Anemia Intracranial hemorrhage 2012 Secondary hyperparathyroidism (of renal origin) Benign prostate hyperplasia Polycystic kidney disease, adult type (09/03/12) Surgical History History of colonoscopy History of tooth extraction all teeth History of cerebral aneurysm repair 2012 [facility] Presby--clip in place; clip IS MRI COMPATIBLE Family History Mother , age 65 of cancer Cancer Father , age 60 from a tree falling on him No problems noted. Other No family history of adverse response to anesthesia Denies family history of Myocardial infarction Social History Smoking Status: Former smoker Tobacco Type: Cigarettes Age Started Using Tobacco: 16; Age Quit Using Tobacco: 71; packs per day: 1; Second Hand Exposure: No; Do You Dip or Chew Tobacco: No; Hx Alcohol Use: No Hx Substance Use: Yes Last Used Substance: Unknown Last Used Substance Other:: last used 2-3 months ago Preferred Language: Kyrgyz Communication Ability: Effective Communication Ability Comment: pt can sign own consent General Passenger Agent Required: No Beliefs That Will Affect Care: None marital status: Single Current Living Situation: [facility] Current Living Situation Comment: granddaughter and grandson How many Children do You have: 1 Feels Safe at Home: Yes Safety Concerns: Feels Safe At This Time Assistive Devices: None Review of Systems Constitutional: no fever Eyes: no problem reported Ear, Nose, Mouth, Throat: no problem reported Respiratory: no cough and no dyspnea Cardiovascular: no chest pain Gastrointestinal: + abdominal pain, + bloating and + vomit ing Integumentary: no rash Physical Exam Constitutional: + ill appearing; not in distress Eyes: PERRL, conjunctivae normal, anicteric sclerae ENMT: external ear and nose normal, oropharynx normal Neck: trachea midline, no thyromegaly Respiratory: normal respiratory effort, lungs clear to auscultation Cardiovascular: Rate/Rhythm: regular rate and regular rhythm Heart Sounds: + murmur Extremities: + edema (1+ pretibial edema) Gastrointestinal (Abdomen): Inspection/Auscultation: + abdomen distended and + hypoactive bowel sounds Percussion/Palpation: no guarding Musculoskeletal: Extremities: no cyanosis Neurologic: Speech / Cognition: + abnormal cognition Results & Data Vital Signs (Past 12 Hours) Vital Signs Temp Pulse Resp BP Pulse Ox O2 Del Method O2 Flow Rate 04/28/23 08:00 36.6 C 74 16 124/63 96 Nasal Cannula 04/28/23 03:01 36.5 C 89 18 134/75 94 Nasal Cannula 04/27/23 22:36 36.5 C 83 18 127/63 93 Nasal Cannula 3 Laboratory Results Laboratory Results WBC 9.27 K/ul (4.8-10.8) 04/28/23 07:06 RBC 3.46 M/uL (4.70-6.10) L 04/28/23 07:06 Hgb 10.6 g/dl (14.0-18.0) L 04/28/23 07:06 Hct 32.9 % (42.0-52.0) L 04/28/23 07:06 MCV 95.1 fL (80.0-100.0) 04/28/23 07:06 MCH 30.6 pg (25.0-34.0) 04/28/23 07:06 MCHC 32.2 g/dL (32.0-36.0) 04/28/23 07:06 RDW Std Deviation 51.5 fL (36.4-46.3) H 04/28/23 07:06 RDW Coeff of Giovana 14.8 % (11.5-14.5) H 04/28/23 07:06 Plt Count 305 K/uL (130-400) 04/28/23 07:06 MPV 9.7 fL (9.4-12.4) 04/28/23 07:06 Immature Gran % (Auto) 1.2 % 04/27/23 14:45 Neut % (Auto) 54.7 % 04/27/23 14:45 Lymph % (Auto) 23.1 % 04/27/23 14:45 [place] % (Auto) 15.3 % 04/27/23 14:45 Eos % (Auto) 4.8 % 04/27/23 14:45 Baso % (Auto) 0.9 % 04/27/23 14:45 Reticulocyte % (Auto) 1.6 % (0.5-2.0) 04/28/23 07:06 Neut # (Auto) 4.20 K/uL (1.40-6.50) 04/27/23 14:45 Lymph # (Auto) 1.77 K/uL (1.20-3.40) 04/27/23 14:45 [place] # (Auto) 1.17 K/uL (0.11-0.59) H 04/27/23 14:45 Eos # (Auto) 0.37 K/uL (0.00-0.50) 04/27/23 14:45 Baso # (Auto) 0.07 K/uL (0.00-0.20) 04/27/23 14:45 Reticulocyte # 0.05 10^6/uL (0.02-0.10) 04/28/23 07:06 Immature Gran # (Auto) 0.09 K/uL (0.01-0.20) 04/27/23 14:45 PT 10.9 Seconds (9.0-12.0) 04/27/23 14:45 INR 1.0 (0.9-1.1) 04/27/23 14:45 APTT 26.2 Seconds (21.0-31.0) 04/27/23 14:45 PTT Ratio 0.9 04/27/23 14:45 Sodium 137 mmol/L (136-145) 04/28/23 07:06 Potassium 5.3 mmol/L (3.5-5.1) H D 04/28/23 07:06 Chloride 99 mmol/L (98-107) 04/28/23 07:06 Carbon Dioxide 32 mmol/L (21-32) 04/28/23 07:06 Anion Gap 6 (3-11) 04/28/23 07:06 BUN 70 mg/dl (6-23) H 04/28/23 07:06 Creatinine 7.49 mg/dl (0.6-1.4) H* D 04/28/23 07:06 Est Cr Clr Drug Dosing 9.3 ml/min 04/28/23 07:06 Est GFR ( Amer) 7.6 ml/min 04/28/23 07:06 Est GFR (Non-Af Amer) 6.6 ml/min 04/28/23 07:06 BUN/Creatinine Ratio 9.3 (10-20) L 04/28/23 07:06 Glucose 103 mg/dl (70-99(Fasting)) H 04/28/23 07:06 Calcium 8.8 mg/dl (8.6-10.3) 04/28/23 07:06 Total Bilirubin 0.4 mg/dl (0.2-1.0) 04/28/23 07:06 AST 12 U/L (13-39) L 04/28/23 07:06 ALT 7 U/L (7-52) 04/28/23 07:06 Alkaline Phosphatase 40 U/L (34-104) 04/28/23 07:06 Ammonia 29.0 umol/L (18-72) 04/28/23 07:06 Troponin I High Sens 21.4 pg/ml (0-20) H 04/27/23 16:35 Total Protein 4.8 gm/dl (6.0-8.3) L 04/28/23 07:06 Albumin 2.6 gm/dl (3.4-5.0) L 04/28/23 07:06 Globulin 2.2 gm/dl (2.5-4.0) L 04/28/23 07:06 Albumin/Globulin Ratio 1.2 (0.9-2) 04/28/23 07:06 Lipase 16 U/L (11-82) 04/27/23 14:45 Vitamin B12 477 pg/ml (180-914) 04/28/23 07:06 Folate > 22.30 ng/ml (>5.38) 04/28/23 07:06 Nasal Screen MRSA (PCR) Positive (Negative) A 04/27/23 Unknown Valproic Acid 23 mcg/ml (50-100) L 04/27/23 17:58 SARS-CoV-2 (PCR) NEGATIVE (Negative) 04/27/23 Unknown Influenza Type A (PCR) Negative (Neg) 04/27/23 Unknown Influenza Type B (PCR) Negative (Neg) 04/27/23 Unknown RSV (RT-PCR) Negative (Neg) 04/27/23 Unknown Blood Type O Positive 04/27/23 18:56 Antibody Screen NEGATIVE 04/27/23 18:56 Impressions Chest X-Ray 04/27/23 14:46 SINGLE VIEW CHEST CLINICAL HISTORY: Atypical chest pain. FINDINGS: An AP, portable, upright chest radiograph is compared to study dated 02/18/2023 and correlated with chest CT dated 06/30/2021.. A left subclavian central venous catheter is in place. The heart is enlarged noting atherosclerotic calcification of the thoracic aorta. There is pulmonary vascular congestion. Bilateral airspace opacities likely represent interstitial edema. Emphysema and chronic interstitial thickening similar to previous. No large pleural effusion or pneumothorax is seen. The skeletal structures are osteopenic. The bony thorax is grossly intact. IMPRESSION: 1. Cardiomegaly and emphysema with evidence of congestive failure. 2. Mild bilateral airspace opacities likely represent pulmonary edema. Correlate clinically for evidence of a superimposed infectious/inflammatory pneumonitis. Radiographic follow-up to resolution is recommended. ACT 112: Negative or not required by law. Electronically signed by: Jeet Ramirez M.D. 04/27/2023 3:17 PM Abdomen/Pelvis CT 04/27/23 16:[address] WITHOUT CONTRAST CT DOSE: 1030.49 mGy.cm HISTORY: Nausea. Vomiting. Generalized abdominal pain. TECHNIQUE: Multiaxial CT images of the abdomen and pelvis were performed without contrast. A dose lowering technique was utilized adhering to the principles of ALARA. COMPARISON STUDY: Abdomen and pelvis CT 02/10/2023. FINDINGS: Patchy and linear densities within the lung bases. This favors subsegmental atelectasis. A superimposed pneumonitis would be difficult to exclude. No pneumoperitoneum. No pneumatosis. No acute fractures identified. The heart is enlarged. Mild body wall edema noted. Mildly distended and fluid-filled distal esophagus. The stomach is also moderately distended and filled with gas and fluid. Multiple mildly distended gas and fluid-filled loops of proximal to mid small bowel measure up to 3.6 cm in diameter. The majority of the ileal loops are decompressed. Therefore, this could represent a partial small bowel obstruction. The exact transition point is not clearly identified on this study. Moderate fecal retention. Normal appendix. There is a small amount of ascites remaining status post paracentesis. A 1 cm right posterior bladder wall lesion is better appreciated on the prior CT examination. The prostate gland is mildly enlarged. No retroperitoneal or pelvic lymphadenopathy. Calcified plaque within the normal caliber abdominal aorta. The no hepatic or splenic masses. The gallbladder as unremarkable. The pancreas remains atrophic with mild dilatation of the main pancreatic duct measuring up to 4 mm. Normal adrenal glands. Multiple simple and complex cysts again noted within the kidneys. No hydronephrosis. This remains unchanged. The majority of the cysts demonstrate peripheral calcification. IMPRESSION: 1. Distended and fluid-filled distal esophagus, stomach, and proximal to mid small bowel. The majority of the ileal loops are decompressed. There is gas and stool remaining within the colon. Therefore, this favors a partial small bowel obstruction. The exact transition point is not clearly identified. 2. Small amount of ascites which has improved status post paracentesis. 3. Patchy and linear bibasilar densities. This favors subsegmental atelectasis. A superimposed pneumonia would be difficult to exclude. 4. Mild dilatation of the main pancreatic duct measuring 4 mm. 5. The right posterior bladder wall lesion is better appreciated on the prior CT examination. 6. Additional findings as described above. ACT 112: Negative or not required by law. Electronically signed by: Jef Avery M.D. 04/27/2023 5:32 PM PG Care Time/CCT Total # of Minutes Spent Total Time Spent with Patient: Total time spent is greater than 50% in coordination of care (as documented) at patient's floor/unit and/or counseling patient: Coding Level of Care Code 40582 IN/OBS CONSULT LVL 5,80M Diagnoses ESRD (end stage renal disease) on dialysis N18.6; Z99.2 Partial obstruction of small intestine K56.600 HTN (hypertension) I10 Hypertension type: unspecified Anemia, unspecified type D64.9 Anemia type: unspecified type (3) HTN (hypertension) Hypertension type: unspecified Qualified Code(s): I10 - Essential (primary) hypertension (4) Anemia Anemia type: unspecified type Qualified Code(s): D64.9 - Anemia, unspecified
[2023-04-28] MEDS: PANTOprazole 40 MG in SYRINGE 0 ML IV SCH ×2 (10:08→20:34)
--- NOTE | 2023-04-28 12:41 | XCELERA ---
[id number] \\[id number]
--- NOTE | 2023-04-28 15:17 | Hospitalist Progress Note ---
Date of Service April 28, 2023 Assessment & Plan (1) Small bowel obstruction: Plan: feeling better feeling slight hunger abdomen examines reassuring - start clear liquids ongoing pain/nausea control gentle IVF appreciate surgical input (2) Acute upper GI bleed: Plan: initially some concern for this given mildly heme positive stool and possible coffee ground vomiting --after further review/observation and stability - does not appear to be at play at this time (3) ESRD (end stage renal disease) on dialysis: Plan: nephrology assistance appreciated (4) Anemia: Plan: Appears stable and chronic presumably due to ESRD retic low, b12/folate OK. iron chronic disease/low in october ongoing nephrology management since largely ties to esrd (5) Elevated troponin: Plan: Stable. Chest pain does not represent ACS. Now resolved most likely reflux. (6) Chest pain: Plan: Suspect heartburn. Pantoprazole and famotidine as above. Now resolved. (7) Cirrhosis of liver: Plan: s/p paracentesis 04/27 (8) HTN (hypertension): Plan: BP reasonable given the situation (9) COPD (chronic obstructive pulmonary disease): Plan: Continue his routine inhalers (10) Chronic respiratory failure with hypoxia: Plan: chronic O2 use. stable (11) Paroxysmal atrial flutter: Plan: rate controlled Plan VTE Prophylaxis - deferred in setting of possible GI bleed Diet - NPO Disposition -stable for med/surg Admission and Anticipated Discharge Date Admission Date: April 27, 2023 Subjective feeling better belly pain less a little hungry Review of Systems Review of Systems: All systems reviewed & are unremarkable except as noted in HPI & below Physical Exam Physical Exam: gen aao pleasant nad heent nc at mmm abd soft mild distention not really tender no guarding no rebound no rigidity. skin iwthout rashes pallor or icterus neuro no focal deficits Results & Data Results & Data Vital Signs (Past 12 Hours) Vital Signs Temp Pulse Pulse Pulse Resp BP BP 04/28/23 15:00 93 H 143/72 H 04/28/23 14:30 92 H 136/86 04/28/23 14:00 92 H 130/77 04/28/23 13:30 95 H 135/77 04/28/23 13:00 96 H 141/83 H 04/28/23 12:30 89 146/74 H 04/28/23 12:00 86 152/72 H 04/28/23 12:00 98.1 F 87 20 135/64 04/28/23 11:30 82 147/70 H 04/28/23 11:22 97.9 F 82 04/28/23 09:14 04/28/23 08:00 97.9 F 74 16 124/63 Pulse Ox O2 Del Method O2 Flow Rate 04/28/23 15:00 04/28/23 14:30 04/28/23 14:00 04/28/23 13:30 04/28/23 13:00 04/28/23 12:30 04/28/23 12:00 04/28/23 12:00 98 Nasal Cannula 04/28/23 11:30 04/28/23 11:22 04/28/23 09:14 Nasal Cannula 3 04/28/23 08:00 96 Nasal Cannula PG Care Time/CCT Total # of Minutes Spent Total Time Spent with Patient: Total time spent is greater than 50% in coordination of care (as documented) at patient's floor/unit and/or counseling patient: Coding Level of Care Code 72842 SUB INP/OBS CARE 3/50MIN Diagnoses Small bowel obstruction K56.609 Acute upper GI bleed K92.2 ESRD (end stage renal disease) on dialysis N18.6; Z99.2 Anemia N18.6; D63.1; Z99.2 Anemia type: due to chronic kidney disease Chronic kidney disease stage: on chronic dialysis Elevated troponin R77.8 Chest pain R07.9 Chest pain type: unspecified Cirrhosis of liver K74.60 HTN (hypertension) I10 Hypertension type: unspecified COPD (chronic obstructive pulmonary disease) J44.9 COPD type: unspecified COPD Chronic respiratory failure with hypoxia J96.11 Paroxysmal atrial flutter I48.92 (4) Anemia Anemia type: due to chronic kidney disease Chronic kidney disease stage: on chronic dialysis Qualified Code(s): N18.6 - End stage renal disease; D63.1 - Anemia in chronic kidney disease; Z99.2 - Dependence on renal dialysis (6) Chest pain Chest pain type: unspecified Qualified Code(s): R07.9 - Chest pain, unspecified (8) HTN (hypertension) Hypertension type: unspecified Qualified Code(s): I10 - Essential (primary) hypertension (9) COPD (chronic obstructive pulmonary disease) COPD type: unspecified COPD Qualified Code(s): J44.9 - Chronic obstructive pulmonary disease, unspecified
[2023-04-28 17:55] LABS: Hematocrit (blood only) 39.3 % (42.0-52.0); Hemoglobin 12.4 g/dl (14.0-18.0); Mean Corpuscular Hemoglobin 30.2 pg (25.0-34.0); Mean Corpuscular Hgb Conc 31.6 g/dL (32.0-36.0); Mean Corpuscular Volume 95.9 fL (80.0-100.0); Mean Platelet Volume 9.5 fL (9.4-12.4); Platelet Count 356 K/uL (130-400); RDW Coefficient of Variation 14.9 % (11.5-14.5); RDW Standard Deviation 52.5 fL (36.4-46.3); White Blood Count 10.49 K/ul (4.8-10.8)
[2023-04-28 17:58] LABS: Magnesium 2.3 mg/dl (1.7-2.4)
[2023-04-28 18:34] LABS: Ferritin 843.9 ng/ml (8-388)
[2023-04-28] MEDS ORDERED: ALBUT/IPRATROP 3MG/0.5MG NEB 3 ML VIAL INH PRN (19:40)
[2023-04-28] MEDS ORDERED: hydrOXYzine HCl 10 MG TAB PO PRN (19:40)
[2023-04-28] MEDS: AMIODARONE 200 MG TAB PO SCH (20:34)
[2023-04-28] MEDS: POLYETHYLENE (MIRALAX) 17 GM PACK PO SCH (20:37)
[2023-04-28] MEDS: MELATONIN 3 MG TAB PO SCH (20:37)
[2023-04-28] MEDS: DOCUSATE SODIUM 100 MG CAP PO SCH (20:52)
[2023-04-28] MEDS: traZODone HCL 50 MG TAB PO SCH (20:52)
[2023-04-28] MEDS ORDERED: DOCUSATE SODIUM 100 MG CAP PO SCH (21:00)
--- NOTE | 2023-04-29 07:39 | Hospitalist Progress Note ---
Date of Service April 29, 2023 Assessment & Plan (1) Small bowel obstruction: Plan: #SBO SBO improving. Tolerating clear liquids can advance diet to full liquids. Continue pain control/nausea control. Continue gentle IVF. Appreciate surgical input #UBIG Initially there was concern for GIB with heme positive stool and ?coffee ground emesis. Etiology seems to be more so in the setting SBO #ESRD Patient on hemodialysis. Nephrology on board - appreciate recs #Anemia Appears stable and chronic presumably due to ESRD. Retic low, b12/folate WNL. Iron chronic disease/low in october. Ongoing nephrology management since largely ties to ESRD #Elevated Troponin Stable. Chest pain does not represent ACS. Now resolved most likely reflux. #Chest Pain Suspect heartburn. Pantoprazole and famotidine as above. Now resolved. #Cirrhosis s/p paracentesis 04/27 #HTN BP reasonable given the situation #COPD #Chronic respiratory failure with hypoxia Continue his routine inhalers. Chronic O2 use. Stable #Paroxysmal a fib Rate controlled. On Amiodarone 200 mg. VTE Prophylaxis - deferred in setting of possible GI bleed Diet - FLD Disposition -stable for med/surg (2) Acute upper GI bleed: (3) ESRD (end stage renal disease) on dialysis: (4) Anemia: (5) Elevated troponin: (6) Chest pain: (7) Cirrhosis of liver: (8) HTN (hypertension): (9) COPD (chronic obstructive pulmonary disease): (10) Chronic respiratory failure with hypoxia: (11) Paroxysmal atrial flutter: Admission and Anticipated Discharge Date Admission Date: April 27, 2023 Supervising Physician Co-Signing Physician Notes I personally examined the patient and verified all reyes points of history and exam, discussed case, and agree with decision making with Dr Lopez Feeling better. [place] doing better. No new complaints. Updated daughter via [employer] was talking with him whenever I entered the room. Vitals noted, in general he is awake and alert pleasant no distress. Abdomen is soft mildly distended but nontender no guarding rebound or rigidity. Partial SBOimprovingadvance diet. Hopefully home soon. othwerwise as above Subjective Patient doing well this morning. Tolerating PO well. Is hungry. Physical Exam 2 Physical Exam: Gen: well appearing elderly male in NAD HEENT: AT NC MMM CV: RRR no m/r/g clinically well perfused Resp: CTAB no wheezing Abd: distended, soft, non-tender Psych: appropriate mood and affect Neuro: alert and oriented Results & Data Results & Data Vital Signs (Past 12 Hours) Vital Signs Temp Pulse Pulse Resp BP BP Pulse Ox 04/29/23 03:47 36.9 C 80 18 122/61 97 04/29/23 01:29 66 04/28/23 22:50 36.9 C 88 20 104/60 92 04/28/23 20:45 O2 Del Method O2 Flow Rate 04/29/23 03:47 Nasal Cannula 3.0 04/29/23 01:29 04/28/23 22:50 Nasal Cannula 3 04/28/23 20:45 Nasal Cannula 3 Laboratory Results 04/29/23 06:51 04/29/23 06:51 Resident Activity Tracking Resident Involvement: Resident Care Provided Care Provided: Adult Hospital Medicine (4) Anemia Anemia type: due to chronic kidney disease Chronic kidney disease stage: on chronic dialysis Qualified Code(s): N18.6 - End stage renal disease; D63.1 - Anemia in chronic kidney disease; Z99.2 - Dependence on renal dialysis (6) Chest pain Chest pain type: unspecified Qualified Code(s): R07.9 - Chest pain, unspecified (8) HTN (hypertension) Hypertension type: unspecified Qualified Code(s): I10 - Essential (primary) hypertension (9) COPD (chronic obstructive pulmonary disease) COPD type: unspecified COPD Qualified Code(s): J44.9 - Chronic obstructive pulmonary disease, unspecified
[2023-04-29 07:41] LABS: Basophils # (auto) 0.09 K/uL (0.00-0.20); Basophils % (auto) 0.9 %; Eosinophils # (auto) 0.39 K/uL (0.00-0.50); Eosinophils % (auto) 3.8 %; Hemoglobin 10.6 g/dl (14.0-18.0); Immature Granulocytes # (auto) 0.09 K/uL (0.01-0.20); Immature Granulocytes % (auto) 0.9 %; Lymphocytes # (auto) 0.76 K/uL (1.20-3.40); Lymphocytes % (auto) 7.5 %; Mean Corpuscular Hemoglobin 30.5 pg (25.0-34.0); Mean Corpuscular Hgb Conc 31.2 g/dL (32.0-36.0); Mean Corpuscular Volume 97.7 fL (80.0-100.0); Mean Platelet Volume 9.5 fL (9.4-12.4); Monocytes # (auto) 1.28 K/uL (0.11-0.59); Monocytes % (auto) 12.6 %; Neutrophils # (auto) 7.55 K/uL (1.40-6.50); Neutrophils % (auto) 74.3 %; Platelet Count 304 K/uL (130-400); RDW Coefficient of Variation 14.8 % (11.5-14.5); RDW Standard Deviation 53.1 fL (36.4-46.3); Red Blood Count 3.48 M/uL (4.70-6.10); White Blood Count 10.16 K/ul (4.8-10.8)
[2023-04-29] MEDS: CINACALCET HCL 30 MG TAB PO SCH (08:36)
[2023-04-29 08:37] LABS: BUN Creatinine Ratio 7.7 (10-20); Calcium 9.3 mg/dl (8.6-10.3); Creatinine Clr Calc Pharmacy 13.1 ml/min; Est GFR (African American) 11.9 ml/min; Est GFR (Non-African American) 10.3 ml/min; Potassium 4.5 mmol/L (3.5-5.1)
[2023-04-29] MEDS: THIAMINE HCL 100 MG TAB PO SCH (08:37)
[2023-04-29] MEDS: NEPHROCAPS PO SCH (08:37)
[2023-04-29] MEDS: DIVALPROEX DELAY RELEASE 500 MG TAB PO SCH (08:37)
[2023-04-29] MEDS: DOCUSATE SODIUM 100 MG CAP PO SCH ×2 (08:38→21:21)
[2023-04-29] MEDS: FAMOTIDINE 20 MG in SYRINGE 3 ML IV SCH (08:39)
[2023-04-29] MEDS: POLYETHYLENE (MIRALAX) 17 GM PACK PO SCH ×2 (08:39→21:25)
[2023-04-29] MEDS: UMECLIDINIUM/VILANTEROL 62.5/25MCG 7 PUFFS/INHALER INH SCH (08:43)
[2023-04-29] MEDS: PANTOprazole 40 MG in SYRINGE 0 ML IV SCH ×2 (08:43→21:22)
--- NOTE | 2023-04-29 08:55 | Nephrology Progress Note ---
Date of Service April 29, 2023 Assessment & Plan (1) ESRD (end stage renal disease) on dialysis: Plan: * Volume status and electrolyte balance are acceptable. No acute indication for HD today. Will schedule next treatment for am * Outpatient HD Rx: [facility] MWF 4 hr, 2K, 35 HCO3, F-180NR, Qb400/Qd800, EDW 75.7kg, L IJ TCC * Monitor PRP (2) Partial obstruction of small intestine: Plan: * Conservative management * Surgery following but poor surgical candidate (3) HTN (hypertension): Plan: * Blood pressure is currently acceptable. Will monitor (4) Anemia: Plan: * Hgb 10.6. No acute indication for PATRICK during HD today Admission and Anticipated Discharge Date Admission Date: April 27, 2023 Subjective Mr. Redmond was evaluated in his hospital room this morning. He reports that his abdominal discomfort is improved. He would like to try a liquid diet. Mr. Redmond was dialyzed via his L IJ TCC yesterday for 2.3 L UF. There were no complications Review of Systems Constitutional: no fever Eyes: no problem reported Ear, Nose, Mouth, Throat: no problem reported Respiratory: no cough and no dyspnea Cardiovascular: no chest pain Gastrointestinal: no abdominal pain Integumentary: no rash Physical Exam Constitutional: + ill appearing; not in distress Eyes: PERRL, conjunctivae normal, anicteric sclerae ENMT: external ear and nose normal, oropharynx normal Neck: trachea midline, no thyromegaly Respiratory: normal respiratory effort, lungs clear to auscultation Cardiovascular: Rate/Rhythm: regular rate and regular rhythm Heart Sounds: + murmur Extremities: no edema Gastrointestinal (Abdomen): Inspection/Auscultation: + abdomen distended and + hypoactive bowel sounds Percussion/Palpation: no guarding Musculoskeletal: Extremities: no cyanosis Neurologic: Speech / Cognition: + abnormal cognition Results & Data Vital Signs (Past 12 Hours) Vital Signs Temp Pulse Pulse Resp BP BP Pulse Ox 04/29/23 03:47 36.9 C 80 18 122/61 97 04/29/23 01:29 66 04/28/23 22:50 36.9 C 88 20 104/60 92 O2 Del Method O2 Flow Rate 04/29/23 03:47 Nasal Cannula 3.0 04/29/23 01:29 04/28/23 22:50 Nasal Cannula 3 Laboratory Results Laboratory Tests 04/28/23 04/28/23 04/29/23 07:06 07:06 06:51 WBC 10.16 Hgb 10.6 L Hct 34.0 L Plt Count Sodium Potassium Chloride 102 Carbon Dioxide 29 BUN 40 H D Creatinine 5.17 H* D Glucose 116 H Calcium 9.3 Transferrin % Sat 22 Ferritin 843.9 H Albumin 2.6 L 04/29/23 04/29/23 06:51 06:51 WBC Hgb Hct Plt Count 304 Sodium 136 Potassium 4.5 Chloride Carbon Dioxide BUN Creatinine Glucose Calcium Transferrin % Sat Ferritin Albumin PG Care Time/CCT Total # of Minutes Spent Total Time Spent with Patient: Total time spent is greater than 50% in coordination of care (as documented) at patient's floor/unit and/or counseling patient: Coding Level of Care Code 08485 SUB INP/OBS CARE 3/50MIN Diagnoses ESRD (end stage renal disease) on dialysis N18.6; Z99.2 Partial obstruction of small intestine K56.600 HTN (hypertension) I10 Hypertension type: unspecified Anemia, unspecified type D64.9 Anemia type: unspecified type (3) HTN (hypertension) Hypertension type: unspecified Qualified Code(s): I10 - Essential (primary) hypertension (4) Anemia Anemia type: unspecified type Qualified Code(s): D64.9 - Anemia, unspecified
[2023-04-29] MEDS ORDERED: POLYETHYLENE (MIRALAX) 17 GM PACK PO SCH (09:00)
--- NOTE | 2023-04-29 13:18 | Surgery Progress Note ---
Date of Service April 29, 2023 Assessment & Plan (1) Small bowel obstruction: Plan: resolving SBO advance diet as tolerated Present on Admission?: Yes Admission and Anticipated Discharge Date Admission Date: April 27, 2023 Subjective moving gas no pain taking po Review of Systems Constitutional: no fever and no chills Respiratory: no dyspnea Cardiovascular: no chest pain Gastrointestinal: no abdominal pain, no nausea and no vomiting Genitourinary: no dysuria Neurologic: no localized weakness and no generalized weakness Hematologic / Lymphatic: no easy bleeding and no easy bruising Physical Exam Constitutional: well developed and well nourished Neck: trachea midline Respiratory: normal respiratory effort, lungs clear to auscultation Cardiovascular: RRR, no murmur, no edema Gastrointestinal (Abdomen): Inspection/Auscultation: abdomen normal to inspection and + abdomen distended Percussion/Palpation: abdomen soft; abdomen nontender, no guarding and abdomen not rigid Musculoskeletal: Head/Neck/Chest: + abnormal head shape and + evidence of head trauma Psychiatric: Orientation: alert and oriented x 3 Results & Data Vital Signs (Past 12 Hours) Vital Signs Temp Pulse Pulse Resp BP Pulse Ox O2 Del Method 04/29/23 10:49 36.8 C 77 20 105/58 L 96 Nasal Cannula 04/29/23 08:31 04/29/23 07:11 76 18 132/67 95 Nasal Cannula 04/29/23 03:47 36.9 C 80 18 122/61 97 Nasal Cannula 04/29/23 01:29 66 O2 Flow Rate 04/29/23 10:49 3.0 04/29/23 08:31 3 04/29/23 07:11 3.0 04/29/23 03:47 3.0 04/29/23 01:29
--- NOTE | 2023-04-29 17:37 | Billing Data ---
Date of Service April 29, 2023 Coding Level of Care Code 86511 SUB INP/OBS CARE
[2023-04-29] MEDS: MELATONIN 3 MG TAB PO SCH (21:21)
[2023-04-29] MEDS: AMIODARONE 200 MG TAB PO SCH (21:22)
[2023-04-29] MEDS: traZODone HCL 50 MG TAB PO SCH (21:32)
--- NOTE | 2023-04-30 06:56 | Hospitalist Progress Note ---
Date of Service April 30, 2023 Assessment & Plan (1) Small bowel obstruction: Plan: #SBO SBO improving. Tolerating clear liquids can advance diet to full liquids. Continue pain control/nausea control. Continue gentle IVF. Appreciate surgical input #UBIG Initially there was concern for GIB with heme positive stool and ?coffee ground emesis. Etiology seems to be more so in the setting SBO #ESRD Patient on hemodialysis. Nephrology on board - appreciate recs #Anemia Appears stable and chronic presumably due to ESRD. Retic low, b12/folate WNL. Iron chronic disease/low in october. Ongoing nephrology management since largely ties to ESRD #Elevated Troponin Stable. Chest pain does not represent ACS. Now resolved most likely reflux. #Chest Pain Suspect heartburn. Pantoprazole and famotidine as above. Now resolved. #Cirrhosis s/p paracentesis 04/27 #HTN BP reasonable given the situation #COPD #Chronic respiratory failure with hypoxia Continue his routine inhalers. Chronic O2 use. Stable #Paroxysmal a fib Rate controlled. On Amiodarone 200 mg. VTE Prophylaxis - deferred in setting of possible GI bleed Diet - FLD Disposition -stable for med/surg (2) Acute upper GI bleed: (3) ESRD (end stage renal disease) on dialysis: (4) Anemia: (5) Elevated troponin: (6) Chest pain: (7) Cirrhosis of liver: (8) HTN (hypertension): (9) COPD (chronic obstructive pulmonary disease): (10) Chronic respiratory failure with hypoxia: (11) Paroxysmal atrial flutter: Admission and Anticipated Discharge Date Admission Date: April 27, 2023 Subjective Patient doing well this morning. Tolerating PO well. Is hungry. Physical Exam Physical Exam: Gen: well appearing elderly male in NAD HEENT: AT NC MMM CV: RRR no m/r/g clinically well perfused Resp: CTAB no wheezing Abd: distended, soft, non-tender Psych: appropriate mood and affect Neuro: alert and oriented Results & Data Results & Data Vital Signs (Past 12 Hours) Vital Signs Temp Pulse Resp BP Pulse Ox Pulse Ox O2 Del Method 04/30/23 00:24 36.4 C L 72 16 159/64 H 93 Oxymask 04/30/23 00:20 Nasal Cannula 04/30/23 00:20 93 04/29/23 21:30 Nasal Cannula 04/29/23 20:36 36.5 C 70 16 135/68 96 Nasal Cannula O2 Del Method O2 Flow Rate O2 Flow Rate 04/30/23 00:24 3 04/30/23 00:20 3 04/30/23 00:20 Nasal Cannula 3 04/29/23 21:30 3 04/29/23 20:36 3.0 (4) Anemia Anemia type: due to chronic kidney disease Chronic kidney disease stage: on chronic dialysis Qualified Code(s): N18.6 - End stage renal disease; D63.1 - Anemia in chronic kidney disease; Z99.2 - Dependence on renal dialysis (6) Chest pain Chest pain type: unspecified Qualified Code(s): R07.9 - Chest pain, unspecified (8) HTN (hypertension) Hypertension type: unspecified Qualified Code(s): I10 - Essential (primary) hypertension (9) COPD (chronic obstructive pulmonary disease) COPD type: unspecified COPD Qualified Code(s): J44.9 - Chronic obstructive pulmonary disease, unspecified
[2023-04-30] MEDS ORDERED: SODIUM CHLORIDE 0.9% 1,000 ML IV PRN (07:00)
[2023-04-30 07:14] LABS: Basophils # (auto) 0.04 K/uL (0.00-0.20); Basophils % (auto) 0.6 %; Eosinophils # (auto) 0.46 K/uL (0.00-0.50); Eosinophils % (auto) 6.6 %; Immature Granulocytes # (auto) 0.05 K/uL (0.01-0.20); Immature Granulocytes % (auto) 0.7 %; Lymphocytes # (auto) 0.84 K/uL (1.20-3.40); Mean Corpuscular Hemoglobin 30.6 pg (25.0-34.0); Mean Corpuscular Hgb Conc 32.3 g/dL (32.0-36.0); Mean Corpuscular Volume 94.8 fL (80.0-100.0); Mean Platelet Volume 9.7 fL (9.4-12.4); Monocytes # (auto) 0.91 K/uL (0.11-0.59); Neutrophils # (auto) 4.72 K/uL (1.40-6.50); Neutrophils % (auto) 67.1 %; Platelet Count 283 K/uL (130-400); RDW Coefficient of Variation 14.6 % (11.5-14.5); RDW Standard Deviation 51.2 fL (36.4-46.3); Red Blood Count 3.27 M/uL (4.70-6.10); White Blood Count 7.02 K/ul (4.8-10.8)
[2023-04-30] MEDS: PANTOprazole 40 MG in SYRINGE 0 ML IV SCH (07:55)
[2023-04-30 07:56] LABS: BUN Creatinine Ratio 7.9 (10-20); Calcium 8.8 mg/dl (8.6-10.3); Creatinine Clr Calc Pharmacy 11.4 ml/min; Est GFR (African American) 9.5 ml/min; Est GFR (Non-African American) 8.2 ml/min; Potassium 4.5 mmol/L (3.5-5.1)
[2023-04-30] MEDS: UMECLIDINIUM/VILANTEROL 62.5/25MCG 7 PUFFS/INHALER INH SCH (07:56)
[2023-04-30] MEDS: DOCUSATE SODIUM 100 MG CAP PO SCH (07:56)
[2023-04-30] MEDS: POLYETHYLENE (MIRALAX) 17 GM PACK PO SCH (07:57)
[2023-04-30] MEDS: THIAMINE HCL 100 MG TAB PO SCH (08:42)
[2023-04-30] MEDS: CINACALCET HCL 30 MG TAB PO SCH (08:42)
[2023-04-30] MEDS: DIVALPROEX DELAY RELEASE 500 MG TAB PO SCH (08:42)
[2023-04-30] MEDS: NEPHROCAPS PO SCH (08:42)
--- NOTE | 2023-04-30 08:53 | Nephrology Progress Note ---
Date of Service April 30, 2023 Assessment & Plan (1) ESRD (end stage renal disease) on dialysis: Plan: * Will provide HD today according to outpatient prescription. Orders have been placed in EMR and HD RN notified * Outpatient HD Rx: [facility] MWF 4 hr, 2K, 35 HCO3, F-180NR, Qb400/Qd800, EDW 75.7kg, L IJ TCC * Monitor PRP (2) Partial obstruction of small intestine: Plan: * Conservative management * Surgery following but poor surgical candidate * Abdomen remains distended, tympanitic. No BS to my exam today. Patient reports that he is tolerating clear liquids. Will order follow up KUB x-ray (3) HTN (hypertension): Plan: * Blood pressure is relatively low. Will monitor (4) Anemia: Plan: * Hgb 10.0 * Will provide PATRICK today Admission and Anticipated Discharge Date Admission Date: April 27, 2023 Subjective Mr. Redmond was evaluated in his hospital room this morning. He reports that his abdominal discomfort is improved and he is tolerating a liquid diet Review of Systems Constitutional: no fever Eyes: no problem reported Ear, Nose, Mouth, Throat: no problem reported Respiratory: no cough and no dyspnea Cardiovascular: no chest pain Gastrointestinal: no abdominal pain Integumentary: no rash Physical Exam Constitutional: + ill appearing; not in distress Eyes: PERRL, conjunctivae normal, anicteric sclerae ENMT: external ear and nose normal, oropharynx normal Neck: trachea midline, no thyromegaly Respiratory: normal respiratory effort, lungs clear to auscultation Cardiovascular: Rate/Rhythm: regular rate and regular rhythm Heart Sounds: + murmur Extremities: no edema Gastrointestinal (Abdomen): Inspection/Auscultation: + abdomen distended and + hypoactive bowel sounds Percussion/Palpation: no guarding Musculoskeletal: Extremities: no cyanosis Neurologic: Speech / Cognition: + abnormal cognition Results & Data Vital Signs (Past 12 Hours) Vital Signs Temp Pulse Pulse Resp BP Pulse Ox Pulse Ox 04/30/23 07:50 04/30/23 07:03 36.5 C 71 16 128/69 99 04/30/23 00:24 36.4 C L 72 16 159/64 H 93 04/30/23 00:20 04/30/23 00:20 93 04/29/23 21:30 O2 Del Method O2 Del Method O2 Flow Rate O2 Flow Rate 04/30/23 07:50 Nasal Cannula 3 04/30/23 07:03 Nasal Cannula 3 04/30/23 00:24 Oxymask 3 04/30/23 00:20 Nasal Cannula 3 04/30/23 00:20 Nasal Cannula 3 04/29/23 21:30 Nasal Cannula 3 Laboratory Results Laboratory Tests 04/30/23 06:18 WBC 7.02 Hgb 10.0 L Hct 31.0 L Plt Count 283 Sodium 132 L Potassium 4.5 Chloride 100 Carbon Dioxide 26 BUN 49 H Creatinine 6.21 H* D Glucose 107 H PG Care Time/CCT Total # of Minutes Spent Total Time Spent with Patient: Total time spent is greater than 50% in coordination of care (as documented) at patient's floor/unit and/or counseling patient: Coding Level of Care Code 45787 SUB INP/OBS CARE 350MIN Diagnoses ESRD (end stage renal disease) on dialysis N18.6; Z99.2 Partial obstruction of small intestine K56.600 HTN (hypertension) I10 Hypertension type: unspecified Anemia, unspecified type D64.9 Anemia type: unspecified type (3) HTN (hypertension) Hypertension type: unspecified Qualified Code(s): I10 - Essential (primary) hypertension (4) Anemia Anemia type: unspecified type Qualified Code(s): D64.9 - Anemia, unspecified
[2023-04-30] MEDS ORDERED: FAMOTIDINE 20 MG in SYRINGE 3 ML IV SCH (09:00)
[2023-04-30] MEDS ORDERED: EPOETIN ALFA 10,000 UNITS/ML VIAL SQ ONE (10:33)
--- NOTE | 2023-04-30 10:50 | Discharge Summary ---
Date of Service April 30, 2023 Admission HPI Per Admitting Provider Sisi Redmond is a 72 year old male who presents to the ER from interventional radiology following outpatient paracentesis after developing chest pain near the end of the procedure and nausea and vomiting. Vomiting dark brown vomitus per triage note. Stool mildly heme positive. Patient unable to give me much of a history as appears tired. He reports feeling well prior to paracentesis today and confirms he was vomiting after this. He denies any current chest or abdominal pain. No respiratory or urinary symptoms. No recent change in bowels. We discussed possible NG tube but given no current nausea and possibility of varices since his last EGD will hold off currently. He reports using 3LPM O2 chronically and does not feel short of breath. Admission Exam Per Admitting Provider Constitutional: well developed; + not well nourished and no acute distress Eyes: PERRL, conjunctivae normal, anicteric sclerae ENMT: Mouth: + dry oral mucous membranes Neck: trachea midline, no thyromegaly Respiratory: normal respiratory effort, lungs clear to auscultation Cardiovascular: Rate/Rhythm: regular rate and regular rhythm Heart Sounds: + murmur (apical holosystolic) Vessels: no JVD Extremities: normal capillary refill and + pedal edema (1+ b/l equal); no calf tenderness Gastrointestinal (Abdomen): Inspection/Auscultation: + abdomen distended Percussion/Palpation: abdomen soft; abdomen nontender, no guarding and abdomen not rigid Musculoskeletal: no cyanosis or clubbing, extremities motor strength 5/5 Skin: no rashes, warm and dry Neurologic: moves all extremities, awake and + confused Psychiatric: Orientation: alert and oriented to person; + not oriented to place and + not oriented to time Principal Diagnosis sbo Discharge Exam Gen: well appearing elderly male in NAD HEENT: AT NC MMM CV: clinically well perfused Resp: no increased work of breathing Abd: distended, soft, non-tender Psych: appropriate mood and affect Neuro: alert and oriented Discharge Data Allergies Allergy/AdvReac Type Severity Reaction Status Date / Time lisinopril AdvReac Intermediate COUGH Verified 04/27/23 15:11 Consultations 04/27/23 18:15 ED Decision to Admit Stat 04/27/23 20:12 Consult General Surgery Routine 04/27/23 20:27 Consult Nephrology Routine Ordered Studies Chest X-Ray 04/27/23 14:46 SINGLE VIEW CHEST CLINICAL HISTORY: Atypical chest pain. FINDINGS: An AP, portable, upright chest radiograph is compared to study dated 02/18/2023 and correlated with chest CT dated 06/30/2021.. A left subclavian central venous catheter is in place. The heart is enlarged noting atherosclerotic calcification of the thoracic aorta. There is pulmonary vascular congestion. Bilateral airspace opacities likely represent interstitial edema. Emphysema and chronic interstitial thickening similar to previous. No large pleural effusion or pneumothorax is seen. The skeletal structures are osteopenic. The bony thorax is grossly intact. IMPRESSION: 1. Cardiomegaly and emphysema with evidence of congestive failure. 2. Mild bilateral airspace opacities likely represent pulmonary edema. Correlate clinically for evidence of a superimposed infectious/inflammatory pneumonitis. Radiographic follow-up to resolution is recommended. Abdomen/Pelvis CT 04/27/23 16:45 FINDINGS: Patchy and linear densities within the lung bases. This favors subsegmental atelectasis. A superimposed pneumonitis would be difficult to exclude. No pneumoperitoneum. No pneumatosis. No acute fractures identified. The heart is enlarged. Mild body wall edema noted. Mildly distended and fluid-filled distal esophagus. The stomach is also moderately distended and filled with gas and fluid. Multiple mildly distended gas and fluid-filled loops of proximal to mid small bowel measure up to 3.6 cm in diameter. The majority of the ileal loops are decompressed. Therefore, this could represent a partial small bowel obstruction. The exact transition point is not clearly identified on this study. Moderate fecal retention. Normal appendix. There is a small amount of ascites remaining status post paracentesis. A 1 cm right posterior bladder wall lesion is better appreciated on the prior CT examination. The prostate gland is mildly enlarged. No retroperitoneal or pelvic lymphadenopathy. Calcified plaque within the normal caliber abdominal aorta. The no hepatic or splenic masses. The gallbladder as unremarkable. The pancreas remains atrophic with mild dilatation of the main pancreatic duct measuring up to 4 mm. Normal adrenal glands. Multiple simple and complex cysts again noted within the kidneys. No hydronephrosis. This remains unchanged. The majority of the cysts demonstrate peripheral calcification. IMPRESSION: 1. Distended and fluid-filled distal esophagus, stomach, and proximal to mid small bowel. The majority of the ileal loops are decompressed. There is gas and stool remaining within the colon. Therefore, this favors a partial small bowel obstruction. The exact transition point is not clearly identified. 2. Small amount of ascites which has improved status post paracentesis. 3. Patchy and linear bibasilar densities. This favors subsegmental atelectasis. A superimposed pneumonia would be difficult to exclude. 4. Mild dilatation of the main pancreatic duct measuring 4 mm. 5. The right posterior bladder wall lesion is better appreciated on the prior CT examination. 6. Additional findings as described above. Hospital Course (1) Small bowel obstruction: #SBO SBO improving. Tolerating low fiber diet. Surgery was consulted - no indication for surgical intervention at this time. Patient stable for discharge #UBIG Initially there was concern for GIB with heme positive stool and ?coffee ground emesis. Etiology seems to be more so in the setting SBO #ESRD Patient on hemodialysis. Nephrology on board - appreciate recs #Anemia Appears stable and chronic presumably due to ESRD. Retic low, b12/folate WNL. Iron chronic disease/low in october. Ongoing nephrology management since largely ties to ESRD #Elevated Troponin Stable. Chest pain does not represent ACS. Now resolved most likely reflux. #Chest Pain Suspect heartburn. Pantoprazole and famotidine as above. Now resolved. #Cirrhosis s/p paracentesis 04/27 #HTN BP reasonable given the situation #COPD #Chronic respiratory failure with hypoxia Continue his routine inhalers. Chronic O2 use. Stable #Paroxysmal a fib Rate controlled. On Amiodarone 200 mg. (2) Acute upper GI bleed: (3) ESRD (end stage renal disease) on dialysis: (4) Anemia: (5) Elevated troponin: (6) Chest pain: (7) Cirrhosis of liver: (8) HTN (hypertension): (9) COPD (chronic obstructive pulmonary disease): (10) Chronic respiratory failure with hypoxia: (11) Paroxysmal atrial flutter: Total Time Total Time Spent Total Time Spent (In Minutes): <30 Discharge Plan Discharge Items Patient Disposition: Transfer Care Home Fac Reason For Visit: SMALL BOWEL OBSTRUCTION Discharge Diagnosis: SBO Activity: Per Instructions section Non-emergency contact: Primary Care Provider and Burr Bench Operator Call non-emergency contact if: you have any medication questions, your pain is worsening and your temperature is above 101.5 Follow-up/Referrals: Maximo Taylor MD [Primary Care Provider] - Diet: Dialysis Renal Addtl Attending Provider Instructions: You were admitted to the hospital for a small bowel obstruction. You were treated with fluids, bowel rest, and miralax. You improved significantly. Recommend that you continue with plenty of hydration and Miralax to achieve 1-2 formed stools daily. We did not make any changes to your medications during this admission. A discharge summary will be sent to your primary care physician to ensure continuity of care. Please bring this discharge summary with you to your next office appointment so that your provider can review it at that time. Follow-up appointments: Make a follow-up appointment with your PCP within the next week. It is very important that you follow up with them shortly after discharge from the hospital. CONTACT YOUR PRIMARY CARE PROVIDER if you experience any of the following: nausea or vomiting fevers or chills Difficulty following your treatment plan, or difficulty taking medications CALL 911 OR GO TO THE EMERGENCY DEPARTMENT if you experience any of the following: Sudden, severe abdominal pain or nausea/vomiting Severe chest pain, or chest pain that radiates (moves) to your jaw or arm Sudden, severe shortness of breath or difficulty breathing Thank you for allowing us to participate in your care Pending Studies at Discharge: No Stand-Alone Forms: My [facility] [employer] Skilled Items Patient informed of condition?: Yes DNR: No Discharge Level of Care: Skilled Communicable Disease: No Discharge Prognosis: Stable Lines: None Urinary Catheter: No Medications and DC Order Prescriptions: Continued Stiolto Respimat 2.5-2.5 mcg/actuation mist 2 puff INH QAM Qty: 4 5RF docusate sodium [Colace] 100 mg capsule 400 mg PO BID polyethylene glycol 3350 [Miralax] 17 gram/dose Powder 17 g PO DAILY ipratropium-albuterol 0.5 mg-3 mg(2.5 mg base)/3 mL solution for nebulization 3 ml INHALATION QS PRN (Reason: Shortness Of Breath Or Wheezing) Rx Instructions: ALSO LOW 02 SATS epinephrine [EpiPen] 0.3 mg/0.3 mL Auto-Injector 0.3 mg IM Q4H PRN (Reason: as directed) Auryxia 210 mg iron tablet 420 mg PO TIDWMEAL Qty: 1 0RF Rx Instructions: administer with a meal amlodipine 2.5 mg tablet 2.5 mg PO DAILY Qty: 30 2RF Rx Instructions: HOLD FOR SBP < 120 divalproex 500 mg tablet,delayed release (DR/EC) 500 mg PO QAM amiodarone 200 mg Tablet 200 mg PO QPM loratadine [Wal-itin] 10 mg Tablet 10 mg PO Q2D Qty: 0 0RF trazodone 50 mg Tablet 50 mg PO HS tramadol 50 mg Tablet 50 mg PO Q6H PRN (Reason: Pain, Moderate) bisacodyl [Dulcolax (bisacodyl)] 5 mg Tablet,Delayed Release (Dr/Ec) 5 mg PO DAILY PRN (Reason: Constipation) hydroxyzine HCl 10 mg Tablet 20 mg PO TID PRN (Reason: Itching) guaifenesin [Mucinex] 1,200 mg Tablet Extended Release 12hr 1,200 mg PO BID PRN (Reason: Congestion) cinacalcet [Sensipar] 30 mg Tablet 30 mg PO QAM acetaminophen [Tylenol] 325 mg Tablet 650 mg PO Q4 MDD 3 GRAMS APAP/24 HOURS PRN (Reason: Fever Or Pain) thiamine HCl (vitamin B1) 100 mg tablet 100 mg PO QAM cholecalciferol (vitamin D3) 125 mcg (5,000 unit) capsule 5,000 unit PO QPM Rx Instructions: after supper famotidine 20 mg Tablet 20 mg PO DIRECTED Rx Instructions: TAKES DAILY ON WEDNESDAY, WEDNESDAY, & WEDNESDAY EVENING AFTER DIALYSIS. Virt-Caps 1 mg Capsule 1 cap PO DAILY melatonin 5 mg Tablet 15 mg PO HS Discharge Orders: Discharge Order (Routine); Ordered 04/30/23 Ordered By: Rupal Lopez Admission Data Admit Date/Time: 04/27/23 18:26 Attending Provider: Trent Christianson Admit Provider: Catrachito Klein Primary Care Provider: Maximo Taylor Other Providers: Ana Nava; Catrachito Klein; Ernesto Marquez; Elroy Underwood Other Interventions: Discharge Summary Assessment (RN) Last Done: 04/30/23 13:17 Supervising Physician Co-Signing Physician Notes I personally examined the patient and verified all reyes points of history and exam, discussed case, and agree with decision making with Dr Lopez Feels good, eating fine without pain. Would like to leave the hospital. Updated granddaughter. Vitals noted, in general he is awake and alert pleasant no distress. Abdomen is soft mildly distended but nontender no guarding rebound or rigidity. Partial SBOimprovedSafe for home. otherwise as above Resident Activity Tracking Resident Involvement: Resident Care Provided Care Provided: Adult Hospital Medicine
[2023-04-30 12:07] LABS: HBSAG NON-REACTIVE (NON-REACTIVE)
--- NOTE | 2023-04-30 19:24 | Billing Data ---
Date of Service April 30, 2023 Coding Level of Care Code 81711 IN/OBS DISCH 30 MIN/LESS
--- NOTE | 2023-04-30 22:24 | XRay Report ---
XR KUB/Abdomen 1 view CLINICAL HISTORY: partial SBO TECHNIQUE: 1 view of the abdomen was obtained. Comparison: Comparison is made to CT abdomen pelvis 04/27/2023 FINDINGS: Lung bases are unremarkable. Degenerative changes are seen in the visualized skeleton. Vascular calci fications are seen. There is a paucity of small bowel gas. Large stool burden is seen with prominent large bowel gas. IMPRESSION: No radiographic evidence of small bowel obstruction. Large stool burden with prominent stool gas note d. ACT 112: Negative or not required by law. Electronically signed by: Arthur Taylor M.D. 04/30/2023 10:21 PM
--- OUTSIDE RECORDS SUMMARY | 2023-05-02 05:01 | External Medical Summary ---
Author Name Unknown Address Unknown Organization [id number] [facility] [address] [place] [id number] Laboratory Report Ordering Provider Test Date Status SUSHANT JENKINS 04/26/2023 05:39:00 Final Observation Date Value Abnormality Reference (Units ) Status SYNC LEUKOCYTES IN BLOOD BY AUTOMATED COUNT 04/26/2023 05:39:00 6.18 4.00-10.80 (K/uL) Final Segs 04/26/2023 05:39:00 62.3 40.0-75.0 (%) Final Lymphs % 04/26/2023 05:39:00 17.0 Below low normal 18.0-42.0 (%) Final Monos 04/26/2023 05:39:00 14.6 Above high normal 1.0-11.0 (%) Final Eosinophils 04/26/2023 05:39:00 5.3 0.0-6.0 (%) Final Basos 04/26/2023 05:39:00 0.8 0.0-2.0 (%) Final Absolute Segs 04/26/2023 05:39:00 3.85 1.80-7.70 (K/uL) Final Lymphs, absolute 04/26/2023 05:39:00 1.05 1.00-4.80 (K/ul) Final Monos, Abs 04/26/2023 05:39:00 0.90 0.00-1.10 (K/uL) Final Eos, Abs 04/26/2023 05:39:00 0.33 0.00-0.70 (K/uL) Final Basos, Abs 04/26/2023 05:39:00 0.05 0.00-0.20 (K/uL) Final [facility] [address] [place] [id number]
--- OUTSIDE RECORDS SUMMARY | 2023-05-02 05:01 | External Medical Summary ---
Author Name Unknown Address Unknown Organization [id number]:[facility]ORY [facility] [address] [place] [id number] Laboratory Report Ordering Provider Test Date Status SUSHANT JENKINS 04/26/2023 05:39:00 Final Observation Date Value Abnormality Reference (Units ) Status WBC, Total 04/26/2023 05:39:00 6.18 4.00-10.8 0 (K/uL) Final RBC 04/26/2023 05:39:00 3.37 4.50-5.25 (M/uL) Final Hemoglobin 04/26/2023 05:39:00 10.2 Below low normal 14 .0-16.8 (g/dL) Final HCT 04/26/2023 05:39:00 32.0 Below low normal 40. 0-48.4 (%) Final MCV 04/26/2023 05:39:00 95.0 82.0-99.5 (fL) Final MCH 04/26/2023 05:39:00 30.3 27.0-34.0 (pg) Final MCHC 04/26/2023 05:39:00 31.9 32.0-36.0 (g/dL) Final RDW 04/26/2023 05:39:00 15.2 11.5-15.5 (%) Final Platelets 04/26/2023 05:39:00 260 140-400 (K /uL) Final MPV 04/26/2023 05:39:00 10.0 6.6-11.1 ( fL) Final Performing Location [facility] [place] [address] [place] [id number]
--- OUTSIDE RECORDS SUMMARY | 2023-05-02 05:01 | External Medical Summary | Summary of Care ---
Author Name Unknown Organization [facility] Address [address] [place] [address] Phone [phone] Care Team Providers Care Automobile Seat Cover Installer Name Role Phone Marla Dominguez The DO Primary Care Provider [phone] Encounter Details Date Type Department Care Team (Late st Contact Info) Description 04/26/2023 Orders Only Lab Mobile Phlebotomy [facility] [address] [place], [place] [id number] Maximo Taylor MD [address] [place] [address] [place] [id number] Alcoholic cirrhosis of liver with ascites (HCC)* Allergies Active Allergy Reactions Criticality Noted Date Comments Lisinopril 04/09/2023 documented as of this encounter (statuses as of 04/26/2023) Medications Medication Sig Dispensed Refills Start Date End Date Status Amiodarone HCl 200 MG Oral Tablet (Cordarone) Take 1 Tablet by mouth in the morning. 0 01/21/2023 Active amLODIPine Besylate 2.5 MG Oral Tablet (Norvasc) Take 1 Tablet by mouth in the morning. 0 01/21/2023 Active Auryxia 1 GM 210 MG(Fe) Oral Tablet (Ferric Citrate) Take 2 Tablets by mouth in the morning and 2 Tablets at noon and 2 Tablets in the evening. Take before meals. 0 01/21/2023 Active Cinacalcet HCl 30 MG Oral Tablet (Sensipar) Take 1 Tablet by mouth in the morning. 0 01/21/2023 Active Divalproex Sodium 500 MG Oral Tablet Delayed Release (Depakote DR) Take 1 Tablet by mouth in the morning. 0 01/21/2023 Active Docusate Sodium 100 MG Oral Capsule Take 4 Capsules by mouth in the morning and 4 Capsules before bedtime. 0 01/21/2023 Active EPINEPHrine 0.3 MG/0.3ML Injection Solution Prefilled Syringe Inject as directed. 0 01/21/2023 Active hydrOXYzine HCl 10 MG Oral Tablet (Atarax) Take 1 Tablet by mouth in the morning and 1 Tablet at noon and 1 Tablet in the evening and 1 Tablet before bedtime. 0 01/21/2023 Active Ipratropium-Albutero l 0.5-2.5 (3) MG/3ML Inhalation Solution (Duoneb) Inhale 3 mL via nebulizer every 4 hours as needed for Wheezing. 0 01/21/2023 Active Loratadine 10 MG Oral Tablet (Claritin) Take 1 Tablet by mouth every other day. 0 01/21/2023 Active Melatonin 5 MG Oral Capsule Take 1 Capsule by mouth at bedtime. 0 01/21/2023 Active guaiFENesin ER 600 MG Oral Tablet Extended Release 12 Hour Take 2 Tablets by mouth 2 times a day as needed for Congestion. Take with plenty of water. Do not cut, crush or chew 0 01/21/2023 Active Scribner Caps 1 MG Oral Capsule Take 1 Capsule by mouth in the morning. 0 01/21/2023 Active Stiolto Respimat 2.5-2.5 MCG/ACT Inhalation Aerosol Solution (Tiotropium-Olodater ol) Inhale 2 Puffs by mouth in the morning. 0 01/21/2023 Active Suplena 1.8/CarbSteady Oral Liquid Take 120 mL by mouth in the morning and 120 mL before bedtime. 0 01/21/2023 Active triamcinolone 0.1% in hydrophilic ointment 2:1 Apply topically to affected area 2 times a day. 0 01/21/2023 Active Acetaminophen 325 MG Oral Tablet (Tylenol) Take 2 Tablets by mouth every 4 hours as needed for Fever >38C(100.5F), Pain, Mild, Pain, Moderate or Pain, Severe. 0 01/21/2023 Active Vitamin B-1 100 MG Oral Tablet Take 1 Tablet by mouth in the morning. 0 01/21/2023 Active Vitamin D3 125 MCG (5000 UT) Oral Capsule Take 1 Capsule by mouth in the morning. 0 01/21/2023 Active Famotidine 20 MG Oral Tablet (Pepcid) Take 1 Tablet by mouth in the morning. 0 01/22/2023 Active traMADol HCl 50 MG Oral Tablet (Ultram) Take 1 Tablet by mouth every 6 hours as needed for Pain, Moderate or Pain, Severe. 40 Tablet 0 02/17/2023 Active Additional Information Patient not taking.Reported on 04/09/2023 traZODone HCl 50 MG Oral Tablet (Desyrel) Take 1 Tablet by mouth at bedtime. 0 02/25/2023 Active Polyethylene Glycol 3350 17 GM/SCOOP Oral Powder Take 17 g by mouth in the morning. Dissolve one heaping tablespoon in 8 ounces of water or juice.. 0 02/25/2023 Active Albumin Human 25 % Intravenous SolutionIndications: Alcoholic cirrhosis of liver with ascites (HCC) 25Gm before and after paracentesis 100 mL 0 04/09/2023 Active PEG 1216-ICe-QmBvs-NaCl- NaSulf 236 GM Oral Solution Reconstituted Take according to coloscopy prep instructions. 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 03/30/2023 Hypoxemia 03/29/2023 History of abdominal paracentesis 03/26/2023 A-V fistula 03/24/2023 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 Ascites due to alcoholic cirrhosis 02/17/2023 Renal artery stenosis 02/17/2023 Protein-calorie malnutrition 01/27/2023 Anemia in chronic kidney disease, on chronic agustin lysis 01/27/2023 ESRD on dialysis 01/21/2023 HTN, goal below 130/80 01/21/2023 Iron deficiency anemia 01/21/2023 Slow transit constipation 01/21/2023 PTSD (post-traumatic stress disorder) 01/21/2023 COPD, moderate 01/21/2023 Vitamin B1 deficiency 01/21/2023 Vitamin D deficiency 01/21/2023 Dry skin dermatitis 01/21/2023 Secondary hyperparathyroidism of renal origin Polycystic renal disease 01/21/2023 PAF (paroxysmal atrial fibrillation) 01/21/2023 Primary insomnia 01/21/2023 Pruritic condition 01/21/2023 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 behavioral disturbance, psychotic disturbance, mood disturbance, or anxiety 01/21/2023 BPH without obstruction/lower urinary tract symp toms 01/21/2023 Benign neoplasm of skin of nose 01/21/2023 Diverticulosis of large intestine without hemorr nila 01/21/2023 Chronic gout without tophus 01/21/2023 History of intracranial hemorrhage 01/21/2023 History of nontraumatic rupture of cerebral aneu rysm 01/21/2023 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 Colon polyp 01/21/2023 History of tobacco use 01/21/2023 Personal history of alcoholism 01/21/2023 Full code status 01/21/2023 Coarse tremors 01/21/2023 FX CORONOID PROC ULNA-CL 07/17/2005 DISLOCAT ELBOW NEC-CLOSE 07/17/2005 documented as of this encounter (statuses as of 04/26/2023) Immunizations Name Administration Dates Next Due Seasonal Influenza, Quad, Nasal (Flumist) 2022 documented as of this encounter Social History Tobacco Use Types Packs/Day Years Used Date Smoking Tobacco: Former Cigarettes 1 55 1 967 - 2 Smokeless Tobacco: Never Alcohol Use Standard Drinks/Week Comments Not Currently 72 (1 standard drink = 0.6 oz pu re alcohol) Sex and Gender Information Value Date Recorded Sex Assigned at Not on file Gender Identity Not on file Sexual Orientation Not on file Job Start Date Occupation Industry Not on file Not on file Not on file documented as of this encounter Plan of Treatment Upcoming Encounters Date Type Department Care Team (Late st Contact Info) Description 04/26/2023 8:00 AM EST Laboratory Lab Mobile Phlebotomy [facility] [address] [facility] [place] [address] [place] [address] Arrived 05/04/2023 10:30 AM EST Office Visit Orthopaedics [facility] [address] [place] [id number] Ciara Major PA-C [address] [place] [id number] 07/14/2023 9:20 AM EST Office Visit Dermatology [address] [place] [address] Jessica Williamson PA-C [address] [place] [address] [place] [address] 08/19/2023 11:40 AM EST Office Visit Hepatology, [facility] [address] [place] [address] Latoya Selby DO [address] [place] [id number] Scheduled Orders Name Type Priority Associated Diagnoses Orde r Schedule CBC WITH WBC DIFFERENTIAL Lab Routine Alcoholic cirrhosis of liver with ascites (HCC) Expected: 04/26/2023, Expires: 04/26/2024 APTT Lab Routine Alcoholic cirrhosis of liver with ascites (HCC) Expected: 04/26/2023, Expires: 04/26/2024 Health Maintenance Due Date Last Done Comments Pneumococcal Vaccine: 65+ Years (1 - PCV) 1956 Depression Screening 1962 O2 ASSESSMENT COMPLETED IN PAST YEAR FOR COPD 1968 Cologuard 1995 Colonoscopy 1995 Colorectal Cancer Screening 1995 Fecal Occult Blood Test 1995 Sigmoidoscopy 1995 LUNG CANCER SCREENING - USE SMARTSET 95431 2000 Zoster Vaccines (1 of 2) 2000 Hepatitis B (1 of 3 - Risk 3-dose series) 2010 AAA Screening 2015 *COPD SEVERITY VERIFIED BY PFT 01/23/2023 *CXR OR CT FOR COPD EVER 01/23/2023 COVID-19 Vaccine (3 - 2022-2 4 season) 2023 10/18/2020, 09/19/2020 Influenza Vaccine (FLU shot) (#1) 2023 04/02/2023 DTaP,Tdap,and Td Vaccines (2 - Td or Tdap) 09/28/2026 09/28/2016 Alpha-1 Antitrypsin Completed 04/09/2023 GARDASIL-HPV IMMUNIZATION SERIES Aged Out No longer eligible b ased on patient's age to complete this topic MENINGOCOCCAL (MENACTRA/MENVEO) Aged Out No longer eligible b ased on patient's age to complete this topic documented as of this encounter Medical Devices Not on filedocumented as of this encounter Visit Diagnoses Diagnosis Alcoholic cirrhosis of liver with ascites (HCC)- Primary Alcoholic cirrhosis of liver documented in this encounter Care Teams Automobile Seat Cover Installer Relationship Specialty Start Date End Date Jona Dominguez DO PCP - General 08/13/05 documented as of this encounter
--- OUTSIDE RECORDS SUMMARY | 2023-05-02 05:01 | External Medical Summary ---
Author Name Unknown Address Unknown Organization K0G:LAB[facility]ORY [facility] [address] [place] [id number] Laboratory Report Ordering Provider Test Date Status SUSHANT JENKINS 04/26/2023 05:39:00 Final Anticoagulation may affect t esting. Refer to [facility] Test Catalog for a list of effects. Observation Date Value Abnormality Reference (Units ) Status aPTT panel - Platelet poor plasma 04/26/2023 05:39:00 32 21-38 (seconds) Final Performing Location LAB[facility]ATORY [facility] [place] [address] [place] [id number]
--- OUTSIDE RECORDS SUMMARY | 2023-05-02 05:02 | External Medical Summary | Summary of Care ---
Author Name Unknown Organization [facility] Address [address] [facility] [place] [address] Phone [phone] Care Team Providers Care Riveting Machine Operator Tape Control Name Role Phone Jona Dominguez DO Primary Care Provider [phone] Encounter Details Date Type Department Care Team (Late st Contact Info) Description 04/16/2023 Orders Only Gastroenterology, [facility] [address] [place] [address] Latoya Selby DO [address] [place] [id number] Alcoholic cirrhosis of liver with ascites (HCC) Allergies Active Allergy Reactions Criticality Noted Date Comments Lisinopril 04/09/2023 documented as of this encounter (statuses as of 04/16/2023) Medications Medication Sig Dispensed Refills Start Date [...] cut, crush or chew 0 01/21/2023 Active [place] Caps 1 MG Oral Capsule Take 1 [...] paracentesis 100 mL 0 04/09/2023 Active PEG 2522-MVg-KaIiw-NaCl- NaSulf 236 GM Oral Solution Reconstituted Take according to coloscopy prep instructions. 4000 mL 0 04/09/2023 Active documented as of this encounter (statuses as of 04/16/2023) Active Problems Problem Noted Date Diagnosed Date [...] as of this encounter (statuses as of 04/16/2023) Immunizations Name Administration Dates Next Due Seasonal Influenza, Quad, Nasal (Flumist) 2022 documented as of this encounter Social History Tobacco Use Types Packs/Day Years Used Date Smoking Tobacco: Former Cigarettes 1 55 1 967 - 2022 Smokeless Tobacco: Never Alcohol Use Standard Drinks/Week [...] Care Team (Late st Contact Info) Description 05/04/2023 10:30 AM EST Office Visit Orthopaedics [facility] [address] [place] [address] SharerCiara PA-C [address] [place] [address] 07/14/2023 9:20 AM EST Office Visit Dermatology [address] [place] [address] Jessica Williamson PA-C [address] [place] [address] [place] [address] 08/19/2023 11:40 AM EST Office Visit Hepatology, [facility] [address] [place] [address] Latoya Selby DO [address] [place] [address] Health Maintenance Due Date Last Done Comments Pneumococcal Vaccine: 65+ Years (1 - PCV) 1956 Depression Screening 1962 O2 ASSESSMENT COMPLETED IN PAST YEAR FOR COPD 1968 Cologuard 1995 Colonoscopy 1995 Colorectal Cancer Screening 1995 Fecal Occult Blood Test 1995 Sigmoidoscopy 1995 LUNG CANCER SCREENING - USE SMARTSET 47529 2000 Zoster Vaccines (1 of 2) 2000 [...] Not on filedocumented as of this encounter Procedures Procedure Name Priority Date/Time Associated Diagnosis Comments IR PARACENTESIS Routine 04/15/2023 Alcoholic cirrhosis of liver with ascites (HCC) documented in this encounter Results * IR PARACENTESIS (04/15/2023) Anatomical Region Laterality Modality Any Other 04/15/2023 Latoya Selby DO RAD SPECIAL SD OCEDURES documented in this encounter Visit Diagnoses Diagnosis Alcoholic cirrhosis of liver with ascites (HCC) Alcoholic cirrhosis of liver documented in this encounter Care Teams Riveting Machine Operator Tape Control Relationship Specialty Start Date End Date Jona Dominguez DO PCP - General 08/13/05 documented as of this encounter
--- OUTSIDE RECORDS SUMMARY | 2023-05-02 05:02 | External Medical Summary | Summary of Care ---
Author Name Unknown Organization [facility] Address [address] [place] [address] Phone [phone] Care Team Providers Care Lamp Stack Developer Name Role Phone Avtar Dominguez Primary Care Provider [phone] Reason for Visit * Reason Onset Date Comments Senior Living Visit 04/14/2023 Encounter Details Date Type Department Care Team (Latest Contact Info) Description 04/14/2023 10:00 AM EDT Senior Living Visit [facility] [address] [place] [address] Brianna Orozco PA-C [address] [place] [address] Closed fracture of distal ends of left radius and ulna with routine healing, subsequent encounter*; Venous thrombosis of upper extremity; Ascites due to alcoholic cirrhosis (HCC) Allergies Active Allergy Reactions Criticality Noted Date Comments Lisinopril 04/09/2023 documented as of this encounter (statuses as of 04/14/2023) Medications Medication Sig Dispensed Refills Start Date [...] cut, crush or chew 0 01/21/2023 Active Mckinley Caps 1 MG Oral Capsule Take 1 [...] paracentesis 100 mL 0 04/09/2023 Active PEG 5624-OJp-ZnKes-NaCl- NaSulf 236 GM Oral Solution Reconstituted Take according to coloscopy prep instructions. 4000 mL 0 04/09/2023 Active documented as of this encounter (statuses as of 04/14/2023) Active Problems Problem Noted Date Diagnosed Date [...] as of this encounter (statuses as of 04/14/2023) Immunizations Name Administration Dates Next Due Seasonal [...] on file documented as of this encounter Progress Notes * Brianna Orozco PA-C - 04/14/2023 1:06 PM EDT Name: Sisi Redmond Date of :1950 TRANSITION EVENT: Type: Non-applicable Date: April 14 Code Status: Full Code This note pertains to care provided at [facility]. Please see facility medical record for original note. This note is not to be edited or addended in [employer]. Editing or addending needs to occur in the facilities medical record. Subjective: Sisi Redmond is a 72 year old male. Patient being seen for evaluation of left wrist and LUE Chief Complaint Patient presents with Senior Living Visit HPI: Pt sustained a fx left distal radius and ulna over a week ago. Is following with orthopedics for this. Pt developed swellling in LUE with increasing pain shortly following injury. Venous dopplerdone in facility showed acute DVT left subclavian vein. Pt begun on Lovenox and transitioned to Coumadin managed by anticoagulation clinic. Pt had followup evaluation by vascular surgeon yesterday for evaluation of port for dialysis and had repeat venous doppler LUE in their office and showed no DVT evidence. Pt's swelling and pain is better controlled. Less swelling. Able to move fingers. Pt had hepatology evaluation for his ascites due to liver cirrhosis. He is being scheduled for UGIEand colonoscopy. He is scheduled for paracentesis as outpatient weekly and prn. Labs done at dialysis center. Patient Active Problem List Diagnosis Code FX CORONOID PROC ULNA-CL S52.043A DISLOCAT ELBOW NEC-CLOSE S53.196A ESRD on dialysis (HCC) N18.6, Z99.2 HTN, goal below 130/80 I10 Iron deficiency anemia D50.9 Slow transit constipation K59.01 PTSD (post-traumatic stress disorder) F43.10 COPD, moderate (HCC) J44.9 Vitamin B1 deficiency E51.9 Vitamin D deficiency E55.9 Dry skin dermatitis L85.3 Secondary hyperparathyroidism of renal origin (HCC) N25.81 Polycystic renal disease Q61.3 PAF (paroxysmal atrial fibrillation) (HCC) I48.0 Primary insomnia F51.01 Pruritic condition L29.9 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 behavioral disturbance, psychotic disturbance, mood disturbance, or anxiety (HCC) G30.1, F02.A0 BPH without obstruction/lower urinary tract symptoms N40.0 Benign neoplasm of skin of nose D23.39 Diverticulosis of large intestine without hemorrhage K57.30 Chronic gout without tophus M1A.9XX0 History of intracranial hemorrhage Z86.79 History of nontraumatic rupture of cerebral aneurysm Z86.79 Colon polyp K63.5 History of tobacco use Z87.891 Personal history of alcoholism (HCC) F10.21 Full code status Z78.9 Coarse tremors G25.2 Protein-calorie malnutrition (HCC) E46 Anemia in chronic kidney disease, on chronic dialysis (HCC) N18.6, D63.1, Z99.2 Urothelial lesion N39.8 Ascites due to alcoholic cirrhosis (HCC) K70.31 Renal artery stenosis (HCC) I70.1 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 Past Surgical History: Procedure Laterality Date BRAIN ANEURYSM REPR, SIMPLE 2012 MRI compatible brain aneurysm clip [facility] COLONOSCOPY CYSTOSCOPY/BIOPSY 03/29/2023 cystoscopy, fulgaration of bladder lesion. Dr Reyna, [facility] INFORMATION removal of benign neoplasm nose CT CREAT AV FISTULA,AUTOGENOUS GRAFT Left 03/23/2023 Dr. Eriberto Augustine TOOTH ROOT REMOVAL complete dental extraction Family History Problem Relation Age of Onset Cancer Mother Other (accidental) Father Family Status Relation Status Mo Fa Social History Socioeconomic History Marital status: Spouse name: Not on file Number of children: Not on file Years of education: Not on file Highest education level: Not on file Occupational History Not on file Tobacco Use Smoking status: Former Packs/day: 1.00 Years: 55.00 Additional pack years: 0.00 Total pack years: 55.00 Types: Cigarettes Start date: 1966 Quit date: 2021 Years since quittin.8 Smokeless tobacco: Never Vaping Use Vaping Use: Never used Substance and Sexual Activity Alcohol use: Not Currently Alcohol/week: 72.0 standard drinks of alcohol Types: 72 12 oz of beer per week Drug use: Never Sexual activity: Not on file Other Topics Concern Not on file Social History Narrative Not on file Social Determinants of Health Financial Resource Strain: Not on file Food Insecurity: Not on file Transportation Needs: Not on file Physical Activity: Not on file Stress: Not on file Social Connections: Not on file Intimate Partner Violence: Not on file Housing Stability: Not on file Review of patient's allergies indicates: Allergen Reactions Lisinopril I have reviewed medications and allergies. Please refer to MAR in the facility's medical record forthe most up-to-date medication list as this cannot be edited in [employer]. Review of Systems: Constitutional ROS: + change in weight, No change in weakness, No change in fatigue and No fevers, sweats, or chills Mouth/Throat ROS: No thrush or No sore throat Pulmonary ROS: No cough, sputum, or hemoptysis, No wheezing, No shortness of breath and No recent change in breathing Cardiovascular ROS: No chest pain, No shortness of breath, No edema, No palpitations and No syncope Gastrointestinal ROS: No abdominal pain, No change in bowel habits, No significant change in appetite, No nausea, vomiting, diarrhea, or constipation and No dysphagia Musculoskeletal/Extremities ROS:see HPI Skin/Integumentary ROS: No rash and No itching Neurologic ROS: No headaches and No seizures Psychiatric ROS: No depression, No anxiety and No psychosis + dementia Sleep: No sleep disorders OBJECTIVE: PHYSICALEXAM: I reviewed the most recent facilities vitals. General: alert, no distress, thin, frail Eye Exam: Conjunctiva are pink and non-injected, sclera clear Ears: External ears normal Nose: no mucosal erythema, no mucosal edema, no purulent discharge Oropharynx: no exudate, no erythema, lips, buccal mucosa, and tongue normal and mucous membranes are moist Heart: regular rate & rhythm, no murmurs and no gallops Lungs: normal respiratory rate and rhythm, no chest wall tenderness, lungs clear to auscultation Abdomen: abdomen soft, non-tender, normal bowel sounds and no masses or organomegaly protuberant. +ascites Extremities:trace edema, no clubbing, no cyanosis Skin: skin color, texture, turgor are normal, no rashes or significant lesions no jaundice ASSESSMENT: Closed fracture of distal ends of left radius and ulna with routine healing, subsequent encounter (Primary) Following with orthopedics Venous thrombosis of upper extremity Reviewed vascular surgery notes and results of yesterday's venous doppler Vascular surgery office believes venous doppler done in our facility was inaccurate and pt does nothave DVT Will d/c coumadin Rx Ascites due to alcoholic cirrhosis (HCC) Continue with weekly or prn paracentesis Will follow with hepatology PLAN: Reviewed vascular surgery notes and Continue present medication(s):as ordered. Long-Term Home Treatment Given: as above Electronically signed by: Brianna Orozco PA-C Over 35 minutes were spent in this visit more than half the time was spent counselling or coordinating care. documented in this encounter Plan of Treatment Upcoming Encounters Date Type Department Care Team (Late st Contact Info) Description 04/16/2023 5:30 PM EDT Anticoagulation Pharmacy Call Center [address] [facility] [place] [address] [facility] [address] [facility] [place] [address] 05/04/2023 10:30 AM EST Office Visit Orthopaedics [facility] [address] [place] [address] SharerCiara PA-C [address] [place] [address] 07/14/2023 9:20 AM EST Office Visit Dermatology [address] [place] [address] Jessica Williamson PA-C [address] [place] [address] [place] [address] 08/19/2023 11:40 AM EST Office Visit Hepatology, [facility] [address] [place] [address] Latoya Selby DO [address] [place] [address] Health Maintenance Due Date Last Done Comments Pneumococcal Vaccine: 65+ Years (1 - PCV) 1956 Depression Screening 1962 Alpha-1 Antitrypsin 1968 O2 ASSESSMENT COMPLETED IN PAST YEAR FOR COPD 1968 Cologuard 1995 Colonoscopy 1995 Colorectal Cancer Screening 1995 Fecal Occult Blood Test 1995 Sigmoidoscopy 1995 LUNG CANCER SCREENING - USE SMARTSET 94218 2000 Zoster Vaccines (1 of 2) 2000 Hepatitis B (1 of 3 - Risk 3-dose series) 2010 AAA Screening 2015 *COPD SEVERITY VERIFIED BY PFT 01/23/2023 *CXR OR CT FOR COPD EVER 01/23/2023 COVID-19 Vaccine (3 - 2022-2 4 season) 2023 10/18/2020, 09/19/2020 Influenza Vaccine (FLU shot) (#1) 2023 04/02/2023 DTaP,Tdap,and Td Vaccines (2 - Td or Tdap) 09/28/2026 09/28/2016 GARDASIL-HPV IMMUNIZATION SERIES Aged Out No longer eligible b ased on patient's age to complete this topic MENINGOCOCCAL (MENACTRA/MENVEO) Aged Out No longer eligible b ased on patient's age to complete this topic documented as of this encounter Medical Devices Not on filedocumented as of this encounter Visit Diagnoses Diagnosis Closed fracture of distal ends of left radius and ulna with routine healing, subsequent encounter- Primary Venous thrombosis of upper extremity Ascites due to alcoholic cirrhosis (HCC) documented in this encounter Care Teams Lamp Stack Developer Relationship Specialty Start Date End Date Jona Dominguez DO PCP - General 08/13/05 documented as of this encounter
--- OUTSIDE RECORDS SUMMARY | 2023-05-02 05:02 | External Medical Summary | Summary of Care ---
Author Name Unknown Organization [facility] Address [address] [facility] [place] [address] Phone [phone] Care Team Providers Care Panel Lay Up Worker Name Role Phone Jona Dominguez DO Primary Care Provider [phone] Encounter Details Date Type Department Care Team (Late st Contact Info) Description 04/15/2023 Telephone Hepatology, [facility] [address] [place] [address] Latoya Selby DO [address] [place] [address] Allergies Active Allergy Reactions Criticality Noted Date Comments Lisinopril 04/09/2023 documented as of this encounter (statuses as of 04/15/2023) Medications Medication Sig Dispensed Refills Start Date [...] cut, crush or chew 0 01/21/2023 Active Hickman Caps 1 MG Oral Capsule Take 1 [...] paracentesis 100 mL 0 04/09/2023 Active PEG 0689-NCq-ZgKqf-NaCl- NaSulf 236 GM Oral Solution Reconstituted Take according to coloscopy prep instructions. 4000 mL 0 04/09/2023 Active documented as of this encounter (statuses as of 04/15/2023) Active Problems Problem Noted Date Diagnosed Date [...] as of this encounter (statuses as of 04/15/2023) Immunizations Name Administration Dates Next Due Seasonal Influenza, Quad, Nasal (Flumist) 2022 documented as of this encounter Social History Tobacco Use Types Packs/Day Years Used Date Smoking Tobacco: Former Cigarettes 1 55 1 967 - 2021 Smokeless Tobacco: Never Alcohol Use Standard Drinks/Week Comments Not Currently 72 (1 standard drink = 0.6 oz pu re alcohol) Sex and Gender Information Value Date Recorded Sex Assigned at Not on file Gender Identity Not on file Sexual Orientation Not on file Job Start Date Occupation Industry Not on file Not on file Not on file documented as of this encounter Miscellaneous Notes * Telephone Encounter - Latoya Normabrandin Selby, DO - 04/15/2023 1:43 PM EDT Please let patient know I reviewed all his recent labs. Complete serological work up for causes of cirrhosis were all negative so cause is related to his prior history of alcohol abuse. He does not have immunity against hepatitis A or B. Recommend vaccination series through PCP. INR is high (2.1) but that is due to coumadin and not liver disease and his creatinine is high but he is ESRD therefore MELD score is falsely very elevated. Latoya Selby DO documented in this encounter Plan of Treatment Upcoming Encounters Date Type Department Care Team (Late st Contact Info) Description 05/04/2023 10:30 AM EST Office Visit Orthopaedics [facility] [address] [place] [address] SharerCiara PA-C [address] [place] [address] 07/14/2023 9:20 AM EST Office Visit Dermatology [address] [place] [address] Jessica Williamson PA-C [address] [place] [address] [place] [address] 08/19/2023 11:40 AM EST Office Visit Hepatology, [facility] [address] [place] [address] Latoya Selby DO [address] [place] [address] Health Maintenance Due Date Last Done Comments Pneumococcal Vaccine: 65+ Years (1 - PCV) 1956 Depression Screening 1962 O2 ASSESSMENT COMPLETED IN PAST YEAR FOR COPD 1968 Cologuard 1995 Colonoscopy 1995 Colorectal Cancer Screening 1995 Fecal Occult Blood Test 1995 Sigmoidoscopy 1995 LUNG CANCER SCREENING - USE SMARTSET 05404 2000 Zoster Vaccines (1 of 2) 2000 [...] Not on filedocumented as of this encounter Care Teams Panel Lay Up Worker Relationship Specialty Start Date End Date Jona Dominguez DO PCP - General 08/13/05 documented as of this encounter
--- OUTSIDE RECORDS SUMMARY | 2023-05-02 05:02 | External Medical Summary | Summary of Care ---
Author Name Unknown Organization [facility] Address [address] [facility] [place] [address] Phone [phone] Care Team Providers Care Information Coder Name Role Phone Jona Dominguez DO Primary Care Provider [phone] Encounter Details Date Type Department Care Team (Late st Contact Info) Description 04/15/2023 Telephone Hepatology, [facility] [address] [place] [address] Latoya Selby DO [address] [place] [address] Allergies Active Allergy Reactions Criticality Noted Date Comments Lisinopril 04/09/2023 documented as of this encounter (statuses as of 04/20/2023) Medications Medication Sig Dispensed Refills Start Date [...] cut, crush or chew 0 01/21/2023 Active [place] Caps 1 MG Oral Capsule Take 1 [...] paracentesis 100 mL 0 04/09/2023 Active PEG 2652-OZz-RwIng-NaCl- NaSulf 236 GM Oral Solution Reconstituted Take according to coloscopy prep instructions. 4000 mL 0 04/09/2023 Active documented as of this encounter (statuses as of 04/20/2023) Active Problems Problem Noted Date Diagnosed Date [...] as of this encounter (statuses as of 04/20/2023) Immunizations Name Administration Dates Next Due Seasonal [...] encounter Miscellaneous Notes * Telephone Encounter - Alexandra Spaulding RN - 04/20/2023 2:34 PM EDT Called number listed for pt . Granddaughter answered. Told me to call [facility]. Called and relayed message to the nurse aries that works at [facility] where the pt resides. She verbalized understanding and asked us to fax this encounter to [phone] faxed * Telephone Encounter - Latoya Selby DO - 04/15/2023 1:43 PM EDT Please [...] 05/04/2023 10:30 AM EST Office Visit Orthopaedics [facility] [address] [place] [address] SharerCiara PA-C [address] [place] [address] 07/14/2023 9:20 AM EST Office Visit Dermatology [address] [place] [address] Jessica Williamson PA-C [address] [place] [address] [place] [address] 08/19/2023 11:40 AM EST Office Visit Hepatology, [facility] [address] [place] [address] Latoya Selby DO [address] [place] [address] Health Maintenance Due Date Last Done Comments Pneumococcal Vaccine: 65+ Years (1 - PCV) 1956 Depression Screening 1962 O2 ASSESSMENT COMPLETED IN PAST YEAR FOR COPD 1968 Cologuard 1995 Colonoscopy 1995 Colorectal Cancer Screening 1995 Fecal Occult Blood Test 1995 Sigmoidoscopy 1995 LUNG CANCER SCREENING - USE SMARTSET 88640 2000 Zoster Vaccines (1 of 2) 2000 [...] filedocumented as of this encounter Care Teams Information Coder Relationship Specialty Start Date End Date Jona Dominguez DO PCP - General 08/13/05 documented as of this encounter
--- OUTSIDE RECORDS SUMMARY | 2023-05-02 05:02 | External Medical Summary ---
Author Name Unknown Address Unknown Organization [facility] [address] [place] [id number] Laboratory Report Ordering Provider Test Date Status DAVONTE HIRSCH 04/16/2023 08:10:00 Final With paracentesis Observation Date Value Abnormality Reference (Units ) Status WBC, Total 04/16/2023 08:10:00 5.30 4.00-10.8 0 (K/uL) Final RBC 04/16/2023 08:10:00 3.70 4.50-5.25 (M/uL) Final Hemoglobin 04/16/2023 08:10:00 11.3 Below low normal 14 .0-16.8 (g/dL) Final HCT 04/16/2023 08:10:00 35.3 Below low normal 40. 0-48.4 (%) Final MCV 04/16/2023 08:10:00 95.4 82.0-99.5 (fL) Final MCH 04/16/2023 08:10:00 30.5 27.0-34.0 (pg) Final MCHC 04/16/2023 08:10:00 32.0 32.0-36.0 (g/dL) Final RDW 04/16/2023 08:10:00 15.6 11.5-15.5 (%) Final Platelets 04/16/2023 08:10:00 298 140-400 (K /uL) Final MPV 04/16/2023 08:10:00 9.3 6.6-11.1 ( fL) Final Performing Location [facility] [address] [place] [id number]
--- OUTSIDE RECORDS SUMMARY | 2023-05-02 05:02 | External Medical Summary | Summary of Care ---
Author Name Unknown Organization [facility] Address [address] [facility] [place] [address] Phone [phone] Care Team Providers Care Camp Attendant Name Role Phone Jona Dominguez DO Primary Care Provider [phone] Reason for Visit * Reason Onset Date Comments Medication Update 04/15/2023 Encounter Details Date Type Department Care Team (Late st Contact Info) Description 04/15/2023 Telephone Pharmacy Call Center [address] [place] [address] [facility] [address] [place] [address] Medication Update Allergies Active Allergy Reactions Criticality Noted Date [...] cut, crush or chew 0 01/21/2023 Active [place] Caps 1 MG Oral Capsule Take 1 [...] paracentesis 100 mL 0 04/09/2023 Active PEG 4335-TWs-CqFum-NaCl- NaSulf 236 GM Oral Solution Reconstituted Take [...] encounter Miscellaneous Notes * Telephone Encounter - Miya Tucker RPh - 04/15/2023 8:49 AM EDT Received TT from facility provider. Warfarin is not discontinued. Pt had repeat dopplar and no evidence of clot. ACC will discharge at this time. Please refer to us if anything changes. Miya Tucker Rph, Pharm.D. Clinical Pharmacist [facility] ([facility]) (formerly Telepharmacy) [phone] 04/15/2023,8:52 AM documented in this encounter Plan of Treatment Upcoming Encounters Date Type Department Care Team (Late st Contact Info) Description 05/04/2023 10:30 AM EST Office Visit Orthopaedics [facility] [address] [place] [address] ShareCiara olvera PA-C [address] [place] [address] 07/14/2023 9:20 AM EST Office Visit Dermatology [address] [place] [address] Jessica Williamson PA-C [address] [place] [address] [place] [address] 08/19/2023 11:40 AM EST Office Visit Hepatology, [facility] [address] [place] [address] Latoya Selby DO [address] [place] [address] Health Maintenance Due Date Last Done Comments Pneumococcal Vaccine: 65+ Years (1 - PCV) 1956 Depression Screening 1962 O2 ASSESSMENT COMPLETED IN PAST YEAR FOR COPD 1968 Cologuard 1995 Colonoscopy 1995 Colorectal Cancer Screening 1995 Fecal Occult Blood Test 1995 Sigmoidoscopy 1995 LUNG CANCER SCREENING - USE SMARTSET 93437 2000 Zoster Vaccines (1 of 2) 2000 [...] filedocumented as of this encounter Care Teams Camp Attendant Relationship Specialty Start Date End Date Jona Dominguez DO PCP - General 08/13/05 documented as of this encounter
--- OUTSIDE RECORDS SUMMARY | 2023-05-02 05:02 | External Medical Summary ---
Author Name Unknown Address Unknown Organization [facility] [place] [address] [place] [id number] Laboratory Report Ordering Provider Test Date Status LINWOOD HIRSCHERSON 04/12/2023 05:14:00 Final Warfarin Therapy
INR: 2 .0-3.0 conventional anticoagulation
INR: 2.5- 3.5 high intensity anticoagulation Observation Date Value Abnormality Reference (Units ) Status PT 04/12/2023 05:14:00 23.7 Above high normal 11 .6-15.2 (seconds) Final INR 04/12/2023 05:14:00 2.1 Above high normal 0. 8-1.2 Final Performing Location [facility] [address] [place] [address]
--- OUTSIDE RECORDS SUMMARY | 2023-05-02 05:02 | External Medical Summary ---
Author Name Unknown Address Unknown Organization [facility] [address] [place] [address] Laboratory Report Ordering Provider Test Date Status SUSHANT JENKINS 04/19/2023 05:47:00 Final Observation Date Value Abnormality Reference (Units ) Status WBC, Total 04/19/2023 05:47:00 5.57 4.00-10.8 0 (K/uL) Final RBC 04/19/2023 05:47:00 3.34 4.50-5.25 (M/uL) Final Hemoglobin 04/19/2023 05:47:00 10.2 Below low normal 14 .0-16.8 (g/dL) Final HCT 04/19/2023 05:47:00 31.6 Below low normal 40. 0-48.4 (%) Final MCV 04/19/2023 05:47:00 94.6 82.0-99.5 (fL) Final MCH 04/19/2023 05:47:00 30.5 27.0-34.0 (pg) Final MCHC 04/19/2023 05:47:00 32.3 32.0-36.0 (g/dL) Final RDW 04/19/2023 05:47:00 15.6 11.5-15.5 (%) Final Platelets 04/19/2023 05:47:00 287 140-400 (K /uL) Final MPV 04/19/2023 05:47:00 9.7 6.6-11.1 ( fL) Final Performing Location [facility] [address] [place] [address]
--- OUTSIDE RECORDS SUMMARY | 2023-05-02 05:02 | External Medical Summary | Summary of Care ---
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 4000 mL 0 04/09/2023 Active documented as of this encounter (statuses as of 04/22/2023) Active Problems Problem Noted Date Diagnosed Date [...] as of this encounter (statuses as of 04/22/2023) Immunizations Name Administration Dates Next Due Seasonal [...] 05/04/2023 10:30 AM EST Office Visit Orthopaedics [facility] [address] [place] [address] Sharer, Ciara Crandall PA-C [address] [place] [address] 07/14/2023 9:20 AM EST Office Visit Dermatology [address] [place] [address] Jessica Williamson PA-C [address] [place] [address] [place] [address] 08/19/2023 11:40 AM EST Office Visit Hepatology, [facility] [address] [place] [address] Latoya Selby DO [address] [place] [address] Health Maintenance Due Date Last Done Comments Pneumococcal Vaccine: 65+ Years (1 - PCV) 1956 Depression Screening 1962 O2 ASSESSMENT COMPLETED IN PAST YEAR FOR COPD 1968 Cologuard 1995 Colonoscopy 1995 Colorectal Cancer Screening 1995 Fecal Occult Blood Test 1995 Sigmoidoscopy 1995 LUNG CANCER SCREENING - USE SMARTSET 66236 2000 Zoster Vaccines (1 of 2) 2000 [...] as of this encounter Visit Diagnoses Diagnosis Ascites due to alcoholic cirrhosis (HCC)- Primary ESRD on dialysis (HCC) End stage renal disease COPD, moderate (HCC) Chronic airway obstruction, not elsewhere classified PAF (paroxysmal atrial fibrillation) (HCC) Atrial fibrillation documented in this encounter Care Teams Call Worker Relationship Specialty Start Date End Date Jona Dominguez DO PCP - General 08/13/05 documented as of this encounter
--- OUTSIDE RECORDS SUMMARY | 2023-05-02 05:02 | External Medical Summary | Summary of Care ---
Author Name Unknown Organization [facility] Address [address] [facility] [place] [address] Phone [phone] Care Team Providers Care Manager Lan Name Role Phone Marla Dominguez The DO Primary Care Provider [phone] Reason for Visit * Reason Comments Dosage Adjustment Via Phone (anticoag Cl inic) Encounter Details Date Type Department Care Team (Latest Contact Info) Description 04/12/2023 5:30 PM EDT Anticoagulation Pharmacy Call Center [address] [place] [address] [facility] [address] [facility] [place] [address] Venous thrombosis of upper extremity* Allergies Active Allergy Reactions Criticality Noted Date Comments Lisinopril 04/09/2023 documented as of this encounter (statuses as of 04/12/2023) Medications Medication Sig Dispensed Refills Start Date [...] cut, crush or chew 0 01/21/2023 Active [place] Caps 1 MG Oral Capsule Take 1 [...] paracentesis 100 mL 0 04/09/2023 Active PEG 2964-CGc-FmCyi-NaCl- NaSulf 236 GM Oral Solution Reconstituted Take according to coloscopy prep instructions. 4000 mL 0 04/09/2023 Active documented as of this encounter (statuses as of 04/12/2023) Active Problems Problem Noted Date Diagnosed Date [...] as of this encounter (statuses as of 04/12/2023) Immunizations Name Administration Dates Next Due Seasonal [...] as of this encounter Progress Notes * Miya Tucker [facility] - 04/12/2023 9:56 AM EDT Medication Therapy Disease Management - Anticoagulation Patient: Sisi Redmond | : 1950 [facility] Patient Anticoagulation Encounter Patient is a resident at: [facility] -- Fax sent to number listed above detailing plan of care below. Please notify clinic with any unusual brusing or bleeding, N/V/D, medication or diet changes or anymissed or extra doses of Coumadin. Subjective Patient-Reported Symptoms: Objective Current Warfarin Dose As of 04/12/2023 Warfarin maintenance plan: No maintenance plan INR Result As of 04/12/2023 INR goal: 2.0-3.0 INR used for dosin.1 (04/12/2023) Assessment & Plan Warfarin Plan As of 04/12/2023 Full warfarin instructions: 04/12: 5 mg; 04/13: 7.5 mg; 04/14: 5 mg; 04/15: 5 mg Next INR check: 04/16/2023 Repeat PT/INR in 4 day(s) Weekly dose: establishing Additional Dosing Information: Miya Tucker RP Clinical Pharmacist 04/12/2023, 9:58 AM documented in this encounter Plan of Treatment Upcoming Encounters Date Type Department Care Team (Late st Contact Info) Description 04/15/2023 9:15 AM EDT Imaging Radiology [address] [place] [address] 05/10/2023 9:40 AM EST Office Visit Dermatology [address] [place] [address] Jessica Williamson PA-C [address] [place] [address] [place] [address] 06/17/2023 10:30 AM EST Procedure Only Endoscopy, [facility] [address] [place], [place] [address] Latoya Selby DO [address] [place] [address] 06/17/2023 11:00 AM EST Procedure Only Endoscopy, [facility] [address] [place] [address] Latoya Selby DO [address] [place] [address] 08/19/2023 11:40 AM EST Office Visit Hepatology, [facility] [address] [place] [address] Latoya Selby DO [address] [place] [address] Health Maintenance Due Date Last Done Comments Pneumococcal Vaccine: 65+ Years (1 - PCV) 1956 Depression Screening 1962 Alpha-1 Antitrypsin 1968 O2 ASSESSMENT COMPLETED IN PAST YEAR FOR COPD 1968 Cologuard 1995 Colonoscopy 1995 Colorectal Cancer Screening 1995 Fecal Occult Blood Test 1995 Sigmoidoscopy 1995 LUNG CANCER SCREENING - USE SMARTSET 72022 2000 Zoster Vaccines (1 of 2) 2000 [...] as of this encounter Visit Diagnoses Diagnosis Venous thrombosis of upper extremity- Primary documented in this encounter Care Teams Manager Lan Relationship Specialty Start Date End Date Jona Dominguez DO PCP - General 08/13/05 documented as of this encounter"
--- OUTSIDE RECORDS SUMMARY | 2023-05-02 05:02 | External Medical Summary | Summary of Care ---
Author Name Unknown Organization [facility] Address [address] [place] [address] Phone [phone] Care Team Providers Care Logistics Manager Name Role Phone Marla Dominguez The DO Primary Care Provider [phone] Encounter Details Date Type Department Care Team (Late st Contact Info) Description 04/19/2023 Orders Only Lab Mobile Phlebotomy [facility] [address] [place], [place] [id number] Maximo Taylor MD [address] [place] [address] [place] [address] Alcoholic cirrhosis of liver with ascites (HCC)* Allergies Active Allergy Reactions Criticality Noted Date Comments Lisinopril 04/09/2023 documented as of this encounter (statuses as of 04/19/2023) Medications Medication Sig Dispensed Refills Start Date [...] cut, crush or chew 0 01/21/2023 Active [place] Caps 1 MG Oral Capsule Take 1 [...] paracentesis 100 mL 0 04/09/2023 Active PEG 6080-VQz-JrVcw-NaCl- NaSulf 236 GM Oral Solution Reconstituted Take according to coloscopy prep instructions. 4000 mL 0 04/09/2023 Active documented as of this encounter (statuses as of 04/19/2023) Active Problems Problem Noted Date Diagnosed Date [...] as of this encounter (statuses as of 04/19/2023) Immunizations Name Administration Dates Next Due Seasonal [...] Care Team (Late st Contact Info) Description 04/19/2023 8:00 AM EDT Laboratory Lab Mobile Phlebotomy [facility] 100 [facility] [place] [address] [place] [address] 05/04/2023 10:30 AM EST Office Visit Orthopaedics [facility] [address] [place] [address] Ciara Major PA-C [address] [place] [address] 07/14/2023 9:20 AM EST Office Visit Dermatology [address] [place] [address] Jessica Williamson PA-C [address] [place] [address] [place] [address] 08/19/2023 11:40 AM EST Office Visit Hepatology, [facility] [address] [place] [address] Latoya Selby DO [address] [place] [address] Scheduled Orders Name Type Priority Associated Diagnoses Orde r Schedule APTT Lab Routine Alcoholic cirrhosis of liver with ascites (HCC) Expected: 04/19/2023, Expires: 04/19/2024 CBC WITH WBC DIFFERENTIAL Lab Routine Alcoholic cirrhosis of liver with ascites (HCC) Expected: 04/19/2023, Expires: 04/19/2024 Health Maintenance Due Date Last Done Comments Pneumococcal Vaccine: 65+ Years (1 - PCV) 1956 Depression Screening 1962 O2 ASSESSMENT COMPLETED IN PAST YEAR FOR COPD 1968 Cologuard 1995 Colonoscopy 1995 Colorectal Cancer Screening 1995 Fecal Occult Blood Test 1995 Sigmoidoscopy 1995 LUNG CANCER SCREENING - USE SMARTSET 61147 2000 Zoster Vaccines (1 of 2) 2000 [...] liver documented in this encounter Care Teams Logistics Manager Relationship Specialty Start Date End Date Jona Dominguez DO PCP - General 08/13/05 documented as of this encounter
--- OUTSIDE RECORDS SUMMARY | 2023-05-02 05:02 | External Medical Summary | Summary of Care ---
Author Name Unknown Organization [facility] Address [address] [facility] [place] [address] Phone [phone] Care Team Providers Care Steel Placer Name Role Phone Avtar Dominguez Primary Care Provider [phone] Reason for Visit * Reason Comments NEW PATIENT L wrist Encounter Details Date Type Department Care Team (Late st Contact Info) Description 04/13/2023 3:00 PM EDT Office Visit Orthopaedics [facility] [address] [place] [address] Sharer, Ciara Crandall PA-C [address] [place] [address] Closed fracture of distal end of left radius, unspecified fracture morphology, initial encounter*; Closed nondisplaced fracture of styloid process of left ulna, initial encounter Allergies Active Allergy Reactions Criticality Noted Date [...] paracentesis 100 mL 0 04/09/2023 Active PEG 8354-OMb-KkUzw-NaCl- NaSulf 236 GM Oral Solution Reconstituted Take [...] on file documented as of this encounter Patient Instructions * Patient Instructions* Ciara Maojr PA-C - 04/13/2023 4:10 PM EDT Remain nonweightbearing left upper extremity May remove brace for hygiene purposes and daily skin checks documented in this encounter Progress Notes * Ciara Major PA-C - 04/14/2023 11:50 AM EDT Sisi Redmond is a 72 year old male who presents to [facility] for left wrist injury/pain. History: Patient is a 72 year old male here today with left wrist injury. Patient fell in the shower approximately 2 weeks ago. Reports pain along the radial aspect of the left wrist. He was initially immobilized in a wrist splint. He was seen at outside facility where x-rays of wrist were obtained and reportedly showed no fracture. A CT scan performed on 04/08 revealed a ulnar styloid fracture as well a nondisplaced distal radius fracture. Review of systems: All others negative except those noted above in HPI. No past medical history on file. Family History Problem Relation Age of Onset Cancer Mother Other (accidental) Father Social History Socioeconomic History Marital status: Spouse [...] on file Housing Stability: Not on file Past Surgical History: Procedure Laterality Date BRAIN ANEURYSM REPR, SIMPLE 2013 MRI compatible brain aneurysm clip [facility] [place] COLONOSCOPY CYSTOSCOPY/BIOPSY 03/29/2023 cystoscopy, fulgaration of bladder lesion. Dr Reyna, [facility] INFORMATION removal of benign neoplasm nose CT CREAT AV FISTULA,AUTOGENOUS GRAFT Left 03/23/2023 Dr. Eriberto Augustine TOOTH ROOT REMOVAL complete dental extraction Physical Exam There were no vitals filed for this visit. Estimated body mass index is 23.64 kg/m as calculated from the following: Height as of 04/09/23: 1.829 m (6'). Weight as of 04/09/23: 79.1 kg (174 lb 4.8 oz). General: generally well-nourished and in no acute distress HEENT: normocephalic, atraumatic, sclera anicteric. Psych: mood and affect normal , cooperative Card: Peripheral pulses: normal in affected extremity (s) Resp: equal chest rise, non-tachypneic, non-labored breathing Skin: no rash, normal Neuro: Coordination: normal; Sensation: normal on affected extremity (s) MSK: Wrist Exam, Bilateral Inspection: mild left wrist swelling. Skin intact Palpation: Tenderness to palpation along the distal radius. Snuffbox is nontender ROM: Flex (normal 80): L - 80, R - 80 Extension (normal 70): L - 70, R - 70 Radial deviation (normal 20): L - 20, R - 20 Ulnar deviation (normal 20): L - 20, R - 20 Strength: Fagoting Machine Operator: L - Normal, R - Normal Finger Spread: 5/5 bilaterally Extension: L - 5/5, R - 5/5 Flexion: L - 5/5, R - 5/5 Numbness/Tingling: None Bilateral Radiology (I have personally reviewed the following films): CT of the left upper extremity was reviewed with patient. Those films showed a nondisplaced intraarticular distal radius fracture as well as ulnar styloid fracture patient. Assessment and Plan: Closed fracture of distal end of left radius, unspecified fracture morphology, initial encounter (Primary) Closed nondisplaced fracture of styloid process of left ulna, initial encounter Patient will be immobilized in a short arm EXOS. Instructed patient to remain non weight bearing. Encouraged ice and elevation as needed to reduce swelling Reviewed EXOS care Follow-up in 2-3 weeks with repeat x-rays Follow Up: Return for Distal radius fracture and ulnar styloid fracture follow- up in 2-3 weeks. | For: Distal radius fracture and ulnar styloid fracture follow-up in 2-3 weeks Ciara Major PA-C Primary Care Sports Medicine Orthopaedics [facility] 132 [facility] [place] [address] documented in this encounter Nursing Notes * Sommer Pierre LPN - 04/13/2023 3:08 PM EDT R hand dominant pt presents with staff member for new visit, L wrist. Pt fell in shower 2 weeks ago, initial x-rays were negative. Then had CT scan 04/08/2023, showed fx of L radius and ulna. Placed in splint. documented in this encounter Plan of Treatment Upcoming Encounters Date Type Department Care Team (Late st Contact Info) Description 04/16/2023 5:30 PM EDT Anticoagulation Pharmacy Call Center [address] [facility] [place] [address] [facility] 58 60 [facility] [place] [address] 05/04/2023 10:30 AM EST Office Visit Orthopaedics [facility] 132 [facility] [place] [address] Ciara Major PA-C 132 [facility] [place] [address] 07/14/2023 9:20 AM EST Office Visit Dermatology [address] [place] [address] Jessica Williamson PA-C [address] [place] [address] [place] [address] 08/19/2023 11:40 AM EST Office Visit Hepatology, [facility] 132 [facility] [place] [address] Latoya Selby DO [address] [place] [address] Health Maintenance Due Date Last Done Comments Pneumococcal Vaccine: 65+ Years (1 - PCV) 1956 Depression Screening 1962 [place]-1 Antitrypsin 1968 O2 ASSESSMENT COMPLETED IN PAST YEAR FOR COPD 1968 Cologuard 1995 Colonoscopy 1995 Colorectal Cancer Screening 1995 Fecal Occult Blood Test 1995 Sigmoidoscopy 1995 LUNG CANCER SCREENING - USE SMARTSET 56533 2000 Zoster Vaccines (1 of 2) 2000 [...] Visit Diagnoses Diagnosis Closed fracture of distal end of left radius, unspecified fracture morphology, initial encounter- Primary Closed nondisplaced fracture of styloid process of left ulna, initial encounter documented in this encounter Care Teams Steel Placer Relationship Specialty Start Date End Date Jona Dominguez DO PCP - General 08/13/05 documented as of this encounter"
--- OUTSIDE RECORDS SUMMARY | 2023-05-02 05:02 | External Medical Summary ---
Author Name Unknown Address Unknown Organization [facility] [address] [place] [address] Laboratory Report Ordering Provider Test Date Status LINWOOD HIRSCHERSON 04/16/2023 08:00:00 Final With paracentesis

A nticoagulation may affect testing. Refer to [facility] Test Catalog for a list of effects. Observation Date Value Abnormality Reference (Units ) Status aPTT panel - Platelet poor plasma 04/16/2023 08:00:00 34 21-38 (seconds) Final Performing Location LABORATORY [facility] [place] 57[address] - [address] [place] [address]
--- OUTSIDE RECORDS SUMMARY | 2023-05-02 05:02 | External Medical Summary | Summary of Care ---
Author Name Unknown Organization [facility] Address [address] [place] [address] Phone [phone] Care Team Providers Care Fiber Product Cutting Machine Operator Name Role Phone Marla Dominguez The DO Primary Care Provider [phone] Encounter Details Date Type Department Care Team (Late st Contact Info) Description 04/15/2023 Orders Only Lab Mobile Phlebotomy [facility] [place] [place] [address] [place], [place] [id number] Maximo Taylor MD [address] [place] [address] [place] [address] Anemia*; skilled nursing (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 Allergies Active Allergy Reactions Criticality Noted Date [...] cut, crush or chew 0 01/21/2023 Active [place] Caps 1 MG Oral Capsule Take 1 [...] paracentesis 100 mL 0 04/09/2023 Active PEG 5285-VSi-RpRml-NaCl- NaSulf 236 GM Oral Solution Reconstituted Take [...] Team (Late st Contact Info) Description 04/16/2023 9:50 AM EDT Laboratory Lab Mobile Phlebotomy [facility] [place] [place] [facility] [address] [place] [address] 05/04/2023 10:30 AM EST Office Visit Orthopaedics [facility] 132 [facility] [place] [address] Ciara Major PA-C [address] [place] [address] 07/14/2023 9:20 AM EST Office Visit Dermatology [address] [place] [address] Jessica Williamson PA-C [address] [place] [address] [place] [address] 08/19/2023 11:40 AM EST Office Visit Hepatology, [facility] [address] [place] [address] Latoya Selby DO [address] [place] [address] Scheduled Orders Name Type Priority Associated Diagnoses Orde r Schedule PT INR Lab Routine Anemia terminal carman (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 Expected: 04/16/2023, Expires: 04/15/2024 Health Maintenance Due Date Last Done Comments Pneumococcal Vaccine: 65+ Years (1 - PCV) 1956 Depression Screening 1962 O2 ASSESSMENT COMPLETED IN PAST YEAR FOR COPD 1968 Cologuard 1995 Colonoscopy 1995 Colorectal Cancer Screening 1995 Fecal Occult Blood Test 1995 Sigmoidoscopy 1995 LUNG CANCER SCREENING - USE SMARTSET 30913 2000 Zoster Vaccines (1 of 2) 2000 [...] as of this encounter Visit Diagnoses Diagnosis Anemia- Primary Anemia, unspecified skilled nursing (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 Long-term (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 documented in this encounter Care Teams Fiber Product Cutting Machine Operator Relationship Specialty Start Date End Date Jona Dominguez DO PCP - General 08/13/05 documented as of this encounter
--- OUTSIDE RECORDS SUMMARY | 2023-05-02 05:02 | External Medical Summary ---
Author Name Unknown Address Unknown Organization K0G:[facility] [place] [address] [place] [id number] Laboratory Report Ordering Provider Test Date Status DAVONTE HIRSCH 04/16/2023 08:00:00 Final Warfarin Therapy
INR: 2 .0-3.0 conventional anticoagulation
INR: 2.5- 3.5 high intensity anticoagulation Observation Date Value Abnormality Reference (Units ) Status PT 04/16/2023 08:00:00 14.8 11.6-15.2 (seconds) Final INR 04/16/2023 08:00:00 1.1 0.8-1.2 Final Performing Location LABORATORY [facility] [address] - [address] [place] [address]
--- OUTSIDE RECORDS SUMMARY | 2023-05-02 05:02 | External Medical Summary | Summary of Care ---
Author Name Unknown Organization [facility] Address [address] [place] [address] Phone [phone] Care Team Providers Care Trip Follower Name Role Phone Avtar Dominguez Primary Care Provider [phone] Reason for Visit * Reason Onset Date Comments [facility] Visit 04/13/2023 Encounter Details Date Type Department Care Team (Latest Contact Info) Description 04/13/2023 8:00 AM EDT [facility] Visit [facility] [address] [place] [address] Brianna Orozco PA-C [address] [place] [address] Closed fracture of distal ends of left radius and ulna with routine healing, subsequent encounter*; ESRD on dialysis (HCC); Alcoholic cirrhosis of liver with ascites (HCC); 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 behavioral disturbance, psychotic disturbance, mood disturbance, or anxiety (HCC); Acute deep vein thrombosis (DVT) of left upper extremity, unspecified vein (HCC) Allergies Active Allergy Reactions Criticality Noted Date Comments Lisinopril 04/09/2023 documented as of this encounter (statuses as of 04/13/2023) Medications Medication Sig Dispensed Refills Start Date [...] cut, crush or chew 0 01/21/2023 Active [place] Caps 1 MG Oral Capsule Take 1 [...] paracentesis 100 mL 0 04/09/2023 Active PEG 7941-LCc-PoLsa-NaCl- NaSulf 236 GM Oral Solution Reconstituted Take according to coloscopy prep instructions. 4000 mL 0 04/09/2023 Active documented as of this encounter (statuses as of 04/13/2023) Active Problems Problem Noted Date Diagnosed Date [...] as of this encounter (statuses as of 04/13/2023) Immunizations Name Administration Dates Next Due Seasonal [...] 04/13/2023 3:00 PM EDT Office Visit Orthopaedics [facility] [address] [place] [address] Ciara Major PARubénC [address] [place] [address] 04/16/2023 5:30 PM EDT Anticoagulation Pharmacy Call Center [facility] [address] [facility] [place] [address] [facility], [facility] 58 60 [facility] [place] [address] 07/14/2023 9:20 AM EST Office Visit Dermatology [address] [place] [address] Jessica Williamson PA-C [address] [place] [address] [place] [address] 08/19/2023 11:40 AM EST Office Visit Hepatology, [facility] [address] [place] [address] Latoya Selby DO [address] [place] [address] Health Maintenance Due Date Last Done Comments Pneumococcal Vaccine: 65+ Years (1 - PCV) 1956 Depression Screening 1962 Alpha-1 Antitrypsin 1968 O2 ASSESSMENT COMPLETED IN PAST YEAR FOR COPD 1968 Cologuard 1995 Colonoscopy 1995 Colorectal Cancer Screening 1995 Fecal Occult Blood Test 1995 Sigmoidoscopy 1995 LUNG CANCER SCREENING - USE SMARTSET 24000 2000 Zoster Vaccines (1 of 2) 2000 [...] ulna with routine healing, subsequent encounter- Primary ESRD on dialysis (HCC) End stage renal disease Alcoholic cirrhosis of liver with ascites (HCC) Alcoholic cirrhosis of liver 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 behavioral disturbance, psychotic disturbance, mood disturbance, or anxiety (HCC) Acute deep vein thrombosis (DVT) of left upper extremity, unspecified vein (HCC) documented in this encounter Care Teams Trip Follower Relationship Specialty Start Date End Date Jona Dominguez DO PCP - General 08/13/05 documented as of this encounter
--- OUTSIDE RECORDS SUMMARY | 2023-05-02 05:02 | External Medical Summary ---
Author Name Unknown Address Unknown Organization [id number]:[facility] [place] 57-[address] - [address] [place] [address] Laboratory Report Ordering Provider Test Date Status SUSHANT JENKINS 04/19/2023 05:47:00 Final Observation Date Value Abnormality Reference (Units ) Status SYNC LEUKOCYTES IN BLOOD BY AUTOMATED COUNT 04/19/2023 05:47:00 5.57 4.00-10.80 (K/uL) Final Segs 04/19/2023 05:47:00 61.7 40.0-75.0 (%) Final Lymphs % 04/19/2023 05:47:00 18.0 18.0-42.0 (%) Final Monos 04/19/2023 05:47:00 14.2 Above high normal 1.0-11.0 (%) Final Eosinophils 04/19/2023 05:47:00 5.0 0.0-6.0 (%) Final Basos 04/19/2023 05:47:00 1.1 0.0-2.0 (%) Final Absolute Segs 04/19/2023 05:47:00 3.44 1.80-7.70 (K/uL) Final Lymphs, absolute 04/19/2023 05:47:00 1.00 1.00-4.80 (K/ul) Final Monos, Abs 04/19/2023 05:47:00 0.79 0.00-1.10 (K/uL) Final Eos, Abs 04/19/2023 05:47:00 0.28 0.00-0.70 (K/uL) Final Basos, Abs 04/19/2023 05:47:00 0.06 0.00-0.20 (K/uL) Final Performing Location [facility]-[address] 0 - [address] [place] [address]
--- OUTSIDE RECORDS SUMMARY | 2023-05-02 05:02 | External Medical Summary | Summary of Care ---
Author Name Unknown Organization [facility] Address [address] [facility] [place] [address] Phone [phone] Care Team Providers Care Aquatic Habitat Biologist Name Role Phone Jona Dominguez DO Primary Care Provider [phone] Encounter Details Date Type Department Care Team (Late st Contact Info) Description 04/15/2023 Telephone Hepatology, [facility] [address] [place] [address] Latoya Selby DO [address] [place] [address] Allergies Active Allergy Reactions Criticality Noted Date [...] cut, crush or chew 0 01/21/2023 Active Genesee Caps 1 MG Oral Capsule Take 1 [...] paracentesis 100 mL 0 04/09/2023 Active PEG 3606-XXx-VvLyj-NaCl- NaSulf 236 GM Oral Solution Reconstituted Take [...] 05/04/2023 10:30 AM EST Office Visit Orthopaedics [facility] [address] [place] [address] SharerCiara PA-C [address] [place] [address] 07/14/2023 9:20 AM EST Office Visit Dermatology [address] [place] [address] Jessica Williamson PA-C [address] [place] [address] [place] [address] 08/19/2023 11:40 AM EST Office Visit Hepatology, [facility] [address] [place] [address] Latoya Selby DO [address] [place] [address] Health Maintenance Due Date Last Done Comments Pneumococcal Vaccine: 65+ Years (1 - PCV) 1956 Depression Screening 1962 O2 ASSESSMENT COMPLETED IN PAST YEAR FOR COPD 1968 Cologuard 1995 Colonoscopy 1995 Colorectal Cancer Screening 1995 Fecal Occult Blood Test 1995 Sigmoidoscopy 1995 LUNG CANCER SCREENING - USE SMARTSET 01610 2000 Zoster Vaccines (1 of 2) 2000 [...] filedocumented as of this encounter Care Teams Aquatic Habitat Biologist Relationship Specialty Start Date End Date Jona Dominguez DO PCP - General 08/13/05 documented as of this encounter
--- OUTSIDE RECORDS SUMMARY | 2023-05-02 05:02 | External Medical Summary ---
Author Name Unknown Address Unknown Organization [id number]:[facility] [place] 57-[address] - [address] [place] [address] Laboratory Report Ordering Provider Test Date Status DAVONTE HIRSCH 04/16/2023 08:10:00 Final With paracentesis Observation Date Value Abnormality Reference (Units ) Status SYNC LEUKOCYTES IN BLOOD BY AUTOMATED COUNT 04/16/2023 08:10:00 5.30 4.00-10.80 (K/uL) Final Segs 04/16/2023 08:10:00 62.6 40.0-75.0 (%) Final Lymphs % 04/16/2023 08:10:00 17.5 Below low normal 18.0-42.0 (%) Final Monos 04/16/2023 08:10:00 13.8 Above high normal 1.0-11.0 (%) Final Eosinophils 04/16/2023 08:10:00 5.3 0.0-6.0 (%) Final Basos 04/16/2023 08:10:00 0.8 0.0-2.0 (%) Final Absolute Segs 04/16/2023 08:10:00 3.32 1.80-7.70 (K/uL) Final Lymphs, absolute 04/16/2023 08:10:00 0.93 Below low normal 1.00-4.80 (K/ul) Final Monos, Abs 04/16/2023 08:10:00 0.73 0.00-1.10 (K/uL) Final Eos, Abs 04/16/2023 08:10:00 0.28 0.00-0.70 (K/uL) Final Basos, Abs 04/16/2023 08:10:00 0.04 0.00-0.20 (K/uL) Final Performing Location [facility] [place] 57-[address] 0 - [address] [place] [address]
--- OUTSIDE RECORDS SUMMARY | 2023-05-02 05:02 | External Medical Summary ---
Author Name Unknown Address Unknown Organization [id number] - [address] [place] [address] Laboratory Report Ordering Provider Test Date Status SUSHANT JENKINS 04/19/2023 05:47:00 Final Anticoagulation may affect t esting. Refer to [facility] Test Catalog for a list of effects. Observation Date Value Abnormality Reference (Units ) Status aPTT panel - Platelet poor plasma 04/19/2023 05:47:00 41 Above high normal 21-38 (seconds) Final Performing Location [facility] [place] 57-[address] 0 - [address] [place] [address]
--- OUTSIDE RECORDS SUMMARY | 2023-05-02 05:03 | External Medical Summary ---
Author Name Unknown Address Unknown Organization [id number]:[facility] [place] [address] - [address] [place] [address] Laboratory Report Ordering Provider Test Date Status LINWOOD HIRSCHERSON 04/09/2023 09:31:21 Final Warfarin Therapy
INR: 2 .0-3.0 conventional anticoagulation
INR: 2.5- 3.5 high intensity anticoagulation Observation Date Value Abnormality Reference (Units ) Status PT 04/09/2023 09:31:21 37.8 Above high normal 11 .6-15.2 (seconds) Final INR 04/09/2023 09:31:21 3.8 Above high normal 0. 8-1.2 Final Performing Location [facility] [place] 57-[address] 0 - [address] [place] [address]
--- OUTSIDE RECORDS SUMMARY | 2023-05-02 05:03 | External Medical Summary ---
Author Name Unknown Address Unknown Organization [id number]:[facility] [place] - [address] [place] [address] Laboratory Report Ordering Provider Test Date Status DAVONTE HIRSCH 04/09/2023 09:31:21 Final Observation Date Value Abnormality Reference (Units ) Status Hep B surface Ag 04/09/2023 09:31:21 Negative Neg ative Final Performing Location [facility] - [address] [place] [address]
--- OUTSIDE RECORDS SUMMARY | 2023-05-02 05:03 | External Medical Summary ---
Author Name Unknown Address Unknown Organization [id number][facility] [place] [address] [place] [address] Laboratory Report Ordering Provider Test Date Status DAVONTE HIRSCH 04/09/2023 09:31:21 Final Observation Date Value Abnormality Reference (Units) Status Immunofixation for Serum or Plasma 04/09/2023 09:31:21 No monoclonal gammopathy detected. Final Performing Location [facility] [place] [address] [place] [address]
--- OUTSIDE RECORDS SUMMARY | 2023-05-02 05:03 | External Medical Summary | Summary of Care ---
Author Name Unknown Organization [facility] Address [address] [facility] [place] [address] Phone [phone] Care Team Providers Care Patient Financial Services Coordinator Name Role Phone Avtar Dominguez Primary Care Provider [phone] Reason for Referral * Precert (Within 10 days (routine)) - Authorized Specialty Diagnoses / Procedures Referred By Contac t Referred To Contact Radiology Diagnoses Alcoholic cirrhosis of liver with ascites (HCC) Procedures IR PARACENTESIS Latoya Arauz DO [address] [place] [address] Referral ID Status Reason Start Date Expiration Date V isits Requested Visits Authorized [id number] Authorized 04/09/2023 24 24 Reason for Visit * Reason Onset Date Comments Medication Refill 04/09/2023 Other 04/09/2023 Encounter Details Date Type Department Care Team Description 04/09/2023 Refill Gastroenterology, [facility] [address] [place] [address] Latoya Arauz DO [address] [place] [address] Alcoholic cirrhosis of liver with ascites (HCC)* Allergies Active Allergy Reactions Severity Noted Date Comments Lisinopril 04/09/2023 documented as of this encounter (statuses as of 04/09/2023) Medications Medication Sig Dispensed Refills Start Date [...] Prefilled Syringe Inject as directed. 0 01/21/2023 Activ e hydrOXYzine HCl 10 MG Oral Tablet (Atarax) Take 1 Tablet by mouth in the morning and 1 Tablet at noon and 1 Tablet in the evening and 1 Tablet before bedtime. 0 01/21/2023 Active Ipratropium-Albuter ol 0.5-2.5 (3) MG/3ML Inhalation Solution (Duoneb) Inhale [...] cut, crush or chew 0 01/21/2023 Active Niobrara Caps 1 MG Oral Capsule Take 1 Capsule by mouth in the morning. 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 bladder 03/30/2023 Hypoxemia 03/29/2023 History of abdominal paracentesis 2022 A-V fistula 03/24/2023 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 Ascites due to alcoholic cirrhosis 02/17 Renal artery stenosis 02/17/2023 Protein-calorie malnutrition 01/27/2023 Anemia in chronic kidney disease, on chr onic dialysis 01/27/2023 ESRD on dialysis 01/21/2023 HTN, goal below 130/80 01/21/2023 Iron deficiency anemia 01/21/2023 Slow transit constipation 01/21/2023 PTSD (post-traumatic stress disorder) COPD, moderate 01/21/2023 Vitamin B1 deficiency 01/21/2023 Vitamin D deficiency 01/21/2023 Dry skin dermatitis 01/21/2023 Secondary hyperparathyroidism of renal o rigin 01/21/2023 Polycystic renal disease 01/21/2023 PAF (paroxysmal atrial fibrillation) 08/2022 Primary insomnia 01/21/2023 Pruritic condition 01/21/2023 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 behavioral disturbance, psychotic disturbance, mood disturbance, or anxiety 01/21/2023 BPH without obstruction/lower urinary tr act symptoms 01/21/2023 Benign neoplasm of skin of nose 01/22/20 Diverticulosis of large intestine withou t hemorrhage 01/21/2023 Chronic gout without tophus 01/21/2023 History of intracranial hemorrhage 01/21 History of nontraumatic rupture of cereb ral aneurysm 01/21/2023 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 Colon polyp 01/21/2023 History of tobacco use 01/21/2023 Personal history of alcoholism Full code status 01/21/2023 Coarse tremors 01/21/2023 FX CORONOID PROC ULNA-CL 07/17/2005 DISLOCAT ELBOW NEC-CLOSE 07/17/2005 documented as of this encounter (statuses as of 04/09/2023) Immunizations Name Administration Dates Next Due Seasonal Influenza, Quad, Nasal (Flumist) 2022 documented as of this encounter Social History Tobacco Use Types Packs/Day Years Used Date Smoking Tobacco: Former Cigarettes 1 55 1 967 - 2021 Smokeless Tobacco: Never Alcohol Use Standard Drinks/Week Comments Not Currently 72 (1 standard drink = 0.6 oz pu re alcohol) Sex Assigned at Date Recorded Not on file Job Start Date Occupation Industry Not on file Not on file Not on file documented as of this encounter Miscellaneous Notes * Telephone Encounter - Julia Walter LPN - 04/09/2023 11:16 AM EDTSigned Prescriptions: Disp Refills Albumin Human 25 % Intravenous Solution 100 mL 0 SiGm before and after paracentesis Authorizing Provider: LATOYA ARAUZ * Telephone Encounter - Julia Walter LPN - 04/09/2023 11:16 AM EDTSigned Prescriptions: Disp Refills Albumin Human 25 % Intravenous Solution 100 mL 0 SiGm before and after paracentesis Authorizing Provider: LATOYA ARAUZ * Telephone Encounter - Julia Walter LPN - 04/09/2023 11:16 AM EDT Spoke with nurse murguia, pt orders for paracentesis were received. * Telephone Encounter - Alexandra Spaulding RN - 04/09/2023 9:[address] Arauz asked us to assist with paracentesis orders. Reports patient is currently in a skilled nursing. I called [facility] and spoke to jose m. Reports he has paracenteses ordered there by the PA but theyare not weekly. Would prefer we order. Jose M agreable to scheduling once we fax the orders to her and [facility]. Pended orders. Please sign Dr. Arauz gave me a verbal to sign IR para orders she accidentally deleted them. She signed labs Faxed all orders and labs to [facility] main order fax, jose m at [facility] and IR at [facility] documented in this encounter Plan of Treatment Upcoming Encounters Date Type Specialty Care Team Description 04/09/[address] [facility] [address] [facility] [place] [address] Venous thrombosis of upper extremity* 04/12/[address] [facility] [address] [facility] [place] [address] 04/15/2023 Imaging Radiology 05/10/2023 Office Visit Dermatology Jessica Williamson PA-C [address] [place] [address] [place] [address] 06/17/2023 Procedure Only Endoscopy Latoya Arauz, DO [address] [place] [address] 06/17/2023 Procedure Only Endoscopy Latoya Arauz, DO [address] [place] [address] 08/19/2023 Office Visit Gastroenterology Latoya Arauz DO [address] [place] [address] Scheduled Orders Name Type Priority Associated Diagnoses Order Schedule CBC WITH WBC DIFFERENTIAL Lab Routine Alcoholic cirrhosis of liver with ascites (HCC) Every Week for 24 Occurrences starting 04/09/2023 until 10/09/2023 PT INR Lab Routine Alcoholic cirrhosis of liver with ascites (HCC) Every Week for 24 Occurrences starting 04/09/2023 until 04/09/2024 APTT Lab Routine Alcoholic cirrhosis of liver with ascites (HCC) Every Week for 24 Occurrences starting 04/09/2023 until 04/09/2024 IR PARACENTESIS Medical Imaging Routine Alcoholic cirrhosis of liver with ascites (HCC) Every Week for 24 Occurrences starting 04/09/2023 until 10/14/2023 Health Maintenance Due Date Last Done Comments Pneumococcal Vaccine: 65+ Years (1 - PCV) 1956 Depression Screening 1962 Alpha-1 Antitrypsin 1968 Hepatitis C Screening 1968 O2 ASSESSMENT COMPLETED IN PAST YEAR FOR COPD 1968 Zoster Vaccines (1 of 2) 1969 Cologuard 1995 Colonoscopy 1995 Colorectal Cancer Screening 1995 Fecal Occult Blood Test 1995 Sigmoidoscopy 1995 LUNG CANCER SCREENING - USE SMARTSET 34751 2000 Hepatitis B (1 of 3 - [...] Diagnosis Venous thrombosis of upper extremity- Primary Alcoholic cirrhosis of liver with ascites (HCC)- Primary Alcoholic cirrhosis of liver documented in this encounter Care Teams Patient Financial Services Coordinator Relationship Specialty Start Date End Date Jona Dominguez DO PCP - General 08/13/05 documented as of this encounter
--- OUTSIDE RECORDS SUMMARY | 2023-05-02 05:03 | External Medical Summary | Summary of Care ---
Author Name Unknown Organization [facility] Address [address] [facility] [place] [address] Phone [phone] Care Team Providers Care Water Ski Assembler Name Role Phone Avtar Dominguez Primary Care Provider [phone] Reason for Visit * Reason Onset Date Comments Med Request 04/09/2023 Encounter Details Date Type Department Care Team Description 04/09/2023 Telephone Gastroenterology, [facility] [address] [place] [address] Latoya Selby DO [address] [place] [address] Med Request Allergies Active Allergy Reactions Severity Noted Date [...] paracentesis 100 mL 0 04/09/2023 Active PEG 7373-SOc-HlNab-NaCl- NaSulf 236 GM Oral Solution Reconstituted Take [...] Encounter - Alexandra Spaulding RN - 04/09/2023 10:34 AM EDT pended * Telephone Encounter - ABBEY Rinaldi - 04/09/2023 9:23 AM EDT Pt is ronnie'd for colon 06/17 at [facility]. On dialysis - will need Goltyely prep sent to [facility]. documented in this encounter Plan of Treatment Upcoming Encounters Date Type Specialty Care Team Description 04/09/2023 Anticoagulation Pharmacy [facility] [address] [facility] [place] [address] 04/15/2023 Imaging Radiology 05/10/2023 Office Visit Dermatology Jessica Williamson PA-C [address] [place] [address] [place] [address] 06/17/2023 Procedure Only Endoscopy Latoya Selby DO [address] [place] [address] 06/17/2023 Procedure Only Endoscopy Latoya Selby DO [address] [place] [address] 08/19/2023 Office Visit Gastroenterology Latoya Selby DO [address] [place] [address] Health Maintenance Due Date Last Done Comments Pneumococcal Vaccine: 65+ Years (1 - PCV) 1956 Depression Screening 1962 Alpha-1 Antitrypsin 1968 Hepatitis C Screening 1968 O2 ASSESSMENT COMPLETED IN PAST YEAR FOR COPD 1968 Zoster Vaccines (1 of 2) 1969 Cologuard 1995 Colonoscopy 1995 Colorectal Cancer Screening 1995 Fecal Occult Blood Test 1995 Sigmoidoscopy 1995 LUNG CANCER SCREENING - USE SMARTSET 04208 2000 Hepatitis B (1 of 3 - [...] filedocumented as of this encounter Care Teams Water Ski Assembler Relationship Specialty Start Date End Date Jona Dominguez DO PCP - General 08/13/05 documented as of this encounter
--- OUTSIDE RECORDS SUMMARY | 2023-05-02 05:03 | External Medical Summary ---
Author Name Unknown Address Unknown Organization K01:[facility] [place] - [address] [facility] [address] Laboratory Report Ordering Provider Test Date Status TORREYDAVONTE LAUREANO 04/09/2023 09:31:21 Final Observation Date Value Abnormality Reference (Units ) Status Hep A, IgG and/or IgM 04/09/2023 09:31:21 Negative Negative Final Performing Location LABORATORY C - [address] [place] [address]
--- OUTSIDE RECORDS SUMMARY | 2023-05-02 05:03 | External Medical Summary ---
Author Name Unknown Address Unknown Organization K01:[facility] [address] [facility] [address] [place] [address] Laboratory Report Ordering Provider Test Date Status TORREYDAVONTE 04/09/2023 09:31:21 Final Observation Date Value Abnormality Reference (Units ) Status Alpha-Fetoprotein 04/09/2023 09:31:21 <1.8 0. 0-8.3 (ng/mL) Final Performing Location [facility] [place] [address] [place] [address]
--- OUTSIDE RECORDS SUMMARY | 2023-05-02 05:03 | External Medical Summary ---
Author Name Unknown Address Unknown Organization K0G:[facility]ORY [facility] 57-[address] - [address] [place] [address] Laboratory Report Ordering Provider Test Date Status SUSHANT JENKINS 04/09/2023 04:49:00 Final Warfarin Therapy
INR: 2 .0-3.0 conventional anticoagulation
INR: 2.5- 3.5 high intensity anticoagulation Observation Date Value Abnormality Reference (Units ) Status PT 04/09/2023 04:49:00 37.3 Above high normal 11 .6-15.2 (seconds) Final INR 04/09/2023 04:49:00 3.7 Above high normal 0. 8-1.2 Final Performing Location LAB[facility]ATORY [facility] [place] 57-1 0 - [address] [place] [address]
--- OUTSIDE RECORDS SUMMARY | 2023-05-02 05:03 | External Medical Summary | Summary of Care ---
Author Name Unknown Organization [facility] Address [address] [place] [address] Phone [phone] Care Team Providers Care Quality Assurance Assessor Name Role Phone Marla Dominguez The DO Primary Care Provider [phone] Encounter Details Date Type Department Care Team (Late st Contact Info) Description 04/11/2023 Orders Only Lab Mobile Phlebotomy [facility] [address] [place], [place] [id number] Maximo Taylor MD [address] [place] [address] [place] [address] Deep phlebothrombosis, antepartum, with delivery (HCC)* Allergies Active Allergy Reactions Criticality Noted Date Comments Lisinopril 04/09/2023 documented as of this encounter (statuses as of 04/11/2023) Medications Medication Sig Dispensed Refills Start Date [...] paracentesis 100 mL 0 04/09/2023 Active PEG 8266-LJg-GpGhn-NaCl- NaSulf 236 GM Oral Solution Reconstituted Take according to coloscopy prep instructions. 4000 mL 0 04/09/2023 Active documented as of this encounter (statuses as of 04/11/2023) Active Problems Problem Noted Date Diagnosed Date [...] as of this encounter (statuses as of 04/11/2023) Immunizations Name Administration Dates Next Due Seasonal [...] Care Team (Late st Contact Info) Description 04/12/2023 8:10 AM EDT Laboratory Lab [facility] [address] [facility] [place] [address] [place] [address] 04/12/2023 5:30 PM EDT Anticoagulation Pharmacy Call Center [facility] [address] [place] [address] [facility] [address] [facility] [place] [address] 04/15/2023 9:15 AM EDT Imaging Radiology [address] [place] [address] 05/10/2023 9:40 AM EST Office Visit Dermatology [address] [place] [address] Jessica Williamson PA-C [address] [place] [address] [place] [address] 06/17/2023 10:30 AM EST Procedure Only Endoscopy, [facility] [address] [place] [address] Latoya Selby DO [address] [place] [address] 06/17/2023 11:00 AM EST Procedure Only Endoscopy, [facility] [address] [place] [address] Latoya Selby DO [address] [place] [address] 08/19/2023 11:40 AM EST Office Visit Hepatology, [facility] [address] [place] [address] Latoya Selby DO [address] [place] [address] Scheduled Orders Name Type Priority Associated Diagnoses Orde r Schedule PT INR Lab Routine Deep phlebothrombosis, antepartum, with delivery (HCC) Expected: 04/12/2023, Expires: 04/11/2024 Health Maintenance Due Date Last Done Comments Pneumococcal Vaccine: 65+ Years (1 - PCV) 1956 Depression Screening 1962 Alpha-1 Antitrypsin 1968 O2 ASSESSMENT COMPLETED IN PAST YEAR FOR COPD 1968 Cologuard 1995 Colonoscopy 1995 Colorectal Cancer Screening 1995 Fecal Occult Blood Test 1995 Sigmoidoscopy 1995 LUNG CANCER SCREENING - USE SMARTSET 25967 2000 Zoster Vaccines (1 of 2) 2000 [...] as of this encounter Visit Diagnoses Diagnosis Deep phlebothrombosis, antepartum, with delivery (HCC)- Primary Deep phlebothrombosis, antepartum, with delivery documented in this encounter Care Teams Quality Assurance Assessor Relationship Specialty Start Date End Date Jona Dominguez DO PCP - General 08/13/05 documented as of this encounter
--- OUTSIDE RECORDS SUMMARY | 2023-05-02 05:03 | External Medical Summary ---
Author Name Unknown Address Unknown Organization [facility] [address] [place] [address] Laboratory Report Ordering Provider Test Date Status DAVONTE HIRSCH 04/09/2023 09:31:21 Final Observation Date Value Abnormality Reference (Units ) Status BUN 04/09/2023 09:31:21 54 Above high normal 6-20 (mg/dL) Final Creatinine 04/09/2023 09:31:21 5.6 Above high normal 0.6-1.2 (mg/dL) Final Glomerular filtration rate/1.73 sq M.predicted [Volume Rate/Area] in Serum, Plasma or Blood by Creatinine-based formula (CKD-EPI) 04/09/2023 09:31:21 10 Below low normal >=60 (mL/min) Final eGFR is calculated based on the CKD-EPI 2020 equation SODIUM 04/09/2023 09:31:21 137 135-146 (m mol/L) Final Potassium 04/09/2023 09:31:21 4.7 3.5-5.1 (m mol/L) Final Cl 04/09/2023 09:31:21 99 98-107 (mm ol/L) Final CO2 04/09/2023 09:31:21 29 22-32 (mmo l/L) Final Anion gap 04/09/2023 09:31:21 9 7-15 (mmol /L) Final Glucose 04/09/2023 09:31:21 87 70-120 (mg /dL) Final Calcium 04/09/2023 09:31:21 8.7 8.4-10.2 ( mg/dL) Final Performing Location LABORATORY [facility] 57-[address] 0 - [address] [place] [address]
--- OUTSIDE RECORDS SUMMARY | 2023-05-02 05:03 | External Medical Summary ---
Author Name Unknown Address Unknown Organization K01:LABORATORY [facility] [place] - [address] [facility] [address] [place] [address] Laboratory Report Ordering Provider Test Date Status DAVONTE HIRSCH 04/09/2023 09:31:21 Final Observation Date Value Abnormality Reference (Units ) Status Hep C Ab 04/09/2023 09:31:21 Negative Negative Final Performing Location LABORATORY [facility] [place] - [address] [facility] [address] [place] [address]
--- OUTSIDE RECORDS SUMMARY | 2023-05-02 05:03 | External Medical Summary ---
Author Name Unknown Address Unknown Organization [id number] [address] [place] [address] Laboratory Report Ordering Provider Test Date Status DAVONTE HIRSCH 04/12/2023 05:14:00 Final With paracentesis Observation Date Value Abnormality Reference (Units ) Status SYNC LEUKOCYTES IN BLOOD BY AUTOMATED COUNT 04/12/2023 05:14:00 7.19 4.00-10.80 (K/uL) Final Segs 04/12/2023 05:14:00 64.4 40.0-75.0 (%) Final Lymphs % 04/12/2023 05:14:00 17.1 Below low normal 18.0-42.0 (%) Final Monos 04/12/2023 05:14:00 12.7 Above high normal 1.0-11.0 (%) Final Eosinophils 04/12/2023 05:14:00 5.1 0.0-6.0 (%) Final Basos 04/12/2023 05:14:00 0.7 0.0-2.0 (%) Final Absolute Segs 04/12/2023 05:14:00 4.63 1.80-7.70 (K/uL) Final Lymphs, absolute 04/12/2023 05:14:00 1.23 1.00-4.80 (K/ul) Final Monos, Abs 04/12/2023 05:14:00 0.91 0.00-1.10 (K/uL) Final Eos, Abs 04/12/2023 05:14:00 0.37 0.00-0.70 (K/uL) Final Basos, Abs 04/12/2023 05:14:00 0.05 0.00-0.20 (K/uL) Final Performing Location LABORATORY [facility] [address] [place] [address]
--- OUTSIDE RECORDS SUMMARY | 2023-05-02 05:03 | External Medical Summary ---
Author Name Unknown Address Unknown Organization K0G[facility] [address] [place] [address] Laboratory Report Ordering Provider Test Date Status DAVONTE HIRSCH 04/09/2023 09:31:21 Final Observation Date Value Abnormality Reference (Units ) Status WBC, Total 04/09/2023 09:31:21 4.87 4.00-10.8 0 (K/uL) Final RBC 04/09/2023 09:31:21 3.37 4.50-5.25 (M/uL) Final Hemoglobin 04/09/2023 09:31:21 10.4 Below low normal 14 .0-16.8 (g/dL) Final HCT 04/09/2023 09:31:21 32.5 Below low normal 40. 0-48.4 (%) Final MCV 04/09/2023 09:31:21 96.4 82.0-99.5 (fL) Final MCH 04/09/2023 09:31:21 30.9 27.0-34.0 (pg) Final MCHC 04/09/2023 09:31:21 32.0 32.0-36.0 (g/dL) Final RDW 04/09/2023 09:31:21 15.8 11.5-15.5 (%) Final Platelets 04/09/2023 09:31:21 288 140-400 (K /uL) Final MPV 04/09/2023 09:31:21 9.2 6.6-11.1 ( fL) Final Performing Location LABORATORY [facility] [address] [place] [address]
--- OUTSIDE RECORDS SUMMARY | 2023-05-02 05:03 | External Medical Summary ---
Author Name Unknown Address Unknown Organization [id number]:LABORATORY [facility] - [address] [place] [address] Laboratory Report Ordering Provider Test Date Status DAVONTE HIRSCH 04/09/2023 09:31:21 Final Observation Date Value Abnormality Reference (Units ) Status Mitochondria M2 Ab [Presence] in Serum 04/09/2023 09:31:21 Negative Negative Final Mitochondria M2 Ab [Units/volume] in Serum by Immunoassay 04/09/2023 09:31:21 1.2 <4 (U/mL) Final Performing Location LABORATORY [facility] - [facility] [address] [place] [address]
--- OUTSIDE RECORDS SUMMARY | 2023-05-02 05:03 | External Medical Summary | Summary of Care ---
Author Name Unknown Organization [facility] Address [address] [address] Phone [phone] Care Team Providers Care Hand Bander Name Role Phone Marla Dominguez The DO Primary Care Provider [phone] Reason for Visit * Reason Comments Dosage Adjustment Via Phone (anticoag Cl inic) Encounter Details Date Type Department Care Team Description 04/09/2023 Anticoagulation Pharmacy Call Center [address] [facility] [place] [address] [facility] [address] [facility] [place] [address] Venous thrombosis of upper extremity* Allergies Active Allergy Reactions Severity Noted Date [...] cut, crush or chew 0 01/21/2023 Active Rapides Caps 1 MG Oral Capsule Take 1 [...] paracentesis 100 mL 0 04/09/2023 Active PEG [id number]-NaCl- NaSulf 236 GM Oral Solution Reconstituted Take [...] this encounter Progress Notes * Miya Tucker [facility] - 04/09/2023 11:22 AM EDT Medication Therapy Disease Management - Anticoagulation Patient: Sisi Redmond | : 1950 Subjective Usp/SNF Patient Anticoagulation Encounter Patient is a resident at: [facility] -- Fax sent to number listed above detailing plan of care below. Please notify clinic with any unusual brusing or bleeding, N/V/D, medication or diet changes or anymissed or extra doses of Coumadin. Patient-Reported Symptoms:STOP LOVENOX Objective Current Warfarin Dose As of 04/09/2023 Warfarin maintenance plan: No maintenance plan INR Result As of 04/09/2023 INR goal: 2.0-3.0 INR used for dosin.8 (04/09/2023) Assessment & Plan Warfarin Plan As of 04/09/2023 Full warfarin instructions: 04/09: Hold; 04/10: 5 mg; 04/11: 7.5 mg Next INR check: 04/12/2023 Repeat PT/INR in 3 day(s) Weekly dose: establishing Additional Dosing Information: Miya Tucker RPh Clinical Pharmacist 04/09/2023, 11:24 AM documented in this encounter Plan of Treatment Upcoming Encounters Date Type Specialty Care Team Description 04/12/2023 [facility] [address] [facility] Radiology 05/10/2023 Office Visit Dermatology Jessica Williamson PA-C [address] [place] [address] [place] [id number] 06/17/2023 Procedure Only Endoscopy Latoya Selby DO [address] [place] [address] 06/17/2023 Procedure Only Endoscopy Latoya Selby DO [address] [place] [address] 08/19/2023 Office Visit Gastroenterology Latoya Selby DO [address] [place] [address] Health Maintenance Due Date Last Done Comments Pneumococcal Vaccine: 65+ Years (1 - PCV) 1956 Depression Screening 1962 Alpha-1 Antitrypsin 1968 Hepatitis C Screening 1968 O2 ASSESSMENT COMPLETED IN PAST YEAR FOR COPD 1968 Zoster Vaccines (1 of 2) 1969 Cologuard 1995 Colonoscopy 1995 Colorectal Cancer Screening 1995 Fecal Occult Blood Test 1995 Sigmoidoscopy 1995 LUNG CANCER SCREENING - USE SMARTSET 75627 2000 Hepatitis B (1 of 3 - [...] Primary documented in this encounter Care Teams Hand Bander Relationship Specialty Start Date End Date Jona Dominguez DO PCP - General 08/13/05 documented as of this encounter"
--- OUTSIDE RECORDS SUMMARY | 2023-05-02 05:03 | External Medical Summary ---
Author Name Unknown Address Unknown Organization K01:LABORATORY [facility] - [address] [place] [address] Laboratory Report Ordering Provider Test Date Status DAVONTE HIRSCH 04/09/2023 09:31:21 Final Observation Date Value Abnormality Reference (Units ) Status Iron 04/09/2023 09:31:21 47 45-176 (ug/dL) Final Iron-binding capacity 04/09/2023 09:31:21 139 Below low normal 250-425 (ug/dL) Final Transferrin Sat % 04/09/2023 09:31:21 34 15-55 (%) Final Performing Location LABORATORY [facility] - [address] [place] [address]
--- OUTSIDE RECORDS SUMMARY | 2023-05-02 05:03 | External Medical Summary ---
Author Name Unknown Address Unknown Organization [id number]:LABORATORY [facility] [address] [place] [address] Laboratory Report Ordering Provider Test Date Status DAVONTE HIRSCH 04/09/2023 09:31:21 Final Observation Date Value Abnormality Reference (Units ) Status SYNC LEUKOCYTES IN BLOOD BY AUTOMATED COUNT 04/09/2023 09:31:21 4.87 4.00-10.80 (K/uL) Final Segs 04/09/2023 09:31:21 60.8 40.0-75.0 (%) Final Lymphs % 04/09/2023 09:31:21 17.2 Below low normal 18.0-42.0 (%) Final Monos 04/09/2023 09:31:21 14.8 Above high normal 1.0-11.0 (%) Final Eosinophils 04/09/2023 09:31:21 6.2 Above high normal 0.0-6.0 (%) Final Basos 04/09/2023 09:31:21 1.0 0.0-2.0 (%) Final Absolute Segs 04/09/2023 09:31:21 2.96 1.80-7.70 (K/uL) Final Lymphs, absolute 04/09/2023 09:31:21 0.84 Below low normal 1.00-4.80 (K/ul) Final Monos, Abs 04/09/2023 09:31:21 0.72 0.00-1.10 (K/uL) Final Eos, Abs 04/09/2023 09:31:21 0.30 0.00-0.70 (K/uL) Final Basos, Abs 04/09/2023 09:31:21 0.05 0.00-0.20 (K/uL) Final Performing Location LAB[facility]ATORY [facility] [address] [place] [address]
--- OUTSIDE RECORDS SUMMARY | 2023-05-02 05:03 | External Medical Summary | Summary of Care ---
Author Name Unknown Organization [facility] Address [address] [place] [address] Phone [phone] Care Team Providers Care Dross Skimmer Name Role Phone Avtar Dominguez Primary Care Provider [phone] Reason for Referral * Evaluate & Treat - Unlimited Visits (Within 3 days (urgent)) - Authorized Specialty Diagnoses / Procedures Referred By Vivi avila Referred To Contact Dermatology Diagnoses Skin lesion [facility]oya Sel[facility] DO [address] [facility] [address] Referral ID Status Reason Start Date Expiration Date Visits Requested Visits Authorized [id number] Authorized Specialty Services Required 3 [phone] Question Answer Referral Priority Within 3 days (urgent) Where should this appointment be scheduled? [facility] Are you referring the patient for Mohs Surgery and have a current positive skin cancer biopsy result? No What is the reason for the patient referral? Rash/Skin Check/Eval of Lesion or Mole Comments Concerning ulcerated skin lesion on nose concerning for malignancy Reason for Visit * Reason Comments NEW PATIENT * Evaluate & Treat - Unlimited Visits (Within 3 days (urgent)) - Authorized Specialty Diagnoses / Procedures Referred By Vivi avila Referred To Contact Gastroenterology Diagnoses Cirrhosis of liver with ascites, unspecified hepatic cirrhosis type Brianna Orozco PA-C [address] [place] [address] Referral ID Status Reason Start Date Expiration Date Visits Requested Visits Authorized [id number] Authorized Specialty Services Required 03/02/[phone] Encounter Details Date Type Department Care Team Description 04/09/2023 Office Visit Hepatology, [facility] [address] [place] [address] Latoya Selby DO [address] [place] [address] Alcoholic cirrhosis of liver with ascites (HCC)*; Encounter for screening for other viral diseases; Skin lesion; Screen for colon cancer; Abnormal weight loss Allergies Active Allergy Reactions Severity Noted Date [...] cut, crush or chew 0 01/21/2023 Active Grafton Caps 1 MG Oral Capsule Take 1 [...] of water or juice.. 0 02/25/2023 Active documented as of this encounter (statuses [...] 1 967 - 2021 Smokeless Tobacco: Never Tobacco Cessation:Counseling Given: Not Answered Alcohol Use Standard Drinks/Week Comments Not Currently 72 (1 standard drink = 0.6 oz pu re alcohol) Sex Assigned at Date Recorded Not on file Job Start Date Occupation Industry Not on file Not on file Not on file documented as of this encounter Last Filed Vital Signs Vital Sign Reading Time Taken Comments Blood Pressure 124/58 04/09/2023 8:27 AM EDT Pulse 79 04/09/2023 8:27 AM EDT Temperature 36.7 C (98.1 F) 04/09/2023 8:27 AM ED T Respiratory Rate 18 04/09/2023 8:27 AM EDT Oxygen Saturation - - Inhaled Oxygen Concentration - - Weight 79.1 kg (174 lb 4.8 oz) 04/09/2023 8:27 A M EDT Height 182.9 cm (6') 04/09/2023 8:27 AM EDT Body Mass Index 23.64 04/09/2023 8:27 AM EDT documented in this encounter Progress Notes * Latoya Selby, DO - 04/09/2023 8:33 AM EDT Images from the original note were not included. Hepatology Clinic Note Date of appointment: 04/09/2023 History of Present Illness: Sisi Redmond is a 72 year old F with PMH of decompenasted alcohol cirrhosis c/b ascites here today to establish care. Referred by Brianna Orozco PA-C. He has PMH notablefor ESRD on dialysis, Alzheimer's, atrial fibrillation, HTN, COPD, intracranial hemorrhage 2012, rec ent urothelial lesion concerning for malignancy following [facility], COPD on home O2, history of seizures, history of cerebral aneurysm repair at 2013 at [facility]. He live at [facility] and is accompanied by a caregiver with him today. He has no records scanned in the chart or with him today and he is a very poor historian about his liver disease. In regards to his urothelial masses he saw [facility] and was diagnosed with papillary transitional cell carcinoma and is undergoing fulguration. He was deemed a poor surgical candidate. He has had recurring ascites and is requiring paracentesis since the past month. He is getting a paracentesis right now weekly and they are getting 8-10L. He is anuric and can not take any diuretics due to his ESRD. He was doing peritoneal dialysis but this was stopped because it got infected and he now has a fistula that is maturing and he has a port/catheter in his chest. He states he was not aware of any cirrhosis or liver issues until he came here today (it was noted on CT scan in January). He states he was a heavy drinker for many years over 30-40 years. Started drinking at age 14 and hequit 6-7 years ago. He states he drank so much alcohol he can't even quantify. He denies any IV or intranasal drug use. He used to smoke a couple PPD of tobacco but quit 2-3 months ago. There is no known family history of liver disease, HCC, or GI malignancy. He denies any OTC or herbal supplements. He has never had a colonoscopy before in his life. Decompensations: Varices: unknown Ascites: yes SBP: no HRS: no HE: no HCC: no Screening: EGD: never had one Colonoscopy never had one Liver imaging: CT abd/pelvis 01/2023- no liver lesions mentioned but was found to have a bladder tumor/malignancy Review of systems: Positives in HPI. Negative for: Denies headache, lightheadedness, chest pain, cough, SOB, fever, chills, nausea, vomiting, heart burn, bloating, decreased appetite, early satiety, abdominal pain, diarrhea, fecal incontinence, constipation, rectal bleeding, weight loss, dysuria, frequency, incontinence, joint pain, back pain, weakness, fatigue, anxiety, depressed mood, difficulty sleeping. The remaining ROS reviewed and are negative. No past medical history on file. Past Surgical History: Procedure Laterality Date BRAIN ANEURYSM REPR, SIMPLE 2012 MRI compatible brain aneurysm clip [facility] [place] COLONOSCOPY CYSTOSCOPY/BIOPSY 03/29/2023 cystoscopy, fulgaration of bladder lesion. Dr Reyna, [facility] [place] INFORMATION removal of benign neoplasm nose OR CREAT AV FISTULA,AUTOGENOUS GRAFT Left 03/23/2023 Dr. Eriberto Augustine TOOTH ROOT REMOVAL complete dental extraction Family History Problem Relation Age of Onset Cancer Mother Other (accidental) Father Current Outpatient Medications Medication Sig Dispense Refill Amiodarone HCl 200 MG Oral Tablet (Cordarone) Take 1 Tablet by mouth in the morning. amLODIPine Besylate 2.5 MG Oral Tablet (Norvasc) Take 1 Tablet by mouth in the morning. Auryxia 1 GM 210 MG(Fe) Oral Tablet (Ferric Citrate) Take 2 Tablets by mouth in the morning and 2 Tablets at noon and 2 Tablets in the evening. Take before meals. Cinacalcet HCl 30 MG Oral Tablet (Sensipar) Take 1 Tablet by mouth in the morning. Divalproex Sodium 500 MG Oral Tablet Delayed Release (Depakote DR) Take 1 Tablet by mouth in the morning. Docusate Sodium 100 MG Oral Capsule Take 4 Capsules by mouth in the morning and 4 Capsules before bedtime. Ipratropium-Albuterol 0.5-2.5 (3) MG/3ML Inhalation Solution (Duoneb) Inhale 3 mL via nebulizer every 4 hours as needed for Wheezing. Loratadine 10 MG Oral Tablet (Claritin) Take 1 Tablet by mouth every other day. Melatonin 5 MG Oral Capsule Take 1 Capsule by mouth at bedtime. Grafton Caps 1 MG Oral Capsule Take 1 Capsule by mouth in the morning. Vitamin B-1 100 MG Oral Tablet Take 1 Tablet by mouth in the morning. Vitamin D3 125 MCG (5000 UT) Oral Capsule Take 1 Capsule by mouth in the morning. Famotidine 20 MG Oral Tablet (Pepcid) Take 1 Tablet by mouth in the morning. traZODone HCl 50 MG Oral Tablet (Desyrel) Take 1 Tablet by mouth at bedtime. Polyethylene Glycol 3350 17 GM/SCOOP Oral Powder Take 17 g by mouth in the morning. Dissolve one heaping tablespoon in 8 ounces of water or juice.. EPINEPHrine 0.3 MG/0.3ML Injection Solution Prefilled Syringe Inject as directed. hydrOXYzine HCl 10 MG Oral Tablet (Atarax) Take 1 Tablet by mouth in the morning and 1 Tablet at noon and 1 Tablet in the evening and 1 Tablet before bedtime. (Patient not taking: Reported on 04/09/2023) guaiFENesin ER 600 MG Oral Tablet Extended Release 12 Hour Take 2 Tablets by mouth 2 times a day asneeded for Congestion. Take with plenty of water. Do not cut, crush or chew (Patient not taking: Reported on 04/09/2023) Stiolto Respimat 2.5-2.5 MCG/ACT Inhalation Aerosol Solution (Tiotropium- Olodaterol) Inhale 2 Puffsby mouth in the morning. Suplena 1.8/CarbSteady Oral Liquid Take 120 mL by mouth in the morning and 120 mL before bedtime. triamcinolone 0.1% in hydrophilic ointment 2:1 Apply topically to affected area 2 times a day. Acetaminophen 325 MG Oral Tablet (Tylenol) Take 2 Tablets by mouth every 4 hours as needed for Fever >38C(100.5F), Pain, Mild, Pain, Moderate or Pain, Severe. traMADol HCl 50 MG Oral Tablet (Ultram) Take 1 Tablet by mouth every 6 hours as needed for Pain, Moderate or Pain, Severe. (Patient not taking: Reported on 04/09/2023) 40 Tablet 0 No current facility-administered medications for this visit. Review of patient's allergies indicates: Allergen Reactions Lisinopril Physical Exam: vitals: BP 124/58 | Pulse 79 | Temp 36.7 C (98.1 F) (Infrared ) | Resp 18 | Ht 1.829 m (6') | Wt 79.1 kg (174 lb 4.8 oz) | BMI 23.64 kg/m | BSA 2 m GENERAL: Well developed and well nourished in no acute distress. No notable sarcopenia. SKIN: ulcerated and dark skin lesion on his L nare. His nose is deformed and the lesion has irregular borders. HEENT: Normocephalic, sclera anicteric NECK: Supple LUNGS: Clear to auscultation bilaterally, no respiratory distress or accessory muscles used. HEART: Regular rate & rhythm, no murmurs, rubs, or gallops present ABDOMEN: Normal bowel sounds, soft but distended with moderate ascites, non- tender to palpation EXTREMITIES: No palmar erythema, 2+ lower extremity edema. L arm in cast. NEURO: No lateralizing findings. Sensory/Motor grossly normal. No asterixis present on exam. Recent Labs: Reviewed Component Ref Range & Units 1 mo ago Albumin 3.8 - 5.0 g/dL 3.2 Low AST 10 - 50 U/L 12 Alkaline Phosphatase 35 - 130 U/L 53 ALT 10 - 50 U/L 9 Low Bilirubin, Total <=1.2 mg/dL 0.2 Bilirubin, Direct 0.0 - 0.3 mg/dL <0.2 Protein 6.0 - 8.3 g/dL 5.5 Low Component Ref Range & Units 3 mo ago WBC 4.00 - 10.80 K/uL 7.75 RBC 4.50 - 5.25 M/uL 3.49 HGB 14.0 - 16.8 g/dL 10.8 Low HCT 40.0 - 48.4 % 34.4 Low MCV 82.0 - 99.5 fL 98.6 MCH 27.0 - 34.0 pg 30.9 MCHC 32.0 - 36.0 g/dL 31.4 RDW 11.5 - 15.5 % 18.1 PLT 140 - 400 K/uL 331 MPV 6.6 - 11.1 fL 9.6 Component Ref Range & Units 3 mo ago BUN 6 - 20 mg/dL 51 High Creatinine 0.6 - 1.2 mg/dL 8.8 High Estimated Glomerular Filtration Rate >=60 mL/min 6 Low Comment: eGFR is calculated based on the CKD-EPI 2020 equation Sodium 135 - 146 mmol/L 140 Potassium 3.5 - 5.1 mmol/L 6.1 High Chloride 98 - 107 mmol/L 99 CO2 22 - 32 mmol/L 25 Anion Gap 7 - 15 mmol/L 16 High Glucose 70 - 120 mg/dL 84 Albumin 3.8 - 5.0 g/dL 3.6 Low AST 10 - 50 U/L 22 Comment: Result may be falsely elevated due to hemolysis. Alkaline Phosphatase 35 - 130 U/L 56 Bilirubin, Total <=1.2 mg/dL 0.3 Calcium 8.4 - 10.2 mg/dL 10.1 Protein 6.0 - 8.3 g/dL 5.8 Low ALT 10 - 50 U/L 15 Recent Imaging Studies: Reviewed CT abd/pelvis w/ contrast 02/10/2023: Recent Endoscopic Procedures: Reviewed Assessment and plan: Sisi Redmond is a 72 year old F with PMH of decompenasted alcohol cirrhosis c/b ascites here today to establish care. Referred by Brianna Switala, PA-C. He has PMH notable for ESRD on dialysis, Alzheimer's, atrial fibrillation, HTN, COPD, intracranial hemorrhage 2013, recent urothelial lesion concerning for malignancy following [facility], COPD on home O2, history of seizures, history of cerebral aneury sm repair at 2013 at [facility]. -Liver disease severity. We will get MELD labs today.This will likely be falsely elevated as he is on dialysis. His cirrhosis is most likely due to alcohol given many years of abuse but a complete serological work up has been ordered to check for other causes. -Variceal screening: he has never had an EGD. EGD ordered for variceal screening. -Fluid status: based on today's physical exam, the pt. has 2+ pedal edema and moderate ascites. He is anuric due to dialysis and can not be placed on any diuretics. Will send order to [facility] for[facility]ly paracentesis as needed and they can also manage his fluid on his dialysis days. I strongly recommend a 2 gram sodium restricted diet but he does not believe they can do this (special diets[facility] -Hepatic encephalopathy: based on today's examination, the pt. does not have asterixis.he has no history of HE. -Renal function: he is ESRD on dialysis -HCC screening. Pt.'s last liver imaging study was done 01/2023. Pt will need HCC screening every 6 months with imaging in conjunction with an AFP. Order placed for abdominal ultrasound with AFP. -Avoid liver toxins including over the counter herbal supplements. May take Acetaminophen up to 2 grams a day. Avoid NSAIDS due to increased risk of GI bleeding and fluid retention. Avoid all alcohol. Patient encouraged to avoid benzodiazepines and opiate pain medications due to risk of precipitating HE. -Vaccination: will get HAV and HBV serologies and then vaccinate accordingly. -Colorectal cancer screening: he believes he had 1 colonoscopy in the past many years ago but isn'tsure. Colonoscopy ordered for colon cancer screening. -he has an ulcerated and dark skin lesion on his nose that is very concerning. He states he has hadthis for 4-5 years and has not seen a vp emerging [facility]. He had been recommended in the past but has not gone. Urgent dermatology referral placed today. -Follow up in 4 months Latoya Selby DO Gastroenterology and Hepatology I spent a total of 50 minutes on the date of service in review of patient's record, and previously obtained information in person and appropriate medical visit, discussion and education of plan, withpatient and/or caregiver, placing orders for tests/referral/procedures as medically necessary and documentation of pertinent clinical information in patient's medical records for their visit today. documented in this encounter Nursing Notes * Seema Moser RN - 04/09/2023 8:33 AM EDT Chief Complaint Patient presents with NEW PATIENT Here with caregiver. Is at [facility] currently. Denies any GI complaints. documented in this encounter Plan of Treatment Upcoming Encounters Date Type Specialty Care Team Description 04/09/2023 Laboratory Laboratory George Fam [address] [place] [id number] Arrived 04/09/2023 Anticoagulation Pharmacy [facility] [address] [place] [address] 04/15/2023 Imaging Radiology 05/10/2023 Office Visit Dermatology Jessica Williamson PA-C [address] [place] [address] [place] [address] 06/17/2023 Procedure Only Endoscopy Latoya Selby DO [address] [place] [address] 08/19/2023 Office Visit Gastroenterology Latoya Selby DO [address] [place] [address] Scheduled Orders Name Type Priority Associated Diagnoses Order Schedule ACTIN (SMOOTH MUSCLE) ANTIBODY (IGG) Lab Routine Alcoholic cirrhosis of liver with ascites (HCC) Ordered: 04/09/2023 HEPATIC FUNCTION PANEL Lab Routine Alcoholic cirrhosis of liver with ascites (HCC) Ordered: 04/09/2023 HEPATITIS A ANTIBODIES IGG AND IGM Lab Routine Alcoholic cirrhosis of liver with ascites (HCC) Ordered: 04/09/2023 HEPATITIS B CORE ANTIBODIES IGG AND IGM Lab Routine Alcoholic cirrhosis of liver with ascites (HCC) Encounter for screening for other viral diseases Ordered: 04/09/2023 HEPATITIS A ANTIBODY IGM Lab Routine Alcoholic cirrhosis of liver with ascites (HCC) Ordered: 04/09/2023 HEPATITIS B SURFACE ANTIBODY Lab Routine Alcoholic cirrhosis of liver with ascites (HCC) Ordered: 04/09/2023 HEPATITIS B SURFACE ANTIGEN Lab Routine Alcoholic cirrhosis of liver with ascites (HCC) Encounter for screening for other viral diseases Ordered: 04/09/2023 HEPATITIS C ANTIBODY Lab Routine Alcoholic cirrhosis of liver with ascites (HCC) Ordered: 04/09/2023 IRON SCREEN, INCLUDING TIBC Lab Routine Alcoholic cirrhosis of liver with ascites (HCC) Ordered: 04/09/2023 MITOCHONDRIAL ANTIBODY Lab Routine Alcoholic cirrhosis of liver with ascites (HCC) Ordered: 04/09/2023 PT INR Lab Routine Alcoholic cirrhosis of liver with ascites (HCC) Ordered: 04/09/2023 SERUM PROTEIN ELECTROPHORESIS REFLEX PROFILE Lab Routine Alcoholic cirrhosis of liver with ascites (HCC) Ordered: 04/09/2023 [id number], QN Lab Routine Alcoholic cirrhosis of liver with ascites (HCC) Ordered: 04/09/2023 ALPHA-FETOPROTEIN TUMOR MARKER Lab Routine Alcoholic cirrhosis of liver with ascites (HCC) Ordered: 04/09/2023 BASIC METABOLIC PANEL Lab Routine Alcoholic cirrhosis of liver with ascites (HCC) Ordered: 04/09/2023 CBC WITH WBC DIFFERENTIAL Lab Routine Alcoholic cirrhosis of liver with ascites (HCC) Ordered: 04/09/2023 CERULOPLASMIN Lab Routine Alcoholic cirrhosis of liver with ascites (HCC) Ordered: 04/09/2023 FERRITIN Lab Routine Alcoholic cirrhosis of liver with ascites (HCC) Ordered: 04/09/2023 US ABDOMEN LIMITED Medical Imaging Routine Alcoholic cirrhosis of liver with ascites (HCC) Ordered: 04/09/2023 EGD, FLEXIBLE, DIAGNOSTIC Procedures Routine Alcoholic cirrhosis of liver with ascites (HCC) Ordered: 04/09/2023 COLONOSCOPY, DIAGNOSTIC (RECTUM) Procedures Routine Alcoholic cirrhosis of liver with ascites (HCC) Screen for colon cancer Abnormal weight loss Ordered: 04/09/2023 Scheduled Referrals Name Type Priority Associated Diagnoses Orde r Schedule DERMATOLOGY REFERRAL OP Referral Within 3 days (urgent) Skin lesion Ordered: 04/09/2023 Health Maintenance Due Date Last Done Comments Pneumococcal Vaccine: 65+ Years (1 - PCV) 1956 Depression Screening 1962 Alpha-1 Antitrypsin 1968 Hepatitis C Screening 1968 O2 ASSESSMENT COMPLETED IN PAST YEAR FOR COPD 1968 Zoster Vaccines (1 of 2) 1969 Cologuard 1995 Colonoscopy 1995 Colorectal Cancer Screening 1995 Fecal Occult Blood Test 1995 Sigmoidoscopy 1995 LUNG CANCER SCREENING - USE SMARTSET 75923 2000 Hepatitis B (1 of 3 - [...] ascites (HCC)- Primary Alcoholic cirrhosis of liver Encounter for screening for other viral diseases Skin lesion Unspecified disorder of skin and subcutaneous tissue Screen for colon cancer Special screening for malignant neoplasms, colon Abnormal weight loss Loss of weight documented in this encounter Care Teams Dross Skimmer Relationship Specialty Start Date End Date Jona Dominguez DO PCP - General 08/13/05 documented as of this encounter"
--- OUTSIDE RECORDS SUMMARY | 2023-05-02 05:03 | External Medical Summary ---
Author Name Unknown Address Unknown Organization : Laboratory Report Ordering Provider Test Date Status DAVONTE HIRSCH 04/09/2023 09:31:21 Final Observation Date Value Abnormality Reference (Units ) Status Ceruloplasmin 04/09/2023 09:31:21 26 18-36 (mg/dL) Final
Test Performed at:
[facility]
[address] [facility]
[place] [address]
Jef Leigh M.D., Ph.D.,Director of Laboratories Performing Location
--- OUTSIDE RECORDS SUMMARY | 2023-05-02 05:03 | External Medical Summary ---
Author Name Unknown Address Unknown Organization K01:LABORATORY C - [address] [place] [address] Laboratory Report Ordering Provider Test Date Status DAVONTE HIRSCH 04/09/2023 09:31:21 Final Observation Date Value Abnormality Reference (Units ) Status Ferritin 04/09/2023 09:31:21 1081 Above high normal 30 -400 (ng/mL) Final Performing Location LABORATORY [facility] - [address] [place] [address]
--- OUTSIDE RECORDS SUMMARY | 2023-05-02 05:03 | External Medical Summary ---
Author Name Unknown Address Unknown Organization [id number][facility] [address] [place] [address] Laboratory Report Ordering Provider Test Date Status DAVONTE HIRSCH 04/12/2023 05:14:00 Final With paracentesis Observation Date Value Abnormality Reference (Units ) Status WBC, Total 04/12/2023 05:14:00 7.19 4.00-10.8 0 (K/uL) Final RBC 04/12/2023 05:14:00 3.36 4.50-5.25 (M/uL) Final Hemoglobin 04/12/2023 05:14:00 10.3 Below low normal 14 .0-16.8 (g/dL) Final HCT 04/12/2023 05:14:00 31.9 Below low normal 40. 0-48.4 (%) Final MCV 04/12/2023 05:14:00 94.9 82.0-99.5 (fL) Final MCH 04/12/2023 05:14:00 30.7 27.0-34.0 (pg) Final MCHC 04/12/2023 05:14:00 32.3 32.0-36.0 (g/dL) Final RDW 04/12/2023 05:14:00 16.1 11.5-15.5 (%) Final Platelets 04/12/2023 05:14:00 313 140-400 (K /uL) Final MPV 04/12/2023 05:14:00 9.2 6.6-11.1 ( fL) Final Performing Location LABORATORY [facility] [place] [address] [place] [address]
--- OUTSIDE RECORDS SUMMARY | 2023-05-02 05:03 | External Medical Summary ---
Author Name Unknown Address Unknown Organization : Laboratory Report Ordering Provider Test Date Status DAVONTE HIRSCH 04/09/2023 09:31:21 Final Observation Date Value Abnormality Reference (Units ) Status Alpha-1 antitrypsin 04/09/2023 09:31:21 183 83-199 (mg/dL) Final
Test Performed at:
[facility]
[address] [facility]
[place] [address]
Jef Leigh M.D., Ph.D.,Director of Laboratories Performing Location
--- OUTSIDE RECORDS SUMMARY | 2023-05-02 05:03 | External Medical Summary ---
Author Name Unknown Address Unknown Organization [id number][facility] [place] [address] Laboratory Report Ordering Provider Test Date Status DAVONTE HISRCH 04/12/2023 05:14:00 Final With paracentesis

A nticoagulation may affect testing. Refer to [facility] Test Catalog for a list of effects. Observation Date Value Abnormality Reference (Units ) Status aPTT panel - Platelet poor plasma 04/12/2023 05:14:00 72 Above high normal 21-38 (seconds) Final Performing Location LABORATORY [facility] [place] [address] [place] [id number]
--- OUTSIDE RECORDS SUMMARY | 2023-05-02 05:03 | External Medical Summary ---
Author Name Unknown Address Unknown Organization K01:LABORATORY [facility] - [address] [place] [address] Laboratory Report Ordering Provider Test Date Status DAVONTE HIRSCH 04/09/2023 09:31:21 Final Observation Date Value Abnormality Reference (Units ) Status Hep A IgM 04/09/2023 09:31:21 Negative Negative Final Performing Location LABORATORY [facility] - [address] [address]
--- OUTSIDE RECORDS SUMMARY | 2023-05-02 05:03 | External Medical Summary | Summary of Care ---
Author Name Unknown Organization [facility] Address [address] [place] [facility] [place] [address] Phone [phone] Care Team Providers Care Ornamental Ironworker Name Role Phone Avtar Dominguez Primary Care Provider [phone] Reason for Visit * Reason Comments Outpatient Testing Encounter Details Date Type Department Care Team Description 04/09/2023 Laboratory Laboratory, [facility] [address] [facility] [place] [address] [facility] [address] [facility] [place] [address] Arrived Allergies Active Allergy Reactions Severity Noted Date [...] cut, crush or chew 0 01/21/2023 Active Venango Caps 1 MG Oral Capsule Take 1 [...] Benign neoplasm of skin of nose 01/22/20 23 Diverticulosis of large intestine withou t hemorrhage [...] Specialty Care Team Description 04/09/2023 [facility] [address] [facility] [address] 04/15/2023 Imaging Radiology 05/10/2023 Office Visit Dermatology Jessica Williamson PA-C [address] [place] [address] [place] [address] 06/17/2023 Procedure Only Endoscopy Latoya Selby DO [address] [place] [address] 06/17/2023 Procedure Only Endoscopy Latoya Selby DO [address] [place] [address] 08/19/2023 Office Visit Gastroenterology Latoya Selby DO [address] [place] [address] Health Maintenance Due Date Last Done Comments Pneumococcal Vaccine: 65+ Years (1 - PCV) 1956 Depression Screening 1962 Alpha-1 Antitrypsin 1968 Hepatitis C Screening 1968 O2 ASSESSMENT COMPLETED IN PAST YEAR FOR COPD 1968 Zoster Vaccines (1 of 2) 1969 Cologuard 1995 Colonoscopy 1995 Colorectal Cancer Screening 1995 Fecal Occult Blood Test 1995 Sigmoidoscopy 1995 LUNG CANCER SCREENING - USE SMARTSET 13827 2000 Hepatitis B (1 of 3 - [...] filedocumented as of this encounter Care Teams Ornamental Ironworker Relationship Specialty Start Date End Date Jona Dominguez DO PCP - General 08/13/05 documented as of this encounter
--- OUTSIDE RECORDS SUMMARY | 2023-05-02 05:03 | External Medical Summary ---
Author Name Unknown Address Unknown Organization K01:LABORATORY [address] [facility] [address] Laboratory Report Ordering Provider Test Date Status DAVONTE HIRSCH 04/09/2023 09:31:21 Final Observation Date Value Abnormality Reference (Units) Status Protein 09:31:21 4.7 Below low normal 6.0-8.3 (g/dL) Final Albumin/Protein.tota l [Pure mass fraction] in Serum or Plasma by Electrophoresis 09:31:21 2.39 Below low normal 3.30-4.40 (g/dL) Final Alpha 1 globulin/Protein.tot al [Pure mass fraction] in Serum or Plasma by Electrophoresis 09:31:21 0.25 0.10-0.30 (g/dL) Final Alpha 2 globulin/Protein.tot al [Pure mass fraction] in Serum or Plasma by Electrophoresis 09:31:21 0.75 0.60-1.00 (g/dL) Final Beta globulin/Protein.tot al [Pure mass fraction] in Serum or Plasma by Electrophoresis 09:31:21 0.74 Below low normal 0.80-1.30 (g/dL) Final Gamma globulin/Protein.tot al [Pure mass fraction] in Serum or Plasma by Electrophoresis 09:31:21 0.58 Below low normal 0.70-1.70 (g/dL) Final Protein Fractions [Interpretation] in Serum or Plasma by Electrophoresis Narrative 09:31:21 No paraprotein detected. Decreased gamma fraction. Urine immunofixation recommended in follow up, if clinically indicated. Final Performing Location LABORATORY [facility] - [address] [facility] [address]
--- OUTSIDE RECORDS SUMMARY | 2023-05-02 05:03 | External Medical Summary | Summary of Care ---
Author Name Unknown Organization [facility] Address [address] [place] [address] Phone [phone] Care Team Providers Care Hydraulic Pile Hammer Operator Name Role Phone Angelica Marla The DO Primary Care Provider [phone] Encounter Details Date Type Department Care Team Description 04/08/2023 Orders Only Lab Mobile Phlebotomy [facility] [address], [place] [id number] Maximo Taylor MD [address] [place] [address] [place] [address] DVT (deep venous thrombosis) ([facility])* Allergies No known active allergiesdocumented as of this encounter (statuses as of 04/08/2023) Medications Medication Sig Dispensed Refills Start Date [...] Sodium 500 MG Oral Tablet Delayed Release (Leana MEEKS) Take 1 Tablet by mouth in the morning. 0 01/21/2023 Active Docusate Sodium 100 MG Oral Capsule (Colace) Take 4 Capsules by mouth in the [...] MG Oral Tablet Extended Release 12 Hour (Mucinex) Take 2 Tablets by mouth 2 times a day as needed for Congestion. Take with plenty of water. Do not cut, crush or chew 0 01/21/2023 Active Comfort Caps 1 MG Oral Capsule Take 1 [...] Pain, Severe. 40 Tablet 0 02/17/2023 Active traZODone HCl 50 MG Oral Tablet (Desyrel) Take 1 Tablet by mouth at bedtime. 0 02/25/2023 Active Polyethylene Glycol 3350 17 GM/SCOOP Oral Powder (MiraLax) Take 17 g by mouth in the morning. Dissolve one heaping tablespoon in 8 ounces of water or juice.. 0 02/25/2023 Active documented as of this encounter (statuses as of 04/08/2023) Active Problems Problem Noted Date Venous thrombosis [...] 01/21/2023 Benign neoplasm of skin of nose 08/03/20 23 Diverticulosis of large intestine withou t [...] as of this encounter (statuses as of 04/08/2023) Social History Tobacco Use Types Packs/Day Years [...] Date Type Specialty Care Team Description 04/09/2023 Office Visit Gastroenterology Latoya Selby DO [address] [place] [address] 04/09/2023 Laboratory Laboratory Processing [address] [place] [address] 04/09/2023 Anticoagulation Pharmacy [facility] 58 60 [facility] [place] [address] Scheduled Orders Name Type Priority Associated Diagnoses Orde r Schedule PT INR Lab Routine DVT (deep venous thrombosis) (HCC) Expected: 04/09/2023, Expires: 04/08/2024 Health Maintenance Due Date Last Done Comments Pneumococcal Vaccine: 65+ Years (1 - PCV) 1956 Depression Screening 1962 Alpha-1 Antitrypsin 1968 Hepatitis C Screening 1968 O2 ASSESSMENT COMPLETED IN PAST YEAR FOR COPD 1968 Zoster Vaccines (1 of 2) 1969 Cologuard 1995 Colonoscopy 1995 Colorectal Cancer Screening 1995 Fecal Occult Blood Test 1995 Sigmoidoscopy 1995 LUNG CANCER SCREENING - USE SMARTSET 07577 2000 Hepatitis B (1 of 3 - Risk 3-dose series) 2010 AAA Screening 2015 *COPD SEVERITY VERIFIED BY PFT 01/23/2023 *CXR OR CT FOR COPD EVER 01/23/2023 COVID-19 Vaccine (3 - 2022-2 4 season) 2023 10/18/2020, 09/19/2020 Influenza Vaccine (FLU shot) (#1) 2023 DTaP,Tdap,and Td Vaccines (2 - Td or Tdap) 09/28/2026 09/28/2016 GARDASIL-HPV IMMUNIZATION SERIES Aged Out No longer eligible b ased on patient's age to complete this topic MENINGOCOCCAL (MENACTRA/MENVEO) Aged Out No longer eligible b ased on patient's age to complete this topic documented as of this encounter Medical Devices Not on filedocumented as of this encounter Visit Diagnoses Diagnosis DVT (deep venous thrombosis) (HCC)- Primary Acute venous embolism and thrombosis of unspecified deep vessels of lower extremity documented in this encounter Care Teams Hydraulic Pile Hammer Operator Relationship Specialty Start Date End Date Jona Dominguez DO PCP - General 08/13/05 documented as of this encounter
--- OUTSIDE RECORDS SUMMARY | 2023-05-02 05:03 | External Medical Summary ---
Author Name Unknown Address Unknown Organization K01:LABORATORY [facility] - [address] [place] [address] Laboratory Report Ordering Provider Test Date Status DAVONTE HIRSCH 04/09/2023 09:31:21 Final Observation Date Value Abnormality Reference (Units ) Status Hepatitis B virus core Ab [Presence] in Serum 04/09/2023 09:31:21 Negative Negative Final Performing Location LABORATORY [facility] - [address] [place] [address]
--- OUTSIDE RECORDS SUMMARY | 2023-05-02 05:03 | External Medical Summary ---
Author Name Unknown Address Unknown Organization K01:LABORATORY [place] [address] [place] [address] Laboratory Report Ordering Provider Test Date Status DAVONTE HIRSCH 04/09/2023 09:31:21 Final Observation Date Value Abnormality Reference (Units) Status Hepatitis B virus surface Ab [Units/volume] in Serum or Plasma by Immunoassay 04/09/2023 09:31:21 3.7 (mIU/mL) Final Hepatitis B virus surface Ab [Presence] in Serum by Immunoassay 04/09/2023 09:31:21 Negative Final HEPATITIS B SURFACE ANTIBODY, INTERPRETATION 04/09/2023 09:31:21 NOT immune to Hepatitis B Virus Final POSITIVE: >=11.5 mIU/mL
INDETERMINATE: 8.5-<11.5 mIU/mL
NEGATIVE: <8.5 mIU/mL Performing Location LABORATORY [place] [address] [place] [address]
--- OUTSIDE RECORDS SUMMARY | 2023-05-02 05:03 | External Medical Summary ---
Author Name Unknown Address Unknown Organization : Laboratory Report Ordering Provider Test Date Status DAVONTE HIRSCH 04/09/2023 09:31:21 Final Observation Date Value Abnormality Reference (Units ) Status Smooth muscle IgG 04/09/2023 09:31:21 <20 <2 0 (U) Final Reference Range:
<20 U: Negative
>or=20 U: Positive
Antibodies recognizing actin are the main component
of smooth muscle antibodies associated with auto-
immune liver disease. Actin antibodies are found in
approximately 75% of patients with autoimmune
hepatitis (AIH) type 1, approximately 65% of patients
with autoimmune cholangitis, approximately 30% of
patients with primary biliary cirrhosis and
approximately 2% of healthy controls. High values are
closely correlated with AIH type 1.

Test Performed at:
[facility]
[address] [facility]
[place], [place] [address]
Jef Leigh M.D., Ph.D.,Director of Laboratories Performing Location
--- OUTSIDE RECORDS SUMMARY | 2023-05-02 05:04 | External Medical Summary ---
Author Name Unknown Address Unknown Organization K01:LABORATORY [facility] - [address] [place] [address] Laboratory Report Ordering Provider Test Date Status SUSHANT JENKINS 04/05/2023 05:18:00 Final Warfarin Therapy
INR: 2 .0-3.0 conventional anticoagulation
INR: 2.5- 3.5 high intensity anticoagulation Observation Date Value Abnormality Reference (Units ) Status PT 04/05/2023 05:18:00 19.2 Above high normal 11 .6-15.2 (seconds) Final INR 04/05/2023 05:18:00 1.6 Above high normal 0. 8-1.2 Final Performing Location LABORATORY [facility] - [address] [place] [address]
--- OUTSIDE RECORDS SUMMARY | 2023-05-02 05:04 | External Medical Summary | Summary of Care ---
Author Name Unknown Organization [facility] Address [address] [place] [place] [address] Phone [phone] Care Team Providers Care Medical Laboratory Specialist Name Role Phone Marla Dominguez The DO Primary Care Provider [phone] Reason for Visit * Reason Comments Dosage Adjustment Via Phone (anticoag Cl inic) * Evaluate & Treat - Unlimited Visits (Within 3 days (urgent)) - Authorized Specialty Diagnoses / Procedures Referred By Vivi avila Referred To Contact ANTI-COAG CLINIC / Pharmacy Diagnoses Venous thrombosis of upper extremity Brianna Orozco PA-C [address] [place] [address] Referral ID Status Reason Start Date Expiration Date Visits Requested Visits Authorized [id number] Authorized Specialty Services Required 3 09/28/2023 99 99 Encounter Details Date Type Department Care Team Description 04/05/2023 Anticoagulation Pharmacy Call Center 58[address] [facility] [place] [address] [facility] 58 60 [facility] [place] [address] Venous thrombosis of upper extremity* Allergies No known active allergiesdocumented as of this encounter (statuses as of 04/05/2023) Medications Medication Sig Dispensed Refills Start Date [...] as of this encounter (statuses as of 04/05/2023) Active Problems Problem Noted Date Venous thrombosis [...] as of this encounter (statuses as of 04/05/2023) Social History Tobacco Use Types Packs/Day Years [...] of this encounter Progress Notes * Miya Tucker, [facility] - 04/05/2023 3:46 PM EDT Images from the original note were not included. Medication Therapy Disease Management - Anticoagulation Patient: Sisi Redmond | : 1950 Residential/SNF Patient Anticoagulation Encounter Patient is a resident at: [facility] -- Fax sent to number listed above detailing plan of care below. Please notify clinic with any unusual brusing or bleeding, N/V/D, medication or diet changes or anymissed or extra doses of Coumadin. Subjective Patient-Reported Symptoms: Objective Current Warfarin Dose As of 04/05/2023 Warfarin maintenance plan: No maintenance plan INR Result As of 04/05/2023 INR goal: 2.0-3.0 INR used for dosin.6 (04/05/2023) Assessment & Plan Warfarin Plan As of 04/05/2023 Full warfarin instructions: 04/05: 10 mg CONTINUE Lovenox 60mg daily until INR in range. Next INR check: 04/06/23 Repeat PT/INR in 1 day(s) Additional Dosing Information: Description On Lovenox 60mg once daily until INR therapeutic. Miya Tucker RP Clinical Pharmacist 04/05/2023, 3:47 PM documented in this encounter Plan of Treatment Upcoming Encounters Date Type Specialty Care Team Description 04/08/2023 Imaging Radiology 04/09/2023 Office Visit Gastroenterology Latoya Selby DO [address] [place] [address] Scheduled Referrals Name Type Priority Associated Diagnoses Orde r Schedule ANTI-COAGULATION REFERRAL OP Referral Within 3 days (urgent) Venous thrombosis of upper extremity Ordered: 04/01/2023 Health Maintenance Due Date Last Done Comments Pneumococcal Vaccine: 65+ Years (1 - PCV) 1956 Depression Screening 1962 Alpha-1 Antitrypsin 1968 Hepatitis C Screening 1968 O2 ASSESSMENT COMPLETED IN PAST YEAR FOR COPD 1968 Zoster Vaccines (1 of 2) 1969 Cologuard 1995 Colonoscopy 1995 Colorectal Cancer Screening 1995 Fecal Occult Blood Test 1995 Sigmoidoscopy 1995 LUNG CANCER SCREENING - USE SMARTSET 06314 2000 Hepatitis B (1 of 3 - [...] Primary documented in this encounter Care Teams Medical Laboratory Specialist Relationship Specialty Start Date End Date Jona Dominguez DO PCP - General 08/13/05 documented as of this encounter"
--- OUTSIDE RECORDS SUMMARY | 2023-05-02 05:04 | External Medical Summary | Summary of Care ---
Author Name Unknown Organization [facility] Address [address] [facility] [place] [address] Phone [phone] Care Team Providers Care Drop Hammer Mechanic Name Role Phone Marla Dominguez The DO Primary Care Provider [phone] Reason for Visit * Reason Comments Dosage Adjustment Via Phone (anticoag Cl inic) Encounter Details Date Type Department Care Team Description 04/06/2023 Anticoagulation Pharmacy Call Center 58-[address] [facility] [place] [address] [facility] 58 60 [facility] [place] [address] Venous thrombosis of upper extremity* Allergies No known active allergiesdocumented as of this encounter (statuses as of 04/06/2023) Medications Medication Sig Dispensed Refills Start Date [...] cut, crush or chew 0 01/21/2023 Active [place] Caps 1 MG Oral Capsule Take 1 [...] as of this encounter (statuses as of 04/06/2023) Active Problems Problem Noted Date Venous thrombosis [...] as of this encounter (statuses as of 04/06/2023) Social History Tobacco Use Types Packs/Day Years [...] this encounter Progress Notes * Miya Tucker RPh - 04/06/2023 4:28 PM EDT Faxes not transmitting. Called [facility] and gave verbal orders to Mely. Miya Tucker Rph, Pharm.D. Clinical Pharmacist [facility] ([facility] (formerly [facility]) [phone] 04/06/2023,4:28 PM * Miya Tucker RPh - 04/06/2023 3:16 PM EDT Medication Therapy Disease Management - Anticoagulation Patient: Sisi Redmond | : 1950 Halfway/SNF Patient Anticoagulation Encounter Patient is a resident at: [facility] -- Fax sent to number listed above detailing plan of care below. Please notify clinic with any unusual brusing or bleeding, N/V/D, medication or diet changes or anymissed or extra doses of Coumadin. Subjective Patient-Reported Symptoms: Objective Current Warfarin Dose As of 04/06/2023 Warfarin maintenance plan: No maintenance plan INR Result As of 04/06/2023 INR goal: 2.0-3.0 INR used for dosing: No new INR was available at the time of this encounter. Assessment & Plan Warfarin Plan As of 04/06/2023 Full warfarin instructions: 04/06: 5 mg CONTINUE Lovenox 60mg daily until INR therapeutic Next INR check: 04/07/2023 Repeat PT/INR in 1 day(s) Additional Dosing Information: Description On Lovenox 60mg once daily until INR therapeutic. Miya Tucker RPh Clinical Pharmacist 04/06/2023, 3:16 PM * SUKHDEV Pimentel - 04/06/2023 3:13 PM EDT Received a message from Janee, L does not go to [facility] on Tuesdays. GML visits [facility] onWednesday, Wednesday, Fridays. Pt is ronnie'd for Saturday 04/07 for follow up. Please advise. Thank you, Padmini Kamara Production Support Consultant [facility] ([facility] (Formerly [facility]) 04/06/2023, 3:14 PM * SUKHDEV Pimentel - 04/06/2023 2:46 PM EDT Called and spoke with Janee at [facility] for [facility]. She is looking into if the pt is still going to be collected today and then send a message with an update. Will continue to follow up. Thank you, Padmini Kamara Production Support Consultant [facility] ([facility]) 04/06/2023, 2:47 PM documented in this encounter Plan of Treatment Upcoming Encounters Date Type Specialty Care Team Description 04/07/[address] [facility] 58 [address] [facility] [place] [address] 04/08/2023 Imaging Radiology 04/09/2023 Office Visit Gastroenterology Latoya Selby DO [address] [place] [address] Health Maintenance Due Date Last Done Comments Pneumococcal Vaccine: 65+ Years (1 - PCV) 1956 Depression Screening 1962 Alpha-1 Antitrypsin 1968 Hepatitis C Screening 1968 O2 ASSESSMENT COMPLETED IN PAST YEAR FOR COPD 1968 Zoster Vaccines (1 of 2) 1969 Cologuard 1995 Colonoscopy 1995 Colorectal Cancer Screening 1995 Fecal Occult Blood Test 1995 Sigmoidoscopy 1995 LUNG CANCER SCREENING - USE SMARTSET 01159 2000 Hepatitis B (1 of 3 - [...] Primary documented in this encounter Care Teams Drop Hammer Mechanic Relationship Specialty Start Date End Date Jona Dominguez DO PCP - General 2/23/06 documented as of this encounter"
--- OUTSIDE RECORDS SUMMARY | 2023-05-02 05:04 | External Medical Summary | Summary of Care ---
Author Name Unknown Organization [facility] Address [address] [place] [address] Phone [phone] Care Team Providers Care Utility Engineer Name Role Phone Angelica Marla The DO Primary Care Provider [phone] Encounter Details Date Type Department Care Team Description 04/06/2023 Orders Only Lab Mobile Phlebotomy [facility] [address] [place], [place] [id number] Maximo Taylor MD [address] [place] [address] [place] [address] DVT (deep venous thrombosis) [...] Encounters Date Type Specialty Care Team Description 04/06/2023 Laboratory Laboratory Processing [address] [place] [address] Arrived 04/06/2023 Anticoagulation Pharmacy [facility] 58 60 [facility] [place] [address] 04/08/2023 Imaging Radiology 04/09/2023 Office Visit Gastroenterology Latoya Selby DO [address] [place] [address] Scheduled Orders Name Type Priority Associated Diagnoses Orde r Schedule PT INR Lab Routine DVT (deep venous thrombosis) ([facility]) Expected: 04/06/2023, Expires: 04/06/2024 INTERMEDIATE STAT COLLECTION Lab Routine DVT (deep venous thrombosis) ([facility]) Expected: 04/06/2023, Expires: 04/06/2024 Health Maintenance Due Date Last Done Comments Pneumococcal Vaccine: 65+ Years (1 - PCV) 1956 Depression Screening 1962 Alpha-1 Antitrypsin 1968 Hepatitis C Screening 1968 O2 ASSESSMENT COMPLETED IN PAST YEAR FOR COPD 1968 Zoster Vaccines (1 of 2) 1969 Cologuard 1995 Colonoscopy 1995 Colorectal Cancer Screening 1995 Fecal Occult Blood Test 1995 Sigmoidoscopy 1995 LUNG CANCER SCREENING - USE SMARTSET 03786 2000 Hepatitis B (1 of 3 - [...] extremity documented in this encounter Care Teams Utility Engineer Relationship Specialty Start Date End Date Jona Dominguez DO PCP - General 08/13/05 documented as of this encounter
--- OUTSIDE RECORDS SUMMARY | 2023-05-02 05:04 | External Medical Summary ---
Author Name Unknown Address Unknown Organization K0G:LABORATORY [facility] [address] - [address] [place] [address] Laboratory Report Ordering Provider Test Date Status SUSHANT JENKINS 04/07/2023 05:00:00 Final Warfarin Therapy
INR: 2 .0-3.0 conventional anticoagulation
INR: 2.5- 3.5 high intensity anticoagulation Observation Date Value Abnormality Reference (Units ) Status PT 04/07/2023 05:00:00 20.8 Above high normal 11 .6-15.2 (seconds) Final INR 04/07/2023 05:00:00 1.8 Above high normal 0. 8-1.2 Final Performing Location LABORATORY [facility] [address] - [address] [place] [address]
--- OUTSIDE RECORDS SUMMARY | 2023-05-02 05:04 | External Medical Summary | Summary of Care ---
Author Name Unknown Organization [facility] Address [address] [place] [facility] [place] [place] [address] Phone [phone] Care Team Providers Care Teacher Counselor Name Role Phone Marla Dominguez The DO Primary Care Provider [phone] Reason for Visit * Reason Comments Dosage Adjustment Via Phone (anticoag Cl inic) Encounter Details Date Type Department Care Team Description 04/07/2023 Anticoagulation Pharmacy Call Center 58-60 [facility] [place] [address] [facility] 58 60 [facility] [place] [address] Venous thrombosis of upper extremity* Allergies No known active allergiesdocumented as of this encounter (statuses as of 04/07/2023) Medications Medication Sig Dispensed Refills Start Date [...] cut, crush or chew 0 01/21/2023 Active [place] Caps 1 MG Oral Capsule Take [...] as of this encounter (statuses as of 04/07/2023) Active Problems Problem Noted Date Venous thrombosis [...] as of this encounter (statuses as of 04/07/2023) Social History Tobacco Use Types Packs/Day Years [...] this encounter Progress Notes * Miya Tucker, [facility] - 04/07/2023 11:01 AM EDT Images from the original note were not included. Medication Therapy Disease Management - Anticoagulation Patient: Sisi Redmond | : 1950 Halfway/SNF Patient Anticoagulation Encounter Patient is a resident at: [facility] -- Fax sent to number listed above detailing plan of care below. Please notify clinic with any unusual brusing or bleeding, N/V/D, medication or diet changes or anymissed or extra doses of Coumadin. Subjective Patient-Reported Symptoms: Objective Current Warfarin Dose As of 04/07/2023 Warfarin maintenance plan: No maintenance plan INR Result As of 04/07/2023 INR goal: 2.0-3.0 INR used for dosin.8 (04/07/2023) Assessment & Plan Warfarin Plan As of 04/07/2023 Full warfarin instructions: 04/07: 10 mg; 04/08: 7.5 mg CONTINUE Lovenox 60mg daily until INR therapeutic Next INR check: 04/09/2023 Repeat PT/INR in 2 day(s) Additional Dosing Information: Description On Lovenox 60mg once daily until INR therapeutic. Miya Tucker RPh Clinical Pharmacist 04/07/2023, 11:01 AM documented in this encounter Plan of Treatment Upcoming Encounters Date Type Specialty Care Team Description 04/08/2023 Imaging Radiology 04/09/2023 Office Visit Gastroenterology Latoya Selby DO [address] [place] [address] Health Maintenance Due Date Last Done Comments Pneumococcal Vaccine: 65+ Years (1 - PCV) 1956 Depression Screening 1962 Alpha-1 Antitrypsin 1968 Hepatitis C Screening 1968 O2 ASSESSMENT COMPLETED IN PAST YEAR FOR COPD 1968 Zoster Vaccines (1 of 2) 1969 Cologuard 1995 Colonoscopy 1995 Colorectal Cancer Screening 1995 Fecal Occult Blood Test 1995 Sigmoidoscopy 1995 LUNG CANCER SCREENING - USE SMARTSET 86318 2000 Hepatitis B (1 of 3 - [...] Primary documented in this encounter Care Teams Teacher Counselor Relationship Specialty Start Date End Date Jona Dominguez DO PCP - General 08/13/05 documented as of this encounter"
--- OUTSIDE RECORDS SUMMARY | 2023-05-02 05:04 | External Medical Summary | Summary of Care ---
Author Name Unknown Organization [facility] Address [address] [facility] [place] [address] Phone [phone] Care Team Providers Care Lead Shop Operator Name Role Phone Marla Dominguez The DO Primary Care Provider [phone] Reason for Visit * Reason Comments Dosage Adjustment Via Phone (anticoag Cl inic) Encounter Details Date Type Department Care Team Description 04/06/2023 Anticoagulation Pharmacy Call Center 58-60 [facility] [place] [address] [facility] 58 60 [facility] [place] [address] Venous thrombosis of upper extremity* Allergies No [...] cut, crush or chew 0 01/21/2023 Active [place] Caps 1 MG Oral Capsule Take 1 [...] this encounter Progress Notes * Miya Tucker, [facility] - 04/06/2023 3:16 PM EDT Medication Therapy Disease Management - Anticoagulation Patient: Sisi Redmond | : 1950 Half-Way/SNF Patient Anticoagulation Encounter Patient is a resident at: [facility] -- Fax sent to number listed above [...] from Janee, L does not go to [facility] on Tuesdays. GML visits [facility] onWednesday, Wednesday, Fridays. Pt is ronnie'd for Saturday 04/07 for follow up. Please advise. Thank you, Padmini Kamara Clinical Analyst [facility] ([facility]) (Formerly Telepharmacy) 04/06/2023, 3:14 PM * SUKHDEV Pimentel - 04/06/2023 2:46 PM EDT Called and spoke with Janee at Client Services for [facility]. She is looking into if the pt is still going to be collected today and then send a message with an update. Will continue to follow up. Thank you, Padmini Kamara Clinical Analyst [facility] ([facility]) (Formerly Telepharmacy) 04/06/2023, 2:47 PM documented in this encounter Plan of Treatment Upcoming Encounters Date Type Specialty Care Team Description 04/07/2023 Anticoagulation Pharmacy [facility] 58 60 [facility] [place] [address] 04/08/2023 Imaging Radiology 04/09/2023 Office Visit Gastroenterology Latoya Selby DO [address] [place] [address] Health Maintenance Due Date Last Done Comments Pneumococcal Vaccine: 65+ Years (1 - PCV) 1956 Depression Screening 1962 Alpha-1 Antitrypsin 1968 Hepatitis C Screening 1968 O2 ASSESSMENT COMPLETED IN PAST YEAR FOR COPD 1968 Zoster Vaccines (1 of 2) 1969 Cologuard 1995 Colonoscopy 1995 Colorectal Cancer Screening 1995 Fecal Occult Blood Test 1995 Sigmoidoscopy 1995 LUNG CANCER SCREENING - USE SMARTSET 75092 2000 Hepatitis B (1 of 3 - [...] Primary documented in this encounter Care Teams Lead Shop Operator Relationship Specialty Start Date End Date Jona Dominguez DO PCP - General 08/13/05 documented as of this encounter"
--- OUTSIDE RECORDS SUMMARY | 2023-05-02 05:04 | External Medical Summary | Summary of Care ---
Author Name Unknown Organization [facility] Address [address] [place] [address] Phone [phone] Care Team Providers Care Inter Fold Roll Cutter Name Role Phone Avtar Dominguez Primary Care Provider [phone] Reason for Visit * Reason Onset Date Comments Fpc Visit 04/01/2023 Encounter Details Date Type Department Care Team Description 03/31/2023 Fpc Visit [facility] [address] [place] [address] Brianna Orozco PA-C [address] [place] [address] Ascites due to alcoholic cirrhosis (HCC)*; History of abdominal paracentesis; ESRD on dialysis (HCC); 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 behavioral disturbance, psychotic disturbance, mood disturbance, or anxiety (HCC); Injury of left wrist, subsequent encounter Allergies No known active allergiesdocumented as of this encounter (statuses as of 04/02/2023) Medications Medication Sig Dispensed Refills Start Date [...] cut, crush or chew 0 01/21/2023 Active [place] Caps 1 MG Oral Capsule Take 1 [...] as of this encounter (statuses as of 04/02/2023) Active Problems Problem Noted Date Venous thrombosis [...] as of this encounter (statuses as of 04/02/2023) Social History Tobacco Use Types Packs/Day Years [...] Progress Notes * Brianna Orozco PA-C - 04/01/2023 7:21 PM EDT Name: Sisi Redmond Date of :1950 TRANSITION EVENT: Type: Non-applicable Date: March 31 Code Status: Full Code This note pertains to care provided at [facility]. Please see facility medical record for original note. This note is not to be edited or addended in [employer]. Editing or addending needs to occur in the facilities medical record. Subjective: Sisi Redmond is a 72 year old male. Patient being seen for several issues Chief Complaint Patient presents with Fpc Visit HPI: I was asked to assess pt for several issues Staff wanted assessment of left fistula site for dialysis. Some redness and warmth. No pain in area. No chills or fever. Pt receives dialysis three days weekly. Pt fell and injured his left wrist this week. 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 Having significant pain in wrist. RADAH is currently in immobilizer splint. No numbness in fingers. OT is in process of assessing pt for thumb spica splint. Pt is s/p paracentesis times 3 over past three to weeks. Receives outpatient paracentesis with up to 5 liters of fluid removed. We are in process of getting pt established with hepatology for liver cirrhosis. Ascites continues to accumulate. Vital signs stable. No abdominal pain. Labs done at dialysis Patient Active Problem List Diagnosis Code FX [...] SIMPLE 2013 MRI compatible brain aneurysm clip [facility] [place] COLONOSCOPY CYSTOSCOPY/BIOPSY 03/29/2023 cystoscopy, fulgaration of bladder lesion. 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 [...] Smoking status: Former Packs/day: 1.00 Years: 55.00 Pack years: 55.00 Types: Cigarettes Start date: 1966 Quit date: 2021 Years since quittin.7 Smokeless tobacco: Never Substance and Sexual Activity Alcohol use: Not Currently Alcohol/week: 72.0 standard drinks Types: 72 12 oz of beer per [...] on file Review of patient's allergies indicates: No Known Allergies I have reviewed medications and allergies. Please refer to MAR in the facility's medical record forthe most up-to-date medication list as this cannot be edited in [employer]. Review of Systems: Constitutional ROS: + change in weight, +weakness, + fatigue and No fevers, sweats, or chills Nose ROS: No nasal stuffiness and No significant epistaxis Mouth/Throat ROS: No thrush or No sore throat Neck ROS: No lumps or masses, No swollen glands, No recent swelling in thyroid area and No significant pain in neck Pulmonary ROS: +COPD Cardiovascular ROS: No chest pain, No shortness of breath, No edema, No palpitations and No syncope Gastrointestinal ROS: see HPI Musculoskeletal/Extremities ROS: see HPI Skin/Integumentary ROS: No rash and No itching Neurologic ROS: No headaches and No seizures Psychiatric ROS: No depression, No anxiety and +PTSD Sleep: No sleep disorders OBJECTIVE: PHYSICALEXAM: I reviewed the most recent facilities vitals. General: alert, no distress, well nourished and well developed Eye Exam: Conjunctiva are pink and non-injected, sclera clear Nose: no mucosal erythema, no mucosal edema, no purulent discharge Oropharynx: no exudate, no erythema, lips, buccal mucosa, and tongue normal and mucous membranes are moist Neck: supple, no adenopathy, non-tender, neck veins flat, trachea midline Heart: regular rate & rhythm, no murmurs and no gallops Lungs: normal respiratory rate and rhythm, no chest wall tenderness, lungs rhonchi audible Abdomen: abdomen soft, non-tender, normal bowel sounds and no masses or organomegaly Protuberant ascites noted Extremities: 1+edema, no clubbing, no cyanosis. Mild erythema along fistula site. No drainage, fluctuance Skin: skin color, texture, turgor are normal, no rashes or significant lesions ASSESSMENT: Ascites due to alcoholic cirrhosis (HCC) (Primary) Continue to monitor Continue with outpatient paracenteses Continue with establising with hepatology History of abdominal paracentesis Continue to monitor Continue with outpatient paracenteses Continue with establising with hepatology ESRD on dialysis (HCC) Stabe Continue with dialysis three days weekly [facility] fistula site 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 behavioral disturbance, psychotic disturbance, mood disturbance, or anxiety (HCC) Stable mood and mentation Continue with Trazodone 50mg HS Injury of left wrist, subsequent encounter No fx noted on Xray Concern for fx scaphoid Will obtain CT scan of wrist PLAN: Continue present medication(s):as ordered. Nursing Home Home Treatment Given: as above Electronically signed by: Brianna Orozco PA-C Over 35 minutes were spent in this visit more than half the time was spent counselling or coordinating care. documented in this encounter Plan of Treatment Upcoming Encounters Date Type Specialty Care Team Description 04/05/2023 Anticoagulation Pharmacy [facility] 58 60 [facility] [place] [address] 04/08/2023 Imaging Radiology 04/09/2023 Office Visit Gastroenterology Latoya Selby DO [address] [place] [address] Health Maintenance Due Date Last Done Comments Pneumococcal Vaccine: 65+ Years (1 - PCV) 1956 Depression Screening 1962 Alpha-1 Antitrypsin 1968 Hepatitis C Screening 1968 O2 ASSESSMENT COMPLETED IN PAST YEAR FOR COPD 1968 Zoster Vaccines (1 of 2) 1969 Cologuard 1995 Colonoscopy 1995 Colorectal Cancer Screening 1995 Fecal Occult Blood Test 1995 Sigmoidoscopy 1995 LUNG CANCER SCREENING - USE SMARTSET 58917 2000 Hepatitis B (1 of 3 - [...] Ascites due to alcoholic cirrhosis (HCC)- Primary History of abdominal paracentesis ESRD on dialysis (HCC) End stage renal disease 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 behavioral disturbance, psychotic disturbance, mood disturbance, or anxiety (HCC) Injury of left wrist, subsequent encounter documented in this encounter Care Teams Inter Fold Roll Cutter Relationship Specialty Start Date End Date Jona Dominguez DO PCP - General 08/13/05 documented as of this encounter
--- OUTSIDE RECORDS SUMMARY | 2023-05-02 05:04 | External Medical Summary | Summary of Care ---
Author Name Unknown Organization [facility] Address [address] [place] [address] Phone [phone] Care Team Providers Care Graphic Technician Name Role Phone Angelica Marla The DO Primary Care Provider [phone] Encounter Details Date Type Department Care Team Description 04/05/2023 Orders Only Lab Mobile Phlebotomy [facility] [place] [address] [place], [place] [id number] Maximo Taylor MD [address] [place] [address] [place] [address] DVT (deep venous thrombosis) ([facility]LY [facility])* Allergies No known active allergiesdocumented as of [...] cut, crush or chew 0 01/21/2023 Active [place] Caps 1 MG Oral Capsule Take 1 [...] Date Type Specialty Care Team Description 04/05/2023 Laboratory Laboratory Processing [address] [place] [address] Arrived 04/05/2023 Anticoagulation Pharmacy [facility] 58 60 [facility] [place] [address] 04/08/2023 Imaging Radiology 04/09/2023 Office Visit Gastroenterology Latoya Selby DO [address] [place] [address] Scheduled Orders Name Type Priority Associated Diagnoses Orde r Schedule PT INR Lab Routine DVT (deep venous thrombosis) (HCC) Expected: 04/05/2023, Expires: 04/05/2024 Health Maintenance Due Date Last Done Comments Pneumococcal Vaccine: 65+ Years (1 - PCV) 1956 Depression Screening 1962 Alpha-1 Antitrypsin 1968 Hepatitis C Screening 1968 O2 ASSESSMENT COMPLETED IN PAST YEAR FOR COPD 1968 Zoster Vaccines (1 of 2) 1969 Cologuard 1995 Colonoscopy 1995 Colorectal Cancer Screening 1995 Fecal Occult Blood Test 1995 Sigmoidoscopy 1995 LUNG CANCER SCREENING - USE SMARTSET 73458 2000 Hepatitis B (1 of 3 - [...] extremity documented in this encounter Care Teams Graphic Technician Relationship Specialty Start Date End Date Jona Dominguez DO PCP - General 08/13/05 documented as of this encounter
--- OUTSIDE RECORDS SUMMARY | 2023-05-02 05:05 | External Medical Summary | Summary of Care ---
Author Name Unknown Organization [facility] [address] [facility] [address] Phone [phone] Care Team Providers Care Warehouse Packer Name Role Phone Marla Dominguez The DO Primary Care Provider [phone] Encounter Details Date Type Department Care Team Description 04/01/2023 Telephone Pharmacy Call Center [address] [facility] [place] [address] [facility] 58 60 [facility] [place] [address] Allergies No known active allergiesdocumented as of this encounter (statuses as of 04/01/2023) Medications Medication Sig Dispensed Refills Start Date [...] cut, crush or chew 0 01/21/2023 Active [place] Caps 1 MG Oral Capsule Take 1 [...] as of this encounter (statuses as of 04/01/2023) Active Problems Problem Noted Date Venous thrombosis [...] as of this encounter (statuses as of 04/01/2023) Social History Tobacco Use Types Packs/Day Years [...] Telephone Encounter - Miya Tucker RPh - 04/01/2023 4:05 PM EDT Referral received from [facility] for new start [facility] pt with DVT. [facility] will send orders. Miya Tucker Rph, Pharm.D. Clinical Pharmacist Central[facility] Clinical Pharmacy Services ([facility]PS) (formerly Telepharmacy) [phone] 04/01/2023,4:05 PM * Telephone Encounter - SUKHDEV Pimentel Tech - 04/01/2023 4:00 PM EDT Diagnosis: Venous thrombosis of upper extremity [I82.609] Comments Indication forAnticoagulation: Diagnosis: DVT left subclavian vein Relevant History: none, Hypertension, Liver Disease, and End stage renal disease on dialysis Initiation date of anticoagulation: today. Expected duration of Anticoagulation therapy: Target INR range (indicate desired range): Treatment of DVT 2.0 - 3.0 Referral for Low Molecular Weight Therapy: N/A Minimum frequency patient should be seen in person for medication management: as appropriate per clinical condition and patient status By my signature, I understand that my patient Sisi Redmond will have his medication therapy managed by the [facility] Medication Therapy Disease Management [facility] ([facility]) per established policies, procedures, and protocols. I also certify that this referral may serve as an initiation of service for the management of drug therapy in the above noted patient. [facility] providers will be responsible for scheduling patient visits, obtaining appropriate laboratory studies, and adjusting medication management therapy per patient's need, in addition to those roles spelled out in the clinic policy, procedures, and drug management protocols. I understand that the service provided by the [facility] Clinic is voluntary and have informed patient that they can refuse the service at their discretion. I am aware that the [facility] Clinic will provide me with a copy of the patient encounter via my [employer]. I authorize the [facility] Clinic to carry out these activities on my behalf. I consider this program to be a necessary part of the patient's medical care. Brianna Orozco PA-C Order Specific Questions Referral Priority Within 3 days (urgent) Where should this appointment be scheduled? [facility] documented in this encounter Plan of Treatment Upcoming Encounters Date Type Specialty Care Team Description 04/01/2023 Anticoagulation Pharmacy [facility] 58 60 [facility] [place] [address] Venous thrombosis of upper extremity* 04/08/2023 Imaging Radiology 04/09/2023 Office Visit Gastroenterology Latoya Selby DO [address] [place] [address] Health Maintenance Due Date Last Done Comments Pneumococcal Vaccine: 65+ Years (1 - PCV) 1956 Depression Screening 1962 Alpha-1 Antitrypsin 1968 Hepatitis C Screening 1968 O2 ASSESSMENT COMPLETED IN PAST YEAR FOR COPD 1968 Zoster Vaccines (1 of 2) 1969 Cologuard 1995 Colonoscopy 1995 Colorectal Cancer Screening 1995 Fecal Occult Blood Test 1995 Sigmoidoscopy 1995 LUNG CANCER SCREENING - USE SMARTSET 09823 2000 Hepatitis B (1 of 3 - [...] filedocumented as of this encounter Care Teams Warehouse Packer Relationship Specialty Start Date End Date Jona Dominguez DO PCP - General 08/13/05 documented as of this encounter
--- OUTSIDE RECORDS SUMMARY | 2023-05-02 05:05 | External Medical Summary | Summary of Care ---
Author Name Unknown Organization [facility] Address [address] [place] [address] Phone [phone] Care Team Providers Care Director Institution Name Role Phone Marla Dominguez The DO Primary Care Provider [phone] Reason for Referral * Evaluate & Treat - Unlimited Visits (Within 3 days (urgent)) - Authorized Specialty Diagnoses / Procedures Referred By Vivi avila Referred To Contact [facility] / Pharmacy Diagnoses Venous thrombosis of upper extremity Brianna Orozco PA-C [address] [place] [address] Referral ID Status Reason Start Date Expiration Date Visits Requested Visits Authorized [id number] Authorized Specialty Services Required 3 09/28/2023 99 99 Question Answer Referral Priority Within 3 days (urgent) Where should this appointment be scheduled? [facility] Comments Indication forAnticoagulation: Diagnosis: DVT left subclavian [...] have his medication therapy managed by the [facility] Medication Therapy Disease Management Clinic ([facility]) per established policies, procedures, and protocols. I also certify that this referral may serve as an initiation of service for the management of drug therapy in the above noted patient. [facility] providers will be responsible for scheduling patient visits, obtaining appropriate laboratory studies, and adjusting medication management therapy per patient's need, in addition to those roles spelled out in the clinic policy, procedures, and drug management protocols. I understand that the service provided by the [facility] is voluntary and have informed patient that they can refuse the service at their discretion. I am aware that the [facility] Clinic will provide me with a copy of the patient encounter via my [employer]. I authorize the [facility] Clinic to carry out these activities on my behalf. I consider this program to be a necessary part of the patient's medical care. Brianna Orozco PA-C Encounter Details Date Type Department Care Team Description 04/01/2023 Orders Only [facility] [address] [place] [address] Brianna Orozco PA-C [address] [place] [address] Venous thrombosis of upper extremity* Allergies No [...] Specialty Care Team Description 04/01/2023 Anticoagulation Pharmacy [facility] 58 60 [facility] [place] [address] 04/08/2023 Imaging Radiology 04/09/2023 Office Visit Gastroenterology Latoya Selby DO [address] [place] [address] Scheduled Referrals Name Type Priority Associated Diagnoses [...] 1995 LUNG CANCER SCREENING - USE SMARTSET 48333 2000 Hepatitis B (1 of 3 - [...] Diagnosis Venous thrombosis of upper extremity- Primary Venous thrombosis of upper extremity- Primary documented in this encounter Care Teams Director Institution Relationship Specialty Start Date End Date Jona Dominguez DO PCP - General 08/13/05 documented as of this encounter
--- OUTSIDE RECORDS SUMMARY | 2023-05-02 05:05 | External Medical Summary | Summary of Care ---
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); Left wrist injury, subsequent encounter; History of abdominal paracentesis; 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 behavioral disturbance, psychotic disturbance, mood disturbance, or anxiety (HCC) Allergies No known active allergiesdocumented as of this encounter (statuses as of 03/30/2023) Medications Medication Sig Dispensed Refills Start Date [...] as of this encounter (statuses as of 03/30/2023) Active Problems Problem Noted Date Transitional cell carcinoma determined b y biopsy [...] as of this encounter (statuses as of 03/30/2023) Social History Tobacco Use Types Packs/Day Years [...] Progress Notes * Brianna Orozco PA-C - 03/30/2023 1:14 PM EDT Name: Sisi Redmond Date of :1950 TRANSITION EVENT: Type: ED Follow Up Date: March 30 Code Status: Full Code This note pertains to care provided at [facility]. Please see facility medical record for original note. This note is not to be edited or addended in [employer]. Editing or addending needs to occur in the facilities medical record. Subjective: Sisi Redmond is a 72 year old male. Patient being seen for ED followup Chief Complaint Patient presents with Penitentiary Visit HPI: Pt was transferred to [facility] ED from SNF facility after SNF received call from dialysis center stating that pt should have ED evaluation for inpatient admission due to flluid overload, increased edema and hypoxia. When patient returned from dialysis, he appeared stable. He was slighlty dyspneic with O2 saturation mid to upper 80's% which is not completely unusual for pt due to his COPD. He possibly had a bit more edema in his LE's than baseline. Lungs did have some crackles in bases. Vital signs stable. Daughter, ELDON, wanted pt sent to ED per dialysis recommendations. Pt had bladder mass fulgarated by urology on 03/29/23 which was determined to be TCC of bladder. Pt also fell in the shower a day or so before injurying his left wrist. Developed pain and swelling. Xray of left wrist was ordered in facility yesteday morning but the results were not back yet. In the ED,,pt was assessed and found to be stable. Xray of wrist showed advanced DJD of first CMC joint with cysts in the base with calcified vessels between thumb and index finger along proximal carpal row. No fx noted. Pt's wrist was splinted and sent back to SNF. He remains stable currently. Still with ascites. He just had paracentesis of five liters last week. We are waiting to get pt established with GI which is coming up 04/05/23. Labs done at dialysis center. Patient Active Problem List Diagnosis Code FX CORONOID PROC ULNA-CL S52.043A DISLOCAT ELBOW NEC-CLOSE S53.196A ESRD on dialysis ([facility]) N18.6, Z99.2 HTN, goal below 130/80 I10 Iron deficiency anemia D50.9 Slow transit constipation K59.01 PTSD (post-traumatic stress disorder) F43.10 COPD, moderate ([facility]) J44.9 Vitamin B1 deficiency E51.9 Vitamin D deficiency E55.9 Dry skin dermatitis L85.3 Secondary hyperparathyroidism of renal origin ([facility]) N25.81 Polycystic renal disease Q61.3 PAF (paroxysmal atrial fibrillation) ([facility]) I48.0 Primary insomnia F51.01 Pruritic condition L29.9 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 behavioral disturbance, psychotic disturbance, mood disturbance, or anxiety ([facility]) G30.1, F02.A0 BPH without obstruction/lower urinary tract [...] determined by biopsy of bladder (HCC) C67.9 No past medical history on file. Past Surgical History: Procedure Laterality Date BRAIN ANEURYSM REPR, SIMPLE 2012 MRI compatible brain aneurysm clip R [facility] COLONOSCOPY CYSTOSCOPY/BIOPSY 03/29/2023 cystoscopy, fulgaration of bladder lesion. Dr Reyna, [facility] INFORMATION removal of benign neoplasm nose FL CREAT AV FISTULA,AUTOGENOUS GRAFT Left 03/23/2023 Dr. [...] list as this cannot be edited in [employer]. Review of Systems: Constitutional ROS: fluctuating change in weight, No change in weakness, No change in fatigue and No fevers, sweats, or chills Nose ROS: No nasal stuffiness and No significant epistaxis Mouth/Throat ROS: No thrush or No sore throat Neck ROS: No lumps or masses, No swollen glands, No recent swelling in thyroid area and No significant pain in neck Pulmonary ROS:see HPI Cardiovascular ROSsee HPI Gastrointestinal ROS: No abdominal pain, No change in bowel habits, No significant change in appetite, No nausea, vomiting, diarrhea, or constipation and No dysphagia + ascites Musculoskeletal/Extremities ROS: see HPI Skin/Integumentary ROS: No [...] and rhythm, no chest wall tenderness, lungs decreased BS in bases. Few crackles Abdomen: abdomen soft, non-tender, normal bowel sounds and no masses or organomegaly + protuberant with ascites Extremities: 1+ edema, no clubbing, no cyanosis left hand in shaw and splint. Neuro Exam: alert with fluent speech, no focal motor/sensory deficits Skin: skin color, texture, turgor are normal, no rashes or significant lesions ASSESSMENT: ESRD on dialysis (HCC) (Primary) Continue with dialysis as directed Ascites due to alcoholic cirrhosis (HCC) Continues to have outpatient paracenteses. 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 Follow with urology as directed Left wrist injury, subsequent encounter Reviewed [facility] ED notes Need to be concerned for possible navicular fx. PT/OT will assess May need CT scan to rule out fx Will check uric acid level History of abdominal paracentesis Will be establishing with GI 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 behavioral disturbance, psychotic disturbance, mood disturbance, or anxiety (HCC) Stable mood and mentation Continue Trazodone 50mg HS PLAN: Continue present medication(s):as ordered. [facility] Home Treatment Given: as above Electronically signed by: Brianna Orozco PA-C Over 45 minutes were spent in this visit more than half the time was spent counselling or coordinating care. documented in this encounter Plan of Treatment Upcoming Encounters Date Type Specialty Care Team Description 07/29/2023 Office Visit Gastroenterology Latoya Selby DO [address] [place] [address] Health Maintenance Due Date Last Done Comments Pneumococcal Vaccine: 65+ Years (1 - PCV) 1956 Depression Screening 1962 Alpha-1 Antitrypsin 1968 Hepatitis C Screening 1968 O2 ASSESSMENT COMPLETED IN PAST YEAR FOR COPD 1968 Zoster Vaccines (1 of 2) 1969 Cologuard 1995 Colonoscopy 1995 Colorectal Cancer Screening 1995 Fecal Occult Blood Test 1995 Sigmoidoscopy 1995 LUNG CANCER SCREENING - USE SMARTSET 76480 2000 Hepatitis B (1 of 3 - [...] as of this encounter Visit Diagnoses Diagnosis ESRD on dialysis (HCC)- Primary End stage renal disease Ascites due to alcoholic cirrhosis (HCC) 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) Left wrist injury, subsequent encounter History of abdominal paracentesis 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 behavioral disturbance, psychotic disturbance, mood disturbance, or anxiety (HCC) documented in this encounter Care Teams Bonding Equipment Operator Relationship Specialty Start Date End Date Jona Dominguez DO PCP - General 08/13/05 documented as of this encounter
--- OUTSIDE RECORDS SUMMARY | 2023-05-02 05:05 | External Medical Summary | Continuity Of Care Document ---
Author Name Unknown Address [address] [place] [address] Organization [facility] ( ) Care Team Providers Care Anesthetic Assistant Name Role Phone Maximo Taylro Primary Care Provider [phone] Problems Code Description Start Date End Date Status U07.1 COVID-19 02/25/2023 03/08/2023 Completed R10.9 Unspecified abdominal pain 02/25/2023 Completed J44.9 Chronic obstructive pulmonary disease, unspecified 02/25/2023 03/08/2023 Completed I10. Essential (primary) hypertension 02/25/2023 Completed D49.4 Neoplasm of unspecified behavior of bladder 12/202203/08/2023 Completed D64.9 Anemia, unspecified 02/25/2023 03/08/2023 Compl eted F43.10 Post-traumatic stress disorder, unspecified 12/202203/08/2023 Completed R26.9 Unspecified abnormal ities of gait and mobility 12/10/2022 03/08/2023 Completed G93.41 Metabolic encephalopathy 12/10/2022 03/08/2023 Completed W19.XXXA Unspecified fall, initial encounter 12/10/2022 03/08/2023 Completed I48.91 Unspecified atrial fibrillation 12/10/202202/19 Completed R18.8 Other ascites 12/10/2022 03/08/2023 Completed E87.70 Fluid overload, unspecified 12/10/2022 03/08/20 Completed M25.539 Pain in unspecified wrist 12/10/2022 03/08/2023 Completed J96.01 Acute respiratory failure with hypoxia 12/11/19 23 03/08/2023 Completed G30.9 Alzheimer's disease, unspecified 12/10/2022 Completed R00.1 Bradycardia, unspecified 12/10/2022 03/08/2023 Completed K57.90 Diverticulosis of in testine, part unspecified, without perforation or abscess without bleeding 12/10/2022 03/08/2023 Completed M10.9 Gout, unspecified 12/10/2022 03/08/2023 Complet ed M54.50 Low back pain, unspecified 12/10/2022 Completed 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 12/10/2022 03/08/2023 Completed E21.1 Secondary hyperparat hyroidism, not elsewhere classified 12/10/2022 03/08/2023 Completed G40.919 Epilepsy, unspecifie d, intractable, without status epilepticus 12/10/2022 03/08/2023 Completed R25.1 Tremor, unspecified 12/10/2022 03/08/2023 Compl eted E55.9 Vitamin D deficiency, unspecified 12/10/2022 Completed N18.6 End stage renal disease 02/25/2023 A ctive R26.81 Unsteadiness on feet 12/16/2022 03/08/2023 Comp leted R48.8 Other symbolic dysfunctions 12/16/2022 03/08/20 Completed R13.11 Dysphagia, oral phase 12/16/2022 03/08/2023 Com pleted M62.81 Muscle weakness (generalized) 12/16/20222022 Completed Z74.1 Need for assistance with personal care 12/17/19 23 03/08/2023 Completed R26.89 Other abnormalities of gait and mobility 202203/08/2023 Completed R53.1 Weakness 12/16/2022 03/08/2023 Completed U07.1 COVID-19 02/25/2023 03/08/2023 Completed R26.9 Unspecified abnormal ities of gait and mobility 12/10/2022 03/08/2023 Completed VITAL SIGNS Date Time Diastolic blood pressure Systolic blood pressure Body height Body weight Temperature SpO2 Blood Sugar Pulse Respirations 66464 914 05238 0 79.00 mm[Hg] - Sitting 162.00 mm[Hg] - Sitting 97.40 Ear 93.00 % 81.00/ min 4 95152 8 180.00 NI 915 37055 0 79.00 mm[Hg] - Sitting 114.00 mm[Hg] - Sitting 97.80 Ear 92.00 % 81.00/ min 915 34772 3 79.00 mm[Hg] - Sitting 116.00 mm[Hg] - Sitting 97.20 Ear 90.00 % 87.00/ min 93483 0 96.00 % 12046 9 64.00 mm[Hg] - Lying Down 127.00 mm[Hg] - Lying Down 98.20 Ear 84.00/ min 6 40359 2 87.00 mm[Hg] - Sitting 168.00 mm[Hg] - Sitting 97.80 Oral 92.00 % 86.00/ min 94064 5 67.00 mm[Hg] - Sitting 147.00 mm[Hg] - Sitting 97.30 Ear 91.00 % 87.00/ min 80023 5 96.00 % 69958 8 76.00 mm[Hg] - Sitting 166.00 mm[Hg] - Sitting 97.60 Ear 90.00 % 76.00/ min 917 18592 0 74.00 mm[Hg] - Sitting 141.00 mm[Hg] - Sitting 97.60 X-Other 93.00 % 80.00/ min 919 58980 4 74.00 mm[Hg] - Sitting 166.00 mm[Hg] - Sitting 98.40 Oral 93.00 % 80.00/ min 9 25991 3 156.00 NI 49201 6 79.00 mm[Hg] - Sitting 154.00 mm[Hg] - Sitting 97.40 Ear 90.00 % 76.00/ min 920 88133 1 172.20 NI 920 22833 5 920 01612 3 79.00 mm[Hg] - Sitting 154.00 mm[Hg] - Sitting 97.40 Oral 76.00/ min 18.00/min 1 85911 6 75952 921 74462 1 1 75293 6 163.00 NI 88263 9 56.00 mm[Hg] - Sitting 172.00 mm[Hg] - Sitting 97.60 Oral 92.00 % 84.00/ min 921 20579 0 163.00 NI 921 98009 5 56.00 mm[Hg] - Sitting 172.00 mm[Hg] - Sitting 97.60 Ear 84.00/ min 18.00/min 921 09476 0 56.00 mm[Hg] - Sitting 172.00 mm[Hg] - Sitting 97.60 Oral 84.00/ min 18.00/min 922 14206 0 71.00 mm[Hg] - Sitting 108.00 mm[Hg] - Sitting 97.80 Ear 90.00 % 88.00/ min 923 04904 3 167.00 NI 928 17273 0 71.00 mm[Hg] - Sitting 108.00 mm[Hg] - Sitting 167.00 NI 97.80 Oral 88.00/ min 928 64663 8 167.00 NI 929 96848 5 173.00 NI 005 09234 2 168.00 NI 007 15512 5 169.00 NI 010 55120 3 95.00 mm[Hg] - Sitting 105.00 mm[Hg] - Sitting 98.10 Ear 91.00 % 85.00/ min 010 45935 9 65.00 mm[Hg] - Sitting 105.00 mm[Hg] - Sitting 011 33978 1 181.00 NI 012 54534 2 181.00 NI Immunizations Vaccine Date Status COVID-19 09/11/2020 Completed COVID-19 10/08/2020 Completed COVID-19 12/16/2022 Completed Influenza 03/21/2022 Completed (PCV13)Pneumococcal 04/19/2017 Completed (PPSV23)Pneumococcal 02/08/2019 Completed Shingles 10/02/2021 Completed Tetanus 04/07/2011 Completed H1N1 08/07/2009 Completed Shingles 2 04/10/2022 Completed
--- OUTSIDE RECORDS SUMMARY | 2023-05-02 05:05 | External Medical Summary ---
Author Name Unknown Address Unknown Organization K01:[facility] [place] [address] [place] [address] Laboratory Report Ordering Provider Test Date Status SUSHANT JENKINS 03/31/2023 05:23:00 Final Observation Date Value Abnormality Reference (Units ) Status Uric Acid 03/31/2023 05:23:00 4.1 3.4-7.0 (m g/dL) Final Performing Location [facility] - [address] [place] [address]
--- OUTSIDE RECORDS SUMMARY | 2023-05-02 05:05 | External Medical Summary | Summary of Care ---
Author Name Unknown Organization [facility] Address [address] [facility] [address] Phone [phone] Care Team Providers Care Clinical Pharmacologist Name Role Phone Marla Dominguez The DO Primary Care Provider [phone] Encounter Details Date Type Department Care Team Description 04/01/2023 Telephone Pharmacy Call Center [address] [place] [address] [facility] [address] [facility] [place] [address] Allergies No known active allergiesdocumented as of [...] cut, crush or chew 0 01/21/2023 Active [place] Caps 1 MG Oral Capsule Take 1 [...] 04/01/2023 4:05 PM EDT Referral received from [facility] for new start [facility] pt with DVT. [facility] will send orders. Miya Tucker Rph, Pharm.D. Clinical Pharmacist [facility] ([facility]) (formerly Telepharmacy) [phone] 04/01/2023,4:05 PM * Telephone Encounter - SUKHDEV [...] have his medication therapy managed by the [facility] ([facility]) per established policies, procedures, and protocols. I also certify that this referral may serve as an initiation of service for the management of drug therapy in the above noted patient. [facility] providers will be responsible for scheduling patient visits, obtaining appropriate laboratory studies, and adjusting medication management therapy per patient's need, in addition to those roles spelled out in the clinic policy, procedures, and drug management protocols. I understand that the service provided by the [facility] Clinic is voluntary and have informed patient that they can refuse the service at their discretion. I am aware that the [facility] will provide me with a copy of the patient encounter via my [employer]. I authorize the [facility] to carry out these activities on my behalf. I consider this program to be a necessary part of the patient's medical care. Brianna Orozco PA-C Order Specific Questions Referral Priority Within 3 days (urgent) Where should this appointment be scheduled? [place] documented in this encounter Plan of Treatment Upcoming Encounters Date Type Specialty Care Team Description 04/01/2023 Anticoagulation Pharmacy [facility] [address] [facility] [place] [address] Venous thrombosis of upper extremity* 04/08/2023 Imaging Radiology 04/09/2023 Office Visit Gastroenterology Latoya eSlby DO [address] [place] [address] Health Maintenance Due Date Last Done Comments Pneumococcal Vaccine: 65+ Years (1 - PCV) 1956 Depression Screening 1962 Alpha-1 Antitrypsin 1968 Hepatitis C Screening 1968 O2 ASSESSMENT COMPLETED IN PAST YEAR FOR COPD 1968 Zoster Vaccines (1 of 2) 1969 Cologuard 1995 Colonoscopy 1995 Colorectal Cancer Screening 1995 Fecal Occult Blood Test 1995 Sigmoidoscopy 1995 LUNG CANCER SCREENING - USE SMARTSET 61066 2000 Hepatitis B (1 of 3 - [...] filedocumented as of this encounter Care Teams Clinical Pharmacologist Relationship Specialty Start Date End Date Jona Dominguez DO PCP - General 08/13/05 documented as of this encounter
--- OUTSIDE RECORDS SUMMARY | 2023-05-02 05:05 | External Medical Summary | Summary of Care ---
Author Name Unknown Organization [facility] Address [address] [place] [address] Phone [phone] Care Team Providers Care Machine Pecan Gatherer Name Role Phone Avtar Dominguez Primary Care Provider [phone] Reason for Visit * Reason Onset Date Comments Snf Visit - Transfer to ER 03/29/2023 Encounter Details Date Type Department Care Team Description 03/29/2023 Snf Visit [facility] [address] [place] [address] Brianna Orozco PA-C [address] [place] [address] Dyspnea, unspecified type*; Hypoxemia; COPD, moderate (HCC); ESRD on dialysis (HCC); Anemia in chronic kidney disease, on chronic dialysis (HCC); Ascites due to alcoholic cirrhosis (HCC); PAF (paroxysmal atrial fibrillation) (HCC); History of abdominal paracentesis; H/O transurethral destruction of bladder lesion; Fall, initial encounter; Injury of left wrist, initial encounter Allergies No known active allergiesdocumented as of this encounter (statuses as of 03/29/2023) Medications Medication Sig Dispensed Refills Start Date [...] cut, crush or chew 0 01/21/2023 Active [place] Caps 1 MG Oral Capsule Take 1 [...] as of this encounter (statuses as of 03/29/2023) Active Problems Problem Noted Date Hypoxemia 03/29/2023 History of abdominal paracentesis 2022 [...] as of this encounter (statuses as of 03/29/2023) Social History Tobacco Use Types Packs/Day Years [...] Selby DO [address] [place] [address] Health Maintenance Due Date Last Done Comments Pneumococcal Vaccine: 65+ Years (1 - PCV) 1956 Depression Screening 1962 Alpha-1 Antitrypsin 1968 Hepatitis C Screening 1968 O2 ASSESSMENT COMPLETED IN PAST YEAR FOR COPD 1968 Zoster Vaccines (1 of 2) 1969 Cologuard 1995 Colonoscopy 1995 Colorectal Cancer Screening 1995 Fecal Occult Blood Test 1995 Sigmoidoscopy 1995 LUNG CANCER SCREENING - USE SMARTSET 26831 2000 Hepatitis B (1 of 3 - [...] as of this encounter Visit Diagnoses Diagnosis Dyspnea, unspecified type- Primary Hypoxemia COPD, moderate (HCC) Chronic airway obstruction, not elsewhere classified ESRD on dialysis (HCC) End stage renal disease Anemia in chronic kidney disease, on chronic dialysis (HCC) Ascites due to alcoholic cirrhosis (HCC) PAF (paroxysmal atrial fibrillation) (HCC) Atrial fibrillation History of abdominal paracentesis H/O transurethral destruction of bladder lesion Personal history of surgery to other organs Fall, initial encounter Injury of left wrist, initial encounter documented in this encounter Care Teams Machine Pecan Gatherer Relationship Specialty Start Date End Date Jona Dominguez DO PCP - General 08/13/05 documented as of this encounter
--- OUTSIDE RECORDS SUMMARY | 2023-05-02 05:05 | External Medical Summary | Summary of Care ---
Author Name Unknown Organization [facility] Address [address] [place] [address] Phone [phone] Care Team Providers Care Mechanical Process Engineer Name Role Phone Avtar Dominguez Primary Care Provider [phone] Reason for Visit * Reason Onset Date Comments Long Term Visit 03/26/2023 Encounter Details Date Type Department Care Team Description 03/26/2023 Long Term Visit [facility] [address] [place] [address] Brianna Orozco PA-C [address] [place] [address] Ascites due to alcoholic cirrhosis (HCC)*; History of abdominal paracentesis; ESRD on dialysis (HCC); 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 behavioral disturbance, psychotic disturbance, mood disturbance, or anxiety (HCC) Allergies No known active allergiesdocumented as of this encounter (statuses as of 03/26/2023) Medications Medication Sig Dispensed Refills Start Date [...] cut, crush or chew 0 01/21/2023 Active Yellow Medicine Caps 1 MG Oral Capsule Take 1 [...] as of this encounter (statuses as of 03/26/2023) Active Problems Problem Noted Date History of abdominal paracentesis 2022 A-V fistula [...] as of this encounter (statuses as of 03/26/2023) Social History Tobacco Use Types Packs/Day Years [...] Progress Notes * Brianna Orozco PA-C - 03/26/2023 1:37 PM EDT Name: Sisi Redmond Date of :1950 TRANSITION EVENT: Type: Non-applicable Date: March 26 Code Status: Full Code This note pertains to care provided at [facility]. Please see facility medical record for original note. This note is not to be edited or addended in [employer]. Editing or addending needs to occur in the facilities medical record. Subjective: Sisi Redmond is a 72 year old male. Patient being seen for outpatient procedure followup visit Chief Complaint Patient presents with Long Term Visit HPI: pt had 5 liters of fluid removed via abdominal paracentesis yesterday as outpatient at [facility]. Pt has ascites due to liver cirrhosis. He is in process of establishing with GI after having fulgaration of bladder lesion next week. Pt states he feels better today. Less abdominal discomfort and pressure. Pt continues to go to dialysis three days weekly for ESRD due to polycystic kidney disease. Vital signs stable. Weight is down to 168 from 174 pounds. ,labs done at dialysis center Patient Active Problem List Diagnosis Code FX CORONOID PROC ULNA-CL S52.043A DISLOCAT ELBOW NEC-CLOSE S53.196A ESRD on dialysis (HCC) N18.6, Z99.2 HTN, goal below 130/80 I10 Iron deficiency anemia D50.9 Slow transit constipation K59.01 PTSD (post-traumatic stress disorder) F43.10 COPD, moderate ([facility]) J44.9 Vitamin B1 deficiency E51.9 Vitamin D deficiency E55.9 Dry skin dermatitis L85.3 Secondary hyperparathyroidism of renal origin ([facility]) N25.81 Polycystic renal disease Q61.3 PAF (paroxysmal atrial fibrillation) ([facility]) I48.0 Primary insomnia F51.01 Pruritic condition L29.9 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 behavioral disturbance, psychotic disturbance, mood disturbance, or anxiety ([facility]) G30.1, F02.A0 BPH without obstruction/lower urinary tract symptoms N40.0 Benign neoplasm of skin of nose D23.39 Diverticulosis of large intestine without hemorrhage K57.30 Chronic gout without tophus M1A.9XX0 History of intracranial hemorrhage Z86.79 History of nontraumatic rupture of cerebral aneurysm Z86.79 Colon polyp K63.5 History of tobacco use Z87.891 Personal history of alcoholism ([facility]) F10.21 Full code status Z78.9 Coarse tremors G25.2 Protein-calorie malnutrition ([facility]) E46 Anemia in chronic kidney disease, on chronic dialysis (HCC) N18.6, D63.1, Z99.2 Urothelial lesion N39.8 Ascites due to alcoholic cirrhosis ([facility]) K70.31 Renal artery stenosis ([facility]) I70.1 A-V fistula ([facility]) I77.0 History of abdominal paracentesis Z98.890 No past medical history on file. Past Surgical History: Procedure Laterality Date BRAIN ANEURYSM REPR, SIMPLE 2012 MRI compatible brain aneurysm clip [facility] Presby COLONOSCOPY INFORMATION removal of benign neoplasm nose GA CREAT AV FISTULA,AUTOGENOUS GRAFT Left 03/23/2023 Dr. [...] list as this cannot be edited in [employer]. Review of Systems: Constitutional ROS: +change in weight, No change in weakness, No [...] and No syncope Gastrointestinal ROS: see HPI Skin/Integumentary ROS: No rash but chronic pruritus Neurologic ROS: No headaches and No seizures Psychiatric ROS: No depression, No anxiety and No psychosis + dementia, PTSD Sleep: No sleep disorders OBJECTIVE: PHYSICALEXAM: I reviewed the most recent facilities vitals. General: alert, no distress, thin,frail Eye Exam: Conjunctiva are pink and non-injected, [...] normal bowel sounds and no masses or organomegaly. Less ascites and protuberance of abdomen today Extremities: no edema, no clubbing, no cyanosis ASSESSMENT: Ascites due to alcoholic cirrhosis (HCC) (Primary) Reviewed outpatient procedure notes Will most likely require procedure Q three weeks Will follow Will need to get established with GI History of abdominal paracentesis Reviewed outpatient procedure notes Will most likely require procedure Q three weeks Will follow Will need to get established with GI ESRD on dialysis (HCC) Continue with dialysis three days weekly 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 behavioral disturbance, psychotic disturbance, mood disturbance, or anxiety (HCC) Stable mood and mentation Continue Trazodone 50mg HS PLAN: Reviewd vital signs and weights and Continue present medication(s):as ordered. [facility] Treatment Given: as above Electronically signed by: Brianna Orozco PA-C Over 35 minutes were spent in this visit more than half the time was spent counselling or coordinating care. documented in this encounter Plan of Treatment Upcoming Encounters Date Type Specialty Care Team Description 07/29/2023 Office Visit Gastroenterology Latoya Selby DO [address] [place] [address] Health Maintenance Due Date Last Done Comments Pneumococcal Vaccine: 65+ Years (1 - PCV) 1956 Depression Screening 1962 Alpha-1 Antitrypsin 1968 Hepatitis C Screening 1968 O2 ASSESSMENT COMPLETED IN PAST YEAR FOR COPD 1968 Zoster Vaccines (1 of 2) 1969 Cologuard 1995 Colonoscopy 1995 Colorectal Cancer Screening 1995 Fecal Occult Blood Test 1995 Sigmoidoscopy 1995 LUNG CANCER SCREENING - USE SMARTSET 25409 2000 Hepatitis B (1 of 3 - [...] (HCC) documented in this encounter Care Teams Mechanical Process Engineer Relationship Specialty Start Date End Date Jona Dominguez DO PCP - General 08/13/05 documented as of this encounter
--- OUTSIDE RECORDS SUMMARY | 2023-05-02 05:05 | External Medical Summary | Continuity Of Care Document ---
Author Name Unknown Address [address] [place] [address] Organization [facility] ( ) Care Team Providers Care Telehealth Coordinator Name Role Phone Maximo Taylor Primary Care Provider [phone] Problems Code Description Start Date End Date [...] weight Temperature SpO2 Blood Sugar Pulse Respirations 910 45747 4 97.30 Ear 910 03590 4 98.00 Ear 36043 910 56970 1 89.00 mm[Hg] - Sitting 185.00 mm[Hg] - Sitting 98.00 Ear 92.00 % 81.00/ min 910 30645 9 97.30 Ear 911 51348 8 75.00 mm[Hg] - Sitting 147.00 mm[Hg] - Sitting 97.20 Ear 90.00 % 81.00/ min 912 45601 2 80.00 mm[Hg] - Sitting 150.00 mm[Hg] - Sitting 97.80 Ear 93.00 % 78.00/ min 2 97754 9 75.00 mm[Hg] - Sitting 135.00 mm[Hg] - Sitting 97.80 Oral 91.00 % 81.00/ min 4 96724 0 79.00 mm[Hg] - Sitting 162.00 mm[Hg] - Sitting 97.40 Ear 93.00 % 81.00/ min 4 41962 8 180.00 NI 915 43776 0 79.00 mm[Hg] - Sitting 114.00 mm[Hg] - Sitting 97.80 Ear 92.00 % 81.00/ min 915 62708 3 79.00 mm[Hg] - Sitting 116.00 mm[Hg] - Sitting 97.20 Ear 90.00 % 87.00/ min 915 93294 0 96.00 % 05080 9 64.00 mm[Hg] - Lying Down 127.00 mm[Hg] - Lying Down 98.20 Ear 84.00/ min 916 48043 2 87.00 mm[Hg] - Sitting 168.00 mm[Hg] - Sitting 97.80 Oral 92.00 % 86.00/ min 16613 5 67.00 mm[Hg] - Sitting 147.00 mm[Hg] - Sitting 97.30 Ear 91.00 % 87.00/ min 30689 5 96.00 % 38257 8 76.00 mm[Hg] - Sitting 166.00 mm[Hg] - Sitting 97.60 Ear 90.00 % 76.00/ min 917 99303 0 74.00 mm[Hg] - Sitting 141.00 mm[Hg] - Sitting 97.60 X-Other 93.00 % 80.00/ min 02102 919 12555 4 74.00 mm[Hg] - Sitting 166.00 mm[Hg] - Sitting 98.40 Oral 93.00 % 80.00/ min 919 82901 3 156.00 NI 920 40974 6 79.00 mm[Hg] - Sitting 154.00 mm[Hg] - Sitting 97.40 Ear 90.00 % 76.00/ min 920 05719 1 172.20 NI 920 26825 5 06702 920 66317 3 79.00 mm[Hg] - Sitting 154.00 mm[Hg] - Sitting 97.40 Oral 76.00/ min 18.00/min 921 61966 6 921 89985 1 1 66771 6 163.00 NI 921 60415 9 56.00 mm[Hg] - Sitting 172.00 mm[Hg] - Sitting 97.60 Oral 92.00 % 84.00/ min 921 84194 0 163.00 NI 921 42754 5 56.00 mm[Hg] - Sitting 172.00 mm[Hg] - Sitting 97.60 Ear 84.00/ min 18.00/min 921 32994 0 56.00 mm[Hg] - Sitting 172.00 mm[Hg] - Sitting 97.60 Oral 84.00/ min 18.00/min 922 45719 0 71.00 mm[Hg] - Sitting 108.00 mm[Hg] - Sitting 97.80 Ear 90.00 % 88.00/ min 923 55049 3 167.00 NI 928 46457 0 71.00 mm[Hg] - Sitting 108.00 mm[Hg] - Sitting 167.00 NI 97.80 Oral 88.00/ min 928 31604 8 167.00 NI 86591 929 71416 5 173.00 NI 005 98577 2 168.00 NI 007 13566 5 169.00 NI 010 21091 3 95.00 mm[Hg] - Sitting 105.00 mm[Hg] - Sitting 98.10 Ear 91.00 % 85.00/ min 010 00726 9 65.00 mm[Hg] - Sitting 105.00 mm[Hg] - Sitting Immunizations Vaccine Date Status COVID-19 09/11/2020 Completed COVID-19 10/08/2020 Completed COVID-19 12/16/2022 Completed Influenza 03/21/2022 Completed (PCV13)Pneumococcal 04/19/2017 Completed (PPSV23)Pneumococcal 02/08/2019 Completed Shingles 10/02/2021 Completed Tetanus 04/07/2011 Completed H1N1 08/07/2009 Completed Shingles 2 04/10/2022 Completed
--- OUTSIDE RECORDS SUMMARY | 2023-05-02 05:05 | External Medical Summary | Summary of Care ---
Author Name Unknown Organization [facility] Address [address] [place] [address] Phone [phone] Care Team Providers Care Packaging Line Operator Name Role Phone Jona Dominguez DO Primary Care Provider [phone] Reason for Referral * Precert (Within 10 days (routine)) - Authorized Specialty Diagnoses / Procedures Referred By Vivi avila Referred To Contact Radiology Diagnoses Pain of left hand Localized swelling on left hand Left wrist injury, subsequent encounter Procedures CT UPPER EXTREMITY LEFT WO CONTRAST Brianna Orozco PA-C [address] [place] [address] Referral ID Status Reason Start Date Expiration Date V isits Requested Visits Authorized [id number] Authorized 04/08/2023 999 999 * Evaluate & Treat - Unlimited Visits (Within 10 days (routine)) - Authorized Specialty Diagnoses / Procedures Referred By Vivi avila Referred To Contact Gastroenterology Diagnoses Ascites due to alcoholic cirrhosis (HCC) Brianna Orozco PA-C [address] [address] Referral ID Status Reason Start Date Expiration Date Visits Requested Visits Authorized [id number] Authorized Specialty Services Required 3 999 999 Question Answer Referral Priority Within 10 days (routine) Where should this appointment be scheduled? [facility] For what condition is the patient being referred? Liver conditions Comments THIS APPT IS ALREADY SCHEDULED. Reason for Visit * Reason Onset Date Comments Skilled Nursing Visit 04/01/2023 Encounter Details Date Type Department Care Team Description 04/01/2023 Skilled Nursing Visit [facility] [place] [address] [facility] [place] [address] Brianna Orozco PA-C [address] [place] [address] Localized swelling on left hand*; Pain of left hand; Left wrist injury, subsequent encounter; Ascites due to alcoholic cirrhosis (HCC) Allergies No known active allergiesdocumented as [...] of 04/01/2023) Active Problems Problem Noted Date Transitional cell [...] Notes * Brianna Orozco PA-C - 04/01/2023 8:16 AM EDT Name: Sisi Redmond Date of :1950 TRANSITION EVENT: Type: Non-applicable Date: April 01 Code Status: Full Code This note pertains to care provided at [facility]. Please see facility medical record for original note. This note is not to be edited or addended in [employer]. Editing or addending needs to occur in the facilities medical record. Subjective: Sisi Redmond is a 72 year old male. Patient being seen for left hand pain and swelling Chief Complaint Patient presents with Skilled Nursing Visit HPI: I was asked to reassess pt for increasing pain, swelling in left wrist and hand and now into the forearm. Pt fell in shower this week injurying his left hand and wrist. 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 Pt was sent to ED for increasing dyspnea and hypoxemia and had repeat xrays of left wrist done and no fxs noted. He was discharged back to SNF with thumb immobilizing splint. Pt continues to have swelling and pain in wrist and now pain and swelling starting to include lower forearm. OT is in process of providing pt with athumb spica splint. No chest pains, change in his usual dyspnea (pt has COPD), hemoptysis or tachypnea. No chills or fever. Pt is having increasing ascites since his last paracentesis less than a week ago. Pt has alcoholilccirrhosis and his soonest appt for hepatology isn't until July 2023. His weight is now 181 which is significantly higher than his baseline. He is having increasing dyspnea due to "pressure in my belly". His abdominal girth is much increased. Now having some abdominal discomfort. No nausea or vomiting. Pt has had three abdominal paracenteses so far with the last two procedures removing 5 liters of fluid each. Analyses has shown no malignant cells. Pt has ESRD and receives dialysis three days weekly. Labs done at dialysis. Patient Active Problem List Diagnosis Code FX CORONOID PROC ULNA-CL S52.043A DISLOCAT ELBOW NEC-CLOSE S53.196A ESRD on dialysis (HCC) N18.6, Z99.2 HTN, goal below 130/80 I10 Iron deficiency anemia D50.9 Slow transit constipation K59.01 PTSD (post-traumatic stress disorder) F43.10 COPD, moderate ([facility]) J44.9 Vitamin B1 deficiency E51.9 Vitamin D deficiency E55.9 Dry skin dermatitis L85.3 Secondary hyperparathyroidism of renal origin ([facility]) N25.81 Polycystic renal disease Q61.3 PAF (paroxysmal atrial fibrillation) ([facility]) I48.0 Primary insomnia F51.01 Pruritic condition L29.9 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 behavioral disturbance, psychotic disturbance, mood disturbance, or anxiety ([facility]) G30.1, F02.A0 BPH without obstruction/lower urinary tract symptoms N40.0 Benign neoplasm of skin of nose D23.39 Diverticulosis of large intestine without hemorrhage K57.30 Chronic gout without tophus M1A.9XX0 History of intracranial hemorrhage Z86.79 History of nontraumatic rupture of cerebral aneurysm Z86.79 Colon polyp K63.5 History of tobacco use Z87.891 Personal history of alcoholism ([facility]) F10.21 Full code status Z78.9 Coarse tremors G25.2 Protein-calorie malnutrition (HCC) E46 Anemia in chronic kidney disease, on chronic dialysis (HCC) N18.6, D63.1, Z99.2 Urothelial lesion N39.8 Ascites due to alcoholic cirrhosis (HCC) K70.31 Renal artery stenosis (HCC) I70.1 A-V fistula (HCC) I77.0 History of abdominal paracentesis Z98.890 Hypoxemia R09.02 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 ([facility]) C67.9 No past medical history on file. Past Surgical History: Procedure Laterality Date BRAIN ANEURYSM REPR, 2012 MRI compatible brain aneurysm clip [facility] COLONOSCOPY CYSTOSCOPY/BIOPSY 03/29/2023 cystoscopy, fulgaration of bladder lesion. Dr Reyna, [facility] INFORMATION removal of benign neoplasm nose SC CREAT AV FISTULA,AUTOGENOUS GRAFT Left 03/23/2023 Dr. [...] list as this cannot be edited in [employer]. Review of Systems: Constitutional ROS: +change in weight, No change in weakness, No change in fatigue and No fevers, sweats, or chills Nose ROS: No nasal stuffiness and No significant epistaxis Mouth/Throat ROS: No thrush or No sore throat Neck ROS: No lumps or masses, No swollen glands, No recent swelling in thyroid area and No significant pain in neck Pulmonary ROS: unchanged cough, sputum, or hemoptysis, No change in wheezing, No change in shortness of breath and No recent change in breathing Cardiovascular ROS: No chest pain, No change in shortness of breath, No edema, No palpitations and No syncope Gastrointestinal ROS: see HPI Musculoskeletal/Extremities ROS: see HPI Skin/Integumentary ROS: No rash and No itching Neurologic ROS: No headaches and No seizures Psychiatric ROS: No depression, No anxiety and No psychosis +PTSD, + dementia Sleep: No sleep disorders OBJECTIVE: [...] and rhythm, no chest wall tenderness, lungs scattered rhonchi and coarse sounds in bases. Abdomen: abdomen soft, non-tender, normal bowel sounds and no masses or organomegaly +Protuberant with ascites noted Extremities: 1+ edema, no clubbing, no cyanosis Skin: skin color, texture, turgor are normal, no rashes or significant lesions no jaundice ASSESSMENT: Localized swelling on left hand (Primary) S/p left wrist injuries. Xrays showing DJD with bone cysts but no fx Concern for DVT LUE Will obtain venous doppler LUE to rule out DVT Pain of left hand S/p left wrist injuries. Xrays showing DJD with bone cysts but no fx Concern for fx scaphoid Will obtain CT scan of wrist to rule out scaphoid fx Continue immobilization with thumb spica splint Left wrist injury, subsequent encounter Xrays showing DJD with bone cysts but no fx Concern for fx scaphoid Will obtain CT scan of wrist to rule out scaphoid fx Continue immobilization with thumb spica splint Ascites due to alcoholic cirrhosis (HCC) Will arrange for another outpatient paracentesis Will try to arrange for urgent GI referral to establish patient Hepatology appt isn't until July 2023 PLAN: Continue present medication(s):as ordered. [facility] Home Treatment Given: Lab Draw LFT's next lab draw Electronically signed by: Brianna Orozco PA-C Over 35 minutes were spent in this visit more than half the time was spent counselling or coordinating care. documented in this encounter Plan of Treatment Upcoming Encounters Date Type Specialty Care Team Description 04/09/2023 Office Visit Gastroenterology Latoya Selby DO [address] [place] [address] Scheduled Orders Name Type Priority Associated Diagnoses Orde r Schedule CT UPPER EXTREMITY LEFT WO CONTRAST Medical Imaging Routine Pain of left hand Localized swelling on left hand Left wrist injury, subsequent encounter Expected: 04/08/2023, Expires: 05/02/2024 Scheduled Referrals Name Type Priority Associated Diagnoses Orde r Schedule HEPATOLOGY REFERRAL OP Referral Within 10 days (routine) Ascites due to alcoholic cirrhosis (HCC) Ordered: 04/01/2023 Health Maintenance Due Date Last Done Comments Pneumococcal Vaccine: 65+ Years (1 - PCV) 1956 Depression Screening 1962 Alpha-1 Antitrypsin 1968 Hepatitis C Screening 1968 O2 ASSESSMENT COMPLETED IN PAST YEAR FOR COPD 1968 Zoster Vaccines (1 of 2) 1969 Cologuard 1995 Colonoscopy 1995 Colorectal Cancer Screening 1995 Fecal Occult Blood Test 1995 Sigmoidoscopy 1995 LUNG CANCER SCREENING - USE SMARTSET 88223 2000 Hepatitis B (1 of 3 - [...] as of this encounter Visit Diagnoses Diagnosis Localized swelling on left hand- Primary Pain of left hand Pain in limb Left wrist injury, subsequent encounter Ascites due to alcoholic cirrhosis (HCC) documented in this encounter Care Teams Packaging Line Operator Relationship Specialty Start Date End Date Jona Dominguez DO PCP - General 08/13/05 documented as of this encounter
--- OUTSIDE RECORDS SUMMARY | 2023-05-02 05:05 | External Medical Summary | Summary of Care ---
Author Name Unknown Organization [facility] Address [address] [place] [address] Phone [phone] Care Team Providers Care Sales And In Home Delivery Specialist Name Role Phone Avtar Dominguez Primary Care Provider [phone] Reason for Visit * Reason Onset Date Comments Jail Visit 03/26/2023 Encounter Details Date Type Department Care Team Description 03/25/2023 Jail Visit [facility] [address] [address] Brianna Orozco PA-C [address] [place] [address] Ascites due to alcoholic cirrhosis (HCC)*; 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 behavioral disturbance, psychotic disturbance, mood disturbance, or anxiety (HCC); ESRD on dialysis (HCC) Allergies No known active allergiesdocumented as [...] cut, crush or chew 0 01/21/2023 Active [place] Caps 1 MG Oral Capsule Take 1 [...] of 03/26/2023) Active Problems Problem Noted Date A-V fistula 03/24/2023 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 Ascites [...] Selby DO [address] [place] [address] Health Maintenance Due Date Last Done Comments Pneumococcal Vaccine: 65+ Years (1 - PCV) 1956 Depression Screening 1962 Alpha-1 Antitrypsin 1968 Hepatitis C Screening 1968 O2 ASSESSMENT COMPLETED IN PAST YEAR FOR COPD 1968 Zoster Vaccines (1 of 2) 1969 Cologuard 1995 Colonoscopy 1995 Colorectal Cancer Screening 1995 Fecal Occult Blood Test 1995 Sigmoidoscopy 1995 LUNG CANCER SCREENING - USE SMARTSET 68120 2000 Hepatitis B (1 of 3 - [...] Ascites due to alcoholic cirrhosis (HCC)- Primary 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 behavioral disturbance, psychotic disturbance, mood disturbance, or anxiety (HCC) ESRD on dialysis (HCC) End stage renal disease documented in this encounter Care Teams Sales And In Home Delivery Specialist Relationship Specialty Start Date End Date Jona Dominguez DO PCP - General 08/13/05 documented as of this encounter
--- OUTSIDE RECORDS SUMMARY | 2023-05-02 05:05 | External Medical Summary | Continuity Of Care Document ---
Author Name Unknown Address [address] [place] [address] Organization [facility] ( ) Care Team Providers Care Continuity Editor Name Role Phone Maximo Taylor Primary Care Provider [phone] Problems Code Description Start Date End Date [...] weight Temperature SpO2 Blood Sugar Pulse Respirations 50603 911 60904 8 75.00 mm[Hg] - Sitting 147.00 mm[Hg] - Sitting 97.20 Ear 90.00 % 81.00/ min 2 28958 2 80.00 mm[Hg] - Sitting 150.00 mm[Hg] - Sitting 97.80 Ear 93.00 % 78.00/ min 912 43975 9 75.00 mm[Hg] - Sitting 135.00 mm[Hg] - Sitting 97.80 Oral 91.00 % 81.00/ min 914 42063 0 79.00 mm[Hg] - Sitting 162.00 mm[Hg] - Sitting 97.40 Ear 93.00 % 81.00/ min 914 75902 8 180.00 NI 915 50638 0 79.00 mm[Hg] - Sitting 114.00 mm[Hg] - Sitting 97.80 Ear 92.00 % 81.00/ min 915 50781 3 79.00 mm[Hg] - Sitting 116.00 mm[Hg] - Sitting 97.20 Ear 90.00 % 87.00/ min 915 38831 0 96.00 % 6 67834 9 64.00 mm[Hg] - Lying Down 127.00 mm[Hg] - Lying Down 98.20 Ear 84.00/ min 916 04336 2 87.00 mm[Hg] - Sitting 168.00 mm[Hg] - Sitting 97.80 Oral 92.00 % 86.00/ min 7 40313 5 67.00 mm[Hg] - Sitting 147.00 mm[Hg] - Sitting 97.30 Ear 91.00 % 87.00/ min 7 35005 5 96.00 % 7 83848 8 76.00 mm[Hg] - Sitting 166.00 mm[Hg] - Sitting 97.60 Ear 90.00 % 76.00/ min 917 31701 0 74.00 mm[Hg] - Sitting 141.00 mm[Hg] - Sitting 97.60 X-Other 93.00 % 80.00/ min 9 86199 4 74.00 mm[Hg] - Sitting 166.00 mm[Hg] - Sitting 98.40 Oral 93.00 % 80.00/ min 919 58440 3 156.00 NI 920 60228 6 79.00 mm[Hg] - Sitting 154.00 mm[Hg] - Sitting 97.40 Ear 90.00 % 76.00/ min 19898 1 172.20 NI 920 73573 5 920 54868 3 79.00 mm[Hg] - Sitting 154.00 mm[Hg] - Sitting 97.40 Oral 76.00/ min 18.00/min 1 31589 6 10688 1 13409 6 163.00 NI 38378 9 56.00 mm[Hg] - Sitting 172.00 mm[Hg] - Sitting 97.60 Oral 92.00 % 84.00/ min 57712 0 163.00 NI 76420 5 56.00 mm[Hg] - Sitting 172.00 mm[Hg] - Sitting 97.60 Ear 84.00/ min 18.00/min 921 89289 0 56.00 mm[Hg] - Sitting 172.00 mm[Hg] - Sitting 97.60 Oral 84.00/ min 18.00/min 74197 0 71.00 mm[Hg] - Sitting 108.00 mm[Hg] - Sitting 97.80 Ear 90.00 % 88.00/ min 923 89949 3 167.00 NI 928 10643 0 71.00 mm[Hg] - Sitting 108.00 mm[Hg] - Sitting 167.00 NI 97.80 Oral 88.00/ min 928 23873 8 167.00 NI 929 15395 5 173.00 NI 005 17786 2 168.00 NI 007 43782 5 169.00 NI 010 77998 3 95.00 mm[Hg] - Sitting 105.00 mm[Hg] - Sitting 98.10 Ear 91.00 % 85.00/ min 010 59496 9 65.00 mm[Hg] - Sitting 105.00 mm[Hg] - Sitting Immunizations Vaccine Date Status COVID-19 09/11/2020 Completed COVID-19 10/08/2020 Completed COVID-19 12/16/2022 Completed Influenza 03/21/2022 Completed (PCV13)Pneumococcal 04/19/2017 Completed (PPSV23)Pneumococcal 02/08/2019 Completed Shingles 10/02/2021 Completed Tetanus 04/07/2011 Completed H1N1 08/07/2009 Completed Shinjessyes 2 04/10/2022 Completed
--- OUTSIDE RECORDS SUMMARY | 2023-05-02 05:05 | External Medical Summary | Summary of Care ---
Author Name Unknown Organization [facility] Address [address] [place] [address] Phone [phone] Care Team Providers Care Oil Tester Name Role Phone Avtar Dominguez Primary Care Provider [phone] Reason for Visit * Reason Onset Date Comments Jail Visit 04/01/2023 Encounter Details Date Type Department Care Team Description 03/31/2023 Jail Visit [facility] [address] [place] [address] Brianna Orozco PA-C [address] [place] [address] Ascites due to alcoholic cirrhosis (HCC)*; History [...] cut, crush or chew 0 01/21/2023 Active [place] Caps 1 MG Oral Capsule Take 1 [...] Specialty Care Team Description 04/05/[address] [facility] [address] [facility] [place] [address] 04/08/2023 Imaging Radiology 04/09/2023 Office Visit Gastroenterology Latoya Selby DO [address] [place] [address] Health Maintenance Due Date Last Done Comments Pneumococcal Vaccine: 65+ Years (1 - PCV) 1956 Depression Screening 1962 Alpha-1 Antitrypsin 1968 Hepatitis C Screening 1968 O2 ASSESSMENT COMPLETED IN PAST YEAR FOR COPD 1968 Zoster Vaccines (1 of 2) 1969 Cologuard 1995 Colonoscopy 1995 Colorectal Cancer Screening 1995 Fecal Occult Blood Test 1995 Sigmoidoscopy 1995 LUNG CANCER SCREENING - USE SMARTSET 41964 2000 Hepatitis B (1 of 3 - [...] encounter documented in this encounter Care Teams Oil Tester Relationship Specialty Start Date End Date Jona Dominguez DO PCP - General 08/13/05 documented as of this encounter
--- OUTSIDE RECORDS SUMMARY | 2023-05-02 05:05 | External Medical Summary | Continuity Of Care Document ---
Author Name Unknown Address [address] [place] [address] Organization [facility]) Care Team Providers Care [place] Repairer Name Role Phone Maximo Taylor Primary Care Provider [phone] Problems Code Description Start Date End Date Status R18.8 Other ascites 03/09/2023 Active N18.6 End stage renal disease 03/09/2023 A ctive I48.0 Paroxysmal atrial fibrillation 03/09/2023 Active I10. 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 12/2022 Active D64.9 Anemia, unspecified 02/25/2023 Activ e F43.10 Post-traumatic stress disorder, unspecified 12/2022 Active R26.9 Unspecified abnormalities of gait and mobility 12/10/2022 Active G93.41 Metabolic encephalopathy 12/10/2022 Active W19.XXXA Unspecified fall, initial encounter 12/10/2022 Active I48.91 Unspecified atrial fibrillation 12/10/2022 00/0 Active E87.70 Fluid overload, unspecified 12/10/2022 00 Active M25.539 Pain in unspecified wrist 12/10/2022 Active J96.01 Acute respiratory failure with hypoxia 12/11/19 Active G30.9 Alzheimer's disease, unspecified 12/10/2022 Active R00.1 Bradycardia, unspecified 12/10/2022 Active K57.90 Diverticulosis of in testine, part unspecified, without perforation or abscess without bleeding 12/10/2022 Active M10.9 Gout, unspecified 12/10/2022 Active M54.50 Low back pain, unspecified 12/10/2022 0 Active 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 12/10/2022 Active E21.1 Secondary hyperparat hyroidism, not elsewhere classified 12/10/2022 Active G40.919 Epilepsy, unspecifie d, intractable, without status epilepticus 12/10/2022 Active R25.1 Tremor, unspecified 12/10/2022 Activ e E55.9 Vitamin D deficiency, unspecified 12/10/2022 Active R26.81 Unsteadiness on feet 12/16/2022 Acti ve R48.8 Other symbolic dysfunctions 12/16/2022 00 Active R13.11 Dysphagia, oral phase 12/16/2022 Act magdi M62.81 Muscle weakness (generalized) 12/16/2022 Active Z74.1 Need for assistance with personal care 12/17/19 23 Active R26.89 Other abnormalities of gait and mobility 2022 Active R53.1 Weakness 12/16/2022 Active R18.8 Other ascites 03/09/2023 Active U07.1 COVID-19 02/25/2023 Active R26.9 Unspecified abnormalities of gait and mobility 12/10/2022 Active VITAL SIGNS Date Time Diastolic blood pressure Systolic blood pressure Body height Body weight Temperature SpO2 Blood Sugar Pulse Respirations 907 33063 8 87.00 mm[Hg] - Sitting 134.00 mm[Hg] - Sitting 180.00 NI 97.50 Ear 95.00 % 20.00/min 09435 907 18482 3 87.00 mm[Hg] - Sitting 134.00 mm[Hg] - Sitting 97.50 Oral 76.00/ min 20.00/min 61198 908 20863 7 80092 908 78818 0 73.00 mm[Hg] - Sitting 130.00 mm[Hg] - Sitting 97.20 Ear 82.00/ min 23576 908 43044 4 87.00 mm[Hg] - Sitting 134.00 mm[Hg] - Sitting 97.50 Ear 76.00/ min 18.00/min 48663 908 76241 0 97.50 Oral 30522 908 63414 8 87.00 mm[Hg] - Sitting 134.00 mm[Hg] - Sitting 18.00/min 16267 908 44178 6 97.90 Ear 64892 909 10602 5 62741 909 72752 2 54667 909 06193 1 73.00 mm[Hg] - Sitting 130.00 mm[Hg] - Sitting 97.20 Ear 91.00 % 82.00/ min 40194 909 43313 1 97.60 Ear 71555 909 67426 2 97.40 Ear 11224 910 48220 4 97.30 Ear 39858 910 06636 4 98.00 Ear 44807 910 68934 1 89.00 mm[Hg] - Sitting 185.00 mm[Hg] - Sitting 98.00 Ear 92.00 % 81.00/ min 84509 910 29329 9 97.30 Ear 73140 911 23603 8 75.00 mm[Hg] - Sitting 147.00 mm[Hg] - Sitting 97.20 Ear 90.00 % 81.00/ min 16855 912 77590 2 80.00 mm[Hg] - Sitting 150.00 mm[Hg] - Sitting 97.80 Ear 93.00 % 78.00/ min 81458 912 66212 9 75.00 mm[Hg] - Sitting 135.00 mm[Hg] - Sitting 97.80 Oral 91.00 % 81.00/ min 78319 914 75031 0 79.00 mm[Hg] - Sitting 162.00 mm[Hg] - Sitting 97.40 Ear 93.00 % 81.00/ min 62752 914 76635 8 180.00 NI 80514 915 02839 0 79.00 mm[Hg] - Sitting 114.00 mm[Hg] - Sitting 97.80 Ear 92.00 % 81.00/ min 915 50834 3 79.00 mm[Hg] - Sitting 116.00 mm[Hg] - Sitting 97.20 Ear 90.00 % 87.00/ min 915 15242 0 96.00 % 21362 9 64.00 mm[Hg] - Lying Down 127.00 mm[Hg] - Lying Down 98.20 Ear 84.00/ min 6 09359 2 87.00 mm[Hg] - Sitting 168.00 mm[Hg] - Sitting 97.80 Oral 92.00 % 86.00/ min 7 12949 5 67.00 mm[Hg] - Sitting 147.00 mm[Hg] - Sitting 97.30 Ear 91.00 % 87.00/ min 97879 5 96.00 % 31511 8 76.00 mm[Hg] - Sitting 166.00 mm[Hg] - Sitting 97.60 Ear 90.00 % 76.00/ min 917 39551 0 74.00 mm[Hg] - Sitting 141.00 mm[Hg] - Sitting 97.60 X-Other 93.00 % 80.00/ min 919 40905 4 74.00 mm[Hg] - Sitting 166.00 mm[Hg] - Sitting 98.40 Oral 93.00 % 80.00/ min 919 78222 3 156.00 NI 53967 6 79.00 mm[Hg] - Sitting 154.00 mm[Hg] - Sitting 97.40 Ear 90.00 % 76.00/ min 0 21117 1 172.20 NI 920 56209 5 920 06768 3 79.00 mm[Hg] - Sitting 154.00 mm[Hg] - Sitting 97.40 Oral 76.00/ min 18.00/min 1 11191 6 921 20669 1 78066 6 163.00 NI 921 99321 9 56.00 mm[Hg] - Sitting 172.00 mm[Hg] - Sitting 97.60 Oral 92.00 % 84.00/ min 01779 921 32771 0 163.00 NI 921 68033 5 56.00 mm[Hg] - Sitting 172.00 mm[Hg] - Sitting 97.60 Ear 84.00/ min 18.00/min 16101 921 11451 0 56.00 mm[Hg] - Sitting 172.00 mm[Hg] - Sitting 97.60 Oral 84.00/ min 18.00/min 01148 922 42941 0 71.00 mm[Hg] - Sitting 108.00 mm[Hg] - Sitting 97.80 Ear 90.00 % 88.00/ min 923 33454 3 167.00 NI 928 34574 0 71.00 mm[Hg] - Sitting 108.00 mm[Hg] - Sitting 167.00 NI 97.80 Oral 88.00/ min 928 68481 8 167.00 NI 929 23102 5 173.00 NI Immunizations Vaccine Date Status COVID-19 09/11/2020 Completed COVID-19 10/08/2020 Completed COVID-19 12/16/2022 Completed Influenza 03/21/2022 Completed (PCV13)Pneumococcal 04/19/2017 Completed (PPSV23)Pneumococcal 02/08/2019 Completed Shingles 10/02/2021 Completed Tetanus 04/07/2011 Completed H1N1 08/07/2009 Completed Shingles 2 04/10/2022 Completed
--- OUTSIDE RECORDS SUMMARY | 2023-05-02 05:05 | External Medical Summary | Continuity Of Care Document ---
Author Name Unknown Address [address] [place] [address] Organization [facility] ( ) Care Team Providers Care Central Office Associate Name Role Phone Maximo Taylor Primary Care Provider [phone] Problems Code Description Start Date End Date Status U07.1 COVID-19 02/25/2023 Active R10.9 Unspecified abdominal pain 02/25/2023 0 Active J44.9 Chronic obstructive pulmonary disease, unspecified 02/25/2023 Active I10. 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 12/2022 Active D64.9 Anemia, unspecified 02/25/2023 Activ e F43.10 Post-traumatic stress disorder, unspecified 12/2022 Active R26.9 Unspecified abnormal ities of gait and mobility 12/10/2022 Active G93.41 Metabolic encephalopathy 12/10/2022 Active W19.XXXA Unspecified fall, initial encounter 12/10/2022 Active I48.91 Unspecified atrial fibrillation 12/10/2022 00/0 Active R18.8 Other ascites 12/10/2022 Active E87.70 Fluid overload, unspecified 12/10/2022 00 [...] E55.9 Vitamin D deficiency, unspecified 12/10/2022 Active N18.6 End stage renal disease 02/25/2023 A ctive R26.81 Unsteadiness on feet 12/16/2022 Acti ve R48.8 Other symbolic dysfunctions 12/16/2022 00 Active R13.11 Dysphagia, oral phase 12/16/2022 Act magdi M62.81 Muscle weakness (generalized) 12/16/2022 Active Z74.1 Need for assistance with personal care 12/17/19 23 Active R26.89 Other abnormalities of gait and mobility 2022 Active R53.1 Weakness 12/16/2022 Active U07.1 COVID-19 02/25/2023 Active R26.9 Unspecified abnormal ities of gait and mobility 12/10/2022 03/08/2023 Completed VITAL SIGNS Date Time Diastolic blood pressure Systolic blood pressure Body height Body weight Temperature SpO2 Blood Sugar Pulse Respirations 914 07279 0 79.00 mm[Hg] - Sitting 162.00 mm[Hg] - Sitting 97.40 Ear 93.00 % 81.00/ min 68769 8 180.00 NI 915 37539 0 79.00 mm[Hg] - Sitting 114.00 mm[Hg] - Sitting 97.80 Ear 92.00 % 81.00/ min 915 26054 3 79.00 mm[Hg] - Sitting 116.00 mm[Hg] - Sitting 97.20 Ear 90.00 % 87.00/ min 915 54954 0 96.00 % 34315 9 64.00 mm[Hg] - Lying Down 127.00 mm[Hg] - Lying Down 98.20 Ear 84.00/ min 6 12767 2 87.00 mm[Hg] - Sitting 168.00 mm[Hg] - Sitting 97.80 Oral 92.00 % 86.00/ min 7 43057 5 67.00 mm[Hg] - Sitting 147.00 mm[Hg] - Sitting 97.30 Ear 91.00 % 87.00/ min 25347 5 96.00 % 13478 8 76.00 mm[Hg] - Sitting 166.00 mm[Hg] - Sitting 97.60 Ear 90.00 % 76.00/ min 917 32793 0 74.00 mm[Hg] - Sitting 141.00 mm[Hg] - Sitting 97.60 X-Other 93.00 % 80.00/ min 919 89036 4 74.00 mm[Hg] - Sitting 166.00 mm[Hg] - Sitting 98.40 Oral 93.00 % 80.00/ min 919 66522 3 156.00 NI 920 69060 6 79.00 mm[Hg] - Sitting 154.00 mm[Hg] - Sitting 97.40 Ear 90.00 % 76.00/ min 920 68597 1 172.20 NI 920 06106 5 63337 920 41016 3 79.00 mm[Hg] - Sitting 154.00 mm[Hg] - Sitting 97.40 Oral 76.00/ min 18.00/min 921 14140 6 30465 921 06699 1 921 70912 6 163.00 NI 921 44738 9 56.00 mm[Hg] - Sitting 172.00 mm[Hg] - Sitting 97.60 Oral 92.00 % 84.00/ min 921 95337 0 163.00 NI 921 20625 5 56.00 mm[Hg] - Sitting 172.00 mm[Hg] - Sitting 97.60 Ear 84.00/ min 18.00/min 921 35018 0 56.00 mm[Hg] - Sitting 172.00 mm[Hg] - Sitting 97.60 Oral 84.00/ min 18.00/min 922 35962 0 71.00 mm[Hg] - Sitting 108.00 mm[Hg] - Sitting 97.80 Ear 90.00 % 88.00/ min 923 79236 3 167.00 NI 928 77511 0 71.00 mm[Hg] - Sitting 108.00 mm[Hg] - Sitting 167.00 NI 97.80 Oral 88.00/ min 928 84874 8 167.00 NI 929 12507 5 173.00 NI 005 65282 2 168.00 NI 007 87980 5 169.00 NI 010 36723 3 95.00 mm[Hg] - Sitting 105.00 mm[Hg] - Sitting 98.10 Ear 91.00 % 85.00/ min 010 90804 9 65.00 mm[Hg] - Sitting 105.00 mm[Hg] - Sitting 011 36638 1 181.00 NI 012 35828 2 181.00 NI Immunizations Vaccine Date Status COVID-19 09/11/2020 Completed COVID-19 10/08/2020 Completed COVID-19 12/16/2022 Completed Influenza 03/21/2022 Completed (PCV13)Pneumococcal 04/19/2017 Completed (PPSV23)Pneumococcal 02/08/2019 Completed Shingles 10/02/2021 Completed Tetanus 04/07/2011 Completed H1N1 08/07/2009 Completed Shingles 2 04/10/2022 Completed
--- OUTSIDE RECORDS SUMMARY | 2023-05-02 05:05 | External Medical Summary | Summary of Care ---
Author Name Unknown Organization [facility] Address [address] [place] [address] Phone [phone] Care Team Providers Care Development Editor Name Role Phone Angelica Marla The DO Primary Care Provider [phone] Encounter Details Date Type Department Care Team Description 03/31/2023 Orders Only Lab Mobile Phlebot[facility] [address] [place], [place] [id number] Maximo Taylor MD [address] [place] [address] [place] [address] Gout* Allergies No known active allergiesdocumented as of this encounter (statuses as of 03/31/2023) Medications Medication Sig Dispensed Refills Start Date [...] cut, crush or chew 0 01/21/2023 Active [place] Caps 1 MG Oral Capsule Take 1 [...] as of this encounter (statuses as of 03/31/2023) Active Problems Problem Noted Date Transitional cell [...] as of this encounter (statuses as of 03/31/2023) Social History Tobacco Use Types Packs/Day Years [...] Encounters Date Type Specialty Care Team Description 03/31/2023 Laboratory Laboratory Processing [address] [place] [address] Arrived 07/29/2023 Office Visit Gastroenterology Latoya Selby DO [address] [place] [address] Scheduled Orders Name Type Priority Associated Diagnoses Orde r Schedule URIC ACID Lab Routine Gout Expected: 03/31/2023, Expires: 03/31/2024 Health Maintenance Due Date Last Done Comments Pneumococcal Vaccine: 65+ Years (1 - PCV) 1956 Depression Screening 1962 Alpha-1 Antitrypsin 1968 Hepatitis C Screening 1968 O2 ASSESSMENT COMPLETED IN PAST YEAR FOR COPD 1968 Zoster Vaccines (1 of 2) 1969 Cologuard 1995 Colonoscopy 1995 Colorectal Cancer Screening 1995 Fecal Occult Blood Test 1995 Sigmoidoscopy 1995 LUNG CANCER SCREENING - USE SMARTSET 07217 2000 Hepatitis B (1 of 3 - [...] as of this encounter Visit Diagnoses Diagnosis Gout- Primary Gout, unspecified documented in this encounter Care Teams Development Editor Relationship Specialty Start Date End Date Jona Dominguez DO PCP - General 08/13/05 documented as of this encounter
--- OUTSIDE RECORDS SUMMARY | 2023-05-02 05:05 | External Medical Summary | Continuity Of Care Document ---
Author Name Unknown Address [address] [place] [address] Organization [facility] ( ) Care Team Providers Care Choral Director Name Role Phone Maximo Taylor Primary Care Provider [phone] Problems Code Description Start Date End Date [...] Temperature SpO2 Blood Sugar Pulse Respirations 910 87237 4 97.30 Ear 910 50323 4 98.00 Ear 92361 910 90705 1 89.00 mm[Hg] - Sitting 185.00 mm[Hg] - Sitting 98.00 Ear 92.00 % 81.00/ min 910 12194 9 97.30 Ear 911 20418 8 75.00 mm[Hg] - Sitting 147.00 mm[Hg] - Sitting 97.20 Ear 90.00 % 81.00/ min 912 49846 2 80.00 mm[Hg] - Sitting 150.00 mm[Hg] - Sitting 97.80 Ear 93.00 % 78.00/ min 2 37689 9 75.00 mm[Hg] - Sitting 135.00 mm[Hg] - Sitting 97.80 Oral 91.00 % 81.00/ min 4 30518 0 79.00 mm[Hg] - Sitting 162.00 mm[Hg] - Sitting 97.40 Ear 93.00 % 81.00/ min 4 59621 8 180.00 NI 915 01859 0 79.00 mm[Hg] - Sitting 114.00 mm[Hg] - Sitting 97.80 Ear 92.00 % 81.00/ min 915 09135 3 79.00 mm[Hg] - Sitting 116.00 mm[Hg] - Sitting 97.20 Ear 90.00 % 87.00/ min 915 47923 0 96.00 % 14972 9 64.00 mm[Hg] - Lying Down 127.00 mm[Hg] - Lying Down 98.20 Ear 84.00/ min 916 05392 2 87.00 mm[Hg] - Sitting 168.00 mm[Hg] - Sitting 97.80 Oral 92.00 % 86.00/ min 48367 5 67.00 mm[Hg] - Sitting 147.00 mm[Hg] - Sitting 97.30 Ear 91.00 % 87.00/ min 11178 5 96.00 % 52510 8 76.00 mm[Hg] - Sitting 166.00 mm[Hg] - Sitting 97.60 Ear 90.00 % 76.00/ min 917 83058 0 74.00 mm[Hg] - Sitting 141.00 mm[Hg] - Sitting 97.60 X-Other 93.00 % 80.00/ min 44686 919 68533 4 74.00 mm[Hg] - Sitting 166.00 mm[Hg] - Sitting 98.40 Oral 93.00 % 80.00/ min 919 20692 3 156.00 NI 920 78305 6 79.00 mm[Hg] - Sitting 154.00 mm[Hg] - Sitting 97.40 Ear 90.00 % 76.00/ min 920 09544 1 172.20 NI 920 11465 5 62319 920 12196 3 79.00 mm[Hg] - Sitting 154.00 mm[Hg] - Sitting 97.40 Oral 76.00/ min 18.00/min 921 37445 6 921 88383 1 1 85000 6 163.00 NI 921 87252 9 56.00 mm[Hg] - Sitting 172.00 mm[Hg] - Sitting 97.60 Oral 92.00 % 84.00/ min 921 89421 0 163.00 NI 921 63700 5 56.00 mm[Hg] - Sitting 172.00 mm[Hg] - Sitting 97.60 Ear 84.00/ min 18.00/min 921 15999 0 56.00 mm[Hg] - Sitting 172.00 mm[Hg] - Sitting 97.60 Oral 84.00/ min 18.00/min 922 68941 0 71.00 mm[Hg] - Sitting 108.00 mm[Hg] - Sitting 97.80 Ear 90.00 % 88.00/ min 923 05356 3 167.00 NI 928 18601 0 71.00 mm[Hg] - Sitting 108.00 mm[Hg] - Sitting 167.00 NI 97.80 Oral 88.00/ min 928 63259 8 167.00 NI 04463 929 30408 5 173.00 NI 005 70466 2 168.00 NI 007 16635 5 169.00 NI 010 54165 3 95.00 mm[Hg] - Sitting 105.00 mm[Hg] - Sitting 98.10 Ear 91.00 % 85.00/ min 010 63469 9 65.00 mm[Hg] - Sitting 105.00 mm[Hg] - Sitting Immunizations Vaccine Date Status COVID-19 09/11/2020 Completed COVID-19 10/08/2020 Completed COVID-19 12/16/2022 Completed Influenza 03/21/2022 Completed (PCV13)Pneumococcal 04/19/2017 Completed (PPSV23)Pneumococcal 02/08/2019 Completed Shingles 10/02/2021 Completed Tetanus 04/07/2011 Completed H1N1 08/07/2009 Completed Shingles 2 04/10/2022 Completed
--- OUTSIDE RECORDS SUMMARY | 2023-05-02 05:06 | External Medical Summary | Continuity Of Care Document ---
Author Name Unknown Address [address] [place] [address] Organization [facility]) Care Team Providers Care Route Salesperson Name Role Phone Maximo Taylor Primary Care Provider [phone] Problems Code Description Start Date End Date [...] Temperature SpO2 Blood Sugar Pulse Respirations 907 23865 8 87.00 mm[Hg] - Sitting 134.00 mm[Hg] - Sitting 180.00 NI 97.50 Ear 95.00 % 20.00/min 81397 907 78736 3 87.00 mm[Hg] - Sitting 134.00 mm[Hg] - Sitting 97.50 Oral 76.00/ min 20.00/min 00100 908 79816 7 38278 908 39260 0 73.00 mm[Hg] - Sitting 130.00 mm[Hg] - Sitting 97.20 Ear 82.00/ min 36755 908 84572 4 87.00 mm[Hg] - Sitting 134.00 mm[Hg] - Sitting 97.50 Ear 76.00/ min 18.00/min 91337 908 37996 0 97.50 Oral 11959 908 15650 8 87.00 mm[Hg] - Sitting 134.00 mm[Hg] - Sitting 18.00/min 15760 908 32877 6 97.90 Ear 92057 909 41799 5 65449 909 36194 2 32325 909 88074 1 73.00 mm[Hg] - Sitting 130.00 mm[Hg] - Sitting 97.20 Ear 91.00 % 82.00/ min 10665 909 00858 1 97.60 Ear 18125 909 85042 2 97.40 Ear 41006 910 11790 4 97.30 Ear 50589 910 95892 4 98.00 Ear 67679 910 19605 1 89.00 mm[Hg] - Sitting 185.00 mm[Hg] - Sitting 98.00 Ear 92.00 % 81.00/ min 16574 910 91288 9 97.30 Ear 94149 911 15984 8 75.00 mm[Hg] - Sitting 147.00 mm[Hg] - Sitting 97.20 Ear 90.00 % 81.00/ min 10445 912 84880 2 80.00 mm[Hg] - Sitting 150.00 mm[Hg] - Sitting 97.80 Ear 93.00 % 78.00/ min 65705 912 26258 9 75.00 mm[Hg] - Sitting 135.00 mm[Hg] - Sitting 97.80 Oral 91.00 % 81.00/ min 41653 914 08869 0 79.00 mm[Hg] - Sitting 162.00 mm[Hg] - Sitting 97.40 Ear 93.00 % 81.00/ min 44987 914 73345 8 180.00 NI 75953 915 72125 0 79.00 mm[Hg] - Sitting 114.00 mm[Hg] - Sitting 97.80 Ear 92.00 % 81.00/ min 915 40532 3 79.00 mm[Hg] - Sitting 116.00 mm[Hg] - Sitting 97.20 Ear 90.00 % 87.00/ min 915 89915 0 96.00 % 89570 9 64.00 mm[Hg] - Lying Down 127.00 mm[Hg] - Lying Down 98.20 Ear 84.00/ min 6 87407 2 87.00 mm[Hg] - Sitting 168.00 mm[Hg] - Sitting 97.80 Oral 92.00 % 86.00/ min 7 31024 5 67.00 mm[Hg] - Sitting 147.00 mm[Hg] - Sitting 97.30 Ear 91.00 % 87.00/ min 91609 5 96.00 % 54982 8 76.00 mm[Hg] - Sitting 166.00 mm[Hg] - Sitting 97.60 Ear 90.00 % 76.00/ min 917 81201 0 74.00 mm[Hg] - Sitting 141.00 mm[Hg] - Sitting 97.60 X-Other 93.00 % 80.00/ min 919 22179 4 74.00 mm[Hg] - Sitting 166.00 mm[Hg] - Sitting 98.40 Oral 93.00 % 80.00/ min 919 53068 3 156.00 NI 01573 6 79.00 mm[Hg] - Sitting 154.00 mm[Hg] - Sitting 97.40 Ear 90.00 % 76.00/ min 0 88430 1 172.20 NI 920 95877 5 920 48653 3 79.00 mm[Hg] - Sitting 154.00 mm[Hg] - Sitting 97.40 Oral 76.00/ min 18.00/min 1 65657 6 921 36264 1 31490 6 163.00 NI 921 43464 9 56.00 mm[Hg] - Sitting 172.00 mm[Hg] - Sitting 97.60 Oral 92.00 % 84.00/ min 02989 921 69356 0 163.00 NI 921 84752 5 56.00 mm[Hg] - Sitting 172.00 mm[Hg] - Sitting 97.60 Ear 84.00/ min 18.00/min 02904 921 29308 0 56.00 mm[Hg] - Sitting 172.00 mm[Hg] - Sitting 97.60 Oral 84.00/ min 18.00/min 38123 922 19282 0 71.00 mm[Hg] - Sitting 108.00 mm[Hg] - Sitting 97.80 Ear 90.00 % 88.00/ min 923 75626 3 167.00 NI 928 05878 0 71.00 mm[Hg] - Sitting 108.00 mm[Hg] - Sitting 167.00 NI 97.80 Oral 88.00/ min 928 05903 8 167.00 NI 929 15670 5 173.00 NI Immunizations Vaccine Date Status COVID-19 09/11/2020 Completed COVID-19 10/08/2020 Completed COVID-19 12/16/2022 Completed Influenza 03/21/2022 Completed (PCV13)Pneumococcal 04/19/2017 Completed (PPSV23)Pneumococcal 02/08/2019 Completed Shingles 10/02/2021 Completed Tetanus 04/07/2011 Completed H1N1 08/07/2009 Completed Shingles 2 04/10/2022 Completed
--- OUTSIDE RECORDS SUMMARY | 2023-05-02 05:06 | External Medical Summary | Summary of Care ---
Author Name Unknown Organization [facility] Address [address] [facility] [address] Phone [phone] Care Team Providers Care Crabbing Machine Operator Name Role Phone Avtar Dominguez Primary Care Provider [phone] Reason for Visit * Reason Onset Date Comments Halfway Visit 03/24/2023 Regulatory Encounter Details Date Type Department Care Team Description 03/24/2023 Halfway Visit [address] [place] [address] Maximo Taylor MD [address] [place] [address] [place] [id number] A-V fistula (HCC)*; ESRD on dialysis (HCC); Ascites due to alcoholic cirrhosis (HCC); Urothelial lesion; Anemia in chronic kidney disease, on chronic dialysis (HCC); PAF (paroxysmal atrial fibrillation) (HCC); COPD, moderate (HCC); Severe protein-calorie malnutrition (HCC); Renal artery stenosis (HCC); 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 behavioral disturbance, psychotic disturbance, mood disturbance, or anxiety (HCC) Allergies No known active allergiesdocumented as of this encounter (statuses as of 03/24/2023) Medications Medication Sig Dispensed Refills Start Date [...] cut, crush or chew 0 01/21/2023 Active [place] Caps 1 MG Oral Capsule Take 1 [...] as of this encounter (statuses as of 03/24/2023) Active Problems Problem Noted Date A-V fistula [...] as of this encounter (statuses as of 03/24/2023) Social History Tobacco Use Types Packs/Day Years [...] as of this encounter Progress Notes * Maximo Taylor MD - 03/24/2023 10:01 AM EDT Regulatory Visit TRANSITION EVENT: Type: Regulatory visit Date: March 24 Code Status: Full Code Name: Sisi Redmond Date of : 1950 This note pertains to care provided at [facility]. Please see facility medical record for original note. This note is not to be edited or addended in [employer] [facility]. Editing or addending needs to occur in the facilities medical record. S: Sisi Redmond seen today as part of a regulatory visit. Has history of : Patient Active Problem List Diagnosis Code FX [...] Q61.3 PAF (paroxysmal atrial fibrillation) ([facility]) I48.0 Primary insomnia F51.01 Pruritic condition L29.9 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 behavioral disturbance, psychotic disturbance, mood disturbance, or anxiety ([facility]) G30.1, F02.A0 BPH without obstruction/lower urinary tract symptoms N40.0 Benign neoplasm of skin of nose D23.39 Diverticulosis of large intestine without hemorrhage K57.30 Chronic gout without tophus [id number].[id number] History of intracranial hemorrhage Z86.79 History of nontraumatic rupture of cerebral aneurysm Z86.79 Colon polyp K63.5 History of tobacco use Z87.891 Personal history of alcoholism ([facility]) F10.21 Full code status Z78.9 Coarse tremors G25.2 Protein-calorie malnutrition (HCC) E46 Anemia in chronic kidney disease, on chronic dialysis (HCC) N18.6, D63.1, Z99.2 Urothelial lesion N39.8 Ascites due to alcoholic cirrhosis (HCC) K70.31 Renal artery stenosis ([facility]) I70.1 A-V fistula ([facility]) I77.0 No past medical history on file. Past Surgical History: Procedure Laterality Date BRAIN ANEURYSM REPR, SIMPLE 2012 MRI compatible brain aneurysm clip [facility] Presby COLONOSCOPY INFORMATION removal of benign neoplasm nose IA CREAT AV FISTULA,AUTOGENOUS GRAFT Left 03/23/2023 Dr. [...] of patient's allergies indicates: No Known Allergies He is now having acute problem(s). Current problems include patient had AV fistula created yesterday in [place]. Patient reports the skin around the fistula feels "numb." Not affecting the arm, just the skin. The area around the fistula was also noted to be red and swollen by staff today. Patient reports worsening ascites. Has had paracentesis x 2. Has been gaining weight rapidly over the last week. Abdomen is distended and uncomfortable. Patient requesting another paracentesis. Is scheduled with GI but not until the need of the month. GI did provide standing paracentesis orders. Is scheduled for cystoscopy and fulguration of bladder tumor by Dr. Reyna on 03/29/23. Is not having pain issues. Is not having behavioral problems. Results for orders placed or performed in visit on 03/03/23 HEPATIC FUNCTION PANEL Result Value Ref Range Albumin 3.2 (L) 3.8 - 5.0 g/dL AST 12 10 - 50 U/L Alkaline Phosphatase 53 35 - 130 U/L ALT 9 (L) 10 - 50 U/L Bilirubin, Total 0.2 <=1.2 mg/dL Bilirubin, Direct <0.2 0.0 - 0.3 mg/dL Protein 5.5 (L) 6.0 - 8.3 g/dL AMMONIA Result Value Ref Range Ammonia 33 11 - 35 umol/L CBC Results: Results for orders placed or performed in visit on 12/14/22 CBC Result Value Ref Range WBC 7.75 4.00 - 10.80 K/uL RBC 3.49 4.50 - 5.25 M/uL HGB 10.8 (L) 14.0 - 16.8 g/dL HCT 34.4 (L) 40.0 - 48.4 % MCV 98.6 82.0 - 99.5 fL MCH 30.9 27.0 - 34.0 pg MCHC 31.4 32.0 - 36.0 g/dL RDW 18.1 11.5 - 15.5 % PLT 331 140 - 400 K/uL MPV 9.6 6.6 - 11.1 fL ROS: CONSTITUTIONAL: No fevers, sweats, or chills and +rapid weight gain due to ascites as above EYE: No recent significant change in vision and No eye pain, redness, discharge EARS: No ear pain, No drainage, No tinnitus or vertigo, and No recent change in hearing NOSE: No history of frequent colds or sinusitis and +allergic rhinitis MOUTH: No bleeding gums, No thrush, or No sore throat PULMONARY: No cough, sputum, or hemoptysis, No wheezing, No recent change in breathing, and +COPD on oxygen CARDIOVASCULAR: No chest pain, No orthopnea, No paroxysmal nocturnal dyspnea, No palpitations, No syncope, and +lower extremity edema GASTROINTESTINAL: No change in bowel habits, No significant heartburn, No significant change in appetite, No hematemesis, No blood in stools or black tarry stools, and +tense ascites MALE: No dysuria, No frequency, and +dialysis EXTREMITIES: +OA SKIN/INTEGUMENTARY: No rash, +itching and +redness around AV fistula NEUROLOGIC: No headaches and +seizure disorder PSYCHIATRIC: +PTSD O: I reviewed the most recent facilities vitals. General: alert, no distress, and chronically ill cachetic appearing male with hugely distended abdomen and wasted extremities Head: Normocephalic Neuro: alert & oriented x 3 with fluent speech, no focal motor/sensory deficits Eye Exam: PERRLA, extraocular movements intact, conjunctiva are pink and non- injected, sclera clear Ears: External ears normal Nose: no mucosal erythema, no mucosal edema, no purulent discharge Oropharynx: no exudate, no erythema, lips, buccal mucosa, and tongue normal, and mucous membranes are moist Neck: supple, no adenopathy, no bruits Heart: regular rate & rhythm and no gallops Lungs: chest symmetric with normal AP diameter, no chest deformities noted, no chest wall tenderness, decreased breath sounds Chest: dialysis catheter clean, dry, and intact Abdomen: +marked tense ascites Extremities: no clubbing, no cyanosis, 2+ distal lower extremity and pedal edema bilaterally. Dressing place to left antecubital area with diffuse ecchymosis of the left upper extremity. +edematous skin around proximal forearm and distal upper arm. +erythema and warmth of the area surrounding the AV fistula A: A-V fistula (HCC) (Primary)--s/p creation yesterday. Skin around area is somewhat erythematous and warm but also has a lot of tissue edema in the area. Dialysis notified to check area during treatment today. Has not had a fever. Denies pain or tenderness ESRD on dialysis (HCC)--having treatment today. Ascites due to alcoholic cirrhosis (HCC)--patient with tense abdominal ascites. Will get him set upfor another paracentesis. GI consult pending. Urothelial lesion--scheduled for cystoscopy 03/29/[address] Reyna. Anemia in chronic kidney disease, on chronic dialysis (HCC)--stable PAF (paroxysmal atrial fibrillation) ([facility])--continue amiodarone 200 mg daily. COPD, moderate (HCC)--no recent flares. Continue oxygen, Duoneb PRN, and Stiolto daily. Severe protein-calorie malnutrition (HCC)--stable. Weight fluctuates due to edema and ascites Renal artery stenosis (HCC)--stable 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 behavioral disturbance, psychotic disturbance, mood disturbance, or anxiety ([facility])--stable P: Medications reviewed. Please refer to MAR in the facility's medical record for the most up-to-date medication list. Continue present medication(s):, Schedule for procedure: Paracentesis, and Schedule labs: will needplatelet count, PT/INR, and PTT prior to paracentesis Reviewed [facility] record for: vital signs, weight, bowel, and bladder function, and ADLs. Labs reviewed Continue current treatment plan as ordered Continue to follow up as needed and as scheduled [facility] Home Treatment Given: Other Paracentesis at [facility] Electronically signed by: Maximo Taylor MD I spent a total of 35 minutes coordinating, documenting, and providing care for this patient excluding time spent in the performance of separately billed services or time spent by another provider/QHP. documented in this encounter Plan of Treatment Upcoming Encounters Date Type Specialty Care Team Description 07/29/2023 Office Visit Gastroenterology Latoya Selby DO [address] [place] [address] Health Maintenance Due Date Last Done Comments Pneumococcal Vaccine: 65+ Years (1 - PCV) 1956 Depression Screening 1962 Alpha-1 Antitrypsin 1968 Hepatitis C Screening 1968 O2 ASSESSMENT COMPLETED IN PAST YEAR FOR COPD 1968 Zoster Vaccines (1 of 2) 1969 Cologuard 1995 Colonoscopy 1995 Colorectal Cancer Screening 1995 Fecal Occult Blood Test 1995 Sigmoidoscopy 1995 LUNG CANCER SCREENING - USE SMARTSET 26648 2000 Hepatitis B (1 of 3 - [...] as of this encounter Visit Diagnoses Diagnosis A-V fistula (HCC)- Primary Arteriovenous fistula, acquired ESRD on dialysis (HCC) End stage renal disease Ascites due to alcoholic cirrhosis (HCC) Urothelial lesion Unspecified disorder of urethra and urinary tract Anemia in chronic kidney disease, on chronic dialysis (HCC) PAF (paroxysmal atrial fibrillation) (HCC) Atrial fibrillation COPD, moderate (HCC) Chronic airway obstruction, not elsewhere classified Severe protein-calorie malnutrition (HCC) Other severe protein-calorie malnutrition Renal artery stenosis (HCC) Atherosclerosis of renal artery 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 behavioral disturbance, psychotic disturbance, mood disturbance, or anxiety (HCC) documented in this encounter Care Teams Crabbing Machine Operator Relationship Specialty Start Date End Date Jona Dominguez DO PCP - General 08/13/05 documented as of this encounter
--- OUTSIDE RECORDS SUMMARY | 2023-05-02 05:06 | External Medical Summary | Continuity Of Care Document ---
Author Name Unknown Address [address] [place] [address] Organization [facility]) Care Team Providers Care Subsystems Engineer Name Role Phone Maximo Taylor Primary Care Provider [phone] Problems Code Description Start Date End Date [...] Temperature SpO2 Blood Sugar Pulse Respirations 907 34481 8 87.00 mm[Hg] - Sitting 134.00 mm[Hg] - Sitting 180.00 NI 97.50 Ear 95.00 % 20.00/min 39536 907 31366 3 87.00 mm[Hg] - Sitting 134.00 mm[Hg] - Sitting 97.50 Oral 76.00/ min 20.00/min 34012 908 91166 7 59654 908 53091 0 73.00 mm[Hg] - Sitting 130.00 mm[Hg] - Sitting 97.20 Ear 82.00/ min 53436 908 38392 4 87.00 mm[Hg] - Sitting 134.00 mm[Hg] - Sitting 97.50 Ear 76.00/ min 18.00/min 00999 908 28432 0 97.50 Oral 10982 908 01606 8 87.00 mm[Hg] - Sitting 134.00 mm[Hg] - Sitting 18.00/min 62352 908 96424 6 97.90 Ear 20786 909 60293 5 02977 909 52004 2 61589 909 66966 1 73.00 mm[Hg] - Sitting 130.00 mm[Hg] - Sitting 97.20 Ear 91.00 % 82.00/ min 90986 909 90716 1 97.60 Ear 06944 909 37407 2 97.40 Ear 13537 910 03334 4 97.30 Ear 27494 910 32980 4 98.00 Ear 85728 910 40860 1 89.00 mm[Hg] - Sitting 185.00 mm[Hg] - Sitting 98.00 Ear 92.00 % 81.00/ min 97083 910 76479 9 97.30 Ear 76858 911 36732 8 75.00 mm[Hg] - Sitting 147.00 mm[Hg] - Sitting 97.20 Ear 90.00 % 81.00/ min 31311 912 17724 2 80.00 mm[Hg] - Sitting 150.00 mm[Hg] - Sitting 97.80 Ear 93.00 % 78.00/ min 79623 912 72134 9 75.00 mm[Hg] - Sitting 135.00 mm[Hg] - Sitting 97.80 Oral 91.00 % 81.00/ min 23120 914 65267 0 79.00 mm[Hg] - Sitting 162.00 mm[Hg] - Sitting 97.40 Ear 93.00 % 81.00/ min 96114 914 56032 8 180.00 NI 94075 915 57462 0 79.00 mm[Hg] - Sitting 114.00 mm[Hg] - Sitting 97.80 Ear 92.00 % 81.00/ min 915 87307 3 79.00 mm[Hg] - Sitting 116.00 mm[Hg] - Sitting 97.20 Ear 90.00 % 87.00/ min 915 82188 0 96.00 % 17754 9 64.00 mm[Hg] - Lying Down 127.00 mm[Hg] - Lying Down 98.20 Ear 84.00/ min 6 27629 2 87.00 mm[Hg] - Sitting 168.00 mm[Hg] - Sitting 97.80 Oral 92.00 % 86.00/ min 7 12138 5 67.00 mm[Hg] - Sitting 147.00 mm[Hg] - Sitting 97.30 Ear 91.00 % 87.00/ min 13370 5 96.00 % 79595 8 76.00 mm[Hg] - Sitting 166.00 mm[Hg] - Sitting 97.60 Ear 90.00 % 76.00/ min 917 47719 0 74.00 mm[Hg] - Sitting 141.00 mm[Hg] - Sitting 97.60 X-Other 93.00 % 80.00/ min 919 44850 4 74.00 mm[Hg] - Sitting 166.00 mm[Hg] - Sitting 98.40 Oral 93.00 % 80.00/ min 919 83619 3 156.00 NI 47599 6 79.00 mm[Hg] - Sitting 154.00 mm[Hg] - Sitting 97.40 Ear 90.00 % 76.00/ min 0 62715 1 172.20 NI 920 30756 5 920 22016 3 79.00 mm[Hg] - Sitting 154.00 mm[Hg] - Sitting 97.40 Oral 76.00/ min 18.00/min 1 61250 6 921 62823 1 34699 6 163.00 NI 921 51847 9 56.00 mm[Hg] - Sitting 172.00 mm[Hg] - Sitting 97.60 Oral 92.00 % 84.00/ min 32288 921 12902 0 163.00 NI 921 55417 5 56.00 mm[Hg] - Sitting 172.00 mm[Hg] - Sitting 97.60 Ear 84.00/ min 18.00/min 37254 921 55446 0 56.00 mm[Hg] - Sitting 172.00 mm[Hg] - Sitting 97.60 Oral 84.00/ min 18.00/min 42539 922 03202 0 71.00 mm[Hg] - Sitting 108.00 mm[Hg] - Sitting 97.80 Ear 90.00 % 88.00/ min 923 67232 3 167.00 NI 928 46121 0 71.00 mm[Hg] - Sitting 108.00 mm[Hg] - Sitting 167.00 NI 97.80 Oral 88.00/ min 928 23543 8 167.00 NI 929 12812 5 173.00 NI Immunizations Vaccine Date Status COVID-19 09/11/2020 Completed COVID-19 10/08/2020 Completed COVID-19 12/16/2022 Completed Influenza 03/21/2022 Completed (PCV13)Pneumococcal 04/19/2017 Completed (PPSV23)Pneumococcal 02/08/2019 Completed Shingles 10/02/2021 Completed Tetanus 04/07/2011 Completed H1N1 08/07/2009 Completed Shingles 2 04/10/2022 Completed
--- OUTSIDE RECORDS SUMMARY | 2023-05-02 05:06 | External Medical Summary | Continuity Of Care Document ---
Author Name Unknown Address [address] [place] [address] Organization [facility]) Care Team Providers Care Cloth Finishing Range Operator Chief Name Role Phone Maximo Taylor Primary Care Provider [phone] Problems Code Description Start Date End Date [...] Temperature SpO2 Blood Sugar Pulse Respirations 907 06487 8 87.00 mm[Hg] - Sitting 134.00 mm[Hg] - Sitting 180.00 NI 97.50 Ear 95.00 % 20.00/min 69959 907 40170 3 87.00 mm[Hg] - Sitting 134.00 mm[Hg] - Sitting 97.50 Oral 76.00/ min 20.00/min 84242 908 72793 7 13578 908 20322 0 73.00 mm[Hg] - Sitting 130.00 mm[Hg] - Sitting 97.20 Ear 82.00/ min 82789 908 15688 4 87.00 mm[Hg] - Sitting 134.00 mm[Hg] - Sitting 97.50 Ear 76.00/ min 18.00/min 56734 908 68543 0 97.50 Oral 04419 908 55249 8 87.00 mm[Hg] - Sitting 134.00 mm[Hg] - Sitting 18.00/min 80693 908 79511 6 97.90 Ear 11681 909 98090 5 25091 909 31814 2 24706 909 93853 1 73.00 mm[Hg] - Sitting 130.00 mm[Hg] - Sitting 97.20 Ear 91.00 % 82.00/ min 99251 909 28976 1 97.60 Ear 12575 909 40350 2 97.40 Ear 16125 910 36642 4 97.30 Ear 67154 910 17870 4 98.00 Ear 75889 910 32040 1 89.00 mm[Hg] - Sitting 185.00 mm[Hg] - Sitting 98.00 Ear 92.00 % 81.00/ min 86899 910 55693 9 97.30 Ear 20029 911 65749 8 75.00 mm[Hg] - Sitting 147.00 mm[Hg] - Sitting 97.20 Ear 90.00 % 81.00/ min 77040 912 97831 2 80.00 mm[Hg] - Sitting 150.00 mm[Hg] - Sitting 97.80 Ear 93.00 % 78.00/ min 70920 912 16303 9 75.00 mm[Hg] - Sitting 135.00 mm[Hg] - Sitting 97.80 Oral 91.00 % 81.00/ min 59425 914 57924 0 79.00 mm[Hg] - Sitting 162.00 mm[Hg] - Sitting 97.40 Ear 93.00 % 81.00/ min 78606 914 18843 8 180[place]00 [place] [address]47 915 39840 0 79.00 mm[Hg] - Sitting 114.00 mm[Hg] - Sitting 97.80 Ear 92.00 % 81.00/ min 915 20753 3 79.00 mm[Hg] - Sitting 116.00 mm[Hg] - Sitting 97.20 Ear 90.00 % 87.00/ min 915 30508 0 96.00 % 02742 9 64.00 mm[Hg] - Lying Down 127.00 mm[Hg] - Lying Down 98.20 Ear 84.00/ min 6 66497 2 87.00 mm[Hg] - Sitting 168.00 mm[Hg] - Sitting 97.80 Oral 92.00 % 86.00/ min 7 06015 5 67.00 mm[Hg] - Sitting 147.00 mm[Hg] - Sitting 97.30 Ear 91.00 % 87.00/ min 73949 5 96.00 % 54311 8 76.00 mm[Hg] - Sitting 166.00 mm[Hg] - Sitting 97.60 Ear 90.00 % 76.00/ min 917 88504 0 74.00 mm[Hg] - Sitting 141.00 mm[Hg] - Sitting 97.60 X-Other 93.00 % 80.00/ min 919 42752 4 74.00 mm[Hg] - Sitting 166.00 mm[Hg] - Sitting 98.40 Oral 93.00 % 80.00/ min 919 56009 3 156.00 NI 55453 6 79.00 mm[Hg] - Sitting 154.00 mm[Hg] - Sitting 97.40 Ear 90.00 % 76.00/ min 0 28750 1 172.20 NI 920 62102 5 920 30628 3 79.00 mm[Hg] - Sitting 154.00 mm[Hg] - Sitting 97.40 Oral 76.00/ min 18.00/min 1 03666 6 921 90939 1 30861 6 163.00 NI 921 18252 9 56.00 mm[Hg] - Sitting 172.00 mm[Hg] - Sitting 97.60 Oral 92.00 % 84.00/ min 01787 921 22939 0 163.00 NI 921 50189 5 56.00 mm[Hg] - Sitting 172.00 mm[Hg] - Sitting 97.60 Ear 84.00/ min 18.00/min 49917 921 49637 0 56.00 mm[Hg] - Sitting 172.00 mm[Hg] - Sitting 97.60 Oral 84.00/ min 18.00/min 62539 922 04141 0 71.00 mm[Hg] - Sitting 108.00 mm[Hg] - Sitting 97.80 Ear 90.00 % 88.00/ min 923 32245 3 167.00 NI 928 29754 0 71.00 mm[Hg] - Sitting 108.00 mm[Hg] - Sitting 167.00 NI 97.80 Oral 88.00/ min 928 62433 8 167.00 NI 929 63588 5 173.00 NI Immunizations Vaccine Date Status COVID-19 09/11/2020 Completed COVID-19 10/08/2020 Completed COVID-19 12/16/2022 Completed Influenza 03/21/2022 Completed (PCV13)Pneumococcal 04/19/2017 Completed (PPSV23)Pneumococcal 02/08/2019 Completed Shingles 10/02/2021 Completed Tetanus 04/07/2011 Completed H1N1 08/07/2009 Completed Shingles 2 04/10/2022 Completed
--- OUTSIDE RECORDS SUMMARY | 2023-05-02 05:06 | External Medical Summary | Continuity Of Care Document ---
Author Name Unknown Address [address] [place] [address] Organization [facility] ( ) Care Team Providers Care Front End Software Developer Name Role Phone Maximo Taylor Primary Care Provider [phone] Problems Code Description Start Date End Date [...] Temperature SpO2 Blood Sugar Pulse Respirations 907 15504 8 87.00 mm[Hg] - Sitting 134.00 mm[Hg] - Sitting 180.00 NI 97.50 Ear 95.00 % 20.00/min 32920 907 51640 3 87.00 mm[Hg] - Sitting 134.00 mm[Hg] - Sitting 97.50 Oral 76.00/ min 20.00/min 66837 908 42178 7 15634 908 53217 0 73.00 mm[Hg] - Sitting 130.00 mm[Hg] - Sitting 97.20 Ear 82.00/ min 69429 908 43652 4 87.00 mm[Hg] - Sitting 134.00 mm[Hg] - Sitting 97.50 Ear 76.00/ min 18.00/min 15475 908 25998 0 97.50 Oral 83746 908 51575 8 87.00 mm[Hg] - Sitting 134.00 mm[Hg] - Sitting 18.00/min 07123 908 27907 6 97.90 Ear 78529 909 78572 5 95142 909 80061 2 66460 909 34076 1 73.00 mm[Hg] - Sitting 130.00 mm[Hg] - Sitting 97.20 Ear 91.00 % 82.00/ min 15224 909 55934 1 97.60 Ear 25870 909 07963 2 97.40 Ear 96942 910 77871 4 97.30 Ear 96310 910 76529 4 98.00 Ear 06302 910 14957 1 89.00 mm[Hg] - Sitting 185.00 mm[Hg] - Sitting 98.00 Ear 92.00 % 81.00/ min 07442 910 91879 9 97.30 Ear 64205 911 16039 8 75.00 mm[Hg] - Sitting 147.00 mm[Hg] - Sitting 97.20 Ear 90.00 % 81.00/ min 20949 912 63194 2 80.00 mm[Hg] - Sitting 150.00 mm[Hg] - Sitting 97.80 Ear 93.00 % 78.00/ min 50122 912 83877 9 75.00 mm[Hg] - Sitting 135.00 mm[Hg] - Sitting 97.80 Oral 91.00 % 81.00/ min 97221 914 36320 0 79.00 mm[Hg] - Sitting 162.00 mm[Hg] - Sitting 97.40 Ear 93.00 % 81.00/ min 23050 914 47515 8 180[place]00 [place] [address] 915 80170 0 79.00 mm[Hg] - Sitting 114.00 mm[Hg] - Sitting 97.80 Ear 92.00 % 81.00/ min 915 07138 3 79.00 mm[Hg] - Sitting 116.00 mm[Hg] - Sitting 97.20 Ear 90.00 % 87.00/ min 915 38122 0 96.00 % 48210 9 64.00 mm[Hg] - Lying Down 127.00 mm[Hg] - Lying Down 98.20 Ear 84.00/ min 6 77735 2 87.00 mm[Hg] - Sitting 168.00 mm[Hg] - Sitting 97.80 Oral 92.00 % 86.00/ min 7 69404 5 67.00 mm[Hg] - Sitting 147.00 mm[Hg] - Sitting 97.30 Ear 91.00 % 87.00/ min 15804 5 96.00 % 70655 8 76.00 mm[Hg] - Sitting 166.00 mm[Hg] - Sitting 97.60 Ear 90.00 % 76.00/ min 917 74075 0 74.00 mm[Hg] - Sitting 141.00 mm[Hg] - Sitting 97.60 X-Other 93.00 % 80.00/ min 919 59209 4 74.00 mm[Hg] - Sitting 166.00 mm[Hg] - Sitting 98.40 Oral 93.00 % 80.00/ min 919 66230 3 156.00 NI 66698 6 79.00 mm[Hg] - Sitting 154.00 mm[Hg] - Sitting 97.40 Ear 90.00 % 76.00/ min 0 84096 1 172.20 NI 920 93105 5 920 49834 3 79.00 mm[Hg] - Sitting 154.00 mm[Hg] - Sitting 97.40 Oral 76.00/ min 18.00/min 1 55022 6 921 19075 1 55119 6 163.00 NI 921 12100 9 56.00 mm[Hg] - Sitting 172.00 mm[Hg] - Sitting 97.60 Oral 92.00 % 84.00/ min 36364 921 19168 0 163.00 NI 921 88041 5 56.00 mm[Hg] - Sitting 172.00 mm[Hg] - Sitting 97.60 Ear 84.00/ min 18.00/min 71164 921 09688 0 56.00 mm[Hg] - Sitting 172.00 mm[Hg] - Sitting 97.60 Oral 84.00/ min 18.00/min 31880 922 56343 0 71.00 mm[Hg] - Sitting 108.00 mm[Hg] - Sitting 97.80 Ear 90.00 % 88.00/ min 923 61539 3 167.00 NI 928 94027 0 71.00 mm[Hg] - Sitting 108.00 mm[Hg] - Sitting 167.00 NI 97.80 Oral 88.00/ min 928 72334 8 167.00 NI 929 64399 5 173.00 NI Immunizations Vaccine Date Status COVID-19 09/11/2020 Completed COVID-19 10/08/2020 Completed COVID-19 12/16/2022 Completed Influenza 03/21/2022 Completed (PCV13)Pneumococcal 04/19/2017 Completed (PPSV23)Pneumococcal 02/08/2019 Completed Shingles 10/02/2021 Completed Tetanus 04/07/2011 Completed H1N1 08/07/2009 Completed Shingles 2 04/10/2022 Completed
--- OUTSIDE RECORDS SUMMARY | 2023-05-02 05:06 | External Medical Summary | Continuity Of Care Document ---
Author Name Unknown Address [address] [place] [address] Organization [facility] ( ) Care Team Providers Care Dispatch Specialist Name Role Phone Maximo Taylor Primary Care Provider [phone] Problems Code Description Start Date End Date [...] Temperature SpO2 Blood Sugar Pulse Respirations 907 54664 8 87.00 mm[Hg] - Sitting 134.00 mm[Hg] - Sitting 180.00 NI 97.50 Ear 95.00 % 20.00/min 70729 907 76117 3 87.00 mm[Hg] - Sitting 134.00 mm[Hg] - Sitting 97.50 Oral 76.00/ min 20.00/min 29963 908 10046 7 66839 908 51839 0 73.00 mm[Hg] - Sitting 130.00 mm[Hg] - Sitting 97.20 Ear 82.00/ min 02555 908 78584 4 87.00 mm[Hg] - Sitting 134.00 mm[Hg] - Sitting 97.50 Ear 76.00/ min 18.00/min 85769 908 72318 0 97.50 Oral 93712 908 46240 8 87.00 mm[Hg] - Sitting 134.00 mm[Hg] - Sitting 18.00/min 57514 908 09591 6 97.90 Ear 61643 909 93014 5 28622 909 58692 2 62158 909 13420 1 73.00 mm[Hg] - Sitting 130.00 mm[Hg] - Sitting 97.20 Ear 91.00 % 82.00/ min 33736 909 72522 1 97.60 Ear 09405 909 60410 2 97.40 Ear 43978 910 17874 4 97.30 Ear 62292 910 65856 4 98.00 Ear 01043 910 48292 1 89.00 mm[Hg] - Sitting 185.00 mm[Hg] - Sitting 98.00 Ear 92.00 % 81.00/ min 85614 910 42963 9 97.30 Ear 12644 911 59021 8 75.00 mm[Hg] - Sitting 147.00 mm[Hg] - Sitting 97.20 Ear 90.00 % 81.00/ min 95432 912 62564 2 80.00 mm[Hg] - Sitting 150.00 mm[Hg] - Sitting 97.80 Ear 93.00 % 78.00/ min 34224 912 95941 9 75.00 mm[Hg] - Sitting 135.00 mm[Hg] - Sitting 97.80 Oral 91.00 % 81.00/ min 10312 914 76701 0 79.00 mm[Hg] - Sitting 162.00 mm[Hg] - Sitting 97.40 Ear 93.00 % 81.00/ min 21184 914 35387 8 180.00 NI 90784 915 60438 0 79.00 mm[Hg] - Sitting 114.00 mm[Hg] - Sitting 97.80 Ear 92.00 % 81.00/ min 915 80165 3 79.00 mm[Hg] - Sitting 116.00 mm[Hg] - Sitting 97.20 Ear 90.00 % 87.00/ min 915 96468 0 96.00 % 89425 9 64.00 mm[Hg] - Lying Down 127.00 mm[Hg] - Lying Down 98.20 Ear 84.00/ min 6 24458 2 87.00 mm[Hg] - Sitting 168.00 mm[Hg] - Sitting 97.80 Oral 92.00 % 86.00/ min 7 60266 5 67.00 mm[Hg] - Sitting 147.00 mm[Hg] - Sitting 97.30 Ear 91.00 % 87.00/ min 10855 5 96.00 % 77431 8 76.00 mm[Hg] - Sitting 166.00 mm[Hg] - Sitting 97.60 Ear 90.00 % 76.00/ min 917 05707 0 74.00 mm[Hg] - Sitting 141.00 mm[Hg] - Sitting 97.60 X-Other 93.00 % 80.00/ min 919 65683 4 74.00 mm[Hg] - Sitting 166.00 mm[Hg] - Sitting 98.40 Oral 93.00 % 80.00/ min 919 36126 3 156.00 NI 89252 6 79.00 mm[Hg] - Sitting 154.00 mm[Hg] - Sitting 97.40 Ear 90.00 % 76.00/ min 0 65917 1 172.20 NI 920 68109 5 920 24410 3 79.00 mm[Hg] - Sitting 154.00 mm[Hg] - Sitting 97.40 Oral 76.00/ min 18.00/min 1 73217 6 921 19169 1 92071 6 163.00 NI 921 59994 9 56.00 mm[Hg] - Sitting 172.00 mm[Hg] - Sitting 97.60 Oral 92.00 % 84.00/ min 79224 921 05441 0 163.00 NI 921 24522 5 56.00 mm[Hg] - Sitting 172.00 mm[Hg] - Sitting 97.60 Ear 84.00/ min 18.00/min 30281 921 63750 0 56.00 mm[Hg] - Sitting 172.00 mm[Hg] - Sitting 97.60 Oral 84.00/ min 18.00/min 90904 922 14576 0 71.00 mm[Hg] - Sitting 108.00 mm[Hg] - Sitting 97.80 Ear 90.00 % 88.00/ min 923 76556 3 167.00 NI 928 89038 0 71.00 mm[Hg] - Sitting 108.00 mm[Hg] - Sitting 167.00 NI 97.80 Oral 88.00/ min 928 69512 8 167.00 NI 929 88551 5 173.00 NI Immunizations Vaccine Date Status COVID-19 09/11/2020 Completed COVID-19 10/08/2020 Completed COVID-19 12/16/2022 Completed Influenza 03/21/2022 Completed (PCV13)Pneumococcal 04/19/2017 Completed (PPSV23)Pneumococcal 02/08/2019 Completed Shingles 10/02/2021 Completed Tetanus 04/07/2011 Completed H1N1 08/07/2009 Completed Shingles 2 04/10/2022 Completed
--- OUTSIDE RECORDS SUMMARY | 2023-05-02 05:06 | External Medical Summary | Continuity Of Care Document ---
Author Name Unknown Address [address] [place] [address] Organization [facility] ( ) Care Team Providers Care Bilingual Customer Service Specialist Name Role Phone Maximo Taylor Primary Care Provider [phone] Problems Code Description Start Date End Date [...] Temperature SpO2 Blood Sugar Pulse Respirations 907 98666 8 87.00 mm[Hg] - Sitting 134.00 mm[Hg] - Sitting 180.00 NI 97.50 Ear 95.00 % 20.00/min 80196 907 85116 3 87.00 mm[Hg] - Sitting 134.00 mm[Hg] - Sitting 97.50 Oral 76.00/ min 20.00/min 76459 908 34758 7 33731 908 57878 0 73.00 mm[Hg] - Sitting 130.00 mm[Hg] - Sitting 97.20 Ear 82.00/ min 45770 908 75743 4 87.00 mm[Hg] - Sitting 134.00 mm[Hg] - Sitting 97.50 Ear 76.00/ min 18.00/min 91896 908 96151 0 97.50 Oral 75469 908 07086 8 87.00 mm[Hg] - Sitting 134.00 mm[Hg] - Sitting 18.00/min 49759 908 01790 6 97.90 Ear 90306 909 31523 5 03331 909 08805 2 02145 909 48457 1 73.00 mm[Hg] - Sitting 130.00 mm[Hg] - Sitting 97.20 Ear 91.00 % 82.00/ min 93837 909 36936 1 97.60 Ear 63493 909 72942 2 97.40 Ear 38012 910 12630 4 97.30 Ear 25581 910 46169 4 98.00 Ear 81651 910 88062 1 89.00 mm[Hg] - Sitting 185.00 mm[Hg] - Sitting 98.00 Ear 92.00 % 81.00/ min 28652 910 99986 9 97.30 Ear 93718 911 09957 8 75.00 mm[Hg] - Sitting 147.00 mm[Hg] - Sitting 97.20 Ear 90.00 % 81.00/ min 52171 912 72891 2 80.00 mm[Hg] - Sitting 150.00 mm[Hg] - Sitting 97.80 Ear 93.00 % 78.00/ min 22004 912 88504 9 75.00 mm[Hg] - Sitting 135.00 mm[Hg] - Sitting 97.80 Oral 91.00 % 81.00/ min 43297 914 08221 0 79.00 mm[Hg] - Sitting 162.00 mm[Hg] - Sitting 97.40 Ear 93.00 % 81.00/ min 67968 914 32947 8 180.00 NI 44714 915 89714 0 79.00 mm[Hg] - Sitting 114.00 mm[Hg] - Sitting 97.80 Ear 92.00 % 81.00/ min 915 70557 3 79.00 mm[Hg] - Sitting 116.00 mm[Hg] - Sitting 97.20 Ear 90.00 % 87.00/ min 915 11726 0 96.00 % 44442 9 64.00 mm[Hg] - Lying Down 127.00 mm[Hg] - Lying Down 98.20 Ear 84.00/ min 6 00822 2 87.00 mm[Hg] - Sitting 168.00 mm[Hg] - Sitting 97.80 Oral 92.00 % 86.00/ min 7 27769 5 67.00 mm[Hg] - Sitting 147.00 mm[Hg] - Sitting 97.30 Ear 91.00 % 87.00/ min 93396 5 96.00 % 91349 8 76.00 mm[Hg] - Sitting 166.00 mm[Hg] - Sitting 97.60 Ear 90.00 % 76.00/ min 917 74126 0 74.00 mm[Hg] - Sitting 141.00 mm[Hg] - Sitting 97.60 X-Other 93.00 % 80.00/ min 919 24085 4 74.00 mm[Hg] - Sitting 166.00 mm[Hg] - Sitting 98.40 Oral 93.00 % 80.00/ min 919 71298 3 156.00 NI 68460 6 79.00 mm[Hg] - Sitting 154.00 mm[Hg] - Sitting 97.40 Ear 90.00 % 76.00/ min 0 49675 1 172.20 NI 920 67606 5 920 47309 3 79.00 mm[Hg] - Sitting 154.00 mm[Hg] - Sitting 97.40 Oral 76.00/ min 18.00/min 1 19340 6 921 41501 1 08900 6 163.00 NI 921 82481 9 56.00 mm[Hg] - Sitting 172.00 mm[Hg] - Sitting 97.60 Oral 92.00 % 84.00/ min 23214 921 23020 0 163.00 NI 921 71973 5 56.00 mm[Hg] - Sitting 172.00 mm[Hg] - Sitting 97.60 Ear 84.00/ min 18.00/min 39297 921 34161 0 56.00 mm[Hg] - Sitting 172.00 mm[Hg] - Sitting 97.60 Oral 84.00/ min 18.00/min 61351 922 18769 0 71.00 mm[Hg] - Sitting 108.00 mm[Hg] - Sitting 97.80 Ear 90.00 % 88.00/ min 923 59868 3 167.00 NI 928 95274 0 71.00 mm[Hg] - Sitting 108.00 mm[Hg] - Sitting 167.00 NI 97.80 Oral 88.00/ min 928 91714 8 167.00 NI 929 66370 5 173.00 NI Immunizations Vaccine Date Status COVID-19 09/11/2020 Completed COVID-19 10/08/2020 Completed COVID-19 12/16/2022 Completed Influenza 03/21/2022 Completed (PCV13)Pneumococcal 04/19/2017 Completed (PPSV23)Pneumococcal 02/08/2019 Completed Shingles 10/02/2021 Completed Tetanus 04/07/2011 Completed H1N1 08/07/2009 Completed Shingles 2 04/10/2022 Completed
--- OUTSIDE RECORDS SUMMARY | 2023-05-02 05:06 | External Medical Summary | Continuity Of Care Document ---
Author Name Unknown Address [address] [place] [address] Organization [facility]) Care Team Providers Care Solid State Tester Name Role Phone Maximo Taylor Primary Care Provider [phone] Problems Code Description Start Date End Date [...] Temperature SpO2 Blood Sugar Pulse Respirations 907 85574 8 87.00 mm[Hg] - Sitting 134.00 mm[Hg] - Sitting 180.00 NI 97.50 Ear 95.00 % 20.00/min 79623 907 61701 3 87.00 mm[Hg] - Sitting 134.00 mm[Hg] - Sitting 97.50 Oral 76.00/ min 20.00/min 58619 908 53596 7 60811 908 77161 0 73.00 mm[Hg] - Sitting 130.00 mm[Hg] - Sitting 97.20 Ear 82.00/ min 12905 908 29730 4 87.00 mm[Hg] - Sitting 134.00 mm[Hg] - Sitting 97.50 Ear 76.00/ min 18.00/min 29503 908 54240 0 97.50 Oral 20225 908 94297 8 87.00 mm[Hg] - Sitting 134.00 mm[Hg] - Sitting 18.00/min 62119 908 40209 6 97.90 Ear 33468 909 59846 5 52180 909 81455 2 97060 909 21155 1 73.00 mm[Hg] - Sitting 130.00 mm[Hg] - Sitting 97.20 Ear 91.00 % 82.00/ min 15962 909 42793 1 97.60 Ear 00530 909 14343 2 97.40 Ear 79227 910 10387 4 97.30 Ear 31969 910 03186 4 98.00 Ear 37572 910 21843 1 89.00 mm[Hg] - Sitting 185.00 mm[Hg] - Sitting 98.00 Ear 92.00 % 81.00/ min 41371 910 57281 9 97.30 Ear 83143 911 49444 8 75.00 mm[Hg] - Sitting 147.00 mm[Hg] - Sitting 97.20 Ear 90.00 % 81.00/ min 47015 912 53333 2 80.00 mm[Hg] - Sitting 150.00 mm[Hg] - Sitting 97.80 Ear 93.00 % 78.00/ min 12069 912 52988 9 75.00 mm[Hg] - Sitting 135.00 mm[Hg] - Sitting 97.80 Oral 91.00 % 81.00/ min 93405 914 09387 0 79.00 mm[Hg] - Sitting 162.00 mm[Hg] - Sitting 97.40 Ear 93.00 % 81.00/ min 78273 914 43100 8 180.00 NI 31450 915 54829 0 79.00 mm[Hg] - Sitting 114.00 mm[Hg] - Sitting 97.80 Ear 92.00 % 81.00/ min 915 35913 3 79.00 mm[Hg] - Sitting 116.00 mm[Hg] - Sitting 97.20 Ear 90.00 % 87.00/ min 915 09909 0 96.00 % 30291 9 64.00 mm[Hg] - Lying Down 127.00 mm[Hg] - Lying Down 98.20 Ear 84.00/ min 6 16454 2 87.00 mm[Hg] - Sitting 168.00 mm[Hg] - Sitting 97.80 Oral 92.00 % 86.00/ min 7 04639 5 67.00 mm[Hg] - Sitting 147.00 mm[Hg] - Sitting 97.30 Ear 91.00 % 87.00/ min 82635 5 96.00 % 68249 8 76.00 mm[Hg] - Sitting 166.00 mm[Hg] - Sitting 97.60 Ear 90.00 % 76.00/ min 917 20015 0 74.00 mm[Hg] - Sitting 141.00 mm[Hg] - Sitting 97.60 X-Other 93.00 % 80.00/ min 919 55831 4 74.00 mm[Hg] - Sitting 166.00 mm[Hg] - Sitting 98.40 Oral 93.00 % 80.00/ min 919 05617 3 156.00 NI 32123 6 79.00 mm[Hg] - Sitting 154.00 mm[Hg] - Sitting 97.40 Ear 90.00 % 76.00/ min 0 29492 1 172.20 NI 920 38327 5 920 42782 3 79.00 mm[Hg] - Sitting 154.00 mm[Hg] - Sitting 97.40 Oral 76.00/ min 18.00/min 1 15205 6 921 07324 1 84859 6 163.00 NI 921 04489 9 56.00 mm[Hg] - Sitting 172.00 mm[Hg] - Sitting 97.60 Oral 92.00 % 84.00/ min 62890 921 91791 0 163.00 NI 921 32391 5 56.00 mm[Hg] - Sitting 172.00 mm[Hg] - Sitting 97.60 Ear 84.00/ min 18.00/min 71281 921 08219 0 56.00 mm[Hg] - Sitting 172.00 mm[Hg] - Sitting 97.60 Oral 84.00/ min 18.00/min 90842 922 29928 0 71.00 mm[Hg] - Sitting 108.00 mm[Hg] - Sitting 97.80 Ear 90.00 % 88.00/ min 923 81713 3 167.00 NI 928 53311 0 71.00 mm[Hg] - Sitting 108.00 mm[Hg] - Sitting 167.00 NI 97.80 Oral 88.00/ min 928 84790 8 167.00 NI 929 17193 5 173.00 NI Immunizations Vaccine Date Status COVID-19 09/11/2020 Completed COVID-19 10/08/2020 Completed COVID-19 12/16/2022 Completed Influenza 03/21/2022 Completed (PCV13)Pneumococcal 04/19/2017 Completed (PPSV23)Pneumococcal 02/08/2019 Completed Shingles 10/02/2021 Completed Tetanus 04/07/2011 Completed H1N1 08/07/2009 Completed Shingles 2 04/10/2022 Completed
--- OUTSIDE RECORDS SUMMARY | 2023-05-02 05:06 | External Medical Summary | Continuity Of Care Document ---
Author Name Unknown Address [address] [place] [address] Organization [facility] ( ) Care Team Providers Care Shank Inspector Name Role Phone Maximo Taylor Primary Care Provider [phone] Problems Code Description Start Date End Date [...] Temperature SpO2 Blood Sugar Pulse Respirations 907 20607 8 87.00 mm[Hg] - Sitting 134.00 mm[Hg] - Sitting 180.00 NI 97.50 Ear 95.00 % 20.00/min 10782 907 82199 3 87.00 mm[Hg] - Sitting 134.00 mm[Hg] - Sitting 97.50 Oral 76.00/ min 20.00/min 00181 908 70759 7 89030 908 57749 0 73.00 mm[Hg] - Sitting 130.00 mm[Hg] - Sitting 97.20 Ear 82.00/ min 59047 908 57413 4 87.00 mm[Hg] - Sitting 134.00 mm[Hg] - Sitting 97.50 Ear 76.00/ min 18.00/min 23800 908 73380 0 97.50 Oral 12055 908 12793 8 87.00 mm[Hg] - Sitting 134.00 mm[Hg] - Sitting 18.00/min 73690 908 67119 6 97.90 Ear 38355 909 80934 5 76770 909 19748 2 44846 909 64770 1 73.00 mm[Hg] - Sitting 130.00 mm[Hg] - Sitting 97.20 Ear 91.00 % 82.00/ min 73675 909 88716 1 97.60 Ear 73240 909 43393 2 97.40 Ear 27556 910 90880 4 97.30 Ear 49249 910 23872 4 98.00 Ear 68157 910 26711 1 89.00 mm[Hg] - Sitting 185.00 mm[Hg] - Sitting 98.00 Ear 92.00 % 81.00/ min 77464 910 18742 9 97.30 Ear 51851 911 27947 8 75.00 mm[Hg] - Sitting 147.00 mm[Hg] - Sitting 97.20 Ear 90.00 % 81.00/ min 24061 912 49772 2 80.00 mm[Hg] - Sitting 150.00 mm[Hg] - Sitting 97.80 Ear 93.00 % 78.00/ min 19964 912 92134 9 75.00 mm[Hg] - Sitting 135.00 mm[Hg] - Sitting 97.80 Oral 91.00 % 81.00/ min 17646 914 97624 0 79.00 mm[Hg] - Sitting 162.00 mm[Hg] - Sitting 97.40 Ear 93.00 % 81.00/ min 05769 914 79631 8 180.00 NI 71736 915 27727 0 79.00 mm[Hg] - Sitting 114.00 mm[Hg] - Sitting 97.80 Ear 92.00 % 81.00/ min 915 16583 3 79.00 mm[Hg] - Sitting 116.00 mm[Hg] - Sitting 97.20 Ear 90.00 % 87.00/ min 915 43307 0 96.00 % 93436 9 64.00 mm[Hg] - Lying Down 127.00 mm[Hg] - Lying Down 98.20 Ear 84.00/ min 6 09028 2 87.00 mm[Hg] - Sitting 168.00 mm[Hg] - Sitting 97.80 Oral 92.00 % 86.00/ min 7 04348 5 67.00 mm[Hg] - Sitting 147.00 mm[Hg] - Sitting 97.30 Ear 91.00 % 87.00/ min 45916 5 96.00 % 42865 8 76.00 mm[Hg] - Sitting 166.00 mm[Hg] - Sitting 97.60 Ear 90.00 % 76.00/ min 917 99786 0 74.00 mm[Hg] - Sitting 141.00 mm[Hg] - Sitting 97.60 X-Other 93.00 % 80.00/ min 919 49811 4 74.00 mm[Hg] - Sitting 166.00 mm[Hg] - Sitting 98.40 Oral 93.00 % 80.00/ min 919 02072 3 156.00 NI 66293 6 79.00 mm[Hg] - Sitting 154.00 mm[Hg] - Sitting 97.40 Ear 90.00 % 76.00/ min 0 31289 1 172.20 NI 920 03873 5 920 15661 3 79.00 mm[Hg] - Sitting 154.00 mm[Hg] - Sitting 97.40 Oral 76.00/ min 18.00/min 1 18924 6 921 94700 1 63938 6 163.00 NI 921 48391 9 56.00 mm[Hg] - Sitting 172.00 mm[Hg] - Sitting 97.60 Oral 92.00 % 84.00/ min 19436 921 44363 0 163.00 NI 921 45255 5 56.00 mm[Hg] - Sitting 172.00 mm[Hg] - Sitting 97.60 Ear 84.00/ min 18.00/min 70183 921 13006 0 56.00 mm[Hg] - Sitting 172.00 mm[Hg] - Sitting 97.60 Oral 84.00/ min 18.00/min 16310 922 79664 0 71.00 mm[Hg] - Sitting 108.00 mm[Hg] - Sitting 97.80 Ear 90.00 % 88.00/ min 923 75228 3 167.00 NI 928 66360 0 71.00 mm[Hg] - Sitting 108.00 mm[Hg] - Sitting 167.00 NI 97.80 Oral 88.00/ min 928 62548 8 167.00 NI 929 21893 5 173.00 NI Immunizations Vaccine Date Status COVID-19 09/11/2020 Completed COVID-19 10/08/2020 Completed COVID-19 12/16/2022 Completed Influenza 03/21/2022 Completed (PCV13)Pneumococcal 04/19/2017 Completed (PPSV23)Pneumococcal 02/08/2019 Completed Shingles 10/02/2021 Completed Tetanus 04/07/2011 Completed H1N1 08/07/2009 Completed Shingles 2 04/10/2022 Completed
--- OUTSIDE RECORDS SUMMARY | 2023-05-02 05:06 | External Medical Summary | Continuity Of Care Document ---
Author Name Unknown Address [address] [place] [address] Organization [facility]) Care Team Providers Care Manager Training And Development Name Role Phone Maximo Taylor Primary Care Provider [phone] Problems Code Description Start Date End Date [...] Temperature SpO2 Blood Sugar Pulse Respirations 907 08931 8 87.00 mm[Hg] - Sitting 134.00 mm[Hg] - Sitting 180.00 NI 97.50 Ear 95.00 % 20.00/min 33382 907 22189 3 87.00 mm[Hg] - Sitting 134.00 mm[Hg] - Sitting 97.50 Oral 76.00/ min 20.00/min 48071 908 36286 7 21989 908 66071 0 73.00 mm[Hg] - Sitting 130.00 mm[Hg] - Sitting 97.20 Ear 82.00/ min 20718 908 70927 4 87.00 mm[Hg] - Sitting 134.00 mm[Hg] - Sitting 97.50 Ear 76.00/ min 18.00/min 38217 908 34845 0 97.50 Oral 84603 908 36630 8 87.00 mm[Hg] - Sitting 134.00 mm[Hg] - Sitting 18.00/min 51484 908 11195 6 97.90 Ear 34813 909 47216 5 19842 909 87527 2 54955 909 48537 1 73.00 mm[Hg] - Sitting 130.00 mm[Hg] - Sitting 97.20 Ear 91.00 % 82.00/ min 20271 909 59990 1 97.60 Ear 17040 909 16200 2 97.40 Ear 04122 910 06126 4 97.30 Ear 24886 910 48653 4 98.00 Ear 43277 910 74890 1 89.00 mm[Hg] - Sitting 185.00 mm[Hg] - Sitting 98.00 Ear 92.00 % 81.00/ min 43147 910 62633 9 97.30 Ear 12933 911 46939 8 75.00 mm[Hg] - Sitting 147.00 mm[Hg] - Sitting 97.20 Ear 90.00 % 81.00/ min 97866 912 15120 2 80.00 mm[Hg] - Sitting 150.00 mm[Hg] - Sitting 97.80 Ear 93.00 % 78.00/ min 16140 912 12286 9 75.00 mm[Hg] - Sitting 135.00 mm[Hg] - Sitting 97.80 Oral 91.00 % 81.00/ min 15758 914 97916 0 79.00 mm[Hg] - Sitting 162.00 mm[Hg] - Sitting 97.40 Ear 93.00 % 81.00/ min 20996 914 81644 8 180.00 NI 94902 915 24656 0 79.00 mm[Hg] - Sitting 114.00 mm[Hg] - Sitting 97.80 Ear 92.00 % 81.00/ min 915 52885 3 79.00 mm[Hg] - Sitting 116.00 mm[Hg] - Sitting 97.20 Ear 90.00 % 87.00/ min 915 18927 0 96.00 % 86622 9 64.00 mm[Hg] - Lying Down 127.00 mm[Hg] - Lying Down 98.20 Ear 84.00/ min 6 88713 2 87.00 mm[Hg] - Sitting 168.00 mm[Hg] - Sitting 97.80 Oral 92.00 % 86.00/ min 7 93951 5 67.00 mm[Hg] - Sitting 147.00 mm[Hg] - Sitting 97.30 Ear 91.00 % 87.00/ min 09246 5 96.00 % 89656 8 76.00 mm[Hg] - Sitting 166.00 mm[Hg] - Sitting 97.60 Ear 90.00 % 76.00/ min 917 20835 0 74.00 mm[Hg] - Sitting 141.00 mm[Hg] - Sitting 97.60 X-Other 93.00 % 80.00/ min 919 57717 4 74.00 mm[Hg] - Sitting 166.00 mm[Hg] - Sitting 98.40 Oral 93.00 % 80.00/ min 919 13500 3 156.00 NI 91426 6 79.00 mm[Hg] - Sitting 154.00 mm[Hg] - Sitting 97.40 Ear 90.00 % 76.00/ min 0 35545 1 172.20 NI 920 07490 5 920 72432 3 79.00 mm[Hg] - Sitting 154.00 mm[Hg] - Sitting 97.40 Oral 76.00/ min 18.00/min 1 52566 6 921 60790 1 37109 6 163.00 NI 921 72535 9 56.00 mm[Hg] - Sitting 172.00 mm[Hg] - Sitting 97.60 Oral 92.00 % 84.00/ min 70877 921 04753 0 163.00 NI 921 55110 5 56.00 mm[Hg] - Sitting 172.00 mm[Hg] - Sitting 97.60 Ear 84.00/ min 18.00/min 65353 921 06830 0 56.00 mm[Hg] - Sitting 172.00 mm[Hg] - Sitting 97.60 Oral 84.00/ min 18.00/min 91031 922 91909 0 71.00 mm[Hg] - Sitting 108.00 mm[Hg] - Sitting 97.80 Ear 90.00 % 88.00/ min 923 01322 3 167.00 NI 928 59157 0 71.00 mm[Hg] - Sitting 108.00 mm[Hg] - Sitting 167.00 NI 97.80 Oral 88.00/ min 928 73885 8 167.00 NI 929 21983 5 173.00 NI Immunizations Vaccine Date Status COVID-19 09/11/2020 Completed COVID-19 10/08/2020 Completed COVID-19 12/16/2022 Completed Influenza 03/21/2022 Completed (PCV13)Pneumococcal 04/19/2017 Completed (PPSV23)Pneumococcal 02/08/2019 Completed Shingles 10/02/2021 Completed Tetanus 04/07/2011 Completed H1N1 08/07/2009 Completed Shingles 2 04/10/2022 Completed
--- OUTSIDE RECORDS SUMMARY | 2023-05-02 05:06 | External Medical Summary | Continuity Of Care Document ---
Author Name Unknown Address [address] [place] [address] Organization [facility]) Care Team Providers Care Kapok Machine Operator Name Role Phone Maximo Taylor Primary Care Provider [phone] Problems Code Description Start Date End Date [...] Temperature SpO2 Blood Sugar Pulse Respirations 907 15327 8 87.00 mm[Hg] - Sitting 134.00 mm[Hg] - Sitting 180.00 NI 97.50 Ear 95.00 % 20.00/min 57675 907 50313 3 87.00 mm[Hg] - Sitting 134.00 mm[Hg] - Sitting 97.50 Oral 76.00/ min 20.00/min 30724 908 90107 7 76932 908 65969 0 73.00 mm[Hg] - Sitting 130.00 mm[Hg] - Sitting 97.20 Ear 82.00/ min 15770 908 19853 4 87.00 mm[Hg] - Sitting 134.00 mm[Hg] - Sitting 97.50 Ear 76.00/ min 18.00/min 44383 908 30487 0 97.50 Oral 61026 908 82755 8 87.00 mm[Hg] - Sitting 134.00 mm[Hg] - Sitting 18.00/min 65232 908 28182 6 97.90 Ear 79712 909 79439 5 22252 909 86529 2 92451 909 19221 1 73.00 mm[Hg] - Sitting 130.00 mm[Hg] - Sitting 97.20 Ear 91.00 % 82.00/ min 23345 909 17211 1 97.60 Ear 40150 909 84178 2 97.40 Ear 57562 910 40075 4 97.30 Ear 44219 910 34641 4 98.00 Ear 94608 910 69903 1 89.00 mm[Hg] - Sitting 185.00 mm[Hg] - Sitting 98.00 Ear 92.00 % 81.00/ min 97990 910 55352 9 97.30 Ear 73995 911 79967 8 75.00 mm[Hg] - Sitting 147.00 mm[Hg] - Sitting 97.20 Ear 90.00 % 81.00/ min 93549 912 48940 2 80.00 mm[Hg] - Sitting 150.00 mm[Hg] - Sitting 97.80 Ear 93.00 % 78.00/ min 65677 912 72592 9 75.00 mm[Hg] - Sitting 135.00 mm[Hg] - Sitting 97.80 Oral 91.00 % 81.00/ min 43085 914 42967 0 79.00 mm[Hg] - Sitting 162.00 mm[Hg] - Sitting 97.40 Ear 93.00 % 81.00/ min 34148 914 04874 8 180.00 NI 33977 915 64680 0 79.00 mm[Hg] - Sitting 114.00 mm[Hg] - Sitting 97.80 Ear 92.00 % 81.00/ min 915 38904 3 79.00 mm[Hg] - Sitting 116.00 mm[Hg] - Sitting 97.20 Ear 90.00 % 87.00/ min 915 54291 0 96.00 % 23126 9 64.00 mm[Hg] - Lying Down 127.00 mm[Hg] - Lying Down 98.20 Ear 84.00/ min 6 68200 2 87.00 mm[Hg] - Sitting 168.00 mm[Hg] - Sitting 97.80 Oral 92.00 % 86.00/ min 7 38391 5 67.00 mm[Hg] - Sitting 147.00 mm[Hg] - Sitting 97.30 Ear 91.00 % 87.00/ min 84969 5 96.00 % 98658 8 76.00 mm[Hg] - Sitting 166.00 mm[Hg] - Sitting 97.60 Ear 90.00 % 76.00/ min 917 18567 0 74.00 mm[Hg] - Sitting 141.00 mm[Hg] - Sitting 97.60 X-Other 93.00 % 80.00/ min 919 23215 4 74.00 mm[Hg] - Sitting 166.00 mm[Hg] - Sitting 98.40 Oral 93.00 % 80.00/ min 919 89900 3 156.00 [place] [address] 6 79.00 mm[Hg] - Sitting 154.00 mm[Hg] - Sitting 97.40 Ear 90.00 % 76.00/ min 0 01812 1 172.20 NI 920 85459 5 920 27468 3 79.00 mm[Hg] - Sitting 154.00 mm[Hg] - Sitting 97.40 Oral 76.00/ min 18.00/min 1 76377 6 921 90239 1 47269 6 163.00 NI 921 95729 9 56.00 mm[Hg] - Sitting 172.00 mm[Hg] - Sitting 97.60 Oral 92.00 % 84.00/ min 83149 921 68534 0 163.00 NI 921 49958 5 56.00 mm[Hg] - Sitting 172.00 mm[Hg] - Sitting 97.60 Ear 84.00/ min 18.00/min 48803 921 36432 0 56.00 mm[Hg] - Sitting 172.00 mm[Hg] - Sitting 97.60 Oral 84.00/ min 18.00/min 28842 922 86444 0 71.00 mm[Hg] - Sitting 108.00 mm[Hg] - Sitting 97.80 Ear 90.00 % 88.00/ min 923 20994 3 167.00 NI 928 50360 0 71.00 mm[Hg] - Sitting 108.00 mm[Hg] - Sitting 167.00 NI 97.80 Oral 88.00/ min 928 48395 8 167.00 NI 929 33536 5 173.00 NI Immunizations Vaccine Date Status COVID-19 09/11/2020 Completed COVID-19 10/08/2020 Completed COVID-19 12/16/2022 Completed Influenza 03/21/2022 Completed (PCV13)Pneumococcal 04/19/2017 Completed (PPSV23)Pneumococcal 02/08/2019 Completed Shingles 10/02/2021 Completed Tetanus 04/07/2011 Completed H1N1 08/07/2009 Completed Shingles 2 04/10/2022 Completed
--- OUTSIDE RECORDS SUMMARY | 2023-05-02 05:06 | External Medical Summary | Continuity Of Care Document ---
Author Name Unknown Address [address] [place] [address] Organization [facility] ( ) Care Team Providers Care Electronic Device Repairer Name Role Phone Maximo Taylor Primary Care Provider [phone] Problems Code Description Start Date End Date [...] Temperature SpO2 Blood Sugar Pulse Respirations 907 11380 8 87.00 mm[Hg] - Sitting 134.00 mm[Hg] - Sitting 180.00 NI 97.50 Ear 95.00 % 20.00/min 64928 907 08891 3 87.00 mm[Hg] - Sitting 134.00 mm[Hg] - Sitting 97.50 Oral 76.00/ min 20.00/min 54392 908 63548 7 99365 908 90367 0 73.00 mm[Hg] - Sitting 130.00 mm[Hg] - Sitting 97.20 Ear 82.00/ min 08961 908 77352 4 87.00 mm[Hg] - Sitting 134.00 mm[Hg] - Sitting 97.50 Ear 76.00/ min 18.00/min 95141 908 35190 0 97.50 Oral 70860 908 37595 8 87.00 mm[Hg] - Sitting 134.00 mm[Hg] - Sitting 18.00/min 36699 908 36058 6 97.90 Ear 06499 909 55656 5 75912 909 30611 2 38206 909 37303 1 73.00 mm[Hg] - Sitting 130.00 mm[Hg] - Sitting 97.20 Ear 91.00 % 82.00/ min 49380 909 35504 1 97.60 Ear 75639 909 22150 2 97.40 Ear 28040 910 28006 4 97.30 Ear 75888 910 13529 4 98.00 Ear 73941 910 54373 1 89.00 mm[Hg] - Sitting 185.00 mm[Hg] - Sitting 98.00 Ear 92.00 % 81.00/ min 32178 910 73068 9 97.30 Ear 96408 911 09504 8 75.00 mm[Hg] - Sitting 147.00 mm[Hg] - Sitting 97.20 Ear 90.00 % 81.00/ min 88218 912 95651 2 80.00 mm[Hg] - Sitting 150.00 mm[Hg] - Sitting 97.80 Ear 93.00 % 78.00/ min 75018 912 47911 9 75.00 mm[Hg] - Sitting 135.00 mm[Hg] - Sitting 97.80 Oral 91.00 % 81.00/ min 43619 914 02666 0 79.00 mm[Hg] - Sitting 162.00 mm[Hg] - Sitting 97.40 Ear 93.00 % 81.00/ min 99331 914 77115 8 180.00 NI 73536 915 80424 0 79.00 mm[Hg] - Sitting 114.00 mm[Hg] - Sitting 97.80 Ear 92.00 % 81.00/ min 915 99551 3 79.00 mm[Hg] - Sitting 116.00 mm[Hg] - Sitting 97.20 Ear 90.00 % 87.00/ min 915 48293 0 96.00 % 11307 9 64.00 mm[Hg] - Lying Down 127.00 mm[Hg] - Lying Down 98.20 Ear 84.00/ min 6 74888 2 87.00 mm[Hg] - Sitting 168.00 mm[Hg] - Sitting 97.80 Oral 92.00 % 86.00/ min 7 27979 5 67.00 mm[Hg] - Sitting 147.00 mm[Hg] - Sitting 97.30 Ear 91.00 % 87.00/ min 00181 5 96.00 % 06395 8 76.00 mm[Hg] - Sitting 166.00 mm[Hg] - Sitting 97.60 Ear 90.00 % 76.00/ min 917 22743 0 74.00 mm[Hg] - Sitting 141.00 mm[Hg] - Sitting 97.60 X-Other 93.00 % 80.00/ min 919 39390 4 74.00 mm[Hg] - Sitting 166.00 mm[Hg] - Sitting 98.40 Oral 93.00 % 80.00/ min 919 18554 3 156.00 NI 25368 6 79.00 mm[Hg] - Sitting 154.00 mm[Hg] - Sitting 97.40 Ear 90.00 % 76.00/ min 0 14611 1 172.20 NI 920 24940 5 920 07095 3 79.00 mm[Hg] - Sitting 154.00 mm[Hg] - Sitting 97.40 Oral 76.00/ min 18.00/min 1 94344 6 921 38261 1 06904 6 163.00 NI 921 06892 9 56.00 mm[Hg] - Sitting 172.00 mm[Hg] - Sitting 97.60 Oral 92.00 % 84.00/ min 85154 921 98261 0 163.00 NI 921 32815 5 56.00 mm[Hg] - Sitting 172.00 mm[Hg] - Sitting 97.60 Ear 84.00/ min 18.00/min 70041 921 61395 0 56.00 mm[Hg] - Sitting 172.00 mm[Hg] - Sitting 97.60 Oral 84.00/ min 18.00/min 20201 922 41603 0 71.00 mm[Hg] - Sitting 108.00 mm[Hg] - Sitting 97.80 Ear 90.00 % 88.00/ min 923 61059 3 167.00 NI 928 30528 0 71.00 mm[Hg] - Sitting 108.00 mm[Hg] - Sitting 167.00 NI 97.80 Oral 88.00/ min 928 09663 8 167.00 NI 929 26017 5 173.00 NI Immunizations Vaccine Date Status COVID-19 09/11/2020 Completed COVID-19 10/08/2020 Completed COVID-19 12/16/2022 Completed Influenza 03/21/2022 Completed (PCV13)Pneumococcal 04/19/2017 Completed (PPSV23)Pneumococcal 02/08/2019 Completed Shingles 10/02/2021 Completed Tetanus 04/07/2011 Completed H1N1 08/07/2009 Completed Shingles 2 04/10/2022 Completed
--- OUTSIDE RECORDS SUMMARY | 2023-05-02 05:07 | External Medical Summary | Continuity Of Care Document ---
Author Name Unknown Address [address] [place] [address] Organization [facility] ( ) Care Team Providers Care Mechanism Inspector Name Role Phone Tl Taylorcarolina Primary Care Provider [phone] VITAL SIGNS Date Time Diastolic blood pressure Systolic blood pressure Body height Body weight Temperature SpO2 Blood Sugar Pulse Respirations 22695 907 59741 8 87.00 mm[Hg] - Sitting 134.00 mm[Hg] - Sitting 180.00 NI 97.50 Ear 95.00 % 20.00/min 44804 907 98940 3 87.00 mm[Hg] - Sitting 134.00 mm[Hg] - Sitting 97.50 Oral 76.00/ min 20.00/min 03901 908 58465 7 02559 908 19287 0 73.00 mm[Hg] - Sitting 130.00 mm[Hg] - Sitting 97.20 Ear 82.00/ min 82336 908 80953 4 87.00 mm[Hg] - Sitting 134.00 mm[Hg] - Sitting 97.50 Ear 76.00/ min 18.00/min 36541 908 35629 0 97.50 Oral 20970 908 74318 8 87.00 mm[Hg] - Sitting 134.00 mm[Hg] - Sitting 18.00/min 34176 908 88716 6 97.90 Ear 70691 909 93827 5 45352 909 43447 2 46409 909 67565 1 73.00 mm[Hg] - Sitting 130.00 mm[Hg] - Sitting 97.20 Ear 91.00 % 82.00/ min 79225 909 60660 1 97.60 Ear 25658 909 63107 2 97.40 Ear 18781 910 37492 4 97.30 Ear 99837 910 33970 4 98.00 Ear 80900 910 61813 1 89.00 mm[Hg] - Sitting 185.00 mm[Hg] - Sitting 98.00 Ear 92.00 % 81.00/ min 30551 910 31333 9 97.30 Ear 25591 911 51115 8 75.00 mm[Hg] - Sitting 147.00 mm[Hg] - Sitting 97.20 Ear 90.00 % 81.00/ min 912 88134 2 80.00 mm[Hg] - Sitting 150.00 mm[Hg] - Sitting 97.80 Ear 93.00 % 78.00/ min 912 48306 9 75.00 mm[Hg] - Sitting 135.00 mm[Hg] - Sitting 97.80 Oral 91.00 % 81.00/ min 4 81879 0 79.00 mm[Hg] - Sitting 162.00 mm[Hg] - Sitting 97.40 Ear 93.00 % 81.00/ min 4 19476 8 180.00 NI 915 15420 0 79.00 mm[Hg] - Sitting 114.00 mm[Hg] - Sitting 97.80 Ear 92.00 % 81.00/ min 915 76785 3 79.00 mm[Hg] - Sitting 116.00 mm[Hg] - Sitting 97.20 Ear 90.00 % 87.00/ min 915 51423 0 96.00 % 6 02793 9 64.00 mm[Hg] - Lying Down 127.00 mm[Hg] - Lying Down 98.20 Ear 84.00/ min 916 53669 2 87.00 mm[Hg] - Sitting 168.00 mm[Hg] - Sitting 97.80 Oral 92.00 % 86.00/ min 7 44784 5 67.00 mm[Hg] - Sitting 147.00 mm[Hg] - Sitting 97.30 Ear 91.00 % 87.00/ min 7 45239 5 96.00 % 7 39911 8 76.00 mm[Hg] - Sitting 166.00 mm[Hg] - Sitting 97.60 Ear 90.00 % 76.00/ min 917 31215 0 74.00 mm[Hg] - Sitting 141.00 mm[Hg] - Sitting 97.60 X-Other 93.00 % 80.00/ min 919 89884 4 74.00 mm[Hg] - Sitting 166.00 mm[Hg] - Sitting 98.40 Oral 93.00 % 80.00/ min 9 49152 3 156.00 NI 68946 6 79.00 mm[Hg] - Sitting 154.00 mm[Hg] - Sitting 97.40 Ear 90.00 % 76.00/ min 79313 1 172.20 NI 27798 5 33358 3 79.00 mm[Hg] - Sitting 154.00 mm[Hg] - Sitting 97.40 Oral 76.00/ min 18.00/min 38073 6 40749 1 75946 6 163.00 NI 62249 9 56.00 mm[Hg] - Sitting 172.00 mm[Hg] - Sitting 97.60 Oral 92.00 % 84.00/ min 70030 0 163.00 NI 12336 5 56.00 mm[Hg] - Sitting 172.00 mm[Hg] - Sitting 97.60 Ear 84.00/ min 18.00/min 921 07357 0 56.00 mm[Hg] - Sitting 172.00 mm[Hg] - Sitting 97.60 Oral 84.00/ min 18.00/min 2 58856 0 71.00 mm[Hg] - Sitting 108.00 mm[Hg] - Sitting 97.80 Ear 90.00 % 88.00/ min 3 12182 3 167.00 NI Immunizations Vaccine Date Status COVID-19 09/11/2020 Completed COVID-19 10/08/2020 Completed COVID-19 12/16/2022 Completed Influenza 03/21/2022 Completed (PCV13)Pneumococcal 04/19/2017 Completed (PPSV23)Pneumococcal 02/08/2019 Completed Shingles 10/02/2021 Completed Tetanus 04/07/2011 Completed H1N1 08/07/2009 Completed Shingles 2 04/10/2022 Completed
--- OUTSIDE RECORDS SUMMARY | 2023-05-02 05:07 | External Medical Summary | Summary of Care ---
Author Name Unknown Organization [facility] Address [address] [place] [address] Phone [phone] Care Team Providers Care Preparation Supervisor Name Role Phone Avtar Dominguez Primary Care Provider [phone] Reason for Visit * Reason Onset Date Comments Alf Visit 03/19/2023 Encounter Details Date Type Department Care Team Description 03/16/2023 Alf Visit [facility] [address] [place] [address] Brianna Orozco PA-C [address] [place] [address] Alcoholic cirrhosis of liver with ascites (HCC)*; Moderate late onset Alzheimer's dementia without behavioral disturbance, psychotic disturbance, mood disturbance, or anxiety (HCC); ESRD on dialysis (HCC); Anemia in chronic kidney disease, on chronic dialysis (HCC); COPD, moderate (HCC) Allergies No known active allergiesdocumented as of this encounter (statuses as of 03/19/2023) Medications Medication Sig Dispensed Refills Start Date [...] cut, crush or chew 0 01/21/2023 Active [place] Caps 1 MG Oral Capsule Take 1 [...] as of this encounter (statuses as of 03/19/2023) Active Problems Problem Noted Date 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 Ascites due to alcoholic [...] 08/2022 Primary insomnia 01/21/2023 Pruritic condition 01/21/2023 Moderate late onset Alzheime r's dementia without behavioral disturbance, psychotic disturbance, mood [...] as of this encounter (statuses as of 03/19/2023) Social History Tobacco Use Types Packs/Day Years [...] Selby DO [address] [place] [address] Health Maintenance Due Date Last Done Comments Pneumococcal Vaccine: 65+ Years (1 - PCV) 1956 Depression Screening 1962 Alpha-1 Antitrypsin 1968 Hepatitis C Screening 1968 O2 ASSESSMENT COMPLETED IN PAST YEAR FOR COPD 1968 Zoster Vaccines (1 of 2) 1969 Cologuard 1995 Colonoscopy 1995 Colorectal Cancer Screening 1995 Fecal Occult Blood Test 1995 Sigmoidoscopy 1995 LUNG CANCER SCREENING - USE SMARTSET 45325 2000 Hepatitis B (1 of 3 - Risk 3-dose series) 2010 AAA Screening 2015 COVID-19 Vaccine (3 - Pfizer series) 12/13/2020 10/18/2020, 09/19/2020 *COPD SEVERITY VERIFIED BY PFT 01/23/2023 *CXR OR CT FOR COPD EVER 01/23/2023 Influenza Vaccine (FLU shot) (#1) 2023 DTaP,Tdap,and [...] ascites (HCC)- Primary Alcoholic cirrhosis of liver Moderate late onset Alzheimer's dementia without behavioral disturbance, psychotic disturbance, mood disturbance, or anxiety (HCC) ESRD on dialysis (HCC) End stage renal disease Anemia in chronic kidney disease, on chronic dialysis (HCC) COPD, moderate (HCC) Chronic airway obstruction, not elsewhere classified documented in this encounter Care Teams Preparation Supervisor Relationship Specialty Start Date End Date Jona Dominguez DO PCP - General 08/13/05 documented as of this encounter
--- OUTSIDE RECORDS SUMMARY | 2023-05-02 05:07 | External Medical Summary | Summary of Care ---
Author Name Unknown Organization [facility] Address [address] [place] [address] Phone [phone] Care Team Providers Care Roadmaster Name Role Phone Avtar Dominguez Primary Care Provider [phone] Reason for Visit * Reason Onset Date Comments [facility] Visit 03/10/2023 Encounter Details Date Type Department Care Team Description 03/10/2023 [facility] Visit [facility] [address] [place] [address] Brianna Orozco PA-C [address] [place] [address] Alcoholic cirrhosis of liver with ascites (HCC)*; ESRD on dialysis (HCC); Anemia in chronic kidney disease, on chronic dialysis (HCC); COPD, moderate (HCC); Moderate late onset Alzheimer's dementia without behavioral disturbance, psychotic disturbance, mood disturbance, or anxiety (HCC) Allergies No known active allergiesdocumented as of this encounter (statuses as of 03/10/2023) Medications Medication Sig Dispensed Refills Start Date [...] cut, crush or chew 0 01/21/2023 Active [place] Caps 1 MG Oral Capsule Take 1 [...] as of this encounter (statuses as of 03/10/2023) Active Problems Problem Noted Date Urothelial lesion [...] as of this encounter (statuses as of 03/10/2023) Social History Tobacco Use Types Packs/Day Years [...] Selby DO [address] [place] [address] Health Maintenance Due Date Last Done Comments Pneumococcal Vaccine: 65+ Years (1 - PCV) 1956 Depression Screening 1962 Alpha-1 Antitrypsin 1968 Hepatitis C Screening 1968 O2 ASSESSMENT COMPLETED IN PAST YEAR FOR COPD 1968 Zoster Vaccines (1 of 2) 1969 Cologuard 1995 Colonoscopy 1995 Colorectal Cancer Screening 1995 Fecal Occult Blood Test 1995 Sigmoidoscopy 1995 LUNG CANCER SCREENING - USE SMARTSET 71636 2000 Hepatitis B (1 of 3 - [...] ascites (HCC)- Primary Alcoholic cirrhosis of liver ESRD on dialysis (HCC) End stage renal disease Anemia in chronic kidney disease, on chronic dialysis (HCC) COPD, moderate (HCC) Chronic airway obstruction, not elsewhere classified Moderate late onset Alzheimer's dementia without behavioral disturbance, psychotic disturbance, mood disturbance, or anxiety (HCC) documented in this encounter Care Teams Roadmaster Relationship Specialty Start Date End Date Jona Dominguez DO PCP - General 08/13/05 documented as of this encounter
--- OUTSIDE RECORDS SUMMARY | 2023-05-02 05:07 | External Medical Summary | Continuity Of Care Document ---
Author Name Unknown Address [address] [place] [address] Organization [facility] ( ) Care Team Providers Care Bagging Salvager Name Role Phone Tl Taylorcarolina Primary Care Provider [phone] VITAL SIGNS Date Time Diastolic blood pressure Systolic blood pressure Body height Body weight Temperature SpO2 Blood Sugar Pulse Respirations 19620 907 59563 8 87.00 mm[Hg] - Sitting 134.00 mm[Hg] - Sitting 180.00 NI 97.50 Ear 95.00 % 20.00/min 86606 907 37196 3 87.00 mm[Hg] - Sitting 134.00 mm[Hg] - Sitting 97.50 Oral 76.00/ min 20.00/min 88325 908 80267 7 19592 908 69568 0 73.00 mm[Hg] - Sitting 130.00 mm[Hg] - Sitting 97.20 Ear 82.00/ min 69052 908 30825 4 87.00 mm[Hg] - Sitting 134.00 mm[Hg] - Sitting 97.50 Ear 76.00/ min 18.00/min 76997 908 25613 0 97.50 Oral 67571 908 66116 8 87.00 mm[Hg] - Sitting 134.00 mm[Hg] - Sitting 18.00/min 04502 908 04002 6 97.90 Ear 12403 909 24134 5 47009 909 74583 2 98899 909 68849 1 73.00 mm[Hg] - Sitting 130.00 mm[Hg] - Sitting 97.20 Ear 91.00 % 82.00/ min 31977 909 19052 1 97.60 Ear 25249 909 04611 2 97.40 Ear 95288 910 98560 4 97.30 Ear 24777 910 04961 4 98.00 Ear 62652 910 54063 1 89.00 mm[Hg] - Sitting 185.00 mm[Hg] - Sitting 98.00 Ear 92.00 % 81.00/ min 28644 910 15793 9 97.30 Ear 69237 911 33987 8 75.00 mm[Hg] - Sitting 147.00 mm[Hg] - Sitting 97.20 Ear 90.00 % 81.00/ min 912 22584 2 80.00 mm[Hg] - Sitting 150.00 mm[Hg] - Sitting 97.80 Ear 93.00 % 78.00/ min 912 78570 9 75.00 mm[Hg] - Sitting 135.00 mm[Hg] - Sitting 97.80 Oral 91.00 % 81.00/ min 4 68277 0 79.00 mm[Hg] - Sitting 162.00 mm[Hg] - Sitting 97.40 Ear 93.00 % 81.00/ min 4 89904 8 180.00 NI 915 60436 0 79.00 mm[Hg] - Sitting 114.00 mm[Hg] - Sitting 97.80 Ear 92.00 % 81.00/ min 915 66532 3 79.00 mm[Hg] - Sitting 116.00 mm[Hg] - Sitting 97.20 Ear 90.00 % 87.00/ min 915 78557 0 96.00 % 6 94769 9 64.00 mm[Hg] - Lying Down 127.00 mm[Hg] - Lying Down 98.20 Ear 84.00/ min 916 77892 2 87.00 mm[Hg] - Sitting 168.00 mm[Hg] - Sitting 97.80 Oral 92.00 % 86.00/ min 7 70647 5 67.00 mm[Hg] - Sitting 147.00 mm[Hg] - Sitting 97.30 Ear 91.00 % 87.00/ min 7 70868 5 96.00 % 7 25474 8 76.00 mm[Hg] - Sitting 166.00 mm[Hg] - Sitting 97.60 Ear 90.00 % 76.00/ min 917 26072 0 74.00 mm[Hg] - Sitting 141.00 mm[Hg] - Sitting 97.60 X-Other 93.00 % 80.00/ min 919 94228 4 74.00 mm[Hg] - Sitting 166.00 mm[Hg] - Sitting 98.40 Oral 93.00 % 80.00/ min 9 24808 3 156.00 NI 99600 6 79.00 mm[Hg] - Sitting 154.00 mm[Hg] - Sitting 97.40 Ear 90.00 % 76.00/ min 38475 1 172.20 NI 07061 5 97487 3 79.00 mm[Hg] - Sitting 154.00 mm[Hg] - Sitting 97.40 Oral 76.00/ min 18.00/min 82465 6 69328 1 01218 6 163.00 NI 32174 9 56.00 mm[Hg] - Sitting 172.00 mm[Hg] - Sitting 97.60 Oral 92.00 % 84.00/ min 91412 0 163.00 NI 60483 5 56.00 mm[Hg] - Sitting 172.00 mm[Hg] - Sitting 97.60 Ear 84.00/ min 18.00/min 921 45729 0 56.00 mm[Hg] - Sitting 172.00 mm[Hg] - Sitting 97.60 Oral 84.00/ min 18.00/min 2 90064 0 71.00 mm[Hg] - Sitting 108.00 mm[Hg] - Sitting 97.80 Ear 90.00 % 88.00/ min 3 24724 3 167.00 NI Immunizations Vaccine Date Status COVID-19 09/11/2020 Completed COVID-19 10/08/2020 Completed COVID-19 12/16/2022 Completed Influenza 03/21/2022 Completed (PCV13)Pneumococcal 04/19/2017 Completed (PPSV23)Pneumococcal 02/08/2019 Completed Shingles 10/02/2021 Completed Tetanus 04/07/2011 Completed H1N1 08/07/2009 Completed Shingles 2 04/10/2022 Completed
--- OUTSIDE RECORDS SUMMARY | 2023-05-02 05:07 | External Medical Summary | Continuity Of Care Document ---
Author Name Unknown Address [address] [place] [address] Organization [facility] ( ) Care Team Providers Care Straightening Machine Feeder Name Role Phone Tl Taylorcarolina Primary Care Provider [phone] VITAL SIGNS Date Time Diastolic blood pressure Systolic blood pressure Body height Body weight Temperature SpO2 Blood Sugar Pulse Respirations 824 87379 0 60.00 mm[Hg] - Sitting 125.00 mm[Hg] - Sitting 172.00 NI 98.20 Ear 87.00/ min 71012 907 89660 8 87.00 mm[Hg] - Sitting 134.00 mm[Hg] - Sitting 180.00 NI 97.50 Ear 95.00 % 20.00/min 68708 907 90332 3 87.00 mm[Hg] - Sitting 134.00 mm[Hg] - Sitting 97.50 Oral 76.00/ min 20.00/min 88429 908 05359 7 84231 908 41116 0 73.00 mm[Hg] - Sitting 130.00 mm[Hg] - Sitting 97.20 Ear 82.00/ min 04617 908 21241 4 87.00 mm[Hg] - Sitting 134.00 mm[Hg] - Sitting 97.50 Ear 76.00/ min 18.00/min 78629 908 15704 0 97.50 Oral 30454 908 01598 8 87.00 mm[Hg] - Sitting 134.00 mm[Hg] - Sitting 18.00/min 40463 908 52349 6 97.90 Ear 02559 909 46398 5 88365 909 03094 2 76174 909 14213 1 73.00 mm[Hg] - Sitting 130.00 mm[Hg] - Sitting 97.20 Ear 91.00 % 82.00/ min 33434 909 34663 1 97.60 Ear 87751 909 37426 2 97.40 Ear 93147 910 95228 4 97.30 Ear 48896 910 99426 4 98.00 Ear 74104 910 72909 1 89.00 mm[Hg] - Sitting 185.00 mm[Hg] - Sitting 98.00 Ear 92.00 % 81.00/ min 910 00013 9 97.30 Ear 911 32496 8 75.00 mm[Hg] - Sitting 147.00 mm[Hg] - Sitting 97.20 Ear 90.00 % 81.00/ min 912 83737 2 80.00 mm[Hg] - Sitting 150.00 mm[Hg] - Sitting 97.80 Ear 93.00 % 78.00/ min 912 38615 9 75.00 mm[Hg] - Sitting 135.00 mm[Hg] - Sitting 97.80 Oral 91.00 % 81.00/ min 914 31278 0 79.00 mm[Hg] - Sitting 162.00 mm[Hg] - Sitting 97.40 Ear 93.00 % 81.00/ min 4 15646 8 180.00 NI 915 01352 0 79.00 mm[Hg] - Sitting 114.00 mm[Hg] - Sitting 97.80 Ear 92.00 % 81.00/ min 915 94656 3 79.00 mm[Hg] - Sitting 116.00 mm[Hg] - Sitting 97.20 Ear 90.00 % 87.00/ min 915 49878 0 96.00 % 6 89597 9 64.00 mm[Hg] - Lying Down 127.00 mm[Hg] - Lying Down 98.20 Ear 84.00/ min 916 24287 2 87.00 mm[Hg] - Sitting 168.00 mm[Hg] - Sitting 97.80 Oral 92.00 % 86.00/ min 7 03892 5 67.00 mm[Hg] - Sitting 147.00 mm[Hg] - Sitting 97.30 Ear 91.00 % 87.00/ min 7 73912 5 96.00 % 22081 8 76.00 mm[Hg] - Sitting 166.00 mm[Hg] - Sitting 97.60 Ear 90.00 % 76.00/ min 917 39185 0 74.00 mm[Hg] - Sitting 141.00 mm[Hg] - Sitting 97.60 X-Other 93.00 % 80.00/ min 9 78740 4 74.00 mm[Hg] - Sitting 166.00 mm[Hg] - Sitting 98.40 Oral 93.00 % 80.00/ min 919 69727 3 156.00 NI 920 58762 6 79.00 mm[Hg] - Sitting 154.00 mm[Hg] - Sitting 97.40 Ear 90.00 % 76.00/ min 920 42417 1 172.20 NI 920 69863 5 92 66507 3 79.00 mm[Hg] - Sitting 154.00 mm[Hg] - Sitting 97.40 Oral 76.00/ min 18.00/min 921 32507 1 Immunizations Vaccine Date Status COVID-19 09/11/2020 Completed COVID-19 10/08/2020 Completed COVID-19 12/16/2022 Completed Influenza 03/21/2022 Completed (PCV13)Pneumococcal 04/19/2017 Completed (PPSV23)Pneumococcal 02/08/2019 Completed Shingles 10/02/2021 Completed Tetanus 04/07/2011 Completed H1N1 08/07/2009 Completed Shingles 2 04/10/2022 Completed
--- OUTSIDE RECORDS SUMMARY | 2023-05-02 05:07 | External Medical Summary | Summary of Care ---
Author Name Unknown Organization [facility] Address [address] [place] [address] Phone [phone] Care Team Providers Care Agility Instructor Name Role Phone Avtar Dominguez Primary Care Provider [phone] Reason for Visit * Reason Onset Date Comments Skilled Visit 03/12/2023 Encounter Details Date Type Department Care Team Description 03/12/2023 Residential Visit [facility] [address] [place] [address] Brianna Orozco PA-C [address] [place] [address] Alcoholic cirrhosis of liver with ascites (HCC)*; ESRD on dialysis (HCC); Anemia in chronic kidney disease, on chronic dialysis (HCC); COPD, moderate (HCC) Allergies No known active allergiesdocumented as of this encounter (statuses as of 03/12/2023) Medications Medication Sig Dispensed Refills Start Date [...] as of this encounter (statuses as of 03/12/2023) Active Problems Problem Noted Date Urothelial lesion [...] as of this encounter (statuses as of 03/12/2023) Social History Tobacco Use Types Packs/Day Years [...] Selby DO [address] [place] [address] Health Maintenance Due Date Last Done Comments Pneumococcal Vaccine: 65+ Years (1 - PCV) 1956 Depression Screening 1962 Alpha-1 Antitrypsin 1968 Hepatitis C Screening 1968 O2 ASSESSMENT COMPLETED IN PAST YEAR FOR COPD 1968 Zoster Vaccines (1 of 2) 1969 Cologuard 1995 Colonoscopy 1995 Colorectal Cancer Screening 1995 Fecal Occult Blood Test 1995 Sigmoidoscopy 1995 LUNG CANCER SCREENING - USE SMARTSET 06217 2000 Hepatitis B (1 of 3 - [...] classified documented in this encounter Care Teams Agility Instructor Relationship Specialty Start Date End Date Jona Dominguez DO PCP - General 08/13/05 documented as of this encounter
--- OUTSIDE RECORDS SUMMARY | 2023-05-02 05:07 | External Medical Summary | Continuity Of Care Document ---
Author Name Unknown Address [address] [place] [address] Organization [facility] ( ) Care Team Providers Care Speaker Mounter Name Role Phone Tl Taylorcarolina Primary Care Provider [phone] VITAL SIGNS Date Time Diastolic blood pressure Systolic blood pressure Body height Body weight Temperature SpO2 Blood Sugar Pulse Respirations 30121 907 84166 8 87.00 mm[Hg] - Sitting 134.00 mm[Hg] - Sitting 180.00 NI 97.50 Ear 95.00 % 20.00/min 13500 907 14072 3 87.00 mm[Hg] - Sitting 134.00 mm[Hg] - Sitting 97.50 Oral 76.00/ min 20.00/min 10656 908 82424 7 67896 908 39094 0 73.00 mm[Hg] - Sitting 130.00 mm[Hg] - Sitting 97.20 Ear 82.00/ min 24588 908 30853 4 87.00 mm[Hg] - Sitting 134.00 mm[Hg] - Sitting 97.50 Ear 76.00/ min 18.00/min 32217 908 48266 0 97.50 Oral 09352 908 40685 8 87.00 mm[Hg] - Sitting 134.00 mm[Hg] - Sitting 18.00/min 73254 908 72492 6 97.90 Ear 49732 909 19826 5 85034 909 32235 2 48192 909 49504 1 73.00 mm[Hg] - Sitting 130.00 mm[Hg] - Sitting 97.20 Ear 91.00 % 82.00/ min 02846 909 08088 1 97.60 Ear 13723 909 47783 2 97.40 Ear 17758 910 42596 4 97.30 Ear 38167 910 51348 4 98.00 Ear 87297 910 47228 1 89.00 mm[Hg] - Sitting 185.00 mm[Hg] - Sitting 98.00 Ear 92.00 % 81.00/ min 25794 910 38507 9 97.30 Ear 99600 911 68260 8 75.00 mm[Hg] - Sitting 147.00 mm[Hg] - Sitting 97.20 Ear 90.00 % 81.00/ min 912 84644 2 80.00 mm[Hg] - Sitting 150.00 mm[Hg] - Sitting 97.80 Ear 93.00 % 78.00/ min 912 83621 9 75.00 mm[Hg] - Sitting 135.00 mm[Hg] - Sitting 97.80 Oral 91.00 % 81.00/ min 4 24230 0 79.00 mm[Hg] - Sitting 162.00 mm[Hg] - Sitting 97.40 Ear 93.00 % 81.00/ min 4 86230 8 180.00 NI 915 78373 0 79.00 mm[Hg] - Sitting 114.00 mm[Hg] - Sitting 97.80 Ear 92.00 % 81.00/ min 915 47356 3 79.00 mm[Hg] - Sitting 116.00 mm[Hg] - Sitting 97.20 Ear 90.00 % 87.00/ min 915 11127 0 96.00 % 6 28381 9 64.00 mm[Hg] - Lying Down 127.00 mm[Hg] - Lying Down 98.20 Ear 84.00/ min 916 23788 2 87.00 mm[Hg] - Sitting 168.00 mm[Hg] - Sitting 97.80 Oral 92.00 % 86.00/ min 7 32958 5 67.00 mm[Hg] - Sitting 147.00 mm[Hg] - Sitting 97.30 Ear 91.00 % 87.00/ min 7 56555 5 96.00 % 7 30240 8 76.00 mm[Hg] - Sitting 166.00 mm[Hg] - Sitting 97.60 Ear 90.00 % 76.00/ min 917 11596 0 74.00 mm[Hg] - Sitting 141.00 mm[Hg] - Sitting 97.60 X-Other 93.00 % 80.00/ min 919 51598 4 74.00 mm[Hg] - Sitting 166.00 mm[Hg] - Sitting 98.40 Oral 93.00 % 80.00/ min 9 75479 3 156.00 NI 69581 6 79.00 mm[Hg] - Sitting 154.00 mm[Hg] - Sitting 97.40 Ear 90.00 % 76.00/ min 14909 1 172.20 NI 30011 5 21557 3 79.00 mm[Hg] - Sitting 154.00 mm[Hg] - Sitting 97.40 Oral 76.00/ min 18.00/min 32904 6 87126 1 56233 6 163.00 NI 50638 9 56.00 mm[Hg] - Sitting 172.00 mm[Hg] - Sitting 97.60 Oral 92.00 % 84.00/ min 98270 0 163.00 NI 62229 5 56.00 mm[Hg] - Sitting 172.00 mm[Hg] - Sitting 97.60 Ear 84.00/ min 18.00/min 921 16387 0 56.00 mm[Hg] - Sitting 172.00 mm[Hg] - Sitting 97.60 Oral 84.00/ min 18.00/min 2 89639 0 71.00 mm[Hg] - Sitting 108.00 mm[Hg] - Sitting 97.80 Ear 90.00 % 88.00/ min 3 51107 3 167.00 NI Immunizations Vaccine Date Status COVID-19 09/11/2020 Completed COVID-19 10/08/2020 Completed COVID-19 12/16/2022 Completed Influenza 03/21/2022 Completed (PCV13)Pneumococcal 04/19/2017 Completed (PPSV23)Pneumococcal 02/08/2019 Completed Shingles 10/02/2021 Completed Tetanus 04/07/2011 Completed H1N1 08/07/2009 Completed Shingles 2 04/10/2022 Completed
--- OUTSIDE RECORDS SUMMARY | 2023-05-02 05:07 | External Medical Summary | Continuity Of Care Document ---
Author Name Unknown Address [address] [place] [address] Organization [facility] ( ) Care Team Providers Care Fuel Cell Binder Name Role Phone Tl Taylorcarolina Primary Care Provider [phone] VITAL SIGNS Date Time Diastolic blood pressure Systolic blood pressure Body height Body weight Temperature SpO2 Blood Sugar Pulse Respirations 60752 907 55211 8 87.00 mm[Hg] - Sitting 134.00 mm[Hg] - Sitting 180.00 NI 97.50 Ear 95.00 % 20.00/min 34663 907 08947 3 87.00 mm[Hg] - Sitting 134.00 mm[Hg] - Sitting 97.50 Oral 76.00/ min 20.00/min 89255 908 28061 7 60526 908 11318 0 73.00 mm[Hg] - Sitting 130.00 mm[Hg] - Sitting 97.20 Ear 82.00/ min 34982 908 24856 4 87.00 mm[Hg] - Sitting 134.00 mm[Hg] - Sitting 97.50 Ear 76.00/ min 18.00/min 14452 908 74447 0 97.50 Oral 19277 908 80606 8 87.00 mm[Hg] - Sitting 134.00 mm[Hg] - Sitting 18.00/min 65823 908 41869 6 97.90 Ear 67820 909 21541 5 56153 909 22940 2 29253 909 18858 1 73.00 mm[Hg] - Sitting 130.00 mm[Hg] - Sitting 97.20 Ear 91.00 % 82.00/ min 42927 909 86899 1 97.60 Ear 93893 909 88150 2 97.40 Ear 52507 910 89834 4 97.30 Ear 06076 910 22578 4 98.00 Ear 93432 910 65541 1 89.00 mm[Hg] - Sitting 185.00 mm[Hg] - Sitting 98.00 Ear 92.00 % 81.00/ min 09851 910 25092 9 97.30 Ear 00984 911 56312 8 75.00 mm[Hg] - Sitting 147.00 mm[Hg] - Sitting 97.20 Ear 90.00 % 81.00/ min 912 44338 2 80.00 mm[Hg] - Sitting 150.00 mm[Hg] - Sitting 97.80 Ear 93.00 % 78.00/ min 912 64288 9 75.00 mm[Hg] - Sitting 135.00 mm[Hg] - Sitting 97.80 Oral 91.00 % 81.00/ min 4 47205 0 79.00 mm[Hg] - Sitting 162.00 mm[Hg] - Sitting 97.40 Ear 93.00 % 81.00/ min 4 59401 8 180.00 NI 915 80273 0 79.00 mm[Hg] - Sitting 114.00 mm[Hg] - Sitting 97.80 Ear 92.00 % 81.00/ min 915 64717 3 79.00 mm[Hg] - Sitting 116.00 mm[Hg] - Sitting 97.20 Ear 90.00 % 87.00/ min 915 01086 0 96.00 % 6 77674 9 64.00 mm[Hg] - Lying Down 127.00 mm[Hg] - Lying Down 98.20 Ear 84.00/ min 916 31451 2 87.00 mm[Hg] - Sitting 168.00 mm[Hg] - Sitting 97.80 Oral 92.00 % 86.00/ min 7 43396 5 67.00 mm[Hg] - Sitting 147.00 mm[Hg] - Sitting 97.30 Ear 91.00 % 87.00/ min 7 83722 5 96.00 % 7 57916 8 76.00 mm[Hg] - Sitting 166.00 mm[Hg] - Sitting 97.60 Ear 90.00 % 76.00/ min 917 03794 0 74.00 mm[Hg] - Sitting 141.00 mm[Hg] - Sitting 97.60 X-Other 93.00 % 80.00/ min 919 99838 4 74.00 mm[Hg] - Sitting 166.00 mm[Hg] - Sitting 98.40 Oral 93.00 % 80.00/ min 9 97506 3 156.00 NI 17807 6 79.00 mm[Hg] - Sitting 154.00 mm[Hg] - Sitting 97.40 Ear 90.00 % 76.00/ min 65717 1 172.20 NI 14897 5 50641 3 79.00 mm[Hg] - Sitting 154.00 mm[Hg] - Sitting 97.40 Oral 76.00/ min 18.00/min 38527 6 95661 1 63921 6 163.00 NI 62517 9 56.00 mm[Hg] - Sitting 172.00 mm[Hg] - Sitting 97.60 Oral 92.00 % 84.00/ min 40875 0 163.00 NI 62695 5 56.00 mm[Hg] - Sitting 172.00 mm[Hg] - Sitting 97.60 Ear 84.00/ min 18.00/min 921 57704 0 56.00 mm[Hg] - Sitting 172.00 mm[Hg] - Sitting 97.60 Oral 84.00/ min 18.00/min 2 98066 0 71.00 mm[Hg] - Sitting 108.00 mm[Hg] - Sitting 97.80 Ear 90.00 % 88.00/ min 3 52076 3 167.00 NI Immunizations Vaccine Date Status COVID-19 09/11/2020 Completed COVID-19 10/08/2020 Completed COVID-19 12/16/2022 Completed Influenza 03/21/2022 Completed (PCV13)Pneumococcal 04/19/2017 Completed (PPSV23)Pneumococcal 02/08/2019 Completed Shingles 10/02/2021 Completed Tetanus 04/07/2011 Completed H1N1 08/07/2009 Completed Shingles 2 04/10/2022 Completed
--- OUTSIDE RECORDS SUMMARY | 2023-05-02 05:07 | External Medical Summary | Continuity Of Care Document ---
Author Name Unknown Address [address] [place] [address] Organization [facility] ( ) Care Team Providers Care Food And Beverage Manager Name Role Phone Tl Taylorcarolina Primary Care Provider [phone] VITAL SIGNS Date Time Diastolic blood pressure Systolic blood pressure Body height Body weight Temperature SpO2 Blood Sugar Pulse Respirations 824 42732 0 60.00 mm[Hg] - Sitting 125.00 mm[Hg] - Sitting 172.00 NI 98.20 Ear 87.00/ min 50237 907 94594 8 87.00 mm[Hg] - Sitting 134.00 mm[Hg] - Sitting 180.00 NI 97.50 Ear 95.00 % 20.00/min 94791 907 75062 3 87.00 mm[Hg] - Sitting 134.00 mm[Hg] - Sitting 97.50 Oral 76.00/ min 20.00/min 88695 908 28577 7 50654 908 51355 0 73.00 mm[Hg] - Sitting 130.00 mm[Hg] - Sitting 97.20 Ear 82.00/ min 17635 908 56619 4 87.00 mm[Hg] - Sitting 134.00 mm[Hg] - Sitting 97.50 Ear 76.00/ min 18.00/min 17452 908 83925 0 97.50 Oral 01881 908 07872 8 87.00 mm[Hg] - Sitting 134.00 mm[Hg] - Sitting 18.00/min 72466 908 67532 6 97.90 Ear 19316 909 66814 5 85007 909 04828 2 60182 909 43884 1 73.00 mm[Hg] - Sitting 130.00 mm[Hg] - Sitting 97.20 Ear 91.00 % 82.00/ min 66884 909 38902 1 97.60 Ear 46843 909 40543 2 97.40 Ear 48142 910 43050 4 97.30 Ear 83027 910 53644 4 98.00 Ear 83774 910 58457 1 89.00 mm[Hg] - Sitting 185.00 mm[Hg] - Sitting 98.00 Ear 92.00 % 81.00/ min 910 27577 9 97.30 Ear 911 21718 8 75.00 mm[Hg] - Sitting 147.00 mm[Hg] - Sitting 97.20 Ear 90.00 % 81.00/ min 912 02801 2 80.00 mm[Hg] - Sitting 150.00 mm[Hg] - Sitting 97.80 Ear 93.00 % 78.00/ min 912 69249 9 75.00 mm[Hg] - Sitting 135.00 mm[Hg] - Sitting 97.80 Oral 91.00 % 81.00/ min 914 86570 0 79.00 mm[Hg] - Sitting 162.00 mm[Hg] - Sitting 97.40 Ear 93.00 % 81.00/ min 4 18853 8 180.00 NI 915 39804 0 79.00 mm[Hg] - Sitting 114.00 mm[Hg] - Sitting 97.80 Ear 92.00 % 81.00/ min 915 58886 3 79.00 mm[Hg] - Sitting 116.00 mm[Hg] - Sitting 97.20 Ear 90.00 % 87.00/ min 915 08520 0 96.00 % 6 69460 9 64.00 mm[Hg] - Lying Down 127.00 mm[Hg] - Lying Down 98.20 Ear 84.00/ min 916 57046 2 87.00 mm[Hg] - Sitting 168.00 mm[Hg] - Sitting 97.80 Oral 92.00 % 86.00/ min 7 67396 5 67.00 mm[Hg] - Sitting 147.00 mm[Hg] - Sitting 97.30 Ear 91.00 % 87.00/ min 7 61872 5 96.00 % 13723 8 76.00 mm[Hg] - Sitting 166.00 mm[Hg] - Sitting 97.60 Ear 90.00 % 76.00/ min 917 62282 0 74.00 mm[Hg] - Sitting 141.00 mm[Hg] - Sitting 97.60 X-Other 93.00 % 80.00/ min 9 38393 4 74.00 mm[Hg] - Sitting 166.00 mm[Hg] - Sitting 98.40 Oral 93.00 % 80.00/ min 919 49750 3 156.00 NI 920 53728 6 79.00 mm[Hg] - Sitting 154.00 mm[Hg] - Sitting 97.40 Ear 90.00 % 76.00/ min Immunizations Vaccine Date Status COVID-19 09/11/2020 Completed COVID-19 10/08/2020 Completed COVID-19 12/16/2022 Completed Influenza 03/21/2022 Completed (PCV13)Pneumococcal 04/19/2017 Completed (PPSV23)Pneumococcal 02/08/2019 Completed Shingles 10/02/2021 Completed Tetanus 04/07/2011 Completed H1N1 08/07/2009 Completed Shingles 2 04/10/2022 Completed
--- OUTSIDE RECORDS SUMMARY | 2023-05-02 05:07 | External Medical Summary | Continuity Of Care Document ---
Author Name Unknown Address [address] [place] [address] Organization [facility] ( ) Care Team Providers Care Industrial Retrofit Designer Name Role Phone Tl Taylorcarolina Primary Care Provider [phone] VITAL SIGNS Date Time Diastolic blood pressure Systolic blood pressure Body height Body weight Temperature SpO2 Blood Sugar Pulse Respirations 78664 907 51697 8 87.00 mm[Hg] - Sitting 134.00 mm[Hg] - Sitting 180.00 NI 97.50 Ear 95.00 % 20.00/min 73933 907 35407 3 87.00 mm[Hg] - Sitting 134.00 mm[Hg] - Sitting 97.50 Oral 76.00/ min 20.00/min 80438 908 77774 7 64730 908 10749 0 73.00 mm[Hg] - Sitting 130.00 mm[Hg] - Sitting 97.20 Ear 82.00/ min 03258 908 89923 4 87.00 mm[Hg] - Sitting 134.00 mm[Hg] - Sitting 97.50 Ear 76.00/ min 18.00/min 85403 908 86867 0 97.50 Oral 64668 908 67802 8 87.00 mm[Hg] - Sitting 134.00 mm[Hg] - Sitting 18.00/min 36399 908 41712 6 97.90 Ear 64032 909 01833 5 01252 909 62752 2 51022 909 47465 1 73.00 mm[Hg] - Sitting 130.00 mm[Hg] - Sitting 97.20 Ear 91.00 % 82.00/ min 43335 909 75743 1 97.60 Ear 21724 909 26954 2 97.40 Ear 06477 910 44992 4 97.30 Ear 14092 910 94447 4 98.00 Ear 39312 910 09327 1 89.00 mm[Hg] - Sitting 185.00 mm[Hg] - Sitting 98.00 Ear 92.00 % 81.00/ min 84572 910 03464 9 97.30 Ear 25297 911 23650 8 75.00 mm[Hg] - Sitting 147.00 mm[Hg] - Sitting 97.20 Ear 90.00 % 81.00/ min 912 79553 2 80.00 mm[Hg] - Sitting 150.00 mm[Hg] - Sitting 97.80 Ear 93.00 % 78.00/ min 912 14885 9 75.00 mm[Hg] - Sitting 135.00 mm[Hg] - Sitting 97.80 Oral 91.00 % 81.00/ min 4 28449 0 79.00 mm[Hg] - Sitting 162.00 mm[Hg] - Sitting 97.40 Ear 93.00 % 81.00/ min 4 93428 8 180.00 NI 915 32818 0 79.00 mm[Hg] - Sitting 114.00 mm[Hg] - Sitting 97.80 Ear 92.00 % 81.00/ min 915 05570 3 79.00 mm[Hg] - Sitting 116.00 mm[Hg] - Sitting 97.20 Ear 90.00 % 87.00/ min 915 52091 0 96.00 % 6 66434 9 64.00 mm[Hg] - Lying Down 127.00 mm[Hg] - Lying Down 98.20 Ear 84.00/ min 916 74991 2 87.00 mm[Hg] - Sitting 168.00 mm[Hg] - Sitting 97.80 Oral 92.00 % 86.00/ min 7 56776 5 67.00 mm[Hg] - Sitting 147.00 mm[Hg] - Sitting 97.30 Ear 91.00 % 87.00/ min 7 45334 5 96.00 % 7 19089 8 76.00 mm[Hg] - Sitting 166.00 mm[Hg] - Sitting 97.60 Ear 90.00 % 76.00/ min 917 03087 0 74.00 mm[Hg] - Sitting 141.00 mm[Hg] - Sitting 97.60 X-Other 93.00 % 80.00/ min 919 79671 4 74.00 mm[Hg] - Sitting 166.00 mm[Hg] - Sitting 98.40 Oral 93.00 % 80.00/ min 9 71138 3 156.00 NI 74835 6 79.00 mm[Hg] - Sitting 154.00 mm[Hg] - Sitting 97.40 Ear 90.00 % 76.00/ min 16330 1 172.20 NI 58784 5 90176 3 79.00 mm[Hg] - Sitting 154.00 mm[Hg] - Sitting 97.40 Oral 76.00/ min 18.00/min 48704 6 41930 1 13811 6 163.00 NI 21100 9 56.00 mm[Hg] - Sitting 172.00 mm[Hg] - Sitting 97.60 Oral 92.00 % 84.00/ min 83654 0 163.00 NI 07294 5 56.00 mm[Hg] - Sitting 172.00 mm[Hg] - Sitting 97.60 Ear 84.00/ min 18.00/min 921 36775 0 56.00 mm[Hg] - Sitting 172.00 mm[Hg] - Sitting 97.60 Oral 84.00/ min 18.00/min 2 88201 0 71.00 mm[Hg] - Sitting 108.00 mm[Hg] - Sitting 97.80 Ear 90.00 % 88.00/ min 3 24366 3 167.00 NI Immunizations Vaccine Date Status COVID-19 09/11/2020 Completed COVID-19 10/08/2020 Completed COVID-19 12/16/2022 Completed Influenza 03/21/2022 Completed (PCV13)Pneumococcal 04/19/2017 Completed (PPSV23)Pneumococcal 02/08/2019 Completed Shingles 10/02/2021 Completed Tetanus 04/07/2011 Completed H1N1 08/07/2009 Completed Shingles 2 04/10/2022 Completed
--- OUTSIDE RECORDS SUMMARY | 2023-05-02 05:07 | External Medical Summary | Continuity Of Care Document ---
Author Name Unknown Address [address] [place] [address] Organization [facility] ( ) Care Team Providers Care Serging Machine Operator Name Role Phone Tl Taylorcarolina Primary Care Provider [phone] VITAL SIGNS Date Time Diastolic blood pressure Systolic blood pressure Body height Body weight Temperature SpO2 Blood Sugar Pulse Respirations 824 30698 0 60.00 mm[Hg] - Sitting 125.00 mm[Hg] - Sitting 172.00 NI 98.20 Ear 87.00/ min 24202 907 75972 8 87.00 mm[Hg] - Sitting 134.00 mm[Hg] - Sitting 180.00 NI 97.50 Ear 95.00 % 20.00/min 51803 907 08621 3 87.00 mm[Hg] - Sitting 134.00 mm[Hg] - Sitting 97.50 Oral 76.00/ min 20.00/min 30152 908 62734 7 07378 908 60834 0 73.00 mm[Hg] - Sitting 130.00 mm[Hg] - Sitting 97.20 Ear 82.00/ min 29923 908 87812 4 87.00 mm[Hg] - Sitting 134.00 mm[Hg] - Sitting 97.50 Ear 76.00/ min 18.00/min 96960 908 59190 0 97.50 Oral 44204 908 49843 8 87.00 mm[Hg] - Sitting 134.00 mm[Hg] - Sitting 18.00/min 49077 908 75886 6 97.90 Ear 12982 909 46439 5 33623 909 60162 2 39872 909 46931 1 73.00 mm[Hg] - Sitting 130.00 mm[Hg] - Sitting 97.20 Ear 91.00 % 82.00/ min 89184 909 34167 1 97.60 Ear 82997 909 98132 2 97.40 Ear 15287 910 12984 4 97.30 Ear 08675 910 53975 4 98.00 Ear 71732 910 01275 1 89.00 mm[Hg] - Sitting 185.00 mm[Hg] - Sitting 98.00 Ear 92.00 % 81.00/ min 910 79558 9 97.30 Ear 911 72148 8 75.00 mm[Hg] - Sitting 147.00 mm[Hg] - Sitting 97.20 Ear 90.00 % 81.00/ min 912 15289 2 80.00 mm[Hg] - Sitting 150.00 mm[Hg] - Sitting 97.80 Ear 93.00 % 78.00/ min 912 59287 9 75.00 mm[Hg] - Sitting 135.00 mm[Hg] - Sitting 97.80 Oral 91.00 % 81.00/ min 914 02708 0 79.00 mm[Hg] - Sitting 162.00 mm[Hg] - Sitting 97.40 Ear 93.00 % 81.00/ min 4 16706 8 180.00 NI 915 79080 0 79.00 mm[Hg] - Sitting 114.00 mm[Hg] - Sitting 97.80 Ear 92.00 % 81.00/ min 915 28953 3 79.00 mm[Hg] - Sitting 116.00 mm[Hg] - Sitting 97.20 Ear 90.00 % 87.00/ min 915 67899 0 96.00 % 6 21451 9 64.00 mm[Hg] - Lying Down 127.00 mm[Hg] - Lying Down 98.20 Ear 84.00/ min 916 96339 2 87.00 mm[Hg] - Sitting 168.00 mm[Hg] - Sitting 97.80 Oral 92.00 % 86.00/ min 7 51952 5 67.00 mm[Hg] - Sitting 147.00 mm[Hg] - Sitting 97.30 Ear 91.00 % 87.00/ min 7 54119 5 96.00 % 15271 8 76.00 mm[Hg] - Sitting 166.00 mm[Hg] - Sitting 97.60 Ear 90.00 % 76.00/ min 917 40224 0 74.00 mm[Hg] - Sitting 141.00 mm[Hg] - Sitting 97.60 X-Other 93.00 % 80.00/ min 9 97448 4 74.00 mm[Hg] - Sitting 166.00 mm[Hg] - Sitting 98.40 Oral 93.00 % 80.00/ min 919 34679 3 156.00 NI 920 23818 6 79.00 mm[Hg] - Sitting 154.00 mm[Hg] - Sitting 97.40 Ear 90.00 % 76.00/ min Immunizations Vaccine Date Status COVID-19 09/11/2020 Completed COVID-19 10/08/2020 Completed COVID-19 12/16/2022 Completed Influenza 03/21/2022 Completed (PCV13)Pneumococcal 04/19/2017 Completed (PPSV23)Pneumococcal 02/08/2019 Completed Shingles 10/02/2021 Completed Tetanus 04/07/2011 Completed H1N1 08/07/2009 Completed Shingles 2 04/10/2022 Completed
--- OUTSIDE RECORDS SUMMARY | 2023-05-02 05:07 | External Medical Summary | Continuity Of Care Document ---
Author Name Unknown Address [address] [place] [address] Organization [facility] ( ) Care Team Providers Care Hr Administrative Assistant Name Role Phone Tl Taylorcarolina Primary Care Provider [phone] VITAL SIGNS Date Time Diastolic blood pressure Systolic blood pressure Body height Body weight Temperature SpO2 Blood Sugar Pulse Respirations 824 32552 0 60.00 mm[Hg] - Sitting 125.00 mm[Hg] - Sitting 172.00 NI 98.20 Ear 87.00/ min 40527 907 52903 8 87.00 mm[Hg] - Sitting 134.00 mm[Hg] - Sitting 180.00 NI 97.50 Ear 95.00 % 20.00/min 10306 907 20932 3 87.00 mm[Hg] - Sitting 134.00 mm[Hg] - Sitting 97.50 Oral 76.00/ min 20.00/min 06041 908 53036 7 29838 908 27048 0 73.00 mm[Hg] - Sitting 130.00 mm[Hg] - Sitting 97.20 Ear 82.00/ min 46543 908 00624 4 87.00 mm[Hg] - Sitting 134.00 mm[Hg] - Sitting 97.50 Ear 76.00/ min 18.00/min 59585 908 56123 0 97.50 Oral 60330 908 36143 8 87.00 mm[Hg] - Sitting 134.00 mm[Hg] - Sitting 18.00/min 11476 908 61715 6 97.90 Ear 38816 909 11367 5 04620 909 17230 2 03000 909 38561 1 73.00 mm[Hg] - Sitting 130.00 mm[Hg] - Sitting 97.20 Ear 91.00 % 82.00/ min 06852 909 41440 1 97.60 Ear 79151 909 91373 2 97.40 Ear 75290 910 15033 4 97.30 Ear 19349 910 18700 4 98.00 Ear 29802 910 03057 1 89.00 mm[Hg] - Sitting 185.00 mm[Hg] - Sitting 98.00 Ear 92.00 % 81.00/ min 910 83840 9 97.30 Ear 911 04324 8 75.00 mm[Hg] - Sitting 147.00 mm[Hg] - Sitting 97.20 Ear 90.00 % 81.00/ min 912 78256 2 80.00 mm[Hg] - Sitting 150.00 mm[Hg] - Sitting 97.80 Ear 93.00 % 78.00/ min 912 09931 9 75.00 mm[Hg] - Sitting 135.00 mm[Hg] - Sitting 97.80 Oral 91.00 % 81.00/ min 914 56477 0 79.00 mm[Hg] - Sitting 162.00 mm[Hg] - Sitting 97.40 Ear 93.00 % 81.00/ min 4 74147 8 180.00 NI 915 71390 0 79.00 mm[Hg] - Sitting 114.00 mm[Hg] - Sitting 97.80 Ear 92.00 % 81.00/ min 915 70516 3 79.00 mm[Hg] - Sitting 116.00 mm[Hg] - Sitting 97.20 Ear 90.00 % 87.00/ min 915 39036 0 96.00 % 6 88070 9 64.00 mm[Hg] - Lying Down 127.00 mm[Hg] - Lying Down 98.20 Ear 84.00/ min 916 98892 2 87.00 mm[Hg] - Sitting 168.00 mm[Hg] - Sitting 97.80 Oral 92.00 % 86.00/ min 7 31011 5 67.00 mm[Hg] - Sitting 147.00 mm[Hg] - Sitting 97.30 Ear 91.00 % 87.00/ min 7 51026 5 96.00 % 72185 8 76.00 mm[Hg] - Sitting 166.00 mm[Hg] - Sitting 97.60 Ear 90.00 % 76.00/ min 917 08804 0 74.00 mm[Hg] - Sitting 141.00 mm[Hg] - Sitting 97.60 X-Other 93.00 % 80.00/ min 9 46915 4 74.00 mm[Hg] - Sitting 166.00 mm[Hg] - Sitting 98.40 Oral 93.00 % 80.00/ min 919 26320 3 156.00 NI 920 11492 6 79.00 mm[Hg] - Sitting 154.00 mm[Hg] - Sitting 97.40 Ear 90.00 % 76.00/ min 920 55143 1 172.20 NI 920 04209 5 92 75412 3 79.00 mm[Hg] - Sitting 154.00 mm[Hg] - Sitting 97.40 Oral 76.00/ min 18.00/min 921 56050 1 Immunizations Vaccine Date Status COVID-19 09/11/2020 Completed COVID-19 10/08/2020 Completed COVID-19 12/16/2022 Completed Influenza 03/21/2022 Completed (PCV13)Pneumococcal 04/19/2017 Completed (PPSV23)Pneumococcal 02/08/2019 Completed Shingles 10/02/2021 Completed Tetanus 04/07/2011 Completed H1N1 08/07/2009 Completed Shingles 2 04/10/2022 Completed
--- OUTSIDE RECORDS SUMMARY | 2023-05-02 05:07 | External Medical Summary | Continuity Of Care Document ---
Author Name Unknown Address [address] [place] [address] Organization [facility] ( ) Care Team Providers Care Recruitment Manager Name Role Phone Tl Taylorcarolina Primary Care Provider [phone] VITAL SIGNS Date Time Diastolic blood pressure Systolic blood pressure Body height Body weight Temperature SpO2 Blood Sugar Pulse Respirations 10858 907 72033 8 87.00 mm[Hg] - Sitting 134.00 mm[Hg] - Sitting 180.00 NI 97.50 Ear 95.00 % 20.00/min 48647 907 42750 3 87.00 mm[Hg] - Sitting 134.00 mm[Hg] - Sitting 97.50 Oral 76.00/ min 20.00/min 53236 908 81056 7 88737 908 91008 0 73.00 mm[Hg] - Sitting 130.00 mm[Hg] - Sitting 97.20 Ear 82.00/ min 11658 908 87060 4 87.00 mm[Hg] - Sitting 134.00 mm[Hg] - Sitting 97.50 Ear 76.00/ min 18.00/min 06482 908 73362 0 97.50 Oral 48760 908 66930 8 87.00 mm[Hg] - Sitting 134.00 mm[Hg] - Sitting 18.00/min 34986 908 45275 6 97.90 Ear 09409 909 76327 5 55155 909 57228 2 19254 909 59606 1 73.00 mm[Hg] - Sitting 130.00 mm[Hg] - Sitting 97.20 Ear 91.00 % 82.00/ min 80925 909 06737 1 97.60 Ear 50726 909 51859 2 97.40 Ear 60138 910 66055 4 97.30 Ear 07871 910 40112 4 98.00 Ear 66467 910 28879 1 89.00 mm[Hg] - Sitting 185.00 mm[Hg] - Sitting 98.00 Ear 92.00 % 81.00/ min 59266 910 62668 9 97.30 Ear 47276 911 53081 8 75.00 mm[Hg] - Sitting 147.00 mm[Hg] - Sitting 97.20 Ear 90.00 % 81.00/ min 912 87421 2 80.00 mm[Hg] - Sitting 150.00 mm[Hg] - Sitting 97.80 Ear 93.00 % 78.00/ min 912 42096 9 75.00 mm[Hg] - Sitting 135.00 mm[Hg] - Sitting 97.80 Oral 91.00 % 81.00/ min 4 41502 0 79.00 mm[Hg] - Sitting 162.00 mm[Hg] - Sitting 97.40 Ear 93.00 % 81.00/ min 4 27870 8 180.00 NI 915 29619 0 79.00 mm[Hg] - Sitting 114.00 mm[Hg] - Sitting 97.80 Ear 92.00 % 81.00/ min 915 10800 3 79.00 mm[Hg] - Sitting 116.00 mm[Hg] - Sitting 97.20 Ear 90.00 % 87.00/ min 915 43171 0 96.00 % 6 63426 9 64.00 mm[Hg] - Lying Down 127.00 mm[Hg] - Lying Down 98.20 Ear 84.00/ min 916 07267 2 87.00 mm[Hg] - Sitting 168.00 mm[Hg] - Sitting 97.80 Oral 92.00 % 86.00/ min 7 64974 5 67.00 mm[Hg] - Sitting 147.00 mm[Hg] - Sitting 97.30 Ear 91.00 % 87.00/ min 7 71508 5 96.00 % 7 51100 8 76.00 mm[Hg] - Sitting 166.00 mm[Hg] - Sitting 97.60 Ear 90.00 % 76.00/ min 917 42181 0 74.00 mm[Hg] - Sitting 141.00 mm[Hg] - Sitting 97.60 X-Other 93.00 % 80.00/ min 919 49484 4 74.00 mm[Hg] - Sitting 166.00 mm[Hg] - Sitting 98.40 Oral 93.00 % 80.00/ min 9 22964 3 156.00 NI 38649 6 79.00 mm[Hg] - Sitting 154.00 mm[Hg] - Sitting 97.40 Ear 90.00 % 76.00/ min 37555 1 172.20 NI 32977 5 60514 3 79.00 mm[Hg] - Sitting 154.00 mm[Hg] - Sitting 97.40 Oral 76.00/ min 18.00/min 15155 6 95484 1 14751 6 163.00 NI 72615 9 56.00 mm[Hg] - Sitting 172.00 mm[Hg] - Sitting 97.60 Oral 92.00 % 84.00/ min 20549 0 163.00 NI 96710 5 56.00 mm[Hg] - Sitting 172.00 mm[Hg] - Sitting 97.60 Ear 84.00/ min 18.00/min 921 65380 0 56.00 mm[Hg] - Sitting 172.00 mm[Hg] - Sitting 97.60 Oral 84.00/ min 18.00/min 2 55754 0 71.00 mm[Hg] - Sitting 108.00 mm[Hg] - Sitting 97.80 Ear 90.00 % 88.00/ min 3 29588 3 167.00 NI Immunizations Vaccine Date Status COVID-19 09/11/2020 Completed COVID-19 10/08/2020 Completed COVID-19 12/16/2022 Completed Influenza 03/21/2022 Completed (PCV13)Pneumococcal 04/19/2017 Completed (PPSV23)Pneumococcal 02/08/2019 Completed Shingles 10/02/2021 Completed Tetanus 04/07/2011 Completed H1N1 08/07/2009 Completed Shingles 2 04/10/2022 Completed
--- OUTSIDE RECORDS SUMMARY | 2023-05-02 05:07 | External Medical Summary | Continuity Of Care Document ---
Author Name Unknown Address [address] [place] [address] Organization [facility] ( ) Care Team Providers Care Program Supervisor Name Role Phone Tl Taylorcarolina Primary Care Provider [phone] VITAL SIGNS Date Time Diastolic blood pressure Systolic blood pressure Body height Body weight Temperature SpO2 Blood Sugar Pulse Respirations 94896 907 37193 8 87.00 mm[Hg] - Sitting 134.00 mm[Hg] - Sitting 180.00 NI 97.50 Ear 95.00 % 20.00/min 42952 907 81591 3 87.00 mm[Hg] - Sitting 134.00 mm[Hg] - Sitting 97.50 Oral 76.00/ min 20.00/min 67296 908 37983 7 51903 908 23840 0 73.00 mm[Hg] - Sitting 130.00 mm[Hg] - Sitting 97.20 Ear 82.00/ min 49479 908 13224 4 87.00 mm[Hg] - Sitting 134.00 mm[Hg] - Sitting 97.50 Ear 76.00/ min 18.00/min 81637 908 10072 0 97.50 Oral 06661 908 99215 8 87.00 mm[Hg] - Sitting 134.00 mm[Hg] - Sitting 18.00/min 56593 908 08040 6 97.90 Ear 49693 909 99250 5 35050 909 53150 2 74713 909 57895 1 73.00 mm[Hg] - Sitting 130.00 mm[Hg] - Sitting 97.20 Ear 91.00 % 82.00/ min 73122 909 80948 1 97.60 Ear 42478 909 81051 2 97.40 Ear 48885 910 98726 4 97.30 Ear 22406 910 69574 4 98.00 Ear 46623 910 07964 1 89.00 mm[Hg] - Sitting 185.00 mm[Hg] - Sitting 98.00 Ear 92.00 % 81.00/ min 20284 910 58097 9 97.30 Ear 23846 911 77762 8 75.00 mm[Hg] - Sitting 147.00 mm[Hg] - Sitting 97.20 Ear 90.00 % 81.00/ min 912 60604 2 80.00 mm[Hg] - Sitting 150.00 mm[Hg] - Sitting 97.80 Ear 93.00 % 78.00/ min 912 87577 9 75.00 mm[Hg] - Sitting 135.00 mm[Hg] - Sitting 97.80 Oral 91.00 % 81.00/ min 4 25523 0 79.00 mm[Hg] - Sitting 162.00 mm[Hg] - Sitting 97.40 Ear 93.00 % 81.00/ min 4 03620 8 180.00 NI 915 93883 0 79.00 mm[Hg] - Sitting 114.00 mm[Hg] - Sitting 97.80 Ear 92.00 % 81.00/ min 915 56108 3 79.00 mm[Hg] - Sitting 116.00 mm[Hg] - Sitting 97.20 Ear 90.00 % 87.00/ min 915 70148 0 96.00 % 6 30658 9 64.00 mm[Hg] - Lying Down 127.00 mm[Hg] - Lying Down 98.20 Ear 84.00/ min 916 74350 2 87.00 mm[Hg] - Sitting 168.00 mm[Hg] - Sitting 97.80 Oral 92.00 % 86.00/ min 7 16954 5 67.00 mm[Hg] - Sitting 147.00 mm[Hg] - Sitting 97.30 Ear 91.00 % 87.00/ min 7 34111 5 96.00 % 7 27576 8 76.00 mm[Hg] - Sitting 166.00 mm[Hg] - Sitting 97.60 Ear 90.00 % 76.00/ min 917 46197 0 74.00 mm[Hg] - Sitting 141.00 mm[Hg] - Sitting 97.60 X-Other 93.00 % 80.00/ min 919 11139 4 74.00 mm[Hg] - Sitting 166.00 mm[Hg] - Sitting 98.40 Oral 93.00 % 80.00/ min 9 41705 3 156.00 NI 15862 6 79.00 mm[Hg] - Sitting 154.00 mm[Hg] - Sitting 97.40 Ear 90.00 % 76.00/ min 10905 1 172.20 NI 81606 5 68833 3 79.00 mm[Hg] - Sitting 154.00 mm[Hg] - Sitting 97.40 Oral 76.00/ min 18.00/min 33080 6 04127 1 46493 6 163.00 NI 28677 9 56.00 mm[Hg] - Sitting 172.00 mm[Hg] - Sitting 97.60 Oral 92.00 % 84.00/ min 89263 0 163.00 NI 12273 5 56.00 mm[Hg] - Sitting 172.00 mm[Hg] - Sitting 97.60 Ear 84.00/ min 18.00/min 921 94876 0 56.00 mm[Hg] - Sitting 172.00 mm[Hg] - Sitting 97.60 Oral 84.00/ min 18.00/min 2 34873 0 71.00 mm[Hg] - Sitting 108.00 mm[Hg] - Sitting 97.80 Ear 90.00 % 88.00/ min 3 90753 3 167.00 NI Immunizations Vaccine Date Status COVID-19 09/11/2020 Completed COVID-19 10/08/2020 Completed COVID-19 12/16/2022 Completed Influenza 03/21/2022 Completed (PCV13)Pneumococcal 04/19/2017 Completed (PPSV23)Pneumococcal 02/08/2019 Completed Shingles 10/02/2021 Completed Tetanus 04/07/2011 Completed H1N1 08/07/2009 Completed Shingles 2 04/10/2022 Completed
--- OUTSIDE RECORDS SUMMARY | 2023-05-02 05:07 | External Medical Summary | Continuity Of Care Document ---
Author Name Unknown Address [address] [place] [address] Organization [facility] ( ) Care Team Providers Care Invasive Cardiovascular Technologist Name Role Phone Tl Taylorcarolina Primary Care Provider [phone] VITAL SIGNS Date Time Diastolic blood pressure Systolic blood pressure Body height Body weight Temperature SpO2 Blood Sugar Pulse Respirations 09557 907 36235 8 87.00 mm[Hg] - Sitting 134.00 mm[Hg] - Sitting 180.00 NI 97.50 Ear 95.00 % 20.00/min 22816 907 80936 3 87.00 mm[Hg] - Sitting 134.00 mm[Hg] - Sitting 97.50 Oral 76.00/ min 20.00/min 87297 908 35881 7 54269 908 41581 0 73.00 mm[Hg] - Sitting 130.00 mm[Hg] - Sitting 97.20 Ear 82.00/ min 42027 908 46958 4 87.00 mm[Hg] - Sitting 134.00 mm[Hg] - Sitting 97.50 Ear 76.00/ min 18.00/min 42127 908 60200 0 97.50 Oral 22352 908 44048 8 87.00 mm[Hg] - Sitting 134.00 mm[Hg] - Sitting 18.00/min 95657 908 12837 6 97.90 Ear 74589 909 23448 5 48969 909 18344 2 10765 909 40032 1 73.00 mm[Hg] - Sitting 130.00 mm[Hg] - Sitting 97.20 Ear 91.00 % 82.00/ min 14609 909 38612 1 97.60 Ear 15823 909 35416 2 97.40 Ear 38399 910 16145 4 97.30 Ear 61621 910 44164 4 98.00 Ear 97134 910 72356 1 89.00 mm[Hg] - Sitting 185.00 mm[Hg] - Sitting 98.00 Ear 92.00 % 81.00/ min 77435 910 29743 9 97.30 Ear 76074 911 14235 8 75.00 mm[Hg] - Sitting 147.00 mm[Hg] - Sitting 97.20 Ear 90.00 % 81.00/ min 912 89192 2 80.00 mm[Hg] - Sitting 150.00 mm[Hg] - Sitting 97.80 Ear 93.00 % 78.00/ min 912 04613 9 75.00 mm[Hg] - Sitting 135.00 mm[Hg] - Sitting 97.80 Oral 91.00 % 81.00/ min 4 46121 0 79.00 mm[Hg] - Sitting 162.00 mm[Hg] - Sitting 97.40 Ear 93.00 % 81.00/ min 4 36949 8 180.00 NI 915 26121 0 79.00 mm[Hg] - Sitting 114.00 mm[Hg] - Sitting 97.80 Ear 92.00 % 81.00/ min 915 50594 3 79.00 mm[Hg] - Sitting 116.00 mm[Hg] - Sitting 97.20 Ear 90.00 % 87.00/ min 915 34998 0 96.00 % 6 04780 9 64.00 mm[Hg] - Lying Down 127.00 mm[Hg] - Lying Down 98.20 Ear 84.00/ min 916 75182 2 87.00 mm[Hg] - Sitting 168.00 mm[Hg] - Sitting 97.80 Oral 92.00 % 86.00/ min 7 87514 5 67.00 mm[Hg] - Sitting 147.00 mm[Hg] - Sitting 97.30 Ear 91.00 % 87.00/ min 7 69379 5 96.00 % 7 57278 8 76.00 mm[Hg] - Sitting 166.00 mm[Hg] - Sitting 97.60 Ear 90.00 % 76.00/ min 917 42176 0 74.00 mm[Hg] - Sitting 141.00 mm[Hg] - Sitting 97.60 X-Other 93.00 % 80.00/ min 919 91780 4 74.00 mm[Hg] - Sitting 166.00 mm[Hg] - Sitting 98.40 Oral 93.00 % 80.00/ min 9 09728 3 156.00 NI 35891 6 79.00 mm[Hg] - Sitting 154.00 mm[Hg] - Sitting 97.40 Ear 90.00 % 76.00/ min 61231 1 172.20 NI 62812 5 07510 3 79.00 mm[Hg] - Sitting 154.00 mm[Hg] - Sitting 97.40 Oral 76.00/ min 18.00/min 87963 6 77885 1 38376 6 163.00 NI 71574 9 56.00 mm[Hg] - Sitting 172.00 mm[Hg] - Sitting 97.60 Oral 92.00 % 84.00/ min 98353 0 163.00 NI 71863 5 56.00 mm[Hg] - Sitting 172.00 mm[Hg] - Sitting 97.60 Ear 84.00/ min 18.00/min 921 03808 0 56.00 mm[Hg] - Sitting 172.00 mm[Hg] - Sitting 97.60 Oral 84.00/ min 18.00/min 2 27483 0 71.00 mm[Hg] - Sitting 108.00 mm[Hg] - Sitting 97.80 Ear 90.00 % 88.00/ min 3 33928 3 167.00 NI Immunizations Vaccine Date Status COVID-19 09/11/2020 Completed COVID-19 10/08/2020 Completed COVID-19 12/16/2022 Completed Influenza 03/21/2022 Completed (PCV13)Pneumococcal 04/19/2017 Completed (PPSV23)Pneumococcal 02/08/2019 Completed Shingles 10/02/2021 Completed Tetanus 04/07/2011 Completed H1N1 08/07/2009 Completed Shingles 2 04/10/2022 Completed
--- OUTSIDE RECORDS SUMMARY | 2023-05-02 05:07 | External Medical Summary | Continuity Of Care Document ---
Author Name Unknown Address [address] [place] [address] Organization [facility] ( ) Care Team Providers Care Disaster Response Director Name Role Phone Tl Taylorcarolina Primary Care Provider [phone] VITAL SIGNS Date Time Diastolic blood pressure Systolic blood pressure Body height Body weight Temperature SpO2 Blood Sugar Pulse Respirations 824 49570 0 60.00 mm[Hg] - Sitting 125.00 mm[Hg] - Sitting 172.00 NI 98.20 Ear 87.00/ min 71206 907 37535 8 87.00 mm[Hg] - Sitting 134.00 mm[Hg] - Sitting 180.00 NI 97.50 Ear 95.00 % 20.00/min 19568 907 73025 3 87.00 mm[Hg] - Sitting 134.00 mm[Hg] - Sitting 97.50 Oral 76.00/ min 20.00/min 35712 908 71519 7 67667 908 35921 0 73.00 mm[Hg] - Sitting 130.00 mm[Hg] - Sitting 97.20 Ear 82.00/ min 09837 908 49338 4 87.00 mm[Hg] - Sitting 134.00 mm[Hg] - Sitting 97.50 Ear 76.00/ min 18.00/min 15661 908 67098 0 97.50 Oral 94495 908 31072 8 87.00 mm[Hg] - Sitting 134.00 mm[Hg] - Sitting 18.00/min 49108 908 58945 6 97.90 Ear 46179 909 22199 5 40414 909 51658 2 79461 909 20515 1 73.00 mm[Hg] - Sitting 130.00 mm[Hg] - Sitting 97.20 Ear 91.00 % 82.00/ min 55145 909 94355 1 97.60 Ear 41521 909 47690 2 97.40 Ear 07575 910 42140 4 97.30 Ear 75750 910 37268 4 98.00 Ear 12097 910 98656 1 89.00 mm[Hg] - Sitting 185.00 mm[Hg] - Sitting 98.00 Ear 92.00 % 81.00/ min 910 17510 9 97.30 Ear 911 28675 8 75.00 mm[Hg] - Sitting 147.00 mm[Hg] - Sitting 97.20 Ear 90.00 % 81.00/ min 912 92265 2 80.00 mm[Hg] - Sitting 150.00 mm[Hg] - Sitting 97.80 Ear 93.00 % 78.00/ min 912 21768 9 75.00 mm[Hg] - Sitting 135.00 mm[Hg] - Sitting 97.80 Oral 91.00 % 81.00/ min 914 20428 0 79.00 mm[Hg] - Sitting 162.00 mm[Hg] - Sitting 97.40 Ear 93.00 % 81.00/ min 4 07558 8 180.00 NI 915 03405 0 79.00 mm[Hg] - Sitting 114.00 mm[Hg] - Sitting 97.80 Ear 92.00 % 81.00/ min 915 54085 3 79.00 mm[Hg] - Sitting 116.00 mm[Hg] - Sitting 97.20 Ear 90.00 % 87.00/ min 915 49677 0 96.00 % 6 71073 9 64.00 mm[Hg] - Lying Down 127.00 mm[Hg] - Lying Down 98.20 Ear 84.00/ min 916 03633 2 87.00 mm[Hg] - Sitting 168.00 mm[Hg] - Sitting 97.80 Oral 92.00 % 86.00/ min 7 52298 5 67.00 mm[Hg] - Sitting 147.00 mm[Hg] - Sitting 97.30 Ear 91.00 % 87.00/ min 7 25379 5 96.00 % 23319 8 76.00 mm[Hg] - Sitting 166.00 mm[Hg] - Sitting 97.60 Ear 90.00 % 76.00/ min 917 90436 0 74.00 mm[Hg] - Sitting 141.00 mm[Hg] - Sitting 97.60 X-Other 93.00 % 80.00/ min 9 88166 4 74.00 mm[Hg] - Sitting 166.00 mm[Hg] - Sitting 98.40 Oral 93.00 % 80.00/ min 919 78170 3 156.00 NI 920 29888 6 79.00 mm[Hg] - Sitting 154.00 mm[Hg] - Sitting 97.40 Ear 90.00 % 76.00/ min Immunizations Vaccine Date Status COVID-19 09/11/2020 Completed COVID-19 10/08/2020 Completed COVID-19 12/16/2022 Completed Influenza 03/21/2022 Completed (PCV13)Pneumococcal 04/19/2017 Completed (PPSV23)Pneumococcal 02/08/2019 Completed Shingles 10/02/2021 Completed Tetanus 04/07/2011 Completed H1N1 08/07/2009 Completed Shingles 2 04/10/2022 Completed
--- OUTSIDE RECORDS SUMMARY | 2023-05-02 05:07 | External Medical Summary | Continuity Of Care Document ---
Author Name Unknown Address [address] [place] [address] Organization [facility] ( ) Care Team Providers Care Branch Operations Specialist Name Role Phone Tl Taylorcarolina Primary Care Provider [phone] VITAL SIGNS Date Time Diastolic blood pressure Systolic blood pressure Body height Body weight Temperature SpO2 Blood Sugar Pulse Respirations 21436 907 04331 8 87.00 mm[Hg] - Sitting 134.00 mm[Hg] - Sitting 180.00 NI 97.50 Ear 95.00 % 20.00/min 80879 907 43017 3 87.00 mm[Hg] - Sitting 134.00 mm[Hg] - Sitting 97.50 Oral 76.00/ min 20.00/min 29539 908 83743 7 91131 908 05744 0 73.00 mm[Hg] - Sitting 130.00 mm[Hg] - Sitting 97.20 Ear 82.00/ min 76814 908 11317 4 87.00 mm[Hg] - Sitting 134.00 mm[Hg] - Sitting 97.50 Ear 76.00/ min 18.00/min 89632 908 89028 0 97.50 Oral 71351 908 77208 8 87.00 mm[Hg] - Sitting 134.00 mm[Hg] - Sitting 18.00/min 29784 908 08034 6 97.90 Ear 83523 909 79203 5 14118 909 31917 2 83816 909 88726 1 73.00 mm[Hg] - Sitting 130.00 mm[Hg] - Sitting 97.20 Ear 91.00 % 82.00/ min 47292 909 91165 1 97.60 Ear 51317 909 20344 2 97.40 Ear 34606 910 06726 4 97.30 Ear 15295 910 83690 4 98.00 Ear 53416 910 03173 1 89.00 mm[Hg] - Sitting 185.00 mm[Hg] - Sitting 98.00 Ear 92.00 % 81.00/ min 73108 910 44761 9 97.30 Ear 69541 911 73866 8 75.00 mm[Hg] - Sitting 147.00 mm[Hg] - Sitting 97.20 Ear 90.00 % 81.00/ min 912 55488 2 80.00 mm[Hg] - Sitting 150.00 mm[Hg] - Sitting 97.80 Ear 93.00 % 78.00/ min 912 27220 9 75.00 mm[Hg] - Sitting 135.00 mm[Hg] - Sitting 97.80 Oral 91.00 % 81.00/ min 4 32477 0 79.00 mm[Hg] - Sitting 162.00 mm[Hg] - Sitting 97.40 Ear 93.00 % 81.00/ min 4 60573 8 180.00 NI 915 87997 0 79.00 mm[Hg] - Sitting 114.00 mm[Hg] - Sitting 97.80 Ear 92.00 % 81.00/ min 915 88359 3 79.00 mm[Hg] - Sitting 116.00 mm[Hg] - Sitting 97.20 Ear 90.00 % 87.00/ min 915 52560 0 96.00 % 6 81209 9 64.00 mm[Hg] - Lying Down 127.00 mm[Hg] - Lying Down 98.20 Ear 84.00/ min 916 19704 2 87.00 mm[Hg] - Sitting 168.00 mm[Hg] - Sitting 97.80 Oral 92.00 % 86.00/ min 7 24209 5 67.00 mm[Hg] - Sitting 147.00 mm[Hg] - Sitting 97.30 Ear 91.00 % 87.00/ min 7 21816 5 96.00 % 7 80718 8 76.00 mm[Hg] - Sitting 166.00 mm[Hg] - Sitting 97.60 Ear 90.00 % 76.00/ min 917 27728 0 74.00 mm[Hg] - Sitting 141.00 mm[Hg] - Sitting 97.60 X-Other 93.00 % 80.00/ min 919 55027 4 74.00 mm[Hg] - Sitting 166.00 mm[Hg] - Sitting 98.40 Oral 93.00 % 80.00/ min 9 76857 3 156.00 NI 96275 6 79.00 mm[Hg] - Sitting 154.00 mm[Hg] - Sitting 97.40 Ear 90.00 % 76.00/ min 16279 1 172.20 NI 84364 5 59862 3 79.00 mm[Hg] - Sitting 154.00 mm[Hg] - Sitting 97.40 Oral 76.00/ min 18.00/min 92468 6 97926 1 40265 6 163.00 NI 63668 9 56.00 mm[Hg] - Sitting 172.00 mm[Hg] - Sitting 97.60 Oral 92.00 % 84.00/ min 38094 0 163.00 NI 51055 5 56.00 mm[Hg] - Sitting 172.00 mm[Hg] - Sitting 97.60 Ear 84.00/ min 18.00/min 921 38053 0 56.00 mm[Hg] - Sitting 172.00 mm[Hg] - Sitting 97.60 Oral 84.00/ min 18.00/min 2 34942 0 71.00 mm[Hg] - Sitting 108.00 mm[Hg] - Sitting 97.80 Ear 90.00 % 88.00/ min 3 18016 3 167.00 NI Immunizations Vaccine Date Status COVID-19 09/11/2020 Completed COVID-19 10/08/2020 Completed COVID-19 12/16/2022 Completed Influenza 03/21/2022 Completed (PCV13)Pneumococcal 04/19/2017 Completed (PPSV23)Pneumococcal 02/08/2019 Completed Shingles 10/02/2021 Completed Tetanus 04/07/2011 Completed H1N1 08/07/2009 Completed Shingles 2 04/10/2022 Completed
--- OUTSIDE RECORDS SUMMARY | 2023-05-02 05:07 | External Medical Summary | Continuity Of Care Document ---
Author Name Unknown Address [address] [place] [address] Organization [facility] ( ) Care Team Providers Care Computer Programming Manager Name Role Phone Tl Taylorcarolina Primary Care Provider [phone] VITAL SIGNS Date Time Diastolic blood pressure Systolic blood pressure Body height Body weight Temperature SpO2 Blood Sugar Pulse Respirations 91535 907 58963 8 87.00 mm[Hg] - Sitting 134.00 mm[Hg] - Sitting 180.00 NI 97.50 Ear 95.00 % 20.00/min 15985 907 82804 3 87.00 mm[Hg] - Sitting 134.00 mm[Hg] - Sitting 97.50 Oral 76.00/ min 20.00/min 94704 908 26158 7 13217 908 98081 0 73.00 mm[Hg] - Sitting 130.00 mm[Hg] - Sitting 97.20 Ear 82.00/ min 28090 908 44247 4 87.00 mm[Hg] - Sitting 134.00 mm[Hg] - Sitting 97.50 Ear 76.00/ min 18.00/min 86482 908 73223 0 97.50 Oral 24189 908 18319 8 87.00 mm[Hg] - Sitting 134.00 mm[Hg] - Sitting 18.00/min 64609 908 42127 6 97.90 Ear 62159 909 00877 5 37059 909 80309 2 61964 909 55584 1 73.00 mm[Hg] - Sitting 130.00 mm[Hg] - Sitting 97.20 Ear 91.00 % 82.00/ min 62541 909 72183 1 97.60 Ear 67026 909 33161 2 97.40 Ear 39642 910 64598 4 97.30 Ear 00600 910 34183 4 98.00 Ear 09736 910 27091 1 89.00 mm[Hg] - Sitting 185.00 mm[Hg] - Sitting 98.00 Ear 92.00 % 81.00/ min 34704 910 50579 9 97.30 Ear 82636 911 14591 8 75.00 mm[Hg] - Sitting 147.00 mm[Hg] - Sitting 97.20 Ear 90.00 % 81.00/ min 912 06857 2 80.00 mm[Hg] - Sitting 150.00 mm[Hg] - Sitting 97.80 Ear 93.00 % 78.00/ min 912 76166 9 75.00 mm[Hg] - Sitting 135.00 mm[Hg] - Sitting 97.80 Oral 91.00 % 81.00/ min 4 22345 0 79.00 mm[Hg] - Sitting 162.00 mm[Hg] - Sitting 97.40 Ear 93.00 % 81.00/ min 4 15515 8 180.00 NI 915 30357 0 79.00 mm[Hg] - Sitting 114.00 mm[Hg] - Sitting 97.80 Ear 92.00 % 81.00/ min 915 94551 3 79.00 mm[Hg] - Sitting 116.00 mm[Hg] - Sitting 97.20 Ear 90.00 % 87.00/ min 915 24893 0 96.00 % 6 21271 9 64.00 mm[Hg] - Lying Down 127.00 mm[Hg] - Lying Down 98.20 Ear 84.00/ min 916 75668 2 87.00 mm[Hg] - Sitting 168.00 mm[Hg] - Sitting 97.80 Oral 92.00 % 86.00/ min 7 17212 5 67.00 mm[Hg] - Sitting 147.00 mm[Hg] - Sitting 97.30 Ear 91.00 % 87.00/ min 7 43020 5 96.00 % 7 33962 8 76.00 mm[Hg] - Sitting 166.00 mm[Hg] - Sitting 97.60 Ear 90.00 % 76.00/ min 917 65124 0 74.00 mm[Hg] - Sitting 141.00 mm[Hg] - Sitting 97.60 X-Other 93.00 % 80.00/ min 919 89801 4 74.00 mm[Hg] - Sitting 166.00 mm[Hg] - Sitting 98.40 Oral 93.00 % 80.00/ min 9 82270 3 156.00 NI 36987 6 79.00 mm[Hg] - Sitting 154.00 mm[Hg] - Sitting 97.40 Ear 90.00 % 76.00/ min 75810 1 172.20 NI 94880 5 71994 3 79.00 mm[Hg] - Sitting 154.00 mm[Hg] - Sitting 97.40 Oral 76.00/ min 18.00/min 76199 6 78997 1 99966 6 163.00 NI 42268 9 56.00 mm[Hg] - Sitting 172.00 mm[Hg] - Sitting 97.60 Oral 92.00 % 84.00/ min 79899 0 163.00 NI 00237 5 56.00 mm[Hg] - Sitting 172.00 mm[Hg] - Sitting 97.60 Ear 84.00/ min 18.00/min 921 98943 0 56.00 mm[Hg] - Sitting 172.00 mm[Hg] - Sitting 97.60 Oral 84.00/ min 18.00/min 2 08474 0 71.00 mm[Hg] - Sitting 108.00 mm[Hg] - Sitting 97.80 Ear 90.00 % 88.00/ min 3 96030 3 167.00 NI Immunizations Vaccine Date Status COVID-19 09/11/2020 Completed COVID-19 10/08/2020 Completed COVID-19 12/16/2022 Completed Influenza 03/21/2022 Completed (PCV13)Pneumococcal 04/19/2017 Completed (PPSV23)Pneumococcal 02/08/2019 Completed Shingles 10/02/2021 Completed Tetanus 04/07/2011 Completed H1N1 08/07/2009 Completed Shingles 2 04/10/2022 Completed
--- OUTSIDE RECORDS SUMMARY | 2023-05-02 05:08 | External Medical Summary | Summary of Care ---
Author Name Unknown Organization [facility] Address [address] [place] [address] Phone [phone] Care Team Providers Care Fitness Attendant Name Role Phone Avtar Dominguez Primary Care Provider [phone] Reason for Visit * Reason Onset Date Comments Skilled Visit 03/04/2023 Encounter Details Date Type Department Care Team Description 03/03/2023 Snf Visit [facility] [address] [place] [address] Brianna Orozco PA-C [address] [place] [address] Alcoholic cirrhosis of liver with ascites (HCC)*; ESRD on dialysis (HCC); COPD, moderate (HCC); PAF (paroxysmal atrial fibrillation) (HCC) Allergies No known active allergiesdocumented as of this encounter (statuses as of 03/04/2023) Medications Medication Sig Dispensed Refills Start Date [...] cut, crush or chew 0 01/21/2023 Active Polk Caps 1 MG Oral Capsule Take 1 [...] as of this encounter (statuses as of 03/04/2023) Active Problems Problem Noted Date Urothelial lesion [...] 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 Colon polyp 01/21/2023 History of tobacco use 01/21/2023 Personal history of alcoholism Full code status 01/21/2023 Coarse tremors 01/21/2023 FX CORONOID PROC ULNA-CL 07/17/2005 DISLOCAT ELBOW NEC-CLOSE 07/17/2005 documented as of this encounter (statuses as of 03/04/2023) Social History Tobacco Use Types Packs/Day Years [...] as of this encounter Plan of Treatment Health Maintenance Due Date Last Done Comments Pneumococcal Vaccine: 65+ Years (1 - PCV) 1956 Depression Screening 1962 Alpha-1 Antitrypsin 1968 Hepatitis C Screening 1968 O2 ASSESSMENT COMPLETED IN PAST YEAR FOR COPD 1968 Zoster Vaccines (1 of 2) 1969 Cologuard 1995 Colonoscopy 1995 Colorectal Cancer Screening 1995 Fecal Occult Blood Test 1995 Sigmoidoscopy 1995 LUNG CANCER SCREENING - USE SMARTSET 10948 2000 Hepatitis B (1 of 3 - [...] fibrillation documented in this encounter Care Teams Fitness Attendant Relationship Specialty Start Date End Date Jona Dominguez DO PCP - General 08/13/05 documented as of this encounter
--- OUTSIDE RECORDS SUMMARY | 2023-05-02 05:08 | External Medical Summary | Summary of Care ---
Author Name Unknown Organization [facility] Address [address] [place] [address] Phone [phone] Care Team Providers Care Senior Report Developer Name Role Phone Marla Dominguez The DO Primary Care Provider [phone] Encounter Details Date Type Department Care Team Description 03/02/2023 Orders Only Lab Mobile Phlebotomy [facility] [address] [place], [place] [id number] Maximo Taylor MD [address] [place] [address] [place] [address] Cirrhosis of liver (HCC)* Allergies No known active allergiesdocumented as of this encounter (statuses as of 03/02/2023) Medications Medication Sig Dispensed Refills Start Date [...] as of this encounter (statuses as of 03/02/2023) Active Problems Problem Noted Date Urothelial lesion [...] as of this encounter (statuses as of 03/02/2023) Social History Tobacco Use Types Packs/Day Years [...] Encounters Date Type Specialty Care Team Description 03/03/2023 Laboratory Laboratory Processing [address] [place] [address] Scheduled Orders Name Type Priority Associated Diagnoses Orde r Schedule HEPATIC FUNCTION PANEL Lab Routine Cirrhosis of liver (HCC) Expected: 03/03/2023, Expires: 03/02/2024 [facility] Lab Routine Cirrhosis of liver (HCC) Expected: 03/03/2023, Expires: 03/02/2024 Health Maintenance Due Date Last Done Comments Pneumococcal Vaccine: 65+ Years (1 - PCV) 1956 Depression Screening 1962 Alpha-1 Antitrypsin 1968 Hepatitis C Screening 1968 O2 ASSESSMENT COMPLETED IN PAST YEAR FOR COPD 1968 Zoster Vaccines (1 of 2) 1969 Cologuard 1995 Colonoscopy 1995 Colorectal Cancer Screening 1995 Fecal Occult Blood Test 1995 Sigmoidoscopy 1995 LUNG CANCER SCREENING - USE SMARTSET 70923 2000 Hepatitis B (1 of 3 - [...] as of this encounter Visit Diagnoses Diagnosis Cirrhosis of liver (HCC)- Primary Cirrhosis of liver without mention of alcohol documented in this encounter Care Teams Senior Report Developer Relationship Specialty Start Date End Date Jona Dominguez DO PCP - General 08/13/05 documented as of this encounter
--- OUTSIDE RECORDS SUMMARY | 2023-05-02 05:08 | External Medical Summary | Continuity Of Care Document ---
Author Name Unknown Address [address] [place] [address] Organization [facility] ( ) Care Team Providers Care Construction Consultant Name Role Phone Maximo Taylor Primary Care Provider [phone] Problems Code Description Start Date End Date Status U07.1 COVID-19 02/25/2023 Active R10.9 Unspecified abdominal pain 02/25/2023 0 Active J44.9 Chronic obstructive pulmonary disease, unspecified 02/25/2023 Active N18.6 End stage renal disease 02/25/2023 A ctive I10. Essential (primary) hypertension 02/25/2023 Active D49.4 [...] Acute respiratory failure with hypoxia 12/11/19 23 Active G30.9 Alzheimer's disease, unspecified 12/10/2022 Active [...] weight Temperature SpO2 Blood Sugar Pulse Respirations 815 46533 3 66.00 mm[Hg] - Sitting 123.00 mm[Hg] - Sitting 84.00 % 824 57897 0 60.00 mm[Hg] - Sitting 125.00 mm[Hg] - Sitting 172.00 NI 98.20 Ear 87.00/ min 50394 907 81782 8 87.00 mm[Hg] - Sitting 134.00 mm[Hg] - Sitting 180.00 NI 97.50 Ear 95.00 % 20.00/min 64643 907 44354 3 87.00 mm[Hg] - Sitting 134.00 mm[Hg] - Sitting 97.50 Oral 76.00/ min 20.00/min 10958 908 07662 7 62279 908 76617 0 73.00 mm[Hg] - Sitting 130.00 mm[Hg] - Sitting 97.20 Ear 82.00/ min 44333 908 90850 4 87.00 mm[Hg] - Sitting 134.00 mm[Hg] - Sitting 97.50 Ear 76.00/ min 18.00/min 66248 908 34114 0 97.50 Oral 40829 908 39479 8 87.00 mm[Hg] - Sitting 134.00 mm[Hg] - Sitting 18.00/min 51932 908 58286 6 97.90 Ear 20216 909 85531 5 72963 909 14499 2 73237 909 44708 1 73.00 mm[Hg] - Sitting 130.00 mm[Hg] - Sitting 97.20 Ear 91.00 % 82.00/ min 21580 909 53272 1 97.60 Ear 10411 909 42671 2 97.40 Ear 55549 910 55563 4 97.30 Ear 41183 910 40168 4 98.00 Ear 90794 910 57484 1 89.00 mm[Hg] - Sitting 185.00 mm[Hg] - Sitting 98.00 Ear 92.00 % 81.00/ min 60777 910 53362 9 97.30 Ear 92021 911 09921 8 75.00 mm[Hg] - Sitting 147.00 mm[Hg] - Sitting 97.20 Ear 90.00 % 81.00/ min 93869 912 13710 2 80.00 mm[Hg] - Sitting 150.00 mm[Hg] - Sitting 97.80 Ear 93.00 % 78.00/ min 92272 912 85488 9 75.00 mm[Hg] - Sitting 135.00 mm[Hg] - Sitting 97.80 Oral 91.00 % 81.00/ min 54289 914 95376 0 79.00 mm[Hg] - Sitting 162.00 mm[Hg] - Sitting 97.40 Ear 93.00 % 81.00/ min 65482 914 55746 8 180.00 NI Immunizations Vaccine Date Status COVID-19 09/11/2020 Completed COVID-19 10/08/2020 Completed COVID-19 12/16/2022 Completed Influenza 03/21/2022 Completed (PCV13)Pneumococcal 04/19/2017 Completed (PPSV23)Pneumococcal 02/08/2019 Completed Shingles 10/02/2021 Completed Tetanus 04/07/2011 Completed H1N1 08/07/2009 Completed Shingles 2 04/10/2022 Completed
--- OUTSIDE RECORDS SUMMARY | 2023-05-02 05:08 | External Medical Summary | Continuity Of Care Document ---
Author Name Unknown Address [address] [place] [address] Organization [facility] ( ) Care Team Providers Care Fast Food Crew Lead Name Role Phone Maximo Taylor Primary Care Provider [phone] Problems Code Description Start Date End Date [...] Temperature SpO2 Blood Sugar Pulse Respirations 824 93753 0 60.00 mm[Hg] - Sitting 125.00 mm[Hg] - Sitting 172.00 NI 98.20 Ear 87.00/ min 907 47129 8 87.00 mm[Hg] - Sitting 134.00 mm[Hg] - Sitting 180.00 NI 97.50 Ear 95.00 % 20.00/min 88236 907 37260 3 87.00 mm[Hg] - Sitting 134.00 mm[Hg] - Sitting 97.50 Oral 76.00/ min 20.00/min 16514 908 98431 7 85003 908 74113 0 73.00 mm[Hg] - Sitting 130.00 mm[Hg] - Sitting 97.20 Ear 82.00/ min 48251 908 70972 4 87.00 mm[Hg] - Sitting 134.00 mm[Hg] - Sitting 97.50 Ear 76.00/ min 18.00/min 68575 908 42007 0 97.50 Oral 03729 908 37233 8 87.00 mm[Hg] - Sitting 134.00 mm[Hg] - Sitting 18.00/min 40183 908 50616 6 97.90 Ear 21449 909 56311 5 11520 909 87671 2 86827 909 19782 1 73.00 mm[Hg] - Sitting 130.00 mm[Hg] - Sitting 97.20 Ear 91.00 % 82.00/ min 91635 909 50311 1 97.60 Ear 19376 909 09026 2 97.40 Ear 46361 910 50490 4 97.30 Ear 56886 910 84542 4 98.00 Ear 54794 910 90774 1 89.00 mm[Hg] - Sitting 185.00 mm[Hg] - Sitting 98.00 Ear 92.00 % 81.00/ min 41830 910 76421 9 97.30 Ear 90881 911 13042 8 75.00 mm[Hg] - Sitting 147.00 mm[Hg] - Sitting 97.20 Ear 90.00 % 81.00/ min 50605 912 24287 2 80.00 mm[Hg] - Sitting 150.00 mm[Hg] - Sitting 97.80 Ear 93.00 % 78.00/ min 49410 912 82739 9 75.00 mm[Hg] - Sitting 135.00 mm[Hg] - Sitting 97.80 Oral 91.00 % 81.00/ min 59041 914 65142 0 79.00 mm[Hg] - Sitting 162.00 mm[Hg] - Sitting 97.40 Ear 93.00 % 81.00/ min 37290 914 89509 8 180.00 [place] [address] 915 11372 0 79.00 mm[Hg] - Sitting 114.00 mm[Hg] - Sitting 97.80 Ear 92.00 % 81.00/ min 5 28039 3 79.00 mm[Hg] - Sitting 116.00 mm[Hg] - Sitting 97.20 Ear 90.00 % 87.00/ min 915 36547 0 96.00 % 61114 9 64.00 mm[Hg] - Lying Down 127.00 mm[Hg] - Lying Down 98.20 Ear 84.00/ min 09231 2 87.00 mm[Hg] - Sitting 168.00 mm[Hg] - Sitting 97.80 Oral 92.00 % 86.00/ min 82941 5 67.00 mm[Hg] - Sitting 147.00 mm[Hg] - Sitting 97.30 Ear 91.00 % 87.00/ min 55057 5 96.00 % 02165 8 76.00 mm[Hg] - Sitting 166.00 mm[Hg] - Sitting 97.60 Ear 90.00 % 76.00/ min 917 44034 0 74.00 mm[Hg] - Sitting 141.00 mm[Hg] - Sitting 97.60 X-Other 93.00 % 80.00/ min Immunizations Vaccine Date Status COVID-19 09/11/2020 Completed COVID-19 10/08/2020 Completed COVID-19 12/16/2022 Completed Influenza 03/21/2022 Completed (PCV13)Pneumococcal 04/19/2017 Completed (PPSV23)Pneumococcal 02/08/2019 Completed Shingles 10/02/2021 Completed Tetanus 04/07/2011 Completed H1N1 08/07/2009 Completed Shingles 2 04/10/2022 Completed
--- OUTSIDE RECORDS SUMMARY | 2023-05-02 05:08 | External Medical Summary | Summary of Care ---
Author Name Unknown Organization [facility] Address [address] [place] [address] Phone [phone] Care Team Providers Care Bacteriologist Fishery Name Role Phone Marla Dominguez The DO Primary Care Provider [phone] Reason for Referral * Evaluate & Treat - Unlimited Visits (Within 3 days (urgent)) - Authorized Specialty Diagnoses / Procedures Referred By Vivi avila Referred To Contact Gastroenterology Diagnoses Cirrhosis of liver with ascites, unspecified hepatic cirrhosis type (HCC) Brianna Orozco PA-C [address] [place] [id number] Referral ID Status Reason Start Date Expiration Date Visits Requested Visits Authorized [id number] Authorized Specialty Services Required 03/02/2023 999 999 Question Answer Referral Priority Within 3 days (urgent) For what condition is the patient being referred? Liver conditions Comments Notes posted Encounter Details Date Type Department Care Team Description 03/02/2023 Orders Only [facility] [place] [facility] [address] [place] [address] Ext *DO NOT REMOVE THIS DEPARTMENT* KENNEDI GRAVES [id number] Request, External Referral Cirrhosis of liver with ascites, unspecified hepatic cirrhosis type (HCC)* Allergies No known active allergiesdocumented as [...] as of this encounter Plan of Treatment Scheduled Referrals Name Type Priority Associated Diagnoses Orde r Schedule HEPATOLOGY REFERRAL OP Referral Within 3 days (urgent) Cirrhosis of liver with ascites, unspecified hepatic cirrhosis type (HCC) Ordered: 03/02/2023 Health Maintenance Due Date Last Done Comments Pneumococcal Vaccine: 65+ Years (1 - PCV) 1956 Depression Screening 1962 Alpha-1 Antitrypsin 1968 Hepatitis C Screening 1968 O2 ASSESSMENT COMPLETED IN PAST YEAR FOR COPD 1968 Zoster Vaccines (1 of 2) 1969 Cologuard 1995 Colonoscopy 1995 Colorectal Cancer Screening 1995 Fecal Occult Blood Test 1995 Sigmoidoscopy 1995 LUNG CANCER SCREENING - USE SMARTSET 31659 2000 Hepatitis B (1 of 3 - [...] encounter Visit Diagnoses Diagnosis Cirrhosis of liver with ascites, unspecified hepatic cirrhosis type (HCC)- Primary documented in this encounter Care Teams Bacteriologist Fishery Relationship Specialty Start Date End Date Jona Dominguez DO PCP - General 08/13/05 documented as of this encounter
--- OUTSIDE RECORDS SUMMARY | 2023-05-02 05:08 | External Medical Summary ---
Author Name Unknown Address Unknown Organization K0G:[facility] [place] [address] Laboratory Report Ordering Provider Test Date Status SUSHANT JENKINS 03/03/2023 05:47:00 Final Observation Date Value Abnormality Reference (Units ) Status Albumin 03/03/2023 05:47:00 3.2 Below low normal 3.8-5.0 (g/dL) Final AST (Aspartate aminotransferase) 03/03/2023 05:47:00 12 10-50 (U/L) Final Alk Phos 03/03/2023 05:47:00 53 35-130 (U/L) Final ALT (Alanine aminotransferase) 03/03/2023 05:47:00 9 Below low normal 10-50 (U/L) Final Bilirubin, Total 03/03/2023 05:47:00 0.2 <=1.2 (mg/dL) Final Bilirubin, Direct 03/03/2023 05:47:00 <0.2 0.0-0.3 (mg/dL) Final Protein 03/03/2023 05:47:00 5.5 Below low normal 6.0-8.3 (g/dL) Final Performing Location [facility] [place] [address]
--- OUTSIDE RECORDS SUMMARY | 2023-05-02 05:08 | External Medical Summary | Summary of Care ---
Author Name Unknown Organization [facility] Address [address] [place] [address] Phone [phone] Care Team Providers Care Leak Patcher Name Role Phone Avtar Dominguez Primary Care Provider [phone] Reason for Visit * Reason Onset Date Comments Skilled Visit 03/02/2023 Encounter Details Date Type Department Care Team Description 03/02/2023 Long-Term Visit [facility] [address] [place] [address] Brianna Orozco PA-C [address] [place] [address] Pneumonia due to COVID-19 virus*; Ascites due to alcoholic cirrhosis (HCC); ESRD on dialysis (HCC); Moderate late onset Alzheimer's dementia without behavioral disturbance, psychotic disturbance, mood disturbance, or anxiety (HCC); Urothelial lesion Allergies No known active allergiesdocumented as of [...] cut, crush or chew 0 01/21/2023 Active [place] Caps 1 MG Oral Capsule Take 1 [...] Progress Notes * Brianna Orozco PA-C - 03/02/2023 10:52 AM EDT Name: Sisi Redmond Date of :1950 TRANSITION EVENT: Type: Skilled visit Date: March 02 Code Status: Full Code This note pertains to care provided at [facility]. Please see facility medical record for original note. This note is not to be edited or addended in [employer]. Editing or addending needs to occur in the facilities medical record. Subjective: Sisi Redmond is a 72 year old male. Patient being seen for skilled visit Chief Complaint Patient presents with Skilled Visit HPI: pt is readmission back to facility due to [facility] admission for pneumonia due to Covid 19 infection and worsening ascites due to liver cirrhosis. Pt had one liter of fluid removed by paracentesis. Analysis of fluids showed no malignant cells. Pt is having less abdominal discomfort now but still has significant ascites. GI consult is pending. Pt is stable. He is undergoing dialysis three days weekly. Vital signs stable. Eating ok. Sleeping ok. No diarrhea. CBC Results: Results for orders placed or [...] K/uL MPV 9.6 6.6 - 11.1 fL Hemoglobin Results: Lab Results Component Value Date/Time HGB - [facility] 10.8 (L) 12/14/2022 05:08 AM HGB - [facility] 11.7 (L) 11/11/2022 05:40 AM [facility] - [facility] 10.3 (L) 11/04/2022 05:50 AM Basic Panel Results: Results for orders placed or performed in visit on 11/11/22 BASIC METABOLIC PANEL Result Value Ref Range BUN 79 (H) 6 - 20 mg/dL Creatinine 11.5 (H) 0.6 - 1.2 mg/dL Estimated Glomerular Filtration Rate 4 (L) >=60 mL/min Sodium 138 135 - 146 mmol/L Potassium 4.2 3.5 - 5.1 mmol/L Chloride 92 (L) 98 - 107 mmol/L CO2 22 22 - 32 mmol/L Anion Gap 24 (H) 7 - 15 mmol/L Glucose 106 70 - 120 mg/dL Calcium 9.8 8.4 - 10.2 mg/dL Creatinine Results: Lab Results Component Value Date/Time CREATININE - [facility] 8.8 (H) 12/14/2022 05:08 AM CREATININE - [facility] 11.5 (H) 11/11/2022 05:40 AM CREATININE - [facility] 9.5 (H) 11/04/2022 05:50 AM Potassium Results: Lab Results Component Value Date/Time POTASSIUM - [facility] 6.1 (H) 12/14/2022 05:08 AM POTASSIUM - [facility] 4.2 11/11/2022 05:40 AM POTASSIUM - [facility] 3.8 11/04/2022 05:50 AM Labs done at dialysis center. Patient Active Problem List Diagnosis Code FX CORONOID PROC ULNA-CL S52.043A DISLOCAT ELBOW NEC-CLOSE S53.196A ESRD on dialysis ([facility]) N18.6, Z99.2 HTN, goal below 130/80 I10 Iron deficiency anemia D50.9 Slow transit constipation K59.01 PTSD (post-traumatic stress disorder) F43.10 COPD, moderate ([facility]) J44.9 Vitamin B1 deficiency E51.9 Vitamin D deficiency E55.9 Dry skin dermatitis L85.3 Secondary hyperparathyroidism of renal origin ([facility]) N25.81 Polycystic renal disease Q61.3 PAF (paroxysmal atrial fibrillation) ([facility]) I48.0 Primary insomnia F51.01 Pruritic condition L29.9 Moderate late onset Alzheimer's dementia without behavioral disturbance, psychotic disturbance, mood disturbance, or anxiety ([facility]) G30.1, F02.B0 BPH without obstruction/lower urinary tract symptoms N40.0 Benign neoplasm of skin of nose D23.39 Diverticulosis of large intestine without hemorrhage K57.30 Chronic gout without tophus M1A.9XX0 History of intracranial hemorrhage Z86.79 History of nontraumatic rupture of cerebral aneurysm Z86.79 Colon polyp K63.5 History of tobacco use Z87.891 Personal history of alcoholism ([facility]) F10.21 Full code status Z78.9 Coarse tremors G25.2 Protein-calorie malnutrition ([facility]) E46 Anemia in chronic kidney disease, on chronic dialysis ([facility]) N18.6, D63.1, Z99.2 Urothelial lesion N39.8 Ascites due to alcoholic cirrhosis ([facility]) K70.31 Renal artery stenosis ([facility]) I70.1 No past medical history on file. Past Surgical History: Procedure Laterality Date BRAIN ANEURYSM REPR, SIMPLE 2012 MRI compatible brain aneurysm clip R [facility] COLONOSCOPY INFORMATION removal of benign neoplasm nose TOOTH ROOT REMOVAL complete dental extraction Family [...] date: 1966 Quit date: 2021 Years since quittin.6 Smokeless tobacco: Never Substance and Sexual Activity [...] list as this cannot be edited in [email or web address] ([employer]). Review of Systems: obtained from staff and pt Constitutional ROS:+ change in weight, continued weakness, continued fatigue and No fevers, sweats,or chills Nose ROS: No nasal stuffiness and No significant epistaxis Mouth/Throat ROS: No thrush or No sore throat Neck ROS: No lumps or masses, No swollen glands, No recent swelling in thyroid area and No significant pain in neck Pulmonary ROS: No change in cough, sputum, or hemoptysis, No change in [...] depression, No anxiety and No psychosis + PTSD + dementia Sleep: No sleep disorders OBJECTIVE: PHYSICALEXAM: I reviewed the most recent facilities vitals. General: alert, no distress, thin Eye Exam: Conjunctiva are pink and non-injected, [...] bowel sounds and no masses or organomegaly. Protuberant with ascites noted Extremities: no edema, no clubbing, no cyanosis Neuro Exam: alert with fluent speech, no focal motor/sensory deficits Skin: skin color, texture, turgor are normal, no rashes or significant lesions no jaundice ASSESSMENT: Pneumonia due to COVID-19 virus (Primary) Clinically stable Continue with Duonebs Q 4 hours prn and Stiolto 2.5 two puffs daily Ascites due to alcoholic cirrhosis (HCC) Will recheck LFT's and ammonia level Awaiting GI consultation ESRD on dialysis (HCC) Continue to go to dialysis three days weekly Moderate late onset Alzheimer's dementia without behavioral disturbance, psychotic disturbance, mood disturbance, or anxiety (HCC) Stable mood and mentation Continue Trazodone 50mg HS and depakote ER 500mg daily ' Urothelial lesion Has cystoscopy with fulgaration of bladder lesion scheduled for March PLAN: Reviewed CBC, BMP, Lytes and Continue present medication(s):as ordered. Long Term Home Treatment Given: Lab Draw LFT's, ammonia level Electronically signed by: Brianna Orozco PA-C Over 45 minutes were spent in this visit more than half the time was spent counselling or coordinating care. documented in this encounter Plan of Treatment Health Maintenance [...] 1995 LUNG CANCER SCREENING - USE SMARTSET 43102 2000 Hepatitis B (1 of 3 - [...] as of this encounter Visit Diagnoses Diagnosis Pneumonia due to COVID-19 virus- Primary Ascites due to alcoholic cirrhosis (HCC) ESRD on dialysis (HCC) End stage renal disease Moderate late onset Alzheimer's dementia without behavioral disturbance, psychotic disturbance, mood disturbance, or anxiety (HCC) Urothelial lesion Unspecified disorder of urethra and urinary tract documented in this encounter Care Teams Leak Patcher Relationship Specialty Start Date End Date Jona Dominguez DO PCP - General 08/13/05 documented as of this encounter
--- OUTSIDE RECORDS SUMMARY | 2023-05-02 05:08 | External Medical Summary | Summary of Care ---
Author Name Unknown Organization [facility] Address [address] [place] [address] Phone [phone] Care Team Providers Care Research Worker Kitchen Name Role Phone Avtar Dominguez Primary Care Provider [phone] Reason for Visit * Reason Onset Date Comments Skilled Visit 03/04/2023 Encounter Details Date Type Department Care Team Description 03/04/2023 Custodial Visit [facility] [address] [place] [address] Brianna Orozco PA-C [address] [place] [address] Alcoholic cirrhosis of liver with ascites (HCC)*; Moderate late onset Alzheimer's dementia without behavioral disturbance, psychotic disturbance, mood disturbance, or anxiety (HCC); Pneumonia due to COVID-19 virus Allergies No known active allergiesdocumented as of [...] cut, crush or chew 0 01/21/2023 Active [place] Caps 1 MG Oral Capsule Take 1 [...] 1995 LUNG CANCER SCREENING - USE SMARTSET 86089 2000 Hepatitis B (1 of 3 - [...] psychotic disturbance, mood disturbance, or anxiety (HCC) Pneumonia due to COVID-19 virus documented in this encounter Care Teams Research Worker Kitchen Relationship Specialty Start Date End Date Jona Dominguez DO PCP - General 08/13/05 documented as of this encounter
--- OUTSIDE RECORDS SUMMARY | 2023-05-02 05:08 | External Medical Summary | Continuity Of Care Document ---
Author Name Unknown Address [address] [place] [address] Organization [facility] ( ) Care Team Providers Care Shipper/Receiver Name Role Phone Tl Taylorcarolina Primary Care Provider [phone] VITAL SIGNS Date Time Diastolic blood pressure Systolic blood pressure Body height Body weight Temperature SpO2 Blood Sugar Pulse Respirations 824 68614 0 60.00 mm[Hg] - Sitting 125.00 mm[Hg] - Sitting 172.00 NI 98.20 Ear 87.00/ min 21581 907 62735 8 87.00 mm[Hg] - Sitting 134.00 mm[Hg] - Sitting 180.00 NI 97.50 Ear 95.00 % 20.00/min 10605 907 21347 3 87.00 mm[Hg] - Sitting 134.00 mm[Hg] - Sitting 97.50 Oral 76.00/ min 20.00/min 48859 908 58843 7 04713 908 88192 0 73.00 mm[Hg] - Sitting 130.00 mm[Hg] - Sitting 97.20 Ear 82.00/ min 19820 908 88484 4 87.00 mm[Hg] - Sitting 134.00 mm[Hg] - Sitting 97.50 Ear 76.00/ min 18.00/min 92118 908 64325 0 97.50 Oral 50425 908 13763 8 87.00 mm[Hg] - Sitting 134.00 mm[Hg] - Sitting 18.00/min 99843 908 58723 6 97.90 Ear 56503 909 60049 5 17893 909 40803 2 00872 909 93282 1 73.00 mm[Hg] - Sitting 130.00 mm[Hg] - Sitting 97.20 Ear 91.00 % 82.00/ min 54422 909 87783 1 97.60 Ear 60741 909 63782 2 97.40 Ear 79688 910 20881 4 97.30 Ear 71108 910 36584 4 98.00 Ear 17878 910 73600 1 89.00 mm[Hg] - Sitting 185.00 mm[Hg] - Sitting 98.00 Ear 92.00 % 81.00/ min 910 67058 9 97.30 Ear 911 17725 8 75.00 mm[Hg] - Sitting 147.00 mm[Hg] - Sitting 97.20 Ear 90.00 % 81.00/ min 912 54596 2 80.00 mm[Hg] - Sitting 150.00 mm[Hg] - Sitting 97.80 Ear 93.00 % 78.00/ min 912 06245 9 75.00 mm[Hg] - Sitting 135.00 mm[Hg] - Sitting 97.80 Oral 91.00 % 81.00/ min 914 79612 0 79.00 mm[Hg] - Sitting 162.00 mm[Hg] - Sitting 97.40 Ear 93.00 % 81.00/ min 4 33050 8 180.00 NI 915 50199 0 79.00 mm[Hg] - Sitting 114.00 mm[Hg] - Sitting 97.80 Ear 92.00 % 81.00/ min 915 22065 3 79.00 mm[Hg] - Sitting 116.00 mm[Hg] - Sitting 97.20 Ear 90.00 % 87.00/ min 915 31023 0 96.00 % 6 95083 9 64.00 mm[Hg] - Lying Down 127.00 mm[Hg] - Lying Down 98.20 Ear 84.00/ min 916 44515 2 87.00 mm[Hg] - Sitting 168.00 mm[Hg] - Sitting 97.80 Oral 92.00 % 86.00/ min 7 72837 5 67.00 mm[Hg] - Sitting 147.00 mm[Hg] - Sitting 97.30 Ear 91.00 % 87.00/ min 7 78586 5 96.00 % 58782 8 76.00 mm[Hg] - Sitting 166.00 mm[Hg] - Sitting 97.60 Ear 90.00 % 76.00/ min 917 45504 0 74.00 mm[Hg] - Sitting 141.00 mm[Hg] - Sitting 97.60 X-Other 93.00 % 80.00/ min 9 85773 4 74.00 mm[Hg] - Sitting 166.00 mm[Hg] - Sitting 98.40 Oral 93.00 % 80.00/ min 919 70408 3 156.00 NI 920 05913 6 79.00 mm[Hg] - Sitting 154.00 mm[Hg] - Sitting 97.40 Ear 90.00 % 76.00/ min Immunizations Vaccine Date Status COVID-19 09/11/2020 Completed COVID-19 10/08/2020 Completed COVID-19 12/16/2022 Completed Influenza 03/21/2022 Completed (PCV13)Pneumococcal 04/19/2017 Completed (PPSV23)Pneumococcal 02/08/2019 Completed Shingles 10/02/2021 Completed Tetanus 04/07/2011 Completed H1N1 08/07/2009 Completed Shingles 2 04/10/2022 Completed
--- OUTSIDE RECORDS SUMMARY | 2023-05-02 05:08 | External Medical Summary | Continuity Of Care Document ---
Author Name Unknown Address [address] [place] [address] Organization [facility] ( ) Care Team Providers Care General Surgery Physician Assistant Name Role Phone Maximo Taylor Primary Care Provider [phone] Problems Code Description Start Date End Date [...] Temperature SpO2 Blood Sugar Pulse Respirations 824 43903 0 60.00 mm[Hg] - Sitting 125.00 mm[Hg] - Sitting 172.00 NI 98.20 Ear 87.00/ min 907 88913 8 87.00 mm[Hg] - Sitting 134.00 mm[Hg] - Sitting 180.00 NI 97.50 Ear 95.00 % 20.00/min 71864 907 40806 3 87.00 mm[Hg] - Sitting 134.00 mm[Hg] - Sitting 97.50 Oral 76.00/ min 20.00/min 13097 908 59291 7 78216 908 73977 0 73.00 mm[Hg] - Sitting 130.00 mm[Hg] - Sitting 97.20 Ear 82.00/ min 75183 908 17200 4 87.00 mm[Hg] - Sitting 134.00 mm[Hg] - Sitting 97.50 Ear 76.00/ min 18.00/min 65211 908 20220 0 97.50 Oral 45388 908 72135 8 87.00 mm[Hg] - Sitting 134.00 mm[Hg] - Sitting 18.00/min 55818 908 96710 6 97.90 Ear 78232 909 41270 5 75576 909 97135 2 18185 909 83928 1 73.00 mm[Hg] - Sitting 130.00 mm[Hg] - Sitting 97.20 Ear 91.00 % 82.00/ min 47374 909 44647 1 97.60 Ear 38003 909 82450 2 97.40 Ear 38843 910 55105 4 97.30 Ear 26687 910 67552 4 98.00 Ear 41579 910 70715 1 89.00 mm[Hg] - Sitting 185.00 mm[Hg] - Sitting 98.00 Ear 92.00 % 81.00/ min 42792 910 43522 9 97.30 Ear 62521 911 75214 8 75.00 mm[Hg] - Sitting 147.00 mm[Hg] - Sitting 97.20 Ear 90.00 % 81.00/ min 15313 912 25687 2 80.00 mm[Hg] - Sitting 150.00 mm[Hg] - Sitting 97.80 Ear 93.00 % 78.00/ min 88891 912 81290 9 75.00 mm[Hg] - Sitting 135.00 mm[Hg] - Sitting 97.80 Oral 91.00 % 81.00/ min 77981 914 34151 0 79.00 mm[Hg] - Sitting 162.00 mm[Hg] - Sitting 97.40 Ear 93.00 % 81.00/ min 97896 914 83409 8 180.00 NI Immunizations Vaccine Date Status COVID-19 09/11/2020 Completed COVID-19 10/08/2020 Completed COVID-19 12/16/2022 Completed Influenza 03/21/2022 Completed (PCV13)Pneumococcal 04/19/2017 Completed (PPSV23)Pneumococcal 02/08/2019 Completed Shingles 10/02/2021 Completed Tetanus 04/07/2011 Completed H1N1 08/07/2009 Completed Shingles 2 04/10/2022 Completed
--- OUTSIDE RECORDS SUMMARY | 2023-05-02 05:08 | External Medical Summary ---
Author Name Unknown Address Unknown Organization K01:[facility] [address] [place] [address] Laboratory Report Ordering Provider Test Date Status SUSHANT JENKINS 03/03/2023 05:47:00 Final Observation Date Value Abnormality Reference (Units ) Status Ammonia 03/03/2023 05:47:00 33 11-35 (umo l/L) Final Performing Location [facility] [address] [place] [address]
--- OUTSIDE RECORDS SUMMARY | 2023-05-02 05:09 | External Medical Summary | Continuity Of Care Document ---
Author Name Unknown Address [address] [place] [address] Organization [facility] ( ) Care Team Providers Care Coal Unloader Name Role Phone Maximo Taylor Primary Care Provider [phone] Problems Code Description Start Date End Date Status R26.9 Unspecified abnormalities of gait and mobility 12/10/2022 Active N18.6 End stage renal disease 12/10/2022 A ctive G93.41 Metabolic encephalopathy 12/10/2022 Active W19.XXXA Unspecified fall, initial encounter 12/10/2022 Active I48.91 Unspecified atrial fibrillation 12/10/2022/ Active R18.8 Other ascites 12/10/2022 Active I10. Essential (primary) hypertension 12/10/2022 Active E87.70 Fluid overload, unspecified 12/10/2022 00 Active M25.539 Pain in unspecified wrist 12/10/2022 Active J44.9 Chronic obstructive pulmonary disease, unspecified 12/10/2022 Active J96.01 Acute respiratory failure with hypoxia 12/11/19 Active G30.9 Alzheimer's disease, unspecified 12/10/2022 Active D64.9 Anemia, unspecified 12/10/2022 Activ e R00.1 Bradycardia, unspecified 12/10/2022 Active K57.90 Diverticulosis [...] E55.9 Vitamin D deficiency, unspecified 12/10/2022 Active F43.10 Post-traumatic stress disorder, unspecified Active R26.81 Unsteadiness on feet 12/16/2022 Acti ve R48.8 Other symbolic dysfunctions 12/16/2022 00 Active R13.11 Dysphagia, oral phase 12/16/2022 Act magdi M62.81 Muscle weakness (generalized) 12/16/2022 Active Z74.1 Need for assistance with personal care 12/17/19 Active R26.89 Other abnormalities of gait and mobility 2022 Active R53.1 Weakness 12/16/2022 Active R26.9 Unspecified abnormalities of gait and mobility 12/10/2022 Active VITAL SIGNS Date Time Diastolic blood pressure Systolic blood pressure Body height Body weight Temperature SpO2 Blood Sugar Pulse Respirations 81 44908 5 97.00 mm[Hg] - Sitting 137.00 mm[Hg] - Sitting 97.70 Ear 87.00/ min 815 28896 3 66.00 mm[Hg] - Sitting 123.00 mm[Hg] - Sitting 84.00 % 824 74035 0 60.00 mm[Hg] - Sitting 125.00 mm[Hg] - Sitting 172.00 NI 98.20 Ear 87.00/ min Immunizations Vaccine Date Status COVID-19 09/11/2020 Completed COVID-19 10/08/2020 Completed COVID-19 12/16/2022 Completed Influenza 03/21/2022 Completed (PCV13)Pneumococcal 04/19/2017 Completed (PPSV23)Pneumococcal 02/08/2019 Completed Shingles 10/02/2021 Completed Tetanus 04/07/2011 Completed H1N1 08/07/2009 Completed Shingles 2 04/10/2022 Completed
--- OUTSIDE RECORDS SUMMARY | 2023-05-02 05:09 | External Medical Summary | Summary of Care ---
Author Name Unknown Organization [facility] Address [address] [place] [address] Phone [phone] Care Team Providers Care Plug Overwrap Machine Tender Name Role Phone Avtar Dominguez Primary Care Provider [phone] Reason for Visit * Reason Onset Date Comments Skilled Visit 02/26/2023 Encounter Details Date Type Department Care Team Description 02/26/2023 Assisted Visit [facility] [address] [email or web address] [address] Brianna Orozco PA-C [address] [place] [address] Pneumonia due to COVID-19 virus*; Ascites due to alcoholic cirrhosis (HCC); COPD, moderate (HCC); ESRD on dialysis (HCC); Anemia in chronic kidney disease, on chronic dialysis (HCC); Superficial phlebitis Allergies No known active allergiesdocumented as of this encounter (statuses as of 02/26/2023) Medications Medication Sig Dispensed Refills Start Date [...] as of this encounter (statuses as of 02/26/2023) Active Problems Problem Noted Date Urothelial lesion [...] as of this encounter (statuses as of 02/26/2023) Social History Tobacco Use Types Packs/Day Years [...] Progress Notes * Brianna Orozco PA-C - 02/26/2023 9:07 AM EDT Name: Sisi Redmond Date of :1950 TRANSITION EVENT: Type: Skilled visit Date: February 26 Code Status: Full Code This note pertains to care provided at [facility]. Please see facility medical record for original note. This note is not to be edited or addended in [employer]. Editing or addending needs to occur in the facilities medical record. Subjective: Sisi Redmond is a 72 year old male. Patient being seen for skilled visit Chief Complaint Patient presents with Skilled Visit HPI: pt is readmitted back to facility from [facility] after hospitalization for Covid pneumonia and worsening ascites due to liver cirrhosis. Had 1 liter of fluid removed via paracentesis. Analysis of fluid still pending. Pt's abdominal discomfort is less. Will arrange for GI followup. Eating, sleeping ok. Vital signs stable. Feeling fatigued. Pt having burning pain and warmth along right radial wrist. Pt states he had an IV placed in this area and "the nurses had to change it because it got sore". No chills or fever Patient Active Problem List Diagnosis Code FX CORONOID PROC ULNA-CL S52.043A DISLOCAT ELBOW NEC-CLOSE S53.196A ESRD on dialysis ([facility]) N18.6, Z99.2 HTN, goal below 130/80 I10 Iron deficiency anemia D50.9 Slow transit constipation K59.01 PTSD (post-traumatic stress disorder) F43.10 COPD, moderate ([facility]) J44.9 Vitamin B1 deficiency E51.9 Vitamin D deficiency E55.9 Dry skin dermatitis L85.3 Secondary hyperparathyroidism of renal origin ([facility]) N25.81 Polycystic renal disease Q61.3 PAF (paroxysmal atrial fibrillation) ([facility]) I48.0 Primary insomnia F51.01 Pruritic condition L29.9 Moderate late onset Alzheimer's dementia without behavioral disturbance, psychotic disturbance, mood disturbance, or anxiety ([facility]) G30.1, F02.B0 BPH without obstruction/lower urinary tract symptoms N40.0 Benign neoplasm of skin of nose D23.39 Diverticulosis of large intestine without hemorrhage K57.30 Chronic gout without tophus M1A.[id number] History of intracranial hemorrhage Z86.79 History of nontraumatic rupture of cerebral aneurysm Z86.79 Colon polyp K63.5 History of tobacco use Z87.891 Personal history of alcoholism ([facility]) F10.21 Full code status Z78.9 Coarse tremors G25.2 Protein-calorie malnutrition ([facility]) E46 Anemia in chronic kidney disease, on chronic dialysis ([facility]) N18.6, D63.1, Z99.2 Urothelial lesion N39.8 Ascites due to alcoholic cirrhosis ([facility]) K70.31 Renal artery stenosis ([facility]) I70.1 No past medical history on file. Past Surgical History: Procedure Laterality Date BRAIN ANEURYSM REPR, SIMPLE 2013 MRI compatible brain aneurysm clip [facility] COLONOSCOPY INFORMATION removal of benign neoplasm [...] list as this cannot be edited in [employer]. Review of Systems: Constitutional ROS: No change in weight, No change in weakness, No change in fatigue and No fevers,sweats, or chills Nose ROS: No nasal stuffiness [...] see HPI Skin/Integumentary ROS: No rash and chronic skin itching Neurologic ROS: No headaches and No seizures Psychiatric ROS: No depression, No anxiety and No psychosis +PTSD Sleep: No sleep disorders OBJECTIVE: PHYSICALEXAM: [...] lungs clear to auscultation Abdomen: abdomen soft, protuberant non-tender, normal bowel sounds and no masses or organomegaly Extremities: no edema, no clubbing, no cyanosis. Localized tenderness and swelling and warmth alongright radial wrist. Skin: skin color, texture, turgor are normal, no rashes or significant lesions ASSESSMENT: Pneumonia due to COVID-19 virus (Primary) Clinicallly stable Completed treatment at [facility] Will follow Ascites due to alcoholic cirrhosis (HCC) Will need GI followup Referral made COPD, moderate (HCC) Stable breathing Continue Stiolto 2.5mcg two puffs daily ESRD on dialysis (HCC) Contniue with dialysis as directed Continue current renal meds ie renal caps daily, Sensipar 30mg daily Anemia in chronic kidney disease, on chronic dialysis (HCC) Continue Auryxia 210mg two tablets TID Superficial phlebitis Cold compresses to right wrist as directed PLAN: Reviewed [facility] notes again and Continue present medication(s):as ordered. [facility] Treatment Given: as directed Electronically signed by: Brianna Orozco PA-C Over [...] 1995 LUNG CANCER SCREENING - USE SMARTSET [id number] 2000 Hepatitis B (1 of 3 - [...] Primary Ascites due to alcoholic cirrhosis (HCC) COPD, moderate (HCC) Chronic airway obstruction, not elsewhere classified ESRD on dialysis (HCC) End stage renal disease Anemia in chronic kidney disease, on chronic dialysis (HCC) Superficial phlebitis Phlebitis and thrombophlebitis of unspecified site documented in this encounter Care Teams Plug Overwrap Machine Tender Relationship Specialty Start Date End Date Jona Dominguez DO PCP - General 08/13/05 documented as of this encounter
--- OUTSIDE RECORDS SUMMARY | 2023-05-02 05:09 | External Medical Summary | Summary of Care ---
Author Name Unknown Organization [facility] Address [address] [place] [address] Phone [phone] Care Team Providers Care Maintenance Apprentice Name Role Phone Avtar Dominguez Primary Care Provider [phone] Reason for Visit * Reason Onset Date Comments Snf Visit - Readmission 02/26/2023 Encounter Details Date Type Department Care Team Description 02/25/2023 Snf Visit [facility] [address] [place] [address] Brianna Orozco PA-C [address] [place] [address] Pneumonia due to COVID-19 virus*; Ascites due to alcoholic cirrhosis (HCC); ESRD on dialysis (HCC); COPD, moderate (HCC); PAF (paroxysmal atrial fibrillation) (HCC); Secondary hyperparathyroidism of renal origin (HCC); Anemia in chronic kidney disease, on chronic dialysis (HCC); HTN, goal below 130/80; Moderate late onset Alzheimer's dementia without behavioral disturbance, psychotic disturbance, mood disturbance, or anxiety (HCC); Polycystic renal disease; PTSD (post-traumatic stress disorder); Urothelial lesion Allergies No known active allergiesdocumented [...] 1 Tablet before bedtime. 0 01/21/2023 Active Ipratropium-Albut lindy 0.5-2.5 (3) MG/3ML Inhalation Solution (Duoneb) Inhale [...] Stiolto Respimat 2.5-2.5 MCG/ACT Inhalation Aerosol Solution (Tiotropium-Oloda terol) Inhale 2 Puffs by mouth in the [...] of water or juice.. 0 02/25/2023 Active Polyethylene Glycol 3350 17 GM/SCOOP Oral Powder (MiraLax) Take 17 g by mouth in the morning and 17 g before bedtime. Dissolve one heaping tablespoon in 8 ounces of water or juice.. 0 01/21/2023 02/25/2023 Discontinue d(Refill) QUEtiapine Fumarate 25 MG Oral Tablet (SEROquel) Take 1 Tablet by mouth at bedtime. 0 01/21/2023 02/25/2023 Discontinue d(Medicatio n List Clean Up) documented as of this encounter (statuses as [...] Notes * Brianna Orozco PA-C - 02/26/2023 9:24 AM EDT READMISSION NOTE TRANSITION EVENT: Type: Readmission to SNF from Hospital Date: February 25 Code Status: Full Code Subjective: Sisi Redmond is a 72 year old male. Date of : 1950 Chief Complaint Patient presents with Snf Visit - Readmission This note pertains to care provided at [facility]. Please see facility medical record for original note. This note is not to be edited or addended in [employer]. Editing or addending needs to occur in the facilities medical record. S: Sisi Redmond has been readmitted to [facility] from [facility] for shelter care. 72 year old male, emt intermediate care resident, with history of PTSD, COPD, ESRD on dialysis, secondary hyperparathyroidism,ETOH related cirrhosis with ascites (large volume ascites noted on recent CT scan of abdomen), GERD, dementia and recent suspicious bladder lesion noted on previous recent CT scan(planned cystoscopy in March) was transferred to [facility] ED on 02/18/23 with increasing abdominal distension due to ascites, abdominal pain with movement and coughing. The day pt was transferred from [facility], he tested positive for Covid 19. In the ED, Temperature 37.3C. HR: 85 RR: 22 BP: 112/84mmHg. O2 saturation 94% on nasal O2. CBC: WBC: 5.32. H/H: 11.4 and 34.1 PLT: 238,000. INR: 1.0. creatinine 6.72. Glucose, Lytes, LFT's, urinalysis, calcium, Lactate, magnesium normal. Covid 19 testing positive. Procalcitonin elevated to1.11. MRSA nasal positive. Blood C&S no growth. ECG: showed SR with first degree block with no acute changes. CXR showed cardiomegaly with emphysema and pulmonary vascular changes. Bilateral airspace opacities likely represent mild pulmonary edemawith possible superimposed infectious /inflammatory pneumonitis. No large pleural effusion noted. Nephrology consult obtained for management of dialysis while in facility. Pt was begun on Ceftriaxone IV in the ED along with Dexamethasone 6mg IV daily due to O2 requirements. Pt remained stable from pulmonary standpoint so Remdesivir was not begun. He was treated with aggressive pulmonary toilet. On 02/23/23 pt underwent US guided paracentesis with one liter or ascitic fluid removed. Fluid appearance was clear. WBC normal range. <2000 RBCs. Neutrophils: 1, lymphocytes: 26, Winston,macro, mes: 72, basophils: 1. Glucose: 121. Pert LDH: 63. Pert TP: 3.7. Pert LIP: 5. Pert ALB: 2.1. Pt tolerated procedure well. Less abdominal discomfort Pt remained stable throughout the rest of his hospital stay. Discharge hemoglobin: 11.3. Pt is now readmitted back to [facility] on 02/25/23 for LTC Past Medical History: Patient Active Problem List Diagnosis Code FX [...] (HCC) K70.31 Renal artery stenosis (HCC) I70.1 No past medical history on file. Past Surgical History: Procedure Laterality Date BRAIN ANEURYSM REPR, SIMPLE 2012 MRI compatible brain aneurysm clip [facility] COLONOSCOPY INFORMATION removal of benign neoplasm [...] of patient's allergies indicates: No Known Allergies Review of Systems: Constitutional ROS: No change in weight, No change in weakness, No change in fatigue and No fevers,sweats, or chills Eye ROS: No recent significant change in vision, No eye pain, redness, discharge and No diplopia Ear ROS: No ear pain, No drainage, No tinnitus or vertigo and No recent change in hearing Nose ROS: No nasal stuffiness and No significant epistaxis Mouth/Throat ROS: No thrush or No sore throat Neck ROS: No lumps or masses, No swollen glands, No recent swelling in thyroid area and No significant pain in neck Pulmonary ROS: see HPI Cardiovascular ROS: No chest pain, No shortness of breath, No edema, No palpitations and No syncope Gastrointestinal ROS: see HPI Skin/Integumentary ROS: No rash and No itching Neurologic ROS: No headaches and No seizures Psychiatric ROS: No depression, No anxiety and No psychosis +PTSD, + dementia Sleep: No sleep disorders ADL skills independent Ambulates with walker OBJECTIVE: PHYSICAL EXAM: I reviewed the most recent facilities vitals. Refer to vital signs flowsheet in shelter chart. General: alert, no distress, thin, frail Head: Normocephalic, No masses, lesions, tenderness or abnormalities Eye Exam: Conjunctiva are pink and non-injected, sclera clear Ears: External ears normal Nose: no mucosal erythema, no mucosal edema, no purulent discharge Oropharynx: no exudate, no erythema, lips, buccal mucosa, and tongue normal and mucous membranes are moist Neck: supple, no adenopathy, non-tender, neck veins flat, trachea midline Lymph: no palpable lymphadenopathy Heart: regular rate & rhythm, no murmurs and no gallops Lungs: normal respiratory rate and rhythm, no chest wall tenderness, lungs clear to auscultation Abdomen: abdomen soft, protuberant with continued ascites present, less tender, normal bowel soundsand no masses or organomegaly Extremities: no edema, no clubbing, no cyanosis Neuro Exam: alert with fluent speech, no focal motor/sensory deficits Skin: skin color, texture, turgor are normal, no rashes or significant lesions. No jaundice Musculoskeletal: moves all extremities with good strength ASSESSMENT: Pneumonia due to COVID-19 virus (Primary) Reviewed [facility] notes Clinically stable Complete Dexamethasone course Will follow Ascites due to alcoholic cirrhosis (HCC) Will arrange to establish with GI and for hospital followup ESRD on dialysis (HCC) Continue with dialysis as directed Continue renal caps daily and Sensipar 30mg daily COPD, moderate (HCC) Conitnue Stiolto 2.5mcg two puffs dailiy PAF (paroxysmal atrial fibrillation) (HCC) Stable rate Continue Amiodarone 200mg daily Secondary hyperparathyroidism of renal origin (HCC) Anemia in chronic kidney disease, on chronic dialysis (HCC) Continue Auryxia 1 gm two tablets TID HTN, goal below 130/80 At goal Continue Norvasc 2.5mg daily Moderate late onset Alzheimer's dementia without behavioral disturbance, psychotic disturbance, mood disturbance, or anxiety (HCC) Pt's Seroquel has been held and pt seems stable from psychiatric perspective Will continue to hold for now and follow closely Continue Trazodone 50mg HS, Depakote ER 500mg daily Polycystic renal disease Followed by nephrology PTSD (post-traumatic stress disorder) Stable at present Continue Trazodone 50mg HS, Depakote ER 500mg daily Urothelial lesion Has cystoscopy scheduled for March PLAN: 1. Reviewed [facility] notes at length 2. Admission orders, medications, labs, hospital records and care plan reviewed. 3. GI consult ordered. 4. Care plan reviewed. 5. Advanced Directives were discussed: Full Code 6. Long Term Home Treatment Given: as above Electronically signed by: Brianna Orozco PA-C documented in this encounter Plan of Treatment [...] 1995 LUNG CANCER SCREENING - USE SMARTSET [id number] 2000 Hepatitis B (1 of 3 - [...] PAF (paroxysmal atrial fibrillation) (HCC) Atrial fibrillation Secondary hyperparathyroidism of renal origin (HCC) Secondary hyperparathyroidism (of renal origin) Anemia in chronic kidney disease, on chronic dialysis (HCC) HTN, goal below 130/80 Unspecified essential hypertension Moderate late onset Alzheimer's dementia without behavioral disturbance, psychotic disturbance, mood disturbance, or anxiety (HCC) Polycystic renal disease Polycystic kidney, unspecified type PTSD (post-traumatic stress disorder) Posttraumatic stress disorder Urothelial lesion Unspecified disorder of urethra and urinary tract documented in this encounter Care Teams Maintenance Apprentice Relationship Specialty Start Date End Date Jona Dominguez DO PCP - General 08/13/05 documented as of this encounter
--- OUTSIDE RECORDS SUMMARY | 2023-05-02 05:09 | External Medical Summary | Summary of Care ---
Author Name Unknown Organization [facility] Address [address] [place] [address] Phone [phone] Care Team Providers Care Associate Biological Sales Name Role Phone Avtar Dominguez Primary Care Provider [phone] Reason for Visit * Reason Onset Date Comments Complicated Acute Visit 02/18/2023 Encounter Details Date Type Department Care Team Description 02/18/2023 Skilled Nursing Visit [facility] [address] [place] [address] Brianna Orozco PA-C [address] [place] [address] Alcoholic cirrhosis of liver with ascites (HCC)*; ESRD on dialysis (HCC); Polycystic renal disease; COPD, moderate (HCC); Anemia in chronic kidney disease, on chronic dialysis (HCC); PAF (paroxysmal atrial fibrillation) (HCC); Moderate late onset Alzheimer's dementia without behavioral disturbance, psychotic disturbance, mood disturbance, or anxiety (HCC); Urothelial lesion Allergies No known active allergiesdocumented as of this encounter (statuses as of 02/18/2023) Medications Medication Sig Dispensed Refills Start Date [...] cut, crush or chew 0 01/21/2023 Active Polyethylene Glycol 3350 17 GM/SCOOP Oral Powder (MiraLax) Take 17 g by mouth in the morning and 17 g before bedtime. Dissolve one heaping tablespoon in 8 ounces of water or juice.. 0 01/21/2023 Active QUEtiapine Fumarate 25 MG Oral Tablet (SEROquel) Take 1 Tablet by mouth at bedtime. 0 01/21/2023 Active Disputanta Caps 1 MG Oral Capsule Take 1 [...] Pain, Severe. 40 Tablet 0 02/17/2023 Active documented as of this encounter (statuses as of 02/18/2023) Active Problems Problem Noted Date Urothelial lesion [...] as of this encounter (statuses as of 02/18/2023) Social History Tobacco Use Types Packs/Day Years [...] Progress Notes * Brianna Orozco PA-C - 02/18/2023 4:40 PM EDT Name: Sisi Redmond Date of :1950 TRANSITION EVENT: Type: Transfer to ED Date: February 18 Code Status: Full Code This note pertains to care provided at [facility]. Please see facility medical record for original note. This note is not to be edited or addended in [employer]. Editing or addending needs to occur in the facilities medical record. Subjective: iSsi Redmond is a 72 year old male. Patient being seen for worsening abdominal discomfort and ascities Chief Complaint Patient presents with Complicated Acute Visit HPI: I was asked to assess pt for worsening abdominal distension and pain in abdomen with movement and coughing. Pt is at [facility] for LTC due to polycystic kidney disease, ESRD on dialysis, COPD, dementia, hx of ETOH and tobacco abuse, PTSD, HTN and anemia of CKD. Pt had CT scan of abdomen at [facility] on 02/12/23 which showed polycystic kidney disease, renal artery stenosis, liver cirrhosis with ascites and suspicious 2.5cm bladder lesion. Pt had urology appt todayand is scheduled for cystoscopy with fulguration of lesion in March. Pt also had vein mapping performed today for dialysis. Pt has been having increasing abdominal distension and increasing pain with bending, walking and coughing. Not able to sleep due to discomfort. Tylenol and Tramadol offering no real relief. No nauseaor vomiting. No chills or fever. GI and surgical consults are pending to address cirrhosis and ascites. Vital signs stable. Last LFT's 01/22/23 were normal. No ammonia levels were done. CBC, LFT's, BMP and ammonia levels have been scheduled previously for next lab draw CBC Results: Results for orders placed or [...] POTASSIUM - [facility] 3.8 11/04/2022 05:50 AM AST Results: Lab Results Component Value Date/Time AST - [facility] 18 01/22/2023 05:08 AM AST - [facility] 22 12/14/2022 05:08 AM ALT Results: Lab Results Component Value Date/Time ALT - [facility] 10 01/22/2023 05:08 AM ALT - [facility] 15 12/14/2022 05:08 AM Routine labs performed at dialysis center. Patient Active Problem List Diagnosis Code FX CORONOID PROC ULNA-CL S52.043A DISLOCAT ELBOW NEC-CLOSE S53.196A ESRD on dialysis ([facility]) N18.6, Z99.2 HTN, goal below 130/80 I10 Iron deficiency anemia D50.9 Slow transit constipation K59.01 PTSD (post-traumatic stress disorder) F43.10 COPD, moderate ([facility]) J44.9 Vitamin B1 deficiency E51.9 Vitamin D deficiency E55.9 Dry skin dermatitis L85.3 Secondary hyperparathyroidism of renal origin ([facility]) N25.81 Polycystic renal disease Q61.3 PAF (paroxysmal atrial fibrillation) ([facility]) I48.0 Primary insomnia F51.01 Pruritic condition L29.9 Moderate late onset Alzheimer's dementia without behavioral disturbance, psychotic disturbance, mood disturbance, or anxiety ([facility]) G30.1, F02.B0 BPH without obstruction/lower urinary tract [...] SIMPLE 2012 MRI compatible brain aneurysm clip [facility] Presby COLONOSCOPY INFORMATION removal of benign neoplasm [...] list as this cannot be edited in [employer]. Review of Systems: obtained from pt and staff Constitutional ROS: No change in weight, + weakness, + fatigue and No fevers, sweats, or chills Nose ROS: No nasal stuffiness and No significant epistaxis Mouth/Throat ROS: No thrush or No sore throat Neck ROS: No lumps or masses, No swollen glands, No recent swelling in thyroid area and No significant pain in neck Pulmonary ROS: + cough, sputum, or hemoptysis, +wheezing, +shortness of breath and No recent changein breathing Cardiovascular ROS: No chest pain, + shortness of breath, No edema, No palpitations and No syncope Gastrointestinal ROS: see HPI Skin/Integumentary ROS: No rash and No itching Neurologic ROS: No headaches and No seizures Psychiatric ROS: No depression, No anxiety and No psychosis +PTSD and dementia Sleep: No sleep disorders OBJECTIVE: PHYSICALEXAM: I reviewed the most recent facilities vitals. General: alert, mild distress, thin Head: Normocephalic, No masses, lesions, tenderness or [...] chest wall tenderness, lungs decreased BS in bases with scattered rhonchi which is pt's baseline Abdomen: abdomen soft, protuberant abdomen with increasing ascites. Generalized tenderness to palpation no guarding or rebound Extremities: no edema, no clubbing, no cyanosis Neuro Exam: alert with fluent speech, no focal motor/sensory deficits Skin: skin color, texture, turgor are normal, no rashes or significant lesions. No jaundice ASSESSMENT: Alcoholic cirrhosis of liver with ascites (HCC) (Primary) Worsening ascites with abdominal discomfort GI/surgical consults pending Pt having increasing abdominal discomfort Will need to send to ED for further evaluation and Rx. ESRD on dialysis (HCC) Polycystic renal disease COPD, moderate (HCC) Anemia in chronic kidney disease, on chronic dialysis (HCC) PAF (paroxysmal atrial fibrillation) (HCC) Moderate late onset Alzheimer's dementia without behavioral disturbance, psychotic disturbance, mood disturbance, or anxiety (HCC) Urothelial lesion Scheduled for cystoscopy and fulguration of bladder lesion in March. PT HAVING CLEAR RHINORRHEA AND COUGH. WILL SCREEN FOR COVID 19 IN FACILITY PLAN: I HAD LENGTHY FACE TO FACE CONVERSATION WITH PT'S DAUGHTER WHO IS ACTIVELY INVOLVED IN PT'S CARE BECAUSE PT IS HAVING INCREASING ASCITES AND DISCOMFORT AND GI/SURGICAL CONSULTS ARE STILL PENDING, IT WAS DECIDED THAT PT SHOULD BE TRANSFERRED TO ED FOR FURTHER EVALUATION AND TREATMENT. PT EXPRESSED AND UNDERSTANDING AND REQUESTED TO HAVE ED EVALUATION ALSO. [facility] Given: Electronically signed by: Brianna Orozco PA-C Over 45 minutes were spent in this visit more than half the time was spent counselling or coordinating care. documented in this encounter Plan of Treatment Health Maintenance Due Date Last Done Comments Pneumococcal Vaccine: 65+ Years (1 - PCV) 1956 Depression Screening, Annual for Pts 12 and Over 1962 Alpha-1 Antitrypsin 1968 Hepatitis C Screening 1968 O2 ASSESSMENT COMPLETED IN PAST YEAR FOR COPD 1968 Zoster Vaccines (1 of 2) 1969 Cologuard 1995 Colonoscopy 1995 Colorectal Cancer Screening 1995 Fecal Occult Blood Test 1995 Sigmoidoscopy 1995 LUNG CANCER SCREENING - USE SMARTSET 40854 2000 Hepatitis B (1 of 3 - [...] on dialysis (HCC) End stage renal disease Polycystic renal disease Polycystic kidney, unspecified type COPD, moderate (HCC) Chronic airway obstruction, not elsewhere classified Anemia in chronic kidney disease, on chronic dialysis (HCC) PAF (paroxysmal atrial fibrillation) (HCC) Atrial fibrillation Moderate late onset Alzheimer's dementia without behavioral disturbance, psychotic disturbance, mood disturbance, or anxiety (HCC) Urothelial lesion Unspecified disorder of urethra and urinary tract documented in this encounter Care Teams Associate Biological Sales Relationship Specialty Start Date End Date Jona Dominguez DO PCP - General 08/13/05 documented as of this encounter
--- OUTSIDE RECORDS SUMMARY | 2023-05-02 05:09 | External Medical Summary | Continuity Of Care Document ---
Author Name Unknown Address [address] [place] [address] Organization [facility] ( ) Care Team Providers Care General Maintenance Technician Name Role Phone BrandonCarlitoslubacarolina Primary Care Provider [phone] VITAL SIGNS Date Time Diastolic blood pressure Systolic blood pressure Body height Body weight Temperature SpO2 Blood Sugar Pulse Respirations 813 85160 5 97.00 mm[Hg] - Sitting 137.00 mm[Hg] - Sitting 97.70 Ear 87.00/ min 15571 815 15286 3 66.00 mm[Hg] - Sitting 123.00 mm[Hg] - Sitting 84.00 % 824 50459 0 60.00 mm[Hg] - Sitting 125.00 mm[Hg] - Sitting 172.00 NI 98.20 Ear 87.00/ min 42622 907 95741 8 87.00 mm[Hg] - Sitting 134.00 mm[Hg] - Sitting 180.00 NI 97.50 Ear 95.00 % 20.00/min 93876 907 51092 3 87.00 mm[Hg] - Sitting 134.00 mm[Hg] - Sitting 97.50 Oral 76.00/ min 20.00/min 91881 908 81250 7 Immunizations Vaccine Date Status COVID-19 09/11/2020 Completed COVID-19 10/08/2020 Completed COVID-19 12/16/2022 Completed Influenza 03/21/2022 Completed (PCV13)Pneumococcal 04/19/2017 Completed (PPSV23)Pneumococcal 02/08/2019 Completed Shingles 10/02/2021 Completed Tetanus 04/07/2011 Completed H1N1 08/07/2009 Completed Shingles 2 04/10/2022 Completed
--- OUTSIDE RECORDS SUMMARY | 2023-05-02 08:05 | External Medical Summary | Summary of Care ---
Author Name Unknown Organization [facility] Address [address] [place] [address] Phone [phone] Care Team Providers Care [employer] Supervisor Name Role Phone Avtar Dominguez Primary Care Provider [phone] Reason for Visit * Reason Onset Date Comments Detention Visit 04/27/2023 Regulatory Encounter Details Date Type Department Care Team (Latest Contact Info) Description 04/27/2023 9:30 AM EST Detention Visit [facility] [address] [place] [address] Brianna Orozco PA-C [address] [place] [address] ESRD on dialysis (HCC)*; Anemia in chronic kidney disease, on chronic dialysis (HCC); COPD, moderate (HCC); Ascites due to alcoholic cirrhosis (HCC); Renal artery stenosis (HCC); 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); PAF (paroxysmal atrial fibrillation) ([facility]); 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 behavioral disturbance, psychotic disturbance, mood disturbance, or anxiety (HCC); PTSD (post-traumatic stress disorder) Allergies Active Allergy Reactions Criticality Noted Date Comments Lisinopril 04/09/2023 documented as of this encounter (statuses as of 04/27/2023) Medications Medication Sig Dispensed Refills Start Date [...] Syringe Inject as directed. 0 01/21/2023 Active Ipratropium-Albute rol 0.5-2.5 (3) MG/3ML Inhalation Solution (Duoneb) Inhale [...] cut, crush or chew 0 01/21/2023 Active [place]umberland Caps 1 MG Oral Capsule Take 1 Capsule by mouth in the morning. 0 01/21/2023 Active Stiolto Respimat 2.5-2.5 MCG/ACT Inhalation Aerosol Solution (Tiotropium-Olodat lindy) Inhale 2 Puffs by mouth in the [...] 02/25/2023 Active Albumin Human 25 % Intravenous SolutionIndication s:Alcoholic cirrhosis of liver with ascites (HCC) 25Gm before and after paracentesis 100 mL 0 04/09/2023 Active PEG 5650-MDb-UaAsi-NaC l-NaSulf 236 GM Oral Solution Reconstituted Take according to coloscopy prep instructions. 4000 mL 0 04/09/2023 Active hydrOXYzine HCl 10 MG Oral Tablet (Atarax) Take 1 Tablet by mouth every 4 hours as needed for Itching. 0 04/27/2023 Active hydrOXYzine HCl 10 MG Oral Tablet (Atarax) Take 1 Tablet by mouth in the morning and 1 Tablet at noon and 1 Tablet in the evening and 1 Tablet before bedtime. 0 01/21/2023 Discontinue d(Refill) documented as of this encounter (statuses as of 04/27/2023) Active Problems Problem Noted Date Diagnosed Date [...] as of this encounter (statuses as of 04/27/2023) Immunizations Name Administration Dates Next Due Seasonal [...] 05/04/2023 10:30 AM EST Office Visit Orthopaedics [facility] [address] [place] [address] Ciara Major PA-C [address] [place] [address] 07/14/2023 9:20 AM EST Office Visit Dermatology [address] [place] [address] Jessica Williamson PA-C [address] [place] [address] [place] [address] 08/19/2023 11:40 AM EST Office Visit Hepatology, [facility] [address] [place] [address] Latoya Selby DO [address] [place] [address] Health Maintenance Due Date Last Done Comments Pneumococcal Vaccine: 65+ Years (1 - PCV) 1956 Depression Screening 1962 O2 ASSESSMENT COMPLETED IN PAST YEAR FOR COPD 1968 Cologuard 1995 Colonoscopy 1995 Colorectal Cancer Screening 1995 Fecal Occult Blood Test 1995 Sigmoidoscopy 1995 LUNG CANCER SCREENING - USE SMARTSET 99180 2000 Zoster Vaccines (1 of 2) 2000 [...] dialysis (HCC)- Primary End stage renal disease Anemia in chronic kidney disease, on chronic dialysis (HCC) COPD, moderate (HCC) Chronic airway obstruction, not elsewhere classified Ascites due to alcoholic cirrhosis (HCC) Renal artery stenosis (HCC) Atherosclerosis of renal artery 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) PAF (paroxysmal atrial fibrillation) (HCC) Atrial fibrillation 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 behavioral disturbance, psychotic disturbance, mood disturbance, or anxiety (HCC) PTSD (post-traumatic stress disorder) Posttraumatic stress disorder documented in this encounter Care Teams [employer] Supervisor Relationship Specialty Start Date End Date Jona Dominguez DO PCP - General 08/13/05 documented as of this encounter
--- OUTSIDE RECORDS SUMMARY | 2023-05-02 08:05 | External Medical Summary | Summary of Care ---
Author Name Unknown Organization [facility] Address [address] [place] [address] Phone [phone] Care Team Providers Care Observation Assistant Name Role Phone Avtar Dominguez Primary Care Provider [phone] Reason for Visit * Reason Onset Date Comments Half-Way Visit 04/27/2023 Regulatory Encounter Details Date Type Department Care Team (Latest Contact Info) Description 04/27/2023 9:30 AM EST Half-Way Visit [facility] [address] [place] [address] Brianna Orozco PA-C [address] [place] [address] ESRD on dialysis (HCC)*; Anemia in chronic kidney disease, on chronic dialysis (HCC); COPD, moderate (HCC); Ascites due to alcoholic cirrhosis (HCC); Renal artery stenosis (HCC); 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); PAF (paroxysmal atrial fibrillation) ([facility]); 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 behavioral [...] cut, crush or chew 0 01/21/2023 Active Salem Caps 1 MG Oral Capsule Take 1 [...] paracentesis 100 mL 0 04/09/2023 Active PEG 7528-VHg-ZsAbi-NaC l-NaSulf 236 GM Oral Solution Reconstituted Take [...] Progress Notes * Brianna Orozco PA-C - 04/27/2023 12:58 PM EST REGULATORY VISIT TRANSITION EVENT: Type: Regulatory visit Date: April 27 Code Status: No Code Name: Sisi Redmond Date of : 1950 This note pertains to care provided at [facility]. Please see facility medical record for original note. This note is not to be edited or addended in [employer]. Editing or addending needs to occur in the facilities medical record. S: Sisi Redmond seen today as part of a regulatory visit. Has history of : Patient Active Problem List Diagnosis Code FX CORONOID PROC ULNA-CL S52.043A DISLOCAT ELBOW NEC-CLOSE S53.196A ESRD on dialysis ([facility]) N18.6, Z99.2 HTN, goal below 130/80 I10 Iron deficiency anemia D50.9 Slow transit constipation K59.01 PTSD (post-traumatic stress disorder) F43.10 COPD, moderate ([facility]) J44.9 Vitamin B1 deficiency E51.9 Vitamin D deficiency E55.9 Dry skin dermatitis L85.3 Secondary hyperparathyroidism of renal origin ([facility]) N25.81 Polycystic renal disease Q61.3 PAF (paroxysmal atrial fibrillation) ([facility]) I48.0 Primary insomnia F51.01 Pruritic condition L29.9 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 behavioral disturbance, psychotic disturbance, mood disturbance, or anxiety ([facility]) G30.1, F02.A0 BPH without obstruction/lower urinary tract symptoms N40.0 Benign neoplasm of skin of nose D23.39 Diverticulosis of large intestine without hemorrhage K57.30 Chronic gout without tophus M1A.9XX0 History of intracranial hemorrhage Z86.79 History of nontraumatic rupture of cerebral aneurysm Z86.79 Colon polyp K63.5 History of tobacco use Z87.891 Personal history of alcoholism ([facility]) F10.21 Full code status Z78.9 Coarse tremors [...] SIMPLE 2012 MRI compatible brain aneurysm clip [facility] Presby COLONOSCOPY CYSTOSCOPY/BIOPSY 03/29/2023 cystoscopy, fulgaration of bladder lesion. Dr Reyna, [facility] INFORMATION removal of benign neoplasm nose AL CREAT AV FISTULA,AUTOGENOUS GRAFT Left 03/23/2023 Dr. [...] of patient's allergies indicates: Allergen Reactions Lisinopril He is now having acute problem(s). Current problems include pt established with dialysis three daysweekly and recent establishment with hepatology for ascites due to liver cirrhosis. Pt is undergoing abdominal paracentesis Q 7 to 10 days as outpatient. He will be having UGIE per hepatology recommendations. Is not having pain issues. Is not having behavioral problems. Labs done routinely at dialysis center. ROS: CONSTITUTIONAL: No change in weight, No change in weakness, No change in fatigue, and No fevers, sweats, or chills EARS: No ear pain, No drainage, No tinnitus or vertigo, and No recent change in hearing NOSE: No history of frequent colds or sinusitis, No nasal stuffiness, No history of Hay Fever, and No significant epistaxis MOUTH: No bleeding gums, No thrush, or No sore throat PULMONARY: Positive for dyspnea on exertion , productive cough , wheezing , and COPD CARDIOVASCULAR: No chest pain, No orthopnea, No paroxysmal nocturnal dyspnea, No palpitations, and No syncope GASTROINTESTINAL: see HPI SKIN/INTEGUMENTARY: Positive for itching due to renal disease PSYCHIATRIC: + depression and PTSD and dementia ENDOCRINE: No heat intolerance, No cold intolerance, No thyroid trouble, and No excessive thirst orurination SLEEP: No sleep disorders O: I reviewed the most recent facilities vitals. General: alert, no distress, and thin, frail Eye Exam: PERRLA, extraocular movements intact, conjunctiva are pink and non- injected, sclera clear Ears: External ears normal, Canals clear, TM's Normal Nose: no mucosal erythema, no mucosal edema, no purulent discharge Oropharynx: no exudate, no erythema, lips, buccal mucosa, and tongue normal, and mucous membranes are moist Neck: supple, no adenopathy, no JVD, thyroid normal size, non-tender, without nodularity Heart: regular rate & rhythm, no murmur, and no gallops Lungs: chest symmetric with normal AP diameter, no chest deformities noted, no chest wall tenderness, coarse sounds heard, decreased breath sounds Abdomen: abdomen soft, non-tender, normal bowel sounds, no masses or organomegaly, and + protuberant with ascites Extremities: no edema, no skin discoloration, no clubbing, no cyanosis A: ESRD on dialysis (HCC) (Primary) Follows with dialysis center Continue Salem caps daily Continue with Auryxia 420mg TID AC, Cinacalcet 30mg daily Anemia in chronic kidney disease, on chronic dialysis (HCC) Continue Mckinley caps daily Continue with Auryxia 420mg TID AC, Cinacalcet 30mg daily COPD, moderate (HCC) Stable Conitnue Stiolto 2.5mcg two puffs daily Ascites due to alcoholic cirrhosis (HCC) Continue with abdominal paracentesis as scheduled Follows with hepatology as directed Renal artery stenosis (HCC) 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) PAF (paroxysmal atrial fibrillation) (HCC) Stable rate Continue with Amiodarone 200mg daily 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 behavioral disturbance, psychotic disturbance, mood disturbance, or anxiety (HCC) Stable mood and mentation Continue with Trazodone 50mg HS PTSD (post-traumatic stress disorder) Stable mood and mentation Continue with Trazodone 50mg HS P: Medications reviewed. Please refer to MAR in the facility's medical record for the most up-to-date medication list. Continue present medication(s): Reviewed correction record for: vital signs, weight, bowel, and bladder function, and ADLs. Labs reviewed Continue current treatment plan as ordered Continue to follow up as needed and as scheduled Assisted Home Treatment Given: as above Electronically signed by: Brianna Orozco PA-C documented in this encounter Plan of Treatment Upcoming Encounters Date Type Department Care Team (Late st Contact Info) Description 05/04/2023 10:30 AM EST Office Visit Orthopaedics [facility] [address] [place] [address] Ciara Major PA-C [address] [place] [address] 07/14/2023 9:20 AM EST Office Visit Dermatology [address] [place] [address] Jessica Williamson PA-C [address] [place] [address] [place] [phone] 08/19/2023 11:40 AM EST Office Visit Hepatology, [facility] [address] [place] [address] Latoya Selby DO [address] [place] [address] Health Maintenance Due Date Last Done Comments Pneumococcal Vaccine: 65+ Years (1 - PCV) 1956 Depression Screening 1962 O2 ASSESSMENT COMPLETED IN PAST YEAR FOR COPD 1968 Cologuard 1995 Colonoscopy 1995 Colorectal Cancer Screening 1995 Fecal Occult Blood Test 1995 Sigmoidoscopy 1995 LUNG CANCER SCREENING - USE SMARTSET [address]15 2000 Zoster Vaccines (1 of 2) 2000 [...] disorder documented in this encounter Care Teams Observation Assistant Relationship Specialty Start Date End Date Jona Dominguez DO PCP - General 08/13/05 documented as of this encounter
== END 2023-04-30 15:46 | DRG 388 ==
LOC: ED 14:37 → SUATTDRO 18:26 → 2S 18:26 → 3E 04-30 00:18

== ENCOUNTER 2023-06-18 10:23 | Inpatient (IN) ==
--- NOTE | 2023-06-18 10:52 | Emergency Department Note ---
Impression & Plan Weakness, Fall, End-stage renal disease (ESRD) ED Provider Note NAME: ALEX LAMAS AGE: 72 SEX: M : 1950 ARRIVES VIA: Ambulance INFORMANT: Patient ED PROVIDER(S): Trent Dan DO CHIEF COMPLAINT: fall, weak HPI: Patient is a 72-year-old male with past medical history of chronic respiratory failure on 2 L nasal cannula, end-stage renal disease on dialysis, paroxysmal A-fib, COPD who presents to the ER for a fall. His daughter who is present at bedside but notes that he has been extremely weak and has been having trouble getting around from the longterm. He has had increased swelling to the bilateral legs, arms, and face. He denies hitting his head today. No chest pain or shortness of breath. He admits to left shoulder pain. No dysuria, urgency, or frequency as he does not make much urine at all. Gets dialysis Wednesday, Wednesday, and Wednesday. Did not get dialysis today. ADDITIONAL HISTORY OBTAINED: Per HPI Chronic Medical/Social Conditions Affecting Care: Per HPI PAST MEDICAL HISTORY:See Below PAST SURGICAL HISTORY:See Below FAMILY HISTORY:See Below SOCIAL HISTORY:See Below HOME MEDICATIONS:See Below ALLERGIES:See Below VITALS:See Below PHYSICAL EXAMINATION: GENERAL: Sitting up in bed, alert, well appearing, well nourished, no distress, non-toxic HEAD: Watery edema around bilateral eyes EYE EXAM: normal conjunctiva. PERRL and EOM's grossly intact. OROPHARYNX: no exudate, no erythema, lips, buccal mucosa, and tongue normal and mucous membranes are moist NECK: supple, no nuchal rigidity, no adenopathy, non-tender LUNGS: Clear to auscultation. Normal chest wall mechanics HEART: no murmurs, S1 normal and S2 normal ABDOMEN: abdomen soft, non-tender, normo-active bowel sounds, no masses, no rebound or guarding. BACK: Back is symmetrical on inspection and there is no deformity, no midline tenderness, no CVA tenderness. SKIN: Diffuse bruising in the bilateral upper extremity UPPER EXTREMITIES: Flexion and extension right shoulder elbow wrist and grasp without tenderness to the entire right upper extremity. Tenderness and bruising to the left humeral head with erythema and edema of the entire left upper extremity LOWER EXTREMITIES: Edema in the bilateral lower extremities NEURO EXAM: Oriented to person but not month or year, cranial nerves II-XII intact, normal speech, no weakness of arms, no weakness of legs. MEDICAL DECISION MAKING: Patient is a 72-year-old male who presents to the ER for the above-stated complaint. Patient has been weak, slightly confused and recurrent falls. IV was established blood work is obtained. Labs show no significant leukocytosis. Mild anemia 10.3. BMP with creatinine 7. Potassium was appropriate 4. LFTs bilirubin were unremarkable. Troponin was elevated at 63. BMP 1400. Lipase is unremarkable. CT of the head, cervical spine were unremarkable. X-rays of the chest and humerus were unremarkable. Patient with diffuse pitting edema. Covered broadly with Rocephin to be on the safe side. Was updated bedside discussed with [facility] hospitalist initially and then [facility] was [facility]. Also discussed with nephrology as patient will need dialysis at some point during the stay. Consults/Care Managements Discussions: Per [facility] Triage Nursing notes reviewed. Limited review of prior medical records performed Vital Signs: reviewed and remarkable for no significant abnormalities Differential diagnosis: Infection, dehydration, metabolic abnormality, hypo/hyperglycemia, electrolyte disturbance, anemia, hypoxia, cardiac sources, intracerebral event, toxicologic, neurologic, as well as other pathologies. ER treatment provided: See below Diagnostics interpreted by me include EKG and cardiac monitoring as listed below: -Cardiac Monitoring: An order was placed for continuous cardiac monitoring. The monitor shows a rate of 70 with sinus rhythm. -ECG: Sinus rhythm rate of 74 Normal axis No PVCs QTc 477 -Laboratory studies:Interpreted by me as stated above in MDM and shown below. Imaging studies: Xrays: As interpreted by me: Portable AP upright 1 view of the chest shows no focal Motrin CTs show: CT head and cervical spine was unremarkable Procedures:none Critical Care: None Past Med/Surg History Medical History Bladder mass Cirrhosis of liver Ascites Confusion Ruptured middle cerebral artery aneurysm Seizure disorder Myoclonic jerking Bradycardia History of marijuana use daily Hx of atrial flutter 06/2021, hospitalized w/pneumonia for almost 3 weeks; dx atrial flutter- currently amiodarone; f/u dr[place] Paroxysmal atrial flutter Vitamin D deficiency Hypercalcemia Diverticulosis PAF (paroxysmal atrial fibrillation) Gout hx CCPD (continuous cycling peritoneal dialysis) status port in place left abdomen--dialysis daily at home; second port that has been placed for dialysis. Tremor of both hands Alzheimer disease Hypertension On home oxygen therapy 2L N/C at hs Low back pain Hemorrhoids "not currently flared" Benign neoplasm of skin of nose removed once COPD (chronic obstructive pulmonary disease) HTN (hypertension) Anemia Intracranial hemorrhage 2012 Secondary hyperparathyroidism (of renal origin) Benign prostate hyperplasia Polycystic kidney disease, adult type (09/03/12) Surgical History History of colonoscopy History of tooth extraction all teeth History of cerebral aneurysm repair 2012 [facility] Presby--clip in place; clip IS MRI COMPATIBLE Family History Mother , age 65 of cancer Cancer Father , age 60 from a tree falling on him No problems noted. Other No family history of adverse response to anesthesia Denies family history of Myocardial infarction Social History Smoking Status: Former smoker Tobacco Type: Cigarettes Age Started Using Tobacco: 16; Age Quit Using Tobacco: 71; packs per day: 1; Second Hand Exposure: No; Do You Dip or Chew Tobacco: No; Hx Alcohol Use: No Hx Substance Use: Yes Last Used Substance: Unknown Last Used Substance Other:: last used 2-3 months ago Preferred Language: Tajik Communication Ability: Effective Communication Ability Comment: pt can sign own consent Radiation Physicist Required: No Beliefs That Will Affect Care: None marital status: Single Current Living Situation: Alf Current Living Situation Comment: granddaughter and grandson How many Children do You have: 1 Feels Safe at Home: Yes Assistive Devices: Walker Allergies Allergies Allergy/AdvReac Type Severity Reaction Status Date / Time lisinopril AdvReac Intermediate COUGH Verified 06/18/23 15:28 Home Meds Home Medications Medication Instructions Recorded Confirmed polyethylene glycol 3350 17 17 g PO DAILY Constipation 06/30/21 06/18/23 gram/dose oral powder (Miralax) docusate sodium 100 mg capsule 400 mg PO BID 07/31/21 06/18/23 (Colace) cinacalcet 30 mg tablet (Sensipar) 30 mg PO QAM 03/27/22 06/18/23 epinephrine 0.3 mg/0.3 mL 0.3 mg IM Q4H PRN as directed 08/29/22 06/18/23 injection, auto-injector (EpiPen) ipratropium 0.5 mg-albuterol 3 mg 3 ml inhalation QS PRN Shortness 08/29/22 06/18/23 (2.5 mg base)/3 mL nebulization Of Breath Or Wheezing soln amiodarone 200 mg tablet 200 mg PO QPM 11/17/22 06/18/23 divalproex 500 mg tablet,delayed 500 mg PO QAM 11/17/22 06/18/23 release acetaminophen 325 mg tablet 650 mg PO Q4 PRN Fever Or Pain 01/05/23 06/18/23 (Tylenol) cholecalciferol (vitamin D3) 125 5,000 unit PO QPM 01/05/23 06/18/23 mcg (5,000 unit) capsule thiamine HCl (vitamin B1) 100 mg 100 mg PO QAM 01/05/23 06/18/23 tablet bisacodyl 5 mg tablet,delayed 5 mg PO DAILY PRN Constipation 02/18/23 06/18/23 release (Dulcolax (bisacodyl)) guaifenesin 1,200 mg tablet, 1,200 mg PO BID PRN Congestion 02/18/23 06/18/23 extended release 12 hr (Mucinex) hydroxyzine HCl 10 mg tablet 20 mg PO TID PRN Itching 02/18/23 06/18/23 tramadol 50 mg tablet 50 mg PO Q6H PRN Pain, Moderate 02/18/23 06/18/23 trazodone 50 mg tablet 50 mg PO HS 02/18/23 06/18/23 famotidine 20 mg tablet 20 mg PO DIRECTED 04/27/23 06/18/23 melatonin 5 mg tablet 15 mg PO HS 04/27/23 06/18/23 cephalexin 500 mg capsule 500 mg PO TID 06/18/23 06/18/23 furosemide 40 mg tablet 40 mg PO QAM 06/18/23 06/18/23 vitamin B complex-vitamin C-folic 1 tab PO DAILY 06/18/23 06/18/23 acid 0.8 mg tablet ([place]-Ancelmo) Previous Rx's Medication Instructions Recorded tiotropium 2.5 mcg-olodaterol 2.5 2 puff inhalation QAM #4 grams 02/18/21 mcg/actuation mist for inhalation (Stiolto Respimat) ferric citrate 210 mg iron tablet 420 mg (2 x 210 mg iron) PO 09/06/22 (Auryxia) TIDWMEAL #1 tab loratadine 10 mg tablet (Wal-itin) 10 mg PO Q2D #0 tabs 12/10/22 Results & Data (ED) Vital Signs Vital Signs - 24 hr 06/18/23 10:48 06/18/23 10:54 06/18/23 10:54 Temperature 37.1 C Temperature Source Oral Pulse Rate 79 77 Pulse Rate [Apical] 77 Respiratory Rate 20 20 Respiratory Effort / Characteristics Non-Labored Spontaneous Non-Labored Spontaneous Respiratory Depth Normal Normal Respiratory Pattern Regular Regular Blood Pressure 157/76 H Blood Pressure [Right Arm] 157/76 H Blood Pressure Mean 103 Blood Pressure Mean [Right Arm] 103 Pulse Oximetry 98 98 Oxygen Delivery Method Nasal Cannula Nasal Cannula Oxygen Flow Rate 2 2 Sepsis New/Unexplained Change in Mental Status No Sepsis Action Taken by Nursing No Action Required 06/18/23 10:54 06/18/23 12:15 06/18/23 14:00 Temperature Temperature Source Pulse Rate 77 Pulse Rate [Apical] 68 75 Respiratory Rate 20 18 22 Respiratory Effort / Characteristics Non-Labored Respiratory Depth Normal Respiratory Pattern Blood Pressure Blood Pressure [Right Arm] 135/71 124/70 Blood Pressure Mean Blood Pressure Mean [Right Arm] 92 88 Pulse Oximetry 98 94 98 Oxygen Delivery Method Room Air Room Air Nasal Cannula Oxygen Flow Rate 2 Sepsis New/Unexplained Change in Mental Status Sepsis Action Taken by Nursing 06/18/23 14:47 Temperature Temperature Source Pulse Rate 73 Pulse Rate [Apical] Respiratory Rate Respiratory Effort / Characteristics Respiratory Depth Respiratory Pattern Blood Pressure Blood Pressure [Right Arm] Blood Pressure Mean Blood Pressure Mean [Right Arm] Pulse Oximetry Oxygen Delivery Method Oxygen Flow Rate Sepsis New/Unexplained Change in Mental Status Sepsis Action Taken by Nursing Laboratory Data 06/18/23 11:44 06/18/23 11:44 Lab Results 06/18/23 Range/Units 11:44 WBC 6.01 (4.8-10.8) K/ul RBC 3.50 L (4.70-6.10) M/uL Hgb 10.3 L (14.0-18.0) g/dl Hct 31.8 L (42.0-52.0) % MCV 90.9 (80.0-100.0) fL MCH 29.4 (25.0-34.0) pg MCHC 32.4 (32.0-36.0) g/dL RDW Std Deviation 51.8 H (36.4-46.3) fL RDW Coeff of Giovana 15.6 H (11.5-14.5) % Plt Count 274 (130-400) K/uL MPV 9.3 L (9.4-12.4) fL Immature Gran % (Auto) 0.8 % Neut % (Auto) 66.5 % Lymph % (Auto) 13.6 % Glades % (Auto) 14.6 % Eos % (Auto) 3.5 % Baso % (Auto) 1.0 % Neut # (Auto) 3.99 (1.40-6.50) K/uL Lymph # (Auto) 0.82 L (1.20-3.40) K/uL Glades # (Auto) 0.88 H (0.11-0.59) K/uL Eos # (Auto) 0.21 (0.00-0.50) K/uL Baso # (Auto) 0.06 (0.00-0.20) K/uL Immature Gran # (Auto) 0.05 (0.01-0.20) K/uL Sodium 135 L (136-145) mmol/L Potassium 4.0 (3.5-5.1) mmol/L Chloride 100 (98-107) mmol/L Carbon Dioxide 27 (21-32) mmol/L Anion Gap 8 (3-11) BUN 69 H (6-23) mg/dl Creatinine 7.03 H* (0.6-1.4) mg/dl Est Cr Clr Drug Dosing 16.0 ml/min Est GFR ( Amer) 8.2 ml/min Est GFR (Non-Af Amer) 7.1 ml/min BUN/Creatinine Ratio 9.8 L (10-20) Glucose 94 (70-99(Fasting)) mg/dl Calcium 9.4 (8.6-10.3) mg/dl Total Bilirubin 0.4 (0.2-1.0) mg/dl AST 17 (13-39) U/L ALT 8 (7-52) U/L Alkaline Phosphatase 58 (34-104) U/L Troponin I High Sens 63.9 H* (0-20) pg/ml B-Natriuretic Peptide 1384 H (0-100) pg/ml Total Protein 5.6 L (6.0-8.3) gm/dl Albumin 2.6 L (3.4-5.0) gm/dl Globulin 3.0 (2.5-4.0) gm/dl Albumin/Globulin Ratio 0.9 (0.9-2) Lipase 7 L (11-82) U/L Administered Medications Discontinued Medications Ceftriaxone Sodium (Rocephin) 2,000 mg in 50 mls @ 100 mls/hr IV NOW STA Stop: 06/18/23 11:40 Last Infusion: 06/18/23 14:36 Dose: Infused Documented By: Admin: 06/18/23 13:41 Dose: 100 mls/hr Documented By: MMG Imaging Data Radiologist's Impression: Cervical Spine CT 06/18/23 10:49 CT SCAN OF THE CERVICAL SPINE CLINICAL HISTORY: Fall. COMPARISON STUDY: CT of the cervical spine dated 09/01/2022. TECHNIQUE: CT scan of the cervical spine is performed from the skull base to the upper thoracic spine. Images are reviewed in the axial, sagittal, and coronal planes. IV contrast was not administered for this examination. A dose lowering technique was utilized adhering to the principles of ALARA. FINDINGS: Skeletal structures: The skeletal structures are osteopenic. There is no evidence of fracture or subluxation involving the cervical spine. Vertebral body height and alignment are maintained throughout the cervical spine. There are minimal chronic superior endplate compression deformities of T1 and T2. There is straightening of the cervical lordosis. Anterior osteophytes are seen throughout. The odontoid process and lateral masses are intact. The atlantoaxial articulation is preserved noting productive degenerative change. The spinous processes appear intact. There is moderate multilevel cervical spondylosis. Uncovertebral and facet arthropathy contributes to neuroforaminal narrowing at several levels. Intervertebral discs: There is moderate disc space narrowing at C5-C6 and C6-C7 with endplate sclerosis. Mild narrowing is seen at the remaining cervical levels. Central canal: Grossly patent. Soft tissues: The prevertebral and paraspinous soft tissues are within normal limits. There is atherosclerotic calcification of the carotid bulbs. A left internal jugular central venous catheter is noted. Calvarium: The visualized calvarium at the skull base appears intact. Brain parenchyma: Partially visualized brain parenchyma at the skull base is within normal limits. Sinuses and mastoids: There is mucosal thickening in the left maxillary antrum. There is a right mastoid effusion. The left mastoid air cells are well pneumatized. Lung apices: Emphysematous change and fibrosis is noted at both apices. IMPRESSION: 1. There is no evidence of fracture or subluxation involving the cervical spine. 2. Osteopenia and spondylitic change as above. 3. Emphysema. ACT 112: Negative or not required by law. Electronically signed by: Jeet Ramirez M.D. 06/18/2023 11:35 AM Chest X-Ray 06/18/23 10:49 XR chest 1V portable HISTORY: 72 years-old Male fall acute chest trauma status post fall COMPARISON: Chest radiograph 04/27/2023 TECHNIQUE: AP view of the chest FINDINGS: Cardiac silhouette is enlarged. Left subclavian dual-lead hemodialysis catheter. Emphysema. Interstitial coarsening with patchy bilateral airspace opacities again noted. No pneumothorax or large pleural effusion. Bones appear grossly intact. IMPRESSION: 1. Cardiomegaly with unchanged mixed interstitial and alveolar opacities, likely representing fibrosis. 2. Emphysema. 3. No pneumothorax. ACT 112: Negative or not required by law. The above report was generated using voice recognition software. It may contain grammatical, syntax or spelling errors. Electronically signed by: Bethel Logan M.D. 06/18/2023 12:[address] 06/18/23 10:49 CT SCAN OF THE BRAIN WITHOUT IV CONTRAST CLINICAL HISTORY: Fall. COMPARISON STUDY: CT of the brain dated 11/01/2022. TECHNIQUE: Unenhanced axial CT scan of the brain is performed from the vertex to the skull base. A dose lowering technique was utilized adhering to the principles of ALARA. CT DOSE: 1101.79 mGy.cm FINDINGS: Brain parenchyma: Foci of bifrontal and left temporal encephalomalacia are unchanged and consistent with remote insults. Surgical clips or coils are seen in the left temporal fossa. There is age-related involutional change noting mild subcortical and periventricular microangiopathic disease. There is no hemorrhage, mass effect, or evidence of acute territorial ischemia by CT criteria. Rosas-white matter differentiation is preserved. No extra-axial fluid collection is seen. Ventricles, sulci, cisterns: Prominent secondary to involutional change. Intracranial vasculature: There is atherosclerotic calcification of the cavernous carotid and vertebral arteries. Calvarium: There is postoperative change from left-sided craniotomy. No depressed calvarial fracture is identified. Soft tissues: There is left facial soft tissue contusion. Sinuses and mastoids there is moderate mucosal thickening in the left maxillary antrum. The remaining paranasal sinuses are clear. There is a small right mastoid effusion. The left mastoid air cells are well pneumatized. Orbits: The bony orbits are grossly intact. IMPRESSION: Chronic and postsurgical changes as above with no hemorrhage, mass effect, or evidence of acute territorial ischemia by CT criteria. ACT 112: Negative or not required by law. Electronically signed by: Jeet Ramirez M.D. 06/18/2023 11:25 AM Humerus X-Ray 06/18/23 10:49 LEFT HUMERUS 2 VIEWS CLINICAL HISTORY: Fall with left arm injury. FINDINGS: AP and lateral views of the left humerus are obtained. No prior studies are available for comparison at the time of dictation. The skeletal structures are osteopenic. There is no radiographic evidence of left humeral fracture. The shoulder and elbow joints are grossly maintained. The overlying soft tissues are normal as imaged. IMPRESSION: No acute bony abnormality is identified. Electronically signed by: Jeet Ramirez M.D. 06/18/2023 11:05 AM Discharge Plan Visit Data Chief Complaint: Fall Stated Complaint: FELL LAST NIGHT, INCREASED SWELLING TO FACE ED Provider: Trent Dan Discharge Problem: Weakness, Fall, End-stage renal disease (ESRD) Forms Stand Alone Forms: My [facility] Prescriptions Prescriptions: No Action Stiolto Respimat 2.5-2.5 mcg/actuation mist 2 puff INH QAM Qty: 4 5RF docusate sodium [Colace] 100 mg capsule 400 mg PO BID polyethylene glycol 3350 [Miralax] 17 gram/dose Powder 17 g PO DAILY ipratropium-albuterol 0.5 mg-3 mg(2.5 mg base)/3 mL solution for nebulization 3 ml INHALATION QS PRN (Reason: Shortness Of Breath Or Wheezing) Rx Instructions: ALSO LOW 02 SATS epinephrine [EpiPen] 0.3 mg/0.3 mL Auto-Injector 0.3 mg IM Q4H PRN (Reason: as directed) Auryxia 210 mg iron tablet 420 mg PO TIDWMEAL Qty: 1 0RF Rx Instructions: administer with a meal divalproex 500 mg tablet,delayed release (DR/EC) 500 mg PO QAM amiodarone 200 mg Tablet 200 mg PO QPM loratadine [Wal-itin] 10 mg Tablet 10 mg PO Q2D Qty: 0 0RF trazodone 50 mg Tablet 50 mg PO HS tramadol 50 mg Tablet 50 mg PO Q6H PRN (Reason: Pain, Moderate) bisacodyl [Dulcolax (bisacodyl)] 5 mg Tablet,Delayed Release (Dr/Ec) 5 mg PO DAILY PRN (Reason: Constipation) hydroxyzine HCl 10 mg Tablet 20 mg PO TID PRN (Reason: Itching) guaifenesin [Mucinex] 1,200 mg Tablet Extended Release 12hr 1,200 mg PO BID PRN (Reason: Congestion) furosemide 40 mg tablet 40 mg PO QAM cephalexin 500 mg capsule 500 mg PO TID Rx Instructions: End 06/19/2023 [place]-Ancelmo 0.8 mg Tablet 1 tab PO DAILY cinacalcet [Sensipar] 30 mg Tablet 30 mg PO QAM acetaminophen [Tylenol] 325 mg Tablet 650 mg PO Q4 MDD 3 GRAMS APAP/24 HOURS PRN (Reason: Fever Or Pain) thiamine HCl (vitamin B1) 100 mg tablet 100 mg PO QAM cholecalciferol (vitamin D3) 125 mcg (5,000 unit) capsule 5,000 unit PO QPM Rx Instructions: after supper famotidine 20 mg Tablet 20 mg PO DIRECTED Rx Instructions: TAKES DAILY ON WEDNESDAY, WEDNESDAY, & WEDNESDAY EVENING AFTER DIALYSIS. melatonin 5 mg Tablet 15 mg PO HS Referrals Referrals: Maximo Taylor MD [Primary Care Provider] - Discharge Problem: Fall Qualifiers: Encounter type: initial encounter Qualified Code(s): W19.XXXA - Unspecified fall, initial encounter
--- NOTE | 2023-06-18 11:06 | XRay Report ---
LEFT HUMERUS 2 VIEWS CLINICAL HISTORY: Fall with left arm injury. FINDINGS: AP and lateral views of the left humerus are obtained. No prior studies are available for c omparison at the time of dictation. The skeletal structures are osteopenic. There is no radiographic evidence of left humeral fracture. The shoulder and elbow joints are grossly maintained. The overlyin g soft tissues are normal as imaged. IMPRESSION: No acute bony abnormality is identified. Electronically signed by: Jeet Ramirez M.D. 06/18/2023 11:05 AM
[2023-06-18] MEDS ORDERED: cefTRIAXone SODIUM 2,000 MG/50 ML BAG IV STA (11:11)
--- NOTE | 2023-06-18 11:27 | CT Scan Report ---
CT SCAN OF THE BRAIN WITHOUT IV CONTRAST CLINICAL HISTORY: Fall. COMPARISON STUDY: CT of the brain dated 11/01/2022. TECHNIQUE: Unenhanced axial CT scan of the brain is performed from the vertex to the skull base. A do se lowering technique was utilized adhering to the principles of ALARA. CT DOSE: 1101.79 mGy.cm FINDINGS: Brain parenchyma: Foci of bifrontal and left temporal encephalomalacia are unchanged and consistent w ith remote insults. Surgical clips or coils are seen in the left temporal fossa. There is age-related involutional change noting mild subcortical and periventricular microangiopathic disease. There is n o hemorrhage, mass effect, or evidence of acute territorial ischemia by CT criteria. Rosas-white matte r differentiation is preserved. No extra-axial fluid collection is seen. Ventricles, sulci, cisterns: Prominent secondary to involutional change. Intracranial vasculature: There is atherosclerotic calcification of the cavernous carotid and vertebr al arteries. Calvarium: There is postoperative change from left-sided craniotomy. No depressed calvarial fracture is identified. Soft tissues: There is left facial soft tissue contusion. Sinuses and mastoids there is moderate mucosal thickening in the left maxillary antrum. The remaining paranasal sinuses are clear. There is a small right mastoid effusion. The left mastoid air cells are well pneumatized. Orbits: The bony orbits are grossly intact. IMPRESSION: Chronic and postsurgical changes as above with no hemorrhage, mass effect, or evidence of acute territorial ischemia by CT criteria. ACT 112: Negative or not required by law. Electronically signed by: Jeet Ramirez M.D. 06/18/2023 11:25 AM
--- NOTE | 2023-06-18 11:37 | CT Scan Report ---
CT SCAN OF THE CERVICAL SPINE CLINICAL HISTORY: Fall. COMPARISON STUDY: CT of the cervical spine dated 09/01/2022. TECHNIQUE: CT scan of the cervical spine is performed from the skull base to the upper thoracic spine . Images are reviewed in the axial, sagittal, and coronal planes. IV contrast was not administered fo r this examination. A dose lowering technique was utilized adhering to the principles of ALARA. FINDINGS: Skeletal structures: The skeletal structures are osteopenic. There is no evidence of fracture or subl uxation involving the cervical spine. Vertebral body height and alignment are maintained throughout t he cervical spine. There are minimal chronic superior endplate compression deformities of T1 and T2. There is straightening of the cervical lordosis. Anterior osteophytes are seen throughout. The odonto id process and lateral masses are intact. The atlantoaxial articulation is preserved noting productiv e degenerative change. The spinous processes appear intact. There is moderate multilevel cervical spo ndylosis. Uncovertebral and facet arthropathy contributes to neuroforaminal narrowing at several leve ls. Intervertebral discs: There is moderate disc space narrowing at C5-C6 and C6-C7 with endplate scleros is. Mild narrowing is seen at the remaining cervical levels. Central canal: Grossly patent. Soft tissues: The prevertebral and paraspinous soft tissues are within normal limits. There is athero sclerotic calcification of the carotid bulbs. A left internal jugular central venous catheter is note d. Calvarium: The visualized calvarium at the skull base appears intact. Brain parenchyma: Partially visualized brain parenchyma at the skull base is within normal limits. Sinuses and mastoids: There is mucosal thickening in the left maxillary antrum. There is a right mast oid effusion. The left mastoid air cells are well pneumatized. Lung apices: Emphysematous change and fibrosis is noted at both apices. IMPRESSION: 1. There is no evidence of fracture or subluxation involving the cervical spine. 2. Osteopenia and spondylitic change as above. 3. Emphysema. ACT 112: Negative or not required by law. Electronically signed by: Jeet Ramirez M.D. 06/18/2023 11:35 AM
[2023-06-18 12:29] LABS: Albumin Level 2.6 gm/dl (3.4-5.0); Bilirubin,Total 0.4 mg/dl (0.2-1.0); Calcium 9.4 mg/dl (8.6-10.3)
--- NOTE | 2023-06-18 12:32 | XRay Report ---
XR chest 1V portable HISTORY: 72 years-old Male fall acute chest trauma status post fall COMPARISON: Chest radiograph 04/27/2023 TECHNIQUE: AP view of the chest FINDINGS: Cardiac silhouette is enlarged. Left subclavian dual-lead hemodialysis catheter. Emphysema. Interstit ial coarsening with patchy bilateral airspace opacities again noted. No pneumothorax or large pleural effusion. Bones appear grossly intact. IMPRESSION: 1. Cardiomegaly with unchanged mixed interstitial and alveolar opacities, likely representing fibrosi s. 2. Emphysema. 3. No pneumothorax. ACT 112: Negative or not required by law. The above report was generated using voice recognition software. It may contain grammatical, syntax o r spelling errors. Electronically signed by: Bethel Logan M.D. 06/18/2023 12:31 PM
[2023-06-18 12:36] LABS: Basophils # (auto) 0.06 K/uL (0.00-0.20); Eosinophils # (auto) 0.21 K/uL (0.00-0.50); Eosinophils % (auto) 3.5 %; Hematocrit (blood only) 31.8 % (42.0-52.0); Hemoglobin 10.3 g/dl (14.0-18.0); Immature Granulocytes # (auto) 0.05 K/uL (0.01-0.20); Immature Granulocytes % (auto) 0.8 %; Lymphocytes # (auto) 0.82 K/uL (1.20-3.40); Lymphocytes % (auto) 13.6 %; Mean Corpuscular Hemoglobin 29.4 pg (25.0-34.0); Mean Corpuscular Hgb Conc 32.4 g/dL (32.0-36.0); Mean Corpuscular Volume 90.9 fL (80.0-100.0); Mean Platelet Volume 9.3 fL (9.4-12.4); Monocytes # (auto) 0.88 K/uL (0.11-0.59); Monocytes % (auto) 14.6 %; Neutrophils # (auto) 3.99 K/uL (1.40-6.50); Neutrophils % (auto) 66.5 %; Platelet Count 274 K/uL (130-400); RDW Coefficient of Variation 15.6 % (11.5-14.5); RDW Standard Deviation 51.8 fL (36.4-46.3); White Blood Count 6.01 K/ul (4.8-10.8)
[2023-06-18 12:43] LABS: Albumin Globulin Ratio 0.9 (0.9-2); BUN Creatinine Ratio 9.8 (10-20); Est GFR (African American) 8.2 ml/min; Est GFR (Non-African American) 7.1 ml/min; Total Protein 5.6 gm/dl (6.0-8.3); Troponin I High Sensitivity 63.9 pg/ml (0-20)
--- NOTE | 2023-06-18 13:46 | Electrocardiogram Report ---
Test Reason : Blood Pressure : / mmHG Vent. Rate : 074 BPM Atrial Rate : 074 BPM P-R Int : 248 ms QRS Dur : 120 ms QT Int : 430 ms P-R-T Axes : 038 -10 051 degrees QTc Int : 477 ms Sinus rhythm with 1st degree A-V block Abnormal ECG When compared with ECG of 27-APR-2023 14:38, No significant change was found Confirmed by Dre Adame ([id number]) on 06/18/2023 1:45:53 PM Referred By: REFERRED SELF Confirmed By:Master Adame
--- NOTE | 2023-06-18 14:20 | History & Physical Report ---
Date of Service June 18, 2023 History of Present Illness Chief Complaint: Fall Primary Care Provider: Maximo Taylor MD Patient is 72-year-old male with PMH ESRD on HD Wednesday, alcoholic liver cirrhosis with ascites requiring frequent paracentesis, anemia of chronic disease, COPD, chronic respiratory failure on paroxysmal atrial flutter, dementia, history of cerebral aneurysm s/p repair 2012, and others listed below presented to ER today from [facility] as was found on floor. History obtained from as well as outpatient chart review. It is reported patient was found lying on floor face down at 02:00 today and was noted to have left facial swelling and c/o left wrist pain and swelling. Reports when attempted to swallow pills today patient vomited. Reported patient with worsening weakness. States patient did not receive HD today. Requiring paracentesis every 10-12 days Allergies Allergy/AdvReac Type Severity Reaction Status Date / Time lisinopril AdvReac Intermediate COUGH Verified 04/27/23 15:11 Home Medications Medication Instructions Recorded Confirmed Type tiotropium 2.5 mcg-olodaterol 2.5 2 puff inhalation QAM #4 grams 02/18/21 04/27/23 Rx mcg/actuation mist for inhalation (Stiolto Respimat) polyethylene glycol 3350 17 17 g PO DAILY Constipation 06/30/21 04/27/23 History gram/dose oral powder (Miralax) docusate sodium 100 mg capsule 400 mg PO BID 07/31/21 04/27/23 History (Colace) cinacalcet 30 mg tablet (Sensipar) 30 mg PO QAM 03/27/22 04/27/23 History epinephrine 0.3 mg/0.3 mL 0.3 mg IM Q4H PRN as directed 08/29/22 04/27/23 History injection, auto-injector (EpiPen) ipratropium 0.5 mg-albuterol 3 mg 3 ml inhalation QS PRN Shortness 08/29/22 04/27/23 History (2.5 mg base)/3 mL nebulization Of Breath Or Wheezing soln amlodipine 2.5 mg tablet 2.5 mg PO DAILY #30 tabs 09/06/22 04/27/23 Rx ferric citrate 210 mg iron tablet 420 mg (2 x 210 mg iron) PO 09/06/22 04/27/23 Rx (Auryxia) TIDWMEAL #1 tab amiodarone 200 mg tablet 200 mg PO QPM 11/17/22 04/27/23 History divalproex 500 mg tablet,delayed 500 mg PO QAM 11/17/22 04/27/23 History release loratadine 10 mg tablet (Wal-itin) 10 mg PO Q2D #0 tabs 12/10/22 04/27/23 Rx acetaminophen 325 mg tablet 650 mg PO Q4 PRN Fever Or Pain 01/05/23 04/27/23 History (Tylenol) cholecalciferol (vitamin D3) 125 5,000 unit PO QPM 01/05/23 04/27/23 History mcg (5,000 unit) capsule thiamine HCl (vitamin B1) 100 mg 100 mg PO QAM 01/05/23 04/27/23 History tablet bisacodyl 5 mg tablet,delayed 5 mg PO DAILY PRN Constipation 02/18/23 04/27/23 History release (Dulcolax (bisacodyl)) guaifenesin 1,200 mg tablet, 1,200 mg PO BID PRN Congestion 02/18/23 04/27/23 History extended release 12 hr (Mucinex) hydroxyzine HCl 10 mg tablet 20 mg PO TID PRN Itching 02/18/23 04/27/23 History tramadol 50 mg tablet 50 mg PO Q6H PRN Pain, Moderate 02/18/23 04/27/23 History trazodone 50 mg tablet 50 mg PO HS 02/18/23 04/27/23 History famotidine 20 mg tablet 20 mg PO DIRECTED 04/27/23 04/27/23 History melatonin 5 mg tablet 15 mg PO HS 04/27/23 04/27/23 History vitamin B complex and vitamin C 1 cap PO DAILY 04/27/23 04/27/23 History no.20-folic acid 1 mg capsule (Virt-Caps) Past Med/Surg History Medical History Bladder mass Cirrhosis of liver Ascites Confusion Ruptured middle cerebral artery aneurysm Seizure disorder Myoclonic jerking Bradycardia History of marijuana use daily Hx of atrial flutter 06/2021, hospitalized w/pneumonia for almost 3 weeks; dx atrial flutter- currently amiodarone; f/u dr. [place] Paroxysmal atrial flutter Vitamin D deficiency Hypercalcemia Diverticulosis PAF (paroxysmal atrial fibrillation) Gout hx CCPD (continuous cycling peritoneal dialysis) status port in place left abdomen--dialysis daily at home; second port that has been placed for dialysis. Tremor of both hands Alzheimer disease Hypertension On home oxygen therapy 2L N/C at hs Low back pain Hemorrhoids "not currently flared" Benign neoplasm of skin of nose removed once COPD (chronic obstructive pulmonary disease) HTN (hypertension) Anemia Intracranial hemorrhage 2012 Secondary hyperparathyroidism (of renal origin) Benign prostate hyperplasia Polycystic kidney disease, adult type (09/03/12) Surgical History History of colonoscopy History of tooth extraction all teeth History of cerebral aneurysm repair 2012 [facility] Presby--clip in place; clip IS MRI COMPATIBLE Family History Mother , age 65 of cancer Cancer Father , age 60 from a tree falling on him No problems noted. Other No family history of adverse response to anesthesia Denies family history of Myocardial infarction Social History Smoking Status: Former smoker Tobacco Type: Cigarettes Age Started Using Tobacco: 16; Age Quit Using Tobacco: 71; packs per day: 1; Second Hand Exposure: No; Do You Dip or Chew Tobacco: No; Hx Alcohol Use: No Hx Substance Use: Yes Last Used Substance: Unknown Last Used Substance Other:: last used 2-3 months ago Preferred Language: Citizen Of [place] Communication Ability: Effective Communication Ability Comment: pt can sign own consent Activities Director Required: No Beliefs That Will Affect Care: None marital status: Single Current Living Situation: Alf Current Living Situation Comment: granddaughter and grandson How many Children do You have: 1 Feels Safe at Home: Yes Assistive Devices: Walker Results & Data Results & Data Vital Signs (Past 12 Hours) Vital Signs Temp Pulse Pulse Resp BP BP Pulse Ox 06/18/23 12:15 68 18 135/71 94 06/18/23 10:54 77 20 98 06/18/23 10:54 77 20 157/76 H 98 06/18/23 10:54 37.1 C 77 20 157/76 H 98 06/18/23 10:48 79 O2 Del Method O2 Flow Rate 06/18/23 12:15 Room Air 06/18/23 10:54 Room Air 06/18/23 10:54 Nasal Cannula 2 06/18/23 10:54 Nasal Cannula 2 06/18/23 10:48
--- OUTSIDE RECORDS SUMMARY | 2023-06-18 15:38 | External Medical Summary | Summary of Care ---
Author Name Unknown Organization [facility] Address [address] [place] [address] Phone [phone] Care Team Providers Care Line O Scribe Operator Name Role Phone Maximo Taylor MD Primary Care Provide r Reason for Visit * Reason Onset Date Comments Jail Visit 06/17/2023 Encounter Details Date Type Department Care Team (Latest Contact Info) Description 06/17/2023 8:00 AM EST Jail Visit [facility] [place] [address] [place] [address] Brianna Orozco PA-C [address] [place] [address] Cellulitis of left arm*; Alcoholic cirrhosis of liver with ascites (HCC); ESRD on dialysis (HCC) Allergies Active Allergy Reactions Criticality Noted Date Comments Lisinopril 04/09/2023 documented as of this encounter (statuses as of 06/17/2023) Medications Medication Sig Dispensed Refills Start Date [...] Syringe Inject as directed. 0 01/21/2023 Active Ipratropium-Albutero l 0.5-2.5 (3) [...] cut, crush or chew 0 01/21/2023 Active Cecil Caps 1 MG Oral Capsule Take 1 [...] paracentesis 100 mL 0 04/09/2023 Active PEG 8270-CMp-KxZyx-NaCl- NaSulf 236 GM Oral Solution Reconstituted Take according to coloscopy prep instructions. 4000 mL 0 04/09/2023 Active hydrOXYzine HCl 10 MG Oral Tablet (Atarax) Take 1 Tablet by mouth every 4 hours as needed for Itching. 0 04/27/2023 Active Furosemide 40 MG Oral Tablet (Lasix) Take 1 Tablet by mouth in the morning. 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 05/21/2023 Adenomatous duodenal polyp 05/21/2023 Venous thrombosis of upper extremity 04/01/2023 Transitional [...] cerebral artery aneurysm rupture s/p clip 2013 Polyp of ascending colon 01/21/2023 History of tobacco use 01/21/2023 Personal history of alcoholism 01/21/2023 Full code status 01/21/2023 Coarse tremors 01/21/2023 FX CORONOID PROC ULNA-CL 07/17/2005 DISLOCAT ELBOW NEC-CLOSE 07/17/2005 documented as of this encounter (statuses as of 06/17/2023) Immunizations Name Administration Dates Next Due Seasonal [...] Care Team (Late st Contact Info) Description 07/14/2023 9:20 AM EST Office Visit Dermatology [place] [place] [address] Jessica Williamson PA-C [address] [place] [address] [place] [address] 08/19/2023 11:40 AM EST Office Visit Hepatology, [facility] [address] [place] [address] Bal Latoya GreenDO [address] [place] [address] Health Maintenance Due Date Last Done Comments Hanna's Esophagus Surveilance 1950 Pneumococcal Vaccine: 65+ Years (1 - PCV) 1956 Depression Screening 1962 O2 ASSESSMENT COMPLETED IN PAST YEAR FOR COPD 1968 Cologuard 1995 Fecal Occult Blood Test 1995 Sigmoidoscopy 1995 LUNG CANCER SCREENING - USE SMARTSET 72276 2000 Zoster Vaccines (1 of 2) 2000 Hepatitis B (1 of 3 - Risk 3-dose series) 2010 AAA Screening 2015 *COPD SEVERITY VERIFIED BY PFT 01/23/2023 *CXR OR CT FOR COPD EVER 01/23/2023 COVID-19 Vaccine (3 - 2022-2 4 season) 2023 10/18/2020, 09/19/2020 Influenza Vaccine (FLU shot) (#1) 2023 04/02/2023 DTaP,Tdap,and Td Vaccines (2 - Td or Tdap) 09/28/2026 09/28/2016 Colonoscopy 05/20/2033 05/20/2023 Colorectal Cancer Screening 05/20/2033 Alpha-1 Antitrypsin Completed 04/09/2023 GARDASIL-HPV IMMUNIZATION SERIES Aged Out No longer eligible b ased on patient's age to complete this topic MENINGOCOCCAL (MENACTRA/MENVEO) Aged Out No longer eligible b ased on patient's age to complete this topic documented as of this encounter Medical Devices Not on filedocumented as of this encounter Visit Diagnoses Diagnosis Cellulitis of left arm- Primary Cellulitis and abscess of upper arm and forearm Alcoholic cirrhosis of liver with ascites (HCC) Alcoholic cirrhosis of liver ESRD on dialysis (HCC) End stage renal disease documented in this encounter Care Teams Line O Scribe Operator Relationship Specialty Start Date End Date Maximo Taylor MD 100 [facility] [place] [address] PCP - General Family Medicine 05/04/23 documented as of this encounter
--- OUTSIDE RECORDS SUMMARY | 2023-06-18 15:38 | External Medical Summary | Summary of Care ---
Author Name Unknown Organization [facility] Address [address] [place] [address] Phone [phone] Care Team Providers Care Paper Plate Machine Tender Name Role Phone Maximo Taylor MD Primary Care Provide r Reason for Visit * Reason Onset Date Comments Assisted Visit 06/11/2023 Encounter Details Date Type Department Care Team (Latest Contact Info) Description 06/11/2023 7:00 AM EST Assisted Visit [facility] [address] [place] [address] Brianna Orozco PA-C [address] [place] [address] Ascites due to alcoholic cirrhosis (HCC)*; History of abdominal paracentesis; A-V fistula (HCC); Anemia in chronic kidney disease, on chronic dialysis (HCC) Allergies Active Allergy Reactions Criticality Noted Date Comments Lisinopril 04/09/2023 documented as of this encounter (statuses as of 06/11/2023) Medications Medication Sig Dispensed Refills Start Date [...] cut, crush or chew 0 01/21/2023 Active [place] Caps 1 MG Oral Capsule Take 1 [...] paracentesis 100 mL 0 04/09/2023 Active PEG 6673-WUq-NlOgl-NaCl- NaSulf 236 GM Oral Solution Reconstituted Take [...] as of this encounter (statuses as of 06/11/2023) Active Problems Problem Noted Date Diagnosed Date [...] as of this encounter (statuses as of 06/11/2023) Immunizations Name Administration Dates Next Due Seasonal [...] 07/14/2023 9:20 AM EST Office Visit Dermatology [address] [place] [address] Jessica Williamson PA-C [address] [place] [address] [place] [address] 08/19/2023 11:40 AM EST Office Visit Hepatology, [facility] [address] [place] [address] Latoya Selby DO [address] [place] [address] Health Maintenance Due Date Last Done Comments Hanna's Esophagus Surveilance 1950 Pneumococcal Vaccine: 65+ Years (1 - PCV) 1956 Depression Screening 1962 O2 ASSESSMENT COMPLETED IN PAST YEAR FOR COPD 1968 Cologuard 1995 Fecal Occult Blood Test 1995 Sigmoidoscopy 1995 LUNG CANCER SCREENING - USE SMARTSET 90461 2000 Zoster Vaccines (1 of 2) 2000 [...] cirrhosis (HCC)- Primary History of abdominal paracentesis A-V fistula (HCC) Arteriovenous fistula, acquired Anemia in chronic kidney disease, on chronic dialysis (HCC) documented in this encounter Care Teams Paper Plate Machine Tender Relationship Specialty Start Date End Date Maximo Taylor MD 100 [facility] [place] [address] PCP - General Family Medicine 05/04/23 documented as of this encounter
--- OUTSIDE RECORDS SUMMARY | 2023-06-18 15:38 | External Medical Summary ---
Author Name Unknown Address Unknown Organization [id number] [address] [place] [id number] Laboratory Report Ordering Provider Test Date Status SUSHANT JENKINS 06/16/2023 06:33:00 Final Observation Date Value Abnormality Reference (Units ) Status WBC, Total 06/16/2023 06:33:00 6.54 4.00-10.8 0 (K/uL) Final RBC 06/16/2023 06:33:00 3.40 4.50-5.25 (M/uL) Final Hemoglobin 06/16/2023 06:33:00 10.2 Below low normal 14 .0-16.8 (g/dL) Final HCT 06/16/2023 06:33:00 31.7 Below low normal 40. 0-48.4 (%) Final MCV 06/16/2023 06:33:00 93.2 82.0-99.5 (fL) Final MCH 06/16/2023 06:33:00 30.0 27.0-34.0 (pg) Final MCHC 06/16/2023 06:33:00 32.2 32.0-36.0 (g/dL) Final RDW 06/16/2023 06:33:00 15.7 11.5-15.5 (%) Final Platelets 06/16/2023 06:33:00 320 140-400 (K /uL) Final MPV 06/16/2023 06:33:00 9.5 6.6-11.1 ( fL) Final Performing Location [facility] [address] [place] [id number]
--- OUTSIDE RECORDS SUMMARY | 2023-06-18 15:38 | External Medical Summary | Summary of Care ---
Author Name Unknown Organization [facility] Address [address] [place] [address] Phone [phone] Care Team Providers Care Software Development Manager Name Role Phone Maximo Taylor MD Primary Care Provide r Encounter Details Date Type Department Care Team (Late st Contact Info) Description 06/16/2023 Orders Only Lab [facility] [address] [place], [place] [id number] Maximo Taylor MD [address] [place] [address] [place] [address] Cellulitis* Allergies Active Allergy Reactions Criticality Noted Date Comments Lisinopril 04/09/2023 documented as of this encounter (statuses as of 06/16/2023) Medications Medication Sig Dispensed Refills Start Date [...] cut, crush or chew 0 01/21/2023 Active Mobile Caps 1 MG Oral Capsule Take 1 [...] paracentesis 100 mL 0 04/09/2023 Active PEG 7917-NSp-DbPca-NaCl- NaSulf 236 GM Oral Solution Reconstituted Take [...] as of this encounter (statuses as of 06/16/2023) Active Problems Problem Noted Date Diagnosed Date [...] as of this encounter (statuses as of 06/16/2023) Immunizations Name Administration Dates Next Due Seasonal [...] Care Team (Late st Contact Info) Description 06/16/2023 8:10 AM EST Laboratory [facility] [place] [address] [place] [address] 07/14/2023 9:20 AM EST Office Visit Dermatology [address] [place] [address] Jessica Williamson PA-C [address] [place] [address] [place] [address] 08/19/2023 11:40 AM EST Office Visit Hepatology, [facility] [address] [place] [address] Latoya Selby NormaDO [address] [place] [address] Scheduled Orders Name Type Priority Associated Diagnoses Orde r Schedule CBC WITH WBC DIFFERENTIAL Lab Routine Cellulitis Expected: 06/16/2023, Expires: 06/16/2024 Health Maintenance Due Date Last Done Comments Hanna's Esophagus Surveilance 1950 Pneumococcal Vaccine: 65+ Years (1 - PCV) 1956 Depression Screening 1962 O2 ASSESSMENT COMPLETED IN PAST YEAR FOR COPD 1968 Cologuard 1995 Fecal Occult Blood Test 1995 Sigmoidoscopy 1995 LUNG CANCER SCREENING - USE SMARTSET 44984 2000 Zoster Vaccines (1 of 2) 2000 [...] of this encounter Visit Diagnoses Diagnosis Cellulitis Cellulitis and abscess of unspecified site Cellulitis- Primary Cellulitis and abscess of unspecified site documented in this encounter Care Teams Software Development Manager Relationship Specialty Start Date End Date Maximo Taylor MD 100 [facility] [place] [address] PCP - General Family Medicine 05/04/23 documented as of this encounter
--- OUTSIDE RECORDS SUMMARY | 2023-06-18 15:38 | External Medical Summary ---
Author Name Unknown Address Unknown [facility] [address] [place] [id number] Laboratory Report Ordering Provider Test Date Status SUSHANT JENKINS 06/16/2023 06:33:00 Final Observation Date Value Abnormality Reference (Units ) Status SYNC LEUKOCYTES IN BLOOD BY AUTOMATED COUNT 06/16/2023 06:33:00 6.54 4.00-10.80 (K/uL) Final Segs 06/16/2023 06:33:00 74.4 40.0-75.0 (%) Final Lymphs % 06/16/2023 06:33:00 8.6 Below low normal 18.0-42.0 (%) Final Monos 06/16/2023 06:33:00 10.4 1.0-11.0 (%) Final Eosinophils 06/16/2023 06:33:00 5.5 0.0-6.0 (%) Final Basos 06/16/2023 06:33:00 1.1 0.0-2.0 (%) Final Absolute Segs 06/16/2023 06:33:00 4.87 1.80-7.70 (K/uL) Final Lymphs, absolute 06/16/2023 06:33:00 0.56 Below low normal 1.00-4.80 (K/ul) Final Monos, Abs 06/16/2023 06:33:00 0.68 0.00-1.10 (K/uL) Final Eos, Abs 06/16/2023 06:33:00 0.36 0.00-0.70 (K/uL) Final Basos, Abs 06/16/2023 06:33:00 0.07 0.00-0.20 (K/uL) Final [facility] [place] [id number]
--- OUTSIDE RECORDS SUMMARY | 2023-06-18 15:38 | External Medical Summary | Summary of Care ---
Author Name Unknown Organization [facility] Address [address] [place] [address] Phone [phone] Care Team Providers Care Branding Machine Operator Name Role Phone Maximo Taylor MD Primary Care Provide r Reason for Visit * Reason Onset Date Comments Residential Visit 06/15/2023 Encounter Details Date Type Department Care Team (Latest Contact Info) Description 06/15/2023 12:00 PM EST Residential Visit [facility] [address] [place] [address] Brianna Orozco PA-C [address] [place] [address] Cellulitis of left arm*; Left arm swelling; Alcoholic cirrhosis of liver with ascites (HCC); Anemia in chronic kidney disease, on chronic dialysis (HCC) Allergies Active Allergy Reactions Criticality Noted Date Comments Lisinopril 04/09/2023 documented as of this encounter (statuses as of 06/15/2023) Medications Medication Sig Dispensed Refills Start Date [...] cut, crush or chew 0 01/21/2023 Active [place] Caps 1 MG Oral Capsule Take 1 [...] paracentesis 100 mL 0 04/09/2023 Active PEG 7682-QNb-RxBkk-NaCl- NaSulf 236 GM Oral Solution Reconstituted Take [...] as of this encounter (statuses as of 06/15/2023) Active Problems Problem Noted Date Diagnosed Date [...] as of this encounter (statuses as of 06/15/2023) Immunizations Name Administration Dates Next Due Seasonal [...] 07/14/2023 9:20 AM EST Office Visit Dermatology [facility] [address] [place] [address] [place] [address] Jessica Williamson PA-C [address] [place] [address] [place] [address] 08/19/2023 11:40 AM EST Office Visit Hepatology, [facility] [address] [place] [address] Latoya Selby NormaDO [address] [place] [address] Health Maintenance Due Date Last Done Comments Hanna's Esophagus Surveilance 1950 Pneumococcal Vaccine: 65+ Years (1 - PCV) 1956 Depression Screening 1962 O2 ASSESSMENT COMPLETED IN PAST YEAR FOR COPD 1968 Cologuard 1995 Fecal Occult Blood Test 1995 Sigmoidoscopy 1995 LUNG CANCER SCREENING - USE SMARTSET 93635 2000 Zoster Vaccines (1 of 2) 2000 [...] and abscess of upper arm and forearm Left arm swelling Swelling of limb Alcoholic cirrhosis of liver with ascites (HCC) Alcoholic cirrhosis of liver Anemia in chronic kidney disease, on chronic dialysis (HCC) documented in this encounter Care Teams Branding Machine Operator Relationship Specialty Start Date End Date Maximo Taylor MD [address] [place] [address] [place] [address] PCP - General Family Medicine 05/04/23 documented as of this encounter
--- OUTSIDE RECORDS SUMMARY | 2023-06-18 15:39 | External Medical Summary | Summary of Care ---
Author Name Unknown Organization [facility] Address [address] [place] [place] [place] [address] Phone [phone] Care Team Providers Care Advertising Display Rotator Name Role Phone Maximo Taylor MD Primary Care Provide r Reason for Visit * Reason Onset Date Comments Home Health 06/01/2023 [facility] Encounter Details Date Type Department Care Team (Late st Contact Info) Description 06/01/2023 Telephone Family Medicine [address] [place] [address] Maximo Taylor MD [address] [place] [address] [place] [address] Home Health ([facility]... Allergies Active Allergy Reactions Criticality Noted Date Comments Lisinopril 04/09/2023 documented as of this encounter (statuses as of 06/03/2023) Medications Medication Sig Dispensed Refills Start Date [...] cut, crush or chew 0 01/21/2023 Active [place] Caps 1 MG Oral Capsule Take 1 [...] paracentesis 100 mL 0 04/09/2023 Active PEG 3339-GJl-TmJpa-NaCl- NaSulf 236 GM Oral Solution Reconstituted Take [...] as of this encounter (statuses as of 06/03/2023) Active Problems Problem Noted Date Diagnosed Date [...] as of this encounter (statuses as of 06/03/2023) Immunizations Name Administration Dates Next Due Seasonal [...] encounter Miscellaneous Notes * Telephone Encounter - Wanda Bradley, MED ASSIST - 06/03/2023 1:55 PM EST Called [facility], spoke with Jeet in PT department, advised him of the recommendations as listed in Mirian last office visit, note. They are agreeable. Copy of note was faxed to them per their request. * Telephone Encounter - Wanda Bradley MED ASSIST - 06/02/2023 9:05 AM EST [facility]erald from [facility] and left message again for her to return our call. * Telephone Encounter - Wanda Bradley MED ASSIST - 06/01/2023 2:58 PM EST Called and left message to return call. Per mirian JAMES note, patient is to be non weight bearing, may wear splint when active and gradually wean out of splint over the next 2 weeks. * Telephone Encounter - Wanda Saleem LPN - 06/01/2023 2:36 PM EST Jerald from [facility] occupational therapy dept calling. She received the referral for OT for pt, she is inquiring if there are any restriction or precaution? Referral came from Ortho. Please advise. fax [phone] * Telephone Encounter - Manda Dowell OSA - 06/01/2023 2:31 PM EST Reason for patient's call: Jerald from [facility] called in regards to pt care. Caller was transferred to [place] at the nurse line. Thank you documented in this encounter Plan of Treatment Upcoming Encounters Date Type Department Care Team (Late st Contact Info) Description 06/08/2023 1:30 PM EST Telemedicine Orthopaedics [facility] [place] [address] Sharer, Ciara Crandall PA-C [address] [facility] [place] [address] 07/14/2023 9:20 AM EST Office Visit Dermatology [address] [place] [address] Jessica Williamson PA-C [address] [place] [address] [place] [address] 08/19/2023 11:40 AM EST Office Visit Hepatology, [facility] [address] [place] [address] Latoya Selby DO [address] [place] [address] Health Maintenance Due Date Last Done Comments Hanna's Esophagus Surveilance 1950 Pneumococcal Vaccine: 65+ Years (1 - PCV) 1956 Depression Screening 1962 O2 ASSESSMENT COMPLETED IN PAST YEAR FOR COPD 1968 Cologuard 1995 Fecal Occult Blood Test 1995 Sigmoidoscopy 1995 LUNG CANCER SCREENING - USE SMARTSET 15262 2000 Zoster Vaccines (1 of 2) 2000 [...] filedocumented as of this encounter Care Teams Advertising Display Rotator Relationship Specialty Start Date End Date Maximo Taylor MD [address] [facility] [place] [address] PCP - General Family Medicine 05/04/23 documented as of this encounter
--- OUTSIDE RECORDS SUMMARY | 2023-06-18 15:39 | External Medical Summary | Summary of Care ---
Author Name Unknown Organization [facility] Address [address] [place] [address] Phone [phone] Care Team Providers Care Financial Analyst Name Role Phone Maximo Taylor MD Primary Care Provide r Reason for Visit * Reason Onset Date Comments [facility] Visit 06/02/2023 Encounter Details Date Type Department Care Team (Latest Contact Info) Description 06/02/2023 8:00 AM EST [facility] Visit 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)*; ESRD on dialysis (HCC); History of abdominal paracentesis Allergies Active Allergy Reactions Criticality Noted Date Comments Lisinopril 04/09/2023 documented as of this encounter (statuses as of 06/02/2023) Medications Medication Sig Dispensed Refills Start Date [...] cut, crush or chew 0 01/21/2023 Active [place] Caps 1 MG Oral Capsule Take 1 [...] paracentesis 100 mL 0 04/09/2023 Active PEG 1656-JDc-DxHdc-NaCl- NaSulf 236 GM Oral Solution Reconstituted Take [...] as of this encounter (statuses as of 06/02/2023) Active Problems Problem Noted Date Diagnosed Date [...] as of this encounter (statuses as of 06/02/2023) Immunizations Name Administration Dates Next Due Seasonal [...] Description 06/08/2023 1:30 PM EST Telemedicine Orthopaedics [facility] [address] [place] [address] SharerCiara PA-C [address] [place] [address] 07/14/2023 9:20 AM EST Office Visit Dermatology [address] [place] [address] Jessica Williamson PA-C [address] [place] [address] [place] [address] 08/19/2023 11:40 AM EST Office Visit Hepatology, [facility] [address] [place] [address] Latoya Selby DO [address] [place] [address] Health Maintenance Due Date Last Done Comments Hanna's Esophagus Surveilance 1950 Pneumococcal Vaccine: 65+ Years (1 - PCV) 1956 Depression Screening 1962 O2 ASSESSMENT COMPLETED IN PAST YEAR FOR COPD 1968 Cologuard 1995 Fecal Occult Blood Test 1995 Sigmoidoscopy 1995 LUNG CANCER SCREENING - USE SMARTSET 73386 2000 Zoster Vaccines (1 of 2) 2000 [...] on dialysis (HCC) End stage renal disease History of abdominal paracentesis documented in this encounter Care Teams Financial Analyst Relationship Specialty Start Date End Date Maximo Taylor MD [address] [place] [address] [place] [address] PCP - General Family Medicine 05/04/23 documented as of this encounter
--- OUTSIDE RECORDS SUMMARY | 2023-06-18 15:39 | External Medical Summary ---
Author Name Unknown Address Unknown Organization K0G:[facility] [address] [place] [id number] Laboratory Report Ordering Provider Test Date Status SUSHANT JENKINS 06/07/2023 06:19:00 Final Observation Date Value Abnormality Reference (Units ) Status Nucleated erythrocytes/100 leukocytes [Ratio] in Blood by Automated count 06/07/2023 06:19:00 Final Performing Location [facility] [address] 0 - [address] [place] [id number]
--- OUTSIDE RECORDS SUMMARY | 2023-06-18 15:39 | External Medical Summary | Summary of Care ---
Author Name Unknown Organization [facility] Address [address] [facility] [place] [address] Phone [phone] Care Team Providers Care Progressive Assembler And Fitter Name Role Phone Maximo Taylor MD Primary Care Provide r Encounter Details Date Type Department Care Team (Late st Contact Info) Description 06/08/2023 Result Scan Unspecified Department Latoya Selby DO [address] [place] [address] <No scans attached> Allergies Active Allergy Reactions Criticality Noted Date Comments Lisinopril 04/09/2023 documented as of this encounter (statuses as of 06/09/2023) Medications Medication Sig Dispensed Refills Start Date [...] paracentesis 100 mL 0 04/09/2023 Active PEG 1720-ADo-QaCdo-NaCl- NaSulf 236 GM Oral Solution Reconstituted Take [...] as of this encounter (statuses as of 06/09/2023) Active Problems Problem Noted Date Diagnosed Date [...] as of this encounter (statuses as of 06/09/2023) Immunizations Name Administration Dates Next Due Seasonal [...] 07/14/2023 9:20 AM EST Office Visit Dermatology [address] [place] [address] Jessica Williamson PA-C [address] [place] [address] [place] [address] 08/19/2023 11:40 AM EST Office Visit Hepatology, [address] [place] [address] Latoya Selby DO [address] [place] [address] Health Maintenance Due Date Last Done Comments Hanna's Esophagus Surveilance 1950 Pneumococcal Vaccine: 65+ Years (1 - PCV) 1956 Depression Screening 1962 O2 ASSESSMENT COMPLETED IN PAST YEAR FOR COPD 1968 Cologuard 1995 Fecal Occult Blood Test 1995 Sigmoidoscopy 1995 LUNG CANCER SCREENING - USE SMARTSET 21928 2000 Zoster Vaccines (1 of 2) 2000 [...] Procedure Name Priority Date/Time Associated Diagnosis Comments RADIOLOGY SCANNED RESULT 06/08/2023 documented in this encounter Results * RADIOLOGY SCANNED RESULT (06/08/2023) 06/08/2023 Latoya Selby DO DI[facility]NOST[facility] RAD [facility] documented in this encounter Care Teams Progressive Assembler And Fitter Relationship Specialty Start Date End Date Maximo Taylor MD 100 [facility] [place] [address] PCP - General Family Medicine 05/04/23 documented as of this encounter
--- OUTSIDE RECORDS SUMMARY | 2023-06-18 15:39 | External Medical Summary | Summary of Care ---
Author Name Unknown Organization [facility] Address [address] [facility] [place] [address] Phone [phone] Care Team Providers Care Panel Sewer Name Role Phone Maximo Taylor MD Primary Care Provide r Encounter Details Date Type Department Care Team (Late st Contact Info) Description 06/09/2023 Orders Only Gastroenterology, [facility] [address] [place] [address] Latoya Selby DO [address] [place] [address] Allergies Active Allergy Reactions Criticality Noted Date [...] cut, crush or chew 0 01/21/2023 Active [place] Caps 1 MG Oral Capsule Take 1 [...] paracentesis 100 mL 0 04/09/2023 Active PEG 5454-DCb-PxTit-NaCl- NaSulf 236 GM Oral Solution Reconstituted Take [...] 07/14/2023 9:20 AM EST Office Visit [facility]ology [facility] [place] [address] Jessica Williamson PA-C [address] [place] [address] [place] [address] 08/19/2023 11:40 AM EST Office Visit Hepatology, [facility] [address] [place] [address] Latoya Selby, [address] [place] [address] Health Maintenance Due Date Last Done Comments Hanna's Esophagus Surveilance 1950 Pneumococcal Vaccine: 65+ Years (1 - PCV) 1956 Depression Screening 1962 O2 ASSESSMENT COMPLETED IN PAST YEAR FOR COPD 1968 Cologuard 1995 Fecal Occult Blood Test 1995 Sigmoidoscopy 1995 LUNG CANCER SCREENING - USE SMARTSET 72345 2000 Zoster Vaccines (1 of 2) 2000 [...] Procedure Name Priority Date/Time Associated Diagnosis Comments CHEMISTRY-OUTSIDE Routine 06/08/2023 documented in this encounter Results * (ABNORMAL) CHEMISTRY-OUTSIDE (06/08/2023) Not all results display below - see scan for full detail OUTSIDE LAB (SEE SCANNED REPORT) Comment:SEE SCAN: PT/INR, PT T, PTTR, CBCD CREATININE-OUTSID E LAB OUTSIDE LAB (SEE SCANNED REPORT) EGFR-OUTSIDE LAB OUT SIDE LAB (SEE SCANNED REPORT) POTASSIUM-OUTSIDE LAB OUTSIDE LAB (SEE SCANNED REPORT) GLUCOSE-OUTSIDE LAB OUTSIDE LAB (SEE SCANNED REPORT) HOURS FASTING OUTSID E LAB (SEE SCANNED REPORT) TRIGLYCERIDES-OUT SIDE LAB OUTSIDE LAB (SEE SCANNED REPORT) CHOLESTEROL-OUTSI DE LAB OUTSIDE LAB (SEE SCANNED REPORT) HDL-OUTSIDE LAB OUTS [facility] LAB (SEE SCANNED REPORT) CHOL/HDL RATIO-OUTSIDE LAB OUTSIDE LA B (SEE SCANNED REPORT) LDL (CALCULATED)-OUTS [place] LAB OUTSIDE LAB (SEE SCANNED REPORT) LDL (DIRECT MEASURE)-OUTSIDE LAB OUTSIDE LAB (SEE SCANNED REPORT) HEMOGLOBIN, G7E-NNTEUSA LAB OUTSIDE LAB (SEE SCANNED REPORT) PHOSPHORUS-OUTSID E LAB OUTSIDE LAB (SEE SCANNED REPORT) PTH-OUTSIDE LAB OUTS [place] LAB (SEE SCANNED REPORT) MICROALBUMIN RATIO-OUTSIDE LAB OUTSIDE LA B (SEE SCANNED REPORT) PROTEIN, UA-OUTSIDE LAB OUTSIDE LAB (SEE SCANNED REPORT) HEMOGLOBIN-OUTSID E LAB 9.6(A) 14.0 - 18.0 G/DL OUTSIDE LAB (SEE SCANNED REPORT) 06/08/2023 Latoya Selby DO LABORATORY OUTSIDE LAB (SEE SCANNED REPORT) documented in this encounter Care Teams Panel Sewer Relationship Specialty Start Date End Date Maximo Taylor MD [address] [place], [place] [address] [address] PCP - General Family Medicine 05/04/23 documented as of this encounter
--- OUTSIDE RECORDS SUMMARY | 2023-06-18 15:39 | External Medical Summary ---
Author Name Unknown Address Unknown Organization [facility] [address] - [address] [place] [address] Laboratory Report Ordering Provider Test Date Status SUSHANT JENKINS 06/07/2023 06:19:00 Final Anticoagulation may affect t esting. Refer to [facility] Test Catalog for a list of effects. Observation Date Value Abnormality Reference (Units ) Status aPTT panel - Platelet poor plasma 06/07/2023 06:19:00 30 21-38 (seconds) Final Performing Location [facility] 57-[address] 0 - [address] [place] [address]
--- OUTSIDE RECORDS SUMMARY | 2023-06-18 15:39 | External Medical Summary | Summary of Care ---
Author Name Unknown Organization [facility] Address [address] [place] [address] Phone [phone] Care Team Providers Care Community Association Manager Name Role Phone Maximo Taylor MD Primary Care Provide r Encounter Details Date Type Department Care Team (Late st Contact Info) Description 06/07/2023 Orders Only Lab Mobile Phlebotomy [facility] [address] [place], [place] [id number] Maximo Taylor MD [address] [place] [address] [place] [address] Alcoholic cirrhosis of liver with ascites (HCC)* Allergies Active Allergy Reactions Criticality Noted Date Comments Lisinopril 04/09/2023 documented as of this encounter (statuses as of 06/07/2023) Medications Medication Sig Dispensed Refills Start Date [...] paracentesis 100 mL 0 04/09/2023 Active PEG 6536-FDm-WbBpw-NaCl- NaSulf 236 GM Oral Solution Reconstituted Take [...] as of this encounter (statuses as of 06/07/2023) Active Problems Problem Noted Date Diagnosed Date [...] as of this encounter (statuses as of 06/07/2023) Immunizations Name Administration Dates Next Due Seasonal [...] Care Team (Late st Contact Info) Description 06/07/2023 8:00 AM EST Laboratory Lab Mobile Phlebotomy [facility] [address] [place] [address] Arrived 06/08/2023 1:30 PM EST Telemedicine Orthopaedics [facility] [address] [facility] [place] [phone] Ciara Major PA-C [address] [place] [address] 07/14/2023 9:20 AM EST Office Visit Dermatology [address] [place] [address] Jessica Williamson PA-C [address] [place] [address] [place] [address] 08/19/2023 11:40 AM EST Office Visit Hepatology, [facility] [address] [place] [address] Latoya Selby DO [address] [place] [address] Scheduled Orders Name Type Priority Associated Diagnoses Orde r Schedule CBC WITH WBC DIFFERENTIAL Lab Routine Alcoholic cirrhosis of liver with ascites (HCC) Expected: 06/07/2023, Expires: 06/07/2024 APTT Lab Routine Alcoholic cirrhosis of liver with ascites (HCC) Expected: 06/07/2023, Expires: 06/07/2024 Health Maintenance Due Date Last Done Comments Hanna's Esophagus Surveilance 1950 Pneumococcal Vaccine: 65+ Years (1 - PCV) 1956 Depression Screening 1962 O2 ASSESSMENT COMPLETED IN PAST YEAR FOR COPD 1968 Cologuard 1995 Fecal Occult Blood Test 1995 Sigmoidoscopy 1995 LUNG CANCER SCREENING - USE SMARTSET 84910 2000 Zoster Vaccines (1 of 2) 2000 [...] liver documented in this encounter Care Teams Community Association Manager Relationship Specialty Start Date End Date Maximo Taylor MD [address] [place] [address] PCP - General Family Medicine 05/04/23 documented as of this encounter
--- OUTSIDE RECORDS SUMMARY | 2023-06-18 15:39 | External Medical Summary ---
Author Name Unknown Address Unknown Organization K0G:[facility]AT[facility] [address] - [address] [place] [address] Laboratory Report Ordering Provider Test Date Status SUSHANT JENKINS 06/07/2023 06:19:00 Final Observation Date Value Abnormality Reference (Units ) Status SYNC LEUKOCYTES IN BLOOD BY AUTOMATED COUNT 06/07/2023 06:19:00 6.54 4.00-10.80 (K/uL) Final Segs 06/07/2023 06:19:00 59.6 40.0-75.0 (%) Final Lymphs % 06/07/2023 06:19:00 20.2 18.0-42.0 (%) Final Monos 06/07/2023 06:19:00 15.3 Above high normal 1.0-11.0 (%) Final Eosinophils 06/07/2023 06:19:00 4.0 0.0-6.0 (%) Final Basos 06/07/2023 06:19:00 0.9 0.0-2.0 (%) Final Absolute Segs 06/07/2023 06:19:00 3.90 1.80-7.70 (K/uL) Final Lymphs, absolute 06/07/2023 06:19:00 1.32 1.00-4.80 (K/ul) Final Monos, Abs 06/07/2023 06:19:00 1.00 0.00-1.10 (K/uL) Final Eos, Abs 06/07/2023 06:19:00 0.26 0.00-0.70 (K/uL) Final Basos, Abs 06/07/2023 06:19:00 0.06 0.00-0.20 (K/uL) Final Performing Location [facility] [address] - [address] [place] [address]
--- OUTSIDE RECORDS SUMMARY | 2023-06-18 15:39 | External Medical Summary | Summary of Care ---
Author Name Unknown Organization [facility] Address [address] [facility] [place] [address] Phone [phone] Care Team Providers Care Environmental Service Aide Name Role Phone Maximo Taylor MD Primary Care Provide r Reason for Visit * Reason Onset Date Comments Home Health 06/01/2023 [facility] Encounter Details Date Type Department Care Team (Late st Contact Info) Description 06/01/2023 Telephone Family Medicine [address] [place] [address] Maximo Taylor MD [address] [place] [address] [place] [address] [facility]... Allergies Active Allergy Reactions Criticality Noted Date Comments Lisinopril 04/09/2023 documented as of this encounter (statuses as of 06/01/2023) Medications Medication Sig Dispensed Refills Start Date [...] cut, crush or chew 0 01/21/2023 Active [place] Caps 1 MG Oral Capsule Take 1 [...] paracentesis 100 mL 0 04/09/2023 Active PEG 4510-EFg-TzXry-NaCl- NaSulf 236 GM Oral Solution Reconstituted Take [...] as of this encounter (statuses as of 06/01/2023) Active Problems Problem Noted Date Diagnosed Date [...] as of this encounter (statuses as of 06/01/2023) Immunizations Name Administration Dates Next Due Seasonal [...] Miscellaneous Notes * Telephone Encounter - Wanda Bradley MED ASSIST - 06/01/2023 2:58 PM EST Called and left message to return call. Per mirian cadena OV note, patient is to be non weight bearing, may wear splint when active and gradually wean out of splint over the next 2 weeks. * Telephone Encounter - Wanda Saleem LPN - 06/01/2023 2:36 PM EST Leonel from [facility] occupational therapy dept calling. She received the referral for OT for pt, she is inquiring if there are any restriction or precaution? Referral came from Ortho. Please advise. fax [phone] * Telephone Encounter - Manda Dowell OSA - 06/01/2023 2:31 PM EST Reason for patient's call: Leonel from [facility] called in regards to pt care. Caller was transferred to [place] at the nurse line. Thank you documented in this encounter Plan of Treatment Upcoming Encounters Date Type Department Care Team (Late st Contact Info) Description 06/08/2023 1:30 PM EST Telemedicine Orthopaedics [facility] [address] [place] [address] SharerCiara PA-C [address] [place] [address] 07/14/2023 9:20 AM EST Office Visit Dermatology [address] [place] [address] Jessica Williamson PA-C [address] [place] [address] [place] [address] 08/19/2023 11:40 AM EST Office Visit Hepatology, [facility] [address] [place] [address] Latoya Selby DO [address] [place] [address] Health Maintenance Due Date Last Done Comments Hanna's Esophagus Surveilance 1950 Pneumococcal Vaccine: 65+ Years (1 - PCV) 1956 Depression Screening 1962 O2 ASSESSMENT COMPLETED IN PAST YEAR FOR COPD 1968 Cologuard 1995 Fecal Occult Blood Test 1995 Sigmoidoscopy 1995 LUNG CANCER SCREENING - USE SMARTSET 80425 2000 Zoster Vaccines (1 of 2) 2000 [...] filedocumented as of this encounter Care Teams Environmental Service Aide Relationship Specialty Start Date End Date Maximo Taylor MD [address] [place] [address], [place] [address] PCP - General Family Medicine 05/04/23 documented as of this encounter
--- OUTSIDE RECORDS SUMMARY | 2023-06-18 15:39 | External Medical Summary | Summary of Care ---
Author Name Unknown Organization [facility] Address [address] [place] [place] [address] Phone [phone] Care Team Providers Care Distribution Sales Representative Name Role Phone Maximo Taylor MD Primary Care Provide r Reason for Visit * Reason Onset Date Comments Home Health 06/01/2023 [facility] Encounter Details Date Type Department Care Team (Late st Contact Info) Description 06/01/2023 Telephone Family Medicine [address] [place] [address] Maximo Taylor MD [address] [place] [address] [place] [address] [facility] ([facility] [place]... Allergies Active Allergy Reactions Criticality Noted [...] cut, crush or chew 0 01/21/2023 Active [place] Caps 1 MG Oral Capsule Take 1 [...] paracentesis 100 mL 0 04/09/2023 Active PEG 6787-QTt-JhUgw-NaCl- NaSulf 236 GM Oral Solution Reconstituted Take [...] 06/02/2023 9:05 AM EST Called jerald from [facility] and left message again for her to [...] Referral came from Ortho. Please advise. fax [phone] * Telephone Encounter - Manda Dowell OSA - 06/01/2023 2:31 PM EST Reason for patient's call: Jerald from [facility] called in regards to pt care. Caller was transferred to Wanda at the nurse line. Thank you documented in this encounter Plan of Treatment Upcoming Encounters Date Type Department Care Team (Late st Contact Info) Description 06/08/2023 1:30 PM EST Telemedicine Orthopaedics [facility] [place] [address] Sharer, Ciara Crandall PA-C [address] [place] [address] 07/14/2023 9:20 AM EST Office Visit Dermatology [address] [place] [address] Jessica Williamson PA-C [address] [place] [address] [place] [address] 08/19/2023 11:40 AM EST Office Visit Hepatology, [facility] [address] [place] [address] Latoya Selby DO [address] [place] [address] Health Maintenance Due Date Last Done Comments Hanna's Esophagus Surveilance 1950 Pneumococcal Vaccine: 65+ Years (1 - PCV) 1956 Depression Screening 1962 O2 ASSESSMENT COMPLETED IN PAST YEAR FOR COPD 1968 Cologuard 1995 Fecal Occult Blood Test 1995 Sigmoidoscopy 1995 LUNG CANCER SCREENING - USE SMARTSET 34523 2000 Zoster Vaccines (1 of 2) 2000 [...] filedocumented as of this encounter Care Teams Distribution Sales Representative Relationship Specialty Start Date End Date Maximo Taylor MD [facility] [place] [address] PCP - General Family Medicine 05/04/23 documented as of this encounter
--- OUTSIDE RECORDS SUMMARY | 2023-06-18 15:39 | External Medical Summary ---
Author Name Unknown Address Unknown Organization K0G:LAB[facility]ORY [facility] [address] [place] [address] Laboratory Report Ordering Provider Test Date Status SUSHANT JENKINS 06/07/2023 06:19:00 Final Observation Date Value Abnormality Reference (Units ) Status WBC, Total 06/07/2023 06:19:00 6.54 4.00-10.8 0 (K/uL) Final RBC 06/07/2023 06:19:00 3.56 4.50-5.25 (M/uL) Final Hemoglobin 06/07/2023 06:19:00 10.7 Below low normal 14 .0-16.8 (g/dL) Final HCT 06/07/2023 06:19:00 33.4 Below low normal 40. 0-48.4 (%) Final MCV 06/07/2023 06:19:00 93.8 82.0-99.5 (fL) Final MCH 06/07/2023 06:19:00 30.1 27.0-34.0 (pg) Final MCHC 06/07/2023 06:19:00 32.0 32.0-36.0 (g/dL) Final RDW 06/07/2023 06:19:00 15.2 11.5-15.5 (%) Final Platelets 06/07/2023 06:19:00 344 140-400 (K /uL) Final MPV 06/07/2023 06:19:00 9.5 6.6-11.1 ( fL) Final Performing Location [facility] [address] - [address] [place] [address]
--- OUTSIDE RECORDS SUMMARY | 2023-06-18 15:39 | External Medical Summary | Summary of Care ---
Author Name Unknown Organization [facility] Address [address] [facility] [place] [address] Phone [phone] Care Team Providers Care Show Card Writer Name Role Phone Maximo Taylor MD Primary Care Provide r Encounter Details Date Type Department Care Team (Late st Contact Info) Description 05/20/2023 Result Scan Unspecified Department Maximo Taylor MD [address] [place] [address] [place] [address] <No scans attached> Allergies Active Allergy Reactions [...] cut, crush or chew 0 01/21/2023 Active Floyd Caps 1 MG Oral Capsule Take 1 [...] paracentesis 100 mL 0 04/09/2023 Active PEG 8924-JIq-ZvGzq-NaCl- NaSulf 236 GM Oral Solution Reconstituted Take [...] Description 06/08/2023 1:30 PM EST Telemedicine Orthopaedics [facility] [address] [place] [address] SharerCiara PA-C [address] [place] [address] 07/14/2023 9:20 AM EST Office Visit Dermatology [address] [place] [address] Jessica Williamson PA-C [address] [place] [address] [place] [address] 08/19/2023 11:40 AM EST Office Visit Hepatology, [facility] [address] [place] [address] Latoya Selby DO [address] [place] [address] Health Maintenance Due Date Last Done Comments Hanna's Esophagus Surveilance 1950 Pneumococcal Vaccine: 65+ Years (1 - PCV) 1956 Depression Screening 1962 O2 ASSESSMENT COMPLETED IN PAST YEAR FOR COPD 1968 Cologuard 1995 Fecal Occult Blood Test 1995 Sigmoidoscopy 1995 LUNG CANCER SCREENING - USE SMARTSET 84809 2000 Zoster Vaccines (1 of 2) 2000 [...] Procedure Name Priority Date/Time Associated Diagnosis Comments PATHOLOGY SCANNED RESULT 05/20/2023 documented in this encounter Results * PATHOLOGY SCANNED RESULT (05/20/2023) 05/20/2023 Maximo Taylor MD PATHOLOGY documented in this encounter Care Teams Show Card Writer Relationship Specialty Start Date End Date Maximo Taylor MD [address] [place], [place] [address] [address] PCP - General Family Medicine 05/04/23 documented as of this encounter
--- OUTSIDE RECORDS SUMMARY | 2023-06-18 15:40 | External Medical Summary ---
Author Name Unknown Address Unknown Organization K01:LABORATORY C - [address] [place] [address] Laboratory Report Ordering Provider Test Date Status SUSHANT JENKINS 05/26/2023 07:07:00 Final Observation Date Value Abnormality Reference (Units ) Status Varicella Zoster IgG interpretation 05/26/2023 07:07:00 Positive Abnormal Negative Final A positive result is consist ent with having had varicella zoster virus or vaccination. Performing Location [facility] - [address] [place] [address]
--- OUTSIDE RECORDS SUMMARY | 2023-06-18 15:40 | External Medical Summary | Summary of Care ---
Author Name Unknown Organization [facility] Address [address] [place] [address] Phone [phone] Care Team Providers Care Hydraulic Press Tender Name Role Phone Maximo Taylor MD Primary Care Provide r Encounter Details Date Type Department Care Team (Late st Contact Info) Description 05/24/2023 Orders Only Lab Mobile Phlebotomy [facility] [address] [place], [place] [id number] Maximo Taylor MD [address] [place] [address] [place] [address] Encounter for therapeutic drug monitoring* Allergies Active Allergy Reactions Criticality Noted Date Comments Lisinopril 04/09/2023 documented as of this encounter (statuses as of 05/24/2023) Medications Medication Sig Dispensed Refills Start Date [...] cut, crush or chew 0 01/21/2023 Active Grayson Caps 1 MG Oral Capsule Take 1 [...] paracentesis 100 mL 0 04/09/2023 Active PEG 4334-MMy-TsLal-NaCl- NaSulf 236 GM Oral Solution Reconstituted Take [...] as of this encounter (statuses as of 05/24/2023) Active Problems Problem Noted Date Diagnosed Date [...] dermatitis 01/21/2023 Secondary hyperparathyroidism of renal origin 08 /08/2022 Polycystic renal disease 01/21/2023 PAF (paroxysmal atrial [...] as of this encounter (statuses as of 05/24/2023) Immunizations Name Administration Dates Next Due Seasonal [...] Care Team (Late st Contact Info) Description 05/24/2023 8:10 AM EST Laboratory Lab Mobile Phlebotomy [facility] [address] [facility] [place] [address] [place] [address] Arrived 05/25/2023 1:00 PM EST Office Visit Orthopaedics [facility] [address] [place] [phone] Ciara Major PA-C [address] [place] [address] 07/14/2023 9:20 AM EST Office Visit Dermatology [address] [place] [address] Jessica Williamson PA-C [address] [place] [address] [place] [address] 08/19/2023 11:40 AM EST Office Visit Hepatology, [facility] [address] [place] [address] Latoya Selby DO [address] [place] [address] Scheduled Orders Name Type Priority Associated Diagnoses Orde r Schedule CBC WITH WBC DIFFERENTIAL Lab Routine Encounter for therapeutic drug monitoring Expected: 05/24/2023, Expires: 05/24/2024 APTT Lab Routine Encounter for therapeutic drug monitoring Expected: 05/24/2023, Expires: 05/24/2024 Health Maintenance Due Date Last Done Comments Hanna's Esophagus Surveilance 1950 Pneumococcal Vaccine: 65+ Years (1 - PCV) 1956 Depression Screening 1962 O2 ASSESSMENT COMPLETED IN PAST YEAR FOR COPD 1968 Cologuard 1995 Fecal Occult Blood Test 1995 Sigmoidoscopy 1995 LUNG CANCER SCREENING - USE SMARTSET 58319 2000 Zoster Vaccines (1 of 2) 2000 [...] as of this encounter Visit Diagnoses Diagnosis Encounter for therapeutic drug monitoring- Primary documented in this encounter Care Teams Hydraulic Press Tender Relationship Specialty Start Date End Date Maximo Taylor MD [address] [place] [address] [place] [address] PCP - General Family Medicine 05/04/23 documented as of this encounter
--- OUTSIDE RECORDS SUMMARY | 2023-06-18 15:40 | External Medical Summary ---
Author Name Unknown Address Unknown Organization K0G:LABORATORY [facility] [address] - [address] [place] [address] Laboratory Report Ordering Provider Test Date Status SUSHANT JENKINS 05/31/2023 06:16:00 Final Anticoagulation may affect t esting. Refer to [facility] Test Catalog for a list of effects. Observation Date Value Abnormality Reference (Units ) Status aPTT panel - Platelet poor plasma 05/31/2023 06:16:00 34 21-38 (seconds) Final Performing Location LABORATORY [facility] 57-[address] 0 - [address] [place] [address]
--- OUTSIDE RECORDS SUMMARY | 2023-06-18 15:40 | External Medical Summary | Summary of Care ---
Author Name Unknown Organization [facility] Address [address] [place] [address] Phone [phone] Care Team Providers Care Manager Report Name Role Phone Maximo Taylor MD Primary Care Provide r Reason for Visit * Reason Onset Date Comments Information 05/26/2023 AAA screening Encounter Details Date Type Department Care Team (Late st Contact Info) Description 05/26/2023 Telephone Family Medicine [address] [phone] Maximo Taylor MD [address] [place] [address] [place] [address] Information (AAA screening ) Allergies Active Allergy Reactions Criticality Noted Date Comments Lisinopril 04/09/2023 documented as of this encounter (statuses as of 05/31/2023) Medications Medication Sig Dispensed Refills Start Date [...] cut, crush or chew 0 01/21/2023 Active Pickens Caps 1 MG Oral Capsule Take 1 [...] paracentesis 100 mL 0 04/09/2023 Active PEG 3328-CEc-LlLbi-NaCl- NaSulf 236 GM Oral Solution Reconstituted Take [...] as of this encounter (statuses as of 05/31/2023) Active Problems Problem Noted Date Diagnosed Date [...] as of this encounter (statuses as of 05/31/2023) Immunizations Name Administration Dates Next Due Seasonal [...] encounter Miscellaneous Notes * Telephone Encounter - Latrice Bishop LPN - 05/31/2023 12:34 PM EST I am calling to discuss some recommended testing. Our records indicate that you are due for a screening ultrasound of your aorta (this test checks for an enlargement of your aorta at the level of your abdomen). Have you had discussions with your provider about this?we've recently started evaluating your electronic health record to provide better screening and care for people at risk for disease of the aorta (the main artery that carries blood from your heart to the rest of your body). Based on your laboratory results and other clinical conditions, you may be at high risk for an abdominal aortic aneurysm (AAA, an enlargement of your lower aorta). This evaluation doesn't mean you have an AAA. It just means you should get screened at your earliest convenience by having an ultrasound. The screening results will tell your doctor if there's anything they need to examine more closely. Through advanced analysis/trending of this patient's history, they have been identified to have a positive AAA flag and are at a higher risk for Abdominal aortic aneurysm. This advanced analysis estimates the patient's risk for AAA. It only indicates that the patient's chances to have this condition are higher compared to most people. It does not indicate that the patient has this condition, but it is highly recommended the patient have a AAA screening for further evaluation. I have contacted the patient regarding scheduling a AAA screening. Outcomes: Outreach not indicated SNF/Hospice/other senior living * Telephone Encounter - Latrice Bishop LPN - 05/26/2023 12:08 PM EST Through advanced analysis/trending of this patient's history, they have been identified to have a positive AAA flag and are at a higher risk for Abdominal aortic aneurysm. Pt will be contacted by a [facility] nurse to discuss AAA screening. documented in this encounter Plan of Treatment Upcoming Encounters Date Type Department Care Team (Late st Contact Info) Description 06/08/2023 1:30 PM EST Telemedicine Orthopaedics [facility] [address] [place] [address] Sharer, Ciara Crandall PA-C [address] [place] [address] 07/14/2023 9:20 AM EST Office Visit Dermatology [address] [place] [address] Jessica Williamson PA-C [address] [place] [address] [place] [address] 08/19/2023 11:40 AM EST Office Visit Hepatology, [facility] [address] [place] [address] Latoya Selby DO [address] [place] [address] Health Maintenance Due Date Last Done Comments Hanna's Esophagus Surveilance 1950 Pneumococcal Vaccine: 65+ Years (1 - PCV) 1956 Depression Screening 1962 O2 ASSESSMENT COMPLETED IN PAST YEAR FOR COPD 1968 Cologuard 1995 Fecal Occult Blood Test 1995 Sigmoidoscopy 1995 LUNG CANCER SCREENING - USE SMARTSET 297[address] 2000 Zoster Vaccines (1 of 2) 2000 [...] filedocumented as of this encounter Care Teams Manager Report Relationship Specialty Start Date End Date Maximo Taylor MD [address] [facility] [place] [id number] PCP - General Family Medicine 05/04/23 documented as of this encounter
--- OUTSIDE RECORDS SUMMARY | 2023-06-18 15:40 | External Medical Summary | Summary of Care ---
Author Name Unknown Organization [facility] Address [address] [place] [address] Phone [phone] Care Team Providers Care Pre Sales Network Engineer Name Role Phone Maximo Taylor MD Primary Care Provide r Reason for Visit * Reason Onset Date Comments Intermediate Visit 05/24/2023 Encounter Details Date Type Department Care Team (Latest Contact Info) Description 05/21/2023 11:30 AM EST Intermediate Visit [facility] [address] [place] [address] Brianna Orozco PA-C [address] [place] [address] Ascites due to alcoholic cirrhosis (HCC)*; Status post abdominal paracentesis; ESRD on dialysis (HCC); 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 behavioral disturbance, psychotic disturbance, mood disturbance, or anxiety (HCC) Allergies Active Allergy Reactions Criticality Noted [...] cut, crush or chew 0 01/21/2023 Active Quincy Caps 1 MG Oral Capsule Take 1 [...] paracentesis 100 mL 0 04/09/2023 Active PEG 5500-VZn-JvXwl-NaCl- NaSulf 236 GM Oral Solution Reconstituted Take [...] Progress Notes * Brianna Orozco PA-C - 05/24/2023 2:19 PM EST Name: Sisi Redmond Date of :1950 TRANSITION EVENT: Type: Non-applicable Date: May 21 Code Status: Full Code This note pertains to care provided at [facility]. Please see facility medical record for original note. This note is not to be edited or addended in [facility]. Editing or addending needs to occur in the facilities medical record. Subjective: Sisi Redmond is a 72 year old male. Patient being seen for recheck visit Chief Complaint Patient presents with Intermediate Visit HPI: pt with alcoholic cirrhosis of liver, ESRD on dialysis had another abdominal paracentesis on 05/20/23 with removal of 7.5 liters of fluid removed. Pt's weight is now 157 pounds from high of 178 pounds. Pt states he feels better. Breathing better. Afebrile. Fatigued from dialysis which is pt's b aseline. Vital signs stable. No diarrhea. Eating and sleeping ok. Labs done at dialysis center. Patient Active Problem List Diagnosis Code FX CORONOID PROC ULNA-CL S52.043A DISLOCAT ELBOW NEC-CLOSE S53.196A ESRD on dialysis ([facility]) N18.6, Z99.2 HTN, goal below 130/80 I10 Iron deficiency anemia D50.9 Slow transit constipation K59.01 PTSD (post-traumatic stress disorder) F43.10 COPD, moderate ([facility]) J44.9 Vitamin B1 deficiency E51.9 Vitamin D deficiency E55.9 Dry skin dermatitis L85.3 Secondary hyperparathyroidism of renal origin ([facility]) N25.81 Polycystic renal disease Q61.3 PAF (paroxysmal atrial fibrillation) ([facility]) I48.0 Primary insomnia F51.01 Pruritic condition L29.9 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 behavioral disturbance, psychotic disturbance, mood disturbance, or anxiety ([facility]) G30.1, F02.A0 BPH without obstruction/lower urinary tract symptoms N40.0 Benign neoplasm of skin of nose D23.39 Diverticulosis of large intestine without hemorrhage K57.30 Chronic gout without tophus M1A.9XX0 History of intracranial hemorrhage Z86.79 History of nontraumatic rupture of cerebral aneurysm Z86.79 Polyp of ascending colon K63.5 History of tobacco use Z87.891 Personal history of alcoholism ([facility]) F10.21 Full code status Z78.9 Coarse tremors [...] C67.9 Venous thrombosis of upper extremity I82.609 Hanna's esophagus without dysplasia K22.70 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 Past Surgical History: Procedure Laterality Date BRAIN ANEURYSM REPR, SIMPLE 2012 MRI compatible brain aneurysm clip [facility] [place] COLONOSCOPY CYSTOSCOPY/BIOPSY 03/29/2023 cystoscopy, fulgaration of bladder lesion. Dr Reyna, [facility] INFORMATION removal of benign neoplasm nose ND COLSC FLX W/RMVL OF TUMOR POLYP LESION SNARE TQ four sessile polyps ascending colon and cecum. Nallely ND CREAT AV FISTULA,AUTOGENOUS GRAFT Left 03/23/2023 Dr. Eriberto Augustine TOOTH ROOT REMOVAL complete dental extraction UPPER GI ENDOSCOPY 05/20/2023 Barretts esophagus, duodenal polyp. Nallely Family History Problem Relation Age of Onset [...] date: 1966 Quit date: 2021 Years since quittin.9 Smokeless tobacco: Never Vaping Use Vaping Use: [...] list as this cannot be edited in [employer]. Review of Systems: Constitutional ROS: + change in weight, less weakness, less fatigue and No fevers, sweats, or chills Nose ROS: No nasal stuffiness and No significant epistaxis Mouth/Throat ROS: No thrush or No sore throat Neck ROS: No lumps or masses, No swollen glands, No recent swelling in thyroid area and No significant pain in neck Pulmonary ROS: less cough, sputum, or hemoptysis, less wheezing, lessshortness of breath and No recent change in breathing Cardiovascular ROS: No chest pain, less shortness of breath, No edema, No palpitations and No syncope Gastrointestinal ROS: No abdominal pain, No change in bowel habits, No significant change in appetite, No nausea, vomiting, diarrhea, or constipation and No dysphagia Skin/Integumentary ROS: No rash and + itching Neurologic ROS: No headaches and No seizures Psychiatric ROS: No depression, No anxiety and No psychosis + dementia, PTSD OBJECTIVE: PHYSICALEXAM: I reviewed the most recent facilities vitals. General: more alert, no distress, thin, frail Eye Exam: [...] bowel sounds and no masses or organomegaly much less ascites Extremities: no edema, no clubbing, no cyanosis Skin: skin color, texture, turgor are normal, no rashes or significant lesions ASSESSMENT: Ascites due to alcoholic cirrhosis (HCC) (Primary) Significant amount of fluid removed Will continue to follow weights QOD Will continue to follow with hepatology Status post abdominal paracentesis Significant amount of fluid removed Will continue to follow weights QOD Will continue to follow with hepatology ESRD on dialysis (HCC) Continue with dialysis three days weekly 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 behavioral disturbance, psychotic disturbance, mood disturbance, or anxiety (HCC) Stable mood and mentation Continue with Trazodone 50mg HS PLAN: Continue present medication(s):as ordered. Shelter Home Treatment Given: as above Electronically signed by: Brianna Orozco PA-C Over 35 minutes were spent in this visit more than half the time was spent counselling or coordinating care. documented in this encounter Plan of Treatment Upcoming Encounters Date Type Department Care Team (Late st Contact Info) Description 05/25/2023 1:00 PM EST Office Visit Orthopaedics [facility] [address] [place] [address] SharerCiara PA-C [address] [place] [address] 07/14/2023 9:20 AM EST Office Visit Dermatology [address] [place] [address] Jessica Williamson PA-C [address] [place] [address] [place] [address] 08/19/2023 11:40 AM EST Office Visit Hepatology, [facility] [address] [place] [address] Latoya Selby DO [address] [place] [address] Health Maintenance Due Date Last Done Comments Hanna's Esophagus Surveilance 1950 Pneumococcal Vaccine: 65+ Years (1 - PCV) 1956 Depression Screening 1962 O2 ASSESSMENT COMPLETED IN PAST YEAR FOR COPD 1968 Cologuard 1995 Fecal Occult Blood Test 1995 Sigmoidoscopy 1995 LUNG CANCER SCREENING - USE SMARTSET 30071 2000 Zoster Vaccines (1 of 2) 2000 [...] Ascites due to alcoholic cirrhosis (HCC)- Primary Status post abdominal paracentesis ESRD on dialysis (HCC) End stage renal disease 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 behavioral disturbance, psychotic disturbance, mood disturbance, or anxiety (HCC) documented in this encounter Care Teams Pre Sales Network Engineer Relationship Specialty Start Date End Date Maximo Taylor MD [address] [place] [address] PCP - General Family Medicine 05/04/23 documented as of this encounter
--- OUTSIDE RECORDS SUMMARY | 2023-06-18 15:40 | External Medical Summary ---
Author Name Unknown Address Unknown Organization K0G:[facility] - [address] [place] [address] Laboratory Report Ordering Provider Test Date Status SUSHANT JENKINS 05/24/2023 06:24:00 Final Observation Date Value Abnormality Reference (Units ) Status SYNC LEUKOCYTES IN BLOOD BY AUTOMATED COUNT 05/24/2023 06:24:00 5.77 4.00-10.80 (K/uL) Final Segs 05/24/2023 06:24:00 60.9 40.0-75.0 (%) Final Lymphs % 05/24/2023 06:24:00 19.2 18.0-42.0 (%) Final Monos 05/24/2023 06:24:00 14.7 Above high normal 1.0-11.0 (%) Final Eosinophils 05/24/2023 06:24:00 4.7 0.0-6.0 (%) Final Basos 05/24/2023 06:24:00 0.5 0.0-2.0 (%) Final Absolute Segs 05/24/2023 06:24:00 3.51 1.80-7.70 (K/uL) Final Lymphs, absolute 05/24/2023 06:24:00 1.11 1.00-4.80 (K/ul) Final Monos, Abs 05/24/2023 06:24:00 0.85 0.00-1.10 (K/uL) Final Eos, Abs 05/24/2023 06:24:00 0.27 0.00-0.70 (K/uL) Final Basos, Abs 05/24/2023 06:24:00 0.03 0.00-0.20 (K/uL) Final Performing Location [facility]ORY [facility] 0 - [address] [place] [address]
--- OUTSIDE RECORDS SUMMARY | 2023-06-18 15:40 | External Medical Summary ---
Author Name Unknown Address Unknown Organization K0G:LABORATORY [facility] [address] - [address] [place] [address] Laboratory Report Ordering Provider Test Date Status SUSHANT JENKINS 05/31/2023 06:16:00 Final Observation Date Value Abnormality Reference (Units ) Status Nucleated erythrocytes/100 leukocytes [Ratio] in Blood by Automated count 05/31/2023 06:16:00 Final Schistocytes 05/31/2023 06:16:00 Few Abnormal None Seen Final Performing Location LAB[facility]ATORY [facility] [address] 0 - [address] [place] [address]
--- OUTSIDE RECORDS SUMMARY | 2023-06-18 15:40 | External Medical Summary | Summary of Care ---
Author Name Unknown Organization [facility] Address [address] [place] [address] Phone [phone] Care Team Providers Care Human Resources Office Manager Name Role Phone Maximo Taylor MD Primary Care Provide r Encounter Details Date Type Department Care Team (Late st Contact Info) Description 05/31/2023 Orders Only Lab Mobile Phlebotomy [facility] [address] [place], [place] [phone] Maximo Taylor MD [address] [place] [address] [place] [address] Routine medical exam* Allergies Active Allergy Reactions Criticality Noted Date [...] cut, crush or chew 0 01/21/2023 Active Crowley Caps 1 MG Oral Capsule Take 1 [...] paracentesis 100 mL 0 04/09/2023 Active PEG 3578-FFj-GcEfq-NaCl- NaSulf 236 GM Oral Solution Reconstituted Take [...] Care Team (Late st Contact Info) Description 05/31/2023 8:20 AM EST Laboratory Lab Mobile Phlebotomy [facility] [address] [facility] [place] [address] [place] [address] 06/08/2023 1:30 PM EST Telemedicine Orthopaedics [facility] [address] [place] [address] SharerCiara PA-C [address] [place] [address] 07/14/2023 9:20 AM EST Office Visit Dermatology [address] [place] [address] Jessica Williamson PA-C [address] [place] [address] [place] [address] 08/19/2023 11:40 AM EST Office Visit Hepatology, [facility] [address] [place] [address] Latoya Selby DO [address] [place] [address] Scheduled Orders Name Type Priority Associated Diagnoses Orde r Schedule CBC WITH WBC DIFFERENTIAL Lab Routine Routine medical exam Expected: 05/31/2023, Expires: 05/31/2024 APTT Lab Routine Routine medical exam Expected: 05/31/2023, Expires: 05/31/2024 Health Maintenance Due Date Last Done Comments Hanna's Esophagus Surveilance 1950 Pneumococcal Vaccine: 65+ Years (1 - PCV) 1956 Depression Screening 1962 O2 ASSESSMENT COMPLETED IN PAST YEAR FOR COPD 1968 Cologuard 1995 Fecal Occult Blood Test 1995 Sigmoidoscopy 1995 LUNG CANCER SCREENING - USE SMARTSET 33702 2000 Zoster Vaccines (1 of 2) 2000 [...] as of this encounter Visit Diagnoses Diagnosis Routine medical exam- Primary Routine general medical examination at a health care facility documented in this encounter Care Teams Human Resources Office Manager Relationship Specialty Start Date End Date Maximo Taylor MD [address] [place] [address] [place] [address] PCP - General Family Medicine 05/04/23 documented as of this encounter
--- OUTSIDE RECORDS SUMMARY | 2023-06-18 15:40 | External Medical Summary | Summary of Care ---
Author Name Unknown Organization [facility] Address [address] [facility] [place] [address] Phone [phone] Care Team Providers Care Ceramic Products Sales Engineer Name Role Phone Maximo Taylor MD Primary Care Provide r Reason for Referral * Evaluate & Treat - Unlimited Visits (Within 10 days (routine)) - Authorized Specialty Diagnoses / Procedures Referred By Vivi avila Referred To Contact Occupational Medicine / Occupational Therapy Diagnoses Closed fracture of distal end of left radius with routine healing, unspecified fracture morphology, subsequent encounter SharerCiara PA-C [address] [place] [address] Referral ID Status Reason Start Date Expiration Date Visits Requested Visits Authorized [id number] Authorized Specialty Services Required 05/28/[phone] Question Answer Referral Priority Within 10 days (routine) Where should this appointment be scheduled? [facility] Comments Wrist ROM Encounter Details Date Type Department Care Team (Late st Contact Info) Description 05/28/2023 Telephone Orthopaedics [facility] [address] [place] [address] KeyrCiara PA-C [address] [place] [address] Allergies Active Allergy Reactions Criticality Noted Date Comments Lisinopril 04/09/2023 documented as of this encounter (statuses as of 05/28/2023) Medications Medication Sig Dispensed Refills Start Date [...] paracentesis 100 mL 0 04/09/2023 Active PEG 3530-VUy-RaPvc-NaCl- NaSulf 236 GM Oral Solution Reconstituted Take [...] as of this encounter (statuses as of 05/28/2023) Active Problems Problem Noted Date Diagnosed Date [...] as of this encounter (statuses as of 05/28/2023) Immunizations Name Administration Dates Next Due Seasonal [...] encounter Miscellaneous Notes * Telephone Encounter - Lashell Patel LPN - 05/28/2023 4:06 PM EST Received request from Rosa Elena Jones from [facility] order to be changed to OT and sent fax [phone]. Completed and succes faxed documented in this encounter Plan of Treatment Upcoming Encounters Date Type Department Care Team (Late st Contact Info) Description 06/08/2023 1:30 PM EST Telemedicine Orthopaedics [facility] [address] [place] [address] Ciara Major PA-C [address] [place] [address] 07/14/2023 9:20 AM EST Office Visit Dermatology [address] [place] [address] Jessica Williamson PA-C [address] [place] [address] [place] [address] 08/19/2023 11:40 AM EST Office Visit Hepatology, [facility] [address] [place] [address] Latoya Selby DO [address] [place] [address] Scheduled Referrals Name Type Priority Associated Diagnoses Orde r Schedule OCCUPATIONAL THERAPY REFERRAL OP Referral Within 10 days (routine) Closed fracture of distal end of left radius with routine healing, unspecified fracture morphology, subsequent encounter Ordered: 05/28/2023 Health Maintenance Due Date Last Done Comments Hanna's Esophagus Surveilance 1950 Pneumococcal Vaccine: 65+ Years (1 - PCV) 1956 Depression Screening 1962 O2 ASSESSMENT COMPLETED IN PAST YEAR FOR COPD 1968 Cologuard 1995 Fecal Occult Blood Test 1995 Sigmoidoscopy 1995 LUNG CANCER SCREENING - USE SMARTSET 79980 2000 Zoster Vaccines (1 of 2) 2000 [...] Closed fracture of distal end of left radius with routine healing, unspecified fracture morphology, subsequent encounter- Primary documented in this encounter Care Teams Ceramic Products Sales Engineer Relationship Specialty Start Date End Date Maximo Taylor MD [address] [place] [address], [place] [address] PCP - General Family Medicine 05/04/23 documented as of this encounter
--- OUTSIDE RECORDS SUMMARY | 2023-06-18 15:40 | External Medical Summary | Summary of Care ---
Author Name Unknown Organization [facility] Address [address] [place] [facility] [place] [place] [address] Phone [phone] Care Team Providers Care Child Welfare Counselor Name Role Phone Maximo Taylor MD Primary Care Provide r Reason for Referral * Evaluate & Treat - Unlimited Visits (Within 10 days (routine)) - Authorized Specialty Diagnoses / Procedures Referred By Vivi avila Referred To Contact Occupational Medicine / Occupational Therapy Diagnoses Closed fracture of distal end of left radius with routine healing, unspecified fracture morphology, subsequent encounter SharerCiara PA-C [address] [place] [address] Referral ID Status Reason Start Date Expiration Date Visits Requested Visits Authorized [id number] Authorized Specialty Services Required 05/28/2023 999 999 Question Answer Referral Priority Within 10 days (routine) Where should this appointment be scheduled? [facility] Comments Wrist ROM Reason for Visit * Reason Onset Date Comments Fax 05/28/2023 Encounter Details Date Type Department Care Team (Late st Contact Info) Description 05/28/2023 Telephone Orthopaedics [facility] [address] [place] [address] KeyrCiara PA-C [address] [place] [address] Fax Allergies Active Allergy Reactions Criticality Noted Date [...] cut, crush or chew 0 01/21/2023 Active [place] Caps 1 MG Oral Capsule Take 1 [...] paracentesis 100 mL 0 04/09/2023 Active PEG 9579-YQh-IvKxj-NaCl- NaSulf 236 GM Oral Solution Reconstituted Take [...] encounter Miscellaneous Notes * Telephone Encounter - Jina Back OSA - 05/31/2023 1:45 PM EST Jeet from Rosa Elena Jones states that he never received referral. Right faxed again to number given. * Telephone Encounter - Lashell Patel LPN - 05/28/2023 4:06 PM EST Received request from Rosa Elena Jones from [facility] order to be changed to OT and sent fax [phone]. Completed and succes faxed documented in this encounter Plan of Treatment Upcoming Encounters Date Type Department Care Team (Late st Contact Info) Description 06/08/2023 1:30 PM EST Telemedicine Orthopaedics [facility] 132 [facility] [place] [address] Ciara Major PA-C 132 [facility] [place] [address] 07/14/2023 9:20 AM EST Office Visit Dermatology [address] [place] [address] Jessica Williamson PA-C [address] [place] [address] [place] [address] 08/19/2023 11:40 AM EST Office Visit Hepatology, [facility] 132 [facility] [place] [address] Latoya Selby DO [address] [place] [address] Scheduled Referrals Name Type Priority Associated Diagnoses [...] 1995 LUNG CANCER SCREENING - USE SMARTSET 46285 2000 Zoster Vaccines (1 of 2) 2000 [...] Primary documented in this encounter Care Teams Child Welfare Counselor Relationship Specialty Start Date End Date Maximo Taylor MD 100 [facility] [place] [address] PCP - General Family Medicine 05/04/23 documented as of this encounter
--- OUTSIDE RECORDS SUMMARY | 2023-06-18 15:40 | External Medical Summary | Summary of Care ---
Author Name Unknown Organization [facility] Address [address] [facility] [place] [address] Phone [phone] Care Team Providers Care Card Sorter Name Role Phone Maximo Taylor MD Primary Care Provide r Encounter Details Date Type Department Care Team (Late st Contact Info) Description 05/26/2023 External Data Patient Risk Medial Allergies Active Allergy Reactions Criticality Noted Date Comments Lisinopril 04/09/2023 documented as of this encounter (statuses as of 05/26/2023) Medications Medication Sig Dispensed Refills Start Date [...] cut, crush or chew 0 01/21/2023 Active [place] Caps 1 MG Oral Capsule Take 1 [...] paracentesis 100 mL 0 04/09/2023 Active PEG 1481-NSa-JuMbb-NaCl- NaSulf 236 GM Oral Solution Reconstituted Take [...] as of this encounter (statuses as of 05/26/2023) Active Problems Problem Noted Date Diagnosed Date [...] as of this encounter (statuses as of 05/26/2023) Immunizations Name Administration Dates Next Due Seasonal [...] Description 06/08/2023 1:30 PM EST Telemedicine Orthopaedics [facility] [address] [place] [address] SharerCiara PA-C [address] [place] [address] 07/14/2023 9:20 AM EST Office Visit Dermatology [address] [place] [address] Jessica Williamson PA-C [address] [place] [address] [place] [address] 08/19/2023 11:40 AM EST Office Visit Hepatology, [facility] [address] [place] [address] Latoya Selby DO [address] [place] [address] Health Maintenance Due Date Last Done Comments Hanna's Esophagus Surveilance 1950 Pneumococcal Vaccine: 65+ Years (1 - PCV) 1956 Depression Screening 1962 O2 ASSESSMENT COMPLETED IN PAST YEAR FOR COPD 1968 Cologuard 1995 Fecal Occult Blood Test 1995 Sigmoidoscopy 1995 LUNG CANCER SCREENING - USE SMARTSET 80598 2000 Zoster Vaccines (1 of 2) 2000 [...] filedocumented as of this encounter Care Teams Card Sorter Relationship Specialty Start Date End Date Maximo Taylor MD [facility] [place] [address] PCP - General Family Medicine 05/04/23 documented as of this encounter
--- OUTSIDE RECORDS SUMMARY | 2023-06-18 15:40 | External Medical Summary | Summary of Care ---
Author Name Unknown Organization [facility] Address [address] [facility] [place] [address] Phone [phone] Care Team Providers Care Hot Plate Plywood Press Feeder Name Role Phone Maximo Taylor MD Primary Care Provide r Encounter Details Date Type Department Care Team (Late st Contact Info) Description 05/25/2023 Orders Only Lab Mobile [facility]bot[facility] [address] [facility] [place], [place] [phone] Maximo Taylor MD [address] [place] [address] [place] [address] Elevated liver enzymes*; Anemia Allergies Active Allergy Reactions Criticality Noted Date Comments Lisinopril 04/09/2023 documented as of this encounter (statuses as of 05/25/2023) Medications Medication Sig Dispensed Refills Start Date [...] cut, crush or chew 0 01/21/2023 Active [place] Caps 1 MG Oral Capsule Take 1 [...] paracentesis 100 mL 0 04/09/2023 Active PEG 7984-ORf-QhFin-NaCl- NaSulf 236 GM Oral Solution Reconstituted Take [...] as of this encounter (statuses as of 05/25/2023) Active Problems Problem Noted Date Diagnosed Date [...] as of this encounter (statuses as of 05/25/2023) Immunizations Name Administration Dates Next Due Seasonal [...] Team (Late st Contact Info) Description 05/26/2023 8:50 AM EST Laboratory Lab Mobile Phlebotomy [facility] [address] [facility] [place] [address] [place] [address] 06/08/2023 1:30 PM EST Telemedicine Orthopaedics [facility] [address] [place] [address] Ciara Major PA-C [address] [place] [address] 07/14/2023 9:20 AM EST Office Visit Dermatology [address] [place] [address] Jessica Williamson PA-C [address] [place] [address] [place] [address] 08/19/2023 11:40 AM EST Office Visit Hepatology, [facility] [address] [place] [address] Latoya Selby DO [address] [place] [address] Scheduled Orders Name Type Priority Associated Diagnoses Orde r Schedule VARICELLA-ZOSTER VIRUS ANTIBODY, IGM Lab Routine Elevated liver enzymes Anemia Expected: 05/26/2023, Expires: 05/25/2024 VARICELLA-ZOSTER VIRUS ANTIBODY, IGG Lab Routine Elevated liver enzymes Anemia Expected: 05/26/2023, Expires: 05/25/2024 Health Maintenance Due Date Last Done Comments Hanna's Esophagus Surveilance 1950 Pneumococcal Vaccine: 65+ Years (1 - PCV) 1956 Depression Screening 1962 O2 ASSESSMENT COMPLETED IN PAST YEAR FOR COPD 1968 Cologuard 1995 Fecal Occult Blood Test 1995 Sigmoidoscopy 1995 LUNG CANCER SCREENING - USE SMARTSET 91915 2000 Zoster Vaccines (1 of 2) 2000 [...] as of this encounter Visit Diagnoses Diagnosis Elevated liver enzymes- Primary Nonspecific elevation of levels of transaminase or lactic acid dehydrogenase (LDH) Anemia Anemia, unspecified documented in this encounter Care Teams Hot Plate Plywood Press Feeder Relationship Specialty Start Date End Date Maximo Taylor MD 100 [facility] [place] [address] PCP - General Family Medicine 05/04/23 documented as of this encounter
--- OUTSIDE RECORDS SUMMARY | 2023-06-18 15:40 | External Medical Summary | Summary of Care ---
Author Name Unknown Organization [facility] Address [address] [facility] [place] [address] Phone [phone] Care Team Providers Care Senior Ui Ux Designer Name Role Phone Maximo Taylor MD Primary Care Provide r Reason for Referral * Evaluate & Treat - Unlimited Visits (Within 10 days (routine)) - Authorized Specialty Diagnoses / Procedures Referred By Vivi avila Referred To Contact Physical Therapy / Physical Medicine And Rehab Diagnoses Closed fracture of distal end of left radius with routine healing, unspecified fracture morphology, subsequent encounter Ciara Major PA-C [address] [place] [address] Referral ID Status Reason Start Date Expiration Date Visits Requested Visits Authorized [id number] Authorized Specialty Services Required 05/25/2023 999 999 Question Answer Referral Priority Within 10 days (routine) Where should this appointment be scheduled? External Comments Wrist ROM Reason for Visit * Reason Comments Follow Up Distal radius fractu re Encounter Details Date Type Department Care Team (Late st Contact Info) Description 05/25/2023 1:00 PM EST Office Visit Orthopaedics [facility] [address] [place] [address] Ciara Major PA-C [address] [place] [address] Closed fracture of distal end of left radius with routine healing, unspecified fracture morphology, subsequent encounter* Allergies Active Allergy Reactions Criticality Noted Date [...] cut, crush or chew 0 01/21/2023 Active [place] Caps 1 MG Oral Capsule Take 1 [...] paracentesis 100 mL 0 04/09/2023 Active PEG 0230-MDs-QeZmf-NaCl- NaSulf 236 GM Oral Solution Reconstituted Take [...] Smoking Tobacco: Former Cigarettes 1 55 1 7 - 2021 Smokeless Tobacco: Never Alcohol Use [...] encounter Patient Instructions * Patient Instructions* Ciara Major PA-C - 05/25/2023 1:03 PM EST Patient may remove brace for light activities. Recommend patient wear the wrist splint when active and gradually wean out of splint over the next 2 weeks. Remain non weight bearing. documented in this encounter Progress Notes * Ciara Major PA-C - 05/25/2023 1:11 PM EST Sisi Redmond is a 72 year old male who presents to [facility] for left wrist injury/pain. History: Patient presents for 8 week follow up with nondisplaced intraarticular distal radius fracture as well as ulnar styloid fracture. Patient has been immobilized in short-arm Exos which he is wearing consistently. Patient has been compliant with weight-bearing restrictions. States pain has completely resolved. Review of systems: All others negative except [...] SIMPLE 2013 MRI compatible brain aneurysm clip [facility] [place] COLONOSCOPY CYSTOSCOPY/BIOPSY 03/29/2023 cystoscopy, fulgaration of bladder lesion. Dr Reyna, [facility] INFORMATION removal of benign neoplasm nose [place] COLSC FLX W/RMVL OF TUMOR POLYP LESION SNARE TQ four sessile polyps ascending colon and cecum. Nallely VT CREAT AV FISTULA,AUTOGENOUS GRAFT Left 03/23/2023 Dr. Eriberto Augustine TOOTH ROOT REMOVAL complete dental extraction UPPER GI ENDOSCOPY 05/20/2023 Barretts esophagus, duodenal polyp. [place] Physical Exam There were no vitals filed [...] extremity (s) MSK: Wrist Exam, Bilateral Inspection: no wrist swelling. Skin intact Palpation: no tenderness to palpation along the distal radius. ROM: limited on the left Numbness/Tingling: None Bilateral Assessment and Plan: Closed fracture of distal end of left radius with routine healing, unspecified fracture morphology,subsequent encounter (Primary) - XR WRIST 3 OR MORE VIEWS - PHYSICAL THERAPY REFERRAL OP Patient may remove brace for light activities. Recommend patient wear the wrist splint when active and gradually wean out of splint over the next 2 weeks. Advised to remain non weight bearing. Recommend course of physical therapy. Follow Up: Return in about 2 weeks (around 06/08/2023) for Telephone Visit f/u wrist fracture . | For: Telephone Visit f/u wrist fracture Ciara Major PA-C Primary Care Sports Medicine Orthopaedics [facility] [address] [place] [address] documented in this encounter Nursing Notes * Wanda Bradley MED ASSIST - 05/25/2023 12:43 PM EST Patient presents today for 3 week follow up on left distal radius fracture. documented in this encounter Plan of Treatment Upcoming Encounters Date Type Department Care Team (Late st Contact Info) Description 06/08/2023 1:30 PM EST Telemedicine Orthopaedics [facility] [address] [place] [address] Ciara Major PA-C [address] [place] [address] 07/14/2023 9:20 AM EST Office Visit Dermatology [address] [place] [address] Jessica Williamson PA-C [address] [place] [address] [place] [address] 08/19/2023 11:40 AM EST Office Visit Hepatology, [facility] [address] [place] [address] Latoya Selby DO [address] [place] [address] Pending Results Name Type Priority Associated Diagnoses Date /Time XR WRIST 3 OR MORE VIEWS Medical Imaging Routine Closed fracture of distal end of left radius with routine healing, unspecified fracture morphology, subsequent encounter 05/25/2023 12:55 PM EST Scheduled Referrals Name Type Priority Associated Diagnoses Orde r Schedule PHYSICAL THERAPY REFERRAL OP Referral Within 10 days (routine) Closed fracture of distal end of left radius with routine healing, unspecified fracture morphology, subsequent encounter Ordered: 05/25/2023 Health Maintenance Due Date Last Done Comments Hanna's Esophagus Surveilance 1950 Pneumococcal Vaccine: 65+ Years (1 - PCV) 1956 Depression Screening 1962 O2 ASSESSMENT COMPLETED IN PAST YEAR FOR COPD 1968 Cologuard 1995 Fecal Occult Blood Test 1995 Sigmoidoscopy 1995 LUNG CANCER SCREENING - USE SMARTSET 75441 2000 Zoster Vaccines (1 of 2) 2000 [...] Primary documented in this encounter Care Teams Senior Ui Ux Designer Relationship Specialty Start Date End Date Maximo Taylor MD [address] [place], [place] [id number] PCP - General Family Medicine 05/04/23 documented as of this encounter"
--- OUTSIDE RECORDS SUMMARY | 2023-06-18 15:40 | External Medical Summary ---
Author Name Unknown Address Unknown Organization [facility] [place] [address] [place] [id number] Laboratory Report Ordering Provider Test Date Status SUSHANT JENKINS 05/31/2023 06:16:00 Final Observation Date Value Abnormality Reference (Units ) Status WBC, Total 05/31/2023 06:16:00 9.20 4.00-10.8 0 (K/uL) Final RBC 05/31/2023 06:16:00 3.25 4.50-5.25 (M/uL) Final Hemoglobin 05/31/2023 06:16:00 9.7 Below low normal 14 .0-16.8 (g/dL) Final HCT 05/31/2023 06:16:00 30.4 Below low normal 40. 0-48.4 (%) Final MCV 05/31/2023 06:16:00 93.5 82.0-99.5 (fL) Final MCH 05/31/2023 06:16:00 29.8 27.0-34.0 (pg) Final MCHC 05/31/2023 06:16:00 31.9 32.0-36.0 (g/dL) Final RDW 05/31/2023 06:16:00 15.1 11.5-15.5 (%) Final Platelets 05/31/2023 06:16:00 315 140-400 (K /uL) Final MPV 05/31/2023 06:16:00 9.7 6.6-11.1 ( fL) Final Performing Location [facility] [address] [place] [id number]
--- OUTSIDE RECORDS SUMMARY | 2023-06-18 15:40 | External Medical Summary ---
Author Name Unknown Address Unknown Organization [facility] [place] [address] [place] [id number] Laboratory Report Ordering Provider Test Date Status SUSHANT JENKINS 05/31/2023 06:16:00 Final Observation Date Value Abnormality Reference (Units ) Status SYNC LEUKOCYTES IN BLOOD BY AUTOMATED COUNT 05/31/2023 06:16:00 9.20 4.00-10.80 (K/uL) Final Segs 05/31/2023 06:16:00 72.9 40.0-75.0 (%) Final Lymphs % 05/31/2023 06:16:00 12.2 Below low normal 18.0-42.0 (%) Final Monos 05/31/2023 06:16:00 12.4 Above high normal 1.0-11.0 (%) Final Eosinophils 05/31/2023 06:16:00 2.3 0.0-6.0 (%) Final Basos 05/31/2023 06:16:00 0.2 0.0-2.0 (%) Final Absolute Segs 05/31/2023 06:16:00 6.71 1.80-7.70 (K/uL) Final Lymphs, absolute 05/31/2023 06:16:00 1.12 1.00-4.80 (K/ul) Final Monos, Abs 05/31/2023 06:16:00 1.14 Above high normal 0.00-1.10 (K/uL) Final Eos, Abs 05/31/2023 06:16:00 0.21 0.00-0.70 (K/uL) Final Basos, Abs 05/31/2023 06:16:00 0.02 0.00-0.20 (K/uL) Final Performing Location [facility] [place] [address] [place] [id number]
--- OUTSIDE RECORDS SUMMARY | 2023-06-18 15:40 | External Medical Summary ---
Author Name Unknown Address Unknown Organization K0[facility]ORY [facility] [place] [address] [place] [id number] Laboratory Report Ordering Provider Test Date Status SUSHANT JENKINS 05/24/2023 06:24:00 Final Anticoagulation may affect t esting. Refer to [facility] Test Catalog for a list of effects. Observation Date Value Abnormality Reference (Units ) Status aPTT panel - Platelet poor plasma 05/24/2023 06:24:00 32 21-38 (seconds) Final Performing Location [facility]ORY [facility] [place] [address] [place] [address]
--- OUTSIDE RECORDS SUMMARY | 2023-06-18 15:40 | External Medical Summary | Summary of Care ---
Author Name Unknown Organization [facility] Address [address] [place] [address] Phone [phone] Care Team Providers Care Land Surveying Manager Name Role Phone Maximo Taylor MD Primary Care Provide r Reason for Visit * Reason Onset Date Comments [facility] Visit 05/25/2023 Encounter Details Date Type Department Care Team (Latest Contact Info) Description 05/25/2023 12:00 PM EST [facility] Visit [facility] [place] [address] [place] [address] Brianna Orozco PA-C [address] [place] [address] Redness of right eye*; Ascites due to alcoholic cirrhosis (HCC); ESRD on dialysis (HCC) Allergies Active [...] cut, crush or chew 0 01/21/2023 Active Wolfe Caps 1 MG Oral Capsule Take 1 [...] paracentesis 100 mL 0 04/09/2023 Active PEG 9402-DTl-MdErt-NaCl- NaSulf 236 GM Oral Solution Reconstituted Take [...] Progress Notes * Brianna Orozco PA-C - 05/25/2023 11:12 AM EST Name: Sisi Redmond Date of :1950 TRANSITION EVENT: Type: Non-applicable Date: May 25 Code Status: Full Code This note pertains to care provided at [facility]. Please see facility medical record for original note. This note is not to be edited or addended in [employer]. Editing or addending needs to occur in the facilities medical record. Subjective: Sisi Redmond is a 72 year old male. Patient being seen for recheck red, painful right eye Chief Complaint Patient presents with [facility] Visit HPI: pt was evaluated for red, swollen and painful right eye. He also had solitary crusting lesion which was painful right side of neck. Concern for H Zoster. Begun on Famvir 250mg after each dialsysis session. He was also begun on Polytrim drops as directed. In process of obtain urgent specialty eye exam. Pt states his eye feels better today. Less painful and itching and burning. Lesion on right neck isstill painful no change in vision according to pt. No chils or fever. No lesions on nose or side offace. Pt's weight is staying around 157 pounds from high of 178 pounds. Had abdominal paracentesis last week with 7.5 liters of fluid removed. Pt's breathing is stable. Vital signs stable. Labs done at dialysis center. Patient Active Problem List Diagnosis Code FX CORONOID PROC ULNA-CL S52.043A DISLOCAT ELBOW NEC-CLOSE S53.196A ESRD on dialysis ([facility]) N18.6, Z99.2 HTN, goal below 130/80 I10 Iron deficiency anemia D50.9 Slow transit constipation K59.01 PTSD (post-traumatic stress disorder) F43.10 COPD, moderate ([facility]) J44.9 Vitamin B1 deficiency E51.9 Vitamin D deficiency E55.9 Dry skin dermatitis L85.3 Secondary hyperparathyroidism of renal origin ([facility]) N25.81 Polycystic renal disease Q61.3 PAF (paroxysmal atrial fibrillation) ([facility]) I48.0 Primary insomnia F51.01 Pruritic condition L29.9 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 behavioral disturbance, psychotic disturbance, mood disturbance, or anxiety ([facility]) G30.1, F02.A0 BPH without obstruction/lower urinary tract [...] 2012 MRI compatible brain aneurysm clip [facility] COLONOSCOPY CYSTOSCOPY/BIOPSY 03/29/2023 cystoscopy, fulgaration of bladder lesion. Dr Reyna, [facility] INFORMATION removal of benign neoplasm nose IN COLSC FLX W/RMVL OF TUMOR POLYP LESION SNARE TQ four sessile polyps ascending colon and cecum. 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 [...] list as this cannot be edited in [employer]. Review of Systems: Constitutional ROS: No change in weight, No change in weakness, No change in fatigue and No fevers,sweats, or chills Eye ROS: see HPI Ear ROS: No ear pain, No drainage, No tinnitus or vertigo and No recent change in hearing Nose ROS: No nasal stuffiness and No significant epistaxis Mouth/Throat ROS: No thrush or No sore throat Neck ROS: No lumps or masses, No swollen glands, No recent swelling in thyroid area and No significant pain in neck Pulmonary ROS: No cough, sputum, or hemoptysis, No wheezing, No shortness of breath and No recent change in breathing Cardiovascular ROS: No chest pain, No shortness of breath, No edema, No palpitations and No syncope Gastrointestinal ROS: No abdominal pain, No change in bowel habits, No significant change in appetite, No nausea, vomiting, diarrhea, or constipation and No dysphagia OBJECTIVE: PHYSICALEXAM: I reviewed the most recent facilities vitals. General: alert, no distress, well nourished and well developed Head: Normocephalic, No masses, lesions, tenderness or abnormalities no facial vesicular lesions Eye Exam: right eye less swollen and red compared to yesterday Ears: External ears normal Nose: no mucosal erythema, no mucosal edema, no purulent discharge Oropharynx: no exudate, no erythema, lips, buccal mucosa, and tongue normal and mucous membranes are moist Neck: supple, no adenopathy, non-tender, neck veins flat, trachea midline shearing machine tender crusted solitary lesion right neck Lymph: no palpable lymphadenopathy Heart: regular rate & rhythm, no murmurs and no gallops Lungs: normal respiratory rate and rhythm, no chest wall tenderness, lungs clear to auscultation Abdomen: abdomen soft, non-tender, normal bowel sounds and no masses or organomegaly ASSESSMENT: Redness of right eye (Primary) Clinically improved Will continue with Polytrim drops and Famvir 250mg after each dialysis session Continue with ophthalmology exam to rule out zoster Ascites due to alcoholic cirrhosis (HCC) Weight stable currently Will follow closely Follows with hepatology ESRD on dialysis (HCC) Continue with dialysis as directed PLAN: Continue present medication(s):as ordered. Detention Home Treatment Given: as above Electronically signed by: Brianna Orozco PA-C Over 35 minutes were spent in this visit more than half the time was spent counselling or coordinating care. documented in this encounter Plan of Treatment Upcoming Encounters Date Type Department Care Team (Late st Contact Info) Description 05/25/2023 1:00 PM EST Office Visit Orthopaedics [facility] [address] [place] [address] Ciara Major PA-C [address] [place] [address] 07/14/2023 9:20 AM EST Office Visit Dermatology [address] [place] [address] Jessica Williamson PA-C [address] [place] [address] [place] [address] 08/19/2023 11:40 AM EST Office Visit Hepatology, [facility] [address] [place] [address] Latoya Selby DO [address] [place] [address] Health Maintenance Due Date Last Done Comments Hanna's Esophagus Surveilance 1950 Pneumococcal Vaccine: 65+ Years (1 - PCV) 1956 Depression Screening 1962 O2 ASSESSMENT COMPLETED IN PAST YEAR FOR COPD 1968 Cologuard 1995 Fecal Occult Blood Test 1995 Sigmoidoscopy 1995 LUNG CANCER SCREENING - USE SMARTSET 17307 2000 Zoster Vaccines (1 of 2) 2000 [...] as of this encounter Visit Diagnoses Diagnosis Redness of right eye- Primary Redness or discharge of eye Ascites due to alcoholic cirrhosis (HCC) ESRD on dialysis (HCC) End stage renal disease documented in this encounter Care Teams Land Surveying Manager Relationship Specialty Start Date End Date Maximo Taylor MD [address] [place] [address] PCP - General Family Medicine 05/04/23 documented as of this encounter
--- OUTSIDE RECORDS SUMMARY | 2023-06-18 15:40 | External Medical Summary | Summary of Care ---
Author Name Unknown Organization [facility] Address [address] [place] [address] Phone [phone] Care Team Providers Care Script Editor Name Role Phone Maximo Taylor MD Primary Care Provide r Reason for Visit * Reason Onset Date Comments Complicated Acute Visit 05/24/2023 Encounter Details Date Type Department Care Team (Latest Contact Info) Description 05/24/2023 6:00 AM EST [facility] Visit [facility] [address] [place] [address] Brianna Orozco PA-C [address] [place] [address] Redness of right eye*; Eye pain, right; ESRD on dialysis (HCC); Ascites due to alcoholic cirrhosis (HCC) Allergies [...] cut, crush or chew 0 01/21/2023 Active Amlin Caps 1 MG Oral Capsule Take 1 [...] paracentesis 100 mL 0 04/09/2023 Active PEG 6120-WGg-WeJds-NaCl- NaSulf 236 GM Oral Solution Reconstituted Take [...] 05/25/2023 1:00 PM EST Office Visit Orthopaedics [facility] [address] [place] [id number] SharerCiara PA-C [address] [place] [address] 07/14/2023 9:20 AM EST Office Visit Dermatology [address] [place] [address] Jessica Williamson PA-C [address] [place] [address] [place] [address] 08/19/2023 11:40 AM EST Office Visit Hepatology, [facility] [address] [place] [address] Latoya Selby DO [address] [place] [address] Health Maintenance Due Date Last Done Comments Hanna's Esophagus Surveilance 1950 Pneumococcal Vaccine: 65+ Years (1 - PCV) 1956 Depression Screening 1962 O2 ASSESSMENT COMPLETED IN PAST YEAR FOR COPD 1968 Cologuard 1995 Fecal Occult Blood Test 1995 Sigmoidoscopy 1995 LUNG CANCER SCREENING - USE SMARTSET 50777 2000 Zoster Vaccines (1 of 2) 2000 [...] eye- Primary Redness or discharge of eye Eye pain, right ESRD on dialysis (HCC) End stage renal disease Ascites due to alcoholic cirrhosis (HCC) documented in this encounter Care Teams Script Editor Relationship Specialty Start Date End Date Maximo Taylor MD [address] [place] [address] [place] [address] PCP - General Family Medicine 05/04/23 documented as of this encounter
--- OUTSIDE RECORDS SUMMARY | 2023-06-18 15:40 | External Medical Summary ---
Author Name Unknown Address Unknown Organization [facility] [address] [place] [address] Laboratory Report Ordering Provider Test Date Status SUSHANT JENKINS 05/24/2023 06:24:00 Final Observation Date Value Abnormality Reference (Units ) Status Nucleated erythrocytes/100 leukocytes [Ratio] in Blood by Automated count 05/24/2023 06:24:00 Final Schistocytes 05/24/2023 06:24:00 Few Abnormal None Seen Final Performing Location [facility] [address] [place] [address]
--- OUTSIDE RECORDS SUMMARY | 2023-06-18 15:40 | External Medical Summary ---
Author Name Unknown Address Unknown Organization [facility] [address] [place] [address] Laboratory Report Ordering Provider Test Date Status SUSHANT JENKINS 05/24/2023 06:24:00 Final Observation Date Value Abnormality Reference (Units ) Status WBC, Total 05/24/2023 06:24:00 5.77 4.00-10.8 0 (K/uL) Final RBC 05/24/2023 06:24:00 3.27 4.50-5.25 (M/uL) Final Hemoglobin 05/24/2023 06:24:00 9.8 Below low normal 14 .0-16.8 (g/dL) Final HCT 05/24/2023 06:24:00 30.9 Below low normal 40. 0-48.4 (%) Final MCV 05/24/2023 06:24:00 94.5 82.0-99.5 (fL) Final MCH 05/24/2023 06:24:00 30.0 27.0-34.0 (pg) Final MCHC 05/24/2023 06:24:00 31.7 32.0-36.0 (g/dL) Final RDW 05/24/2023 06:24:00 14.5 11.5-15.5 (%) Final Platelets 05/24/2023 06:24:00 231 140-400 (K /uL) Final MPV 05/24/2023 06:24:00 9.8 6.6-11.1 ( fL) Final Performing Location [facility] [address] [place] [address]
--- OUTSIDE RECORDS SUMMARY | 2023-06-18 15:41 | External Medical Summary ---
Author Name Unknown Address Unknown Organization [facility] [address] [place] [address] Laboratory Report Ordering Provider Test Date Status SUSHANT JENKINS 05/17/2023 06:10:00 Final Anticoagulation may affect t esting. Refer to [facility] Test Catalog for a list of effects. Observation Date Value Abnormality Reference (Units ) Status aPTT panel - Platelet poor plasma 05/17/2023 06:10:00 33 21-38 (seconds) Final Performing Location [facility] [address] [place] [address]
--- OUTSIDE RECORDS SUMMARY | 2023-06-18 15:41 | External Medical Summary | Summary of Care ---
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* Allergies Active Allergy Reactions Criticality Noted Date Comments Lisinopril 04/09/2023 documented as of this encounter (statuses as of 05/17/2023) Medications Medication Sig Dispensed Refills Start Date [...] cut, crush or chew 0 01/21/2023 Active Hankins Caps 1 MG Oral Capsule Take 1 [...] paracentesis 100 mL 0 04/09/2023 Active PEG 5477-NDi-LyCbf-NaCl- NaSulf 236 GM Oral Solution Reconstituted Take [...] as of this encounter (statuses as of 05/17/2023) Active Problems Problem Noted Date Diagnosed Date [...] as of this encounter (statuses as of 05/17/2023) Immunizations Name Administration Dates Next Due Seasonal [...] Care Team (Late st Contact Info) Description 05/17/2023 8:30 AM EST Laboratory Lab [facility]lebot[facility] [address] [place] [facility] [id number] [place] [address] Arrived 05/25/2023 1:00 PM EST Office Visit Orthopaedics [facility] [address] [place] [address] SharerCiara PA-C [address] [place] [address] 07/14/2023 9:20 AM EST Office Visit Dermatology [address] [place] [address] Jessica Williamson PA-C [address] [place] [address] [place] [phone] 08/19/2023 11:40 AM EST Office Visit Hepatology, [facility] [address] [place] [address] Latoya Selby DO [address] [place] [address] Scheduled Orders Name Type Priority Associated Diagnoses Orde r Schedule APTT Lab Routine 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 (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 Expected: 05/18/2023, Expires: 05/17/2024 CBC WITH WBC DIFFERENTIAL Lab Routine custodial (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 Expected: 05/18/2023, Expires: 05/17/2024 Health Maintenance Due Date Last Done Comments Pneumococcal Vaccine: 65+ Years (1 - PCV) 1956 Depression Screening 1962 O2 ASSESSMENT COMPLETED IN PAST YEAR FOR COPD 1968 Cologuard 1995 Colonoscopy 1995 Colorectal Cancer Screening 1995 Fecal Occult Blood Test 1995 Sigmoidoscopy 1995 LUNG CANCER SCREENING - USE SMARTSET 42487 2000 Zoster Vaccines (1 of 2) 2000 [...] as of this encounter Visit Diagnoses Diagnosis 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
--- OUTSIDE RECORDS SUMMARY | 2023-06-18 15:41 | External Medical Summary ---
Author Name Unknown Address Unknown Organization [facility] [address] [place] [id number] Laboratory Report Ordering Provider Test Date Status SUSHANT JENKINS 05/17/2023 06:10:00 Final Observation Date Value Abnormality Reference (Units ) Status WBC, Total 05/17/2023 06:10:00 6.93 4.00-10.8 0 (K/uL) Final RBC 05/17/2023 06:10:00 3.48 4.50-5.25 (M/uL) Final Hemoglobin 05/17/2023 06:10:00 10.4 Below low normal 14 .0-16.8 (g/dL) Final HCT 05/17/2023 06:10:00 32.8 Below low normal 40. 0-48.4 (%) Final MCV 05/17/2023 06:10:00 94.3 82.0-99.5 (fL) Final MCH 05/17/2023 06:10:00 29.9 27.0-34.0 (pg) Final MCHC 05/17/2023 06:10:00 31.7 32.0-36.0 (g/dL) Final RDW 05/17/2023 06:10:00 15.0 11.5-15.5 (%) Final Platelets 05/17/2023 06:10:00 296 140-400 (K /uL) Final MPV 05/17/2023 06:10:00 9.4 6.6-11.1 ( fL) Final Performing Location LAB[facility]ORY [facility] [address] [place] [address]
--- OUTSIDE RECORDS SUMMARY | 2023-06-18 15:41 | External Medical Summary | Continuity Of Care Document ---
Author Name Unknown Address [address] [place] [address] Organization [facility] ( ) Care Team Providers Care De Ionizer Operator Name Role Phone Maximo Taylor Primary Care Provider [phone] Problems Code Description Start Date End Date Status K56.699 Other intestinal obs truction unspecified as to partial versus complete obstruction 04/30/2023 Acti ve K92.2 Gastrointestinal hemorrhage, unspecified 2022 Active N18.6 End stage renal disease 04/30/2023 A ctive D64.9 Anemia, unspecified 04/30/2023 Activ e R74.8 Abnormal levels of other serum enzymes 04/30/20 Active R07.9 Chest pain, unspecified 04/30/2023 A ctive I10. 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 12/2022 Active F43.10 Post-traumatic stress disorder, unspecified 12/2022 Active [...] E55.9 Vitamin D deficiency, unspecified 12/10/2022 Active M25.532 Pain in left wrist 04/20/2023 Active R26.81 Unsteadiness on feet 12/16/2022 Acti ve R48.8 Other symbolic dysfunctions 12/16/2022 00 Active R13.11 Dysphagia, oral phase 12/16/2022 Act magdi M62.81 Muscle weakness (generalized) 12/16/2022 Active Z74.1 Need for assistance with personal care 12/17/19 23 Active R26.89 Other abnormalities of gait and mobility 2022 Active R53.1 Weakness 12/16/2022 Active K56.609 Unspecified intestin al obstruction, unspecified as to partial versus complete obstruction 04/30/2023 Active U07.1 COVID-19 02/25/2023 Active R26.9 Unspecified abnormalities of gait and mobility 12/10/2022 Active VITAL SIGNS Date Time Diastolic blood pressure Systolic blood pressure Body height Body weight Temperature SpO2 Blood Sugar Pulse Respirations 029 92331 8 166.00 [place] [address] 101 73845 9 168.00 NI 76519 102 01509 5 169.00 NI 52430 102 81284 1 169.00 NI 21918 105 09575 0 169.60 NI 68604 110 85536 2 61.00 mm[Hg] - Sitting 121.00 mm[Hg] - Sitting 160.60 NI 97.30 Oral 93.00 % 18.00/min 111 26112 8 160.60 NI 30968 111 76078 8 69.00 mm[Hg] - Sitting 118.00 mm[Hg] - Sitting 97.80 Ear 96.00 % 87.00/ min 37155 111 76904 2 73.00 mm[Hg] - Sitting 138.00 mm[Hg] - Sitting 97.10 Ear 90.00 % 89.00/ min 69481 112 71230 1 78.00 mm[Hg] - Sitting 145.00 mm[Hg] - Sitting 96.80 Ear 91.00 % 92.00/ min 16316 112 31155 1 59.00 mm[Hg] - Sitting 119.00 mm[Hg] - Sitting 98.30 Oral 93.00 % 80.00/ min 57104 112 95962 0 71.00 mm[Hg] - Sitting 120.00 mm[Hg] - Sitting 98.50 Oral 92.00 % 81.00/ min 01549 113 38047 9 63.00 mm[Hg] - Sitting 102.00 mm[Hg] - Sitting 97.70 Ear 90.00 % 82.00/ min 23288 113 42566 0 64.00 mm[Hg] - Sitting 136.00 mm[Hg] - Sitting 97.70 Ear 94.00 % 77.00/ min 36038 113 27397 2 66.00 mm[Hg] - Sitting 105.00 mm[Hg] - Sitting 97.50 Ear 93.00 % 79.00/ min 98642 114 01182 8 58.00 mm[Hg] - Sitting 98.00 mm[Hg] - Sitting 98.40 Oral 94.00 % 81.00/ min 23858 115 61790 3 65.00 mm[Hg] - Sitting 105.00 mm[Hg] - Sitting 98.80 Ear 91.00 % 85.00/ min 73888 115 72433 1 62.00 mm[Hg] - Sitting 117.00 mm[Hg] - Sitting 97.80 Ear 91.00 % 88.00/ min 11014 116 40008 0 66.00 mm[Hg] - Sitting 114.00 mm[Hg] - Sitting 98.40 Ear 93.00 % 83.00/ min 64739 117 56835 3 70.00 mm[Hg] - Sitting 136.00 mm[Hg] - Sitting 173.80 NI 97.80 Ear 93.00 % 18.00/min 43783 117 99356 0 65.00 mm[Hg] - Sitting 121.00 mm[Hg] - Sitting 98.30 Oral 95.00 % 85.00/ min 57918 118 58882 2 65.00 mm[Hg] - Sitting 113.00 mm[Hg] - Sitting 98.00 Ear 90.00 % 84.00/ min 24382 119 29108 1 174.80 [place] [address]171 119 57800 1 70.00 mm[Hg] - Sitting 143.00 mm[Hg] - Sitting 98.20 Ear 90.00 % 77.00/ min 32337 120 05950 0 78.00 mm[Hg] - Sitting 148.00 mm[Hg] - Sitting 98.70 Ear 96.00 % 96.00/ min 120 12349 0 69.00 mm[Hg] - Sitting 102.00 mm[Hg] - Sitting 97.20 Oral 93.00 % 76.00/ min 67351 121 08654 1 68.00 mm[Hg] - Sitting 114.00 mm[Hg] - Sitting 98.10 Ear 94.00 % 74.00/ min 82323 121 65521 5 68.00 mm[Hg] - Sitting 120.00 mm[Hg] - Sitting 98.60 Ear 93.00 % 84.00/ min 75204 122 88925 7 69.00 mm[Hg] - Sitting 109.00 mm[Hg] - Sitting 97.70 Oral 91.00 % 75.00/ min 10570 123 28594 6 71.00 mm[Hg] - Sitting 149.00 mm[Hg] - Sitting 96.80 Ear 92.00 % 79.00/ min 123 68762 4 175.00 NI 123 82862 1 71.00 mm[Hg] - Sitting 149.00 mm[Hg] - Sitting 175.00 NI 96.80 Ear 79.00/ min 124 38309 8 60.00 mm[Hg] - Sitting 107.00 mm[Hg] - Sitting 98.00 Oral 93.00 % 83.00/ min 124 26819 1 60.00 mm[Hg] - Sitting 107.00 mm[Hg] - Sitting 98.90 Ear 93.00 % 83.00/ min 125 65795 0 58.00 mm[Hg] - Sitting 92.00 mm[Hg] - Sitting 98.90 Ear 93.00 % 82.00/ min 126 18813 0 72.00 mm[Hg] - Sitting 149.00 mm[Hg] - Sitting 97.20 Ear 90.00 % 85.00/ min 126 70159 3 57.00 mm[Hg] - Sitting 109.00 mm[Hg] - Sitting 96.60 Oral 90.00 % 78.00/ min Immunizations Vaccine Date Status COVID-19 09/11/2020 Completed COVID-19 10/08/2020 Completed COVID-19 12/16/2022 Completed Influenza 03/21/2022 Completed Influenza 04/02/2023 Completed (PCV13)Pneumococcal 04/19/2017 Completed (PPSV23)Pneumococcal 02/08/2019 Completed Shingles 10/02/2021 Completed Tetanus 04/07/2011 Completed H1N1 08/07/2009 Completed Shingles 2 04/10/2022 Completed
--- OUTSIDE RECORDS SUMMARY | 2023-06-18 15:41 | External Medical Summary ---
Author Name Unknown Address Unknown Organization [facility] [address] [place] [address] Laboratory Report Ordering Provider Test Date Status SUSHANT JENKINS 05/17/2023 06:10:00 Final Observation Date Value Abnormality Reference (Units ) Status SYNC LEUKOCYTES IN BLOOD BY AUTOMATED COUNT 05/17/2023 06:10:00 6.93 4.00-10.80 (K/uL) Final Segs 05/17/2023 06:10:00 69.4 40.0-75.0 (%) Final Lymphs % 05/17/2023 06:10:00 8.7 Below low normal 18.0-42.0 (%) Final Monos 05/17/2023 06:10:00 18.3 Above high normal 1.0-11.0 (%) Final Eosinophils 05/17/2023 06:10:00 3.0 0.0-6.0 (%) Final Basos 05/17/2023 06:10:00 0.6 0.0-2.0 (%) Final Absolute Segs 05/17/2023 06:10:00 4.81 1.80-7.70 (K/uL) Final Lymphs, absolute 05/17/2023 06:10:00 0.60 Below low normal 1.00-4.80 (K/ul) Final Monos, Abs 05/17/2023 06:10:00 1.27 Above high normal 0.00-1.10 (K/uL) Final Eos, Abs 05/17/2023 06:10:00 0.21 0.00-0.70 (K/uL) Final Basos, Abs 05/17/2023 06:10:00 0.04 0.00-0.20 (K/uL) Final Performing Location LAB[facility]ATORY [facility] [[email or web address]] [facility] [address] [place] [address]
--- OUTSIDE RECORDS SUMMARY | 2023-06-18 15:41 | External Medical Summary | Continuity of Care Document ---
Author Name Unknown Organization [facility] [address] [place] [id number] Care Team Providers Care Wood Tile Installer Name Role Phone Maximo Taylor Primary Care Physician [phone] Encounter [facility] [id number] Date(s): 05/20/23 - 05/20/23 [facility] [address] [place] [id number] Discharge Disposition: Home or Self Care Attending Physician: MD Gauri, Quinn Rubio Referring Physician: MD Mayo Matthew T Allergies, Adverse Reactions, Alerts Substance Reaction Severity Status lisinopril coughing Active Medications albuterol 0.083% for nebulization Start: 07/28/22 12:24:00 EST Start Date: 07/28/22 Status: Ordered amiodarone Start: 07/28/22 11:49:00 EST Start Date: 07/28/22 Status: Ordered calcitriol 0.5 mcg oral capsule Start: 07/28/22 12:41:00 EST Start Date: 07/28/22 Status: Ordered cetirizine Start: 07/28/22 12:24:00 EST Start Date: 07/28/22 Status: Ordered Colace Start: 07/28/22 12:42:00 EST Start Date: 07/28/22 Status: Ordered diphenhydrAMINE Start: 07/28/22 12:43:00 EST Start Date: 07/28/22 Status: Ordered Dulcolax Laxative 5 mg oral delayed release tablet Start: 05/13/23 10:46:00 EST, 4 tab, PO, ONCE, Disp# 4 tab, Refills: 0, PRN: as needed for constipation, Pharmacy: [facility]/pharmacy #[id number] Start Date: 05/13/23 Status: Ordered ferric citrate Start: 07/28/22 12:43:00 EST Start Date: 07/28/22 Status: Ordered gabapentin Start: 07/28/22 12:42:00 EST Start Date: 07/28/22 Status: Ordered GoLYTELY oral powder for reconstitution Start: 07/28/22 16:00:00 EST, See Instructions, Disp# 1 kit, Refills: 0, use as directed prior to procedure, Pharmacy: [id number] Start Date: 07/28/22 Status: Ordered metoprolol succinate (ER) Start: 07/28/22 12:41:00 EST Start Date: 07/28/22 Status: Ordered MiraLax oral powder for reconstitution Start: 05/13/23 10:46:00 EST, See Instructions, Disp# 255 g, Refills: 0, take as directed, Pharmacy: [facility]/pharmacy #[id number] Start Date: 05/13/23 Status: Ordered Mucinex Start: 07/28/22 12:43:00 EST Start Date: 07/28/22 Status: Ordered polyethylene glycol 3350 Start: 07/28/22 12:42:00 EST Start Date: 07/28/22 Status: Ordered Sensipar Start: 07/28/22 12:42:00 EST Start Date: 07/28/22 Status: Ordered Stiolto Respimat 10 ACT Start: 07/28/22 12:41:00 EST Start Date: 07/28/22 Status: Ordered Vital Signs Most recent to oldest [Reference Range]: 1 Patient Weight 72.0 kg (05/20/23 2:58 PM) Temperature [36.5-37.9 DegC] 36.7 DegC (05/20/23 2:58 PM) Heart Rate 74 bpm (05/20/23 2:58 PM) Respiratory Rate 12 br/min (05/20/23 2:58 PM) Blood Pressure 115/64mmHg (05/20/23 2:58 PM) Cuff Pulse Pressure 51 mmHg (05/20/23 2:58 PM) Social History Social History Type Response Smoking Status Unknown if ever smok ed Sex Female Endoscopy study * MD Astorga Charles E: VERIFY, PERFORM Event Display: Endoscopy Authored Date: [id number] Please click on link to see image. * MD Astorga Charles E: VERIFY, PERFORM Event Display: Endoscopy Authored Date: [id number] Please click on link to see image. Patient Care team information Care Team Personnel Name: MD Taylor Doriann L Position: Referring DIRECT Member Role: Primary Care Provider Address: Address: [address] [place] [id number] [place] Name: MACKENZIE Ellis Lynn Position: Physician Rigger Supervisor Exempt - Vasc Surg Member Role: Lifetime Relationship Address: Address: [address] [place] [address] [place] Name: Killian Forde Position: HIS Supervisor_P Member Role: HIS Lifetime Care Team Related Persons Name: DARION HDEZ Address: home [address] [place] [phone]
--- OUTSIDE RECORDS SUMMARY | 2023-06-18 15:41 | External Medical Summary | Summary of Care ---
Author Name Unknown Organization [facility] Address [address] [facility] [place] [address] Phone [phone] Care Team Providers Care Chief 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 Name Role Phone Maximo Taylor MD Primary Care Provide r Encounter Details Date Type Department Care Team (Late st Contact Info) Description 05/19/2023 Orders Only Gastroenterology, [facility] [address] [place] [address] Latoya Selby DO [address] [place] [address] Allergies Active Allergy Reactions Criticality Noted Date Comments Lisinopril 04/09/2023 documented as of this encounter (statuses as of 05/19/2023) Medications Medication Sig Dispensed Refills Start Date [...] cut, crush or chew 0 01/21/2023 Active [place] Caps 1 MG Oral Capsule Take 1 [...] paracentesis 100 mL 0 04/09/2023 Active PEG 4474-POg-TrAdr-NaCl- NaSulf 236 GM Oral Solution Reconstituted Take [...] as of this encounter (statuses as of 05/19/2023) Active Problems Problem Noted Date Diagnosed Date [...] as of this encounter (statuses as of 05/19/2023) Immunizations Name Administration Dates Next Due Seasonal [...] 05/25/2023 1:00 PM EST Office Visit Orthopaedics [facility] [address] [place] [address] Sharer, Ciara Crandall PA-C [address] [place] [address] 07/14/2023 9:20 AM EST Office Visit Dermatology [address] [place] [address] Jessica Williamson PA-C [address] [place] [address] [place] [address] 08/19/2023 11:40 AM EST Office Visit Hepatology, [facility] [address] [place] [address] Latoya Selby DO [address] [place] [address] Health Maintenance Due Date Last Done Comments Pneumococcal Vaccine: 65+ Years (1 - PCV) 1956 Depression Screening 1962 O2 ASSESSMENT COMPLETED IN PAST YEAR FOR COPD 1968 Cologuard 1995 Colonoscopy 1995 Colorectal Cancer Screening 1995 Fecal Occult Blood Test 1995 Sigmoidoscopy 1995 LUNG CANCER SCREENING - USE SMARTSET 12643 2000 Zoster Vaccines (1 of 2) 2000 [...] Priority Date/Time Associated Diagnosis Comments CHEMISTRY-OUTSIDE Routine 05/18/2023 documented in this encounter Results * (ABNORMAL) CHEMISTRY-OUTSIDE (05/18/2023) Not all results display below - see scan for full detail OUTSIDE LAB (SEE SCANNED REPORT) Comment:SCAN INCLUDES: PT/IN R, PTT, CBCD CREATININE-OUTSID E LAB OUTSIDE LAB (SEE [...] LAB OUTSIDE LAB (SEE SCANNED REPORT) HEMOGLOBIN, C3H-MYSFUQY LAB OUTSIDE LAB (SEE SCANNED REPORT) PHOSPHORUS-OUTSID E LAB OUTSIDE LAB (SEE SCANNED REPORT) PTH-OUTSIDE LAB OUTS VERONICA LAB (SEE SCANNED REPORT) MICROALBUMIN RATIO-OUTSIDE LAB OUTSIDE LA B (SEE SCANNED REPORT) PROTEIN, UA-OUTSIDE LAB OUTSIDE LAB (SEE SCANNED REPORT) HEMOGLOBIN-OUTSID E LAB 10.4(A) 14.0 - 18.0 G/DL OUTSIDE LAB (SEE SCANNED REPORT) 05/18/2023 Latoya Selby DO LABORATORY OUTSIDE LAB (SEE SCANNED REPORT) documented in this encounter Care Teams Chief 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 Relationship Specialty Start Date End Date Maximo Taylor MD [address] [place], [place] [address] [id number] PCP - General Family Medicine 05/04/23 documented as of this encounter
--- OUTSIDE RECORDS SUMMARY | 2023-06-18 15:41 | External Medical Summary | Summary of Care ---
Author Name Unknown Organization [facility] Address [address] [facility] [place] [address] Phone [phone] Care Team Providers Care Lion Tamer Name Role Phone Maximo Taylor MD Primary Care Provide r Encounter Details Date Type Department Care Team (Late st Contact Info) Description 05/18/2023 Result Scan Unspecified Department Latoya Selby DO [address] [place] [address] <No scans attached> Allergies Active Allergy Reactions [...] paracentesis 100 mL 0 04/09/2023 Active PEG 4801-OMa-ZxUjr-NaCl- NaSulf 236 GM Oral Solution Reconstituted Take [...] 05/25/2023 1:00 PM EST Office Visit Orthopaedics [facility] [address] [place] [address] Sharer, Ciara Crandall PA-C [address] [place] [address] 07/14/2023 9:20 AM EST Office Visit Dermatology [address] [place] [address] Jessica Williamson PA-C [address] [place] [address] [place] [address] 08/19/2023 11:40 AM EST Office Visit Hepatology, [facility] [address] [place] [address] Bal Latoya Green, [address] [place] [address] Health Maintenance Due Date Last Done Comments Pneumococcal Vaccine: 65+ Years (1 - PCV) 1956 Depression Screening 1962 O2 ASSESSMENT COMPLETED IN PAST YEAR FOR COPD 1968 Cologuard 1995 Colonoscopy 1995 Colorectal Cancer Screening 1995 Fecal Occult Blood Test 1995 Sigmoidoscopy 1995 LUNG CANCER SCREENING - USE SMARTSET [address] 2000 Zoster Vaccines (1 of 2) 2000 [...] Date/Time Associated Diagnosis Comments RADIOLOGY SCANNED RESULT 05/18/2023 documented in this encounter Results * RADIOLOGY SCANNED RESULT (05/18/2023) 05/18/2023 Latoya Selby DO DI[facility]NOSTIC RAD [facility] documented in this encounter Care Teams Lion Tamer Relationship Specialty Start Date End Date Maximo Taylor MD [address] [facility] [address] PCP - General Family Medicine 05/04/23 documented as of this encounter
--- OUTSIDE RECORDS SUMMARY | 2023-06-18 15:41 | External Medical Summary | Continuity Of Care Document ---
Author Name Unknown Address [address] [place] [address] Organization [facility] ( ) Care Team Providers Care Independent Contractor Name Role Phone Maximo Taylor Primary Care Provider [phone] Problems Code Description Start Date End Date [...] Temperature SpO2 Blood Sugar Pulse Respirations 029 92720 8 [place]00 [place] [address] 101 88333 9 168.00 [place] 11711 102 24585 5 169.00 NI 09327 102 86142 1 169.00 NI 35037 105 76226 0 169.60 NI [address]603 110 87163 2 61.00 mm[Hg] - Sitting 121.00 mm[Hg] - Sitting 160.60 NI 97.30 Oral 93.00 % 18.00/min 111 30337 8 160.60 NI [address] 111 42636 8 69.00 mm[Hg] - Sitting 118.00 mm[Hg] - Sitting 97.80 Ear 96.00 % 87.00/ min 68959 111 27602 2 73.00 mm[Hg] - Sitting 138.00 mm[Hg] - Sitting 97.10 Ear 90.00 % 89.00/ min 43396 112 90369 1 78.00 mm[Hg] - Sitting 145.00 mm[Hg] - Sitting 96.80 Ear 91.00 % 92.00/ min 96188 112 31459 1 59.00 mm[Hg] - Sitting 119.00 mm[Hg] - Sitting 98.30 Oral 93.00 % 80.00/ min 81880 112 87627 0 71.00 mm[Hg] - Sitting 120.00 mm[Hg] - Sitting 98.50 Oral 92.00 % 81.00/ min 08870 113 36574 9 63.00 mm[Hg] - Sitting 102.00 mm[Hg] - Sitting 97.70 Ear 90.00 % 82.00/ min 74118 113 32259 0 64.00 mm[Hg] - Sitting 136.00 mm[Hg] - Sitting 97.70 Ear 94.00 % 77.00/ min 97218 113 97147 2 66.00 mm[Hg] - Sitting 105.00 mm[Hg] - Sitting 97.50 Ear 93.00 % 79.00/ min 79597 114 59197 8 58.00 mm[Hg] - Sitting 98.00 mm[Hg] - Sitting 98.40 Oral 94.00 % 81.00/ min 82914 115 86915 3 65.00 mm[Hg] - Sitting 105.00 mm[Hg] - Sitting 98.80 Ear 91.00 % 85.00/ min 91059 115 69261 1 62.00 mm[Hg] - Sitting 117.00 mm[Hg] - Sitting 97.80 Ear 91.00 % 88.00/ min 01819 116 55083 0 66.00 mm[Hg] - Sitting 114.00 mm[Hg] - Sitting 98.40 Ear 93.00 % 83.00/ min 61805 117 39067 3 70.00 mm[Hg] - Sitting 136.00 mm[Hg] - Sitting 173.80 NI 97.80 Ear 93.00 % 18.00/min 61213 117 25595 0 65.00 mm[Hg] - Sitting 121.00 mm[Hg] - Sitting 98.30 Oral 95.00 % 85.00/ min 84414 118 71297 2 65.00 mm[Hg] - Sitting 113.00 mm[Hg] - Sitting 98.00 Ear 90.00 % 84.00/ min 88718 119 56708 1 174[place]80 [place] [address] 119 46726 1 70.00 mm[Hg] - Sitting 143.00 mm[Hg] - Sitting 98.20 Ear 90.00 % 77.00/ min 89964 120 83067 0 78.00 mm[Hg] - Sitting 148.00 mm[Hg] - Sitting 98.70 Ear 96.00 % 96.00/ min 120 84043 0 69.00 mm[Hg] - Sitting 102.00 mm[Hg] - Sitting 97.20 Oral 93.00 % 76.00/ min 87207 121 95200 1 68.00 mm[Hg] - Sitting 114.00 mm[Hg] - Sitting 98.10 Ear 94.00 % 74.00/ min 81339 121 66142 5 68.00 mm[Hg] - Sitting 120.00 mm[Hg] - Sitting 98.60 Ear 93.00 % 84.00/ min 13469 122 28724 7 69.00 mm[Hg] - Sitting 109.00 mm[Hg] - Sitting 97.70 Oral 91.00 % 75.00/ min 55085 123 63302 6 71.00 mm[Hg] - Sitting 149.00 mm[Hg] - Sitting 96.80 Ear 92.00 % 79.00/ min 123 86627 4 175.00 NI 123 96991 1 71.00 mm[Hg] - Sitting 149.00 mm[Hg] - Sitting 175.00 NI 96.80 Ear 79.00/ min 124 94726 8 60.00 mm[Hg] - Sitting 107.00 mm[Hg] - Sitting 98.00 Oral 93.00 % 83.00/ min 124 03850 1 60.00 mm[Hg] - Sitting 107.00 mm[Hg] - Sitting 98.90 Ear 93.00 % 83.00/ min 125 70081 0 58.00 mm[Hg] - Sitting 92.00 mm[Hg] - Sitting 98.90 Ear 93.00 % 82.00/ min 126 05526 0 72.00 mm[Hg] - Sitting 149.00 mm[Hg] - Sitting 97.20 Ear 90.00 % 85.00/ min 126 61185 3 57.00 mm[Hg] - Sitting 109.00 mm[Hg] - Sitting 96.60 Oral 90.00 % 78.00/ min Immunizations Vaccine Date Status COVID-19 09/11/2020 Completed COVID-19 10/08/2020 Completed COVID-19 12/16/2022 Completed Influenza 03/21/2022 Completed Influenza 04/02/2023 Completed (PCV13)Pneumococcal 04/19/2017 Completed (PPSV23)Pneumococcal 02/08/2019 Completed Shingles 10/02/2021 Completed Tetanus 04/07/2011 Completed H1N1 08/07/2009 Completed Shingles 2 04/10/2022 Completed
--- OUTSIDE RECORDS SUMMARY | 2023-06-18 15:42 | External Medical Summary ---
Author Name Unknown Address Unknown Organization [facility]ORY [facility] [address] [place] [id number] Laboratory Report Ordering Provider Test Date Status SUSHANT JENKINS 05/10/2023 06:07:00 Final Observation Date Value Abnormality Reference (Units ) Status WBC, Total 05/10/2023 06:07:00 6.07 4.00-10.8 0 (K/uL) Final RBC 05/10/2023 06:07:00 3.20 4.50-5.25 (M/uL) Final Hemoglobin 05/10/2023 06:07:00 9.7 Below low normal 14 .0-16.8 (g/dL) Final HCT 05/10/2023 06:07:00 30.6 Below low normal 40. 0-48.4 (%) Final MCV 05/10/2023 06:07:00 95.6 82.0-99.5 (fL) Final MCH 05/10/2023 06:07:00 30.3 27.0-34.0 (pg) Final MCHC 05/10/2023 06:07:00 31.7 32.0-36.0 (g/dL) Final RDW 05/10/2023 06:07:00 14.9 11.5-15.5 (%) Final Platelets 05/10/2023 06:07:00 341 140-400 (K /uL) Final MPV 05/10/2023 06:07:00 9.5 6.6-11.1 ( fL) Final Performing Location [facility] [address] [place] [id number]
--- OUTSIDE RECORDS SUMMARY | 2023-06-18 15:42 | External Medical Summary ---
Author Name Unknown Address Unknown Organization [facility]OR[facility]ORY [facility] [address] [place] [id number] Laboratory Report Ordering Provider Test Date Status SUSHANT JENKINS 05/10/2023 06:07:00 Final Anticoagulation may affect t esting. Refer to [facility] Test Catalog for a list of effects. Observation Date Value Abnormality Reference (Units ) Status aPTT panel - Platelet poor plasma 05/10/2023 06:07:00 30 21-38 (seconds) Final Performing Location LABORATORY [facility] [address] [place] [id number]
--- OUTSIDE RECORDS SUMMARY | 2023-06-18 15:42 | External Medical Summary | Summary of Care ---
Author Name Unknown Organization [facility] Address [address] [place] [address] Phone [phone] Care Team Providers Care Supervisor Billposting Name Role Phone Maximo Taylor MD Primary Care Provide r Reason for Visit * Reason Onset Date Comments Skilled Visit 05/11/2023 Encounter Details Date Type Department Care Team (Latest Contact Info) Description 05/10/2023 1:30 PM [facility] Intermediate Visit [facility] [address] [place] [address] Brianna Orozco PA-C [address] [place] [address] Ascites due to alcoholic cirrhosis (HCC)*; ESRD on dialysis (HCC); COPD, moderate (HCC); 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 behavioral disturbance, psychotic disturbance, mood disturbance, or anxiety (HCC); Advanced directives, counseling/discussio n Allergies Active Allergy Reactions Criticality Noted Date Comments Lisinopril 04/09/2023 documented as of this encounter (statuses as of 05/11/2023) Medications Medication Sig Dispensed Refills Start Date [...] cut, crush or chew 0 01/21/2023 Active [place] Caps 1 MG Oral Capsule Take 1 [...] paracentesis 100 mL 0 04/09/2023 Active PEG 2952-TKp-DwGpb-NaC l-NaSulf 236 GM Oral Solution Reconstituted Take according to coloscopy prep instructions. 4000 mL 0 04/09/2023 Active hydrOXYzine HCl 10 MG Oral Tablet (Atarax) Take 1 Tablet by mouth every 4 hours as needed for Itching. 0 04/27/2023 Active Furosemide 40 MG Oral Tablet (Lasix) Take 1 Tablet by mouth in the morning. 0 05/11/2023 Active amLODIPine Besylate 2.5 MG Oral Tablet (Norvasc) Take 1 Tablet by mouth in the morning. 0 01/21/2023 3 Discontinue d(Medicatio n List Clean Up) documented as of this encounter (statuses as of 05/11/2023) Active Problems Problem Noted Date Diagnosed Date [...] as of this encounter (statuses as of 05/11/2023) Immunizations Name Administration Dates Next Due Seasonal [...] 05/25/2023 1:00 PM EST Office Visit Orthopaedics [facility] [address] [place] [address] Ciara Major PA-C [address] [place] [address] 07/14/2023 9:20 AM EST Office Visit Dermatology [address] [place] [address] Jessica Williamson PA-C [address] [place] [address] [place] [address] 08/19/2023 11:40 AM EST Office Visit Hepatology, [facility] [address] [place] [address] Latoya Selby DO [address] [place] [address] Health Maintenance Due Date Last Done Comments Pneumococcal Vaccine: 65+ Years (1 - PCV) 1956 Depression Screening 1962 O2 ASSESSMENT COMPLETED IN PAST YEAR FOR COPD 1968 Cologuard 1995 Colonoscopy 1995 Colorectal Cancer Screening 1995 Fecal Occult Blood Test 1995 Sigmoidoscopy 1995 LUNG CANCER SCREENING - USE SMARTSET [address]3970 2000 Zoster Vaccines (1 of 2) 2000 [...] (HCC) Chronic airway obstruction, not elsewhere classified 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 behavioral disturbance, psychotic disturbance, mood disturbance, or anxiety (HCC) Advanced directives, counseling/discussion Other specified counseling documented in this encounter Care Teams Supervisor Billposting Relationship Specialty Start Date End Date Maximo Taylor MD [address] [place] [address] PCP - General Family Medicine 05/04/23 documented as of this encounter
--- OUTSIDE RECORDS SUMMARY | 2023-06-18 15:42 | External Medical Summary | Continuity Of Care Document ---
Author Name Unknown Address [address] [place] [address] Organization [facility] ( ) Care Team Providers Care Framing Specialist Name Role Phone Maximo Taylor Primary Care Provider [phone] Problems Code Description Start Date End Date [...] weight Temperature SpO2 Blood Sugar Pulse Respirations 023 10298 6 178[place]00 [place] [address] 025 84598 9 69.00 mm[Hg] - Sitting 168.00 mm[Hg] - Sitting 177.00 NI 97.80 Ear 94.00 % 18.00/min 026 24065 2 17252 026 32804 2 160.00 NI 026 10894 1 160.00 NI 027 99571 0 160.00 NI 029 70098 8 166.00 NI 30388 101 79571 9 168.00 NI 56774 102 47860 5 169.00 NI 58336 102 13385 1 169.00 NI 81981 105 25295 0 169.60 NI 21574 110 16157 2 61.00 mm[Hg] - Sitting 121.00 mm[Hg] - Sitting 160.60 NI 97.30 Oral 93.00 % 18.00/min 88914 111 27206 8 160.60 NI [address]6878 111 99454 8 69.00 mm[Hg] - Sitting 118.00 mm[Hg] - Sitting 97.80 Ear 96.00 % 87.00/ min 80431 111 49488 2 73.00 mm[Hg] - Sitting 138.00 mm[Hg] - Sitting 97.10 Ear 90.00 % 89.00/ min 00996 112 63453 1 78.00 mm[Hg] - Sitting 145.00 mm[Hg] - Sitting 96.80 Ear 91.00 % 92.00/ min 33917 112 66525 1 59.00 mm[Hg] - Sitting 119.00 mm[Hg] - Sitting 98.30 Oral 93.00 % 80.00/ min 71893 112 84847 0 71.00 mm[Hg] - Sitting 120.00 mm[Hg] - Sitting 98.50 Oral 92.00 % 81.00/ min 113 00045 9 63.00 mm[Hg] - Sitting 102.00 mm[Hg] - Sitting 97.70 Ear 90.00 % 82.00/ min 113 03649 0 64.00 mm[Hg] - Sitting 136.00 mm[Hg] - Sitting 97.70 Ear 94.00 % 77.00/ min 113 57790 2 66.00 mm[Hg] - Sitting 105.00 mm[Hg] - Sitting 97.50 Ear 93.00 % 79.00/ min 114 53693 8 58.00 mm[Hg] - Sitting 98.00 mm[Hg] - Sitting 98.40 Oral 94.00 % 81.00/ min 115 66937 3 65.00 mm[Hg] - Sitting 105.00 mm[Hg] - Sitting 98.80 Ear 91.00 % 85.00/ min 115 37086 1 62.00 mm[Hg] - Sitting 117.00 mm[Hg] - Sitting 97.80 Ear 91.00 % 88.00/ min 116 23016 0 66.00 mm[Hg] - Sitting 114.00 mm[Hg] - Sitting 98.40 Ear 93.00 % 83.00/ min 117 62205 3 70.00 mm[Hg] - Sitting 136.00 mm[Hg] - Sitting 173.80 NI 97.80 Ear 93.00 % 18.00/min 117 38439 0 65.00 mm[Hg] - Sitting 121.00 mm[Hg] - Sitting 98.30 Oral 95.00 % 85.00/ min 118 44645 2 65.00 mm[Hg] - Sitting 113.00 mm[Hg] - Sitting 98.00 Ear 90.00 % 84.00/ min 119 45522 1 174[place]80 [place] [address] 119 03506 1 70.00 mm[Hg] - Sitting 143.00 mm[Hg] - Sitting 98.20 Ear 90.00 % 77.00/ min 23001 120 34477 0 78.00 mm[Hg] - Sitting 148.00 mm[Hg] - Sitting 98.70 Ear 96.00 % 96.00/ min 120 10832 0 69.00 mm[Hg] - Sitting 102.00 mm[Hg] - Sitting 97.20 Oral 93.00 % 76.00/ min Immunizations Vaccine Date Status COVID-19 09/11/2020 Completed COVID-19 10/08/2020 Completed COVID-19 12/16/2022 Completed Influenza 03/21/2022 Completed Influenza 04/02/2023 Completed (PCV13)Pneumococcal 04/19/2017 Completed (PPSV23)Pneumococcal 02/08/2019 Completed Shingles 10/02/2021 Completed Tetanus 04/07/2011 Completed H1N1 08/07/2009 Completed Shingles 2 04/10/2022 Completed
--- OUTSIDE RECORDS SUMMARY | 2023-06-18 15:42 | External Medical Summary ---
Author Name Unknown Address Unknown Organization [facility] - [address] [place] [id number] Laboratory Report Ordering Provider Test Date Status SUSHANT JENKINS 05/10/2023 06:07:00 Final Observation Date Value Abnormality Reference (Units ) Status SYNC LEUKOCYTES IN BLOOD BY AUTOMATED COUNT 05/10/2023 06:07:00 6.07 4.00-10.80 (K/uL) Final Segs 05/10/2023 06:07:00 62.6 40.0-75.0 (%) Final Lymphs % 05/10/2023 06:07:00 17.0 Below low normal 18.0-42.0 (%) Final Monos 05/10/2023 06:07:00 14.5 Above high normal 1.0-11.0 (%) Final Eosinophils 05/10/2023 06:07:00 5.1 0.0-6.0 (%) Final Basos 05/10/2023 06:07:00 0.8 0.0-2.0 (%) Final Absolute Segs 05/10/2023 06:07:00 3.80 1.80-7.70 (K/uL) Final Lymphs, absolute 05/10/2023 06:07:00 1.03 1.00-4.80 (K/ul) Final Monos, Abs 05/10/2023 06:07:00 0.88 0.00-1.10 (K/uL) Final Eos, Abs 05/10/2023 06:07:00 0.31 0.00-0.70 (K/uL) Final Basos, Abs 05/10/2023 06:07:00 0.05 0.00-0.20 (K/uL) Final Performing Location [facility] - [address] [place] [id number]
--- OUTSIDE RECORDS SUMMARY | 2023-06-18 15:42 | External Medical Summary | Continuity Of Care Document ---
Author Name Unknown Address [address] [place] [address] Organization [facility] ( ) Care Team Providers Care Money Room Teller Name Role Phone Maximo Taylor Primary Care Provider [phone] Problems Code Description Start Date End Date [...] weight Temperature SpO2 Blood Sugar Pulse Respirations 027 61239 0 160.00 NI 029 58929 8 166.00 NI 77690 101 40463 9 168.00 NI 102 75758 5 169.00 NI 102 00113 1 169.00 NI 105 82587 0 169.60 NI 87105 110 99805 2 61.00 mm[Hg] - Sitting 121.00 mm[Hg] - Sitting 160.60 NI 97.30 Oral 93.00 % 18.00/min 111 47118 8 160.60 NI 67836 111 50551 8 69.00 mm[Hg] - Sitting 118.00 mm[Hg] - Sitting 97.80 Ear 96.00 % 87.00/ min 111 58361 2 73.00 mm[Hg] - Sitting 138.00 mm[Hg] - Sitting 97.10 Ear 90.00 % 89.00/ min 112 33778 1 78.00 mm[Hg] - Sitting 145.00 mm[Hg] - Sitting 96.80 Ear 91.00 % 92.00/ min 02014 112 35699 1 59.00 mm[Hg] - Sitting 119.00 mm[Hg] - Sitting 98.30 Oral 93.00 % 80.00/ min 76370 112 78162 0 71.00 mm[Hg] - Sitting 120.00 mm[Hg] - Sitting 98.50 Oral 92.00 % 81.00/ min 02614 113 93043 9 63.00 mm[Hg] - Sitting 102.00 mm[Hg] - Sitting 97.70 Ear 90.00 % 82.00/ min 85949 113 54351 0 64.00 mm[Hg] - Sitting 136.00 mm[Hg] - Sitting 97.70 Ear 94.00 % 77.00/ min 03846 113 25790 2 66.00 mm[Hg] - Sitting 105.00 mm[Hg] - Sitting 97.50 Ear 93.00 % 79.00/ min 53025 114 12199 8 58.00 mm[Hg] - Sitting 98.00 mm[Hg] - Sitting 98.40 Oral 94.00 % 81.00/ min 89462 115 21156 3 65.00 mm[Hg] - Sitting 105.00 mm[Hg] - Sitting 98.80 Ear 91.00 % 85.00/ min 86512 115 78075 1 62.00 mm[Hg] - Sitting 117.00 mm[Hg] - Sitting 97.80 Ear 91.00 % 88.00/ min 30210 116 59874 0 66.00 mm[Hg] - Sitting 114.00 mm[Hg] - Sitting 98.40 Ear 93.00 % 83.00/ min 26699 117 29060 3 70.00 mm[Hg] - Sitting 136.00 mm[Hg] - Sitting 173.80 NI 97.80 Ear 93.00 % 18.00/min 18890 117 25710 0 65.00 mm[Hg] - Sitting 121.00 mm[Hg] - Sitting 98.30 Oral 95.00 % 85.00/ min 91635 118 58995 2 65.00 mm[Hg] - Sitting 113.00 mm[Hg] - Sitting 98.00 Ear 90.00 % 84.00/ min 66498 119 39117 1 [place] [address] 119 10443 1 70.00 mm[Hg] - Sitting 143.00 mm[Hg] - Sitting 98.20 Ear 90.00 % 77.00/ min 80252 120 38531 0 78.00 mm[Hg] - Sitting 148.00 mm[Hg] - Sitting 98.70 Ear 96.00 % 96.00/ min 120 67578 0 69.00 mm[Hg] - Sitting 102.00 mm[Hg] - Sitting 97.20 Oral 93.00 % 76.00/ min 32052 121 85481 1 68.00 mm[Hg] - Sitting 114.00 mm[Hg] - Sitting 98.10 Ear 94.00 % 74.00/ min 69562 121 31868 5 68.00 mm[Hg] - Sitting 120.00 mm[Hg] - Sitting 98.60 Ear 93.00 % 84.00/ min 78502 122 86696 7 69.00 mm[Hg] - Sitting 109.00 mm[Hg] - Sitting 97.70 Oral 91.00 % 75.00/ min 123 69221 6 71.00 mm[Hg] - Sitting 149.00 mm[Hg] - Sitting 96.80 Ear 92.00 % 79.00/ min 123 53496 4 175.00 NI 123 10104 1 71.00 mm[Hg] - Sitting 149.00 mm[Hg] - Sitting 175.00 NI 96.80 Ear 79.00/ min 124 81611 8 60.00 mm[Hg] - Sitting 107.00 mm[Hg] - Sitting 98.00 Oral 93.00 % 83.00/ min 124 90809 1 60.00 mm[Hg] - Sitting 107.00 mm[Hg] - Sitting 98.90 Ear 93.00 % 83.00/ min 125 83810 0 58.00 mm[Hg] - Sitting 92.00 mm[Hg] - Sitting 98.90 Ear 93.00 % 82.00/ min 126 59882 0 72.00 mm[Hg] - Sitting 149.00 mm[Hg] - Sitting 97.20 Ear 90.00 % 85.00/ min 126 22051 3 57.00 mm[Hg] - Sitting 109.00 mm[Hg] - Sitting 96.60 Oral 90.00 % 78.00/ min Immunizations Vaccine Date Status COVID-19 09/11/2020 Completed COVID-19 10/08/2020 Completed COVID-19 12/16/2022 Completed Influenza 03/21/2022 Completed Influenza 04/02/2023 Completed (PCV13)Pneumococcal 04/19/2017 Completed (PPSV23)Pneumococcal 02/08/2019 Completed Shingles 10/02/2021 Completed Tetanus 04/07/2011 Completed H1N1 08/07/2009 Completed Shingles 2 04/10/2022 Completed
--- OUTSIDE RECORDS SUMMARY | 2023-06-18 15:42 | External Medical Summary | Continuity Of Care Document ---
Author Name Unknown Address [address] [place] [address] Organization [facility] ( ) Care Team Providers Care Linux Solaris Administrator Name Role Phone Maximo Taylor Primary Care Provider [phone] Problems Code Description Start Date End Date Status K56.609 Unspecified intestin al obstruction, unspecified as to partial versus complete obstruction 04/30/2023 Active K92.2 Gastrointestinal hemorrhage, unspecified 2022 Active N18.6 [...] weight Temperature SpO2 Blood Sugar Pulse Respirations 021 31155 9 76.00 mm[Hg] - Sitting 146.00 mm[Hg] - Sitting 98.00 X-Other 92.00 % 78.00/ min 023 85715 6 178.00 NI 91944 025 81105 9 69.00 mm[Hg] - Sitting 168.00 mm[Hg] - Sitting 177.00 NI 97.80 Ear 94.00 % 18.00/min 026 95093 2 16343 026 20604 2 160.00 NI 026 79421 1 160.00 NI 50907 027 28460 0 160.00 NI 00921 029 07007 8 166.00 NI 21440 101 26162 9 168.00 NI 09878 102 55264 5 169.00 NI 21942 102 40610 1 169.00 NI 80390 105 10488 0 169.60 NI 42881 110 43205 2 61.00 mm[Hg] - Sitting 121.00 mm[Hg] - Sitting 160.60 NI 97.30 Oral 93.00 % 18.00/min 64654 111 72743 8 160.60 NI 12141 111 43775 8 69.00 mm[Hg] - Sitting 118.00 mm[Hg] - Sitting 97.80 Ear 96.00 % 87.00/ min 38796 111 57255 2 73.00 mm[Hg] - Sitting 138.00 mm[Hg] - Sitting 97.10 Ear 90.00 % 89.00/ min 32975 112 66192 1 78.00 mm[Hg] - Sitting 145.00 mm[Hg] - Sitting 96.80 Ear 91.00 % 92.00/ min 45404 112 20030 1 59.00 mm[Hg] - Sitting 119.00 mm[Hg] - Sitting 98.30 Oral 93.00 % 80.00/ min 20121 112 84487 0 71.00 mm[Hg] - Sitting 120.00 mm[Hg] - Sitting 98.50 Oral 92.00 % 81.00/ min 113 83456 9 63.00 mm[Hg] - Sitting 102.00 mm[Hg] - Sitting 97.70 Ear 90.00 % 82.00/ min 113 74046 0 64.00 mm[Hg] - Sitting 136.00 mm[Hg] - Sitting 97.70 Ear 94.00 % 77.00/ min 113 39859 2 66.00 mm[Hg] - Sitting 105.00 mm[Hg] - Sitting 97.50 Ear 93.00 % 79.00/ min 68735 114 70855 8 58.00 mm[Hg] - Sitting 98.00 mm[Hg] - Sitting 98.40 Oral 94.00 % 81.00/ min 115 87466 3 65.00 mm[Hg] - Sitting 105.00 mm[Hg] - Sitting 98.80 Ear 91.00 % 85.00/ min 66652 115 56165 1 62.00 mm[Hg] - Sitting 117.00 mm[Hg] - Sitting 97.80 Ear 91.00 % 88.00/ min 116 63951 0 66.00 mm[Hg] - Sitting 114.00 mm[Hg] - Sitting 98.40 Ear 93.00 % 83.00/ min 117 98520 3 70.00 mm[Hg] - Sitting 136.00 mm[Hg] - Sitting 173.80 NI 97.80 Ear 93.00 % 18.00/min 66184 117 17803 0 65.00 mm[Hg] - Sitting 121.00 mm[Hg] - Sitting 98.30 Oral 95.00 % 85.00/ min 118 94688 2 65.00 mm[Hg] - Sitting 113.00 mm[Hg] - Sitting 98.00 Ear 90.00 % 84.00/ min 119 67512 1 174.80 [place] 90677 119 89239 1 70.00 mm[Hg] - Sitting 143.00 mm[Hg] - Sitting 98.20 Ear 90.00 % 77.00/ min Immunizations Vaccine Date Status COVID-19 09/11/2020 Completed COVID-19 10/08/2020 Completed COVID-19 12/16/2022 Completed Influenza 03/21/2022 Completed Influenza 04/02/2023 Completed (PCV13)Pneumococcal 04/19/2017 Completed (PPSV23)Pneumococcal 02/08/2019 Completed Shingles 10/02/2021 Completed Tetanus 04/07/2011 Completed H1N1 08/07/2009 Completed Shingles 2 04/10/2022 Completed
--- OUTSIDE RECORDS SUMMARY | 2023-06-18 15:42 | External Medical Summary | Continuity Of Care Document ---
Author Name Unknown Address [address] [place] [address] Organization [facility] ( ) Care Team Providers Care Towboat Engineer Name Role Phone Maximo Taylor Primary Care Provider [phone] Problems Code Description Start Date End Date [...] Temperature SpO2 Blood Sugar Pulse Respirations 023 13599 6 178.00 [place] 17248 025 44325 9 69.00 mm[Hg] - Sitting 168.00 mm[Hg] - Sitting 177.00 NI 97.80 Ear 94.00 % 18.00/min 026 04186 2 47562 026 01025 2 160.00 NI 026 77712 1 160.00 NI 027 62935 0 160.00 NI 029 79046 8 166.00 NI 21499 101 30428 9 168.00 NI 87493 102 49436 5 169.00 NI 46362 102 73267 1 169.00 NI 54671 105 98570 0 169.60 NI 59680 110 31041 2 61.00 mm[Hg] - Sitting 121.00 mm[Hg] - Sitting 160.60 NI 97.30 Oral 93.00 % 18.00/min 33067 111 88595 8 160.60 NI 07157 111 74021 8 69.00 mm[Hg] - Sitting 118.00 mm[Hg] - Sitting 97.80 Ear 96.00 % 87.00/ min 93084 111 14251 2 73.00 mm[Hg] - Sitting 138.00 mm[Hg] - Sitting 97.10 Ear 90.00 % 89.00/ min 13807 112 88778 1 78.00 mm[Hg] - Sitting 145.00 mm[Hg] - Sitting 96.80 Ear 91.00 % 92.00/ min 84951 112 34246 1 59.00 mm[Hg] - Sitting 119.00 mm[Hg] - Sitting 98.30 Oral 93.00 % 80.00/ min 24325 112 49398 0 71.00 mm[Hg] - Sitting 120.00 mm[Hg] - Sitting 98.50 Oral 92.00 % 81.00/ min 113 36272 9 63.00 mm[Hg] - Sitting 102.00 mm[Hg] - Sitting 97.70 Ear 90.00 % 82.00/ min 64109 113 94176 0 64.00 mm[Hg] - Sitting 136.00 mm[Hg] - Sitting 97.70 Ear 94.00 % 77.00/ min 19838 113 35865 2 66.00 mm[Hg] - Sitting 105.00 mm[Hg] - Sitting 97.50 Ear 93.00 % 79.00/ min 04300 114 13331 8 58.00 mm[Hg] - Sitting 98.00 mm[Hg] - Sitting 98.40 Oral 94.00 % 81.00/ min 04011 115 31437 3 65.00 mm[Hg] - Sitting 105.00 mm[Hg] - Sitting 98.80 Ear 91.00 % 85.00/ min 61495 115 14377 1 62.00 mm[Hg] - Sitting 117.00 mm[Hg] - Sitting 97.80 Ear 91.00 % 88.00/ min 116 28494 0 66.00 mm[Hg] - Sitting 114.00 mm[Hg] - Sitting 98.40 Ear 93.00 % 83.00/ min 07209 117 18016 3 70.00 mm[Hg] - Sitting 136.00 mm[Hg] - Sitting 173.80 NI 97.80 Ear 93.00 % 18.00/min 117 00321 0 65.00 mm[Hg] - Sitting 121.00 mm[Hg] - Sitting 98.30 Oral 95.00 % 85.00/ min 118 43099 2 65.00 mm[Hg] - Sitting 113.00 mm[Hg] - Sitting 98.00 Ear 90.00 % 84.00/ min 119 50606 1 174.80 NI 02179 119 00235 1 70.00 mm[Hg] - Sitting 143.00 mm[Hg] - Sitting 98.20 Ear 90.00 % 77.00/ min 79727 120 15313 0 78.00 mm[Hg] - Sitting 148.00 mm[Hg] - Sitting 98.70 Ear 96.00 % 96.00/ min 120 74629 0 69.00 mm[Hg] - Sitting 102.00 mm[Hg] - Sitting 97.20 Oral 93.00 % 76.00/ min 121 25438 1 68.00 mm[Hg] - Sitting 114.00 mm[Hg] - Sitting 98.10 Ear 94.00 % 74.00/ min Immunizations Vaccine Date Status COVID-19 09/11/2020 Completed COVID-19 10/08/2020 Completed COVID-19 12/16/2022 Completed Influenza 03/21/2022 Completed Influenza 04/02/2023 Completed (PCV13)Pneumococcal 04/19/2017 Completed (PPSV23)Pneumococcal 02/08/2019 Completed Shingles 10/02/2021 Completed Tetanus 04/07/2011 Completed H1N1 08/07/2009 Completed Shingles 2 04/10/2022 Completed
[2023-06-18] MEDS ORDERED: ALBUT/IPRATROP 3MG/0.5MG NEB 3 ML VIAL NEB PRN (15:51)
[2023-06-18] MEDS ORDERED: THIAMINE HCL 100 MG in SYRINGE 9 ML IV STA (15:54)
[2023-06-18] MEDS ORDERED: PANTOprazole 40 MG in SYRINGE 0 ML IV ONE (16:00)
[2023-06-18] MEDS ORDERED: DAPTOmycin 475 MG in SYRINGE 0 ML IV SCH (16:00)
--- NOTE | 2023-06-18 16:03 | Nephrology Consultation ---
Date of Consultation June 18, 2023 Assessment & Plan (1) ESRD (end stage renal disease) on dialysis: (2) Anemia: (3) Chronic respiratory failure with hypoxia: (4) Anasarca: (5) HTN (hypertension): (6) Cirrhosis of liver: (7) Fall: Plan 72 year-old gentlemen with ESRD secondary to polycystic kidney disease, on HD MWF at [facility]. Admitted with weakness, fall at [place], imaging including CT head was negative. No fracture. Did not have HD today, volume overloaded but electrolyte and respiratory status acceptable. -- As electrolyte acceptable, no respiratory distress, will plan for dialysis tomorrow. Will try 4 L US if tolerated. May need few extra dialysis session to improve volume status -- Recommend scheduling for paracentesis. --Epogen with hemodialysis --left arm nephrology precaution, continue on renal diet, dose medications for GFR less than 10 --continue phosphate binder with meal Will follow Thanks for the consult. History of Present Illness Reason for Consultation: ESKD, on HD, missed HD History of Present Illness Sisi Redmond is a 72-year-old gentlemen with ESRD on HD, hypertension, polycystic kidney disease, cirrhosis of liver, admitted to the hospital with fall at home and generalized weakness. nephrology consult was requested to manage dialysis while inpatient. EMR records including labs and imaging were reviewed in detail during patient's visit. Daughter and granddaughters were at bedside. Sisi was brought to ER after a fall early this morning at the [facility]. He also has been reportedly extremely weak and having trouble getting around at the [facility] although family reports he was doing well just recently when he was at home during Jim. No reported illness, no F/C, SOB, CP. He has been having increasing LE edema and abdominal ascites. Since coming to ER, he has been pretty lethargic. CT head and humerus x-ray was unremarkable, no fracture. Chest x-ray showed mild pulmonary congestion and cardiomegaly. Denied Respiratory distress, O2 sat 97% on 2L NC which he uses all the time. Labs including Hb acceptable. BP and other vitals were acceptable. Has ESRD secondary to polycystic kidney disease, has been on dialysis for last > 4 years.Was on PD but transitioned to HD in January 2023, dialyzes MWF at [facility]. Had HD on Wednesday, EDW 73 Kg but was recently above EDW > 76 kg post HD on 06/16/23. Did not have dialysis today. Has complex past medical history including cirrhosis requiring frequent paracentesis, last paracentesis was done on 06/08/2023, generally gets 6 to 7 L of fluid removed each time. Diagnosis of bladder cancer over last few months s/p Fulguration. 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 During evaluation he denied any symptoms. He was sleeping but arousable and answered questions appropriately. Allergies Allergy/AdvReac Type Severity Reaction Status Date / Time lisinopril AdvReac Intermediate COUGH Verified 06/18/23 15:28 Home Medications Medication Instructions Recorded Confirmed Type tiotropium 2.5 mcg-olodaterol 2.5 2 puff inhalation QAM #4 grams 02/18/21 06/18/23 Rx mcg/actuation mist for inhalation (Stiolto Respimat) polyethylene glycol 3350 17 17 g PO DAILY Constipation 06/30/21 06/18/23 History gram/dose oral powder (Miralax) docusate sodium 100 mg capsule 400 mg PO BID 07/31/21 06/18/23 History (Colace) cinacalcet 30 mg tablet (Sensipar) 30 mg PO QAM 03/27/22 06/18/23 History epinephrine 0.3 mg/0.3 mL 0.3 mg IM Q4H PRN as directed 08/29/22 06/18/23 History injection, auto-injector (EpiPen) ipratropium 0.5 mg-albuterol 3 mg 3 ml inhalation QS PRN Shortness 08/29/22 06/18/23 History (2.5 mg base)/3 mL nebulization Of Breath Or Wheezing soln ferric citrate 210 mg iron tablet 420 mg (2 x 210 mg iron) PO 09/06/22 06/18/23 Rx (Auryxia) TIDWMEAL #1 tab amiodarone 200 mg tablet 200 mg PO QPM 11/17/22 06/18/23 History divalproex 500 mg tablet,delayed 500 mg PO QAM 11/17/22 06/18/23 History release loratadine 10 mg tablet (Wal-itin) 10 mg PO Q2D #0 tabs 12/10/22 06/18/23 Rx acetaminophen 325 mg tablet 650 mg PO Q4 PRN Fever Or Pain 01/05/23 06/18/23 History (Tylenol) cholecalciferol (vitamin D3) 125 5,000 unit PO QPM 01/05/23 06/18/23 History mcg (5,000 unit) capsule thiamine HCl (vitamin B1) 100 mg 100 mg PO QAM 01/05/23 06/18/23 History tablet bisacodyl 5 mg tablet,delayed 5 mg PO DAILY PRN Constipation 02/18/23 06/18/23 History release (Dulcolax (bisacodyl)) guaifenesin 1,200 mg tablet, 1,200 mg PO BID PRN Congestion 02/18/23 06/18/23 History extended release 12 hr (Mucinex) hydroxyzine HCl 10 mg tablet 20 mg PO TID PRN Itching 02/18/23 06/18/23 History tramadol 50 mg tablet 50 mg PO Q6H PRN Pain, Moderate 02/18/23 06/18/23 History trazodone 50 mg tablet 50 mg PO HS 02/18/23 06/18/23 History famotidine 20 mg tablet 20 mg PO DIRECTED 04/27/23 06/18/23 History melatonin 5 mg tablet 15 mg PO HS 04/27/23 06/18/23 History cephalexin 500 mg capsule 500 mg PO TID 06/18/23 06/18/23 History furosemide 40 mg tablet 40 mg PO QAM 06/18/23 06/18/23 History vitamin B complex-vitamin C-folic 1 tab PO DAILY 06/18/23 06/18/23 History acid 0.8 mg tablet ([place]cel[place]) Patient History Medical History (Updated 06/18/23 @ 18:54 by Radha Romo MD) Fall Bladder mass Cirrhosis of liver Ascites Confusion Ruptured middle cerebral artery aneurysm Seizure disorder Myoclonic jerking Bradycardia History of marijuana use daily Hx of atrial flutter 06/2021, hospitalized w/pneumonia for almost 3 weeks; dx atrial flutter- currently amiodarone; f/u dr[place] Paroxysmal atrial flutter Vitamin D deficiency Hypercalcemia Diverticulosis PAF (paroxysmal atrial fibrillation) Gout hx CCPD (continuous cycling peritoneal dialysis) status port in place left abdomen--dialysis daily at home; second port that has been placed for dialysis. Tremor of both hands Alzheimer disease Hypertension On home oxygen therapy 2L N/C at hs Low back pain Hemorrhoids "not currently flared" Benign neoplasm of skin of nose removed once COPD (chronic obstructive pulmonary disease) HTN (hypertension) Anemia Intracranial hemorrhage 2012 Secondary hyperparathyroidism (of renal origin) Benign prostate hyperplasia Polycystic kidney disease, adult type (09/03/12) Surgical History (Updated 05/07/23 @ 00:10 by Baljit Datuan) History of colonoscopy History of tooth extraction all teeth History of cerebral aneurysm repair 2012 [facility] Presby--clip in place; clip IS MRI COMPATIBLE Family History Mother , age 65 of cancer Cancer Father , age 60 from a tree falling on him No problems noted. Other No family history of adverse response to anesthesia Denies family history of Myocardial infarction Social History Smoking Status: Former smoker Tobacco Type: Cigarettes Age Started Using Tobacco: 16; Age Quit Using Tobacco: 71; packs per day: 1; Second Hand Exposure: No; Do You Dip or Chew Tobacco: No; Hx Alcohol Use: No Hx Substance Use: Yes Last Used Substance: Unknown Last Used Substance Other:: last used 2-3 months ago Preferred Language: Mosotho Communication Ability: Effective Communication Ability Comment: pt can sign own consent Ground Operations Supervisor Required: No Beliefs That Will Affect Care: None marital status: Single Current Living Situation: [facility] Current Living Situation Comment: granddaughter and grandson How many Children do You have: 1 Feels Safe at Home: Yes Assistive Devices: Walker Review of Systems Review of Systems: Detail ROS was done and pertinent positives and negatives were mentioned above. Physical Exam Constitutional: WD/WN, vitals as above + ill appearing, + lethargic and + edematous; no acute distress Eyes: + anicteric sclerae Respiratory: no respiratory distress Auscultation: lungs clear to auscultation bilaterally and + rales Cardiovascular: Rate/Rhythm: regular rate and regular rhythm Extremities: + edema (2 + b/l LE edema, left UE 3 + edema), + vascular access device (Left IJ TDC, no erythema, tenderness and drainage.) and + AV fistula (left BC AVF with bruit) Gastrointestinal (Abdomen): Abdomen distended, soft, nontender. Musculoskeletal: Extremities: extremities normal to inspection Neurologic: no focal motor deficits Psychiatric: Orientation: alert and oriented x 3 Affect: euthymic affect Results & Data Vital Signs (Past 12 Hours) Vital Signs Temp Pulse Pulse Resp BP BP Pulse Ox 06/18/23 14:47 73 06/18/23 14:00 75 22 124/70 98 06/18/23 12:15 68 18 135/71 94 06/18/23 10:54 77 20 98 06/18/23 10:54 77 20 157/76 H 98 06/18/23 10:54 37.1 C 77 20 157/76 H 98 06/18/23 10:48 79 O2 Del Method O2 Flow Rate 06/18/23 14:47 06/18/23 14:00 Nasal Cannula 2 06/18/23 12:15 Room Air 06/18/23 10:54 Room Air 06/18/23 10:54 Nasal Cannula 2 06/18/23 10:54 Nasal Cannula 2 06/18/23 10:48 PG Care Time/CCT Total # of Minutes Spent Total Time Spent with Patient: Total time spent is greater than 50% in coordination of care (as documented) at patient's floor/unit and/or counseling patient: Coding Level of Care Code 87864 INT INP/OBS CARE 375MIN Diagnoses ESRD (end stage renal disease) on dialysis N18.6; Z99.2 Anemia N18.6; D63.1; Z99.2 Anemia type: due to chronic kidney disease Chronic kidney disease stage: on chronic dialysis Chronic respiratory failure with hypoxia J96.11 Anasarca R60.1 HTN (hypertension) I10 Hypertension type: unspecified Cirrhosis of liver K74.60 Fall W19.XXXA (2) Anemia Anemia type: due to chronic kidney disease Chronic kidney disease stage: on chronic dialysis Qualified Code(s): N18.6 - End stage renal disease; D63.1 - Anemia in chronic kidney disease; Z99.2 - Dependence on renal dialysis (5) HTN (hypertension) Hypertension type: unspecified Qualified Code(s): I10 - Essential (primary) hypertension
[2023-06-18] MEDS ORDERED: METOPROLOL TARTRATE 1 MG/ML VIAL IV PRN (16:07)
--- NOTE | 2023-06-18 16:12 | History & Physical Report ---
Date of Service June 18, 2023 Assessment & Plan (1) Chronic respiratory failure with hypoxia: (2) ESRD (end stage renal disease) on dialysis: (3) Cirrhosis of liver: (4) HTN (hypertension): (5) Paroxysmal atrial flutter: (6) Anasarca: (7) Seizure disorder: (8) Confusion: Plan Confusion/lethargy/generalized weakness- Family reports patient has had generalized weakness, difficulty getting around at home, with worsening confusion over the past few days. He was unable to get to dialysis this morning. Family did not note any obvious signs of infection Patient will be kept n.p.o. except for essential medications, and if unable to take these medications will try to get IV equivalents CT scan of head, cervical spine shows stable changes Placed on empiric antibiotics x 48 hours, daptomycin IV and cefepime IV for potential urinary process as most likely source of infection Added COVID, flu and RSV testing Admit to telemetry ESRD on HD- Patient gets dialysis Wednesday, Wednesday and Wednesday, but did not get his dialysis date today Wednesday. Consult nephrology, as patient will need to get dialysis today or tomorrow Elevated troponin/paroxysmal atrial fibrillation- Patient usually runs a little high, and is actually on the low end of his high range Continue amiodarone 200 mg p.o. 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 CT shows surgical clips/coils in the left temporal area- Takes divalproex extended release 500 mg every morning Patient is unlikely to be able to take oral dosing will place on IV valproic acid, once levels are back History of Present Illness Chief Complaint: The patient was brought to the emergency department by ambulance, with report by daughter that the patient has been extremely weak, having difficulty getting around in his home, and has had increased swelling in his legs, arms and face, and did not make it to dialysis this morning Primary Care Provider: Maximo Taylor MD The patient is not able to contribute to HPI or ROS due to altered mentation, and information was provided by daughter, when she was at patient's bedside with the ED physician earlier Allergies Allergy/AdvReac Type Severity Reaction Status Date / Time lisinopril AdvReac Intermediate COUGH Verified 06/18/23 15:28 Home Medications Medication Instructions Recorded Confirmed Type tiotropium 2.5 mcg-olodaterol 2.5 2 puff inhalation QAM #4 grams 02/18/21 06/18/23 Rx mcg/actuation mist for inhalation (Stiolto Respimat) polyethylene glycol 3350 17 17 g PO DAILY Constipation 06/30/21 06/18/23 History gram/dose oral powder (Miralax) docusate sodium 100 mg capsule 400 mg PO BID 07/31/21 06/18/23 History (Colace) cinacalcet 30 mg tablet (Sensipar) 30 mg PO QAM 03/27/22 06/18/23 History epinephrine 0.3 mg/0.3 mL 0.3 mg IM Q4H PRN as directed 08/29/22 06/18/23 History injection, auto-injector (EpiPen) ipratropium 0.5 mg-albuterol 3 mg 3 ml inhalation QS PRN Shortness 08/29/22 06/18/23 History (2.5 mg base)/3 mL nebulization Of Breath Or Wheezing soln ferric citrate 210 mg iron tablet 420 mg (2 x 210 mg iron) PO 09/06/22 06/18/23 Rx (Auryxia) TIDWMEAL #1 tab amiodarone 200 mg tablet 200 mg PO QPM 11/17/22 06/18/23 History divalproex 500 mg tablet,delayed 500 mg PO QAM 11/17/22 06/18/23 History release loratadine 10 mg tablet (Wal-itin) 10 mg PO Q2D #0 tabs 12/10/22 06/18/23 Rx acetaminophen 325 mg tablet 650 mg PO Q4 PRN Fever Or Pain 01/05/23 06/18/23 History (Tylenol) cholecalciferol (vitamin D3) 125 5,000 unit PO QPM 01/05/23 06/18/23 History mcg (5,000 unit) capsule thiamine HCl (vitamin B1) 100 mg 100 mg PO QAM 01/05/23 06/18/23 History tablet bisacodyl 5 mg tablet,delayed 5 mg PO DAILY PRN Constipation 02/18/23 06/18/23 History release (Dulcolax (bisacodyl)) guaifenesin 1,200 mg tablet, 1,200 mg PO BID PRN Congestion 02/18/23 06/18/23 History extended release 12 hr (Mucinex) hydroxyzine HCl 10 mg tablet 20 mg PO TID PRN Itching 02/18/23 06/18/23 History tramadol 50 mg tablet 50 mg PO Q6H PRN Pain, Moderate 02/18/23 06/18/23 History trazodone 50 mg tablet 50 mg PO HS 02/18/23 06/18/23 History famotidine 20 mg tablet 20 mg PO DIRECTED 04/27/23 06/18/23 History melatonin 5 mg tablet 15 mg PO HS 04/27/23 06/18/23 History cephalexin 500 mg capsule 500 mg PO TID 06/18/23 06/18/23 History furosemide 40 mg tablet 40 mg PO QAM 06/18/23 06/18/23 History vitamin B complex-vitamin C-folic 1 tab PO DAILY 06/18/23 06/18/23 History acid 0.8 mg tablet ([place]-Ancelmo) Past Med/Surg History Medical History Bladder mass Cirrhosis of liver Ascites Confusion Ruptured middle cerebral artery aneurysm Seizure disorder Myoclonic jerking Bradycardia History of marijuana use daily Hx of atrial flutter 06/2021, hospitalized w/pneumonia for almost 3 weeks; dx atrial flutter- currently amiodarone; f/u dr. adkins, mo Paroxysmal atrial flutter Vitamin D deficiency Hypercalcemia Diverticulosis PAF (paroxysmal atrial fibrillation) Gout hx CCPD (continuous cycling peritoneal dialysis) status port in place left abdomen--dialysis daily at home; second port that has been placed for dialysis. Tremor of both hands Alzheimer disease Hypertension On home oxygen therapy 2L N/C at hs Low back pain Hemorrhoids "not currently flared" Benign neoplasm of skin of nose removed once COPD (chronic obstructive pulmonary disease) HTN (hypertension) Anemia Intracranial hemorrhage 2012 Secondary hyperparathyroidism (of renal origin) Benign prostate hyperplasia Polycystic kidney disease, adult type (09/03/12) Surgical History History of colonoscopy History of tooth extraction all teeth History of cerebral aneurysm repair [address] [facility] [place]--clip in place; clip IS MRI COMPATIBLE Family History Mother , age 65 of cancer Cancer Father , age 60 from a tree falling on him No problems noted. Other No family history of adverse response to anesthesia Denies family history of Myocardial infarction Social History Smoking Status: Former smoker Tobacco Type: Cigarettes Age Started Using Tobacco: 16; Age Quit Using Tobacco: 71; packs per day: 1; Second Hand Exposure: No; Do You Dip or Chew Tobacco: No; Hx Alcohol Use: No Hx Substance Use: Yes Last Used Substance: Unknown Last Used Substance Other:: last used 2-3 months ago Preferred Language: Luxembourgish Communication Ability: Effective Communication Ability Comment: pt can sign own consent Finger Buff Sewer Required: No Beliefs That Will Affect Care: None marital status: Single Current Living Situation: Snf Current Living Situation Comment: granddaughter and grandson How many Children do You have: 1 Feels Safe at Home: Yes Assistive Devices: Walker Review of Systems Review of Systems: Patient is unable to contribute to review of systems due to altered mentation Physical Exam Physical Exam: The patient is lethargic, confused, mumbles occasionally answers to questions, normocephalic and atraumatic, lying in bed and in no acute distress. HEENT--PERRL, EOMI, mucous membranes and oropharynx dry. Neck--supple. No JVD. No bruits. Thyroid normal, trachea midline, no adenopathy. Heart--normal S1 and S2. No murmurs, rubs or gallops. Lungs--decreased breath sounds throughout, crackles at the bases. No respiratory distress, no accessory muscle use. Abdomen--normal bowel sounds and soft. Nontender. Nondistended, no hernias or masses, no organomegaly. Extremities--1+ bilateral pretibial pitting edema. Dermatologic--chronic venous stasis changes Neurologic--cranial nerves II through XII grossly intact. Rheumatologic--limited exam due to mental state Psychiatric--confused Results & Data Results & Data Vital Signs (Past 12 Hours) Vital Signs Temp Pulse Pulse Resp BP BP Pulse Ox 06/18/23 14:47 73 06/18/23 14:00 75 22 124/70 98 06/18/23 12:15 68 18 135/71 94 06/18/23 10:54 77 20 98 06/18/23 10:54 77 20 157/76 H 98 06/18/23 10:54 37.1 C 77 20 157/76 H 98 06/18/23 10:48 79 O2 Del Method O2 Flow Rate 06/18/23 14:47 06/18/23 14:00 Nasal Cannula 2 06/18/23 12:15 Room Air 06/18/23 10:54 Room Air 06/18/23 10:54 Nasal Cannula 2 06/18/23 10:54 Nasal Cannula 2 06/18/23 10:48 Laboratory Results Laboratory Results WBC 6.01 K/ul (4.8-10.8) 06/18/23 11:44 RBC 3.50 M/uL (4.70-6.10) L 06/18/23 11:44 Hgb 10.3 g/dl (14.0-18.0) L 06/18/23 11:44 Hct 31.8 % (42.0-52.0) L 06/18/23 11:44 MCV 90.9 fL (80.0-100.0) 06/18/23 11:44 MCH 29.4 pg (25.0-34.0) 06/18/23 11:44 MCHC 32.4 g/dL (32.0-36.0) 06/18/23 11:44 RDW Std Deviation 51.8 fL (36.4-46.3) H 06/18/23 11:44 RDW Coeff of Giovana 15.6 % (11.5-14.5) H 06/18/23 11:44 Plt Count 274 K/uL (130-400) 06/18/23 11:44 MPV 9.3 fL (9.4-12.4) L 06/18/23 11:44 Immature Gran % (Auto) 0.8 % 06/18/23 11:44 Neut % (Auto) 66.5 % 06/18/23 11:44 Lymph % (Auto) 13.6 % 06/18/23 11:44 [place] % (Auto) 14.6 % 06/18/23 11:44 Eos % (Auto) 3.5 % 06/18/23 11:44 Baso % (Auto) 1.0 % 06/18/23 11:44 Neut # (Auto) 3.99 K/uL (1.40-6.50) 06/18/23 11:44 Lymph # (Auto) 0.82 K/uL (1.20-3.40) L 06/18/23 11:44 [place] # (Auto) 0.88 K/uL (0.11-0.59) H 06/18/23 11:44 Eos # (Auto) 0.21 K/uL (0.00-0.50) 06/18/23 11:44 Baso # (Auto) 0.06 K/uL (0.00-0.20) 06/18/23 11:44 Immature Gran # (Auto) 0.05 K/uL (0.01-0.20) 06/18/23 11:44 Sodium 135 mmol/L (136-145) L 06/18/23 11:44 Potassium 4.0 mmol/L (3.5-5.1) 06/18/23 11:44 Chloride 100 mmol/L (98-107) 06/18/23 11:44 Carbon Dioxide 27 mmol/L (21-32) 06/18/23 11:44 Anion Gap 8 (3-11) 06/18/23 11:44 BUN 69 mg/dl (6-23) H 06/18/23 11:44 Creatinine 7.03 mg/dl (0.6-1.4) H* 06/18/23 11:44 Est Cr Clr Drug Dosing 16.0 ml/min 06/18/23 11:44 Est GFR ( Amer) 8.2 ml/min 06/18/23 11:44 Est GFR (Non-Af Amer) 7.1 ml/min 06/18/23 11:44 BUN/Creatinine Ratio 9.8 (10-20) L 06/18/23 11:44 Glucose 94 mg/dl (70-99(Fasting)) 06/18/23 11:44 Calcium 9.4 mg/dl (8.6-10.3) 06/18/23 11:44 Total Bilirubin 0.4 mg/dl (0.2-1.0) 06/18/23 11:44 AST 17 U/L (13-39) 06/18/23 11:44 ALT 8 U/L (7-52) 06/18/23 11:44 Alkaline Phosphatase 58 U/L (34-104) 06/18/23 11:44 Troponin I High Sens 63.9 pg/ml (0-20) H* 06/18/23 11:44 B-Natriuretic Peptide 1384 pg/ml (0-100) H 06/18/23 11:44 Total Protein 5.6 gm/dl (6.0-8.3) L 06/18/23 11:44 Albumin 2.6 gm/dl (3.4-5.0) L 06/18/23 11:44 Globulin 3.0 gm/dl (2.5-4.0) 06/18/23 11:44 Albumin/Globulin Ratio 0.9 (0.9-2) 06/18/23 11:44 Lipase 7 U/L (11-82) L 06/18/23 11:[address] 06/18/23 10:49 CT SCAN OF THE CERVICAL SPINE CLINICAL HISTORY: Fall. COMPARISON STUDY: CT of the cervical spine dated 09/01/2022. TECHNIQUE: CT scan of the cervical spine is performed from the skull base to the upper thoracic spine. Images are reviewed in the axial, sagittal, and coronal planes. IV contrast was not administered for this examination. A dose lowering technique was utilized adhering to the principles of ALARA. FINDINGS: Skeletal structures: The skeletal structures are osteopenic. There is no evidence of fracture or subluxation involving the cervical spine. Vertebral body height and alignment are maintained throughout the cervical spine. There are minimal chronic superior endplate compression deformities of T1 and T2. There is straightening of the cervical lordosis. Anterior osteophytes are seen throughout. The odontoid process and lateral masses are intact. The atlantoaxial articulation is preserved noting productive degenerative change. The spinous processes appear intact. There is moderate multilevel cervical spondylosis. Uncovertebral and facet arthropathy contributes to neuroforaminal narrowing at several levels. Intervertebral discs: There is moderate disc space narrowing at C5-C6 and C6-C7 with endplate sclerosis. Mild narrowing is seen at the remaining cervical levels. Central canal: Grossly patent. Soft tissues: The prevertebral and paraspinous soft tissues are within normal limits. There is atherosclerotic calcification of the carotid bulbs. A left internal jugular central venous catheter is noted. Calvarium: The visualized calvarium at the skull base appears intact. Brain parenchyma: Partially visualized brain parenchyma at the skull base is within normal limits. Sinuses and mastoids: There is mucosal thickening in the left maxillary antrum. There is a right mastoid effusion. The left mastoid air cells are well pneumatized. Lung apices: Emphysematous change and fibrosis is noted at both apices. IMPRESSION: 1. There is no evidence of fracture or subluxation involving the cervical spine. 2. Osteopenia and spondylitic change as above. 3. Emphysema. ACT 112: Negative or not required by law. Electronically signed by: Jeet Ramirez M.D. 06/18/2023 11:35 AM Chest X-Ray 06/18/23 10:49 XR chest 1V portable HISTORY: 72 years-old Male fall acute chest trauma status post fall COMPARISON: Chest radiograph 04/27/2023 TECHNIQUE: AP view of the chest FINDINGS: Cardiac silhouette is enlarged. Left subclavian dual-lead hemodialysis catheter. Emphysema. Interstitial coarsening with patchy bilateral airspace opacities again noted. No pneumothorax or large pleural effusion. Bones appear grossly intact. IMPRESSION: 1. Cardiomegaly with unchanged mixed interstitial and alveolar opacities, likely representing fibrosis. 2. Emphysema. 3. No pneumothorax. ACT 112: Negative or not required by law. The above report was generated using voice recognition software. It may contain grammatical, syntax or spelling errors. Electronically signed by: Bethel Logan M.D. 06/18/2023 12:[address] 06/18/23 10:49 CT SCAN OF THE BRAIN WITHOUT IV CONTRAST CLINICAL HISTORY: Fall. COMPARISON STUDY: CT of the brain dated 11/01/2022. TECHNIQUE: Unenhanced axial CT scan of the brain is performed from the vertex to the skull base. A dose lowering technique was utilized adhering to the principles of ALARA. CT DOSE: 1101.79 mGy.cm FINDINGS: Brain parenchyma: Foci of bifrontal and left temporal encephalomalacia are unchanged and consistent with remote insults. Surgical clips or coils are seen in the left temporal fossa. There is age-related involutional change noting mild subcortical and periventricular microangiopathic disease. There is no hemorrhage, mass effect, or evidence of acute territorial ischemia by CT criteria. Rosas-white matter differentiation is preserved. No extra-axial fluid collection is seen. Ventricles, sulci, cisterns: Prominent secondary to involutional change. Intracranial vasculature: There is atherosclerotic calcification of the cavernous carotid and vertebral arteries. Calvarium: There is postoperative change from left-sided craniotomy. No depressed calvarial fracture is identified. Soft tissues: There is left facial soft tissue contusion. Sinuses and mastoids there is moderate mucosal thickening in the left maxillary antrum. The remaining paranasal sinuses are clear. There is a small right mastoid effusion. The left mastoid air cells are well pneumatized. Orbits: The bony orbits are grossly intact. IMPRESSION: Chronic and postsurgical changes as above with no hemorrhage, mass effect, or evidence of acute territorial ischemia by CT criteria. ACT 112: Negative or not required by law. Electronically signed by: Jeet Ramirez M.D. 06/18/2023 11:25 AM Humerus X-Ray 06/18/23 10:49 LEFT HUMERUS 2 VIEWS CLINICAL HISTORY: Fall with left arm injury. FINDINGS: AP and lateral views of the left humerus are obtained. No prior studies are available for comparison at the time of dictation. The skeletal structures are osteopenic. There is no radiographic evidence of left humeral fracture. The shoulder and elbow joints are grossly maintained. The overlying soft tissues are normal as imaged. IMPRESSION: No acute bony abnormality is identified. Electronically signed by: Jeet Ramirez M.D. 06/18/2023 11:05 AM Code Status & VTE Plan Code Status Full code VTE Prophylaxis Plan VTE Prophylaxis will be ordered: Yes PG Care Time/CCT Total # of Minutes Spent Total Time Spent with Patient: Total time spent is greater than 50% in coordination of care (as documented) at patient's floor/unit and/or counseling patient: Coding Level of Care Code 04756 INT INP/OBS CARE 3/75MIN Diagnoses Chronic respiratory failure with hypoxia J96.11 ESRD (end stage renal disease) on dialysis N18.6; Z99.2 Cirrhosis of liver K74.60 HTN (hypertension) I10 Hypertension type: unspecified Paroxysmal atrial flutter I48.92 Anasarca R60.1 Seizure disorder G40.909 Confusion R41.0 (4) HTN (hypertension) Hypertension type: unspecified Qualified Code(s): I10 - Essential (primary) hypertension
[2023-06-18] MEDS ORDERED: ONDANSETRON INJ 2 MG/ML 2 ML VIAL IV PRN (18:29)
[2023-06-18 19:03] LABS: Appearance Urine Cloudy (Clear); Bacteria Urine Automated Negative (Negative); Bilirubin Urine Negative (Negative); Blood Urine 1+ (Negative); Cast Urine Automated 0 /lpf (0-5); Color Urine Yellow; Epithelial Cell Urine Auto >30 /lpf (0-5); Glucose Urine UA Negative (Negative); Ketones Urine Negative (Negative); Leukocyte Esterase Urine 3+ (Negative); Nitrite Urine Negative (Negative); RBC Urine Automated 0-4 /hpf (0-4); Specific Gravity Urine 1.012 (1.000-1.030); Urobilinogen Urine Negative (Negative); WBC Urine Automated >30 /hpf (0-5); pH Urine 8.5 (4.5-7.5)
[2023-06-18 19:26] LABS: Protein Urine 2+ (Negative)
[2023-06-18] MEDS: AMIODARONE 200 MG TAB PO SCH (20:09)
[2023-06-18] MEDS: HEPARIN SOD 5,000 UNIT/0.5 ML VIAL SQ SCH (20:16)
[2023-06-18] MEDS: CEFEPIME 1,000 MG in SYRINGE 0 ML IV SCH (20:16)
--- OUTSIDE RECORDS SUMMARY | 2023-06-18 23:55 | External Medical Summary | Summary of Care ---
Author Name Unknown Organization [facility] Address [address] [place] [address] Phone [phone] Care Team Providers Care Admissions Clerk Name Role Phone Maximo Taylor MD Primary Care Provide r Reason for Visit * Reason Onset Date Comments Medication Refill 06/18/2023 Encounter Details Date Type Department Care Team (Late st Contact Info) Description 06/18/2023 Refill [facility] [address] [place] [address] Brianna Orozco PA-C [address] [place] [address] Allergies Active Allergy Reactions Criticality Noted Date Comments Lisinopril 04/09/2023 documented as of this encounter (statuses as of 06/18/2023) Medications Medication Sig Dispensed Refills Start Date [...] mouth in the morning. 0 01/22/2023 Active traZODone HCl 50 MG Oral Tablet [...] paracentesis 100 mL 0 04/09/2023 Active PEG 3175-LSp-LoYuz-NaC l-NaSulf 236 GM Oral Solution Reconstituted Take according to coloscopy prep instructions. 4000 mL 0 04/09/2023 Active hydrOXYzine HCl 10 MG Oral Tablet (Atarax) Take 1 Tablet by mouth every 4 hours as needed for Itching. 0 04/27/2023 Active Furosemide 40 MG Oral Tablet (Lasix) Take 1 Tablet by mouth in the morning. 0 05/11/2023 Active traMADol HCl 50 MG Oral Tablet (Ultram) Take 1 Tablet by mouth every 6 hours as needed for Pain, Moderate or Pain, Severe. 40 Tablet 0 06/18/2023 Active traMADol HCl 50 MG Oral Tablet (Ultram) Take 1 Tablet by mouth every 6 hours as needed for Pain, Moderate or Pain, Severe. 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 05/21/2023 Adenomatous duodenal polyp 05/21/2023 Transitional cell carcinoma determined by biopsy of [...] as of this encounter (statuses as of 06/18/2023) Immunizations Name Administration Dates Next Due Seasonal [...] encounter Miscellaneous Notes * Telephone Encounter - Brianna Orozco PA-C - 06/18/2023 11:15 AM EST REFILL TRAMADOL 50MG Q SIX HOURS PRN MOD TO SEVERE PAIN #40 R0 SENT ELECTRONICALY TO [facility] documented in this encounter Plan of Treatment Upcoming Encounters Date Type Department Care Team (Late st Contact Info) Description 07/14/2023 9:20 AM EST Office Visit Dermatology [address] [place] [address] Jessica Williamson PA-C [address] [place] [address] [place] [id number] 08/19/2023 11:40 AM EST Office Visit Hepatology, [facility] [address] [place] [address] Latoya Selby DO [address] [place] [phone] Health Maintenance Due Date Last Done Comments Hanna's Esophagus Surveilance 1950 Pneumococcal Vaccine: 65+ Years (1 - PCV) 1956 Depression Screening 1962 O2 ASSESSMENT COMPLETED IN PAST YEAR FOR COPD 1968 Cologuard 1995 Fecal Occult Blood Test 1995 Sigmoidoscopy 1995 LUNG CANCER SCREENING - USE SMARTSET 14944 2000 Zoster Vaccines (1 of 2) 2000 [...] filedocumented as of this encounter Care Teams Admissions Clerk Relationship Specialty Start Date End Date Maximo Taylor MD [address] [facility] [place] [id number] PCP - General Family Medicine 05/04/23 documented as of this encounter
--- OUTSIDE RECORDS SUMMARY | 2023-06-18 23:55 | External Medical Summary | Summary of Care ---
Author Name Unknown Organization [facility] Address [address] [place] [address] Phone [phone] Care Team Providers Care Information Technology Consultant Name Role Phone Maximo Taylor MD Primary Care Provide r Reason for Visit * Reason Onset Date Comments Assisted Visit - Transfer to ER 06/18/2023 Encounter Details Date Type Department Care Team (Latest Contact Info) Description 06/18/2023 6:30 AM EST Assisted Visit [facility] [address] [place] [address] Brianna Orozco PA-C [address] [place], [place] [id number] Fall, initial encounter*; Left facial swelling; Dysphagia, unspecified type; ESRD on dialysis ([facility]); COPD, moderate ([facility]); Ascites due to alcoholic cirrhosis ([facility]); Anemia in chronic kidney disease, on chronic dialysis ([facility]); History of nontraumatic rupture of cerebral aneurysm; History of intracranial hemorrhage; 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 behavioral disturbance, psychotic disturbance, mood disturbance, or anxiety ([facility]); PAF (paroxysmal atrial fibrillation) ([facility]); 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 ([facility]); Closed fracture of left wrist with routine healing, subsequent encounter Allergies Active Allergy Reactions Criticality Noted [...] cut, crush or chew 0 01/21/2023 Active [place]ora Caps 1 MG Oral Capsule Take 1 [...] paracentesis 100 mL 0 04/09/2023 Active PEG [id number]-MwBjo-NaCl- NaSulf 236 GM Oral Solution Reconstituted Take [...] 9:20 AM EST Office Visit Dermatology [address] [place] [address] Jessica Williamson PA-C [address] [place] [address] [place] [address] 08/19/2023 11:40 AM EST Office Visit Hepatology, [facility] [address] [place] [address] Latoya Selby DO [address] [place] [phone] Health Maintenance Due Date Last Done Comments Hanna's Esophagus Surveilance 1950 Pneumococcal Vaccine: 65+ Years (1 - PCV) 1956 Depression Screening 1962 O2 ASSESSMENT COMPLETED IN PAST YEAR FOR COPD 1968 Cologuard 1995 Fecal Occult Blood Test 1995 Sigmoidoscopy 1995 LUNG CANCER SCREENING - USE SMARTSET 25524 2000 Zoster Vaccines (1 of 2) 2000 [...] as of this encounter Visit Diagnoses Diagnosis Fall, initial encounter- Primary Left facial swelling Swelling, mass, or lump in head and neck Dysphagia, unspecified type ESRD on dialysis (HCC) End stage renal disease COPD, moderate (HCC) Chronic airway obstruction, not elsewhere classified Ascites due to alcoholic cirrhosis (HCC) Anemia in chronic kidney disease, on chronic dialysis (HCC) History of nontraumatic rupture of cerebral aneurysm History of intracranial hemorrhage Personal history of other diseases of circulatory system 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 behavioral disturbance, psychotic disturbance, mood disturbance, or anxiety (HCC) PAF (paroxysmal atrial fibrillation) (HCC) Atrial fibrillation 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
--- OUTSIDE RECORDS SUMMARY | 2023-06-18 23:55 | External Medical Summary | Continuity Of Care Document ---
Author Name Unknown Address [address] [place] [address] Organization [facility] ( ) Care Team Providers Care Bobbin Winder Name Role Phone Maximo Taylor Primary Care Provider [phone] Problems Code Description Start Date End Date [...] weight Temperature SpO2 Blood Sugar Pulse Respirations 201 57961 1 156.20 NI 30390 205 51762 2 161.00 NI 58781 209 22509 0 158.20 NI 62911 211 99926 7 68.00 mm[Hg] - Sitting 112.00 mm[Hg] - Sitting 96.80 Ear 92.00 % 75.00/ min 214 22692 8 168.80 NI 31575 217 05539 0 71.00 mm[Hg] - Sitting 131.00 mm[Hg] - Sitting 98.90 Ear 94.00 % 80.00/ min 96356 218 35039 4 78.00 mm[Hg] - Sitting 130.00 mm[Hg] - Sitting 86.00/ min 18.00/min 79885 221 22327 7 155.00 NI 84837 223 12770 4 159.00 NI 49557 224 30137 0 50.00 mm[Hg] - Sitting 113.00 mm[Hg] - Sitting 97.50 Ear 94.00 % 63.00/ min 77934 224 04468 0 72.00 mm[Hg] - Sitting 114.00 mm[Hg] - Sitting 98.00 Ear 94.00 % 78.00/ min 09979 225 39914 1 97.90 Ear 61509 225 95242 7 98.00 Ear 14883 225 28391 0 70.00 mm[Hg] - Sitting 115.00 mm[Hg] - Sitting 98.00 Ear 92.00 % 70.00/ min 51718 225 71116 7 98.00 Ear 74387 225 91379 9 98.00 Ear 95235 225 30981 0 67.00 mm[Hg] - Sitting 124.00 mm[Hg] - Sitting 98.00 Ear 93.00 % 100.00 /min 18242 226 78595 2 98.30 Ear 61331 226 54469 7 98.20 Ear 94.00 % 94.00/ min 70901 226 38356 4 98.20 Ear 98206 226 28396 5 96.60 Oral 79692 227 41967 5 97.50 Oral 85491 228 95830 5 64.00 mm[Hg] - Sitting 118.00 mm[Hg] - Sitting 97.90 Ear 20.00/min 47677 228 91008 3 64.00 mm[Hg] - Sitting 118.00 mm[Hg] - Sitting 171.00 NI 97.90 Ear 94.00/ min 97698 228 01465 7 98.10 Ear 31714 229 99006 7 97.10 Ear Immunizations Vaccine Date Status COVID-19 09/11/2020 Completed COVID-19 10/08/2020 Completed COVID-19 12/16/2022 Completed Influenza 03/21/2022 Completed Influenza 04/02/2023 Completed (PCV13)Pneumococcal 04/19/2017 Completed (PPSV23)Pneumococcal 02/08/2019 Completed Shingles 10/02/2021 Completed Tetanus 04/07/2011 Completed H1N1 08/07/2009 Completed Shingles 2 04/10/2022 Completed
[2023-06-19 08:02] LABS: Basophils # (auto) 0.06 K/uL (0.00-0.20); Basophils % (auto) 1.1 %; Eosinophils # (auto) 0.27 K/uL (0.00-0.50); Hematocrit (blood only) 30.7 % (42.0-52.0); Hemoglobin 9.8 g/dl (14.0-18.0); Immature Granulocytes # (auto) 0.03 K/uL (0.01-0.20); Immature Granulocytes % (auto) 0.6 %; Lymphocytes # (auto) 0.85 K/uL (1.20-3.40); Lymphocytes % (auto) 15.9 %; Mean Corpuscular Hemoglobin 29.4 pg (25.0-34.0); Mean Corpuscular Hgb Conc 31.9 g/dL (32.0-36.0); Mean Corpuscular Volume 92.2 fL (80.0-100.0); Mean Platelet Volume 9.2 fL (9.4-12.4); Monocytes # (auto) 0.87 K/uL (0.11-0.59); Monocytes % (auto) 16.2 %; Neutrophils # (auto) 3.28 K/uL (1.40-6.50); Neutrophils % (auto) 61.2 %; Platelet Count 261 K/uL (130-400); RDW Coefficient of Variation 15.4 % (11.5-14.5); RDW Standard Deviation 51.9 fL (36.4-46.3); Red Blood Count 3.33 M/uL (4.70-6.10); White Blood Count 5.36 K/ul (4.8-10.8)
[2023-06-19 08:21] LABS: Albumin Globulin Ratio 0.9 (0.9-2); Albumin Level 2.4 gm/dl (3.4-5.0); BUN Creatinine Ratio 9.5 (10-20); Bilirubin,Total 0.4 mg/dl (0.2-1.0); Calcium 9.1 mg/dl (8.6-10.3); Est GFR (African American) 6.8 ml/min; Est GFR (Non-African American) 5.9 ml/min; Globulin 2.7 gm/dl (2.5-4.0); Magnesium 2.2 mg/dl (1.7-2.4); Phosphorus 4.2 mg/dl (2.5-4.9); Potassium 4.3 mmol/L (3.5-5.1); Total Protein 5.1 gm/dl (6.0-8.3)
[2023-06-19] MEDS ORDERED: SODIUM CHLORIDE 0.9% 1,000 ML IV SCH (08:30)
[2023-06-19] MEDS: THIAMINE HCL 100 MG in SYRINGE 9 ML IV SCH (08:46)
[2023-06-19] MEDS: HEPARIN SOD 5,000 UNIT/0.5 ML VIAL SQ SCH ×2 (08:48→20:34)
[2023-06-19] MEDS: DIVALPROEX DELAY RELEASE 500 MG TAB PO SCH ×2 (08:55→14:07)
[2023-06-19] MEDS ORDERED: EPOETIN ALFA 10,000 UNITS/ML VIAL IV ONE (10:00)
--- NOTE | 2023-06-19 12:39 | Nephrology Progress Note ---
Date of Service June 19, 2023 Assessment & Plan (1) ESRD on dialysis: Plan: Maintained on HD MWF at [facility]. Missed HD yesterday. Orders for treatment today entered into the EHR and reviewed with HD RN. Sisi was seen and evaluated during hemodialysis. He is tolerating treatment well. EDW 73 Kg. Sisi was > 76 kg post HD on 06/16/23. Qb at goal. Tolerating UF goal of ~4 L. TDC functioning well. Catheter placed by Dr. Yeboah on November 19. Medications appropriately dosed for IHD. (2) Anemia: Plan: Epogen 4000 units provided with HD 11/23/22. Venofer 100 mg IV and Epogen 01435 units to be provided with HD today. (3) Secondary hyperparathyroidism: Plan: Renal diet. Auryxia not available while inpatient and substituted with Renvela 1 tab QAC. Sensipar held while inpatient. (4) Cirrhosis of liver: Plan: Would benefit from therapeutic paracentesis for volume status. Admission and Anticipated Discharge Date Admission Date: June 18, 2023 Subjective No acute events overnight. Afebrile. Sisi was seen and evaluated during HD this morning. He is tolerating dialysis well. Review of Systems Review of Systems: All systems reviewed & are unremarkable except as noted in HPI & below Physical Exam Constitutional: no acute distress Eyes: + anicteric sclerae ENMT: Mouth: no oral mucosal abnormality and oral mucous membranes not dry Neck: normal visual inspection and trachea midline Respiratory: no respiratory distress Auscultation: lungs clear to auscultation bilaterally and + rales Cardiovascular: Rate/Rhythm: regular rate and regular rhythm Heart Sounds: normal S1 and normal S2 Extremities: + edema (2 + b/l LE edema, left UE 3 + edema), + vascular access device (Left IJ TDC, no erythema, tenderness and drainage.) and + AV fistula (left BC AVF with bruit) Musculoskeletal: Extremities: extremities normal to inspection Skin: normal turgor; no jaundice Neurologic: no focal motor deficits Motor/Sensory: no tremor and no asterixis Psychiatric: Orientation: alert and oriented x 3 Results & Data Vital Signs (Past 12 Hours) Vital Signs Temp Pulse Pulse Pulse Resp BP BP 06/19/23 12:00 91 H 116/67 06/19/23 11:30 91 H 121/68 06/19/23 11:00 91 H 102/66 06/19/23 10:30 89 138/66 06/19/23 10:00 86 125/65 06/19/23 09:30 81 155/64 H 06/19/23 09:17 36.7 C 83 06/19/23 09:00 36.4 C L 16 06/19/23 09:00 85 06/19/23 07:08 36.4 C L 87 18 145/73 H 06/19/23 04:53 80 18 06/19/23 03:03 37 C 82 18 134/70 Pulse Ox O2 Del Method O2 Flow Rate 06/19/23 12:00 06/19/23 11:30 06/19/23 11:00 06/19/23 10:30 06/19/23 10:00 06/19/23 09:30 06/19/23 09:17 06/19/23 09:00 90 Nasal Cannula 2 06/19/23 09:00 06/19/23 07:08 91 Nasal Cannula 1 06/19/23 04:53 93 Nasal Cannula 1 06/19/23 03:03 93 Nasal Cannula Laboratory Results Laboratory Results - last 24 hr 06/18/23 06/18/23 06/18/23 11:44 16:33 18:45 WBC 6.01 RBC 3.50 L Hgb 10.3 L Hct 31.8 L MCV 90.9 MCH 29.4 MCHC 32.4 RDW Std Deviation 51.8 H RDW Coeff of Giovana 15.6 H Plt Count 274 MPV 9.3 L Immature Gran % (Auto) 0.8 Neut % (Auto) 66.5 Lymph % (Auto) 13.6 [place] % (Auto) 14.6 Eos % (Auto) 3.5 Baso % (Auto) 1.0 Neut # (Auto) 3.99 Lymph # (Auto) 0.82 L [place] # (Auto) 0.88 H Eos # (Auto) 0.21 Baso # (Auto) 0.06 Immature Gran # (Auto) 0.05 Sodium Potassium Chloride Carbon Dioxide Anion Gap BUN 69 H Creatinine 7.03 H* Est Cr Clr Drug Dosing 16.0 Est GFR ( Amer) 8.2 Est GFR (Non-Af Amer) 7.1 BUN/Creatinine Ratio 9.8 L Glucose 94 Calcium Phosphorus Magnesium Total Bilirubin AST 17 ALT 8 Alkaline Phosphatase 58 Troponin I High Sens 63.9 H* B-Natriuretic Peptide 1384 H Total Protein 5.6 L Albumin Globulin 3.0 Albumin/Globulin Ratio 0.9 Lipase 7 L Urine Color Yellow Urine Appearance Cloudy A Urine pH 8.5 H Ur Specific [place] 1.012 Urine Protein 2+ H Urine Glucose (UA) Negative Urine Ketones Negative Urine Blood 1+ H Urine Nitrite Negative Urine Bilirubin Negative Urine Urobilinogen Negative Ur Leukocyte Esterase 3+ H Urine WBC (Auto) >30 H Urine RBC (Auto) 0-4 U Hyaline Cast (Auto) 0 U Epithel Cells (Auto) >30 H Urine Bacteria (Auto) Negative Ur Renal Epithelial Cell Not Reportable Valproic Acid SARS-CoV-2, RNA, NAAT NEGATIVE 06/18/23 06/19/23 19:15 07:18 WBC 5.36 RBC 3.33 L Hgb 9.8 L Hct 30.7 L MCV 92.2 MCH 29.4 MCHC 31.9 L RDW Std Deviation 51.9 H RDW Coeff of Giovana 15.4 H Plt Count 261 MPV 9.2 L Immature Gran % (Auto) 0.6 Neut % (Auto) 61.2 Lymph % (Auto) 15.9 [place] % (Auto) 16.2 Eos % (Auto) 5.0 Baso % (Auto) 1.1 Neut # (Auto) 3.28 Lymph # (Auto) 0.85 L [place] # (Auto) 0.87 H Eos # (Auto) 0.27 Baso # (Auto) 0.06 Immature Gran # (Auto) 0.03 Sodium 136 Potassium 4.3 Chloride 100 Carbon Dioxide 24 Anion Gap 12 H BUN 78 H Creatinine 8.18 H* D Est Cr Clr Drug Dosing 9.0 Est GFR ( Amer) 6.8 Est GFR (Non-Af Amer) 5.9 BUN/Creatinine Ratio 9.5 L Glucose 71 Calcium 9.1 Phosphorus 4.2 Magnesium 2.2 Total Bilirubin 0.4 AST 14 ALT 8 Alkaline Phosphatase 56 Troponin I High Sens 51.6 H* D B-Natriuretic Peptide Total Protein 5.1 L Albumin 2.4 L Globulin 2.7 Albumin/Globulin Ratio 0.9 Lipase Urine Color Urine Appearance Urine pH Ur Specific [place] Urine Protein Urine Glucose (UA) Urine Ketones Urine Blood Urine Nitrite Urine Bilirubin Urine Urobilinogen Ur Leukocyte Esterase Urine WBC (Auto) Urine RBC (Auto) U Hyaline Cast (Auto) U Epithel Cells (Auto) Urine Bacteria (Auto) Ur Renal Epithelial Cell Valproic Acid 12 L SARS-CoV-2, RNA, NAAT PG Care Time/CCT Total # of Minutes Spent Total Time Spent with Patient: Total time spent is greater than 50% in coordination of care (as documented) at patient's floor/unit and/or counseling patient: Coding Level of Care Code 50231 SUB INP/OBS CARE 3/50MIN Diagnoses ESRD on dialysis N18.6; Z99.2 Anemia, unspecified type D64.9 Anemia type: unspecified type Secondary hyperparathyroidism N25.81 Cirrhosis of liver K74.60 (2) Anemia Anemia type: unspecified type Qualified Code(s): D64.9 - Anemia, unspecified
--- NOTE | 2023-06-19 13:20 | Hospitalist Progress Note ---
Date of Service June 19, 2023 Assessment & Plan (1) Generalized weakness: Plan: Supportive care. Treat possible underlying infection. OT and PT assessments have been requested (2) Urinary tract infection: Plan: Suspected on admission. Urine analysis is abnormal. Urine cultures pending. Continue daptomycin and cefepime for now, day 2 (3) Chronic respiratory failure with hypoxia: Plan: Supplemental oxygen to maintain saturation greater than 90% (4) ESRD (end stage renal disease) on dialysis: Plan: Nephrology consultation appreciated. He normally receives hemodialysis on Wednesday and Wednesday (5) HTN (hypertension): Plan: Stable. Continue current medical management (6) Seizure disorder: Plan: Stable. Continue current medical Plan To be determined. OT and PT assessments have been requested. Await final culture results. Continue antibiotics for now. Admission and Anticipated Discharge Date Admission Date: June 18, 2023 Subjective The patient was seen while in dialysis. Alert and oriented with generalized weakness. Urine cultures are pending. He remains on daptomycin and cefepime, day 2. OT and PT evaluations have been requested. Review of Systems 2 Review of Systems: Constitutional-no fever or chills ENT-no blurred vision, no double vision, no epistaxis, no sore throat Respiratory-no cough, no wheezing, no shortness of breath Cardiac-no palpitations, no chest pain, no syncope GI-no nausea, vomiting, diarrhea, melena, hematochezia -no urinary retention, no urinary incontinence, no dysuria, no hematuria Musculoskeletal-no joint pain, no muscle tenderness Skin-no bruising, no rashes, no pruritus Neuro-generalized weakness. No focal deficits Psych-no depression, no anxiety Physical Exam 2 Physical Exam: General-alert and oriented x3, no fevers, no chills HEENT-head atraumatic and normocephalic, pupils equal and reactive to light, extraocular muscles intact Neck-no lymphadenopathy or thyromegaly, trachea midline Chest-clear to auscultation percussion. No rales, wheezing or rhonchi Cardiac-regular rate and rhythm, normal S1 and S2 Abdomen-normal bowel sounds, nontender, no hepatosplenomegaly Extremities-no cyanosis, clubbing, or edema Neuro-cranial nerves II through XII intact, motor and sensory function within normal limits, strength symmetrical with generalized weakness, no focal deficits Psych-flat affect Results & Data Results & Data Vital Signs (Past 12 Hours) Vital Signs Temp Pulse Pulse Pulse Resp BP BP 06/19/23 13:00 93 H 114/62 06/19/23 12:30 93 H 118/69 06/19/23 12:00 91 H 116/67 06/19/23 11:30 91 H 121/68 06/19/23 11:00 91 H 102/66 06/19/23 10:30 89 138/66 06/19/23 10:00 86 125/65 06/19/23 09:30 81 155/64 H 06/19/23 09:17 36.7 C 83 06/19/23 09:00 36.4 C L 16 06/19/23 09:00 85 06/19/23 07:08 36.4 C L 87 18 145/73 H 06/19/23 04:53 80 18 06/19/23 03:03 37 C 82 18 134/70 Pulse Ox O2 Del Method O2 Flow Rate 06/19/23 13:00 06/19/23 12:30 06/19/23 12:00 06/19/23 11:30 06/19/23 11:00 06/19/23 10:30 06/19/23 10:00 06/19/23 09:30 06/19/23 09:17 06/19/23 09:00 90 Nasal Cannula 2 06/19/23 09:00 06/19/23 07:08 91 Nasal Cannula 1 06/19/23 04:53 93 Nasal Cannula 1 06/19/23 03:03 93 Nasal Cannula Laboratory Results 06/19/23 07:18 06/19/23 07:18 PG Care Time/CCT Total # of Minutes Spent Total Time Spent with Patient: Total time spent is greater than 50% in coordination of care (as documented) at patient's floor/unit and/or counseling patient: Coding Level of Care Code 32610 SUB INP/OBS CARE 3/50MIN Diagnoses Generalized weakness R53.1 Urinary tract infection N39.0 Chronic respiratory failure with hypoxia J96.11 ESRD (end stage renal disease) on dialysis N18.6; Z99.2 HTN (hypertension) I10 Hypertension type: unspecified Seizure disorder G40.909 (5) HTN (hypertension) Hypertension type: unspecified Qualified Code(s): I10 - Essential (primary) hypertension
[2023-06-19] MEDS: PANTOprazole 40 MG in SYRINGE 0 ML IV SCH (14:06)
[2023-06-19] MEDS: CEFEPIME 1,000 MG in SYRINGE 0 ML IV SCH (19:31)
[2023-06-19] MEDS: AMIODARONE 200 MG TAB PO SCH (20:34)
[2023-06-20] MEDS: THIAMINE HCL 100 MG in SYRINGE 9 ML IV SCH (07:29)
[2023-06-20] MEDS: HEPARIN SOD 5,000 UNIT/0.5 ML VIAL SQ SCH ×2 (07:29→20:19)
[2023-06-20 08:26] LABS: Basophils # (auto) 0.08 K/uL (0.00-0.20); Basophils % (auto) 1.3 %; Eosinophils # (auto) 0.28 K/uL (0.00-0.50); Eosinophils % (auto) 4.4 %; Hematocrit (blood only) 31.2 % (42.0-52.0); Hemoglobin 10.2 g/dl (14.0-18.0); Immature Granulocytes # (auto) 0.04 K/uL (0.01-0.20); Immature Granulocytes % (auto) 0.6 %; Lymphocytes # (auto) 1.19 K/uL (1.20-3.40); Lymphocytes % (auto) 18.7 %; Mean Corpuscular Hemoglobin 29.5 pg (25.0-34.0); Mean Corpuscular Hgb Conc 32.7 g/dL (32.0-36.0); Mean Corpuscular Volume 90.2 fL (80.0-100.0); Mean Platelet Volume 9.6 fL (9.4-12.4); Monocytes # (auto) 1.13 K/uL (0.11-0.59); Monocytes % (auto) 17.8 %; Neutrophils # (auto) 3.64 K/uL (1.40-6.50); Neutrophils % (auto) 57.2 %; Platelet Count 275 K/uL (130-400); RDW Coefficient of Variation 15.5 % (11.5-14.5); RDW Standard Deviation 50.8 fL (36.4-46.3); Red Blood Count 3.46 M/uL (4.70-6.10); White Blood Count 6.36 K/ul (4.8-10.8)
[2023-06-20 08:46] LABS: BUN Creatinine Ratio 7.1 (10-20); Calcium 8.8 mg/dl (8.6-10.3); Creatinine Clr Calc Pharmacy 13.2 ml/min; Est GFR (Non-African American) 9.5 ml/min; Potassium 3.7 mmol/L (3.5-5.1)
[2023-06-20] MEDS: PANTOprazole 40 MG in SYRINGE 0 ML IV SCH (11:11)
--- NOTE | 2023-06-20 11:38 | Hospitalist Progress Note ---
Date of Service June 20, 2023 Assessment & Plan (1) Generalized weakness: Plan: Supportive care. Underlying UTI has been ruled out. OT and PT assessments have been requested (2) Urinary tract infection: Plan: Ruled out. Cultures are negative. This was suspected on admission. Antibiotics have been discontinued (3) Chronic respiratory failure with hypoxia: Plan: Supplemental oxygen to maintain saturation greater than 90%. He is on his baseline 2 L/min (4) ESRD (end stage renal disease) on dialysis: Plan: Nephrology consultation appreciated. He normally receives hemodialysis on Wednesday and Wednesday (5) HTN (hypertension): Plan: Stable. Continue current medical management (6) Seizure disorder: Plan: Stable. Continue current medical Plan To be determined. OT and PT assessments are pending Admission and Anticipated Discharge Date Admission Date: June 18, 2023 Subjective Alert. Urine culture is negative. Cefepime and daptomycin have been discontinued. Condom catheter will be discontinued. He is on his baseline oxygen of 2 L/min. Awaiting OT and PT assessments to determine disposition Review of Systems 2 Review of Systems: Constitutional-no fever or chills ENT-no blurred vision, no double vision, no epistaxis, no sore throat Respiratory-no cough, no wheezing, no shortness of breath Cardiac-no palpitations, no chest pain, no syncope GI-no nausea, vomiting, diarrhea, melena, hematochezia -no urinary retention, no urinary incontinence, no dysuria, no hematuria Musculoskeletal-no joint pain, no muscle tenderness Skin-no bruising, no rashes, no pruritus Neuro-generalized weakness. No focal deficits Psych-no depression, no anxiety Physical Exam 2 Physical Exam: General-alert and oriented x3, no fevers, no chills HEENT-head atraumatic and normocephalic, pupils equal and reactive to light, extraocular muscles intact Neck-no lymphadenopathy or thyromegaly, trachea midline Chest-clear to auscultation percussion. No rales, wheezing or rhonchi Cardiac-regular rate and rhythm, normal S1 and S2 Abdomen-normal bowel sounds, nontender, no hepatosplenomegaly Extremities-no cyanosis, clubbing, or edema Neuro-cranial nerves II through XII intact, motor and sensory function within normal limits, strength symmetrical with generalized weakness, no focal deficits Psych-flat affect Results & Data Results & Data Vital Signs (Past 12 Hours) Vital Signs Temp Pulse Pulse Resp BP Pulse Ox O2 Del Method 06/20/23 10:46 36.5 C 82 18 136/68 91 Nasal Cannula 06/20/23 10:00 77 06/20/23 10:00 Nasal Cannula 06/20/23 08:09 36.8 C 84 18 158/70 H 95 Nasal Cannula 06/20/23 03:00 36.9 C 78 16 138/73 90 Nasal Cannula O2 Flow Rate 06/20/23 10:46 2 06/20/23 10:00 06/20/23 10:00 2 06/20/23 08:09 2 06/20/23 03:00 2 Laboratory Results 06/20/23 08:04 06/20/23 08:04 PG Care Time/CCT Total # of Minutes Spent Total Time Spent with Patient: Total time spent is greater than 50% in coordination of care (as documented) at patient's floor/unit and/or counseling patient: Coding Level of Care Code 87953 SUB INP/OBS CARE 3/50MIN Diagnoses Generalized weakness R53.1 Urinary tract infection N39.0 Chronic respiratory failure with hypoxia J96.11 ESRD (end stage renal disease) on dialysis N18.6; Z99.2 HTN (hypertension) I10 Hypertension type: unspecified Seizure disorder G40.909 (5) HTN (hypertension) Hypertension type: unspecified Qualified Code(s): I10 - Essential (primary) hypertension
--- NOTE | 2023-06-20 13:44 | Nephrology Progress Note ---
Date of Service June 20, 2023 Assessment & Plan (1) ESRD on dialysis: Plan: Maintained on HD MWF at [facility]. Missed HD Wednesday but completed full treatment yesterday with adequate UF and clearance. Volume status acceptable. Electrolytes controlled. Next HD will be coordinated for tomorrow as inpatient. I discussed the plan of care with Dr. Yeung this AM. EDW 73 Kg. TDC functioning well. Medications appropriately dosed for IHD. (2) Anemia: Plan: H/H stable. PATRICK with HD PRN. (3) Secondary hyperparathyroidism: Plan: Renal diet. Auryxia not available while inpatient and substituted with Renvela 1 tab QAC. Sensipar held while inpatient. (4) Cirrhosis of liver: Plan: Therapeutic paracentesis PRN. Admission and Anticipated Discharge Date Admission Date: June 18, 2023 Subjective No acute events overnight. No complaints this AM. Sisi tolerated HD well yesterday. No complications with treatment. Afebrile. Review of Systems Review of Systems: All systems reviewed & are unremarkable except as noted in HPI & below Physical Exam Constitutional: no acute distress Eyes: + anicteric sclerae ENMT: Mouth: no oral mucosal abnormality and oral mucous membranes not dry Neck: normal visual inspection and trachea midline Respiratory: no respiratory distress Auscultation: lungs clear to auscultation bilaterally and + rales Cardiovascular: Rate/Rhythm: regular rate and regular rhythm Heart Sounds: normal S1 and normal S2 Extremities: + edema (2 + b/l LE edema, left UE 3 + edema), + vascular access device (Left IJ TDC, no erythema, tenderness and drainage.) and + AV fistula (left BC AVF with bruit) Musculoskeletal: Extremities: extremities normal to inspection Skin: normal turgor; no jaundice Neurologic: no focal motor deficits Motor/Sensory: no tremor and no asterixis Psychiatric: Orientation: alert and oriented x 3 Results & Data Vital Signs (Past 12 Hours) Vital Signs Temp Pulse Pulse Resp BP Pulse Ox O2 Del Method 06/20/23 10:46 36.5 C 82 18 136/68 91 Nasal Cannula 06/20/23 10:00 77 06/20/23 10:00 Nasal Cannula 06/20/23 08:09 36.8 C 84 18 158/70 H 95 Nasal Cannula 06/20/23 03:00 36.9 C 78 16 138/73 90 Nasal Cannula O2 Flow Rate 06/20/23 10:46 2 06/20/23 10:00 06/20/23 10:00 2 06/20/23 08:09 2 06/20/23 03:00 2 Laboratory Results Laboratory Results - last 24 hr 06/20/23 08:04 WBC 6.36 RBC 3.46 L Hgb 10.2 L Hct 31.2 L MCV 90.2 MCH 29.5 MCHC 32.7 RDW Std Deviation 50.8 H RDW Coeff of Giovana 15.5 H Plt Count 275 MPV 9.6 Immature Gran % (Auto) 0.6 Neut % (Auto) 57.2 Lymph % (Auto) 18.7 [place] % (Auto) 17.8 Eos % (Auto) 4.4 Baso % (Auto) 1.3 Neut # (Auto) 3.64 Lymph # (Auto) 1.19 L [place] # (Auto) 1.13 H Eos # (Auto) 0.28 Baso # (Auto) 0.08 Immature Gran # (Auto) 0.04 Sodium 134 L Potassium 3.7 Chloride 99 Carbon Dioxide 29 Anion Gap 6 BUN 39 H D Creatinine 5.51 H* D Est Cr Clr Drug Dosing 13.2 Est GFR ( Amer) 11.0 Est GFR (Non-Af Amer) 9.5 BUN/Creatinine Ratio 7.1 L Glucose 115 H Calcium 8.8 PG Care Time/CCT Total # of Minutes Spent Total Time Spent with Patient: Total time spent is greater than 50% in coordination of care (as documented) at patient's floor/unit and/or counseling patient: Coding Level of Care Code 26900 SUB INP/OBS CARE 3/50MIN Diagnoses ESRD on dialysis N18.6; Z99.2 Anemia, unspecified type D64.9 Anemia type: unspecified type Secondary hyperparathyroidism N25.81 Cirrhosis of liver K74.60 (2) Anemia Anemia type: unspecified type Qualified Code(s): D64.9 - Anemia, unspecified
[2023-06-20] MEDS: AMIODARONE 200 MG TAB PO SCH (20:17)
[2023-06-21 07:47] LABS: Basophils # (auto) 0.07 K/uL (0.00-0.20); Basophils % (auto) 1.1 %; Eosinophils # (auto) 0.39 K/uL (0.00-0.50); Eosinophils % (auto) 6.2 %; Hematocrit (blood only) 29.2 % (42.0-52.0); Hemoglobin 9.7 g/dl (14.0-18.0); Immature Granulocytes # (auto) 0.06 K/uL (0.01-0.20); Lymphocytes # (auto) 1.21 K/uL (1.20-3.40); Lymphocytes % (auto) 19.3 %; Mean Corpuscular Hemoglobin 29.3 pg (25.0-34.0); Mean Corpuscular Hgb Conc 33.2 g/dL (32.0-36.0); Mean Corpuscular Volume 88.2 fL (80.0-100.0); Mean Platelet Volume 9.5 fL (9.4-12.4); Monocytes # (auto) 1.12 K/uL (0.11-0.59); Monocytes % (auto) 17.9 %; Neutrophils # (auto) 3.41 K/uL (1.40-6.50); Neutrophils % (auto) 54.5 %; Platelet Count 267 K/uL (130-400); RDW Standard Deviation 48.7 fL (36.4-46.3); Red Blood Count 3.31 M/uL (4.70-6.10); White Blood Count 6.26 K/ul (4.8-10.8)
[2023-06-21 08:11] LABS: BUN Creatinine Ratio 6.8 (10-20); Calcium 8.9 mg/dl (8.6-10.3); Creatinine Clr Calc Pharmacy 10.4 ml/min; Est GFR (African American) 8.3 ml/min; Est GFR (Non-African American) 7.2 ml/min; Potassium 3.9 mmol/L (3.5-5.1)
[2023-06-21] MEDS: DIVALPROEX DELAY RELEASE 500 MG TAB PO SCH (08:15)
[2023-06-21] MEDS: HEPARIN SOD 5,000 UNIT/0.5 ML VIAL SQ SCH ×3 (08:15→21:44)
--- NOTE | 2023-06-21 11:54 | Nephrology Progress Note ---
Date of Service June 21, 2023 Assessment & Plan (1) ESRD on dialysis: Plan: Maintained on HD MWF at [facility]. Orders for HD entered into EHR and reviewed with on call pharmacy technician. Sisi was seen and evaluated during hemodialysis. He is tolerating treatment well. No complications noted. EDW 73 Kg. UF goal 4 L. Tolerating well. TDC functioning well. Medications appropriately dosed for IHD. Renal diet. Fluid restriction reviewed. (2) Anemia: Plan: H/H stable. (3) Secondary hyperparathyroidism: Plan: Renal diet. Auryxia not available while inpatient and substituted with Renvela 1 tab QAC. Sensipar held while inpatient. (4) Cirrhosis of liver: Plan: Therapeutic paracentesis PRN. PO fluid restriction ~1 L/d. Admission and Anticipated Discharge Date Admission Date: June 18, 2023 Subjective No acute events overnight. No complaints this AM. Sisi was seen and evaluated during dialysis. He is tolerating treatment well. Review of Systems Review of Systems: All systems reviewed & are unremarkable except as noted in HPI & below Physical Exam Constitutional: no acute distress Eyes: + anicteric sclerae ENMT: Mouth: no oral mucosal abnormality and oral mucous membranes not dry Neck: normal visual inspection and trachea midline Respiratory: no respiratory distress Auscultation: lungs clear to auscultation bilaterally Cardiovascular: Rate/Rhythm: regular rate and regular rhythm Heart Sounds: normal S1 and normal S2 Extremities: + edema (improved), + vascular access device (Left IJ TDC, no erythema, tenderness and drainage.) and + AV fistula (left BC AVF with bruit) Musculoskeletal: Extremities: extremities normal to inspection Skin: normal turgor; no jaundice Neurologic: no focal motor deficits Motor/Sensory: no tremor and no asterixis Psychiatric: Orientation: alert and oriented x 3 Results & Data Vital Signs (Past 12 Hours) Vital Signs Temp Pulse Pulse Pulse Resp BP BP 06/21/23 11:00 93 H 124/69 06/21/23 10:30 91 H 131/70 06/21/23 10:00 95 H 144/81 H 06/21/23 09:30 94 H 118/74 06/21/23 09:00 94 H 123/81 06/21/23 08:42 87 143/76 H 06/21/23 08:37 36.7 C 89 06/21/23 08:00 06/21/23 07:12 36.7 C 85 18 157/76 H 06/21/23 02:40 36.6 C 86 20 137/69 Pulse Ox O2 Del Method O2 Flow Rate 06/21/23 11:00 06/21/23 10:30 06/21/23 10:00 06/21/23 09:30 06/21/23 09:00 06/21/23 08:42 06/21/23 08:37 06/21/23 08:00 Nasal Cannula 2 06/21/23 07:12 93 Nasal Cannula 2 06/21/23 02:40 91 Nasal Cannula Laboratory Results Laboratory Results - last 24 hr 06/21/23 07:03 WBC 6.26 RBC 3.31 L Hgb 9.7 L Hct 29.2 L MCV 88.2 MCH 29.3 MCHC 33.2 RDW Std Deviation 48.7 H RDW Coeff of Giovana 15.0 H Plt Count 267 MPV 9.5 Immature Gran % (Auto) 1.0 Neut % (Auto) 54.5 Lymph % (Auto) 19.3 [place] % (Auto) 17.9 Eos % (Auto) 6.2 Baso % (Auto) 1.1 Neut # (Auto) 3.41 Lymph # (Auto) 1.21 [place] # (Auto) 1.12 H Eos # (Auto) 0.39 Baso # (Auto) 0.07 Immature Gran # (Auto) 0.06 Sodium 130 L Potassium 3.9 Chloride 95 L Carbon Dioxide 27 Anion Gap 8 BUN 47 H Creatinine 6.96 H* D Est Cr Clr Drug Dosing 10.4 Est GFR ( Amer) 8.3 Est GFR (Non-Af Amer) 7.2 BUN/Creatinine Ratio 6.8 L Glucose 106 H Calcium 8.9 PG Care Time/CCT Total # of Minutes Spent Total Time Spent with Patient: Total time spent is greater than 50% in coordination of care (as documented) at patient's floor/unit and/or counseling patient: Coding Level of Care Code 29421 SUB INP/OBS CARE 3/50MIN Diagnoses ESRD on dialysis N18.6; Z99.2 Anemia, unspecified type D64.9 Anemia type: unspecified type Secondary hyperparathyroidism N25.81 Cirrhosis of liver K74.60 (2) Anemia Anemia type: unspecified type Qualified Code(s): D64.9 - Anemia, unspecified
--- NOTE | 2023-06-21 12:41 | Hospitalist Progress Note ---
Date of Service June 21, 2023 Assessment & Plan (1) Generalized weakness: Plan: Supportive care. Underlying UTI has been ruled out. OT and PT assessments have been requested. He appears to be back to his baseline (2) Urinary tract infection: Plan: Ruled out. Cultures are negative. This was suspected on admission. Antibiotics have been discontinued (3) Chronic respiratory failure with hypoxia: Plan: Supplemental oxygen to maintain saturation greater than 90%. He is on his baseline 2 L/min (4) ESRD (end stage renal disease) on dialysis: Plan: Nephrology consultation appreciated. He normally receives hemodialysis on Wednesday and Wednesday (5) HTN (hypertension): Plan: Stable. Continue current medical management (6) Seizure disorder: Plan: Stable. Continue current medical Plan Anticipate return to [facility] tomorrJune 22 Admission and Anticipated Discharge Date Admission Date: June 18, 2023 Subjective The patient was seen while in dialysis today. He is alert and oriented in no distress. Antibiotics were discontinued yesterday, June 20, when UTI was ruled out. Current oxygen saturation 93% on 2 L which is his baseline. Will discharge back to [facility] tomorrow, June 22 Review of Systems 2 Review of Systems: Constitutional-no fever or chills ENT-no blurred vision, no double vision, no epistaxis, no sore throat Respiratory-no cough, no wheezing, no shortness of breath Cardiac-no palpitations, no chest pain, no syncope GI-no nausea, vomiting, diarrhea, melena, hematochezia -no urinary retention, no urinary incontinence, no dysuria, no hematuria Musculoskeletal-no joint pain, no muscle tenderness Skin-no bruising, no rashes, no pruritus Neuro-generalized weakness. No focal deficits Psych-no depression, no anxiety Physical Exam 2 Physical Exam: General-alert and oriented x3, no fevers, no chills HEENT-head atraumatic and normocephalic, pupils equal and reactive to light, extraocular muscles intact Neck-no lymphadenopathy or thyromegaly, trachea midline Chest-clear to auscultation percussion. No rales, wheezing or rhonchi Cardiac-regular rate and rhythm, normal S1 and S2 Abdomen-normal bowel sounds, nontender, no hepatosplenomegaly Extremities-no cyanosis, clubbing, or edema Neuro-cranial nerves II through XII intact, motor and sensory function within normal limits, strength symmetrical with generalized weakness, no focal deficits Psych-flat affect Results & Data Results & Data Vital Signs (Past 12 Hours) Vital Signs Temp Pulse Pulse Pulse Resp BP BP 06/21/23 12:00 92 H 123/71 06/21/23 11:00 93 H 124/69 06/21/23 10:30 91 H 131/70 06/21/23 10:00 95 H 144/81 H 06/21/23 09:30 94 H 118/74 06/21/23 09:00 94 H 123/81 06/21/23 08:42 87 143/76 H 06/21/23 08:37 36.7 C 89 06/21/23 08:00 06/21/23 07:12 36.7 C 85 18 157/76 H 06/21/23 02:40 36.6 C 86 20 137/69 Pulse Ox O2 Del Method O2 Flow Rate 06/21/23 12:00 06/21/23 11:00 06/21/23 10:30 06/21/23 10:00 06/21/23 09:30 06/21/23 09:00 06/21/23 08:42 06/21/23 08:37 06/21/23 08:00 Nasal Cannula 2 06/21/23 07:12 93 Nasal Cannula 2 06/21/23 02:40 91 Nasal Cannula Laboratory Results 06/21/23 07:03 06/21/23 07:03 PG Care Time/CCT Total # of Minutes Spent Total Time Spent with Patient: Total time spent is greater than 50% in coordination of care (as documented) at patient's floor/unit and/or counseling patient: Coding Level of Care Code 70553 SUB INP/OBS CARE 2/35MIN Diagnoses Generalized weakness R53.1 Urinary tract infection N39.0 Chronic respiratory failure with hypoxia J96.11 ESRD (end stage renal disease) on dialysis N18.6; Z99.2 HTN (hypertension) I10 Hypertension type: unspecified Seizure disorder G40.909 (5) HTN (hypertension) Hypertension type: unspecified Qualified Code(s): I10 - Essential (primary) hypertension
[2023-06-21] MEDS: THIAMINE HCL 100 MG in SYRINGE 9 ML IV SCH (13:14)
[2023-06-21] MEDS: PANTOprazole 40 MG in SYRINGE 0 ML IV SCH (13:14)
[2023-06-21] MEDS ORDERED: ACETAMINOPHEN 325 MG TAB PO PRN (21:06)
[2023-06-21] MEDS: AMIODARONE 200 MG TAB PO SCH (21:36)
[2023-06-22] MEDS: HEPARIN SOD 5,000 UNIT/0.5 ML VIAL SQ SCH (07:49)
[2023-06-22] MEDS: DIVALPROEX DELAY RELEASE 500 MG TAB PO SCH (07:50)
--- NOTE | 2023-06-22 10:07 | Nephrology Progress Note ---
Date of Service June 22, 2023 Assessment & Plan (1) ESRD on dialysis: Plan: Maintained on HD MWF at [facility]. Completed treatment yesterday with adequate UF and clearance. Volume status controlled. TDC functioning well. Medications appropriately dosed for IHD. Renal diet. (2) Anemia: (3) Secondary hyperparathyroidism: Plan: Renal diet. Auryxia not available while inpatient and substituted with Renvela 1 tab QAC. Sensipar held while inpatient. (4) Cirrhosis of liver: Plan: Scheduled for outpatient paracentesis later today. Admission and Anticipated Discharge Date Admission Date: June 18, 2023 Subjective No acute events overnight. Some confusion noted by RN this morning. Sisi recognized me and answered questions appropriately. No acute complaints endorsed. Tolerated HD well yesterday. Adequate UF and clearance. Review of Systems Review of Systems: All systems reviewed & are unremarkable except as noted in HPI & below Physical Exam Constitutional: no acute distress Eyes: + anicteric sclerae ENMT: Mouth: no oral mucosal abnormality and oral mucous membranes not dry Neck: normal visual inspection and trachea midline Respiratory: no respiratory distress Auscultation: lungs clear to auscultation bilaterally and + rales Cardiovascular: Rate/Rhythm: regular rate and regular rhythm Heart Sounds: normal S1 and normal S2 Extremities: + edema (improved), + vascular access device (Left IJ TDC, no erythema, tenderness and drainage.) and + AV fistula (left BC AVF with bruit) Musculoskeletal: Extremities: extremities normal to inspection Skin: normal turgor; no jaundice Neurologic: no focal motor deficits Motor/Sensory: no tremor and no asterixis Psychiatric: Orientation: alert and oriented x 3 Results & Data Vital Signs (Past 12 Hours) Vital Signs Temp Pulse Pulse Pulse Resp BP Pulse Ox 06/22/23 07:12 36.9 C 86 17 133/67 96 06/22/23 03:29 36.6 C 85 20 143/80 H 95 06/21/23 22:30 37.1 C 96 H 18 136/78 95 06/21/23 22:08 99 H O2 Del Method O2 Flow Rate 06/22/23 07:12 Nasal Cannula 2 06/22/23 03:29 Nasal Cannula 2 06/21/23 22:30 Nasal Cannula 4 06/21/23 22:08 PG Care Time/CCT Total # of Minutes Spent Total Time Spent with Patient: Total time spent is greater than 50% in coordination of care (as documented) at patient's floor/unit and/or counseling patient: Coding Level of Care Code 03429 SUB INP/OBS CARE 350MIN Diagnoses ESRD on dialysis N18.6; Z99.2 Anemia, unspecified type D64.9 Anemia type: unspecified type Secondary hyperparathyroidism N25.81 Cirrhosis of liver K74.60 (2) Anemia Anemia type: unspecified type Qualified Code(s): D64.9 - Anemia, unspecified
--- NOTE | 2023-06-22 10:35 | Electrocardiogram Report ---
Test Reason : Blood Pressure : / mmHG Vent. Rate : 101 BPM Atrial Rate : 101 BPM P-R Int : 216 ms QRS Dur : 120 ms QT Int : 374 ms P-R-T Axes : -11 014 045 degrees QTc Int : 484 ms Poor data quality, interpretation may be adversely affected Sinus tachycardia with 1st degree A-V block Inferior infarct , age undetermined Abnormal ECG When compared with ECG of 18-JUN-2023 11:31, No significant change was found Confirmed by Michael Maddox ([id number]) on 06/22/2023 10:34:51 AM Referred By: REFERRED SELF Confirmed By:Michael Maddox
[2023-06-22 11:00] LABS: BUN Creatinine Ratio 5.3 (10-20); Calcium 9.5 mg/dl (8.6-10.3); Creatinine Clr Calc Pharmacy 12.2 ml/min; Est GFR (African American) 10.3 ml/min; Est GFR (Non-African American) 8.9 ml/min; Potassium 3.8 mmol/L (3.5-5.1)
[2023-06-22] MEDS: PANTOprazole 40 MG in SYRINGE 0 ML IV SCH (11:35)
[2023-06-22] MEDS: THIAMINE HCL 100 MG in SYRINGE 9 ML IV SCH (11:35)
--- NOTE | 2023-06-22 11:54 | Discharge Summary ---
Date of Service June 22, 2023 Admission HPI Per Admitting Provider The patient is not able to contribute to HPI or ROS due to altered mentation, and information was provided by daughter, when she was at patient's bedside with the ED physician earlier The patient was brought to the emergency department by ambulance, with report by daughter that the patient has been extremely weak, having difficulty getting around in his home, and has had increased swelling in his legs, arms and face, and did not make it to dialysis this morning Admission Exam Per Admitting Provider The patient is lethargic, confused, mumbles occasionally answers to questions, normocephalic and atraumatic, lying in bed and in no acute distress. HEENT--PERRL, EOMI, mucous membranes and oropharynx dry. Neck--supple. No JVD. No bruits. Thyroid normal, trachea midline, no adenopathy. Heart--normal S1 and S2. No murmurs, rubs or gallops. Lungs--decreased breath sounds throughout, crackles at the bases. No respiratory distress, no accessory muscle use. Abdomen--normal bowel sounds and soft. Nontender. Nondistended, no hernias or masses, no organomegaly. Extremities--1+ bilateral pretibial pitting edema. Dermatologic--chronic venous stasis changes Neurologic--cranial nerves II through XII grossly intact. Rheumatologic--limited exam due to mental state Psychiatric--confused Principal Diagnosis Fall Generalized weakness Discharge Exam General: Awake, conversant. Eating lunch Heart: S1, S2/regular rate and rhythm, no murmur rubs or gallops Lungs: Clear to auscultation bilaterally. Normal effort Abdomen: Soft/nontender. Distended abdomen with ascites. Extremities: No clubbing/cyanosis. No edema Behavior: Appropriate, cooperative Discharge Data Allergies Allergy/AdvReac Type Severity Reaction Status Date / Time lisinopril AdvReac Intermediate COUGH Verified 06/18/23 15:28 Consultations 06/18/23 13:04 ED Decision to Admit Stat 06/18/23 18:29 Consult Nephrology Routine Ordered Studies 06/18/23 10:49 CT cervical spine wo con Stat CT head/brain wo con Stat 06/22/23 10:16 IR paracentesis abd w/img US Routine Hospital Course (1) Generalized weakness: Supportive care. Underlying UTI has been ruled out. OT and PT on board. He appears to be back to his baseline (2) Urinary tract infection: Ruled out. Cultures are negative. This was suspected on admission. Antibiotics have been discontinued (3) Chronic respiratory failure with hypoxia: Supplemental oxygen to maintain saturation greater than 90%. He is on his baseline 2 L/min (4) ESRD (end stage renal disease) on dialysis: Nephrology consultation appreciated. He normally receives hemodialysis on Wednesday and Wednesday (5) HTN (hypertension): Stable. Continue current medical management (6) Seizure disorder: Stable. Continue current medical Plan Return to [facility] today Patient had therapeutic paracentesis done today 06/22/2023 prior to discharge upon request by granddaughter. This was initially planned to be done today outpatient. Granddaughter states that the patient should be a DNR/DNI. I asked her to readdress this upon discharge with his PCP as he is listed as a full code here in the hospital. Total Time Total Time Spent Total Time Spent (In Minutes): 35 Discharge Plan Discharge Items Patient Disposition: Transfer Correction Fac Reason For Visit: FALL Discharge Diagnosis: Fall Generalized weakness Activity: As commented below Activity Comment: Per PT/OT recommendations Non-emergency contact: Primary Care Provider Call non-emergency contact if: you have any medication questions and your symptoms worsen Follow-up/Referrals: Maximo Taylor MD [Primary Care Provider] - Diet: Dialysis Renal and Low Sodium (2gm) Fluids: 1000ml (4 cups) Addtl Attending Provider Instructions: Advised to follow-up with PCP in 1 week Pending Studies at Discharge: No Stand-Alone Forms: [facility] Skilled Items Patient informed of condition?: Yes DNR: No Discharge Level of Care: Skilled Communicable Disease: No Discharge Prognosis: Stable Lines: None Urinary Catheter: No Medications and DC Order Prescriptions: Continued Stiolto Respimat 2.5-2.5 mcg/actuation mist 2 puff INH QAM Qty: 4 5RF docusate sodium [Colace] 100 mg capsule 400 mg PO BID polyethylene glycol 3350 [Miralax] 17 gram/dose Powder 17 g PO DAILY ipratropium-albuterol 0.5 mg-3 mg(2.5 mg base)/3 mL solution for nebulization 3 ml INHALATION QS PRN (Reason: Shortness Of Breath Or Wheezing) Rx Instructions: ALSO LOW 02 SATS epinephrine [EpiPen] 0.3 mg/0.3 mL Auto-Injector 0.3 mg IM Q4H PRN (Reason: as directed) Auryxia 210 mg iron tablet 420 mg PO TIDWMEAL Qty: 1 0RF Rx Instructions: administer with a meal divalproex 500 mg tablet,delayed release (DR/EC) 500 mg PO QAM amiodarone 200 mg Tablet 200 mg PO QPM loratadine [Wal-itin] 10 mg Tablet 10 mg PO Q2D Qty: 0 0RF trazodone 50 mg Tablet 50 mg PO HS tramadol 50 mg Tablet 50 mg PO Q6H PRN (Reason: Pain, Moderate) bisacodyl [Dulcolax (bisacodyl)] 5 mg Tablet,Delayed Release (Dr/Ec) 5 mg PO DAILY PRN (Reason: Constipation) hydroxyzine HCl 10 mg Tablet 20 mg PO TID PRN (Reason: Itching) guaifenesin [Mucinex] 1,200 mg Tablet Extended Release 12hr 1,200 mg PO BID PRN (Reason: Congestion) furosemide 40 mg tablet 40 mg PO QAM Trinidad-Ancelmo 0.8 mg Tablet 1 tab PO DAILY cinacalcet [Sensipar] 30 mg Tablet 30 mg PO QAM acetaminophen [Tylenol] 325 mg Tablet 650 mg PO Q4 MDD 3 GRAMS APAP/24 HOURS PRN (Reason: Fever Or Pain) thiamine HCl (vitamin B1) 100 mg tablet 100 mg PO QAM cholecalciferol (vitamin D3) 125 mcg (5,000 unit) capsule 5,000 unit PO QPM Rx Instructions: after supper famotidine 20 mg Tablet 20 mg PO DIRECTED Rx Instructions: TAKES DAILY ON WEDNESDAY, WEDNESDAY, & WEDNESDAY EVENING AFTER DIALYSIS. melatonin 5 mg Tablet 15 mg PO HS Discontinued cephalexin 500 mg capsule 500 mg PO TID Rx Instructions: End 06/19/2023 Discharge Orders: Discharge Order (Routine); Ordered 06/22/23 Ordered By: Amber Aranda Admission Data Admit Date/Time: 06/18/23 15:52 Attending Provider: Amber Aranda Admit Provider: Solomon Espinosa Primary Care Provider: Maximo Taylor Other Providers: Solomon Espinosa; Radha Romo; [facility] Other Interventions: Discharge Summary Assessment (RN) Last Done: 06/22/23 14:20 Coding Level of Care Code 12862 INP/OBS DISCH >30 MIN Diagnoses Generalized weakness R53.1 Urinary tract infection N39.0 Chronic respiratory failure with hypoxia J96.11 ESRD (end stage renal disease) on dialysis N18.6; Z99.2 HTN (hypertension) I10 Hypertension type: unspecified Seizure disorder G40.909
--- NOTE | 2023-06-22 13:46 | Ultrasound Report ---
ULTRASOUND-GUIDED PARACENTESIS CLINICAL HISTORY: Ascites PROCEDURE: Procedure and risks were explained. Informed consent was obtained. A final timeout was com pleted. The abdomen was prepped and draped in sterile fashion. 1% buffered lidocaine was utilized for skin anesthesia. Utilizing ultrasound guidance, a 5 Czech safety centesis catheter was advanced into the left lower q uadrant pocket of ascites. Ultrasound images were obtained. A total of 4.8 L of ascites fluid was rem jacqui and discarded. The catheter was removed and Band-Aid applied. The patient tolerated the procedur e well. Vital signs will be monitored on the floor. IMPRESSION: Ultrasound-guided paracentesis as above. Performed, dictated, and signed by Leonides Gross PA-C; to be co-signed by Dr. Yunior Arroyo. Electronically signed by: Yunior Arroyo M.D. 06/22/2023 3:03 PM
== END 2023-06-22 15:15 | DRG 947 ==
LOC: ED 10:23 → 2S 15:52 → SUATTDRO 15:52 → 2S 19:32

== ENCOUNTER 2023-09-26 17:36 | Inpatient (IN) ==
--- OUTSIDE RECORDS SUMMARY | 2023-09-26 17:46 | External Medical Summary ---
Author Name Unknown Address Unknown Organization K01:[facility] [place], [place] - [address] [place] [address] Laboratory Report Ordering Provider Test Date Status SUSHANT JENKINS 09/22/2023 05:55:00 Final Deficient: <20 ng/mL
Ins ufficient: 20-29 ng/mL
Recommended/Optimum:30-50 ng/mL

Vitamin D intoxication is rare. If suspicious of Vitamin D toxicity, evaluation of serum Calcium and PTH is recommended. Observation Date Value Abnormality Reference (Units ) Status 25-OH Vitamin D total 09/22/2023 05:55:00 58 >19 (ng/mL) Final Performing Location LABORATORY [facility] - [address] [place] [id number]
--- OUTSIDE RECORDS SUMMARY | 2023-09-26 17:46 | External Medical Summary | Summary of Care ---
Author Name Unknown Organization [facility] Address [address] [facility] [place] [address] Phone [phone] Care Team Providers Care Store Receiving Clerk Name Role Phone Maximo Taylor MD Primary Care Provide r Encounter Details Date Type Department Care Team (Late st Contact Info) Description 09/22/2023 Orders Only Lab Mobile [facility] [address] [place] [id number] Maximo Taylor MD [address] [place] [address] [place] [address] Ascites*; Cirrhosis of liver (HCC); HLD (hyperlipidemia) Allergies Active Allergy Reactions Criticality Noted Date Comments Lisinopril 04/09/2023 documented as of this encounter (statuses as of 09/22/2023) Medications Medication Sig Dispensed Refills Start Date [...] by mouth at bedtime. 0 01/21/2023 Active [place] Caps 1 MG Oral Capsule Take 1 [...] after paracentesis 100 mL 0 04/09/2023 Active Furosemide 40 MG Oral Tablet (Lasix) Take 1 Tablet by mouth in the morning. 0 05/11/2023 Active traMADol HCl 50 MG Oral Tablet (Ultram) Take 1 Tablet by mouth every 6 hours as needed for Pain, Moderate or Pain, Severe. 40 Tablet 0 06/18/2023 Active Sodium Zirconium Cyclosilicate 5 GM Oral Packet (Lokelma) 1 packet by mouth daily on non-dialysis days (Wednesday, , Sat and Sun 0 07/21/2023 Active documented as of this encounter (statuses as of 09/22/2023) Active Problems Problem Noted Date Diagnosed Date Moderate pulmonary hypertension 09/14/2023 Severe mitral regurgitation by prior echocardiog danielito 09/14/2023 Age-related cataract of both eyes 08/26/2023 Basal cell carcinoma (BCC) of skin of nose 07/21 Hx of nonmelanoma skin cancer 07/19/2023 Overview: basal cell carcinoma (L nare 07/14) Secondary esophageal varices with bleeding 06/29 Hanna's esophagus without dysplasia 05/21/2023 Adenomatous duodenal [...] as of this encounter (statuses as of 09/22/2023) Immunizations Name Administration Dates Next Due Seasonal [...] Care Team (Late st Contact Info) Description 09/22/2023 5:10 AM EDT Laboratory Lab Mobile Phlebotomy [facility] [address] [place] [address] [place] [address] Arrived 02/14/2024 8:00 AM EDT Office Visit Hepatology, [facility] [address] [place] [address] Latoya Selby DO [address] [place] [address] Scheduled Orders Name Type Priority Associated Diagnoses Orde r Schedule 25-HYDROXY VITAMIN D Lab Routine Ascites Cirrhosis of liver (HCC) HLD (hyperlipidemia) Expected: 09/22/2023, Expires: 09/21/2024 LIPID PANEL WITHOUT DIRECT LDL Lab Routine Ascites Cirrhosis of liver (HCC) HLD (hyperlipidemia) Expected: 09/22/2023, Expires: 09/21/2024 TSH WITH FREE T4 IF INDICATED Lab Routine Ascites Cirrhosis of liver (HCC) HLD (hyperlipidemia) Expected: 09/22/2023, Expires: 09/21/2024 Health Maintenance Due Date Last Done Comments Hanna's Esophagus Surveilance 1950 Depression Screening 1962 O2 ASSESSMENT COMPLETED IN PAST YEAR FOR COPD 1968 Cologuard 1995 Fecal Occult Blood Test 1995 Sigmoidoscopy 1995 LUNG CANCER SCREENING - USE SMARTSET 96602 2000 Hepatitis B (1 of 3 - Risk 3-dose series) 2010 AAA Screening 2015 *COPD SEVERITY VERIFIED BY PFT 01/23/2023 *CXR OR CT FOR COPD EVER 01/23/2023 COVID-19 Vaccine (3 - season) 2023 10/18/2020, 09/19/2020 Influenza Vaccine (FLU shot) (Season Ended) 2024 04/02/2023, 03/30/2018, 04/19/2017, Additional history exists DTaP,Tdap,and Td Vaccines (2 - Td or Tdap) 09/28/2026 09/28/2016 Colonoscopy 05/20/2033 05/20/2023 Colorectal Cancer Screening 05/20/2033 Pneumococcal Vaccine: 65+ Years Completed 02/08/2019, 04/19/2017 Zoster Vaccines Completed 04/10/2022, 10/02/2021 Alpha-1 Antitrypsin Completed 04/09/2023 GARDASIL-HPV IMMUNIZATION SERIES Aged Out No longer eligible based on patient's age to complete this topic MENINGOCOCCAL (MENACTRA/MENVEO) Aged Out No longer eligible based on patient's age to complete this topic documented as of this encounter Medical Devices Not on filedocumented as of this encounter Visit Diagnoses Diagnosis Ascites- Primary Other ascites Cirrhosis of liver (HCC) Cirrhosis of liver without mention of alcohol HLD (hyperlipidemia) Other and unspecified hyperlipidemia documented in this encounter Care Teams Store Receiving Clerk Relationship Specialty Start Date End Date Maximo Taylor MD [address] [place], [place] [address] [id number] PCP - General Family Medicine 05/04/23 documented as of this encounter
--- NOTE | 2023-09-26 17:47 | Emergency Department Note ---
Impression & Plan Acute hypoxemic respiratory failure, ESRD on dialysis, Multifocal pneumonia, Sepsis ED Provider Note HISTORY OF PRESENT ILLNESS: Patient is a 73-year-old male presenting in respiratory distress. Patient presents from a care facility. He reportedly got up to go to the bathroom and was not wearing his supplemental 2 L nasal cannula oxygen. By the time he got back to his recliner, he was very tachypneic and using accessory muscles to breathe. His saturations were in the 80s. His dining server increased his oxygen to 5 L nasal cannula and his saturations remained in the mid to low 80s. They called 911 given patient's respiratory distress. On EMS arrival, the patient had saturations of 53% on 6 L nasal cannula. A DuoNeb was given by caretakers prior to EMS arrival. When EMS arrived, they transition the patient to CPAP and gave him another DuoNeb treatment. His saturations improved with CPAP. On arrival to the ER, patient reports he became acutely short of breath earlier today and confirmed the above story. No reported fevers. Patient is an ESRD patient and receives Wednesday/Wednesday/Wednesday dialysis. He denies any chest pain with the shortness of breath. He last received his dialysis 2 days ago and completed a full session. ROS: as above PHYSICAL EXAM: Constitutional: Patient appears in mild distress. HENT: Head: Normocephalic and atraumatic. Eyes: EOMI, PERRL Mouth/Throat: Mucous membranes moist. Neck: Trachea midline. Neck supple. Cardiovascular: Tachycardic with regular rhythm. No murmurs, rubs or gallops. Intact distal pulses. Pulmonary/Chest: Patient is on CPAP. Coarse breath sounds in the bilateral lung bases. Very have expiratory wheezes in the bilateral upper lung munson. Abdominal: Abdomen soft, no tenderness, rebound or guarding. Musculoskeletal: No edema, tenderness or deformity noted. Fistula in LUE Skin: Warm and dry. No rash, erythema, pallor or cyanosis Neurological: Alert. CN II-XII grossly intact, moving all extremities equally and fully. MDM: - Vitals signs showed hypertension and tachycardia. Patient arrives wearing CPAP. He was transition to BiPAP in the emergency department and is saturating 94 to 96% on BiPAP. - History obtained via EMS, given patient's respiratory distress. History as above. - Chronic conditions affecting care: ESRD (on M/W/F HD); paroxysmal Afib; HTN; COPD; BPH; Alzheimer's dementia - Differential diagnoses include, but are not limited to: Congestive heart failure; acute coronary syndrome; COPD/asthma exacerbation; pulmonary edema; pulmonary embolism; pneumonia; pneumothorax; viral syndrome - Order placed for continuous cardiac monitoring. At this time, monitor showed rate of 101 bpm with normal sinus rhythm, per my interpretation. - External medical records reviewed. Discharge summary dated 06/22/2023 was reviewed. Patient was admitted to the hospital at that time due to generalized weakness secondary to a UTI. - EKG interpreted by myself showed normal sinus rhythm. Rate tachycardic at 105 bpm. QT 410. No acute ischemic changes. - Laboratory workup interpreted by myself showed leukocytosis (WBC 11.31) with left shift; slight hyponatremia (Na 133); ESRD (Cr 6.22); elevated BUN (66); elevated troponin (27.2); elevated BNP (2408); normal procalcitonin - Blood cultures obtained - CXR showed multifocal pneumonia, per my interpretation. - Patient started on IV zosyn. - Viral respiratory panel negative. - Patient meets sepsis criteria at this time. However, no fluid resuscitation was initiated, given patient's history of ESRD. - Discussion was had with supervisor case loading about patient's case and need for admission - Hospitalist consulted for admission - [facility] for further evaluation and management. I have personally spent 36 minutes of critical care time in the direct management of this patient. This includes bedside care, interpretation of diagnostic studies, and testing, discussion with consultants, patient, and family members, and other required patient management activities. This 36 minutes is in excess of all separately billable procedures. ASSESSMENT AND PLAN: Diagnosis: acute hypoxic respiratory failure; sepsis; multifocal pneumonia; ESRD on dialysis Plan: admit Past Med/Surg History Medical History (Updated 09/26/23 @ 19:51 by Missy Gutierrez MD) Encounter for pre-operative examination History of home oxygen therapy 2L oxygen prn sat <90% per med record Limb alert care status LUE AV fistula LUE Hx MRSA infection ~02/2023, nares>per med record Hx of chest pain per med record from [facility] Alcoholic cirrhosis of liver with ascites Abnormal levels of other serum enzymes Gastrointestinal hemorrhage, unspecified End stage renal disease Unspecified intestinal obstruction, unspecified as to partial versus complete obstruction Chronic respiratory failure with hypoxia Insomnia Unspecified abnormalities of gait and mobility Low back pain, unspecified Unspecified fall, initial encounter Pain in unspecified wrist Fluid overload Acute respiratory failure with hypoxia Metabolic encephalopathy Epilepsy, unspecified, intractable, without status epilepticus Fall Bladder mass Cirrhosis of liver Ascites Confusion Ruptured middle cerebral artery aneurysm Seizure disorder Myoclonic jerking Bradycardia History of marijuana use daily Hx of atrial flutter 06/2021, hospitalized w/pneumonia for almost 3 weeks; dx atrial flutter- currently amiodarone; f/u dr. ad[place], [place] Paroxysmal atrial flutter Vitamin D deficiency Hypercalcemia Diverticulosis PAF (paroxysmal atrial fibrillation) Gout hx Tremor of both hands Alzheimer disease Hypertension On home oxygen therapy 2L N/C at hs Low back pain Hemorrhoids "not currently flared" Benign neoplasm of skin of nose removed once COPD (chronic obstructive pulmonary disease) HTN (hypertension) Anemia Intracranial hemorrhage 2012 Secondary hyperparathyroidism (of renal origin) Benign prostate hyperplasia Polycystic kidney disease, adult type (09/03/12) Surgical History Hx of right cataract extraction S/P dialysis catheter insertion 09/2022, [facility] History of esophagogastroduodenoscopy (EGD) Hx of cardiac cath 07/2022, [facility], stents History of abdominal paracentesis multiple, most recent 08/26/23 Status post creation of arteriovenous fistula LUE History of colonoscopy History of tooth extraction all teeth History of cerebral aneurysm repair 2012 [facility] [place]by--clip in place; clip IS MRI COMPATIBLE Family History Mother , age 65 of cancer Cancer Father , age 60 from a tree falling on him No problems noted. Other No family history of adverse response to anesthesia Denies family history of Myocardial infarction Social History Smoking Status: Former smoker Tobacco Type: Cigarettes Age Started Using Tobacco: 16; Age Quit Using Tobacco: 71; packs per day: 1; Cigarettes Per Day: 1 pack; Preferred Language: Spanish Communication Ability: Effective Communication Ability Comment: "able to sign own consents" Audit Senior Associate Required: No Beliefs That Will Affect Care: None marital status: Single Current Living Situation: Retirement Current Living Situation Comment: [facility] How many Children do You have: 1 Feels Safe at Home: Yes Assistive Devices: Nebulizer and Other Allergies Allergies Allergy/AdvReac Type Severity Reaction Status Date / Time lisinopril AdvReac Intermediate COUGH Verified 09/26/23 18:24 Home Meds Home Medications Medication Instructions Recorded Confirmed polyethylene glycol 3350 17 17 g PO DAILY Constipation 06/30/21 09/26/23 gram/dose oral powder (Miralax) docusate sodium 100 mg capsule 400 mg PO BID 07/31/21 09/26/23 (Colace) cinacalcet 30 mg tablet (Sensipar) 30 mg PO QAM 03/27/22 09/26/23 epinephrine 0.3 mg/0.3 mL 0.3 mg IM Q4H PRN Anaphylaxis 08/29/22 09/26/23 injection, auto-injector (EpiPen) ipratropium 0.5 mg-albuterol 3 mg 3 ml inhalation Q4H PRN Shortness 08/29/22 09/26/23 (2.5 mg base)/3 mL nebulization Of Breath Or Wheezing soln amiodarone 200 mg tablet 200 mg PO QPM 11/17/22 09/26/23 divalproex 500 mg tablet,delayed 500 mg PO QAM 11/17/22 09/26/23 release cholecalciferol (vitamin D3) 125 5,000 unit PO QPM 01/05/23 09/26/23 mcg (5,000 unit) capsule thiamine HCl (vitamin B1) 100 mg 100 mg PO QAM 01/05/23 09/26/23 tablet guaifenesin 1,200 mg tablet, 1,200 mg PO BID PRN Congestion 02/18/23 09/26/23 extended release 12 hr (Mucinex) tramadol 50 mg tablet 50 mg PO Q6H PRN Pain, Moderate 02/18/23 09/26/23 trazodone 50 mg tablet 50 mg PO HS 02/18/23 09/26/23 famotidine 20 mg tablet 20 mg PO DIRECTED 04/27/23 09/26/23 melatonin 5 mg tablet 15 mg PO HS 04/27/23 09/26/23 furosemide 40 mg tablet 40 mg PO QAM 06/18/23 09/26/23 vitamin B complex-vitamin C-folic 1 tab PO DAILY 06/18/23 09/26/23 acid 0.8 mg tablet ([place]-Ancelmo) acetaminophen 325 mg tablet 325 mg PO Q4H PRN PAIN/FEVER 08/31/23 09/26/23 ferric citrate 210 mg iron tablet 420 mg PO TIDM 08/31/23 09/26/23 (Auryxia) lidocaine-prilocaine 2.5 %-2.5 % 1 applic topical UD 08/31/23 09/26/23 topical cream ondansetron 4 mg disintegrating 4 mg PO Q6H PRN Nausea And Vomiting 08/31/23 09/26/23 tablet sodium zirconium cyclosilicate 5 5 g PO DIRECTED 08/31/23 09/26/23 gram oral powder packet (Lokelma) ketorolac 0.5 % eye drops 1 drp OPL QAM 09/26/23 09/26/23 polyvinyl alcohol-povidone (PF) 1 drp OPB QID PRN Dry Eyes 09/26/23 09/26/23 1.4 %-0.6 % eye drops in a dropperette (Refresh Classic (PF)) prednisolone acetate 1 % eye 1 drp OPL QID 09/26/23 09/26/23 drops,suspension protein supplement 30 ea PO BIDM 09/26/23 09/26/23 white petrolatum (Vaseline jelly, 1 applic topical DAILY 09/26/23 09/26/23 topical) Previous Rx's Medication Instructions Recorded tiotropium 2.5 mcg-olodaterol 2.5 2 puff inhalation QAM #4 grams 02/18/21 mcg/actuation mist for inhalation (Stiolto Respimat) loratadine 10 mg tablet (Wal-itin) 10 mg PO Q2D #0 tabs 12/10/22 Results & Data (ED) Vital Signs Vital Signs - 24 hr 09/26/23 17:40 09/26/23 17:40 09/26/23 17:42 Temperature 36.8 C Temperature Source Axillary Pulse Rate 103 H 105 H Pulse Rate from SpO2 Sensor 105 H Pulse Rhythm Regular Pulse Strength Normal Respiratory Rate 24 25 H Respiratory Effort / Characteristics Labored Short of Breath Blood Pressure 175/98 H Blood Pressure Mean 123 Blood Pressure Position Sitting Pulse Oximetry 96 96 Oxygen Delivery Method CPAP Fraction of Inspired Oxygen Sepsis Recent Fever Within 48 Hours No Sepsis New/Unexplained Change in Mental Status No Sepsis Action Taken by Nursing Physician Notified 09/26/23 17:47 09/26/23 17:50 09/26/23 17:50 Temperature Temperature Source Pulse Rate 104 H 106 H 102 H Pulse Rate from SpO2 Sensor 103 H 102 H Pulse Rhythm Pulse Strength Respiratory Rate 24 25 H 23 Respiratory Effort / Characteristics Spontaneous Short of Breath Blood Pressure 175/98 H Blood Pressure Mean 123 Blood Pressure Position Pulse Oximetry 96 95 95 Oxygen Delivery Method BiPAP Fraction of Inspired Oxygen 50 Sepsis Recent Fever Within 48 Hours Sepsis New/Unexplained Change in Mental Status Sepsis Action Taken by Nursing 09/26/23 17:56 09/26/23 17:58 09/26/23 19:00 Temperature Temperature Source Pulse Rate 101 H 91 H Pulse Rate from SpO2 Sensor 89 Pulse Rhythm Pulse Strength Respiratory Rate 18 Respiratory Effort / Characteristics Blood Pressure 154/82 H Blood Pressure Mean 106 Blood Pressure Position Pulse Oximetry 95 97 Oxygen Delivery Method BiPAP BiPAP Fraction of Inspired Oxygen 50 Sepsis Recent Fever Within 48 Hours Sepsis New/Unexplained Change in Mental Status Sepsis Action Taken by Nursing 09/26/23 19:15 09/26/23 19:15 09/26/23 19:20 Temperature Temperature Source Pulse Rate 91 H 90 Pulse Rate from SpO2 Sensor 91 H 90 Pulse Rhythm Pulse Strength Respiratory Rate 17 20 Respiratory Effort / Characteristics Blood Pressure 157/76 H 157/76 H Blood Pressure Mean 86 103 Blood Pressure Position Pulse Oximetry 96 97 Oxygen Delivery Method Fraction of Inspired Oxygen Sepsis Recent Fever Within 48 Hours Sepsis New/Unexplained Change in Mental Status Sepsis Action Taken by Nursing 09/26/23 19:30 09/26/23 19:45 Temperature Temperature Source Pulse Rate 88 87 Pulse Rate from SpO2 Sensor 88 88 Pulse Rhythm Pulse Strength Respiratory Rate 16 16 Respiratory Effort / Characteristics Blood Pressure 158/88 H 154/87 H Blood Pressure Mean 111 109 Blood Pressure Position Pulse Oximetry 97 96 Oxygen Delivery Method BiPAP BiPAP Fraction of Inspired Oxygen Sepsis Recent Fever Within 48 Hours Sepsis New/Unexplained Change in Mental Status Sepsis Action Taken by Nursing Laboratory Data 09/26/23 17:53 09/26/23 17:53 Lab Results 09/26/23 09/26/23 Range/Units 17:53 18:02 WBC 11.31 H (4.8-10.8) K/ul RBC 3.83 L (4.70-6.10) M/uL Hgb 10.8 L (14.0-18.0) g/dl Hct 36.1 L (42.0-52.0) % MCV 94.3 (80.0-100.0) fL MCH 28.2 (25.0-34.0) pg MCHC 29.9 L (32.0-36.0) g/dL RDW Std Deviation 67.3 H (36.4-46.3) fL RDW Coeff of Giovana 19.3 H (11.5-14.5) % Plt Count 224 (130-400) K/uL MPV 9.5 (9.4-12.4) fL Immature Gran % (Auto) 0.7 % Neut % (Auto) 82.8 % Lymph % (Auto) 6.7 % Cedar % (Auto) 7.6 % Eos % (Auto) 1.6 % Baso % (Auto) 0.6 % Neut # (Auto) 9.36 H (1.40-6.50) K/uL Lymph # (Auto) 0.76 L (1.20-3.40) K/uL Cedar # (Auto) 0.86 H (0.11-0.59) K/uL Eos # (Auto) 0.18 (0.00-0.50) K/uL Baso # (Auto) 0.07 (0.00-0.20) K/uL Immature Gran # (Auto) 0.08 (0.01-0.20) K/uL VBG pH 7.33 L (7.36-7.41) VBG pCO2 70 H (38-50) mmHg VBG pO2 57 mmHg VBG HCO3 37 mmol/L VBG O2 Saturation 87.0 % VBG Base Excess 8.3 mEq/L Sodium 133 L (136-145) mmol/L Potassium 4.4 (3.5-5.1) mmol/L Chloride 94 L (98-107) mmol/L Carbon Dioxide 31 (21-32) mmol/L Anion Gap 8 (3-11) BUN 66 H (6-23) mg/dl Creatinine 6.22 H* (0.6-1.4) mg/dl Est Cr Clr Drug Dosing 11.6 ml/min Est GFR ( Amer) 9.5 ml/min Est GFR (Non-Af Amer) 8.2 ml/min BUN/Creatinine Ratio 10.6 (10-20) Glucose 154 H (70-99(Fasting)) mg/dl Lactate 0.8 (0.4-2.0) mmol/L Calcium 9.4 (8.6-10.3) mg/dl Magnesium 2.1 (1.7-2.4) mg/dl Total Bilirubin 0.5 (0.2-1.0) mg/dl Direct Bilirubin 0.2 (0-0.2) mg/dl AST 13 (13-39) U/L ALT 7 (7-52) U/L Alkaline Phosphatase 82 (34-104) U/L Troponin I High Sens 27.2 H (0-20) pg/ml B-Natriuretic Peptide 2408 H (0-100) pg/ml Total Protein 6.9 (6.0-8.3) gm/dl Albumin 3.6 (3.4-5.0) gm/dl Procalcitonin 0.36 (0-0.5) ng/ml Adenovirus (PCR) Not Detected (NotDetected) B. pertussis DNA (PCR) Not Detected (NotDetected) B.parapertussis DNA PCR Not Detected (NotDetected) C. pneumoniae DNA (PCR) Not Detected (NotDetected) Coronavirus OC43 (PCR) Not Detected (NotDetected) Coronavirus HKU1 (PCR) Not Detected (NotDetected) Coronavirus 229E (PCR) Not Detected (NotDetected) SARS-CoV-2 (PCR) Not Detected (NotDetected) Coronavirus NL63 (PCR) Not Detected (NotDetected) Human Metapneumovir PCR Not Detected (NotDetected) Influenza Type A (PCR) Not Detected (NotDetected) Influenza Type B (PCR) Not Detected (NotDetected) M. pneumoniae (PCR) Not Detected (NotDetected) Parainfluenza 1 (PCR) Not Detected (NotDetected) Parainfluenza 2 (PCR) Not Detected (NotDetected) Parainfluenza 3 (PCR) Not Detected (NotDetected) Parainfluenza 4 (PCR) Not Detected (NotDetected) RSV (PCR) Not Detected (NotDetected) Entero/Rhino (PCR) Not Detected (NotDetected) Administered Medications Discontinued Medications Piperacillin Sod/Tazobactam Sod (Zosyn) 4.5 gm in 100 mls @ 200 mls/hr IV NOW ONE Stop: 09/26/23 19:02 Last Infusion: 09/26/23 19:20 Dose: Infused Documented By: Admin: 09/26/23 18:45 Dose: 200 mls/hr Documented By: ARS Methylprednisolone (Methylprednisolone 125 Mg/2 Ml Vial) Confirm Administered Dose 125 mg .ROUTE .STK-MED ONE Stop: 09/26/23 17:41 Last Admin: 09/26/23 17:55 Dose: Not Given Documented By: NH Methylprednisolone (Methylprednisolone 125 Mg/2 Ml Vial) 60 mg IV NOW STA Stop: 09/26/23 17:45 Last Admin: 09/26/23 17:55 Dose: 60 mg Documented By: NH Imaging Data Radiologist's Impression: Chest X-Ray 09/26/23 17:44 XR chest 1V portable CLINICAL HISTORY: Sepsis TECHNIQUE: Single frontal radiograph of the chest was obtained. Comparison: Comparison is made to chest radiograph 06/18/2023 FINDINGS: No lines and tubes are seen. Cardiomegaly is noted. The aortic arch is calcified. Multifocal airspace opacities are seen. This is superimposed upon a background of interstitial fibrotic change. There may be small bilateral pleural effusions. IMPRESSION: 1. Airspace opacities compatible with multifocal pneumonia. There is redemonstration of cardiomegaly and fibrotic changes. Follow-up to resolution is recommended. 2. Small bilateral pleural effusions. ACT 112: Negative or not required by law. Electronically signed by: Arthur Taylor M.D. 09/26/2023 6:16 PM Discharge Plan Visit Data Chief Complaint: Respiratory Distress ED Provider: Missy Gutierrez Discharge Problem: Acute hypoxemic respiratory failure, ESRD on dialysis, Multifocal pneumonia, Sepsis Forms Stand Alone Forms: [facility] NPTV Prescriptions Prescriptions: No Action Stiolto Respimat 2.5-2.5 mcg/actuation mist 2 puff INH QAM Qty: 4 5RF docusate sodium [Colace] 100 mg capsule 400 mg PO BID polyethylene glycol 3350 [Miralax] 17 gram/dose Powder 17 g PO DAILY ipratropium-albuterol 0.5 mg-3 mg(2.5 mg base)/3 mL solution for nebulization 3 ml INHALATION Q4H PRN (Reason: Shortness Of Breath Or Wheezing) Rx Instructions: ALSO LOW 02 SATS epinephrine [EpiPen] 0.3 mg/0.3 mL Auto-Injector 0.3 mg IM Q4H PRN (Reason: Anaphylaxis) divalproex 500 mg tablet,delayed release (DR/EC) 500 mg PO QAM amiodarone 200 mg Tablet 200 mg PO QPM loratadine [Wal-itin] 10 mg Tablet 10 mg PO Q2D Qty: 0 0RF trazodone 50 mg Tablet 50 mg PO HS tramadol 50 mg Tablet 50 mg PO Q6H PRN (Reason: Pain, Moderate) guaifenesin [Mucinex] 1,200 mg Tablet Extended Release 12hr 1,200 mg PO BID PRN (Reason: Congestion) furosemide 40 mg tablet 40 mg PO QAM Trinidad-Ancelmo 0.8 mg Tablet 1 tab PO DAILY cinacalcet [Sensipar] 30 mg Tablet 30 mg PO QAM thiamine HCl (vitamin B1) 100 mg tablet 100 mg PO QAM cholecalciferol (vitamin D3) 125 mcg (5,000 unit) capsule 5,000 unit PO QPM Rx Instructions: after supper, if ok with dialysis famotidine 20 mg Tablet 20 mg PO DIRECTED Rx Instructions: TAKES DAILY ON WEDNESDAY, WEDNESDAY, & WEDNESDAY EVENING AFTER DIALYSIS. melatonin 5 mg Tablet 15 mg PO HS acetaminophen 325 mg Tablet 325 mg PO Q4H MDD 3 GRAMS APAP/24 HOURS PRN (Reason: PAIN/FEVER) lidocaine-prilocaine 2.5-2.5 % Cream 1 applic topical UD Rx Instructions: apply to fistula site 1 hour prior to dialysis, wed/wed/wed. ondansetron 4 mg Tablet,Disintegrating 4 mg PO Q6H PRN (Reason: Nausea And Vomiting) Lokelma 5 gram Powder In Packet 5 g PO DIRECTED Rx Instructions: every other day on NON-DIALYSIS days-//sat/sun. Auryxia 210 mg iron tablet 420 mg PO TIDM Rx Instructions: administer with a meal ketorolac 0.5 % drops 1 drp OPL QAM Rx Instructions: STARTED 09/23/23 FOR 4 WEEKS, ENDS 10/23/23. WAIT 5 MINUTES BETWEEN EYE DROPS. prednisolone acetate 1 % drops,suspension 1 drp OPL QID Rx Instructions: WAIT 5 MINUTES BETWEEN DROPS. STARTED 09/23/23 FOR 4 WKS, ENDS 10/23/23 white petrolatum [Vaseline] Gel 1 applic TOPICAL DAILY Rx Instructions: WASH AREA ON LEFT SIDE OF NOSE, PAT DRY, THEN APPLY THIN LAYER ON DRESSING AND APPLY TO AREA DAILY Refresh Classic (PF) 1.4-0.6 % Dropperette 1 drp OPB QID PRN (Reason: Dry Eyes) Liquacel Liquid 30 ea PO BIDM Rx Instructions: 30 ML BIDM Referrals Referrals: Maximo Taylor MD [Primary Care Provider] -
--- OUTSIDE RECORDS SUMMARY | 2023-09-26 17:47 | External Medical Summary ---
Author Name Unknown Address Unknown Organization [id number]:[facility] [place] [address] [place] [address] Laboratory Report Ordering Provider Test Date Status SUSHANT JENKINS 09/22/2023 05:55:00 Final Observation Date Value Abnormality Reference (Units ) Status TSH 09/22/2023 05:55:00 2.61 0.27-4.20 (uIU/mL) Final Performing Location [facility] - [address] [place] [address]
--- OUTSIDE RECORDS SUMMARY | 2023-09-26 17:47 | External Medical Summary | Summary of Care ---
Author Name Unknown Organization [facility] Address [address] [place] [address] Phone [phone] Care Team Providers Care [place] Supervisor Name Role Phone Maximo Taylor MD Primary Care Provide r Reason for Visit * Reason Onset Date Comments [facility] Visit 09/21/2023 Regulatory Encounter Details Date Type Department Care Team (Latest Contact Info) Description 09/21/2023 6:30 AM EDT [facility] Visit [facility] [address] [place] [address] Brianna Orozco PA-C [address], [place] [id number] ESRD on dialysis (HCC)*; Anemia in chronic kidney disease, on chronic dialysis (HCC); Ascites due to alcoholic cirrhosis (HCC); 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.] by mouth at bedtime. 0 01/21/2023 Active Jackson Caps 1 MG Oral Capsule Take 1 [...] as of this encounter (statuses as of 09/21/2023) Active Problems Problem Noted Date Diagnosed Date [...] as of this encounter (statuses as of 09/21/2023) Immunizations Name Administration Dates Next Due Seasonal [...] Care Team (Late st Contact Info) Description 02/14/2024 8:00 AM EDT Office Visit Hepatology, [facility] [address] [place] [address] [address] Latoya [place] [address] [place] [address] Health Maintenance Due Date Last Done Comments Hanna's Esophagus Surveilance 1950 Depression Screening 1962 O2 ASSESSMENT COMPLETED IN PAST YEAR FOR COPD 1968 Cologuard 1995 Fecal Occult Blood Test 1995 Sigmoidoscopy 1995 LUNG CANCER SCREENING - USE SMARTSET 53109 2000 Hepatitis B (1 of 3 - [...] (HCC) Ascites due to alcoholic cirrhosis (HCC) 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) Severe mitral regurgitation by prior echocardiogram Mitral valve disorders 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 behavioral disturbance, psychotic disturbance, mood disturbance, or anxiety (HCC) Secondary esophageal varices with bleeding (HCC) Esophageal varices with bleeding in diseases classified elsewhere PAF (paroxysmal atrial fibrillation) (HCC) Atrial fibrillation Pneumonia of both lower lobes due to infectious organism Status post cataract extraction, unspecified laterality documented in this encounter Care Teams [place] Supervisor Relationship Specialty Start Date End Date Maximo Taylor MD [address] [place] [address] [id number] PCP - General Family Medicine 05/04/23 documented as of this encounter
--- OUTSIDE RECORDS SUMMARY | 2023-09-26 17:47 | External Medical Summary ---
Author Name Unknown Address Unknown Organization K01:[facility] [place] [address] [facility] [place] [id number] Laboratory Report Ordering Provider Test Date Status SUSHANT JENKINS 09/22/2023 05:55:00 Final Observation Date Value Abnormality Reference (Units ) Status Triglyceride 09/22/2023 05:55:00 42 <=174 ( mg/dL) Final Triglyceride Reference Range s (mg/dL):
<150 Acceptable
150-174 Borderline high
175-499 High
>=500 Very high Cholesterol 09/22/2023 05:55:00 109 <200 (mg /dL) Final Total Cholesterol Reference Ranges (mg/dL):
<200 Desirable
200-239 Borderline high
>=240 High HDL 09/22/2023 05:55:00 49 >39 (mg/dL ) Final HDL Cholesterol Reference Ra nges (mg/dL):
>=60 High (Desirable)
<50 Low (Undesirable) For Females
<40 Low (Undesirable) For Males NON-HDL CHOLESTEROL 09/22/2023 05:55:00 60 <=159 (mg/dL) Final Non-HDL Cholesterol Referenc e Range (mg/dL):
<100 Target level for high risk ASCVD patient
<130 Optimal for general population
130-159 Near optimal for general population
160-189 Borderline High
190-219 High
>=220 Very High LDL, (calculated) 09/22/2023 05:55:00 52 <= 129 (mg/dL) Final LDL Cholesterol Reference Ra nges (mg/dL):
<70 Target level for high risk ASCVD patient
<100 Optimal for general population
100-129 Near optimal for general population
130-159 Borderline high
160-189 High
>=190 Very high Performing Location [facility] [place] [address] [facility] [address]
[2023-09-26] MEDS: methylPREDNISolone 125 MG/2 ML VIAL ONE (17:55)
[2023-09-26] MEDS: methylPREDNISolone 125 MG/2 ML VIAL IV STA (17:55)
[2023-09-26 18:03] LABS: Base Excess VBG 8.3 mEq/L; HCO3 VBG 37 mmol/L; PCO2 VBG 70 mmHg (38-50); PO2 VBG 57 mmHg; pH VBG 7.33 (7.36-7.41)
[2023-09-26 18:14] LABS: Basophils # (auto) 0.07 K/uL (0.00-0.20); Basophils % (auto) 0.6 %; Eosinophils # (auto) 0.18 K/uL (0.00-0.50); Eosinophils % (auto) 1.6 %; Hematocrit (blood only) 36.1 % (42.0-52.0); Hemoglobin 10.8 g/dl (14.0-18.0); Immature Granulocytes # (auto) 0.08 K/uL (0.01-0.20); Immature Granulocytes % (auto) 0.7 %; Lymphocytes # (auto) 0.76 K/uL (1.20-3.40); Lymphocytes % (auto) 6.7 %; Mean Corpuscular Hemoglobin 28.2 pg (25.0-34.0); Mean Corpuscular Hgb Conc 29.9 g/dL (32.0-36.0); Mean Corpuscular Volume 94.3 fL (80.0-100.0); Mean Platelet Volume 9.5 fL (9.4-12.4); Monocytes # (auto) 0.86 K/uL (0.11-0.59); Monocytes % (auto) 7.6 %; Neutrophils # (auto) 9.36 K/uL (1.40-6.50); Neutrophils % (auto) 82.8 %; Platelet Count 224 K/uL (130-400); RDW Coefficient of Variation 19.3 % (11.5-14.5); RDW Standard Deviation 67.3 fL (36.4-46.3); Red Blood Count 3.83 M/uL (4.70-6.10); White Blood Count 11.31 K/ul (4.8-10.8)
--- NOTE | 2023-09-26 18:18 | XRay Report ---
XR chest 1V portable CLINICAL HISTORY: Sepsis TECHNIQUE: Single frontal radiograph of the chest was obtained. Comparison: Comparison is made to chest radiograph 06/18/2023 FINDINGS: No lines and tubes are seen. Cardiomegaly is noted. The aortic arch is calcified. Multifocal airspace opacities are seen. This is superimposed upon a background of interstitial fibrotic change. There ma y be small bilateral pleural effusions. IMPRESSION: 1. Airspace opacities compatible with multifocal pneumonia. There is redemonstration of cardiomegaly and fibrotic changes. Follow-up to resolution is recommended. 2. Small bilateral pleural effusions. ACT 112: Negative or not required by law. Electronically signed by: Arthur Taylor M.D. 09/26/2023 6:16 PM
[2023-09-26] MEDS: PIPERACILLIN/TAZOBACTAM 4.5 GM/100 ML BAG IV ONE (18:45)
[2023-09-26 18:48] LABS: Albumin Level 3.6 gm/dl (3.4-5.0); BUN Creatinine Ratio 10.6 (10-20); Bilirubin Direct 0.2 mg/dl (0-0.2); Bilirubin,Total 0.5 mg/dl (0.2-1.0); Calcium 9.4 mg/dl (8.6-10.3); Creatinine Clr Calc Pharmacy 11.6 ml/min; Est GFR (African American) 9.5 ml/min; Est GFR (Non-African American) 8.2 ml/min; Magnesium 2.1 mg/dl (1.7-2.4); Potassium 4.4 mmol/L (3.5-5.1); Total Protein 6.9 gm/dl (6.0-8.3); Troponin I High Sensitivity 27.2 pg/ml (0-20)
[2023-09-26 19:32] LABS: Adenovirus PCR Not Detected (NotDetected); Bordetella parapertussis PCR Not Detected (NotDetected); Bordetella pertussis PCR Not Detected (NotDetected); Chlamydia pneumoniae PCR Not Detected (NotDetected); Coronavirus 229E PCR Not Detected (NotDetected); Coronavirus CoV-2 (COVID19)PCR Not Detected (NotDetected); Coronavirus HKU1 PCR Not Detected (NotDetected); Coronavirus NL63 PCR Not Detected (NotDetected); Coronavirus OC43PCR Not Detected (NotDetected); Human Metapneumovirus PCR Not Detected (NotDetected); Influenza A PCR Not Detected (NotDetected); Influenza B PCR Not Detected (NotDetected); Mycoplasma pneumoniae PCR Not Detected (NotDetected); Parainfluenza Virus 1 PCR Not Detected (NotDetected); Parainfluenza Virus 2 PCR Not Detected (NotDetected); Parainfluenza Virus 3 PCR Not Detected (NotDetected); Parainfluenza Virus 4 PCR Not Detected (NotDetected); Respiratory Syncytial VirusPCR Not Detected (NotDetected); Rhinovirus/Enterovirus PCR Not Detected (NotDetected)
--- NOTE | 2023-09-26 19:48 | History & Physical Report ---
Date of Service September 26, 2023 Assessment & Plan (1) Multifocal pneumonia: Plan: Acute onset of hypoxia on 09/25 Patient normally wears supplemental oxygen at baseline (2L NC), but reportedly dropped into the 50% SpO2 range on RA CXR revealed multifocal pneumonia, and small bilateral pleural effusions Leukocytosis at 11.39 with neutrophil predominance; afebrile BioFire negative VB.33/70/57/37 Procalcitonin WNL Sputum culture ordered, pending MRSA swab ordered, pending Zosyn 4.5 g IV q8h Linezolid 300 mg IV q12h Guaifenesin 1200 mg p.o. BID DuoNeb 3 mL q6r for wheezing Flutter valve, incentive spirometry Continuous pulse oximetry BiPAP HS and ween down to supplemental oxygen as tolerated; titrate 89-92% Trend VBG while on BiPAP A.m. CBC, BMP, VBG (2) Sepsis: Plan: Tachypnea/tachycardia on arrival with pulmonary source; hypertensive in the ED Lactate WNL Blood cultures ordered, pending IVF resuscitation deferred in the setting of CHF and acute on chronic hypoxic respiratory failure Antibiotics (as above) (3) ESRD on dialysis: Plan: ESRD on dialysis M/W/F Nephrology consulted for inpatient dialysis Continue [facility] T//Fr Avoid nephrotoxic agents where possible (4) CHF (congestive heart failure): Plan: Likely acute on chronic Last echo on 04/28/2023 revealed LVEF 55-60% BNP elevated 2408 (prior 1384 on 06/18/23) Discussed with Dr. Espinosa; will hold Lasix at this time due to patient's poor renal function (5) COPD exacerbation: Plan: Solu-Medrol 40 mg IV QAM Continue home inhaler (6) PAF (paroxysmal atrial fibrillation): Plan: EKG on arrival revealed sinus tachycardia at 105 bpm; LVH with QRS widening; QTc 541 (caution use of QT prolonging agents) Continuous telemetry monitoring Continue amiodarone (7) Anemia: Plan: Chronic; Hgb 10.8 on arrival, around baseline Monitor a.m. labs (8) Seizure disorder: Plan: Continue divalproex (9) Acute on chronic hypoxic respiratory failure: Plan Disposition: Admit to PCU telemetry Full code Keep n.p.o. while on BiPAP, then advance to AHA, renal dialysis diet VTE PPx: SCDs History of Present Illness Chief Complaint: Respiratory Distress Primary Care Provider: Maximo Taylor MD Sisi is a 73-year-old gentleman with PMH of ESRD (on dialysis), COPD, atrial flutter, intracranial hemorrhage, BPH, polycystic kidney disease, HTN, liver cirrhosis, PTSD, and tremor. He presented via EMS from [facility] for acute onset of SOB on 09/25. Patient is a poor historian at time of admission, and most of the history is provided by his daughter (Jenny) at bedside. Patient was reportedly walking back from the bathroom around 4 PM without his normal supplemental oxygen (2 L NC) and his oxygen saturation began to drop. Nurse came to see him, and noticed that he was in the tripod position with accessory muscle use; SpO2 75% and titrated up to 5L NC. Patient was given a nebulizer breathing treatment at this time. Patient reportedly dropped to 55% per EMS, and patient was placed on BiPAP prior to arrival. Patient notes that he has SOB both at rest and with exertion. He sleeps in a recliner, as his breathing is often worse when lying flat. Patient notes that he has had a productive cough x 2 weeks. He endorses new onset back pain, which daughter reports is common when he develops pneumonia. Patient also endorses some pleuritic chest pain. Former smoker (marijuana and tobacco cigarettes); quit 6 years ago. He denies any recent alcohol use. Patient is hypertensive at 157/76 at time of admission; currently on BiPAP (FiO2 ratio 50). ED course: BiPAP Solu-Medrol 60 mg IV Zosyn 4.5 g IV ROS is difficult to obtain in patient's current state. However, endorses the following: SOB at rest, pleuritic CP, productive cough x 2 weeks, leg swelling, and new onset back pain. Patient denies fever, chills, night-sweats, chest pain, chest palpitations, or abdominal pain. Allergies Allergy/AdvReac Type Severity Reaction Status Date / Time lisinopril AdvReac Intermediate COUGH Verified 09/26/23 18:24 Home Medications Medication Instructions Recorded Confirmed Type tiotropium 2.5 mcg-olodaterol 2.5 2 puff inhalation QAM #4 grams 02/18/21 09/26/23 Rx mcg/actuation mist for inhalation (Stiolto Respimat) polyethylene glycol 3350 17 17 g PO DAILY Constipation 06/30/21 09/26/23 History gram/dose oral powder (Miralax) docusate sodium 100 mg capsule 400 mg PO BID 07/31/21 09/26/23 History (Colace) cinacalcet 30 mg tablet (Sensipar) 30 mg PO QAM 03/27/22 09/26/23 History epinephrine 0.3 mg/0.3 mL 0.3 mg IM Q4H PRN Anaphylaxis 08/29/22 09/26/23 History injection, auto-injector (EpiPen) ipratropium 0.5 mg-albuterol 3 mg 3 ml inhalation Q4H PRN Shortness 08/29/22 09/26/23 History (2.5 mg base)/3 mL nebulization Of Breath Or Wheezing soln amiodarone 200 mg tablet 200 mg PO QPM 11/17/22 09/26/23 History divalproex 500 mg tablet,delayed 500 mg PO QAM 11/17/22 09/26/23 History release loratadine 10 mg tablet (Wal-itin) 10 mg PO Q2D #0 tabs 12/10/22 09/26/23 Rx cholecalciferol (vitamin D3) 125 5,000 unit PO QPM 01/05/23 09/26/23 History mcg (5,000 unit) capsule thiamine HCl (vitamin B1) 100 mg 100 mg PO QAM 01/05/23 09/26/23 History tablet guaifenesin 1,200 mg tablet, 1,200 mg PO BID PRN Congestion 02/18/23 09/26/23 History extended release 12 hr (Mucinex) tramadol 50 mg tablet 50 mg PO Q6H PRN Pain, Moderate 02/18/23 09/26/23 History trazodone 50 mg tablet 50 mg PO HS 02/18/23 09/26/23 History famotidine 20 mg tablet 20 mg PO DIRECTED 04/27/23 09/26/23 History melatonin 5 mg tablet 15 mg PO HS 04/27/23 09/26/23 History vitamin B complex-vitamin C-folic 1 tab PO DAILY 06/18/23 09/26/23 History acid 0.8 mg tablet ([place]-Ancelmo) acetaminophen 325 mg tablet 325 mg PO Q4H PRN PAIN/FEVER 08/31/23 09/26/23 History ferric citrate 210 mg iron tablet 420 mg PO TIDM 08/31/23 09/26/23 History (Auryxia) lidocaine-prilocaine 2.5 %-2.5 % 1 applic topical UD 08/31/23 09/26/23 History topical cream ondansetron 4 mg disintegrating 4 mg PO Q6H PRN Nausea And Vomiting 08/31/23 09/26/23 History tablet sodium zirconium cyclosilicate 5 5 g PO DIRECTED 08/31/23 09/26/23 History gram oral powder packet (Lokelma) ketorolac 0.5 % eye drops 1 drp OPL QAM 09/26/23 09/26/23 History polyvinyl alcohol-povidone (PF) 1 drp OPB QID PRN Dry Eyes 09/26/23 09/26/23 History 1.4 %-0.6 % eye drops in a dropperette (Refresh Classic (PF)) prednisolone acetate 1 % eye 1 drp OPL QID 09/26/23 09/26/23 History drops,suspension protein supplement 30 ea PO BIDM 09/26/23 09/26/23 History white petrolatum (Vaseline jelly, 1 applic topical DAILY 09/26/23 09/26/23 History topical) fluticasone propionate 50 1 spray intranasal BID 7 days #16 09/30/23 Rx mcg/actuation nasal grams spray,suspension furosemide 40 mg tablet 40 mg PO BID 30 days #60 tabs 09/30/23 Rx Past Med/Surg History Medical History (Updated 10/03/23 @ 00:08 by Background Daemkurt) Physician orders for life-sustaining treatment (POLST) form indicates patient wish for [id number] status Acute on chronic hypoxic respiratory failure Sepsis Multifocal pneumonia Acute hypoxemic respiratory failure Generalized weakness Abdominal ascites Acute respiratory failure with hypoxia Palliative care by specialist Discussion about advance care planning held with family member Cognitive impairment Dementia with behavioral disturbance Dyspnea and respiratory abnormalities Alzheimer disease progressive decline September 2023 with worsening cognitive function. MoCA testing done patient scored 6/30/test is scanned in EMR. HE IS NOT DECISIONALLY COMPETENT. HIS MEDICAL POA IS DAUGHTER DARION HDEZ AND HIS LEGAL/FINANCIAL POA IS GRAND DAUGHTER KIMMIE LUNA WHO WORKS HERE AT [facility]. PAF (paroxysmal atrial fibrillation) COPD (chronic obstructive pulmonary disease) FORMER HEAVY SMOKER, OXYGEN DEPENDENT Encounter for pre-operative examination Polycystic kidney disease, adult type (09/03/12) History of home oxygen therapy 2L oxygen prn sat <90% per med record Limb alert care status LUE AV fistula LUE Hx MRSA infection ~02/2023, nares>per med record Hx of chest pain per med record from intermediate Alcoholic cirrhosis of liver with ascites Abnormal levels of other serum enzymes Gastrointestinal hemorrhage, unspecified End stage renal disease Unspecified intestinal obstruction, unspecified as to partial versus complete obstruction Chronic respiratory failure with hypoxia Insomnia Unspecified abnormalities of gait and mobility Low back pain, unspecified Unspecified fall, initial encounter Pain in unspecified wrist Fluid overload Acute respiratory failure with hypoxia Metabolic encephalopathy Epilepsy, unspecified, intractable, without status epilepticus Fall Bladder mass Cirrhosis of liver Ascites Confusion Ruptured middle cerebral artery aneurysm Seizure disorder Myoclonic jerking Bradycardia History of marijuana use daily Hx of atrial flutter 06/2021, hospitalized w/pneumonia for almost 3 weeks; dx atrial flutter- currently amiodarone; f/u dr. adkins, ri Paroxysmal atrial flutter Vitamin D deficiency Hypercalcemia Diverticulosis Gout hx Tremor of both hands Hypertension On home oxygen therapy 2L N/C at hs Low back pain Hemorrhoids "not currently flared" Benign neoplasm of skin of nose removed once HTN (hypertension) Anemia Intracranial hemorrhage 2012 Secondary hyperparathyroidism (of renal origin) Benign prostate hyperplasia Surgical History (Updated 10/03/23 @ 00:08 by Background Daemon) Hx of right cataract extraction S/P dialysis catheter insertion 09/2022, [facility] History of esophagogastroduodenoscopy (EGD) Hx of cardiac cath 07/2022, [facility], no stents History of abdominal paracentesis multiple, most recent 08/26/23 Status post creation of arteriovenous fistula LUE History of colonoscopy History of tooth extraction all teeth History of cerebral aneurysm repair 2012 [facility] [place]--clip in place; clip IS MRI COMPATIBLE Family History Mother , age 65 of cancer Cancer Father , age 60 from a tree falling on him No problems noted. Other No family history of adverse response to anesthesia Denies family history of Myocardial infarction Social History Smoking Status: Former smoker Tobacco Type: Cigarettes Age Started Using Tobacco: 16; Age Quit Using Tobacco: 71; packs per day: 1; Cigarettes Per Day: 1 pack; Second Hand Exposure: No; Do You Dip or Chew Tobacco: No; Hx Alcohol Use: Yes Alcohol type: beer Alcohol Intake Frequency Comment: None x2 years Hx Substance Use: Yes Last Used Substance: Unknown Last Used Substance Other:: 8 months or more Substance Use Type Other:: marijuana Preferred Language: Turkmen Communication Ability: Effective Communication Ability Comment: "able to sign own consents" 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 Required: No Beliefs That Will Affect Care: None marital status: Single Current Living Situation: Longterm Current Living Situation Comment: [facility] How many Children do You have: 1 Feels Safe at Home: Yes Assistive Devices: Oxygen - Continuous and Walker Review of Systems Review of Systems: See HPI above Physical Exam Physical Exam: General: Acute respiratory distress; non-toxic appearing; frail appearing; cooperative; SpO2 93% on nonrebreather at 8L HEENT: normocephalic, atraumatic; no scleral icterus; PERRLA; dry mucus membrane; hard of hearing Neck: supple; positive for JVP; no lymphadenopathy; trachea midline Skin: warm, dry without signs of tenting; no cyanosis; no rashes, bruising, lesions, or erythema noted CV: chest wall NTP; RRR; S1/S2 normal; 3/6 systolic ejection murmur auscultated at the second ICS MCL; pulses intact and symmetric at radial, DP, and PT Lungs: Acute respiratory distress; accessory muscle use; barrel chested; diminished breath sounds across all lung munson with minimal expiratory wheeze ABD: Soft, NTP; BS present; no rebound/guarding; moderate distention MSK: no tics or fasciculations; +1 pitting edema in the LEs B/L, nonerythematous Neuro: A&O to name and ; able to provide month/year/location after hints; normal mood and affect; fluent speech; no focal deficits; sensation grossly intact in the LEs b/l Results & Data Results & Data Vital Signs (Past 12 Hours) Vital Signs Temp Pulse Resp BP Pulse Ox O2 Del Method FiO2 09/26/23 19:45 87 16 154/87 H 96 BiPAP 09/26/23 19:30 88 16 158/88 H 97 BiPAP 09/26/23 19:20 90 20 97 09/26/23 19:15 91 H 17 157/76 H 96 09/26/23 19:15 157/76 H 09/26/23 19:00 91 H 18 154/82 H 97 BiPAP 50 09/26/23 17:58 101 H 09/26/23 17:56 95 BiPAP 09/26/23 17:50 102 H 23 95 BiPAP 09/26/23 17:50 106 H 25 H 95 50 09/26/23 17:47 104 H 24 175/98 H 96 09/26/23 17:42 105 H 25 H 96 09/26/23 17:40 36.8 C 103 H 24 175/98 H 96 CPAP Laboratory Results Abnormal lab results 09/26/23 Range/Units 17:53 WBC 11.31 H (4.8-10.8) K/ul RBC 3.83 L (4.70-6.10) M/uL Hgb 10.8 L (14.0-18.0) g/dl Hct 36.1 L (42.0-52.0) % MCHC 29.9 L (32.0-36.0) g/dL RDW Std Deviation 67.3 H (36.4-46.3) fL RDW Coeff of Giovana 19.3 H (11.5-14.5) % Neut # (Auto) 9.36 H (1.40-6.50) K/uL Lymph # (Auto) 0.76 L (1.20-3.40) K/uL Moore # (Auto) 0.86 H (0.11-0.59) K/uL VBG pH 7.33 L (7.36-7.41) VBG pCO2 70 H (38-50) mmHg Sodium 133 L (136-145) mmol/L Chloride 94 L (98-107) mmol/L BUN 66 H (6-23) mg/dl Creatinine 6.22 H* (0.6-1.4) mg/dl Glucose 154 H (70-99(Fasting)) mg/dl Troponin I High Sens 27.2 H (0-20) pg/ml B-Natriuretic Peptide 2408 H (0-100) pg/ml Diagnostic Findings Chest X-Ray 09/26/23 17:44 XR chest 1V portable CLINICAL HISTORY: Sepsis TECHNIQUE: Single frontal radiograph of the chest was obtained. Comparison: Comparison is made to chest radiograph 06/18/2023 FINDINGS: No lines and tubes are seen. Cardiomegaly is noted. The aortic arch is calcified. Multifocal airspace opacities are seen. This is superimposed upon a background of interstitial fibrotic change. There may be small bilateral pleural effusions. IMPRESSION: 1. Airspace opacities compatible with multifocal pneumonia. There is redemonstration of cardiomegaly and fibrotic changes. Follow-up to resolution is recommended. 2. Small bilateral pleural effusions. ACT 112: Negative or not required by law. Electronically signed by: Arthur Taylor M.D. 09/26/2023 6:16 PM Code Status & VTE Plan Code Status Full code (Confirmed with patient's daughter/POA in the room; patient exhibits some confusion and trouble with mentation at time of admission) VTE Prophylaxis Plan VTE Prophylaxis will be ordered: Yes Supervising Physician Co-Signing Physician Notes Attending addendum: I have physically seen this patient, have supervised the LOUISE's activities, and agree with the H&P unless as otherwise noted. Assessment and Plan: Multifocal pneumonia/acute respiratory failure with hypoxia- BioFire negative Follow sputum culture and sensitivity MRSA swab ordered and pending Zosyn 4.5 g IV every 8 hours Linezolid 300 mg IV every 12 hours Guaifenesin extended release 1200 mg p.o. twice daily Duonebs every 4 hours while awake and every 2 hours when necessary. BiPAP at bedtime Target pulse ox 89-92% Serial CBC with differential, renal function panel and VBG Sepsis due to multifocal pneumonia- Treatment as above Admit to monitored bed ESRD on HD- Dialysis states on Wednesday/Wednesday/Wednesday Consult nephrology Continue usual meds Remaining orders and notations as noted PG Care Time/CCT Total # of Minutes Spent Total Time Spent with Patient: Total time spent is greater than 50% in coordination of care (as documented) at patient's floor/unit and/or counseling patient: Coding [place] [address] INT INP/OBS CARE 3/75MIN Patient Type Established Medical Decision Making High Complexity Diagnoses Multifocal pneumonia J18.9 Sepsis A41.9 ESRD on dialysis N18.6; Z99.2 CHF (congestive heart failure) I50.9 COPD exacerbation J44.1 PAF (paroxysmal atrial fibrillation) I48.0 Anemia N18.6; D63.1; Z99.2 Anemia type: due to chronic kidney disease Chronic kidney disease stage: on chronic dialysis Seizure disorder G40.909 Acute on chronic hypoxic respiratory failure J96.21 (7) Anemia Anemia type: due to chronic kidney disease Chronic kidney disease stage: on chronic dialysis Qualified Code(s): N18.6 - End stage renal disease; D63.1 - Anemia in chronic kidney disease; Z99.2 - Dependence on renal dialysis
[2023-09-26 23:26] LABS: Appearance Urine Clear (Clear); Bacteria Urine Automated Negative (Negative); Bilirubin Urine Negative (Negative); Blood Urine 1+ (Negative); Cast Urine Automated 0 /lpf (0-5); Color Urine Yellow; Epithelial Cell Urine Auto >30 /lpf (0-5); Glucose Urine UA Negative (Negative); Ketones Urine Negative (Negative); Leukocyte Esterase Urine 3+ (Negative); Nitrite Urine Negative (Negative); RBC Urine Automated 0-4 /hpf (0-4); Specific Gravity Urine 1.008 (1.000-1.030); Urobilinogen Urine Negative (Negative); pH Urine >= 9.0 (4.5-7.5)
[2023-09-26 23:27] LABS: Protein Urine 2+ (Negative)
[2023-09-26 23:38] LABS: Base Excess VBG 11.1 mEq/L; HCO3 VBG 37 mmol/L; Oxygen Saturation VBG 89.1 %; PCO2 VBG 55 mmHg (38-50); PO2 VBG 56 mmHg; pH VBG 7.44 (7.36-7.41)
[2023-09-27] MEDS ORDERED: LIDOCAINE/PRILOCAINE 2.5% EA CRM EXT PRN (01:37)
[2023-09-27] MEDS ORDERED: ACETAMINOPHEN 325 MG TAB PO PRN (01:37)
[2023-09-27] MEDS: DOCUSATE SODIUM 100 MG CAP PO SCH (02:26)
[2023-09-27] MEDS: traZODone HCL 50 MG TAB PO SCH (02:26)
[2023-09-27] MEDS: AMIODARONE 200 MG TAB PO SCH (02:26)
[2023-09-27] MEDS: guaiFENesin 600 MG TABCR PO SCH (02:26)
[2023-09-27] MEDS: LINEZOLID IV SCH (02:29)
[2023-09-27] MEDS: PIPERACILLIN/TAZOBACTAM 4.5 GM in DEXTROSE 5% MINI-B 100 ML IV SCH ×2 (02:29→22:01)
[2023-09-27] MEDS: ALBUT/IPRATROP 3MG/0.5MG NEB 3 ML VIAL INH SCH (02:29)
[2023-09-27] MEDS: prednisoLONE acetate 1% OP SUSP 5 ML BTL OPL SCH (02:29)
[2023-09-27 06:28] LABS: Base Excess VBG 4.6 mEq/L; HCO3 VBG 32 mmol/L; Oxygen Saturation VBG 67.4 %; PCO2 VBG 56 mmHg (38-50); PO2 VBG 42 mmHg; pH VBG 7.36 (7.36-7.41)
[2023-09-27 06:37] LABS: Basophils # (auto) 0.02 K/uL (0.00-0.20); Basophils % (auto) 0.3 %; Hematocrit (blood only) 34.1 % (42.0-52.0); Hemoglobin 10.3 g/dl (14.0-18.0); Immature Granulocytes # (auto) 0.02 K/uL (0.01-0.20); Immature Granulocytes % (auto) 0.3 %; Lymphocytes # (auto) 0.56 K/uL (1.20-3.40); Lymphocytes % (auto) 9.5 %; Mean Corpuscular Hemoglobin 28.1 pg (25.0-34.0); Mean Corpuscular Hgb Conc 30.2 g/dL (32.0-36.0); Mean Corpuscular Volume 92.9 fL (80.0-100.0); Monocytes # (auto) 0.53 K/uL (0.11-0.59); Neutrophils # (auto) 4.75 K/uL (1.40-6.50); Neutrophils % (auto) 80.9 %; Platelet Count 184 K/uL (130-400); RDW Coefficient of Variation 19.2 % (11.5-14.5); RDW Standard Deviation 65.5 fL (36.4-46.3); Red Blood Count 3.67 M/uL (4.70-6.10); White Blood Count 5.88 K/ul (4.8-10.8)
[2023-09-27 07:04] LABS: BUN Creatinine Ratio 9.7 (10-20); Calcium 9.4 mg/dl (8.6-10.3); Creatinine Clr Calc Pharmacy 9.6 ml/min; Est GFR (African American) 7.5 ml/min; Est GFR (Non-African American) 6.5 ml/min; Potassium 4.5 mmol/L (3.5-5.1)
--- NOTE | 2023-09-27 07:43 | Hospitalist Progress Note ---
Date of Service September 27, 2023 Assessment & Plan (1) Acute on chronic hypoxic respiratory failure: (2) CHF (congestive heart failure): (3) PAF (paroxysmal atrial fibrillation): (4) Multifocal pneumonia: (5) ESRD on dialysis: (6) Anemia: (7) Seizure disorder: (8) COPD (chronic obstructive pulmonary disease): (9) Chronic GERD: Plan Pt is a 73 yo male with a past medical history of ESRD on dialysis , COPD on 2L O2 at baseline, HFmrEF, atrial flutter, hx intracranial hemorrhage, polycystic kidney disease, BPH, HTN, liver cirrhosis, PTSD, and tremor who presents to the hospital on 09/25 for progressive SOB and increased oxygen needs for 1 day. #Acute hypoxic resp failure - secondary to pneumonia vs CHF exac vs COPD exac - on 2L baseline at home of O2 - will plan for dialysis today and will reevaluate resp status after dialysis - if improved after dialysis with fluid removal, this would favor CHF exac - if not improved after dialysis, would favor COPD exac vs pneumonia - continue bipap for now #Multifocal pneumonia - noted on CXR on admission, along with small b/l pleural effusions - biofire neg, MRSA nasal swab neg - Procalcitonin wnl, CRP 4.8, WBC on admission 11 - this is most likely residual from pneumonia 2 weeks ago, thanh with norm procalc - sputum culture; pending - continue zoysn, but D/C'ed linezolid as MRSA nare neg - recheck CRP tomorrow #CHF (congestive heart failure), possible exacerbation - last echo 04/2023; EF 55-60% - BNP on admission elevated 2408 (prior 1384 on 06/18/23) - lasix held in the setting of ESRD pending dialysis today - HD today, follow nephrology recs #COPD, possible exacerbation - Solu-Medrol 40 mg IV QAM - azithromycin started for anti-inflam effects - Continue home inhalers #ESRD on hemodialysis - no missed sessions the last few weeks - Nephrology consulted for inpatient dialysis - Continue [facility] - Avoid nephrotoxic agents where possible #PAF (paroxysmal atrial fibrillation) - EKG on arrival revealed sinus tachycardia at 105 bpm; LVH with QRS widening; QTc 541 (caution use of QT prolonging agents) - Continuous telemetry monitoring - Continue amiodarone #Anemia, chronic - Chronic in the setting of ESRD; Hgb 10.8 on arrival, around baseline - Monitor a.m. labs #Seizure disorder - Continue divalproex #GERD - continue home famotidine Admission and Anticipated Discharge Date Admission Date: September 26, 2023 Supervising Physician Co-Signing Physician Notes I personally examined the patient and verified all reyes points of history and exam, discussed case, and agree with decision making with Dr Lund Patient seen twice today. During dialysis he still on BiPAP and fairly somnolent. With short answers he would deny pain and denies shortness of breath, but no depth of HPI review of systems was able to be obtained. Later revisited, he is off of dialysis and down to 5 L nasal cannula (baseline of 2) denies shortness of breath, is much more alert and conversive. Family notes that he does not recognize his granddaughter (whom he lived with for 3-4 years), but he has had deliriums before. They also note that after his cataract surgery his hearing loss has suddenly and dramatically worsened. Vitals noted, in general he is awake and alert disoriented no distress. HEENT normocephalic atraumatic mucous membranes moist. Lungs are quiet but clear moderate effort at best no accessory muscle use this afternoon, this morning whenever he was on dialysis scattered coarse rhonchi. Labs and diagnostics noted. Hypoxiadifferentials being acute diastolic CHF/pulmonary edema, COPD exacerbation, refractory pneumoniarefractory pneumonia seems to be the least likely given his inflammatory markers/white count and symptoms really do not seem to fit with an active or ongoing infection, given his response before and after dialysis, I suspect pulmonary edema/acute on chronic diastolic CHF is the most likely; certainly almost impossible to rule out a concomitant COPD exacerbation. Given negative MRSA nares and low suspicion of acute pneumonia anyway, DC Zyvox. Continue Zosyn for now and follow into tomorrow, low threshold of dropping the Zosyn as well given that it seems unlikely as an active pneumonia. hearing loss after cataract surgery - ?odd - will have to delve into further. had recent echo as outpt - will ask for results. DVT proph - heparin SQ otherwise as above Subjective Pt is a 73 yo male with a past medical history of ESRD on dialysis M-W-F, COPD on 2L O2 at baseline, HFmrEF, atrial flutter, hx intracranial hemorrhage, polycystic kidney disease, BPH, HTN, liver cirrhosis, PTSD, and tremor who presents to the hospital on 09/25 for progressive SOB and increased oxygen needs for 1 day. Today, pt on bipap so conversation minimal and he was difficult to understand while on machine, but he does state he is coming in for 1 day of worsening shortness of breath. Denies chest pain, nausea, or vomiting. Was noted per HPI to have had pneumonia 2 weeks ago and got an antibiotic then. No questions or complaints at this point in time. Review of Systems Review of Systems: Per HPI. Physical Exam Physical Exam: General:Alert, no acute distress, exam limited by bipap Cardio: Difficult to evaluate due to bipap Resp:On bipap, increased resp effort but not in resp distress when off bipap Skin: Warm, pink, dry, Psych: Mood-affect congruence. Results & Data Results & Data Vital Signs (Past 12 Hours) Vital Signs Temp Pulse Pulse Resp BP BP Pulse Ox 09/27/23 07:13 84 17 95 09/27/23 07:11 85 16 96 09/27/23 06:58 89 09/27/23 06:00 09/27/23 06:00 36.9 C 77 18 159/87 H 95 09/27/23 06:00 81 18 159/87 H 93 09/27/23 01:46 93 H 22 187/88 H 93 09/27/23 01:46 09/27/23 01:38 09/27/23 00:30 79 19 96 09/27/23 00:01 82 17 94 09/27/23 00:00 80 16 152/98 H 97 09/26/23 23:00 80 18 159/110 H 95 09/26/23 23:00 82 16 159/110 H 94 09/26/23 23:00 81 17 94 09/26/23 22:02 81 09/26/23 22:00 80 17 160/86 H 97 09/26/23 21:00 81 19 155/87 H 94 09/26/23 20:00 86 19 156/83 H 88 L 09/26/23 19:56 87 19 163/88 H 95 09/26/23 19:45 87 16 154/87 H 96 Pulse Ox O2 Del Method O2 Del Method O2 Flow Rate O2 Flow Rate FiO2 09/27/23 07:13 50 09/27/23 07:11 BiPAP 50 09/27/23 06:58 09/27/23 06:00 BiPAP 09/27/23 06:00 BiPAP 09/27/23 06:00 BiPAP 09/27/23 01:46 Oxymask 8 09/27/23 01:46 92 Oxymask 8 09/27/23 01:38 BiPAP 09/27/23 00:30 09/27/23 00:01 09/27/23 00:00 09/26/23 23:00 09/26/23 23:00 CPAP 09/26/23 23:00 50 09/26/23 22:02 09/26/23 22:00 09/26/23 21:00 09/26/23 20:00 Nasal Cannula 4 09/26/23 19:56 BiPAP 50 09/26/23 19:45 BiPAP Resident Activity Tracking Resident Involvement: Resident Care Provided Care Provided: Adult Hospital Medicine (6) Anemia Anemia type: unspecified type Qualified Code(s): D64.9 - Anemia, unspecified (8) COPD (chronic obstructive pulmonary disease) COPD type: unspecified COPD Qualified Code(s): J44.9 - Chronic obstructive pulmonary disease, unspecified
[2023-09-27] MEDS: methylPREDNISolone 40 MG in SYRINGE 0 ML IV SCH (08:29)
[2023-09-27] MEDS: THIAMINE HCL 100 MG TAB PO SCH (08:29)
[2023-09-27] MEDS: CINACALCET HCL 30 MG TAB PO SCH (08:29)
[2023-09-27] MEDS: DIVALPROEX DELAY RELEASE 500 MG TAB PO SCH (08:29)
[2023-09-27] MEDS: UMECLIDINIUM/VILANTEROL 62.5/25MCG 7 PUFFS/INHALER INH SCH (08:30)
[2023-09-27] MEDS: POLYETHYLENE (MIRALAX) 17 GM PACK PO SCH (08:30)
[2023-09-27] MEDS: KETOROLAC 0.5% OP SOLN 5 ML BTL OPL SCH (08:30)
[2023-09-27 08:38] LABS: C Reactive Protein 4.84 mg/dl (0-0.5)
[2023-09-27] MEDS: HEPARIN SOD 5,000 UNIT/0.5 ML VIAL SQ SCH (09:10)
--- NOTE | 2023-09-27 10:01 | Nephrology Consultation ---
Date of Consultation September 27, 2023 Assessment & Plan (1) ESRD on dialysis: (2) Multifocal pneumonia: (3) Anemia: (4) Abdominal ascites: (5) Acute respiratory failure with hypoxia: Plan 72 year-old gentlemen with ESRD secondary to polycystic kidney disease, on HD MWF at [facility]. Admitted with acute respiratory failure and hypoxia secondary to multifocal pneumonia and bilateral pleural effusion. Labs are within acceptable limit. Chest x-ray showing multifocal pneumonia, pulmonary congestion and pleural effusion. Started empirically on Zosyn and linezolid. Had last dialysis on Wednesday had full session as regular schedule, currently electrolyte acceptable, slightly volume overloaded and due for dialysis today --tolerating HD, aim for UF 4 L --Epogen 26114 units with hemodialysis today. --left arm nephrology precaution, continue on renal diet, dose medications for eGFR less than 10 --continue phosphate binder with meal, nephro caps and Sensipar Thanks for the consult. It was a pleasure to see Mr. Redmond. History of Present Illness Reason for Consultation: ESKD on HD,admitted with respiratory failure secondary to multifocal pneumonia. Attending Physician: Trent Christianson, History of Present Illness Sisi Redmond is a 73-year-old gentlemen with ESRD on HD, hypertension, polycystic kidney disease, cirrhosis of liver, admitted to the hospital with acute respiratory failure secondary to multifocal pneumonia and bilateral pleural effusion. Nephrology consult was requested to manage dialysis while inpatient. EMR records including labs and imaging were reviewed in detail during patient's visit. Sisi was brought to ER yesterday from [facility]. According to the report, yesterday he suddenly became acutely short of breath after just going to the bathroom without having his nasal cannula oxygen. He normally wears 2 L nasal cannula oxygen all the time. By the time he came back from bathroom his SpO2 dropped to 75% and immediately his nasal cannula oxygen was titrated up to 5L and given a nebulizer treatment. But SpO2 dropped to 55%, EMS was called and patient was placed on BiPAP prior to arrival. Had h/o productive cough x 2 weeks and some pleuritic chest pain. Chest x-ray showed multifocal pneumonia, pulmonary congestion bilateral pleural effusion. Troponin was mildly elevated but repeat staying stable. Has been on BiPAP since arrival yesterday. Hemoglobin staying stable. Electrolyte including potassium was normal. Hb 10.4. Calcium normal. Has ESRD secondary to polycystic kidney disease, has been on dialysis for last > 5 years.Was on PD but transitioned to HD in January 2023, dialyzes MWF at [facility]. Had HD on last Wednesday, had full session. EDW Kg but was recently above EDW 74 kg. h/o repeated hyperkalemia, on 2 K bath and Lokelma on nondialysis days. Has complex past medical history including cirrhosis diagnosed over last 2 years, has been getting frequent large-volume paracentesis, although recently he has been reaccumulating very slowly, last paracentesis was 08/26/2023 and had minimal volume removed and since then has been staying stable. Diagnosis of bladder cancer over last few months s/p Fulguration. 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 Prior history of smoking cigarettes and marijuana which he stopped few years ago. He is still on BiPAP but was responding to questions and answering appropriately although it was difficult to understand because of BiPAP. Allergies Allergy/AdvReac Type Severity Reaction Status Date / Time lisinopril AdvReac Intermediate COUGH Verified 09/26/23 18:24 Home Medications Medication Instructions Recorded Confirmed Type tiotropium 2.5 mcg-olodaterol 2.5 2 puff inhalation QAM #4 grams 02/18/21 09/26/23 Rx mcg/actuation mist for inhalation (Stiolto Respimat) polyethylene glycol 3350 17 17 g PO DAILY Constipation 06/30/21 09/26/23 History gram/dose oral powder (Miralax) docusate sodium 100 mg capsule 400 mg PO BID 07/31/21 09/26/23 History (Colace) cinacalcet 30 mg tablet (Sensipar) 30 mg PO QAM 03/27/22 09/26/23 History epinephrine 0.3 mg/0.3 mL 0.3 mg IM Q4H PRN Anaphylaxis 08/29/22 09/26/23 History injection, auto-injector (EpiPen) ipratropium 0.5 mg-albuterol 3 mg 3 ml inhalation Q4H PRN Shortness 08/29/22 09/26/23 History (2.5 mg base)/3 mL nebulization Of Breath Or Wheezing soln amiodarone 200 mg tablet 200 mg PO QPM 11/17/22 09/26/23 History divalproex 500 mg tablet,delayed 500 mg PO QAM 11/17/22 09/26/23 History release loratadine 10 mg tablet (Wal-itin) 10 mg PO Q2D #0 tabs 12/10/22 09/26/23 Rx cholecalciferol (vitamin D3) 125 5,000 unit PO QPM 01/05/23 09/26/23 History mcg (5,000 unit) capsule thiamine HCl (vitamin B1) 100 mg 100 mg PO QAM 01/05/23 09/26/23 History tablet guaifenesin 1,200 mg tablet, 1,200 mg PO BID PRN Congestion 02/18/23 09/26/23 History extended release 12 hr (Mucinex) tramadol 50 mg tablet 50 mg PO Q6H PRN Pain, Moderate 02/18/23 09/26/23 History trazodone 50 mg tablet 50 mg PO HS 02/18/23 09/26/23 History famotidine 20 mg tablet 20 mg PO DIRECTED 04/27/23 09/26/23 History melatonin 5 mg tablet 15 mg PO HS 04/27/23 09/26/23 History furosemide 40 mg tablet 40 mg PO QAM 06/18/23 09/26/23 History vitamin B complex-vitamin C-folic 1 tab PO DAILY 06/18/23 09/26/23 History acid 0.8 mg tablet ([place]-Ancelmo) acetaminophen 325 mg tablet 325 mg PO Q4H PRN PAIN/FEVER 08/31/23 09/26/23 History ferric citrate 210 mg iron tablet 420 mg PO TIDM 08/31/23 09/26/23 History (Auryxia) lidocaine-prilocaine 2.5 %-2.5 % 1 applic topical UD 08/31/23 09/26/23 History topical cream ondansetron 4 mg disintegrating 4 mg PO Q6H PRN Nausea And Vomiting 08/31/23 09/26/23 History tablet sodium zirconium cyclosilicate 5 5 g PO DIRECTED 08/31/23 09/26/23 History gram oral powder packet (Lokelma) ketorolac 0.5 % eye drops 1 drp OPL QAM 09/26/23 09/26/23 History polyvinyl alcohol-povidone (PF) 1 drp OPB QID PRN Dry Eyes 09/26/23 09/26/23 History 1.4 %-0.6 % eye drops in a dropperette (Refresh Classic (PF)) prednisolone acetate 1 % eye 1 drp OPL QID 09/26/23 09/26/23 History drops,suspension protein supplement 30 ea PO BIDM 09/26/23 09/26/23 History white petrolatum (Vaseline jelly, 1 applic topical DAILY 09/26/23 09/26/23 History topical) Patient History Medical History (Updated 09/26/23 @ 21:07 by Jef Contreras PA-C) PAF (paroxysmal atrial fibrillation) Encounter for pre-operative examination History of home oxygen therapy 2L oxygen prn sat <90% per med record Limb alert care status LUE AV fistula LUE Hx MRSA infection ~02/2023, nares>per med record Hx of chest pain per med record from prison Alcoholic cirrhosis of liver with ascites Abnormal levels of other serum enzymes Gastrointestinal hemorrhage, unspecified End stage renal disease Unspecified intestinal obstruction, unspecified as to partial versus complete obstruction Chronic respiratory failure with hypoxia Insomnia Unspecified abnormalities of gait and mobility Low back pain, unspecified Unspecified fall, initial encounter Pain in unspecified wrist Fluid overload Acute respiratory failure with hypoxia Metabolic encephalopathy Epilepsy, unspecified, intractable, without status epilepticus Fall Bladder mass Cirrhosis of liver Ascites Confusion Ruptured middle cerebral artery aneurysm Seizure disorder Myoclonic jerking Bradycardia History of marijuana use daily Hx of atrial flutter 06/2021, hospitalized w/pneumonia for almost 3 weeks; dx atrial flutter- currently amiodarone; f/u dr. adkins, [place] Paroxysmal atrial flutter Vitamin D deficiency Hypercalcemia Diverticulosis Gout hx Tremor of both hands Alzheimer disease Hypertension On home oxygen therapy 2L N/C at hs Low back pain Hemorrhoids "not currently flared" Benign neoplasm of skin of nose removed once COPD (chronic obstructive pulmonary disease) HTN (hypertension) Anemia Intracranial hemorrhage 2012 Secondary hyperparathyroidism (of renal origin) Benign prostate hyperplasia Polycystic kidney disease, adult type (09/03/12) Surgical History Hx of right cataract extraction S/P dialysis catheter insertion 09/2022, [facility] History of esophagogastroduodenoscopy (EGD) Hx of cardiac cath 07/2022, [facility], no stents History of abdominal paracentesis multiple, most recent 08/26/23 Status post creation of arteriovenous fistula LUE History of colonoscopy History of tooth extraction all teeth History of cerebral aneurysm repair 2012 [facility] Presby--clip in place; clip IS MRI COMPATIBLE Family History Mother , age 65 of cancer Cancer Father , age 60 from a tree falling on him No problems noted. Other No family history of adverse response to anesthesia Denies family history of Myocardial infarction Social History Smoking Status: Former smoker Tobacco Type: Cigarettes Age Started Using Tobacco: 16; Age Quit Using Tobacco: 71; packs per day: 1; Cigarettes Per Day: 1 pack; Second Hand Exposure: No; Do You Dip or Chew Tobacco: No; Tobacco Cessation Education Requested by Patient: No Hx Alcohol Use: Yes Alcohol type: beer Alcohol Intake Frequency Comment: None x2 years Hx Substance Use: Yes Last Used Substance: Unknown Last Used Substance Other:: 8 months or more Substance Use Type Other:: marijuana Preferred Language: [place] Islander Communication Ability: Effective Communication Ability Comment: "able to sign own consents" Cable T[employer] Helper Required: No Beliefs That Will Affect Care: None marital status: Single Current Living Situation: Skilled Nursing Current Living Situation Comment: [facility] How many Children do You have: 1 Other Information That Helps Us Care for You: No Feels Safe at Home: Yes Safety Concerns: Feels Safe At This Time Assistive Devices: Denture - Upper, Denture - Lower and Oxygen - Continuous Review of Systems Review of Systems: All systems reviewed & are unremarkable except as noted in HPI & below Physical Exam Constitutional: WD/WN, vitals as above no acute distress Eyes: + anicteric sclerae Neck: normal visual inspection Respiratory: no respiratory distress Auscultation: + crackles and + rales; no wheezes Cardiovascular: Rate/Rhythm: regular rate and regular rhythm Heart Sounds: normal S1 and normal S2 Extremities: + edema (trace b/l lE edema) and + AV fistula (Left BC AVF with thrill and bruit.) Gastrointestinal (Abdomen): Inspection/Auscultation: abdomen normal to inspection Percussion/Palpation: abdomen soft; abdomen nontender Musculoskeletal: Extremities: extremities normal to inspection Skin: no rashes, warm and dry Neurologic: no focal motor deficits Psychiatric: Orientation: alert and oriented x 3 Affect: euthymic affect Results & Data Vital Signs (Past 12 Hours) Vital Signs Temp Pulse Pulse Resp BP BP Pulse Ox 09/27/23 09:02 80 15 94 09/27/23 09:00 72 16 158/85 H 93 09/27/23 07:13 84 17 95 09/27/23 07:11 85 16 96 09/27/23 06:58 89 09/27/23 06:00 09/27/23 06:00 36.9 C 77 18 159/87 H 95 09/27/23 06:00 81 18 159/87 H 93 09/27/23 01:46 93 H 22 187/88 H 93 09/27/23 01:46 09/27/23 01:38 09/27/23 00:30 79 19 96 09/27/23 00:01 82 17 94 09/27/23 00:00 80 16 152/98 H 97 09/26/23 23:00 80 18 159/110 H 95 09/26/23 23:00 82 16 159/110 H 94 09/26/23 23:00 81 17 94 09/26/23 22:02 81 09/26/23 22:00 80 17 160/86 H 97 Pulse Ox O2 Del Method O2 Del Method O2 Flow Rate O2 Flow Rate FiO2 09/27/23 09:02 50 09/27/23 09:00 BiPAP 09/27/23 07:13 50 09/27/23 07:11 BiPAP 50 09/27/23 06:58 09/27/23 06:00 BiPAP 09/27/23 06:00 BiPAP 09/27/23 06:00 BiPAP 09/27/23 01:46 Oxymask 8 09/27/23 01:46 92 Oxymask 8 09/27/23 01:38 BiPAP 09/27/23 00:30 09/27/23 00:01 09/27/23 00:00 09/26/23 23:00 09/26/23 23:00 CPAP 09/26/23 23:00 50 09/26/23 22:02 09/26/23 22:00 PG Care Time/CCT Total # of Minutes Spent Total Time Spent with Patient: Total time spent is greater than 50% in coordination of care (as documented) at patient's floor/unit and/or counseling patient: Coding Level of Care Code 70776 INT INP/OBS CARE 3/75MIN Diagnoses ESRD on dialysis N18.6; Z99.2 Multifocal pneumonia J18.9 Anemia N18.6; D63.1; Z99.2 Anemia type: due to chronic kidney disease Chronic kidney disease stage: on chronic dialysis Abdominal ascites R18.8 Ascites type: other type Acute respiratory failure with hypoxia J96.01 (3) Anemia Anemia type: due to chronic kidney disease Chronic kidney disease stage: on chronic dialysis Qualified Code(s): N18.6 - End stage renal disease; D63.1 - Anemia in chronic kidney disease; Z99.2 - Dependence on renal dialysis (4) Abdominal ascites Ascites type: other type Qualified Code(s): R18.8 - Other ascites
[2023-09-27] MEDS: EPOETIN ALFA 10,000 UNITS/ML VIAL IV STA (12:08)
[2023-09-27] MEDS: NEPHROCAPS PO SCH (14:09)
[2023-09-27] MEDS: AZITHROMYCIN 500 MG in DEXTROSE 5% 250 ML IV SCH (14:09)
--- NOTE | 2023-09-27 15:04 | CT Scan Report ---
CT head/brain wo con CLINICAL HISTORY: headache Technique: Contiguous axial CT images of the head were acquired from the base of the skull to the neena yesenia without intravenous contrast administration. Images were viewed in brain, subdural and bone backus hospitalo . Automated dose lowering techniques and/or adjustment according to patient size were utilized for this exam. Comparison: Comparison is made to CT head 06/18/2023 Findings: Areas of decreased attenuation are present in the periventricular and subcortical white matter bilate rally consistent with small vessel ischemic disease. Generalized cerebral atrophy with commensurate e nlargement of the ventricles, sulci, and cisterns is also present. There is no acute intracranial hem orrhage or evidence of acute territorial infarction. No shift of the midline structures, mass effect, or extra-axial abnormalities are shown. Atherosclerotic calcifications are present in the intracran ial segments of the internal carotid arteries. Left frontotemporal and right frontal encephalomalacia is unchanged from prior exam. Imaged portions of the paranasal sinuses and mastoid air cells are clear. The orbits appear normal. There are no acute fractures of the calvaria or scalp swelling. Impression: No acute intracranial hemorrhage, no evidence of acute territorial infarction or other acute intracra nial disease process. ACT 112: Negative or not required by law. Electronically signed by: Arthur Taylor M.D. 09/27/2023 3:03 PM
--- NOTE | 2023-09-27 17:13 | Billing Data ---
Date of Service September 27, 2023 Coding Level of Care Code 48325 SUB INP/OBS CARE
[2023-09-27] MEDS: FAMOTIDINE 20 MG TAB PO SCH (17:38)
--- NOTE | 2023-09-28 05:47 | Electrocardiogram Report ---
Test Reason : Blood Pressure : / mmHG Vent. Rate : 105 BPM Atrial Rate : 105 BPM P-R Int : 176 ms QRS Dur : 132 ms QT Int : 410 ms P-R-T Axes : 063 063 072 degrees QTc Int : 541 ms Sinus tachycardia Left ventricular hypertrophy with QRS widening and repolarization abnormality ( Az product ) Abnormal ECG When compared with ECG of 21-JUN-2023 20:41, Nonspecific T wave abnormality now evident in Inferior leads T wave inversion now evident in Lateral leads QT has lengthened Confirmed by Cruz Godfrey ([id number]) on 09/28/2023 5:47:38 AM Referred By: REFERRED SELF Confirmed By:Cruz Godfrey
--- NOTE | 2023-09-28 06:44 | Hospitalist Progress Note ---
Date of Service September 28, 2023 Assessment & Plan (1) Acute on chronic hypoxic respiratory failure: (2) CHF (congestive heart failure): (3) PAF (paroxysmal atrial fibrillation): (4) Multifocal pneumonia: (5) ESRD on dialysis: (6) Anemia: (7) Seizure disorder: (8) COPD (chronic obstructive pulmonary disease): (9) Chronic GERD: Plan Pt is a 73 yo male with a past medical history of ESRD on dialysis , COPD on 2L O2 at baseline, HFmrEF, atrial flutter, hx intracranial hemorrhage, polycystic kidney disease, BPH, HTN, liver cirrhosis, PTSD, and tremor who presents to the hospital on 09/25 for progressive SOB and increased oxygen needs for 1 day. To get dialysis again today per nephro, overall improving. #Acute hypoxic resp failure - secondary to pneumonia vs CHF exac vs COPD exac - on 2L baseline at home of O2 - will plan for dialysis today and will reevaluate resp status after dialysis - if improved after dialysis with fluid removal, this would favor CHF exac - if not improved after dialysis, would favor COPD exac vs pneumonia - improving after dialysis so most likely CHF more than other causes but some part may also be a COPD exac with steroids still on board #Multifocal pneumonia - noted on CXR on admission, along with small b/l pleural effusions - biofire neg, MRSA nasal swab neg - Procalcitonin wnl, CRP 4.8, WBC on admission 11 - this is most likely residual from pneumonia 2 weeks ago, thanh with norm procalc - sputum culture; pending - continue zoysn, but D/C'ed linezolid as MRSA nare neg - recheck CRP tomorrow #CHF (congestive heart failure), possible exacerbation - last echo 04/2023; EF 55-60% - BNP on admission elevated 2408 (prior 1384 on 06/18/23) - lasix held in the setting of ESRD pending dialysis today - HD today, follow nephrology recs #COPD, possible exacerbation - Solu-Medrol 40 mg IV QAM - azithromycin started for anti-inflam effects - Continue home inhalers #ESRD on hemodialysis -- - no missed sessions the last few weeks - Nephrology consulted for inpatient dialysis - Continue [facility] / - Avoid nephrotoxic agents where possible #PAF (paroxysmal atrial fibrillation) - EKG on arrival revealed sinus tachycardia at 105 bpm; LVH with QRS widening; QTc 541 (caution use of QT prolonging agents) - Continuous telemetry monitoring - Continue amiodarone #Anemia, chronic - Chronic in the setting of ESRD; Hgb 10.8 on arrival, around baseline - Monitor a.m. labs #Seizure disorder - Continue divalproex #GERD - continue home famotidine Admission and Anticipated Discharge Date Admission Date: September 26, 2023 Supervising Physician Co-Signing Physician Notes I personally examined the patient and verified all reyes points of history and exam, discussed case, and agree with decision making with Dr Lund feeling better breathing better still confused but recognizes family still c/o hearing loss. vitals noted nad pleasantly confused lungs faint base rales. ears b/l yellow thick appearing mucous behind TMs canals clear. neuro no focal deficits Hypoxiainitial differentials being acute diastolic CHF/pulmonary edema, COPD exacerbation, refractory pneumoniaat this point with nothing appearing septic refractory pneumonia appears to have been ruled out. suspect both acute on chronic diastolic CHF > COPD exacerbation with elements of both. ongoing HD per nephro, continue steroids for now although with lungs more clear probably short burst rather than long taper. since very low concern for refractory pneumonia - stopped zyvox yesterday, stopping zosyn today. hearing loss - refer to ENT. does not appear to have capacity, family are decision makers. otherwise as above Subjective Pt is a 73 yo male with a past medical history of ESRD on dialysis M-W-F, COPD on 2L O2 at baseline, HFmrEF, atrial flutter, hx intracranial hemorrhage, polycystic kidney disease, BPH, HTN, liver cirrhosis, PTSD, and tremor who presents to the hospital on 09/25 for progressive SOB and increased oxygen needs for 1 day. Today, pt states his breathing feels better since dialysis and overall he is starting to feel better. No questions or complaints at this time. Review of Systems Review of Systems: Per HPI. Physical Exam Physical Exam: General:Alert, no acute distress, pleasant gentleman Cardio: Regular rate and rhythm on exam today, Resp:No respiratory distress, fair air movement with some crackles noted Skin: Warm, pink, dry, Psych: Mood-affect congruence. Results & Data Results & Data Vital Signs (Past 12 Hours) Vital Signs Temp Pulse Pulse Pulse Pulse Resp BP 09/28/23 02:21 37.2 C 76 15 127/70 09/28/23 01:37 09/28/23 00:26 85 09/27/23 23:42 09/27/23 22:28 37.1 C 84 27 H 116/61 09/27/23 20:36 84 23 09/27/23 19:27 37.1 C 83 19 149/77 H Pulse Ox O2 Del Method O2 Del Method O2 Flow Rate O2 Flow Rate 09/28/23 02:21 92 Nasal Cannula 5.0 09/28/23 01:37 Nasal Cannula 4 09/28/23 00:26 09/27/23 23:42 Nasal Cannula 4 09/27/23 22:28 92 Nasal Cannula 5.0 09/27/23 20:36 96 Oxymask 4 09/27/23 19:27 98 Oxymask 6.0 Resident Activity Tracking Resident Involvement: Resident Care Provided Care Provided: Adult Hospital Medicine (6) Anemia Anemia type: unspecified type Qualified Code(s): D64.9 - Anemia, unspecified (8) COPD (chronic obstructive pulmonary disease) COPD type: unspecified COPD Qualified Code(s): J44.9 - Chronic obstructive pulmonary disease, unspecified
[2023-09-28] MEDS: LORATADINE 10 MG TAB PO SCH (08:32)
[2023-09-28] MEDS: SODIUM ZIRCONIUM CYCLOSILICATE 10 GM PACKET PO SCH (08:32)
[2023-09-28 09:57] LABS: HBSAG NON-REACTIVE (NON-REACTIVE)
[2023-09-28 10:30] LABS: Basophils # (auto) 0.05 K/uL (0.00-0.20); Basophils % (auto) 0.9 %; Eosinophils # (auto) 0.19 K/uL (0.00-0.50); Eosinophils % (auto) 3.3 %; Immature Granulocytes # (auto) 0.02 K/uL (0.01-0.20); Immature Granulocytes % (auto) 0.3 %; Lymphocytes # (auto) 0.57 K/uL (1.20-3.40); Mean Corpuscular Hgb Conc 29.4 g/dL (32.0-36.0); Mean Corpuscular Volume 95.2 fL (80.0-100.0); Monocytes # (auto) 0.56 K/uL (0.11-0.59); Monocytes % (auto) 9.8 %; Neutrophils # (auto) 4.33 K/uL (1.40-6.50); Neutrophils % (auto) 75.7 %; Platelet Count 168 K/uL (130-400); RDW Coefficient of Variation 19.2 % (11.5-14.5); RDW Standard Deviation 67.3 fL (36.4-46.3); Red Blood Count 3.57 M/uL (4.70-6.10); White Blood Count 5.72 K/ul (4.8-10.8)
[2023-09-28 10:48] LABS: Albumin Level 3.1 gm/dl (3.4-5.0); BUN Creatinine Ratio 7.4 (10-20); C Reactive Protein 3.98 mg/dl (0-0.5); Est GFR (African American) 10.8 ml/min; Est GFR (Non-African American) 9.3 ml/min; Phosphorus 3.3 mg/dl (2.5-4.9)
--- NOTE | 2023-09-28 13:09 | Nephrology Progress Note ---
Date of Service September 28, 2023 Assessment & Plan (1) ESRD on dialysis: (2) Multifocal pneumonia: (3) Anemia: (4) Abdominal ascites: (5) Acute respiratory failure with hypoxia: Plan 72 year-old gentlemen with ESRD secondary to polycystic kidney disease, on HD MWF at [facility]. Admitted with acute respiratory failure and hypoxia secondary to multifocal pneumonia and bilateral pleural effusion. Labs are within acceptable limit. Chest x-ray showing multifocal pneumonia, pulmonary congestion and pleural effusion. Started empirically on Zosyn and linezolid. Had dialysis yesterday, had 4 L UF although still above his dry weight, electrolyte acceptable. --HD will try to do UF as tolerated considering he is still significantly above his dry weight. --Epogen 63689 units given with hemodialysis yesterday --left arm nephrology precaution, continue on renal diet, dose medications for eGFR less than 10 --continue phosphate binder with meal, nephro caps and Sensipar Admission and Anticipated Discharge Date Admission Date: September 26, 2023 Abraham Laird was seen and evaluated this morning. He reports feeling better, feels less short of breath. Had dialysis yesterday, had 4 L UF although still seems somewhat volume overloaded. Electrolyte acceptable. Blood pressure fair. Review of Systems Review of Systems: Detailed review of system was done and pertinent positives and negatives mentioned above. Physical Exam Constitutional: WD/WN, vitals as above no acute distress Eyes: + anicteric sclerae Neck: normal visual inspection Respiratory: no respiratory distress Auscultation: + crackles and + rales; no wheezes Cardiovascular: Rate/Rhythm: regular rate and regular rhythm Heart Sounds: normal S1 and normal S2 Extremities: + edema (trace b/l lE edema) and + AV fistula (Left BC AVF with thrill and bruit.) Musculoskeletal: Extremities: extremities normal to inspection Skin: no rashes, warm and dry Neurologic: no focal motor deficits Psychiatric: Orientation: alert and oriented x 3 Affect: euthymic affect Results & Data Vital Signs (Past 12 Hours) Vital Signs Temp Pulse Resp BP Pulse Ox O2 Del Method O2 Del Method 09/28/23 07:54 36.9 C 84 24 135/76 83 L Nasal Cannula 09/28/23 06:58 78 16 96 Nasal Cannula 09/28/23 02:21 37.2 C 76 15 127/70 92 Nasal Cannula 09/28/23 01:37 Nasal Cannula O2 Flow Rate O2 Flow Rate 09/28/23 07:54 09/28/23 06:58 3 09/28/23 02:21 5.0 09/28/23 01:37 4 PG Care Time/CCT Total # of Minutes Spent Total Time Spent with Patient: Total time spent is greater than 50% in coordination of care (as documented) at patient's floor/unit and/or counseling patient: Coding Level of Care Code 79679 SUB INP/OBS CARE 2/35MIN Diagnoses ESRD on dialysis N18.6; Z99.2 Multifocal pneumonia J18.9 Anemia N18.6; D63.1; Z99.2 Anemia type: due to chronic kidney disease Chronic kidney disease stage: on chronic dialysis Abdominal ascites R18.8 Ascites type: other type Acute respiratory failure with hypoxia J96.01 (3) Anemia Anemia type: due to chronic kidney disease Chronic kidney disease stage: on chronic dialysis Qualified Code(s): N18.6 - End stage renal disease; D63.1 - Anemia in chronic kidney disease; Z99.2 - Dependence on renal dialysis (4) Abdominal ascites Ascites type: other type Qualified Code(s): R18.8 - Other ascites
--- NOTE | 2023-09-28 18:25 | Billing Data ---
Date of Service September 28, 2023 Coding Level of Care Code 16880 SUB INP/OBS CARE
--- NOTE | 2023-09-29 06:48 | Hospitalist Progress Note ---
Date of Service September 29, 2023 Assessment & Plan (1) Acute on chronic hypoxic respiratory failure: (2) CHF (congestive heart failure): (3) PAF (paroxysmal atrial fibrillation): (4) Multifocal pneumonia: (5) ESRD on dialysis: (6) Anemia: (7) Seizure disorder: (8) COPD (chronic obstructive pulmonary disease): (9) Chronic GERD: (10) Physician orders for life-sustaining treatment (POLST) form indicates patient wish for [id number] status: Plan Pt is a 73 yo male with a past medical history of ESRD on dialysis -, COPD on 2L O2 at baseline, HFmrEF, atrial flutter, hx intracranial hemorrhage, polycystic kidney disease, BPH, HTN, liver cirrhosis, PTSD, and tremor who presents to the hospital on 09/25 for progressive SOB and increased oxygen needs for 1 day. To get dialysis again today per nephro, hopeful D/C tomorrow when transport is available. #Acute hypoxic resp failure, resolved - secondary to pneumonia vs CHF exac vs COPD exac - on 2L baseline at home of O2 - will plan for dialysis today and will reevaluate resp status after dialysis - if improved after dialysis with fluid removal, this would favor CHF exac - if not improved after dialysis, would favor COPD exac vs pneumonia - improved after dialysis so most likely CHF more than other causes but some part may also be a COPD exac with steroids still on board #Multifocal pneumonia per CT, most likely from previous pneumonia - noted on CXR on admission, along with small b/l pleural effusions - biofire neg, MRSA nasal swab neg - Procalcitonin wnl, CRP 4.8, WBC on admission 11 - zosyn discontinued as with procal neg and improvement in resp status with dialysis, most likely his resp distress was from CHF - this is most likely residual from pneumonia 2 weeks ago, thanh with norm procalc #CHF (congestive heart failure), possible exacerbation - last echo 04/2023; EF 55-60% - BNP on admission elevated 2408 (prior 1384 on 06/18/23) - HD today, follow nephrology recs - will do lasix BID on discharge #COPD, possible exacerbation - Solu-Medrol 40 mg IV QAM - azithromycin started for anti-inflam effects - Continue home inhalers #ESRD on hemodialysis --F - no missed sessions the last few weeks - Nephrology consulted for inpatient dialysis - Continue [facility] T/Th/Fr - Avoid nephrotoxic agents where possible #PAF (paroxysmal atrial fibrillation) - EKG on arrival revealed sinus tachycardia at 105 bpm; LVH with QRS widening; QTc 541 (caution use of QT prolonging agents) - Continuous telemetry monitoring - Continue amiodarone #Anemia, chronic - Chronic in the setting of ESRD; Hgb 10.8 on arrival, around baseline - Monitor a.m. labs #Seizure disorder - Continue divalproex #GERD - continue home famotidine Admission and Anticipated Discharge Date Admission Date: September 26, 2023 Supervising Physician Co-Signing Physician Notes I personally examined the patient and verified all reyes points of history and exam, discussed case, and agree with decision making with Dr Lund No new issues or problems. Resting comfortably. Was for return to [facility] today hopefullybut unfortunately was not able to transfer due to time of dialysis versus ability to transport. Resting comfortably. Vitals noted, breathing unlabored. Hypoxiainitial differentials being acute diastolic CHF/pulmonary edema, COPD exacerbation, refractory pneumoniaat this point with nothing appearing septic refractory pneumonia appears to have been ruled out. suspect both acute on chronic diastolic CHF > COPD exacerbation with elements of both. ongoing HD per nephro, continue steroids for a short course. since very low concern for refractory pneumonia - stopped antibiotics. hearing loss - refer to ENT. does not appear to have capacity, family are decision makers. otherwise as above Subjective Pt is a 73 yo male with a past medical history of ESRD on dialysis M-W-F, COPD on 2L O2 at baseline, HFmrEF, atrial flutter, hx intracranial hemorrhage, polycystic kidney disease, BPH, HTN, liver cirrhosis, PTSD, and tremor who presents to the hospital on 09/25 for progressive SOB and increased oxygen needs for 1 day. Today, pt states his breathing feels fine and he feels fine, wanting to go home at this point. Tolerating diet without issues. No chest pain or SOB. No questions or complaints at this point except wanting to go home. Review of Systems Review of Systems: Per HPI. Physical Exam Physical Exam: General:Alert, no acute distress, Cardio: Regular rate and rhythm on exam today, Resp:No respiratory distress, fair air movement with some crackles noted that are improved from yesterday Skin: Warm, pink, dry, Psych: Mood-affect congruence. Results & Data Results & Data Vital Signs (Past 12 Hours) Vital Signs Temp Pulse Pulse Resp BP Pulse Ox O2 Del Method 09/29/23 03:14 36.7 C 89 18 120/68 96 Nasal Cannula 09/29/23 01:56 86 20 95 Nasal Cannula 09/28/23 23:02 92 H 09/28/23 23:01 36.9 C 91 H 16 115/71 95 Nasal Cannula 09/28/23 21:15 Nasal Cannula 09/28/23 20:09 83 20 93 Nasal Cannula 09/28/23 19:42 36.9 C 83 19 121/65 99 Nasal Cannula O2 Flow Rate 09/29/23 03:14 2 09/29/23 01:56 2 09/28/23 23:02 09/28/23 23:01 2 09/28/23 21:15 2 09/28/23 20:09 2 09/28/23 19:42 2 Resident Activity Tracking Resident Involvement: Resident Care Provided Care Provided: Adult Hospital Medicine (6) Anemia Anemia type: unspecified type Qualified Code(s): D64.9 - Anemia, unspecified (8) COPD (chronic obstructive pulmonary disease) COPD type: unspecified COPD Qualified Code(s): J44.9 - Chronic obstructive pulmonary disease, unspecified
[2023-09-29 07:44] LABS: Basophils # (auto) 0.05 K/uL (0.00-0.20); Basophils % (auto) 0.8 %; Eosinophils # (auto) 0.24 K/uL (0.00-0.50); Hematocrit (blood only) 31.8 % (42.0-52.0); Hemoglobin 9.9 g/dl (14.0-18.0); Immature Granulocytes # (auto) 0.02 K/uL (0.01-0.20); Immature Granulocytes % (auto) 0.3 %; Lymphocytes # (auto) 1.02 K/uL (1.20-3.40); Lymphocytes % (auto) 16.9 %; Mean Corpuscular Hemoglobin 28.4 pg (25.0-34.0); Mean Corpuscular Hgb Conc 31.1 g/dL (32.0-36.0); Mean Corpuscular Volume 91.1 fL (80.0-100.0); Mean Platelet Volume 10.1 fL (9.4-12.4); Monocytes # (auto) 0.77 K/uL (0.11-0.59); Monocytes % (auto) 12.7 %; Neutrophils # (auto) 3.94 K/uL (1.40-6.50); Neutrophils % (auto) 65.3 %; Platelet Count 186 K/uL (130-400); RDW Standard Deviation 64.4 fL (36.4-46.3); Red Blood Count 3.49 M/uL (4.70-6.10); White Blood Count 6.04 K/ul (4.8-10.8)
[2023-09-29 08:26] LABS: BUN Creatinine Ratio 8.3 (10-20); Calcium 8.8 mg/dl (8.6-10.3); Creatinine Clr Calc Pharmacy 10.5 ml/min; Est GFR (African American) 8.3 ml/min; Est GFR (Non-African American) 7.2 ml/min; Potassium 3.8 mmol/L (3.5-5.1)
--- NOTE | 2023-09-29 10:41 | Nephrology Progress Note ---
Date of Service September 29, 2023 Assessment & Plan (1) ESRD on dialysis: (2) Multifocal pneumonia: (3) Anemia: (4) Abdominal ascites: (5) Acute respiratory failure with hypoxia: Plan 72 year-old gentlemen with ESRD secondary to polycystic kidney disease, on HD MWF at [facility]. Admitted with acute respiratory failure and hypoxia secondary to multifocal pneumonia and bilateral pleural effusion. Labs are within acceptable limit. Chest x-ray showing multifocal pneumonia, pulmonary congestion and pleural effusion. Started empirically on Zosyn and linezolid. Had dialysis and had 4 L UF Wednesday although still above his dry weight, electrolyte acceptable. BP fair. --HD today, UF as tolerated considering he is still above his dry weight. --increase Lasix to 40 mg bid. --left arm nephrology precaution, continue on renal diet, dose medications for eGFR less than 10 --continue phosphate binder with meal, nephro caps and Sensipar Admission and Anticipated Discharge Date Admission Date: September 26, 2023 Abraham Laird was seen and evaluated this morning. He was sleeping as he did not sleep last night. Looked comfortable, family was at bedside. Electrolyte acceptable. Blood pressure fair. Review of Systems Review of Systems: Detailed review of system was done and pertinent positives and negatives mentioned above. Physical Exam Constitutional: WD/WN, vitals as above no acute distress Eyes: + anicteric sclerae Neck: normal visual inspection Respiratory: no respiratory distress Auscultation: + crackles; no wheezes Cardiovascular: Rate/Rhythm: regular rate and regular rhythm Heart Sounds: normal S1 and normal S2 Extremities: + AV fistula (Left BC AVF with thrill and bruit.) Gastrointestinal (Abdomen): Inspection/Auscultation: + abdomen distended Percussion/Palpation: abdomen soft; no guarding and abdomen not rigid Musculoskeletal: Extremities: extremities normal to inspection Skin: no rashes, warm and dry Results & Data Vital Signs (Past 12 Hours) Vital Signs Temp Pulse Pulse Resp BP Pulse Ox O2 Del Method 09/29/23 07:16 88 16 90 Nasal Cannula 09/29/23 07:05 37.0 C 88 19 142/74 H 92 Nasal Cannula 09/29/23 03:14 36.7 C 89 18 120/68 96 Nasal Cannula 09/29/23 01:56 86 20 95 Nasal Cannula 09/28/23 23:02 92 H 09/28/23 23:01 36.9 C 91 H 16 115/71 95 Nasal Cannula O2 Flow Rate 09/29/23 07:16 2 09/29/23 07:05 2 09/29/23 03:14 2 09/29/23 01:56 2 09/28/23 23:02 09/28/23 23:01 2 PG Care Time/CCT Total # of Minutes Spent Total Time Spent with Patient: Total time spent is greater than 50% in coordination of care (as documented) at patient's floor/unit and/or counseling patient: Coding Level of Care Code 83864 SUB INP/OBS CARE 235MIN Diagnoses ESRD on dialysis N18.6; Z99.2 Multifocal pneumonia J18.9 Anemia N18.6; D63.1; Z99.2 Anemia type: due to chronic kidney disease Chronic kidney disease stage: on chronic dialysis Abdominal ascites R18.8 Ascites type: other type Acute respiratory failure with hypoxia J96.01 (3) Anemia Anemia type: due to chronic kidney disease Chronic kidney disease stage: on chronic dialysis Qualified Code(s): N18.6 - End stage renal disease; D63.1 - Anemia in chronic kidney disease; Z99.2 - Dependence on renal dialysis (4) Abdominal ascites Ascites type: other type Qualified Code(s): R18.8 - Other ascites
--- NOTE | 2023-09-29 12:55 | Palliative Care Consultation ---
Date of Consultation September 29, 2023 Assessment & Plan (1) Alzheimer disease: * [place] Cognitive Assessment Test (MoCA) testing was completed at bedside. Mr. Redmond scored a 6/30 on the MoCA today. This is indicative of severe cognitive impairment. The MoCA test has been validated as a highly sensitive tool for early detection of mild cognitive impairment (MCI) in hundreds of peer-reviewed studies since 1999. MoCA has been widely adopted in clinical settings and used in academic and non-academic research around the world. The sensitivity of MoCA for detecting MCI is 90%, compared to 18% for the MMSE. MoCA is an useful tool for examining a persons cognitive functioning: it examines a number of thinking processes, including calculations, awareness, language, short-term and working memory, attention span, and orientation. of note, the MoCA does not discern the type of dementia. * MoCA is validated as a highly sensitive tool for early detection of mild cognitive impairment (MCI) in hundreds of peer-reviewed studies since 1999. MoCA has been widely adopted in clinical settings and used in academic and non-academic research around the world. The sensitivity of MoCA for detecting MCI is 90%, compared to 18% for the MMSE. * He is NOT decisionally intact and does NOT have capacity to make his own decisions. He was not able to tell me the medical issues presently ongoing other than his "breathing isn't too good but it's never been great and I just want to shove out here." He does not process information about the complexity of medical issues and implications of choices. His comprehension is limited to the here and now, ex "I want to sleep, I want a cookie, turn up the TV." (2) Dyspnea and respiratory abnormalities: (3) Generalized weakness: (4) Dementia with behavioral disturbance: (5) Cognitive impairment: (6) Discussion about advance care planning held with family member: Spoke with Niurka and Darion COLÓN and Kimmie x 20min, Darion present telephonically. Advised on MoCA results POLST reviewed, pt cannot make his own decisions. MoCA validates severe congit magdi impairment. Darion Bah elects DNR/DNI, comfort care, no Abtx or IVF/PRIYANK in event of terminal event. Kimmie/ELDON in agreement. (7) Palliative care by specialist: Met with family. Provided overview of Palliative Medicine, a subspecialty that provides specialized medical care for people living with a serious illness by offering a focus on quality of life. Palliative Medicine is often conflated with hospice: I advised patient/family that Palliative and hospice can be partners but we are not the same. It is important to understand the difference so that we may be informed, and not afraid. Palliative Medicine works to improve QOL through reduction of symptom burden/more control over their illness, for both the patient and family. Palliative medicine clinicians are board certified, specially-trained and another member of the patient's medical care team. We often provide an extra layer of support because our care is based on the needs of the patient, not the prognosis; as such, it's appropriate at any age/advancing stage of a serious illness and can be provided along with curative treatment. Palliative Medicine clinicians are also trained in advanced communic ation methodologies, to facilitate complex discussions about advanced illness planning, which are needed to help assure that the treatment choices match the patient's goals, aka delivering Goal Concordant care. Finally, we discussed that hospice is a visiting nurse service that focuses on care delivered at the very end of life for patients with terminal illness, with life expectancy less than 6 month. Plan * Mr Redmond has severe cognitive impairment as demonstrated with score of 6/30 on MoCA assessed today. * Mr. Redmond DOES NOT have decisional capacity and cannot understand the implications of decisions or follow compelx medical decision making conversations. * I suspect his dementia is a mixed type of Alz + vascular dementia * He has comorbid COPD from prior heavy smoking with recurrent resp failure and overall resp decline. he cannot follow commands and cannot perform PFTs. CXR this admission demonstrates interstitial fibrotic change with emphysema/smoking related lung disease. COPD is progressive and incurable, his right heart failure will progress in sync with advancing lung failure and progressive resp failure events. * OP Pall Med clinic follow up offered for ongoing dementia and resp failure mgt, family has contact information. * All medical communication should go through Darion Bah and in her a bsence, Kimmie COLÓN. Thank you for allowing us to participate in the ongoing care of this patient. Please don't hesitate to call or page with any additional concerns. Dr. Ana Luisa Antunez DNP Director, Palliative Care History of Present Illness Reason for Consultation: discuss polst Attending Physician: Trent Christianson DO History of Present Illness Sisi is a 73yo gentleman from SNF admitted with hypoxic resp failure and progressive SOB. On EMS arrival, SpO2 50's on 5lpm and he was started on CPAP and duonebs. SpO2 improved. He is on TIW HD for ESRD ED labs demonstrated leukocytosis (WBC 11.31) with left shift; slight hyponatremia (Na 133); ESRD (Cr 6.22); elevated BUN (66); elevated troponin (27.2); elevated BNP (2408); normal procalcitonin CXR +multifocal PNA and he was started on IV Zosyn remains admitted for acute hypoxic respiratory failure; sepsis; multifocal pneumonia; ESRD on dialysis PMH includes dementia, ESRD on dialysis --, COPD on 2L O2 at baseline, HFmrEF, atrial flutter, hx intracranial hemorrhage, polycystic kidney disease, BPH, HTN, liver cirrhosis, PTSD, and tremor Allergies Allergy/AdvReac Type Severity Reaction Status Date / Time lisinopril AdvReac Intermediate COUGH Verified 09/26/23 18:24 Home Medications Medication Instructions Recorded Confirmed Type tiotropium 2.5 mcg-olodaterol 2.5 2 puff inhalation QAM #4 grams 02/18/21 09/26/23 Rx mcg/actuation mist for inhalation (Stiolto Respimat) polyethylene glycol 3350 17 17 g PO DAILY Constipation 06/30/21 09/26/23 History gram/dose oral powder (Miralax) docusate sodium 100 mg capsule 400 mg PO BID 07/31/21 09/26/23 History (Colace) cinacalcet 30 mg tablet (Sensipar) 30 mg PO QAM 03/27/22 09/26/23 History epinephrine 0.3 mg/0.3 mL 0.3 mg IM Q4H PRN Anaphylaxis 08/29/22 09/26/23 History injection, auto-injector (EpiPen) ipratropium 0.5 mg-albuterol 3 mg 3 ml inhalation Q4H PRN Shortness 08/29/22 09/26/23 History (2.5 mg base)/3 mL nebulization Of Breath Or Wheezing soln amiodarone 200 mg tablet 200 mg PO QPM 11/17/22 09/26/23 History divalproex 500 mg tablet,delayed 500 mg PO QAM 11/17/22 09/26/23 History release loratadine 10 mg tablet (Wal-itin) 10 mg PO Q2D #0 tabs 12/10/22 09/26/23 Rx cholecalciferol (vitamin D3) 125 5,000 unit PO QPM 01/05/23 09/26/23 History mcg (5,000 unit) capsule thiamine HCl (vitamin B1) 100 mg 100 mg PO QAM 01/05/23 09/26/23 History tablet guaifenesin 1,200 mg tablet, 1,200 mg PO BID PRN Congestion 02/18/23 09/26/23 History extended release 12 hr (Mucinex) tramadol 50 mg tablet 50 mg PO Q6H PRN Pain, Moderate 02/18/23 09/26/23 History trazodone 50 mg tablet 50 mg PO HS 02/18/23 09/26/23 History famotidine 20 mg tablet 20 mg PO DIRECTED 04/27/23 09/26/23 History melatonin 5 mg tablet 15 mg PO HS 04/27/23 09/26/23 History furosemide 40 mg tablet 40 mg PO QAM 06/18/23 09/26/23 History vitamin B complex-vitamin C-folic 1 tab PO DAILY 06/18/23 09/26/23 History acid 0.8 mg tablet ([place]-Ancelmo) acetaminophen 325 mg tablet 325 mg PO Q4H PRN PAIN/FEVER 08/31/23 09/26/23 History ferric citrate 210 mg iron tablet 420 mg PO TIDM 08/31/23 09/26/23 History (Auryxia) lidocaine-prilocaine 2.5 %-2.5 % 1 applic topical UD 08/31/23 09/26/23 History topical cream ondansetron 4 mg disintegrating 4 mg PO Q6H PRN Nausea And Vomiting 08/31/23 09/26/23 History tablet sodium zirconium cyclosilicate 5 5 g PO DIRECTED 08/31/23 09/26/23 History gram oral powder packet (Lokelma) ketorolac 0.5 % eye drops 1 drp OPL QAM 09/26/23 09/26/23 History polyvinyl alcohol-povidone (PF) 1 drp OPB QID PRN Dry Eyes 09/26/23 09/26/23 History 1.4 %-0.6 % eye drops in a dropperette (Refresh Classic (PF)) prednisolone acetate 1 % eye 1 drp OPL QID 09/26/23 09/26/23 History drops,suspension protein supplement 30 ea PO BIDM 09/26/23 09/26/23 History white petrolatum (Vaseline jelly, 1 applic topical DAILY 09/26/23 09/26/23 History topical) Patient History Medical History (Updated 09/29/23 @ 12:53 by Ana Luisa Antunez DNP) Palliative care by specialist Discussion about advance care planning held with family member Cognitive impairment Dementia with behavioral disturbance Dyspnea and respiratory abnormalities Alzheimer disease progressive decline September 2023 with worsening cognitive function. MoCA testing done patient scored 12/18/test is scanned in EMR. HE IS NOT DECISIONALLY COMPETENT. HIS MEDICAL POA IS DAUGHTER DARION HDEZ AND HIS LEGAL/FINANCIAL POA IS GRAND DAUGHTER KIMMIE LUNA WHO WORKS HERE AT [facility] [employer]. PAF (paroxysmal atrial fibrillation) COPD (chronic obstructive pulmonary disease) FORMER HEAVY SMOKER, OXYGEN DEPENDENT Encounter for pre-operative examination Polycystic kidney disease, adult type (09/03/12) History of home oxygen therapy 2L oxygen prn sat <90% per med record Limb alert care status LUE AV fistula LUE Hx MRSA infection ~02/2023, nares>per med record Hx of chest pain per med record from long term Alcoholic cirrhosis of liver with ascites Abnormal levels of other serum enzymes Gastrointestinal hemorrhage, unspecified End stage renal disease Unspecified intestinal obstruction, unspecified as to partial versus complete obstruction Chronic respiratory failure with hypoxia Insomnia Unspecified abnormalities of gait and mobility Low back pain, unspecified Unspecified fall, initial encounter Pain in unspecified wrist Fluid overload Acute respiratory failure with hypoxia Metabolic encephalopathy Epilepsy, unspecified, intractable, without status epilepticus Fall Bladder mass Cirrhosis of liver Ascites Confusion Ruptured middle cerebral artery aneurysm Seizure disorder Myoclonic jerking Bradycardia History of marijuana use daily Hx of atrial flutter 06/2021, hospitalized w/pneumonia for almost 3 weeks; dx atrial flutter- currently amiodarone; f/u dr. ad[place], [place] Paroxysmal atrial flutter Vitamin D deficiency Hypercalcemia Diverticulosis Gout hx Tremor of both hands Hypertension On home oxygen therapy 2L N/C at hs Low back pain Hemorrhoids "not currently flared" Benign neoplasm of skin of nose removed once HTN (hypertension) Anemia Intracranial hemorrhage 2012 Secondary hyperparathyroidism (of renal origin) Benign prostate hyperplasia Surgical History Hx of right cataract extraction S/P dialysis catheter insertion 09/2022, [facility] History of esophagogastroduodenoscopy (EGD) Hx of cardiac cath 07/2022, [facility], no stents History of abdominal paracentesis multiple, most recent 08/26/23 Status post creation of arteriovenous fistula LUE History of colonoscopy History of tooth extraction all teeth History of cerebral aneurysm repair 2012 [facility] [place]--clip in place; clip IS MRI COMPATIBLE Family History Mother , age 65 of cancer Cancer Father , age 60 from a tree falling on him No problems noted. Other No family history of adverse response to anesthesia Denies family history of Myocardial infarction Social History Smoking Status: Former smoker Tobacco Type: Cigarettes Age Started Using Tobacco: 16; Age Quit Using Tobacco: 71; packs per day: 1; Cigarettes Per Day: 1 pack; Second Hand Exposure: No; Do You Dip or Chew Tobacco: No; Hx Alcohol Use: Yes Alcohol type: beer Alcohol Intake Frequency Comment: None x2 years Hx Substance Use: Yes Last Used Substance: Unknown Last Used Substance Other:: 8 months or more Substance Use Type Other:: marijuana Preferred Language: Pashto Communication Ability: Effective Communication Ability Comment: "able to sign own consents" Cage Manager Required: No Beliefs That Will Affect Care: None marital status: Single Current Living Situation: Senior Care Current Living Situation Comment: [facility] How many Children do You have: 1 Feels Safe at Home: Yes Assistive Devices: Oxygen - Continuous and Walker Review of Systems Review of Systems: Unobtainable due to cognitive status Physical Exam Physical Exam: frail, chronically ill elderly male resting in bed, semi reclined Awakens to name, place = "[facility]" and city = "[facility]", month = august, year "2023, right?" bitemp wasting PERRLA neck supple dentition poor MM pink no stridor lungs diminished with scatt rhonchi, no wheezing no gross JVD S1S2, +murmur Abd softly distended, BS+, NTP ANG with generalized weakness MoCA testing completed at bedside, copy scanned to EMR Score 6/30 indicates severe cognitive impairment Results & Data Vital Signs (Past 12 Hours) Vital Signs Temp Pulse Resp BP Pulse Ox O2 Del Method O2 Flow Rate 09/29/23 10:51 36.9 C 94 H 18 142/77 H 90 Nasal Cannula 2 09/29/23 07:16 88 16 90 Nasal Cannula 2 09/29/23 07:05 37.0 C 88 19 142/74 H 92 Nasal Cannula 2 09/29/23 03:14 36.7 C 89 18 120/68 96 Nasal Cannula 2 09/29/23 01:56 86 20 95 Nasal Cannula 2 Laboratory Results 09/29/23 09/28/23 09/27/23 Range/Units 07:21 09:48 06:10 WBC 6.04 5.72 (4.8-10.8) K/ul RBC 3.49 L 3.57 L (4.70-6.10) M/uL Hgb 9.9 L 10.0 L (14.0-18.0) g/dl Hct 31.8 L 34.0 L (42.0-52.0) % MCV 91.1 95.2 (80.0-100.0) fL MCH 28.4 28.0 (25.0-34.0) pg MCHC 31.1 L 29.4 L (32.0-36.0) g/dL RDW Std Deviation 64.4 H 67.3 H (36.4-46.3) fL RDW Coeff of Giovana 19.0 H 19.2 H (11.5-14.5) % Plt Count 186 168 (130-400) K/uL MPV 10.1 9.0 L (9.4-12.4) fL Immature Gran % (Auto) 0.3 0.3 % Neut % (Auto) 65.3 75.7 % Lymph % (Auto) 16.9 10.0 % Chase % (Auto) 12.7 9.8 % Eos % (Auto) 4.0 3.3 % Baso % (Auto) 0.8 0.9 % Neut # (Auto) 3.94 4.33 (1.40-6.50) K/uL Lymph # (Auto) 1.02 L 0.57 L (1.20-3.40) K/uL Chase # (Auto) 0.77 H 0.56 (0.11-0.59) K/uL Eos # (Auto) 0.24 0.19 (0.00-0.50) K/uL Baso # (Auto) 0.05 0.05 (0.00-0.20) K/uL Immature Gran # (Auto) 0.02 0.02 (0.01-0.20) K/uL VBG pH (7.36-7.41) VBG pCO2 (38-50) mmHg VBG pO2 mmHg VBG HCO3 mmol/L VBG O2 Saturation % VBG Base Excess mEq/L Sodium 137 137 (136-145) mmol/L Potassium 3.8 4.0 (3.5-5.1) mmol/L Chloride 97 L 98 (98-107) mmol/L Carbon Dioxide 30 31 (21-32) mmol/L Anion Gap 10 8 (3-11) BUN 57 H 41 H D (6-23) mg/dl Creatinine 6.90 H* D 5.56 H* D (0.6-1.4) mg/dl Est Cr Clr Drug Dosing 10.5 13.0 ml/min Est GFR ( Amer) 8.3 10.8 ml/min Est GFR (Non-Af Amer) 7.2 9.3 ml/min BUN/Creatinine Ratio 8.3 L 7.4 L (10-20) Glucose 106 H 135 H (70-99(Fasting)) mg/dl Lactate (0.4-2.0) mmol/L Calcium 8.8 9.0 (8.6-10.3) mg/dl Phosphorus 3.3 (2.5-4.9) mg/dl Magnesium (1.7-2.4) mg/dl Total Bilirubin (0.2-1.0) mg/dl Direct Bilirubin (0-0.2) mg/dl AST (13-39) U/L ALT (7-52) U/L Alkaline Phosphatase (34-104) U/L Troponin I High Sens (0-20) pg/ml C-Reactive Protein 3.98 H (0-0.5) mg/dl B-Natriuretic Peptide (0-100) pg/ml Total Protein (6.0-8.3) gm/dl Albumin 3.1 L (3.4-5.0) gm/dl Procalcitonin (0-0.5) ng/ml Urine Color Urine Appearance (Clear) Urine pH (4.5-7.5) Ur Specific Walsh (1.000-1.030) Urine Protein (Negative) Urine Glucose (UA) (Negative) Urine Ketones (Negative) Urine Blood (Negative) Urine Nitrite (Negative) Urine Bilirubin (Negative) Urine Urobilinogen (Negative) Ur Leukocyte Esterase (Negative) Urine WBC (Auto) (0-5) /hpf Urine RBC (Auto) (0-4) /hpf U Hyaline Cast (Auto) (0-5) /lpf U Epithel Cells (Auto) (0-5) /lpf Urine Bacteria (Auto) (Negative) Nasal Screen MRSA (PCR) (Negative) Adenovirus (PCR) (NotDetected) B. pertussis DNA (PCR) (NotDetected) B.parapertussis DNA PCR (NotDetected) C. pneumoniae DNA (PCR) (NotDetected) Coronavirus OC43 (PCR) (NotDetected) Coronavirus HKU1 (PCR) (NotDetected) Coronavirus 229E (PCR) (NotDetected) SARS-CoV-2 (PCR) (NotDetected) Coronavirus NL63 (PCR) (NotDetected) Hep Bs Antigen NON-REACTIVE (NON-REACTIVE) Hep Bs Ag Confirmation TNP Human Metapneumovir PCR (NotDetected) Influenza Type A (PCR) (NotDetected) Influenza Type B (PCR) (NotDetected) M. pneumoniae (PCR) (NotDetected) Parainfluenza 1 (PCR) (NotDetected) Parainfluenza 2 (PCR) (NotDetected) Parainfluenza 3 (PCR) (NotDetected) Parainfluenza 4 (PCR) (NotDetected) RSV (PCR) (NotDetected) Entero/Rhino (PCR) (NotDetected) 09/27/23 09/27/23 09/26/23 Range/Units 06:05 00:45 23:26 WBC 5.88 (4.8-10.8) K/ul RBC 3.67 L (4.70-6.10) M/uL Hgb 10.3 L (14.0-18.0) g/dl Hct 34.1 L (42.0-52.0) % MCV 92.9 (80.0-100.0) fL MCH 28.1 (25.0-34.0) pg MCHC 30.2 L (32.0-36.0) g/dL RDW Std Deviation 65.5 H (36.4-46.3) fL RDW Coeff of Giovana 19.2 H (11.5-14.5) % Plt Count 184 (130-400) K/uL MPV 10.0 (9.4-12.4) fL Immature Gran % (Auto) 0.3 % Neut % (Auto) 80.9 % Lymph % (Auto) 9.5 % Chase % (Auto) 9.0 % Eos % (Auto) 0.0 % Baso % (Auto) 0.3 % Neut # (Auto) 4.75 (1.40-6.50) K/uL Lymph # (Auto) 0.56 L (1.20-3.40) K/uL Chase # (Auto) 0.53 (0.11-0.59) K/uL Eos # (Auto) 0.00 (0.00-0.50) K/uL Baso # (Auto) 0.02 (0.00-0.20) K/uL Immature Gran # (Auto) 0.02 (0.01-0.20) K/uL VBG pH 7.36 7.44 H (7.36-7.41) VBG pCO2 56 H 55 H (38-50) mmHg VBG pO2 42 56 mmHg VBG HCO3 32 37 mmol/L VBG O2 Saturation 67.4 89.1 % VBG Base Excess 4.6 11.1 mEq/L Sodium 132 L (136-145) mmol/L Potassium 4.5 (3.5-5.1) mmol/L Chloride 91 L (98-107) mmol/L Carbon Dioxide 30 (21-32) mmol/L Anion Gap 11 (3-11) BUN 73 H (6-23) mg/dl Creatinine 7.55 H* D (0.6-1.4) mg/dl Est Cr Clr Drug Dosing 9.6 ml/min Est GFR ( Amer) 7.5 ml/min Est GFR (Non-Af Amer) 6.5 ml/min BUN/Creatinine Ratio 9.7 L (10-20) Glucose 133 H (70-99(Fasting)) mg/dl Lactate (0.4-2.0) mmol/L Calcium 9.4 (8.6-10.3) mg/dl Phosphorus (2.5-4.9) mg/dl Magnesium (1.7-2.4) mg/dl Total Bilirubin (0.2-1.0) mg/dl Direct Bilirubin (0-0.2) mg/dl AST (13-39) U/L ALT (7-52) U/L Alkaline Phosphatase (34-104) U/L Troponin I High Sens 56.6 H* 50.7 H* D (0-20) pg/ml C-Reactive Protein 4.84 H (0-0.5) mg/dl B-Natriuretic Peptide (0-100) pg/ml Total Protein (6.0-8.3) gm/dl Albumin (3.4-5.0) gm/dl Procalcitonin (0-0.5) ng/ml Urine Color Urine Appearance (Clear) Urine pH (4.5-7.5) Ur Specific Walsh (1.000-1.030) Urine Protein (Negative) Urine Glucose (UA) (Negative) Urine Ketones (Negative) Urine Blood (Negative) Urine Nitrite (Negative) Urine Bilirubin (Negative) Urine Urobilinogen (Negative) Ur Leukocyte Esterase (Negative) Urine WBC (Auto) (0-5) /hpf Urine RBC (Auto) (0-4) /hpf U Hyaline Cast (Auto) (0-5) /lpf U Epithel Cells (Auto) (0-5) /lpf Urine Bacteria (Auto) (Negative) Nasal Screen MRSA (PCR) Negative (Negative) Adenovirus (PCR) (NotDetected) B. pertussis DNA (PCR) (NotDetected) B.parapertussis DNA PCR (NotDetected) C. pneumoniae DNA (PCR) (NotDetected) Coronavirus OC43 (PCR) (NotDetected) Coronavirus HKU1 (PCR) (NotDetected) Coronavirus 229E (PCR) (NotDetected) SARS-CoV-2 (PCR) (NotDetected) Coronavirus NL63 (PCR) (NotDetected) Hep Bs Antigen (NON-REACTIVE) Hep Bs Ag Confirmation Human Metapneumovir PCR (NotDetected) Influenza Type A (PCR) (NotDetected) Influenza Type B (PCR) (NotDetected) M. pneumoniae (PCR) (NotDetected) Parainfluenza 1 (PCR) (NotDetected) Parainfluenza 2 (PCR) (NotDetected) Parainfluenza 3 (PCR) (NotDetected) Parainfluenza 4 (PCR) (NotDetected) RSV (PCR) (NotDetected) Entero/Rhino (PCR) (NotDetected) 09/26/23 09/26/23 09/26/23 Range/Units 23:15 19:38 18:02 WBC (4.8-10.8) K/ul RBC (4.70-6.10) M/uL Hgb (14.0-18.0) g/dl Hct (42.0-52.0) % MCV (80.0-100.0) fL MCH (25.0-34.0) pg MCHC (32.0-36.0) g/dL RDW Std Deviation (36.4-46.3) fL RDW Coeff of Giovana (11.5-14.5) % Plt Count (130-400) K/uL MPV (9.4-12.4) fL Immature Gran % (Auto) % Neut % (Auto) % Lymph % (Auto) % Chase % (Auto) % Eos % (Auto) % Baso % (Auto) % Neut # (Auto) (1.40-6.50) K/uL Lymph # (Auto) (1.20-3.40) K/uL Chase # (Auto) (0.11-0.59) K/uL Eos # (Auto) (0.00-0.50) K/uL Baso # (Auto) (0.00-0.20) K/uL Immature Gran # (Auto) (0.01-0.20) K/uL VBG pH (7.36-7.41) VBG pCO2 (38-50) mmHg VBG pO2 mmHg VBG HCO3 mmol/L VBG O2 Saturation % VBG Base Excess mEq/L Sodium (136-145) mmol/L Potassium (3.5-5.1) mmol/L Chloride (98-107) mmol/L Carbon Dioxide (21-32) mmol/L Anion Gap (3-11) BUN (6-23) mg/dl Creatinine (0.6-1.4) mg/dl Est Cr Clr Drug Dosing ml/min Est GFR ( Amer) ml/min Est GFR (Non-Af Amer) ml/min BUN/Creatinine Ratio (10-20) Glucose (70-99(Fasting)) mg/dl Lactate (0.4-2.0) mmol/L Calcium (8.6-10.3) mg/dl Phosphorus (2.5-4.9) mg/dl Magnesium (1.7-2.4) mg/dl Total Bilirubin (0.2-1.0) mg/dl Direct Bilirubin (0-0.2) mg/dl AST (13-39) U/L ALT (7-52) U/L Alkaline Phosphatase (34-104) U/L Troponin I High Sens 38.7 H D (0-20) pg/ml C-Reactive Protein (0-0.5) mg/dl B-Natriuretic Peptide (0-100) pg/ml Total Protein (6.0-8.3) gm/dl Albumin (3.4-5.0) gm/dl Procalcitonin (0-0.5) ng/ml Urine Color Yellow Urine Appearance Clear (Clear) Urine pH >= 9.0 H (4.5-7.5) Ur Specific Walsh 1.008 (1.000-1.030) Urine Protein 2+ H (Negative) Urine Glucose (UA) Negative (Negative) Urine Ketones Negative (Negative) Urine Blood 1+ H (Negative) Urine Nitrite Negative (Negative) Urine Bilirubin Negative (Negative) Urine Urobilinogen Negative (Negative) Ur Leukocyte Esterase 3+ H (Negative) Urine WBC (Auto) 5-10 H (0-5) /hpf Urine RBC (Auto) 0-4 (0-4) /hpf U Hyaline Cast (Auto) 0 (0-5) /lpf U Epithel Cells (Auto) >30 H (0-5) /lpf Urine Bacteria (Auto) Negative (Negative) Nasal Screen MRSA (PCR) (Negative) Adenovirus (PCR) Not Detected (NotDetected) B. pertussis DNA (PCR) Not Detected (NotDetected) B.parapertussis DNA PCR Not Detected (NotDetected) C. pneumoniae DNA (PCR) Not Detected (NotDetected) Coronavirus OC43 (PCR) Not Detected (NotDetected) Coronavirus HKU1 (PCR) Not Detected (NotDetected) Coronavirus 229E (PCR) Not Detected (NotDetected) SARS-CoV-2 (PCR) Not Detected (NotDetected) Coronavirus NL63 (PCR) Not Detected (NotDetected) Hep Bs Antigen (NON-REACTIVE) Hep Bs Ag Confirmation Human Metapneumovir PCR Not Detected (NotDetected) Influenza Type A (PCR) Not Detected (NotDetected) Influenza Type B (PCR) Not Detected (NotDetected) M. pneumoniae (PCR) Not Detected (NotDetected) Parainfluenza 1 (PCR) Not Detected (NotDetected) Parainfluenza 2 (PCR) Not Detected (NotDetected) Parainfluenza 3 (PCR) Not Detected (NotDetected) Parainfluenza 4 (PCR) Not Detected (NotDetected) RSV (PCR) Not Detected (NotDetected) Entero/Rhino (PCR) Not Detected (NotDetected) 09/26/23 Range/Units 17:53 WBC 11.31 H (4.8-10.8) K/ul RBC 3.83 L (4.70-6.10) M/uL Hgb 10.8 L (14.0-18.0) g/dl Hct 36.1 L (42.0-52.0) % MCV 94.3 (80.0-100.0) fL MCH 28.2 (25.0-34.0) pg MCHC 29.9 L (32.0-36.0) g/dL RDW Std Deviation 67.3 H (36.4-46.3) fL RDW Coeff of Giovana 19.3 H (11.5-14.5) % Plt Count 224 (130-400) K/uL MPV 9.5 (9.4-12.4) fL Immature Gran % (Auto) 0.7 % Neut % (Auto) 82.8 % Lymph % (Auto) 6.7 % Chase % (Auto) 7.6 % Eos % (Auto) 1.6 % Baso % (Auto) 0.6 % Neut # (Auto) 9.36 H (1.40-6.50) K/uL Lymph # (Auto) 0.76 L (1.20-3.40) K/uL Chase # (Auto) 0.86 H (0.11-0.59) K/uL Eos # (Auto) 0.18 (0.00-0.50) K/uL Baso # (Auto) 0.07 (0.00-0.20) K/uL Immature Gran # (Auto) 0.08 (0.01-0.20) K/uL VBG pH 7.33 L (7.36-7.41) VBG pCO2 70 H (38-50) mmHg VBG pO2 57 mmHg VBG HCO3 37 mmol/L VBG O2 Saturation 87.0 % VBG Base Excess 8.3 mEq/L Sodium 133 L (136-145) mmol/L Potassium 4.4 (3.5-5.1) mmol/L Chloride 94 L (98-107) mmol/L Carbon Dioxide 31 (21-32) mmol/L Anion Gap 8 (3-11) BUN 66 H (6-23) mg/dl Creatinine 6.22 H* (0.6-1.4) mg/dl Est Cr Clr Drug Dosing 11.6 ml/min Est GFR ( Amer) 9.5 ml/min Est GFR (Non-Af Amer) 8.2 ml/min BUN/Creatinine Ratio 10.6 (10-20) Glucose 154 H (70-99(Fasting)) mg/dl Lactate 0.8 (0.4-2.0) mmol/L Calcium 9.4 (8.6-10.3) mg/dl Phosphorus (2.5-4.9) mg/dl Magnesium 2.1 (1.7-2.4) mg/dl Total Bilirubin 0.5 (0.2-1.0) mg/dl Direct Bilirubin 0.2 (0-0.2) mg/dl AST 13 (13-39) U/L ALT 7 (7-52) U/L Alkaline Phosphatase 82 (34-104) U/L Troponin I High Sens 27.2 H (0-20) pg/ml C-Reactive Protein (0-0.5) mg/dl B-Natriuretic Peptide 2408 H (0-100) pg/ml Total Protein 6.9 (6.0-8.3) gm/dl Albumin 3.6 (3.4-5.0) gm/dl Procalcitonin 0.36 (0-0.5) ng/ml Urine Color Urine Appearance (Clear) Urine pH (4.5-7.5) Ur Specific Walsh (1.000-1.030) Urine Protein (Negative) Urine Glucose (UA) (Negative) Urine Ketones (Negative) Urine Blood (Negative) Urine Nitrite (Negative) Urine Bilirubin (Negative) Urine Urobilinogen (Negative) Ur Leukocyte Esterase (Negative) Urine WBC (Auto) (0-5) /hpf Urine RBC (Auto) (0-4) /hpf U Hyaline Cast (Auto) (0-5) /lpf U Epithel Cells (Auto) (0-5) /lpf Urine Bacteria (Auto) (Negative) Nasal Screen MRSA (PCR) (Negative) Adenovirus (PCR) (NotDetected) B. pertussis DNA (PCR) (NotDetected) B.parapertussis DNA PCR (NotDetected) C. pneumoniae DNA (PCR) (NotDetected) Coronavirus OC43 (PCR) (NotDetected) Coronavirus HKU1 (PCR) (NotDetected) Coronavirus 229E (PCR) (NotDetected) SARS-CoV-2 (PCR) (NotDetected) Coronavirus NL63 (PCR) (NotDetected) Hep Bs Antigen (NON-REACTIVE) Hep Bs Ag Confirmation Human Metapneumovir PCR (NotDetected) Influenza Type A (PCR) (NotDetected) Influenza Type B (PCR) (NotDetected) M. pneumoniae (PCR) (NotDetected) Parainfluenza 1 (PCR) (NotDetected) Parainfluenza 2 (PCR) (NotDetected) Parainfluenza 3 (PCR) (NotDetected) Parainfluenza 4 (PCR) (NotDetected) RSV (PCR) (NotDetected) Entero/Rhino (PCR) (NotDetected) Diagnostic Findings Chest X-Ray 09/26/23 17:44 XR chest 1V portable CLINICAL HISTORY: Sepsis TECHNIQUE: Single frontal radiograph of the chest was obtained. Comparison: Comparison is made to chest radiograph 06/18/2023 FINDINGS: No lines and tubes are seen. Cardiomegaly is noted. The aortic arch is calcified. Multifocal airspace opacities are seen. This is superimposed upon a background of interstitial fibrotic change. There may be small bilateral pleural effusions. IMPRESSION: 1. Airspace opacities compatible with multifocal pneumonia. There is redemonstration of cardiomegaly and fibrotic changes. Follow-up to resolution is recommended. 2. Small bilateral pleural effusions. ACT 112: Negative or not required by law. Electronically signed by: Arthur Taylor M.D. 09/26/2023 6:[address] 09/27/23 12:03 CT head/brain wo con CLINICAL HISTORY: headache Technique: Contiguous axial CT images of the head were acquired from the base of the skull to the vertex without intravenous contrast administration. Images were viewed in brain, subdural and bone windows. Automated dose lowering techniques and/or adjustment according to patient size were utilized for this exam. Comparison: Comparison is made to CT head 06/18/2023 Findings: Areas of decreased attenuation are present in the periventricular and subcortical white matter bilaterally consistent with small vessel ischemic disease. Generalized cerebral atrophy with commensurate enlargement of the ventricles, sulci, and cisterns is also present. There is no acute intracranial hemorrhage or evidence of acute territorial infarction. No shift of the midline structures, mass effect, or extra-axial abnormalities are shown. Atherosclerotic calcifications are present in the intracranial segments of the internal carotid arteries. Left frontotemporal and right frontal encephalomalacia is unchanged from prior exam. Imaged portions of the paranasal sinuses and mastoid air cells are clear. The orbits appear normal. There are no acute fractures of the calvaria or scalp swelling. Impression: No acute intracranial hemorrhage, no evidence of acute territorial infarction or other acute intracranial disease process. ACT 112: Negative or not required by law. Electronically signed by: Arthur Taylor M.D. 09/27/2023 3:03 PM PG Care Time/CCT Total # of Minutes Spent Total Time Spent with Patient: Total time spent is greater than 50% in coordination of care (as documented) at patient's floor/unit and/or counseling patient: I spent 95 minutes overall addressing this case: 15 min in medical data review/discussion with referring pro vider(s) and/or preparation for the visit 30 min in direct interaction with the patient/exam 20 min in Advance Care Planning/Goals of Care discussions as detailed above in note (must be >16min) 15 min in subsequent review and synthesis of assessment and plan 15 min communicating with other providers regarding the patient's case: nursing, primary Advanced Care Planning 04875 Advanced Care Planning 30 [place] [address] IN/OBS CONSULT LVL 5,80M Patient Type New History Comprehensive Exam Comprehensive Medical Decision Making High Complexity Diagnoses Alzheimer disease G30.9; F02.80 Dyspnea and respiratory abnormalities R06.00; R06.89 Generalized weakness R53.1 Dementia with behavioral disturbance F03.918 Cognitive impairment R41.89 Discussion about advance care planning held with family member Z71.0 Palliative care by specialist Z51.5 Additional Codes Advanced Care Planning - 07792 Advanced Care Planning 30 Min: 93729 Advanced Care Planning 30 Min ([id number])
--- NOTE | 2023-09-29 18:47 | Billing Data ---
Date of Service September 29, 2023 Coding Level of Care Code 39716 SUB INP/OBS CARE
[2023-09-29] MEDS: MELATONIN 3 MG TAB PO PRN (21:57)
[2023-09-30 07:10] LABS: BUN Creatinine Ratio 6.1 (10-20); Calcium 9.1 mg/dl (8.6-10.3); Creatinine Clr Calc Pharmacy 15.4 ml/min; Est GFR (African American) 13.7 ml/min; Est GFR (Non-African American) 11.8 ml/min; Potassium 3.9 mmol/L (3.5-5.1)
--- NOTE | 2023-09-30 09:24 | Discharge Summary ---
Date of Service September 30, 2023 Admission HPI Per Admitting Provider Sisi is a 73-year-old gentleman with PMH of ESRD (on dialysis), COPD, atrial flutter, intracranial hemorrhage, BPH, polycystic kidney disease, HTN, liver cirrhosis, PTSD, and tremor. He presented via EMS from [facility] for acute onset of SOB on 09/25. Patient is a poor historian at time of admission, and most of the history is provided by his daughter (Jenny) at bedside. Patient was reportedly walking back from the bathroom around 4 PM without his normal supplemental oxygen (2 L NC) and his oxygen saturation began to drop. Nurse came to see him, and noticed that he was in the tripod position with accessory muscle use; SpO2 75% and titrated up to 5L NC. Patient was given a nebulizer breathing treatment at this time. Patient reportedly dropped to 55% per EMS, and patient was placed on BiPAP prior to arrival. Patient notes that he has SOB both at rest and with exertion. He sleeps in a recliner, as his breathing is often worse when lying flat. Patient notes that he has had a productive cough x 2 weeks. He endorses new onset back pain, which daughter reports is common when he develops pneumonia. Patient also endorses some pleuritic chest pain. Former smoker (marijuana and tobacco cigarettes); quit 6 years ago. He denies any recent alcohol use. Patient is hypertensive at 157/76 at time of admission; currently on BiPAP (FiO2 ratio 50). ED course: BiPAP Solu-Medrol 60 mg IV Zosyn 4.5 g IV ROS is difficult to obtain in patient's current state. However, endorses the following: SOB at rest, pleuritic CP, productive cough x 2 weeks, leg swelling, and new onset back pain. Patient denies fever, chills, night-sweats, chest pain, chest palpitations, or abdominal pain. Admission Exam Per Admitting Provider General: Acute respiratory distress; non-toxic appearing; frail appearing; cooperative; SpO2 93% on nonrebreather at 8L HEENT: normocephalic, atraumatic; no scleral icterus; PERRLA; dry mucus membrane; hard of hearing Neck: supple; positive for JVP; no lymphadenopathy; trachea midline Skin: warm, dry without signs of tenting; no cyanosis; no rashes, bruising, lesions, or erythema noted CV: chest wall NTP; RRR; S1/S2 normal; 3/6 systolic ejection murmur auscultated at the second ICS MCL; pulses intact and symmetric at radial, DP, and PT Lungs: Acute respiratory distress; accessory muscle use; barrel chested; diminished breath sounds across all lung munson with minimal expiratory wheeze ABD: Soft, NTP; BS present; no rebound/guarding; moderate distention MSK: no tics or fasciculations; +1 pitting edema in the LEs B/L, nonerythematous Neuro: A&O to name and ; able to provide month/year/location after hints; normal mood and affect; fluent speech; no focal deficits; sensation grossly intact in the LEs b/l Principal Diagnosis Congestive heart failure exac and possible COPD exac in the setting of end stage renal disease Discharge Exam General:Alert, no acute distress, Cardio: Regular rate and rhythm on exam today, Resp:No respiratory distress, fair air movement with some crackles noted that are improved from yesterday Skin: Warm, pink, dry, Psych: Mood-affect congruence. Discharge Data Allergies Allergy/AdvReac Type Severity Reaction Status Date / Time lisinopril AdvReac Intermediate COUGH Verified 09/26/23 18:24 Consultations 09/26/23 19:17 ED Decision to Admit Stat 09/27/23 01:37 Consult Nephrology Routine 09/28/23 18:21 Consult Palliative Care Routine Ordered Studies 09/27/23 12:03 CT head/brain wo con Urgent Hospital Course (1) Acute on chronic hypoxic respiratory failure: (2) CHF (congestive heart failure): (3) PAF (paroxysmal atrial fibrillation): (4) Multifocal pneumonia: (5) ESRD on dialysis: (6) Anemia: (7) Seizure disorder: (8) COPD (chronic obstructive pulmonary disease): (9) Chronic GERD: (10) Physician orders for life-sustaining treatment (POLST) form indicates patient wish for [id number] status: Plan Pt is a 73 yo male with a past medical history of ESRD on dialysis M-W-, COPD on 2L O2 at baseline, HFmrEF, atrial flutter, hx intracranial hemorrhage, polycystic kidney disease, BPH, HTN, liver cirrhosis, PTSD, and tremor who presents to the hospital on 09/25 for progressive SOB and increased oxygen needs for 1 day. #CHF (congestive heart failure), possible exacerbation - last echo 04/2023; EF 55-60% - BNP on admission elevated 2408 (prior 1384 on 06/18/23) - HD today, follow nephrology recs - will do lasix BID on discharge (up from just daily) #COPD, possible exacerbation - Solu-Medrol 40 mg IV QAM, will discharge with 40 mg prednisone for 2 days, start dose tomorrow 09/30 - azithromycin started for anti-inflam effects - Continue home inhalers #Serous otitis media - most likely will resolve in the coming weeks - recommend flonase BID for the next 7 days - likely to explain, at least partly, his worsened hearing #Acute hypoxic resp failure, resolved - secondary to pneumonia vs CHF exac vs COPD exac - on 2L baseline at home of O2 - will plan for dialysis today and will reevaluate resp status after dialysis - if improved after dialysis with fluid removal, this would favor CHF exac - if not improved after dialysis, would favor COPD exac vs pneumonia - improved after dialysis so most likely CHF more than other causes but some part may also be a COPD exac with steroids still on board #Multifocal pneumonia per CT, most likely from previous pneumonia - noted on CXR on admission, along with small b/l pleural effusions - biofire neg, MRSA nasal swab neg - Procalcitonin wnl, CRP 4.8, WBC on admission 11 - zosyn discontinued as with procal neg and improvement in resp status with dialysis, most likely his resp distress was from CHF - this is most likely residual from pneumonia 2 weeks ago, thanh with norm procalc #ESRD on hemodialysis -- - no missed sessions the last few weeks - Nephrology consulted for inpatient dialysis - Continue [facility] / - Avoid nephrotoxic agents where possible Total Time Total Time Spent Total Time Spent (In Minutes): <30 Discharge Plan Discharge Items Patient Disposition: Transfer Alf Fac Reason For Visit: RESPIRATORY DISTRESS Discharge Diagnosis: Congestive heart failure exac and possible COPD exac in the setting of end stage renal disease Activity: As commented below Activity Comment: As tolerated. Non-emergency contact: Primary Care Provider and Hyperbaric Tech Call non-emergency contact if: you have any medication questions and your symptoms worsen Follow-up/Referrals: Maximo Taylor MD [Primary Care Provider] - Diet: Regular Addtl Attending Provider Instructions: Pt is a 73 yo male with a past medical history of ESRD on dialysis -, COPD on 2L O2 at baseline, HFmrEF, atrial flutter, hx intracranial hemorrhage, polycystic kidney disease, BPH, HTN, liver cirrhosis, PTSD, and tremor who presents to the hospital on 09/25 for progressive SOB and increased oxygen needs for 1 day. #CHF (congestive heart failure), possible exacerbation - last echo 04/2023; EF 55-60% - BNP on admission elevated 2408 (prior 1384 on 06/18/23) - HD today, follow nephrology recs - will do lasix BID on discharge (up from just daily) #COPD, possible exacerbation - Solu-Medrol 40 mg IV QAM, will discharge with 40 mg prednisone for 2 days, start dose tomorrow 09/30 - azithromycin started for anti-inflam effects - Continue home inhalers #Serous otitis media - most likely will resolve in the coming weeks - recommend flonase BID for the next 7 days at least - likely to explain, at least partly, his worsened hearing #Acute hypoxic resp failure, resolved - secondary to pneumonia vs CHF exac vs COPD exac - on 2L baseline at home of O2 - will plan for dialysis today and will reevaluate resp status after dialysis - if improved after dialysis with fluid removal, this would favor CHF exac - if not improved after dialysis, would favor COPD exac vs pneumonia - improved after dialysis so most likely CHF more than other causes but some part may also be a COPD exac with steroids still on board #Multifocal pneumonia per CT, most likely from previous pneumonia - noted on CXR on admission, along with small b/l pleural effusions - biofire neg, MRSA nasal swab neg - Procalcitonin wnl, CRP 4.8, WBC on admission 11 - zosyn discontinued as with procal neg and improvement in resp status with dialysis, most likely his resp distress was from CHF - this is most likely residual from pneumonia 2 weeks ago, thanh with norm procalc #ESRD on hemodialysis -- - no missed sessions the last few weeks - Nephrology consulted for inpatient dialysis - Continue [facility] / - Avoid nephrotoxic agents where possible Pending Studies at Discharge: No Stand-Alone Forms: My [facility] Skilled Items Patient informed of condition?: Yes DNR: Yes Discharge Level of Care: Skilled Communicable Disease: No Discharge Prognosis: Stable Lines: None Urinary Catheter: No Medications and DC Order Prescriptions: New furosemide 40 mg tablet 40 mg PO BID 30 Days Qty: 60 1RF fluticasone propionate 50 mcg/actuation spray,suspension 1 spray intranasal BID 7 Days Qty: 16 1RF Rx Instructions: administer into each nostril prednisone 20 mg tablet 40 mg PO DAILY 2 Days Qty: 4 0RF Continued Stiolto Respimat 2.5-2.5 mcg/actuation mist 2 puff INH QAM Qty: 4 5RF docusate sodium [Colace] 100 mg capsule 400 mg PO BID polyethylene glycol 3350 [Miralax] 17 gram/dose Powder 17 g PO DAILY ipratropium-albuterol 0.5 mg-3 mg(2.5 mg base)/3 mL solution for nebulization 3 ml INHALATION Q4H PRN (Reason: Shortness Of Breath Or Wheezing) Rx Instructions: ALSO LOW 02 SATS epinephrine [EpiPen] 0.3 mg/0.3 mL Auto-Injector 0.3 mg IM Q4H PRN (Reason: Anaphylaxis) divalproex 500 mg tablet,delayed release (DR/EC) 500 mg PO QAM amiodarone 200 mg Tablet 200 mg PO QPM loratadine [Wal-itin] 10 mg Tablet 10 mg PO Q2D Qty: 0 0RF trazodone 50 mg Tablet 50 mg PO HS tramadol 50 mg Tablet 50 mg PO Q6H PRN (Reason: Pain, Moderate) guaifenesin [Mucinex] 1,200 mg Tablet Extended Release 12hr 1,200 mg PO BID PRN (Reason: Congestion) Trinidad-Ancelmo 0.8 mg Tablet 1 tab PO DAILY cinacalcet [Sensipar] 30 mg Tablet 30 mg PO QAM thiamine HCl (vitamin B1) 100 mg tablet 100 mg PO QAM cholecalciferol (vitamin D3) 125 mcg (5,000 unit) capsule 5,000 unit PO QPM Rx Instructions: after supper, if ok with dialysis famotidine 20 mg Tablet 20 mg PO DIRECTED Rx Instructions: TAKES DAILY ON WEDNESDAY, WEDNESDAY, & WEDNESDAY EVENING AFTER DIALYSIS. melatonin 5 mg Tablet 15 mg PO HS acetaminophen 325 mg Tablet 325 mg PO Q4H MDD 3 GRAMS APAP/24 HOURS PRN (Reason: PAIN/FEVER) lidocaine-prilocaine 2.5-2.5 % Cream 1 applic topical UD Rx Instructions: apply to fistula site 1 hour prior to dialysis, mon/wed/fri. ondansetron 4 mg Tablet,Disintegrating 4 mg PO Q6H PRN (Reason: Nausea And Vomiting) Lokelma 5 gram Powder In Packet 5 g PO DIRECTED Rx Instructions: every other day on NON-DIALYSIS days-//sat/sun. Auryxia 210 mg iron tablet 420 mg PO TIDM Rx Instructions: administer with a meal ketorolac 0.5 % drops 1 drp OPL QAM Rx Instructions: STARTED 09/23/23 FOR 4 WEEKS, ENDS 10/23/23. WAIT 5 MINUTES BETWEEN EYE DROPS. prednisolone acetate 1 % drops,suspension 1 drp OPL QID Rx Instructions: WAIT 5 MINUTES BETWEEN DROPS. STARTED 09/23/23 FOR 4 WKS, ENDS 10/23/23 white petrolatum [Vaseline] Gel 1 applic TOPICAL DAILY Rx Instructions: WASH AREA ON LEFT SIDE OF NOSE, PAT DRY, THEN APPLY THIN LAYER ON DRESSING AND APPLY TO AREA DAILY Refresh Classic (PF) 1.4-0.6 % Dropperette 1 drp OPB QID PRN (Reason: Dry Eyes) protein supplement Liquid 30 ea PO BIDM Rx Instructions: 30 ML BIDM Discontinued furosemide 40 mg tablet 40 mg PO QAM Discharge Orders: Discharge Order (Routine); Ordered 09/30/23 Ordered By: Melody Lund Admission Data Admit Date/Time: 09/26/23 20:44 Attending Provider: Trent Christianson Admit Provider: Solomon Espinosa Primary Care Provider: Maximo Taylor Other Providers: Solomon Espinosa; Radha Romo; Ana Nava; Ana Luisa Antunez Other Interventions: Discharge Summary Assessment (RN) Last Done: 09/30/23 11:43 Supervising Physician Co-Signing Physician Notes I personally examined the patient and verified all reyes points of history and exam, discussed case, and agree with decision making with Dr Lund No new issues or problems. still [place]. discussed eustacian tube dysfunction and taught OMT - more importantly d/w granddtr given pt's likely inability to recall conversation. vitals noted nad heent nc at mmm breathing unlabored no accessory muscles good effort skin no rashes no pallor or icterus neuro no focal deficits Hypoxiainitial differentials being acute diastolic CHF/pulmonary edema, COPD exacerbation, refractory pneumoniaat this point with nothing appearing septic refractory pneumonia appears to have been ruled out. suspect both acute on chronic diastolic CHF > COPD exacerbation with elements of both. fluid situation improved w extra fluid off at HD, COPD situation improved w steroids. safe for return to SNF. since very low concern for refractory pneumonia - stopped antibiotics. hearing loss - eustacian tube dysfunction - OMT, afrin, refer to ENT. does not appear to have capacity (nor has he appeared to for quite some time - having taken care of him many times over the last few years), family are decision makers. MoCA of 6 and palliative assessment support this as well. DNR status. otherwise as above Resident Activity Tracking Resident Involvement: Resident Care Provided Care Provided: Adult Hospital Medicine
--- NOTE | 2023-09-30 11:28 | Nephrology Progress Note ---
Date of Service September 30, 2023 Assessment & Plan (1) ESRD on dialysis: (2) Multifocal pneumonia: (3) Anemia: (4) Abdominal ascites: (5) Acute respiratory failure with hypoxia: Plan 72 year-old gentlemen with ESRD secondary to polycystic kidney disease, on HD MWF at [facility]. Admitted with acute respiratory failure and hypoxia secondary to multifocal pneumonia and bilateral pleural effusion. Labs are within acceptable limit. Chest x-ray showing multifocal pneumonia, pulmonary congestion and pleural effusion. Started empirically on Zosyn and linezolid. Had dialysis yesterday, volume status acceptable, electrolyte acceptable. BP fair. --Okay to be discharged from nephrology standpoint as clinically doing much better. --left arm nephrology precaution, continue on renal diet, dose medications for eGFR less than 10 --continue phosphate binder with meal, nephro caps and Sensipar --Continue on Wednesday, Wednesday, Wednesday dialysis. Admission and Anticipated Discharge Date Admission Date: September 26, 2023 Abraham Laird was seen and evaluated this morning. He has been feeling well, shortness of breath resolved, cough better. Denies any other symptoms. Electrolyte acceptable. Blood pressure fair. Antibiotics switched to Zithromax. Review of Systems Review of Systems: Detailed review of system was done and pertinent positives and negatives mentioned above. Physical Exam Constitutional: WD/WN, vitals as above no acute distress Eyes: + anicteric sclerae Respiratory: no respiratory distress Auscultation: + crackles; no wheezes Cardiovascular: Rate/Rhythm: regular rate and regular rhythm Heart Sounds: normal S1 and normal S2 Extremities: + AV fistula (Left BC AVF with thrill and bruit.); no edema Musculoskeletal: Extremities: extremities normal to inspection Skin: no rashes, warm and dry Results & Data Vital Signs (Past 12 Hours) Vital Signs Temp Pulse Resp BP Pulse Ox O2 Del Method O2 Del Method 09/30/23 11:07 36.9 C 89 19 135/78 97 Nasal Cannula 09/30/23 07:26 37.4 C 86 20 157/81 H 94 Nasal Cannula 09/30/23 07:03 85 18 89 L Nasal Cannula 09/30/23 03:00 36.9 C 83 21 142/74 H 96 Oxymask 09/30/23 01:46 86 16 94 Nasal Cannula 09/30/23 01:00 Nasal Cannula O2 Flow Rate O2 Flow Rate 09/30/23 11:07 4 09/30/23 07:26 4.0 09/30/23 07:03 3 09/30/23 03:00 09/30/23 01:46 3 09/30/23 01:00 3 PG Care Time/CCT Total # of Minutes Spent Total Time Spent with Patient: Total time spent is greater than 50% in coordination of care (as documented) at patient's floor/unit and/or counseling patient: Coding Level of Care Code 43549 SUB INP/OBS CARE 2/35MIN Diagnoses ESRD on dialysis N18.6; Z99.2 Multifocal pneumonia J18.9 Anemia N18.6; D63.1; Z99.2 Anemia type: due to chronic kidney disease Chronic kidney disease stage: on chronic dialysis Abdominal ascites R18.8 Ascites type: other type Acute respiratory failure with hypoxia J96.01 (3) Anemia Anemia type: due to chronic kidney disease Chronic kidney disease stage: on chronic dialysis Qualified Code(s): N18.6 - End stage renal disease; D63.1 - Anemia in chronic kidney disease; Z99.2 - Dependence on renal dialysis (4) Abdominal ascites Ascites type: other type Qualified Code(s): R18.8 - Other ascites
--- NOTE | 2023-09-30 12:52 | Billing Data ---
Date of Service September 30, 2023 Coding Level of Care Code 22008 IN/OBS DISCH 30 MIN/LESS
== END 2023-09-30 13:23 | DRG 291 ==
LOC: ED 17:36 → EDINP 20:44 → SUATTDRO 20:44 → 2E 09-27 01:38

== ENCOUNTER 2023-10-14 14:39 | Inpatient (IN) ==
--- NOTE | 2023-10-14 15:01 | Emergency Department Note ---
History of Present Illness General Chief complaint: Abdominal Pain Time Seen by Provider: 10/14/23 14:45 History of Present Illness 73-year-old male with a history of ascites presents emergency department with power of assistant city attorney who reportedly states that the patient was being prepared for paracentesis today due to abdominal distention he reportedly was vomiting over the past few days and has been with an alteration mental status according to family, they were at the radiology group and was having an ultrasound which they were preparing for a paracentesis and it was noticed that the patient may actually have a bowel obstruction. Patient is a very poor historian as to his presentation. Home Medications Medication Instructions Recorded Confirmed Type tiotropium 2.5 mcg-olodaterol 2.5 2 puff inhalation QAM #4 grams 02/18/21 10/14/23 Rx mcg/actuation mist for inhalation (Stiolto Respimat) polyethylene glycol 3350 17 17 g PO DAILY Constipation 06/30/21 10/14/23 History gram/dose oral powder (Miralax) docusate sodium 100 mg capsule 400 mg PO BID 07/31/21 10/14/23 History (Colace) cinacalcet 30 mg tablet (Sensipar) 30 mg PO QAM 03/27/22 10/14/23 History epinephrine 0.3 mg/0.3 mL 0.3 mg IM Q4H PRN Anaphylaxis 08/29/22 10/14/23 History injection, auto-injector (EpiPen) ipratropium 0.5 mg-albuterol 3 mg 3 ml inhalation Q4H PRN Shortness 08/29/22 10/14/23 History (2.5 mg base)/3 mL nebulization Of Breath Or Wheezing soln amiodarone 200 mg tablet 200 mg PO QPM 11/17/22 10/14/23 History divalproex 500 mg tablet,delayed 500 mg PO QAM 11/17/22 10/14/23 History release loratadine 10 mg tablet (Wal-itin) 10 mg PO Q2D #0 tabs 12/10/22 10/14/23 Rx cholecalciferol (vitamin D3) 125 5,000 unit PO QPM 01/05/23 10/14/23 History mcg (5,000 unit) capsule thiamine HCl (vitamin B1) 100 mg 100 mg PO QAM 01/05/23 10/14/23 History tablet guaifenesin 1,200 mg tablet, 1,200 mg PO BID PRN Congestion 02/18/23 10/14/23 History extended release 12 hr (Mucinex) tramadol 50 mg tablet 50 mg PO Q6H PRN Pain, Moderate 02/18/23 10/14/23 History trazodone 50 mg tablet 50 mg PO HS 02/18/23 10/14/23 History famotidine 20 mg tablet 20 mg PO DIRECTED 04/27/23 10/14/23 History melatonin 5 mg tablet 15 mg PO HS 04/27/23 10/14/23 History vitamin B complex-vitamin C-folic 1 tab PO DAILY 06/18/23 10/14/23 History acid 0.8 mg tablet ([place]-Ancelmo) acetaminophen 325 mg tablet 325 mg PO Q4H PRN PAIN/FEVER 08/31/23 10/14/23 History ferric citrate 210 mg iron tablet 420 mg PO TIDM 08/31/23 10/14/23 History (Auryxia) lidocaine-prilocaine 2.5 %-2.5 % 1 applic topical UD 08/31/23 10/14/23 History topical cream ondansetron 4 mg disintegrating 4 mg PO Q6H PRN Nausea And Vomiting 08/31/23 10/14/23 History tablet sodium zirconium cyclosilicate 5 5 g PO DIRECTED 08/31/23 10/14/23 History gram oral powder packet (Lokelma) ketorolac 0.5 % eye drops 1 drp OPL QAM 09/26/23 10/14/23 History polyvinyl alcohol-povidone (PF) 1 drp OPB QID PRN Dry Eyes 09/26/23 10/14/23 History 1.4 %-0.6 % eye drops in a dropperette (Refresh Classic (PF)) prednisolone acetate 1 % eye 1 drp OPL QID 09/26/23 10/14/23 History drops,suspension protein supplement 30 ea PO BIDM 09/26/23 10/14/23 History white petrolatum (Vaseline jelly, 1 applic topical DAILY 09/26/23 10/14/23 History topical) fluticasone propionate 50 1 spray intranasal BID 7 days #16 09/30/23 10/14/23 Rx mcg/actuation nasal grams spray,suspension furosemide 40 mg tablet 40 mg PO BID 30 days #60 tabs 09/30/23 10/14/23 Rx Allergies Allergy/AdvReac Type Severity Reaction Status Date / Time lisinopril AdvReac Intermediate COUGH Verified 10/07/23 09:17 Past Med/Surg History Medical History Physician orders for life-sustaining treatment (POLST) form indicates patient wish for [id number] status Acute on chronic hypoxic respiratory failure Sepsis Multifocal pneumonia Acute hypoxemic respiratory failure Generalized weakness Abdominal ascites Acute respiratory failure with hypoxia Palliative care by specialist Discussion about advance care planning held with family member Cognitive impairment Dementia with behavioral disturbance Dyspnea and respiratory abnormalities Alzheimer disease progressive decline September 2023 with worsening cognitive function. MoCA testing done patient scored 630/test is scanned in EMR. HE IS NOT DECISIONALLY COMPETENT. HIS MEDICAL POA IS DAUGHTER DARION HEDZ AND HIS LEGAL/FINANCIAL POA IS GRAND DAUGHTER KIMMIE LUNA WHO WORKS HERE AT [facility]. PAF (paroxysmal atrial fibrillation) COPD (chronic obstructive pulmonary disease) FORMER HEAVY SMOKER, OXYGEN DEPENDENT Encounter for pre-operative examination Polycystic kidney disease, adult type (09/03/12) History of home oxygen therapy 2L oxygen prn sat <90% per med record Limb alert care status LUE AV fistula LUE Hx MRSA infection ~02/2023, nares>per med record Hx of chest pain per med record from [facility] Alcoholic cirrhosis of liver with ascites Abnormal levels of other serum enzymes Gastrointestinal hemorrhage, unspecified End stage renal disease Unspecified intestinal obstruction, unspecified as to partial versus complete obstruction Chronic respiratory failure with hypoxia Insomnia Unspecified abnormalities of gait and mobility Low back pain, unspecified Unspecified fall, initial encounter Pain in unspecified wrist Fluid overload Acute respiratory failure with hypoxia Metabolic encephalopathy Epilepsy, unspecified, intractable, without status epilepticus Fall Bladder mass Cirrhosis of liver Ascites Confusion Ruptured middle cerebral artery aneurysm Seizure disorder Myoclonic jerking Bradycardia History of marijuana use daily Hx of atrial flutter 06/2021, hospitalized w/pneumonia for almost 3 weeks; dx atrial flutter- currently amiodarone; f/u dr. [place], [place] Paroxysmal atrial flutter Vitamin D deficiency Hypercalcemia Diverticulosis Gout hx Tremor of both hands Hypertension On home oxygen therapy 2L N/C at hs Low back pain Hemorrhoids "not currently flared" Benign neoplasm of skin of nose removed once HTN (hypertension) Anemia Intracranial hemorrhage 2012 Secondary hyperparathyroidism (of renal origin) Benign prostate hyperplasia Surgical History Hx of right cataract extraction S/P dialysis catheter insertion 09/2022, [facility] History of esophagogastroduodenoscopy (EGD) Hx of cardiac cath 07/2022, [facility], no stents History of abdominal paracentesis multiple, most recent 08/26/23 Status post creation of arteriovenous fistula LUE History of colonoscopy History of tooth extraction all teeth History of cerebral aneurysm repair 2012 [facility] Presby--clip in place; clip IS MRI COMPATIBLE Family History Mother , age 65 of cancer Cancer Father , age 60 from a tree falling on him No problems noted. Other No family history of adverse response to anesthesia Denies family history of Myocardial infarction Social History Smoking Status: Former smoker Tobacco Type: Cigarettes Age Started Using Tobacco: 16; Age Quit Using Tobacco: 71; packs per day: 1; Cigarettes Per Day: 1 pack; Second Hand Exposure: No; Do You Dip or Chew Tobacco: No; Hx Alcohol Use: Yes Alcohol type: beer Alcohol Intake Frequency Comment: None x2 years Hx Substance Use: Yes Last Used Substance: Unknown Last Used Substance Other:: 8 months or more Substance Use Type Other:: marijuana Preferred Language: Latvian Communication Ability: Effective Communication Ability Comment: "able to sign own consents" 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 Beliefs That Will Affect Care: None marital status: Single Current Living Situation: Residential Current Living Situation Comment: [facility] How many Children do You have: 1 Feels Safe at Home: Yes Assistive Devices: Oxygen - Continuous and Walker Review of Systems A total of 10 systems reviewed and were otherwise negative Gastrointestinal: + abdominal pain, + nausea and + vomiting Physical Exam Vital Signs Vital Signs - 24 hr 10/14/23 14:41 10/14/23 14:59 10/14/23 15:00 Temperature 36.9 C Temperature Source Oral Pulse Rate 106 H 106 H 108 H Pulse Rate from SpO2 Sensor 109 H Respiratory Rate 20 24 Respiratory Effort / Characteristics Non-Labored Respiratory Depth Normal Blood Pressure 160/78 H Blood Pressure Mean 105 Pulse Oximetry 93 94 Oxygen Delivery Method Nasal Cannula Nasal Cannula Oxygen Flow Rate 4 4 Sepsis Recent Fever Within 48 Hours No Sepsis New/Unexplained Change in Mental Status N/A Sepsis Action Taken by Nursing No Action Required 10/14/23 15:15 10/14/23 15:15 10/14/23 15:22 Temperature Temperature Source Pulse Rate 106 H 109 H Pulse Rate from SpO2 Sensor 106 H Respiratory Rate 19 Respiratory Effort / Characteristics Respiratory Depth Blood Pressure 157/80 H Blood Pressure Mean 111 Pulse Oximetry 95 Oxygen Delivery Method Oxygen Flow Rate Sepsis Recent Fever Within 48 Hours Sepsis New/Unexplained Change in Mental Status Sepsis Action Taken by Nursing 10/14/23 15:30 10/14/23 15:30 Temperature Temperature Source Pulse Rate 106 H Pulse Rate from SpO2 Sensor Respiratory Rate 22 Respiratory Effort / Characteristics Respiratory Depth Blood Pressure 153/85 H Blood Pressure Mean 109 Pulse Oximetry Oxygen Delivery Method Oxygen Flow Rate Sepsis Recent Fever Within 48 Hours Sepsis New/Unexplained Change in Mental Status Sepsis Action Taken by Nursing GENERAL: Patient is awake alert in no acute distress patient is resting comfortably and showing no signs of anxiety EYES: The conjunctivae are clear. The pupils are round and reactive. EARS, NOSE, MOUTH AND THROAT: The nose is without any evidence of any deformity. Mucous membranes are moist. Tongue is midline. NECK: The neck is nontender and supple. RESPIRATORY: Normal respiratory effort is noted there is no evidence of wheezing rhonchi or rales CARDIOVASCULAR: Regular rate and rhythm noted there no murmurs rubs or gallops normal S1 normal S2. GASTROINTESTINAL: The abdomen is distended, multiple sx scars; decreased bowel sounds; tympany present BACK: No midline tenderness or or step-off noted range of motion in flexion extension as well as rotation no signs of muscle spasm noted MUSCULOSKELETAL/EXTREMITIES: There is no evidence of gross deformity full range of motion is noted in the hips and shoulders. SKIN: There is no obvious evidence of any rash. There are no petechiae, pallor or cyanosis noted. Rhinophyma is present NEUROLOGIC: Patient is awake alert and oriented x3 strength is symmetric patellar reflexes are 2+ bilaterally Course Reevaluation(s) Reevaluation #1: Patient had a large dark stool per the nursing staff I reevaluated the patient the patient had a Hemoccult that was positive. Patient was also started on a 250 mL bolus of saline as the patient has end-stage renal disease. Patient was hemodynamically stable. Patient was also started on empiric Zosyn Time: 17:58 Consultations Consultation #1: Case was discussed with the [facility] hospitalist for admission Time: 17:58 Administered Medications Piperacillin Sod/Tazobactam Sod (Zosyn) 4.5 gm in 100 mls @ 200 mls/hr IV NOW ONE Stop: 10/14/23 17:52 Last Admin: 10/14/23 17:47 Dose: 200 mls/hr Documented By: DILLON Discontinued Medications Sodium Chloride (Nss) 1,000 mls @ 999 mls/hr IV .Q1H1M ONE Stop: 10/14/23 17:08 Last Admin: 10/14/23 16:34 Dose: Not Given Documented By: DILLON Sodium Chloride (Nss) 250 mls @ 999 mls/hr IV .Q16M ONE Stop: 10/14/23 16:33 Last Infusion: 10/14/23 17:54 Dose: Infused Documented By: Admin: 10/14/23 16:33 Dose: 999 mls/hr Documented By: DILLON Medical Decision Making Medical Records Attestation: I reviewed the patient's medical records. Home Medications Current Medication List: was personally reviewed by Laboratory Data Attestation: I reviewed the patient's lab results. Labs interpreted by me patient has an elevated creatinine 10/14/23 15:36 10/14/23 15:36 Lab Results 10/14/23 10/14/23 Range/Units 15:36 16:48 WBC 7.19 (4.8-10.8) K/ul RBC 4.52 L (4.70-6.10) M/uL Hgb 12.9 L (14.0-18.0) g/dl Hct 42.7 (42.0-52.0) % MCV 94.5 (80.0-100.0) fL MCH 28.5 (25.0-34.0) pg MCHC 30.2 L (32.0-36.0) g/dL RDW Std Deviation 68.0 H (36.4-46.3) fL RDW Coeff of Goivana 19.8 H (11.5-14.5) % Plt Count 155 (130-400) K/uL MPV 10.0 (9.4-12.4) fL Immature Gran % (Auto) 0.4 % Neut % (Auto) 92.6 % Lymph % (Auto) 3.9 % [place] % (Auto) 2.1 % Eos % (Auto) 0.6 % Baso % (Auto) 0.4 % Neut # (Auto) 6.66 H (1.40-6.50) K/uL Lymph # (Auto) 0.28 L (1.20-3.40) K/uL [place] # (Auto) 0.15 (0.11-0.59) K/uL Eos # (Auto) 0.04 (0.00-0.50) K/uL Baso # (Auto) 0.03 (0.00-0.20) K/uL Immature Gran # (Auto) 0.03 (0.01-0.20) K/uL Poikilocytosis Present PT Cancelled INR Cancelled APTT Cancelled PTT Ratio Cancelled Sodium 139 (136-145) mmol/L Potassium 5.0 (3.5-5.1) mmol/L Chloride 97 L (98-107) mmol/L Carbon Dioxide 31 (21-32) mmol/L Anion Gap 11 (3-11) BUN 64 H (6-23) mg/dl Creatinine 6.33 H* (0.6-1.4) mg/dl Est Cr Clr Drug Dosing Not Reportable Est GFR ( Amer) 9.3 ml/min Est GFR (Non-Af Amer) 8.0 ml/min BUN/Creatinine Ratio 10.1 (10-20) Glucose 100 H (70-99(Fasting)) mg/dl Lactate 2.2 H* (0.4-2.0) mmol/L Calcium 9.4 (8.6-10.3) mg/dl Magnesium 2.1 (1.7-2.4) mg/dl Total Bilirubin 0.6 (0.2-1.0) mg/dl Direct Bilirubin TNP AST 19 (13-39) U/L ALT 9 (7-52) U/L Alkaline Phosphatase 65 (34-104) U/L Ammonia Cancelled 55.0 Total Protein 6.1 (6.0-8.3) gm/dl Albumin 3.6 (3.4-5.0) gm/dl Procalcitonin Cancelled Imaging Data Attestation: I personally reviewed and interpreted this imaging study as follows: My Impression: Chest x-ray interpreted by me bilateral pulmonary infiltrates Radiologist's Impression: Abdomen/Pelvis CT 10/14/23 14:[address] WITHOUT CONTRAST CT DOSE: 1350.27 mGy.cm HISTORY: Abnormal ultrasound. abdominal distention TECHNIQUE: Multiaxial CT images of the abdomen and pelvis were performed without contrast. A dose lowering technique was utilized adhering to the principles of ALARA. COMPARISON STUDY: Abdomen and pelvis CT 04/27/2023. FINDINGS: There are small bilateral pleural effusions which have increased in size. The heart remains enlarged. Mild interlobular septal thickening within the lung bases suggestive of mild pulmonary edema. There are patchy bibasilar densities which may represent atelectasis. A pneumonia would be difficult to exclude by imaging. No pneumoperitoneum. No pneumatosis. There are healing right posterior ninth through 11th rib fractures. No acute fractures identified. Fluid-filled mildly distended esophagus. The stomach is also fluid-filled and moderately distended. Multiple mildly dilated gas and fluid-filled loops of small bowel seen throughout the abdomen. No transition point identified. This is similar to the prior study and favors an ileus. A low-grade partial small bowel obstruction is not excluded. A few jejunal loops within the left side the abdomen may be slightly thickened. Therefore, this raises the possibility of a mild enteritis. Oiig-xw-[id number] fecal retention. Normal appendix. Trace ascites. This has improved. The unenhanced liver, spleen, adrenal glands, and pancreas are unremarkable. Calcified plaque within the normal caliber abdominal aorta. Mild body wall edema. No retroperitoneal or pelvic lymphadenopathy. No hydronephrosis. Multiple simple complex cysts again noted within the kidneys. The majority of the cysts demonstrate peripheral calcifications. This remains unchanged. Mild bladder wall thickening. This may be due to the enlarged prostate gland. Questionable omental nodularity is likely due to the patient's known ascites. IMPRESSION: 1. Distended and fluid-filled loops of small bowel, stomach, and distal esophagus. No definite transition point. Therefore, this favors an ileus. A partial small bowel obstruction is not excluded but considered less likely. This is similar to the prior CT examination. 2. Trace ascites which has improved. 3. Cardiomegaly with small bilateral pleural effusions and mild interstitial pulmonary edema. 4. Bibasilar densities favor atelectasis. A superimposed pneumonia would be difficult to exclude. 5. Questionable omental nodularity is likely due to the patient's known ascites. 6. Additional findings as described above ACT 112: Negative or not required by law. Electronically signed by: Jef Avery M.D. 10/14/2023 4:46 PM Chest X-Ray 10/14/23 14:52 XR chest 1V portable CLINICAL HISTORY: Sepsis COMPARISON STUDY: Chest radiograph September 26, 2023. FINDINGS: Vascular stent within the left axilla is incidentally noted. Cardiomegaly is unchanged. Interstitial thickening and bilateral opacities have improved since chest radiograph of September 26, 2023. There is underlying emphysema. No new sites of consolidation are present. There is no pneumothorax. Trace right pleural effusion is unchanged. Trace left pleural effusion has improved. IMPRESSION: 1. Persistent multifocal airspace opacities, slightly improved since prior exam. The findings favor multifocal pneumonia. Continued imaging follow up to ensure complete resolution is recommended. 2. Trace bilateral pleural effusions. ACT 112: Negative or not required by law. Electronically signed by: Yunior Arroyo M.D. 10/14/2023 3:26 PM ECG Data Attestation: I personally reviewed and interpreted this ECG as follows: Additional Comments: EKG interpreted by me sinus tachycardia rate of 106, nonspecific ST-T change, normal axis normal intervals, no obvious ST segment elevation or depression MDM Narrative Medical decision making differential diagnosis includes liver disease, cirrhosis, bowel obstruction, electrolyte abnormality, metabolic derangement, sepsis Plan is to check sepsis labs, ammonia level, CT abdomen pelvis Patient was evaluated for upper GI bleed change in mental status, bowel obstruction, end-stage renal disease, possible sepsis. Patient was empirically started on IV antibiotics Case was discussed with the [facility] hospitalist for admission at 1800 Impression & Plan Ileus, AMS (altered mental status), UGIB (upper gastrointestinal bleed), ESRD (end stage renal disease) Discharge Plan Visit Data Chief Complaint: Abdominal Pain ED Provider: José Cottrell Discharge Problem: Ileus, AMS (altered mental status), UGIB (upper gastrointestinal bleed), ESRD (end stage renal disease) Patient Disposition: Admitted As Inpatient Forms Stand Alone Forms: My [facility] Prescriptions Prescriptions: No Action Stiolto Respimat 2.5-2.5 mcg/actuation mist 2 puff INH QAM Qty: 4 5RF docusate sodium [Colace] 100 mg capsule 400 mg PO BID polyethylene glycol 3350 [Miralax] 17 gram/dose Powder 17 g PO DAILY ipratropium-albuterol 0.5 mg-3 mg(2.5 mg base)/3 mL solution for nebulization 3 ml INHALATION Q4H PRN (Reason: Shortness Of Breath Or Wheezing) Rx Instructions: ALSO LOW 02 SATS epinephrine [EpiPen] 0.3 mg/0.3 mL Auto-Injector 0.3 mg IM Q4H PRN (Reason: Anaphylaxis) divalproex 500 mg tablet,delayed release (DR/EC) 500 mg PO QAM amiodarone 200 mg Tablet 200 mg PO QPM loratadine [Wal-itin] 10 mg Tablet 10 mg PO Q2D Qty: 0 0RF trazodone 50 mg Tablet 50 mg PO HS tramadol 50 mg Tablet 50 mg PO Q6H PRN (Reason: Pain, Moderate) guaifenesin [Mucinex] 1,200 mg Tablet Extended Release 12hr 1,200 mg PO BID PRN (Reason: Congestion) Trinidad-Ancelmo 0.8 mg Tablet 1 tab PO DAILY cinacalcet [Sensipar] 30 mg Tablet 30 mg PO QAM thiamine HCl (vitamin B1) 100 mg tablet 100 mg PO QAM cholecalciferol (vitamin D3) 125 mcg (5,000 unit) capsule 5,000 unit PO QPM Rx Instructions: after supper, if ok with dialysis famotidine 20 mg Tablet 20 mg PO DIRECTED Rx Instructions: TAKES DAILY ON WEDNESDAY, WEDNESDAY, & WEDNESDAY EVENING AFTER DIALYSIS. melatonin 5 mg Tablet 15 mg PO HS acetaminophen 325 mg Tablet 325 mg PO Q4H MDD 3 GRAMS APAP/24 HOURS PRN (Reason: PAIN/FEVER) lidocaine-prilocaine 2.5-2.5 % Cream 1 applic topical UD Rx Instructions: apply to fistula site 1 hour prior to dialysis, wed/wed/wed. ondansetron 4 mg Tablet,Disintegrating 4 mg PO Q6H PRN (Reason: Nausea And Vomiting) Lokelma 5 gram Powder In Packet 5 g PO DIRECTED Rx Instructions: every other day on NON-DIALYSIS days-//sat/sun. Auryxia 210 mg iron tablet 420 mg PO TIDM Rx Instructions: administer with a meal ketorolac 0.5 % drops 1 drp OPL QAM Rx Instructions: STARTED 09/23/23 FOR 4 WEEKS, ENDS 10/23/23. WAIT 5 MINUTES BETWEEN EYE DROPS. prednisolone acetate 1 % drops,suspension 1 drp OPL QID Rx Instructions: WAIT 5 MINUTES BETWEEN DROPS. STARTED 09/23/23 FOR 4 WKS, ENDS 10/23/23 white petrolatum [Vaseline] Gel 1 applic TOPICAL DAILY Rx Instructions: WASH AREA ON LEFT SIDE OF NOSE, PAT DRY, THEN APPLY THIN LAYER ON DRESSING AND APPLY TO AREA DAILY Refresh Classic (PF) 1.4-0.6 % Dropperette 1 drp OPB QID PRN (Reason: Dry Eyes) protein supplement Liquid 30 ea PO BIDM Rx Instructions: 30 ML BIDM furosemide 40 mg tablet 40 mg PO BID 30 Days Qty: 60 1RF fluticasone propionate 50 mcg/actuation spray,suspension 1 spray intranasal BID 7 Days Qty: 16 1RF Rx Instructions: administer into each nostril Referrals Referrals: Maximo Taylor MD [Primary Care Provider] -
--- NOTE | 2023-10-14 15:29 | XRay Report ---
XR chest 1V portable CLINICAL HISTORY: Sepsis COMPARISON STUDY: Chest radiograph September 26, 2023. FINDINGS: Vascular stent within the left axilla is incidentally noted. Cardiomegaly is unchanged. Int erstitial thickening and bilateral opacities have improved since chest radiograph of September 26, 2023. T here is underlying emphysema. No new sites of consolidation are present. There is no pneumothorax. Tr shaw right pleural effusion is unchanged. Trace left pleural effusion has improved. IMPRESSION: 1. Persistent multifocal airspace opacities, slightly improved since prior exam. The findings favor m ultifocal pneumonia. Continued imaging follow up to ensure complete resolution is recommended. 2. Trace bilateral pleural effusions. ACT 112: Negative or not required by law. Electronically signed by: Yunior Arroyo M.D. 10/14/2023 3:26 PM
[2023-10-14 15:56] LABS: Hematocrit (blood only) 42.7 % (42.0-52.0); Hemoglobin 12.9 g/dl (14.0-18.0); Mean Corpuscular Hemoglobin 28.5 pg (25.0-34.0); Mean Corpuscular Hgb Conc 30.2 g/dL (32.0-36.0); Mean Corpuscular Volume 94.5 fL (80.0-100.0); Platelet Count 155 K/uL (130-400); RDW Coefficient of Variation 19.8 % (11.5-14.5); Red Blood Count 4.52 M/uL (4.70-6.10); White Blood Count 7.19 K/ul (4.8-10.8)
--- NOTE | 2023-10-14 16:05 | Electrocardiogram Report ---
Test Reason : Blood Pressure : / mmHG Vent. Rate : 106 BPM Atrial Rate : 106 BPM P-R Int : 178 ms QRS Dur : 120 ms QT Int : 354 ms P-R-T Axes : 000 071 071 degrees QTc Int : 470 ms Sinus tachycardia Left ventricular hypertrophy with repolarization abnormality with QRS widening Borderline ECG When compared with ECG of 26-SEP-2023 17:42, Nonspecific T wave abnormality no longer evident in Inferior leads T wave inversion no longer evident in Lateral leads QT has shortened Confirmed by Michael Maddox ([id number]) on 10/14/2023 4:05:11 PM Referred By: Confirmed By:Michael Maddox
[2023-10-14 16:16] LABS: Basophils # (auto) 0.03 K/uL (0.00-0.20); Basophils % (auto) 0.4 %; Eosinophils # (auto) 0.04 K/uL (0.00-0.50); Eosinophils % (auto) 0.6 %; Immature Granulocytes # (auto) 0.03 K/uL (0.01-0.20); Immature Granulocytes % (auto) 0.4 %; Lymphocytes # (auto) 0.28 K/uL (1.20-3.40); Lymphocytes % (auto) 3.9 %; Monocytes # (auto) 0.15 K/uL (0.11-0.59); Monocytes % (auto) 2.1 %; Neutrophils # (auto) 6.66 K/uL (1.40-6.50); Neutrophils % (auto) 92.6 %; Poikilocytosis Present
[2023-10-14] MEDS: SODIUM CHLORIDE 0.9% 250 ML IV ONE (16:33)
[2023-10-14] MEDS: SODIUM CHLORIDE 0.9% 1,000 ML IV ONE (16:34)
--- NOTE | 2023-10-14 16:48 | CT Scan Report ---
ABDOMEN AND PELVIS CT WITHOUT CONTRAST CT DOSE: 1350.27 mGy.cm HISTORY: Abnormal ultrasound. abdominal distention TECHNIQUE: Multiaxial CT images of the abdomen and pelvis were performed without contrast. A dose lo wering technique was utilized adhering to the principles of ALARA. COMPARISON STUDY: Abdomen and pelvis CT 04/27/2023. FINDINGS: There are small bilateral pleural effusions which have increased in size. The heart remains enlarged. Mild interlobular septal thickening within the lung bases suggestive of mild pulmonary fernanda ma. There are patchy bibasilar densities which may represent atelectasis. A pneumonia would be diffic ult to exclude by imaging. No pneumoperitoneum. No pneumatosis. There are healing right posterior perla th through 11th rib fractures. No acute fractures identified. Fluid-filled mildly distended esophagus . The stomach is also fluid-filled and moderately distended. Multiple mildly dilated gas and fluid-fi lled loops of small bowel seen throughout the abdomen. No transition point identified. This is simila r to the prior study and favors an ileus. A low-grade partial small bowel obstruction is not excluded . A few jejunal loops within the left side the abdomen may be slightly thickened. Therefore, this rosas ses the possibility of a mild enteritis. [id number] fecal retention. Normal appendix. Trace asc ites. This has improved. The unenhanced liver, spleen, adrenal glands, and pancreas are unremarkable. Calcified plaque within the normal caliber abdominal aorta. Mild body wall edema. No retroperitoneal or pelvic lymphadenopathy. No hydronephrosis. Multiple simple complex cysts again noted within the k idneys. The majority of the cysts demonstrate peripheral calcifications. This remains unchanged. Mild bladder wall thickening. This may be due to the enlarged prostate gland. Questionable omental nodula rity is likely due to the patient's known ascites. IMPRESSION: 1. Distended and fluid-filled loops of small bowel, stomach, and distal esophagus. No definite transi tion point. Therefore, this favors an ileus. A partial small bowel obstruction is not excluded but co nsidered less likely. This is similar to the prior CT examination. 2. Trace ascites which has improved. 3. Cardiomegaly with small bilateral pleural effusions and mild interstitial pulmonary edema. 4. Bibasilar densities favor atelectasis. A superimposed pneumonia would be difficult to exclude. 5. Questionable omental nodularity is likely due to the patient's known ascites. 6. Additional findings as described above ACT 112: Negative or not required by law. Electronically signed by: Jef Avery M.D. 10/14/2023 4:46 PM
[2023-10-14 17:36] LABS: Alanine Aminotransferase 9 U/L (7-52); Albumin Level 3.6 gm/dl (3.4-5.0); Alkaline Phosphatase 65 U/L (34-104); Anion Gap 11 (3-11); Aspartate Aminotransferase 19 U/L (13-39); BUN Creatinine Ratio 10.1 (10-20); Bilirubin,Total 0.6 mg/dl (0.2-1.0); Blood Urea Nitrogen 64 mg/dl (6-23); Calcium 9.4 mg/dl (8.6-10.3); Carbon Dioxide 31 mmol/L (21-32); Chloride 97 mmol/L (98-107); Est GFR (African American) 9.3 ml/min; Glucose 100 mg/dl (70-99(Fasting)); Magnesium 2.1 mg/dl (1.7-2.4); Sodium 139 mmol/L (136-145); Total Protein 6.1 gm/dl (6.0-8.3)
[2023-10-14] MEDS: PIPERACILLIN/TAZOBACTAM 4.5 GM/100 ML BAG IV ONE (17:47)
--- NOTE | 2023-10-14 18:14 | History & Physical Report ---
Date of Service October 14, 2023 Assessment & Plan (1) Multifocal pneumonia: Plan: Multifocal pneumonia, possible aspiration Patient with recurrent SBO, episode of vomiting with bacterial found in his.? Aspiration Febrile, elevated procalcitonin, CXR? Multifocal opacities consistent with pneumonia Continue Zosyn/doxycycline. MRSA nares pending. Bio fire pending. Sputum culture pending Blood cultures ordered Patient is with ESRD and currently has BP in the 110s, mild congestive findings on x-ray. No emergent dialysis is indicated, patient received 1250 cc of saline while in the ER will defer IBW 2427 sepsis calculations due to ESRD with mild pulmonary congestion on reevaluation. If patient were to decompensate and need fluids may require vasopressor support for dialysis, pressors or not indicated will treat antibiotics and admit to PCU. Lactate 2.2, normalized with 1250 cc while in the ER. (2) Small bowel obstruction: Plan: Without discrete transition point Surgery consulted NGT to LIS Strict n.p.o. Zofran, hydromorphone as needed for pain/nausea (3) ESRD (end stage renal disease): Plan: Potassium 5.0, some pulmonary congestion but normal O2 levels on 2-4 L nasal cannula. No indication for emergent dialysis at time of admission. Nephrology consulted (4) Melena: Plan: Large dark bowel movement which was weakly Hemoccult positive. Pt is on Auryxia. Hemoglobin 12.9 on admission, last 13.1. Trended every 6 hours Has had some epigastric discomfort and is at increased risk for ulcers and with SBO PPI 80 mg bolus followed by twice daily push ordered Due to his comorbidities multiple complications and concurrent pneumonia patient is not a good candidate for endoscopy at this time and would be a very high sedative risk, recommend medical management at time of admission No indication for transfusion, consent signed and placed in chart (5) Hx of atrial flutter: Plan: Amiodarone held while NPO. If prolonged n.p.o. can switch this to IV. On admission patient is with sinus tachycardia. He is not on stroke prophylaxis, this currently contraindicated in the setting of GI bleed (6) Alzheimer disease: Plan: Patient is not competent for medical decision-making. Please contact patient's daughter Jenny at [phone] for any updates, changes in status, or medical decision making Plan DVT prophylaxis: SCDs, pharmacal prophylaxis contraindicated Diet: N.p.o. Disposition: PCU CODE STATUS will assess conditional code. No intubation or chest compressions and complete cardiopulmonary arrest; is okay with ICU transfer/shock/meds History of Present Illness Primary Care Provider: Maximo Taylor MD Sisi is seein with family present. Granddaughter reports around 2pm went for a paracentesis for ascities suspected due to known ETOH cirrhosis. 'Was his normal self at noon, nothing abnormal'. At time of paracentesis no ascites was seen, but a potential mass was noted with ?obstruction and was referred to the ER Since noon rapidly becoming more confused/sedated. Looks similar to when he has had pneumonia in the past. Normally alert and talkative, currently difficult to arouse and falls back asleep immediately after awakening to vigorous physical stimulation. Generally wont tell nurses/help desk support specialist about symptoms so unclear if he has been sick in the last few days. Did have some black emesis on his stark noted by family today. BM today was black/sticky, weakly hemoccult positive. Hx ETOH cirrhosis diagnosed 9 months ago. Etoh is in remission for 5-6 years ago. Quit etoh when he was on the transplant list, but is no longer on the list. Nohistory of xplant/partial xplant as he was never healthy/stable enough to actually progress. notes he is a [place] [employer], and smoked marijuana his whole life but suddenly stopped this going into [facility]. Health issues seemed to explode after stopping this and 'got 10 times worse'. Recreational marijuana, no medical card. Has had difficulty PTSD/flashbacks int he past and felt this was much better/well controlled with marijuana butnever pursued a medical card. No recent recreational drug use. Has had ~14 taps total. Started as PD dialysis 6 years ago. Last year December/January PD was stopped, switched to regular dialysis. LEFT AC fisulta. Preior yanez was removed. Due for dialysis tomorrow (MWF with [facility]) and follows with [facility]. +Fevers, chills, sweats. +Productive for a few days. Last colonoscopy less than 1 year ago with a polyp removal, no abnormalities other than polyp removal but suboptimal visualization[place] [facility] [place] Medical History: Reviewed Medications: Reviewed Surgical History: Reviewed Family history: Reviewed Allergies: Reviewed Social History: REviewed. No ETOH in 5-6 years. Former [facility] marijuana --> had benefit to this with PTSD but no card so was stopped after being admitted to facility Code Status: DNR, DNR but OK with ICU/vasopressors/shock. WIll list as conditional code Allergies Allergy/AdvReac Type Severity Reaction Status Date / Time lisinopril AdvReac Intermediate COUGH Verified 10/07/23 09:17 Home Medications Medication Instructions Recorded Confirmed Type tiotropium 2.5 mcg-olodaterol 2.5 2 puff inhalation QAM #4 grams 02/18/21 10/14/23 Rx mcg/actuation mist for inhalation (Stiolto Respimat) polyethylene glycol 3350 17 17 g PO DAILY Constipation 06/30/21 10/14/23 History gram/dose oral powder (Miralax) docusate sodium 100 mg capsule 400 mg PO BID 07/31/21 10/14/23 History (Colace) cinacalcet 30 mg tablet (Sensipar) 30 mg PO QAM 03/27/22 10/14/23 History epinephrine 0.3 mg/0.3 mL 0.3 mg IM Q4H PRN Anaphylaxis 08/29/22 10/14/23 History injection, auto-injector (EpiPen) ipratropium 0.5 mg-albuterol 3 mg 3 ml inhalation Q4H PRN Shortness 08/29/22 10/14/23 History (2.5 mg base)/3 mL nebulization Of Breath Or Wheezing soln amiodarone 200 mg tablet 200 mg PO QPM 11/17/22 10/14/23 History divalproex 500 mg tablet,delayed 500 mg PO QAM 11/17/22 10/14/23 History release loratadine 10 mg tablet (Wal-itin) 10 mg PO Q2D #0 tabs 12/10/22 10/14/23 Rx cholecalciferol (vitamin D3) 125 5,000 unit PO QPM 01/05/23 10/14/23 History mcg (5,000 unit) capsule thiamine HCl (vitamin B1) 100 mg 100 mg PO QAM 01/05/23 10/14/23 History tablet guaifenesin 1,200 mg tablet, 1,200 mg PO BID PRN Congestion 02/18/23 10/14/23 History extended release 12 hr (Mucinex) tramadol 50 mg tablet 50 mg PO Q6H PRN Pain, Moderate 02/18/23 10/14/23 History trazodone 50 mg tablet 50 mg PO HS 02/18/23 10/14/23 History famotidine 20 mg tablet 20 mg PO DIRECTED 04/27/23 10/14/23 History melatonin 5 mg tablet 15 mg PO HS 04/27/23 10/14/23 History vitamin B complex-vitamin C-folic 1 tab PO DAILY 06/18/23 10/14/23 History acid 0.8 mg tablet ([place]-Ancelmo) acetaminophen 325 mg tablet 325 mg PO Q4H PRN PAIN/FEVER 08/31/23 10/14/23 History ferric citrate 210 mg iron tablet 420 mg PO TIDM 08/31/23 10/14/23 History (Auryxia) lidocaine-prilocaine 2.5 %-2.5 % 1 applic topical UD 08/31/23 10/14/23 History topical cream ondansetron 4 mg disintegrating 4 mg PO Q6H PRN Nausea And Vomiting 08/31/23 10/14/23 History tablet sodium zirconium cyclosilicate 5 5 g PO DIRECTED 08/31/23 10/14/23 History gram oral powder packet (Lokelma) ketorolac 0.5 % eye drops 1 drp OPL QAM 09/26/23 10/14/23 History polyvinyl alcohol-povidone (PF) 1 drp OPB QID PRN Dry Eyes 09/26/23 10/14/23 History 1.4 %-0.6 % eye drops in a dropperette (Refresh Classic (PF)) prednisolone acetate 1 % eye 1 drp OPL QID 09/26/23 10/14/23 History drops,suspension protein supplement 30 ea PO BIDM 09/26/23 10/14/23 History white petrolatum (Vaseline jelly, 1 applic topical DAILY 09/26/23 10/14/23 History topical) fluticasone propionate 50 1 spray intranasal BID 7 days #16 09/30/23 10/14/23 Rx mcg/actuation nasal grams spray,suspension furosemide 40 mg tablet 40 mg PO BID 30 days #60 tabs 09/30/23 10/14/23 Rx Past Med/Surg History Medical History Physician orders for life-sustaining treatment (POLST) form indicates patient wish for [id number] status Acute on chronic hypoxic respiratory failure Sepsis Multifocal pneumonia Acute hypoxemic respiratory failure Generalized weakness Abdominal ascites Acute respiratory failure with hypoxia Palliative care by specialist Discussion about advance care planning held with family member Cognitive impairment Dementia with behavioral disturbance Dyspnea and respiratory abnormalities Alzheimer disease progressive decline September 2023 with worsening cognitive function. MoCA testing done patient scored 6/30/test is scanned in EMR. HE IS NOT DECISIONALLY COMPETENT. HIS MEDICAL POA IS DAUGHTER DARION HDEZ AND HIS LEGAL/FINANCIAL POA IS GRAND DAUGHTER KIMMIE LUNA WHO WORKS HERE AT [facility]. PAF (paroxysmal atrial fibrillation) COPD (chronic obstructive pulmonary disease) FORMER HEAVY SMOKER, OXYGEN DEPENDENT Encounter for pre-operative examination Polycystic kidney disease, adult type (09/03/12) History of home oxygen therapy 2L oxygen prn sat <90% per med record Limb alert care status LUE AV fistula LUE Hx MRSA infection ~02/2023, nares>per med record Hx of chest pain per med record from [facility] Alcoholic cirrhosis of liver with ascites Abnormal levels of other serum enzymes Gastrointestinal hemorrhage, unspecified End stage renal disease Unspecified intestinal obstruction, unspecified as to partial versus complete obstruction Chronic respiratory failure with hypoxia Insomnia Unspecified abnormalities of gait and mobility Low back pain, unspecified Unspecified fall, initial encounter Pain in unspecified wrist Fluid overload Acute respiratory failure with hypoxia Metabolic encephalopathy Epilepsy, unspecified, intractable, without status epilepticus Fall Bladder mass Cirrhosis of liver Ascites Confusion Ruptured middle cerebral artery aneurysm Seizure disorder Myoclonic jerking Bradycardia History of marijuana use daily Hx of atrial flutter 06/2021, hospitalized w/pneumonia for almost 3 weeks; dx atrial flutter- currently amiodarone; f/u dr[place] Paroxysmal atrial flutter Vitamin D deficiency Hypercalcemia Diverticulosis Gout hx Tremor of both hands Hypertension On home oxygen therapy 2L N/C at hs Low back pain Hemorrhoids "not currently flared" Benign neoplasm of skin of nose removed once HTN (hypertension) Anemia Intracranial hemorrhage 2012 Secondary hyperparathyroidism (of renal origin) Benign prostate hyperplasia Surgical History Hx of right cataract extraction S/P dialysis catheter insertion 09/2022, [facility] History of esophagogastroduodenoscopy (EGD) Hx of cardiac cath 07/2022, [facility], no stents History of abdominal paracentesis multiple, most recent 08/26/23 Status post creation of arteriovenous fistula LUE History of colonoscopy History of tooth extraction all teeth History of cerebral aneurysm repair 2012 [facility] Presby--clip in place; clip IS MRI COMPATIBLE Family History Mother , age 65 of cancer Cancer Father , age 60 from a tree falling on him No problems noted. Other No family history of adverse response to anesthesia Denies family history of Myocardial infarction Social History Smoking Status: Former smoker Tobacco Type: Cigarettes Age Started Using Tobacco: 16; Age Quit Using Tobacco: 71; packs per day: 1; Cigarettes Per Day: 1 pack; Second Hand Exposure: No; Do You Dip or Chew Tobacco: No; Hx Alcohol Use: Yes Alcohol type: beer Alcohol Intake Frequency Comment: None x2 years Hx Substance Use: Yes Last Used Substance: Unknown Last Used Substance Other:: 8 months or more Substance Use Type Other:: marijuana Preferred Language: Pashto Communication Ability: Effective Communication Ability Comment: "able to sign own consents" Paramedic Supervisor Required: No Beliefs That Will Affect Care: None marital status: Single Current Living Situation: Senior Care Current Living Situation Comment: [facility] How many Children do You have: 1 Feels Safe at Home: Yes Assistive Devices: Oxygen - Continuous and Walker Physical Exam Physical Exam: General: A&Ox2. Somnolent, falls back asleep easily. HEENT: Atraumatic, normocephalic. Pulm: Coarse. Symmetrical chest rise. No increased work of breathing. No respiratory distress. Cardiac: regular, tachycardia. Radial pulses intact and symmetrical. Abdominal: Tympanitic, distended. Mild RLQ ttp, no rebound/guarding. No epigastric ttp Ext: Warm, dry. No pitting edema in the ankles Results & Data Results & Data Vital Signs (Past 12 Hours) Vital Signs Temp Pulse Resp BP Pulse Ox O2 Del Method O2 Flow Rate 10/14/23 17:30 38.8 C H 104 H 25 H 119/53 L 90 Nasal Cannula 4 04/25/24 17:00 107 H 21 131/70 90 10/14/23 16:30 107 H 21 134/72 93 10/14/23 16:00 108 H 23 80 L 10/14/23 15:30 106 H 22 10/14/23 15:30 153/85 H 10/14/23 15:22 109 H 10/14/23 15:15 106 H 19 95 10/14/23 15:15 157/80 H 10/14/23 15:00 108 H 24 94 10/14/23 14:59 106 H Nasal Cannula 4 10/14/23 14:41 36.9 C 106 H 20 160/78 H 93 Nasal Cannula 4 PG Care Time/CCT Total # of Minutes Spent Total Time Spent with Patient: Total time spent is greater than 50% in coordination of care (as documented) at patient's floor/unit and/or counseling patient: Coding Level of Care Code 64752 INT INP/OBS CARE MIN Diagnoses Multifocal pneumonia J18.9 Small bowel obstruction K56.609 ESRD (end stage renal disease) N18.6 Melena K92.1 Hx of atrial flutter Z86.79 Alzheimer disease G30.9; F02.80
[2023-10-14 18:32] LABS: INR 1.1 (0.9-1.1); Partial Thromboplastin Time 27 Seconds (21-31); Prothrombin Time 12.2 Seconds (9.0-12.0)
[2023-10-14] MEDS ORDERED: ACETAMINOPHEN 10MG/ML Custom 500 MG in EMPTY BAG 0 ML IV PRN (18:54)
[2023-10-14] MEDS ORDERED: ONDANSETRON INJ 2 MG/ML 2 ML VIAL IV PRN (19:17)
[2023-10-14] MEDS: PANTOprazole 80 MG in DEXTROSE 5% 100 ML IV STA (19:22)
[2023-10-14 19:27] LABS: Adenovirus PCR Not Detected (NotDetected); Bordetella parapertussis PCR Not Detected (NotDetected); Bordetella pertussis PCR Not Detected (NotDetected); Chlamydia pneumoniae PCR Not Detected (NotDetected); Coronavirus 229E PCR Not Detected (NotDetected); Coronavirus CoV-2 (COVID19)PCR Not Detected (NotDetected); Coronavirus HKU1 PCR Not Detected (NotDetected); Coronavirus NL63 PCR Not Detected (NotDetected); Coronavirus OC43PCR Not Detected (NotDetected); Human Metapneumovirus PCR Not Detected (NotDetected); Influenza A PCR Not Detected (NotDetected); Influenza B PCR Not Detected (NotDetected); Mycoplasma pneumoniae PCR Not Detected (NotDetected); Parainfluenza Virus 1 PCR Not Detected (NotDetected); Parainfluenza Virus 2 PCR Not Detected (NotDetected); Parainfluenza Virus 3 PCR Not Detected (NotDetected); Parainfluenza Virus 4 PCR Not Detected (NotDetected); Respiratory Syncytial VirusPCR Not Detected (NotDetected); Rhinovirus/Enterovirus PCR Not Detected (NotDetected)
[2023-10-14 19:52] LABS: Troponin I High Sensitivity 50.6 pg/ml (0-20)
[2023-10-14 20:54] LABS: Bilirubin Direct 0.2 mg/dl (0-0.2); Troponin I High Sensitivity 53.3 pg/ml (0-20)
[2023-10-14] MEDS: PANTOprazole 40 MG in SYRINGE 0 ML IV SCH (21:30)
[2023-10-14] MEDS: DOXYCYCLINE HYCLATE 100 MG in DEXTROSE 5% MINI-B 100 ML IV SCH (21:30)
--- NOTE | 2023-10-14 21:39 | Surgery Consultation ---
Date of Consultation October 14, 2023 Assessment & Plan (1) Ileus: The patient has been admitted on the hospital service with whom I have discussed the case The patient is currently being treated for multifocal pneumonia with broad- spectrum antibiotics in the form of Zosyn and doxycycline. Appropriate cultures have been sent and antibiotics be tailored based on these results Nephrology has been consulted for dialysis needs There is concern on CT scan the patient may have an ileus versus a small bowel obstruction. I agree with NG tube placement which is already been performed. Consideration be given to removing NG tube once patient has improvement of his abdominal exam, as well as return of bowel function. At that time consideration be given to advancing his diet beginning with clear liquids There is also concern the patient has an underlying GI bleed and he is being treated appropriately with proton pump inhibitor Would recommend following serial labs Additional recommendations be forthcoming based on his clinical course as it unfolds History of Present Illness Reason for Consultation: Ileus versus small bowel obstruction Attending Physician: Trent Christianson, History of Present Illness This is a 73-year-old male who presented to the emergency department with his family secondary to confusion. The patient could not provide much meaningful history but I did discuss with the admitting hospitalist service to help supplement the history. According the patient's family he did not come more confused since earlier today and there was concern the patient had pneumonia as he has had clinical presentation such as this when he has had pneumonia. The patient reportedly had some nausea and vomiting and had some black emesis on his stark. He was also noted to have melanotic bowel movement earlier today. There is been no reported fevers, shakes, or chills. The patient is a dialysis patient and he undergoes dialysis on Wednesday. He also has known underlying liver disease secondary to suspected cirrhosis and alcohol abuse and underwent a recent paracentesis.Review of records show the patient has had a small bowel obstruction in the past most recently in April 2023. This was treated successfully in a conservative manner without the need for surgery (at that time the patient was considered a poor surgical candidate due to his underlying liver disease) Since arrival to the hospital the patient has had labs and imaging which independently reviewed. Chest x-ray showed trace bilateral pleural effusions along with multifocal airspace opacities potentially representing multifocal pneumonia. A CT scan of the abdomen pelvis was performed that showed distended and air-fluid loops of small bowel and stomach along with the distal esophagus with no definite transition point. The interpreting radiologist felt that this likely represented an ileus however partial small bowel obstruction could not be excluded. Trace ascites was noted. Labs include a CBC her white blood cell count and platelet count were normal. Hemoglobin was noted to be 12.9 with a normal hematocrit. Showed sodium and potassium were normal. The patient's BUN and creatinine were 64 and 6.3. A lactic acid level was checked which was noted to be 2.2. This was rechecked approximately 2 hours later and was noted to be within the normal range. The patient has had an NG tube placed and at the time of my interview he had approximately 800 cc of gastric contents in the container. Following NG tube placement the patient did have a confirmatory x-ray that did show that the NG tube was in the stomach. At the time of my interview the patient was resting comfortably in bed and he did not appear to be in any distress. Allergies Allergy/AdvReac Type Severity Reaction Status Date / Time lisinopril AdvReac Intermediate COUGH Verified 10/07/23 09:17 Home Medications Medication Instructions Recorded Confirmed Type tiotropium 2.5 mcg-olodaterol 2.5 2 puff inhalation QAM #4 grams 02/18/21 10/14/23 Rx mcg/actuation mist for inhalation (Stiolto Respimat) polyethylene glycol 3350 17 17 g PO DAILY Constipation 06/30/21 10/14/23 History gram/dose oral powder (Miralax) docusate sodium 100 mg capsule 400 mg PO BID 07/31/21 10/14/23 History (Colace) cinacalcet 30 mg tablet (Sensipar) 30 mg PO QAM 03/27/22 10/14/23 History epinephrine 0.3 mg/0.3 mL 0.3 mg IM Q4H PRN Anaphylaxis 08/29/22 10/14/23 History injection, auto-injector (EpiPen) ipratropium 0.5 mg-albuterol 3 mg 3 ml inhalation Q4H PRN Shortness 08/29/22 10/14/23 History (2.5 mg base)/3 mL nebulization Of Breath Or Wheezing soln amiodarone 200 mg tablet 200 mg PO QPM 11/17/22 10/14/23 History divalproex 500 mg tablet,delayed 500 mg PO QAM 11/17/22 10/14/23 History release loratadine 10 mg tablet (Wal-itin) 10 mg PO Q2D #0 tabs 12/10/22 10/14/23 Rx cholecalciferol (vitamin D3) 125 5,000 unit PO QPM 01/05/23 10/14/23 History mcg (5,000 unit) capsule thiamine HCl (vitamin B1) 100 mg 100 mg PO QAM 01/05/23 10/14/23 History tablet guaifenesin 1,200 mg tablet, 1,200 mg PO BID PRN Congestion 02/18/23 10/14/23 History extended release 12 hr (Mucinex) tramadol 50 mg tablet 50 mg PO Q6H PRN Pain, Moderate 02/18/23 10/14/23 History trazodone 50 mg tablet 50 mg PO HS 02/18/23 10/14/23 History famotidine 20 mg tablet 20 mg PO DIRECTED 04/27/23 10/14/23 History melatonin 5 mg tablet 15 mg PO HS 04/27/23 10/14/23 History vitamin B complex-vitamin C-folic 1 tab PO DAILY 06/18/23 10/14/23 History acid 0.8 mg tablet ([place]-Ancelmo) acetaminophen 325 mg tablet 325 mg PO Q4H PRN PAIN/FEVER 08/31/23 10/14/23 History ferric citrate 210 mg iron tablet 420 mg PO TIDM 08/31/23 10/14/23 History (Auryxia) lidocaine-prilocaine 2.5 %-2.5 % 1 applic topical UD 08/31/23 10/14/23 History topical cream ondansetron 4 mg disintegrating 4 mg PO Q6H PRN Nausea And Vomiting 08/31/23 10/14/23 History tablet sodium zirconium cyclosilicate 5 5 g PO DIRECTED 08/31/23 10/14/23 History gram oral powder packet (Lokelma) ketorolac 0.5 % eye drops 1 drp OPL QAM 09/26/23 10/14/23 History polyvinyl alcohol-povidone (PF) 1 drp OPB QID PRN Dry Eyes 09/26/23 10/14/23 History 1.4 %-0.6 % eye drops in a dropperette (Refresh Classic (PF)) prednisolone acetate 1 % eye 1 drp OPL QID 09/26/23 10/14/23 History drops,suspension protein supplement 30 ea PO BIDM 09/26/23 10/14/23 History white petrolatum (Vaseline jelly, 1 applic topical DAILY 09/26/23 10/14/23 History topical) fluticasone propionate 50 1 spray intranasal BID 7 days #16 09/30/23 10/14/23 Rx mcg/actuation nasal grams spray,suspension furosemide 40 mg tablet 40 mg PO BID 30 days #60 tabs 09/30/23 10/14/23 Rx Patient History Medical History Physician orders for life-sustaining treatment (POLST) form indicates patient wish for [id number] status Acute on chronic hypoxic respiratory failure Sepsis Multifocal pneumonia Acute hypoxemic respiratory failure Generalized weakness Abdominal ascites Acute respiratory failure with hypoxia Palliative care by specialist Discussion about advance care planning held with family member Cognitive impairment Dementia with behavioral disturbance Dyspnea and respiratory abnormalities Alzheimer disease progressive decline September 2023 with worsening cognitive function. MoCA testing done patient scored 630/test is scanned in EMR. HE IS NOT DECISIONALLY COMPETENT. HIS MEDICAL POA IS DAUGHTER DARION HDEZ AND HIS LEGAL/FINANCIAL POA IS GRAND DAUGHTER KIMMIE LUNA WHO WORKS HERE AT [facility]. PAF (paroxysmal atrial fibrillation) COPD (chronic obstructive pulmonary disease) FORMER HEAVY SMOKER, OXYGEN DEPENDENT Encounter for pre-operative examination Polycystic kidney disease, adult type (09/03/12) History of home oxygen therapy 2L oxygen prn sat <90% per med record Limb alert care status LUE AV fistula LUE Hx MRSA infection ~02/2023, nares>per med record Hx of chest pain per med record from senior living Alcoholic cirrhosis of liver with ascites Abnormal levels of other serum enzymes Gastrointestinal hemorrhage, unspecified End stage renal disease Unspecified intestinal obstruction, unspecified as to partial versus complete obstruction Chronic respiratory failure with hypoxia Insomnia Unspecified abnormalities of gait and mobility Low back pain, unspecified Unspecified fall, initial encounter Pain in unspecified wrist Fluid overload Acute respiratory failure with hypoxia Metabolic encephalopathy Epilepsy, unspecified, intractable, without status epilepticus Fall Bladder mass Cirrhosis of liver Ascites Confusion Ruptured middle cerebral artery aneurysm Seizure disorder Myoclonic jerking Bradycardia History of marijuana use daily Hx of atrial flutter 06/2021, hospitalized w/pneumonia for almost 3 weeks; dx atrial flutter- currently amiodarone; f/u dr. [place], [place] Paroxysmal atrial flutter Vitamin D deficiency Hypercalcemia Diverticulosis Gout hx Tremor of both hands Hypertension On home oxygen therapy 2L N/C at hs Low back pain Hemorrhoids "not currently flared" Benign neoplasm of skin of nose removed once HTN (hypertension) Anemia Intracranial hemorrhage 2012 Secondary hyperparathyroidism (of renal origin) Benign prostate hyperplasia Surgical History Hx of right cataract extraction S/P dialysis catheter insertion 09/2022, [facility] History of esophagogastroduodenoscopy (EGD) Hx of cardiac cath 07/2022, [facility], stents History of abdominal paracentesis multiple, most recent 08/26/23 Status post creation of arteriovenous fistula LUE History of colonoscopy History of tooth extraction all teeth History of cerebral aneurysm repair 2012 [facility] [place]--clip in place; clip IS MRI COMPATIBLE Family History Mother , age 65 of cancer Cancer Father , age 60 from a tree falling on him No problems noted. Other No family history of adverse response to anesthesia Denies family history of Myocardial infarction Social History Smoking Status: Former smoker Tobacco Type: Cigarettes Age Started Using Tobacco: 16; Age Quit Using Tobacco: 71; packs per day: 1; Cigarettes Per Day: 1 pack; Second Hand Exposure: No; Do You Dip or Chew Tobacco: No; Hx Alcohol Use: No Hx Substance Use: No Preferred Language: Bahraini Communication Ability: Effective Communication Ability Comment: "able to sign own consents" Burlap Spreader Required: No Beliefs That Will Affect Care: None marital status: Single Current Living Situation: Senior Living Current Living Situation Comment: [facility] How many Children do You have: 1 Feels Safe at Home: Yes Assistive Devices: Walker and Wheelchair Review of Systems Constitutional: no fever Ear, Nose, Mouth, Throat: no hearing loss Respiratory: no dyspnea Cardiovascular: no chest pain Gastrointestinal: as per Subjective / HPI Musculoskeletal: no back pain Integumentary: no rash Neurologic: no localized weakness Physical Exam Constitutional: well developed and well nourished; no acute distress Eyes: no conjunctival abnormality ENMT: Ears: no external ear abnormality Neck: trachea midline Respiratory: normal respiratory effort; no respiratory distress and no labored breathing Breath sounds are noted to be slightly decreased at bases Cardiovascular: Rate/Rhythm: regular rate and regular rhythm Gastrointestinal (Abdomen): Abdomen has mild to moderate distention. There is no tympany to percussion.There is no rebound tenderness or guarding. Palpation of his abdomen did not appear to elicit a painful response Musculoskeletal: No calf tenderness Skin: no rashes Neurologic: moves all extremities Results & Data Vital Signs (Past 12 Hours) Vital Signs Temp Pulse Resp BP Pulse Ox O2 Del Method O2 Flow Rate 10/14/23 18:51 104 H 10/14/23 17:30 38.8 C H 104 H 25 H 119/53 L 90 Nasal Cannula 4 10/14/23 17:00 107 H 21 131/70 90 10/14/23 16:30 107 H 21 134/72 93 10/14/23 16:00 108 H 23 80 L 10/14/23 15:30 106 H 22 10/14/23 15:30 153/85 H 10/14/23 15:22 109 H 10/14/23 15:15 106 H 19 95 10/14/23 15:15 157/80 H 10/14/23 15:00 108 H 24 94 10/14/23 14:59 106 H Nasal Cannula 4 10/14/23 14:41 36.9 C 106 H 20 160/78 H 93 Nasal Cannula 4 PG Care Time/CCT Total # of Minutes Spent Total Time Spent with Patient: Total time spent is greater than 50% in coordination of care (as documented) at patient's floor/unit and/or counseling patient: Coding Level of Care Code 56364 INT INP/OBS CARE 3/75MIN Diagnoses Ileus K56.7
[2023-10-14] MEDS ORDERED: VANCOMYCIN CONSULT ACTIVE PRN (21:42)
[2023-10-14] MEDS ORDERED: VANCOMYCIN HCL 1,250 MG in SODIUM CHLORIDE 0.9% 500 ML IV SCH (21:45)
[2023-10-14] MEDS: PIPERACILLIN/TAZOBACTAM 4.5 GM in DEXTROSE 5% MINI-B 100 ML IV SCH (21:57)
[2023-10-14] MEDS: PIPERACILLIN/TAZOBACTAM 4.5 GM/100ML D5W IV ONE (22:31)
[2023-10-14] MEDS: CEFEPIME 1,000 MG in SYRINGE 0 ML IV SCH (22:32)
[2023-10-14] MEDS ORDERED: ALBUT/IPRATROP 3MG/0.5MG NEB 3 ML VIAL INH PRN (22:56)
[2023-10-14] MEDS: VANCOMYCIN HCL 1,500 MG in SODIUM CHLORIDE 0.9% 500 ML IV ONE (23:18)
[2023-10-15 00:02] LABS: Hematocrit (blood only) 37.7 % (42.0-52.0); Hemoglobin 11.5 g/dl (14.0-18.0)
[2023-10-15] MEDS: metroNIDAZOLE 500 MG/100 ML BAG IV SCH (00:12)
[2023-10-15] MEDS: FLUTICASONE PROPIONATE NA SPR 16 GM BTL NAE SCH (00:12)
[2023-10-15 06:21] LABS: Basophils # (auto) 0.05 K/uL (0.00-0.20); Basophils % (auto) 0.6 %; Eosinophils # (auto) 0.29 K/uL (0.00-0.50); Eosinophils % (auto) 3.6 %; Hematocrit (blood only) 37.7 % (42.0-52.0); Hemoglobin 11.4 g/dl (14.0-18.0); Immature Granulocytes # (auto) 0.05 K/uL (0.01-0.20); Immature Granulocytes % (auto) 0.6 %; Lymphocytes # (auto) 0.64 K/uL (1.20-3.40); Lymphocytes % (auto) 7.9 %; Mean Corpuscular Hemoglobin 28.4 pg (25.0-34.0); Mean Corpuscular Hgb Conc 30.2 g/dL (32.0-36.0); Mean Corpuscular Volume 93.8 fL (80.0-100.0); Mean Platelet Volume 10.3 fL (9.4-12.4); Monocytes # (auto) 1.11 K/uL (0.11-0.59); Monocytes % (auto) 13.7 %; Neutrophils # (auto) 5.99 K/uL (1.40-6.50); Neutrophils % (auto) 73.6 %; Platelet Count 153 K/uL (130-400); RDW Coefficient of Variation 19.2 % (11.5-14.5); RDW Standard Deviation 66.9 fL (36.4-46.3); Red Blood Count 4.02 M/uL (4.70-6.10); White Blood Count 8.13 K/ul (4.8-10.8)
[2023-10-15 06:27] LABS: Albumin Globulin Ratio 1.3 (0.9-2); Albumin Level 3.3 gm/dl (3.4-5.0); BUN Creatinine Ratio 10.7 (10-20); Bilirubin,Total 0.5 mg/dl (0.2-1.0); Calcium 8.9 mg/dl (8.6-10.3); Creatinine Clr Calc Pharmacy 9.9 ml/min; Est GFR (African American) 7.8 ml/min; Est GFR (Non-African American) 6.7 ml/min; Globulin 2.5 gm/dl (2.5-4.0); Potassium 4.8 mmol/L (3.5-5.1); Total Protein 5.8 gm/dl (6.0-8.3)
--- NOTE | 2023-10-15 07:20 | XRay Report ---
KUB CLINICAL HISTORY: NG tube placement COMPARISON STUDY: CT of the abdomen and pelvis performed earlier today. FINDINGS: Tip of nasogastric tube projects over the gastric cardia. Sidehole of the nasogastric tube is at the level of the distal esophagus. Dilated small bowel loops are again noted, as shown on CT pe rformed earlier today. IMPRESSION: 1. Tip of nasogastric tube projects over the gastric cardia. The tube could be advanced 5 cm. 2. Small bowel dilatation, similar to CT performed earlier today. ACT 112: Negative or not required by law. Electronically signed by: Yunior Arroyo M.D. 10/15/2023 7:19 AM
[2023-10-15] MEDS ORDERED: VANCOMYCIN CONSULT ACTIVE PRN (07:31)
[2023-10-15] MEDS ORDERED: VANCOMYCIN HCL 1,250 MG in SODIUM CHLORIDE 0.9% 500 ML IV SCH (07:45)
[2023-10-15] MEDS: UMECLIDINIUM/VILANTEROL 62.5/25MCG 7 PUFFS/INHALER INH SCH (08:43)
--- NOTE | 2023-10-15 08:43 | Surgery Progress Note ---
Date of Service October 15, 2023 Assessment & Plan (1) Ileus: Plan: in light of no surgical hx likely ileus rather than sbo no indications for surgical indications currently. will repeat KUB to see if ngt can be removed rec consult GI for UGI bleed/melanotic stool. Dr. Redd covering for weekend if any concerns (2) Melena: (3) ESRD (end stage renal disease): (4) UGIB (upper gastrointestinal bleed): (5) CHF (congestive heart failure): Admission and Anticipated Discharge Date Admission Date: October 14, 2023 Subjective pt seen. oriented but very sleepy. falls back asleep immediately if not stimulated. denies pain or nausea currently. Physical Exam Physical Exam: alert/oriented but somnolent abd: soft. nt. minimal distenstion Results & Data Vital Signs (Past 12 Hours) Vital Signs Temp Pulse Resp BP BP Pulse Ox Pulse Ox 10/15/23 07:00 36.7 C 92 H 20 162/62 H 92 10/15/23 01:35 10/15/23 01:30 36.6 C 91 H 18 171/67 H 90 10/15/23 00:00 37.1 C 10/15/23 00:00 93 10/15/23 00:00 92 H 18 119/64 93 O2 Del Method O2 Del Method O2 Flow Rate 10/15/23 07:00 Nasal Cannula 3 10/15/23 01:35 Nasal Cannula 2 10/15/23 01:30 Nasal Cannula 3 10/15/23 00:00 10/15/23 00:00 Room Air 10/15/23 00:00 Room Air PG Care Time/CCT Total # of Minutes Spent Total Time Spent with Patient: Total time spent is greater than 50% in coordination of care (as documented) at patient's floor/unit and/or counseling patient: Coding Level of Care Code 74878 SUB INP/OBS CARE 2/35MIN Diagnoses Ileus K56.7 Melena K92.1 ESRD (end stage renal disease) N18.6 UGIB (upper gastrointestinal bleed) K92.2 CHF (congestive heart failure) I50.9
[2023-10-15] MEDS: MoRPHine SULFATE 2 MG/ML CARP IV PRN (08:45)
[2023-10-15] MEDS ORDERED: SODIUM CHLORIDE 0.9% 1,000 ML IV PRN (08:47)
--- NOTE | 2023-10-15 09:37 | Hospitalist Progress Note ---
Date of Service October 15, 2023 Assessment & Plan (1) Multifocal pneumonia: Plan: Sepsis due to multifocal pneumonia, possible aspiration -CXR demonstrating multifocal pneumonia -Recurrent ileus/SBO with emesis which may have led to aspiration -Meeting SIRS criteria on admission -RVP negative -MRSA nares positive, noted history of previous MRSA pneumonia as well -BCx, sputum Cx pending -Zosyn/doxycycline on admission switched to cefepime/Flagyl/vancomycin -Given good improvement, will de-escalate antibiotics to Rocephin only -Monitor CBC (2) Small bowel obstruction: Plan: - CTAP concerning for ileus/SBO w/o clear transition point - NGT placed on admission General surgery consulted- more likely ileus than SBO -No surgical intervention at present -Possible removal of NGT today pending KUB results + serial exams NPO, Zofran, hydromorphone as needed for pain/nausea (3) ESRD (end stage renal disease): Plan: Euvolemic at present - Cr 7.33 today, electrolytes stable - Nephrology consulted for dialysis management (4) Melena: Plan: Large dark bowel movement which was weakly FOBT+. Pt is on Auryxia Hemoglobin 12.9 on admission, now 11.5 - Continue pantoprazole BID - Poor endoscopy candidate due to comorbidities, active infection/PNA - Deferring GI consult due to hemodynamic stability, stable Hgb - Transfuse Hgb < 7 - Monitor CBC (5) Hx of atrial flutter: Plan: Amiodarone held while NPO. If prolonged n.p.o. can switch this to IV. - Remains in sinus tachycardia- 90s/low 100s at present - Deferring anticoagulation due to UGIB (6) Alzheimer disease: Plan: Patient is not competent for medical decision-making. Please contact patient's daughter Jenny at [phone] for any updates, changes in status, or medical decision making Plan DVT prophylaxis: SCDs, pharmacologic prophylaxis contraindicated Diet: NPO Disposition: PCU CODE STATUS- No intubation or chest compressions and complete cardiopulmonary arrest; is okay with ICU transfer/shock/meds Admission and Anticipated Discharge Date Admission Date: October 14, 2023 Supervising Physician Co-Signing Physician Notes I personally examined the patient and verified all reyes points of history and exam, discussed case, and agree with decision making with Dr Zarate seen multiple times. Discussed with nephrology. Patient denies shortness of breath every time I see him. The first time I see him he says his belly feels fine, later he is complaining of his belly being a little bit upset. Vitals noted, in general he is awake and alert pleasant no distress. HEENT normocephalic atraumatic NG tube in place. Lungs quiet but no rales rhonchi or wheezes no accessory muscle use no appearance of dyspnea. Skin shows no rashes no pallor or icterus. Abdomen is soft may be mildly distended earlier today nontender at all, that the on second visit mild nondescript tenderness. Output in NG tube noted. Small bowel obstructionseems to be improving. Earlier today I was hopeful of being able to turn off suction and possibly DC NG tube as the day progressed given how well his belly examined and how little his symptoms were, but given that his symptoms seems to have recurred a little, will be safer to keep NG in at least until tomorrow morning. Aspiration pneumoniaappears to be improving nicely. Narrow antibiotics to ceftriaxone ESRD/fluid statustenuous given that he is currently n.p.o., but also he is a dialysis dependent renal failure patientappears to be euvolemic at this time, will hold off on fluids, low threshold to start them, does not appear volume overloaded. Heme positive stoolsno appearance of hemorrhage, nonspecific, hemoglobin stable. Watchful waiting, likely for outpatient follow-up. Subjective Acute events overnight- none. Pt examined at bedside. Drowsy but arousable, denies dyspnea, chest pain, cough and states he feels ok. Review of Systems Review of Systems: Per HPI/Subjective Physical Exam Physical Exam: General: A&Ox person, place. Drowsy but interactive. HEENT: Atraumatic, normocephalic. Pulm: Diminished and coarse breath sounds b/l. Symmetrical chest rise. No increased work of breathing. No respiratory distress. Cardiac: regular rhythm, tachycardic, no murmurs Abdominal: Mildly distended, nontender, soft. No rebound/guarding. Ext: Warm, dry. No pitting edema in the ankles Results & Data Results & Data Vital Signs (Past 12 Hours) Vital Signs Temp Pulse Resp BP BP Pulse Ox Pulse Ox 10/15/23 07:00 36.7 C 92 H 20 162/62 H 92 10/15/23 01:35 10/15/23 01:30 36.6 C 91 H 18 171/67 H 90 10/15/23 00:00 37.1 C 10/15/23 00:00 93 10/15/23 00:00 92 H 18 119/64 93 O2 Del Method O2 Del Method O2 Flow Rate 10/15/23 07:00 Nasal Cannula 3 10/15/23 01:35 Nasal Cannula 2 10/15/23 01:30 Nasal Cannula 3 10/15/23 00:00 10/15/23 00:00 Room Air 10/15/23 00:00 Room Air Resident Activity Tracking Resident Involvement: Resident Care Provided Care Provided: Adult Hospital Medicine
--- NOTE | 2023-10-15 10:20 | XRay Report ---
KUB HISTORY: eval small bowel obstruction, w/ NGT COMPARISON: KUB 10/14/2023. FINDINGS: The tip of the nasogastric tube terminates in the gastric cardia. This could be advanced by approximately 5 cm. This is unchanged in position. The distended stomach has improved. Mild dilated gas-filled loops of small bowel are again noted. These are similar to the prior study. Vascular calci fications are present. No renal calculi. No ureteral calculi. No pneumoperitoneum or pneumatosis. IMPRESSION: 1. The tip of nasogastric tube terminates at the gastric cardia, unchanged. This could be advanced by approximately 5 cm. 2. Gastric distention has improved. 3. Mildly dilated gas-filled loops of small bowel persist. ACT 112: Negative or not required by law. Electronically signed by: Jef Avery M.D. 10/15/2023 10:18 AM
--- NOTE | 2023-10-15 11:00 | Nephrology Consultation ---
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 Transitioned from CAPD to IHD 01/10 * Outpatient HD Rx: [facility] MWF 4.25 hr, 2K 2.5Ca, 35 HCO3, F-180NR, Qb400/Qd800, EDW 74kg, LUE AVF * Will provide HD today using Crit-line monitor to guide UF. No heparin due to concern for GI blood loss. Orders have been placed in EMR and HD RN notified * Will order PRP for am (2) Ileus: * NG tube to ILWS. On exam this morning patient does have hypoactive BS (3) HTN (hypertension): * BP is mildly elevated this am. Expect this will come down following UF. Will monitor (4) Anemia: * Patient reports melena, however Hgb 11.2. No acute indication for PATRICK. Will monitor H&H History of Present Illness Reason for Consultation: ESKD Attending Physician: Trent Christianson DO History of Present Illness Mr. Redmond is a 73 year old male who is seen at the request of the [facility] to provide inpatient HD and assist w/ medical management. Information for the HPI is obtained from patient interview and review of the EMR. 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 He is on IHD at [facility] under the care of Dr. Romo (MWF 4.25 hr, 2K 2.5Ca, 35 HCO3, F-180NR, Qb400/Qd800, EDW 74kg, LUE AVF). Mr. Redmond had previously been on PD. His peritoneal catheter has been removed and he transitioned back to HD due to progressive dementia and difficulty completing dialysis treatments at home. Mr. Redmond has a h/o cirrhosis and recurrent abdominal ascites requiring periodic paracentesis. He was experiencing abdominal distention yesterday and presented for paracentesis. Imaging however revealed the presence of abdominal ileus. NG tube was placed and patient was admitted for ongoing medical care. He currently denies fever, abdominal pain or diarrhea. CXR reveals bibasilar infiltrates c/w atelectasis vs multifocal pneumonia. Patient reports dark tarry stool but is on oral iron therapy. 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 Allergies Allergy/AdvReac Type Severity Reaction Status Date / Time lisinopril AdvReac Intermediate COUGH Verified 10/07/23 09:17 Home Medications Medication Instructions Recorded Confirmed Type tiotropium 2.5 mcg-olodaterol 2.5 2 puff inhalation QAM #4 grams 02/18/21 10/14/23 Rx mcg/actuation mist for inhalation (Stiolto Respimat) polyethylene glycol 3350 17 17 g PO DAILY Constipation 06/30/21 10/14/23 History gram/dose oral powder (Miralax) docusate sodium 100 mg capsule 400 mg PO BID 07/31/21 10/14/23 History (Colace) cinacalcet 30 mg tablet (Sensipar) 30 mg PO QAM 03/27/22 10/14/23 History epinephrine 0.3 mg/0.3 mL 0.3 mg IM Q4H PRN Anaphylaxis 08/29/22 10/14/23 History injection, auto-injector (EpiPen) ipratropium 0.5 mg-albuterol 3 mg 3 ml inhalation Q4H PRN Shortness 08/29/22 10/14/23 History (2.5 mg base)/3 mL nebulization Of Breath Or Wheezing soln amiodarone 200 mg tablet 200 mg PO QPM 11/17/22 10/14/23 History divalproex 500 mg tablet,delayed 500 mg PO QAM 11/17/22 10/14/23 History release loratadine 10 mg tablet (Wal-itin) 10 mg PO Q2D #0 tabs 12/10/22 10/14/23 Rx cholecalciferol (vitamin D3) 125 5,000 unit PO QPM 01/05/23 10/14/23 History mcg (5,000 unit) capsule thiamine HCl (vitamin B1) 100 mg 100 mg PO QAM 01/05/23 10/14/23 History tablet guaifenesin 1,200 mg tablet, 1,200 mg PO BID PRN Congestion 02/18/23 10/14/23 History extended release 12 hr (Mucinex) tramadol 50 mg tablet 50 mg PO Q6H PRN Pain, Moderate 02/18/23 10/14/23 History trazodone 50 mg tablet 50 mg PO HS 02/18/23 10/14/23 History famotidine 20 mg tablet 20 mg PO DIRECTED 04/27/23 10/14/23 History melatonin 5 mg tablet 15 mg PO HS 04/27/23 10/14/23 History vitamin B complex-vitamin C-folic 1 tab PO DAILY 06/18/23 10/14/23 History acid 0.8 mg tablet ([place]-Ancelmo) acetaminophen 325 mg tablet 325 mg PO Q4H PRN PAIN/FEVER 08/31/23 10/14/23 History ferric citrate 210 mg iron tablet 420 mg PO TIDM 08/31/23 10/14/23 History (Auryxia) lidocaine-prilocaine 2.5 %-2.5 % 1 applic topical UD 08/31/23 10/14/23 History topical cream ondansetron 4 mg disintegrating 4 mg PO Q6H PRN Nausea And Vomiting 08/31/23 10/14/23 History tablet sodium zirconium cyclosilicate 5 5 g PO DIRECTED 08/31/23 10/14/23 History gram oral powder packet (Lokelma) ketorolac 0.5 % eye drops 1 drp OPL QAM 09/26/23 10/14/23 History polyvinyl alcohol-povidone (PF) 1 drp OPB QID PRN Dry Eyes 09/26/23 10/14/23 History 1.4 %-0.6 % eye drops in a dropperette (Refresh Classic (PF)) prednisolone acetate 1 % eye 1 drp OPL QID 09/26/23 10/14/23 History drops,suspension protein supplement 30 ea PO BIDM 09/26/23 10/14/23 History white petrolatum (Vaseline jelly, 1 applic topical DAILY 09/26/23 10/14/23 History topical) fluticasone propionate 50 1 spray intranasal BID 7 days #16 09/30/23 10/14/23 Rx mcg/actuation nasal grams spray,suspension furosemide 40 mg tablet 40 mg PO BID 30 days #60 tabs 09/30/23 10/14/23 Rx Patient History Medical History Physician orders for life-sustaining treatment (POLST) form indicates patient wish for [id number] status Acute on chronic hypoxic respiratory failure Sepsis Multifocal pneumonia Acute hypoxemic respiratory failure Generalized weakness Abdominal ascites Acute respiratory failure with hypoxia Palliative care by specialist Discussion about advance care planning held with family member Cognitive impairment Dementia with behavioral disturbance Dyspnea and respiratory abnormalities Alzheimer disease progressive decline September 2023 with worsening cognitive function. MoCA testing done patient scored 6/30/test is scanned in EMR. HE IS NOT DECISIONALLY COMPETENT. HIS MEDICAL POA IS DAUGHTER DARION HDEZ AND HIS LEGAL/FINANCIAL POA IS GRAND DAUGHTER KIMMIE LUNA WHO WORKS HERE AT [facility]. PAF (paroxysmal atrial fibrillation) COPD (chronic obstructive pulmonary disease) FORMER HEAVY SMOKER, OXYGEN DEPENDENT Encounter for pre-operative examination Polycystic kidney disease, adult type (09/03/12) History of home oxygen therapy 2L oxygen prn sat <90% per med record Limb alert care status LUE AV fistula LUE Hx MRSA infection ~02/2023, nares>per med record Hx of chest pain per med record from senior care Alcoholic cirrhosis of liver with ascites Abnormal levels of other serum enzymes Gastrointestinal hemorrhage, unspecified End stage renal disease Unspecified intestinal obstruction, unspecified as to partial versus complete obstruction Chronic respiratory failure with hypoxia Insomnia Unspecified abnormalities of gait and mobility Low back pain, unspecified Unspecified fall, initial encounter Pain in unspecified wrist Fluid overload Acute respiratory failure with hypoxia Metabolic encephalopathy Epilepsy, unspecified, intractable, without status epilepticus Fall Bladder mass Cirrhosis of liver Ascites Confusion Ruptured middle cerebral artery aneurysm Seizure disorder Myoclonic jerking Bradycardia History of marijuana use daily Hx of atrial flutter 06/2021, hospitalized w/pneumonia for almost 3 weeks; dx atrial flutter- currently amiodarone; f/u dr. adkins, [place] Paroxysmal atrial flutter Vitamin D deficiency Hypercalcemia Diverticulosis Gout hx Tremor of both hands Hypertension On home oxygen therapy 2L N/C at hs Low back pain Hemorrhoids "not currently flared" Benign neoplasm of skin of nose removed once HTN (hypertension) Anemia Intracranial hemorrhage 2012 Secondary hyperparathyroidism (of renal origin) Benign prostate hyperplasia Surgical History Hx of right cataract extraction S/P dialysis catheter insertion 09/2022, [facility] History of esophagogastroduodenoscopy (EGD) Hx of cardiac cath 07/2022, [facility], no stents History of abdominal paracentesis multiple, most recent 08/26/23 Status post creation of arteriovenous fistula LUE History of colonoscopy History of tooth extraction all teeth History of cerebral aneurysm repair 2012 [facility] [place]--clip in place; clip IS MRI COMPATIBLE Family History Mother , age 65 of cancer Cancer Father , age 60 from a tree falling on him No problems noted. Other No family history of adverse response to anesthesia Denies family history of Myocardial infarction Social History Smoking Status: Former smoker Tobacco Type: Cigarettes Age Started Using Tobacco: 16; Age Quit Using Tobacco: 71; packs per day: 1; Cigarettes Per Day: 1 pack; Second Hand Exposure: No; Do You Dip or Chew Tobacco: No; Hx Alcohol Use: No Hx Substance Use: No Preferred Language: Cymraes Communication Ability: Effective Communication Ability Comment: "able to sign own consents" Cadmium Burner Required: No Beliefs That Will Affect Care: None marital status: Single Current Living Situation: Longterm Current Living Situation Comment: [facility] [address] [place] How many Children do You have: 1 Feels Safe at Home: Yes Assistive Devices: Walker and Wheelchair Review of Systems Constitutional: no fever Eyes: no problem reported Ear, Nose, Mouth, Throat: no problem reported Respiratory: no cough and no dyspnea Cardiovascular: no chest pain Gastrointestinal: no abdominal pain, no nausea, no vomiting and no diarrhea/loose stools Integumentary: no rash Physical Exam Constitutional: + ill appearing; not in distress Eyes: PERRL, conjunctivae normal, anicteric sclerae ENMT: external ear and nose normal, oropharynx normal Neck: trachea midline, no thyromegaly Respiratory: normal respiratory effort, lungs clear to auscultation Cardiovascular: RRR, no murmur, no edema Gastrointestinal (Abdomen): Inspection/Auscultation: + abdomen distended and + hypoactive bowel sounds Percussion/Palpation: + tympanic to percussion; abdomen nontender and no guarding Skin: no rashes, warm and dry + turgor decreased Neurologic: awake; not confused Results & Data Vital Signs (Past 12 Hours) Vital Signs Temp Pulse Resp BP BP Pulse Ox Pulse Ox 10/15/23 07:00 36.7 C 92 H 20 162/62 H 92 10/15/23 01:35 10/15/23 01:30 36.6 C 91 H 18 171/67 H 90 10/15/23 00:00 37.1 C 10/15/23 00:00 93 10/15/23 00:00 92 H 18 119/64 93 O2 Del Method O2 Del Method O2 Flow Rate 10/15/23 07:00 Nasal Cannula 3 10/15/23 01:35 Nasal Cannula 2 10/15/23 01:30 Nasal Cannula 3 10/15/23 00:00 10/15/23 00:00 Room Air 10/15/23 00:00 Room Air Laboratory Results Laboratory Results WBC 8.13 K/ul (4.8-10.8) 10/15/23 05:29 RBC 4.02 M/uL (4.70-6.10) L 10/15/23 05:29 Hgb 11.4 g/dl (14.0-18.0) L 10/15/23 05:29 Hct 37.7 % (42.0-52.0) L 10/15/23 05:29 MCV 93.8 fL (80.0-100.0) 10/15/23 05:29 MCH 28.4 pg (25.0-34.0) 10/15/23 05:29 MCHC 30.2 g/dL (32.0-36.0) L 10/15/23 05:29 RDW Std Deviation 66.9 fL (36.4-46.3) H 10/15/23 05:29 RDW Coeff of Giovana 19.2 % (11.5-14.5) H 10/15/23 05:29 Plt Count 153 K/uL (130-400) 10/15/23 05:29 MPV 10.3 fL (9.4-12.4) 10/15/23 05:29 Immature Gran % (Auto) 0.6 % 10/15/23 05:29 Neut % (Auto) 73.6 % 10/15/23 05:29 Lymph % (Auto) 7.9 % 10/15/23 05:29 [place] % (Auto) 13.7 % 10/15/23 05:29 Eos % (Auto) 3.6 % 10/15/23 05:29 Baso % (Auto) 0.6 % 10/15/23 05:29 Neut # (Auto) 5.99 K/uL (1.40-6.50) 10/15/23 05:29 Lymph # (Auto) 0.64 K/uL (1.20-3.40) L 10/15/23 05:29 [place] # (Auto) 1.11 K/uL (0.11-0.59) H 10/15/23 05:29 Eos # (Auto) 0.29 K/uL (0.00-0.50) 10/15/23 05:29 Baso # (Auto) 0.05 K/uL (0.00-0.20) 10/15/23 05:29 Immature Gran # (Auto) 0.05 K/uL (0.01-0.20) 10/15/23 05:29 Poikilocytosis Present 10/14/23 15:36 PT 12.2 Seconds (9.0-12.0) H 10/14/23 17:45 INR 1.1 (0.9-1.1) 10/14/23 17:45 APTT 27 Seconds (21-31) 10/14/23 17:45 PTT Ratio 1.0 10/14/23 17:45 Sodium 139 mmol/L (136-145) 10/15/23 05:29 Potassium 4.8 mmol/L (3.5-5.1) 10/15/23 05:29 Chloride 99 mmol/L (98-107) 10/15/23 05:29 Carbon Dioxide 29 mmol/L (21-32) 10/15/23 05:29 Anion Gap 11 (3-11) 10/15/23 05:29 BUN 78 mg/dl (6-23) H 10/15/23 05:29 Creatinine 7.30 mg/dl (0.6-1.4) H* D 10/15/23 05:29 Est Cr Clr Drug Dosing 9.9 ml/min 10/15/23 05:29 Est GFR ( Amer) 7.8 ml/min 10/15/23 05:29 Est GFR (Non-Af Amer) 6.7 ml/min 10/15/23 05:29 BUN/Creatinine Ratio 10.7 (10-20) 10/15/23 05:29 Glucose 92 mg/dl (70-99(Fasting)) 10/15/23 05:29 Lactate 1.6 mmol/L (0.4-2.0) 10/14/23 17:45 Calcium 8.9 mg/dl (8.6-10.3) 10/15/23 05:29 Magnesium 2.0 mg/dl (1.7-2.4) 10/15/23 05:29 Total Bilirubin 0.5 mg/dl (0.2-1.0) 10/15/23 05:29 Direct Bilirubin 0.2 mg/dl (0-0.2) 10/14/23 20:16 AST 23 U/L (13-39) 10/15/23 05:29 ALT 17 U/L (7-52) 10/15/23 05:29 Alkaline Phosphatase 65 U/L (34-104) 10/15/23 05:29 Ammonia 55.0 umol/L (18-72) 10/14/23 16:48 Troponin I High Sens 52.8 pg/ml (0-20) H* 10/15/23 05:29 Total Protein 5.8 gm/dl (6.0-8.3) L 10/15/23 05:29 Albumin 3.3 gm/dl (3.4-5.0) L 10/15/23 05:29 Globulin 2.5 gm/dl (2.5-4.0) 10/15/23 05:29 Albumin/Globulin Ratio 1.3 (0.9-2) 10/15/23 05:29 Procalcitonin 1.80 ng/ml (0-0.5) H 10/14/23 17:45 Nasal Screen MRSA (PCR) Positive (Negative) A 10/14/23 20:14 Random Vancomycin 17.6 mcg/ml (10-20) 10/15/23 07:31 Adenovirus (PCR) Not Detected (NotDetected) 10/14/23 18:17 B. pertussis DNA (PCR) Not Detected (NotDetected) 10/14/23 18:17 B.parapertussis DNA PCR Not Detected (NotDetected) 10/14/23 18:17 C. pneumoniae DNA (PCR) Not Detected (NotDetected) 10/14/23 18:17 Coronavirus OC43 (PCR) Not Detected (NotDetected) 10/14/23 18:17 Coronavirus HKU1 (PCR) Not Detected (NotDetected) 10/14/23 18:17 Coronavirus 229E (PCR) Not Detected (NotDetected) 10/14/23 18:17 SARS-CoV-2 (PCR) Not Detected (NotDetected) 10/14/23 18:17 Coronavirus NL63 (PCR) Not Detected (NotDetected) 10/14/23 18:17 Human Metapneumovir PCR Not Detected (NotDetected) 10/14/23 18:17 Influenza Type A (PCR) Not Detected (NotDetected) 10/14/23 18:17 Influenza Type B (PCR) Not Detected (NotDetected) 10/14/23 18:17 M. pneumoniae (PCR) Not Detected (NotDetected) 10/14/23 18:17 Parainfluenza 1 (PCR) Not Detected (NotDetected) 10/14/23 18:17 Parainfluenza 2 (PCR) Not Detected (NotDetected) 10/14/23 18:17 Parainfluenza 3 (PCR) Not Detected (NotDetected) 10/14/23 18:17 Parainfluenza 4 (PCR) Not Detected (NotDetected) 10/14/23 18:17 RSV (PCR) Not Detected (NotDetected) 10/14/23 18:17 Entero/Rhino (PCR) Not Detected (NotDetected) 10/14/23 18:17 Impressions Abdomen/Pelvis CT 10/14/23 14:[address] WITHOUT CONTRAST CT DOSE: 1350.27 mGy.cm HISTORY: Abnormal ultrasound. abdominal distention TECHNIQUE: Multiaxial CT images of the abdomen and pelvis were performed without contrast. A dose lowering technique was utilized adhering to the principles of ALARA. COMPARISON STUDY: Abdomen and pelvis CT 04/27/2023. FINDINGS: There are small bilateral pleural effusions which have increased in size. The heart remains enlarged. Mild interlobular septal thickening within the lung bases suggestive of mild pulmonary edema. There are patchy bibasilar densities which may represent atelectasis. A pneumonia would be difficult to exclude by imaging. No pneumoperitoneum. No pneumatosis. There are healing right posterior ninth through 11th rib fractures. No acute fractures identified. Fluid-filled mildly distended esophagus. The stomach is also fluid-filled and moderately distended. Multiple mildly dilated gas and fluid-filled loops of small bowel seen throughout the abdomen. No transition point identified. This is similar to the prior study and favors an ileus. A low-grade partial small bowel obstruction is not excluded. A few jejunal loops within the left side the abdomen may be slightly thickened. Therefore, this raises the possibility of a mild enteritis. [id number] fecal retention. Normal appendix. Trace ascites. This has improved. The unenhanced liver, spleen, adrenal glands, and pancreas are unremarkable. Calcified plaque within the normal caliber abdominal aorta. Mild body wall edema. No retroperitoneal or pelvic lymphadenopathy. No hydronephrosis. Multiple simple complex cysts again noted within the kidneys. The majority of the cysts demonstrate peripheral calcifications. This remains unchanged. Mild bladder wall thickening. This may be due to the enlarged prostate gland. Questionable omental nodularity is likely due to the patient's known ascites. IMPRESSION: 1. Distended and fluid-filled loops of small bowel, stomach, and distal esophagus. No definite transition point. Therefore, this favors an ileus. A partial small bowel obstruction is not excluded but considered less likely. This is similar to the prior CT examination. 2. Trace ascites which has improved. 3. Cardiomegaly with small bilateral pleural effusions and mild interstitial pulmonary edema. 4. Bibasilar densities favor atelectasis. A superimposed pneumonia would be difficult to exclude. 5. Questionable omental nodularity is likely due to the patient's known ascites. 6. Additional findings as described above ACT 112: Negative or not required by law. Electronically signed by: Jef Avery M.D. 10/14/2023 4:46 PM Chest X-Ray 10/14/23 14:52 XR chest 1V portable CLINICAL HISTORY: Sepsis COMPARISON STUDY: Chest radiograph September 26, 2023. FINDINGS: Vascular stent within the left axilla is incidentally noted. Cardiomegaly is unchanged. Interstitial thickening and bilateral opacities have improved since chest radiograph of September 26, 2023. There is underlying emphysema. No new sites of consolidation are present. There is no pneumothorax. Trace right pleural effusion is unchanged. Trace left pleural effusion has improved. IMPRESSION: 1. Persistent multifocal airspace opacities, slightly improved since prior exam. The findings favor multifocal pneumonia. Continued imaging follow up to ensure complete resolution is recommended. 2. Trace bilateral pleural effusions. ACT 112: Negative or not required by law. Electronically signed by: Yunior Arroyo M.D. 10/14/2023 3:26 PM KUB X-Ray 10/15/23 08:42 KUB HISTORY: eval small bowel obstruction, w/ NGT COMPARISON: KUB 10/14/2023. FINDINGS: The tip of the nasogastric tube terminates in the gastric cardia. This could be advanced by approximately 5 cm. This is unchanged in position. The distended stomach has improved. Mild dilated gas-filled loops of small bowel are again noted. These are similar to the prior study. Vascular calcifications are present. No renal calculi. No ureteral calculi. No pneumoperitoneum or pneum atosis. IMPRESSION: 1. The tip of nasogastric tube terminates at the gastric cardia, unchanged. This could be advanced by approximately 5 cm. 2. Gastric distention has improved. 3. Mildly dilated gas-filled loops of small bowel persist. ACT 112: Negative or not required by law. Electronically signed by: Jef Avery M.D. 10/15/2023 10:18 AM PG Care Time/CCT Total # of Minutes Spent Total Time Spent with Patient: Total time spent is greater than 50% in coordination of care (as documented) at patient's floor/unit and/or counseling patient: Coding Level of Care Code 83878 IN/OBS CONSULT LVL 5,80M Diagnoses ESRD (end stage renal disease) N18.6 Ileus K56.7 HTN (hypertension) I10 Hypertension type: unspecified Anemia, unspecified type D64.9 Anemia type: unspecified type (3) HTN (hypertension) Hypertension type: unspecified Qualified Code(s): I10 - Essential (primary) hypertension (4) Anemia Anemia type: unspecified type Qualified Code(s): D64.9 - Anemia, unspecified
--- NOTE | 2023-10-15 11:03 | Dialysis Progress Note ---
Date of Service October 15, 2023 Assessment & Plan (1) ESRD (end stage renal disease): Plan: * Medically stable on HD. AVF functioning well. UF guided by BP and Crit-line monitor. No change to current HD Rx Admission and Anticipated Discharge Date Admission Date: October 14, 2023 Subjective Mr. Redmond was evaluated at the initiation of HD today. No difficulty accessing AVF. No new medical concerns voiced Review of Systems Constitutional: no fever Eyes: no problem reported Ear, Nose, Mouth, Throat: no problem reported Respiratory: no cough and no dyspnea Cardiovascular: no chest pain Gastrointestinal: no abdominal pain, no nausea, no vomiting and no diarrhea/loose stools Integumentary: no rash Physical Exam Constitutional: + ill appearing; not in distress Eyes: PERRL, conjunctivae normal, anicteric sclerae ENMT: external ear and nose normal, oropharynx normal Neck: trachea midline, no thyromegaly Respiratory: normal respiratory effort, lungs clear to auscultation Cardiovascular: RRR, no murmur, no edema Gastrointestinal (Abdomen): Inspection/Auscultation: + abdomen distended and + hypoactive bowel sounds Percussion/Palpation: + tympanic to percussion; abdomen nontender and no guarding Skin: no rashes, warm and dry + turgor decreased Neurologic: awake; not confused Results & Data Vital Signs (Past 12 Hours) Vital Signs Temp Pulse Pulse Resp BP BP Pulse Ox 10/15/23 09:54 37.1 C 89 10/15/23 07:00 36.7 C 92 H 20 162/62 H 92 10/15/23 01:35 10/15/23 01:30 36.6 C 91 H 18 171/67 H 90 10/15/23 00:00 37.1 C 10/15/23 00:00 10/15/23 00:00 92 H 18 119/64 93 Pulse Ox O2 Del Method O2 Del Method O2 Flow Rate 10/15/23 09:54 10/15/23 07:00 Nasal Cannula 3 10/15/23 01:35 Nasal Cannula 2 10/15/23 01:30 Nasal Cannula 3 10/15/23 00:00 10/15/23 00:00 93 Room Air 10/15/23 00:00 Room Air [facility] Procedure Codes (Charges) Renal/Urologic Renal/Urologic: 47766 Hemodialysis, One Evaluation Coding Level of Care Code None Diagnoses ESRD (end stage renal disease) N18.6 CPT Codes Renal/Urologic - Renal/Urologic: 27643 Hemodialysis, One Evaluation ([id number])
[2023-10-15 14:15] LABS: Hematocrit (blood only) 37.2 % (42.0-52.0); Hemoglobin 11.3 g/dl (14.0-18.0)
--- NOTE | 2023-10-15 15:34 | XRay Report ---
XR chest 1V portable HISTORY: NG tube verfication COMPARISON: Chest 10/14/2023. KUB 10/15/2023. FINDINGS: No pneumothorax. No pleural effusions. The heart remains enlarged. A nasogastric tube has b een advanced and now resides within the mid stomach. Trace bilateral pleural effusions and bibasilar linear densities again noted. There is diffuse interstitial/vascular thickening suggestive of pulmona ry edema. IMPRESSION: 1. The nasogastric tube has been advanced and now resides within the mid stomach. 2. Cardiomegaly, mild interstitial pulmonary edema, and trace bilateral pleural effusions again noted . ACT 112: Negative or not required by law. Electronically signed by: Jef Avery M.D. 10/15/2023 3:33 PM
--- NOTE | 2023-10-15 16:33 | Billing Data ---
Date of Service October 15, 2023 Coding Level of Care Code 27731 SUB INP/OBS CARE
[2023-10-15] MEDS ORDERED: FAMOTIDINE 20MG IV PUSH 20 MG/5 ML SYR IV PRN (16:45)
[2023-10-15] MEDS: cefTRIAXone SODIUM 1,000 MG MINI-B 50ML IV SCH (21:27)
--- OUTSIDE RECORDS SUMMARY | 2023-10-15 23:45 | External Medical Summary | Continuity Of Care Document ---
Author Name Unknown Address [address] [place] [address] Organization [facility]) Care Team Providers Care Annual Campaign Manager Name Role Phone Maximo Taylor Primary Care Provider [phone] Problems Code Description Start Date End Date Status J18.8 Other pneumonia, unspecified organism Active A41.9 Sepsis, unspecified organism 09/30/2023/0 000 Active M62.81 Muscle weakness (generalized) 06/22/2023 Active N39.0 Urinary tract infection, site not specified 07/2023 Active J96.11 Chronic respiratory failure with hypoxia 2023 Active N18.4 Chronic kidney disease, stage 4 (severe) 2023 Active I10. Essential (primary) hypertension 06/22/2023 Active K56.699 Other intestinal obs truction unspecified as to partial versus complete obstruction 04/30/2023 Acti ve K92.2 Gastrointestinal hemorrhage, unspecified 2022 Active N18.6 End stage renal disease 04/30/2023 A ctive D64.9 Anemia, unspecified 04/30/2023 Activ e R74.8 Abnormal levels of other serum enzymes 04/30/20 Active R07.9 Chest pain, unspecified 04/30/2023 A ctive J44.9 Chronic obstructive pulmonary disease, unspecified 04/30/2023 Active U07.1 COVID-19 02/25/2023 Active R10.9 Unspecified abdominal pain 02/25/2023 0 Active D49.4 Neoplasm of unspecified behavior of bladder 12/2022 Active F43.10 Post-traumatic stress disorder, unspecified 12/2022 Active R26.9 Unspecified abnormalities of gait and mobility 12/10/2022 Active G93.41 Metabolic encephalopathy 12/10/2022 Active W19.XXXA Unspecified fall, initial encounter 12/10/2022 Active I48.91 Unspecified atrial fibrillation 12/10/2022 Active R18.8 Other ascites 12/10/2022 Active E87.70 [...] E55.9 Vitamin D deficiency, unspecified 12/10/2022 Active I50.9 Heart failure, unspecified 09/30/2023 0 Active J44.1 Chronic obstructive pulmonary disease with (acute) exacerbation 09/30/2023 Active I48.0 Paroxysmal atrial fibrillation 09/30/2023 Active D64.9 Anemia, unspecified 09/30/2023 Activ e G40.909 Epilepsy, unspecifie d, not intractable, without status epilepticus 09/30/2023 Active M25.532 Pain in left wrist 04/20/2023 [...] weight Temperature SpO2 Blood Sugar Pulse Respirations 326 86088 5 165.00 NI 326 56848 0 97.40 Ear 90.00 % 80.00/ min 18.00/min 46010 328 46441 0 67259 330 00929 7 164.00 NI 18929 401 09460 0 164.00 NI 46030 407 15337 6 173.00 NI 00947 411 61243 7 171.00 NI 09228 411 92229 0 67.00 mm[Hg] - Sitting 158.00 mm[Hg] - Sitting 97.90 Ear 93.00 % 81.00/ min 20.00/min 08105 412 37940 4 91947 412 45947 8 30765 412 14234 7 18877 412 86815 2 70.00 mm[Hg] - Sitting 147.00 mm[Hg] - Sitting 98.70 Ear 93.00 % 78.00/ min 20.00/min 79945 413 34361 0 168.00 NI 22690 413 51140 9 63.00 mm[Hg] - Sitting 123.00 mm[Hg] - Sitting 98.70 Ear 82.00/ min 18.00/min 69187 413 72939 5 40089 413 91657 9 68.00 mm[Hg] - Sitting 142.00 mm[Hg] - Sitting 98.70 Ear 94.00 % 77.00/ min 18.00/min 27961 414 72825 8 60770 414 74421 3 51.00 mm[Hg] - Sitting 140.00 mm[Hg] - Sitting 98.00 Ear 92.00 % 67.00/ min 18.00/min 77811 415 22373 3 50.00 mm[Hg] - Sitting 112.00 mm[Hg] - Sitting 98.60 Ear 93.00 % 69.00/ min 18.00/min 25508 417 56325 7 60.00 mm[Hg] - Sitting 147.00 mm[Hg] - Sitting 99.10 Oral 91.00 % 70.00/ min 20.00/min 23795 418 94324 0 68.00 mm[Hg] - Sitting 171.00 mm[Hg] - Sitting 98.40 Ear 92.00 % 72.00/ min 20.00/min 41559 418 49755 7 169.00 NI 80768 418 55710 6 63.00 mm[Hg] - Sitting 146.00 mm[Hg] - Sitting 98.00 Oral 90.00 % 76.00/ min 18.00/min 97297 419 30916 7 172.00 NI 03320 419 14404 6 78.00 mm[Hg] - Sitting 156.00 mm[Hg] - Sitting 98.70 Ear 91.00 % 75.00/ min 18.00/min 85681 420 45468 4 76.00 mm[Hg] - Sitting 138.00 mm[Hg] - Sitting 97.30 Ear 92.00 % 70.00/ min 18.00/min 72138 421 29158 0 52.00 mm[Hg] - Sitting 116.00 mm[Hg] - Sitting 98.00 Oral 90.00 % 76.00/ min 20.00/min 12540 422 81206 0 73.00 mm[Hg] - Sitting 160.00 mm[Hg] - Sitting 98.20 Ear 91.00 % 80.00/ min 20.00/min 93034 423 37779 0 67.00 mm[Hg] - Sitting 145.00 mm[Hg] - Sitting 97.90 Ear 94.00 % 79.00/ min 20.00/min Immunizations Vaccine Date Status COVID-19 09/11/2020 Completed COVID-19 10/08/2020 Completed COVID-19 12/16/2022 Completed COVID-19 04/20/2023 Completed Influenza 03/21/2022 Completed Influenza 04/02/2023 Completed (PCV13)Pneumococcal 04/19/2017 Completed Other 09/16/2023 Completed (PPSV23)Pneumococcal 02/08/2019 Completed Shingles 10/02/2021 Completed Tetanus 04/07/2011 Completed H1N1 08/07/2009 Completed TDaP 09/28/2016 Completed Shingles 2 04/10/2022 Completed
--- OUTSIDE RECORDS SUMMARY | 2023-10-15 23:45 | External Medical Summary | Summary of Care ---
Author Name Unknown Organization [facility] Address [address] [place] [address] Phone [phone] Care Team Providers Care Patient Care Assistant Name Role Phone Maximo Taylor MD Primary Care Provide r Reason for Visit * Reason Onset Date Comments Skilled Visit 10/14/2023 Encounter Details Date Type Department Care Team (Latest Contact Info) Description 10/14/2023 10:30 AM EDT Shelter Visit [facility] [address] [place] [address] Brianna Orozco PA-C [address] [place] [address] Chronic HFrEF (heart failure with reduced ejection fraction) ([facility])*; Ascites due to alcoholic cirrhosis (HCC); Anemia in chronic kidney disease, on chronic dialysis (HCC); ESRD on dialysis (HCC); 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 behavioral disturbance, psychotic disturbance, mood disturbance, or anxiety (HCC); PAF (paroxysmal atrial fibrillation) ([facility]); Nausea and vomiting, unspecified vomiting type Allergies Active Allergy Reactions Criticality Noted Date Comments Lisinopril 04/09/2023 documented as of this encounter (statuses as of 10/14/2023) Medications Medication Sig Dispensed Refills Start Date [...] by mouth at bedtime. 0 01/21/2023 Active [place] Caps 1 MG Oral Capsule Take 1 [...] as of this encounter (statuses as of 10/14/2023) Active Problems Problem Noted Date Diagnosed Date Chronic HFrEF (heart failure with reduced ejection fraction) 10/14/2023 DNR (do not resuscitate) 10/01/2023 Moderate pulmonary hypertension 09/14/2023 Severe mitral regurgitation [...] use 01/21/2023 Personal history of alcoholism 01/21/2023 Coarse tremors 01/21/2023 FX CORONOID PROC ULNA-CL 07/17/2005 DISLOCAT ELBOW NEC-CLOSE 07/17/2005 documented as of this encounter (statuses as of 10/14/2023) Resolved Problems Problem Noted Date Diagnosed Date Resolved Date Full code status 01/21/2023 10/01/2023 documented as of this encounter (statuses as of 10/14/2023) Immunizations Name Administration Dates Next Due Seasonal [...] Progress Notes * Brianna Orozco PA-C - 10/14/2023 8:29 AM EDT Name: Sisi Redmond Date of :1950 TRANSITION EVENT: Type: Skilled visit Date: October 13 Code Status: No Code This note pertains to care provided at [facility]. Please see facility medical record for original note. This note is not to be edited or addended in [employer]. Editing or addending needs to occur in the facilities medical record. Subjective: Sisi Redmond is a 73 year old male. Patient being seen for skilled visit Chief Complaint Patient presents with Skilled Visit HPI: pt readmitted back to SNF for LTC following admission to [facility] for acute on chronic HFrEF and acute respiratory failure and COPD exacerbation. Breathing has been stable. Recently had cardiology followup appt. No changes made. To follow back with cardiology in six months. Pt having some nausea and vomiting over past day controlled with zofran. This usually occurs when pt's ascites increases and requires paracentesis. Pt's weight is up to 175 pounds. He has increased abdominal girth. Vital signs stable. Afebrile. No diarrhea. Pt is scheduled for abdominal paracentesis this morning as outpatient. He insists on going for this. CBC Results: Results for orders placed or performed in visit on 10/04/23 CBC Result Value Ref Range WBC 6.40 4.00 - 10.80 K/uL RBC 3.90 4.50 - 5.25 M/uL HGB 11.2 (L) 14.0 - 16.8 g/dL HCT 36.8 (L) 40.0 - 48.4 % MCV 94.4 82.0 - 99.5 fL MCH 28.7 27.0 - 34.0 pg MCHC 30.4 32.0 - 36.0 g/dL RDW 20.1 11.5 - 15.5 % PLT 236 140 - 400 K/uL MPV 10.2 6.6 - 11.1 fL Hemoglobin Results: Lab Results Component Value Date/Time HGB 11.2 (L) 10/04/2023 05:59 AM HGB 10.3 (L) 09/20/2023 06:09 AM HGB 9.3 (L) 09/06/2023 06:18 AM HGB 8.9 (A) 08/26/2023 12:00 AM HGB 9.2 (A) 08/10/2023 12:00 AM HGB 9.4 (A) 07/06/2023 12:00 AM Basic Panel Results: Results for orders placed or performed in visit on 10/04/23 BASIC METABOLIC PANEL Result Value Ref Range BUN 70 (H) 6 - 20 mg/dL Creatinine 7.6 (H) 0.6 - 1.2 mg/dL Estimated Glomerular Filtration Rate 7 (L) >=60 mL/min Sodium 138 135 - 146 mmol/L Potassium 4.4 3.5 - 5.1 mmol/L Chloride 95 (L) 98 - 107 mmol/L CO2 28 22 - 32 mmol/L Anion Gap 15 7 - 15 mmol/L Glucose 111 70 - 120 mg/dL Calcium 8.7 8.4 - 10.2 mg/dL Creatinine Results: Lab Results Component Value Date/Time CREATININE - [facility] 7.6 (H) 10/04/2023 05:59 AM CREATININE - [facility] 7.6 (H) 08/30/2023 06:30 AM CREATININE - [facility] 5.6 (H) 04/09/2023 09:31 AM Potassium Results: Lab Results Component Value Date/Time POTASSIUM - [facility] 4.4 10/04/2023 05:59 AM POTASSIUM - [facility] 4.3 08/30/2023 06:30 AM POTASSIUM - [facility] 4.7 04/09/2023 09:31 AM Sodium Results: Lab Results Component Value Date/Time SODIUM - [facility] 138 10/04/2023 05:59 AM SODIUM - [facility] 131 (L) 08/30/2023 06:30 AM SODIUM - [facility] 137 04/09/2023 09:31 AM TSH Results: Lab Results Component Value Date/Time TSH - [facility] 2.61 09/22/2023 05:55 AM Lipid Panel Results: Results for orders placed or performed in visit on 09/22/23 LIPID PANEL WITHOUT DIRECT LDL Result Value Ref Range Triglycerides 42 <=174 mg/dL Cholesterol 109 <200 mg/dL HDL Cholesterol 49 >39 mg/dL Non-HDL Cholesterol 60 <=159 mg/dL LDL Cholesterol 52 <=129 mg/dL No results found for: "[id number]" No results found for: "[id number]" No results found for: "[id number]" 25-Hydroxy Vitamin D (ng/mL) Date Value 09/22/2023 58 Vitamin D Level Interpretation deficient: <20 ng/ml insufficient: 20-30 ng/ml normal: 31-100 ng/ml Patient Active Problem List Diagnosis Code FX CORONOID PROC ULNA-CL S52.043A DISLOCAT ELBOW NEC-CLOSE S53.196A ESRD on dialysis ([facility]) N18.6, Z99.2 HTN, goal below 130/80 I10 Iron deficiency anemia D50.9 Slow transit constipation K59.01 PTSD (post-traumatic stress disorder) F43.10 COPD, moderate ([facility]) J44.9 Vitamin B1 deficiency E51.9 Vitamin D deficiency E55.9 Dry skin dermatitis L85.3 Secondary hyperparathyroidism of renal origin ([facility]) N25.81 Polycystic renal disease Q61.3 PAF (paroxysmal atrial fibrillation) ([facility]) I48.0 Primary insomnia F51.01 Pruritic condition L29.9 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 behavioral disturbance, psychotic disturbance, mood disturbance, or anxiety ([facility]) G30.1, F02.A0 BPH without obstruction/lower urinary tract symptoms N40.0 Benign neoplasm of skin of nose D23.39 Diverticulosis of large intestine without hemorrhage K57.30 Chronic gout without tophus M1A.9XX0 History of intracranial hemorrhage Z86.79 History of nontraumatic rupture of cerebral aneurysm Z86.79 Polyp of ascending colon K63.5 History of tobacco use Z87.891 Personal history of alcoholism (HCC) F10.21 Coarse tremors G25.2 Protein-calorie malnutrition (HCC) E46 Anemia in chronic kidney disease, on chronic dialysis (HCC) N18.6, D63.1, Z99.2 Urothelial lesion N39.8 Ascites due to alcoholic cirrhosis (HCC) K70.31 Renal artery stenosis (HCC) I70.1 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 fistula (HCC) I77.0 History of abdominal paracentesis Z98.890 Hypoxemia R09.02 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 Past Surgical History: Procedure Laterality Date ADULT ECHOCARDIOGRAM 09/10/2023 moderate LVH wtih LVEF 65%, mild , moderate AI, severe MR, severe TR, moderate pulmonary HTN. [facility] BRAIN ANEURYSM REPR, SIMPLE 2012 MRI compatible brain aneurysm clip [facility] [place] COLONOSCOPY CYSTOSCOPY/BIOPSY 03/29/2023 cystoscopy, fulgaration of bladder lesion. Dr Reyna, [facility] INFORMATION removal of benign neoplasm nose [place] COLSC FLX W/RMVL OF TUMOR POLYP LESION SNARE TQ four sessile polyps ascending colon and cecum. [place] CREAT AV FISTULA,AUTOGENOUS GRAFT Left 03/23/2023 Dr. Eriberto Augustine TOOTH ROOT REMOVAL complete dental extraction UPPER GI ENDOSCOPY 05/20/2023 Barretts esophagus, duodenal polyp. [place] Family History Problem Relation Age of Onset Cancer Mother Other (accidental) Father Family Status Relation Status Mo Fa Social History Socioeconomic History Marital status: Spouse name: Not on file Number of children: Not on file Years of education: Not on file Highest education level: Not on file Occupational History Not on file Tobacco Use Smoking status: Former Current packs/day: 0.00 Average packs/day: 1 pack/day for 55.0 years (55.0 ttl pk-yrs) Types: Cigarettes Start date: 1966 Quit date: 2021 Years since quittin.3 Smokeless tobacco: Never Vaping Use Vaping Use: [...] list as this cannot be edited in [employer]. Review of Systems: obtained from pt and staff Constitutional ROS: + change in weight, No [...] No dysphagia Skin/Integumentary ROS: No rash and No itching Neurologic ROS: No headaches and No seizures Psychiatric ROS: No depression, No anxiety and No psychosis + dementia Sleep: No sleep disorders OBJECTIVE: PHYSICALEXAM: I reviewed the most recent facilities vitals. General: alert, no distress, chronically ill looking Eye Exam: Conjunctiva are pink and non-injected, [...] normal bowel sounds and no masses or organomegaly, ascites notedincreased Extremities: 1 +edema, no clubbing, no cyanosis Neuro Exam: alert with fluent speech, no focal motor/sensory deficits Skin: skin color, texture, turgor are normal, no rashes or significant lesions Musculoskeletal: moves all extremities with good strength ASSESSMENT: Chronic HFrEF (heart failure with reduced ejection fraction) (HCC) (Primary) Stable currently no active CHF Continue lasix 40mg daily Ascites due to alcoholic cirrhosis (HCC) Requires periodic paracentesis. Scheduled for today Will keep appt Anemia in chronic kidney disease, on chronic dialysis ([facility]) Stable H/H currently Continue to monitor ESRD on dialysis ([facility]) Continue with dialysis three days weekly 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 behavioral disturbance, psychotic disturbance, mood disturbance, or anxiety ([facility]) Stable mood and mentation Continue Trazodone 50mg HS PAF (paroxysmal atrial fibrillation) ([facility]) Stable rate Continue Amiodarone 200mg daily Nausea and vomiting, unspecified vomiting type Stable with zofran prn Will follow PLAN: Reviewed CBC, BMP, Lytes, lipid panel and Continue present medication(s):as ordered. Group Home Home Treatment Given: as above Electronically signed by: Brianna Orozco PA-C Over 45 minutes were spent in this visit more than half the time was spent counselling or coordinating care. documented in this encounter Plan of Treatment Upcoming Encounters Date Type Department Care Team (Late st Contact Info) Description 02/14/2024 8:00 AM EDT Office Visit Hepatology, [facility] [address] [place] [address] Latoya Selby DO [address] [place] [address] Health Maintenance Due Date Last Done Comments Hanna's Esophagus Surveilance 1950 Depression Screening 1962 O2 ASSESSMENT COMPLETED IN PAST YEAR FOR COPD 1968 Cologuard 1995 Fecal Occult Blood Test 1995 Sigmoidoscopy 1995 Lung Cancer Screening 2000 AAA Screening 2015 Hepatitis B (2 of 2 - CpG risk 2-dose series) 09/18/2021 08/21/2021 *COPD SEVERITY VERIFIED BY PFT 01/23/2023 *CXR OR CT FOR COPD EVER 01/23/2023 Influenza Vaccine (FLU shot) (Season Ended) 2024 04/02/2023, 03/30/2018, 04/19/2017, Additional history exists DTaP,Tdap,and Td Vaccines (2 - Td or Tdap) 09/28/2026 09/28/2016 Colonoscopy 05/20/2033 05/20/2023 Colorectal Cancer Screening 05/20/2033 Pneumococcal Vaccine: 65+ Years Completed 02/08/2019, 04/19/2017 Zoster Vaccines Completed 04/10/2022, 10/02/2021 Alpha-1 Antitrypsin Completed 04/09/2023 COVID-19 Vaccine Completed 04/20/2023, , 09/19/2020 GARDASIL-HPV IMMUNIZATION SERIES Aged Out No longer eligible based on patient's age to complete this topic MENINGOCOCCAL (MENACTRA/MENVEO) Aged Out No longer eligible based on patient's age to complete this topic documented as of this encounter Medical Devices Not on filedocumented as of this encounter Visit Diagnoses Diagnosis Chronic HFrEF (heart failure with reduced ejection fraction) (HCC)- Primary Ascites due to alcoholic cirrhosis (HCC) Anemia in chronic kidney disease, on chronic dialysis (HCC) ESRD on dialysis (HCC) End stage renal disease 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 behavioral disturbance, psychotic disturbance, mood disturbance, or anxiety (HCC) PAF (paroxysmal atrial fibrillation) (HCC) Atrial fibrillation Nausea and vomiting, unspecified vomiting type documented in this encounter Care Teams Patient Care Assistant Relationship Specialty Start Date End Date Maximo Taylor MD [address] [place] [address] [place] [address] PCP - General Family Medicine 05/04/23 documented as of this encounter
--- OUTSIDE RECORDS SUMMARY | 2023-10-15 23:45 | External Medical Summary | Summary of Care ---
Author Name Unknown Organization [facility] Address [address] [place] [address] Phone [phone] Care Team Providers Care Etcher Apprentice Name Role Phone Maximo Taylor MD Primary Care Provide r Reason for Visit * Reason Onset Date Comments Skilled Visit 10/14/2023 Encounter Details Date Type Department Care Team (Latest Contact Info) Description 10/14/2023 10:30 AM EDT Fdc Visit [facility] [address] [place] [address] Brianna Orozco PA-C [address] [place] [address] Chronic HFrEF (heart failure with reduced ejection fraction) ([facility])*; Ascites due to alcoholic cirrhosis (HCC); Anemia in chronic kidney disease, on chronic dialysis (HCC); ESRD on dialysis (HCC); 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 behavioral disturbance, psychotic disturbance, mood disturbance, or anxiety (HCC); PAF (paroxysmal atrial fibrillation) ([facility]); Nausea and vomiting, unspecified vomiting type Allergies [...] by mouth at bedtime. 0 01/21/2023 Active [place] Caps 1 MG Oral Capsule Take 1 [...] This note pertains to care provided at [facility]. Please see facility medical record for original note. This note is not to be edited or addended in [employer]. Editing or addending needs to occur in the facilities medical record. Subjective: Sisi Redmond is a 73 year old male. Patient being seen for skilled visit Chief Complaint Patient presents with Skilled Visit HPI: pt readmitted back to SNF for LTC following admission to [facility] for acute on chronic HFrEF and [...] 52 <=129 mg/dL No results found for: "[id number]" No results found for: "[id number]" No results found for: "[id number]" 25-Hydroxy Vitamin D (ng/mL) Date Value 09/22/2023 58 Vitamin D Level Interpretation deficient: <20 ng/ml insufficient: 20-30 ng/ml normal: 31-100 ng/ml Patient Active Problem List Diagnosis Code FX CORONOID PROC ULNA-CL S52.043A DISLOCAT ELBOW NEC-CLOSE S53.196A ESRD on dialysis ([facility]) N18.6, Z99.2 HTN, goal below 130/80 I10 Iron deficiency anemia D50.9 Slow transit constipation K59.01 PTSD (post-traumatic stress disorder) F43.10 COPD, moderate ([facility]) J44.9 Vitamin B1 deficiency E51.9 Vitamin D deficiency E55.9 Dry skin dermatitis L85.3 Secondary hyperparathyroidism of renal origin ([facility]) N25.81 Polycystic renal disease Q61.3 PAF (paroxysmal atrial fibrillation) ([facility]) I48.0 Primary insomnia F51.01 Pruritic condition L29.9 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 behavioral disturbance, psychotic disturbance, mood disturbance, or anxiety ([facility]) G30.1, F02.A0 BPH without obstruction/lower urinary tract [...] severe MR, severe TR, moderate pulmonary HTN. [facility] BRAIN ANEURYSM REPR, SIMPLE 2012 MRI compatible brain aneurysm clip [facility] [place] COLONOSCOPY CYSTOSCOPY/BIOPSY 03/29/2023 cystoscopy, fulgaration of bladder lesion. Dr Reyna, [facility] INFORMATION removal of benign neoplasm nose [place] COLSC FLX W/RMVL OF TUMOR POLYP LESION SNARE TQ four sessile polyps ascending colon and cecum. [place] CREAT AV FISTULA,AUTOGENOUS GRAFT Left 03/23/2023 Dr. Eriberto Augustine TOOTH ROOT REMOVAL complete dental extraction UPPER GI ENDOSCOPY 05/20/2023 Barretts esophagus, duodenal polyp. [place] Family History Problem Relation Age of Onset [...] list as this cannot be edited in [employer]. Review of Systems: obtained from pt and [...] in chronic kidney disease, on chronic dialysis ([facility]) Stable H/H currently Continue to monitor ESRD on dialysis ([facility]) Continue with dialysis three days weekly 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 behavioral disturbance, psychotic disturbance, mood disturbance, or anxiety ([facility]) Stable mood and mentation Continue Trazodone 50mg HS PAF (paroxysmal atrial fibrillation) ([facility]) Stable rate Continue Amiodarone 200mg daily Nausea and vomiting, unspecified vomiting type Stable with zofran prn Will follow PLAN: Reviewed CBC, BMP, Lytes, lipid panel and Continue present medication(s):as ordered. Alf Home Treatment Given: as above Electronically signed by: Brianna Orozco PA-C Over 45 minutes were spent in this visit more than half the time was spent counselling or coordinating care. documented in this encounter Plan of Treatment Upcoming Encounters Date Type Department Care Team (Late st Contact Info) Description 02/14/2024 8:00 AM EDT Office Visit Hepatology, [facility] [address] [place] [address] Latoya Selby DO [address] [place] [address] Health Maintenance Due Date Last Done Comments [...] type documented in this encounter Care Teams Etcher Apprentice Relationship Specialty Start Date End Date Maximo Taylor MD [address] [place] [address] [place] [address] PCP - General Family Medicine 05/04/23 documented as of this encounter
--- OUTSIDE RECORDS SUMMARY | 2023-10-15 23:45 | External Medical Summary | Summary of Care ---
Author Name Unknown Organization [facility] Address [address] [facility] [place] [address] Phone [phone] Care Team Providers Care Signs And Displays Salesperson Name Role Phone Maximo Taylor MD Primary Care Provide r Reason for Visit * Reason Onset Date Comments Skilled Visit 10/14/2023 Encounter Details Date Type Department Care Team (Latest Contact Info) Description 10/14/2023 10:30 AM EDT Senior Living Visit [facility] [address] [place] [address] Brianna Orozco PA-C [address] [place] [address] Chronic HFrEF (heart failure with reduced ejection fraction) ([facility])*; Ascites due to alcoholic cirrhosis (HCC); Anemia in chronic kidney disease, on chronic dialysis (HCC); ESRD on dialysis (HCC); 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 behavioral disturbance, psychotic disturbance, mood disturbance, or anxiety (HCC); PAF (paroxysmal atrial fibrillation) ([facility]); Nausea and vomiting, unspecified vomiting type Allergies [...] by mouth at bedtime. 0 01/21/2023 Active [place] Caps 1 MG Oral Capsule Take 1 [...] This note pertains to care provided at [facility]. Please see facility medical record for original note. This note is not to be edited or addended in [employer]. Editing or addending needs to occur in the facilities medical record. Subjective: Sisi Redmond is a 73 year old male. Patient being seen for skilled visit Chief Complaint Patient presents with Skilled Visit HPI: pt readmitted back to SNF for LTC following admission to [facility] for acute on chronic HFrEF and acute [...] 52 <=129 mg/dL No results found for: "[id number]" No results found for: "BDZP06DJN6" No results found for: "[id number]" 25-Hydroxy Vitamin D (ng/mL) Date Value 09/22/2023 58 Vitamin D Level Interpretation deficient: <20 ng/ml insufficient: 20-30 ng/ml normal: 31-100 ng/ml Patient Active Problem List Diagnosis Code FX CORONOID PROC ULNA-CL S52.043A DISLOCAT ELBOW NEC-CLOSE S53.196A ESRD on dialysis ([facility]) N18.6, Z99.2 HTN, goal below 130/80 I10 [...] severe MR, severe TR, moderate pulmonary HTN. [facility] BRAIN ANEURYSM REPR, SIMPLE 2012 MRI compatible brain aneurysm clip [facility] COLONOSCOPY CYSTOSCOPY/BIOPSY 03/29/2023 cystoscopy, fulgaration of bladder lesion. Dr Reyna, [facility] INFORMATION removal of benign neoplasm nose MS COLSC FLX W/RMVL OF TUMOR POLYP LESION SNARE TQ four sessile polyps ascending colon and cecum. Nallely MS CREAT AV FISTULA,AUTOGENOUS GRAFT Left 03/23/2023 Dr. Eriberto Augustine TOOTH ROOT REMOVAL complete dental extraction UPPER GI ENDOSCOPY 05/20/2023 Barretts esophagus, duodenal polyp. [place] Family History Problem Relation Age of Onset [...] list as this cannot be edited in [employer]. Review of Systems: obtained from pt and [...] in chronic kidney disease, on chronic dialysis ([facility]) Stable H/H currently Continue to monitor ESRD on dialysis ([facility]) Continue with dialysis three days weekly 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 behavioral disturbance, psychotic disturbance, mood disturbance, or anxiety ([facility]) Stable mood and mentation Continue Trazodone 50mg HS PAF (paroxysmal atrial fibrillation) ([facility]) Stable rate Continue Amiodarone 200mg daily Nausea and vomiting, unspecified vomiting type Stable with zofran prn Will follow PLAN: Reviewed CBC, BMP, Lytes, lipid panel and Continue present medication(s):as ordered. Assisted Home Treatment Given: as above Electronically signed by: Brianna Orozco PA-C Over 45 minutes were spent in this visit more than half the time was spent counselling or coordinating care. documented in this encounter Plan of Treatment Upcoming Encounters Date Type Department Care Team (Late st Contact Info) Description 02/14/2024 8:00 AM EDT Office Visit Hepatology, [facility] [address] [place] [address] Latoya Selby DO [address] [place] [address] Health Maintenance Due Date Last Done Comments [...] type documented in this encounter Care Teams Signs And Displays Salesperson Relationship Specialty Start Date End Date Maximo Taylor MD [address] [place] [address] [place] [address] PCP - General Family Medicine 05/04/23 documented as of this encounter
--- OUTSIDE RECORDS SUMMARY | 2023-10-15 23:45 | External Medical Summary | Continuity Of Care Document ---
Author Name Unknown Address [address] [place] [address] Organization [facility]) Care Team Providers Care Fruit Dryer Name Role Phone Maximo Taylor Primary Care Provider [phone] Problems Code Description Start Date End Date [...] Abnormal levels of other serum enzymes 04/30/20 23 Active R07.9 Chest pain, unspecified 04/30/2023 A [...] weight Temperature SpO2 Blood Sugar Pulse Respirations 323 88056 0 72.00 mm[Hg] - Sitting 167.00 mm[Hg] - Sitting 97.30 Oral 92.00 % 69.00/ min 86221 326 48251 5 [place]00 [place] [address] 326 13979 0 97.40 Ear 90.00 % 80.00/ min 18.00/min 10040 328 56502 0 59935 330 44043 7 164.00 NI 65594 401 80757 0 164.00 NI 34503 407 76442 6 173.00 NI 98742 411 53594 7 171.00 NI 411 03950 0 67.00 mm[Hg] - Sitting 158.00 mm[Hg] - Sitting 97.90 Ear 93.00 % 81.00/ min 20.00/min 62049 412 63857 4 27399 412 48578 8 06937 412 99440 7 83468 412 24860 2 70.00 mm[Hg] - Sitting 147.00 mm[Hg] - Sitting 98.70 Ear 93.00 % 78.00/ min 20.00/min 61976 413 48054 0 168.00 NI 72896 413 78721 9 63.00 mm[Hg] - Sitting 123.00 mm[Hg] - Sitting 98.70 Ear 82.00/ min 18.00/min 51483 413 93588 5 67678 413 19272 9 68.00 mm[Hg] - Sitting 142.00 mm[Hg] - Sitting 98.70 Ear 94.00 % 77.00/ min 18.00/min 36334 414 30570 8 60283 414 91515 3 51.00 mm[Hg] - Sitting 140.00 mm[Hg] - Sitting 98.00 Ear 92.00 % 67.00/ min 18.00/min 76678 415 83697 3 50.00 mm[Hg] - Sitting 112.00 mm[Hg] - Sitting 98.60 Ear 93.00 % 69.00/ min 18.00/min 21839 417 57315 7 60.00 mm[Hg] - Sitting 147.00 mm[Hg] - Sitting 99.10 Oral 91.00 % 70.00/ min 20.00/min 18903 418 06258 0 68.00 mm[Hg] - Sitting 171.00 mm[Hg] - Sitting 98.40 Ear 92.00 % 72.00/ min 20.00/min 97261 418 18850 7 169.00 NI 53473 418 48894 6 63.00 mm[Hg] - Sitting 146.00 mm[Hg] - Sitting 98.00 Oral 90.00 % 76.00/ min 18.00/min 80924 419 34947 7 172.00 NI 95747 419 59261 6 78.00 mm[Hg] - Sitting 156.00 mm[Hg] - Sitting 98.70 Ear 91.00 % 75.00/ min 18.00/min 58097 420 08821 4 76.00 mm[Hg] - Sitting 138.00 mm[Hg] - Sitting 97.30 Ear 92.00 % 70.00/ min 18.00/min 07687 421 02996 0 52.00 mm[Hg] - Sitting 116.00 mm[Hg] - Sitting 98.00 Oral 90.00 % 76.00/ min 20.00/min Immunizations Vaccine Date Status COVID-19 09/11/2020 Completed COVID-19 10/08/2020 Completed COVID-19 12/16/2022 Completed COVID-19 04/20/2023 Completed Influenza 03/21/2022 Completed Influenza 04/02/2023 Completed (PCV13)Pneumococcal 04/19/2017 Completed Other 09/16/2023 Completed (PPSV23)Pneumococcal 02/08/2019 Completed Shingles 10/02/2021 Completed Tetanus 04/07/2011 Completed H1N1 08/07/2009 Completed TDaP 09/28/2016 Completed Shingles 2 04/10/2022 Completed
--- OUTSIDE RECORDS SUMMARY | 2023-10-15 23:45 | External Medical Summary | Continuity Of Care Document ---
Author Name Unknown Address [address] [place] [address] Organization [facility]) Care Team Providers Care Placement Specialist Name Role Phone Maximo Taylor Primary Care Provider [phone] Problems Code Description Start Date End Date [...] Temperature SpO2 Blood Sugar Pulse Respirations 323 14954 0 72.00 mm[Hg] - Sitting 167.00 mm[Hg] - Sitting 97.30 Oral 92.00 % 69.00/ min 65494 326 49619 5 [place]00 [place] [address] 326 09372 0 97.40 Ear 90.00 % 80.00/ min 18.00/min 01258 328 21585 0 88908 330 29788 7 164.00 NI 72199 401 34319 0 164.00 NI 28264 407 45291 6 173.00 NI 03412 411 50009 7 171.00 NI 411 94400 0 67.00 mm[Hg] - Sitting 158.00 mm[Hg] - Sitting 97.90 Ear 93.00 % 81.00/ min 20.00/min 85065 412 99788 4 79065 412 43247 8 24140 412 37671 7 66431 412 12546 2 70.00 mm[Hg] - Sitting 147.00 mm[Hg] - Sitting 98.70 Ear 93.00 % 78.00/ min 20.00/min 05101 413 92666 0 168.00 NI 83627 413 46920 9 63.00 mm[Hg] - Sitting 123.00 mm[Hg] - Sitting 98.70 Ear 82.00/ min 18.00/min 46652 413 56091 5 36579 413 27441 9 68.00 mm[Hg] - Sitting 142.00 mm[Hg] - Sitting 98.70 Ear 94.00 % 77.00/ min 18.00/min 64620 414 55920 8 99048 414 30741 3 51.00 mm[Hg] - Sitting 140.00 mm[Hg] - Sitting 98.00 Ear 92.00 % 67.00/ min 18.00/min 11736 415 62749 3 50.00 mm[Hg] - Sitting 112.00 mm[Hg] - Sitting 98.60 Ear 93.00 % 69.00/ min 18.00/min 03163 417 17945 7 60.00 mm[Hg] - Sitting 147.00 mm[Hg] - Sitting 99.10 Oral 91.00 % 70.00/ min 20.00/min 77285 418 39949 0 68.00 mm[Hg] - Sitting 171.00 mm[Hg] - Sitting 98.40 Ear 92.00 % 72.00/ min 20.00/min 45288 418 90934 7 169.00 NI 71498 418 14958 6 63.00 mm[Hg] - Sitting 146.00 mm[Hg] - Sitting 98.00 Oral 90.00 % 76.00/ min 18.00/min 45911 419 25673 7 172.00 NI 22330 419 96202 6 78.00 mm[Hg] - Sitting 156.00 mm[Hg] - Sitting 98.70 Ear 91.00 % 75.00/ min 18.00/min 60819 420 52923 4 76.00 mm[Hg] - Sitting 138.00 mm[Hg] - Sitting 97.30 Ear 92.00 % 70.00/ min 18.00/min 14928 421 31119 0 52.00 mm[Hg] - Sitting 116.00 mm[Hg] [...]
--- OUTSIDE RECORDS SUMMARY | 2023-10-15 23:45 | External Medical Summary | Continuity Of Care Document ---
Author Name Unknown Address [address] [place] [address] Organization [facility]) Care Team Providers Care Metallurgical Engineering Technician Name Role Phone Maximo Taylor Primary Care Provider [phone] Problems Code Description Start Date End Date [...] Temperature SpO2 Blood Sugar Pulse Respirations 323 98872 0 72.00 mm[Hg] - Sitting 167.00 mm[Hg] - Sitting 97.30 Oral 92.00 % 69.00/ min 17753 326 14301 5 165[place]00 [place] 41743 326 00333 0 97.40 Ear 90.00 % 80.00/ min 18.00/min 40037 328 72897 0 98012 330 46951 7 164.00 NI 53925 401 79326 0 164.00 NI 68403 407 23109 6 173.00 NI 76343 411 79084 7 171.00 NI 411 43491 0 67.00 mm[Hg] - Sitting 158.00 mm[Hg] - Sitting 97.90 Ear 93.00 % 81.00/ min 20.00/min 82607 412 29328 4 54588 412 90550 8 20348 412 24556 7 07008 412 91072 2 70.00 mm[Hg] - Sitting 147.00 mm[Hg] - Sitting 98.70 Ear 93.00 % 78.00/ min 20.00/min 12541 413 44643 0 168.00 NI 72500 413 81290 9 63.00 mm[Hg] - Sitting 123.00 mm[Hg] - Sitting 98.70 Ear 82.00/ min 18.00/min 94614 413 31052 5 62565 413 11055 9 68.00 mm[Hg] - Sitting 142.00 mm[Hg] - Sitting 98.70 Ear 94.00 % 77.00/ min 18.00/min 85714 414 64782 8 47894 414 72988 3 51.00 mm[Hg] - Sitting 140.00 mm[Hg] - Sitting 98.00 Ear 92.00 % 67.00/ min 18.00/min 56520 415 73272 3 50.00 mm[Hg] - Sitting 112.00 mm[Hg] - Sitting 98.60 Ear 93.00 % 69.00/ min 18.00/min 19975 417 96877 7 60.00 mm[Hg] - Sitting 147.00 mm[Hg] - Sitting 99.10 Oral 91.00 % 70.00/ min 20.00/min 61292 418 68568 0 68.00 mm[Hg] - Sitting 171.00 mm[Hg] - Sitting 98.40 Ear 92.00 % 72.00/ min 20.00/min 38377 418 70777 7 169.00 NI 66958 418 54082 6 63.00 mm[Hg] - Sitting 146.00 mm[Hg] - Sitting 98.00 Oral 90.00 % 76.00/ min 18.00/min 28842 419 54616 7 172.00 NI 06295 419 64025 6 78.00 mm[Hg] - Sitting 156.00 mm[Hg] - Sitting 98.70 Ear 91.00 % 75.00/ min 18.00/min 28631 420 95667 4 76.00 mm[Hg] - Sitting 138.00 mm[Hg] - Sitting 97.30 Ear 92.00 % 70.00/ min 18.00/min 96010 421 37417 0 52.00 mm[Hg] - Sitting 116.00 mm[Hg] [...]
--- OUTSIDE RECORDS SUMMARY | 2023-10-15 23:45 | External Medical Summary | Continuity Of Care Document ---
Author Name Unknown Address [address] [place] [address] Organization [facility]) Care Team Providers Care Spool Sorter Name Role Phone Maximo Taylor Primary Care Provider [phone] Problems Code Description Start Date End Date [...] Temperature SpO2 Blood Sugar Pulse Respirations 323 67732 0 72.00 mm[Hg] - Sitting 167.00 mm[Hg] - Sitting 97.30 Oral 92.00 % 69.00/ min 66848 326 10893 5 165.00 NI 11061 326 32498 0 97.40 Ear 90.00 % 80.00/ min 18.00/min 20817 328 28522 0 15546 330 45777 7 164.00 NI 64473 401 93431 0 164.00 NI 10851 407 84709 6 173.00 NI 17731 411 96940 7 171.00 NI 411 77143 0 67.00 mm[Hg] - Sitting 158.00 mm[Hg] - Sitting 97.90 Ear 93.00 % 81.00/ min 20.00/min 11340 412 90994 4 94118 412 30586 8 38818 412 82565 7 82145 412 59397 2 70.00 mm[Hg] - Sitting 147.00 mm[Hg] - Sitting 98.70 Ear 93.00 % 78.00/ min 20.00/min 01114 413 24742 0 168.00 NI 28702 413 05763 9 63.00 mm[Hg] - Sitting 123.00 mm[Hg] - Sitting 98.70 Ear 82.00/ min 18.00/min 89632 413 94035 5 09430 413 17160 9 68.00 mm[Hg] - Sitting 142.00 mm[Hg] - Sitting 98.70 Ear 94.00 % 77.00/ min 18.00/min 20197 414 35899 8 72938 414 67916 3 51.00 mm[Hg] - Sitting 140.00 mm[Hg] - Sitting 98.00 Ear 92.00 % 67.00/ min 18.00/min 07848 415 76075 3 50.00 mm[Hg] - Sitting 112.00 mm[Hg] - Sitting 98.60 Ear 93.00 % 69.00/ min 18.00/min 98076 417 91397 7 60.00 mm[Hg] - Sitting 147.00 mm[Hg] - Sitting 99.10 Oral 91.00 % 70.00/ min 20.00/min 85292 418 02833 0 68.00 mm[Hg] - Sitting 171.00 mm[Hg] - Sitting 98.40 Ear 92.00 % 72.00/ min 20.00/min 12150 418 33873 7 169.00 NI 85922 418 62481 6 63.00 mm[Hg] - Sitting 146.00 mm[Hg] - Sitting 98.00 Oral 90.00 % 76.00/ min 18.00/min 20582 419 30623 7 172.00 NI 94429 419 39919 6 78.00 mm[Hg] - Sitting 156.00 mm[Hg] - Sitting 98.70 Ear 91.00 % 75.00/ min 18.00/min 50964 420 25103 4 76.00 mm[Hg] - Sitting 138.00 mm[Hg] - Sitting 97.30 Ear 92.00 % 70.00/ min 18.00/min 29350 421 09539 0 52.00 mm[Hg] - Sitting 116.00 mm[Hg] [...]
--- OUTSIDE RECORDS SUMMARY | 2023-10-15 23:46 | External Medical Summary | Continuity Of Care Document ---
Author Name Unknown Address [address] [place] [address] Organization [facility]) Care Team Providers Care Building Serviceman Name Role Phone Maximo Taylor Primary Care Provider [phone] Problems Code Description Start Date End Date [...] Temperature SpO2 Blood Sugar Pulse Respirations 323 13485 0 72.00 mm[Hg] - Sitting 167.00 mm[Hg] - Sitting 97.30 Oral 92.00 % 69.00/ min 21388 326 35806 5 165.00 [place] 78157 326 38633 0 97.40 Ear 90.00 % 80.00/ min 18.00/min 83052 328 06746 0 84839 330 47285 7 164.00 NI 23015 401 26732 0 164.00 NI 93430 407 03098 6 173.00 NI 01829 411 60776 7 171.00 NI 411 11890 0 67.00 mm[Hg] - Sitting 158.00 mm[Hg] - Sitting 97.90 Ear 93.00 % 81.00/ min 20.00/min 03153 412 78972 4 02947 412 91425 8 15329 412 37427 7 64862 412 90915 2 70.00 mm[Hg] - Sitting 147.00 mm[Hg] - Sitting 98.70 Ear 93.00 % 78.00/ min 20.00/min 29271 413 65486 0 168.00 NI 90708 413 09441 9 63.00 mm[Hg] - Sitting 123.00 mm[Hg] - Sitting 98.70 Ear 82.00/ min 18.00/min 12625 413 54464 5 04314 413 06500 9 68.00 mm[Hg] - Sitting 142.00 mm[Hg] - Sitting 98.70 Ear 94.00 % 77.00/ min 18.00/min 93746 414 73679 8 30780 414 66254 3 51.00 mm[Hg] - Sitting 140.00 mm[Hg] - Sitting 98.00 Ear 92.00 % 67.00/ min 18.00/min 48407 415 34908 3 50.00 mm[Hg] - Sitting 112.00 mm[Hg] - Sitting 98.60 Ear 93.00 % 69.00/ min 18.00/min 51002 417 67064 7 60.00 mm[Hg] - Sitting 147.00 mm[Hg] - Sitting 99.10 Oral 91.00 % 70.00/ min 20.00/min 28738 418 71094 0 68.00 mm[Hg] - Sitting 171.00 mm[Hg] - Sitting 98.40 Ear 92.00 % 72.00/ min 20.00/min 19497 418 60162 7 169.00 NI 49068 418 40861 6 63.00 mm[Hg] - Sitting 146.00 mm[Hg] - Sitting 98.00 Oral 90.00 % 76.00/ min 18.00/min 11448 419 88803 7 172.00 NI 37355 419 01692 6 78.00 mm[Hg] - Sitting 156.00 mm[Hg] - Sitting 98.70 Ear 91.00 % 75.00/ min 18.00/min 94551 420 60666 4 76.00 mm[Hg] - Sitting 138.00 mm[Hg] - Sitting 97.30 Ear 92.00 % 70.00/ min 18.00/min 19409 421 36485 0 52.00 mm[Hg] - Sitting 116.00 mm[Hg] [...]
[2023-10-15 23:53] LABS: Appearance Urine Cloudy (Clear); Bacteria Urine Automated None Seen (None Seen); Bilirubin Urine Negative (Negative); Blood Urine Trace (Negative); Cast Urine Automated 0-2 /lpf (0-2); Color Urine Yellow; Epithelial Cell Urine Auto 0-2 /hpf (0-2); Glucose Urine UA Negative (Negative); Ketones Urine Negative (Negative); Leukocyte Esterase Urine 3+ (Negative); Nitrite Urine Negative (Negative); Protein Urine 2+ (Negative); RBC Urine Automated 0-2 /hpf (0-2); Specific Gravity Urine 1.013 (1.000-1.030); Urobilinogen Urine Negative (Negative)
[2023-10-16 07:15] LABS: Basophils # (auto) 0.05 K/uL (0.00-0.20); Basophils % (auto) 0.8 %; Eosinophils # (auto) 0.19 K/uL (0.00-0.50); Hematocrit (blood only) 39.5 % (42.0-52.0); Hemoglobin 11.6 g/dl (14.0-18.0); Immature Granulocytes # (auto) 0.02 K/uL (0.01-0.20); Immature Granulocytes % (auto) 0.3 %; Lymphocytes # (auto) 0.87 K/uL (1.20-3.40); Lymphocytes % (auto) 13.9 %; Mean Corpuscular Hemoglobin 27.8 pg (25.0-34.0); Mean Corpuscular Hgb Conc 29.4 g/dL (32.0-36.0); Mean Corpuscular Volume 94.5 fL (80.0-100.0); Mean Platelet Volume 10.4 fL (9.4-12.4); Monocytes # (auto) 1.21 K/uL (0.11-0.59); Monocytes % (auto) 19.4 %; Neutrophils # (auto) 3.91 K/uL (1.40-6.50); Neutrophils % (auto) 62.6 %; Platelet Count 161 K/uL (130-400); RDW Coefficient of Variation 18.7 % (11.5-14.5); RDW Standard Deviation 65.6 fL (36.4-46.3); Red Blood Count 4.18 M/uL (4.70-6.10); White Blood Count 6.25 K/ul (4.8-10.8)
[2023-10-16 07:44] LABS: Calcium 8.8 mg/dl (8.6-10.3); Creatinine Clr Calc Pharmacy 14.4 ml/min; Est GFR (African American) 12.3 ml/min; Est GFR (Non-African American) 10.6 ml/min; Potassium 4.1 mmol/L (3.5-5.1)
--- NOTE | 2023-10-16 10:00 | Hospitalist Progress Note ---
Date of Service October 16, 2023 Assessment & Plan (1) Multifocal pneumonia: Plan: Sepsis due to multifocal pneumonia, possible aspiration -CXR demonstrating multifocal pneumonia -Recurrent ileus/SBO with emesis which may have led to aspiration -Meeting SIRS criteria on admission -RVP negative -MRSA nares positive, noted history of previous MRSA pneumonia as well -BCx, sputum Cx pending -Zosyn/doxycycline on admission switched to cefepime/Flagyl/vancomycin, de- escalated to Rocephin on 10/14 -Chest CT obtained 10/15 suggests more likely aspiration pneumonitis rather than PNA -Discontinue Rocephin -Monitor CBC (2) Small bowel obstruction: Plan: - CTAP concerning for ileus/SBO w/o clear transition point - NGT placed on admission General surgery consulted- more likely ileus than SBO -No surgical intervention at present -NGT removed by pt while en route to CT today, re-inserted and will confirm placement with KUB. May potentially remove later today NPO, Zofran, hydromorphone as needed for pain/nausea (3) ESRD (end stage renal disease): Plan: Euvolemic at present - Cr 7.33 improved to 5 today after HD on 10/14, electrolytes stable - Nephrology following for dialysis management (4) Melena: Plan: Large dark bowel movement which was weakly FOBT+. Pt is on [place] Hemoglobin 12.9 on admission, now stable in 11-12 range - Continue pantoprazole BID - Poor endoscopy candidate due to comorbidities, active infection/PNA - Deferring GI consult due to hemodynamic stability, stable Hgb - Transfuse Hgb < 7 - Monitor CBC (5) Hx of atrial flutter: Plan: Amiodarone held while NPO. If prolonged n.p.o. can switch this to IV. - Sinus tachycardia improving today - Deferring anticoagulation due to UGIB (6) Alzheimer disease: Plan: Patient is not competent for medical decision-making. Please contact patient's daughter Jenny at [phone] for any updates, changes in status, or medical decision making Plan DVT prophylaxis: SCDs, pharmacologic prophylaxis contraindicated Diet: NPO Disposition: PCU CODE STATUS- No intubation or chest compressions and complete cardiopulmonary arrest; is okay with ICU transfer/shock/meds Admission and Anticipated Discharge Date Admission Date: October 14, 2023 Supervising Physician Co-Signing Physician Notes I personally examined the patient and verified all reyes points of history and exam, discussed case, and agree with decision making with Dr Zarate only c/o wanting NGT removed. no belly pain, no complaints. Vitals noted, in general he is awake and alert pleasant no distress. HEENT normocephalic atraumatic NG tube in place. breathing unlabored, no accessory muscles good effort abd soft nd nt (NG in place when i see him but suction off). no focal neuro deficits. KUB and CT chest noted Small bowel obstruction vs ileus - improving. dc NG, clear liquids, slowly advance as tolerated Aspiration pneumoniawith hindsight appears to have been aspiration pneumonitis, not pneumonia. between clinical progress and CT chest findings - no clear need for further abx persistently abnormal CXR - given his clinical appearance of aspiration pneumonitis being inconsistent with his current CXR, compounded by current CXR looking quite similar to all recent prior CXR - and therefore something present that is not clearing -> CT checked - emphysema and nodular densities (favor scarring, but follow to exclude malignancy) ESRD/fluid statusstarting clear liquids, appears euvolemic today, ongoing HD per nephro Heme positive stoolsno appearance of hemorrhage, nonspecific, hemoglobin stable. Watchful waiting, likely for outpatient follow-up. Subjective Acute events overnight- none. Pt examined at bedside. Denies any acute complaints, reports feeling tired still but overall improved from day prior. Review of Systems Review of Systems: Per HPI/Subjective Physical Exam Physical Exam: General: A&Ox person, place. Drowsy but interactive. HEENT: Atraumatic, normocephalic. Pulm: Diminished and coarse breath sounds b/l though improved from day prior. Symmetrical chest rise. No increased work of breathing. No respiratory distress. Cardiac: regular rhythm, tachycardic, no murmurs Abdominal: Mildly distended, nontender, soft. No rebound/guarding. Ext: Warm, dry. No pitting edema in the ankles Results & Data Results & Data Vital Signs (Past 12 Hours) Vital Signs Temp Pulse Resp BP Pulse Ox O2 Del Method O2 Flow Rate 10/16/23 08:00 37.2 C 83 20 143/79 H 96 Room Air 2 10/16/23 03:25 37.1 C 103 H 18 126/75 95 Room Air 2 10/15/23 22:29 36.8 C 87 18 144/70 H 95 Nasal Cannula 3
--- NOTE | 2023-10-16 10:24 | CT Scan Report ---
CT OF THE CHEST WITHOUT IV CONTRAST CLINICAL HISTORY: persistent R sided lung infiltrate COMPARISON STUDY: Chest radiograph October 15, 2023. Chest CT June 30, 2021. CT DOSE: 625.42 mGy.cm TECHNIQUE: Axial images of the chest were obtained without IV contrast. Images were reviewed in the axial, sagittal, and coronal planes. IV contrast was not administered for this examination. Automat ed exposure control was utilized for the study. A dose lowering technique was utilized adhering to t he principles of ALARA. FINDINGS: Tip of the nasogastric tube is within the proximal body of the stomach. The heart is moder ately enlarged. There is no pericardial effusion. Moderate aortic valvular and mitral annular calcifi cation is noted. Mildly enlarged mediastinal lymph nodes remain unchanged since prior CT. There are s mall bilateral pleural effusions. Subpleural bilateral lower lobe opacities favor segmental atelectas is. Lingular airspace opacity likely reflects atelectasis. There is severe emphysema. Mild interlobul ar septal thickening is present. The previously described biapical irregular nodular densities have i ncreased since CT of June 30, 2021, including a 2.2 cm right upper lobe nodular density on image 4 8 of 253. An adjacent 1.1 cm nodular density has also increased. Left upper lobe nodules measure up t o 1.4 cm. Additional biapical opacities favor scarring. There is no pneumothorax. A few small increas ed sclerosis within the visualized skeletal structures is likely related to chronic renal failure. In numerable cysts within visualized portions of the kidneys are present. A small amount of ascites with in the upper abdomen has increased since CT of October 14, 2023. IMPRESSION: 1. Small bilateral pleural effusions with bilateral lower lobe airspace opacities suggestive of segme ntal atelectasis. No definite consolidation to suggest pneumonia. 2. Increase in size of the previously described biapical nodular densities since chest CT of June 30, 2021. Although these may reflect scarring, a neoplastic etiology cannot be excluded a short-term follow-up chest CT in 3 months is recommended. 3. Interlobular septal thickening consistent with pulmonary edema. 4. Severe emphysema. 5. No change in mildly enlarged mediastinal lymph nodes since CT of June 30, 2021. 6. Small amount of upper abdominal ascites, increased since prior abdominal CT. ACT 112: Positive. There are findings on this exam that require communication between the performing entity and the patient following Patient Test Result Information Act ([place] Act 112) guidelines. Electronically signed by: Yunior Arroyo M.D. 10/16/2023 10:22 AM
--- NOTE | 2023-10-16 11:01 | XRay Report ---
KUB CLINICAL HISTORY: NG tube reinsertion COMPARISON STUDY: CT of the abdomen and pelvis October 14, 2023. KUB October 15, 2023. FINDINGS: The tip of the nasogastric tube projects over the body of the stomach. Small bowel dilatati on has improved. Small bowel loops measure up to 4.2 cm in caliber. IMPRESSION: 1. Tip of nasogastric tube projects over the body of the stomach. 2. Improvement in small bowel dilatation. ACT 112: Negative or not required by law. Electronically signed by: Yunior Arroyo M.D. 10/16/2023 11:00 AM
--- NOTE | 2023-10-16 12:16 | Nephrology Progress Note ---
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 Admitted with ileus and had NG -tube placed. KUB this morning showed improvement. Had dialysis yesterday, had 3 L UF, blood pressure, volume status improved. Clinically otherwise stable. -- Continue to monitor over the weekend and plan for dialysis Wednesday. -- Left arm nephrology precaution with AV fistula in place -- Possible removal of NG tube later today as KUB showed improvement Admission and Anticipated Discharge Date Admission Date: October 14, 2023 Abraham Laird was seen and evaluated this morning. Complain of discomfort with NG tube to fact that he has not been eating for last 3 days. NG tube was placed for ileus without fátima small bowel obstruction. KUB this morning showed impro vement in small intestinal dilatation. Dialysis yesterday. Blood pressure, volume status and electrolyte acceptable. Review of Systems Review of Systems: Detailed review of system was done and pertinent positives and negatives are mentioned above. Physical Exam Constitutional: WD/WN, vitals as above + ill appearing; no acute distress Eyes: + anicteric sclerae ENMT: NG tube in place Neck: normal visual inspection Respiratory: no respiratory distress Auscultation: + diminished lung sounds Cardiovascular: Rate/Rhythm: regular rate and regular rhythm Extremities: + edema and + AV fistula Skin: no rashes, warm and dry Neurologic: no focal motor deficits Psychiatric: Orientation: alert and oriented x 3 Results & Data Vital Signs (Past 12 Hours) Vital Signs Temp Pulse Resp BP Pulse Ox O2 Del Method O2 Flow Rate 10/16/23 11:50 36.8 C 20 133/78 97 Room Air 10/16/23 10:10 Nasal Cannula 3 10/16/23 08:00 37.2 C 83 20 143/79 H 96 Nasal Cannula 2 10/16/23 03:25 37.1 C 103 H 18 126/75 95 Room Air 2 PG Care Time/CCT Total # of Minutes Spent Total Time Spent with Patient: Total time spent is greater than 50% in coordination of care (as documented) at patient's floor/unit and/or counseling patient: Coding Level of Care Code 52117 SUB INP/OBS CARE 2/35MIN Diagnoses ESRD (end stage renal disease) N18.6 Ileus K56.7 Anemia N18.6; D63.1; Z99.2 Anemia type: due to chronic kidney disease Chronic kidney disease stage: on chronic dialysis Secondary hyperparathyroidism N25.81 (3) Anemia Anemia type: due to chronic kidney disease Chronic kidney disease stage: on chronic dialysis Qualified Code(s): N18.6 - End stage renal disease; D63.1 - Anemia in chronic kidney disease; Z99.2 - Dependence on renal dialysis
--- NOTE | 2023-10-16 13:30 | Surgery Progress Note ---
Date of Service October 16, 2023 Assessment & Plan (1) Ileus: Plan: in light of no surgical hx likely ileus rather than sbo no indications for surgical indications currently. Continue current management (2) Melena: (3) ESRD (end stage renal disease): (4) UGIB (upper gastrointestinal bleed): (5) CHF (congestive heart failure): Admission and Anticipated Discharge Date Admission Date: October 14, 2023 Subjective feeling okay. Some abdominal pain. No flatus. Physical Exam Physical Exam: alert/oriented but somnolent abd: soft. nt. minimal distenstion Results & Data Vital Signs (Past 12 Hours) Vital Signs Temp Pulse Resp BP Pulse Ox O2 Del Method O2 Flow Rate 10/16/23 11:50 36.8 C 20 133/78 97 Room Air 10/16/23 10:10 Nasal Cannula 3 10/16/23 08:00 37.2 C 83 20 143/79 H 96 Nasal Cannula 2 10/16/23 03:25 37.1 C 103 H 18 126/75 95 Room Air 2
--- NOTE | 2023-10-16 14:15 | Billing Data ---
Date of Service October 16, 2023 Coding Level of Care Code 12646 SUB INP/OBS CARE
[2023-10-17 07:12] LABS: Basophils # (auto) 0.02 K/uL (0.00-0.20); Basophils % (auto) 0.3 %; Eosinophils # (auto) 0.16 K/uL (0.00-0.50); Eosinophils % (auto) 2.5 %; Hematocrit (blood only) 39.1 % (42.0-52.0); Immature Granulocytes # (auto) 0.02 K/uL (0.01-0.20); Immature Granulocytes % (auto) 0.3 %; Lymphocytes # (auto) 0.69 K/uL (1.20-3.40); Mean Corpuscular Hemoglobin 28.2 pg (25.0-34.0); Mean Corpuscular Hgb Conc 30.7 g/dL (32.0-36.0); Mean Platelet Volume 10.7 fL (9.4-12.4); Monocytes # (auto) 0.92 K/uL (0.11-0.59); Monocytes % (auto) 14.6 %; Neutrophils # (auto) 4.48 K/uL (1.40-6.50); Neutrophils % (auto) 71.3 %; Platelet Count 167 K/uL (130-400); RDW Coefficient of Variation 18.4 % (11.5-14.5); RDW Standard Deviation 62.3 fL (36.4-46.3); Red Blood Count 4.25 M/uL (4.70-6.10); White Blood Count 6.29 K/ul (4.8-10.8)
[2023-10-17 07:30] LABS: BUN Creatinine Ratio 8.7 (10-20); Creatinine Clr Calc Pharmacy 10.3 ml/min; Est GFR (African American) 8.2 ml/min; Est GFR (Non-African American) 7.1 ml/min; Potassium 4.3 mmol/L (3.5-5.1)
--- NOTE | 2023-10-17 08:30 | Hospitalist Progress Note ---
Date of Service October 17, 2023 Assessment & Plan (1) Small bowel obstruction: Plan: - CTAP concerning for ileus/SBO w/o clear transition point - NGT placed on admission General surgery consulted- more likely ileus than SBO -No surgical intervention at present -S/p NGT, removed 10/15 NPO, Zofran, hydromorphone as needed for pain/nausea - Improving with conservative management, tolerating clear liquids at present (2) Multifocal pneumonia: Plan: Sepsis due to multifocal pneumonia, possible aspiration -CXR demonstrating multifocal pneumonia -Recurrent ileus/SBO with emesis which may have led to aspiration -Meeting SIRS criteria on admission -RVP negative -MRSA nares positive, noted history of previous MRSA pneumonia as well -BCx, sputum Cx preliminary negative -Zosyn/doxycycline on admission switched to cefepime/Flagyl/vancomycin, de- escalated to Rocephin on 10/14 -Chest CT obtained 10/15 suggests more likely aspiration pneumonitis rather than PNA -Chest CT does show emphysema- fibrosis/scarring vs malignancy. May be further evaluated as outpatient -Discontinued Rocephin 10/15 -Monitor CBC (3) ESRD (end stage renal disease): Plan: Euvolemic at present - MWF HD, electrolytes stable - Nephrology following for dialysis management (4) Melena: Plan: Large dark bowel movement which was weakly FOBT+. Pt is on Auryxia Hemoglobin 12.9 on admission, now stable in 11-12 range - Continue pantoprazole BID - Poor endoscopy candidate due to comorbidities, active infection/PNA - Deferring GI consult due to hemodynamic stability, stable Hgb -Can be evaluated further as outpatient - Transfuse Hgb < 7 - Monitor CBC (5) Hx of atrial flutter: Plan: Amiodarone held while NPO. If prolonged n.p.o. can switch this to IV. - Mild sinus tachycardia remains persistent - Deferring anticoagulation due to UGIB (6) Alzheimer disease: Plan: Patient is not competent for medical decision-making. Please contact patient's daughter Jenny at [phone] for any updates, changes in status, or medical decision making Plan DVT prophylaxis: SCDs, pharmacologic prophylaxis contraindicated Diet: Full liquids/dialysis diet Disposition: PCU CODE STATUS- No intubation or chest compressions and complete cardiopulmonary arrest; is okay with ICU transfer/shock/meds Admission and Anticipated Discharge Date Admission Date: October 14, 2023 Supervising Physician Co-Signing Physician Notes I personally examined the patient and verified all reyes points of history and exam, discussed case, and agree with decision making with Dr Zarate Tolerating clear liquids, no abdominal pain nausea or vomiting. No shortness of breath. Family present at the bedsideupdated to the best my ability and to their satisfaction. Vitals noted, in general he is awake and alert pleasant no distress. HEENT normocephalic atraumatic mucous membranes moist. breathing unlabored, no accessory muscles good effort abd soft nd nt (had eaten a large amount of clear liquids by the time I saw him). no focal neuro deficits. Small bowel obstruction vs ileus - improving. Advance diet as tolerated Aspiration pneumoniawith hindsight appears to have been aspiration pneumonitis, not pneumonia. between clinical progress and CT chest findings - no clear need for further abx, and has been doing well off of antibiotics persistently abnormal CXR - given his clinical appearance of aspiration pneumonitis being inconsistent with his current CXR, compounded by current CXR looking quite similar to all recent prior CXR - and therefore something present that is not clearing -> CT checked - emphysema and nodular densities (favor scarring, but follow to exclude malignancy) ESRD/fluid statustolerating p.o. intake. No further concern of need for IV fluids. Next dialysis tomorrow Heme positive stoolsno appearance of hemorrhage, nonspecific, hemoglobin stable. Watchful waiting, likely for outpatient follow-up. Dispohopefully back to skilled tomorrow, depending on ongoing clinical progress, as well as timing of dialysis Subjective Acute events overnight- none. Pt examined at bedside. Feels improved, denies acute complaints. Review of Systems Review of Systems: Per HPI/Subjective Physical Exam Physical Exam: General: A&Ox person, place. Awake and interactive. HEENT: Atraumatic, normocephalic. Pulm: Diminished breath sounds b/l but less coarse. Symmetrical chest rise. No increased work of breathing. No respiratory distress. Cardiac: regular rhythm, tachycardic, no murmurs Abdominal: Minimal distension, nontender, soft. No rebound/guarding. Ext: Warm, dry. No pitting edema in the ankles Results & Data Results & Data Vital Signs (Past 12 Hours) Vital Signs Temp Pulse Pulse Resp BP Pulse Ox O2 Del Method 10/17/23 07:30 37.0 C 114 H 20 176/94 H 90 Nasal Cannula 10/17/23 03:25 36.7 C 107 H 18 150/75 H 91 Room Air 10/16/23 23:00 95 H 10/16/23 22:52 36.7 C 78 18 149/77 H 94 Nasal Cannula O2 Flow Rate 10/17/23 07:30 6 10/17/23 03:25 10/16/23 23:00 10/16/23 22:52 2
--- NOTE | 2023-10-17 12:11 | Nephrology Progress Note ---
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 Admitted with ileus and had NG -tube placed. KUB this morning showed improvement. Had dialysis Wednesday, had 3 L UF, blood pressure, volume status acceptable. Clinically otherwise stable. -- Continue to monitor over the weekend and plan for dialysis Wednesday. -- Left arm nephrology precaution with AV fistula in place -- Advance diet as tolerated mert [place] Admission and Anticipated Discharge Date Admission Date: October 14, 2023 Abraham Laird was seen this morning with family at bedside. He was started on clear liquids and so far tolerated well. He was sleepy as he generally does not sleep at night. Blood pressure slightly elevated. No shortness of breath or chest pain. Electrolyte acceptable. Review of Systems Review of Systems: Detailed review of system was done and pertinent positives and negatives are mentioned above. Physical Exam Constitutional: WD/WN, vitals as above + ill appearing; no acute distress Eyes: + anicteric sclerae Neck: normal visual inspection Respiratory: no respiratory distress Auscultation: + diminished lung sounds and + crackles Cardiovascular: Rate/Rhythm: regular rate and regular rhythm Extremities: + edema and + AV fistula Skin: no rashes, warm and dry Neurologic: no focal motor deficits Psychiatric: Orientation: alert and oriented x 3 Results & Data Vital Signs (Past 12 Hours) Vital Signs Temp Pulse Pulse Resp BP Pulse Ox O2 Del Method 10/17/23 10:00 Nasal Cannula 10/17/23 09:50 103 H 10/17/23 07:30 37.0 C 114 H 20 176/94 H 90 Nasal Cannula 10/17/23 03:25 36.7 C 107 H 18 150/75 H 91 Room Air O2 Flow Rate 10/17/23 10:00 3 10/17/23 09:50 10/17/23 07:30 6 10/17/23 03:25 PG Care Time/CCT Total # of Minutes Spent Total Time Spent with Patient: Total time spent is greater than 50% in coordination of care (as documented) at patient's floor/unit and/or counseling patient: Coding Level of Care Code 50868 SUB INP/OBS CARE 2/35MIN Diagnoses ESRD (end stage renal disease) N18.6 Ileus K56.7 Anemia N18.6; D63.1; Z99.2 Anemia type: due to chronic kidney disease Chronic kidney disease stage: on chronic dialysis Secondary hyperparathyroidism N25.81 (3) Anemia Anemia type: due to chronic kidney disease Chronic kidney disease stage: on chronic dialysis Qualified Code(s): N18.6 - End stage renal disease; D63.1 - Anemia in chronic kidney disease; Z99.2 - Dependence on renal dialysis
--- NOTE | 2023-10-17 17:07 | Billing Data ---
Date of Service October 17, 2023 Coding Level of Care Code 59119 SUB INP/OBS CARE
[2023-10-17] MEDS: AMIODARONE 200 MG TAB PO SCH (20:54)
[2023-10-17] MEDS: CHOLECALCIFEROL 125 MCG (5,000 UNITS) TAB PO SCH (20:54)
[2023-10-17] MEDS: DOCUSATE SODIUM 100 MG CAP PO SCH (20:55)
--- NOTE | 2023-10-18 07:00 | Hospitalist Progress Note ---
"Date of Service October 18, 2023 Assessment & Plan (1) Small bowel obstruction: Plan: Sisi is a 73M w/ PMH of ESRD, ETOH Cirrhosis requiring paracentesis, UGIB, AMS/Alzheimer, CHF, GERD, PAF, CRF w/ hypoxia a/w COPD & emphysema, transitional cell carcinoma, anemia, CKD, secondary hyperparathyroidism, pulmonary nodules, tremors, PTSD, HTN, polycystic kidney disease, BPH, prior intracranial hemorrhage, and seizure disorder who presented with a small bowel obstruction and aspiration pneumonitis. SBO - CTAP concerning for ileus/SBO w/o clear transition point - General Surgery Consulted, appreciate recommendations NGT placed on admission, removed 10/15, now tolerating regular diet No surgical intervention recommended, signed off - Tolerating regular diet well w/o nausea or emesis Continue PRN Zofran and Hydromorphone - Continue conservative management - Stool softeners ordered, patient passing flatus, no bowel movement during admission Multifocal PNA vs Aspiration Pneumonitis | SIRS + - RVP negative, MRSA nares + (Hx of MRSA PNA) - BCx & Sputum Cx negative - CXR suggestive of multifocal PNA - Chest CT 10/15 suggestive of aspiration pneumonitis more than PNA Chest CT also indicative of emphysema (fibrosis/scarring) vs malignancy - should be further evaluated as OP - Recurrent illeus/SBO w/ emesis could increase aspiration risk - Antibiotics (Rocephin) discontinue 10/15, patient remaining clinically stable w/o leukocytosis - Continue Famotidine Chronic Conditions: - ESRD: Continue MWF hemodialysis, Left AV fistula, Nephrology following for HD - Melena: Chronic, on Auryxia, Hgb stable at 12.9, continue Pantoprazole, continue evaluation as OP - A Flutter: Continue Amiodarone, ongoing sinus tachycardia, anticoagulation deferred d/t UGIB - Alzheimer's Disease: Pt w/o MDM, patient's daughter Jenny ([phone]) for MDM. - Seizure Disorder: Continue Divalproex - GERD: continue Famotidine - COPD/Emphysema: Continue home inhalers - HTN: No active home meds, BP stable DVT prophylaxis: SCDs, pharmacologic prophylaxis contraindicated Diet: Dialysis diet, regular Disposition: PCU, dc pending BM s/p SBO CODE STATUS- No intubation or chest compressions and complete cardiopulmonary arrest; is okay with ICU transfer/shock/meds (2) Multifocal pneumonia: (3) ESRD (end stage renal disease): (4) Melena: (5) Hx of atrial flutter: (6) Alzheimer disease: Admission and Anticipated Discharge Date Admission Date: October 14, 2023 Supervising Physician Co-Signing Physician Notes Attending Physician Supervision Note: I independently interviewed and examined the patient and verified the reyes history and physical, reviewed labs and image studies and agree with findings and care plan noted above. SBO vs ileus - diet advanced - tolerating. Bowel regimen since no BM from admission - miralax switched to q4h until has BM. Concern of aspiration pneumonitis - after recurrent vomiting episodes. resolved. CT chest with nodular densities - outpatient pulmonary evaluation. ESRD - per nephro Heme positive stoolsno appearance of hemorrhage, hb stable. Watchful waiting, likely for outpatient follow-up. Subjective 10/18/23: Patient resting comfortably in bed upon arrival. No acute events overnight. Denies chest pain or dyspnea. Patient notes enjoying breakfast w/o nausea or emesis. Patient noted that he had a bowel movement yesterday, but not today. Chart documentation notes patient has not yet had a bowel movement this admission. Denies abdominal pain. Patient is looking forward to discharge. Physical Exam Physical Exam: Gen: NAD, alert, interactive HEENT: NCAT, supple, no LAD Resp:Non-labored, no wheezing/rhonchi/rales, slightly diminished in bases, CTAB CV:tachycardic, regular rhythm, normal S1/S2, no M/R/G Abd: Soft, non-distended, no TTP, normoactive bowels, no masses Extr: 2+ dp bilaterally, no edema Skin: No rashes lesions or erythema Results & Data Results & Data Vital Signs (Past 12 Hours) Vital Signs Temp Pulse Pulse Resp BP Pulse Ox O2 Del Method 10/18/23 03:39 36.5 C 95 H 20 146/91 H 90 Nasal Cannula 10/17/23 23:31 36.5 C 93 H 20 134/80 90 Nasal Cannula 10/17/23 20:50 Nasal Cannula 10/17/23 19:39 36.3 C L 90 20 131/71 90 Nasal Cannula O2 Flow Rate 10/18/23 03:39 3 10/17/23 23:31 3 10/17/23 20:50 2 10/17/23 19:39 3 Resident Activity Tracking Resident Involvement: Resident Care Provided Care Provided: Adult [facility]"
[2023-10-18 07:18] LABS: Hematocrit (blood only) 36.5 % (42.0-52.0); Hemoglobin 11.5 g/dl (14.0-18.0); Mean Corpuscular Hemoglobin 28.1 pg (25.0-34.0); Mean Corpuscular Hgb Conc 31.5 g/dL (32.0-36.0); Mean Corpuscular Volume 89.2 fL (80.0-100.0); Mean Platelet Volume 10.1 fL (9.4-12.4); Platelet Count 136 K/uL (130-400); RDW Coefficient of Variation 18.2 % (11.5-14.5); RDW Standard Deviation 59.7 fL (36.4-46.3); Red Blood Count 4.09 M/uL (4.70-6.10); White Blood Count 4.61 K/ul (4.8-10.8)
[2023-10-18 07:32] LABS: Creatinine Clr Calc Pharmacy 8.4 ml/min; Est GFR (African American) 6.4 ml/min; Est GFR (Non-African American) 5.5 ml/min; Potassium 4.2 mmol/L (3.5-5.1)
--- NOTE | 2023-10-18 08:18 | Surgery Progress Note ---
Date of Service October 18, 2023 Assessment & Plan (1) Ileus: Plan: doing well clinically. no surgical indications. will sign off. please call if any questions/problems Admission and Anticipated Discharge Date Admission Date: October 14, 2023 Subjective pt seen. feeling well. sandy reg diet. no pain or nausea Physical Exam Constitutional: WD/WN, vitals as above no acute distress and not ill appearing Eyes: PERRL, conjunctivae normal, anicteric sclerae EOM intact bilaterally ENMT: external ear and nose normal, oropharynx normal Ears: no hearing impairment Neck: trachea midline, no thyromegaly Respiratory: normal respiratory effort; no respiratory distress and does not use accessory muscles Cardiovascular: Rate/Rhythm: regular rate and regular rhythm Gastrointestinal (Abdomen): normal bowel sounds, soft, nontender, no hepatosplenomegaly Skin: no rashes, warm and dry Psychiatric: Orientation: alert, oriented x 3 and cooperative Results & Data Vital Signs (Past 12 Hours) Vital Signs Temp Pulse Pulse Pulse Resp BP Pulse Ox 10/18/23 07:45 36.5 C 101 H 20 147/77 H 90 10/18/23 03:39 36.5 C 95 H 20 146/91 H 90 10/17/23 23:31 36.5 C 93 H 20 134/80 90 10/17/23 20:50 O2 Del Method O2 Flow Rate 10/18/23 07:45 Nasal Cannula 3.0 10/18/23 03:39 Nasal Cannula 3 10/17/23 23:31 Nasal Cannula 3 10/17/23 20:50 Nasal Cannula 2 PG Care Time/CCT Total # of Minutes Spent Total Time Spent with Patient: Total time spent is greater than 50% in coordination of care (as documented) at patient's floor/unit and/or counseling patient: Coding Level of Care Code 23870 SUB INP/OBS CARE 125MIN Diagnoses Ileus K56.7
--- NOTE | 2023-10-18 09:52 | Nephrology Progress Note ---
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 Admitted with ileus and had NG -tube placed. KUB this morning showed improvement. Has been tolerating regular diet since yesterday, overall doing well. Clinically otherwise stable. --Getting dialysis as his regular schedule, aim for 3 L UF as tolerated. -- Left arm nephrology precaution with AV fistula in place Admission and Anticipated Discharge Date Admission Date: October 14, 2023 Abraham Laird was seen during dialysis this morning. Blood pressure fair, tolerating UF. He has been tolerating regular diet since yesterday although no bowel movement yet but denied any abdominal pain nausea or vomiting. No shortness of breath or chest pain. Electrolyte acceptable. Review of Systems Review of Systems: Detailed review of system was done and pertinent positives and negatives are mentioned above. Physical Exam Constitutional: WD/WN, vitals as above + ill appearing; no acute distress Eyes: + anicteric sclerae Neck: normal visual inspection Respiratory: no respiratory distress Auscultation: + diminished lung sounds and + crackles Cardiovascular: Rate/Rhythm: regular rate and regular rhythm Extremities: + AV fistula; no edema Skin: no rashes, warm and dry Neurologic: no focal motor deficits Psychiatric: Orientation: alert and oriented x 3 Results & Data Vital Signs (Past 12 Hours) Vital Signs Temp Pulse Pulse Pulse Resp BP Pulse Ox 10/18/23 07:45 36.5 C 101 H 20 147/77 H 90 10/18/23 03:39 36.5 C 95 H 20 146/91 H 90 10/17/23 23:31 36.5 C 93 H 20 134/80 90 O2 Del Method O2 Flow Rate 10/18/23 07:45 Nasal Cannula 3.0 10/18/23 03:39 Nasal Cannula 3 10/17/23 23:31 Nasal Cannula 3 PG Care Time/CCT Total # of Minutes Spent Total Time Spent with Patient: Total time spent is greater than 50% in coordination of care (as documented) at patient's floor/unit and/or counseling patient: Coding Level of Care Code 19693 SUB INP/OBS CARE 2/35MIN Diagnoses ESRD (end stage renal disease) N18.6 Ileus K56.7 Anemia N18.6; D63.1; Z99.2 Anemia type: due to chronic kidney disease Chronic kidney disease stage: on chronic dialysis Secondary hyperparathyroidism N25.81 (3) Anemia Anemia type: due to chronic kidney disease Chronic kidney disease stage: on chronic dialysis Qualified Code(s): N18.6 - End stage renal disease; D63.1 - Anemia in chronic kidney disease; Z99.2 - Dependence on renal dialysis
[2023-10-18] MEDS: POLYETHYLENE (MIRALAX) 17 GM PACK PO SCH ×2 (14:15→16:06)
[2023-10-18] MEDS: CINACALCET HCL 30 MG TAB PO SCH (14:17)
[2023-10-18] MEDS: DIVALPROEX DELAY RELEASE 500 MG TAB PO SCH (14:18)
[2023-10-18] MEDS: THIAMINE HCL 100 MG TAB PO SCH (14:18)
[2023-10-18] MEDS: DOCUSATE SODIUM 100 MG CAP PO SCH (14:19)
[2023-10-18] MEDS ORDERED: FAMOTIDINE 20 MG TAB PO PRN (17:08)
--- NOTE | 2023-10-19 06:55 | Discharge Summary ---
"Date of Service October 19, 2023 Admission HPI Per Admitting Provider Sisi ott with family present. Granddaughter reports around 2pm went for a paracentesis for ascities suspected due to known ETOH cirrhosis. 'Was his normal self at noon, nothing abnormal'. At time of paracentesis no ascites was seen, but a potential mass was noted with ?obstruction and was referred to the ER Since noon rapidly becoming more confused/sedated. Looks similar to when he has had pneumonia in the past. Normally alert and talkative, currently difficult to arouse and falls back asleep immediately after awakening to vigorous physical stimulation. 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 Did have some black emesis on his stark noted by family today. BM today was black/sticky, weakly hemoccult positive. Hx ETOH cirrhosis diagnosed 9 months ago. Etoh is in remission for 5-6 years ago. Quit etoh when he was on the transplant list, but is no longer on the list. Nohistory of xplant/partial xplant as he was never healthy/stable enough to actually progress. 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 Health issues seemed to explode after stopping this and 'got 10 times worse'. Recreational marijuana, no medical card. Has had difficulty PTSD/flashbacks int he past and felt this was much better/well controlled with marijuana butnever pursued a me dical card. No recent recreational drug use. Has had ~14 taps total. Started as PD dialysis 6 years ago. Last year December/January PD was stopped, switched to regular dialysis. LEFT AC fisulta. Preior yanez was removed. Due for dialysis tomorrow (MWF with [facility]) and follows with [facility]. +Fevers, chills, sweats. +Productive for a few days. Last colonoscopy less than 1 year ago with a polyp removal, no abnormalities other than polyp removal but suboptimal visualization. [facility] [place] Medical History: Reviewed Medications: Reviewed Surgical History: Reviewed Family history: Reviewed Allergies: Reviewed Social History: REviewed. No ETOH in 5-6 years. Former RR marijuana --> had benefit to this with PTSD but no card so was stopped after being admitted to facility Code Status: DNR, DNR but OK with ICU/vasopressors/shock. WIll list as conditional code Admission Exam Per Admitting Provider General: A&Ox2. Somnolent, falls back asleep easily. HEENT: Atraumatic, normocephalic. Pulm: Coarse. Symmetrical chest rise. No increased work of breathing. No respiratory distress. Cardiac: regular, tachycardia. Radial pulses intact and symmetrical. Abdominal: Tympanitic, distended. Mild RLQ ttp, no rebound/guarding. No epigastric ttp Ext: Warm, dry. No pitting edema in the ankles Principal Diagnosis Pneumonitis Small Bowel Obstruction Discharge Exam Gen: NAD, alert, interactive HEENT: NCAT, supple, no LAD Resp:Non-labored, no wheezing/rhonchi/rales, slightly diminished in bases, CTAB CV:tachycardic, regular rhythm, normal S1/S2, no M/R/G Abd: Soft, non-distended, no TTP, normoactive bowels, no masses Extr: 2+ dp bilaterally, no edema Skin: No rashes lesions or erythema Discharge Data Allergies Allergy/AdvReac Type Severity Reaction Status Date / Time lisinopril AdvReac Intermediate COUGH Verified 10/07/23 09:17 Consultations 10/14/23 17:52 ED Decision to Admit Stat 10/14/23 18:54 Consult General Surgery Routine 10/14/23 19:00 Consult Nephrology Routine Ordered Studies 10/14/23 14:52 CT Abdomen and Pelvis [CT abd pelvis wo con] Stat 10/16/23 08:31 CT chest diagnostic wo con Routine Hospital Course (1) Small bowel obstruction: Sisi is a 73M w/ PMH of ESRD, ETOH Cirrhosis requiring paracentesis, UGIB, AMS/Alzheimer, CHF, GERD, PAF, CRF w/ hypoxia a/w COPD & emphysema, transitional cell carcinoma, anemia, CKD, secondary hyperparathyroidism, pulmonary nodules, tremors, PTSD, HTN, polycystic kidney disease, BPH, prior intracranial h emorrhage, and seizure disorder who presented with a small bowel obstruction and aspiration pneumonitis. SBO - CTAP concerning for ileus/SBO w/o clear transition point - General Surgery Consulted, appreciate recommendations NGT placed on admission, removed 10/15, now tolerating regular diet No surgical intervention recommended, signed off - Tolerating regular diet well w/o nausea or emesis Continue PRN Zofran and Hydromorphone - Continue conservative management - Stool softeners ordered, patient passing flatus, no bowel movement during admission Multifocal PNA vs Aspiration Pneumonitis | SIRS + - RVP negative, MRSA nares + (Hx of MRSA PNA) - BCx & Sputum Cx negative - CXR suggestive of multifocal PNA - Chest CT 10/15 suggestive of aspiration pneumonitis more than PNA Chest CT also indicative of emphysema (fibrosis/scarring) vs malignancy - should be further evaluated as OP - Recurrent illeus/SBO w/ emesis could increase aspiration risk - Antibiotics (Rocephin) discontinue 10/15, patient remaining clinically stable w/o leukocytosis - Continue Famotidine Chronic Conditions: - ESRD: Continue MWF hemodialysis, Left AV fistula, Nephrology following for HD - Melena: Chronic, on Auryxia, Hgb stable at 12.9, continue Pantoprazole, continue evaluation as OP - A Flutter: Continue Amiodarone, ongoing sinus tachycardia, anticoagulation deferred d/t UGIB - Alzheimer's Disease: Pt w/o MDM, patient's daughter Jenny ([phone]) for MDM. - Seizure Disorder: Continue Divalproex - GERD: continue Famotidine - COPD/Emphysema: Continue home inhalers - HTN: No active home meds, BP stable DVT prophylaxis: SCDs, pharmacologic prophylaxis contraindicated Diet: Dialysis diet, regular Disposition: PCU, dc pending BM s/p SBO CODE STATUS- No intubation or chest compressions and complete cardiopulmonary arrest; is okay with ICU transfer/shock/meds (2) Multifocal pneumonia: (3) ESRD (end stage renal disease): (4) Melena: (5) Hx of atrial flutter: (6) Alzheimer disease: Total Time Total Time Spent Total Time Spent (In Minutes): <30 Discharge Plan Discharge Items Patient Disposition: Transfer Snf Fac Reason For Visit: PNA,POSSIBLE SBO Discharge Diagnosis: Aspiration pneumonitis Small bowel obstruction Activity: Per Instructions section Non-emergency contact: Primary Care Provider Call non-emergency contact if: you have any medication questions and your symptoms worsen Follow-up/Referrals: Maximo Taylor MD [Primary Care Provider] - Diet: Dialysis Renal Addtl Attending Provider Instructions: Sisi is a 73M w/ PMH of ESRD, ETOH Cirrhosis requiring paracentesis, UGIB, AMS/Alzheimer, CHF, GERD, PAF, CRF w/ hypoxia a/w COPD & emphysema, transitional cell carcinoma, anemia, CKD, secondary hyperparathyroidism, pulmonary nodules, tremors, PTSD, HTN, polycystic kidney disease, BPH, prior intracranial hemorrhage, and seizure disorder who presented with a small bowel obstruction and aspiration pneumonitis. SBO - CTAP concerning for ileus/SBO w/o clear transition point - General Surgery Consulted, appreciate recommendations NGT placed on admission, removed 10/15, now tolerating regular diet No surgical intervention recommended, signed off - Tolerating regular diet well w/o nausea or emesis Continue PRN Zofran and Hydromorphone - Continue conservative management - Stool softeners ordered, patient passing flatus, no bowel movement during admission Multifocal PNA vs Aspiration Pneumonitis | SIRS + - RVP negative, MRSA nares + (Hx of MRSA PNA) - BCx & Sputum Cx negative - CXR suggestive of multifocal PNA - Chest CT 10/15 suggestive of aspiration pneumonitis more than PNA Chest CT also indicative of emphysema (fibrosis/scarring) vs malignancy - should be further evaluated as OP - Recurrent illeus/SBO w/ emesis could increase aspiration risk - Antibiotics (Rocephin) discontinue 10/15, patient remaining clinically stable w/o leukocytosis - Continue Famotidine Chronic Conditions: - ESRD: Continue MWF hemodialysis, Left AV fistula, Nephrology following for HD - Melena: Chronic, on Auryxia, Hgb stable at 12.9, continue Pantoprazole, continue evaluation as OP - A Flutter: Continue Amiodarone, ongoing sinus tachycardia, anticoagulation deferred d/t UGIB - Alzheimer's Disease: Pt w/o MDM, patient's daughter Jenny ([phone]) for MDM. - Seizure Disorder: Continue Divalproex - GERD: continue Famotidine - COPD/Emphysema: Continue home inhalers - HTN: No active home meds, BP stable DVT prophylaxis: SCDs, pharmacologic prophylaxis contraindicated Diet: Dialysis diet, regular Disposition: PCU, dc pending BM s/p SBO CODE STATUS- No intubation or chest compressions and complete cardiopulmonary arrest; is okay with ICU transfer/shock/meds Pending Studies at Discharge: No Stand-Alone Forms: My [facility] Skilled Items Patient informed of condition?: Yes DNR: No Discharge Level of Care: Skilled Communicable Disease: No Discharge Prognosis: Stable Lines: None Urinary Catheter: No Medications and DC Order Prescriptions: Continued Stiolto Respimat 2.5-2.5 mcg/actuation mist 2 puff INH QAM Qty: 4 5RF docusate sodium [Colace] 100 mg capsule 400 mg PO BID ipratropium-albuterol 0.5 mg-3 mg(2.5 mg base)/3 mL solution for nebulization 3 ml INHALATION Q4H PRN (Reason: Shortness Of Breath Or Wheezing) Rx Instructions: ALSO LOW 02 SATS epinephrine [EpiPen] 0.3 mg/0.3 mL Auto-Injector 0.3 mg IM Q4H PRN (Reason: Anaphylaxis) divalproex 500 mg tablet,delayed release (DR/EC) 500 mg PO QAM amiodarone 200 mg Tablet 200 mg PO QPM loratadine [Wal-itin] 10 mg Tablet 10 mg PO Q2D Qty: 0 0RF trazodone 50 mg Tablet 50 mg PO HS tramadol 50 mg Tablet 50 mg PO Q6H PRN (Reason: Pain, Moderate) guaifenesin [Mucinex] 1,200 mg Tablet Extended Release 12hr 1,200 mg PO BID PRN (Reason: Congestion) Trinidad-Ancelmo 0.8 mg Tablet 1 tab PO DAILY cinacalcet [Sensipar] 30 mg Tablet 30 mg PO QAM thiamine HCl (vitamin B1) 100 mg tablet 100 mg PO QAM cholecalciferol (vitamin D3) 125 mcg (5,000 unit) capsule 5,000 unit PO QPM Rx Instructions: after supper, if ok with dialysis famotidine 20 mg Tablet 20 mg PO DIRECTED Rx Instructions: TAKES DAILY ON WEDNESDAY, WEDNESDAY, & WEDNESDAY EVENING AFTER DIALYSIS. melatonin 5 mg Tablet 15 mg PO HS acetaminophen 325 mg Tablet 325 mg PO Q4H MDD 3 GRAMS APAP/24 HOURS PRN (Reason: PAIN/FEVER) lidocaine-prilocaine 2.5-2.5 % Cream 1 applic topical UD Rx Instructions: apply to fistula site 1 hour prior to dialysis, mon/wed/wed. ondansetron 4 mg Tablet,Disintegrating 4 mg PO Q6H PRN (Reason: Nausea And Vomiting) Lokelma 5 gram Powder In Packet 5 g PO DIRECTED Rx Instructions: every other day on NON-DIALYSIS days-/th/sat/sun. Auryxia 210 mg iron tablet 420 mg PO TIDM Rx Instructions: administer with a meal ketorolac 0.5 % drops 1 drp OPL QAM Rx Instructions: STARTED 09/23/23 FOR 4 WEEKS, ENDS 10/23/23. WAIT 5 MINUTES BETWEEN EYE DROPS. prednisolone acetate 1 % drops,suspension 1 drp OPL QID Rx Instructions: WAIT 5 MINUTES BETWEEN DROPS. STARTED 09/23/23 FOR 4 WKS, ENDS 10/23/23 white petrolatum [Vaseline] Gel 1 applic TOPICAL DAILY Rx Instructions: WASH AREA ON LEFT SIDE OF NOSE, PAT DRY, THEN APPLY THIN LAYER ON DRESSING AND APPLY TO AREA DAILY Refresh Classic (PF) 1.4-0.6 % Dropperette 1 drp OPB QID PRN (Reason: Dry Eyes) protein supplement Liquid 30 ea PO BIDM Rx Instructions: 30 ML BIDM furosemide 40 mg tablet 40 mg PO BID 30 Days Qty: 60 1RF fluticasone propionate 50 mcg/actuation spray,suspension 1 spray intranasal BID 7 Days Qty: 16 1RF Rx Instructions: administer into each nostril Changed polyethylene glycol 3350 [Miralax] 17 gram/dose Powder 17 g PO BID 30 Days Qty: 1020 0RF Discharge Orders: Discharge Order (Routine); Ordered 10/19/23 Ordered By: Sin Farrell Admission Data Admit Date/Time: 10/14/23 21:42 Attending Provider: Radha Boyce Admit Provider: Ramone Gallardo Primary Care Provider: Maximo Taylor Other Providers: Ana Nava; Ramone Gallardo; Leonides Guerra; Elroy Underwood Other Interventions: Discharge Summary Assessment (RN) Last Done: 10/19/23 12:14 Supervising Physician Co-Signing Physician Notes Attending Physician Supervision Note: I independently interviewed and examined the patient and verified the reyes history and physical, reviewed labs and image studies and agree with findings and care plan noted above. SBO vs ileus - treated with bowel rest, IVF with improvement. Moved bowels. Later diet advanced - tolerated. Concern of aspiration pneumonitis - after recurrent vomiting episodes. resolved. CT chest with nodular densities - outpatient pulmonary evaluation. ESRD - per nephro Heme positive stoolsno appearance of hemorrhage, hb stable. Will need outpatient f/u Dementia - at baseline through hospital stay. Discharged to SNF Resident Activity Tracking Resident Involvement: Resident Care Provided Care Provided: Adult Hospital Medicine"
[2023-10-19 07:26] LABS: Hemoglobin 11.5 g/dl (14.0-18.0); Mean Corpuscular Hemoglobin 28.2 pg (25.0-34.0); Mean Corpuscular Hgb Conc 31.1 g/dL (32.0-36.0); Mean Corpuscular Volume 90.7 fL (80.0-100.0); Mean Platelet Volume 10.6 fL (9.4-12.4); Platelet Count 166 K/uL (130-400); RDW Coefficient of Variation 18.1 % (11.5-14.5); RDW Standard Deviation 60.3 fL (36.4-46.3); Red Blood Count 4.08 M/uL (4.70-6.10); White Blood Count 3.71 K/ul (4.8-10.8)
[2023-10-19 08:05] LABS: BUN Creatinine Ratio 6.5 (10-20); Calcium 8.6 mg/dl (8.6-10.3); Creatinine Clr Calc Pharmacy 12.7 ml/min; Est GFR (African American) 10.5 ml/min; Est GFR (Non-African American) 9.1 ml/min; Potassium 4.1 mmol/L (3.5-5.1)
--- NOTE | 2023-10-19 10:42 | Nephrology Progress Note ---
Date of Service October 19, 2023 Assessment & Plan (1) ESRD (end stage renal disease): (2) Ileus: (3) Anemia: (4) Secondary hyperparathyroidism: Plan End-stage renal disease secondary to ADPKD, has been on hemodialysis Wednesday, Wednesday, Wednesday. Admitted with ileus and had NG -tube placed. KUB this morning showed improvement. Has been tolerating regular diet , had bowel movement, overall doing well. Clinically otherwise stable. --Okay to be discharged, he will get dialysis tomorrow at outpatient facility. -- Left arm nephrology precaution with AV fistula in place Admission and Anticipated Discharge Date Admission Date: October 14, 2023 Abraham Laird was seen this morning. Overall he is feeling well. Had dialysis yesterday. Tolerating regular diet, had 2 bowel movement. Blood pressure, electrolyte and volume status acceptable. Review of Systems Review of Systems: Detailed review of system was done and pertinent positives and negatives are mentioned above. Physical Exam Constitutional: WD/WN, vitals as above no acute distress Eyes: + anicteric sclerae Neck: normal visual inspection Respiratory: no respiratory distress Auscultation: + diminished lung sounds and + crackles Cardiovascular: Rate/Rhythm: regular rate and regular rhythm Extremities: + AV fistula; no edema Skin: no rashes, warm and dry Neurologic: no focal motor deficits Psychiatric: Orientation: alert and oriented x 3 Results & Data Vital Signs (Past 12 Hours) Vital Signs Temp Pulse Resp BP Pulse Ox O2 Del Method O2 Flow Rate 10/19/23 07:35 Nasal Cannula 2 10/19/23 07:33 36.8 C 90 18 138/77 91 Nasal Cannula 2 PG Care Time/CCT Total # of Minutes Spent Total Time Spent with Patient: Total time spent is greater than 50% in coordination of care (as documented) at patient's floor/unit and/or counseling patient: Coding Level of Care Code 56698 SUB INP/OBS CARE 2/35MIN Diagnoses ESRD (end stage renal disease) N18.6 Ileus K56.7 Anemia N18.6; D63.1; Z99.2 Anemia type: due to chronic kidney disease Chronic kidney disease stage: on chronic dialysis Secondary hyperparathyroidism N25.81 (3) Anemia Anemia type: due to chronic kidney disease Chronic kidney disease stage: on chronic dialysis Qualified Code(s): N18.6 - End stage renal disease; D63.1 - Anemia in chronic kidney disease; Z99.2 - Dependence on renal dialysis
== END 2023-10-19 13:08 | DRG 871 ==
LOC: SUATTDRO → ED 14:39 → SUATTDRO 21:42 → EDINP 21:42 → 2S 22:56 → 3N 10-18 11:15

== ENCOUNTER 2024-08-30 11:35 | Inpatient (IN) ==
[2024-08-30 12:23] LABS: Base Excess VBG 7.2 mEq/L; HCO3 VBG 33 mmol/L; Oxygen Saturation VBG < 60.0 %; PCO2 VBG 51 mmHg (38-50); PO2 VBG 31 mmHg; pH VBG 7.42 (7.36-7.41)
--- NOTE | 2024-08-30 12:35 | XRay Report ---
XR chest 1V portable CLINICAL HISTORY: weakness COMPARISON STUDY: 10/15/2023 FINDINGS: The patient has a new right basilar airspace opacity and a small right pleural effusion. Ra diographic findings are otherwise stable. The heart remains enlarged. There is a left subclavian merritt ry stent in place. IMPRESSION: Right lower lobe pneumonia with a pleural effusion. Consider infection or aspiration. ACT 112: Negative or not required by law. Electronically signed by: Savannah Jaffe M.D. 08/30/2024 12:33 PM
--- NOTE | 2024-08-30 12:37 | Emergency Department Note ---
Impression & Plan RLL pneumonia, ESRD (end stage renal disease) on dialysis, Weakness ED Provider Note Provider: Kb Fitzgerald MD CHIEF COMPLAINT: Weakness HISTORY OF PRESENT ILLNESS: Patient is a 74-year-old gentleman past medical history of end-stage renal is on dialysis, CHF, paroxysmal atrial fibrillation, GERD, COPD, cirrhosis presenting here today via ambulance from [facility] where he resides. Patient evidently last week diagnosed with influenza. Has had worsening weakness and decreased intake. Is on a fluid striction. Fluid overload he is not experiencing swelling but staff are concerned that he was more lethargic and weak today. No falls. Had dialysis on Wednesday as scheduled but did not have it today as he was not well for it by staff report. Patient denies significant pain. Denies confusion. Patient does endorse generalized weakness. Some chronic shortness of breath he reports is not that worse. Patient is reportedly supposed to use oxygen 2 L regularly but he is noncompliant with this. PAST MEDICAL HISTORY: As noted above MEDICATIONS: Reviewed medication list SOCIAL HISTORY: Resides in nursing facility, former smoker PHYSICAL EXAM: GENERAL: alert and oriented in no acute distress on stretcher somewhat fatigued in appearance Head: normocephalic and atraumatic EYES: No injection, discharge or icterus. PERRL, EOMI. NECK: Trachea midline. ENT: Mucous membranes pink and moist. LUNGS: Airway patent. No retractions. Breath sounds clear with good air entry bilaterally. HEART: Regular rate and rhythm. No chest wall tenderness ABDOMEN: Soft and non-tender, without guarding or rebound. BACK: No midline tenderness, no SI joint tenderness. No bilateral flank tenderness. No significant wounds noted. SKIN: Acyanotic, warm, dry, without rashes EXTREMITIES: Without tenderness or deformity stockings in place without severe swelling of the lower extremities noted. Fistula in the left upper arm appreciable. NEUROLOGICAL: No focal deficits moving all extremities. No aphasia. No facial droop or slurred speech. EK bpm normal sinus rhythm. Some baseline artifact but no clear acute ST segment elevation or depression with a QTc of 509. CONTINUOUS CARDIAC MONITORING: was ordered and showed a heart rate of 60s to 70s bpm in normal sinus rhythm Patient's laboratory studies and imaging reviewed. Differential includes Infection, dehydration, metabolic abnormality, hypo/hyperglycemia, electrolyte disturbance, anemia, hypoxia, cardiac sources, intracerebral event, toxicologic, neurologic, as well as other pathologies. IMPRESSION/MEDICAL DECISION MAKING: Patient evidently with the flu increasing weakness decreased intake. Since reported to be somewhat lethargic this morning although answering questions seemingly appropriate here. No focal deficits. Doubt CVA. No trauma. Patient without leukocytosis minimal anemia. No severe hypercarbia or acidosis noted. No elevated lactate. Chest x-ray does show concern for a right lower lobe pneumonia with effusion. Patient with elevated BUN and creatinine but not severely elevated BUN; doubt he is uremic. No evidence of significantly elevated troponin today concerning for ACS. No significant transaminitis. No hyperkalemia noted. Do not believe he needs emergent dialysis today. Procalcitonin is noted be elevated at 0.86. Covered with a dose of ceftriaxone here initially and an oral dose of doxycycline with concerns for pneumonia. Respiratory viral panel completed and negative today. Discussed with patient's daughter at bedside. Recommend further care and admission here. Hospitalist team has been contacted. DIAGNOSIS: Right lower lobe pneumonia, weakness, influenza DISPOSITION: Hospitalist will evaluate Patient was agreeable with this plan. Past Med/Surg History Problem List (Updated 08/30/24 @ 14:19 by Kb Fitzgerald M.D.) Weakness (Acute) RLL pneumonia (Acute) Pleural effusion Melena ESRD (end stage renal disease) (Acute) UGIB (upper gastrointestinal bleed) (Acute) AMS (altered mental status) (Acute) Ileus (Acute) Physician orders for life-sustaining treatment (POLST) form indicates patient wish for [id number] status (Acute) Alzheimer disease (Chronic) progressive decline September 2023 with worsening cognitive function. MoCA testing done patient scored 6/30/test is scanned in EMR. HE IS NOT DECISIONALLY COMPETENT. HIS MEDICAL POA IS DAUGHTER DARION HDEZ AND HIS LEGAL/FINANCIAL POA IS GRAND DAUGHTER KIMMIE LUNA WHO WORKS HERE AT [facility]. Chronic GERD CHF (congestive heart failure) PAF (paroxysmal atrial fibrillation) ESRD on dialysis (Acute) Encounter for pre-operative examination Anasarca Chronic respiratory failure with hypoxia Small bowel obstruction Transitional cell carcinoma Anemia (Acute) ESRD (end stage renal disease) on dialysis (Acute) CKD (chronic kidney disease) (Acute) SIRS (systemic inflammatory response syndrome) (Acute) COVID-19 (Acute) Abdominal pain determined by examination High anion gap metabolic acidosis Asterixis Secondary hyperparathyroidism Ambulatory dysfunction Pain of scalp (Acute) ESRD on dialysis (Acute) AMS (altered mental status) (Acute) Pulmonary nodules Hypocalcemia Colon cancer screening Tremor Debility Abnormal EKG Metabolic encephalopathy Tremor Fall Chest pain (Acute) Hypoxia (Acute) Multifocal pneumonia Productive cough COPD exacerbation Hypoxia Marijuana smoker Current smoker History of pneumonia Pulmonary emphysema Back pain Hypomagnesemia PNA (pneumonia) (Acute) DVT prophylaxis Hypokalemia Tobacco use disorder PTSD (post-traumatic stress disorder) Fall Paroxysmal atrial flutter Bladder mass Cirrhosis of liver Ascites (Acute) HTN (hypertension) Polycystic kidney disease, adult type (Chronic 09/03/12) Benign prostate hyperplasia (Chronic) Intracranial hemorrhage 2012 Anemia COPD (chronic obstructive pulmonary disease) (Chronic) FORMER HEAVY SMOKER, OXYGEN DEPENDENT History of cerebral aneurysm repair 2012 [facility] [place]--clip in place; clip IS MRI COMPATIBLE Hx of atrial flutter 06/2021, hospitalized w/pneumonia for almost 3 weeks; dx atrial flutter- currently amiodarone; f/u dr. [place], [place] Seizure disorder Confusion Medical History Acute on chronic hypoxic respiratory failure Sepsis Multifocal pneumonia Acute hypoxemic respiratory failure Generalized weakness Abdominal ascites Acute respiratory failure with hypoxia Palliative care by specialist Discussion about advance care planning held with family member Cognitive impairment Dementia with behavioral disturbance Dyspnea and respiratory abnormalities History of home oxygen therapy Limb alert care status AV fistula Hx MRSA infection Hx of chest pain Alcoholic cirrhosis of liver with ascites Abnormal levels of other serum enzymes Gastrointestinal hemorrhage, unspecified End stage renal disease Unspecified intestinal obstruction, unspecified as to partial versus complete obstruction Chronic respiratory failure with hypoxia Insomnia Unspecified abnormalities of gait and mobility Low back pain, unspecified Unspecified fall, initial encounter Pain in unspecified wrist Fluid overload Acute respiratory failure with hypoxia Metabolic encephalopathy Epilepsy, unspecified, intractable, without status epilepticus Ruptured middle cerebral artery aneurysm Myoclonic jerking Bradycardia History of marijuana use Vitamin D deficiency Hypercalcemia Diverticulosis Gout Tremor of both hands Hypertension On home oxygen therapy Low back pain Hemorrhoids Benign neoplasm of skin of nose Secondary hyperparathyroidism (of renal origin) Surgical History Hx of right cataract extraction S/P dialysis catheter insertion History of esophagogastroduodenoscopy (EGD) Hx of cardiac cath History of abdominal paracentesis Status post creation of arteriovenous fistula History of colonoscopy History of tooth extraction Family History Mother Cancer Father No problems noted. Other No family history of adverse response to anesthesia Denies family history of Myocardial infarction Social History Smoking Status: Former smoker Tobacco Type: Cigarettes Age Started Using Tobacco: 16; Age Quit Using Tobacco: 71; packs per day: 1; Cigarettes Per Day: 1 pack; Second Hand Exposure: No; Do You Dip or Chew Tobacco: No; Hx Alcohol Use: No Hx Substance Use: No Preferred Language: Tongan Communication Ability: Effective Communication Ability Comment: "able to sign own consents" [employer] Required: No Beliefs That Will Affect Care: None marital status: Single Current Living Situation: Family Current Living Situation Comment: [facility] How many Children do You have: 1 Feels Safe at Home: Yes Assistive Devices: Oxygen - Continuous and Wheelchair Allergies Allergies Allergy/AdvReac Type Severity Reaction Status Date / Time lisinopril AdvReac Intermediate COUGH Verified 04/13/24 10:50 Home Meds Home Medications Medication Instructions Recorded Confirmed cinacalcet 30 mg tablet (Sensipar) 30 mg PO QAM 03/27/22 08/30/24 epinephrine 0.3 mg/0.3 mL 0.3 mg IM Q4H PRN Anaphylaxis 08/29/22 08/30/24 injection, auto-injector (EpiPen) ipratropium 0.5 mg-albuterol 3 mg 3 ml inhalation Q4H PRN Shortness 08/29/22 08/30/24 (2.5 mg base)/3 mL nebulization Of Breath Or Wheezing soln amiodarone 200 mg tablet 200 mg PO QPM 11/17/22 08/30/24 divalproex 500 mg tablet,delayed 500 mg PO QAM 11/17/22 08/30/24 release cholecalciferol (vitamin D3) 125 5,000 unit PO QPM 01/05/23 08/30/24 mcg (5,000 unit) capsule thiamine HCl (vitamin B1) 100 mg 100 mg PO QAM 01/05/23 08/30/24 tablet guaifenesin 1,200 mg tablet, 1,200 mg PO BID PRN Congestion 02/18/23 08/30/24 extended release 12 hr (Mucinex) tramadol 50 mg tablet 50 mg PO Q6H PRN Pain, Moderate 02/18/23 08/30/24 trazodone 50 mg tablet 50 mg PO HS 02/18/23 08/30/24 famotidine 20 mg tablet 20 mg PO DIRECTED 04/27/23 08/30/24 melatonin 5 mg tablet 10 mg PO HS 04/27/23 08/30/24 vitamin B complex-vitamin C-folic 1 tab PO DAILY 06/18/23 08/30/24 acid 0.8 mg tablet ([place]-Ancelmo) acetaminophen 325 mg tablet 650 mg PO Q4H PRN PAIN/FEVER 08/31/23 08/30/24 ferric citrate 210 mg iron tablet 420 mg PO TIDM 08/31/23 08/30/24 (Auryxia) lidocaine-prilocaine 2.5 %-2.5 % 1 applic topical UD 08/31/23 08/30/24 topical cream ondansetron 4 mg disintegrating 4 mg PO Q6H PRN Nausea And Vomiting 08/31/23 08/30/24 tablet sodium zirconium cyclosilicate 5 5 g PO DIRECTED 08/31/23 08/30/24 gram oral powder packet (Lokelma) polyvinyl alcohol-povidone (PF) 1 drp OPB QID PRN Dry Eyes 09/26/23 08/30/24 1.4 %-0.6 % eye drops in a dropperette (Refresh Classic (PF)) protein supplement 30 ea PO BIDM 09/26/23 08/30/24 benzocaine 20 % mucosal gel 1 ea mucous membrane .Q2H PRN sore 08/30/24 08/30/24 gums bisacodyl 10 mg rectal suppository 10 mg AL DAILY PRN Constipation 08/30/24 08/30/24 bisacodyl 5 mg tablet 5 mg PO DAILY PRN Constipation 08/30/24 08/30/24 fluticasone propionate 50 2 spray intranasal HS 08/30/24 08/30/24 mcg/actuation nasal spray,suspension furosemide 40 mg tablet 80 mg PO BID 08/30/24 08/30/24 loratadine 10 mg tablet (Wal-itin) 10 mg PO .Q OTHER DAY 08/30/24 08/30/24 menthol 0.44 %-zinc oxide 20.6 % 1 applic topical .EVERY SHIFT 08/30/24 08/30/24 topical ointment (Calmoseptine) menthol 0.44 %-zinc oxide 20.6 % 1 applic topical QID PRN Other 08/30/24 08/30/24 topical ointment (Calmoseptine) midodrine 2.5 mg tablet 5 mg PO UD 08/30/24 08/30/24 midodrine 2.5 mg tablet 7.5 mg PO .TUES,THURS,SAT,SUN 08/30/24 08/30/24 oseltamivir 30 mg capsule (Tamiflu) 30 mg PO .MON,WED,Wed08/30/24 08/30/24 polyethylene glycol 3350 17 17 g PO DAILY Constipation 08/30/24 08/30/24 gram/dose oral powder (Miralax) Previous Rx's Medication Instructions Recorded tiotropium 2.5 mcg-olodaterol 2.5 2 puff inhalation QAM #4 grams 02/18/21 mcg/actuation mist for inhalation (Stiolto Respimat) Results & Data (ED) Vital Signs Vital Signs - 24 hr 08/30/24 12:19 08/30/24 12:29 08/30/24 13:24 Temperature 36.4 C L Temperature Source Oral Pulse Rate 61 Pulse Rate [Apical] Respiratory Rate 22 Blood Pressure 174/78 H Blood Pressure [Right Arm] Blood Pressure Mean 110 Blood Pressure Mean [Right Arm] Pulse Oximetry 95 94 97 Oxygen Delivery Method Nasal Cannula Room Air Nasal Cannula Oxygen Flow Rate 4 4 Sepsis Recent Fever Within 48 Hours No Sepsis New/Unexplained Change in Mental Status N/A Sepsis Action Taken by Nursing No Action Required 08/30/24 13:24 Temperature Temperature Source Pulse Rate Pulse Rate [Apical] 59 L Respiratory Rate 15 Blood Pressure Blood Pressure [Right Arm] 111/56 L Blood Pressure Mean Blood Pressure Mean [Right Arm] 74 Pulse Oximetry 97 Oxygen Delivery Method Nasal Cannula Oxygen Flow Rate 4 Sepsis Recent Fever Within 48 Hours Sepsis New/Unexplained Change in Mental Status Sepsis Action Taken by Nursing Laboratory Data 08/30/24 11:52 08/30/24 11:52 Lab Results 08/30/24 08/30/24 08/30/24 Range/Units 11:52 12:20 12:28 WBC 6.91 (4.8-10.8) K/ul RBC 4.11 L (4.70-6.10) M/uL Hgb 12.6 L (14.0-18.0) g/dl Hct 38.1 L (42.0-52.0) % MCV 92.7 (80.0-100.0) fL MCH 30.7 (25.0-34.0) pg MCHC 33.1 (32.0-36.0) g/dL RDW Std Deviation 49.2 H (36.4-46.3) fL RDW Coeff of Giovana 14.6 H (11.5-14.5) % Plt Count 234 (130-400) K/uL MPV 10.5 (9.4-12.4) fL Immature Gran % (Auto) 3.0 % Neut % (Auto) 69.5 % Lymph % (Auto) 11.3 % Door % (Auto) 12.2 % Eos % (Auto) 3.0 % Baso % (Auto) 1.0 % Neut # (Auto) 4.80 (1.40-6.50) K/uL Lymph # (Auto) 0.78 L (1.20-3.40) K/uL Door # (Auto) 0.84 H (0.11-0.59) K/uL Eos # (Auto) 0.21 (0.00-0.50) K/uL Baso # (Auto) 0.07 (0.00-0.20) K/uL Immature Gran # (Auto) 0.21 H (0.01-0.20) K/uL PT 10.7 (9.0-12.0) Seconds INR 1.0 (0.9-1.1) VBG pH 7.42 H (7.36-7.41) VBG pCO2 51 H (38-50) mmHg VBG pO2 31 mmHg VBG HCO3 33 mmol/L VBG O2 Saturation < 60.0 % VBG Base Excess 7.2 mEq/L Sodium 137 (136-145) mmol/L Potassium 4.4 (3.5-5.1) mmol/L Chloride 96 L (98-107) mmol/L Carbon Dioxide 33 H (21-32) mmol/L Anion Gap 8 (3-11) BUN 47 H (6-23) mg/dl Creatinine 9.06 H* (0.6-1.4) mg/dl Est Cr Clr Drug Dosing 7.6 ml/min eGFR 5.61 BUN/Creatinine Ratio 5.2 L (10-20) Glucose 105 H (70-99(Fasting)) mg/dl Lactate 0.8 (0.4-2.0) mmol/L Calcium 10.2 (8.6-10.3) mg/dl Magnesium 2.4 (1.7-2.4) mg/dl Total Bilirubin 0.7 (0.2-1.0) mg/dl AST 15 (13-39) U/L ALT 10 (7-52) U/L Alkaline Phosphatase 53 (34-104) U/L Total Creatine Kinase 13 L (30-223) U/L Troponin I High Sens 21.9 H (0-20) pg/ml Total Protein 6.4 (6.0-8.3) gm/dl Albumin 3.5 (3.4-5.0) gm/dl Globulin 2.9 (2.5-4.0) gm/dl Albumin/Globulin Ratio 1.2 (0.9-2) Procalcitonin 0.86 H (0-0.5) ng/ml TSH 1.482 (0.300-4.500) uIu/ml Adenovirus (PCR) Not Detected (NotDetected) B. pertussis DNA (PCR) Not Detected (NotDetected) B.parapertussis DNA PCR Not Detected (NotDetected) C. pneumoniae DNA (PCR) Not Detected (NotDetected) Coronavirus OC43 (PCR) Not Detected (NotDetected) Coronavirus HKU1 (PCR) Not Detected (NotDetected) Coronavirus 229E (PCR) Not Detected (NotDetected) SARS-CoV-2 (PCR) Not Detected (NotDetected) Coronavirus NL63 (PCR) Not Detected (NotDetected) Human Metapneumovir PCR Not Detected (NotDetected) Influenza Type A (PCR) Not Detected (NotDetected) Influenza Type B (PCR) Not Detected (NotDetected) M. pneumoniae (PCR) Not Detected (NotDetected) Parainfluenza 1 (PCR) Not Detected (NotDetected) Parainfluenza 2 (PCR) Not Detected (NotDetected) Parainfluenza 3 (PCR) Not Detected (NotDetected) Parainfluenza 4 (PCR) Not Detected (NotDetected) RSV (PCR) Not Detected (NotDetected) Entero/Rhino (PCR) Not Detected (NotDetected) Administered Medications Discontinued Medications Doxycycline Hyclate (Doxycycline Hyclate 100 Mg Cap) 100 mg PO NOW STA Stop: 08/30/24 13:19 Last Admin: 08/30/24 14:12 Dose: 100 mg Documented By: JAMAL Ceftriaxone Sodium (Rocephin) 2,000 mg in 50 mls @ 100 mls/hr IV NOW STA Stop: 08/30/24 13:47 Last Admin: 08/30/24 14:13 Dose: 100 mls/hr Documented By: JAMAL Imaging Data Radiologist's Impression: Chest X-Ray 08/30/24 11:59 XR chest 1V portable CLINICAL HISTORY: weakness COMPARISON STUDY: 10/15/2023 FINDINGS: The patient has a new right basilar airspace opacity and a small right pleural effusion. Radiographic findings are otherwise stable. The heart remains enlarged. There is a left subclavian artery stent in place. IMPRESSION: Right lower lobe pneumonia with a pleural effusion. Consider infection or aspiration. ACT 112: Negative or not required by law. Electronically signed by: Savannah Jaffe M.D. 08/30/2024 12:33 PM Discharge Plan Visit Data Chief Complaint: Weakness ED Provider: Kb Fitzgerald Discharge Problem: RLL pneumonia, ESRD (end stage renal disease) on dialysis, Weakness Patient Disposition: Being Evaluated by Hospitalist Forms Stand Alone Forms: My [facility] [employer] Prescriptions Prescriptions: No Action Stiolto Respimat 2.5-2.5 mcg/actuation mist 2 puff INH QAM Qty: 4 5RF ipratropium-albuterol 0.5 mg-3 mg(2.5 mg base)/3 mL solution for nebulization 3 ml INHALATION Q4H PRN (Reason: Shortness Of Breath Or Wheezing) Rx Instructions: ALSO LOW 02 SATS epinephrine [EpiPen] 0.3 mg/0.3 mL Auto-Injector 0.3 mg IM Q4H PRN (Reason: Anaphylaxis) divalproex 500 mg tablet,delayed release (DR/EC) 500 mg PO QAM amiodarone 200 mg Tablet 200 mg PO QPM trazodone 50 mg Tablet 50 mg PO HS tramadol 50 mg Tablet 50 mg PO Q6H PRN (Reason: Pain, Moderate) guaifenesin [Mucinex] 1,200 mg Tablet Extended Release 12hr 1,200 mg PO BID PRN (Reason: Congestion) Trinidad-Ancelmo 0.8 mg Tablet 1 tab PO DAILY cinacalcet [Sensipar] 30 mg Tablet 30 mg PO QAM thiamine HCl (vitamin B1) 100 mg tablet 100 mg PO QAM cholecalciferol (vitamin D3) 125 mcg (5,000 unit) capsule 5,000 unit PO QPM Rx Instructions: after supper, if ok with dialysis famotidine 20 mg Tablet 20 mg PO DIRECTED Rx Instructions: TAKES DAILY ON WEDNESDAY, WEDNESDAY, & WEDNESDAY EVENING AFTER DIALYSIS. melatonin 5 mg Tablet 10 mg PO HS acetaminophen 325 mg Tablet 650 mg PO Q4H MDD 3 GRAMS APAP/24 HOURS PRN (Reason: PAIN/FEVER) lidocaine-prilocaine 2.5-2.5 % Cream 1 applic topical UD Rx Instructions: apply to fistula site 1 hour prior to dialysis, wed/wed/wed. ondansetron 4 mg Tablet,Disintegrating 4 mg PO Q6H PRN (Reason: Nausea And Vomiting) Lokelma 5 gram Powder In Packet 5 g PO DIRECTED Rx Instructions: every other day on NON-DIALYSIS days-//sat/sun. Auryxia 210 mg iron tablet 420 mg PO TIDM Rx Instructions: administer with a meal Refresh Classic (PF) 1.4-0.6 % Dropperette 1 drp OPB QID PRN (Reason: Dry Eyes) protein supplement Liquid 30 ea PO BIDM Rx Instructions: 30 ML BIDM bisacodyl 10 mg Suppository 10 mg AL DAILY PRN (Reason: Constipation) midodrine 2.5 mg Tablet 5 mg PO UD Rx Instructions: BID on wed,wed,wednesday midodrine 2.5 mg Tablet 7.5 mg PO .,,SAT,SUN Rx Instructions: 2.5mg x3 Orajel Maximum Strength 20 % Gel 1 ea MUCOUS MEMBRANE .Q2H PRN (Reason: sore gums) bisacodyl 5 mg Tablet 5 mg PO DAILY PRN (Reason: Constipation) Rx Instructions: give on morning of day 4 oseltamivir [Tamiflu] 30 mg Capsule 30 mg PO .MON,WED,WED Rx Instructions: until 09/01 menthol-zinc oxide [Calmoseptine] 0.44-20.6 % Ointment 1 applic TOPICAL QID PRN (Reason: Other) menthol-zinc oxide [Calmoseptine] 0.44-20.6 % Ointment 1 applic TOPICAL .EVERY SHIFT Rx Instructions: for 21 days furosemide 40 mg tablet 80 mg PO BID polyethylene glycol 3350 [Miralax] 17 gram/dose powder 17 g PO DAILY fluticasone propionate 50 mcg/actuation spray,suspension 2 spray intranasal HS Rx Instructions: administer into each nostril loratadine [Wal-itin] 10 mg tablet 10 mg PO .Q OTHER DAY Referrals Referrals: Maximo Taylor MD [Primary Care Provider] -
[2024-08-30 12:45] LABS: Basophils # (auto) 0.07 K/uL (0.00-0.20); Eosinophils # (auto) 0.21 K/uL (0.00-0.50); Hematocrit (blood only) 38.1 % (42.0-52.0); Hemoglobin 12.6 g/dl (14.0-18.0); Immature Granulocytes # (auto) 0.21 K/uL (0.01-0.20); Lymphocytes # (auto) 0.78 K/uL (1.20-3.40); Lymphocytes % (auto) 11.3 %; Mean Corpuscular Hemoglobin 30.7 pg (25.0-34.0); Mean Corpuscular Hgb Conc 33.1 g/dL (32.0-36.0); Mean Corpuscular Volume 92.7 fL (80.0-100.0); Mean Platelet Volume 10.5 fL (9.4-12.4); Monocytes # (auto) 0.84 K/uL (0.11-0.59); Monocytes % (auto) 12.2 %; Neutrophils % (auto) 69.5 %; Platelet Count 234 K/uL (130-400); RDW Coefficient of Variation 14.6 % (11.5-14.5); RDW Standard Deviation 49.2 fL (36.4-46.3); Red Blood Count 4.11 M/uL (4.70-6.10); White Blood Count 6.91 K/ul (4.8-10.8)
[2024-08-30 13:06] LABS: Albumin Globulin Ratio 1.2 (0.9-2); Albumin Level 3.5 gm/dl (3.4-5.0); BUN Creatinine Ratio 5.2 (10-20); Bilirubin,Total 0.7 mg/dl (0.2-1.0); Calcium 10.2 mg/dl (8.6-10.3); Creatinine Clr Calc Pharmacy 7.6 ml/min; Globulin 2.9 gm/dl (2.5-4.0); Magnesium 2.4 mg/dl (1.7-2.4); Potassium 4.4 mmol/L (3.5-5.1); Prothrombin Time 10.7 Seconds (9.0-12.0); Total Protein 6.4 gm/dl (6.0-8.3); Troponin I High Sensitivity 21.9 pg/ml (0-20)
[2024-08-30 13:14] LABS: Thyroid Stimulating Hormone 1.482 uIu/ml (0.300-4.500)
--- NOTE | 2024-08-30 13:37 | History & Physical Report ---
Date of Service August 30, 2024 Assessment & Plan (1) RLL pneumonia: (2) Chronic respiratory failure with hypoxia: (3) Influenza A: (4) COPD (chronic obstructive pulmonary disease): (5) ESRD on dialysis: Plan Sisi presented on 08/30 after he was too confused and weak to attend his dialysis session that day. Pneumonia on arrival. Also, patient is currently on Tamiflu for influenza A infection. H/o sepsis + aspiration pneumonia. Admission + IV antibiotics for now. #RLL pneumonia superimposed on flu CXR revealed a RLL pneumonia No leukocytosis; afebrile on arrival Mildly elevated procalcitonin at 0.86 on arrival Lactate WNL VB.42/51/31/33 Blood cultures drawn in the ED MRSA swab and sputum culture ordered, pending Ceftriaxone 2000 mg IV q24h Doxycycline 100 mg p.o. BID Guaifenesin 1200 mg p.o. BID for cough DuoNeb 3 mL Q6R PRN for wheezing Incentive spirometry, flutter valve #Chronic hypoxic respiratory failure Patient reports he is chronically on supplemental oxygen at baseline (2-4 L NC) Titrate supplemental oxygen as needed to maintain SpO2 89 to 92% Continuous pulse oximetry #Influenza A Patient was recently diagnosed with influenza; started on Tamiflu 30 mg p.o. //F on 08/25 While patient tested negative on arrival on 08/30, will continue with droplet isolation precautions for now Supportive care Discontinue current Tamiflu Rx; set to complete on 09/01 Tamiflu 30 mg p.o. x 1 on the morning of 08/31 after dialysis #ESRD on HD // Nephrology consult appreciated Most recent dialysis session was on Monday 08/28; missed Wednesday 08/30 Will plan on dialysis the morning of 08/31 Renal dialysis diet Continue Nephrocaps and Sensipar Midodrine 5 mg p.o. BID on dialysis days Midodrine 7.5 mg p.o. daily on nondialysis days Lokelma 5 g on nondialysis days #HFpEF Last echocardiogram on 04/28/2023 revealed LVEF at 55-60% Will hold Lasix temporarily in the setting of poor kidney function Daily weights Strict I&O monitoring Chronic stable conditions: #COPD - Continue home inhalers #PAF - Rate controlled, continue amiodarone #Seizure disorder - Continue Depakote Disposition: Admit to PCU telemetry Conditional Code - NO CPR, NO INTUBATION VTE PPx: SCDs History of Present Illness Chief Complaint: Weakness, confusion Primary Care Provider: Maximo Taylor MD Sisi is a 74-year-old male with PMH of ESRD on dialysis M/W/F, chronic hypoxic respiratory failure, COPD, upper GI bleed, Alzheimer's disease, CHF, PAF, and multiple pneumonia. He presented via EMS on 08/30 for weakness x 2 days. Patient recently tested positive for influenza and is currently on Tamiflu (Rx started on 08/25; dialysis dosing). Patient was reportedly confused this morning, and too weak to make it to dialysis today. He denies any SOB at rest or with exertion, but does endorse productive cough (yellow sputum production) x 2 weeks. He reports that he has been around many sick people at [facility] recently. He ambulates with a walker at baseline. Patient reports he took his regular morning medicine today; he is unsure of any recent medications were changed as they are managed by [facility]. Patient is a former tobacco cigarette smoker of 50 years, but quit in 2019. Patient sleeps in a recliner at baseline. Patient denies any recent aspiration events, or difficulty swallowing. Patient is mildly hypotensive at 111/56 at time of admission; SpO2 97% on 4L NC. ED course: Ceftriaxone 2000 mg IV Doxycycline 100 mg p.o. ROS: Patient endorses generalized fatigue, confusion, productive cough (yellow sputum production) x 2 weeks, and dark stool (patient reports this is chronic/unchanged; not currently on blood thinners, but may be on iron supplements) Patient denies fever, chills, night sweats, dizziness, lightheadedness, headache, chest pain, chest palpitations, SOB at rest, dyspnea on exertion, orthopnea, pleuritic CP, hemoptysis, abdominal pain, N/V/D, changes in urinary bowel habits, or redness/swelling in the legs. Per review of packet sent over from [facility], patient was eating breakfast this morning, and appeared confused according to staff. He was unable to follow commands to get dressed on his own, and he missed his dialysis session today. He denied any pain at that time. Patient was diagnosed with influenza A last week and is on dialysis dosing of Tamiflu; staff thought this could possibly be contributing to his weakness. Allergies Allergy/AdvReac Type Severity Reaction Status Date / Time lisinopril AdvReac Intermediate COUGH Verified 04/13/24 10:50 Home Medications Medication Instructions Recorded Confirmed Type tiotropium 2.5 mcg-olodaterol 2.5 2 puff inhalation QAM #4 grams 02/18/21 08/30/24 Rx mcg/actuation mist for inhalation (Stiolto Respimat) cinacalcet 30 mg tablet (Sensipar) 30 mg PO QAM 03/27/22 08/30/24 History epinephrine 0.3 mg/0.3 mL 0.3 mg IM Q4H PRN Anaphylaxis 08/29/22 08/30/24 History injection, auto-injector (EpiPen) ipratropium 0.5 mg-albuterol 3 mg 3 ml inhalation Q4H PRN Shortness 08/29/22 08/30/24 History (2.5 mg base)/3 mL nebulization Of Breath Or Wheezing soln amiodarone 200 mg tablet 200 mg PO QPM 11/17/22 08/30/24 History divalproex 500 mg tablet,delayed 500 mg PO QAM 11/17/22 08/30/24 History release cholecalciferol (vitamin D3) 125 5,000 unit PO QPM 01/05/23 08/30/24 History mcg (5,000 unit) capsule thiamine HCl (vitamin B1) 100 mg 100 mg PO QAM 01/05/23 08/30/24 History tablet guaifenesin 1,200 mg tablet, 1,200 mg PO BID PRN Congestion 02/18/23 08/30/24 History extended release 12 hr (Mucinex) tramadol 50 mg tablet 50 mg PO Q6H PRN Pain, Moderate 02/18/23 08/30/24 History trazodone 50 mg tablet 50 mg PO HS 02/18/23 08/30/24 History famotidine 20 mg tablet 20 mg PO DIRECTED 04/27/23 08/30/24 History melatonin 5 mg tablet 10 mg PO HS 04/27/23 08/30/24 History vitamin B complex-vitamin C-folic 1 tab PO DAILY 06/18/23 08/30/24 History acid 0.8 mg tablet ([place]-Ancelmo) acetaminophen 325 mg tablet 650 mg PO Q4H PRN PAIN/FEVER 08/31/23 08/30/24 History ferric citrate 210 mg iron tablet 420 mg PO TIDM 08/31/23 08/30/24 History (Auryxia) lidocaine-prilocaine 2.5 %-2.5 % 1 applic topical UD 08/31/23 08/30/24 History topical cream ondansetron 4 mg disintegrating 4 mg PO Q6H PRN Nausea And Vomiting 08/31/23 08/30/24 History tablet sodium zirconium cyclosilicate 5 5 g PO DIRECTED 08/31/23 08/30/24 History gram oral powder packet (Lokelma) polyvinyl alcohol-povidone (PF) 1 drp OPB QID PRN Dry Eyes 09/26/23 08/30/24 History 1.4 %-0.6 % eye drops in a dropperette (Refresh Classic (PF)) protein supplement 30 ea PO BIDM 09/26/23 08/30/24 History benzocaine 20 % mucosal gel 1 ea mucous membrane .Q2H PRN sore 08/30/24 08/30/24 History gums bisacodyl 10 mg rectal suppository 10 mg WV DAILY PRN Constipation 08/30/24 08/30/24 History bisacodyl 5 mg tablet 5 mg PO DAILY PRN Constipation 08/30/24 08/30/24 History fluticasone propionate 50 2 spray intranasal HS 08/30/24 08/30/24 History mcg/actuation nasal spray,suspension furosemide 40 mg tablet 80 mg PO BID 08/30/24 08/30/24 History loratadine 10 mg tablet (Wal-itin) 10 mg PO .Q OTHER DAY 08/30/24 08/30/24 History menthol 0.44 %-zinc oxide 20.6 % 1 applic topical .EVERY SHIFT 08/30/24 08/30/24 History topical ointment (Calmoseptine) menthol 0.44 %-zinc oxide 20.6 % 1 applic topical QID PRN Other 08/30/24 08/30/24 History topical ointment (Calmoseptine) midodrine 2.5 mg tablet 5 mg PO UD 08/30/24 08/30/24 History midodrine 2.5 mg tablet 7.5 mg PO .TUES,THURS,SAT,SUN 08/30/24 08/30/24 History oseltamivir 30 mg capsule (Tamiflu) 30 mg PO .MON,WED,FRI 08/30/24 08/30/24 History polyethylene glycol 3350 17 17 g PO DAILY Constipation 08/30/24 08/30/24 History gram/dose oral powder (Miralax) Past Med/Surg History Problem List (Updated 08/30/24 @ 14:49 by Jef Contreras PA-C) Influenza A Weakness (Acute) RLL pneumonia (Acute) Pleural effusion Melena ESRD (end stage renal disease) (Acute) UGIB (upper gastrointestinal bleed) (Acute) AMS (altered mental status) (Acute) Ileus (Acute) Physician orders for life-sustaining treatment (POLST) form indicates patient wish for [id number] status (Acute) Alzheimer disease (Chronic) progressive decline September 2023 with worsening cognitive function. MoCA testing done patient scored 6/30/test is scanned in EMR. HE IS NOT DECISIONALLY COMPETENT. HIS MEDICAL POA IS DAUGHTER DARION HDEZ AND HIS LEGAL/FINANCIAL POA IS GRAND DAUGHTER KIMMIE LUNA WHO WORKS HERE AT [facility]. Chronic GERD CHF (congestive heart failure) PAF (paroxysmal atrial fibrillation) ESRD on dialysis (Acute) Encounter for pre-operative examination Anasarca Chronic respiratory failure with hypoxia Small bowel obstruction Transitional cell carcinoma Anemia (Acute) ESRD (end stage renal disease) on dialysis (Acute) CKD (chronic kidney disease) (Acute) SIRS (systemic inflammatory response syndrome) (Acute) COVID-19 (Acute) Abdominal pain determined by examination High anion gap metabolic acidosis Asterixis Secondary hyperparathyroidism Ambulatory dysfunction Pain of scalp (Acute) ESRD on dialysis (Acute) AMS (altered mental status) (Acute) Pulmonary nodules Hypocalcemia Colon cancer screening Tremor Debility Abnormal EKG Metabolic encephalopathy Tremor Fall Chest pain (Acute) Hypoxia (Acute) Multifocal pneumonia Productive cough COPD exacerbation Hypoxia Marijuana smoker Current smoker History of pneumonia Pulmonary emphysema Back pain Hypomagnesemia PNA (pneumonia) (Acute) DVT prophylaxis Hypokalemia Tobacco use disorder PTSD (post-traumatic stress disorder) Fall Paroxysmal atrial flutter Bladder mass Cirrhosis of liver Ascites (Acute) HTN (hypertension) Polycystic kidney disease, adult type (Chronic 09/03/12) Benign prostate hyperplasia (Chronic) Intracranial hemorrhage 2013 Anemia COPD (chronic obstructive pulmonary disease) (Chronic) FORMER HEAVY SMOKER, OXYGEN DEPENDENT History of cerebral aneurysm repair 2012 [facility] [place]--clip in place; clip IS MRI COMPATIBLE Hx of atrial flutter 06/2021, hospitalized w/pneumonia for almost 3 weeks; dx atrial flutter- currently amiodarone; f/u dr. overton, ct Seizure disorder Confusion Medical History Acute on chronic hypoxic respiratory failure Sepsis Multifocal pneumonia Acute hypoxemic respiratory failure Generalized weakness Abdominal ascites Acute respiratory failure with hypoxia Palliative care by specialist Discussion about advance care planning held with family member Cognitive impairment Dementia with behavioral disturbance Dyspnea and respiratory abnormalities History of home oxygen therapy Limb alert care status AV fistula Hx MRSA infection Hx of chest pain Alcoholic cirrhosis of liver with ascites Abnormal levels of other serum enzymes Gastrointestinal hemorrhage, unspecified End stage renal disease Unspecified intestinal obstruction, unspecified as to partial versus complete obstruction Chronic respiratory failure with hypoxia Insomnia Unspecified abnormalities of gait and mobility Low back pain, unspecified Unspecified fall, initial encounter Pain in unspecified wrist Fluid overload Acute respiratory failure with hypoxia Metabolic encephalopathy Epilepsy, unspecified, intractable, without status epilepticus Ruptured middle cerebral artery aneurysm Myoclonic jerking Bradycardia History of marijuana use Vitamin D deficiency Hypercalcemia Diverticulosis Gout Tremor of both hands Hypertension On home oxygen therapy Low back pain Hemorrhoids Benign neoplasm of skin of nose Secondary hyperparathyroidism (of renal origin) Surgical History Hx of right cataract extraction S/P dialysis catheter insertion History of esophagogastroduodenoscopy (EGD) Hx of cardiac cath History of abdominal paracentesis Status post creation of arteriovenous fistula History of colonoscopy History of tooth extraction Family History Mother Cancer Father No problems noted. Other No family history of adverse response to anesthesia Denies family history of Myocardial infarction Social History Smoking Status: Former smoker Tobacco Type: Cigarettes Age Started Using Tobacco: 16; Age Quit Using Tobacco: 71; packs per day: 1; Cigarettes Per Day: 1 pack; Second Hand Exposure: No; Do You Dip or Chew Tobacco: No; Hx Alcohol Use: No Hx Substance Use: No Preferred Language: Liberian Communication Ability: Effective Communication Ability Comment: "able to sign own consents" Event Executive Required: No Beliefs That Will Affect Care: None marital status: Single Current Living Situation: Family Current Living Situation Comment: L Claritzaclaudia Robert How many Children do You have: 1 Feels Safe at Home: Yes Assistive Devices: Oxygen - Continuous and Wheelchair Review of Systems Review of Systems: See HPI above Physical Exam Physical Exam: General: no acute distress; family at bedside; non-toxic appearing; frail appearing; cooperative; SpO2 97% on 4L NC HEENT: normocephalic, atraumatic; no scleral icterus; PERRLA; vision and hearing grossly intact Neck: supple; no lymphadenopathy; trachea midline Skin: warm, dry without signs of tenting; no cyanosis; no rashes, bruising, lesions, or erythema noted CV: chest wall NTP; RRR; S1/S2 normal; 2/6 systolic ejection murmur auscultated at the second ICS MCL; pulses intact and symmetric at radial, DP, and PT Lungs: no acute respiratory distress; symmetrical chest wall expansion; mild bibasilar crackles in the lower lung munson bilaterally ABD: Soft, NTP; BS present; no rebound/guarding; no distention MSK: no tics or fasciculations; no edema noted in the LEs b/l, nonerythematous Neuro: A&Ox3; normal mood and affect; fluent speech; no focal deficits; patient reports sensation is intact and symmetric in the lower extremities bilaterally Results & Data Results & Data Vital Signs (Past 12 Hours) Vital Signs Temp Pulse Pulse Resp BP BP Pulse Ox 08/30/24 13:24 59 L 15 111/56 L 97 08/30/24 13:24 97 08/30/24 12:29 94 08/30/24 12:19 36.4 C L 61 22 174/78 H 95 O2 Del Method O2 Flow Rate 08/30/24 13:24 Nasal Cannula 4 08/30/24 13:24 Nasal Cannula 4 08/30/24 12:29 Room Air 08/30/24 12:19 Nasal Cannula 4 Laboratory Results Abnormal lab results 08/30/24 Range/Units 11:52 RBC 4.11 L (4.70-6.10) M/uL Hgb 12.6 L (14.0-18.0) g/dl Hct 38.1 L (42.0-52.0) % RDW Std Deviation 49.2 H (36.4-46.3) fL RDW Coeff of Giovana 14.6 H (11.5-14.5) % Lymph # (Auto) 0.78 L (1.20-3.40) K/uL [place] # (Auto) 0.84 H (0.11-0.59) K/uL Immature Gran # (Auto) 0.21 H (0.01-0.20) K/uL VBG pH 7.42 H (7.36-7.41) VBG pCO2 51 H (38-50) mmHg Chloride 96 L (98-107) mmol/L Carbon Dioxide 33 H (21-32) mmol/L BUN 47 H (6-23) mg/dl Creatinine 9.06 H* (0.6-1.4) mg/dl BUN/Creatinine Ratio 5.2 L (10-20) Glucose 105 H (70-99(Fasting)) mg/dl Total Creatine Kinase 13 L (30-223) U/L Troponin I High Sens 21.9 H (0-20) pg/ml Procalcitonin 0.86 H (0-0.5) ng/ml Diagnostic Findings Chest X-Ray 08/30/24 11:59 XR chest 1V portable CLINICAL HISTORY: weakness COMPARISON STUDY: 10/15/2023 FINDINGS: The patient has a new right basilar airspace opacity and a small right pleural effusion. Radiographic findings are otherwise stable. The heart remains enlarged. There is a left subclavian artery stent in place. IMPRESSION: Right lower lobe pneumonia with a pleural effusion. Consider infection or aspiration. ACT 112: Negative or not required by law. Electronically signed by: Savannah Jaffe M.D. 08/30/2024 12:33 PM ECG Additional Comments: ECG revealed wide QRS rhythm at 61 bpm; QTc 509 (caution use of QT prolonging agents) Code Status & VTE Plan Code Status Conditional code (confirmed with both patient and patient's daughter/medical power of disability attorney at bedside; patient does not want CPR, mechanical ventilation, or artificial airway under any circumstances; he is okay with cardiac defibrillation, blood transfusions, and ICU as needed) VTE Prophylaxis Plan VTE Prophylaxis will be ordered: Yes Supervising Physician Co-Signing Physician Notes Patient seen and examined, chart reviewed, case discussed with Jef Contreras PA-C and I agree with the assessment and plan as above except as otherwise noted Labs and images reviewed At [facility], increased weakness, lethargy, and confusion. Could not get to dialysis today. CXR with evidence of RLL PNA. has had past hospitalization for pneumonia although none in the last several months patient was treated with Rocephin and Doxy for pneumonia. Nephrology was consulted, missed dialysis today but does not show evidence of acute critical volume overload or hyperkalemia requiring emergent dialysis. Anticipate dialysis tomorrow. Was diagnosed with flu a in the last week and has been on Tamiflu. Presentation is consistent with superimposed pneumonia following flu, his flu testing is now negative. Agree with treatment of pneumonia with Rocephin/Doxy. If not clinically progressing then could cover for anaerobes and switch to Unasyn versus Zosyn however feel his current coverage is appropriate for And denies recent aspiration events. MRSA nare is pending. Procalcitonin is elevated, does have a left shift Nontoxic, home oxygen requirements 2 to 4 L, currently on 4 L with O2 sats 98%. Can down titrate with goal oxygenation of approximately 89%. Do not hyperoxygenate due to hx COPD. VBG is with slight alkalemia with elevated pCO2 and elevated HCO3. Suggestive of chronic underlying metabolic alkalosis with relative acute hyperventilation/diminished respiratory CO2 compared to baseline. Comfortable at bedside, wondering when he will get a bed but no other acute concerns. Lungs are diminished but grossly clear Agree with above PG Care Time/CCT Total # of Minutes Spent Total Time Spent with Patient: Total time spent is greater than 50% in coordination of care (as documented) at patient's floor/unit and/or counseling patient: [place] [address] INT INP/OBS CARE 3/75MIN Patient Type Established History Comprehensive Exam Comprehensive Medical Decision Making High Complexity Diagnoses RLL pneumonia J18.9 Chronic respiratory failure with hypoxia J96.11 Influenza A J10.1 COPD (chronic obstructive pulmonary disease) J44.9 COPD type: unspecified COPD ESRD on dialysis N18.6; Z99.2 (4) COPD (chronic obstructive pulmonary disease) COPD type: unspecified COPD Qualified Code(s): J44.9 - Chronic obstructive pulmonary disease, unspecified
--- NOTE | 2024-08-30 13:52 | Nephrology Consultation ---
Date of Consultation August 30, 2024 Assessment & Plan (1) ESRD (end stage renal disease) on dialysis: (2) AMS (altered mental status): (3) Secondary hyperparathyroidism: (4) Ambulatory dysfunction: (5) Anemia: (6) PNA (pneumonia): (7) Pleural effusion: Plan 74 year-old gentlemen with ESRD secondary to polycystic kidney disease, on HD MWF at [facility]. Admitted with change in mental status, pneumonia and bilateral pleural effusion. Labs are within acceptable limit. Chest x-ray showing pneumonia, pulmonary congestion and pleural effusion. Started empirically on ceftriaxone and doxycycline. Volume status seems reasonable, blood pressure well-controlled. Electrolyte acceptable. Last dialysis was Wednesday and he is due for dialysis today. hemoglobin 12.5. --as volume status, blood pressure and electrolyte acceptable, we will plan for dialysis tomorrow as by that time we will be able to start him on dialysis it will be late in the evening. However, over next few hours if any concern for worsening respiratory status or volume overload, will dialyze tonight. --left arm nephrology precaution, continue on renal diet, dose medications for eGFR less than 10 --continue phosphate binder with meal, nephro caps and Sensipar Thanks for the consult. It was a pleasure to see Mr. Redmond. History of Present Illness Reason for Consultation: ESRD on HD History of Present Illness Sisi Redmond is a 74-year-old gentlemen with ESRD on HD, hypertension, polycystic kidney disease, cirrhosis of liver, admitted to the hospital with AMS and possible pneumonia. Nephrology consult was requested to manage dialysis while inpatient. EMR records including labs and imaging were reviewed in detail during patient's visit. His daughter and granddaughter was at bedside. Sisi was brought to ER this morning from [facility] with concern for changes in mental status. According to Mr. Redmond he did not notice anything any significant change from his baseline he denied any shortness of breath or chest pain. He felt that he was eating his breakfast this morning and he was slow to eat and he was told by the staff that he needs to go to ER. Vital sign has been stable on admission. Chest x-ray showed bilateral mild pleural effusion which has been chronic but noted to have right lower lobe possible infiltrate and concern for pneumonia. However, previously chest x-ray showed similar finding so he may have some atelectasis. He was diagnosed with influenza a week ago and received Tamiflu. He denied any fever or chills. He normally wears 2 L nasal cannula oxygen all the time, currently on 4 L nasal cannula oxygen, oxygen saturation 97%. Received ceftriaxone and doxycycline she was pending sputum culture. Hemoglobin 12.6, no leukocytosis. Electrolyte acceptable. His last dialysis was Wednesday and he was due for dialysis this morning. Has ESRD secondary to polycystic kidney disease, previously was on PD but transitioned to HD in January 2023, dialyzes MWF at [facility]. h/o repeated hyperkalemia, on 2 K bath and Lokelma on nondialysis days. Has complex past medical history including cirrhosis diagnosed over last 2 years, has been getting frequent large-volume paracentesis, although did not require any paracentesis for last 1 year. Overall volume status improved significantly and has been stable. Diagnosis of bladder cancer in 2022, s/p Fulguration. 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 Prior history of smoking cigarettes and marijuana which he stopped few years ago. Was sitting in bed, was comfortable, talking in full sentence. Awake, alert and oriented, no confusion. Denied any symptoms. Reports feeling hungry. Allergies Allergy/AdvReac Type Severity Reaction Status Date / Time lisinopril AdvReac Intermediate COUGH Verified 04/13/24 10:50 Home Medications Medication Instructions Recorded Confirmed Type tiotropium 2.5 mcg-olodaterol 2.5 2 puff inhalation QAM #4 grams 02/18/21 08/30/24 Rx mcg/actuation mist for inhalation (Stiolto Respimat) cinacalcet 30 mg tablet (Sensipar) 30 mg PO QAM 03/27/22 08/30/24 History epinephrine 0.3 mg/0.3 mL 0.3 mg IM Q4H PRN Anaphylaxis 08/29/22 08/30/24 History injection, auto-injector (EpiPen) ipratropium 0.5 mg-albuterol 3 mg 3 ml inhalation Q4H PRN Shortness 08/29/22 08/30/24 History (2.5 mg base)/3 mL nebulization Of Breath Or Wheezing soln amiodarone 200 mg tablet 200 mg PO QPM 11/17/22 08/30/24 History divalproex 500 mg tablet,delayed 500 mg PO QAM 11/17/22 08/30/24 History release cholecalciferol (vitamin D3) 125 5,000 unit PO QPM 01/05/23 08/30/24 History mcg (5,000 unit) capsule thiamine HCl (vitamin B1) 100 mg 100 mg PO QAM 01/05/23 08/30/24 History tablet guaifenesin 1,200 mg tablet, 1,200 mg PO BID PRN Congestion 02/18/23 08/30/24 History extended release 12 hr (Mucinex) tramadol 50 mg tablet 50 mg PO Q6H PRN Pain, Moderate 02/18/23 08/30/24 History trazodone 50 mg tablet 50 mg PO HS 02/18/23 08/30/24 History famotidine 20 mg tablet 20 mg PO DIRECTED 04/27/23 08/30/24 History melatonin 5 mg tablet 10 mg PO HS 04/27/23 08/30/24 History vitamin B complex-vitamin C-folic 1 tab PO DAILY 06/18/23 08/30/24 History acid 0.8 mg tablet ([place]-Ancelmo) acetaminophen 325 mg tablet 650 mg PO Q4H PRN PAIN/FEVER 08/31/23 08/30/24 History ferric citrate 210 mg iron tablet 420 mg PO TIDM 08/31/23 08/30/24 History (Auryxia) lidocaine-prilocaine 2.5 %-2.5 % 1 applic topical UD 08/31/23 08/30/24 History topical cream ondansetron 4 mg disintegrating 4 mg PO Q6H PRN Nausea And Vomiting 08/31/23 08/30/24 History tablet sodium zirconium cyclosilicate 5 5 g PO DIRECTED 08/31/23 08/30/24 History gram oral powder packet (Lokelma) polyvinyl alcohol-povidone (PF) 1 drp OPB QID PRN Dry Eyes 09/26/23 08/30/24 History 1.4 %-0.6 % eye drops in a dropperette (Refresh Classic (PF)) protein supplement 30 ea PO BIDM 09/26/23 08/30/24 History benzocaine 20 % mucosal gel 1 ea mucous membrane .Q2H PRN sore 08/30/24 08/30/24 History gums bisacodyl 10 mg rectal suppository 10 mg AL DAILY PRN Constipation 08/30/24 08/30/24 History bisacodyl 5 mg tablet 5 mg PO DAILY PRN Constipation 08/30/24 08/30/24 History fluticasone propionate 50 2 spray intranasal HS 08/30/24 08/30/24 History mcg/actuation nasal spray,suspension furosemide 40 mg tablet 80 mg PO BID 08/30/24 08/30/24 History loratadine 10 mg tablet (Wal-itin) 10 mg PO .Q OTHER DAY 08/30/24 08/30/24 History menthol 0.44 %-zinc oxide 20.6 % 1 applic topical .EVERY SHIFT 08/30/24 08/30/24 History topical ointment (Calmoseptine) menthol 0.44 %-zinc oxide 20.6 % 1 applic topical QID PRN Other 08/30/24 08/30/24 History topical ointment (Calmoseptine) midodrine 2.5 mg tablet 5 mg PO UD 08/30/24 08/30/24 History midodrine 2.5 mg tablet 7.5 mg PO .TUES,THURS,SAT,SUN 08/30/24 08/30/24 History oseltamivir 30 mg capsule (Tamiflu) 30 mg PO .MON,WED,FRI 08/30/24 08/30/24 History polyethylene glycol 3350 17 17 g PO DAILY Constipation 08/30/24 08/30/24 History gram/dose oral powder (Miralax) Patient History Medical History Acute on chronic hypoxic respiratory failure Sepsis Multifocal pneumonia Acute hypoxemic respiratory failure Generalized weakness Abdominal ascites Acute respiratory failure with hypoxia Palliative care by specialist Discussion about advance care planning held with family member Cognitive impairment Dementia with behavioral disturbance Dyspnea and respiratory abnormalities History of home oxygen therapy Limb alert care status AV fistula Hx MRSA infection Hx of chest pain Alcoholic cirrhosis of liver with ascites Abnormal levels of other serum enzymes Gastrointestinal hemorrhage, unspecified End stage renal disease Unspecified intestinal obstruction, unspecified as to partial versus complete obstruction Chronic respiratory failure with hypoxia Insomnia Unspecified abnormalities of gait and mobility Low back pain, unspecified Unspecified fall, initial encounter Pain in unspecified wrist Fluid overload Acute respiratory failure with hypoxia Metabolic encephalopathy Epilepsy, unspecified, intractable, without status epilepticus Ruptured middle cerebral artery aneurysm Myoclonic jerking Bradycardia History of marijuana use Vitamin D deficiency Hypercalcemia Diverticulosis Gout Tremor of both hands Hypertension On home oxygen therapy Low back pain Hemorrhoids Benign neoplasm of skin of nose Secondary hyperparathyroidism (of renal origin) Surgical History Hx of right cataract extraction S/P dialysis catheter insertion History of esophagogastroduodenoscopy (EGD) Hx of cardiac cath History of abdominal paracentesis Status post creation of arteriovenous fistula History of colonoscopy History of tooth extraction Family History Mother Cancer Father No problems noted. Other No family history of adverse response to anesthesia Denies family history of Myocardial infarction Social History Smoking Status: Former smoker Tobacco Type: Cigarettes Age Started Using Tobacco: 16; Age Quit Using Tobacco: 71; packs per day: 1; Cigarettes Per Day: 1 pack; Second Hand Exposure: No; Do You Dip or Chew Tobacco: No; Hx Alcohol Use: No Hx Substance Use: No Preferred Language: [place] Communication Ability: Effective Communication Ability Comment: "able to sign own consents" Sociocultural Anthropology Professor Required: No Beliefs That Will Affect Care: None marital status: Single Current Living Situation: Family Current Living Situation Comment: [facility] How many Children do You have: 1 Feels Safe at Home: Yes Assistive Devices: Oxygen - Continuous and Wheelchair Review of Systems Review of Systems: System was done and pertinent positives and negatives are mentioned above. Physical Exam Constitutional: WD/WN, vitals as above + ill appearing; no acute distress Eyes: + anicteric sclerae Neck: normal visual inspection Respiratory: no respiratory distress and no cough Cardiovascular: Rate/Rhythm: regular rate and regular rhythm Heart Sounds: normal S1 and normal S2 Extremities: no edema Gastrointestinal (Abdomen): Inspection/Auscultation: abdomen normal to inspection Percussion/Palpation: abdomen soft; abdomen nontender Musculoskeletal: Extremities: extremities normal to inspection Neurologic: no focal motor deficits Psychiatric: Orientation: alert and oriented x 3 Affect: euthymic affect Results & Data Vital Signs (Past 12 Hours) Vital Signs Temp Pulse Pulse Resp BP BP Pulse Ox 08/30/24 13:24 59 L 15 111/56 L 97 08/30/24 13:24 97 08/30/24 12:29 94 08/30/24 12:19 36.4 C L 61 22 174/78 H 95 O2 Del Method O2 Flow Rate 08/30/24 13:24 Nasal Cannula 4 08/30/24 13:24 Nasal Cannula 4 08/30/24 12:29 Room Air 08/30/24 12:19 Nasal Cannula 4 PG Care Time/CCT Total # of Minutes Spent Total Time Spent with Patient: Total time spent is greater than 50% in coordination of care (as documented) at patient's floor/unit and/or counseling patient: Coding Level of Care Code 60003 INT INP/OBS CARE MIN Diagnoses ESRD (end stage renal disease) on dialysis N18.6; Z99.2 AMS (altered mental status) R41.82 Secondary hyperparathyroidism N25.81 Ambulatory dysfunction R26.2 Anemia, unspecified type D64.9 Anemia type: unspecified type PNA (pneumonia) J18.9 Laterality: bilateral Lung location: unspecified part of lung Pneumonia type: due to unspecified organism Pleural effusion J90 (5) Anemia Anemia type: unspecified type Qualified Code(s): D64.9 - Anemia, unspecified (6) PNA (pneumonia) Laterality: bilateral Lung location: unspecified part of lung Pneumonia type: due to unspecified organism Qualified Code(s): J18.9 - Pneumonia, unspecified organism
[2024-08-30 13:54] LABS: Adenovirus PCR Not Detected (NotDetected); Bordetella parapertussis PCR Not Detected (NotDetected); Bordetella pertussis PCR Not Detected (NotDetected); Chlamydia pneumoniae PCR Not Detected (NotDetected); Coronavirus 229E PCR Not Detected (NotDetected); Coronavirus CoV-2 (COVID19)PCR Not Detected (NotDetected); Coronavirus HKU1 PCR Not Detected (NotDetected); Coronavirus NL63 PCR Not Detected (NotDetected); Coronavirus OC43PCR Not Detected (NotDetected); Human Metapneumovirus PCR Not Detected (NotDetected); Influenza A PCR Not Detected (NotDetected); Influenza B PCR Not Detected (NotDetected); Mycoplasma pneumoniae PCR Not Detected (NotDetected); Parainfluenza Virus 1 PCR Not Detected (NotDetected); Parainfluenza Virus 2 PCR Not Detected (NotDetected); Parainfluenza Virus 3 PCR Not Detected (NotDetected); Parainfluenza Virus 4 PCR Not Detected (NotDetected); Respiratory Syncytial VirusPCR Not Detected (NotDetected); Rhinovirus/Enterovirus PCR Not Detected (NotDetected)
[2024-08-30] MEDS: DOXYCYCLINE HYCLATE 100 MG CAP PO STA (14:12)
[2024-08-30] MEDS: cefTRIAXone SODIUM 2,000 MG/50 ML BAG IV STA (14:13)
[2024-08-30] MEDS ORDERED: bisacodyL 10 MG SUPP PR PRN (17:04)
[2024-08-30] MEDS ORDERED: NON-FORMULARY MEDICATION (Protein Supplement Liquid) PO SCH (17:04)
[2024-08-30] MEDS ORDERED: EPINEPHrine INJ 1 MG/ML AMP IM PRN (17:32)
--- OUTSIDE RECORDS SUMMARY | 2024-08-30 18:12 | External Medical Summary | Summary of Care ---
Author Name Unknown Organization [facility] Address [address] [place] [place] [address] Phone [phone] Care Team Providers Care Cutter Helper Name Role Phone Maximo Taylor MD Primary Care Provide r Reason for Visit * Reason Onset Date Comments Assisted Visit 08/29/2024 Encounter Details Date Type Department Care Team (Latest Contact Info) Description 08/29/2024 1:00 PM EDT Assisted Visit [facility] [address] [place] [address] Brianna Orozco PA-C [address] [place] [address] Fall, initial encounter*; Skin tear of left forearm without complication, initial encounter; Skin tear of right forearm without complication, initial encounter; Influenza A Allergies Active Allergy Reactions Criticality Noted Date Comments Lisinopril 04/09/2023 documented as of this encounter (statuses as of 08/29/2024) Medications Amiodarone HCl 200 MG Oral Tablet (Cordarone) Take 1 Tablet by mouth in the morning. 01/22/20 23 Active Auryxia 1 GM 210 MG(Fe) Oral Tablet (Ferric Citrate) Take 2 Tablets by mouth in the morning and 2 Tablets at noon and 2 Tablets in the evening. Take before meals. 01/22/20 23 Active Cinacalcet HCl 30 MG Oral Tablet (Sensipar) Take 1 Tablet by mouth in the morning. 01/22/20 Active Divalproex Sodium 500 MG Oral Tablet Delayed Release (Depakote DR) Take 1 Tablet by mouth in the morning. 01/22/20 Active EPINEPHrine 0.3 MG/0.3ML Injection Solution Prefilled Syringe Inject as directed. 01/22/20 Active Ipratropium-Albut lindy 0.5-2.5 (3) MG/3ML Inhalation Solution (Duoneb) Inhale 3 mL via nebulizer every 4 hours as needed for Wheezing. 01/22/20 Active Loratadine 10 MG Oral Tablet (Claritin) Take 1 Tablet by mouth every other day. 01/22/20 Active Melatonin 5 MG Oral Capsule Take 1 Capsule by mouth at bedtime. 01/22/20 Active Blanco Caps 1 MG Oral Capsule Take 1 Capsule by mouth in the morning. 01/22/20 Active Stiolto Respimat 2.5-2.5 MCG/ACT Inhalation Aerosol Solution (Tiotropium-Oloda terol) Inhale 2 Puffs by mouth in the morning. 01/22/20 Active Suplena 1.8/CarbSteady Oral Liquid 01/22/20 Active triamcinolone 0.1% in hydrophilic ointment 2:1 Apply topically to affected area 2 times a day. 01/22/20 Active Acetaminophen 325 MG Oral Tablet (Tylenol) Take 2 Tablets by mouth every 4 hours as needed for Fever >38C(100.5F), Pain, Mild, Pain, Moderate or Pain, Severe. 01/22/20 Active Vitamin B-1 100 MG Oral Tablet Take 1 Tablet by mouth in the morning. 01/22/20 Active Vitamin D3 125 MCG (5000 UT) Oral Capsule Take 1 Capsule by mouth in the morning. 01/22/20 Active Famotidine 20 MG Oral Tablet (Pepcid) Take 1 Tablet by mouth in the morning. 01/23/20 Active traZODone HCl 50 MG Oral Tablet (Desyrel) Take 1 Tablet by mouth at bedtime. 02/26/20 Active Albumin Human 25 % Intravenous SolutionIndicatio ns:Alcoholic cirrhosis of liver with ascites (HCC) 25Gm before and after paracentesis 100 mL 04/09/20 Active Sodium Zirconium Cyclosilicate 5 GM Oral Packet (Lokelma) 1 packet by mouth daily on non-dialysis days (Wednesday, , Sat and Sun 07/21/19 24 Active Furosemide 80 MG Oral Tablet (Lasix) Take 1 Tablet by mouth in the morning and 1 Tablet before bedtime. 11/17/19 24 Active Fluticasone Propionate 50 MCG/ACT Nasal Suspension (Flonase) Administer 2 Sprays into each nostril in the morning. 11/17/19 24 Active Docusate Sodium 100 MG Oral Capsule (Colace) Take 2 Capsules by mouth in the morning and 2 Capsules before bedtime. 01/24/20 24 Active Polyethylene Glycol 3350 17 GM/SCOOP Oral Powder (Miralax) Take 17 g by mouth in the morning. Dissolve one heaping tablespoon in 8 ounces of water or juice.. 01/24/20 24 Active Albumin Human 25 % Intravenous SolutionIndicatio ns:Alcoholic cirrhosis of liver with ascites (HCC) 25Gm before and after paracentesis 100 mL 03/27/20 24 Active traMADol HCl 50 MG Oral Tablet (Ultram) Take 1 Tablet by mouth every 6 hours as needed for Pain, Moderate or Pain, Severe. 12 Tablet 06/06/20 24 Active Midodrine HCl 5 MG Oral Tablet (Proamatine) Take 1 Tablet by mouth in the morning and 1 Tablet at noon and 1 Tablet in the evening. MWF. Active Ondansetron HCl 4 MG Oral Tablet (Zofran) Take 1 Tablet by mouth every 6 hours as needed for Nausea. Active Refresh 1.4-0.6 % Ophthalmic Solution (polyvinyl alcohol-povidone PF) 1 Drop as needed. Active documented as of this encounter (statuses as of 08/29/2024) Active Problems Problem Noted Date Diagnosed Date History of aspiration pneumonia 10/19/2023 Chronic HFrEF (heart failure with reduced ejection fraction) 10/14/2023 DNR (do not resuscitate) 10/01/2023 Moderate pulmonary hypertension 09/14/2023 Severe mitral regurgitation by prior echocardiog danielito 09/14/2023 Age-related cataract of both eyes 08/26/2023 Basal cell carcinoma (BCC) of skin of nose 07/21 Hx of nonmelanoma skin cancer 07/19/2023 Overview (07/19/2023): basal cell carcinoma (L nare 07/14) Secondary esophageal varices with bleeding 06/29 Hanna's esophagus without dysplasia 05/21/2023 Adenomatous duodenal polyp 05/21/2023 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 03/30/2023 Hypoxemia 03/29/2023 History of abdominal paracentesis 03/26/2023 A-V fistula 03/24/2023 Ascites due to alcoholic cirrhosis 02/17/2023 Renal [...] nontraumatic rupture of cerebral aneu rysm 01/21/2023 Overview (01/27/2023): 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 Polyp of ascending colon 01/21/2023 History of tobacco use 01/21/2023 Personal history of alcoholism 01/21/2023 Coarse tremors 01/21/2023 FX CORONOID PROC ULNA-CL 07/17/2005 DISLOCAT ELBOW NEC-CLOSE 07/17/2005 documented as of this encounter (statuses as of 08/29/2024) Resolved Problems Problem Noted Date Diagnosed Date Resolved Date SBO (small bowel obstruction) 10/19/2023 11/17/2023 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 11/17/2023 Full code status 01/21/2023 10/01/2023 documented as of this encounter (statuses as of 08/29/2024) Immunizations Name Administration Dates Next Due Seasonal Influenza, Quad, Nasal (Flumist) 2022 documented as of this encounter Social History Tobacco Use Types Packs/Day Years Used Date Smoking Tobacco: Former Cigarettes 1 55 1 967 - 2 Smokeless Tobacco: Never Alcohol Use Standard Drinks/Week Comments Not Currently 72 (1 standard drink = 0.6 oz pu re alcohol) Utilities Answer Date Recorded Do you have trouble paying y our heating, water, or electric bill? (Adult - for ages 18 years and over) Not on file 12/07/2023 Is your family able to pay t he heat, water, or electric bill? (Household - for ages 0-17 years) Not on file 12/07/2023 Does your family have access to good internet? (Household - for ages 0-17 years) Not on file 12/07/2023 Social Connections Answer Date Recorded How often do you feel lonely or isolated from those around you? (Adult - for ages 18 years and over) Not on file 12/07/2023 Sex and Gender Information Value Date Recorded Sex Assigned at Not on file Legal Sex Male 7:19 AM EST Gender Identity Not on file Sexual Orientation Not on file documented as of this encounter Progress Notes * Brianna Orozco PA-C - 08/29/2024 12:50 PM EDT Name: Sisi Redmond Date of :1950 TRANSITION EVENT: Type: Non-applicable Date: August 29 Code Status: No Code This note pertains to care provided at [facility]. Please see facility medical record for original note. This note is not to be edited or addended in [facility]. Editing or addending needs to occur in the facilities medical record. Subjective: Sisi Redmond is a 74 year old male. Patient being seen for two issues Chief Complaint Patient presents with Assisted Visit HPI: I was asked to assess pt for a fall which occurred this morning. Pt fell while in the bathroomscraping his both forearms sustaining skin tears. No head injury, dizziness, syncope. Cleansed and dressed but continues to bleed through right forearm skin tear. Pt diagnosed with Influenza A this past week. Treatment with Tamiflu. Pt recovering slowly. Less fatigue, achiness. Eating and sleeping at baseline. Breathing is stable. Afebrile. Vital signs stable. CBC Results: Results for orders placed or performed in visit on 07/11/24 CBC Result Value Ref Range WBC 5.76 4.00 - 10.80 K/uL RBC 4.34 4.50 - 5.25 M/uL HGB 13.5 (L) 14.0 - 16.8 g/dL HCT 41.8 40.0 - 48.4 % MCV 96.3 82.0 - 99.5 fL MCH 31.1 27.0 - 34.0 pg MCHC 32.3 32.0 - 36.0 g/dL RDW 15.1 11.5 - 15.5 % PLT 216 140 - 400 K/uL MPV 9.5 6.6 - 11.1 fL Hemoglobin Results: Lab Results Component Value Date/Time HGB 13.5 (L) 07/11/2024 08:33 AM HGB 13.2 (L) 06/16/2024 05:45 AM HGB 12.8 (L) 05/31/2024 06:04 AM HGB 13.1 (A) 10/14/2023 12:00 AM HGB 8.9 (A) 08/26/2023 12:00 AM HGB 9.2 (A) 08/10/2023 12:00 AM Basic Panel Results: Results for orders placed or performed in visit on 07/11/24 BASIC METABOLIC PANEL Result Value Ref Range BUN 38 (H) 6 - 20 mg/dL CREATININE 6.3 (H) 0.6 - 1.2 mg/dL EGFR 9 (L) >=60 mL/min SODIUM 134 (L) 135 - 146 mmol/L POTASSIUM 4.7 3.5 - 5.1 mmol/L CHLORIDE 92 (L) 98 - 107 mmol/L CO2 29 22 - 32 mmol/L ANION GAP 13 7 - 15 mmol/L GLUCOSE 118 70 - 120 mg/dL CALCIUM 9.6 8.4 - 10.2 mg/dL Creatinine Results: Lab Results Component Value Date/Time CREATININE - [facility] 6.3 (H) 07/11/2024 08:33 AM CREATININE - [facility] 9.2 (H) 02/14/2024 09:13 AM CREATININE - [facility] 7.2 (H) 01/12/2024 05:39 AM Potassium Results: Lab Results Component Value Date/Time POTASSIUM - [facility] 4.7 07/11/2024 08:33 AM POTASSIUM - [facility] 5.2 (H) 02/14/2024 09:13 AM POTASSIUM - [facility] 3.9 01/12/2024 05:39 AM Patient Active Problem List Diagnosis FX CORONOID PROC ULNA-CL DISLOCAT ELBOW NEC-CLOSE ESRD on dialysis (HCC) HTN, goal below 130/80 Iron deficiency anemia Slow transit constipation PTSD (post-traumatic stress disorder) COPD, moderate (HCC) Vitamin B1 deficiency Vitamin D deficiency Dry skin dermatitis Secondary hyperparathyroidism of renal origin (HCC) Polycystic renal disease PAF (paroxysmal atrial fibrillation) (HCC) Primary insomnia Pruritic condition 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 behavioral disturbance, psychotic disturbance, mood disturbance, or anxiety (HCC) BPH without obstruction/lower urinary tract symptoms Benign neoplasm of skin of nose Diverticulosis of large intestine without hemorrhage Chronic gout without tophus History of intracranial hemorrhage History of nontraumatic rupture of cerebral aneurysm Polyp of ascending colon History of tobacco use Personal history of alcoholism (HCC) Coarse tremors Protein-calorie malnutrition (HCC) Anemia in chronic kidney disease, on chronic dialysis (HCC) Ascites due to alcoholic cirrhosis (HCC) Renal artery stenosis (HCC) A-V fistula (HCC) History of abdominal paracentesis Hypoxemia 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) Hanna's esophagus without dysplasia Adenomatous duodenal polyp Secondary esophageal varices with bleeding (HCC) Hx of nonmelanoma skin cancer Basal cell carcinoma (BCC) of skin of nose Age-related cataract of both eyes Moderate pulmonary hypertension (HCC) Severe mitral regurgitation by prior echocardiogram DNR (do not resuscitate) Chronic HFrEF (heart failure with reduced ejection fraction) (HCC) History of aspiration pneumonia No past medical history on file. Past Surgical History: Procedure Laterality Date ADULT ECHOCARDIOGRAM 09/10/2023 moderate LVH wtih LVEF 65%, mild , moderate AI, severe MR, severe TR, moderate pulmonary HTN. [facility] BRAIN ANEURYSM REPR, SIMPLE 2013 MRI compatible brain aneurysm clip [facility] [place] COLONOSCOPY CYSTOSCOPY/BIOPSY 03/29/2023 cystoscopy, fulgaration of bladder lesion. Dr Reyna, [facility] IN[facility] removal of benign neoplasm nose MD COLSC FLX W/RMVL OF TUMOR POLYP LESION SNARE TQ four sessile polyps ascending colon and cecum. Nallely MD CREAT AV FISTULA,AUTOGENOUS GRAFT Left 03/23/2023 Dr. Eriberto Augustine TOOTH ROOT REMOVAL complete dental extraction UPPER GI ENDOSCOPY 05/20/2023 Barretts esophagus, duodenal polyp. Nallely Family History Problem Relation Name Age of Onset Cancer Mother Other (accidental) [...] date: 1966 Quit date: 2021 Years since quittin.1 Smokeless tobacco: Never Vaping Use Vaping status: Never Used Substance and Sexual Activity Alcohol use: Not Currently Alcohol/week: 72.0 standard drinks of alcohol Types: 72 12 oz of beer per week Drug use: Never Sexual activity: Not on file Other Topics Concern Not on file Social History Narrative Not on file Social Needs Financial Resource Strain: Not on file Food Insecurity: Not on file Transportation Needs: Not on file Social Connections: Unknown (12/07/2023) Social Connections How often do you feel lonely or isolated from those around you? (Adult - for ages 18 years and over): Not on file Housing Stability: Not on file Review of patient's allergies indicates: Allergen Reactions Lisinopril I have reviewed medications and allergies. Please refer to MAR in the facility's medical record forthe most up-to-date medication list as this cannot be edited in [facility]. Review of Systems: Constitutional ROS: No change [...] diarrhea, or constipation and No dysphagia Musculoskeletal/Extremities ROS: DJD Skin/Integumentary ROS: see HPI Neurologic ROS: No headaches and No seizures [...] Skin: skin color, texture, turgor are normal, clean skin tears right and left forearms. Right skin tear bleeding actively. ASSESSMENT: Fall, initial encounter (Primary) Safety precautions in place Skin tear of left forearm without complication, initial encounter Will continue current dressing Skin tear of right forearm without complication, initial encounter Will change dressing to adaptic and ABD for better absorption and will require less manipulation ofdressing Influenza A Clinically recovering Completed Tamifllu course Will follow PLAN: Reviewed labs and Continue present medication(s):as ordered. [facility] Given: Other as above Electronically signed by: Brianna Orozco PA-C Over 35 minutes were spent in this visit more than half the time was spent counselling or coordinating care. Cosigned by Cleveland Lucas DO at 08/29/2024 1:45 PM EDT Associated attestation - Cleveland Lucas DO - 08/29/2024 1:45 PM EDT I have reviewed the advanced practitioner's documentation on the date of service referenced in note, and I agree with, and take responsibility for the plan of care. documented in this encounter Plan of Treatment Upcoming Encounters Date Type Department Care Team (Late st Contact Info) Description 01/23/2025 1:40 PM EDT Office Visit Hepatology, [facility] [address] [address] Latoya Selby DO [address] [place] [address] Health Maintenance Due Date Last Done Comments Hanna's Esophagus Surveilance 1950 Depression Screening 1962 Cologuard 1995 Fecal Occult Blood Test 1995 Sigmoidoscopy 1995 AAA Screening 2015 Adult Wellness Visit 2016 *COPD SEVERITY VERIFIED BY PFT 01/23/2023 COVID-19 Vaccine ( season) 2024 04/14/2024, 04/20/2023, 04/14/2023, Additional history exists O2 ASSESSMENT COMPLETED IN PAST YEAR FOR COPD 07/11/2025 07/11/2024 DTap/Tdap Vaccines (2 - Td or Tdap) 09/28/2026 09/28/2016 Colonoscopy 05/20/2033 05/20/2023, 02/15/2018 Colorectal Cancer Screening 05/20/2033 Pneumococcal Vaccine: 50+ Years Completed 02/08/2019, 04/19/2017 Hepatitis B Vaccine Completed 12/25/2021, 10/27/2021, 09/26/2021, Additional history exists Zoster Vaccines Completed 04/10/2022, 10/02/2021 Alpha-1 Antitrypsin Completed 04/09/2023 Lung Cancer Screening Completed 10/16/2023, 024 Influenza Vaccine (FLU shot) Completed , 04/07/2023, 04/02/2023, Additional history exists HPV (Gardasil) Vaccine Aged Out No lo nger eligible based on patient's age to complete this topic MENINGOCOCCAL (MENACTRA/MENVEO) Aged Out No longer eligible based on patient's age to complete this topic Meningitis B Vaccine (Bexsero/Trumemba) Aged Out No longer eligible based on patient's age to complete this topic documented as of this encounter Medical Devices Not on filedocumented as of this encounter Visit Diagnoses Diagnosis Fall, initial encounter- Primary Skin tear of left forearm without complication, initial encounter Skin tear of right forearm without complication, initial encounter Influenza A Influenza with other respiratory manifestations documented in this encounter Additional Health Concerns Infection Onset Date Last Indicated Resolved Time Influenza (seasonal) 08/23/2024 08/23/2024 documented as of this encounter Care Teams Cutter Helper Relationship Specialty Start Date End Date Maximo Taylor MD [address] [place] [address] [place] [address] PCP - General Family Medicine 05/04/23 documented as of this encounter
--- OUTSIDE RECORDS SUMMARY | 2024-08-30 18:13 | External Medical Summary | Summary of Care ---
Author Name Unknown Organization [facility] Address [address] [facility] [address] Phone [phone] Care Team Providers Care Applications Intern Name Role Phone Maximo Taylor MD Primary Care Provide r Reason for Visit * Reason Onset Date Comments Medication Refill 06/06/2024 Encounter Details Date Type Department Care Team (Late st Contact Info) Description 06/06/2024 Refill [facility] [address] [place], [place] [id number] Brianna Orozco PA-C [address] [place] [address] Allergies Active Allergy Reactions Criticality Noted Date Comments Lisinopril 04/09/2023 documented as of this encounter (statuses as of 08/02/2024) Medications Amiodarone HCl 200 MG Oral Tablet [...] mouth in the morning. 01/22/20 23 Active Divalproex Sodium 500 MG Oral Tablet [...] Capsule by mouth at bedtime. 01/22/20 Active Mckinley Caps 1 MG Oral Capsule Take 1 Capsule by mouth in the morning. 01/22/20 23 Active Stiolto Respimat 2.5-2.5 MCG/ACT Inhalation Aerosol [...] Mild, Pain, Moderate or Pain, Severe. 01/22/20 23 Active Vitamin B-1 100 MG Oral Tablet Take 1 Tablet by mouth in the morning. 01/22/20 Active Vitamin D3 125 MCG (5000 UT) Oral Capsule Take 1 Capsule by mouth in the morning. 01/22/20 23 Active Famotidine 20 MG Oral Tablet (Pepcid) Take 1 Tablet by mouth in the morning. 01/23/20 23 Active traZODone HCl 50 MG Oral Tablet (Desyrel) Take 1 Tablet by mouth at bedtime. 02/26/20 23 Active Albumin Human 25 % Intravenous SolutionIndicatio ns:Alcoholic cirrhosis of liver with ascites (HCC) 25Gm before and after paracentesis 100 mL 04/09/20 23 Active Sodium Zirconium Cyclosilicate 5 GM Oral [...] Pain, Severe. 12 Tablet 06/06/20 24 Active traMADol HCl 50 MG Oral Tablet (Ultram) Take 1 Tablet by mouth every 6 hours as needed for Pain, Moderate or Pain, Severe. 120 Tablet 2 06/06/20 24 024 Discontin ued(Refil l) documented as of this encounter (statuses as of 08/02/2024) Active Problems Problem Noted Date Diagnosed Date [...] as of this encounter (statuses as of 08/02/2024) Resolved Problems Problem Noted Date Diagnosed Date Resolved Date SBO (small bowel obstruction) 10/19/2023 11/17/2023 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 11/17/2023 Full code status 01/21/2023 10/01/2023 documented as of this encounter (statuses as of 08/02/2024) Immunizations Name Administration Dates Next Due Seasonal [...] Care Team (Late st Contact Info) Description 08/18/2024 9:00 AM EST Imaging Radiology [address] [place] [address] 01/23/2025 1:40 PM EDT Office Visit Hepatology, [facility] [address] [address] Latoya Selby DO [address] [address] Health Maintenance Due Date Last Done Comments Hanna's Esophagus Surveilance 1950 Depression Screening 1962 Cologuard 1995 Fecal Occult Blood Test 1995 Sigmoidoscopy 1995 AAA Screening 2015 Adult Wellness Visit 2016 *COPD SEVERITY VERIFIED BY PFT 01/23/2023 O2 ASSESSMENT COMPLETED IN PAST YEAR FOR COPD 07/11/2025 07/11/2024 DTap/Tdap Vaccines (2 - Td or Tdap) 09/28/2026 09/28/2016 Colonoscopy 05/20/2033 05/20/2023, 02/15/2018 Colorectal Cancer Screening 05/20/2033 Pneumococcal Vaccine: 50+ Years Completed 02/08/2019, 04/19/2017 Hepatitis B Vaccine Completed 12/25/2021, 10/27/2021, 09/26/2021, Additional history exists Zoster Vaccines Completed 04/10/2022, 10/02/2021 Alpha-1 Antitrypsin Completed 04/09/2023 Lung Cancer Screening Completed 10/16/2023, 024 COVID-19 Vaccine Completed 04/14/2024, , 04/14/2023, Additional history exists Influenza Vaccine (FLU shot) Completed , 04/07/2023, 04/02/2023, Additional history exists HPV (Gardasil) Vaccine Aged Out No lo nger eligible based on patient's age to complete this topic MENINGOCOCCAL (MENACTRA/MENVEO) Aged Out No longer eligible based on patient's age to complete this topic documented as of this encounter Medical Devices Not on filedocumented as of this encounter Care Teams Applications Intern Relationship Specialty Start Date End Date Maximo Taylor MD [address] [facility] [place] [address] PCP - General Family Medicine 05/04/23 documented as of this encounter
--- OUTSIDE RECORDS SUMMARY | 2024-08-30 18:13 | External Medical Summary | Summary of Care ---
Author Name Unknown Organization [facility] Address [address] [facility] [place] [address] Phone [phone] Care Team Providers Care Hardware Engineer Name Role Phone Maximo Taylor MD Primary Care Provide r Reason for Visit * Reason Onset Date Comments Test Results Lab 07/11/2024 Encounter Details Date Type Department Care Team (Late st Contact Info) Description 07/11/2024 Telephone Hepatology, [facility] [address] [place] [address] Latoya Selby DO [address] [place] [address] Test Results Lab Allergies Active Allergy Reactions Criticality Noted Date Comments Lisinopril 04/09/2023 documented as of this encounter (statuses as of 2024) Medications Amiodarone HCl 200 MG Oral Tablet [...] mouth in the morning. 01/22/20 23 Active EPINEPHrine 0.3 MG/0.3ML Injection Solution Prefilled [...] Capsule by mouth at bedtime. 01/22/20 Active [place] Caps 1 MG Oral Capsule Take 1 [...] by mouth daily on non-dialysis days (Wednesday, Thursday, Sat and Sun 07/21/19 Active Furosemide 80 MG Oral Tablet (Lasix) [...] as of this encounter (statuses as of 2024) Active Problems Problem Noted Date Diagnosed Date [...] as of this encounter (statuses as of 2024) Resolved Problems Problem Noted Date Diagnosed Date Resolved Date SBO (small bowel obstruction) 10/19/2023 11/17/2023 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 11/17/2023 Full code status 01/21/2023 10/01/2023 documented as of this encounter (statuses as of 2024) Immunizations Name Administration Dates Next Due Seasonal [...] encounter Miscellaneous Notes * Telephone Encounter - Janet Das CMA - 2024 10:25 AM EST Notified Sydnie at [place] of results. * Telephone Encounter - Mhai Posada LPN - 07/26/2024 4:19 PM EST LMTRC * Telephone Encounter - Mahi Posada LPN - 07/11/2024 3:54 PM EST LMTRC * Telephone Encounter - Latoya Selby DO - 07/11/2024 3:41 PM EST Please let patient know recent labs from today reviewed. MELD score is 21. Labs are all stable. Mild anemia on CBC but he does not want any more EGD/colonoscopy per his wishes. MELD 3.0: 21 at 07/11/2024 8:33 AM MELD-Na: 22 at 07/11/2024 8:33 AM Calculated from: Serum Creatinine: 6.3 mg/dL (Using max of 3 mg/dL) at 07/11/2024 8:33 AM Serum Sodium: 134 mmol/L at 07/11/2024 8:33 AM Total Bilirubin: 0.4 mg/dL (Using min of 1 mg/dL) at 07/11/2024 8:33 AM Serum Albumin: 3.6 g/dL (Using max of 3.5 g/dL) at 07/11/2024 8:33 AM INR(ratio): 1 at 07/11/2024 8:33 AM Age at listing (hypothetical): 73 years Sex: Male at 07/11/2024 8:33 AM Latoya Selby DO documented in this encounter Plan of Treatment Upcoming Encounters Date Type Department Care Team (Late st Contact Info) Description 08/18/2024 9:00 AM EST Imaging Radiology [address] [place] [address] 01/23/2025 1:40 PM EDT Office Visit Hepatology, [facility] [address] [place] [address] Latoya Selby DO [address] [place] [address] Health Maintenance Due Date Last Done Comments [...] filedocumented as of this encounter Care Teams Hardware Engineer Relationship Specialty Start Date End Date Maximo Taylor MD [address] [place] [address] [place] [address] PCP - General Family Medicine 05/04/23 documented as of this encounter
--- OUTSIDE RECORDS SUMMARY | 2024-08-30 18:13 | External Medical Summary | Summary of Care ---
Author Name Unknown Organization [facility] Address [address] [place] [facility] [place] [address] Phone [phone] Care Team Providers Care Mail Order Clerk Name Role Phone Maximo Taylor MD Primary Care Provide r Reason for Visit * Reason Onset Date Comments Senior Living Visit 08/24/2024 Encounter Details Date Type Department Care Team (Latest Contact Info) Description 08/24/2024 9:00 AM EST Senior Living Visit [facility] [address] [place], [place] [phone] Brianna Orozco PA-C [address] [place], [place] [phone] Influenza A*; Ascites due to alcoholic cirrhosis (HCC); ESRD on dialysis (HCC); COPD, moderate (HCC) Allergies Active Allergy Reactions Criticality Noted Date Comments Lisinopril 04/09/2023 documented as of this encounter (statuses as of 08/25/2024) Medications Amiodarone HCl 200 MG Oral Tablet [...] as of this encounter (statuses as of 08/25/2024) Active Problems Problem Noted Date Diagnosed Date [...] as of this encounter (statuses as of 08/25/2024) Resolved Problems Problem Noted Date Diagnosed Date Resolved Date SBO (small bowel obstruction) 10/19/2023 11/17/2023 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 11/17/2023 Full code status 01/21/2023 10/01/2023 documented as of this encounter (statuses as of 08/25/2024) Immunizations Name Administration Dates Next Due Seasonal [...] 01/23/2025 1:40 PM EDT Office Visit Hepatology, [facility] [address] [place] [address] Latoya Selby DO [address] [place] [address] Health Maintenance Due Date Last Done Comments [...] as of this encounter Visit Diagnoses Diagnosis Influenza A- Primary Influenza with other respiratory manifestations Ascites due to alcoholic cirrhosis (HCC) ESRD on dialysis (HCC) End stage renal disease COPD, moderate (HCC) Chronic airway obstruction, not elsewhere classified documented in this encounter Additional Health Concerns Infection Onset Date Last Indicated Resolved Time Influenza (seasonal) 08/23/2024 08/23/2024 documented as of this encounter Care Teams Mail Order Clerk Relationship Specialty Start Date End Date Maximo Taylor MD [address] [place], [place] [address] [id number] PCP - General Family Medicine 05/04/23 documented as of this encounter
--- OUTSIDE RECORDS SUMMARY | 2024-08-30 18:13 | External Medical Summary | Summary of Care ---
Author Name Unknown Organization [facility] Address [address] [facility] [place] [address] Phone [phone] Care Team Providers Care Traffic Line Painter Name Role Phone Maximo Taylor MD Primary Care Provide r Reason for Visit * Reason Onset Date Comments Snf Visit 08/20/2024 Encounter Details Date Type Department Care Team (Latest Contact Info) Description 08/02/2024 7:30 AM EST Snf Visit [facility] [address] [place], [place] [phone] Brianna Orozco PA-C [address] [place], [place] [phone] Midline low back pain without sciatica, unspecified chronicity*; 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 behavioral disturbance, psychotic disturbance, mood disturbance, or anxiety (HCC); Ascites due to alcoholic cirrhosis (HCC); ESRD on dialysis (HCC) Allergies Active Allergy Reactions Criticality Noted Date Comments Lisinopril 04/09/2023 documented as of this encounter (statuses as of 08/20/2024) Medications Amiodarone HCl 200 MG Oral Tablet (Cordarone) Take 1 Tablet by mouth in the morning. 01/22/20 23 Active Auryxia 1 GM 210 MG(Fe) Oral Tablet (Ferric Citrate) Take 2 Tablets by mouth in the morning and 2 Tablets at noon and 2 Tablets in the evening. Take before meals. 01/22/20 Active Cinacalcet HCl 30 MG Oral Tablet [...] Capsule by mouth at bedtime. 01/22/20 Active [place]le[place] Caps 1 MG Oral Capsule Take 1 [...] as of this encounter (statuses as of 08/20/2024) Active Problems Problem Noted Date Diagnosed Date [...] cerebral artery aneurysm rupture s/p clip 2012 Polyp of ascending colon 01/21/2023 History of tobacco use 01/21/2023 Personal history of alcoholism 01/21/2023 Coarse tremors 01/21/2023 FX CORONOID PROC ULNA-CL 07/17/2005 DISLOCAT ELBOW NEC-CLOSE 07/17/2005 documented as of this encounter (statuses as of 08/20/2024) Resolved Problems Problem Noted Date Diagnosed Date Resolved Date SBO (small bowel obstruction) 10/19/2023 11/17/2023 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 11/17/2023 Full code status 01/21/2023 10/01/2023 documented as of this encounter (statuses as of 08/20/2024) Immunizations Name Administration Dates Next Due Seasonal [...] 01/23/2025 1:40 PM EDT Office Visit Hepatology, [facility] [address] [place] [address] Latoya Selby DO [address] [place] [address] Health Maintenance Due Date Last Done Comments [...] as of this encounter Visit Diagnoses Diagnosis Midline low back pain without sciatica, unspecified chronicity- Primary 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 behavioral disturbance, psychotic disturbance, mood disturbance, or anxiety (HCC) Ascites due to alcoholic cirrhosis (HCC) ESRD on dialysis (HCC) End stage renal disease documented in this encounter Care Teams Traffic Line Painter Relationship Specialty Start Date End Date Maximo Taylor MD [address] [place] [address] [place] [address] PCP - General Family Medicine 05/04/23 documented as of this encounter
--- OUTSIDE RECORDS SUMMARY | 2024-08-30 18:13 | External Medical Summary | Summary of Care ---
Author Name Unknown Organization [facility] Address [address] [facility] [place] [address] Phone [phone] Care Team Providers Care Tech Ed Teacher Name Role Phone Maximo Taylor MD Primary Care Provide r Reason for Visit * Reason Onset Date Comments Test Results Lab 07/11/2024 Encounter Details Date Type Department Care Team (Late st Contact Info) Description 07/11/2024 Telephone Hepatology, [facility] [address] [place] [address] Latoya Selby DO [address] [place] [address] Test Results Lab Allergies Active Allergy Reactions Criticality Noted Date Comments Lisinopril 04/09/2023 documented as of this encounter (statuses as of 07/11/2024) Medications Amiodarone HCl 200 MG Oral Tablet [...] Capsule by mouth at bedtime. 01/22/20 Active [place] Caps 1 MG Oral Capsule Take [...] as of this encounter (statuses as of 07/11/2024) Active Problems Problem Noted Date Diagnosed Date [...] as of this encounter (statuses as of 07/11/2024) Resolved Problems Problem Noted Date Diagnosed Date Resolved Date SBO (small bowel obstruction) 10/19/2023 11/17/2023 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 11/17/2023 Full code status 01/21/2023 10/01/2023 documented as of this encounter (statuses as of 07/11/2024) Immunizations Name Administration Dates Next Due Seasonal [...] encounter Miscellaneous Notes * Telephone Encounter - Mahi Posada LPN [...] Description 08/18/2024 9:00 AM EST Imaging Radiology [address] [place] [address] 01/23/2025 1:40 PM EDT Office Visit Hepatology, [facility] [address] [place] [address] Latoya Selby DO [address] [place] [address] Health Maintenance Due Date Last Done Comments [...] filedocumented as of this encounter Care Teams Tech Ed Teacher Relationship Specialty Start Date End Date Maximo Taylor MD [address] [place], [place] [address] [address] PCP - General Family Medicine 05/04/23 documented as of this encounter
--- OUTSIDE RECORDS SUMMARY | 2024-08-30 18:13 | External Medical Summary | Summary of Care ---
Author Name Unknown Organization [facility] Address [address] [facility] [place] [address] Phone [phone] Care Team Providers Care Trenching Machine Operator Name Role Phone Maximo Taylor MD Primary Care Provide r Reason for Visit * Reason Onset Date Comments Test Results 08/23/2024 Encounter Details Date Type Department Care Team (Late st Contact Info) Description 08/23/2024 Telephone Hepatology, [facility] [address] [place] [address] Latoya Selby DO [address] [place] [address] Test Results Allergies Active Allergy Reactions Criticality Noted Date Comments Lisinopril 04/09/2023 documented as of this encounter (statuses as of 08/23/2024) Medications Amiodarone HCl 200 MG Oral Tablet [...] Tablet by mouth every other day. 01/22/20 23 Active Melatonin 5 MG Oral Capsule Take [...] as of this encounter (statuses as of 08/23/2024) Active Problems Problem Noted Date Diagnosed Date [...] as of this encounter (statuses as of 08/23/2024) Resolved Problems Problem Noted Date Diagnosed Date Resolved Date SBO (small bowel obstruction) 10/19/2023 11/17/2023 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 11/17/2023 Full code status 01/21/2023 10/01/2023 documented as of this encounter (statuses as of 08/23/2024) Immunizations Name Administration Dates Next Due Seasonal [...] Telephone Encounter - Janet Das CMA - 08/23/2024 2:49 PM EST at [facility] to call back for results and to schedule repeat US 02/2025. * Telephone Encounter - Latoya Selby DO - 08/23/2024 2:08 PM EST Please let patient know recent abdominal ultrasound reviewed. No liver lesions seen. Needs another ultrasound in 6 months for ongoing HCC screening. Scheduling please arrange another ultrasound in 02/2025. Order is in. Latoya Selby DO documented in this encounter Plan of Treatment Upcoming Encounters Date Type Department Care Team (Late st Contact Info) Description 01/23/2025 1:40 PM EDT Office Visit Hepatology, [facility] [address] [place] [address] [place] Latoya GreenDO [address] [place] [address] Scheduled Orders Name Type Priority Associated Diagnoses Orde r Schedule US ABDOMEN LIMITED Medical Imaging Routine Ascites due to alcoholic cirrhosis (HCC) Expected: 02/23/2025, Expires: 09/23/2025 Health Maintenance Due Date Last Done Comments [...] Ascites due to alcoholic cirrhosis (HCC)- Primary documented in this encounter Care Teams Trenching Machine Operator Relationship Specialty Start Date End Date Maximo Taylor MD [address] [place] [id number] PCP - General Family Medicine 05/04/23 documented as of this encounter
--- OUTSIDE RECORDS SUMMARY | 2024-08-30 18:13 | External Medical Summary ---
Author Name Unknown Address Unknown Organization K01:[facility] [place] [address] [facility] [address] Laboratory Report Ordering Provider Test Date Status SUSHANT JENKINS 08/23/2024 11:20:59 Final Observation Date Value Abnormality Reference (Units ) Status SARS Coronavirus 2 08/23/2024 11:20:59 Negative N egative Final No SARS-CoV2 Coronavirus RNA detected by PCR (amplified probe).
This automated test was developed and its performance characteristics determined by [facility]. It has not been cleared or approved by the U.S. Food and Drug Administration (FDA). FDA does not require this test to go thru premarket FDA review. This test is used for clinical purposes. It should not be regarded as investigational or for research. This laboratory is certified under the Clinical Laboratory Improvement Amendments (CLIA) as qualified to perform high complexity clinical laboratory testing.

This test is a nucleic acid amplification test (NAAT), a reverse transcriptase polymerase chain reaction (RT-PCR) test, or a Centers for Disease Control-acceptable equivalent. The test is performed in a high complexity Clinical Laboratory Improvement Amendments-(CLIA) certified laboratory. The test is acceptable for SARS-CoV-2 diagnosis, surveillance, and travel within the [place] and to most countries. Please check with local testing authorities about requirements before travel.

The validation of bronchial specimens, tracheal aspirates, and sputum for this assay was developed and performance characteristics determined by [facility]. The validation of alternate specimen types has not been cleared or approved by the U.S. Food and Drug Administration (FDA). It has been determined that such clearance or approval is not necessary. Influenza virus A RNA [Prese nce] in Specimen by [facility] with probe detection 08/23/2024 11:20:59 Positive Abnormal Negative Final Influenza A RNA detected by PCR (amplified probe). Test results reported to [facility]. Influenza virus B RNA [Prese nce] in Specimen by [facility] with probe detection 08/23/2024 11:20:59 Negative Negative Final No Influenza B RNA detected by PCR (amplified probe) Respiratory syncytial virus RNA [Identifier] in Specimen by [facility] with probe detection 08/23/2024 11:20:59 Negative Negative Final No Respiratory Syncytial Vir us RNA detected by PCR (amplified probe) Performing Location [facility] [place] [facility] [address]. [facility] [address]
--- OUTSIDE RECORDS SUMMARY | 2024-08-30 18:13 | External Medical Summary | Summary of Care ---
Author Name Unknown Organization [facility] Address [address] [facility] [place] [address] Phone [phone] Care Team Providers Care Interior Design Coordinator Name Role Phone Maximo Taylor MD Primary Care Provide r Reason for Visit * Reason Comments Outpatient Testing Encounter Details Date Type Department Care Team (Late st Contact Info) Description 08/23/2024 12:10 PM EST Laboratory Laboratory [address] [place] [id number] , Specimen Drop Off [address] [place] [address] Fever Allergies Active Allergy Reactions Criticality Noted Date [...] 1 Tablet by mouth in the morning. 08/03/20 23 Active EPINEPHrine 0.3 MG/0.3ML Injection Solution [...] Capsule by mouth at bedtime. 01/22/20 Active [place] Caps 1 MG Oral Capsule Take 1 [...] 01/23/2025 1:40 PM EDT Office Visit Hepatology, [facility] [address] [place] [address] Latoya Selby DO [address] [place] [address] Pending Results Name Type Priority Associated Diagnoses Date /Time INFLUENZA A/B RSV SARS-COV2,PCR Lab Routine Fever 08/23/2024 11:20 AM EST Health Maintenance Due Date Last Done Comments [...] as of this encounter Visit Diagnoses Diagnosis Fever Fever, unspecified documented in this encounter Care Teams Interior Design Coordinator Relationship Specialty Start Date End Date Maximo Taylor MD [address] [place] [address], [place] [phone] PCP - General Family Medicine 05/04/23 documented as of this encounter
--- OUTSIDE RECORDS SUMMARY | 2024-08-30 18:13 | External Medical Summary | Summary of Care ---
Author Name Unknown Organization [facility] Address [address] [facility] [place] [address] Phone [phone] Care Team Providers Care Lumber Scaler Name Role Phone Maximo Taylor MD Primary Care Provide r Reason for Visit * Reason Comments Outpatient Testing Encounter Details Date Type Department Care Team (Late st Contact Info) Description 07/11/2024 8:40 AM EST Laboratory Laboratory, [facility] [address] [facility] [place] [phone] [facility] 132 [place] [address] Ascites due to alcoholic cirrhosis (HCC) Allergies [...] Description 08/18/2024 9:00 AM EST Imaging Radiology [address] [place] [address] 01/23/2025 1:40 PM EDT Office Visit Hepatology, [facility] [address] [place] [address] Latoya Selby DO [address] [place] [address] Pending Results Name Type Priority Associated Diagnoses Date /Time HEPATIC FUNCTION PANEL Lab Routine Ascites due to alcoholic cirrhosis (HCC) 07/11/2024 8:33 AM EST PT INR Lab Routine Ascites due to alcoholic cirrhosis (HCC) 07/11/2024 8:33 AM EST CBC WITH WBC DIFFERENTIAL Lab Routine Ascites due to alcoholic cirrhosis (HCC) 07/11/2024 8:33 AM EST BASIC METABOLIC PANEL Lab Routine Ascites due to alcoholic cirrhosis (HCC) 07/11/2024 8:33 AM EST ALPHA-FETOPROTEIN TUMOR MARKER Lab Routine Ascites due to alcoholic cirrhosis (HCC) 07/11/2024 8:33 AM EST CBC Lab Routine Ascites due to alcoholic cirrhosis (HCC) 07/11/2024 8:33 AM EST DIFFERENTIAL, AUTOMATED Lab Routine Ascites due to alcoholic cirrhosis (HCC) 07/11/2024 8:33 AM EST Health Maintenance Due Date Last Done Comments Hanna's Esophagus Surveilance 1950 Depression Screening 1962 Cologuard 1995 Fecal Occult Blood Test 1995 Sigmoidoscopy 1995 AAA Screening 2015 Adult Wellness Visit 2016 *COPD SEVERITY VERIFIED BY PFT 01/23/2023 O2 ASSESSMENT COMPLETED IN PAST YEAR FOR COPD 02/13/2025 02/14/2024 DTap/Tdap Vaccines (2 - Td or Tdap) [...] Diagnoses Diagnosis Ascites due to alcoholic cirrhosis (HCC) documented in this encounter Care Teams Lumber Scaler Relationship Specialty Start Date End Date Maximo Taylor MD [address] [facility] [place] [address] PCP - General Family Medicine 05/04/23 documented as of this encounter
--- OUTSIDE RECORDS SUMMARY | 2024-08-30 18:13 | External Medical Summary | Summary of Care ---
Author Name Unknown Organization [facility] Address [address] [facility] [place] [address] Phone [phone] Care Team Providers Care Brick Dropper Name Role Phone Maximo Taylor MD Primary Care Provide r Reason for Visit * Reason Onset Date Comments Test Results Lab 07/11/2024 Encounter Details Date Type Department Care Team (Late st Contact Info) Description 07/11/2024 Telephone Hepatology, [facility] [address] [place] [address] Latoya Selby DO [address] [place] [address] Test Results Lab Allergies Active Allergy Reactions [...] Capsule by mouth at bedtime. 01/22/20 Active [place] Caps 1 MG Oral Capsule Take 1 [...] Telephone Encounter - Mahi Posada LPN - 07/26/2024 4:19 PM EST [...] Description 08/18/2024 9:00 AM EST Imaging Radiology [address] [place] [address] 01/23/2025 1:40 PM EDT Office Visit Hepatology, [facility] [address] [place] [address] Latoya Selby DO [address] [place] [address] Health Maintenance Due Date Last Done Comments [...] filedocumented as of this encounter Care Teams Brick Dropper Relationship Specialty Start Date End Date Maximo Taylor MD [address] [place], [place] [address] [address] PCP - General Family Medicine 05/04/23 documented as of this encounter
--- OUTSIDE RECORDS SUMMARY | 2024-08-30 18:13 | External Medical Summary | Summary of Care ---
Author Name Unknown Organization [facility] Address [address] [facility] [place] [address] Phone [phone] Care Team Providers Care Sand Plant Attendant Name Role Phone Maximo Taylor MD Primary Care Provide r Reason for Visit * Reason Onset Date Comments Fdc Visit 08/17/2024 Regulatory Encounter Details Date Type Department Care Team (Latest Contact Info) Description 08/17/2024 9:30 AM EST Fdc Visit [facility] [address] [place], [place] [id number] Brianna Orozco PA-C [address], [place] [phone] Anemia in chronic kidney disease, on chronic dialysis (HCC)*; 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 behavioral disturbance, psychotic disturbance, mood disturbance, or anxiety (HCC); Ascites due to alcoholic cirrhosis (HCC); COPD, moderate (HCC); 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 01/22/20 Active [place] Caps 1 MG Oral Capsule Take 1 [...] as of this encounter (statuses as of 08/18/2024) Active Problems Problem Noted Date Diagnosed Date [...] as of this encounter (statuses as of 08/18/2024) Resolved Problems Problem Noted Date Diagnosed Date Resolved Date SBO (small bowel obstruction) 10/19/2023 11/17/2023 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 11/17/2023 Full code status 01/21/2023 10/01/2023 documented as of this encounter (statuses as of 08/18/2024) Immunizations Name Administration Dates Next Due Seasonal [...] 08/18/2024 9:00 AM EST Imaging Radiology [address] [place] [address] 01/23/2025 1:40 PM EDT Office Visit Hepatology, [address] [place] [address] Latoya Selby, DO [address] [place] [address] Health Maintenance Due Date Last Done Comments [...] as of this encounter Visit Diagnoses Diagnosis Anemia in chronic kidney disease, on chronic dialysis (HCC)- Primary 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 behavioral disturbance, psychotic disturbance, mood disturbance, or anxiety (HCC) Ascites due to alcoholic cirrhosis (HCC) COPD, moderate (HCC) Chronic airway obstruction, not elsewhere classified 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
--- OUTSIDE RECORDS SUMMARY | 2024-08-30 18:13 | External Medical Summary | Summary of Care ---
Author Name Unknown Organization [facility] Address [address] [facility] [place] [address] Phone [phone] Care Team Providers Care Material Man Name Role Phone Maximo Taylor MD Primary Care Provide r Reason for Visit * Reason Onset Date Comments Test Results Lab 07/11/2024 Encounter Details Date Type Department Care Team (Late st Contact Info) Description 07/11/2024 Telephone Hepatology, [facility] [address] [place] [address] Latoya Selby DO [address] [place] [address] Test Results Lab Allergies Active Allergy Reactions [...] Capsule by mouth at bedtime. 01/22/20 Active [place] Caps 1 MG Oral Capsule Take 1 [...] Description 08/18/2024 9:00 AM EST Imaging Radiology [address] [place] [address] 01/23/2025 1:40 PM EDT Office Visit Hepatology, [facility] [address] [place] [address] Latoya Selby DO [address] [place] [address] Health Maintenance Due Date Last Done Comments [...] filedocumented as of this encounter Care Teams Material Man Relationship Specialty Start Date End Date Maximo Taylor MD [address] [place], [place] [address] [address] PCP - General Family Medicine 05/04/23 documented as of this encounter
--- OUTSIDE RECORDS SUMMARY | 2024-08-30 18:13 | External Medical Summary | Summary of Care ---
Author Name Unknown Organization [facility] Address [address] [facility] [place] [address] Phone [phone] Care Team Providers Care Neon Sign Servicer Name Role Phone Maximo Taylor MD Primary Care Provide r Reason for Visit * Reason Onset Date Comments Test Results 08/23/2024 Encounter Details Date Type Department Care Team (Late st Contact Info) Description 08/23/2024 Telephone Hepatology, [facility] [address] [place] [address] Latoya Selby DO [address] [place] [address] Test Results Allergies Active Allergy Reactions Criticality [...] CMA - 08/23/2024 2:49 PM EST at [facility] to call back for results and to [...] 01/23/2025 1:40 PM EDT Office Visit Hepatology, Health system [address] [place] [address] [place] Latoya GreenDO [address] [place] [address] Scheduled Orders Name Type Priority Associated Diagnoses [...] Primary documented in this encounter Care Teams Neon Sign Servicer Relationship Specialty Start Date End Date Maximo Taylor MD [address] [place] [address] PCP - General Family Medicine 05/04/23 documented as of this encounter
--- OUTSIDE RECORDS SUMMARY | 2024-08-30 18:13 | External Medical Summary | Summary of Care ---
Author Name Unknown Organization [facility] Address [address] [facility] [place] [address] Phone [phone] Care Team Providers Care Flight Crew Ordnanceman Name Role Phone Maximo Taylor MD Primary Care Provide r Encounter Details Date Type Department Care Team (Late st Contact Info) Description 07/13/2024 Population Health External Data Unspecified Department Allergies Active Allergy Reactions Criticality Noted Date Comments Lisinopril 04/09/2023 documented as of this encounter (statuses as of 07/13/2024) Medications Amiodarone HCl 200 MG Oral Tablet (Cordarone) Take 1 Tablet by mouth in the morning. 01/22/20 Active Auryxia 1 GM 210 MG(Fe) Oral [...] 1 Capsule by mouth at bedtime. 01/22/20 23 Active M[place] Caps 1 MG Oral Capsule Take 1 Capsule by mouth in the morning. 01/22/20 23 Active Stiolto Respimat 2.5-2.5 MCG/ACT Inhalation Aerosol Solution (Tiotropium-Oloda terol) Inhale 2 Puffs by mouth in the morning. 01/22/20 23 Active Suplena 1.8/CarbSteady Oral Liquid 01/22/20 Active [...] as of this encounter (statuses as of 07/13/2024) Active Problems Problem Noted Date Diagnosed Date [...] as of this encounter (statuses as of 07/13/2024) Resolved Problems Problem Noted Date Diagnosed Date Resolved Date SBO (small bowel obstruction) 10/19/2023 11/17/2023 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 11/17/2023 Full code status 01/21/2023 10/01/2023 documented as of this encounter (statuses as of 07/13/2024) Immunizations Name Administration Dates Next Due Seasonal [...] Description 08/18/2024 9:00 AM EST Imaging Radiology [address] [place] [address] 01/23/2025 1:40 PM EDT Office Visit Hepatology, [facility] [address] [place] [address] Latoya Selby DO [address] [place] [address] Health Maintenance Due Date Last Done Comments [...] filedocumented as of this encounter Care Teams Flight Crew Ordnanceman Relationship Specialty Start Date End Date Maximo Taylor MD [address] [place] [address] [place] [address] PCP - General Family Medicine 05/04/23 documented as of this encounter
--- OUTSIDE RECORDS SUMMARY | 2024-08-30 18:14 | External Medical Summary ---
Author Name Unknown Address Unknown Organization [id number]:LABORATORY [facility] [address] - [address] [place] [address] Laboratory Report Ordering Provider Test Date Status SUSHANT JENKINS 05/03/2024 05:28:00 Final Observation Date Value Abnormality Reference (Units ) Status SYNC LEUKOCYTES IN BLOOD BY AUTOMATED COUNT 05/03/2024 05:28:00 5.26 4.00-10.80 (K/uL) Final Neutrophils/100 leukocytes in Blood by Manual count 05/03/2024 05:28:00 58.0 40.0-75.0 (%) Final Lymphocytes/100 leukocytes in Blood by Manual count 05/03/2024 05:28:00 25.0 18.0-42.0 (%) Final Monocytes/100 leukocytes in Blood by Manual count 05/03/2024 05:28:00 10.0 1.0-11.0 (%) Final Eosinophils/100 leukocytes in Blood by Manual count 05/03/2024 05:28:00 5.0 0.0-6.0 (%) Final Metamyelocytes/100 leukocytes in Blood by Manual count 05/03/2024 05:28:00 2.0 Above high normal <=0.0 (%) Final Neutrophils [#/volume] in Blood by Manual count 05/03/2024 05:28:00 3.05 1.80-7.70 (K/uL) Final Lymphocytes [#/volume] in Blood by Manual count 05/03/2024 05:28:00 1.32 1.00-4.80 (K/uL) Final Monocytes [#/volume] in Blood by Manual count 05/03/2024 05:28:00 0.53 0.00-1.10 (K/uL) Final Eosinophils [#/volume] in Blood by Manual count 05/03/2024 05:28:00 0.26 0.00-0.70 (K/uL) Final Metamyelocytes [#/volume] in Blood by Manual count 05/03/2024 05:28:00 0.11 Above high normal <=0.00 (K/uL) Final Nucleated erythrocytes/100 leukocytes [Ratio] in Blood by Automated count 05/03/2024 05:28:00 Final Variant lymphocytes [Presence] in Blood by Light microscopy 05/03/2024 05:28:00 Present Abnormal None Seen Final Performing Location LABORATORY [place] [address] - [address] [facility] [address]
--- OUTSIDE RECORDS SUMMARY | 2024-08-30 18:14 | External Medical Summary | Summary of Care ---
Author Name Unknown Organization [facility] Address [address] [place] [facility] [place] [place] [address] Phone [phone] Care Team Providers Care Assemblyman Or Woman Name Role Phone Maximo Taylor MD Primary Care Provide r Reason for Visit * Reason Onset Date Comments Medication Refill 06/06/2024 Encounter Details Date Type Department Care Team (Late st Contact Info) Description 06/06/2024 Refill [facility] [address] [place], [place] [phone] Brianna Orozco PA-C [address] [place] [address] Allergies Active Allergy Reactions Criticality Noted Date Comments Lisinopril 04/09/2023 documented as of this encounter (statuses as of 06/06/2024) Medications Amiodarone HCl 200 MG Oral Tablet [...] morning. 01/22/20 Active Suplena 1.8/CarbSteady Oral Liquid Take 120 mL by mouth in the morning and 120 mL before bedtime. 01/22/20 Active triamcinolone 0.1% in hydrophilic ointment [...] Pain, Moderate or Pain, Severe. 40 Tablet 06/18/20 23 024 Discontin ued(Refil l) traMADol HCl 50 MG Oral Tablet (Ultram) Take 1 Tablet by mouth every 6 hours as needed for Pain, Moderate or Pain, Severe. 120 Tablet 2 06/06/20 24 024 Discontin ued(Refil l) documented as of this encounter (statuses as of 06/06/2024) Active Problems Problem Noted Date Diagnosed Date [...] as of this encounter (statuses as of 06/06/2024) Resolved Problems Problem Noted Date Diagnosed Date Resolved Date SBO (small bowel obstruction) 10/19/2023 11/17/2023 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 11/17/2023 Full code status 01/21/2023 10/01/2023 documented as of this encounter (statuses as of 06/06/2024) Immunizations Name Administration Dates Next Due Seasonal [...] Team (Late st Contact Info) Description 07/11/2024 8:00 AM EST Office Visit Hepatology, [facility] [address] [place] [address] Latoya Selby DO [address] [place] [address] 08/18/2024 9:00 AM EST Imaging Radiology [address] [place] [phone] Health Maintenance Due Date Last Done Comments Hanna's Esophagus Surveilance 1950 Depression Screening 1962 Cologuard 1995 Fecal Occult Blood Test 1995 Sigmoidoscopy 1995 AAA Screening 2015 Adult Wellness Visit 2016 *COPD SEVERITY VERIFIED BY PFT 01/23/2023 COVID-19 Vaccine ( season) 2024 04/20/2023, 04/14/2023, 10/18/2020, Additional history exists O2 ASSESSMENT COMPLETED IN PAST YEAR FOR COPD 02/13/2025 02/14/2024 DTap/Tdap Vaccines (2 - Td or Tdap) 09/28/2026 09/28/2016 Colonoscopy 05/20/2033 05/20/2023, 02/15/2018 Colorectal Cancer Screening 05/20/2033 Pneumococcal Vaccine: 65+ Years Completed 02/08/2019, 04/19/2017 Hepatitis B Vaccine [...] filedocumented as of this encounter Care Teams Assemblyman Or Woman Relationship Specialty Start Date End Date Maximo Taylor MD [address] [place], [place] [address] [address] PCP - General Family Medicine 05/04/23 documented as of this encounter
--- OUTSIDE RECORDS SUMMARY | 2024-08-30 18:14 | External Medical Summary ---
Author Name Unknown Address Unknown Organization [id number]:LABORATORY [facility] [address] - [address] [place] [address] Laboratory Report Ordering Provider Test Date Status DAVONTE HIRSCH 07/11/2024 08:33:12 Final Observation Date Value Abnormality Reference (Units ) Status SYNC LEUKOCYTES IN BLOOD BY AUTOMATED COUNT 07/11/2024 08:33:12 5.76 4.00-10.80 (K/uL) Final Segs 07/11/2024 08:33:12 67.1 40.0-75.0 (%) Final Lymphs % 07/11/2024 08:33:12 14.4 Below low normal 18.0-42.0 (%) Final Monos 07/11/2024 08:33:12 14.9 Above high normal 1.0-11.0 (%) Final Eosinophils 07/11/2024 08:33:12 3.3 0.0-6.0 (%) Final Basos 07/11/2024 08:33:12 0.3 0.0-2.0 (%) Final Absolute Segs 07/11/2024 08:33:12 3.86 1.80-7.70 (K/uL) Final Lymphs, absolute 07/11/2024 08:33:12 0.83 Below low normal 1.00-4.80 (K/ul) Final Monos, Abs 07/11/2024 08:33:12 0.86 0.00-1.10 (K/uL) Final Eos, Abs 07/11/2024 08:33:12 0.19 0.00-0.70 (K/uL) Final Basos, Abs 07/11/2024 08:33:12 0.02 0.00-0.20 (K/uL) Final Performing Location LABORATORY [facility] [address] - [address] [place] [address]
--- OUTSIDE RECORDS SUMMARY | 2024-08-30 18:14 | External Medical Summary ---
Author Name Unknown Address Unknown Organization [id number]:LABORATORY [place] [address] - [address] [place] [address] Laboratory Report Ordering Provider Test Date Status DAVONTE HIRSCH 07/11/2024 08:33:12 Final Observation Date Value Abnormality Reference (Units ) Status BUN 07/11/2024 08:33:12 38 Above high normal 6-20 (mg/dL) Final Creatinine 07/11/2024 08:33:12 6.3 Above high normal 0.6-1.2 (mg/dL) Final Glomerular filtration rate/1.73 sq M.predicted [Volume Rate/Area] in Serum, Plasma or Blood by Creatinine-based formula (CKD-EPI) 07/11/2024 08:33:12 9 Below low normal >=60 (mL/min) Final eGFR is calculated based on the CKD-EPI 2020 equation. Sodium 07/11/2024 08:33:12 134 Below low normal 135 -146 (mmol/L) Final Potassium 07/11/2024 08:33:12 4.7 3.5-5.1 (m mol/L) Final Cl 07/11/2024 08:33:12 92 Below low normal 98- 107 (mmol/L) Final CO2 07/11/2024 08:33:12 29 22-32 (mmo l/L) Final Anion gap 07/11/2024 08:33:12 13 7-15 (mmol /L) Final Glucose 07/11/2024 08:33:12 118 70-120 (mg /dL) Final Calcium 07/11/2024 08:33:12 9.6 8.4-10.2 ( mg/dL) Final Performing Location LABORATORY [facility] [address] - [address] [place] [address]
--- OUTSIDE RECORDS SUMMARY | 2024-08-30 18:14 | External Medical Summary ---
Author Name Unknown Address Unknown Organization [id number]:LABORATORY [place] [address] - [address] [place] [address] Laboratory Report Ordering Provider Test Date Status TORREYDAVONTE 07/11/2024 08:33:12 Final Warfarin Therapy
INR: 2 .0-3.0 conventional anticoagulation
INR: 2.5- 3.5 high intensity anticoagulation Observation Date Value Abnormality Reference (Units ) Status PT 07/11/2024 08:33:12 13.1 11.6-15.2 (seconds) Final INR 07/11/2024 08:33:12 1.0 0.8-1.2 Final Performing Location LABORATORY [place] [address] - [address] [place] [address]
--- OUTSIDE RECORDS SUMMARY | 2024-08-30 18:14 | External Medical Summary ---
Author Name Unknown Address Unknown Organization [id number] - [address] [place] [address] Laboratory Report Ordering Provider Test Date Status SUSHANT JENKINS 05/17/2024 05:39:00 Final Observation Date Value Abnormality Reference (Units ) Status WBC, Total 05/17/2024 05:39:00 5.86 4.00-10.8 0 (K/uL) Final RBC 05/17/2024 05:39:00 3.77 4.50-5.25 (M/uL) Final Hemoglobin 05/17/2024 05:39:00 11.9 Below low normal 14 .0-16.8 (g/dL) Final HCT 05/17/2024 05:39:00 36.7 Below low normal 40. 0-48.4 (%) Final MCV 05/17/2024 05:39:00 97.3 82.0-99.5 (fL) Final MCH 05/17/2024 05:39:00 31.6 27.0-34.0 (pg) Final MCHC 05/17/2024 05:39:00 32.4 32.0-36.0 (g/dL) Final RDW 05/17/2024 05:39:00 14.5 11.5-15.5 (%) Final Platelets 05/17/2024 05:39:00 236 140-400 (K /uL) Final MPV 05/17/2024 05:39:00 9.7 6.6-11.1 ( fL) Final Performing Location LABORATORY [facility] [address] - [address] [place] [address]
--- OUTSIDE RECORDS SUMMARY | 2024-08-30 18:14 | External Medical Summary ---
Author Name Unknown Address Unknown Organization [id number]:LABORATORY [facility] - [address] [facility] [place] [address] Laboratory Report Ordering Provider Test Date Status SUSHATN JENKINS 05/31/2024 06:04:00 Final Observation Date Value Abnormality Reference (Units ) Status SYNC LEUKOCYTES IN BLOOD BY AUTOMATED COUNT 05/31/2024 06:04:00 4.79 4.00-10.80 (K/uL) Final Segs 05/31/2024 06:04:00 55.1 40.0-75.0 (%) Final Lymphs % 05/31/2024 06:04:00 21.3 18.0-42.0 (%) Final Monos 05/31/2024 06:04:00 16.1 Above high normal 1.0-11.0 (%) Final Eosinophils 05/31/2024 06:04:00 5.4 0.0-6.0 (%) Final Basos 05/31/2024 06:04:00 1.5 0.0-2.0 (%) Final Immature Granulocyte, Percent 05/31/2024 06:04:00 0.6 0.0-2.0 (%) Final Absolute Segs 05/31/2024 06:04:00 2.64 1.80-7.70 (K/uL) Final Lymphs, absolute 05/31/2024 06:04:00 1.02 1.00-4.80 (K/ul) Final Monos, Abs 05/31/2024 06:04:00 0.77 0.00-1.10 (K/uL) Final Eos, Abs 05/31/2024 06:04:00 0.26 0.00-0.70 (K/uL) Final Basos, Abs 05/31/2024 06:04:00 0.07 0.00-0.20 (K/uL) Final Immature Granulocytes, Number 05/31/2024 06:04:00 0.03 0.00-0.20 (K/uL) Final Performing Location LABORATORY [facility] - [facility] [address] [facility] [address]
--- OUTSIDE RECORDS SUMMARY | 2024-08-30 18:14 | External Medical Summary ---
Author Name Unknown Address Unknown Organization K0G:LABORATORY [place] [address] - [address] [place] [address] Laboratory Report Ordering Provider Test Date Status DAVONTE HIRSCH 07/11/2024 08:33:12 Final Observation Date Value Abnormality Reference (Units ) Status Albumin 07/11/2024 08:33:12 3.6 Below low normal 3.8-5.0 (g/dL) Final AST (Aspartate aminotransferase) 07/11/2024 08:33:12 11 10-50 (U/L) Final Alk Phos 07/11/2024 08:33:12 72 35-130 (U/L) Final ALT (Alanine aminotransferase) 07/11/2024 08:33:12 12 10-50 (U/L) Final Bilirubin, Total 07/11/2024 08:33:12 0.4 <=1.2 (mg/dL) Final Bilirubin, Direct 07/11/2024 08:33:12 0.2 0.0-0.3 (mg/dL) Final Protein 07/11/2024 08:33:12 6.1 6.0-8.3 (g/dL) Final Performing Location LABORATORY [place] [address] - [address] [place] [address]
--- OUTSIDE RECORDS SUMMARY | 2024-08-30 18:14 | External Medical Summary ---
Author Name Unknown Address Unknown Organization [facility] - [address] [place] [address] Laboratory Report Ordering Provider Test Date Status SUSHANT JENKINS 06/16/2024 05:45:00 Final Observation Date Value Abnormality Reference (Units ) Status SYNC LEUKOCYTES IN BLOOD BY AUTOMATED COUNT 06/16/2024 05:45:00 4.88 4.00-10.80 (K/uL) Final Segs 06/16/2024 05:45:00 57.2 40.0-75.0 (%) Final Lymphs % 06/16/2024 05:45:00 18.2 18.0-42.0 (%) Final Monos 06/16/2024 05:45:00 16.8 Above high normal 1.0-11.0 (%) Final Eosinophils 06/16/2024 05:45:00 7.0 Above high normal 0.0-6.0 (%) Final Basos 06/16/2024 05:45:00 0.8 0.0-2.0 (%) Final Absolute Segs 06/16/2024 05:45:00 2.79 1.80-7.70 (K/uL) Final Lymphs, absolute 06/16/2024 05:45:00 0.89 Below low normal 1.00-4.80 (K/ul) Final Monos, Abs 06/16/2024 05:45:00 0.82 0.00-1.10 (K/uL) Final Eos, Abs 06/16/2024 05:45:00 0.34 0.00-0.70 (K/uL) Final Basos, Abs 06/16/2024 05:45:00 0.04 0.00-0.20 (K/uL) Final Performing [facility] 0 - [address] [place] [address]
--- OUTSIDE RECORDS SUMMARY | 2024-08-30 18:14 | External Medical Summary | Summary of Care ---
Author Name Unknown Organization [facility] Address [address] [facility] [place] [address] Phone [phone] Care Team Providers Care Glassware Verifier Name Role Phone Maximo Taylor MD Primary Care Provide r Encounter Details Date Type Department Care Team (Late st Contact Info) Description 06/26/2024 Orders Only Lab Mobile Phlebotomy [facility] [address] [place] [address] Maximo Taylor MD [address] [place] [address] [place] [address] Cirrhosis of liver (HCC)* Allergies Active Allergy Reactions Criticality Noted Date Comments Lisinopril 04/09/2023 documented as of this encounter (statuses as of 06/26/2024) Medications Amiodarone HCl 200 MG Oral Tablet [...] 4 hours as needed for Wheezing. 01/22/20 23 Active Loratadine 10 MG Oral Tablet (Claritin) [...] 01/22/20 23 Active Suplena 1.8/CarbSteady Oral Liquid Take 120 mL by mouth in the morning and 120 mL before bedtime. 01/22/20 23 Active triamcinolone 0.1% in hydrophilic ointment 2:1 Apply topically to affected area 2 times a day. 01/22/20 23 Active Acetaminophen 325 MG Oral Tablet (Tylenol) Take 2 Tablets by mouth every 4 hours as needed for Fever >38C(100.5F), Pain, Mild, Pain, Moderate or Pain, Severe. 01/22/20 23 Active Vitamin B-1 100 MG Oral Tablet Take 1 Tablet by mouth in the morning. 01/22/20 23 Active Vitamin D3 125 MCG (5000 UT) [...] Pain, Severe. 12 Tablet 06/06/20 24 Active documented as of this encounter (statuses as of 06/26/2024) Active Problems Problem Noted Date Diagnosed Date [...] as of this encounter (statuses as of 06/26/2024) Resolved Problems Problem Noted Date Diagnosed Date Resolved Date SBO (small bowel obstruction) 10/19/2023 11/17/2023 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 11/17/2023 Full code status 01/21/2023 10/01/2023 documented as of this encounter (statuses as of 06/26/2024) Immunizations Name Administration Dates Next Due Seasonal [...] Care Team (Late st Contact Info) Description 06/26/2024 5:10 AM EST Laboratory Lab Mobile Phlebotomy [facility] [address] [employer] [facility] [place] [address] [place] [address] Arrived 07/11/2024 8:00 AM EST Office Visit Hepatology, [facility] [address] [facility] [place] [address] Latoya Selby DO [address] [facility] [place] [address] 08/18/2024 9:00 AM EST Imaging Radiology [address] [place] [address] Scheduled Orders Name Type Priority Associated Diagnoses Orde r Schedule HEPATIC FUNCTION PANEL Lab Routine Cirrhosis of liver (HCC) Expected: 06/26/2024, Expires: 06/26/2025 Health Maintenance Due Date Last Done Comments [...] alcohol documented in this encounter Care Teams Glassware Verifier Relationship Specialty Start Date End Date Maximo Taylor MD [address] [place], [place] [address] [address] PCP - General Family Medicine 05/04/23 documented as of this encounter
--- OUTSIDE RECORDS SUMMARY | 2024-08-30 18:14 | External Medical Summary | Summary of Care ---
Author Name Unknown Organization [facility] Address [address] [facility] [place] [address] Phone [phone] Care Team Providers Care Poultry Farmer Name Role Phone Maximo Taylor MD Primary Care Provide r Encounter Details Date Type Department Care Team (Late st Contact Info) Description 05/03/2024 Orders Only Lab Mobile Phlebotomy [facility] [address] [place] [address] Maximo Taylor MD [address] [place] [address] [place] [address] Alcoholic cirrhosis of liver with ascites (HCC)* Allergies Active Allergy Reactions Criticality Noted Date Comments Lisinopril 04/09/2023 documented as of this encounter (statuses as of 05/03/2024) Medications Amiodarone HCl 200 MG Oral Tablet [...] Capsule by mouth at bedtime. 01/22/20 Active [place] Caps 1 MG Oral Capsule Take 1 [...] and after paracentesis 100 mL 04/09/20 Active traMADol HCl 50 MG Oral Tablet (Ultram) Take 1 Tablet by mouth every 6 hours as needed for Pain, Moderate or Pain, Severe. 40 Tablet 12/29/20 23 Active Sodium Zirconium Cyclosilicate 5 GM [...] after paracentesis 100 mL 03/27/20 24 Active documented as of this encounter (statuses as of 05/03/2024) Active Problems Problem Noted Date Diagnosed Date [...] as of this encounter (statuses as of 05/03/2024) Resolved Problems Problem Noted Date Diagnosed Date Resolved Date SBO (small bowel obstruction) 10/19/2023 11/17/2023 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 11/17/2023 Full code status 01/21/2023 10/01/2023 documented as of this encounter (statuses as of 05/03/2024) Immunizations Name Administration Dates Next Due Seasonal [...] Care Team (Late st Contact Info) Description 05/03/2024 5:00 AM EST Laboratory Lab Mobile Phlebotomy [facility] [address] [facility] [place] [address] [place] [address] Arrived 07/11/2024 8:00 AM EST Office Visit Hepatology, [facility] [place] [address] Latoya Selby DO [address] [place] [address] 08/18/2024 9:00 AM EST Imaging Radiology [address] [place] [address] Scheduled Orders Name Type Priority Associated Diagnoses Orde r Schedule CBC WITH WBC DIFFERENTIAL Lab Routine Alcoholic cirrhosis of liver with ascites (HCC) Expected: 05/03/2024, Expires: 05/03/2025 Health Maintenance Due Date Last Done Comments Hanna's Esophagus Surveilance 1950 Depression Screening 1962 Cologuard 1995 Fecal Occult Blood Test 1995 Sigmoidoscopy 1995 AAA Screening 2015 Adult Wellness Visit 2016 *COPD SEVERITY VERIFIED BY PFT 01/23/2023 COVID-19 Vaccine ( season) 2024 04/20/2023, 04/14/2023, 10/18/2020, Additional history exists Influenza Vaccine (FLU shot) (#1) 2024 04/07/2023, 04/02/2023, 03/27/2022, Additional history exists O2 ASSESSMENT COMPLETED IN PAST YEAR FOR COPD 02/13/2025 02/14/2024 DTap/Tdap Vaccines (2 - Td or Tdap) 09/28/2026 09/28/2016 Colonoscopy 05/20/2033 05/20/2023, 02/15/2018 Colorectal Cancer Screening 05/20/2033 Pneumococcal Vaccine: 65+ Years Completed 02/08/2019, 04/19/2017 Hepatitis B Vaccine Completed 12/25/2021, 10/27/2021, 09/26/2021, Additional history exists Zoster Vaccines Completed 04/10/2022, 10/02/2021 Alpha-1 Antitrypsin Completed 04/09/2023 Lung Cancer Screening Completed 10/16/2023, 024 HPV (Gardasil) Vaccine Aged Out No lo [...] liver documented in this encounter Care Teams Poultry Farmer Relationship Specialty Start Date End Date Maximo Taylor MD [address] [place] [address], [place] [id number] PCP - General Family Medicine 05/04/23 documented as of this encounter
--- OUTSIDE RECORDS SUMMARY | 2024-08-30 18:14 | External Medical Summary ---
Author Name Unknown Address Unknown Organization [id number]:LABORATORY [facility] 57-[address] - [address] [place] [address] Laboratory Report Ordering Provider Test Date Status SUSHANT JENKINS 06/16/2024 05:45:00 Final Observation Date Value Abnormality Reference (Units ) Status WBC, Total 06/16/2024 05:45:00 4.88 4.00-10.8 0 (K/uL) Final RBC 06/16/2024 05:45:00 4.25 4.50-5.25 (M/uL) Final Hemoglobin 06/16/2024 05:45:00 13.2 Below low normal 14 .0-16.8 (g/dL) Final HCT 06/16/2024 05:45:00 41.2 40.0-48.4 (%) Final MCV 06/16/2024 05:45:00 96.9 82.0-99.5 (fL) Final MCH 06/16/2024 05:45:00 31.1 27.0-34.0 (pg) Final MCHC 06/16/2024 05:45:00 32.0 32.0-36.0 (g/dL) Final RDW 06/16/2024 05:45:00 15.1 11.5-15.5 (%) Final Platelets 06/16/2024 05:45:00 198 140-400 (K /uL) Final MPV 06/16/2024 05:45:00 9.8 6.6-11.1 ( fL) Final Performing Location LABORATORY [facility] 57-[address] 0 - [address] [place] [address]
--- OUTSIDE RECORDS SUMMARY | 2024-08-30 18:14 | External Medical Summary | Summary of Care ---
Author Name Unknown Organization [facility] Address [address] [facility] [place] [address] Phone [phone] Care Team Providers Care Business Affairs Manager Name Role Phone Maximo Taylor MD Primary Care Provide r Encounter Details Date Type Department Care Team (Late st Contact Info) Description 05/17/2024 Orders Only Lab Mobile Phlebotomy [facility] [address] [place] [address] Maximo Taylor MD [address] [place] [address] [place] [address] Cirrhosis of liver with ascites, unspecified hepatic cirrhosis type (HCC)* Allergies Active Allergy Reactions Criticality Noted Date Comments Lisinopril 04/09/2023 documented as of this encounter (statuses as of 05/17/2024) Medications Amiodarone HCl 200 MG Oral Tablet [...] Capsule by mouth at bedtime. 01/22/20 Active [place] Caps 1 MG Oral Capsule Take 1 [...] or Pain, Severe. 40 Tablet 06/18/20 23 Active Sodium Zirconium Cyclosilicate 5 GM [...] as of this encounter (statuses as of 05/17/2024) Active Problems Problem Noted Date Diagnosed Date [...] as of this encounter (statuses as of 05/17/2024) Resolved Problems Problem Noted Date Diagnosed Date Resolved Date SBO (small bowel obstruction) 10/19/2023 11/17/2023 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 11/17/2023 Full code status 01/21/2023 10/01/2023 documented as of this encounter (statuses as of 05/17/2024) Immunizations Name Administration Dates Next Due Seasonal [...] Care Team (Late st Contact Info) Description 05/17/2024 5:10 AM EST Laboratory Lab Mobile Phlebotomy [facility] [address] [facility] [place] [address] [place] [address] Arrived 07/11/2024 8:00 AM EST Office Visit Hepatology, [facility] 132 [facility] [place] [address] Latoya Selby DO 132 [facility] [place] [address] 08/18/2024 9:00 AM EST Imaging Radiology [address] [place] [address] Scheduled Orders Name Type Priority Associated Diagnoses Orde r Schedule CBC WITH WBC DIFFERENTIAL Lab Routine Cirrhosis of liver with ascites, unspecified hepatic cirrhosis type (HCC) Expected: 05/17/2024, Expires: 05/17/2025 Health Maintenance Due Date Last Done Comments [...] Primary documented in this encounter Care Teams Business Affairs Manager Relationship Specialty Start Date End Date Maximo Taylor MD [address] [place] [address] [place] [address] PCP - General Family Medicine 05/04/23 documented as of this encounter
--- OUTSIDE RECORDS SUMMARY | 2024-08-30 18:14 | External Medical Summary ---
Author Name Unknown Address Unknown Organization [id number]:LABORATORY [facility] - [facility] [address] [facility] [address] [place] [address] Laboratory Report Ordering Provider Test Date Status SUSHANT JENKINS 05/31/2024 06:04:00 Final Observation Date Value Abnormality Reference (Units ) Status WBC, Total 05/31/2024 06:04:00 4.79 4.00-10.80 (K/uL) Final RBC 05/31/2024 06:04:00 4.04 4.50-5.25 (M/uL) Final Hemoglobin 05/31/2024 06:04:00 12.8 Below low normal 14.0-16.8 (g/dL) Final HCT 05/31/2024 06:04:00 39.7 Below low normal 40.0-48.4 (%) Final MCV 05/31/2024 06:04:00 98.3 82.0-99.5 (fL) Final MCH 05/31/2024 06:04:00 31.7 27.0-34.0 (pg) Final MCHC 05/31/2024 06:04:00 32.2 32.0-36.0 (g/dL) Final RDW 05/31/2024 06:04:00 14.8 11.5-15.5 (%) Final Platelets 05/31/2024 06:04:00 218 140-400 (K/uL) Final MPV 05/31/2024 06:04:00 9.3 6.6-11.1 (fL) Final Nucleated erythrocytes/100 leukocytes [Ratio] in Blood by Automated count 05/31/2024 06:04:00 0 <=0 (/100 WBCs) Final Performing Location LABORATORY [facility] - [address] [place] [address]
--- OUTSIDE RECORDS SUMMARY | 2024-08-30 18:14 | External Medical Summary ---
Author Name Unknown Address Unknown Organization K0G:LABORATORY [facility] 57-[address] - [address] [place] [address] Laboratory Report Ordering Provider Test Date Status DAVONTE HIRSCH 07/11/2024 08:33:12 Final Observation Date Value Abnormality Reference (Units ) Status WBC, Total 07/11/2024 08:33:12 5.76 4.00-10.8 0 (K/uL) Final RBC 07/11/2024 08:33:12 4.34 4.50-5.25 (M/uL) Final Hemoglobin 07/11/2024 08:33:12 13.5 Below low normal 14 .0-16.8 (g/dL) Final HCT 07/11/2024 08:33:12 41.8 40.0-48.4 (%) Final MCV 07/11/2024 08:33:12 96.3 82.0-99.5 (fL) Final MCH 07/11/2024 08:33:12 31.1 27.0-34.0 (pg) Final MCHC 07/11/2024 08:33:12 32.3 32.0-36.0 (g/dL) Final RDW 07/11/2024 08:33:12 15.1 11.5-15.5 (%) Final Platelets 07/11/2024 08:33:12 216 140-400 (K /uL) Final MPV 07/11/2024 08:33:12 9.5 6.6-11.1 ( fL) Final Performing Location LABORATORY [facility] [address] - [address] [place] [address]
--- OUTSIDE RECORDS SUMMARY | 2024-08-30 18:14 | External Medical Summary ---
Author Name Unknown Address Unknown Organization K01:[facility]ORY [facility] [place] - [address] [place] [address] Laboratory Report Ordering Provider Test Date Status DAVONTE HIRSCH 07/11/2024 08:33:12 Final Observation Date Value Abnormality Reference (Units ) Status Alpha-Fetoprotein 07/11/2024 08:33:12 1.8 0. 0-8.3 (ng/mL) Final Performing Location LABORATORY C - [address] [place] [address]
--- OUTSIDE RECORDS SUMMARY | 2024-08-30 18:14 | External Medical Summary | Summary of Care ---
Author Name Unknown Organization [facility] Address [address] [facility] [place] [address] Phone [phone] Care Team Providers Care Superintendent Menagerie Name Role Phone Maximo Taylor MD Primary Care Provide r Reason for Visit * Reason Onset Date Comments Information 06/27/2024 AAA screening Encounter Details Date Type Department Care Team (Late st Contact Info) Description 06/27/2024 Telephone Family Medicine [address] [place] [id number] Maximo Taylor MD [address] [place], [place] [address] [id number] Information (AAA screening ) Allergies Active Allergy Reactions Criticality Noted Date Comments Lisinopril 04/09/2023 documented as of this encounter (statuses as of 06/29/2024) Medications Amiodarone HCl 200 MG Oral Tablet [...] Capsule by mouth at bedtime. 01/22/20 Active [place] Caps 1 MG Oral Capsule Take 1 [...] as of this encounter (statuses as of 06/29/2024) Active Problems Problem Noted Date Diagnosed Date [...] as of this encounter (statuses as of 06/29/2024) Resolved Problems Problem Noted Date Diagnosed Date Resolved Date SBO (small bowel obstruction) 10/19/2023 11/17/2023 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 11/17/2023 Full code status 01/21/2023 10/01/2023 documented as of this encounter (statuses as of 06/29/2024) Immunizations Name Administration Dates Next Due Seasonal Influenza, Quad, Nasal (Flumist) 2022 documented as of this encounter Social History Tobacco Use Types Packs/Day Years Used Date Smoking Tobacco: Former Cigarettes 1 55 1 967 2021 Smokeless Tobacco: Never Alcohol Use Standard [...] encounter Miscellaneous Notes * Telephone Encounter - Andrea Bishopclaudia Cartagena, MANE - 06/29/2024 12:45 PM EST I am calling to discuss [...] have a AAA screening for further evaluation. Outcomes: Outreach not indicated SNF/Hospice/other penitentiary * Telephone Encounter - Latrice Bishop LPN - 06/27/2024 2:35 PM EST Through advanced analysis/trending of this patient's history, they have been identified to have a positive AAA flag and are at a higher risk for Abdominal aortic aneurysm. Pt will be contacted by a [facility] nurse to discuss AAA screening. documented in this encounter Plan of Treatment Upcoming Encounters Date Type Department Care Team (Late st Contact Info) Description 07/11/2024 8:00 AM EST Office Visit Hepatology, [facility] [address] [place] [address] Latoya Selby DO [address] [place] [address] 08/18/2024 9:00 AM EST Imaging Radiology [address] [place] [address] Health Maintenance Due Date Last Done Comments [...] filedocumented as of this encounter Care Teams Superintendent Menagerie Relationship Specialty Start Date End Date Maximo Taylor MD [address] [place], [place] [address] [address] PCP - General Family Medicine 05/04/23 documented as of this encounter
--- OUTSIDE RECORDS SUMMARY | 2024-08-30 18:14 | External Medical Summary | Summary of Care ---
Author Name Unknown Organization [facility] Address [address] [facility] [place] [address] Phone [phone] Care Team Providers Care Cloth Winder Name Role Phone Maximo Taylor MD Primary Care Provide r Encounter Details Date Type Department Care Team (Late st Contact Info) Description 06/27/2024 External Data Patient Risk Medial Allergies Active Allergy Reactions Criticality Noted Date Comments Lisinopril 04/09/2023 documented as of this encounter (statuses as of 06/27/2024) Medications Amiodarone HCl 200 MG Oral Tablet [...] by mouth at bedtime. 01/22/20 23 Active [place] Caps 1 MG Oral Capsule Take 1 [...] as of this encounter (statuses as of 06/27/2024) Active Problems Problem Noted Date Diagnosed Date [...] as of this encounter (statuses as of 06/27/2024) Resolved Problems Problem Noted Date Diagnosed Date Resolved Date SBO (small bowel obstruction) 10/19/2023 11/17/2023 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 11/17/2023 Full code status 01/21/2023 10/01/2023 documented as of this encounter (statuses as of 06/27/2024) Immunizations Name Administration Dates Next Due Seasonal [...] 07/11/2024 8:00 AM EST Office Visit Hepatology, [facility] [address] [place] [address] Latoya Selby DO [address] [place] [address] 08/18/2024 9:00 AM EST Imaging Radiology [address] [place] [address] Health Maintenance Due Date Last Done Comments [...] filedocumented as of this encounter Care Teams Cloth Winder Relationship Specialty Start Date End Date Maximo Taylor MD 100 [facility] [place] [address] PCP - General Family Medicine 05/04/23 documented as of this encounter
--- OUTSIDE RECORDS SUMMARY | 2024-08-30 18:14 | External Medical Summary | Summary of Care ---
Author Name Unknown Organization [facility] Address [address] [facility] [place] [address] Phone [phone] Care Team Providers Care Culinary Arts Instructor Name Role Phone Maximo Taylor MD Primary Care Provide r Encounter Details Date Type Department Care Team (Late st Contact Info) Description 06/16/2024 Orders Only Lab Mobile Phlebotomy [facility] [address] [place] [address] Maximo Taylor MD [address] [place] [address] [place] [address] Alcoholic cirrhosis of liver with ascites (HCC)* Allergies Active Allergy Reactions Criticality Noted Date Comments Lisinopril 04/09/2023 documented as of this encounter (statuses as of 06/16/2024) Medications Amiodarone HCl 200 MG Oral Tablet [...] by mouth at bedtime. 01/22/20 23 Active [place] Caps 1 MG Oral Capsule [...] non-dialysis days (Wednesday, , Sat and Sun 01/31/20 24 Active Furosemide 80 MG Oral Tablet (Lasix) Take 1 Tablet by mouth in the morning and 1 Tablet before bedtime. 11/17/19 24 Active Fluticasone Propionate 50 MCG/ACT Nasal Suspension (Flonase) Administer 2 Sprays into each nostril in the morning. 11/17/19 Active Docusate Sodium 100 MG Oral Capsule (Colace) Take 2 Capsules by mouth in the morning and 2 Capsules before bedtime. 01/24/20 24 Active Polyethylene Glycol 3350 17 GM/SCOOP Oral Powder (Miralax) Take 17 g by mouth in the morning. Dissolve one heaping tablespoon in 8 ounces of water or juice.. 01/24/20 Active Albumin Human 25 % Intravenous SolutionIndicatio ns:Alcoholic cirrhosis of liver with ascites (HCC) 25Gm before and after paracentesis 100 mL 03/27/20 Active traMADol HCl 50 MG Oral Tablet (Ultram) Take 1 Tablet by mouth every 6 hours as needed for Pain, Moderate or Pain, Severe. 12 Tablet 06/06/20 Active documented as of this encounter (statuses as of 06/16/2024) Active Problems Problem Noted Date Diagnosed Date [...] as of this encounter (statuses as of 06/16/2024) Resolved Problems Problem Noted Date Diagnosed Date Resolved Date SBO (small bowel obstruction) 10/19/2023 11/17/2023 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 11/17/2023 Full code status 01/21/2023 10/01/2023 documented as of this encounter (statuses as of 06/16/2024) Immunizations Name Administration Dates Next Due Seasonal [...] Care Team (Late st Contact Info) Description 06/16/2024 5:10 AM EST Laboratory Lab Mobile Phlebotomy [facility] 25[address] [facility] [place] [address] [place] [address] Arrived 07/11/2024 8:00 AM EST Office Visit Hepatology, [facility] [address] [facility] [place] [address] Latoya Selby DO [address] [place] [address] 08/18/2024 9:00 AM EST Imaging Radiology [address] [place] [address] Scheduled Orders Name Type Priority Associated Diagnoses Orde r Schedule CBC WITH WBC DIFFERENTIAL Lab Routine Alcoholic cirrhosis of liver with ascites (HCC) Expected: 06/16/2024, Expires: 06/16/2025 Health Maintenance Due Date Last Done Comments [...] liver documented in this encounter Care Teams Culinary Arts Instructor Relationship Specialty Start Date End Date Maximo Taylor MD [address] [place], [place] [address] [address] PCP - General Family Medicine 05/04/23 documented as of this encounter
--- OUTSIDE RECORDS SUMMARY | 2024-08-30 18:14 | External Medical Summary ---
Author Name Unknown Address Unknown Organization K0G:LABORATORY [facility] 57-[address] - [address] [facility] [address] [place] [address] Laboratory Report Ordering Provider Test Date Status SUSHANT JENKINS 06/26/2024 05:44:00 Final Observation Date Value Abnormality Reference (Units ) Status Albumin 06/26/2024 05:44:00 3.6 Below low normal 3.8-5.0 (g/dL) Final AST (Aspartate aminotransferase) 06/26/2024 05:44:00 13 10-50 (U/L) Final Alk Phos 06/26/2024 05:44:00 74 35-130 (U/L) Final ALT (Alanine aminotransferase) 06/26/2024 05:44:00 10 10-50 (U/L) Final Bilirubin, Total 06/26/2024 05:44:00 0.3 <=1.2 (mg/dL) Final Bilirubin, Direct 06/26/2024 05:44:00 0.2 0.0-0.3 (mg/dL) Final Protein 06/26/2024 05:44:00 5.9 Below low normal 6.0-8.3 (g/dL) Final Performing Location LABORATORY [facility] 57-[address] 0 - [address] [place] [address]
--- OUTSIDE RECORDS SUMMARY | 2024-08-30 18:14 | External Medical Summary ---
Author Name Unknown Address Unknown Organization K0G:LABORATORY [facility] 57-[address] - [address] [place] [address] Laboratory Report Ordering Provider Test Date Status SUSHANT JENKINS 05/17/2024 05:39:00 Final Observation Date Value Abnormality Reference (Units ) Status SYNC LEUKOCYTES IN BLOOD BY AUTOMATED COUNT 05/17/2024 05:39:00 5.86 4.00-10.80 (K/uL) Final Neutrophils/100 leukocytes in Blood by Manual count 05/17/2024 05:39:00 60.0 40.0-75.0 (%) Final Lymphocytes/100 leukocytes in Blood by Manual count 05/17/2024 05:39:00 25.0 18.0-42.0 (%) Final Monocytes/100 leukocytes in Blood by Manual count 05/17/2024 05:39:00 11.0 1.0-11.0 (%) Final Eosinophils/100 leukocytes in Blood by Manual count 05/17/2024 05:39:00 4.0 0.0-6.0 (%) Final Neutrophils [#/volume] in Blood by Manual count 05/17/2024 05:39:00 3.52 1.80-7.70 (K/uL) Final Lymphocytes [#/volume] in Blood by Manual count 05/17/2024 05:39:00 1.47 1.00-4.80 (K/uL) Final Monocytes [#/volume] in Blood by Manual count 05/17/2024 05:39:00 0.64 0.00-1.10 (K/uL) Final Eosinophils [#/volume] in Blood by Manual count 05/17/2024 05:39:00 0.23 0.00-0.70 (K/uL) Final Nucleated erythrocytes/100 leukocytes [Ratio] in Blood by Automated count 05/17/2024 05:39:00 Final Variant lymphocytes [Presence] in Blood by Light microscopy 05/17/2024 05:39:00 Present Abnormal None Seen Final Performing Location LABORATORY [place] 57-1 0 - [address] [place] [address]
--- OUTSIDE RECORDS SUMMARY | 2024-08-30 18:14 | External Medical Summary ---
Author Name Unknown Address Unknown Organization [facility] - [address] [place] [address] Laboratory Report Ordering Provider Test Date Status SUSHANT JENKINS 05/03/2024 05:28:00 Final Observation Date Value Abnormality Reference (Units ) Status WBC, Total 05/03/2024 05:28:00 5.26 4.00-10.8 0 (K/uL) Final RBC 05/03/2024 05:28:00 4.15 4.50-5.25 (M/uL) Final Hemoglobin 05/03/2024 05:28:00 13.2 Below low normal 14 .0-16.8 (g/dL) Final HCT 05/03/2024 05:28:00 41.2 40.0-48.4 (%) Final MCV 05/03/2024 05:28:00 99.3 82.0-99.5 (fL) Final MCH 05/03/2024 05:28:00 31.8 27.0-34.0 (pg) Final MCHC 05/03/2024 05:28:00 32.0 32.0-36.0 (g/dL) Final RDW 05/03/2024 05:28:00 15.0 11.5-15.5 (%) Final Platelets 05/03/2024 05:28:00 224 140-400 (K /uL) Final MPV 05/03/2024 05:28:00 10.1 6.6-11.1 ( fL) Final Performing Location LAB[facility]ATORY [facility] 57-1 0 - [address] [place] [address]
--- OUTSIDE RECORDS SUMMARY | 2024-08-30 18:14 | External Medical Summary | Summary of Care ---
Author Name Unknown Organization [facility] Address [address] [facility] [address] Phone [phone] Care Team Providers Care Special Diet Cook Name Role Phone Maximo Taylor MD Primary Care Provide r Reason for Visit * Reason Onset Date Comments Usp Visit 06/13/2024 Regulatory Encounter Details Date Type Department Care Team (Latest Contact Info) Description 06/13/2024 12:00 PM EST Usp Visit [address] [place] [address] Maximo Taylor MD [address] [place] [address] [place] [phone] ESRD on dialysis ([facility]; COPD, moderate (HCC); Secondary hyperparathyroidism of renal origin (HCC); PAF (paroxysmal atrial fibrillation) (HCC); Anemia in chronic kidney disease, on chronic dialysis (HCC); A-V fistula (HCC); Renal artery stenosis (HCC); Ascites due to alcoholic cirrhosis ([facility]); Secondary esophageal varices with bleeding ([facility]); Chronic HFrEF (heart failure with reduced ejection fraction) ([facility]) Allergies Active Allergy Reactions Criticality Noted Date Comments Lisinopril 04/09/2023 documented as of this encounter (statuses as of 06/13/2024) Medications Amiodarone HCl 200 MG Oral Tablet (Cordarone) Take 1 Tablet by mouth in the morning. 08/03/20 23 Active Auryxia 1 GM 210 MG(Fe) [...] Capsule by mouth at bedtime. 01/22/20 Active Brule Caps 1 MG Oral Capsule [...] 1 Tablet by mouth in the morning. 08/04/20 23 Active traZODone HCl 50 MG Oral [...] as of this encounter (statuses as of 06/13/2024) Active Problems Problem Noted Date Diagnosed Date [...] as of this encounter (statuses as of 06/13/2024) Resolved Problems Problem Noted Date Diagnosed Date Resolved Date SBO (small bowel obstruction) 10/19/2023 11/17/2023 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 11/17/2023 Full code status 01/21/2023 10/01/2023 documented as of this encounter (statuses as of 06/13/2024) Immunizations Name Administration Dates Next Due Seasonal [...] Progress Notes * Maximo Taylor MD - 06/13/2024 1:11 PM EST Regulatory Visit TRANSITION EVENT: Type: Regulatory visit Date: June 13 Code Status: Full Code Name: Sisi Redmond Date of : 1950 This note pertains to care provided at [facility]. Please see facility medical record for original note. This note is not to be edited or addended in [employer]. Editing or addending needs to occur in the facilities medical record. S: Sisi Rubio [place] seen today as part of a regulatory visit. Has history of : Patient Active Problem List Diagnosis FX CORONOID [...] severe MR, severe TR, moderate pulmonary HTN. [facility] BRAIN ANEURYSM REPR, SIMPLE 2013 MRI compatible brain aneurysm clip [facility] [place] COLONOSCOPY CYSTOSCOPY/BIOPSY 03/29/2023 cystoscopy, fulgaration of bladder lesion. Dr Reyna, [facility] INFORMATION removal of benign neoplasm nose [place] COLSC FLX W/RMVL OF TUMOR POLYP LESION SNARE TQ four sessile polyps ascending colon and cecum. [place] CREAT AV FISTULA,AUTOGENOUS GRAFT Left 03/23/2023 Dr. [...] quittin.9 Smokeless tobacco: Never Vaping Use Vaping status: [...] indicates: Allergen Reactions Lisinopril He is now not having any current problems.. Is not having pain issues. Is not having behavioral problems. Results for orders placed or performed in visit on 05/31/24 CBC Result Value Ref Range WBC 4.79 4.00 - 10.80 K/uL RBC 4.04 4.50 - 5.25 M/uL HGB 12.8 (L) 14.0 - 16.8 g/dL HCT 39.7 (L) 40.0 - 48.4 % MCV 98.3 82.0 - 99.5 fL MCH 31.7 27.0 - 34.0 pg MCHC 32.2 32.0 - 36.0 g/dL RDW 14.8 11.5 - 15.5 % PLT 218 140 - 400 K/uL MPV 9.3 6.6 - 11.1 fL nRBCs 0 <=0 /100 WBCs DIFFERENTIAL, AUTOMATED Result Value Ref Range WBC 4.79 4.00 - 10.80 K/uL Neutrophils % 55.1 40.0 - 75.0 % Lymphocytes % 21.3 18.0 - 42.0 % Monocytes % 16.1 (H) 1.0 - 11.0 % Eosinophils % 5.4 0.0 - 6.0 % Basophils % 1.5 0.0 - 2.0 % Immature Granulocytes % 0.6 0.0 - 2.0 % Absolute Neutrophils 2.64 1.80 - 7.70 K/uL Absolute Lymphocytes 1.02 1.00 - 4.80 K/ul Absolute Monocytes 0.77 0.00 - 1.10 K/uL Absolute Eosinophils 0.26 0.00 - 0.70 K/uL Absolute Basophils 0.07 0.00 - 0.20 K/uL Absolute Immature Granulocytes 0.03 0.00 - 0.20 K/uL ROS: CONSTITUTIONAL: No change in weight, No fevers, sweats, or chills, and +generalized weakness EYE: No recent significant change in vision [...] No cough, sputum, or hemoptysis, No wheezing, and No recent change in breathing CARDIOVASCULAR: No chest pain, No shortness of breath, No orthopnea, No paroxysmal nocturnal dyspnea, No palpitations, No syncope, and +chronic edema GASTROINTESTINAL: No abdominal pain, No change in bowel habits, No significant heartburn, No significant change in appetite, No nausea, vomiting, diarrhea, or constipation, No blood in stools or black tarry stools, No dysphagia, and +cirrhosis with ascites MALE: +BPH and on dialysis HEMATOLOGIC: No coagulation disorder, No abnormal bleeding, No chills, No bruising, No weight loss,and +anemia of CKD EXTREMITIES: +OA SKIN/INTEGUMENTARY: No rash NEUROLOGIC: No headaches and + seizure disorder PSYCHIATRIC: No depression, No anxiety, and No psychosis O: I reviewed the most recent facilities vitals. General: alert, no distress, and chronically ill appearing male seated in a recliner Head: Normocephalic, No masses, lesions, tenderness or abnormalities Neuro: alert & oriented x 3 with fluent speech, no focal motor/sensory deficits Eye Exam: PERRLA, extraocular movements intact, conjunctiva are pink and non- injected, sclera clear Ears: External ears normal Nose: no mucosal erythema, no mucosal edema, no purulent discharge. +large pendunculated lesion on tip of nose Oropharynx: no exudate, no erythema, lips, buccal mucosa, and tongue normal, and mucous membranes are moist Neck: supple, no adenopathy, no bruits Heart: regular rate & rhythm, no murmur, and no gallops Lungs: chest symmetric with normal AP diameter, no chest deformities noted, no chest wall tenderness, lungs clear to auscultation Abdomen: abdomen soft, non-tender, normal bowel sounds, and no masses or organomegaly Extremities: no clubbing, no cyanosis, 1+ edema bilateral lower extremities A: ESRD on dialysis ([facility]) (Primary)--compliant with dialysis. COPD, moderate ([facility])--stable. Continue oxygen. Secondary hyperparathyroidism of renal origin ([facility])--stable. Followed by nephrology. PAF (paroxysmal atrial fibrillation) ([facility])--rate controlled. On Amiodarone 200 mg daily Anemia in chronic kidney disease, on chronic dialysis ([facility])--continue Auryxia and Renocaps. A-V fistula ([facility])--stable Renal artery stenosis ([facility])--stable Ascites due to alcoholic cirrhosis ([facility])--has been stable without recent paracentesis. Secondary esophageal varices with bleeding ([facility])--no bleeding. Continue famotidine 20 mg daily Chronic HFrEF (heart failure with reduced ejection fraction) ([facility])--continue furosemide 80 mg dailyand dialysis for fluid management P: Medications reviewed. Please refer to MAR in the facility's medical record for the most up-to-date medication list. Continue present medication(s): Reviewed intermediate record for: vital signs, weight, bowel, and bladder function, and ADLs. Labs reviewed Continue current treatment plan as ordered Continue to follow up as needed and as scheduled Custodial Home Treatment Given: n/a Electronically signed by: Maximo Taylor MD I spent a total of 30-39 minutes (exact time 31 mins) on the date of service in preparation, delivery, and documentation of the care provided to Sisi Redmond excluding any time spent in the performance of separately billed services or time spent by another provider/QHP. documented in this encounter Plan of Treatment Upcoming Encounters Date Type Department Care Team (Late st Contact Info) Description 07/11/2024 8:00 AM EST Office Visit Hepatology, [facility] [address] [place] [address] Latoya Selby DO [address] [place] [address] 08/18/2024 9:00 AM EST Imaging Radiology [address] [place] [address] Health Maintenance Due Date Last Done Comments [...] dialysis (HCC)- Primary End stage renal disease COPD, moderate (HCC) Chronic airway obstruction, not elsewhere classified Secondary hyperparathyroidism of renal origin (HCC) Secondary hyperparathyroidism (of renal origin) PAF (paroxysmal atrial fibrillation) (HCC) Atrial fibrillation Anemia in chronic kidney disease, on chronic dialysis (HCC) A-V fistula (HCC) Arteriovenous fistula, acquired Renal artery stenosis (HCC) Atherosclerosis of renal artery Ascites due to alcoholic cirrhosis (HCC) Secondary esophageal varices with bleeding (HCC) Esophageal varices with bleeding in diseases classified elsewhere Chronic HFrEF (heart failure with reduced ejection fraction) (HCC) documented in this encounter Care Teams Special Diet Cook Relationship Specialty Start Date End Date Maximo Taylor MD [address] [place] [address] PCP - General Family Medicine 05/04/23 documented as of this encounter
--- OUTSIDE RECORDS SUMMARY | 2024-08-30 18:14 | External Medical Summary | Summary of Care ---
Author Name Unknown Organization [facility] Address [address] [facility] [place] [address] Phone [phone] Care Team Providers Care Counterintelligence Agent Name Role Phone Maximo Taylor MD Primary Care Provide r Reason for Visit * Reason Comments Follow Up Pt here for follow u p for cirrhosis; no concerns Encounter Details Date Type Department Care Team (Late st Contact Info) Description 07/11/2024 8:00 AM EST Office Visit Hepatology, [facility] [address] [place] [address] Latoya Selby DO [address] [place] [phone] Ascites due to alcoholic cirrhosis (HCC)* Allergies Active Allergy Reactions Criticality Noted [...] Overview (07/19/2023): basal cell carcinoma (L nare 1/24) Secondary esophageal varices with bleeding 06/29 [facility] [...] Sign Reading Time Taken Comments Blood Pressure 116/58 07/11/2024 7:53 AM EST Pulse 60 07/11/2024 7:53 AM EST Temperature - - Respiratory Rate 18 07/11/2024 7:53 AM EST Oxygen Saturation 97% 07/11/2024 7:53 AM EST Inhaled Oxygen Concentration - - Weight 76.7 kg (169 lb) 07/11/2024 7:53 AM EST p t reported Height - - Body Mass Index 33.01 02/14/2024 8:23 AM EDT documented in this encounter Progress Notes * Latoya Selby, - 07/11/2024 8:10 AM EST Images from the original note were not included. Hepatology Clinic Note Date of appointment: 07/11/2024 History of Present Illness: Sisi Redmond is a 73 year old M with PMH of decompenasted alcohol cirrhosis c/b ascites here today for follow up. Last seen 03/2023. Referred by Brianna Orozco PA-C. He has PMH notable for ESRD on dialysis, Alzheimer's, atrial fibrillation, HTN, COPD, intracranial hemorrhage 2012, ] urothelial lesion concerning for malignancy following [facility], COPD on home O2, history of seizures, history of cerebral aneurysm repair at 2012 at [facility]. He live at [facility] and is accompanied by a caregiver with him today. He has no records scanned in the chart or with him today and he is a very poor historian about his liver disease. In regards to his urothelial masses he saw [facility] and was diagnosed with papillary transitional cell carcinoma and is undergoing fulguration. He was deemed a poor surgical candidate.he states they are jsut watching him with this and no more treatments are planned. He has had recurring ascites and was requiring paracentesis weekly for 8-10L but now he hasn't needed a paracentesis per patient and caregiver for over 6+ months. They attempted paracentesis in March but there was not enough fluid. He is anuric and can not take any diuretics due to his ESRD. He was doing peritoneal dialysis but this was stopped because it got infected and now he is getting dialysis through an AV fistula. He was not aware of any liver issues until 2021. He states he was a heavy drinker [...] had a colonoscopy before in his life. He had a complete serological work up negative for other causes of liver disease so determined to be due to his history of alcohol abuse. He has been ordered ultrasounds for HCC screening which he has not been doing. He states is only doing the minimal that is needed. He is continuing with dialysis but he does not want aggressive measures. Does not want to be hospitalized anymore. Today he denies any LE swelling, jaundice, ascites, confusion, melena, hematochezia, hematemesis. States he has not followed up with urology regarding the urothelial lesion. Daughter decided against pursuing any further work up. Decompensations: Varices: concern for duodenal varices but no esophageal or [facility] Ascites: yes SBP: no HRS: no HE: no HCC: no Screening: EGD: 04/[address] [facility]- no esophageal or gastric varices mentioned but was noted tohave concern for duodenal varices Colonoscopy: 04/[address] [facility]- 5 polyps, a 25 mm polyp at the splenic flexure Liver imaging: CT abd/pelvis 01/2023- no liver [...] severe MR, severe TR, moderate pulmonary HTN. [facility] BRAIN ANEURYSM REPR, SIMPLE 2012 MRI compatible brain aneurysm clip [facility] [place] COLONOSCOPY CYSTOSCOPY/BIOPSY 03/29/2023 cystoscopy, fulgaration of bladder lesion. Dr Reyna, [facility] INFORMATION removal of benign neoplasm nose [place] COLSC FLX W/RMVL OF TUMOR POLYP LESION SNARE TQ four sessile polyps ascending colon and cecum. [place] CREAT AV FISTULA,AUTOGENOUS GRAFT Left 03/23/2023 Dr. [...] 1 Tablet by mouth in the morning. EPINEPHrine 0.3 MG/0.3ML Injection Solution Prefilled Syringe Inject as directed. Ipratropium-Albuterol 0.5-2.5 (3) MG/3ML Inhalation Solution (Duoneb) Inhale 3 mL via nebulizer every 4 hours as needed for Wheezing. Loratadine 10 MG Oral Tablet (Claritin) Take 1 Tablet by mouth every other day. Melatonin 5 MG Oral Capsule Take 1 Capsule by mouth at bedtime. Wiley Caps 1 MG Oral Capsule Take 1 Capsule by mouth in the morning. Stiolto Respimat 2.5-2.5 MCG/ACT Inhalation Aerosol Solution (Tiotropium- Olodaterol) Inhale 2 Puffsby mouth in the morning. Suplena 1.8/CarbSteady Oral Liquid triamcinolone 0.1% in hydrophilic ointment 2:1 Apply topically to affected area 2 times a day. Acetaminophen 325 MG Oral Tablet (Tylenol) Take 2 Tablets by mouth every 4 hours as needed for Fever >38C(100.5F), Pain, Mild, Pain, Moderate or Pain, Severe. Vitamin B-1 100 MG Oral Tablet Take 1 Tablet by mouth in the morning. Vitamin D3 125 MCG (5000 UT) Oral Capsule Take 1 Capsule by mouth in the morning. Famotidine 20 MG Oral Tablet (Pepcid) Take 1 Tablet by mouth in the morning. traZODone HCl 50 MG Oral Tablet (Desyrel) Take 1 Tablet by mouth at bedtime. Albumin Human 25 % Intravenous Solution 25Gm before and after paracentesis 100 mL 0 Sodium Zirconium Cyclosilicate 5 GM Oral Packet (Lokelma) 1 packet by mouth daily on non-dialysis days (Wednesday, , Sat and Sun Furosemide 80 MG Oral Tablet (Lasix) Take 1 Tablet by mouth in the morning and 1 Tablet before bedtime. Fluticasone Propionate 50 MCG/ACT Nasal Suspension (Flonase) Administer 2 Sprays into each nostril in the morning. Docusate Sodium 100 MG Oral Capsule (Colace) Take 2 Capsules by mouth in the morning and 2 Capsulesbefore bedtime. Polyethylene Glycol 3350 17 GM/SCOOP Oral Powder (Miralax) Take 17 g by mouth in the morning. Dissolve one heaping tablespoon in 8 ounces of water or juice.. Albumin Human 25 % Intravenous Solution 25Gm before and after paracentesis 100 mL 0 traMADol HCl 50 MG Oral Tablet (Ultram) Take 1 Tablet by mouth every 6 hours as needed for Pain, Moderate or Pain, Severe. 12 Tablet 0 Midodrine HCl 5 MG Oral Tablet (Proamatine) Take 1 Tablet by mouth in the morning and 1 Tablet at noon and 1 Tablet in the evening. MWF. Ondansetron HCl 4 MG Oral Tablet (Zofran) Take 1 Tablet by mouth every 6 hours as needed for Nausea. Refresh 1.4-0.6 % Ophthalmic Solution (polyvinyl alcohol-povidone PF) 1 Drop as needed. No current facility-administered medications for this visit. Review of patient's allergies indicates: Allergen Reactions Lisinopril Physical Exam: vitals: BP 116/58 | Pulse 60 | Resp 18 | Wt 76.7 kg (169 lb) Comment: pt reported | SpO2 97% | BMI 33.01 kg/m | BSA 1.8 m GENERAL: chronically ill appearing, sitting in wheelchair, oxygen tank with him, notable sarcopenia. SKIN: No rashes, ulcers, jaundice or spider angiomata. Deformity of his nose. HEENT: Normocephalic, sclera anicteric NECK: Supple LUNGS: Clear to auscultation bilaterally, no respiratory distress or accessory muscles used. HEART: Regular rate & rhythm, no murmurs ABDOMEN: Normal bowel sounds, soft and nontender, small ascites EXTREMITIES: No palmar erythema, 1+ lower extremity edema. NEURO: No lateralizing findings. Sensory/Motor grossly normal. No asterixis present on exam. Recent Labs: Reviewed MELD 3.0: 25 at 02/14/2024 9:13 AM Calculated from: Serum Creatinine: 9.2 mg/dL (Using max of 3 mg/dL) at 02/14/2024 9:13 AM Serum Sodium: 130 mmol/L at 02/14/2024 9:13 AM Total Bilirubin: 0.3 mg/dL (Using min of 1 mg/dL) at 02/14/2024 9:13 AM Serum Albumin: 3.8 g/dL (Using max of 3.5 g/dL) at 02/14/2024 9:13 AM INR(ratio): 1.1 at 02/14/2024 9:13 AM Age at listing (hypothetical): 73 years Sex: Male at 02/14/2024 9:13 AM Recent Imaging Studies: Reviewed Abdominal US 02/16/2024: IMPRESSION 1. Hepatic cirrhosis. No discrete hepatic lesion. 2. Mild ascites. 3. Right renal cysts. 4. Right pleural fluid. CT abd/pelvis w/ contrast 02/10/2023: Recent Endoscopic Procedures: Reviewed Assessment and plan: Sisi Redmond is a 73 year old M with PMH of decompenasted alcohol cirrhosis c/b ascites here today for follow up. He has PMH notable for ESRD on dialysis, Alzheimer's, atrial fibrillation, HTN, COPD, intracranial hemorrhage 2012, recent urothelial lesion concerning for malignancy following [facility],COPD on home O2, history of seizures, history of cerebral aneurysm repair at 2013 at [facility]. -Liver disease severity. We will get MELD labs today.This will likely be falsely elevated as he is on dialysis. His cirrhosis is most likely due to alcohol given many years of abuse. Complete serological work up negative for other causes of liver disease. -Variceal screenin04/[address] [facility]- no esophageal or gastric varices mentioned but was noted to have concern for duodenal varices. He does not want to pursue any future endoscopies given his other medical comorbidities. -Fluid status: based on today's physical exam, the pt. has 1+ pedal edema and small ascites. He is anuric due to dialysis and can not be placed on any diuretics. I strongly recommend a 2 gram sodium restricted diet. He was getting weekly paracentesis of 8-10L up until 4 months ago and has not needed one since. He does have a standing order through [facility] as needed for weekly paracentesis. -Hepatic encephalopathy: based on today's examination, the pt. does not have asterixis.he has no history of HE. -Renal function: he is ESRD on dialysis -HCC screening. Pt.'s last liver imaging study was done 01/2024. Pt will need HCC screening every 6 months with imaging in conjunction with an AFP. Order placed for abdominal ultrasound with AFP. Due again 07/2024 which is scheduled 08/18/24. -Avoid liver toxins including over the counter herbal supplements. May take Acetaminophen up to 2 grams a day. Avoid NSAIDS due to increased risk of GI bleeding and fluid retention. Avoid all alcohol. Patient encouraged to avoid benzodiazepines and opiate pain medications due to risk of precipitating HE. -Colorectal cancer screenin04/[address] [facility]- 5 polyps, a 25 mm polyp at the splenic flexure. I discussed that typically we would recommend another colonoscopy in 1 year but he states he wishes to avoid any further endoscopies given his age and medical co-morbidities. -BCC of nose: had placed urgent dermatology referral in 03/2023 for a lesion on his nose that returned as BCC. They wanted MOHS but when they spoke with patient's daughter given his health she just wanted to observe this. I advised I would recommend the MOHS procedure to be done and they can discuss with dermatology. Per caregiver daughter does not want to proceed with MOHS. -Follow up in 6 months Latoya Selby DO Gastroenterology and Hepatology I spent a total of 25 minutes on the date of service in review of patient's record, and previously obtained information in person and appropriate medical visit, discussion and education of plan, withpatient and/or caregiver, placing orders for tests/referral/procedures as medically necessary and documentation of pertinent clinical information in patient's medical records for their visit today. documented in this encounter Nursing Notes * Iesha Crockett RN - 07/11/2024 8:00 AM EST Chief Complaint Patient presents with Follow Up Pt here for follow up for cirrhosis; no concerns documented in this encounter Plan of Treatment Upcoming Encounters Date Type Department Care Team (Late st Contact Info) Description 07/11/2024 8:40 AM EST Laboratory Laboratory, [address] [place] [id number] [facility] [address] [place] [address] Ascites due to alcoholic cirrhosis (HCC) 08/18/2024 9:00 AM EST Imaging Radiology [address] [place] [address] 01/23/2025 1:40 PM EDT Office Visit Hepatology, [facility] [place] [address] [place] [address] Latoya Selby DO [address] [place] [phone] Pending Results Name Type Priority Associated Diagnoses [...] alcoholic cirrhosis (HCC) 07/11/2024 8:33 AM EST Scheduled Orders Name Type Priority Associated Diagnoses Orde r Schedule HEPATIC FUNCTION PANEL Lab Routine Ascites due to alcoholic cirrhosis (HCC) Expected: 07/11/2024, Expires: 07/11/2025 PT INR Lab Routine Ascites due to alcoholic cirrhosis (HCC) Expected: 07/11/2024, Expires: 07/11/2025 CBC WITH WBC DIFFERENTIAL Lab Routine Ascites due to alcoholic cirrhosis (HCC) Expected: 07/11/2024, Expires: 07/11/2025 BASIC METABOLIC PANEL Lab Routine Ascites due to alcoholic cirrhosis (HCC) Expected: 07/11/2024, Expires: 07/11/2025 ALPHA-FETOPROTEIN TUMOR MARKER Lab Routine Ascites due to alcoholic cirrhosis (HCC) Expected: 07/11/2024, Expires: 07/11/2025 Health Maintenance Due Date Last Done Comments [...] Ascites due to alcoholic cirrhosis (HCC)- Primary Ascites due to alcoholic cirrhosis (HCC) documented in this encounter Care Teams Counterintelligence Agent Relationship Specialty Start Date End Date Maximo Taylor MD [address] [place] [address] [place] [address] PCP - General Family Medicine 05/04/23 documented as of this encounter"
--- OUTSIDE RECORDS SUMMARY | 2024-08-30 18:15 | External Medical Summary | Summary of Care ---
Author Name Unknown Organization [facility] Address [address] [place] [place] [address] Phone [phone] Care Team Providers Care Fabric Normalizer Name Role Phone Maximo Taylor MD Primary Care Provide r Reason for Visit * Reason Onset Date Comments Custodial Visit 04/20/2024 Regulatory Encounter Details Date Type Department Care Team (Latest Contact Info) Description 04/18/2024 8:30 AM EDT Custodial Visit [facility] [address] [place] [address] Brianna Orozco PA-C [address] [place], [place] [phone] ESRD on dialysis (HCC)*; Anemia in chronic kidney disease, on chronic dialysis (HCC); Ascites due to alcoholic cirrhosis (HCC); HTN, goal below 130/80; COPD, moderate ([facility]); PTSD (post-traumatic stress disorder); 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 behavioral disturbance, psychotic disturbance, mood disturbance, or anxiety ([facility]); 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 01/21/2023 Active Auryxia 1 GM 210 MG(Fe) Oral Tablet (Ferric Citrate) Take 2 Tablets by mouth in the morning and 2 Tablets at noon and 2 Tablets in the evening. Take before meals. 01/21/2023 Active Cinacalcet HCl 30 MG Oral Tablet (Sensipar) Take 1 Tablet by mouth in the morning. 01/21/2023 Active Divalproex Sodium 500 MG Oral Tablet Delayed Release (Depakote DR) Take 1 Tablet by mouth in the morning. 01/21/2023 Active EPINEPHrine 0.3 MG/0.3ML Injection Solution Prefilled Syringe Inject as directed. 01/21/2023 Active Ipratropium-Albutero l 0.5-2.5 (3) MG/3ML Inhalation Solution (Duoneb) Inhale 3 mL via nebulizer every 4 hours as needed for Wheezing. 01/21/2023 Active Loratadine 10 MG Oral Tablet (Claritin) Take 1 Tablet by mouth every other day. 01/21/2023 Active Melatonin 5 MG Oral Capsule Take 1 Capsule by mouth at bedtime. 01/21/2023 Active Mckinley Caps 1 MG Oral Capsule Take 1 Capsule by mouth in the morning. 01/21/2023 Active Stiolto Respimat 2.5-2.5 MCG/ACT Inhalation Aerosol Solution (Tiotropium-Olodater ol) Inhale 2 Puffs by mouth in the morning. 01/21/2023 Active Suplena 1.8/CarbSteady Oral Liquid Take 120 mL by mouth in the morning and 120 mL before bedtime. 01/21/2023 Active triamcinolone 0.1% in hydrophilic ointment 2:1 Apply topically to affected area 2 times a day. 01/21/2023 Active Acetaminophen 325 MG Oral Tablet (Tylenol) Take 2 Tablets by mouth every 4 hours as needed for Fever >38C(100.5F), Pain, Mild, Pain, Moderate or Pain, Severe. 01/21/2023 Active Vitamin B-1 100 MG Oral Tablet Take 1 Tablet by mouth in the morning. 01/21/2023 Active Vitamin D3 125 MCG (5000 UT) Oral Capsule Take 1 Capsule by mouth in the morning. 01/21/2023 Active Famotidine 20 MG Oral Tablet (Pepcid) Take 1 Tablet by mouth in the morning. 01/22/2023 Active traZODone HCl 50 MG Oral Tablet (Desyrel) Take 1 Tablet by mouth at bedtime. 02/25/2023 Active Albumin Human 25 % Intravenous SolutionIndications: Alcoholic cirrhosis of liver with ascites (HCC) 25Gm before and after paracentesis 100 mL 04/09/2023 Active traMADol HCl 50 MG Oral Tablet (Ultram) Take 1 Tablet by mouth every 6 hours as needed for Pain, Moderate or Pain, Severe. 40 Tablet 06/18/2023 Active Sodium Zirconium Cyclosilicate 5 GM Oral Packet (Lokelma) 1 packet by mouth daily on non-dialysis days (Wednesday, , Sat and Sun 07/21/2023 Active Furosemide 80 MG Oral Tablet (Lasix) Take 1 Tablet by mouth in the morning and 1 Tablet before bedtime. 11/17/2023 Active Fluticasone Propionate 50 MCG/ACT Nasal Suspension (Flonase) Administer 2 Sprays into each nostril in the morning. 11/17/2023 Active Docusate Sodium 100 MG Oral Capsule (Colace) Take 2 Capsules by mouth in the morning and 2 Capsules before bedtime. 01/24/2024 Active Polyethylene Glycol 3350 17 GM/SCOOP Oral Powder (Miralax) Take 17 g by mouth in the morning. Dissolve one heaping tablespoon in 8 ounces of water or juice.. 01/24/2024 Active Albumin Human 25 % Intravenous SolutionIndications: Alcoholic cirrhosis of liver with ascites (HCC) 25Gm before and after paracentesis 100 mL 03/27/2024 Active documented as of this encounter (statuses as of 04/20/2024) Active Problems Problem Noted Date Diagnosed Date [...] as of this encounter (statuses as of 04/20/2024) Resolved Problems Problem Noted Date Diagnosed Date Resolved Date SBO (small bowel obstruction) 10/19/2023 11/17/2023 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 11/17/2023 Full code status 01/21/2023 10/01/2023 documented as of this encounter (statuses as of 04/20/2024) Immunizations Name Administration Dates Next Due Seasonal [...] Progress Notes * Brianna Orozco PA-C - 04/20/2024 3:33 PM EDT REGULATORY VISIT TRANSITION EVENT: Type: Regulatory visit Date: April 18 Code Status: No Code Name: Sisi Redmond Date of : 1950 This note pertains to care provided at [facility]. Please see facility medical record for original note. This note is not to be edited or addended in [employer]. Editing or addending needs to occur in [...] severe MR, severe TR, moderate pulmonary HTN. [facility] BRAIN ANEURYSM REPR, SIMPLE 2013 MRI compatible brain aneurysm clip [facility] [place] COLONOSCOPY CYSTOSCOPY/BIOPSY 03/29/2023 cystoscopy, fulgaration of bladder lesion. Dr Reyna, [facility] INFORMATION removal of benign neoplasm nose [place] COLSC FLX W/RMVL OF TUMOR POLYP LESION SNARE TQ four sessile polyps ascending colon and cecum. [place] CREAT AV FISTULA,AUTOGENOUS GRAFT Left 03/23/2023 Dr. [...] quittin.8 Smokeless tobacco: Never Vaping Use Vaping status: [...] now having acute problem(s). Current problems include required extra dialysis due to weight gain. Pt has been eating ham and rodarte soup which family brought in. Weight was > 170 pounds. Sent for paracentesis but no ascitic fluid was noted and pt sent back to SNF. Is not having pain issues. Is not having behavioral problems. CBC Results: Results for orders placed or performed in visit on 04/19/24 CBC Result Value Ref Range WBC 5.00 4.00 - 10.80 K/uL RBC 4.01 4.50 - 5.25 M/uL HGB 12.7 (L) 14.0 - 16.8 g/dL HCT 39.6 (L) 40.0 - 48.4 % MCV 98.8 82.0 - 99.5 fL MCH 31.7 27.0 - 34.0 pg MCHC 32.1 32.0 - 36.0 g/dL RDW 14.8 11.5 - 15.5 % PLT 226 140 - 400 K/uL MPV 10.1 6.6 - 11.1 fL Hemoglobin Results: Lab Results Component Value Date/Time HGB 12.7 (L) 04/19/2024 05:43 AM HGB 12.4 (L) 04/05/2024 05:41 AM HGB 12.3 (L) 03/22/2024 05:41 AM HGB 13.1 (A) 10/14/2023 12:00 AM HGB 8.9 (A) 08/26/2023 12:00 AM HGB 9.2 (A) 08/10/2023 12:00 AM AST Results: Lab Results Component Value Date/Time AST - [facility] 11 02/14/2024 09:13 AM AST - [facility] 12 01/12/2024 05:39 AM AST - [facility] 9 (L) 12/20/2023 06:05 AM ALT Results: Lab Results Component Value Date/Time ALT - [facility] 9 (L) 02/14/2024 09:13 AM ALT - [facility] 10 01/12/2024 05:39 AM ALT - [facility] 8 (L) 12/20/2023 06:05 AM Lipid Panel Results: Results for orders placed or performed in visit on 09/22/23 LIPID PANEL WITHOUT DIRECT LDL Result Value Ref Range Triglycerides 42 <=174 mg/dL Cholesterol 109 <200 mg/dL HDL Cholesterol 49 >39 mg/dL Non-HDL Cholesterol 60 <=159 mg/dL LDL Cholesterol 52 <=129 mg/dL No results found for: "[id number]" No results found for: "[id number]" No results found for: "[id number]" 25-Hydroxy Vitamin D (ng/mL) Date Value 09/22/2023 58 Vitamin D Level Interpretation deficient: <20 ng/ml insufficient: 20-30 ng/ml normal: 31-100 ng/ml TSH Results: Lab Results Component Value Date/Time TSH - [facility] 3.08 11/03/2023 06:12 AM TSH - [facility] 2.61 09/22/2023 05:55 AM Other labs done at dialysis center ROS: CONSTITUTIONAL: +change in weight, No change in weakness, [...] No thrush, or No sore throat PULMONARY: COPD CARDIOVASCULAR: No chest pain, No shortness of breath, No dyspnea on exertion, No orthopnea, No paroxysmal nocturnal dyspnea, No edema, No palpitations, and No syncope GASTROINTESTINAL: No abdominal pain, No change in bowel habits, No significant heartburn, No significant change in appetite, No nausea, vomiting, diarrhea, or constipation, No hematemesis, No blood in stools or black tarry stools, No abdominal bloating or early satiety, and No dysphagia SKIN/INTEGUMENTARY: No edema, No rash, and No itching PSYCHIATRIC: No depression, No anxiety, and +PTSD ENDOCRINE: No heat intolerance, No cold intolerance, No thyroid trouble, and No excessive thirst orurination SLEEP: No sleep disorders O: I reviewed the most recent facilities vitals. General: alert, no distress, and chronically ill appearing Eye Exam: PERRLA, extraocular movements intact, conjunctiva [...] without nodularity Heart: regular rate & rhythm, MR murmur, and no gallops Lungs: chest symmetric with normal AP diameter, no chest deformities noted, no chest wall tenderness, lungs clear to auscultation Abdomen: abdomen soft, non-tender, normal bowel sounds, no masses or organomegaly, and ascites noted but stable Extremities: no edema, no skin discoloration, no clubbing, no cyanosis A: ESRD on dialysis (HCC) (Primary) Continue with dialysis three days weekly Labs done at dialysis center Anemia in chronic kidney disease, on chronic dialysis (HCC) Stable currently Ascites due to alcoholic cirrhosis (HCC) Follows with hepatology as directed No ascities noted at last scheduled paracentesis HTN, goal below 130/80 At goal Continue to monitor COPD, moderate (HCC) Stable Continue Stiloto and Duonebs as directed PTSD (post-traumatic stress disorder) Stable Continue Trazodone as directed 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 behavioral disturbance, psychotic disturbance, mood disturbance, or anxiety (HCC) Stable mood and mentation Continue Trazodone as directed 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 Please refer to MAR in the facility's medical record for the most up-to-date medication list. Continue present medication(s): Reviewed custodial record for: vital signs, weight, bowel, and bladder function, and ADLs. Labs reviewed Continue current treatment plan as ordered Continue to follow up as needed and as scheduled [facility] Given: as above Electronically signed by: Brianna Orozco PA-C documented in this encounter Plan of Treatment Upcoming Encounters Date Type Department Care Team (Late st Contact Info) Description 07/11/2024 8:00 AM EST Office Visit Hepatology, [facility] [address] [place] [address] Latoya Selby DO [address] [place] [address] 08/18/2024 9:00 AM EST Imaging Radiology [address] [place] [address] Health Maintenance Due Date Last Done Comments [...] (HCC) Ascites due to alcoholic cirrhosis (HCC) HTN, goal below 130/80 Unspecified essential hypertension COPD, moderate (HCC) Chronic airway obstruction, not elsewhere classified PTSD (post-traumatic stress disorder) Posttraumatic stress disorder 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 behavioral disturbance, psychotic disturbance, mood disturbance, or anxiety (HCC) 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
--- OUTSIDE RECORDS SUMMARY | 2024-08-30 18:15 | External Medical Summary ---
Author Name Unknown Address Unknown Organization [facility] [place] [address] Laboratory Report Ordering Provider Test Date Status SUSHANT JENKINS 04/19/2024 05:43:00 Final Observation Date Value Abnormality Reference (Units ) Status WBC, Total 04/19/2024 05:43:00 5.00 4.00-10.8 0 (K/uL) Final RBC 04/19/2024 05:43:00 4.01 4.50-5.25 (M/uL) Final Hemoglobin 04/19/2024 05:43:00 12.7 Below low normal 14 .0-16.8 (g/dL) Final HCT 04/19/2024 05:43:00 39.6 Below low normal 40. 0-48.4 (%) Final MCV 04/19/2024 05:43:00 98.8 82.0-99.5 (fL) Final MCH 04/19/2024 05:43:00 31.7 27.0-34.0 (pg) Final MCHC 04/19/2024 05:43:00 32.1 32.0-36.0 (g/dL) Final RDW 04/19/2024 05:43:00 14.8 11.5-15.5 (%) Final Platelets 04/19/2024 05:43:00 226 140-400 (K /uL) Final MPV 04/19/2024 05:43:00 10.1 6.6-11.1 ( fL) Final [facility] Location [facility] [address] [place] [address]
--- OUTSIDE RECORDS SUMMARY | 2024-08-30 18:15 | External Medical Summary | Summary of Care ---
Author Name Unknown Organization [facility] Address [address] [facility] [place] [address] Phone [phone] Care Team Providers Care Compliance Review Specialist Name Role Phone Maximo Taylor MD Primary Care Provide r Encounter Details Date Type Department Care Team (Late st Contact Info) Description 04/18/2024 Orders Only Lab Mobile Phlebotomy [facility] [address] [employer] [place] [address] Maximo Taylor MD [address] [place] [address] [place] [address] Alcoholic cirrhosis of liver with ascites (HCC)* Allergies Active Allergy Reactions Criticality Noted Date Comments Lisinopril 04/09/2023 documented as of this encounter (statuses as of 04/18/2024) Medications Medication Sig Dispensed Refills Start Date [...] Capsule by mouth at bedtime. 01/21/2023 Active Bertie Caps 1 MG Oral Capsule Take 1 [...] as of this encounter (statuses as of 04/18/2024) Active Problems Problem Noted Date Diagnosed Date [...] as of this encounter (statuses as of 04/18/2024) Resolved Problems Problem Noted Date Diagnosed Date Resolved Date SBO (small bowel obstruction) 10/19/2023 11/17/2023 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 11/17/2023 Full code status 01/21/2023 10/01/2023 documented as of this encounter (statuses as of 04/18/2024) Immunizations Name Administration Dates Next Due Seasonal [...] Care Team (Late st Contact Info) Description 04/19/2024 5:10 AM EDT Laboratory Lab Mobile Phlebotomy [facility] [address] [employer] [employer] [place] [address] [place] [address] 07/11/2024 8:00 AM EST Office Visit Hepatology, [facility] [address] [facility] [place] [address] Latoya Selby DO [address] [facility] [place] [address] 08/18/2024 9:00 AM EST Imaging Radiology [address] [place] [address] Scheduled Orders Name Type Priority Associated Diagnoses Orde r Schedule CBC WITH WBC DIFFERENTIAL Lab Routine Alcoholic cirrhosis of liver with ascites (HCC) Expected: 04/19/2024, Expires: 04/18/2025 Health Maintenance Due Date Last Done Comments [...] liver documented in this encounter Care Teams Compliance Review Specialist Relationship Specialty Start Date End Date Maximo Taylor MD [address] [place], [place] [address] [address] PCP - General Family Medicine 05/04/23 documented as of this encounter
--- OUTSIDE RECORDS SUMMARY | 2024-08-30 18:15 | External Medical Summary ---
Author Name Unknown Address Unknown Organization [facility] [address] [facility] [address] Laboratory Report Ordering Provider Test Date Status SUSHANT JENKINS 04/19/2024 05:43:00 Final Observation Date Value Abnormality Reference (Units ) Status SYNC LEUKOCYTES IN BLOOD BY AUTOMATED COUNT 04/19/2024 05:43:00 5.00 4.00-10.80 (K/uL) Final Segs 04/19/2024 05:43:00 55.2 40.0-75.0 (%) Final Lymphs % 04/19/2024 05:43:00 19.6 18.0-42.0 (%) Final Monos 04/19/2024 05:43:00 17.8 Above high normal 1.0-11.0 (%) Final Eosinophils 04/19/2024 05:43:00 6.4 Above high normal 0.0-6.0 (%) Final Basos 04/19/2024 05:43:00 1.0 0.0-2.0 (%) Final Absolute Segs 04/19/2024 05:43:00 2.76 1.80-7.70 (K/uL) Final Lymphs, absolute 04/19/2024 05:43:00 0.98 Below low normal 1.00-4.80 (K/ul) Final Monos, Abs 04/19/2024 05:43:00 0.89 0.00-1.10 (K/uL) Final Eos, Abs 04/19/2024 05:43:00 0.32 0.00-0.70 (K/uL) Final Basos, Abs 04/19/2024 05:43:00 0.05 0.00-0.20 (K/uL) Final Performing Location [facility] [address] [place] [address]
--- OUTSIDE RECORDS SUMMARY | 2024-08-30 18:15 | External Medical Summary | Continuity Of Care Document ---
Author Name Unknown Address [address] [place] [address] Organization [facility] ( ) Care Team Providers Care Solar Designer/Installer Name Role Phone Maximo Taylor Primary Care Provider [phone] Problems Code Description Start Date End Date Status J18.8 Other pneumonia, unspecified organism Active K56.690 Other partial intestinal obstruction 10/19/2023 Active N18.6 End stage renal disease 10/19/2023 A ctive K92.1 Melena 10/19/2023 Active I48.3 Typical atrial flutter 10/19/2023 Ac tive J18.8 Other pneumonia, unspecified organism Active A41.9 [...] as to partial versus complete obstruction 04/30/2023 A ctive K92.2 Gastrointestinal hemorrhage, unspecified 2022 Active D64.9 Anemia, unspecified 04/30/2023 Activ e R74.8 [...] Active I48.0 Paroxysmal atrial fibrillation 09/30/2023 Active G40.909 Epilepsy, unspecifie d, not intractable, without status epilepticus 09/30/2023 Active K56.690 Other partial intestinal obstruction 10/19/2023 Active M25.532 Pain in left wrist 04/20/2023 Active R26.81 Unsteadiness on feet 12/16/2022 Acti ve R48.8 Other symbolic dysfunctions 12/16/2022 00 Active R13.11 Dysphagia, oral phase 12/16/2022 Act magdi M62.81 Muscle weakness (generalized) 12/16/2022 Active Z74.1 Need for assistance with personal care 12/17/19 Active R26.89 Other abnormalities of gait and mobility 2022 Active R53.1 Weakness 12/16/2022 Active U07.1 COVID-19 02/25/2024 03/06/2024 Completed K56.609 Unspecified intestin al obstruction, unspecified as to partial versus complete obstruction 04/30/2023 Active U07.1 COVID-19 02/25/2023 Active R26.9 Unspecified abnormal ities of gait and mobility 12/10/2022 Active J44.1 Chronic obstructive pulmonary disease with (acute) exacerbation 11/11/2023 Active R53.1 Weakness 11/11/2023 Active M62.81 Muscle weakness (generalized) 12/24/2023 Active R26.81 Unsteadiness on feet 12/24/2023 Acti ve M10.9 Gout, unspecified 12/24/2023 Active R26.2 Difficulty in walkin g, not elsewhere classified 12/24/2023 Active J44.9 Chronic obstructive pulmonary disease, unspecified 04/11/2024 Active VITAL SIGNS Date Time Diastolic blood pressure Systolic blood pressure Body height Body weight Temperature SpO2 Blood Sugar Pulse Respirations 012 46720 1 160.00 NI 01610 014 56254 1 168.00 NI 70484 016 72200 4 167.00 NI 44079 018 19502 9 166.00 NI 81738 020 85819 9 159.00 NI 33028 022 92843 0 158.00 NI 50126 024 48926 5 168.00 NI 68529 026 66158 6 153.00 NI 58179 028 10158 8 176.00 NI 88814 029 90954 9 168.00 NI 96760 030 22878 9 163.00 NI Immunizations Vaccine Date Status COVID-19 09/11/2020 Completed COVID-19 10/08/2020 Completed COVID-19 12/16/2022 Completed COVID-19 04/20/2023 Completed Influenza 03/21/2022 Completed Influenza 04/02/2023 Completed (PCV13)Pneumococcal 04/19/2017 Completed Other 09/16/2023 Completed (PPSV23)Pneumococcal 02/08/2019 Completed Shingles 10/02/2021 Completed Tetanus 04/07/2011 Completed H1N1 08/07/2009 Completed TDaP 09/28/2016 Completed Shingles 2 04/10/2022 Completed
[2024-08-30] MEDS: FAMOTIDINE 20 MG TAB PO SCH (19:15)
[2024-08-30] MEDS: ALBUT/IPRATROP 3MG/0.5MG NEB 3 ML VIAL INH SCH (19:44)
[2024-08-30] MEDS: AMIODARONE 200 MG TAB PO SCH (20:31)
[2024-08-30] MEDS: DOXYCYCLINE HYCLATE 100 MG CAP PO SCH (20:32)
[2024-08-30] MEDS: MELATONIN 3 MG TAB PO SCH (20:32)
[2024-08-30] MEDS: FLUTICASONE PROPIONATE NA SPR 16 GM BTL SCH (20:32)
[2024-08-30] MEDS: traZODone HCL 50 MG TAB PO SCH (20:32)
[2024-08-30] MEDS: SODIUM ZIRCONIUM CYCLOSILICATE 10 GM PACKET PO STA (22:39)
[2024-08-30] MEDS ORDERED: Nursing to Pharmacy Communication SCH (22:45)
--- OUTSIDE RECORDS SUMMARY | 2024-08-31 04:25 | External Medical Summary | Summary of Care ---
Author Name Unknown Organization [facility] Address [address] [facility] [place] [address] Phone [phone] Care Team Providers Care Directory Assistance Operator Name Role Phone Maximo Taylor MD Primary Care Provide r Reason for Visit * Reason Onset Date Comments Complicated Acute Visit 08/30/2024 Encounter Details Date Type Department Care Team (Latest Contact Info) Description 08/30/2024 6:30 AM EDT Intermediate Visit [facility] [address], [place] [id number] Brianna Orozco PA-C [address] [place] [address] Transient alteration of awareness*; Recurrent falls; Anemia in chronic kidney disease, on chronic dialysis ([facility]); 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 behavioral disturbance, psychotic disturbance, mood disturbance, or anxiety ([facility]); Ascites due to alcoholic cirrhosis ([facility]); PAF (paroxysmal atrial fibrillation) ([facility]); Severe mitral regurgitation by prior echocardiogram; History of influenza Allergies Active Allergy Reactions Criticality Noted Date Comments Lisinopril 04/09/2023 documented as of this encounter (statuses as of 08/30/2024) Medications Amiodarone HCl 200 MG Oral Tablet [...] Capsule by mouth at bedtime. 01/22/20 Active Carlton Caps 1 MG Oral Capsule Take 1 [...] Take 1 Tablet by mouth at bedtime. 09/07/20 23 Active Albumin Human 25 % Intravenous [...] as of this encounter (statuses as of 08/30/2024) Active Problems Problem Noted Date Diagnosed Date [...] as of this encounter (statuses as of 08/30/2024) Resolved Problems Problem Noted Date Diagnosed Date Resolved Date SBO (small bowel obstruction) 10/19/2023 11/17/2023 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 11/17/2023 Full code status 01/21/2023 10/01/2023 documented as of this encounter (statuses as of 08/30/2024) Immunizations Name Administration Dates Next Due Seasonal [...] Progress Notes * Brianna Orozco PA-C - 08/30/2024 10:27 AM EDT Name: Sisi Redmond Date of :1950 TRANSITION EVENT: Type: Transfer to ED Date: August 30 Code Status: No Code This note pertains to care provided at [facility]. Please see facility medical record for original note. This note is not to be edited or addended in [employer]. Editing or addending needs to occur in the facilities medical record. Subjective: Sisi Redmond is a 74 year old male. Patient being seen for altered mental status Chief Complaint Patient presents with Complicated Acute Visit HPI: Pt, who is LTC resident at [facility] with history of ESRD on dialysis (three days weekly), ETOH related liver cirrhosis with ascites, COPD, severe MR, mild dementia, PTSD and CHF was noted by staff this morning to have a change in his behavior and altered mental status. Pt was diagnosed with Influenza A last week and is on dialysis dosing of Tamiflu. Pt had a fall several weeks ago complaining of LS back pain. XRays done 08/24/24 revealed age indeterminate fx T12 and L1, do not appear acute, possibly old. Pt stated he has fallen multiple times over the years and injured his back but never went to seek medical care for this. He denied numbness in LEs or bowel incontinence. Pt has fallen several times since, sustaining skin tears on his forearms. There is no documentationthat pt has sustained a head injury during any of his falls. Vital signs stable. Pt continues to begenerally weak with his Influenza A. This morning, pt was eating his breakfast slowly but he has always been able to get ready for dialysis with encouragement. He seemed confused according to staff. He was unable to follow commands to get dressed so he missed his dialysis session today. He denies any pain issues. He was able to remember that Therapy assessed him yesterday and told him he needs Therapy to "strengthen my legs and knees". Labs done at dialysis center. Patient Active Problem List Diagnosis FX CORONOID [...] lesion. Dr Reyna, [facility] INFORMATION removal of benign neoplasm nose CO COLSC FLX W/RMVL OF TUMOR POLYP LESION SNARE TQ four sessile polyps ascending colon and cecum. Nallely CO CREAT AV FISTULA,AUTOGENOUS GRAFT Left 03/23/2023 Dr. Eriberto Augustine TOOTH ROOT REMOVAL complete dental extraction UPPER GI ENDOSCOPY 05/20/2023 Barretts esophagus, duodenal polyp. [place] Family History Problem Relation Name Age of [...] list as this cannot be edited in Meme. Review of Systems: Constitutional ROS: No change in weight, + weakness, +fatigue and No fevers, sweats, or chills Eye ROS: No recent significant [...] No dysphagia Musculoskeletal/Extremities ROS: DJD Skin/Integumentary ROS: skin tears Neurologic ROS: No headaches and No seizures Psychiatric ROS: No depression, +PTSD, No anxiety and No psychosis + mild dementia Sleep: No sleep disorders OBJECTIVE: PHYSICALEXAM: I reviewed the most recent facilities vitals. General: alert, looks fatgued , well nourished and well developed Head: Normocephalic, [...] sounds and no masses or organomegaly Extremities: , no edema, no clubbing, no cyanosis Neuro Exam: alert & oriented x 2 with fluent speech, Skin: skin color, texture, turgor are normal, skin tears bilateral forearms ASSESSMENT: Transient alteration of awareness (Primary) Pt's baseine mentation is not at his baseline Concern with recurrent falls and possible head injury Concern for sepsis, metabolic encephalopathy Recent Influenza A currently under treatment Recurrent falls Over past week sustaining skin tears bilateral forearms Anemia in chronic kidney disease, on chronic dialysis (HCC) 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 behavioral disturbance, psychotic disturbance, mood disturbance, or anxiety (HCC) Ascites due to alcoholic cirrhosis (HCC) PAF (paroxysmal atrial fibrillation) (HCC) Severe mitral regurgitation by prior echocardiogram History of influenza Currently receiving dialysis dosing of Tamiflu PLAN: Because of recurrent falls, change in mental status beyond his usual baseline, and inability to obtain labs, CT scans in a timely manner, pt will be transported to ED for further evaluation and treatment Snf Home Treatment Given: as above Electronically signed by: Brianna Orozco PA-C Over 45 minutes were spent in this visit more than half the time was spent counselling or coordinating care. Cosigned by Cleveland Lucas DO at 08/30/2024 11:16 AM EDT Associated attestation - Cleveland Lucas DO - 08/30/2024 11:16 AM EDT I have reviewed the advanced practitioner's documentation on the date of service referenced in note, and I agree with, and take responsibility for the plan of care. documented in this encounter Plan of Treatment Upcoming Encounters Date Type Department Care Team (Late st Contact Info) Description 01/23/2025 1:40 PM EDT Office Visit Hepatology, [facility] [address] [place] [id number] Latoya Selby DO [address] [place] [address] Health Maintenance Due Date Last Done Comments [...] as of this encounter Visit Diagnoses Diagnosis Transient alteration of awareness- Primary Recurrent falls Personal history of fall Anemia in chronic kidney disease, on chronic dialysis (HCC) 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 behavioral disturbance, psychotic disturbance, mood disturbance, or anxiety (HCC) Ascites due to alcoholic cirrhosis (HCC) PAF (paroxysmal atrial fibrillation) (HCC) Atrial fibrillation Severe mitral regurgitation by prior echocardiogram Mitral valve disorders History of influenza Personal history of other infectious and parasitic disease documented in this encounter Additional Health Concerns Infection Onset Date Last Indicated Resolved Time Influenza (seasonal) 08/23/2024 08/23/2024 documented as of this encounter Care Teams Directory Assistance Operator Relationship Specialty Start Date End Date Maximo Taylor MD [address] [place] [address] [phone] PCP - General Family Medicine 05/04/23 documented as of this encounter
--- OUTSIDE RECORDS SUMMARY | 2024-08-31 04:25 | External Medical Summary | Summary of Care ---
Author Name Unknown Organization [facility] Address [address] [place] [facility] [place] [address] Phone [phone] Care Team Providers Care Nurse Staff Industrial Name Role Phone Maximo Taylor MD Primary Care Provide r Reason for Visit * Reason Onset Date Comments Complicated Acute Visit 08/30/2024 Encounter Details Date Type Department Care Team (Latest Contact Info) Description 08/30/2024 6:30 AM EDT Long-Term Visit [facility] [address], [place] [phone] Brianna Orozco PA-C [address] [place] [address] Transient alteration of awareness*; Recurrent falls; Anemia in chronic kidney disease, on chronic dialysis ([facility]); 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 behavioral disturbance, psychotic disturbance, mood disturbance, or anxiety ([facility]); Ascites due to alcoholic cirrhosis ([facility]); PAF (paroxysmal atrial fibrillation) ([facility]); Severe mitral regurgitation by prior echocardiogram; History [...] Capsule by mouth at bedtime. 01/22/20 Active Atlantic Caps 1 MG Oral Capsule Take 1 [...] This note pertains to care provided at [facility]. Please see facility medical record for original note. This note is not to be edited or addended in [employer]. Editing or addending needs to occur in the facilities medical record. Subjective: Sisi Redmond is a 74 year old male. Patient being seen for altered mental status Chief Complaint Patient presents with Complicated Acute Visit HPI: Pt, who is LTC resident at [facility] with history of ESRD on dialysis (three [...] severe MR, severe TR, moderate pulmonary HTN. [facility] BRAIN ANEURYSM REPR, SIMPLE 2012 MRI compatible brain aneurysm clip [facility] [place] COLONOSCOPY CYSTOSCOPY/BIOPSY 03/29/2023 cystoscopy, fulgaration of bladder lesion. Dr Reyna, [facility] INFORMATION removal of benign neoplasm nose NM COLSC FLX W/RMVL OF TUMOR POLYP LESION SNARE TQ four sessile polyps ascending colon and cecum. Nallely NM CREAT AV FISTULA,AUTOGENOUS GRAFT Left 03/23/2023 Dr. Eriberto Augustine TOOTH ROOT REMOVAL complete dental extraction UPPER GI ENDOSCOPY 05/20/2023 Barretts esophagus, duodenal polyp. [place] Family History Problem Relation Name Age of [...] list as this cannot be edited in [employer]. Review of Systems: Constitutional ROS: No change [...] to ED for further evaluation and treatment [facility] Given: as above Electronically signed [...] 01/23/2025 1:40 PM EDT Office Visit Hepatology, [facility] [address] [place] [address] Latoya Selby DO [address] [place] [address] Health Maintenance Due Date Last Done Comments [...] documented as of this encounter Care Teams Nurse Staff Industrial Relationship Specialty Start Date End Date Maximo Taylor MD [address] [place] [address] [phone] PCP - General Family Medicine 05/04/23 documented as of this encounter
[2024-08-31] MEDS: MIDODRINE HCL 2.5 MG TAB PO SCH (06:03)
--- NOTE | 2024-08-31 06:32 | Electrocardiogram Report ---
Test Reason : Blood Pressure : */* mmHG Vent. Rate : 61 BPM Atrial Rate : * BPM P-R Int : 288 ms QRS Dur : 122 ms QT Int : 506 ms P-R-T Axes : * 15 66 degrees QTcB Int : 509 ms Sinus rhythm with 1st degree A-V block Non-specific intra-ventricular conduction block When compared with ECG of 14-Oct-2023 15:11, Vent. rate has decreased by 45 bpm Confirmed by Cruz Godfrey ([id number]) on 08/31/2024 6:31:44 AM Referred By: Ana Jones Confirmed By: Cruz Godfrey
[2024-08-31 06:39] LABS: Basophils # (auto) 0.06 K/uL (0.00-0.20); Eosinophils # (auto) 0.21 K/uL (0.00-0.50); Eosinophils % (auto) 3.4 %; Hematocrit (blood only) 35.7 % (42.0-52.0); Hemoglobin 11.7 g/dl (14.0-18.0); Immature Granulocytes # (auto) 0.21 K/uL (0.01-0.20); Immature Granulocytes % (auto) 3.4 %; Lymphocytes # (auto) 0.92 K/uL (1.20-3.40); Mean Corpuscular Hemoglobin 30.4 pg (25.0-34.0); Mean Corpuscular Hgb Conc 32.8 g/dL (32.0-36.0); Mean Corpuscular Volume 92.7 fL (80.0-100.0); Mean Platelet Volume 10.2 fL (9.4-12.4); Monocytes # (auto) 0.75 K/uL (0.11-0.59); Monocytes % (auto) 12.3 %; Neutrophils # (auto) 3.97 K/uL (1.40-6.50); Neutrophils % (auto) 64.9 %; Platelet Count 232 K/uL (130-400); RDW Coefficient of Variation 14.6 % (11.5-14.5); RDW Standard Deviation 49.4 fL (36.4-46.3); Red Blood Count 3.85 M/uL (4.70-6.10); White Blood Count 6.12 K/ul (4.8-10.8)
[2024-08-31 06:47] LABS: Calcium 9.8 mg/dl (8.6-10.3); Creatinine Clr Calc Pharmacy 6.5 ml/min; Potassium 4.6 mmol/L (3.5-5.1)
[2024-08-31] MEDS: POLYETHYLENE (MIRALAX) 17 GM PACK PO SCH (09:44)
--- NOTE | 2024-08-31 10:17 | Hospitalist Progress Note ---
Date of Service August 31, 2024 Assessment & Plan (1) RLL pneumonia: (2) Weakness: (3) Pleural effusion: (4) AMS (altered mental status): (5) ESRD on dialysis: (6) COVID-19: (7) CHF (congestive heart failure): (8) PAF (paroxysmal atrial fibrillation): (9) Chronic respiratory failure with hypoxia: (10) COPD (chronic obstructive pulmonary disease): (11) Seizure disorder: Plan Sisi, 74yo M w/ PMH of ESRD with HD on /, chronic hypoxic respiratory failure, COPD, Alzheimer's disease, CHF, Flu A, pneumonia, presented on 08/30 after he was too confused and weak to attend his dialysis session that day. Also, patient is currently on Tamiflu for influenza A infection. CXR showed pneumonia w/ pleural effusion. He is currently no confused, feeling week, and not having any issue with shortness of breaht. #RLL pneumonia superimposed on flu CXR revealed a RLL pneumonia No leukocytosis; afebrile VB.42/51/31/33 Blood cultures drawn in the ED MRSA swab and sputum culture ordered, pending Start IV fluids to help with sputum production Ceftriaxone 2000 mg IV q24h Doxycycline 100 mg p.o. BID Guaifenesin 1200 mg p.o. PRN BID for cough DuoNeb 3 mL Q6R PRN for wheezing Incentive spirometry, flutter valve #Chronic hypoxic respiratory failure Patient reports he is chronically on supplemental oxygen at baseline (2-4 L NC) Titrate supplemental oxygen as needed to maintain SpO2 89 to 92% Continuous pulse oximetry #Influenza A Patient was recently diagnosed with influenza; started on Tamiflu 30 mg p.o. // on 08/25 While patient tested negative on arrival on 08/30, will continue with droplet isolation precautions for now Supportive care Tamiflu 30 mg p.o. x 1 given today #ESRD on HD // Appreciate Nephrology recs - no indication for emergent dialysis, renally dosed meds, regular HD scheduled for today 08/30, another session of HD tomorrow 08/31 Most recent dialysis session was on Monday 08/28; missed Wednesday 08/30 Renal dialysis diet Continue Nephrocaps and Sensipar Midodrine 5 mg p.o. BID on dialysis days Midodrine 7.5 mg p.o. daily on nondialysis days Lokelma 5 g on nondialysis days Sevelamer carbonate 800mg PO TIDM #HFpEF Last echocardiogram on 04/28/2023 revealed LVEF at 55-60% Will hold Lasix temporarily in the setting of poor kidney function Daily weights Strict I&O monitoring Chronic stable conditions: #COPD - Continue home inhalers #PAF - Rate controlled, continue amiodarone #Seizure disorder - Continue Depakote Disposition: Admit to PCU telemetry Conditional Code - NO CPR, NO INTUBATION VTE PPx: SCDs Admission and Anticipated Discharge Date Admission Date: August 30, 2024 Supervising Physician Co-Signing Physician Notes I personally examined the patient and verified all reyes points of history and exam, discussed case, and agree with decision making with Dr Cole and Alison Celeste MS2 feeling ok only real complaint is back pain from bed and positioning with dialysis. no significant SOB. updated family vitals noted nad heent nc at mmm breathing unlabored no accessory muscles good effort skin no rashes no pallor or icterus CAP/influenza - doing better. appears to have had mild metabolic encephalopathy superimposed on dementia but improved. hard to R/O MRSA as causative bacteria for pneumonia given MRSA nares (+) and therefore treating as such w doxy (in addition to rocephin for more common CAP pathogens). follow into tomorrow but hopefully return to SNF soon persistently abnormal CXR - d/w family hard to r/o malignancy as well - they note that with his age/dementia/frailty they would not want to pursue treatment even if something was there, and therefore decline any further w/u or imaging - which seems quite appropriate in his case. DVT proph - SCDs Subjective Patient reports feeling better today with less confusion and weakness. He does not remember much from yesterday and just mentions feeling really weak and confused. He endorses being able to breathe well with current supplemental oxygen (4L) and does mention sometimes not wearing his oxygen at [facility]. Has produced no urine and had no bowel movements which abnormal for him. He is coughing, but mentions not producing any sputum. He has been really hungry. He endorses some swelling in his right ankle, but no redness. He endorses no fe vers, chills, night sweats, abdominal pain, dizziness, chest pain, n/v, or hemoptysis. Review of Systems Review of Systems: as per HPI Physical Exam Constitutional: No acute distress, frail appearing, conversational and attentive Respiratory: Auscultation: + diminished lung sounds (worse on right side ) no acute respiratory distress, no crackles, rales, or rhonchi Cardiovascular: Rate/Rhythm: regular rate and regular rhythm Heart Sounds: + murmur (2/6 systolic ejection murmur best heard at left sternal border) Extremities: normal capillary refill and + edema (mild, worse on right leg than left ) Musculoskeletal: tremor in right hand Skin: no rashes, warm and dry Neurologic: A&Ox3, fluent speech, no focal deficits Psychiatric: Appropriate mood and affect Results & Data Results & Data Vital Signs (Past 12 Hours) Vital Signs Temp Pulse Pulse Pulse Resp BP Pulse Ox 08/31/24 08:54 36.2 C L 65 08/31/24 07:14 36.4 C L 64 20 126/56 L 95 08/31/24 07:03 62 16 93 08/31/24 03:42 36.9 C 69 18 111/77 96 08/31/24 01:13 70 18 96 08/30/24 23:21 36.8 C 70 18 153/73 H 96 08/30/24 21:44 67 O2 Del Method O2 Flow Rate 08/31/24 08:54 08/31/24 07:14 Nasal Cannula 4 08/31/24 07:03 Nasal Cannula 4 08/31/24 03:42 Nasal Cannula 4 08/31/24 01:13 Nasal Cannula 4 08/30/24 23:21 Nasal Cannula 08/30/24 21:44 Laboratory Results 08/31/24 08/30/24 08/30/24 Range/Units 05:33 15:50 15:07 WBC 6.12 (4.8-10.8) K/ul RBC 3.85 L (4.70-6.10) M/uL Hgb 11.7 L (14.0-18.0) g/dl Hct 35.7 L (42.0-52.0) % MCV 92.7 (80.0-100.0) fL MCH 30.4 (25.0-34.0) pg MCHC 32.8 (32.0-36.0) g/dL RDW Std Deviation 49.4 H (36.4-46.3) fL RDW Coeff of Giovana 14.6 H (11.5-14.5) % Plt Count 232 (130-400) K/uL MPV 10.2 (9.4-12.4) fL Immature Gran % (Auto) 3.4 % Neut % (Auto) 64.9 % Lymph % (Auto) 15.0 % [place] % (Auto) 12.3 % Eos % (Auto) 3.4 % Baso % (Auto) 1.0 % Neut # (Auto) 3.97 (1.40-6.50) K/uL Lymph # (Auto) 0.92 L (1.20-3.40) K/uL Windsor # (Auto) 0.75 H (0.11-0.59) K/uL Eos # (Auto) 0.21 (0.00-0.50) K/uL Baso # (Auto) 0.06 (0.00-0.20) K/uL Immature Gran # (Auto) 0.21 H (0.01-0.20) K/uL PT (9.0-12.0) Seconds INR (0.9-1.1) VBG pH (7.36-7.41) VBG pCO2 (38-50) mmHg VBG pO2 mmHg VBG HCO3 mmol/L VBG O2 Saturation % VBG Base Excess mEq/L Sodium 137 (136-145) mmol/L Potassium 4.6 (3.5-5.1) mmol/L Chloride 97 L (98-107) mmol/L Carbon Dioxide 30 (21-32) mmol/L Anion Gap 10 (3-11) BUN 54 H (6-23) mg/dl Creatinine 10.73 H* D (0.6-1.4) mg/dl Est Cr Clr Drug Dosing 6.5 ml/min eGFR 4.58 BUN/Creatinine Ratio 5.0 L (10-20) Glucose 74 (70-99(Fasting)) mg/dl Lactate (0.4-2.0) mmol/L Calcium 9.8 (8.6-10.3) mg/dl Magnesium (1.7-2.4) mg/dl Total Bilirubin (0.2-1.0) mg/dl AST (13-39) U/L ALT (7-52) U/L Alkaline Phosphatase (34-104) U/L Total Creatine Kinase (30-223) U/L Troponin I High Sens 22.5 H (0-20) pg/ml Total Protein (6.0-8.3) gm/dl Albumin (3.4-5.0) gm/dl Globulin (2.5-4.0) gm/dl Albumin/Globulin Ratio (0.9-2) Procalcitonin (0-0.5) ng/ml TSH (0.300-4.500) uIu/ml Nasal Screen MRSA (PCR) Positive A (Negative) Adenovirus (PCR) (NotDetected) B. pertussis DNA (PCR) (NotDetected) B.parapertussis DNA PCR (NotDetected) C. pneumoniae DNA (PCR) (NotDetected) Coronavirus OC43 (PCR) (NotDetected) Coronavirus HKU1 (PCR) (NotDetected) Coronavirus 229E (PCR) (NotDetected) SARS-CoV-2 (PCR) (NotDetected) Coronavirus NL63 (PCR) (NotDetected) Human Metapneumovir PCR (NotDetected) Influenza Type A (PCR) (NotDetected) Influenza Type B (PCR) (NotDetected) M. pneumoniae (PCR) (NotDetected) Parainfluenza 1 (PCR) (NotDetected) Parainfluenza 2 (PCR) (NotDetected) Parainfluenza 3 (PCR) (NotDetected) Parainfluenza 4 (PCR) (NotDetected) RSV (PCR) (NotDetected) Entero/Rhino (PCR) (NotDetected) 08/30/24 08/30/24 08/30/24 Range/Units 12:28 12:20 11:52 WBC 6.91 (4.8-10.8) K/ul RBC 4.11 L (4.70-6.10) M/uL Hgb 12.6 L (14.0-18.0) g/dl Hct 38.1 L (42.0-52.0) % MCV 92.7 (80.0-100.0) fL MCH 30.7 (25.0-34.0) pg MCHC 33.1 (32.0-36.0) g/dL RDW Std Deviation 49.2 H (36.4-46.3) fL RDW Coeff of Giovana 14.6 H (11.5-14.5) % Plt Count 234 (130-400) K/uL MPV 10.5 (9.4-12.4) fL Immature Gran % (Auto) 3.0 % Neut % (Auto) 69.5 % Lymph % (Auto) 11.3 % [place] % (Auto) 12.2 % Eos % (Auto) 3.0 % Baso % (Auto) 1.0 % Neut # (Auto) 4.80 (1.40-6.50) K/uL Lymph # (Auto) 0.78 L (1.20-3.40) K/uL [place] # (Auto) 0.84 H (0.11-0.59) K/uL Eos # (Auto) 0.21 (0.00-0.50) K/uL Baso # (Auto) 0.07 (0.00-0.20) K/uL Immature Gran # (Auto) 0.21 H (0.01-0.20) K/uL PT 10.7 (9.0-12.0) Seconds INR 1.0 (0.9-1.1) VBG pH 7.42 H (7.36-7.41) VBG pCO2 51 H (38-50) mmHg VBG pO2 31 mmHg VBG HCO3 33 mmol/L VBG O2 Saturation < 60.0 % VBG Base Excess 7.2 mEq/L Sodium 137 (136-145) mmol/L Potassium 4.4 (3.5-5.1) mmol/L Chloride 96 L (98-107) mmol/L Carbon Dioxide 33 H (21-32) mmol/L Anion Gap 8 (3-11) BUN 47 H (6-23) mg/dl Creatinine 9.06 H* (0.6-1.4) mg/dl Est Cr Clr Drug Dosing 7.6 ml/min eGFR 5.61 BUN/Creatinine Ratio 5.2 L (10-20) Glucose 105 H (70-99(Fasting)) mg/dl Lactate 0.8 (0.4-2.0) mmol/L Calcium 10.2 (8.6-10.3) mg/dl Magnesium 2.4 (1.7-2.4) mg/dl Total Bilirubin 0.7 (0.2-1.0) mg/dl AST 15 (13-39) U/L ALT 10 (7-52) U/L Alkaline Phosphatase 53 (34-104) U/L Total Creatine Kinase 13 L (30-223) U/L Troponin I High Sens 21.9 H (0-20) pg/ml Total Protein 6.4 (6.0-8.3) gm/dl Albumin 3.5 (3.4-5.0) gm/dl Globulin 2.9 (2.5-4.0) gm/dl Albumin/Globulin Ratio 1.2 (0.9-2) Procalcitonin 0.86 H (0-0.5) ng/ml TSH 1.482 (0.300-4.500) uIu/ml Nasal Screen MRSA (PCR) (Negative) Adenovirus (PCR) Not Detected (NotDetected) B. pertussis DNA (PCR) Not Detected (NotDetected) B.parapertussis DNA PCR Not Detected (NotDetected) C. pneumoniae DNA (PCR) Not Detected (NotDetected) Coronavirus OC43 (PCR) Not Detected (NotDetected) Coronavirus HKU1 (PCR) Not Detected (NotDetected) Coronavirus 229E (PCR) Not Detected (NotDetected) SARS-CoV-2 (PCR) Not Detected (NotDetected) Coronavirus NL63 (PCR) Not Detected (NotDetected) Human Metapneumovir PCR Not Detected (NotDetected) Influenza Type A (PCR) Not Detected (NotDetected) Influenza Type B (PCR) Not Detected (NotDetected) M. pneumoniae (PCR) Not Detected (NotDetected) Parainfluenza 1 (PCR) Not Detected (NotDetected) Parainfluenza 2 (PCR) Not Detected (NotDetected) Parainfluenza 3 (PCR) Not Detected (NotDetected) Parainfluenza 4 (PCR) Not Detected (NotDetected) RSV (PCR) Not Detected (NotDetected) Entero/Rhino (PCR) Not Detected (NotDetected) Diagnostic Findings Chest X-Ray 08/30/24 11:59 XR chest 1V portable CLINICAL HISTORY: weakness COMPARISON STUDY: 10/15/2023 FINDINGS: The patient has a new right basilar airspace opacity and a small right pleural effusion. Radiographic findings are otherwise stable. The heart remains enlarged. There is a left subclavian artery stent in place. IMPRESSION: Right lower lobe pneumonia with a pleural effusion. Consider infection or aspiration. ACT 112: Negative or not required by law. Electronically signed by: Savannah Jaffe M.D. 08/30/2024 12:33 PM Resident Activity Tracking Resident Involvement: Resident Care Provided Care Provided: Adult [facility] Medicine Resident Supervision Co-Signing Physician Notes Resident Attestation I was personally present during medical student and patient encounter and indep endently interviewed and examined the patient and verified the reyes history and physical, reviewed labs and image studies, discussed the case with Elliott CARBALLO), and agree with the above mentioned findings and care plan. (10) COPD (chronic obstructive pulmonary disease) COPD type: unspecified COPD Qualified Code(s): J44.9 - Chronic obstructive pulmonary disease, unspecified
[2024-08-31] MEDS: ACETAMINOPHEN 325 MG TAB PO PRN (10:21)
--- NOTE | 2024-08-31 10:22 | Nephrology Progress Note ---
Date of Service August 31, 2024 Assessment & Plan (1) ESRD (end stage renal disease) on dialysis: (2) AMS (altered mental status): (3) Secondary hyperparathyroidism: (4) Ambulatory dysfunction: (5) Anemia: (6) PNA (pneumonia): (7) Pleural effusion: Plan 74 year-old gentlemen with ESRD secondary to polycystic kidney disease, on HD MWF at [facility]. Admitted with change in mental status, pneumonia and bilateral pleural effusion. Labs are within acceptable limit. Chest x-ray showing pneumonia, pulmonary congestion and pleural effusion. Started empirically on ceftriaxone and doxycycline. Volume status seems reasonable, blood pressure well-controlled. Electrolyte acceptable. hemoglobin 11.6. --Having dialysis as he missed dialysis yesterday, tolerating well, tolerating UF. Blood pressure stable. Plan for dialysis again tomorrow as his regular [facility]. --left arm nephrology precaution, continue on renal diet, dose medications for eGFR less than 10 --continue phosphate binder with meal, nephro caps and Sensipar Admission and Anticipated Discharge Date Admission Date: August 30, 2024 Abraham Laird was seen and evaluated during dialysis. Tolerating dialysis, tolerating UF. Blood pressure stable. Denies shortness of breath or chest pain. Has been complaining of back pain which is chronic but worsened with lying in bed for dialysis. Review of Systems Review of Systems: System was done and pertinent positives and negatives are mentioned above. Physical Exam Constitutional: WD/WN, vitals as above + ill appearing; no acute distress Eyes: + anicteric sclerae Respiratory: no respiratory distress and no cough Auscultation: + diminished lung sounds and + crackles; no wheezes Cardiovascular: Rate/Rhythm: regular rate and regular rhythm Heart Sounds: normal S1 and normal S2 Extremities: no edema Neurologic: no focal motor deficits Psychiatric: Orientation: alert and oriented x 3 Affect: euthymic affect Results & Data Vital Signs (Past 12 Hours) Vital Signs Temp Pulse Pulse Pulse Resp BP BP 08/31/24 09:03 61 129/62 08/31/24 08:54 36.2 C L 65 08/31/24 07:14 36.4 C L 64 20 126/56 L 08/31/24 07:03 62 16 08/31/24 07:00 63 08/31/24 06:00 54 L 08/31/24 03:42 36.9 C 69 18 111/77 08/31/24 01:13 70 18 08/30/24 23:21 36.8 C 70 18 153/73 H Pulse Ox O2 Del Method O2 Flow Rate 08/31/24 09:03 08/31/24 08:54 08/31/24 07:14 95 Nasal Cannula 4 08/31/24 07:03 93 Nasal Cannula 4 08/31/24 07:00 08/31/24 06:00 08/31/24 03:42 96 Nasal Cannula 4 08/31/24 01:13 96 Nasal Cannula 4 08/30/24 23:21 96 Nasal Cannula PG Care Time/CCT Total # of Minutes Spent Total Time Spent with Patient: Total time spent is greater than 50% in coordination of care (as documented) at patient's floor/unit and/or counseling patient: Coding Level of Care Code 14280 SUB INP/OBS CARE 2MIN Diagnoses ESRD (end stage renal disease) on dialysis N18.6; Z99.2 AMS (altered mental status) R41.82 Secondary hyperparathyroidism N25.81 Ambulatory dysfunction R26.2 Anemia, unspecified type D64.9 Anemia type: unspecified type PNA (pneumonia) J18.9 Laterality: bilateral Lung location: unspecified part of lung Pneumonia type: due to unspecified organism Pleural effusion J90 (5) Anemia Anemia type: unspecified type Qualified Code(s): D64.9 - Anemia, unspecified (6) PNA (pneumonia) Laterality: bilateral Lung location: unspecified part of lung Pneumonia type: due to unspecified organism Qualified Code(s): J18.9 - Pneumonia, unspecified organism
[2024-08-31] MEDS ORDERED: ALBUT/IPRATROP 3MG/0.5MG NEB 3 ML VIAL INH PRN (11:28)
[2024-08-31] MEDS: LINEZOLID 600 MG/300 ML BAG IV SCH (12:14)
--- NOTE | 2024-08-31 12:53 | Billing Data ---
Date of Service August 31, 2024 Coding Level of Care Code 45793 SUB INP/OBS CARE MIN
[2024-08-31] MEDS: CINACALCET HCL 30 MG TAB PO SCH (13:30)
[2024-08-31] MEDS: NEPHROCAPS PO SCH (13:30)
[2024-08-31] MEDS: guaiFENesin 600 MG TABCR PO PRN (13:31)
[2024-08-31] MEDS: THIAMINE HCL 100 MG TAB PO SCH (13:31)
[2024-08-31] MEDS: UMECLIDINIUM/VILANTEROL 62.5/25MCG 7 PUFFS/INHALER INH SCH (13:32)
[2024-08-31] MEDS: DIVALPROEX DELAY RELEASE 500 MG TAB PO SCH (13:32)
[2024-08-31] MEDS: cefTRIAXone SODIUM 2,000 MG/50 ML BAG IV SCH (13:45)
[2024-08-31] MEDS: bisacodyL 5 MG TABEC PO PRN (15:06)
[2024-08-31] MEDS: OSELTAMIVIR PHOSPHATE SUSP 30 MG/5 ML UDP PO ONE (15:21)
[2024-08-31] MEDS: SEVELAMER CARBONATE 800 MG TAB PO SCH (17:01)
[2024-08-31] MEDS: SODIUM CHLOR 7% 4 ML NEB NEB SCH (20:11)
[2024-09-01] MEDS: traMADol HCL 50 MG TABLET PO PRN (04:52)
[2024-09-01] MEDS: MIDODRINE HCL 2.5 MG TAB PO SCH (06:16)
[2024-09-01 06:51] LABS: Basophils # (auto) 0.04 K/uL (0.00-0.20); Basophils % (auto) 0.7 %; Eosinophils # (auto) 0.19 K/uL (0.00-0.50); Eosinophils % (auto) 3.2 %; Hematocrit (blood only) 37.8 % (42.0-52.0); Hemoglobin 12.4 g/dl (14.0-18.0); Immature Granulocytes # (auto) 0.18 K/uL (0.01-0.20); Lymphocytes # (auto) 0.83 K/uL (1.20-3.40); Lymphocytes % (auto) 13.9 %; Mean Corpuscular Hemoglobin 30.4 pg (25.0-34.0); Mean Corpuscular Hgb Conc 32.8 g/dL (32.0-36.0); Mean Corpuscular Volume 92.6 fL (80.0-100.0); Monocytes # (auto) 0.87 K/uL (0.11-0.59); Monocytes % (auto) 14.6 %; Neutrophils # (auto) 3.85 K/uL (1.40-6.50); Neutrophils % (auto) 64.6 %; Platelet Count 234 K/uL (130-400); RDW Coefficient of Variation 14.6 % (11.5-14.5); RDW Standard Deviation 49.3 fL (36.4-46.3); Red Blood Count 4.08 M/uL (4.70-6.10); White Blood Count 5.96 K/ul (4.8-10.8)
[2024-09-01 07:26] LABS: BUN Creatinine Ratio 4.1 (10-20); Calcium 9.7 mg/dl (8.6-10.3); Creatinine Clr Calc Pharmacy 11.6 ml/min; Phosphorus 3.8 mg/dl (2.5-4.9); Potassium 3.5 mmol/L (3.5-5.1)
--- NOTE | 2024-09-01 09:40 | Nephrology Progress Note ---
Date of Service September 01, 2024 Assessment & Plan (1) ESRD (end stage renal disease) on dialysis: (2) AMS (altered mental status): (3) Secondary hyperparathyroidism: (4) Ambulatory dysfunction: (5) Anemia: (6) PNA (pneumonia): (7) Pleural effusion: Plan 74 year-old gentlemen with ESRD secondary to polycystic kidney disease, on HD MWF at [facility]. Admitted with change in mental status, pneumonia and bilateral pleural effusion. Labs are within acceptable limit. Chest x-ray showing pneumonia, pulmonary congestion and pleural effusion. On ceftriaxone and doxycycline. Chronic RLL infiltrate, family decided not to consider any more imaging to exclude any other underlying pathology. Volume status seems reasonable, blood pressure well-controlled. Electrolyte acceptable. hemoglobin >12 --tolerating HD as regular MWF schedule, tolerating UF. Blood pressure stable. Aim for UF 2 L to raech EDW --left arm nephrology precaution, continue on renal diet, dose medications for eGFR less than 10 --continue phosphate binder with meal, nephro caps and Sensipar Admission and Anticipated Discharge Date Admission Date: August 30, 2024 Abraham Laird was seen and evaluated this morning. Blood pressure stable. Denies shortness of breath or chest pain. Still having back pain which has been chronic. Review of Systems Review of Systems: System was done and pertinent positives and negatives are mentioned above. Physical Exam Constitutional: WD/WN, vitals as above + ill appearing; no acute distress Eyes: + anicteric sclerae Respiratory: no respiratory distress and no cough Auscultation: + diminished lung sounds Cardiovascular: RRR, no murmur, no edema Skin: + turgor decreased, + skin atrophy, + dr y skin and + ecchymosis Neurologic: no focal motor deficits Psychiatric: Orientation: alert and oriented x 3 Affect: euthymic affect Results & Data Vital Signs (Past 12 Hours) Vital Signs Temp Pulse Pulse Resp BP Pulse Ox O2 Del Method 09/01/24 07:47 36.5 C 78 20 148/77 H 91 Nasal Cannula 09/01/24 07:27 77 17 96 Nasal Cannula 09/01/24 07:08 79 09/01/24 03:06 36.6 C 65 20 126/60 94 Nasal Cannula 08/31/24 22:45 36.9 C 65 18 119/54 L 93 Nasal Cannula O2 Flow Rate 09/01/24 07:47 09/01/24 07:27 4 09/01/24 07:08 09/01/24 03:06 3 08/31/24 22:45 3 PG Care Time/CCT Total # of Minutes Spent Total Time Spent with Patient: Total time spent is greater than 50% in coordination of care (as documented) at patient's floor/unit and/or counseling patient: Coding Level of Care Code 25190 SUB INP/OBS CARE 2/35MIN Diagnoses ESRD (end stage renal disease) on dialysis N18.6; Z99.2 AMS (altered mental status) R41.82 Secondary hyperparathyroidism N25.81 Ambulatory dysfunction R26.2 Anemia, unspecified type D64.9 Anemia type: unspecified type PNA (pneumonia) J18.9 Laterality: bilateral Lung location: unspecified part of lung Pneumonia type: due to unspecified organism Pleural effusion J90 (5) Anemia Anemia type: unspecified type Qualified Code(s): D64.9 - Anemia, unspecified (6) PNA (pneumonia) Laterality: bilateral Lung location: unspecified part of lung Pneumonia type: due to unspecified organism Qualified Code(s): J18.9 - Pneumonia, unspecified organism
--- NOTE | 2024-09-01 10:25 | Hospitalist Progress Note ---
Date of Service September 01, 2024 Assessment & Plan (1) RLL pneumonia: (2) Weakness: (3) Pleural effusion: (4) AMS (altered mental status): (5) ESRD on dialysis: (6) COVID-19: (7) CHF (congestive heart failure): (8) PAF (paroxysmal atrial fibrillation): (9) Chronic respiratory failure with hypoxia: (10) COPD (chronic obstructive pulmonary disease): (11) Seizure disorder: Plan Sisi, 74yo M w/ PMH of ESRD with HD on , chronic hypoxic respiratory failure, COPD, Alzheimer's disease, CHF, Flu A, pneumonia, presented on 08/30 after he was too confused and weak to attend his dialysis session that day. Patient is currently on Tamiflu for influenza A. CXR showed pneumonia w/ pleural effusion. He is currently not confused, feeling weak, having any issues with breathing. He is scheduled for dialysis today. #RLL pneumonia superimposed on flu CXR revealed a RLL pneumonia No leukocytosis; afebrile Blood cultures drawn in the ED MRSA swab and sputum culture ordered, 24hr culture showed no growth Continue IV fluids to help with sputum production Continue current regiment: Ceftriaxone 2000 mg IV q24h Doxycycline 100 mg p.o. BID Guaifenesin 1200 mg p.o. PRN BID for cough DuoNeb 3 mL Q6R PRN for wheezing Incentive spirometry, flutter valve --Able to go back to [facility] 09/02-> plan to transition to cefdinir+ doxycycline for a total of 7 days #Abnormal CXR/Chronic Pleural Effusion - hard to r/u malignancy; per discussion with family would not want further testing as would not pursue further treatment #Chronic hypoxic respiratory failure Patient reports he is chronically on supplemental oxygen at baseline (2-4 L NC) Back to baseline oxygen requirement #Influenza A Patient was recently diagnosed with influenza; started on Tamiflu 30 mg p.o. // on 08/25 While patient tested negative on arrival on 08/30, will continue with droplet isolation precautions for now Supportive care TamiFlu discontinued due to course being finished #ESRD on HD / Appreciate Nephrology recs - no indication for emergent dialysis, renally dosed meds, regular HD scheduled done yesterday 08/30, another session of HD today 08/31. Tolerating treatment well. Renal dialysis diet Continue Nephrocaps and Sensipar Midodrine 5 mg p.o. BID on dialysis days Midodrine 7.5 mg p.o. daily on nondialysis days Lokelma 5 g on nondialysis days Sevelamer carbonate 800mg PO TIDM #HFpEF Last echocardiogram on 04/28/2023 revealed LVEF at 55-60% Will hold Lasix temporarily in the setting of poor kidney function-> would plan to resume on d/c pending fluid status Chronic stable conditions: #COPD - Continue home inhalers #PAF - Rate controlled, continue amiodarone #Seizure disorder - Continue Depakote Disposition: Admit to PCU telemetry Conditional Code - NO CPR, NO INTUBATION VTE PPx: SCDs Admission and Anticipated Discharge Date Admission Date: August 30, 2024 Supervising Physician Co-Signing Physician Notes I personally examined the patient and verified all reyes points of history and exam, discussed case, and agree with decision making with Dr Stevenson and Alison eCleste MS2 no complaints. feeling well. can't return to SNF until tomorrow vitals noted nad heent nc at mmm breathing unlabored no accessory muscles good effort skin no rashes no pallor or icterus CAP/influenza - doing better. appears to have had mild metabolic encephalopathy superimposed on dementia but improved. hard to R/O MRSA as causative bacteria for pneumonia given MRSA nares (+) and therefore treating as such w doxy (in addition to rocephin for more common CAP pathogens). stable for return to snf once they can take him persistently abnormal CXR - d/w family hard to r/o malignancy as well - they note that with his age/dementia/frailty they would not want to pursue treatment even if something was there, and therefore decline any further w/u or imaging - which seems quite appropriate in his case. DVT proph - SCDs family updated Subjective Patient reports feeling good today and ready for next dialysis today. He does mention back pain that he associates with being on his back from dialysis. He does not endorse any weakness and no confusion. He mentions he is coughing more with clear sputum.He endorses his swelling on the right ankle seems like it has decreased. He mentions being able to breath fine on 3L of supplemental O2. He endorses no fevers, chills, night sweats, abdominal pain, dizziness, chest pain, n/v, or hemoptysis. Review of Systems Review of Systems: as per HPI Physical Exam Respiratory: Auscultation: + diminished lung sounds (worse on right side, sound less diminished than yesterday) Cardiovascular: Rate/Rhythm: regular rate and regular rhythm Heart Sounds: + murmur (2/6 systolic ejection murmur best heard at left sternal border) Extremities: normal capillary refill and + edema (mild, worse on right leg than left ) Skin: no rashes, warm and dry Results & Data Results & Data Vital Signs (Past 12 Hours) Vital Signs Temp Pulse Pulse Resp BP Pulse Ox O2 Del Method 09/01/24 07:47 36.5 C 78 20 148/77 H 91 Nasal Cannula 09/01/24 07:27 77 17 96 Nasal Cannula 09/01/24 07:08 79 09/01/24 03:06 36.6 C 65 20 126/60 94 Nasal Cannula 08/31/24 22:45 36.9 C 65 18 119/54 L 93 Nasal Cannula O2 Flow Rate 09/01/24 07:47 09/01/24 07:27 4 09/01/24 07:08 09/01/24 03:06 3 08/31/24 22:45 3 (10) COPD (chronic obstructive pulmonary disease) COPD type: unspecified COPD Qualified Code(s): J44.9 - Chronic obstructive pulmonary disease, unspecified
[2024-09-01] MEDS: LORATADINE 10 MG TAB PO SCH (12:36)
--- NOTE | 2024-09-01 17:16 | Billing Data ---
Date of Service September 01, 2024 Coding Level of Care Code 69900 SUB INP/OBS CARE
--- NOTE | 2024-09-02 07:21 | Discharge Summary ---
Date of Service September 02, 2024 Admission HPI Per Admitting Provider Sisi is a 74-year-old male with PMH of ESRD on dialysis M/W/F, chronic hypoxic respiratory failure, COPD, upper GI bleed, Alzheimer's disease, CHF, PAF, and multiple pneumonia. He presented via EMS on 08/30 for weakness x 2 days. Patient recently tested positive for influenza and is currently on Tamiflu (Rx started on 08/25; dialysis dosing). Patient was reportedly confused this morning, and too weak to make it to dialysis today. He denies any SOB at rest or with exertion, but does endorse productive cough (yellow sputum production) x 2 weeks. He reports that he has been around many sick people at [facility] recently. He ambulates with a walker at baseline. Patient reports he took his regular morning medicine today; he is unsure of any recent medications were changed as they are managed by [facility]. Patient is a former tobacco cigarette smoker of 50 years, but quit in 2019. Patient sleeps in a recliner at baseline. Patient denies any recent aspiration events, or difficulty swallowing. Patient is mildly hypotensive at 111/56 at time of admission; SpO2 97% on 4L NC. ED course: Ceftriaxone 2000 mg IV Doxycycline 100 mg p.o. ROS: Patient endorses generalized fatigue, confusion, productive cough (yellow sputum production) x 2 weeks, and dark stool (patient reports this is chronic/unchanged; not currently on blood thinners, but may be on iron supplements) Patient denies fever, chills, night sweats, dizziness, lightheadedness, headache, chest pain, chest palpitations, SOB at rest, dyspnea on exertion, orthopnea, pleuritic CP, hemoptysis, abdominal pain, N/V/D, changes in urinary bowel habits, or redness/swelling in the legs. Per review of packet sent over from [facility], patient was eating breakfast this morning, and appeared confused according to staff. He was unable to follow commands to get dressed on his own, and he missed his dialysis session today. He denied any pain at that time. Patient was diagnosed with influenza A last week and is on dialysis dosing of Tamiflu; staff thought this could possibly be contributing to his weakness. Admission Exam Per Admitting Provider General: no acute distress; family at bedside; non-toxic appearing; frail appearing; cooperative; SpO2 97% on 4L NC HEENT: normocephalic, atraumatic; no scleral icterus; PERRLA; vision and hearing grossly intact Neck: supple; no lymphadenopathy; trachea midline Skin: warm, dry without signs of tenting; no cyanosis; no rashes, bruising, lesions, or erythema noted CV: chest wall NTP; RRR; S1/S2 normal; 2/6 systolic ejection murmur auscultated at the second ICS MCL; pulses intact and symmetric at radial, DP, and PT Lungs: no acute respiratory distress; symmetrical chest wall expansion; mild bibasilar crackles in the lower lung munson bilaterally ABD: Soft, NTP; BS present; no rebound/guarding; no distention MSK: no tics or fasciculations; no edema noted in the LEs b/l, nonerythematous Neuro: A&Ox3; normal mood and affect; fluent speech; no focal deficits; patient reports sensation is intact and symmetric in the lower extremities bilaterally Principal Diagnosis flu A Discharge Exam Gen: non-toxic appearing frail patient in NAD HEENT: AT NC MMM Resp: relatively clear, scattered crackles, no increased work of breathing CV: RRR, 3/6 systolic ejection murmur, clinically well perfused Abd: non-distended MSK: no obvious deformities Skin: no rashes or bruising Neuro: alert and oriented Psych: appropriate mood and affect Discharge Data Allergies Allergy/AdvReac Type Severity Reaction Status Date / Time lisinopril AdvReac Intermediate COUGH Verified 04/13/24 10:50 Consultations 08/30/24 13:25 ED Decision to Admit Stat 08/30/24 14:01 Consult Nephrology Routine Ordered Studies Chest X-Ray 08/30/24 11:59 FINDINGS: The patient has a new right basilar airspace opacity and a small right pleural effusion. Radiographic findings are otherwise stable. The heart remains enlarged. There is a left subclavian artery stent in place. IMPRESSION: Right lower lobe pneumonia with a pleural effusion. Consider infection or aspiration. Hospital Course (1) RLL pneumonia: (2) Weakness: (3) Pleural effusion: (4) AMS (altered mental status): (5) ESRD on dialysis: (6) COVID-19: (7) CHF (congestive heart failure): (8) PAF (paroxysmal atrial fibrillation): (9) Chronic respiratory failure with hypoxia: (10) COPD (chronic obstructive pulmonary disease): (11) Seizure disorder: Plan 74 y/o w/PMHx of ESRD HD MWF, chronic hypoxic respiratory failure baseline 2-4L NC, COPD, Alzheimer's disease, and CHF presented with confusion and weakness. He was diagnosed with flu A and stated on Tamiflu outpatient. Admitted for management of pneumonia superimposed on flu A, now back to baseline and stable for discharge on PO abx #RLL pneumonia superimposed on flu CXR revealed RLL pneumonia. BCx NGTD x 48H. Continue pulmonary toilet - mucinex, nebs, IS, flutter. Plan to treat with 7 days total of abx - doxy 100 mg BID and renally dosed cefdinir 300 mg Q24H take in the afternoon/after dialysis. Return to [facility] today. #Abnormal CXR/Chronic Pleural Effusion Hard to r/u malignancy; per discussion with family would not want further testing as would not pursue further treatment #Chronic hypoxic respiratory failure Patient reports he is chronically on supplemental oxygen at baseline (2-4 L NC) #Influenza A Patient was recently diagnosed with influenza and completed course of renally dosed Tamiflu 30 mg. #ESRD on HD M/W/F Appreciate Nephrology recs - no indication for emergent dialysis, renally dosed meds. Continue with regularly scheduled HD. Continue Nephrocaps and Sensipar Midodrine 5 mg p.o. BID on dialysis days Midodrine 7.5 mg p.o. daily on nondialysis days Lokelma 5 g on nondialysis days Sevelamer carbonate 800mg PO TIDM #HFpEF Echocardiogram 04/28/2023 revealed LVEF at 55-60%. Held Lasix in setting of poor kidney function. Resume on d/c Chronic stable conditions: #COPD - Continue home inhalers #PAF - Rate controlled, continue amiodarone #Seizure disorder - Continue Depakote Total Time Total Time Spent Total Time Spent (In Minutes): see attending attestation Discharge Plan Discharge Items Patient Disposition: Transfer Snf Fac Reason For Visit: RLL PNA Discharge Diagnosis: PNA Activity: Per Instructions section Non-emergency contact: Primary Care Provider Call non-emergency contact if: you have any medication questions Follow-up/Referrals: Maximo Taylor MD [Primary Care Provider] - Diet: Dialysis Renal Addtl Attending Provider Instructions: (1) RLL pneumonia: (2) Weakness: (3) Pleural effusion: (4) AMS (altered mental status): (5) ESRD on dialysis: (6) COVID-19: (7) CHF (congestive heart failure): (8) PAF (paroxysmal atrial fibrillation): (9) Chronic respiratory failure with hypoxia: (10) COPD (chronic obstructive pulmonary disease): (11) Seizure disorder: Plan 74 y/o w/PMHx of ESRD HD MWF, chronic hypoxic respiratory failure baseline 2-4L NC, COPD, Alzheimer's disease, and CHF presented with confusion and weakness. He was diagnosed with flu A and stated on Tamiflu outpatient. Admitted for management of pneumonia superimposed on flu A, now back to baseline and stable for discharge on PO abx #RLL pneumonia superimposed on flu CXR revealed RLL pneumonia. BCx NGTD x 48H. Continue pulmonary toilet - mucinex, nebs, IS, flutter. Plan to treat with 7 days total of abx - doxy 100 mg BID and renally dosed cefdinir 300 mg Q24H take in the afternoon/after dialysis. Return to [facility] today. #Abnormal CXR/Chronic Pleural Effusion Hard to r/u malignancy; per discussion with family would not want further testing as would not pursue further treatment #Chronic hypoxic respiratory failure Patient reports he is chronically on supplemental oxygen at baseline (2-4 L NC) #Influenza A Patient was recently diagnosed with influenza and completed course of renally dosed Tamiflu 30 mg. #ESRD on HD M/W/F Appreciate Nephrology recs - no indication for emergent dialysis, renally dosed meds. Continue with regularly scheduled HD. Continue Nephrocaps and Sensipar Midodrine 5 mg p.o. BID on dialysis days Midodrine 7.5 mg p.o. daily on nondialysis days Lokelma 5 g on nondialysis days Sevelamer carbonate 800mg PO TIDM #HFpEF Echocardiogram 04/28/2023 revealed LVEF at 55-60%. Held Lasix in setting of poor kidney function. Resume on d/c Chronic stable conditions: #COPD - Continue home inhalers #PAF - Rate controlled, continue amiodarone #Seizure disorder - Continue Depakote Pending Studies at Discharge: No Stand-Alone Forms: My [facility] Skilled Items Patient informed of condition?: Yes DNR: No Discharge Level of Care: Skilled Communicable Disease: Yes (Influenza A) Discharge Prognosis: Improving Lines: None Urinary Catheter: No Medications and DC Order Prescriptions: New doxycycline hyclate 100 mg Capsule 100 mg PO BID Qty: 7 0RF cefdinir 300 mg capsule 300 mg PO DAILY 3 Days Qty: 3 0RF Rx Instructions: take in the afternoon/after dialysis Continued Stiolto Respimat 2.5-2.5 mcg/actuation mist 2 puff INH QAM Qty: 4 5RF ipratropium-albuterol 0.5 mg-3 mg(2.5 mg base)/3 mL solution for nebulization 3 ml INHALATION Q4H PRN (Reason: Shortness Of Breath Or Wheezing) Rx Instructions: ALSO LOW 02 SATS epinephrine [EpiPen] 0.3 mg/0.3 mL Auto-Injector 0.3 mg IM Q4H PRN (Reason: Anaphylaxis) divalproex 500 mg tablet,delayed release (DR/EC) 500 mg PO QAM amiodarone 200 mg Tablet 200 mg PO QPM trazodone 50 mg Tablet 50 mg PO HS tramadol 50 mg Tablet 50 mg PO Q6H PRN (Reason: Pain, Moderate) guaifenesin [Mucinex] 1,200 mg Tablet Extended Release 12hr 1,200 mg PO BID PRN (Reason: Congestion) Trinidad-Ancelmo 0.8 mg Tablet 1 tab PO DAILY cinacalcet [Sensipar] 30 mg Tablet 30 mg PO QAM thiamine HCl (vitamin B1) 100 mg tablet 100 mg PO QAM cholecalciferol (vitamin D3) 125 mcg (5,000 unit) capsule 5,000 unit PO QPM Rx Instructions: after supper, if ok with dialysis famotidine 20 mg Tablet 20 mg PO DIRECTED Rx Instructions: TAKES DAILY ON WEDNESDAY, WEDNESDAY, & WEDNESDAY EVENING AFTER DIALYSIS. melatonin 5 mg Tablet 10 mg PO HS acetaminophen 325 mg Tablet 650 mg PO Q4H MDD 3 GRAMS APAP/24 HOURS PRN (Reason: PAIN/FEVER) lidocaine-prilocaine 2.5-2.5 % Cream 1 applic topical UD Rx Instructions: apply to fistula site 1 hour prior to dialysis, wed/wed/wed. ondansetron 4 mg Tablet,Disintegrating 4 mg PO Q6H PRN (Reason: Nausea And Vomiting) Lokelma 5 gram Powder In Packet 5 g PO DIRECTED Rx Instructions: every other day on NON-DIALYSIS days-//wed/sun. Auryxia 210 mg iron tablet 420 mg PO TIDM Rx Instructions: administer with a meal Refresh Classic (PF) 1.4-0.6 % Dropperette 1 drp OPB QID PRN (Reason: Dry Eyes) protein supplement Liquid 30 ea PO BIDM Rx Instructions: 30 ML BIDM bisacodyl 10 mg Suppository 10 mg GA DAILY PRN (Reason: Constipation) midodrine 2.5 mg Tablet 5 mg PO UD Rx Instructions: BID on wed,wed,wednesday midodrine 2.5 mg Tablet 7.5 mg PO .,,WED,WED Rx Instructions: 2.5mg x3 benzocaine 20 % Gel 1 ea MUCOUS MEMBRANE .Q2H PRN (Reason: sore gums) bisacodyl 5 mg Tablet 5 mg PO DAILY PRN (Reason: Constipation) Rx Instructions: give on morning of day 4 menthol-zinc oxide [Calmoseptine] 0.44-20.6 % Ointment 1 applic TOPICAL QID PRN (Reason: Other) menthol-zinc oxide [Calmoseptine] 0.44-20.6 % Ointment 1 applic TOPICAL .EVERY SHIFT Rx Instructions: for 21 days furosemide 40 mg tablet 80 mg PO BID polyethylene glycol 3350 [Miralax] 17 gram/dose powder 17 g PO DAILY fluticasone propionate 50 mcg/actuation spray,suspension 2 spray intranasal HS Rx Instructions: administer into each nostril loratadine [Wal-itin] 10 mg tablet 10 mg PO .Q OTHER DAY Discontinued oseltamivir [Tamiflu] 30 mg Capsule 30 mg PO .WED,WED,WED Rx Instructions: until 09/01 Discharge Orders: Discharge Order (Routine); Ordered 09/02/24 Ordered By: Rupal Lopez Admission Data Admit Date/Time: 08/30/24 14:12 Attending Provider: Trent Christianson Admit Provider: Ramone Gallardo Primary Care Provider: Maximo Taylor Other Providers: Ramone Gallardo; Radha Romo Other Interventions: Discharge Summary Assessment (RN) Last Done: 09/02/24 10:04 Supervising Physician Co-Signing Physician Notes I personally examined the patient and verified all reyes points of history and exam, discussed case, and agree with decision making with Dr Lopez no complaints. feeling well. for SNF today vitals noted nad heent nc at mmm breathing unlabored no accessory muscles good effort skin no rashes no pallor or icterus CAP/influenza - doing well. appears to have had mild metabolic encephalopathy superimposed on dementia but improved. hard to R/O MRSA as causative bacteria for pneumonia given MRSA nares (+) and therefore treating as such w doxy (and cefdinir for more common CAP pathogens) - stable for SNF persistently abnormal CXR - d/w family hard to r/o malignancy as well - they note that with his age/dementia/frailty they would not want to pursue treatment even if something was there, and therefore decline any further w/u or imaging - which seems quite appropriate in his case. DVT proph - SCDs utilzed during his stay Resident Activity Tracking Resident Involvement: Resident Care Provided Care Provided: Adult Hospital Medicine
[2024-09-02 07:46] LABS: Basophils # (auto) 0.09 K/uL (0.00-0.20); Basophils % (auto) 1.5 %; Eosinophils # (auto) 0.24 K/uL (0.00-0.50); Eosinophils % (auto) 4.1 %; Hematocrit (blood only) 39.2 % (42.0-52.0); Hemoglobin 12.6 g/dl (14.0-18.0); Immature Granulocytes # (auto) 0.21 K/uL (0.01-0.20); Immature Granulocytes % (auto) 3.6 %; Lymphocytes # (auto) 0.99 K/uL (1.20-3.40); Mean Corpuscular Hemoglobin 29.9 pg (25.0-34.0); Mean Corpuscular Hgb Conc 32.1 g/dL (32.0-36.0); Mean Corpuscular Volume 93.1 fL (80.0-100.0); Mean Platelet Volume 9.8 fL (9.4-12.4); Monocytes % (auto) 17.2 %; Neutrophils # (auto) 3.29 K/uL (1.40-6.50); Neutrophils % (auto) 56.6 %; Platelet Count 231 K/uL (130-400); RDW Coefficient of Variation 15.1 % (11.5-14.5); Red Blood Count 4.21 M/uL (4.70-6.10); White Blood Count 5.82 K/ul (4.8-10.8)
[2024-09-02 08:02] LABS: BUN Creatinine Ratio 3.4 (10-20); Calcium 10.4 mg/dl (8.6-10.3); Creatinine Clr Calc Pharmacy 11.7 ml/min
[2024-09-02 08:21] VITALS: BP 125/67; RESP 16; TEMP 97.9; O2SAT 92
[2024-09-02] MEDS: MIDODRINE HCL 2.5 MG TAB PO SCH (08:24)
[2024-09-02] MEDS: SODIUM ZIRCONIUM CYCLOSILICATE 10 GM PACKET PO SCH (08:25)
[2024-09-02 09:30] VITALS: PULSE 72
--- NOTE | 2024-09-02 14:15 | Billing Data ---
Date of Service September 02, 2024 Coding Level of Care Code 94639 IN/OBS DISCH 30 MIN/LESS
== END 2024-09-02 12:47 | DRG 177 ==
LOC: ED 11:35 → 2E 14:12 → SUATTDRO 14:12 → 2E 15:53